=== PATIENT | female | born 1935 | race Caucasian/White ===

== ENCOUNTER 2016-04-15 12:54 | Emergency (ER) | payer BC ==
[~2016-04-15] VITALS: Ht 147.3 cm; Wt 66.0 kg
[~2016-04-15 12:54] MED LIST: ACET325T96 PO; ALPR-411 PO; CHOLCAP5 PO; ENAL10TA88 PO; EZET10TA63 PO; HYDR25TA4 PO; INSDGI SC; INSUINJ7 SC; ISOS60TA25 PO; ISR/5 SL; METO-551 PO; PLN5 PO
[2016-04-15 13:02] VITALS: TEMP 36.9; Ht 147.3 cm; Wt 66.0 kg
[2016-04-15] MEDS ORDERED: SODIUM CHLORIDE 0.9% 1000ML 250 ML IV STA (13:19)
[2016-04-15] MEDS ORDERED: SODIUM CHLORIDE 0.9% 1000ML 1,000 ML IV STA (13:19)
--- NOTE | 2016-04-15 13:22 | EMERGENCY ROOM VISIT NOTE ---
History Report prepared by Nayla: Tony Shipley Under the Supervision of: Dr. Damian Torres M.D. First contact with patient: 13:06 Chief Complaint: COUGH Stated Complaint: COUGH, ULCER ON LT FOOT, NOT EATING History of Present Illness The patient is an 81 year old female who presents to the Emergency Room with complaints of a persistent cough that started a few days ago. The patient had an ulcer taken off a toe on her left foot 4 days ago. She was put on Keflex, but the patient says that she has had trouble eating and the antibiotic is making her sick to her stomach. The patient's doctor that operated on her toe told the patient to come here to get her ulcer checked. The patient is concerned that her toe may be infected, causing her other symptoms, which include bad chills and achiness. She gets burning in her chest and throat when she coughs. The patient says her ulcer area is looking better but is still red. She denies any vomiting, diarrhea, fevers, chest pain, or urinary symptoms. The patient has been around a sick family member. Source of History: patient, family Onset: A few days ago Position: other (global - cough) Symptom Intensity: villalpando her chest and throat when she coughs Timing: other (persistent) Associated Symptoms: + chills, No chest pain, No diarrhea, No fevers, No urinary symptoms, No vomiting Note: Associated symptoms: Redness on left toe around area that was operated on. Achiness. Review of Systems See HPI for pertinent positives & negatives. A total of 10 systems reviewed and were otherwise negative. Past Medical & Surgical Medical Problems: (1) Benign hypertension (2) Coronary artery bypass grafting (3) Diabetes mellitus (4) Heart disease (5) Hyperlipidemia (6) Hysterectomy (7) Implantation of cardiac pacemaker (8) Toe surgery Old medical records were reviewed. Nurse's notes were reviewed and I agree with. Family History Family history omitted secondary to age. Social History Smoking Status: Never Smoker Alcohol Use: none Drug Use: none Marital Status: Housing Status: lives alone Occupation Status: retired Current/Historical Medications Scheduled Alprazolam (Xanax), 0.5 MG PO HS Aspirin (Aspirin Ec), 81 MG PO DAILY Cephalexin Monohydrate (Keflex), 500 MG PO BID Cholecalciferol (Vitamin D3), 5,000 UNITS PO DAILY Cyclosporine (Ophth) (Restasis), 1 DROP OPB BID Diclofenac Sodium (Topical) (Voltaren 1% Top Gel), 1 APPLN TOP BID Enalapril (Vasotec), 20 MG PO BID Ezetimibe (Zetia), 10 MG PO DAILY Felodipine (Felodipine ER), 5 MG PO DAILY Hydrochlorothiazide (Hctz), 25 MG PO DAILY Insulin Aspart (Novolog Flexpen), 65 UNITS SC UD Insulin Glargine (Toujeo Solostar), 60 UNITS SC DAILY Isosorbide Mononitrate Ext Rel (Imdur Ext Rel), 60 MG PO QAM Magnesium Oxide (Mag-Ox), 400 MG PO DAILY Metoprolol Tartrate (Lopressor) (Lopressor), 100 MG PO BID Ondasetron Odt (Zofran Odt), 4 MG SL Q6H Oseltamivir (Tamiflu), 75 MG PO BID Scheduled PRN Acetaminophen (Tylenol Extra Strength), 500-1,000 MG PO TID PRN for Pain Allergies Coded Allergies: Carbamazepine (Verified Allergy, Mild, 07/08/11) Macrolides (Verified Allergy, Mild, 07/08/11) Erythromycin (Verified Allergy, Unknown, ., 07/08/11) Physical Exam Vital Signs Date Time Temp Pulse Resp B/P Pulse Ox O2 Delivery O2 Flow Rate FiO2 04/15/16 15:55 64 16 154/60 95 04/15/16 14:48 61 14 167/80 04/15/16 13:43 Room Air 04/15/16 13:02 36.9 66 18 163/78 97 Room Air Physical Exam General: Well developed well nourished non ill appearing older female in no acute distress, breathing comfortably on room air. Normal speech HEENT: Normal cephalic atraumatic. Pupils are equal round and reactive to light. Sclera anicteric. Extraocular movements are intact. Oropharynx is pink with moist mucous membranes. No swelling of the mouth lips or tongue. Neck: Supple with a midline trachea. No meningeal signs or stiffness, no JVD or bruits. No Stridor. Chest: Clear to auscultation bilaterally. No wheezes or rhonchi. No increased work of breathing. Heart: regular rate and rhythm. Abdomen: Soft nontender, nondistended without rebound guarding or rigidity. Extremities: No cyanosis clubbing or edema. No calf tenderness or assymetry. Healing ulcer on tip of second toe, no drainage, minimal pink discoloration of toe only but not foot. Patient states looking much better than previous. Spine/Back. Non tender to palpation. No CVA tenderness Skin: Good turgor without rashes. Neurologic exam: Cranial nerves two through 12 are intact. Motor and sensation are intact and symmetrical throughout. Medical Decision & Procedures ER Provider Diagnostic Interpretation: X-ray results as stated below per interpretation by me and the radiologist: CHEST ONE VIEW PORTABLE CLINICAL HISTORY: Chest pain and. COMPARISON STUDY: Chest radiograph June 27, 2013. FINDINGS: A dual lead left pacemaker and median sternotomy wires are noted. Cardiomediastinal silhouette is stable. Lung volumes are diminished. No pneumothorax or pleural effusion is present. There is no evidence of pulmonary edema. Linear left lower lung opacity is suggestive of atelectasis. IMPRESSION: 1. No acute cardiopulmonary findings. 2. Linear left basilar opacity suggestive of atelectasis. 3. Diminished lung volumes. Electronically signed by: Chase Gage M.D. 04/15/2016 1:43 PM Dictated Date/Time: 04/15/2016 1:42 PM Laboratory Results 04/15/16 13:35 Red Blood Count 4.19, Mean Corpuscular Volume 88.1, Mean Corpuscular Hemoglobin 30.8, Mean Corpuscular Hemoglobin Concent 35.0, Mean Platelet Volume 9.2, Neutrophils (%) (Auto) 67.6, Lymphocytes (%) (Auto) 15.8, Monocytes (%) (Auto) 15.8, Eosinophils (%) (Auto) 0.3, Basophils (%) (Auto) 0.3, Neutrophils # (Auto ) 4.36, Lymphocytes # (Auto) 1.02, Monocytes # (Auto) 1.02, Eosinophils # (Auto ) 0.02, Basophils # (Auto) 0.02 04/15/16 13:35 Test 04/15/16 13:27 04/15/16 13:35 04/15/16 13:41 Influenza Type A Antigen POS for Influ A (NEG) Influenza Type B Antigen Neg for Influ B (NEG) White Blood Count 6.45 K/uL (4.8-10.8) Red Blood Count 4.19 M/uL (4.2-5.4) Hemoglobin 12.9 g/dL (12.0-16.0) Hematocrit 36.9 % (37-47) Mean Corpuscular Volume 88.1 fL (80-100) Mean Corpuscular Hemoglobin 30.8 pg (25-34) Mean Corpuscular Hemoglobin Concent 35.0 g/dl (32-36) Platelet Count 187 K/uL (130-400) Mean Platelet Volume 9.2 fL (7.4-10.4) Neutrophils (%) (Auto) 67.6 % Lymphocytes (%) (Auto) 15.8 % Monocytes (%) (Auto) 15.8 % Eosinophils (%) (Auto) 0.3 % Basophils (%) (Auto) 0.3 % Neutrophils # (Auto) 4.36 K/uL (1.4-6.5) Lymphocytes # (Auto) 1.02 K/uL (1.2-3.4) Monocytes # (Auto) 1.02 K/uL (0.11-0.59) Eosinophils # (Auto) 0.02 K/uL (0-0.5) Basophils # (Auto) 0.02 K/uL (0-0.2) RDW Standard Deviation 42.4 fL (36.4-46.3) RDW Coefficient of Variation 13.2 % (11.5-14.5) Immature Granulocyte % (Auto) 0.2 % Immature Granulocyte # (Auto) 0.01 K/uL (0.00-0.02) Red Blood Cell Morphology Unremarkable Anion Gap 11.0 mmol/L (3-11) Est Creatinine Clear Calc Drug Dose 18.4 ml/min Estimated GFR () 28.0 Estimated GFR (Non- 24.1 BUN/Creatinine Ratio 23.2 (10-20) Calcium Level 9.4 mg/dl (8.5-10.1) Total Bilirubin 0.4 mg/dl (0.2-1) Direct Bilirubin 0.1 mg/dl (0-0.2) Aspartate Amino Transf (AST/SGOT) 39 U/L (15-37) Alanine Aminotransferase (ALT/SGPT) 25 U/L (12-78) Alkaline Phosphatase 23 U/L (45-117) Total Protein 6.7 gm/dl (6.4-8.2) Albumin 3.4 gm/dl (3.4-5.0) Lipase 203 U/L (73-393) Bedside Troponin I 0.000 ng/ml (0-0.045) ZL-Jsp-R-Type Natriuretic Peptide 1703 pg/ml (0-1800) Laboratory studies as stated above per my review. Medications Administered Medications (Trade) Dose Ordered Sig/Haja Route Start Time Stop Time Status Last Admin Dose Admin Sodium Chloride 250 ml @ 999 mls/hr Q16M STAT IV 04/15/16 13:19 04/15/16 13:34 DC 04/15/16 13:42 999 MLS/HR Sodium Chloride (Nss 1000ml) 1,000 ml @ 100 mls/hr Q10H STAT IV 04/15/16 13:19 04/15/16 16:28 DC 04/15/16 13:54 100 MLS/HR Oseltamivir Phosphate (Tamiflu Cap) 75 mg NOW STAT PO 04/15/16 14:41 04/15/16 14:42 DC 04/15/16 14:48 75 MG ECG Indication: other (cough) Rate (beats per minute): 69 Rhythm: other (atrial paced ) Findings: no acute ischemic change, no ectopy, other (RBBB, lateral T-wave abnormality) Change: no significant change (compared to October 24 2013) ED Course 1309: Past medical records reviewed. The patient was evaluated in room C11B, and a complete history and physical examination were performed. 1319: Ordered NSS 1000 ml @ 100 mls/hr IV, NSS 250 ml @ 999 mls/hr IV. 1436: I reevaluated the patient and she is resting comfortably. 1441: Ordered Tamiflu 75 mg PO. 1452: I discussed the patient with Dr. Pate - Podiatry - he agrees with the plan. 1459: I reevaluated the patient and she is resting comfortably. The patient verbally expressed agreement and understanding of the treatment plan. The patient will be discharged. Medical Decision Differential diagnoses include: dehydration, infection, medication side effect, influenza, electrolyte or metabolic abnormality. This patient comes in as described above. She was placed in room C11. She is here after having cough, body aches, and nausea. She recently had surgery on her left toe ulcer. She's been on Keflex which she thinks is upsetting her stomach. On exam, the ulcer seems redone much better and there is no signs of cellulitis. She is resting comfortably. Chest x-ray was unremarkable and does not show any pneumonia or pneumothorax or CHF. Blood work was unremarkable. she's had no evidence of any diabetic emergency. She's had nothing to suggest sepsis. Her influenza did come back positive. I think that she does have flu on top of everything that has been going on lately. She may also have some stomach issues with antibiotics. She feels good and would like to go home. I did discuss this with Dr. Suarez, her phlebotomist medical lab assistant,and he agrees. She is going to see him on Sunday for recheck. I did start her on Tamiflu.first dose is given here as well as prescription. she's to rest and drink plenty fluids. I did give her some Zofran that she can use if needed for nausea to ensure that she is eating and keeping her medications down. She does feels strongly that she wants to go home. She should rest and drink plenty fluids return if :not tolerating fluids, worsening of symptoms, shortness of breath, any new problems concerns. The patient and her daughter happy with the plan and she was discharged home. Consults Time Called: [phone] Consulting Physician: Dr. Pate - Podiatrleah Returned Call: [phone] I discussed the patient with Dr. Herlinda Oh - he agrees with the plan. Impression Primary Impression: Influenza Additional Impression: Dehydration Scribe Attestation The scribe's documentation has been prepared under my direction and personally reviewed by me in its entirety. I confirm that the note above accurately reflects all work, treatment, procedures, and medical decision making performed by me. Departure Information Dispostion Home / Self-Care Prescriptions Oseltamivir (Tamiflu) 75 Mg Cap 75 MG PO BID, #10 CAP Prov: Damian Torres M.D. 04/15/16 Ondasetron Odt (ZOFRAN ODT) 4 Mg Tab 4 MG SL Q6H for Nausea, #15 TAB Prov: Damian Torres M.D. 04/15/16 Referrals RV. Noyola MD (PCP) Forms HOME CARE DOCUMENTATION FORM, IMPORTANT VISIT INFORMATION Patient Instructions A Signature Page, My [facility] Additional Instructions Rest. Drink plenty of fluids. Take food when you take your medications May use Zofran 4 mg under the tongue every 6 hours if needed for nausea or vomiting or upset stomach Use Tamiflu 75 mg twice a daymedication for the flu Continue use your Keflex. Return if: Worsening symptoms shortness of breath, not tolerating fluids, any problems with your surgical sites, any new problems or concerns. Follow-up with your doctor on Sunday for recheck, keep your appointment
[2016-04-15] MEDS ORDERED: ACET-1138 PO (13:41)
[2016-04-15] MEDS ORDERED: CYCL0.052 OPB (13:41)
[2016-04-15] MEDS ORDERED: ASPI81TA28 PO (13:41)
[2016-04-15] MEDS ORDERED: DICL1GEL12 TOP (13:41)
[2016-04-15] MEDS ORDERED: CEPH500C2 PO (13:41)
[2016-04-15] MEDS ORDERED: INSU1.2I SC (13:41)
[2016-04-15] MEDS ORDERED: MAGN400T5 PO (13:41)
[2016-04-15] MEDS ORDERED: METO100T14 PO (13:41)
[2016-04-15] MEDS ORDERED: NVLGI/PEN SC (13:41)
--- NOTE | 2016-04-15 13:45 | DIAGNOSTIC IMAGING REPORT ---
CHEST ONE VIEW PORTABLE CLINICAL HISTORY: Chest pain and. COMPARISON STUDY: Chest radiograph June 27, 2013. FINDINGS: A dual lead left pacemaker and median sternotomy wires are noted. Cardiomediastinal silhouette is stable. Lung volumes are diminished. No pneumothorax or pleural effusion is present. There is no evidence of pulmonary edema. Linear left lower lung opacity is suggestive of atelectasis. IMPRESSION: 1. No acute cardiopulmonary findings. 2. Linear left basilar opacity suggestive of atelectasis. 3. Diminished lung volumes. Electronically signed by: Chase Gage M.D. 04/15/2016 1:43 PM Dictated Date/Time: 04/15/2016 1:42 PM
[2016-04-15 13:50] LABS: HEMATOCRIT 36.9 % (37-47); MEAN CELL VOLUME 88.1 fL (80-100); MEAN CORPUSCULAR HEMOGLOBIN 30.8 pg (25-34); MEAN PLATELET VOLUME 9.2 fL (7.4-10.4); PLATELET COUNT 187 K/uL (130-400); RED BLOOD COUNT 4.19 M/uL (4.2-5.4); WHITE BLOOD COUNT 6.45 K/uL (4.8-10.8)
[2016-04-15 14:09] LABS: BASO % 0.3 %; BASO ABS # 0.02 K/uL (0-0.2); COMPLETE YES; EOS % 0.3 %; IG% 0.2 %; LYMPH % 15.8 %; LYMPH ABS # 1.02 K/uL (1.2-3.4); MONO % 15.8 %; NEUT % 67.6 %
[2016-04-15 14:10] LABS: BUN/CREATININE RATIO 23.2 (10-20); CALCIUM 9.4 mg/dl (8.5-10.1); CREATININE 1.9 mg/dl (0.60-1.20)
[2016-04-15] MEDS ORDERED: OSELTAMIVIR PHOSPHATE 75 MG CAP PO STA (14:41)
[2016-04-15] MEDS ORDERED: OSEL75CA12 PO (15:16)
[2016-04-15] MEDS ORDERED: ONDA4TAB10 SL (15:16)
[2016-04-15 15:55] VITALS: BP 154/60; PULSE 64; O2SAT 95
[2016-08-16] MEDS ORDERED: KFL500 PO (08:43)
[2016-08-16] MEDS ORDERED: INSU1.2I SC (08:43)
[2016-08-16] MEDS ORDERED: FELO5TAB PO (08:43)
[2016-08-16] MEDS ORDERED: ISOS60TA25 PO (08:43)
[2016-08-16] MEDS ORDERED: EZET10TA63 PO (08:43)
[2016-08-16] MEDS ORDERED: CYCL0.052 OP (08:43)
[2016-08-16] MEDS ORDERED: LPR100 PO (08:43)
[2016-08-16] MEDS ORDERED: ENAL1TAB31 PO (08:43)
[2016-08-16] MEDS ORDERED: CHOL500021 PO (08:43)
[2016-08-16] MEDS ORDERED: HYDR25TA4 PO (08:43)
[2016-08-16] MEDS ORDERED: FENO145T26 PO (08:43)
[2016-10-24] MEDS ORDERED: CPR/500 PO (13:52)
== END 2016-04-15 15:57 | disposition home or self-care (01) ==
LOC: C.EDB 12:56 → C.EDC 15:57
DX: J11.1 Influenza due to unidentified influenza virus with other respiratory manifestations (principal); E86.0 Dehydration; R05 Cough; R07.9 Chest pain, unspecified; I10 Essential (primary) hypertension; E11.621 Type 2 diabetes mellitus with foot ulcer; Z95.0 Presence of cardiac pacemaker; Z79.4 Long term (current) use of insulin; Z95.1 Presence of aortocoronary bypass graft

== ENCOUNTER → 2016-07-07 | Outpatient (CLI) | payer BC ==
[~2016-07-07] MED LIST changes: +ACET-1138 PO; -ACET325T96 PO; +ASPI81TA28 PO; +CEPH500C2 PO; +CHOL500021 PO; +CPR/500 PO; +CYCL0.052 OP; +CYCL0.052 OPB; +DICL1GEL12 TOP; +ENAL1TAB31 PO; +FELO5TAB PO; +FENO145T26 PO; -INSDGI SC; +INSU1.2I SC; -INSUINJ7 SC; -ISR/5 SL; +KFL500 PO; +LPR100 PO; +MAGN400T5 PO; -METO-551 PO; +METO100T14 PO; +NVLGI/PEN SC; +ONDA4TAB10 SL; +OSEL75CA12 PO
[2016-07-07 10:04] LABS: ESTIMATED AVERAGE GLUCOSE 183 mg/dl; HA1C FLAG Normal (Normal)
[2016-07-07 10:06] LABS: ALT/SGPT 21 U/L (12-78); AST/SGOT 18 U/L (15-37); BLOOD UREA NITROGEN 37 mg/dl (7-18); CALCIUM 9.3 mg/dl (8.5-10.1); CARBON DIOXIDE 27 mmol/L (21-32); CHLORIDE 107 mmol/L (98-107); GLUCOSE 107 mg/dl (70-99); POTASSIUM 3.9 mmol/L (3.5-5.1); SODIUM 140 mmol/L (136-145)
[2016-07-07 10:17] LABS: ALB/GLOB RATIO 1.1 (0.9-2); ALKALINE PHOSPHATASE 26 U/L (45-117)
[2016-07-07 10:46] LABS: RATIO 2866.7 mcg/mg (0-30.0)
== END | disposition home or self-care (01) ==
LOC: C.LAB1850 08:26
PROVIDERS: ATTEND Internal Medicine
DX: E55.9 Vitamin D deficiency, unspecified (principal); E11.40 Type 2 diabetes mellitus with diabetic neuropathy, unspecified; E83.42 Hypomagnesemia; E11.29 Type 2 diabetes mellitus with other diabetic kidney complication; F41.9 Anxiety disorder, unspecified; R80.9 Proteinuria, unspecified

== ENCOUNTER → 2016-07-17 | Outpatient (CLI) | payer BC ==
--- NOTE | 2016-07-17 16:24 | MAMMOGRAPHY REPORT ---
BILATERAL DIGITAL SCREENING MAMMOGRAM WITH CAD: 07/17/2016 CLINICAL HISTORY: Routine screening. Patient has no complaints. TECHNIQUE: Bilateral CC and MLO views were obtained. Current study was also evaluated with a Comput er Aided Detection (CAD) system. COMPARISON: Comparison is made to exams dated: 07/14/2015 mammogram, 07/07/2013 mammogram, 07/09/2014 ma mmogram, 07/04/2012 mammogram, 07/04/2011 mammogram, and 07/01/2010 mammogram - [facility] enter. BREAST COMPOSITION: The tissue of both breasts is extremely dense, which lowers the sensitivity of mammography. FINDINGS: There are numerous benign rim calcifications bilaterally and stable coarse heterogeneous m icrocalcifications in the right lower inner quadrant, that have been stable dating back to 2007. 2 stable metallic biopsy markers are also identified in the right lower inner middle one third of the breast. No new suspicious mass, architectural distortion or cluster of microcalcifications is seen. IMPRESSION: ACR BI-RADS CATEGORY 1: NEGATIVE There is no mammographic evidence of malignancy. A 1 year screening mammogram is recommended. The p atient will receive written notification of the results. Approximately 10% of breast cancers are not detected with mammography. A negative mammographic repor t should not delay biopsy if a clinically suggestive mass is present. Marli Garcia M.D. ay/:07/17/2016 13:28:55 Content Specialist: Senia LOVE)([place]), [facility] letter sent: Normal 1/2 BI-RADS Code: ACR BI-RADS Category 1: Negative
== END | disposition home or self-care (01) ==
LOC: C.MAMM 10:47
PROVIDERS: ATTEND Internal Medicine
DX: Z12.31 Encounter for screening mammogram for malignant neoplasm of breast (principal)

== ENCOUNTER → 2016-08-22 | Day surgery (SDC) | payer BC ==
[2016-08-16 08:30] VITALS: Ht 147.3 cm; Wt 66.8 kg
[2016-08-19 10:12] LABS: BASO % 1.2 %; BASO ABS # 0.09 K/uL (0-0.2); COMPLETE YES; EOS % 4.1 %; HEMATOCRIT 38.4 % (37-47); IG% 0.3 %; LYMPH % 24.5 %; LYMPH ABS # 1.91 K/uL (1.2-3.4); MEAN CELL VOLUME 87.9 fL (80-100); MEAN CORPUSCULAR HEMOGLOBIN 30.4 pg (25-34); MEAN CORPUSCULAR HGB CONC 34.6 g/dl (32-36); MEAN PLATELET VOLUME 9.1 fL (7.4-10.4); MONO % 7.1 %; NEUT % 62.8 %; PLATELET COUNT 238 K/uL (130-400); RED BLOOD COUNT 4.37 M/uL (4.2-5.4)
[~2016-08-22] VITALS: Ht 147.3 cm; Wt 66.8 kg
[~2016-08-22] MED LIST changes: +ATROPINE SULFATE 0.1 MG/ML 5ML SYR IV PRN; +BACITRACIN 50000 UNIT VIAL ONE; +BUPIVACAINE/EPINEPHRINE 0.5% MPF 1:200,000 30 ML VIAL ONE; +CEFAZOLIN SOD 1000MG/55 ML D5W IV ONE; -CEPH500C2 PO; -CHOLCAP5 PO; -CYCL0.052 OPB; -ENAL10TA88 PO; +EpHEDrine SULFATE INJ 50 MG/ML AMP IV PRN; +FENTANYL CITRATE INJ 50 MCG/1 ML 2 ML VIAL IV PRN; +FENTANYL CITRATE INJ 50 MCG/1 ML 2 ML VIAL ONE; +LACTATED RINGER'S 1000ML 1,000 ML IV SCH; +LIDOCAINE HCL 2% 2 ML VIAL (20MG/ML) ONE; +LIDOCAINE HCL 2% LOCAL 20 ML VIAL ONE; -MAGN400T5 PO; -METO100T14 PO; +MIDAZOLAM HCL 1 MG/ML 2ML VIAL ONE; -ONDA4TAB10 SL; +ONDANSETRON INJ 2 MG/ML 2 ML VIAL IV PRN; -OSEL75CA12 PO; +OXYCODONE/ACETAMINOPHEN 5-325 TAB PO PRN; -PLN5 PO; +PROMETHAZINE HCL INJ 6.25 MG in SODIUM CHLORIDE 0.9% 50ML 50 ML IV PRN; +PROPOFOL IV EMULSION 10 MG/ML 20 ML VIAL IV ONE; +SODIUM CHLORIDE 0.9% 1000ML 1,000 ML IV SCH; +SODIUM CHLORIDE 0.9% INJ 10 ML VIAL ONE
--- NOTE | 2016-08-22 06:48 | History & Physical Bridge - SC ---
H&P Re-Evaluation Bridge Note: I have examined the patient, reviewed the History & Physical and in the interval since the performance of the History & Physical I have NOT noted any changes of clinical significance. Discussed with patient and her daughter any questions concerns. She has not taken her oral antibiotic this AM, and I have ordered Ancef IV. She is a little nervous but otherwise OK.
--- NOTE | 2016-08-22 06:54 | Discharge Instructions-SurgCtr ---
Discharge Instructions Date of Service August 22, 2016. 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 Post Anesthesia Instructions: If you have had General Anesthesia or IV Sedation: * Do not drive today. * Resume driving when surgeon permits. * Do not make important decisions or sign legal documents today. * Call surgeon for: 1. Temperature elevations greater than 101 degrees F. 2. Uncontrollable pain. 3. Excessive bleeding. 4. Persistent nausea and vomiting. 5. Medication intolerance (nausea, vomiting or rash). * For nausea and vomiting use only clear liquids such as: tea, soda, bouillon until nausea subsides, then gradually increase diet as tolerated. * If you have any concerns or questions, call your surgeon's office. If physician is unavailable and it is an emergency, call 911 or go to the nearest emergency room. . Instructions / Follow-Up Instructions / Follow-Up Follow up with Dr Pate next week. See Dr Pate prior instructions provided in the office Diet Recommendations Home Diet: no limitations Fluid Restriction: None Procedures Procedures Performed: Amputation left second digit at the level of the first knuckle ( proximal interphalangeal joint ) Pending Studies Studies pending at discharge: no Medical Emergencies . Who to Call and When: Medical Emergencies: If at any time you feel your situation is an emergency, please call 911 immediately. . Non-Emergent Contact Non-Emergency issues call your: Surgeon Contact Number: [phone] Call Non-Emergent contact if: your pain is not controlled, your pain is unusual for you, you have any medication questions . . "Provider Documentation" section prepared by Xiang Pate. . [place] Drug Monitoring Program Search Results: patient reviewed within database (Rx Percocet provided in office last week and patient status checked at that time), no issues identified (completed in office last week when Rx provided)
--- NOTE | 2016-08-22 06:56 | [facility] Post Operative Brief Note ---
Immediate Operative Summary Operative Date August 22, 2016. Pre-Operative Diagnosis Chronic Diabetic Ulceration and pain, left second toe Post-Operative Diagnosis Same Procedure(s) Performed Amputation left second digit Surgeon Herlinda Stone Breaker Surgeon(s) None Estimated Blood Loss negligible Specimens left second toe at PIPJ disarticulation site Drains none Anesthesia Local block with IV sedatoin Complication(s) None Disposition
[2016-08-22 08:14] VITALS: TEMP 36.3
--- NOTE | 2016-08-22 08:50 | Anesthesia Progress Nt - [facility] ---
Anesthesia Post Op Note Date & Time August 22, 2016 at 08:50 Vital Signs Pain Intensity: 0 Vital Signs Past 12 Hours Date Time Temp Pulse Resp B/P Pulse Ox O2 Delivery O2 Flow Rate FiO2 08/22/16 08:14 36.3 60 16 150/73 99 Room Air 08/22/16 06:53 36.5 64 20 183/75 98 Room Air Notes Mental Status: alert / awake / arousable, participated in evaluation Pt Amnestic to Procedure: Yes Nausea / Vomiting: adequately controlled Pain: adequately controlled Airway Patency, RR, SpO2: stable & adequate BP & HR: stable & adequate Hydration State: stable & adequate Anesthetic Complications: no major complications apparent
[2016-08-22 09:10] VITALS: BP 164/74; PULSE 60; O2SAT 97
--- NOTE | 2016-08-22 09:44 | OPERATIVE REPORT ---
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 POSTOPERATIVE DIAGNOSIS: Same. PROCEDURE: Partial amputation, left second digit through proximal interphalangeal joint (disarticulation amputation). DESCRIPTION OF PROCEDURE: The patient was seen preoperatively with her daughter with no medical changes. She is nervous, but otherwise doing well and has all appropriate clearance. She did not take (correctly) her oral antibiotic this morning and therefore she is given 1 gram Ancef preoperatively and will resume oral antibiotics continuously postoperatively. The patient was taken to the operating room and no ankle tourniquet was used; the foot was identified, marked; prepped after I provided 8 mL of the 50:50 mixture of 0.5% Marcaine with epinephrine and 2% Xylocaine plain, which was infiltrated on a wide local anesthetic proximal block at the forefoot including the intermetatarsal spaces and the base of the second digit (anesthesia was IV sedation). Attention was directed towards the second digit and there are concerns with stress on closure to contracted vessels when a chronic and rigid nature of the distal interphalangeal joint contracture is alos present . The toe was marked with planning to try to have as much proximal healthy soft tissue material for closure as possible based on amputation level. Using a 10 blade, incisions were made plantarly, medially, laterally and dorsally to disarticulate the digit at the proximal interphalangeal joint level, with garth made at the middle phalanx level, and preservation of the long flexor and long extensor tendons. With amputation completed, the head of the proximal phalanx looked clean as did the base of the middle phalanx. The area was copiously irrigated with bacitracin and saline lavage. With inspection, the long plantar and long dorsal tendons were sutured together to cover over the head of the proximal phalanx and create a capsular closure with remaining joint soft tissue . Subcutaneous tissue was then closed also with 3-0 Vicryl and finally skin with 4-0 Ethilon all as interrupted suture stitches Estimated blood loss was negligible, but during intraoperative x-rays (showing clean removal), there was some slight bleeding ooze. This is anticipated in part due to her underlying vascular status and the use of the epinephrine. Dressings included Adaptic, 4 x 4 gauze, Nickie, Kerlix and an Biju bandage and patient is given a surgical shoe. While normally, the patient should not be bearing weight post op due to her advanced age.... Heel pressure will be allowed with her new surgical shoe The patient appeared to tolerate both the anesthesia and the procedure well and will be phoned contacted via the office later today and throughout the weekend and will be scheduled for approximately 1 week checkup. I attest to the content of the Intraoperative Record and any orders documented therein. Any exceptions are noted below. ROSALINDAD
--- NOTE | 2016-08-23 08:48 | DIAGNOSTIC IMAGING REPORT ---
LEFT SECOND TOE 2 VIEWS CLINICAL HISTORY: LEFT SECOND TOE(PROXIMAL INTER PHALANGEAL JOINT/AMPUTATION COMPARISON STUDY: None. FLUOROSCOPY TIME: 5 seconds. FINDINGS: 2 fluoroscopic spot images. There is a amputation at the PIP joint of the second toe. IMPRESSION: Fluoroscopy provided for amputation at the PIP joint of the left second toe. Electronically signed by: Ted Zelaya M.D. 08/23/2016 8:46 AM Dictated Date/Time: 08/23/2016 8:46 AM
== END | disposition home or self-care (01) ==
LOC: X.SURG 06:10
PROVIDERS: ATTEND Podiatrist Primary Podiatric Medicine
DX: L97.529 Non-pressure chronic ulcer of other part of left foot with unspecified severity (principal); M20.42 Other hammer toe(s) (acquired), left foot; E11.621 Type 2 diabetes mellitus with foot ulcer; I10 Essential (primary) hypertension; I25.10 Atherosclerotic heart disease of native coronary artery without angina pectoris; Z95.0 Presence of cardiac pacemaker; Z68.30 Body mass index [BMI] 30.0-30.9, adult; Z79.4 Long term (current) use of insulin; Z89.421 Acquired absence of other right toe(s); Z98.890 Other specified postprocedural states

== ENCOUNTER → 2016-10-02 | Outpatient (CLI) | payer BC ==
[~2016-10-02] MED LIST changes: -ATROPINE SULFATE 0.1 MG/ML 5ML SYR IV PRN; -BACITRACIN 50000 UNIT VIAL ONE; -BUPIVACAINE/EPINEPHRINE 0.5% MPF 1:200,000 30 ML VIAL ONE; -CEFAZOLIN SOD 1000MG/55 ML D5W IV ONE; -EpHEDrine SULFATE INJ 50 MG/ML AMP IV PRN; -FENTANYL CITRATE INJ 50 MCG/1 ML 2 ML VIAL IV PRN; -FENTANYL CITRATE INJ 50 MCG/1 ML 2 ML VIAL ONE; -LACTATED RINGER'S 1000ML 1,000 ML IV SCH; -LIDOCAINE HCL 2% 2 ML VIAL (20MG/ML) ONE; -LIDOCAINE HCL 2% LOCAL 20 ML VIAL ONE; -MIDAZOLAM HCL 1 MG/ML 2ML VIAL ONE; -ONDANSETRON INJ 2 MG/ML 2 ML VIAL IV PRN; -OXYCODONE/ACETAMINOPHEN 5-325 TAB PO PRN; -PROMETHAZINE HCL INJ 6.25 MG in SODIUM CHLORIDE 0.9% 50ML 50 ML IV PRN; -PROPOFOL IV EMULSION 10 MG/ML 20 ML VIAL IV ONE; -SODIUM CHLORIDE 0.9% 1000ML 1,000 ML IV SCH; -SODIUM CHLORIDE 0.9% INJ 10 ML VIAL ONE
== END | disposition home or self-care (01) ==
LOC: C.LABSPEC 17:15
PROVIDERS: ATTEND Podiatrist Primary Podiatric Medicine
DX: L08.9 Local infection of the skin and subcutaneous tissue, unspecified (principal); E11.622 Type 2 diabetes mellitus with other skin ulcer; L97.529 Non-pressure chronic ulcer of other part of left foot with unspecified severity

== ENCOUNTER → 2016-10-06 | Outpatient (CLI) | payer BC ==
--- NOTE | 2016-10-06 13:36 | DIAGNOSTIC IMAGING REPORT ---
LEFT TOE(S) MIN 2 VIEWS CLINICAL HISTORY: L08.9 Toe [id number] COMPARISON: None. DISCUSSION: Evidence for resection of the middle and distal phalanges of the second toe. Soft tissue edema about the distal phalanges of the third toe. No acute bony antibody. Cortical margins appear to be intact. IMPRESSION: Soft tissue edema overlying the left third toe. No evidence for osteomyelitis at the current time. Electronically signed by: Juan C Ruiz M.D. 10/06/2016 1:35 PM Dictated Date/Time: 10/06/2016 1:34 PM
[2016-10-06 14:45] LABS: BASO % 0.5 %; BASO ABS # 0.05 K/uL (0-0.2); COMPLETE YES; EOS % 1.8 %; HEMATOCRIT 33.6 % (37-47); IG% 0.4 %; LYMPH % 13.4 %; LYMPH ABS # 1.42 K/uL (1.2-3.4); MEAN CELL VOLUME 88.2 fL (80-100); MEAN CORPUSCULAR HEMOGLOBIN 30.7 pg (25-34); MEAN CORPUSCULAR HGB CONC 34.8 g/dl (32-36); MEAN PLATELET VOLUME 9.4 fL (7.4-10.4); MONO % 5.6 %; NEUT % 78.3 %; PLATELET COUNT 268 K/uL (130-400); RED BLOOD COUNT 3.81 M/uL (4.2-5.4); WHITE BLOOD COUNT 10.57 K/uL (4.8-10.8)
[2016-10-06 15:14] LABS: ALT/SGPT 21 U/L (12-78); AST/SGOT 19 U/L (15-37); BLOOD UREA NITROGEN 50 mg/dl (7-18); BUN/CREATININE RATIO 26.4 (10-20); CALCIUM 9.3 mg/dl (8.5-10.1); CARBON DIOXIDE 23 mmol/L (21-32); CHLORIDE 107 mmol/L (98-107); GLUCOSE 193 mg/dl (70-99); POTASSIUM 4.3 mmol/L (3.5-5.1); SODIUM 139 mmol/L (136-145)
[2016-10-06 15:15] LABS: ALB/GLOB RATIO 0.9 (0.9-2); ALKALINE PHOSPHATASE 28 U/L (45-117)
[2016-10-07 05:56] LABS: ESTIMATED AVERAGE GLUCOSE 183 mg/dl; HA1C FLAG Normal (Normal)
--- NOTE | 2016-10-11 13:27 | CODING QUERY MEDICAL NECESSITY ---
CQSUPPORTING DIAGNOSIS NEEDED A supporting diagnosis is required for the test/procedure performed on this patient in order for us to be reimbursed by the patient's insurance. Please provide a supporting diagnosis for the following test/procedure listed below next to the test name along with your signature. *If there is no additional diagnosis for this patient that would support the following test/procedure please document that below next to the test/procedure. Test(s)/Procedure(s) that require a supporting diagnosis: DOS 10/06/16 GLYCATED HEMOGLOBIN TEST Provider Signature: Date: Thank you Crissy Kothari Health Information Management Once completed, please kindly fax back to [phone] For questions please call [phone]
== END | disposition home or self-care (01) ==
LOC: C.RAD1850 12:37
PROVIDERS: ATTEND Internal Medicine
DX: L08.9 Local infection of the skin and subcutaneous tissue, unspecified (principal); R20.1 Hypoesthesia of skin; E11.40 Type 2 diabetes mellitus with diabetic neuropathy, unspecified

== ENCOUNTER → 2016-10-26 | Outpatient (CLI) | payer BC ==
[~2016-10-26] MED LIST changes: -KFL500 PO
== END | disposition home or self-care (01) ==
LOC: C.LABSPEC 14:27
PROVIDERS: ATTEND Internal Medicine Infectious Disease
DX: L08.9 Local infection of the skin and subcutaneous tissue, unspecified (principal)

== ENCOUNTER → 2016-11-03 | Outpatient (CLI) | payer BC ==
[2016-11-03 12:23] LABS: BASO % 1.3 %; BASO ABS # 0.11 K/uL (0-0.2); COMPLETE YES; EOS % 9.8 %; HEMATOCRIT 34.3 % (37-47); IG% 0.4 %; LYMPH % 17.3 %; LYMPH ABS # 1.42 K/uL (1.2-3.4); MEAN CELL VOLUME 88.4 fL (80-100); MEAN CORPUSCULAR HEMOGLOBIN 30.2 pg (25-34); MEAN CORPUSCULAR HGB CONC 34.1 g/dl (32-36); MEAN PLATELET VOLUME 9.1 fL (7.4-10.4); MONO % 10.5 %; NEUT % 60.7 %; PLATELET COUNT 290 K/uL (130-400); RED BLOOD COUNT 3.88 M/uL (4.2-5.4)
[2016-11-03 12:53] LABS: ALT/SGPT 19 U/L (12-78); AST/SGOT 17 U/L (15-37); BLOOD UREA NITROGEN 44 mg/dl (7-18); BUN/CREATININE RATIO 22.2 (10-20); CALCIUM 9.5 mg/dl (8.5-10.1); CARBON DIOXIDE 25 mmol/L (21-32); CHLORIDE 110 mmol/L (98-107); GLUCOSE 169 mg/dl (70-99); POTASSIUM 4.7 mmol/L (3.5-5.1); SODIUM 141 mmol/L (136-145)
[2016-11-03 12:56] LABS: ALB/GLOB RATIO 1.1 (0.9-2); ALKALINE PHOSPHATASE 25 U/L (45-117)
== END | disposition home or self-care (01) ==
LOC: C.LAB1850 10:30
PROVIDERS: ATTEND Podiatrist Primary Podiatric Medicine
DX: Z01.812 Encounter for preprocedural laboratory examination (principal)

== ENCOUNTER → 2016-11-08 | Day surgery (SDC) | payer BC ==
[2016-10-24 13:54] VITALS: Ht 147.3 cm; Wt 66.4 kg
[~2016-11-08] VITALS: Ht 147.3 cm; Wt 66.4 kg
[~2016-11-08] MED LIST changes: +ATROPINE SULFATE 0.1 MG/ML 5ML SYR IV PRN; +BACITRACIN 50000 UNIT VIAL ONE; +BUPIVACAINE 0.5 % 5 MG/1 ML PF 10ML VIAL ONE; +BUPIVACAINE/EPINEPHRINE 0.5% MPF 1:200,000 10 ML VIAL ONE; +EpHEDrine SULFATE INJ 50 MG/ML AMP IV PRN; +EpHEDrine SULFATE INJ 50 MG/ML AMP ONE; +FENTANYL CITRATE INJ 50 MCG/1 ML 2 ML VIAL IV PRN; +FENTANYL CITRATE INJ 50 MCG/1 ML 2 ML VIAL ONE; +LACTATED RINGER'S 1000ML 1,000 ML IV SCH; +LIDOCAINE HCL 2% 2 ML VIAL (20MG/ML) ONE; +LIDOCAINE HCL 2% LOCAL 20 ML VIAL ONE; +MIDAZOLAM HCL 1 MG/ML 2ML VIAL ONE; +ONDANSETRON INJ 2 MG/ML 2 ML VIAL IV PRN; +PROPOFOL IV EMULSION 10 MG/ML 20 ML VIAL IV ONE; +SODIUM CHLORIDE 0.9% 1000ML 1,000 ML IV SCH; +SODIUM CHLORIDE 0.9% INJ 10 ML VIAL ONE
--- NOTE | 2016-11-08 07:03 | History & Physical Bridge - SC ---
H&P Re-Evaluation Bridge Note: I have examined the patient, reviewed the History & Physical and in the interval since the performance of the History & Physical . Patient is feeling well, took her two AM meds without water , feeling fine and slept well and BS 81 this AM here. Daughter in room and will orange picker machine operator Cipro refill on the way home. No questions and will procedure with planned procedures No changes noted
--- NOTE | 2016-11-08 08:54 | [facility] Post Operative Brief Note ---
Immediate Operative Summary Operative Date Nov 08, 2016. Pre-Operative Diagnosis Diabetic Foot Ulcer Left 3rd Toe, Hammertoe Left 4th Toe, varus left fifth toe Post-Operative Diagnosis Same Procedure(s) Performed Left Third Toe Amputation at PIPJ, Left Fourth Toe Hammertoe Repair, Left Fifth Toe Arthroplasty Surgeon Dr. Pate Binder Sorter Surgeon(s) None Estimated Blood Loss 3 mL Findings infection appears lisited to distal left 3rd toe, distal to level of the DIPJ without ankle tournequet, limited bleeding Fluids (cc crystalloids) N/A Specimens A. Distal Amputation DIPJ Left 3rd Toe -- evaluate for osteomyelitis B. Middle Phalanx Left 3rd Toe C. Left 4th and 5th Head of Proximal Phalanges Drains none Anesthesia IV sedation with podiatric foot block Complication(s) None Disposition Recovery Room / PACU when stable patient to be discharged to home
[2016-11-08 08:57] VITALS: TEMP 36.2
--- NOTE | 2016-11-08 09:04 | Discharge Instructions-SurgCtr ---
Discharge Instructions Date of Service Nov 08, 2016. Visit Reason for Visit: Left Foot T2 Diabetic Ulcer Discharge Discharge Diagnosis / Problem: Diabetic ulceration left third distal toe , with digital deformities toes Discharge Goals Goal(s): Decrease discomfort, Improve function, Improve disease control, Prevent Disease Progression Medications Stopped Medications Name(s): none Restart Stopped Medication(s): restart all previous medications including Cipro Activity Recommendations Activity Limitations: per Instructions/Follow-up section Lifting Limitations: no more than 5 pounds Exercise/Sports Limitations: rest today, until after follow-up appointment Shower/Bathe: keep incision dry Driving or Machine Use: Weightbearing Status: Left partial, Left non-weightbearing Anesthesia . Post Anesthesia Instructions: If you have had General Anesthesia or IV Sedation: * Do not drive today. * Resume driving when surgeon permits. * Do not make important decisions or sign legal documents today. * Call surgeon for: 1. Temperature elevations greater than 101 degrees F. 2. Uncontrollable pain. 3. Excessive bleeding. 4. Persistent nausea and vomiting. 5. Medication intolerance (nausea, vomiting or rash). * For nausea and vomiting use only clear liquids such as: tea, soda, bouillon until nausea subsides, then gradually increase diet as tolerated. * If you have any concerns or questions, call your surgeon's office. If physician is unavailable and it is an emergency, call 911 or go to the nearest emergency room. . Instructions / Follow-Up Instructions / Follow-Up review post op instructions provided from office, and which surgical center may also provide first post op visit November 15 PAIN AND MEDICATIONS: * Following any surgery, it is common to expect varying degrees of pain. The amount of pain depends on the type of surgery and an individual person's pain tolerance. * Today, your surgery was performed with the ability for you to return home the same day. This means that the amount and type of pain you will experience can be managed by appropriate oral medications and post- operative care. * Typically, you will be given a narcotic (such as Percocet or Tylenol No. 3 Codeine) to take as needed every four to six hours for moderate to severe pain. You often will be given an anti-inflammatory medicine (like Motrin/Ibuprofen/ Naprosyn) which you take whether or not you think you need it. Each may have side effects, so please discuss these with us or your pharmacist if you have any questions. * Do not be afraid to take any pain pills as they are prescribed to you. * You will not become "addicted" to them during the initial post-operative days. In fact, the first evening and the next day (after surgery), it is better to take pain pills as prescribed when you first begin to notice initial discomfort, rather than waiting until the pain is severe. DIET: * As with most medications, it is better not to take pain medications "on an empty stomach". Also, the first day, it is better to eat smaller portions more often than huge meals (even if you feel starved since not eating since the previous night). * Drink plenty of fluids * NO ALCOHOL * It is best to avoid caffeine (in coffee and many sodas). * NO SMOKING. SPECIAL CARE INSTRUCTIONS: BANDAGE CARE: * Your bandages must be kept dry. During the first day(s), it is better not to attempt to bathe or shower since the bandage could accidentally become wet and that may lead to an infection. * Even after your first post-operative visit to the office (generally within a few days), you will still need to be careful to protect the bandages, especially if you are unsteady on the foot or if you are still not allowed to put full weight on the foot. * As a reminder, when using an ice pack, be certain it is in a leak-proof bag or a light paper towel covering. BLEEDING: * Bleeding through the bandages can be frightening, however, it is not uncommon. In fact, sometimes what appears to be blood is actually some of the medications, such as Betadine, that the gauze bandages were soaked in before they were placed on your foot. Even if there is truly bleeding, the gauze tends to absorb the blood and makes it appear to spread out and look worse than it actually is. * Nonetheless, report any bleeding to Dr. Pate's office when we call you the night of surgery and the following day. You can also karthikeyan the boundary with a pen to be able to report its progression. Do not remove your bandages on your own. SWELLING: * Swelling (edema) can tighten a bandage excessively. NEVER remove or cut at the dressing unless instructed to do so. Elevate the foot and knee and apply ice as directed (do not let leg hang down when seated). If you are in a car, it is helpful to be in the back seat with a seat belt on and the leg up on the seat. You should not be driving! MISCELLANEOUS INSTRUCTIONS: Always remember, if you have any questions, DO NOT HESITATE TO ASK staff where your surgery was performed or call my office . In order for us to evaluate your condition better, we ask that you please keep track of the following: * Please keep a list of your oral temperature and times that it was taken. Oral temperature can fluctuate a lot after surgery. We want to know whenever it is above 100.5 degrees F, but even then, there may not be a reason to worry, depending on the circumstances. Do not take your temperature after drinking hot or cold liquids. * Keep a list of the time and amount of medicines you took and any unusual symptoms. * Let us know if you have any problems with urinary output or constipation. * Write down when you think the "numbing medicine" wore off. * If you have any mishaps, write down the circumstances and if there is a change in the amount of pain you have experienced. FOLLOW UP VISIT: If not already scheduled, please call the office at to schedule a follow-up appointment. Diet Recommendations Home Diet: resume previous diet Fluid Restriction: None Procedures Procedures Performed: Left Third Toe Amputation at PIPJ, Left Fourth Toe Hammertoe Repair, Left Fifth Toe Arthroplasty Pending Studies Studies pending at discharge: no Work Instructions Return To Work: after follow-up Additional Instructions: not applicable School Instructions Additional Instructions: Not applicable Medical Emergencies . Who to Call and When: Medical Emergencies: If at any time you feel your situation is an emergency, please call 911 immediately. . Non-Emergent Contact Non-Emergency issues call your: Surgeon Contact Number: [phone] . . "Provider Documentation" section prepared by Xiang Pate. . [place] Drug Monitoring Program Search Results: see additional documentation (no new narcotic Rx provided at this time)
--- NOTE | 2016-11-08 09:29 | DIAGNOSTIC IMAGING REPORT ---
LEFT FOOT 2 VIEWS CLINICAL HISTORY: LEFT FIFTH TOE HAMMERTOE REPAIR, LEFT 5TH POSSIBLE ARTHROPLASTY COMPARISON STUDY: Left third toe 10/06/2016. FINDINGS: There is mild diffuse soft tissue swelling. No acute fractures identified. Cervical within the medial ankle. Degenerative/neuropathic changes are seen within the midfoot. Amputation at the PIP joints of the second and third toes. Deformity of the PIP joint of the fifth toe may be due to postoperative change. Of note, the fourth and fifth toes are suboptimally evaluated due to patient positioning. IMPRESSION: Interval partial amputation of the left third toe. Deformity at the PIP joint of the left fifth toe may be due to postoperative change. Electronically signed by: Ted Zelaya M.D. 11/08/2016 9:28 AM Dictated Date/Time: 11/08/2016 9:20 AM
--- NOTE | 2016-11-08 09:32 | Anesthesiology Progress Note ---
Anesthesia Post Op Note Date & Time Nov 08, 2016 at 09:31 Vital Signs Pain Intensity: 0 Vital Signs Past 12 Hours Date Time Temp Pulse Resp B/P (MAP) Pulse Ox O2 Delivery O2 Flow Rate FiO2 11/08/16 08:57 36.2 60 20 142/74 (96) 97 Room Air 11/08/16 06:29 36.6 61 16 189/78 (115) 99 Room Air Notes Mental Status: alert / awake / arousable, participated in evaluation Pt Amnestic to Procedure: Yes Nausea / Vomiting: adequately controlled Pain: adequately controlled Airway Patency, RR, SpO2: stable & adequate BP & HR: stable & adequate Hydration State: stable & adequate Anesthetic Complications: no major complications apparent
--- NOTE | 2016-11-08 09:44 | OPERATIVE REPORT ---
DATE OF OPERATION: 11/08/2016 PREOPERATIVE DIAGNOSES: 1. Nonhealing diabetic ulcer on the tip of the left third rigid hammertoe deformity. 2. Hammertoe, left fourth digit. 3. Adductovarus deformity left fifth toe. POSTOPERATIVE DIAGNOSIS: Same. PROCEDURES: 1. Amputation of the left third digit at the level of the distal interphalangeal joint. 2. Hammertoe repair, left fourth toe. 3. Arthroplasty, left fifth digit. SURGEON: Dr. Pate. OPERATION AND FINDINGS: DESCRIPTION OF PROCEDURE: The patient was seen preoperatively with her daughter and a bridge note confirms her stable presentation for today's procedure. She was brought into the operating room and placed supine on the operative table. Local anesthetic block of 12 mL 50:50 mixture of 0.5% Marcaine with epinephrine and 2% Xylocaine plain was used to affect anesthesia to the left forefoot . No tourniquet was used. After appropriate prep and drape, attention was directed to the third digit where first the toe was disarticulated at the level of the DIPJ and that specimen sent for pathology evaluation. Inspecting the digital length pattern it was determined best to also remove this digit at the PIPJ level so the middle phalanx was also removed. After copious irrigation with bacitracin and saline the digit was sutured with 3-0 Vicryl and 4-0 Ethilon. NOTE: After the third toe procedure the entire field was removed of instrumentations, redraped and reprepped so that when the procedure was done on the 4th and 5th digits this was starting a new without any chance of infection carry over on instruments or the field itself. HAMMERTOE REPAIR LEFT FOURTH DIGIT AND ARTHROPLASTY LEFT FIFTH DIGIT The incisions were first made over the fourth and fifth digits with the fifth digit being in an oblique fashion so that when the skin was closed the digit would be pulled more so out of varus. Deepening with a 15 blade joint capsule at the level of the pipj was identified. Collateral ligaments were incised and the head of the proximal phalanges of each delivered into the operating field. Using a small power saw, the heads of these two proximal phalanges were removed , and a rongeur was used to smooth the edges and again copiously irrigated with bacitracin in saline. Tendons were reapproximated with 3-0 Vicryl as well as capsular and subcutaneous tissue and skin was closed with 4-0 Ethilon. Bleeding was minimal, about 1 mL to each toe. Toe color remained good after suturing. Dressings included Adaptic, Kerlix and Nickie, Biju bandage and a new open toed surgical shoe. X-rays were taken post-procedure in recovery room to document the procedure and she appeared to tolerate the anesthesia and procedure well. I attest to the content of the Intraoperative Record and any orders documented therein. Any exceptions are noted below. ROSALINDAD
[2016-11-08 10:00] VITALS: BP 183/73; PULSE 60; O2SAT 95
== END | disposition home or self-care (01) ==
LOC: X.SURG 06:07
PROVIDERS: ATTEND Podiatrist Primary Podiatric Medicine
DX: E11.621 Type 2 diabetes mellitus with foot ulcer (principal); L97.529 Non-pressure chronic ulcer of other part of left foot with unspecified severity; L08.9 Local infection of the skin and subcutaneous tissue, unspecified; M20.42 Other hammer toe(s) (acquired), left foot

== ENCOUNTER → 2017-02-05 | Outpatient (CLI) | payer BC ==
[~2017-02-05] MED LIST changes: -ATROPINE SULFATE 0.1 MG/ML 5ML SYR IV PRN; -BACITRACIN 50000 UNIT VIAL ONE; -BUPIVACAINE 0.5 % 5 MG/1 ML PF 10ML VIAL ONE; -BUPIVACAINE/EPINEPHRINE 0.5% MPF 1:200,000 10 ML VIAL ONE; -EpHEDrine SULFATE INJ 50 MG/ML AMP IV PRN; -EpHEDrine SULFATE INJ 50 MG/ML AMP ONE; -FENTANYL CITRATE INJ 50 MCG/1 ML 2 ML VIAL IV PRN; -FENTANYL CITRATE INJ 50 MCG/1 ML 2 ML VIAL ONE; -LACTATED RINGER'S 1000ML 1,000 ML IV SCH; -LIDOCAINE HCL 2% 2 ML VIAL (20MG/ML) ONE; -LIDOCAINE HCL 2% LOCAL 20 ML VIAL ONE; -MIDAZOLAM HCL 1 MG/ML 2ML VIAL ONE; -ONDANSETRON INJ 2 MG/ML 2 ML VIAL IV PRN; -PROPOFOL IV EMULSION 10 MG/ML 20 ML VIAL IV ONE; -SODIUM CHLORIDE 0.9% 1000ML 1,000 ML IV SCH; -SODIUM CHLORIDE 0.9% INJ 10 ML VIAL ONE
[2017-02-05 14:01] LABS: BLOOD UREA NITROGEN 37 mg/dl (7-18); BUN/CREATININE RATIO 20.7 (10-20); CALCIUM 9.4 mg/dl (8.5-10.1); CARBON DIOXIDE 23 mmol/L (21-32); CHLORIDE 108 mmol/L (98-107); CREATININE 1.76 mg/dl (0.60-1.20); GLUCOSE 86 mg/dl (70-99); POTASSIUM 4.2 mmol/L (3.5-5.1); SODIUM 140 mmol/L (136-145)
== END | disposition home or self-care (01) ==
LOC: C.LAB1850 11:35
PROVIDERS: ATTEND Internal Medicine
DX: I25.10 Atherosclerotic heart disease of native coronary artery without angina pectoris (principal)

== ENCOUNTER 2017-04-04 19:27 | Inpatient (IN) | payer BC, OTHER ==
[~2017-04-04] VITALS: Ht 147.3 cm; Wt 72.6 kg
[~2017-04-04 19:27] MED LIST changes: -AMOX875T PO; -APR50 PO; -CEFD1CAP14 PO; -CEFU250T15 PO; -DOXY-300 PO; -FAMO1TAB47 PO; -FAMO20TA11 PO; -FELO10TA2 PO; -FLUO5CRE TOP; -FURO-85 PO; -HYDR-4717 PO; -INSDGIPEN SC; -INSU1.2I SQ; -IPRA-64 INH; -LABE200T5 PO; -LBT200 PO; -MELA1TAB5 PO; -NOVOLOG SQ; -NUTR-7 PO; -NVLGIPEN SC; -OMEG10002 PO; -OXYC-57 PO; -PLN5 PO; -SENNTAB23 PO; -SPIR25TA6 PO; -SRQ25 PO; -VANC1SUS PO; -VANC5CAP PO
[2017-04-04 20:30] LABS: BASO % 1.2 %; BASO ABS # 0.11 K/uL (0-0.2); EOS % 4.5 %; EOS ABS # 0.41 K/uL (0-0.5); HEMATOCRIT 31.9 % (37-47); HEMOGLOBIN 11.8 g/dL (12.0-16.0); IG# 0.02 K/uL (0.00-0.02); LYMPH % 22.3 %; LYMPH ABS # 2.05 K/uL (1.2-3.4); MEAN CELL VOLUME 85.5 fL (80-100); MEAN CORPUSCULAR HEMOGLOBIN 31.6 pg (25-34); MEAN PLATELET VOLUME 9.1 fL (7.4-10.4); MONO % 7.8 %; MONO ABS # 0.72 K/uL (0.11-0.59); NEUT ABS # 5.88 K/uL (1.4-6.5); PLATELET COUNT 227 K/uL (130-400); RED CELL DISTRIBUTION WIDTH CV 13.4 % (11.5-14.5); RED CELL DISTRIBUTION WIDTH SD 41.3 fL (36.4-46.3); WHITE BLOOD COUNT 9.19 K/uL (4.8-10.8)
[2017-04-04] MEDS ORDERED: FLUO5CRE TOP (20:32)
[2017-04-04] MEDS ORDERED: OMEG10002 PO (20:32)
[2017-04-04] MEDS ORDERED: FURO-85 PO (20:36)
[2017-04-04 20:50] LABS: ALBUMIN 3.1 gm/dl (3.4-5.0); ALT/SGPT 20 U/L (12-78); BLOOD UREA NITROGEN 61 mg/dl (7-18); CALCIUM 8.8 mg/dl (8.5-10.1); CARBON DIOXIDE 24 mmol/L (21-32); CREATININE 2.65 mg/dl (0.60-1.20); GLUCOSE 196 mg/dl (70-99); LIPASE 315 U/L (73-393); POTASSIUM 3.7 mmol/L (3.5-5.1); SODIUM 138 mmol/L (136-145)
[2017-04-04 20:53] LABS: ALKALINE PHOSPHATASE 48 U/L (45-117); AST/SGOT 20 U/L (15-37); TOTAL PROTEIN 6.9 gm/dl (6.4-8.2)
--- NOTE | 2017-04-04 21:10 | DIAGNOSTIC IMAGING REPORT ---
CT SCAN OF THE ABDOMEN AND PELVIS WITHOUT IV CONTRAST CLINICAL HISTORY: Left-sided abdominal pain. COMPARISON STUDY: Abdominal CT dated 10/23/2013. TECHNIQUE: CT scan of the abdomen and pelvis is performed from the lung bases to the proximal femora. Images are reviewed in the axial, sagittal, and coronal planes. IV contrast was not administered for this examination as per the referring clinician. Note that the examination was performed in suboptimal fashion without oral and IV contrast. A dose lowering technique was utilized adhering to the principles of ALARA. CT DOSE: 1102.03 mGy.cm FINDINGS: Lung bases: The heart is enlarged and without pericardial effusion. Pacemaker leads are noted. The patient is status post midline sternotomy. The coronary arteries are densely calcified. There is bibasilar scarring versus atelectasis. No airspace consolidation or pleural effusion is seen. Liver: The unenhanced liver is normal in size, contour, and attenuation. There is no intrahepatic biliary ductal dilatation. Gallbladder: There are numerous calcified gallstones. There is no CT evidence of acute cholecystitis. Spleen: Normal in size and attenuation. Pancreas: The unenhanced pancreas is moderately atrophic and grossly unremarkable. Adrenal glands: Unremarkable. Kidneys: The unenhanced kidneys demonstrate cortical atrophy and are without hydronephrosis. There are no renal calculi identified. A 1.9 cm cyst arises from the right kidney. Abdominal vasculature: The abdominal aorta is normal in course and caliber noting moderate to advanced atherosclerotic calcification. Bowel: There is moderate diverticulosis of the right colon without CT evidence of acute diverticulitis. No bowel obstruction is seen. The appendix is well-visualized and normal. Peritoneum: There is no intraperitoneal free air or abdominal ascites. There is a small fat-containing umbilical hernia. Foci of induration throughout the ventral abdominal fat are likely related to septation is injections. Lymphadenopathy: None. Pelvic viscera: The bladder is decompressed and a Dangelo catheter. Foci of intraluminal gas are likely related to instrumentation. Bladder wall thickening is questioned. The uterus is surgically absent. No adnexal lesion is seen. There is a small fat-containing right inguinal hernia. Findings suggest pelvic floor prolapse. Skeletal structures: The skeletal structures are osteopenic. There is moderate to advanced lumbar sacral spondylosis and scoliosis. A disc herniation is seen at L4-L5. No lytic or blastic lesions are seen. IMPRESSION: 1. Suboptimal examination without oral and IV contrast. 2. The bladder is decompressed around a Dangelo catheter. Foci of intraluminal gas are likely related to instrumentation. Mild bladder wall thickening is questioned. Correlation with urinalysis will be required. 3. Cholelithiasis without CT evidence of acute cholecystitis. 4. Cardiomegaly. 5. There is diverticulosis of the right colon without CT evidence of acute diverticulitis. 6. Additional findings as above. Electronically signed by: William Villanueva M.D. 04/04/2017 9:09 PM Dictated Date/Time: 04/04/2017 8:58 PM
--- NOTE | 2017-04-04 23:02 | History and Physical ---
History & Physical Date & Time of Service: Apr 04, 2017 at 23:02 Chief Complaint: Doc Reffered In For Abnormal Blood Work Primary Care Physician: RV. Noyola MD History of Present Illness Source: patient, family, hospital records The patient is an 82-year-old female who presents to the emergency department after being referred by her outpatient physician due to worsening laboratories associated with increasing diuretic use for lower extremity edema. She's had left back pain, chills, intermittent headaches, dyspnea on exertion and persistent swelling of her legs. She does note that her leg swelling has decreased since her last increase in diuretic. She reports difficulty urinating but does not have burning, frequency or blood in urine. Past Medical/Surgical History Medical Problems: (1) Benign hypertension Status: Chronic (2) Coronary artery bypass grafting Status: Resolved (3) Diabetes mellitus Status: Chronic (4) Heart disease Status: Chronic (5) Hyperlipidemia Status: Chronic (6) Hysterectomy Status: Resolved (7) Implantation of cardiac pacemaker Status: Resolved (8) Toe surgery Status: Resolved Family History Patient reports no known family medical history. Social History Smoking Status: Never Smoker Smokeless Tobacco Use: No Alcohol Use: none Drug Use: none Marital Status: Housing status: lives with family Occupational Status: retired Immunizations History of Influenza Vaccine: N/A History of Tetanus Vaccine?: Yes History of Pneumococcal: Yes History of Hepatitis B Vaccine: No Multi-Drug Resistant Organisms History of MDRO: No Allergies Coded Allergies: Carbamazepine (Verified Allergy, Intermediate, RASH, 04/04/17) Carvedilol (Verified Allergy, Intermediate, DIZZINESS, VISUAL DISTURBANCES , 04/04/17) Erythromycin (Verified Allergy, Intermediate, RASH, 04/04/17) Macrolides (Verified Allergy, Intermediate, RASH, 04/04/17) Statins (Verified Adverse Reaction, Intermediate, MUSCLE ACHES, 04/04/17) Home Medications Scheduled Alprazolam (Xanax), 0.5 MG PO HS Aspirin (Aspirin Ec), 81 MG PO QAM Cholecalciferol (Vitamin D3), 1 TAB PO QDL Cyclosporine (Ophth) (Restasis), 1 DROP OP BID Diclofenac Sodium (Topical) (Voltaren 1% Top Gel), 1 APPLN TOP BID Enalapril Maleate (Vasotec), 1 TAB PO BID Ezetimibe (Zetia), 10 MG PO QAM Felodipine (Plendil), 7.5 MG PO QAM Fluorouracil (Topical) (Efudex), 1 APPLN TOP BID Furosemide (Lasix), 20 MG PO DAILY Insulin Aspart (Novolog Flexpen), 1 DOSE SC UD Insulin Glargine (Toujeo Solostar), 62 UNITS SC QPM @ 2100 Isosorbide Mononitrate Ext Rel (Imdur Ext Rel), 60 MG PO QAM Metoprolol Tartrate (Metoprolol Tartrate), 1 TAB PO BID [place]-3 Fatty Acids (Fish Oil), 1,000 MG PO DAILY Scheduled PRN Acetaminophen (Tylenol Extra Strength), 500-1,000 MG PO TID PRN for Pain Review of Systems The patient denies chest pain, palpitations, cough, vision change, hearing change, sore throat, fevers, chills, sweats, weight change, fatigue, nausea, vomiting, diarrhea or constipation, blood in stool, lightheadedness, dizziness, loss of consciousness, rash, abnormal bruising or bleeding, imbalance, focal weakness, numbness or tingling in arms or legs, generalized arthralgias or myalgias, neck pain, or night sweats. The review of systems is otherwise negative other than for that already noted above, and at least 10 systems have been reviewed. Physical Exam Vital Signs Date Time Temp Pulse Resp B/P (MAP) Pulse Ox O2 Delivery O2 Flow Rate FiO2 04/04/17 21:45 60 184/79 97 Room Air 04/04/17 19:33 36.6 65 18 212/75 97 The patient is awake, well-developed and adequately nourished, alert and oriented 3, normocephalic and atraumatic, lying in bed and in no acute distress. HEENT--PERRL, EOMI, mucous membranes and oropharynx dry. Neck--supple, no JVD or bruits, thyroid normal, trachea midline, no adenopathy. Heart--normal S1 and S2, no extra beats, no murmurs, rubs or gallops. Lungs--few crackles at the bases bilaterally. No respiratory distress, no accessory muscle use. Abdomen--normal bowel sounds and soft, nontender and nondistended, no hernias or masses, no organomegaly. Extremities--no cyanosis, clubbing. There is bilateral pretibial and pedal 1+ pitting edema. There are good distal pulses b/l. Dermatologic--normal skin turgor, normal color, warm and dry, no abnormal lymph nodes, no rash. Neurologic--cranial nerves II through XII grossly intact. Rheumatologic--normal range of motion. Psychiatric--normal affect. Diagnostics Laboratory Results Results Past 24 Hours Test 04/04/17 20:04 04/04/17 20:15 Range/Units White Blood Count 9.19 4.8-10.8 K/uL Red Blood Count 3.73 4.2-5.4 M/uL Hemoglobin 11.8 12.0-16.0 g/dL Hematocrit 31.9 37-47 % Mean Corpuscular Volume 85.5 80-100 fL Mean Corpuscular Hemoglobin 31.6 25-34 pg Mean Corpuscular Hemoglobin Concent 37.0 32-36 g/dl Platelet Count 227 130-400 K/uL Mean Platelet Volume 9.1 7.4-10.4 fL Neutrophils (%) (Auto) 64.0 % Lymphocytes (%) (Auto) 22.3 % Monocytes (%) (Auto) 7.8 % Eosinophils (%) (Auto) 4.5 % Basophils (%) (Auto) 1.2 % Neutrophils # (Auto) 5.88 1.4-6.5 K/uL Lymphocytes # (Auto) 2.05 1.2-3.4 K/uL Monocytes # (Auto) 0.72 0.11-0.59 K/uL Eosinophils # (Auto) 0.41 0-0.5 K/uL Basophils # (Auto) 0.11 0-0.2 K/uL RDW Standard Deviation 41.3 36.4-46.3 fL RDW Coefficient of Variation 13.4 11.5-14.5 % Immature Granulocyte % (Auto) 0.2 % Immature Granulocyte # (Auto) 0.02 0.00-0.02 K/uL Sodium Level 138 136-145 mmol/L Potassium Level 3.7 3.5-5.1 mmol/L Chloride Level 105 98-107 mmol/L Carbon Dioxide Level 24 21-32 mmol/L Anion Gap 8.0 3-11 mmol/L Blood Urea Nitrogen 61 7-18 mg/dl Creatinine 2.65 0.60-1.20 mg/dl Est Creatinine Clear Calc Drug Dose 13.5 ml/min Estimated GFR () 18.6 Estimated GFR (Non- 16.0 BUN/Creatinine Ratio 23.0 10-20 Random Glucose 196 70-99 mg/dl Calcium Level 8.8 8.5-10.1 mg/dl Total Bilirubin 0.3 0.2-1 mg/dl Direct Bilirubin < 0.1 0-0.2 mg/dl Aspartate Amino Transf (AST/SGOT) 20 15-37 U/L Alanine Aminotransferase (ALT/SGPT) 20 12-78 U/L Alkaline Phosphatase 48 45-117 U/L Total Protein 6.9 6.4-8.2 gm/dl Albumin 3.1 3.4-5.0 gm/dl Lipase 315 73-393 U/L Urine Color YELLOW Urine Appearance CLEAR CLEAR Urine pH 6.0 4.5-7.5 Urine Specific [place] 1.015 1.000-1.030 Urine Protein 4+ NEG Urine Glucose (UA) 1+ NEG Urine Ketones NEG NEG Urine Occult Blood TRACE NEG Urine Nitrite NEG NEG Urine Bilirubin NEG NEG Urine Urobilinogen NEG NEG Urine Leukocyte Esterase NEG NEG Urine WBC (Auto) 1-5 0-5 /hpf Urine RBC (Auto) 0-4 0-4 /hpf Urine Hyaline Casts (Auto) 1-5 0-5 /lpf Urine Epithelial Cells (Auto) >30 0-5 /lpf Urine Bacteria (Auto) NEG NEG Urine Renal Epithelial Cells 0-5 /lpf Microbiology Results 04/04/17 Blood Culture, Received Pending 04/04/17 Blood Culture, Received Pending 04/04/17 Urine Culture, Received Pending Diagnostic Radiology Patient Name: DIEGO LUGO Unit Number: [id number] Dictated: 04/04/172057 Transcribed: 04/04/172057 EV Printed Date/Time: [~ rep prt dt]/[~ rep prt tm] [~ rep ct labl] - [~ rep ct ivnm] [facility] [place] [address] Dictated: 04/04/172057 Transcribed: 04/04/172057 EV Printed Date/Time: [~ rep prt dt]/[~ rep prt tm] [~ rep ct labl] - [~ rep ct ivnm] [~ rep ct add3]] CT SCAN OF THE ABDOMEN AND PELVIS WITHOUT IV CONTRAST CLINICAL HISTORY: Left-sided abdominal pain. COMPARISON STUDY: Abdominal CT dated 10/23/2013. TECHNIQUE: CT scan of the abdomen and pelvis is performed from the lung bases to the proximal femora. Images are reviewed in the axial, sagittal, and coronal planes. IV contrast was not administered for this examination as per the referring clinician. Note that the examination was performed in suboptimal fashion without oral and IV contrast. A dose lowering technique was utilized adhering to the principles of ALARA. CT DOSE: 1102.03 mGy.cm FINDINGS: Lung bases: The heart is enlarged and without pericardial effusion. Pacemaker leads are noted. The patient is status post midline sternotomy. The coronary arteries are densely calcified. There is bibasilar scarring versus atelectasis. No airspace consolidation or pleural effusion is seen. Liver: The unenhanced liver is normal in size, contour, and attenuation. There is no intrahepatic biliary ductal dilatation. Gallbladder: There are numerous calcified gallstones. There is no CT evidence of acute cholecystitis. Spleen: Normal in size and attenuation. Pancreas: The unenhanced pancreas is moderately atrophic and grossly unremarkable. Adrenal glands: Unremarkable. Kidneys: The unenhanced kidneys demonstrate cortical atrophy and are without hydronephrosis. There are no renal calculi identified. A 1.9 cm cyst arises from the right kidney. Abdominal vasculature: The abdominal aorta is normal in course and caliber noting moderate to advanced atherosclerotic calcification. Bowel: There is moderate diverticulosis of the right colon without CT evidence of acute diverticulitis. No bowel obstruction is seen. The appendix is well-visualized and normal. Peritoneum: There is no intraperitoneal free air or abdominal ascites. There is a small fat-containing umbilical hernia. Foci of induration throughout the ventral abdominal fat are likely related to septation is injections. Lymphadenopathy: None. Pelvic viscera: The bladder is decompressed and a Dangelo catheter. Foci of intraluminal gas are likely related to instrumentation. Bladder wall thickening is questioned. The uterus is surgically absent. No adnexal lesion is seen. There is a small fat-containing right inguinal hernia. Findings suggest pelvic floor prolapse. Skeletal structures: The skeletal structures are osteopenic. There is moderate to advanced lumbar sacral spondylosis and scoliosis. A disc herniation is seen at L4-L5. No lytic or blastic lesions are seen. IMPRESSION: 1. Suboptimal examination without oral and IV contrast. 2. The bladder is decompressed around a Dangelo catheter. Foci of intraluminal gas are likely related to instrumentation. Mild bladder wall thickening is questioned. Correlation with urinalysis will be required. 3. Cholelithiasis without CT evidence of acute cholecystitis. 4. Cardiomegaly. 5. There is diverticulosis of the right colon without CT evidence of acute diverticulitis. 6. Additional findings as above. Electronically signed by: William Villanueva M.D. 04/04/2017 9:09 PM Dictated Date/Time: 04/04/2017 8:58 PM The status of this report is Signed. Draft = Not yet reviewed or approved by Radiologist. Signed = Reviewed and approved by Radiologist. <AttendingPhy></AttendingPhy> <FamilyPhy>RV. Noyola MD</ FamilyPhy> <PrimaryPhy>RV. Noyola MD</PrimaryPhy> <UnitNumber> [id number]</UnitNumber> <VisitNumber>[id number]</VisitNumber> <PatientName> DIEGO LUGO</PatientName> <DateOfBirth>1935</DateOfBirth> <Location>[facility] </Location> <ServiceDate>04/04/17</ServiceDate> <MNE>ESINDI</MNE> <OrderingPhy> Ned Paiz MD</OrderingPhy> <OrderingPhyMNE>f rep ord dr berger</ OrderingPhyMNE> <DictatingPhyMNE>f rep dict dr berger</DictatingPhyMNE> <CCListMNE> f rep ct marcuse</CCListMNE> <AdmittingPhyMNE>f pt admit dr berger</AdmittingPhyMNE> < AttendingPhyMNE>f pt attend dr berger</AttendingPhyMNE> <ConsultingPhyMNE>f pt consult dr berger</ConsultingPhyMNE> <FamilyPhyMNE>f pt fam dr berger</FamilyPhyMNE> <OtherPhyMNE>f pt other dr berger</OtherPhyMNE> < PrimaryPhyMNE>f pt prim care dr berger</PrimaryPhyMNE> <ReferringPhyMNE>f pt referring dr berger</ReferringPhyMNE> Impression Assessment and Plan Worsening lower extremity edema/acute on chronic kidney disease stage III-- Differential includes systolic heart dysfunction, hypoalbuminemia, excess salt intake, worsening CVI. 4+ protein in urine, we'll therefore 24-hour urine for protein to assess for possible nephrotic syndrome No significant abnormality noted on CT CAD/hypertension/CABG/pacer implantation-- The patient will be admitted to telemetry for serial cardiac enzymes, cardiac rhythm monitoring and a 2-D echocardiogram with Dopplers. Continue aspirin 81 mg every morning and metoprolol tartrate 100 mg by mouth twice a day Hold enalapril 20 mg by mouth twice a day Increase felodipine 7.5-10 mg every morning Increase isosorbide mononitrate extended release 60 mg every morning to 60 mg twice a day Temporarily hold furosemide 20 mg by mouth daily and keep legs elevated. Follow serial CBC with differential, BMP and magnesium levels Diabetes mellitus-- Convert Toujeo to Lantus insulin same dose of 62 units subcutaneous at [address] Accu-Cheks before meals and at bedtime with NovoLog coverage per scale is Hyperlipidemia-- Continue Zetia 10 mg by mouth every morning Insomnia-- Continue alprazolam 0.5 mg by mouth at bedtime Level of Care Telemetry Advanced Directives Existing Advance Directive: No Existing Living Will: No Existing Power of Senior Program Analyst: No Resuscitation Status FULL RESUSCITATION VTE Prophylaxis VTE Risk Assessment Done? Y/N: Yes Given or contraindicated: Enoxaparin (Lovenox)SQ
[2017-04-05] VITALS (10 sets, daily range): BP systolic 144–235; BP diastolic 48–85; PULSE 60–68; TEMP 36.4–37.1; O2SAT 94–96; Ht 147.3 cm; Wt 72.6 kg
[2017-04-05] MEDS ORDERED: ISOSORBIDE MONONITRATE 30 MG TABCR PO ONE (00:22)
[2017-04-05] MEDS ORDERED: ONDANSETRON 8MG OD TAB PO PRN (00:30)
[2017-04-05] MEDS ORDERED: GLUCOSE 10 TABS/TUBE PO PRN (00:30)
[2017-04-05] MEDS ORDERED: DEXTROSE 50% 50 ML SYR IV PRN (00:30)
[2017-04-05] MEDS ORDERED: ACETAMINOPHEN 325 MG TAB PO PRN (00:30)
[2017-04-05] MEDS ORDERED: GLUCAGON FOR INJ 1 MG VIAL SQ PRN (00:30)
[2017-04-05] MEDS ORDERED: GLUCOSE 40% GEL 15 GM TUBE PO PRN (00:30)
--- NOTE | 2017-04-05 00:30 | EMERGENCY ROOM VISIT NOTE ---
History Report prepared by Nayla: Rodolfo Pham Under the Supervision of: Dr. Ned Paiz M.D. First contact with patient: 19:40 Chief Complaint: ABNORMAL LABS Stated Complaint: DOC REFFERED IN FOR ABNORMAL BLOOD WORK History of Present Illness The patient is a 82 year old female who presents to the Emergency Room with complaints of constant abnormal labs that started prior to arrival. The patient states that she was taking water pills, but her doctor noticed that her kidney function was off. She states that her water pill was changed because of the kidney effects. The patient states that since she started to take her water pills, she has been experiencing left back pain. She states that she has been experiencing chills and an intermittent headache. She reports that she has also been experiencing shortness of breath upon exertion and intermittently after waking up in the morning. The patient reports that she noticed her legs and have been more swollen, but reports that the swelling has mildly decreased after increasing her dose. She states that she noticed she has been off balance lately and has been experiencing a headache. The patient states that she has been having trouble urinating but denies a burning sensation. She states that she went to her doctor today who did blood work. The patient states that her kidney function level was 2.43 today, but she usually has a 1.6-1.9 normal level. She denies any fevers, chest pain, change in appetite, trouble with lying flat, syncope symptoms. The patient reports a history of a pacemaker and bypass that occurred in 1992. Source of History: patient Onset: prior to arrival Position: other (global) Quality: other (2.43 kidney function) Timing: constant Associated Symptoms: + chills, + headache, + SOB, + back pain, + urinary symptoms, No LOC, No fevers, No chest pain Review of Systems See HPI for pertinent positives and negatives. A total of ten systems were reviewed and were otherwise negative. Past Medical & Surgical Medical Problems: (1) Benign hypertension (2) Coronary artery bypass grafting (3) Diabetes mellitus (4) Heart disease (5) Hyperlipidemia (6) Hysterectomy (7) Implantation of cardiac pacemaker (8) Toe surgery Family History Patient reports no known family medical history. Social History Smoking Status: Never Smoker Alcohol Use: none Drug Use: none Marital Status: Housing Status: lives alone Occupation Status: retired Current/Historical Medications Scheduled Alprazolam (Xanax), 0.5 MG PO HS Aspirin (Aspirin Ec), 81 MG PO QAM Cholecalciferol (Vitamin D3), 1 TAB PO QDL Cyclosporine (Ophth) (Restasis), 1 DROP OP BID Diclofenac Sodium (Topical) (Voltaren 1% Top Gel), 1 APPLN TOP BID Enalapril Maleate (Vasotec), 1 TAB PO BID Ezetimibe (Zetia), 10 MG PO QAM Felodipine (Plendil), 7.5 MG PO QAM Fluorouracil (Topical) (Efudex), 1 APPLN TOP BID Furosemide (Lasix), 20 MG PO DAILY Insulin Aspart (Novolog Flexpen), 1 DOSE SC UD Insulin Glargine (Toujeo Solostar), 62 UNITS SC QPM @ 2100 Isosorbide Mononitrate Ext Rel (Imdur Ext Rel), 60 MG PO QAM Metoprolol Tartrate (Metoprolol Tartrate), 1 TAB PO BID [place]-3 Fatty Acids (Fish Oil), 1,000 MG PO DAILY Scheduled PRN Acetaminophen (Tylenol Extra Strength), 500-1,000 MG PO TID PRN for Pain Allergies Coded Allergies: Carbamazepine (Verified Allergy, Intermediate, RASH, 04/04/17) Carvedilol (Verified Allergy, Intermediate, DIZZINESS, VISUAL DISTURBANCES , 04/04/17) Erythromycin (Verified Allergy, Intermediate, RASH, 04/04/17) Macrolides (Verified Allergy, Intermediate, RASH, 04/04/17) Statins (Verified Adverse Reaction, Intermediate, MUSCLE ACHES, 04/04/17) Physical Exam Vital Signs Date Time Temp Pulse Resp B/P (MAP) Pulse Ox O2 Delivery O2 Flow Rate FiO2 04/04/17 23:47 59 194/119 97 Room Air 210/105 215/78 04/04/17 21:45 60 184/79 97 Room Air 04/04/17 19:33 36.6 65 18 212/75 97 Physical Exam GENERAL: Awake, alert, well-appearing, in no distress HENT: Normocephalic, atraumatic. Oropharynx unremarkable. EYES: Normal conjunctiva. Sclera non-icteric. NECK: Supple. No nuchal rigidity. FROM. No JVD. RESPIRATORY: Clear to auscultation. CARDIAC: Regular rate, normal rhythm. Extremities warm and well perfused. Pulses equal. ABDOMEN: Soft, non-distended. No tenderness to palpation. No rebound or guarding. No masses. RECTAL: Deferred. MUSCULOSKELETAL: Chest examination reveals no tenderness. No joint edema. LOWER EXTREMITIES: Calves are equal size bilaterally and non-tender. 1+ edema. No discoloration. NEURO: Normal sensorium. No sensory or motor deficits noted. SKIN: No rash or jaundice noted. Medical Decision & Procedures ER Provider Diagnostic Interpretation: Radiology results as stated below per my review and radiologist interpretation CT SCAN OF THE ABDOMEN AND PELVIS WITHOUT IV CONTRAST CLINICAL HISTORY: Left-sided abdominal pain. COMPARISON STUDY: Abdominal CT dated 10/23/2013. TECHNIQUE: CT scan of the abdomen and pelvis is performed from the lung bases to the proximal femora. Images are reviewed in the axial, sagittal, and coronal planes. IV contrast was not administered for this examination as per the referring clinician. Note that the examination was performed in suboptimal fashion without oral and IV contrast. A dose lowering technique was utilized adhering to the principles of ALARA. CT DOSE: 1102.03 mGy.cm FINDINGS: Lung bases: The heart is enlarged and without pericardial effusion. Pacemaker leads are noted. The patient is status post midline sternotomy. The coronary arteries are densely calcified. There is bibasilar scarring versus atelectasis. No airspace consolidation or pleural effusion is seen. Liver: The unenhanced liver is normal in size, contour, and attenuation. There is no intrahepatic biliary ductal dilatation. Gallbladder: There are numerous calcified gallstones. There is no CT evidence of acute cholecystitis. Spleen: Normal in size and attenuation. Pancreas: The unenhanced pancreas is moderately atrophic and grossly unremarkable. Adrenal glands: Unremarkable. Kidneys: The unenhanced kidneys demonstrate cortical atrophy and are without hydronephrosis. There are no renal calculi identified. A 1.9 cm cyst arises from the right kidney. Abdominal vasculature: The abdominal aorta is normal in course and caliber noting moderate to advanced atherosclerotic calcification. Bowel: There is moderate diverticulosis of the right colon without CT evidence of acute diverticulitis. No bowel obstruction is seen. The appendix is well-visualized and normal. Peritoneum: There is no intraperitoneal free air or abdominal ascites. There is a small fat-containing umbilical hernia. Foci of induration throughout the ventral abdominal fat are likely related to septation is injections. Lymphadenopathy: None. Pelvic viscera: The bladder is decompressed and a Dangelo catheter. Foci of intraluminal gas are likely related to instrumentation. Bladder wall thickening is questioned. The uterus is surgically absent. No adnexal lesion is seen. There is a small fat-containing right inguinal hernia. Findings suggest pelvic floor prolapse. Skeletal structures: The skeletal structures are osteopenic. There is moderate to advanced lumbar sacral spondylosis and scoliosis. A disc herniation is seen at L4-L5. No lytic or blastic lesions are seen. IMPRESSION: 1. Suboptimal examination without oral and IV contrast. 2. The bladder is decompressed around a Dangelo catheter. Foci of intraluminal gas are likely related to instrumentation. Mild bladder wall thickening is questioned. Correlation with urinalysis will be required. 3. Cholelithiasis without CT evidence of acute cholecystitis. 4. Cardiomegaly. 5. There is diverticulosis of the right colon without CT evidence of acute diverticulitis. 6. Additional findings as above. Electronically signed by: William Villanueva M.D. 04/04/2017 9:09 PM Dictated Date/Time: 04/04/2017 8:58 PM Laboratory Results 04/04/17 20:04 Red Blood Count 3.73, Mean Corpuscular Volume 85.5, Mean Corpuscular Hemoglobin 31.6, Mean Corpuscular Hemoglobin Concent 37.0, Mean Platelet Volume 9.1, Neutrophils (%) (Auto) 64.0, Lymphocytes (%) (Auto) 22.3, Monocytes (%) (Auto) 7.8, Eosinophils (%) (Auto) 4.5, Basophils (%) (Auto) 1.2, Neutrophils # (Auto) 5.88, Lymphocytes # (Auto) 2.05, Monocytes # (Auto) 0.72, Eosinophils # (Auto) 0.41, Basophils # (Auto) 0.11 04/04/17 20:04 Test 04/04/17 20:04 04/04/17 20:15 White Blood Count 9.19 K/uL (4.8-10.8) Red Blood Count 3.73 M/uL (4.2-5.4) Hemoglobin 11.8 g/dL (12.0-16.0) Hematocrit 31.9 % (37-47) Mean Corpuscular Volume 85.5 fL (80-100) Mean Corpuscular Hemoglobin 31.6 pg (25-34) Mean Corpuscular Hemoglobin Concent 37.0 g/dl (32-36) Platelet Count 227 K/uL (130-400) Mean Platelet Volume 9.1 fL (7.4-10.4) Neutrophils (%) (Auto) 64.0 % Lymphocytes (%) (Auto) 22.3 % Monocytes (%) (Auto) 7.8 % Eosinophils (%) (Auto) 4.5 % Basophils (%) (Auto) 1.2 % Neutrophils # (Auto) 5.88 K/uL (1.4-6.5) Lymphocytes # (Auto) 2.05 K/uL (1.2-3.4) Monocytes # (Auto) 0.72 K/uL (0.11-0.59) Eosinophils # (Auto) 0.41 K/uL (0-0.5) Basophils # (Auto) 0.11 K/uL (0-0.2) RDW Standard Deviation 41.3 fL (36.4-46.3) RDW Coefficient of Variation 13.4 % (11.5-14.5) Immature Granulocyte % (Auto) 0.2 % Immature Granulocyte # (Auto) 0.02 K/uL (0.00-0.02) Anion Gap 8.0 mmol/L (3-11) Est Creatinine Clear Calc Drug Dose 13.5 ml/min Estimated GFR () 18.6 Estimated GFR (Non- 16.0 BUN/Creatinine Ratio 23.0 (10-20) Calcium Level 8.8 mg/dl (8.5-10.1) Total Bilirubin 0.3 mg/dl (0.2-1) Direct Bilirubin < 0.1 mg/dl (0-0.2) Aspartate Amino Transf (AST/SGOT) 20 U/L (15-37) Alanine Aminotransferase (ALT/SGPT) 20 U/L (12-78) Alkaline Phosphatase 48 U/L (45-117) Total Protein 6.9 gm/dl (6.4-8.2) Albumin 3.1 gm/dl (3.4-5.0) Lipase 315 U/L (73-393) Urine Color YELLOW Urine Appearance CLEAR (CLEAR) Urine pH 6.0 (4.5-7.5) Urine Specific [place] 1.015 (1.000-1.030) Urine Protein 4+ (NEG) Urine Glucose (UA) 1+ (NEG) Urine Ketones NEG (NEG) Urine Occult Blood TRACE (NEG) Urine Nitrite NEG (NEG) Urine Bilirubin NEG (NEG) Urine Urobilinogen NEG (NEG) Urine Leukocyte Esterase NEG (NEG) Urine WBC (Auto) 1-5 /hpf (0-5) Urine RBC (Auto) 0-4 /hpf (0-4) Urine Hyaline Casts (Auto) 1-5 /lpf (0-5) Urine Epithelial Cells (Auto) >30 /lpf (0-5) Urine Bacteria (Auto) NEG (NEG) Urine Renal Epithelial Cells /lpf (0-5) Laboratory results reviewed by pa ED Course 1953: The patient was evaluated in room A11B. A complete history and physical exam was performed. 2220: I reevaluated the patient and updated her on her results. I discussed her treatment plan and she agrees to the plan. The patient will be further evaluated. 2227: I discussed the case with Dr. Luan [facility] Hospitalist. He understands the patient's condition and agrees to accept patient. The patient will be further evaluated. Medical Decision Triage Nursing notes reviewed. The patient's presentation and history were concerning for abnormal labs. Etiologies such as metabolic, infection, hypo/hyperglycemia, electrolyte abnormalities, cardiac sources, intracerebral event, toxicologic, neurologic, as well as others were entertained. The patient was evaluated. Blood work was obtained. A Dangelo catheter was placed and urinalysis sent. The patient had no signs of infection. She did have proteinuria. The patient was moderately hypertensive. CT imaging did not reveal any acute pathology. The patient was found to have acute kidney injury. I discussed case with Dr. Jesus Manuel Luna . Admission was felt to be appropriate for further monitoring, medication management and testing. The patient was evaluated in the Emergency Room for further management. Medication Reconcilliation Current Medication List: was personally reviewed by pa Blood Pressure Screening Patient's blood pressure: Elevated blood pressure Referred to Hospitalist. Consults Time Called: 2227 Consulting Physician: Dr. Luna [facility] Hospitalist Returned Call: 2227 I discussed the case with Dr. Luna [facility] Hospitalist. He understands the patient's condition and agrees to accept patient. The patient will be further evaluated. Impression Primary Impression: Acute kidney failure Additional Impressions: HTN (hypertension) Proteinuria Scribe Attestation The scribe's documentation has been prepared under my direction and personally reviewed by me in its entirety. I confirm that the note above accurately reflects all work, treatment, procedures, and medical decision making performed by me. Departure Information Dispostion Being Evaluated By Hospitalist Referrals RV. Noyola MD (PCP) Patient Instructions [facility] Problem Qualifiers
[2017-04-05] MEDS ORDERED: INSULIN ASPART 100 UNITS/ML 3 ML PEN SC SCH (02:30)
[2017-04-05] MEDS ORDERED: HydrALAZINE HCL 20 MG/ML VIAL ONE ×2 (02:47→06:19)
[2017-04-05] MEDS ORDERED: ALPRAZOLAM 0.25 MG TAB ONE (02:48)
[2017-04-05] MEDS: INSULIN ASPART 100 UNITS/ML 3 ML PEN SC SCH ×5 (03:10→20:41)
[2017-04-05] MEDS: RESTASIS~ORDER AWAITING ACTION SCH ×3 (07:21→23:33)
[2017-04-05] MEDS: [UNRECOGNIZED DRUG - OTHER] SCH ×3 (07:22→23:33)
[2017-04-05] MEDS: ASPIRIN 81 MG ECTAB PO SCH (08:23)
[2017-04-05] MEDS: DICLOFENAC SOD 1% GEL 100 GM TUBE EXT SCH ×2 (08:23→20:34)
[2017-04-05] MEDS: METOPROLOL TARTRATE 100 MG TAB PO SCH ×2 (08:23→20:35)
[2017-04-05] MEDS: EZETIMIBE 10MG TAB PO SCH (08:24)
[2017-04-05] MEDS ORDERED: FELODIPINE 5 MG TABCR PO SCH (09:00)
[2017-04-05] MEDS ORDERED: ISOSORBIDE MONONITRATE 60 MG TABCR PO SCH (09:00)
[2017-04-05 10:58] LABS: BASO % 0.7 %; BASO ABS # 0.07 K/uL (0-0.2); EOS % 1.6 %; EOS ABS # 0.15 K/uL (0-0.5); HEMATOCRIT 33.2 % (37-47); HEMOGLOBIN 11.8 g/dL (12.0-16.0); IG# 0.03 K/uL (0.00-0.02); LYMPH % 14.2 %; LYMPH ABS # 1.34 K/uL (1.2-3.4); MEAN CELL VOLUME 85.3 fL (80-100); MEAN CORPUSCULAR HEMOGLOBIN 30.3 pg (25-34); MEAN CORPUSCULAR HGB CONC 35.5 g/dl (32-36); MEAN PLATELET VOLUME 9.2 fL (7.4-10.4); MONO % 6.5 %; MONO ABS # 0.61 K/uL (0.11-0.59); NEUT % 76.7 %; NEUT ABS # 7.23 K/uL (1.4-6.5); PLATELET COUNT 203 K/uL (130-400); RED CELL DISTRIBUTION WIDTH CV 13.5 % (11.5-14.5); RED CELL DISTRIBUTION WIDTH SD 41.5 fL (36.4-46.3); WHITE BLOOD COUNT 9.43 K/uL (4.8-10.8)
[2017-04-05 11:24] LABS: BLOOD UREA NITROGEN 50 mg/dl (7-18); CALCIUM 8.7 mg/dl (8.5-10.1); CARBON DIOXIDE 24 mmol/L (21-32); CREATININE 2.37 mg/dl (0.60-1.20); GLUCOSE 250 mg/dl (70-99); POTASSIUM 3.7 mmol/L (3.5-5.1); SODIUM 137 mmol/L (136-145)
--- NOTE | 2017-04-05 12:15 | ECHOCARDIOGRAM REPORT ---
*NOTICE TO RECEIVING LIBERTARIAN AGENCY This information is strictly Confidential and protected under [place] law. [place] law prohibits you from making any further disclosure of this information unless further disclosure is expressly permitted by the written consent of the person to whom it pertains or is authorized by law. A general authorization for the release of medical or other information is not sufficient for this purpose. Hospital accepts no responsibility if the information is made available to any other person, INCLUDING THE PATIENT. Interpretation Summary * Name: DIEGO LUGO Study Date: 04/05/2017 09:12 AM BP: 161/61 mmHg * Patient Location: [facility]\S\N288\S\1 HR: 61 * : 1935 (M/d/yyyy) Gender: Female Height: 58 in * Age: 82 yrs Ethnicity: [place] Weight: 158 lb * Ordering Physician: Jesus Manuel Luna * Referring Physician: CHIDI Noyola. * Performed By: Jasmin Veliz [facility] * * Reason For Study: EDEMA * BSA: 1.6 m2 * -- Conclusions -- * 1. Normal LV size. Moderate concentric LVH. * 2. Normal LV function. LVEF 65-70%. No regional wall motion abnormalities. * 3. Normal RV size and function. * 4. Mild mitral regurgitation. * 5. Mild TR. Borderline pulmonary hypertension. Est PASP 35-40mmHg. Dilated IVC - Est RA 15 mmHg. * 6. Grade I diastolic dysfunction. * 7. Calcified circular structure again noted along the left atrial side of the interatrial septum, unchanged from prior study on 11/21/2012. Procedure Details * A complete two-dimensional transthoracic echocardiogram was performed (2D, M-mode, Doppler and color flow Doppler). Left Ventricle * The left ventricle is grossly normal size. * There is moderate concentric left ventricular hypertrophy. * Ejection Fraction = 65-70%. * No regional wall motion abnormalities noted. Right Ventricle * The right ventricle is grossly normal size. * There is a pacemaker lead in the right ventricle. * The right ventricular systolic function is qualitatively normal. Atria * The left atrium is moderately dilated. * Right atrium not well visualized. * There is no evidence of atrial septal defect, but resolution does not allow assessment for a patent foramen ovale. * Calcified circular structure again noted along the left atrial side of the interatrial septum, measuring 1.5 x 1.6 cm. It is not mobile and does not appear to obstruct flow. Mitral Valve * The mitral valve is grossly normal. * There is no mitral valve stenosis. * There is mild mitral regurgitation. Tricuspid Valve * The tricuspid valve is not well visualized. * There is mild tricuspid regurgitation. Aortic Valve * The aortic valve opens well. * The aortic valve is trileaflet. * No hemodynamically significant valvular aortic stenosis. * There is no significant aortic regurgitation. Pulmonic Valve * The pulmonary valve is inadequately visualized, but the Doppler data is adequate for interpretation. * Pulmonic stenosis is absent. * There is no significant pulmonary regurgitation. Great Vessels * The aortic root and proximal ascending aorta are normal sized. Pericardium/Pleural * There is no pericardial effusion. Great Vessels * Dilated inferior vena cava with reduced collapsability with sniff indicates an elevated right atrial pressure of 15 mmHg Left Ventricular Diastolic Function * Grade I diastolic dysfunction, (abnormal relaxation pattern). MMode 2D Measurements and Calculations IVSd 1.7 cm IVSs 2.0 cm LVIDd 4.4 cm LVIDs 3.3 cm LVPWd 1.5 cm LVPWs 1.8 cm IVS/LVPW 1.1 FS 24.6 % EDV(Teich) 86.8 ml ESV(Teich) 44.3 ml EF(Teich) 49.0 % EDV(cubed) 84.1 ml ESV(cubed) 36.1 ml EF(cubed) 57.1 % % IVS thick 22.3 % % LVPW thick 18.9 % LV mass(C)d 292.2 grams LV mass(C)dI 177.4 grams/m\S\2 LV mass(C)s 275.8 grams LV mass(C)sI 167.4 grams/m\S\2 SV(Teich) 42.5 ml SI(Teich) 25.8 ml/m\S\2 SV(cubed) 48.0 ml SI(cubed) 29.1 ml/m\S\2 Ao root diam 2.9 cm Ao root area 6.6 cm\S\2 ACS 1.9 cm LVOT diam 2.0 cm LVOT area 3.2 cm\S\2 LVAd ap4 33.8 cm\S\2 LVLd ap4 8.1 cm EDV(MOD-sp4) 121.9 ml EDV(sp4-el) 120.4 ml LVAs ap4 23.3 cm\S\2 LVLs ap4 7.6 cm ESV(MOD-sp4) 60.2 ml ESV(sp4-el) 60.7 ml EF(MOD-sp4) 50.6 % EF(sp4-el) 49.6 % LVAd ap2 25.4 cm\S\2 LVLd ap2 7.0 cm EDV(MOD-sp2) 76.3 ml EDV(sp2-el) 78.3 ml LVAs ap2 16.6 cm\S\2 LVLs ap2 6.5 cm ESV(MOD-sp2) 35.5 ml ESV(sp2-el) 35.9 ml EF(MOD-sp2) 53.4 % EF(sp2-el) 54.1 % LVLd %diff -15.56 % EDV(MOD-bp) 102.1 ml LVLs %diff -16.91 % ESV(MOD-bp) 50.2 ml EF(MOD-bp) 50.8 % SV(MOD-sp4) 61.7 ml SI(MOD-sp4) 37.5 ml/m\S\2 SV(MOD-sp2) 40.7 ml SI(MOD-sp2) 24.7 ml/m\S\2 SV(MOD-bp) 51.9 ml SI(MOD-bp) 31.5 ml/m\S\2 SV(sp4-el) 59.7 ml SI(sp4-el) 36.2 ml/m\S\2 SV(sp2-el) 42.3 ml SI(sp2-el) 25.7 ml/m\S\2 Doppler Measurements and Calculations MV E max claritza 106.8 cm/sec MV A max claritza 133.7 cm/sec MV E/A 0.80 MV P1/2t max claritza 118.9 cm/sec MV P1/2t 87.7 msec MVA(P1/2t) 2.5 cm\S\2 MV dec slope 397.3 cm/sec\S\2 MV dec time 0.34 sec Ao V2 max 147.1 cm/sec Ao max PG 8.7 mmHg Ao max PG (full) 4.0 mmHg SHANNAN(V,A) 2.3 cm\S\2 SHANNAN(V,D) 2.3 cm\S\2 LV V1 max PG 4.7 mmHg LV V1 max 108.4 cm/sec PA V2 max 103.8 cm/sec PA max PG 4.3 mmHg TR max claritza 256.9 cm/sec
--- NOTE | 2017-04-05 12:44 | Nephrology Consultation ---
Nephrology Consultation Date & Providers Date of Consultation: Apr 05, 2017. Primary Care Provider: RV. Noyola MD Referring Provider: Reason for Consultation Acute on chronic kidney injury History of Present Illness Ms. Dominguez is an 82 year old white female who is seen at the request of Dr. To for evaluation of acute on chronic kidney injury. Medical records in the hospital EMR were reviewed today and are summarized as follows: Ms. Dominguez has longstanding AODM (insulin requiring, no retinopathy), hyperlipidemia, HTN and ASCVD s/p CABG and pacemaker placement. She has stage 3 CKD w/ baseline creatinine 1.7 - 2.0. Ms. Dominguez has not previously been under the care of a [facility]. She reports that her blood pressure has been labile. Most recently she has been managed with Metoprolol and Felodipine therapy. She developed progressive LE swelling and low dose Furosemide was added to her regimen. Ms. Dominguez was seen by her PCP yesterday. Creatinine was found to be increased to 2.4. Admission was advised for evaluation of GUSTAVO, hypertension management and correction of LE edema. Past Medical/Surgical History Medical: # CKD w/ baseline creatinine 1.7 - 2.0 # Microalbuminuria # AODM - insulin requiring, no retinopathy # HTN # Hyperlipidemia - transitioned from fibrate to fish oil therapy due to CKD. 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 Farrell Surgical: # CABG # Pacemaker Allergies Coded Allergies: Carbamazepine (Verified Allergy, Intermediate, RASH, 04/04/17) Carvedilol (Verified Allergy, Intermediate, DIZZINESS, VISUAL DISTURBANCES , 04/04/17) Erythromycin (Verified Allergy, Intermediate, RASH, 04/04/17) Macrolides (Verified Allergy, Intermediate, RASH, 04/04/17) Statins (Verified Adverse Reaction, Intermediate, MUSCLE ACHES, 04/04/17) Inpatient Medications Current Inpatient Medications Medications (Trade) Dose Ordered Sig/Haja Route Start Time Stop Time Status Last Admin Dose Admin Acetaminophen (Tylenol Tab) 650 mg Q4H PRN PO 04/05/17 00:30 05/05/17 00:29 Alprazolam (Xanax Tab) 0.5 mg HS PO 04/05/17 21:00 05/05/17 20:59 Aspirin (Ecotrin Tab) 81 mg QAM PO 04/05/17 09:00 05/05/17 08:59 04/05/17 08:23 81 MG Diclofenac Sodium (Voltaren 1% Top Gel) 1 appln BID EXT 04/05/17 09:00 05/05/17 08:59 04/05/17 08:23 1 APPLN EZETIMIBE (Zetia Tab) 10 mg QAM PO 04/05/17 09:00 05/05/17 08:59 04/05/17 08:24 10 MG Metoprolol Tartrate (Lopressor Tab) 100 mg BID PO 04/05/17 09:00 05/05/17 08:59 04/05/17 08:23 100 MG Miscellaneous Information (Order Awaiting Action) 1 ea QS N/A 04/05/17 08:00 05/05/17 07:59 Miscellaneous Information (Order Awaiting Action) 1 ea QS N/A 04/05/17 08:00 05/05/17 07:59 Insulin Glargine (Lantus Solostar Pen) 62 units DAILY@2100 SC 04/06/17 21:00 05/06/17 20:59 Ondansetron HCl (Zofran Odt) 8 mg Q6H PRN PO 04/05/17 00:30 05/05/17 00:29 Insulin Aspart (novoLOG ASPART) SLIDING SCALE If C... ACHS SC 04/05/17 06:30 05/05/17 06:59 04/05/17 08:40 5 UNITS Glucose (Glucose 40% Gel) UD PRN PO 04/05/17 00:30 05/05/17 00:29 Glucose (Glucose Chew Tab) 1 tabs UD PRN PO 04/05/17 00:30 05/05/17 00:29 Dextrose (Dextrose 50% 50ML Syringe) 50 ml UD PRN IV 04/05/17 00:30 05/05/17 00:29 Glucagon (Glucagon Inj) 1 mg UD PRN SQ 04/05/17 00:30 05/05/17 00:29 Isosorbide Mononitrate (Imdur Ext Rel Tab) 60 mg BID PO 04/05/17 21:00 05/05/17 20:59 Hydralazine HCl (HydrALAZINE INJ) 10 mg Q4H PRN IV. 04/05/17 06:30 05/05/17 06:29 Insulin Glargine (Lantus Solostar Pen) 49 units TODAY@2100 SC 04/05/17 21:00 04/05/17 21:01 Hydralazine HCl (Apresoline Tab) 50 mg Q8 PO 04/05/17 14:00 05/05/17 13:59 UNV Family History Patient reports no known family medical history. Negative for CKD/ESRD Social History Smoking Status: Never Smoker Smokeless Tobacco Use: No Alcohol Use: none Drug Use: none Marital Status: Housing Status: lives with family Occupation: retired . 2 sons, 1 daughter in good health. Retired from [employer]. Denies tobacco or alcohol use Review of Systems Constitutional: No fever Respiratory: No cough, No shortness of breath Cardiovascular: No chest pain Abdomen: No nausea, No vomiting Integumentary: No rash A complete review of systems was performed. Pertinent positives are noted above. All other systems are negative. Physical Exam Date Time Temp Pulse Resp B/P (MAP) Pulse Ox O2 Delivery O2 Flow Rate FiO2 04/05/17 11:15 36.5 60 18 144/48 (80) 94 04/05/17 08:04 36.9 60 16 161/61 (94) 95 Room Air 04/05/17 08:00 Room Air 04/05/17 06:17 217/82 (127) 04/05/17 04:00 Room Air 04/05/17 04:00 37.1 61 16 197/72 (113) 96 Room Air 04/05/17 02:20 36.4 66 16 231/81 (131) 96 Room Air 235/85 (135) 04/05/17 02:15 37.1 66 16 231/81 96 Room Air 04/05/17 01:42 36.6 59 18 215/78 97 04/04/17 23:47 59 194/119 97 Room Air 210/105 215/78 04/04/17 21:45 60 184/79 97 Room Air 04/04/17 19:33 36.6 65 18 212/75 97 General Appearance: no apparent distress Head: normocephalic, atraumatic Eyes: PERRL, EOMI Neck: no adenopathy, no JVD Respiratory/Chest: lungs clear, no respiratory distress Cardiovascular: regular rate, rhythm, no murmur Abdomen/GI: normal bowel sounds, non tender, soft Genitourinary - Female: + pertinent finding (medina catheter in place draining clear yellow urine) Extremities/Musculoskelatal: no pedal edema, + pertinent finding (poor skin turgor) Neurologic/Psych: alert, oriented x 3 Laboratory Results 01/23 ECHOCARDIOGRAM: LVEF 65 - 70%, no RWMA, moderate to severe concentric LVH , type 1 diastolic dysfunction, 1.7 x 1.7 left atrial myxoma, no significant valvular abnormalities, RVSP 26 mm HG. No change compared to 01/21 study. Last 24 Hours Test 04/04/17 20:04 04/04/17 20:15 04/05/17 02:21 04/05/17 07:54 White Blood Count 9.19 K/uL Red Blood Count 3.73 M/uL Hemoglobin 11.8 g/dL Hematocrit 31.9 % Mean Corpuscular Volume 85.5 fL Mean Corpuscular Hemoglobin 31.6 pg Mean Corpuscular Hemoglobin Concent 37.0 g/dl Platelet Count 227 K/uL Mean Platelet Volume 9.1 fL Neutrophils (%) (Auto) 64.0 % Lymphocytes (%) (Auto) 22.3 % Monocytes (%) (Auto) 7.8 % Eosinophils (%) (Auto) 4.5 % Basophils (%) (Auto) 1.2 % Neutrophils # (Auto) 5.88 K/uL Lymphocytes # (Auto) 2.05 K/uL Monocytes # (Auto) 0.72 K/uL Eosinophils # (Auto) 0.41 K/uL Basophils # (Auto) 0.11 K/uL RDW Standard Deviation 41.3 fL RDW Coefficient of Variation 13.4 % Immature Granulocyte % (Auto) 0.2 % Immature Granulocyte # (Auto) 0.02 K/uL Sodium Level 138 mmol/L Potassium Level 3.7 mmol/L Chloride Level 105 mmol/L Carbon Dioxide Level 24 mmol/L Anion Gap 8.0 mmol/L Blood Urea Nitrogen 61 mg/dl Creatinine 2.65 mg/dl Est Creatinine Clear Calc Drug Dose 13.5 ml/min Estimated GFR () 18.6 Estimated GFR (Non- 16.0 BUN/Creatinine Ratio 23.0 Random Glucose 196 mg/dl Calcium Level 8.8 mg/dl Total Bilirubin 0.3 mg/dl Direct Bilirubin < 0.1 mg/dl Aspartate Amino Transf (AST/SGOT) 20 U/L Alanine Aminotransferase (ALT/SGPT) 20 U/L Alkaline Phosphatase 48 U/L Total Protein 6.9 gm/dl Albumin 3.1 gm/dl Lipase 315 U/L Urine Color YELLOW Urine Appearance CLEAR Urine pH 6.0 Urine Specific [place] 1.015 Urine Protein 4+ Urine Glucose (UA) 1+ Urine Ketones NEG Urine Occult Blood TRACE Urine Nitrite NEG Urine Bilirubin NEG Urine Urobilinogen NEG Urine Leukocyte Esterase NEG Urine WBC (Auto) 1-5 /hpf Urine RBC (Auto) 0-4 /hpf Urine Hyaline Casts (Auto) 1-5 /lpf Urine Epithelial Cells (Auto) >30 /lpf Urine Bacteria (Auto) NEG Urine Renal Epithelial Cells /lpf Bedside Glucose 288 mg/dl 268 mg/dl Test 04/05/17 10:36 04/05/17 11:47 04/05/17 12:05 White Blood Count 9.43 K/uL Red Blood Count 3.89 M/uL Hemoglobin 11.8 g/dL Hematocrit 33.2 % Mean Corpuscular Volume 85.3 fL Mean Corpuscular Hemoglobin 30.3 pg Mean Corpuscular Hemoglobin Concent 35.5 g/dl Platelet Count 203 K/uL Mean Platelet Volume 9.2 fL Neutrophils (%) (Auto) 76.7 % Lymphocytes (%) (Auto) 14.2 % Monocytes (%) (Auto) 6.5 % Eosinophils (%) (Auto) 1.6 % Basophils (%) (Auto) 0.7 % Neutrophils # (Auto) 7.23 K/uL Lymphocytes # (Auto) 1.34 K/uL Monocytes # (Auto) 0.61 K/uL Eosinophils # (Auto) 0.15 K/uL Basophils # (Auto) 0.07 K/uL RDW Standard Deviation 41.5 fL RDW Coefficient of Variation 13.5 % Immature Granulocyte % (Auto) 0.3 % Immature Granulocyte # (Auto) 0.03 K/uL Sodium Level 137 mmol/L Potassium Level 3.7 mmol/L Chloride Level 106 mmol/L Carbon Dioxide Level 24 mmol/L Anion Gap 7.0 mmol/L Blood Urea Nitrogen 50 mg/dl Creatinine 2.37 mg/dl Est Creatinine Clear Calc Drug Dose 15.2 ml/min Estimated GFR () 21.3 Estimated GFR (Non- 18.3 BUN/Creatinine Ratio 21.0 Random Glucose 250 mg/dl Calcium Level 8.7 mg/dl Troponin I < 0.015 ng/ml Bedside Glucose 247 mg/dl Impression (1) Acute kidney failure (2) Chronic kidney disease (3) Proteinuria (4) HTN (hypertension) (5) Diabetes mellitus (6) Coronary artery disease (7) Atrial myxoma (8) Hyperlipidemia Recommendations ACUTE KIDNEY INJURY: -- Hold diuretic. Patient is clinically volume contracted. Suspect that LE edema may be related to CCB therapy or lymphedema -- Monitor serial PRP CHRONIC KIDNEY DISEASE: -- Baseline creatinine has been 1.7 - 2.0. Abdominal CT films reviewed. Patient has mild renal cortical atrophy. Urine microscopy revealed a bland sediment -- Will obtain renal US to assess kidney size -- Will order renal artery doppler due to worsening kidney function in the setting of LISSETH inhibitor therapy -- Will order 24 hour urine to quantitate urinary protein -- Will check serum free light chains HYPERTENSION: -- 01/23 Echocardiogram shows moderate to severe LVH c/w longstanding arterial HTN. LVEF was preserved. RVSP was wnl. -- Stop Felodipine as this may contribute to LE edema -- Continue Metoprolol -- Start Hydralazine 50 mg po TID -- Low sodium diet. Will ask dietitian to provide education EDEMA: -- Will order knee high medium strength compression stockings for use during the day
--- NOTE | 2017-04-05 14:00 | DIAGNOSTIC IMAGING REPORT ---
CHEST ONE VIEW PORTABLE CLINICAL HISTORY: Shortness of breath. History of congestive heart failure. COMPARISON STUDY: Chest radiograph April 15, 2016. FINDINGS: There are median sternotomy wires and a dual lead left subclavian pacemaker. Cardiomegaly is unchanged. No pneumothorax or pleural effusion is identified. There is no evidence of pulmonary edema. No consolidation is identified. Mild left basilar opacity favors atelectasis. IMPRESSION: 1. Stable cardiomegaly without evidence of pulmonary edema. 2. Mild left basilar opacity suggestive of atelectasis. Electronically signed by: Chase Gage M.D. 04/05/2017 1:59 PM Dictated Date/Time: 04/05/2017 1:58 PM
--- NOTE | 2017-04-05 15:42 | CARDIOLOGY CONSULTATION ---
DATE OF CONSULTATION: 04/05/2017 TIME: 14:44 p.m. CONSULTING PHYSICIAN: Dr. To. REASON FOR CONSULTATION: Hypertensive urgency and concern for CHF. HISTORY OF PRESENT ILLNESS: Mrs. Dominguez is a pleasant 82-year-old female with a history significant for CAD status post CABG, hypertriglyceridemia, hypertension, left atrial mass, possibly myxoma, and sick sinus syndrome, status post pacemaker. She also has chronic kidney disease. She has been having issues with hypertension and lower extremity edema. Felodipine was increased to 7.5 mg in January 2017. Apparently, her lower extremity swelling has been worsening recently as has her dyspnea with exertion. She had been on HCTZ in the past and this was discontinued and she was eventually started on Lasix 20 mg every other day in January of 2017. When her lower extremity swelling and dyspnea with exertion continued to worsen, she was instructed by her PCP on 03/30/2017 to increase Lasix to 20 mg every day for 5-7 days and then back down to every other day. She had repeat lab work done, which demonstrated worsening renal function when her creatinine, which has been running mostly 1.6-2, increased to 2.43 with a BUN of 52 and she was instructed to come to the hospital for further evaluation. She denies orthopnea, chest pain, syncope, near syncope, or palpitations. She admits that her edema improved with increased diuretic therapy, but her shortness of breath did not demonstrate any improvement whatsoever. She denies fevers, but has had shaking chills. She denies foods high in sodium content. She denies diarrhea, melena, hematochezia, hematuria, or other bleeding. She denies nausea or vomiting. Upon presentation to the hospital, she was found to have severe hypertension with blood pressures as high as 235/85 mmHg. Nephrology consultation has been done. REVIEW OF SYSTEMS: As above and review of systems otherwise negative/unremarkable. PAST MEDICAL HISTORY: 1. CAD, status post CABG in 1992, but no details available. 2. Sick sinus syndrome, status post dual-chamber pacemaker implantation on 10/29/2008 followed by EP. 3. Left atrial mass, which has been evaluated by transesophageal echo, but she has declined further evaluation or treatment. 4. Hypertension. 5. Chronic kidney disease. 6. Hypertriglyceridemia. 7. Hypomagnesemia. 8. Anemia. 9. Diverticulosis. 10. Type 2 diabetes. 11. Diabetic retinopathy. 12. Depression. 13. Toe amputation. 14. Osteopenia. 15. Cholelithiasis. 16. Diabetic neuropathy. HOME MEDICATIONS: Include, 1. Felodipine 7.5 mg daily. 2. Enalapril 20 mg p.o. b.i.d. 3. Zetia 10 mg daily. 4. Aspirin 81 mg daily. 5. Alprazolam. 6. Lasix 20 mg every other day. 7. HCTZ 25 mg daily. 8. Isosorbide mononitrate 60 mg daily. 9. Metoprolol 100 mg p.o. b.i.d. CURRENT INPATIENT MEDICATIONS: Include aspirin 81 mg daily, hydralazine 50 mg p.o. q. 8 hours, Lantus, isosorbide mononitrate 60 mg p.o. b.i.d., and metoprolol 100 mg p.o. b.i.d. ALLERGIES: LISTED CARBAMAZEPINE, ERYTHROMYCIN/MACROLIDE, STATIN, CARVEDILOL (CARVEDILOL WAS AN INTOLERANT). SOCIAL HISTORY: Denies tobacco, alcohol or drug abuse. She lives alone. She is a . She has children and her daughter lives a few miles away. She is currently alone in her hospital room. FAMILY HISTORY: She is not aware of her family history as her parents while she was a young child and she became a foster child. PHYSICAL EXAMINATION: VITAL SIGNS: Temperature 36.5 degrees, heart rate 60 beats per minute, respiratory rate 18, and blood pressure 144/48 mmHg, but otherwise severely elevated as noted above. Oxygen saturation 94% on room air. Weight 72.9 kg. GENERAL: No acute distress. She is alert and oriented. HEENT: Anicteric sclerae. NECK: No appreciable JVD. No bruits. Normal carotid upstrokes bilaterally. CARDIAC EXAMINATION: PMI was nonpalpable. There was no ventricular heave. Regular, normal S1 and S2. No audible murmurs, rubs, or gallops were auscultated. LUNGS: There were fine crackles at the left base, but otherwise clear. ABDOMEN: Soft, nontender, and nondistended. Normoactive bowel sounds. No bruits noted. EXTREMITIES: Trace bilateral lower extremity edema. No cyanosis. 2+ radial pulses bilaterally. 2+ dorsalis pedis pulses bilaterally. No palpable cords. PSYCHIATRIC: Affect appears appropriate. ECG on 04/05/2017 at 09:52 a.m., personally reviewed. Atrial paced at 63 beats per minute. Right bundle branch block. Inferior infarct. Chest x-ray report per radiology. No pulmonary edema. Mild left basilar opacity suggestive of atelectasis. LABORATORY DATA: Sodium 137, potassium 3.7, BUN 50, creatinine 2.37 down from 2.65, and glucose 247. ProBNP 5042. Albumin 3.1. White blood cell count is 9.43, hemoglobin 11.8, and platelets 203. Echocardiogram images personally reviewed. Echocardiogram performed on 04/05/2017 reported as normal LV systolic function with an EF of 65%-70%. Normal wall motion. Moderate LVH. Mild MR. No significant pulmonary hypertension. Left atrial mass, which has been a stable finding. ASSESSMENT AND PLAN: 1. Hypertension: We will defer to nephrology. This was discussed with Dr. Noyola, who has addressed the hypertension in his consultation performed earlier today. 2. Dyspnea with exertion: Etiology uncertain. She does not appear to be hypervolemic intravascularly based on exam findings and also due to the fact that when her Lasix was recently increased to 20 mg daily, her BUN and creatinine became more elevated quite quickly. Nephrology has discontinued diuretics. Hopefully, renal function improves with the holding of diuretics. Continue to reassess symptoms. Hopefully, with control of her blood pressure, her dyspnea with exertion also improves. Cannot rule out ischemic heart disease as the cause given her history, but she prefers nonaggressive evaluation and treatment if possible. Would not perform any ischemic evaluation with blood pressures severely elevated as they currently are. Hopefully, symptoms improved with control of blood pressure. 3. Edema: She does have some edema, which could be secondary to calcium channel jose. She does not appear to be significantly intravascularly hypervolemic. Nephrology is concern for volume contraction and therefore, diuretics have been held. It does appear that she may have become hypovolemic as her BUN and creatinine increased coincide with the increase of her diuretics and despite increasing her diuretics, her dyspnea with exertion did not improve whatsoever. Consider support stockings. 4. Coronary artery disease status post coronary artery bypass graft: No angina. She does not know the details of her bypass. Would recommend continuation of aspirin 81 mg daily. Continue beta jose. SHE IS INTOLERANT TO STATIN THERAPY. 5. Left atrial mass, possible myxoma: She has undergone transesophageal echo in the past. She has declined any form of surgical intervention and prefers a conservative approach. 6. Sick sinus syndrome, status post pacemaker: Follows with EP. 7. Disposition: Cardiology will continue to follow tomorrow. Please call with any other questions or concerns. Thank for allowing me to participate in care of Ms. Dominguez. Sincerely,
--- NOTE | 2017-04-05 16:25 | DIAGNOSTIC IMAGING REPORT ---
DOPPLER ULTRASOUND OF THE RENAL ARTERIES CLINICAL HISTORY: Acute renal insufficiency. COMPARISON STUDY: Abdominal CT dated 04/04/2017. TECHNIQUE: Doppler sonography of the renal arteries was performed to assess renal artery stenosis. Images are reviewed in the transverse and longitudinal planes. FINDINGS: The kidneys demonstrate mild cortical atrophy and are without hydronephrosis. The right kidney measures 10.7 cm in length and the left kidney measures 10.2 cm in length. On the right, intrarenal arterial resistive indices range from 0.71 to 0.84. Intrarenal arterial waveforms are normal with brisk upstrokes. The right renal arterial waveform is normal, and velocities within the visualized portions of the right renal artery measure up to 67 cm/sec. The proximal renal artery was not well seen. The right renal vein is patent. On the left, intrarenal arterial resistive indices range from 0.74 to 1.0. Intrarenal arterial waveforms are normal with brisk upstrokes. The left renal arterial waveform is normal, and velocities within the left renal artery measure up to 130 cm/sec. The distal left renal artery was not well visualized. The left renal vein is patent. The abdominal aorta is patent. Velocities within the abdominal aorta measure up to 184 cm/s. IMPRESSION: 1. There is no convincing sonographic evidence of renal artery stenosis. 2. Elevated intrarenal resistive indices are nonspecific and suggests medical renal disease. Electronically signed by: William Villanueva M.D. 04/05/2017 4:24 PM Dictated Date/Time: 04/05/2017 4:21 PM
--- NOTE | 2017-04-05 16:25 | DIAGNOSTIC IMAGING REPORT ---
(RENAL)RETROPERITON COMP CLINICAL HISTORY: 82 years-old Female presenting with GUSTAVO - evaluate size, symmetry. TECHNIQUE: Real-time grayscale and limited color Doppler ultrasound imaging of the kidneys and bladder was performed. COMPARISON: None. FINDINGS: Right kidney: Normal echogenicity. Right kidney measures 11.1 cm. No hydronephrosis. Anechoic well-defined avascular lesion consistent with simple cysts noted at the interpolar region measuring 1.7 cm. Trace perinephric free fluid may be present at the lower pole. Normal perfusion. Left kidney: Normal echogenicity. Left kidney measures 10.2 cm. No hydronephrosis. No convincing evidence of calculus or mass. Normal perfusion. Bladder: Decompressed with a Dangelo catheter. Other: None. IMPRESSION: 1. Essentially normal renal ultrasound. No obstruction. Electronically signed by: Abram Cifuentes M.D. 04/05/2017 4:24 PM Dictated Date/Time: 04/05/2017 4:23 PM
--- NOTE | 2017-04-05 18:07 | Hospitalist Progress Note ---
Hospitalist Progress Note Date of Service Apr 05, 2017. Subjective Pt evaluation today including: conversation w/ patient, conversation w/ family , conversation w/ marine consultant (Cardiology, Nephrology) Voiding: medina catheter in place Pt reports feeling ok today. She was admitted for worsening leg swelling and abnormal merchandising representative on outpatient lab studies. She and daughter report she has been falling, last fall 3 weeks ago, no injuries. Reports left lower back pain radiating down left buttocks and causing cramps in left thigh for a few months. All Other Systems: Reviewed and Negative Objective Vital Signs Date Time Temp Pulse Resp B/P (MAP) Pulse Ox O2 Delivery O2 Flow Rate FiO2 04/05/17 15:04 37.0 62 16 182/74 (110) 95 Room Air 04/05/17 12:00 Room Air 04/05/17 11:15 36.5 60 18 144/48 (80) 94 04/05/17 08:04 36.9 60 16 161/61 (94) 95 Room Air 04/05/17 08:00 Room Air 04/05/17 06:17 217/82 (127) 04/05/17 04:00 Room Air 04/05/17 04:00 37.1 61 16 197/72 (113) 96 Room Air 04/05/17 02:20 36.4 66 16 231/81 (131) 96 Room Air 235/85 (135) 04/05/17 02:15 37.1 66 16 231/81 96 Room Air 04/05/17 01:42 36.6 59 18 215/78 97 04/04/17 23:47 59 194/119 97 Room Air 210/105 215/78 04/04/17 21:45 60 184/79 97 Room Air 04/04/17 19:33 36.6 65 18 212/75 97 Physical Exam General Appearance: WD/WN, + mild distress Eyes: normal inspection, sclerae normal ENT: hearing grossly normal Neck: trachea midline Respiratory/Chest: no respiratory distress, no accessory muscle use, + crackles (at bases bilat, otherwise clear) Cardiovascular: regular rate, rhythm, no murmur, + pertinent finding (2+ pitting edema of legs to knees bilat) Abdomen: normal bowel sounds, non tender, soft Extremities: no calf tenderness Neurologic/Psychiatric: alert, normal mood/affect, oriented x 3 Skin: normal color, warm/dry, no rash Laboratory Results Last 24 Hours Test 04/04/17 20:04 04/04/17 20:15 04/05/17 02:21 04/05/17 07:54 White Blood Count 9.19 K/uL Red Blood Count 3.73 M/uL Hemoglobin 11.8 g/dL Hematocrit 31.9 % Mean Corpuscular Volume 85.5 fL Mean Corpuscular Hemoglobin 31.6 pg Mean Corpuscular Hemoglobin Concent 37.0 g/dl Platelet Count 227 K/uL Mean Platelet Volume 9.1 fL Neutrophils (%) (Auto) 64.0 % Lymphocytes (%) (Auto) 22.3 % Monocytes (%) (Auto) 7.8 % Eosinophils (%) (Auto) 4.5 % Basophils (%) (Auto) 1.2 % Neutrophils # (Auto) 5.88 K/uL Lymphocytes # (Auto) 2.05 K/uL Monocytes # (Auto) 0.72 K/uL Eosinophils # (Auto) 0.41 K/uL Basophils # (Auto) 0.11 K/uL RDW Standard Deviation 41.3 fL RDW Coefficient of Variation 13.4 % Immature Granulocyte % (Auto) 0.2 % Immature Granulocyte # (Auto) 0.02 K/uL Sodium Level 138 mmol/L Potassium Level 3.7 mmol/L Chloride Level 105 mmol/L Carbon Dioxide Level 24 mmol/L Anion Gap 8.0 mmol/L Blood Urea Nitrogen 61 mg/dl Creatinine 2.65 mg/dl Est Creatinine Clear Calc Drug Dose 13.5 ml/min Estimated GFR () 18.6 Estimated GFR (Non- 16.0 BUN/Creatinine Ratio 23.0 Random Glucose 196 mg/dl Calcium Level 8.8 mg/dl Total Bilirubin 0.3 mg/dl Direct Bilirubin < 0.1 mg/dl Aspartate Amino Transf (AST/SGOT) 20 U/L Alanine Aminotransferase (ALT/SGPT) 20 U/L Alkaline Phosphatase 48 U/L Total Protein 6.9 gm/dl Albumin 3.1 gm/dl Lipase 315 U/L Urine Color YELLOW Urine Appearance CLEAR Urine pH 6.0 Urine Specific Hooks 1.015 Urine Protein 4+ Urine Glucose (UA) 1+ Urine Ketones NEG Urine Occult Blood TRACE Urine Nitrite NEG Urine Bilirubin NEG Urine Urobilinogen NEG Urine Leukocyte Esterase NEG Urine WBC (Auto) 1-5 /hpf Urine RBC (Auto) 0-4 /hpf Urine Hyaline Casts (Auto) 1-5 /lpf Urine Epithelial Cells (Auto) >30 /lpf Urine Bacteria (Auto) NEG Urine Renal Epithelial Cells /lpf Bedside Glucose 288 mg/dl 268 mg/dl Test 04/05/17 10:36 04/05/17 11:47 04/05/17 12:38 04/05/17 16:47 White Blood Count 9.43 K/uL Red Blood Count 3.89 M/uL Hemoglobin 11.8 g/dL Hematocrit 33.2 % Mean Corpuscular Volume 85.3 fL Mean Corpuscular Hemoglobin 30.3 pg Mean Corpuscular Hemoglobin Concent 35.5 g/dl Platelet Count 203 K/uL Mean Platelet Volume 9.2 fL Neutrophils (%) (Auto) 76.7 % Lymphocytes (%) (Auto) 14.2 % Monocytes (%) (Auto) 6.5 % Eosinophils (%) (Auto) 1.6 % Basophils (%) (Auto) 0.7 % Neutrophils # (Auto) 7.23 K/uL Lymphocytes # (Auto) 1.34 K/uL Monocytes # (Auto) 0.61 K/uL Eosinophils # (Auto) 0.15 K/uL Basophils # (Auto) 0.07 K/uL RDW Standard Deviation 41.5 fL RDW Coefficient of Variation 13.5 % Immature Granulocyte % (Auto) 0.3 % Immature Granulocyte # (Auto) 0.03 K/uL Sodium Level 137 mmol/L Potassium Level 3.7 mmol/L Chloride Level 106 mmol/L Carbon Dioxide Level 24 mmol/L Anion Gap 7.0 mmol/L Blood Urea Nitrogen 50 mg/dl Creatinine 2.37 mg/dl Est Creatinine Clear Calc Drug Dose 15.2 ml/min Estimated GFR () 21.3 Estimated GFR (Non- 18.3 BUN/Creatinine Ratio 21.0 Random Glucose 250 mg/dl Calcium Level 8.7 mg/dl Troponin I < 0.015 ng/ml Pro-B-Type Natriuretic Peptide 5042 pg/ml Bedside Glucose 247 mg/dl 194 mg/dl Diagnostic Results Reviewed Renal US and Renal; DOppler-MRD on Doppler, no stenosis, no hydro, no atrophy Assessment and Plan GUSTAVO on CKD stage III/Proteinuria-baseline merchandising representative 1.7-2.0, now 2.6 on admission, decreased to 2.35 today with holding diuretics. UA with 4+ protein, no blood -continue to hold all diuretics and ACEI -checking 24 hr urine protein -Appreciate Nephro consult -avoid nephrotoxins, will renally dose all meds -follow PRP Hypertensive urgency/HTN/ABnormal ECG- BP 235/85 at highest since admission, now improving. ECG with TWIs in lateral leads new from previous, RBBB. Troponin negative, no CP but had SOB on admission. 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 ECHO with normal EF, mild MR, borderline Pulm HTN, stable mass/?myxoma, and grade 1 diastolic dysfunction with mod LVH. -Appreciate Nephrology and Cardiology consults -dc felodipine in case of adverse side effect -avoid diuretics as she is intravascularly depleted and with GUSTAVO, elevated BUN -compression stockings ordered -low sodium diet, daily weights, dietary consult -no surgery opted in the past for myxoma CAD, status post CABG in 1992, but no details available/Sick sinus syndrome, status post dual-chamber pacemaker implantation on 10/29/2008 followed by EP. -stable -monitor on tele -continue Zetia, is intolerant to statins -continue ASA DMII-controlled, on fci insulin. HgbA1C here 7.1% -continue Lantus and SSI, accuchecks Hypertriglyceridemia-was > 1000 in the past. Recently switched from fenofibrate to fish oil due to renal failure -continue fish oil Left sided sciatica, lower back pain-ongoing for several months, with h/o falls -tylenol prn pain -PT/OT consults Proph-YASMANY mancia, add on heparin SQ Dispo-remain on telemetry, will need PT/OT consults due to recent falls, leg swelling and left sided sciatica, may need rehab/SNF DNR/DNI as discussed with pt with daughter who is HCPOA at the bedside. She has a living will that daughter has reviewed with her
[2017-04-05 19:22] LABS: PTT PATIENT 29.6 SECONDS (21.0-31.0)
[2017-04-05] MEDS: ISOSORBIDE MONONITRATE 60 MG TABCR PO SCH (20:35)
[2017-04-05] MEDS ORDERED: ALPRAZOLAM 0.25 MG TAB PO SCH (21:00)
[2017-04-05] MEDS ORDERED: INSULIN GLARGINE SOLOSTAR 100 UNITS/ML 3 ML PEN SC SCH (21:00)
[2017-04-05] MEDS: ALPRAZOLAM 0.5 MG TAB PO SCH (22:02)
[2017-04-05] MEDS: HEPARIN SOD 5000 UNIT/0.5 ML CARP SQ SCH (22:03)
[2017-04-05] MEDS: HydrALAZINE HCL 20 MG/ML VIAL IV. PRN (23:27)
[2017-04-06] VITALS (9 sets, daily range): BP systolic 156–216; BP diastolic 66–77; PULSE 59–67; TEMP 36.5–37.1; O2SAT 93–96
[2017-04-06] MEDS: HEPARIN SOD 5000 UNIT/0.5 ML CARP SQ SCH ×3 (05:48→21:27)
[2017-04-06 07:20] LABS: BASO % 1.2 %; EOS % 3.8 %; EOS ABS # 0.33 K/uL (0-0.5); HEMATOCRIT 29.3 % (37-47); HEMOGLOBIN 10.4 g/dL (12.0-16.0); IG# 0.03 K/uL (0.00-0.02); LYMPH % 19.2 %; LYMPH ABS # 1.67 K/uL (1.2-3.4); MEAN CELL VOLUME 86.2 fL (80-100); MEAN CORPUSCULAR HEMOGLOBIN 30.6 pg (25-34); MEAN CORPUSCULAR HGB CONC 35.5 g/dl (32-36); MEAN PLATELET VOLUME 8.9 fL (7.4-10.4); MONO % 8.2 %; MONO ABS # 0.71 K/uL (0.11-0.59); NEUT % 67.3 %; NEUT ABS # 5.84 K/uL (1.4-6.5); PLATELET COUNT 184 K/uL (130-400); RED CELL DISTRIBUTION WIDTH CV 13.7 % (11.5-14.5); RED CELL DISTRIBUTION WIDTH SD 42.8 fL (36.4-46.3); WHITE BLOOD COUNT 8.68 K/uL (4.8-10.8)
[2017-04-06 07:51] LABS: CALCIUM 8.6 mg/dl (8.5-10.1); CREATININE 2.28 mg/dl (0.60-1.20); POTASSIUM 3.4 mmol/L (3.5-5.1)
[2017-04-06] MEDS: [UNRECOGNIZED DRUG - OTHER] SCH ×3 (08:00→23:56)
[2017-04-06 08:07] LABS: HEMOGLOBIN A1C 7.1 % (4.5-5.6)
[2017-04-06] MEDS: EZETIMIBE 10MG TAB PO SCH (08:17)
[2017-04-06] MEDS: ISOSORBIDE MONONITRATE 60 MG TABCR PO SCH ×2 (08:17→19:43)
[2017-04-06] MEDS: ASPIRIN 81 MG ECTAB PO SCH (08:17)
[2017-04-06] MEDS: DICLOFENAC SOD 1% GEL 100 GM TUBE EXT SCH ×2 (08:17→21:28)
[2017-04-06] MEDS: METOPROLOL TARTRATE 100 MG TAB PO SCH ×2 (08:18→18:31)
[2017-04-06] MEDS: INSULIN ASPART 100 UNITS/ML 3 ML PEN SC SCH ×4 (08:21→21:25)
[2017-04-06] MEDS ORDERED: POTASSIUM CHLORIDE 10 MEQ TABCR PO STA (08:46)
--- NOTE | 2017-04-06 10:45 | Nephrology Progress Note ---
Nephrology Progress Note Date of Service Apr 06, 2017. Chief Complaint Acute on chronic kidney injury Subjective Ms. Dominguez was seen & examined in her hospital room this morning. She currently denies NI, visual change, angina or uremic symptoms. She reports that her leg edema is markedly improved and she is willing to wear compression stockings. Review of Systems Constitutional: No fever Cardiovascular: No chest pain Respiratory: No dyspnea at rest Abdomen: No pain, No nausea, No vomiting Extremities: + leg edema A complete review of systems was performed. Pertinent positives are noted above. All other systems are negative. Vital Signs Last 8 Hrs Date Time Temp Pulse Resp B/P (MAP) Pulse Ox O2 Delivery O2 Flow Rate FiO2 04/06/17 08:00 Room Air 04/06/17 07:35 36.6 60 16 189/73 (111) 95 Room Air 04/06/17 04:00 Room Air 04/06/17 04:00 36.6 61 18 163/66 (98) 93 Room Air Last Recorded Weight Weight (Kilograms): 72.300 Physical Exam General Appearance: no apparent distress Head: normocephalic, atraumatic Eyes: PERRL, EOMI Neck: no adenopathy, no JVD Respiratory/Chest: lungs clear, no respiratory distress Cardiovascular: regular rate, rhythm Abdomen/GI: normal bowel sounds, non tender, soft Genitourinary - Female: + pertinent finding (medina catheter in place draining clear yellow urine) Extremities/Musculoskelatal: no calf tenderness, no pedal edema Neurologic/Psych: alert, oriented x 3 Family History Patient reports no known family medical history. Negative for CKD/ESRD Social History Smoking Status: Never smoker Smokeless Tobacco Use: No Alcohol Use: none Drug Use: none Marital Status: Housing Status: lives with family Occupation: retired . 2 sons, 1 daughter in good health. Retired from [employer]. Denies tobacco or alcohol use Laboratory Results Past 24 Hours 04/06/17 06:53 Red Blood Count 3.40, Mean Corpuscular Volume 86.2, Mean Corpuscular Hemoglobin 30.6, Mean Corpuscular Hemoglobin Concent 35.5, Mean Platelet Volume 8.9, Neutrophils (%) (Auto) 67.3, Lymphocytes (%) (Auto) 19.2, Monocytes (%) (Auto) 8.2, Eosinophils (%) (Auto) 3.8, Basophils (%) (Auto) 1.2, Neutrophils # (Auto) 5.84, Lymphocytes # (Auto) 1.67, Monocytes # (Auto) 0.71, Eosinophils # (Auto) 0.33, Basophils # (Auto) 0.10 04/06/17 06:53 Test 04/05/17 11:47 04/05/17 12:38 04/05/17 16:47 04/05/17 18:53 Bedside Glucose 247 mg/dl (70-90) 194 mg/dl (70-90) Prothrombin Time 10.4 SECONDS (9.0-12.0) Prothromb Time International Ratio 1.0 (0.9-1.1) Activated Partial Thromboplast Time 29.6 SECONDS (21.0-31.0) Partial Thromboplastin Ratio 1.1 Test 04/05/17 20:30 04/06/17 02:45 04/06/17 06:53 04/06/17 07:21 Bedside Glucose 242 mg/dl (70-90) 102 mg/dl (70-90) Urine Collection Time 24 HOURS Urine Total Volume 1200 mL Urine Creatinine 75.1 mg/dl Urine Creatinine 24 Hour 0.9 gm/24 HR (0.6-2.5) Urine Creatinine Clearance 24 Hour 27.6 ml/min (88-128) Urine Total Protein 24 Hour 7597.2 mg/24 hr (0-149.1) Urine Total Protein 633.1 mg/dl (0-11.9) White Blood Count 8.68 K/uL (4.8-10.8) Red Blood Count 3.40 M/uL (4.2-5.4) Hemoglobin 10.4 g/dL (12.0-16.0) Hematocrit 29.3 % (37-47) Mean Corpuscular Volume 86.2 fL (80-100) Mean Corpuscular Hemoglobin 30.6 pg (25-34) Mean Corpuscular Hemoglobin Concent 35.5 g/dl (32-36) Platelet Count 184 K/uL (130-400) Mean Platelet Volume 8.9 fL (7.4-10.4) Neutrophils (%) (Auto) 67.3 % Lymphocytes (%) (Auto) 19.2 % Monocytes (%) (Auto) 8.2 % Eosinophils (%) (Auto) 3.8 % Basophils (%) (Auto) 1.2 % Neutrophils # (Auto) 5.84 K/uL (1.4-6.5) Lymphocytes # (Auto) 1.67 K/uL (1.2-3.4) Monocytes # (Auto) 0.71 K/uL (0.11-0.59) Eosinophils # (Auto) 0.33 K/uL (0-0.5) Basophils # (Auto) 0.10 K/uL (0-0.2) RDW Standard Deviation 42.8 fL (36.4-46.3) RDW Coefficient of Variation 13.7 % (11.5-14.5) Immature Granulocyte % (Auto) 0.3 % Immature Granulocyte # (Auto) 0.03 K/uL (0.00-0.02) Anion Gap 10.0 mmol/L (3-11) Est Creatinine Clear Calc Drug Dose 15.8 ml/min Estimated GFR () 22.3 Estimated GFR (Non- 19.2 BUN/Creatinine Ratio 23.7 (10-20) Estimated Average Glucose 157 mg/dl Hemoglobin A1c 7.1 % (4.5-5.6) Calcium Level 8.6 mg/dl (8.5-10.1) Magnesium Level 1.9 mg/dl (1.8-2.4) Allergies Coded Allergies: Carbamazepine (Verified Allergy, Intermediate, RASH, 04/04/17) Carvedilol (Verified Allergy, Intermediate, DIZZINESS, VISUAL DISTURBANCES , 04/04/17) Erythromycin (Verified Allergy, Intermediate, RASH, 04/04/17) Macrolides (Verified Allergy, Intermediate, RASH, 04/04/17) Statins (Verified Adverse Reaction, Intermediate, MUSCLE ACHES, 04/04/17) Medications Current Inpatient Medications Medications (Trade) Dose Ordered Sig/Haja Route Start Time Stop Time Status Last Admin Dose Admin Acetaminophen (Tylenol Tab) 650 mg Q4H PRN PO 04/05/17 00:30 05/05/17 00:29 Alprazolam (Xanax Tab) 0.5 mg HS PO 04/05/17 21:00 05/05/17 20:59 04/05/17 22:02 0.5 MG Aspirin (Ecotrin Tab) 81 mg QAM PO 04/05/17 09:00 05/05/17 08:59 04/06/17 08:17 81 MG Diclofenac Sodium (Voltaren 1% Top Gel) 1 appln BID EXT 04/05/17 09:00 05/05/17 08:59 04/06/17 08:17 1 APPLN EZETIMIBE (Zetia Tab) 10 mg QAM PO 04/05/17 09:00 05/05/17 08:59 04/06/17 08:17 10 MG Metoprolol Tartrate (Lopressor Tab) 100 mg BID PO 04/05/17 09:00 05/05/17 08:59 04/06/17 08:18 100 MG Miscellaneous Information (Order Awaiting Action) 1 ea QS N/A 04/05/17 08:00 05/05/17 07:59 Miscellaneous Information (Order Awaiting Action) 1 ea QS N/A 04/05/17 08:00 05/05/17 07:59 Insulin Glargine (Lantus Solostar Pen) 62 units DAILY@2100 GA 04/06/17 21:00 05/06/17 20:59 Ondansetron HCl (Zofran Odt) 8 mg Q6H PRN PO 04/05/17 00:30 05/05/17 00:29 Insulin Aspart (novoLOG ASPART) SLIDING SCALE If C... ACHS SC 04/05/17 06:30 05/05/17 06:59 04/06/17 08:21 4 UNITS Glucose (Glucose 40% Gel) UD PRN PO 04/05/17 00:30 05/05/17 00:29 Glucose (Glucose Chew Tab) 1 tabs UD PRN PO 04/05/17 00:30 05/05/17 00:29 Dextrose (Dextrose 50% 50ML Syringe) 50 ml UD PRN IV 04/05/17 00:30 05/05/17 00:29 Glucagon (Glucagon Inj) 1 mg UD PRN SQ 04/05/17 00:30 05/05/17 00:29 Isosorbide Mononitrate (Imdur Ext Rel Tab) 60 mg BID PO 04/05/17 21:00 05/05/17 20:59 04/06/17 08:17 60 MG Hydralazine HCl (HydrALAZINE INJ) 10 mg Q4H PRN IV. 04/05/17 06:30 05/05/17 06:29 04/05/17 23:27 10 MG Hydralazine HCl (Apresoline Tab) 50 mg Q8 PO 04/05/17 14:00 05/05/17 13:59 04/06/17 05:47 50 MG Heparin Sodium (Porcine) (Heparin Sq 5000 Unit/0.5ml) 5,000 unit Q8 SQ 04/05/17 22:00 05/05/17 21:59 04/06/17 05:48 5,000 UNIT Lisinopril (Zestril Tab) 10 mg QAM PO 04/07/17 09:00 05/07/17 08:59 UNV Lisinopril (Zestril Tab) 10 mg 1035 ONCE PO 04/06/17 10:35 04/06/17 10:36 UNV Impression (1) Acute kidney failure (2) Chronic kidney disease (3) Proteinuria (4) HTN (hypertension) (5) Diabetes mellitus (6) Coronary artery disease (7) Atrial myxoma (8) Hyperlipidemia Recommendations ACUTE KIDNEY INJURY: -- Hold diuretic. Patient is clinically volume contracted. Suspect that LE edema may be related to CCB therapy or lymphedema -- Kidney function is improving. Monitor serial PRP CHRONIC KIDNEY DISEASE: -- Baseline creatinine has been 1.7 - 2.0. Abdominal CT films reviewed. Patient has mild renal cortical atrophy. Urine microscopy revealed a bland sediment -- Renal US report 04/05: 10 cm kidneys w/ mild cortical atrophy -- Renal artery doppler was negative for large vessel JASMINE. High resistive indices suggest small vessel disease -- 24 hour urine protein 7.5g. Likely due to diabetic nephropathy and hypertension -- Awaiting serum free light chain assay and 24 hour urine immunoelectrophoresis results PROTEINURIA: -- Will start low dose LISSETH inhibitor to lower urinary protein excretion and monitor serum creatinine closely HYPERTENSION: -- 01/23 Echocardiogram shows moderate to severe LVH c/w longstanding arterial HTN. LVEF was preserved. RVSP was wnl. -- Stop Felodipine as this may contribute to LE edema -- Continue Metoprolol -- Continue Hydralazine 50 mg po TID -- Low sodium diet. Dietitian has provided education EDEMA: -- Knee high medium strength compression stockings for use during the day have been ordered
[2017-04-06] MEDS ORDERED: LISINOPRIL 10 MG TAB PO ONE (11:00)
--- NOTE | 2017-04-06 16:06 | CARDIOLOGY PROGRESS NOTE ---
DATE: 04/06/2017 TIME: 15:24 p.m. SUBJECTIVE: Mrs. Dominguez is accompanied today by her daughter and her son. She says she feels much better today. She notices that her edema has improved; however, she has mostly been in bed. She states that her shortness of breath has also improved. She denies chest pain, syncope, near syncope, or palpitations. OBJECTIVE: VITAL SIGNS: Temperature 36.9 degrees, heart rate 67 beats per minute, respiratory rate 16, and blood pressure 177/77 mmHg and overall her blood pressure remains elevated, but improved from presentation. Oxygen saturation is 96% on room air. I's and O's negative 1.6 liters yesterday. Weight is 72.3 kg. GENERAL: No acute distress. She is alert. NECK: No JVD. CARDIAC EXAM: No ventricular heave. Regular, normal S1 and S2. There were no audible murmurs, rubs or gallops. LUNGS: Fine crackles at the left base, which is chronic but otherwise clear. ABDOMEN: Soft, nontender, and nondistended. Normal active bowel sounds. EXTREMITIES: Trace bilateral lower extremity edema. No cyanosis. PSYCHIATRIC: Affect appears appropriate. MEDICATIONS: Include aspirin 81 mg daily, Zetia 10 mg daily, heparin 5,000 units subQ q. 8 hours, hydralazine 50 mg p.o. q. 8 hours, Lantus, isosorbide mononitrate 60 mg b.i.d., lisinopril 10 mg daily started today, and metoprolol tartrate 100 mg p.o. b.i.d. LABORATORY DATA: White blood cell count 8.68, hemoglobin 10.4, and platelets 184. Sodium 140, potassium 3.4, BUN 54, creatinine 2.28 down from 2.37, and magnesium 1.9. Telemetry personally reviewed. Atrial paced. ECG personally reviewed from 04/06/2017 at 07:29 a.m., atrial paced at 60 beats per minute. Right bundle branch block. Possible inferior infarct. ASSESSMENT AND PLAN: 1. Hypertension: Blood pressure has improved somewhat, but remains elevated. Adjustments had been made by Dr. Noyola of nephrology, who is treating her hypertension. 2. Dyspnea with exertion: Etiology uncertain, but her symptoms have improved; however, she has been more sedentary it appears. She has appeared hypovolemic. If her symptoms return, could consider ischemic evaluation at some point; however, she has preferred nonaggressive approach in the past. 3. Edema: Recommend support stockings, which are currently in place. Keep be elevated while sitting. It could have been secondary to calcium channel jose as an outpatient or perhaps venous insufficiency or lymphedema. She appears intravascularly hypovolemic and therefore not likely secondary to heart failure. Continue to hold diuretics. 4. Coronary artery disease, status post coronary artery bypass graft: No angina. Continue aspirin 81 mg daily as well as beta jose. She is intolerant to statin therapy. 5. 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 6. Sick sinus syndrome, status post pacemaker: She follows with EP as an outpatient. 7. Disposition: Cardiology will sign off at this time. Please call for any other questions or concerns. The patient's care has been discussed with Dr. To of the hospitalist service.
[2017-04-06] MEDS: HydrALAZINE HCL 20 MG/ML VIAL IV. PRN (16:09)
--- NOTE | 2017-04-06 19:19 | Hospitalist Progress Note ---
Hospitalist Progress Note Date of Service Apr 06, 2017. Subjective Pt evaluation today including: conversation w/ patient, conversation w/ product management consultant (Cardiology) Pt had an episode of significant nausea this evening shortly after receiving IV hydralazine for a very elevated BP. BP did not come down on recheck so I asked RN to give her evening metoprolol early. She reports feeling emotional today as it is the 3 year anniversary of her 's after being for 59 years. Nausea is now improved on its own and with eating some crackers. She denies CP/SOB/headache. She did not vomit. SHe is moving her bowels regularly, no diarrhea.No fevers All Other Systems: Reviewed and Negative Objective Vital Signs Date Time Temp Pulse Resp B/P (MAP) Pulse Ox O2 Delivery O2 Flow Rate FiO2 04/06/17 17:09 60 183/72 (109) 04/06/17 16:00 Room Air 04/06/17 15:41 37.1 59 16 198/75 (116) 94 Room Air 04/06/17 12:00 Room Air 04/06/17 11:30 36.9 67 16 177/77 (110) 96 Room Air 04/06/17 08:00 Room Air 04/06/17 07:35 36.6 60 16 189/73 (111) 95 Room Air 04/06/17 04:00 Room Air 04/06/17 04:00 36.6 61 18 163/66 (98) 93 Room Air 04/06/17 01:26 161/66 (97) 04/06/17 00:00 Room Air 04/05/17 22:57 37.1 68 18 190/75 (113) 95 Room Air 04/05/17 20:00 Room Air 04/05/17 19:40 36.7 61 20 179/70 (106) 94 Room Air Physical Exam General Appearance: WD/WN, no apparent distress Eyes: normal inspection, sclerae normal ENT: hearing grossly normal Neck: trachea midline Respiratory/Chest: no respiratory distress, no accessory muscle use, + crackles (at bases bilat, otherwise CTAB) Cardiovascular: regular rate, rhythm, no murmur, + pertinent finding (edema much improved, trace bilat in ankles and legs) Abdomen: normal bowel sounds, non tender, soft Extremities: no calf tenderness Neurologic/Psychiatric: alert, normal mood/affect, oriented x 3 Skin: normal color, warm/dry, no rash Laboratory Results Last 24 Hours Test 04/05/17 20:30 04/06/17 02:45 04/06/17 06:53 04/06/17 07:21 Bedside Glucose 242 mg/dl 102 mg/dl Urine Collection Time 24 HOURS Urine Total Volume 1200 mL Urine Creatinine 75.1 mg/dl Urine Creatinine 24 Hour 0.9 gm/24 HR Urine Creatinine Clearance 24 Hour 27.6 ml/min Urine Total Protein 24 Hour 7597.2 mg/24 hr Urine Total Protein 633.1 mg/dl White Blood Count 8.68 K/uL Red Blood Count 3.40 M/uL Hemoglobin 10.4 g/dL Hematocrit 29.3 % Mean Corpuscular Volume 86.2 fL Mean Corpuscular Hemoglobin 30.6 pg Mean Corpuscular Hemoglobin Concent 35.5 g/dl Platelet Count 184 K/uL Mean Platelet Volume 8.9 fL Neutrophils (%) (Auto) 67.3 % Lymphocytes (%) (Auto) 19.2 % Monocytes (%) (Auto) 8.2 % Eosinophils (%) (Auto) 3.8 % Basophils (%) (Auto) 1.2 % Neutrophils # (Auto) 5.84 K/uL Lymphocytes # (Auto) 1.67 K/uL Monocytes # (Auto) 0.71 K/uL Eosinophils # (Auto) 0.33 K/uL Basophils # (Auto) 0.10 K/uL RDW Standard Deviation 42.8 fL RDW Coefficient of Variation 13.7 % Immature Granulocyte % (Auto) 0.3 % Immature Granulocyte # (Auto) 0.03 K/uL Sodium Level 140 mmol/L Potassium Level 3.4 mmol/L Chloride Level 107 mmol/L Carbon Dioxide Level 23 mmol/L Anion Gap 10.0 mmol/L Blood Urea Nitrogen 54 mg/dl Creatinine 2.28 mg/dl Est Creatinine Clear Calc Drug Dose 15.8 ml/min Estimated GFR () 22.3 Estimated GFR (Non- 19.2 BUN/Creatinine Ratio 23.7 Random Glucose 104 mg/dl Estimated Average Glucose 157 mg/dl Hemoglobin A1c 7.1 % Calcium Level 8.6 mg/dl Magnesium Level 1.9 mg/dl Test 04/06/17 11:46 04/06/17 16:21 04/06/17 17:47 Bedside Glucose 134 mg/dl 119 mg/dl 129 mg/dl Assessment and Plan This pt is a marilee 82 yo female with a h/o HTN, CAD, SSS now s/p pacer, chronic diastolic CHF, mild MR, 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 GUSTAVO on CKD stage III/Proteinuria-baseline slope runner 1.7-2.0, now 2.6 on admission, decreased to 2.28 today with holding diuretics. UA with 4+ protein, no blood. 24 hour urine protein with 7.5 grams, Free kappa and lambda light chains pending -continue to hold all diuretics -Nephro started lisinopril 10mg daily today for proteinuria -Appreciate Nephro consult -avoid nephrotoxins, will renally dose all meds -follow PRP Accelerated HTN/HTN/Abnormal ECG- BP 235/85 at highest since admission, BP has improved somewhat since then but remains significantly elevated. ECG with TWIs in lateral leads new from previous, RBBB. Troponin negative, no CP but had SOB on admission. ECHO with normal EF, mild MR, borderline Pulm HTN, stable mass/?myxoma, and grade 1 diastolic dysfunction with mod LVH -Nephrology added hydralazine 50mg po tid -IV hydralazine prn -continue metoprolol 100mg po bid -increased isosorbide to 60mg po bid -dc felodipine as above for LE edema -added lisinopril 10mg daily today -avoiding diuretics -monitor on tele Peripheral edema/Chronic diastolic CHF/Mild MR/Suspect myxoma-could be secondary to nephrotic syndrome vs felodipine side effect, but not likely due to hypervolemia or acute on chronic diastolic CHF. Is intravascularly depleted ECHO with normal EF, mild MR, borderline Pulm HTN, stable mass/?myxoma, and grade 1 diastolic dysfunction with mod LVH. Edema improving -Appreciate Nephrology and Cardiology consults -dcd felodipine in case of adverse side effect -avoid diuretics as she is intravascularly depleted and with GUSTAVO, elevated BUN -compression stockings -low sodium diet, daily weights, dietary consult -no surgery opted in the past for myxoma Nausea-could be related to elevated BP, anxiety, or side effect of IV hydralazine -control BP ECG with lateral TWIs similar to previous -treat anxiety -antiemetics prn -gave po metoprolol early -if not improving, may need IV labetalol CAD, status post CABG in 1992, but no details available/Sick sinus syndrome, status post dual-chamber pacemaker implantation on 10/29/2008 followed by EP. -stable -monitor on tele -continue Zetia, is intolerant to statins -continue ASA DMII-controlled, on jail insulin. HgbA1C here 7.1% -continue Lantus and SSI, accuchecks Hypertriglyceridemia-was > 1000 in the past. Recently switched from fenofibrate to fish oil due to renal failure -continue fish oil Left sided sciatica, lower back pain-ongoing for several months, with h/o falls -tylenol prn pain -PT/OT consults Proph-YASMANY mancia, add on heparin SQ Dispo-remain on telemetry, will need PT/OT consults due to recent falls, leg swelling and left sided sciatica, may need rehab/SNF DNR/DNI as discussed with pt with daughter who is HCPOA at the bedside. She has a living will that daughter has reviewed with her
[2017-04-06] MEDS ORDERED: ALPRAZOLAM 0.5 MG TAB PO ONE (19:45)
[2017-04-06] MEDS: CycloSPORINE 0.05% 0.4 ML 30 UDV/BOX OP SCH (21:23)
[2017-04-06] MEDS: INSULIN GLARGINE SOLOSTAR 100 UNITS/ML 3 ML PEN SC SCH (21:26)
[2017-04-06] MEDS: ALPRAZOLAM 0.5 MG TAB PO SCH (23:01)
[2017-04-07] VITALS (16 sets, daily range): BP systolic 119–203; BP diastolic 62–80; PULSE 54–61; TEMP 36.3–36.8; O2SAT 94–97
[2017-04-07 06:06] LABS: BASO % 0.8 %; BASO ABS # 0.06 K/uL (0-0.2); EOS % 4.4 %; EOS ABS # 0.35 K/uL (0-0.5); HEMATOCRIT 28.6 % (37-47); IG# 0.03 K/uL (0.00-0.02); LYMPH % 23.5 %; LYMPH ABS # 1.86 K/uL (1.2-3.4); MEAN CELL VOLUME 88.3 fL (80-100); MEAN CORPUSCULAR HEMOGLOBIN 30.9 pg (25-34); MEAN PLATELET VOLUME 9.1 fL (7.4-10.4); MONO % 11.9 %; MONO ABS # 0.94 K/uL (0.11-0.59); NEUT ABS # 4.68 K/uL (1.4-6.5); PLATELET COUNT 178 K/uL (130-400); RED CELL DISTRIBUTION WIDTH CV 13.7 % (11.5-14.5); RED CELL DISTRIBUTION WIDTH SD 44.5 fL (36.4-46.3); WHITE BLOOD COUNT 7.92 K/uL (4.8-10.8)
[2017-04-07] MEDS: HEPARIN SOD 5000 UNIT/0.5 ML CARP SQ SCH ×3 (06:19→21:09)
[2017-04-07 06:41] LABS: CALCIUM 8.4 mg/dl (8.5-10.1); CREATININE 2.51 mg/dl (0.60-1.20)
[2017-04-07] MEDS: [UNRECOGNIZED DRUG - OTHER] SCH ×2 (07:31→14:29)
[2017-04-07] MEDS: EZETIMIBE 10MG TAB PO SCH (08:17)
[2017-04-07] MEDS: ASPIRIN 81 MG ECTAB PO SCH (08:17)
[2017-04-07] MEDS: METOPROLOL TARTRATE 100 MG TAB PO SCH ×2 (08:17→21:03)
[2017-04-07] MEDS: ISOSORBIDE MONONITRATE 60 MG TABCR PO SCH ×2 (08:17→21:03)
[2017-04-07] MEDS: CycloSPORINE 0.05% 0.4 ML 30 UDV/BOX OP SCH ×2 (08:18→21:01)
[2017-04-07] MEDS: DICLOFENAC SOD 1% GEL 100 GM TUBE EXT SCH ×2 (08:18→21:04)
[2017-04-07] MEDS: INSULIN ASPART 100 UNITS/ML 3 ML PEN SC SCH ×4 (08:22→21:07)
[2017-04-07] MEDS ORDERED: LISINOPRIL 10 MG TAB PO SCH (09:00)
[2017-04-07] MEDS ORDERED: POLYETHYLENE (MIRALAX) 17 GM PACK PO PRN (09:45)
[2017-04-07] MEDS ORDERED: DOCUSATE SODIUM/SENNA 50/8.6MG TAB PO ONE (09:45)
[2017-04-07] MEDS: LABETALOL HCL IV 5 MG/ML 20ML IV PRN ×2 (11:37→17:46)
[2017-04-07] MEDS ORDERED: NURSING VERBAL MED ORDER ONE (12:00)
--- NOTE | 2017-04-07 12:04 | Nephrology Progress Note ---
Nephrology Progress Note Date of Service Apr 07, 2017. Chief Complaint Acute on chronic kidney injury Subjective Ms. Dominguez was seen and examined in her hospital room this morning. Blood pressure was elevated overnight and treated w/ Labetalol therapy. She currently denies NI, CP, dyspnea or uremic symptoms. Ms. Dominguez reports that her leg edema is improved. She is now wearing compression stockings whenever out of bed. Review of Systems Constitutional: No fever Cardiovascular: No chest pain Respiratory: No dyspnea at rest Abdomen: No pain, No nausea, No vomiting Extremities: + leg edema A complete review of systems was performed. Pertinent positives are noted above. All other systems are negative. Vital Signs Last 8 Hrs Date Time Temp Pulse Resp B/P (MAP) Pulse Ox O2 Delivery O2 Flow Rate FiO2 04/07/17 11:55 60 130/68 (88) 04/07/17 11:46 60 119/66 (83) 04/07/17 11:41 60 131/65 (87) 04/07/17 11:39 60 131/71 (91) 04/07/17 11:33 36.6 61 18 184/76 (112) 97 04/07/17 08:30 Room Air 04/07/17 07:15 36.8 60 17 183/80 (114) 94 Room Air 04/07/17 04:01 Room Air 04/07/17 04:00 36.5 59 19 192/78 (116) 95 Last Recorded Weight Weight (Kilograms): 73.500 Physical Exam General Appearance: no apparent distress Head: normocephalic, atraumatic Eyes: PERRL, EOMI Neck: no adenopathy Respiratory/Chest: lungs clear, no respiratory distress Cardiovascular: regular rate, rhythm Abdomen/GI: normal bowel sounds, non tender, soft Extremities/Musculoskelatal: + swelling, + pertinent finding (compression stockings in place) Neurologic/Psych: alert, oriented x 3 Family History Patient reports no known family medical history. Negative for CKD/ESRD Social History Smoking Status: Never smoker Smokeless Tobacco Use: No Alcohol Use: none Drug Use: none Marital Status: Housing Status: lives with family Occupation: retired . 2 sons, 1 daughter in good health. Retired from [employer]. Denies tobacco or alcohol use Laboratory Results Past 24 Hours 04/07/17 05:44 Red Blood Count 3.24, Mean Corpuscular Volume 88.3, Mean Corpuscular Hemoglobin 30.9, Mean Corpuscular Hemoglobin Concent 35.0, Mean Platelet Volume 9.1, Neutrophils (%) (Auto) 59.0, Lymphocytes (%) (Auto) 23.5, Monocytes (%) (Auto) 11.9, Eosinophils (%) (Auto) 4.4, Basophils (%) (Auto) 0.8, Neutrophils # (Auto ) 4.68, Lymphocytes # (Auto) 1.86, Monocytes # (Auto) 0.94, Eosinophils # (Auto ) 0.35, Basophils # (Auto) 0.06 04/07/17 05:44 Test 04/06/17 16:21 04/06/17 17:47 04/06/17 19:59 04/07/17 05:44 Bedside Glucose 119 mg/dl (70-90) 129 mg/dl (70-90) 199 mg/dl (70-90) White Blood Count 7.92 K/uL (4.8-10.8) Red Blood Count 3.24 M/uL (4.2-5.4) Hemoglobin 10.0 g/dL (12.0-16.0) Hematocrit 28.6 % (37-47) Mean Corpuscular Volume 88.3 fL (80-100) Mean Corpuscular Hemoglobin 30.9 pg (25-34) Mean Corpuscular Hemoglobin Concent 35.0 g/dl (32-36) Platelet Count 178 K/uL (130-400) Mean Platelet Volume 9.1 fL (7.4-10.4) Neutrophils (%) (Auto) 59.0 % Lymphocytes (%) (Auto) 23.5 % Monocytes (%) (Auto) 11.9 % Eosinophils (%) (Auto) 4.4 % Basophils (%) (Auto) 0.8 % Neutrophils # (Auto) 4.68 K/uL (1.4-6.5) Lymphocytes # (Auto) 1.86 K/uL (1.2-3.4) Monocytes # (Auto) 0.94 K/uL (0.11-0.59) Eosinophils # (Auto) 0.35 K/uL (0-0.5) Basophils # (Auto) 0.06 K/uL (0-0.2) RDW Standard Deviation 44.5 fL (36.4-46.3) RDW Coefficient of Variation 13.7 % (11.5-14.5) Immature Granulocyte % (Auto) 0.4 % Immature Granulocyte # (Auto) 0.03 K/uL (0.00-0.02) Anion Gap 7.0 mmol/L (3-11) Est Creatinine Clear Calc Drug Dose 14.5 ml/min Estimated GFR () 19.8 Estimated GFR (Non- 17.1 BUN/Creatinine Ratio 22.6 (10-20) Calcium Level 8.4 mg/dl (8.5-10.1) Magnesium Level 2.0 mg/dl (1.8-2.4) Test 04/07/17 07:38 04/07/17 10:30 04/07/17 11:29 Bedside Glucose 96 mg/dl (70-90) 186 mg/dl (70-90) Allergies Coded Allergies: Carbamazepine (Verified Allergy, Intermediate, RASH, 04/04/17) Carvedilol (Verified Allergy, Intermediate, DIZZINESS, VISUAL DISTURBANCES , 04/04/17) Erythromycin (Verified Allergy, Intermediate, RASH, 04/04/17) Statins (Verified Adverse Reaction, Intermediate, MUSCLE ACHES, 04/04/17) Medications Current Inpatient Medications Medications (Trade) Dose Ordered Sig/Haja Route Start Time Stop Time Status Last Admin Dose Admin Acetaminophen (Tylenol Tab) 650 mg Q4H PRN PO 04/05/17 00:30 05/05/17 00:29 Alprazolam (Xanax Tab) 0.5 mg HS PO 04/05/17 21:00 05/05/17 20:59 04/06/17 23:01 0.5 MG Aspirin (Ecotrin Tab) 81 mg QAM PO 04/05/17 09:00 05/05/17 08:59 04/07/17 08:17 81 MG Diclofenac Sodium (Voltaren 1% Top Gel) 1 appln BID EXT 04/05/17 09:00 05/05/17 08:59 04/07/17 08:18 1 APPLN EZETIMIBE (Zetia Tab) 10 mg QAM PO 04/05/17 09:00 05/05/17 08:59 04/07/17 08:17 10 MG Metoprolol Tartrate (Lopressor Tab) 100 mg BID PO 04/05/17 09:00 05/05/17 08:59 04/07/17 08:17 100 MG Miscellaneous Information (Order Awaiting Action) 1 ea QS N/A 04/05/17 08:00 05/05/17 07:59 Insulin Glargine (Lantus Solostar Pen) 62 units DAILY@2100 SC 04/06/17 21:00 05/06/17 20:59 04/06/17 21:26 62 UNITS Ondansetron HCl (Zofran Odt) 8 mg Q6H PRN PO 04/05/17 00:30 05/05/17 00:29 Insulin Aspart (novoLOG ASPART) SLIDING SCALE If C... ACHS SC 04/05/17 06:30 05/05/17 06:59 04/07/17 08:22 4 UNITS Glucose (Glucose 40% Gel) UD PRN PO 04/05/17 00:30 05/05/17 00:29 Glucose (Glucose Chew Tab) 1 tabs UD PRN PO 04/05/17 00:30 05/05/17 00:29 Dextrose (Dextrose 50% 50ML Syringe) 50 ml UD PRN IV 04/05/17 00:30 05/05/17 00:29 Glucagon (Glucagon Inj) 1 mg UD PRN SQ 04/05/17 00:30 05/05/17 00:29 Isosorbide Mononitrate (Imdur Ext Rel Tab) 60 mg BID PO 04/05/17 21:00 05/05/17 20:59 04/07/17 08:17 60 MG Hydralazine HCl (HydrALAZINE INJ) 10 mg Q4H PRN IV. 04/05/17 06:30 05/05/17 06:29 04/06/17 16:09 10 MG Heparin Sodium (Porcine) (Heparin Sq 5000 Unit/0.5ml) 5,000 unit Q8 SQ 04/05/17 22:00 05/05/17 21:59 04/07/17 06:19 5,000 UNIT Cyclosporine (Restasis) 1 drops BID OP 04/06/17 21:00 05/06/17 20:59 04/07/17 08:18 1 DROPS Labetalol HCl (Normodyne IV) 20 mg Q6H PRN IV 04/06/17 19:30 05/06/17 19:29 04/07/17 11:37 20 MG Polyethylene (Miralax Powder Packet) 17 gm DAILY PRN PO 04/07/17 09:45 05/07/17 09:44 04/07/17 10:13 17 GM Senna/Docusate Sodium (Senokot S Tab) 1 tab QAM PO 04/08/17 09:00 05/08/17 08:59 Miscellaneous Information (Nursing Verbal Med Order) 1 ea ONE ONCE N/A 04/07/17 12:00 04/07/17 12:01 UNV Hydralazine HCl (Apresoline Tab) 75 mg Q8 PO 04/07/17 14:00 05/05/17 13:59 UNV Impression (1) Acute kidney failure (2) Chronic kidney disease (3) Proteinuria (4) HTN (hypertension) (5) Diabetes mellitus (6) Coronary artery disease (7) Atrial myxoma (8) Hyperlipidemia Recommendations ACUTE KIDNEY INJURY: -- Continue to hold diuretic. Patient is clinically volume contracted. Suspect that LE edema may be related to CCB therapy or lymphedema -- Kidney function is improving. Monitor serial PRP CHRONIC KIDNEY DISEASE: -- Baseline creatinine has been 1.7 - 2.0. Abdominal CT films reviewed. Patient has mild renal cortical atrophy. Urine microscopy revealed a bland sediment -- Renal US report 04/05: 10 cm kidneys w/ mild cortical atrophy -- Renal artery doppler was negative for large vessel JASMINE. High resistive indices suggest small vessel disease -- 24 hour urine protein 7.5g. Likely due to diabetic nephropathy and hypertension -- Awaiting serum free light chain assay and 24 hour urine immunoelectrophoresis results PROTEINURIA: -- Patient did not tolerate LISSETH inhibitor due to worsening kidney function. Will avoid LISSETH / ARB. HYPERTENSION: -- 01/23 Echocardiogram shows moderate to severe LVH c/w longstanding arterial HTN. LVEF was preserved. RVSP was wnl. -- Stop Felodipine as this may contribute to LE edema -- Continue Metoprolol -- Increase Hydralazine to 75 mg po TID -- Low sodium diet. Dietitian has provided education EDEMA: -- Knee high medium strength compression stockings for use during the day have been ordered
--- NOTE | 2017-04-07 18:01 | Hospitalist Progress Note ---
Hospitalist Progress Note Date of Service Apr 07, 2017. Subjective Pt evaluation today including: conversation w/ patient, conversation w/ home performance consultant (nephrology) Patient reports she is feeling much better today. No further nausea. No headache or chest pain. No shortness of breath. She moved her bowels a little bit but the stool was hard. Blood pressure remains high today and she had to receive IV labetalol. Nephrology increased her hydralazine to 75 mg 3 times a day. All Other Systems: Reviewed and Negative Objective Vital Signs Date Time Temp Pulse Resp B/P (MAP) Pulse Ox O2 Delivery O2 Flow Rate FiO2 04/07/17 16:28 Room Air 04/07/17 15:02 36.7 54 18 188/75 (112) 94 Room Air 04/07/17 13:26 60 166/71 (102) 04/07/17 12:02 Room Air 04/07/17 11:55 60 130/68 (88) 04/07/17 11:46 60 119/66 (83) 04/07/17 11:41 60 131/65 (87) 04/07/17 11:39 60 131/71 (91) 04/07/17 11:33 36.6 61 18 184/76 (112) 97 04/07/17 08:30 Room Air 04/07/17 07:15 36.8 60 17 183/80 (114) 94 Room Air 04/07/17 04:01 Room Air 04/07/17 04:00 36.5 59 19 192/78 (116) 95 04/07/17 00:39 60 158/62 (94) 04/07/17 00:05 Room Air 04/06/17 23:03 36.6 59 18 187/77 (113) 94 Room Air 04/06/17 20:52 60 156/66 (96) 04/06/17 20:05 Room Air 04/06/17 19:50 36.5 60 18 216/72 (120) 94 Room Air Physical Exam General Appearance: WD/WN, no apparent distress Eyes: normal inspection, sclerae normal ENT: hearing grossly normal Neck: trachea midline Respiratory/Chest: no respiratory distress, no accessory muscle use, + crackles (at the bases bilaterally) Cardiovascular: regular rate, rhythm, no murmur, + pertinent finding (trace pitting edema in the legs and ankles bilaterally improved from previous) Abdomen: normal bowel sounds, non tender, soft, no organomegaly Neurologic/Psychiatric: alert, normal mood/affect, oriented x 3 Skin: normal color, warm/dry, no rash Laboratory Results Last 24 Hours Test 04/06/17 19:59 04/07/17 05:44 04/07/17 07:38 04/07/17 10:30 Bedside Glucose 199 mg/dl 96 mg/dl White Blood Count 7.92 K/uL Red Blood Count 3.24 M/uL Hemoglobin 10.0 g/dL Hematocrit 28.6 % Mean Corpuscular Volume 88.3 fL Mean Corpuscular Hemoglobin 30.9 pg Mean Corpuscular Hemoglobin Concent 35.0 g/dl Platelet Count 178 K/uL Mean Platelet Volume 9.1 fL Neutrophils (%) (Auto) 59.0 % Lymphocytes (%) (Auto) 23.5 % Monocytes (%) (Auto) 11.9 % Eosinophils (%) (Auto) 4.4 % Basophils (%) (Auto) 0.8 % Neutrophils # (Auto) 4.68 K/uL Lymphocytes # (Auto) 1.86 K/uL Monocytes # (Auto) 0.94 K/uL Eosinophils # (Auto) 0.35 K/uL Basophils # (Auto) 0.06 K/uL RDW Standard Deviation 44.5 fL RDW Coefficient of Variation 13.7 % Immature Granulocyte % (Auto) 0.4 % Immature Granulocyte # (Auto) 0.03 K/uL Sodium Level 138 mmol/L Potassium Level 4.0 mmol/L Chloride Level 108 mmol/L Carbon Dioxide Level 23 mmol/L Anion Gap 7.0 mmol/L Blood Urea Nitrogen 57 mg/dl Creatinine 2.51 mg/dl Est Creatinine Clear Calc Drug Dose 14.5 ml/min Estimated GFR () 19.8 Estimated GFR (Non- 17.1 BUN/Creatinine Ratio 22.6 Random Glucose 107 mg/dl Calcium Level 8.4 mg/dl Magnesium Level 2.0 mg/dl Test 04/07/17 11:29 04/07/17 16:28 Bedside Glucose 186 mg/dl 179 mg/dl Assessment and Plan This pt is a marilee 82 yo female with a h/o HTN, CAD, SSS now s/p pacer, chronic diastolic CHF, mild MR, 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 Continuing to hold the diuretics. UA with 4+ protein, no blood. 24 hour urine protein with 7.5 grams, Free kappa and lambda light chains pending. -continue to hold all diuretics -Nephro decided to discontinue lisinopril due to increasing creatinine -Appreciate Nephro consult -avoid nephrotoxins, will renally dose all meds -follow PRP -Will follow-up urine free And lambda light chains as well as immunofixation study Accelerated HTN/HTN/Abnormal ECG- BP 235/85 at highest since admission, BP has improved somewhat since then but remains significantly elevated. It did respond nicely to a dose of IV labetalol earlier today. ECG with TWIs in lateral leads new from previous, RBBB. Troponin negative, no CP but had SOB on admission which has now resolved. ECHO with normal EF, mild MR, borderline Pulm HTN, stable mass/?myxoma, and grade 1 diastolic dysfunction with mod LVH -Increase hydralazine to 75mg po tid -IV hydralazine prn -IV labetalol 20 mg every 6 when necessary-consider switching by mouth metoprolol to by mouth labetalol as she seems to respond better to this-we will discuss with nephrology -continue metoprolol 100mg po bid -increased isosorbide to 60mg po bid -dc felodipine as above for LE edema -avoiding diuretics -monitor on tele-continues to be paced with no other events Peripheral edema/Chronic diastolic CHF/Mild MR/Suspect myxoma-could be secondary to nephrotic syndrome vs felodipine side effect, but not likely due to hypervolemia or acute on chronic diastolic CHF. Was intravascularly depleted upon admission. ECHO with normal EF, mild MR, borderline Pulm HTN, stable mass/?myxoma, and grade 1 diastolic dysfunction with mod LVH. Edema improving -Appreciate Nephrology and Cardiology consults -dcd felodipine in case of adverse side effect -avoid diuretics as she is intravascularly depleted and with GUSTAVO, elevated BUN -compression stockings -low sodium diet, daily weights, dietary consult -no surgery opted in the past for myxoma May have been related to elevated BP, anxiety, or side effect of IV hydralazine- is now completely resolved CAD, status post CABG in 1992, but no details available/Sick sinus syndrome, status post dual-chamber pacemaker implantation on 10/29/2008 followed by EP. -stable -monitor on tele -continue Zetia, is intolerant to statins -continue ASA DMII-controlled, on alf insulin. HgbA1C here 7.1% -continue Lantus and SSI, accuchecks Hypertriglyceridemia-was > 1000 in the past. Recently switched from fenofibrate to fish oil due to renal failure -continue fish oil, Zetia Left sided sciatica, lower back pain-ongoing for several months, with h/o falls -tylenol prn pain -PT/OT consults Proph-YASMANY ibrahime,heparin SQ Dispo-remain on telemetry, will need PT/OT consults due to recent falls, leg swelling and left sided sciatica, may need rehab/SNF DNR/DNI as discussed with pt with daughter who is HCPOA at the bedside. She has a living will that daughter has reviewed with her
[2017-04-07] MEDS: ALPRAZOLAM 0.5 MG TAB PO SCH (21:06)
[2017-04-07] MEDS: INSULIN GLARGINE SOLOSTAR 100 UNITS/ML 3 ML PEN SC SCH (21:08)
[2017-04-08] VITALS (12 sets, daily range): BP systolic 152–216; BP diastolic 55–97; PULSE 58–79; TEMP 36.5–37.1; O2SAT 90–97
[2017-04-08] MEDS: HEPARIN SOD 5000 UNIT/0.5 ML CARP SQ SCH ×3 (06:01→20:57)
[2017-04-08 07:35] LABS: HEMATOCRIT 30.3 % (37-47); HEMOGLOBIN 10.7 g/dL (12.0-16.0); MEAN CELL VOLUME 87.6 fL (80-100); MEAN CORPUSCULAR HEMOGLOBIN 30.9 pg (25-34); MEAN CORPUSCULAR HGB CONC 35.3 g/dl (32-36); MEAN PLATELET VOLUME 9.1 fL (7.4-10.4); PLATELET COUNT 193 K/uL (130-400); RED CELL DISTRIBUTION WIDTH CV 13.6 % (11.5-14.5); RED CELL DISTRIBUTION WIDTH SD 43.1 fL (36.4-46.3); WHITE BLOOD COUNT 7.86 K/uL (4.8-10.8)
[2017-04-08] MEDS: [UNRECOGNIZED DRUG - OTHER] SCH ×3 (08:00→15:32)
[2017-04-08 08:11] LABS: CALCIUM 8.7 mg/dl (8.5-10.1); CREATININE 2.47 mg/dl (0.60-1.20); POTASSIUM 4.2 mmol/L (3.5-5.1)
[2017-04-08] MEDS: METOPROLOL TARTRATE 100 MG TAB PO SCH ×2 (08:22→21:02)
[2017-04-08] MEDS: DOCUSATE SODIUM/SENNA 50/8.6MG TAB PO SCH (08:22)
[2017-04-08] MEDS: EZETIMIBE 10MG TAB PO SCH (08:23)
[2017-04-08] MEDS: ASPIRIN 81 MG ECTAB PO SCH (08:23)
[2017-04-08] MEDS: DICLOFENAC SOD 1% GEL 100 GM TUBE EXT SCH ×2 (08:23→20:59)
[2017-04-08] MEDS: ISOSORBIDE MONONITRATE 60 MG TABCR PO SCH ×2 (08:23→21:00)
[2017-04-08] MEDS: CycloSPORINE 0.05% 0.4 ML 30 UDV/BOX OP SCH ×2 (08:23→20:58)
[2017-04-08] MEDS: INSULIN ASPART 100 UNITS/ML 3 ML PEN SC SCH ×4 (08:36→20:59)
--- NOTE | 2017-04-08 11:37 | Nephrology Progress Note ---
Nephrology Progress Note Date of Service Apr 08, 2017. Chief Complaint Acute on chronic kidney injury Subjective Ms. Dominguez was seen & examined in her hospital room this morning. She was sitting up in a chair wearing her compression stockings. She has completed her 24 hour urine studies and the medina catheter has been removed. Ms. Dominguez reports that she is voiding without difficulty. She voices no new medical concerns. Review of Systems Constitutional: No fever Cardiovascular: No chest pain Respiratory: No dyspnea at rest Abdomen: No pain, No nausea, No vomiting Genitourinary - Female: No dysuria Extremities: + leg edema A complete review of systems was performed. Pertinent positives are noted above. All other systems are negative. Vital Signs Last 8 Hrs Date Time Temp Pulse Resp B/P (MAP) Pulse Ox O2 Delivery O2 Flow Rate FiO2 04/08/17 10:58 36.5 64 18 171/66 (101) 96 04/08/17 08:47 Room Air 04/08/17 07:48 36.7 58 17 194/74 (114) 95 04/08/17 05:21 36.5 60 18 186/63 (104) 96 Room Air 178/77 (110) 04/08/17 04:01 Room Air Last Recorded Weight Weight (Kilograms): 74.600 Physical Exam General Appearance: no apparent distress Head: normocephalic, atraumatic Eyes: PERRL, EOMI Neck: no adenopathy Respiratory/Chest: lungs clear Cardiovascular: regular rate, rhythm Abdomen/GI: normal bowel sounds, non tender, soft Extremities/Musculoskelatal: + pertinent finding (1+ pretibial edema. Compression stockings are in place) Neurologic/Psych: alert, oriented x 3 Family History Patient reports no known family medical history. Negative for CKD/ESRD Social History Smoking Status: Never smoker Smokeless Tobacco Use: No Alcohol Use: none Drug Use: none Marital Status: Housing Status: lives with family Occupation: retired . 2 sons, 1 daughter in good health. Retired from [employer]. Denies tobacco or alcohol use Laboratory Results Past 24 Hours 04/08/17 07:19 04/08/17 07:19 Test 04/07/17 16:28 04/07/17 20:38 04/08/17 07:19 04/08/17 07:36 Bedside Glucose 179 mg/dl (70-90) 238 mg/dl (70-90) 70 mg/dl (70-90) Red Blood Count 3.46 M/uL (4.2-5.4) Mean Corpuscular Volume 87.6 fL (80-100) Mean Corpuscular Hemoglobin 30.9 pg (25-34) Mean Corpuscular Hemoglobin Concent 35.3 g/dl (32-36) RDW Standard Deviation 43.1 fL (36.4-46.3) RDW Coefficient of Variation 13.6 % (11.5-14.5) Mean Platelet Volume 9.1 fL (7.4-10.4) Anion Gap 9.0 mmol/L (3-11) Est Creatinine Clear Calc Drug Dose 14.8 ml/min Estimated GFR () 20.2 Estimated GFR (Non- 17.4 BUN/Creatinine Ratio 23.7 (10-20) Calcium Level 8.7 mg/dl (8.5-10.1) Test 04/08/17 11:13 Bedside Glucose 140 mg/dl (70-90) Allergies Coded Allergies: Carbamazepine (Verified Allergy, Intermediate, RASH, 04/04/17) Carvedilol (Verified Allergy, Intermediate, DIZZINESS, VISUAL DISTURBANCES , 04/04/17) Erythromycin (Verified Allergy, Intermediate, RASH, 04/04/17) Statins (Verified Adverse Reaction, Intermediate, MUSCLE ACHES, 04/04/17) Medications Current Inpatient Medications Medications (Trade) Dose Ordered Sig/Haja Route Start Time Stop Time Status Last Admin Dose Admin Acetaminophen (Tylenol Tab) 650 mg Q4H PRN PO 04/05/17 00:30 05/05/17 00:29 Alprazolam (Xanax Tab) 0.5 mg HS PO 04/05/17 21:00 05/05/17 20:59 04/07/17 21:06 0.5 MG Aspirin (Ecotrin Tab) 81 mg QAM PO 04/05/17 09:00 05/05/17 08:59 04/08/17 08:23 81 MG Diclofenac Sodium (Voltaren 1% Top Gel) 1 appln BID EXT 04/05/17 09:00 05/05/17 08:59 04/08/17 08:23 1 APPLN EZETIMIBE (Zetia Tab) 10 mg QAM PO 04/05/17 09:00 05/05/17 08:59 04/08/17 08:23 10 MG Metoprolol Tartrate (Lopressor Tab) 100 mg BID PO 04/05/17 09:00 05/05/17 08:59 04/08/17 08:22 100 MG Miscellaneous Information (Order Awaiting Action) 1 ea QS N/A 04/05/17 08:00 05/05/17 07:59 Insulin Glargine (Lantus Solostar Pen) 62 units DAILY@2100 SC 04/06/17 21:00 05/06/17 20:59 04/07/17 21:08 62 UNITS Ondansetron HCl (Zofran Odt) 8 mg Q6H PRN PO 04/05/17 00:30 05/05/17 00:29 Insulin Aspart (novoLOG ASPART) SLIDING SCALE If C... ACHS SC 04/05/17 06:30 05/05/17 06:59 04/08/17 08:36 4 UNITS Glucose (Glucose 40% Gel) UD PRN PO 04/05/17 00:30 05/05/17 00:29 Glucose (Glucose Chew Tab) 1 tabs UD PRN PO 04/05/17 00:30 05/05/17 00:29 Dextrose (Dextrose 50% 50ML Syringe) 50 ml UD PRN IV 04/05/17 00:30 05/05/17 00:29 Glucagon (Glucagon Inj) 1 mg UD PRN SQ 04/05/17 00:30 05/05/17 00:29 Isosorbide Mononitrate (Imdur Ext Rel Tab) 60 mg BID PO 04/05/17 21:00 05/05/17 20:59 04/08/17 08:23 60 MG Hydralazine HCl (HydrALAZINE INJ) 10 mg Q4H PRN IV. 04/05/17 06:30 05/05/17 06:29 04/06/17 16:09 10 MG Heparin Sodium (Porcine) (Heparin Sq 5000 Unit/0.5ml) 5,000 unit Q8 SQ 04/05/17 22:00 05/05/17 21:59 04/08/17 06:01 5,000 UNIT Cyclosporine (Restasis) 1 drops BID OP 04/06/17 21:00 05/06/17 20:59 04/08/17 08:23 1 DROPS Labetalol HCl (Normodyne IV) 20 mg Q6H PRN IV 04/06/17 19:30 05/06/17 19:29 04/07/17 17:46 20 MG Polyethylene (Miralax Powder Packet) 17 gm DAILY PRN PO 04/07/17 09:45 05/07/17 09:44 04/07/17 10:13 17 GM Senna/Docusate Sodium (Senokot S Tab) 1 tab QAM PO 04/08/17 09:00 05/08/17 08:59 04/08/17 08:22 1 TAB Hydralazine HCl (Apresoline Tab) 100 mg Q8 PO 04/08/17 14:00 05/05/17 13:59 UNV Impression (1) Acute kidney failure (2) Chronic kidney disease (3) Proteinuria (4) HTN (hypertension) (5) Diabetes mellitus (6) Coronary artery disease (7) Atrial myxoma (8) Hyperlipidemia Recommendations ACUTE KIDNEY INJURY: -- Continue to hold diuretic. Patient is clinically volume contracted. Suspect that LE edema may be related to CCB therapy or lymphedema -- Kidney function is improving. Monitor serial PRP CHRONIC KIDNEY DISEASE: -- Baseline creatinine has been 1.7 - 2.0. Abdominal CT films reviewed. Patient has mild renal cortical atrophy. Urine microscopy revealed a bland sediment -- Renal US report 04/05: 10 cm kidneys w/ mild cortical atrophy -- Renal artery doppler was negative for large vessel JASMINE. High resistive indices suggest small vessel disease -- 24 hour urine protein 7.5g. Likely due to diabetic nephropathy and hypertension -- Awaiting serum free light chain assay and 24 hour urine immunoelectrophoresis results PROTEINURIA: -- Patient did not tolerate LISSETH inhibitor due to worsening kidney function. Will avoid LISSETH / ARB. HYPERTENSION: -- 01/23 Echocardiogram shows moderate to severe LVH c/w longstanding arterial HTN. LVEF was preserved. RVSP was wnl. -- Felodipine stopped as this may have contributed to LE edema -- Continue Metoprolol 100 mg po BID and Isosorbide 60 mg po BID -- Increase Hydralazine to 100 mg po TID -- Low sodium diet. Dietitian has provided education EDEMA: -- Knee high medium strength compression stockings for use during the day have been ordered
[2017-04-08] MEDS: LABETALOL HCL IV 5 MG/ML 20ML IV PRN (16:46)
--- NOTE | 2017-04-08 17:29 | Hospitalist Progress Note ---
Hospitalist Progress Note Date of Service Apr 08, 2017. Subjective Pt evaluation today including: conversation w/ patient Patient states she feels well today. She denies headache, no chest pain or shortness of breath, no further nausea, no abdominal pain. She was out of bed to chair most of the day and felt well with that. She ambulated around the hallways without any symptoms. Renal function slightly improved from yesterday. Blood pressures remain severely elevated Abdomen: + constipation (only able to get a few small pieces of stool out today) All Other Systems: Reviewed and Negative Objective Vital Signs Date Time Temp Pulse Resp B/P (MAP) Pulse Ox O2 Delivery O2 Flow Rate FiO2 04/08/17 16:58 62 194/73 (113) 04/08/17 16:52 59 180/67 (104) 04/08/17 16:50 209/70 (116) 04/08/17 16:40 216/78 (124) 04/08/17 16:33 Room Air 04/08/17 14:41 36.5 60 18 210/71 (117) 97 04/08/17 12:01 Room Air 04/08/17 10:58 36.5 64 18 171/66 (101) 96 04/08/17 08:47 Room Air 04/08/17 07:48 36.7 58 17 194/74 (114) 95 04/08/17 05:21 36.5 60 18 186/63 (104) 96 Room Air 178/77 (110) 04/08/17 04:01 Room Air 04/08/17 00:01 Room Air 04/07/17 22:59 36.3 58 18 179/68 (105) 95 Room Air 04/07/17 20:57 36.4 60 19 150/70 (96) 95 Room Air 04/07/17 20:05 Room Air 04/07/17 18:01 60 165/68 (100) 148/67 (94) 04/07/17 17:52 59 144/67 (92) 04/07/17 17:49 60 178/74 (108) 04/07/17 17:44 60 203/73 (116) Physical Exam General Appearance: WD/WN, no apparent distress Eyes: normal inspection, sclerae normal ENT: hearing grossly normal Neck: trachea midline Respiratory/Chest: no respiratory distress, no accessory muscle use, + crackles (at the bases bilaterally otherwise clear) Cardiovascular: regular rate, rhythm, no murmur, + pertinent finding (trace to 1+ pitting edema in the ankles and distal legs bilaterally) Abdomen: normal bowel sounds, non tender, soft, no organomegaly Extremities: no calf tenderness Neurologic/Psychiatric: alert, normal mood/affect Skin: normal color, warm/dry, no rash Laboratory Results Last 24 Hours Test 04/07/17 20:38 04/08/17 07:19 04/08/17 07:36 04/08/17 11:13 Bedside Glucose 238 mg/dl 70 mg/dl 140 mg/dl White Blood Count 7.86 K/uL Red Blood Count 3.46 M/uL Hemoglobin 10.7 g/dL Hematocrit 30.3 % Mean Corpuscular Volume 87.6 fL Mean Corpuscular Hemoglobin 30.9 pg Mean Corpuscular Hemoglobin Concent 35.3 g/dl RDW Standard Deviation 43.1 fL RDW Coefficient of Variation 13.6 % Platelet Count 193 K/uL Mean Platelet Volume 9.1 fL Sodium Level 138 mmol/L Potassium Level 4.2 mmol/L Chloride Level 107 mmol/L Carbon Dioxide Level 22 mmol/L Anion Gap 9.0 mmol/L Blood Urea Nitrogen 59 mg/dl Creatinine 2.47 mg/dl Est Creatinine Clear Calc Drug Dose 14.8 ml/min Estimated GFR () 20.2 Estimated GFR (Non- 17.4 BUN/Creatinine Ratio 23.7 Random Glucose 79 mg/dl Calcium Level 8.7 mg/dl Test 04/08/17 16:32 Bedside Glucose 119 mg/dl Assessment and Plan This pt is a marilee 82 yo female with a h/o HTN, CAD, SSS now s/p pacer, chronic diastolic CHF, mild MR, 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 GUSTAVO on CKD stage III/Proteinuria-baseline lehr cutter 1.7-2.0, now 2.6 on admission, decreased to 2.28 and then trended back upward after starting lisinopril for significant proteinuria. Creatinine decreased slightly today to 2.47. Continuing to hold the diuretics. UA with 4+ protein, no blood. 24 hour urine protein with 7.5 grams, urine Free kappa and lambda light chains pending. Serum EBER pending. -continue to hold all diuretics -Nephro decided to discontinue lisinopril due to increasing creatinine -Appreciate Nephro consult -avoid nephrotoxins, will renally dose all meds -follow PRP -Will follow-up urine free And lambda light chains as well as immunofixation study in urine and serum Accelerated HTN/HTN/Abnormal ECG- BP 235/85 at highest since admission, BP has improved somewhat since then but remains significantly elevated. It does respond nicely to a dose of IV labetalol. Blood pressures still remain quite elevated with systolics over 200 today-remains asymptomatic ECG with TWIs in lateral leads new from previous, RBBB. Troponin negative, no CP but had SOB on admission which has now resolved. ECHO with normal EF, mild MR, borderline Pulm HTN, stable mass/?myxoma, and grade 1 diastolic dysfunction with mod LVH -Increased hydralazine to 100mg po tid -IV hydralazine prn -Continue IV labetalol 20 mg every 6 when necessary-consider switching by mouth metoprolol to by mouth labetalol as she seems to respond better to this-we will discuss with nephrology -continue metoprolol 100mg po bid -increased isosorbide to 60mg po bid on admission, consider increasing again if blood pressure not coming down -dc felodipine as above for LE edema -avoiding diuretics -monitor on tele-continues to be paced with no other events Peripheral edema/Chronic diastolic CHF/Mild MR/Suspect myxoma-could be secondary to nephrotic syndrome vs felodipine side effect, but not likely due to hypervolemia or acute on chronic diastolic CHF. Was intravascularly depleted upon admission. ECHO with normal EF, mild MR, borderline Pulm HTN, stable mass/?myxoma, and grade 1 diastolic dysfunction with mod LVH. Edema improved -Appreciate Nephrology and Cardiology consults -dcd felodipine in case of adverse side effect -avoid diuretics as she is intravascularly depleted and with GUSTAVO, elevated BUN -Continue compression stockings -low sodium diet, daily weights, dietary consult -no surgery opted in the past for myxoma CAD, status post CABG in 1992, but no details available/Sick sinus syndrome, status post dual-chamber pacemaker implantation on 10/29/2008 followed by EP. -stable -monitor on tele -continue Zetia, is intolerant to statins -continue ASA DMII-controlled, on fci insulin. HgbA1C here 7.1% -continue Lantus and SSI, accuchecks Hypertriglyceridemia-was > 1000 in the past. Recently switched from fenofibrate to fish oil due to renal failure -continue fish oil, Zetia Left sided sciatica, lower back pain-ongoing for several months, with h/o falls -tylenol prn pain -PT/OT consults Proph-YASMANY mancia,heparin SQ Dispo-remain on telemetry, will need PT/OT consults due to recent falls, leg swelling and left sided sciatica, may need rehab/SNF DNR/DNI as discussed with pt with daughter who is HCPOA at the bedside. She has a living will that daughter has reviewed with her
[2017-04-08] MEDS ORDERED: BISACODYL 10 MG SUPP PR PRN (17:30)
[2017-04-08] MEDS: POLYETHYLENE (MIRALAX) 17 GM PACK PO SCH (18:17)
[2017-04-08] MEDS: INSULIN GLARGINE SOLOSTAR 100 UNITS/ML 3 ML PEN SC SCH (20:57)
[2017-04-08] MEDS: ALPRAZOLAM 0.5 MG TAB PO SCH (21:04)
[2017-04-09] VITALS (11 sets, daily range): BP systolic 149–203; BP diastolic 63–81; PULSE 59–75; TEMP 36.3–36.8; O2SAT 94–97
[2017-04-09 05:33] LABS: HEMATOCRIT 27.9 % (37-47); HEMOGLOBIN 9.8 g/dL (12.0-16.0); MEAN CELL VOLUME 88.6 fL (80-100); MEAN CORPUSCULAR HEMOGLOBIN 31.1 pg (25-34); MEAN CORPUSCULAR HGB CONC 35.1 g/dl (32-36); MEAN PLATELET VOLUME 9.3 fL (7.4-10.4); PLATELET COUNT 160 K/uL (130-400); RED CELL DISTRIBUTION WIDTH CV 13.9 % (11.5-14.5); WHITE BLOOD COUNT 9.16 K/uL (4.8-10.8)
[2017-04-09] MEDS: HEPARIN SOD 5000 UNIT/0.5 ML CARP SQ SCH ×3 (06:09→21:25)
[2017-04-09 06:12] LABS: CALCIUM 8.5 mg/dl (8.5-10.1); CREATININE 2.7 mg/dl (0.60-1.20); POTASSIUM 4.4 mmol/L (3.5-5.1)
[2017-04-09] MEDS: [UNRECOGNIZED DRUG - OTHER] SCH ×4 (07:51→23:48)
[2017-04-09] MEDS: CycloSPORINE 0.05% 0.4 ML 30 UDV/BOX OP SCH ×2 (07:52→21:10)
[2017-04-09] MEDS: DICLOFENAC SOD 1% GEL 100 GM TUBE EXT SCH ×2 (07:52→21:12)
[2017-04-09] MEDS: ASPIRIN 81 MG ECTAB PO SCH (07:54)
[2017-04-09] MEDS: ISOSORBIDE MONONITRATE 60 MG TABCR PO SCH ×2 (07:54→21:10)
[2017-04-09] MEDS: EZETIMIBE 10MG TAB PO SCH (07:54)
[2017-04-09] MEDS: METOPROLOL TARTRATE 100 MG TAB PO SCH (07:55)
[2017-04-09] MEDS: POLYETHYLENE (MIRALAX) 17 GM PACK PO SCH (07:55)
[2017-04-09] MEDS: INSULIN ASPART 100 UNITS/ML 3 ML PEN SC SCH ×4 (08:03→21:26)
[2017-04-09] MEDS: DOCUSATE SODIUM/SENNA 50/8.6MG TAB PO SCH (08:55)
--- NOTE | 2017-04-09 10:13 | Nephrology Progress Note ---
Nephrology Progress Note Date of Service Apr 09, 2017. Chief Complaint Acute on chronic kidney injury Subjective Ms. Dominguez was seen & examined in her hospital room this morning. She was sitting up in a chair wearing her compression stockings. Ms. Dominguez denies fever , flank pain or dyspnea. Her LE edema is subjectively improved. Her primary concern is weakness. She has not yet started physical therapy Review of Systems Constitutional: No fever Cardiovascular: No chest pain Respiratory: No dyspnea at rest Abdomen: No pain, No nausea, No vomiting Extremities: + leg edema A complete review of systems was performed. Pertinent positives are noted above. All other systems are negative. Vital Signs Last 8 Hrs Date Time Temp Pulse Resp B/P (MAP) Pulse Ox O2 Delivery O2 Flow Rate FiO2 04/09/17 07:40 36.7 60 18 164/81 (108) 95 Room Air 04/09/17 05:00 36.5 59 16 169/68 (101) 97 Room Air Last Recorded Weight Weight (Kilograms): 74.600 Physical Exam General Appearance: no apparent distress Head: normocephalic, atraumatic Eyes: PERRL, EOMI Neck: no adenopathy Respiratory/Chest: lungs clear, no respiratory distress Cardiovascular: regular rate, rhythm Abdomen/GI: normal bowel sounds, non tender, soft Extremities/Musculoskelatal: + pertinent finding (1+ pretibial pitting edema. Patient has compression stockings in place) Neurologic/Psych: alert, oriented x 3 Family History Patient reports no known family medical history. Negative for CKD/ESRD Social History Smoking Status: Never smoker Smokeless Tobacco Use: No Alcohol Use: none Drug Use: none Marital Status: Housing Status: lives with family Occupation: retired . 2 sons, 1 daughter in good health. Retired from [employer]. Denies tobacco or alcohol use Laboratory Results Past 24 Hours 04/09/17 05:22 04/09/17 05:22 Test 04/08/17 11:13 04/08/17 16:32 04/08/17 17:49 04/08/17 20:31 Bedside Glucose 140 mg/dl (70-90) 119 mg/dl (70-90) 139 mg/dl (70-90) 142 mg/dl (70-90) Test 04/09/17 05:22 04/09/17 07:43 Red Blood Count 3.15 M/uL (4.2-5.4) Mean Corpuscular Volume 88.6 fL (80-100) Mean Corpuscular Hemoglobin 31.1 pg (25-34) Mean Corpuscular Hemoglobin Concent 35.1 g/dl (32-36) RDW Standard Deviation 45.0 fL (36.4-46.3) RDW Coefficient of Variation 13.9 % (11.5-14.5) Mean Platelet Volume 9.3 fL (7.4-10.4) Anion Gap 6.0 mmol/L (3-11) Est Creatinine Clear Calc Drug Dose 13.5 ml/min Estimated GFR () 18.2 Estimated GFR (Non- 15.7 BUN/Creatinine Ratio 22.1 (10-20) Calcium Level 8.5 mg/dl (8.5-10.1) Magnesium Level 2.1 mg/dl (1.8-2.4) Bedside Glucose 156 mg/dl (70-90) Allergies Coded Allergies: Carbamazepine (Verified Allergy, Intermediate, RASH, 04/04/17) Carvedilol (Verified Allergy, Intermediate, DIZZINESS, VISUAL DISTURBANCES , 04/04/17) Erythromycin (Verified Allergy, Intermediate, RASH, 04/04/17) Statins (Verified Adverse Reaction, Intermediate, MUSCLE ACHES, 04/04/17) Medications Current Inpatient Medications Medications (Trade) Dose Ordered Sig/Haja Route Start Time Stop Time Status Last Admin Dose Admin Acetaminophen (Tylenol Tab) 650 mg Q4H PRN PO 04/05/17 00:30 05/05/17 00:29 Alprazolam (Xanax Tab) 0.5 mg HS PO 04/05/17 21:00 05/05/17 20:59 04/08/17 21:04 0.5 MG Aspirin (Ecotrin Tab) 81 mg QAM PO 04/05/17 09:00 05/05/17 08:59 04/09/17 07:54 81 MG Diclofenac Sodium (Voltaren 1% Top Gel) 1 appln BID EXT 04/05/17 09:00 05/05/17 08:59 04/09/17 07:52 1 APPLN EZETIMIBE (Zetia Tab) 10 mg QAM PO 04/05/17 09:00 05/05/17 08:59 04/09/17 07:54 10 MG Metoprolol Tartrate (Lopressor Tab) 100 mg BID PO 04/05/17 09:00 05/05/17 08:59 04/09/17 07:55 100 MG Miscellaneous Information (Order Awaiting Action) 1 ea QS N/A 04/05/17 08:00 05/05/17 07:59 Insulin Glargine (Lantus Solostar Pen) 62 units DAILY@2100 SC 04/06/17 21:00 05/06/17 20:59 04/08/17 20:57 62 UNITS Ondansetron HCl (Zofran Odt) 8 mg Q6H PRN PO 04/05/17 00:30 05/05/17 00:29 04/08/17 18:13 8 MG Insulin Aspart (novoLOG ASPART) SLIDING SCALE If C... ACHS SC 04/05/17 06:30 05/05/17 06:59 04/09/17 08:03 6 UNITS Glucose (Glucose 40% Gel) UD PRN PO 04/05/17 00:30 05/05/17 00:29 Glucose (Glucose Chew Tab) 1 tabs UD PRN PO 04/05/17 00:30 05/05/17 00:29 Dextrose (Dextrose 50% 50ML Syringe) 50 ml UD PRN IV 04/05/17 00:30 05/05/17 00:29 Glucagon (Glucagon Inj) 1 mg UD PRN SQ 04/05/17 00:30 05/05/17 00:29 Isosorbide Mononitrate (Imdur Ext Rel Tab) 60 mg BID PO 04/05/17 21:00 05/05/17 20:59 04/09/17 07:54 60 MG Hydralazine HCl (HydrALAZINE INJ) 10 mg Q4H PRN IV. 04/05/17 06:30 05/05/17 06:29 04/06/17 16:09 10 MG Heparin Sodium (Porcine) (Heparin Sq 5000 Unit/0.5ml) 5,000 unit Q8 SQ 04/05/17 22:00 05/05/17 21:59 04/09/17 06:09 5,000 UNIT Cyclosporine (Restasis) 1 drops BID OP 04/06/17 21:00 05/06/17 20:59 04/09/17 07:52 1 DROPS Labetalol HCl (Normodyne IV) 20 mg Q6H PRN IV 04/06/17 19:30 05/06/17 19:29 04/08/17 16:46 20 MG Senna/Docusate Sodium (Senokot S Tab) 1 tab QAM PO 04/08/17 09:00 05/08/17 08:59 04/09/17 08:55 1 TAB Hydralazine HCl (Apresoline Tab) 100 mg Q8 PO 04/08/17 14:00 05/05/17 13:59 04/09/17 06:10 100 MG Polyethylene (Miralax Powder Packet) 17 gm DAILY PO 04/08/17 17:30 05/07/17 09:44 04/09/17 07:55 17 GM Bisacodyl (Dulcolax Supp) 10 mg DAILY PRN [place] 04/08/17 17:30 05/08/17 17:29 Spironolactone (Aldactone Tab) 25 mg QAM PO 04/09/17 09:00 05/09/17 08:59 Impression (1) Acute kidney failure (2) Chronic kidney disease (3) Proteinuria (4) HTN (hypertension) (5) Diabetes mellitus (6) Coronary artery disease (7) Atrial myxoma (8) Hyperlipidemia Ms. Dominguez has CKD w/ baseline creatinine 1.7 - 2.0 on the basis of microvascular disease. She was admitted for evaluation of progressive LE edema and hypertensive urgency. Renal US revealed 10.5 cm kidneys w/ cortical atrophy. Urinalysis was benign. UPCR ~ 7g. SIEP/UIEP are pending. Kidney function has worsened in the setting of LISSETH inhibitor and loop diuretic therapy. Echocardiogram revealed LVEF 65 - 70% w/ mild MR, PASP 35 - 40 mm HG, RA 15 mm HG, dilated IVC and evidence of diastolic dysfunction. 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 Recommendations ACUTE KIDNEY INJURY: -- Kidney function is fluctuating. Electrolyte balance is acceptable. Continue to monitor serial PRP -- Discussed with patient today that renal impairment may be progressive. Briefly discussed vascular access creation and IHD. Will consider pursuing AVF creation if patient has a sustained rise in serum creatinine to 3.0 or greater CHRONIC KIDNEY DISEASE: -- Baseline creatinine has been 1.7 - 2.0. Abdominal CT films reviewed. Patient has mild renal cortical atrophy. Urine microscopy revealed a bland sediment -- Renal US report 04/05: 10.5 cm kidneys w/ mild cortical atrophy -- Renal artery doppler was negative for large vessel JASMINE. High resistive indices suggest small vessel disease -- 24 hour urine protein 7.5g. Likely due to diabetic nephropathy and hypertension -- Awaiting serum free light chain assay and 24 hour urine immunoelectrophoresis results (pending 04/09/17 am) PROTEINURIA: -- Patient did not tolerate LISSETH inhibitor due to worsening kidney function. Will avoid LISSETH / ARB. HYPERTENSION: -- 03/25 Echocardiogram shows moderate to severe LVH c/w longstanding arterial HTN. LVEF 65 - 70% w/ mild MR, pulmonary HTN and elevated right sided pressures -- Felodipine stopped as this may have contributed to LE edema -- Change Metoprolol to Labetalol 100 mg po BID -- Continue Isosorbide 60 mg po BID -- Continue Hydralazine 100 mg po TID -- Will add Spironolactone 50 mg po daily EDEMA: -- Low sodium diet. Dietitian has provided education -- Patient is wearing knee high compression stockings whenever OOB -- Edema is likely reflective of diastolic dysfunction and elevated right sided heart pressure as noted on 03/25 echocardiogram OTHER: -- Recommend physical therapy for strengthening exercises
[2017-04-09] MEDS: SPIRONOLACTONE 25 MG TAB PO SCH (10:16)
--- NOTE | 2017-04-09 10:32 | Hospitalist Progress Note ---
Hospitalist Progress Note Date of Service Apr 09, 2017. Subjective Pt evaluation today including: conversation w/ patient, conversation w/ water resource consultant (Nephrology) Voiding: no voiding problems Had an episode of N/V x 1 last evening after IV labetalol given. BPs somewhat improved today. Discussed case with Nephrology today who broached topic of dialysis in the future. No NI,CP,SOB. Is still not moving bowels well-just 2 small hard stools yesterday Constitutional: No fever Eyes: No problem reported Respiratory: No shortness of breath Cardiovascular: No chest pain All Other Systems: Reviewed and Negative Objective Vital Signs Date Time Temp Pulse Resp B/P (MAP) Pulse Ox O2 Delivery O2 Flow Rate FiO2 04/09/17 07:40 36.7 60 18 164/81 (108) 95 Room Air 04/09/17 05:00 36.5 59 16 169/68 (101) 97 Room Air 04/09/17 00:05 Room Air 04/08/17 23:40 36.7 79 20 152/63 (92) 90 Room Air 04/08/17 20:47 37.1 61 16 180/55 (96) 94 Room Air 04/08/17 20:05 Room Air 04/08/17 18:55 36.5 78 18 95 04/08/17 17:51 186/97 (126) 04/08/17 16:58 62 194/73 (113) 04/08/17 16:52 59 180/67 (104) 04/08/17 16:50 209/70 (116) 04/08/17 16:40 216/78 (124) 04/08/17 16:33 Room Air 04/08/17 14:41 36.5 60 18 210/71 (117) 97 04/08/17 12:01 Room Air 04/08/17 10:58 36.5 64 18 171/66 (101) 96 Physical Exam General Appearance: WD/WN, no apparent distress (sitting in chair at bedside, NAD) Eyes: normal inspection, sclerae normal ENT: hearing grossly normal Neck: trachea midline Respiratory/Chest: no respiratory distress, no accessory muscle use, + crackles (at bases bilat, otherwise clear) Cardiovascular: regular rate, rhythm, no murmur, + pertinent finding (1+ pitting edema legs to knees bilat) Abdomen: normal bowel sounds, non tender, soft Extremities: non-tender, no calf tenderness Neurologic/Psychiatric: alert, normal mood/affect, oriented x 3 Skin: normal color, warm/dry, no rash Laboratory Results Last 24 Hours Test 04/08/17 11:13 04/08/17 16:32 04/08/17 17:49 04/08/17 20:31 Bedside Glucose 140 mg/dl 119 mg/dl 139 mg/dl 142 mg/dl Test 04/09/17 05:22 04/09/17 07:43 White Blood Count 9.16 K/uL Red Blood Count 3.15 M/uL Hemoglobin 9.8 g/dL Hematocrit 27.9 % Mean Corpuscular Volume 88.6 fL Mean Corpuscular Hemoglobin 31.1 pg Mean Corpuscular Hemoglobin Concent 35.1 g/dl RDW Standard Deviation 45.0 fL RDW Coefficient of Variation 13.9 % Platelet Count 160 K/uL Mean Platelet Volume 9.3 fL Sodium Level 137 mmol/L Potassium Level 4.4 mmol/L Chloride Level 108 mmol/L Carbon Dioxide Level 23 mmol/L Anion Gap 6.0 mmol/L Blood Urea Nitrogen 60 mg/dl Creatinine 2.70 mg/dl Est Creatinine Clear Calc Drug Dose 13.5 ml/min Estimated GFR () 18.2 Estimated GFR (Non- 15.7 BUN/Creatinine Ratio 22.1 Random Glucose 136 mg/dl Calcium Level 8.5 mg/dl Magnesium Level 2.1 mg/dl Bedside Glucose 156 mg/dl Assessment and Plan This pt is a marilee 82 yo female with a h/o HTN, CAD, SSS now s/p pacer, chronic diastolic CHF, mild MR, 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 GUSTAVO on CKD stage III/Proteinuria-baseline manager rehab 1.7-2.0, now 2.6 on admission, decreased to 2.28 and then trended back upward after starting lisinopril for significant proteinuria. Creatinine back up today to 2.7. Continuing to hold her lasix and now permanently dcd ACEI. UA with 4+ protein, no blood. 24 hour urine protein with 7.5 grams, urine Free kappa and lambda light chains pending. Serum EBER pending. -continue to hold lasix, but Nephro starting aldactone today -Nephro decided to discontinue lisinopril due to increasing creatinine -Appreciate Nephro consult -avoid nephrotoxins, will renally dose all meds -follow PRP -Will follow-up urine free and lambda light chains as well as immunofixation study in urine and serum Accelerated HTN/HTN/Abnormal ECG- BP 235/85 at highest since admission, BP has improved somewhat since then but continues to remain significantly elevated. It does respond nicely to a dose of IV labetalol, but then had N/V after administration. Remains asymptomatic. Lasix discontinued for GUSTAVO on admission ECG with TWIs in lateral leads new from previous, RBBB. Troponin negative, no CP but had SOB on admission which has now resolved. ECHO with normal EF, mild MR, borderline Pulm HTN, stable mass/?myxoma, and grade 1 diastolic dysfunction with mod LVH -continue increased dose hydralazine to 100mg po tid -IV hydralazine prn, IV labetalol prn -switch metoprolol to Labetalol 200mg po bid today as she seems to respond better to this- discussed with nephrology -starting aldactone 25mg daily as above as per Nephro -no further ACEI/ARB should be given -increased isosorbide to 60mg po bid on admission, consider increasing again if blood pressure not coming down -dcd felodipine as above for LE edema Peripheral edema/Chronic diastolic CHF/Mild MR/Suspect myxoma-could be secondary to nephrotic syndrome vs felodipine side effect, but not likely due to hypervolemia or acute on chronic diastolic CHF. Was intravascularly depleted upon admission. ECHO with normal EF, mild MR, borderline Pulm HTN, stable mass/?myxoma, and grade 1 diastolic dysfunction with mod LVH. Edema improved -Appreciate Nephrology and Cardiology consults -dcd felodipine in case of adverse side effect -avoid diuretics as she is intravascularly depleted and with GUSTAVO, elevated BUN, but starting aldactone today as above -Continue compression stockings -low sodium diet, daily weights, dietary consult -no surgery opted in the past for myxoma CAD, status post CABG in 1992, but no details available/Sick sinus syndrome, status post dual-chamber pacemaker implantation on 10/29/2008 followed by EP. -remains always paced on tele, review of outpt records shows pacer functioning well and 100% atrial paced in 12/[address] Farrell--> ok to transfer to medical today -continue Zetia, is intolerant to statins -continue ASA -f/u Cardiology as outpt DMII-controlled, on roasterman insulin. HgbA1C here 7.1% -continue Lantus and SSI, accuchecks Hypertriglyceridemia-was > 1000 in the past. Recently switched from fenofibrate to fish oil due to renal failure -continue Zetia here -restart fish oil on discharge Left sided sciatica, lower back pain-ongoing for several months, with h/o falls -tylenol prn pain, voltaren gel ok as minimal systemic absorption -PT/OT consults Proph-YASMANY hose,heparin SQ Dispo-transfer to medical, will need PT/OT consults due to recent falls, leg swelling and left sided sciatica, may need rehab/SNF DNR/DNI as discussed with pt with daughter who is HCPOA at the bedside. She has a living will that daughter has reviewed with her
[2017-04-09] MEDS: HydrALAZINE HCL 20 MG/ML VIAL IV. PRN (12:27)
[2017-04-09] MEDS: LABETALOL HCL 200 MG TAB PO SCH (21:11)
[2017-04-09] MEDS: INSULIN GLARGINE SOLOSTAR 100 UNITS/ML 3 ML PEN SC SCH (21:25)
[2017-04-09] MEDS: ALPRAZOLAM 0.5 MG TAB PO SCH (22:18)
[2017-04-10] VITALS (7 sets, daily range): BP systolic 101–160; BP diastolic 53–67; PULSE 59–77; TEMP 36.4–36.7; O2SAT 94–96
[2017-04-10] MEDS: HEPARIN SOD 5000 UNIT/0.5 ML CARP SQ SCH ×3 (05:55→22:23)
[2017-04-10] MEDS: [UNRECOGNIZED DRUG - OTHER] SCH ×2 (08:00→16:56)
[2017-04-10 08:02] LABS: CALCIUM 8.6 mg/dl (8.5-10.1); CREATININE 2.97 mg/dl (0.60-1.20); POTASSIUM 4.3 mmol/L (3.5-5.1)
[2017-04-10] MEDS: POLYETHYLENE (MIRALAX) 17 GM PACK PO SCH (09:00)
[2017-04-10] MEDS: DOCUSATE SODIUM/SENNA 50/8.6MG TAB PO SCH (09:13)
[2017-04-10] MEDS: CycloSPORINE 0.05% 0.4 ML 30 UDV/BOX OP SCH ×2 (09:13→21:18)
[2017-04-10] MEDS: DICLOFENAC SOD 1% GEL 100 GM TUBE EXT SCH ×2 (09:13→21:19)
[2017-04-10] MEDS: EZETIMIBE 10MG TAB PO SCH (09:14)
[2017-04-10] MEDS: ISOSORBIDE MONONITRATE 60 MG TABCR PO SCH ×2 (09:14→21:18)
[2017-04-10] MEDS: SPIRONOLACTONE 25 MG TAB PO SCH (09:14)
[2017-04-10] MEDS: ASPIRIN 81 MG ECTAB PO SCH (09:14)
[2017-04-10] MEDS: INSULIN ASPART 100 UNITS/ML 3 ML PEN SC SCH ×4 (09:20→22:24)
--- NOTE | 2017-04-10 09:22 | Progress Note ---
Subjective Date of Service: Apr 10, 2017. Subjective Patient has no complaints at this time. However, she is getting nausea around dinner. Patient denies any chest pain, diaphoresis, sob. Problem List Medical Problems: (1) Acute kidney failure Status: Acute (2) Dehydration Status: Acute (3) HTN (hypertension) Status: Acute (4) Influenza Status: Acute (5) Proteinuria Status: Acute Objective Vital Signs Date Time Temp Pulse Resp B/P (MAP) Pulse Ox O2 Delivery O2 Flow Rate FiO2 04/10/17 05:57 36.6 66 20 158/61 (93) 96 Room Air 04/10/17 00:10 36.7 61 18 101/53 (69) 94 Room Air 04/10/17 00:00 Room Air 04/09/17 22:24 64 154/63 (93) 94 Room Air 04/09/17 21:08 65 193/78 (116) 04/09/17 16:00 94 Room Air 04/09/17 15:04 36.8 61 16 168/65 (99) 94 Room Air 04/09/17 14:15 149/64 (92) 04/09/17 12:26 36.3 75 18 203/72 (115) 97 Room Air 04/09/17 11:36 173/65 (101) 04/09/17 11:30 Room Air 04/09/17 11:05 173/65 (101) Physical Exam Comments: General Appearance: WD/WN, no apparent distress (sitting in chair at bedside, NAD) Eyes: normal inspection, sclerae normal ENT: hearing grossly normal Neck: trachea midline Respiratory/Chest: no respiratory distress, no accessory muscle use, + crackles (at bases bilat, otherwise clear) Cardiovascular: regular rate, rhythm, no murmur, + pertinent finding (1+ pitting edema legs to knees bilat) Abdomen: normal bowel sounds, non tender, soft Extremities: non-tender, no calf tenderness Neurologic/Psychiatric: alert, normal mood/affect, oriented x 3 Skin: normal color, warm/dry, no rash Laboratory Results Last 24 Hours Test 04/09/17 11:18 04/09/17 15:52 04/09/17 19:47 04/10/17 06:24 Bedside Glucose 237 mg/dl 179 mg/dl 240 mg/dl Sodium Level 134 mmol/L Potassium Level 4.3 mmol/L Chloride Level 105 mmol/L Carbon Dioxide Level 21 mmol/L Anion Gap 9.0 mmol/L Blood Urea Nitrogen 70 mg/dl Creatinine 2.97 mg/dl Est Creatinine Clear Calc Drug Dose 12.1 ml/min Estimated GFR () 16.2 Estimated GFR (Non- 14.0 BUN/Creatinine Ratio 23.6 Random Glucose 178 mg/dl Calcium Level 8.6 mg/dl Test 04/10/17 07:35 Bedside Glucose 179 mg/dl Assessment and Plan This pt is a marilee 82 yo female with a h/o HTN, CAD, SSS now s/p pacer, chronic diastolic CHF, mild MR, 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 GUSTAVO on CKD stage III/Proteinuria-baseline seo assistant 1.7-2.0, now 2.6 on admission, decreased to 2.28 and then trended back upward after starting lisinopril for significant proteinuria. Creatinine continues to trend up today to 2.9. Continuing to hold her lasix and now permanently dcd ACEI. UA with 4+ protein, no blood. 24 hour urine protein with 7.5 grams, urine Free kappa and lambda light chains pending. Serum EBER pending. -continue to hold lasix, but Nephro starting aldactone today -Nephro decided to discontinue lisinopril due to increasing creatinine -Appreciate Nephro consult -avoid nephrotoxins, will renally dose all meds -follow PRP -Nephrology did discuss about vascular access for possible IHD. -- Renal US report 04/05: 10.5 cm kidneys w/ mild cortical atrophy -- Renal artery doppler was negative for large vessel JASMINE. High resistive indices suggest small vessel disease -- 24 hour urine protein 7.5g. Likely due to diabetic nephropathy and hypertension -- Awaiting serum free light chain assay and 24 hour urine immunoelectrophoresis results (pending 04/09/18 am) -Will follow-up urine free and lambda light chains as well as immunofixation study in urine and serum Accelerated HTN/HTN/Abnormal ECG- BP 235/85 at highest since admission, BP has improved somewhat since then but continues to remain significantly elevated. It does respond nicely to a dose of IV labetalol, but then had N/V after administration. Remains asymptomatic. Lasix discontinued for GUSTAVO on admission ECG with TWIs in lateral leads new from previous, RBBB. Troponin negative, no CP but had SOB on admission which has now resolved. ECHO with normal EF, mild MR, borderline Pulm HTN, stable mass/?myxoma, and grade 1 diastolic dysfunction with mod LVH -continue increased dose hydralazine to 100mg po tid -IV hydralazine prn, IV labetalol prn -switch metoprolol to Labetalol 200mg po bid today as she seems to respond better to this- discussed with nephrology -starting aldactone 25mg daily as above as per Nephro -no further ACEI/ARB should be given -increased isosorbide to 60mg po bid on admission, consider increasing again if blood pressure not coming down -dcd felodipine by Dr. To as above for LE edema -May consider to restart lower dose tomorrow if BP remains elevated Peripheral edema/Chronic diastolic CHF/Mild MR/Suspect myxoma-could be secondary to nephrotic syndrome vs felodipine side effect, but not likely due to hypervolemia or acute on chronic diastolic CHF. Was intravascularly depleted upon admission. ECHO with normal EF, mild MR, borderline Pulm HTN, stable mass/?myxoma, and grade 1 diastolic dysfunction with mod LVH. Edema improved -Appreciate Nephrology and Cardiology consults -dcd felodipine in case of adverse side effect -avoid diuretics as she is intravascularly depleted and with GUSTAVO, elevated BUN, but starting aldactone today as above -Continue compression stockings -low sodium diet, daily weights, dietary consult -no surgery opted in the past for myxoma CAD, status post CABG in 1992, but no details available/Sick sinus syndrome, status post dual-chamber pacemaker implantation on 10/29/2008 followed by EP. -remains always paced on tele, review of outpt records shows pacer functioning well and 100% atrial paced in 12/[address] Farrell--> ok to transfer to medical today -continue Zetia, is intolerant to statins -continue ASA -f/u Cardiology as outpt DMII-controlled, on long term care administrator insulin. HgbA1C here 7.1% -continue Lantus and SSI, accuchecks Hypertriglyceridemia-was > 1000 in the past. Recently switched from fenofibrate to fish oil due to renal failure -continue Zetia here -restart fish oil on discharge Left sided sciatica, lower back pain-ongoing for several months, with h/o falls -tylenol prn pain, voltaren gel ok as minimal systemic absorption -PT/OT consults Proph-YASMANY hose,heparin SQ Dispo-transfer to medical, will need PT/OT consults due to recent falls, leg swelling and left sided sciatica, may need rehab/SNF DNR/DNI as discussed with pt with daughter who is HCPOA at the bedside. She has a living will that daughter has reviewed with her
--- NOTE | 2017-04-10 09:54 | Nephrology Progress Note ---
Nephrology Progress Note Date of Service Apr 10, 2017. Chief Complaint GUSTAVO, CKD, HTN Subjective No acute events overnight. Nava feels well this morning. She denies headache. She denies chest pain or palpitations. She has not experienced shortness of breath. No urinary complaints. Review of Systems A complete review of systems was performed. Pertinent positives are noted above. All other systems are negative. Vital Signs Last 8 Hrs Date Time Temp Pulse Resp B/P (MAP) Pulse Ox O2 Delivery O2 Flow Rate FiO2 04/10/17 09:16 60 146/65 (92) 04/10/17 05:57 36.6 66 20 158/61 (93) 96 Room Air Last Recorded Weight Weight (Kilograms): 72.300 Physical Exam General Appearance: WD/WN, no apparent distress Head: normocephalic, atraumatic Eyes: normal inspection, sclerae normal ENT: normal ENT inspection, pharynx normal Neck: supple, no JVD Respiratory/Chest: lungs clear, no respiratory distress, no accessory muscle use Cardiovascular: regular rate, rhythm, no gallop, no murmur Abdomen/GI: non tender, soft Extremities/Musculoskelatal: normal inspection, no pedal edema Neurologic/Psych: alert, oriented x 3 Family History Patient reports no known family medical history. Negative for CKD/ESRD Social History Smoking Status: Never smoker Smokeless Tobacco Use: No Alcohol Use: none Drug Use: none Marital Status: Housing Status: lives with family Occupation: retired . 2 sons, 1 daughter in good health. Retired from [employer]. Denies tobacco or alcohol use Laboratory Results Past 24 Hours 04/10/17 06:24 Test 04/09/17 11:18 04/09/17 15:52 04/09/17 19:47 04/10/17 06:24 Bedside Glucose 237 mg/dl (70-90) 179 mg/dl (70-90) 240 mg/dl (70-90) Anion Gap 9.0 mmol/L (3-11) Est Creatinine Clear Calc Drug Dose 12.1 ml/min Estimated GFR () 16.2 Estimated GFR (Non- 14.0 BUN/Creatinine Ratio 23.6 (10-20) Calcium Level 8.6 mg/dl (8.5-10.1) Test 04/10/17 07:35 Bedside Glucose 179 mg/dl (70-90) Allergies Coded Allergies: Carbamazepine (Verified Allergy, Intermediate, RASH, 04/04/17) Carvedilol (Verified Allergy, Intermediate, DIZZINESS, VISUAL DISTURBANCES , 04/04/17) Erythromycin (Verified Allergy, Intermediate, RASH, 04/04/17) Statins (Verified Adverse Reaction, Intermediate, MUSCLE ACHES, 04/04/17) Medications Current Inpatient Medications Medications (Trade) Dose Ordered Sig/Haja Route Start Time Stop Time Status Last Admin Dose Admin Acetaminophen (Tylenol Tab) 650 mg Q4H PRN PO 04/05/17 00:30 05/05/17 00:29 Alprazolam (Xanax Tab) 0.5 mg HS PO 04/05/17 21:00 05/05/17 20:59 04/09/17 22:18 0.5 MG Aspirin (Ecotrin Tab) 81 mg QAM PO 04/05/17 09:00 05/05/17 08:59 04/10/17 09:14 81 MG Diclofenac Sodium (Voltaren 1% Top Gel) 1 appln BID EXT 04/05/17 09:00 05/05/17 08:59 04/10/17 09:13 1 APPLN EZETIMIBE (Zetia Tab) 10 mg QAM PO 04/05/17 09:00 05/05/17 08:59 04/10/17 09:14 10 MG Miscellaneous Information (Order Awaiting Action) 1 ea QS N/A 04/05/17 08:00 05/05/17 07:59 Insulin Glargine (Lantus Solostar Pen) 62 units DAILY@2100 ID 04/06/17 21:00 05/06/17 20:59 04/09/17 21:25 62 UNITS Ondansetron HCl (Zofran Odt) 8 mg Q6H PRN PO 04/05/17 00:30 05/05/17 00:29 04/08/17 18:13 8 MG Insulin Aspart (novoLOG ASPART) SLIDING SCALE If C... ACHS SC 04/05/17 06:30 05/05/17 06:59 04/10/17 09:20 2 UNITS Glucose (Glucose 40% Gel) UD PRN PO 04/05/17 00:30 05/05/17 00:29 Glucose (Glucose Chew Tab) 1 tabs UD PRN PO 04/05/17 00:30 05/05/17 00:29 Dextrose (Dextrose 50% 50ML Syringe) 50 ml UD PRN IV 04/05/17 00:30 05/05/17 00:29 Glucagon (Glucagon Inj) 1 mg UD PRN SQ 04/05/17 00:30 05/05/17 00:29 Isosorbide Mononitrate (Imdur Ext Rel Tab) 60 mg BID PO 04/05/17 21:00 05/05/17 20:59 04/10/17 09:14 60 MG Hydralazine HCl (HydrALAZINE INJ) 10 mg Q4H PRN IV. 04/05/17 06:30 05/05/17 06:29 04/09/17 12:27 10 MG Heparin Sodium (Porcine) (Heparin Sq 5000 Unit/0.5ml) 5,000 unit Q8 SQ 04/05/17 22:00 05/05/17 21:59 04/10/17 05:55 5,000 UNIT Cyclosporine (Restasis) 1 drops BID OP 04/06/17 21:00 05/06/17 20:59 04/10/17 09:13 1 DROPS Labetalol HCl (Normodyne IV) 20 mg Q6H PRN IV 04/06/17 19:30 05/06/17 19:29 04/08/17 16:46 20 MG Senna/Docusate Sodium (Senokot S Tab) 1 tab QAM PO 04/08/17 09:00 05/08/17 08:59 04/10/17 09:13 1 TAB Hydralazine HCl (Apresoline Tab) 100 mg Q8 PO 04/08/17 14:00 05/05/17 13:59 04/10/17 05:59 100 MG Polyethylene (Miralax Powder Packet) 17 gm DAILY PO 04/08/17 17:30 05/07/17 09:44 04/09/17 07:55 17 GM Bisacodyl (Dulcolax Supp) 10 mg DAILY PRN DE 04/08/17 17:30 05/08/17 17:29 Spironolactone (Aldactone Tab) 25 mg QAM PO 04/09/17 09:00 05/09/17 08:59 04/10/17 09:14 25 MG Labetalol HCl (Normodyne Tab) 200 mg BID PO 04/09/17 21:00 05/09/17 20:59 04/09/17 21:11 200 MG Impression (1) Acute kidney failure (2) Chronic kidney disease (3) Proteinuria (4) HTN (hypertension) (5) Diabetes mellitus (6) Coronary artery disease (7) Atrial myxoma (8) Hyperlipidemia Ms. Dominguez has CKD w/ baseline creatinine 1.7 - 2.0 on the basis of microvascular disease. She was admitted for evaluation of progressive LE edema and hypertensive urgency. Renal US revealed 10.5 cm kidneys w/ cortical atrophy. Urinalysis was benign. Urine protein ~ 7g/d. SIEP/UIEP are pending. Kidney function has worsened in the setting of LISSETH inhibitor and loop diuretic therapy. Echocardiogram revealed LVEF 65 - 70% w/ mild MR, PASP 35 - 40 mm HG, RA 15 mm HG, dilated IVC and evidence of diastolic dysfunction. 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 Recommendations ACUTE KIDNEY INJURY: -- No signs of renal recovery, suggestive of ATN. Electrolyte balance is acceptable. Continue to monitor serial PRP -- Will consider pursuing AVF creation if patient has a sustained rise in serum creatinine to 3.0 or greater CHRONIC KIDNEY DISEASE: -- Baseline creatinine has been 1.7 - 2.0. Abdominal CT films reviewed. Patient has mild renal cortical atrophy. Urine microscopy revealed a bland sediment -- Renal US report 04/05: 10.5 cm kidneys w/ mild cortical atrophy -- Renal artery doppler was negative for large vessel JASMINE. High resistive indices suggest small vessel disease -- 24 hour urine protein 7.5g. Likely due to diabetic nephropathy and hypertension -- Awaiting serum free light chain assay and 24 hour urine immunoelectrophoresis results (pending 04/09/17 am) PROTEINURIA: -- Patient did not tolerate LISSETH inhibitor due to worsening kidney function. Will avoid LISSETH / ARB. HYPERTENSION: -- 03/25 Echocardiogram shows moderate to severe LVH c/w longstanding arterial HTN. LVEF 65 - 70% w/ mild MR, pulmonary HTN and elevated right sided pressures -- Felodipine stopped as this may have contributed to LE edema -- Metoprolol changed to Labetalol 200 mg po BID -- Continue Isosorbide 60 mg po BID -- Continue Hydralazine 100 mg po TID -- Started Spironolactone 50 mg po daily yesterday -- Will continue to monitor -- Allow some permissive hypertension during GUSTAVO EDEMA: -- Low sodium diet. Dietitian has provided education -- Patient is wearing knee high compression stockings whenever OOB -- Edema is likely reflective of diastolic dysfunction and elevated right sided heart pressure as noted on 03/25 echocardiogram OTHER: -- Recommend physical therapy for strengthening exercises
[2017-04-10] MEDS: LABETALOL HCL 200 MG TAB PO SCH ×2 (10:58→21:17)
[2017-04-10] MEDS: ALPRAZOLAM 0.5 MG TAB PO SCH (22:25)
[2017-04-10] MEDS: INSULIN GLARGINE SC SCH (22:28)
[2017-04-11] VITALS (7 sets, daily range): BP systolic 135–170; BP diastolic 54–64; PULSE 57–70; TEMP 36.5; O2SAT 94–96
[2017-04-11] MEDS: HEPARIN SOD 5000 UNIT/0.5 ML CARP SQ SCH ×3 (06:25→22:14)
[2017-04-11 06:53] LABS: CALCIUM 8.2 mg/dl (8.5-10.1); CREATININE 3.41 mg/dl (0.60-1.20); POTASSIUM 4.7 mmol/L (3.5-5.1)
[2017-04-11] MEDS: [UNRECOGNIZED DRUG - OTHER] SCH ×4 (08:00→23:58)
[2017-04-11] MEDS: DICLOFENAC SOD 1% GEL 100 GM TUBE EXT SCH ×2 (08:21→21:04)
[2017-04-11] MEDS: CycloSPORINE 0.05% 0.4 ML 30 UDV/BOX OP SCH ×2 (08:22→21:04)
[2017-04-11] MEDS: EZETIMIBE 10MG TAB PO SCH (08:29)
[2017-04-11] MEDS: DOCUSATE SODIUM/SENNA 50/8.6MG TAB PO SCH (08:29)
[2017-04-11] MEDS: POLYETHYLENE (MIRALAX) 17 GM PACK PO SCH (08:30)
[2017-04-11] MEDS: ISOSORBIDE MONONITRATE 60 MG TABCR PO SCH ×2 (08:31→21:05)
[2017-04-11] MEDS: LABETALOL HCL 200 MG TAB PO SCH ×2 (08:31→21:05)
[2017-04-11] MEDS: ASPIRIN 81 MG ECTAB PO SCH (08:31)
[2017-04-11] MEDS: SPIRONOLACTONE 25 MG TAB PO SCH (08:32)
[2017-04-11] MEDS: INSULIN ASPART 100 UNITS/ML 3 ML PEN SC SCH ×4 (08:38→20:56)
--- NOTE | 2017-04-11 10:50 | Progress Note ---
Subjective Date of Service: Apr 11, 2017. Subjective Pt evaluation today including: conversation w/ patient, physical exam Patient reports no complaints today. Patient feels fine today. Problem List Medical Problems: (1) Acute kidney failure Status: Acute (2) Dehydration Status: Acute (3) HTN (hypertension) Status: Acute (4) Influenza Status: Acute (5) Proteinuria Status: Acute Review of Systems Constitutional: + fever, No chills Respiratory: No sputum Cardiac: No chest pain, No orthopnea Neurologic: No memory loss, No paralysis Psychiatric: No depression symptoms, No anhedonism Heme: No abnormal bleeding/bruising Endo: No fatigue Skin: No rash, No itch All Other Systems: Reviewed and Negative Medications Current Inpatient Medications Medications (Trade) Dose Ordered Sig/Haja Route Start Time Stop Time Status Last Admin Dose Admin Acetaminophen (Tylenol Tab) 650 mg Q4H PRN PO 04/05/17 00:30 05/05/17 00:29 Alprazolam (Xanax Tab) 0.5 mg HS PO 04/05/17 21:00 05/05/17 20:59 04/10/17 22:25 0.5 MG Aspirin (Ecotrin Tab) 81 mg QAM PO 04/05/17 09:00 05/05/17 08:59 04/11/17 08:31 81 MG Diclofenac Sodium (Voltaren 1% Top Gel) 1 appln BID EXT 04/05/17 09:00 05/05/17 08:59 04/11/17 21:04 1 APPLN EZETIMIBE (Zetia Tab) 10 mg QAM PO 04/05/17 09:00 05/05/17 08:59 04/11/17 08:29 10 MG Miscellaneous Information (Order Awaiting Action) 1 ea QS N/A 04/05/17 08:00 05/05/17 07:59 Ondansetron HCl (Zofran Odt) 8 mg Q6H PRN PO 04/05/17 00:30 05/05/17 00:29 04/08/17 18:13 8 MG Insulin Aspart (novoLOG ASPART) SLIDING SCALE If C... ACHS SC 04/05/17 06:30 05/05/17 06:59 04/11/17 12:33 4 UNITS Glucose (Glucose 40% Gel) UD PRN PO 04/05/17 00:30 05/05/17 00:29 Glucose (Glucose Chew Tab) 1 tabs UD PRN PO 04/05/17 00:30 05/05/17 00:29 Dextrose (Dextrose 50% 50ML Syringe) 50 ml UD PRN IV 04/05/17 00:30 05/05/17 00:29 Glucagon (Glucagon Inj) 1 mg UD PRN SQ 04/05/17 00:30 05/05/17 00:29 Isosorbide Mononitrate (Imdur Ext Rel Tab) 60 mg BID PO 04/05/17 21:00 05/05/17 20:59 04/11/17 21:05 60 MG Hydralazine HCl (HydrALAZINE INJ) 10 mg Q4H PRN IV. 04/05/17 06:30 05/05/17 06:29 04/11/17 16:30 10 MG Heparin Sodium (Porcine) (Heparin Sq 5000 Unit/0.5ml) 5,000 unit Q8 SQ 04/05/17 22:00 05/05/17 21:59 04/11/17 14:14 5,000 UNIT Cyclosporine (Restasis) 1 drops BID OP 04/06/17 21:00 05/06/17 20:59 04/11/17 21:04 1 DROPS Labetalol HCl (Normodyne IV) 20 mg Q6H PRN IV 04/06/17 19:30 05/06/17 19:29 04/08/17 16:46 20 MG Senna/Docusate Sodium (Senokot S Tab) 1 tab QAM PO 04/08/17 09:00 05/08/17 08:59 04/11/17 08:29 1 TAB Hydralazine HCl (Apresoline Tab) 100 mg Q8 PO 04/08/17 14:00 05/05/17 13:59 04/11/17 14:11 100 MG Polyethylene (Miralax Powder Packet) 17 gm DAILY PO 04/08/17 17:30 05/07/17 09:44 04/09/17 07:55 17 GM Bisacodyl (Dulcolax Supp) 10 mg DAILY PRN [place] 04/08/17 17:30 05/08/17 17:29 Spironolactone (Aldactone Tab) 25 mg QAM PO 04/09/17 09:00 05/09/17 08:59 04/11/17 08:32 25 MG Labetalol HCl (Normodyne Tab) 200 mg BID PO 04/09/17 21:00 05/09/17 20:59 04/11/17 21:05 200 MG Insulin Glargine (Lantus Vial) 62 units DAILY@2100 SC 04/10/17 21:00 05/10/17 20:59 04/11/17 21:03 62 UNITS Objective Vital Signs Date Time Temp Pulse Resp B/P (MAP) Pulse Ox O2 Delivery O2 Flow Rate FiO2 04/11/17 08:21 36.5 57 16 135/54 (81) 94 Room Air 04/11/17 07:45 Room Air 04/11/17 06:26 60 138/60 (86) 04/11/17 00:00 96 Room Air 04/10/17 22:59 36.5 64 18 160/66 (97) 96 Room Air 04/10/17 16:30 Room Air 04/10/17 14:55 36.4 59 16 160/67 (98) 95 Room Air 04/10/17 12:07 63 96 Physical Exam Comments: General Appearance: WD/WN, no apparent distress (sitting in chair at bedside, NAD) Eyes: normal inspection, sclerae normal ENT: hearing grossly normal Neck: trachea midline Respiratory/Chest: no respiratory distress, no accessory muscle use, + crackles (at bases bilat, otherwise clear) Cardiovascular: regular rate, rhythm, no murmur, + pertinent finding (1+ pitting edema legs to knees bilat) Abdomen: normal bowel sounds, non tender, soft Extremities: non-tender, no calf tenderness Neurologic/Psychiatric: alert, normal mood/affect, oriented x 3 Skin: normal color, warm/dry, no rash Laboratory Results Last 24 Hours Test 04/10/17 11:13 04/10/17 16:11 04/10/17 20:07 04/11/17 05:51 Bedside Glucose 236 mg/dl 202 mg/dl 168 mg/dl Sodium Level 134 mmol/L Potassium Level 4.7 mmol/L Chloride Level 105 mmol/L Carbon Dioxide Level 21 mmol/L Anion Gap 8.0 mmol/L Blood Urea Nitrogen 69 mg/dl Creatinine 3.41 mg/dl Est Creatinine Clear Calc Drug Dose 10.6 ml/min Estimated GFR () 13.7 Estimated GFR (Non- 11.8 BUN/Creatinine Ratio 20.4 Random Glucose 125 mg/dl Calcium Level 8.2 mg/dl Test 04/11/17 07:18 Bedside Glucose 136 mg/dl Assessment and Plan This pt is a marilee 82 yo female with a h/o HTN, CAD, SSS now s/p pacer, chronic diastolic CHF, mild MR, 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 Creatinine continues to trend up today to above 3. Will continue to monitor patient. Will asses her urine tomorrow in AM Will check her urine sodium and ua to help assess if its pre renal or not. Continuing to hold her lasix and now permanently dcd ACEI. UA with 4+ protein, no blood. 24 hour urine protein with 7.5 grams, urine Free kappa and lambda light chains pending. Serum EBER pending. -continue to hold lasix, but Nephro starting aldactone today -Nephro decided to discontinue lisinopril due to increasing creatinine -Appreciate Nephro consult -avoid nephrotoxins, will renally dose all meds -follow PRP -Nephrology did discuss about vascular access for possible IHD. -- Renal US report 04/05: 10.5 cm kidneys w/ mild cortical atrophy -- Renal artery doppler was negative for large vessel JASMINE. High resistive indices suggest small vessel disease -- 24 hour urine protein 7.5g. Likely due to diabetic nephropathy and hypertension -- Awaiting serum free light chain assay and 24 hour urine immunoelectrophoresis results (pending 04/09/18 am) -Will follow-up urine free and lambda light chains as well as immunofixation study in urine and serum Accelerated HTN/HTN/Abnormal ECG- BP 235/85 at highest since admission, BP has improved somewhat since then but continues to remain significantly elevated. It does respond nicely to a dose of IV labetalol, but then had N/V after administration. Remains asymptomatic. Lasix discontinued for GUSTAVO on admission ECG with TWIs in lateral leads new from previous, RBBB. Troponin negative, no CP but had SOB on admission which has now resolved. ECHO with normal EF, mild MR, borderline Pulm HTN, stable mass/?myxoma, and grade 1 diastolic dysfunction with mod LVH -continue increased dose hydralazine to 100mg po tid -IV hydralazine prn, IV labetalol prn -switch metoprolol to Labetalol 200mg po bid today as she seems to respond better to this- discussed with nephrology -no further ACEI/ARB should be given -increased isosorbide to 60mg po bid on admission, consider increasing again if blood pressure not coming down -dcd felodipine by Dr. To as above for LE edema -May consider to restart lower dose tomorrow if BP remains elevated spironolactone added, now at 50mg. 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 Was intravascularly depleted upon admission. ECHO with normal EF, mild MR, borderline Pulm HTN, stable mass/?myxoma, and grade 1 diastolic dysfunction with mod LVH. Edema improved -Appreciate Nephrology and Cardiology consults -dcd felodipine in case of adverse side effect -avoid diuretics as she is intravascularly depleted and with GUSTAVO, elevated BUN, but starting aldactone today as above -Continue compression stockings -low sodium diet, daily weights, dietary consult -no surgery opted in the past for myxoma CAD, status post CABG in 1992, but no details available/Sick sinus syndrome, status post dual-chamber pacemaker implantation on 10/29/2008 followed by EP. -remains always paced on tele, review of outpt records shows pacer functioning well and 100% atrial paced in 12/[address] 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 HgbA1C here 7.1% -continue Lantus and SSI, accuchecks Hypertriglyceridemia-was > 1000 in the past. Recently switched from fenofibrate to fish oil due to renal failure -continue Zetia here -restart fish oil on discharge Left sided sciatica, lower back pain-ongoing for several months, with h/o falls -tylenol prn pain, voltaren gel ok as minimal systemic absorption -PT/OT consults Proph-YASMANY mancia,heparin SQ Dispo-transfer to medical, will need PT/OT consults due to recent falls, leg swelling and left sided sciatica, may need rehab/SNF DNR/DNI as discussed with pt with daughter who is HCPOA at the bedside. She has a living will that daughter has reviewed with her
--- NOTE | 2017-04-11 10:52 | Nephrology Progress Note ---
Nephrology Progress Note Date of Service Apr 11, 2017. Chief Complaint GUSTAVO, CKD, HTN Subjective No acute events overnight. No complaints this morning. Nava feels well. She denies shortness of breath. Edema is controlled. Appetite is fair. She has had some nausea in the evenings. She is voiding urine without difficulty. No fevers or chills. Review of Systems A complete review of systems was performed. Pertinent positives are noted above. All other systems are negative. Vital Signs Last 8 Hrs Date Time Temp Pulse Resp B/P (MAP) Pulse Ox O2 Delivery O2 Flow Rate FiO2 04/11/17 08:21 36.5 57 16 135/54 (81) 94 Room Air 04/11/17 07:45 Room Air 04/11/17 06:26 60 138/60 (86) Last Recorded Weight Weight (Kilograms): 73.000 Physical Exam General Appearance: WD/WN, no apparent distress Head: normocephalic, atraumatic Eyes: normal inspection, sclerae normal ENT: normal ENT inspection, pharynx normal Neck: supple, no JVD Respiratory/Chest: lungs clear, no respiratory distress, no accessory muscle use Cardiovascular: regular rate, rhythm, no gallop Abdomen/GI: non tender, soft Extremities/Musculoskelatal: normal inspection, + pedal edema, + pertinent finding (compression stockings) Neurologic/Psych: alert, normal mood/affect Family History Patient reports no known family medical history. Negative for CKD/ESRD Social History Smoking Status: Never smoker Smokeless Tobacco Use: No Alcohol Use: none Drug Use: none Marital Status: Housing Status: lives with family Occupation: retired . 2 sons, 1 daughter in good health. Retired from [employer]. Denies tobacco or alcohol use Laboratory Results Past 24 Hours 04/11/17 05:51 Test 04/10/17 11:13 04/10/17 16:11 04/10/17 20:07 04/11/17 05:51 Bedside Glucose 236 mg/dl (70-90) 202 mg/dl (70-90) 168 mg/dl (70-90) Anion Gap 8.0 mmol/L (3-11) Est Creatinine Clear Calc Drug Dose 10.6 ml/min Estimated GFR () 13.7 Estimated GFR (Non- 11.8 BUN/Creatinine Ratio 20.4 (10-20) Calcium Level 8.2 mg/dl (8.5-10.1) Test 04/11/17 07:18 Bedside Glucose 136 mg/dl (70-90) Allergies Coded Allergies: Carbamazepine (Verified Allergy, Intermediate, RASH, 04/04/17) Carvedilol (Verified Allergy, Intermediate, DIZZINESS, VISUAL DISTURBANCES , 04/04/17) Erythromycin (Verified Allergy, Intermediate, RASH, 04/04/17) Statins (Verified Adverse Reaction, Intermediate, MUSCLE ACHES, 04/04/17) Medications Current Inpatient Medications Medications (Trade) Dose Ordered Sig/Haja Route Start Time Stop Time Status Last Admin Dose Admin Acetaminophen (Tylenol Tab) 650 mg Q4H PRN PO 04/05/17 00:30 05/05/17 00:29 Alprazolam (Xanax Tab) 0.5 mg HS PO 04/05/17 21:00 05/05/17 20:59 04/10/17 22:25 0.5 MG Aspirin (Ecotrin Tab) 81 mg QAM PO 04/05/17 09:00 05/05/17 08:59 04/11/17 08:31 81 MG Diclofenac Sodium (Voltaren 1% Top Gel) 1 appln BID EXT 04/05/17 09:00 05/05/17 08:59 04/11/17 08:21 1 APPLN EZETIMIBE (Zetia Tab) 10 mg QAM PO 04/05/17 09:00 05/05/17 08:59 04/11/17 08:29 10 MG Miscellaneous Information (Order Awaiting Action) 1 ea QS N/A 04/05/17 08:00 05/05/17 07:59 Ondansetron HCl (Zofran Odt) 8 mg Q6H PRN PO 04/05/17 00:30 05/05/17 00:29 04/08/17 18:13 8 MG Insulin Aspart (novoLOG ASPART) SLIDING SCALE If C... ACHS SC 04/05/17 06:30 05/05/17 06:59 04/11/17 08:38 5 UNITS Glucose (Glucose 40% Gel) UD PRN PO 04/05/17 00:30 05/05/17 00:29 Glucose (Glucose Chew Tab) 1 tabs UD PRN PO 04/05/17 00:30 05/05/17 00:29 Dextrose (Dextrose 50% 50ML Syringe) 50 ml UD PRN IV 04/05/17 00:30 05/05/17 00:29 Glucagon (Glucagon Inj) 1 mg UD PRN SQ 04/05/17 00:30 05/05/17 00:29 Isosorbide Mononitrate (Imdur Ext Rel Tab) 60 mg BID PO 04/05/17 21:00 05/05/17 20:59 04/11/17 08:31 60 MG Hydralazine HCl (HydrALAZINE INJ) 10 mg Q4H PRN IV. 04/05/17 06:30 05/05/17 06:29 04/09/17 12:27 10 MG Heparin Sodium (Porcine) (Heparin Sq 5000 Unit/0.5ml) 5,000 unit Q8 SQ 04/05/17 22:00 05/05/17 21:59 04/11/17 06:25 5,000 UNIT Cyclosporine (Restasis) 1 drops BID OP 04/06/17 21:00 05/06/17 20:59 04/11/17 08:22 1 DROPS Labetalol HCl (Normodyne IV) 20 mg Q6H PRN IV 04/06/17 19:30 05/06/17 19:29 04/08/17 16:46 20 MG Senna/Docusate Sodium (Senokot S Tab) 1 tab QAM PO 04/08/17 09:00 05/08/17 08:59 04/11/17 08:29 1 TAB Hydralazine HCl (Apresoline Tab) 100 mg Q8 PO 04/08/17 14:00 05/05/17 13:59 04/11/17 06:25 100 MG Polyethylene (Miralax Powder Packet) 17 gm DAILY PO 04/08/17 17:30 05/07/17 09:44 04/09/17 07:55 17 GM Bisacodyl (Dulcolax Supp) 10 mg DAILY PRN [place] 04/08/17 17:30 05/08/17 17:29 Spironolactone (Aldactone Tab) 25 mg QAM PO 04/09/17 09:00 05/09/17 08:59 04/11/17 08:32 25 MG Labetalol HCl (Normodyne Tab) 200 mg BID PO 04/09/17 21:00 05/09/17 20:59 04/10/17 21:17 200 MG Insulin Glargine (Lantus Vial) 62 units DAILY@2100 SC 04/10/17 21:00 05/10/17 20:59 04/10/17 22:28 62 UNITS Impression (1) Acute kidney failure (2) Chronic kidney disease (3) Proteinuria (4) HTN (hypertension) (5) Diabetes mellitus (6) Coronary artery disease (7) Atrial myxoma (8) Hyperlipidemia Ms. Dominguez has CKD w/ baseline creatinine 1.7 - 2.0 on the basis of microvascular disease. She was admitted for evaluation of progressive LE edema and hypertensive urgency. Renal US revealed 10.5 cm kidneys w/ cortical atrophy. Urinalysis was benign. Urine protein ~ 7g/d. SIEP/UIEP are pending. Kidney function has worsened in the setting of LISSETH inhibitor and loop diuretic therapy. Echocardiogram revealed LVEF 65 - 70% w/ mild MR, PASP 35 - 40 mm HG, RA 15 mm HG, dilated IVC and evidence of diastolic dysfunction. 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 Recommendations ACUTE KIDNEY INJURY: -- No signs of renal recovery, suggestive of ATN. Electrolyte balance is acceptable. Continue to monitor serial PRP -- Repeat urine studies (random urine sodium and UA/micro tomorrow AM) -- Will consider pursuing AVF creation if patient has a sustained rise in serum creatinine -- Discussed indications for dialysis with patient this morning -- Plan of care was discussed with Dr. Woods CHRONIC KIDNEY DISEASE: -- Baseline creatinine has been 1.7 - 2.0. Abdominal CT films reviewed. Patient has mild renal cortical atrophy. Urine microscopy revealed a bland sediment -- Renal US report 04/05: 10.5 cm kidneys w/ mild cortical atrophy -- Renal artery doppler was negative for large vessel JASMINE. High resistive indices suggest small vessel disease -- 24 hour urine protein 7.5g. Likely due to diabetic nephropathy and hypertension -- Awaiting serum free light chain assay and 24 hour urine immunoelectrophoresis results (pending 04/09/17 am) PROTEINURIA: -- Patient did not tolerate LISSETH inhibitor due to worsening kidney function. Will avoid LISSETH / ARB. HYPERTENSION: -- 03/25 Echocardiogram shows moderate to severe LVH c/w longstanding arterial HTN. LVEF 65 - 70% w/ mild MR, pulmonary HTN and elevated right sided pressures -- Felodipine stopped as this may have contributed to LE edema -- Metoprolol changed to Labetalol 200 mg po BID -- Continue Isosorbide 60 mg po BID -- Continue Hydralazine 100 mg po TID -- Started Spironolactone 50 mg po daily yesterday -- Will continue to monitor -- Allow some permissive hypertension during GUSTAVO EDEMA: -- Low sodium diet. Dietitian has provided education -- Patient is wearing knee high compression stockings whenever OOB -- Edema is likely reflective of diastolic dysfunction and elevated right sided heart pressure as noted on 03/25 echocardiogram OTHER: -- Recommend physical therapy for strengthening exercises
[2017-04-11] MEDS: HydrALAZINE HCL 20 MG/ML VIAL IV. PRN (16:30)
[2017-04-11] MEDS: INSULIN GLARGINE SC SCH (21:03)
[2017-04-11] MEDS: ALPRAZOLAM 0.5 MG TAB PO SCH (22:15)
[2017-04-12] VITALS (9 sets, daily range): BP systolic 141–190; BP diastolic 53–73; PULSE 59–77; TEMP 36.5–36.9; O2SAT 94–97
[2017-04-12] MEDS: HEPARIN SOD 5000 UNIT/0.5 ML CARP SQ SCH ×3 (05:43→21:15)
[2017-04-12 06:53] LABS: HEMATOCRIT 25.4 % (37-47); HEMOGLOBIN 8.6 g/dL (12.0-16.0); MEAN CELL VOLUME 89.4 fL (80-100); MEAN CORPUSCULAR HEMOGLOBIN 30.3 pg (25-34); MEAN CORPUSCULAR HGB CONC 33.9 g/dl (32-36); MEAN PLATELET VOLUME 9.5 fL (7.4-10.4); PLATELET COUNT 201 K/uL (130-400); RED CELL DISTRIBUTION WIDTH CV 13.6 % (11.5-14.5); RED CELL DISTRIBUTION WIDTH SD 44.8 fL (36.4-46.3); WHITE BLOOD COUNT 7.14 K/uL (4.8-10.8)
[2017-04-12 07:25] LABS: CALCIUM 8.3 mg/dl (8.5-10.1); CREATININE 3.48 mg/dl (0.60-1.20); POTASSIUM 4.8 mmol/L (3.5-5.1)
[2017-04-12] MEDS: [UNRECOGNIZED DRUG - OTHER] SCH ×3 (08:00→22:56)
[2017-04-12] MEDS: DOCUSATE SODIUM/SENNA 50/8.6MG TAB PO SCH (08:32)
[2017-04-12] MEDS: LABETALOL HCL 200 MG TAB PO SCH ×2 (08:32→20:59)
[2017-04-12] MEDS: DICLOFENAC SOD 1% GEL 100 GM TUBE EXT SCH ×2 (08:32→20:58)
[2017-04-12] MEDS: SPIRONOLACTONE 25 MG TAB PO SCH (08:32)
[2017-04-12] MEDS: POLYETHYLENE (MIRALAX) 17 GM PACK PO SCH (08:32)
[2017-04-12] MEDS: ASPIRIN 81 MG ECTAB PO SCH (08:32)
[2017-04-12] MEDS: EZETIMIBE 10MG TAB PO SCH (08:32)
[2017-04-12] MEDS: ISOSORBIDE MONONITRATE 60 MG TABCR PO SCH ×2 (08:32→20:59)
[2017-04-12] MEDS: CycloSPORINE 0.05% 0.4 ML 30 UDV/BOX OP SCH ×2 (08:33→20:58)
[2017-04-12] MEDS: INSULIN ASPART 100 UNITS/ML 3 ML PEN SC SCH ×4 (08:35→21:14)
--- NOTE | 2017-04-12 10:59 | Nephrology Progress Note ---
Nephrology Progress Note Date of Service Apr 12, 2017. Chief Complaint GUSTAVO, CKD, HTN Subjective No acute events overnight. No complaints this morning. Nava feels well. Appetite appropriate. She denies shortness of breath. Edema is stable. She has no urinary complaints. She denies fevers or chills. Review of Systems A complete review of systems was performed. Pertinent positives are noted above. All other systems are negative. Vital Signs Last 8 Hrs Date Time Temp Pulse Resp B/P (MAP) Pulse Ox O2 Delivery O2 Flow Rate FiO2 04/12/17 07:46 36.7 62 16 148/56 (86) 95 Room Air 04/12/17 05:38 69 175/66 (102) Last Recorded Weight Weight (Kilograms): 72.400 Physical Exam General Appearance: WD/WN, no apparent distress Head: normocephalic, atraumatic Eyes: normal inspection, sclerae normal ENT: normal ENT inspection, pharynx normal Neck: supple, no JVD Respiratory/Chest: lungs clear, no respiratory distress, no accessory muscle use Cardiovascular: regular rate, rhythm, no gallop Abdomen/GI: non tender, soft Extremities/Musculoskelatal: normal inspection, + pedal edema Neurologic/Psych: alert, normal mood/affect Family History Patient reports no known family medical history. Negative for CKD/ESRD Social History Smoking Status: Never smoker Smokeless Tobacco Use: No Alcohol Use: none Drug Use: none Marital Status: Housing Status: lives with family Occupation: retired . 2 sons, 1 daughter in good health. Retired from [employer]. Denies tobacco or alcohol use Laboratory Results Past 24 Hours 04/12/17 06:16 04/12/17 06:16 Test 04/11/17 11:12 04/11/17 11:45 04/11/17 16:41 04/11/17 20:20 Bedside Glucose 196 mg/dl (70-90) 104 mg/dl (70-90) 146 mg/dl (70-90) Urine Color YELLOW Urine Appearance TURBID (CLEAR) Urine pH 5.0 (4.5-7.5) Urine Specific [place] 1.017 (1.000-1.030) Urine Protein 3+ (NEG) Urine Glucose (UA) NEG (NEG) Urine Ketones NEG (NEG) Urine Occult Blood TRACE (NEG) Urine Nitrite NEG (NEG) Urine Bilirubin NEG (NEG) Urine Urobilinogen NEG (NEG) Urine Leukocyte Esterase LARGE (NEG) Urine WBC (Auto) >30 /hpf (0-5) Urine RBC (Auto) 0-4 /hpf (0-4) Urine Hyaline Casts (Auto) 5-10 /lpf (0-5) Urine Epithelial Cells (Auto) >30 /lpf (0-5) Urine Bacteria (Auto) 4+ (NEG) Urine Pathogenic Casts 5-10 GRANULAR CASTS /lpf (0) Urine Random Sodium 37 mEq/L Test 04/12/17 06:16 04/12/17 07:38 Red Blood Count 2.84 M/uL (4.2-5.4) Mean Corpuscular Volume 89.4 fL (80-100) Mean Corpuscular Hemoglobin 30.3 pg (25-34) Mean Corpuscular Hemoglobin Concent 33.9 g/dl (32-36) RDW Standard Deviation 44.8 fL (36.4-46.3) RDW Coefficient of Variation 13.6 % (11.5-14.5) Mean Platelet Volume 9.5 fL (7.4-10.4) Anion Gap 7.0 mmol/L (3-11) Est Creatinine Clear Calc Drug Dose 10.3 ml/min Estimated GFR () 13.4 Estimated GFR (Non- 11.5 BUN/Creatinine Ratio 20.8 (10-20) Calcium Level 8.3 mg/dl (8.5-10.1) Bedside Glucose 73 mg/dl (70-90) Allergies Coded Allergies: Carbamazepine (Verified Allergy, Intermediate, RASH, 04/04/17) Carvedilol (Verified Allergy, Intermediate, DIZZINESS, VISUAL DISTURBANCES , 04/04/17) Erythromycin (Verified Allergy, Intermediate, RASH, 04/04/17) Statins (Verified Adverse Reaction, Intermediate, MUSCLE ACHES, 04/04/17) Medications Current Inpatient Medications Medications (Trade) Dose Ordered Sig/Haja Route Start Time Stop Time Status Last Admin Dose Admin Acetaminophen (Tylenol Tab) 650 mg Q4H PRN PO 04/05/17 00:30 05/05/17 00:29 Alprazolam (Xanax Tab) 0.5 mg HS PO 04/05/17 21:00 05/05/17 20:59 04/11/17 22:15 0.5 MG Aspirin (Ecotrin Tab) 81 mg QAM PO 04/05/17 09:00 05/05/17 08:59 04/12/17 08:32 81 MG Diclofenac Sodium (Voltaren 1% Top Gel) 1 appln BID EXT 04/05/17 09:00 05/05/17 08:59 04/12/17 08:32 1 APPLN EZETIMIBE (Zetia Tab) 10 mg QAM PO 04/05/17 09:00 05/05/17 08:59 04/12/17 08:32 10 MG Miscellaneous Information (Order Awaiting Action) 1 ea QS N/A 04/05/17 08:00 05/05/17 07:59 Ondansetron HCl (Zofran Odt) 8 mg Q6H PRN PO 04/05/17 00:30 05/05/17 00:29 04/08/17 18:13 8 MG Insulin Aspart (novoLOG ASPART) SLIDING SCALE If C... ACHS SC 04/05/17 06:30 05/05/17 06:59 04/12/17 08:35 3 UNITS Glucose (Glucose 40% Gel) UD PRN PO 04/05/17 00:30 05/05/17 00:29 Glucose (Glucose Chew Tab) 1 tabs UD PRN PO 04/05/17 00:30 05/05/17 00:29 Dextrose (Dextrose 50% 50ML Syringe) 50 ml UD PRN IV 04/05/17 00:30 05/05/17 00:29 Glucagon (Glucagon Inj) 1 mg UD PRN SQ 04/05/17 00:30 05/05/17 00:29 Isosorbide Mononitrate (Imdur Ext Rel Tab) 60 mg BID PO 04/05/17 21:00 05/05/17 20:59 04/12/17 08:32 60 MG Hydralazine HCl (HydrALAZINE INJ) 10 mg Q4H PRN IV. 04/05/17 06:30 05/05/17 06:29 04/11/17 16:30 10 MG Heparin Sodium (Porcine) (Heparin Sq 5000 Unit/0.5ml) 5,000 unit Q8 SQ 04/05/17 22:00 05/05/17 21:59 04/12/17 05:43 5,000 UNIT Cyclosporine (Restasis) 1 drops BID OP 04/06/17 21:00 05/06/17 20:59 04/12/17 08:33 1 DROPS Labetalol HCl (Normodyne IV) 20 mg Q6H PRN IV 04/06/17 19:30 05/06/17 19:29 04/08/17 16:46 20 MG Senna/Docusate Sodium (Senokot S Tab) 1 tab QAM PO 04/08/17 09:00 05/08/17 08:59 04/12/17 08:32 1 TAB Hydralazine HCl (Apresoline Tab) 100 mg Q8 PO 04/08/17 14:00 05/05/17 13:59 04/12/17 05:39 100 MG Polyethylene (Miralax Powder Packet) 17 gm DAILY PO 04/08/17 17:30 05/07/17 09:44 04/12/17 08:32 17 GM Bisacodyl (Dulcolax Supp) 10 mg DAILY PRN SD 04/08/17 17:30 05/08/17 17:29 Spironolactone (Aldactone Tab) 25 mg QAM PO 04/09/17 09:00 05/09/17 08:59 04/12/17 08:32 25 MG Labetalol HCl (Normodyne Tab) 200 mg BID PO 04/09/17 21:00 05/09/17 20:59 04/12/17 08:32 200 MG Insulin Glargine (Lantus Vial) 62 units DAILY@2100 SC 04/10/17 21:00 05/10/17 20:59 04/11/17 21:03 62 UNITS Impression (1) Acute kidney failure (2) Chronic kidney disease (3) Proteinuria (4) HTN (hypertension) (5) Diabetes mellitus (6) Coronary artery disease (7) Atrial myxoma (8) Hyperlipidemia Ms. Dominguez has CKD w/ baseline creatinine 1.7 - 2.0 on the basis of microvascular disease. She was admitted for evaluation of progressive LE edema and hypertensive urgency. Renal US revealed 10.5 cm kidneys w/ cortical atrophy. Urinalysis was benign. Urine protein ~ 7g/d. 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 UPEP pending. Kidney function has worsened in the setting of LISSETH inhibitor and loop diuretic therapy. Echocardiogram revealed LVEF 65 - 70% w/ mild MR, PASP 35 - 40 mm HG, RA 15 mm HG, dilated IVC and evidence of diastolic dysfunction. 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 Recommendations ACUTE KIDNEY INJURY: -- Creatinine plateaued suggestive of early signs of recovery -- Metabolic profile otherwise acceptable -- Continue to monitor metabolic profile daily -- Maintain even fluid balance -- Repeat urine studies consistent with ATN CHRONIC KIDNEY DISEASE: -- Baseline creatinine has been 1.7 - 2.0. Abdominal CT films reviewed. Patient has mild renal cortical atrophy. Urine microscopy revealed a bland sediment -- Renal US report 04/05: 10.5 cm kidneys w/ mild cortical atrophy -- Renal artery doppler was negative for large vessel JASMINE. High resistive indices suggest small vessel disease -- 24 hour urine protein 7.5g. Likely due to diabetic nephropathy and hypertension PROTEINURIA: -- Patient did not tolerate LISSETH inhibitor due to worsening kidney function. Will avoid LISSETH / ARB. HYPERTENSION: -- 03/25 Echocardiogram shows moderate to severe LVH c/w longstanding arterial HTN. LVEF 65 - 70% w/ mild MR, pulmonary HTN and elevated right sided pressures -- Felodipine stopped as this may have contributed to LE edema -- Metoprolol changed to Labetalol 200 mg po BID -- Continue Isosorbide 60 mg po BID -- Continue Hydralazine 100 mg po TID -- Started Spironolactone 50 mg po daily yesterday -- Will continue to monitor -- Allow some permissive hypertension during GUSTAVO EDEMA: -- Low sodium diet. Dietitian has provided education -- Patient is wearing knee high compression stockings whenever OOB -- Edema is likely reflective of diastolic dysfunction and elevated right sided heart pressure as noted on 03/25 echocardiogram OTHER: -- Recommend physical therapy for strengthening exercises
[2017-04-12] MEDS: INSULIN GLARGINE SC SCH (21:15)
[2017-04-12] MEDS ORDERED: FELODIPINE 5 MG TABCR PO ONE (22:18)
--- NOTE | 2017-04-12 22:21 | Progress Note ---
Subjective Date of Service: Apr 12, 2017. Subjective Pt evaluation today including: conversation w/ patient, conversation w/ family , physical exam 82 yo female denies any complaints today. Problem List Medical Problems: (1) Acute kidney failure Status: Acute (2) Dehydration Status: Acute (3) HTN (hypertension) Status: Acute (4) Influenza Status: Acute (5) Proteinuria Status: Acute Review of Systems All Other Systems: Reviewed and Negative Medications Current Inpatient Medications Medications (Trade) Dose Ordered Sig/Haja Route Start Time Stop Time Status Last Admin Dose Admin Acetaminophen (Tylenol Tab) 650 mg Q4H PRN PO 04/05/17 00:30 05/05/17 00:29 Alprazolam (Xanax Tab) 0.5 mg HS PO 04/05/17 21:00 05/05/17 20:59 04/11/17 22:15 0.5 MG Aspirin (Ecotrin Tab) 81 mg QAM PO 04/05/17 09:00 05/05/17 08:59 04/12/17 08:32 81 MG Diclofenac Sodium (Voltaren 1% Top Gel) 1 appln BID EXT 04/05/17 09:00 05/05/17 08:59 04/12/17 20:58 1 APPLN EZETIMIBE (Zetia Tab) 10 mg QAM PO 04/05/17 09:00 05/05/17 08:59 04/12/17 08:32 10 MG Miscellaneous Information (Order Awaiting Action) 1 ea QS N/A 04/05/17 08:00 05/05/17 07:59 Ondansetron HCl (Zofran Odt) 8 mg Q6H PRN PO 04/05/17 00:30 05/05/17 00:29 04/08/17 18:13 8 MG Insulin Aspart (novoLOG ASPART) SLIDING SCALE If C... ACHS SC 04/05/17 06:30 05/05/17 06:59 04/12/17 21:14 4 UNITS Glucose (Glucose 40% Gel) UD PRN PO 04/05/17 00:30 05/05/17 00:29 Glucose (Glucose Chew Tab) 1 tabs UD PRN PO 04/05/17 00:30 05/05/17 00:29 Dextrose (Dextrose 50% 50ML Syringe) 50 ml UD PRN IV 04/05/17 00:30 05/05/17 00:29 Glucagon (Glucagon Inj) 1 mg UD PRN SQ 04/05/17 00:30 05/05/17 00:29 Isosorbide Mononitrate (Imdur Ext Rel Tab) 60 mg BID PO 04/05/17 21:00 05/05/17 20:59 04/12/17 20:59 60 MG Hydralazine HCl (HydrALAZINE INJ) 10 mg Q4H PRN IV. 04/05/17 06:30 05/05/17 06:29 04/11/17 16:30 10 MG Heparin Sodium (Porcine) (Heparin Sq 5000 Unit/0.5ml) 5,000 unit Q8 SQ 04/05/17 22:00 05/05/17 21:59 04/12/17 21:15 5,000 UNIT Cyclosporine (Restasis) 1 drops BID OP 04/06/17 21:00 05/06/17 20:59 04/12/17 20:58 1 DROPS Labetalol HCl (Normodyne IV) 20 mg Q6H PRN IV 04/06/17 19:30 05/06/17 19:29 04/08/17 16:46 20 MG Senna/Docusate Sodium (Senokot S Tab) 1 tab QAM PO 04/08/17 09:00 05/08/17 08:59 04/12/17 08:32 1 TAB Hydralazine HCl (Apresoline Tab) 100 mg Q8 PO 04/08/17 14:00 05/05/17 13:59 04/12/17 21:17 100 MG Polyethylene (Miralax Powder Packet) 17 gm DAILY PO 04/08/17 17:30 05/07/17 09:44 04/12/17 08:32 17 GM Bisacodyl (Dulcolax Supp) 10 mg DAILY PRN CA 04/08/17 17:30 05/08/17 17:29 Spironolactone (Aldactone Tab) 25 mg QAM PO 04/09/17 09:00 05/09/17 08:59 04/12/17 08:32 25 MG Labetalol HCl (Normodyne Tab) 200 mg BID PO 04/09/17 21:00 05/09/17 20:59 04/12/17 20:59 200 MG Insulin Glargine (Lantus Vial) 62 units DAILY@2100 SC 04/10/17 21:00 05/10/17 20:59 04/12/17 21:15 62 UNITS Objective Vital Signs Date Time Temp Pulse Resp B/P (MAP) Pulse Ox O2 Delivery O2 Flow Rate FiO2 04/12/17 21:20 65 190/64 (106) 04/12/17 15:41 36.5 60 20 161/57 (91) 95 Room Air 04/12/17 15:39 36.9 77 18 150/73 (98) 97 Room Air 04/12/17 14:21 61 152/61 (91) 04/12/17 08:00 Room Air 04/12/17 07:46 36.7 62 16 148/56 (86) 95 Room Air 04/12/17 05:38 69 175/66 (102) 04/12/17 00:00 96 Room Air 04/11/17 22:39 36.5 70 18 163/64 (97) 95 Room Air Physical Exam Comments: General Appearance: WD/WN, no apparent distress (sitting in chair at bedside, NAD) Eyes: normal inspection, sclerae normal ENT: hearing grossly normal Neck: trachea midline Respiratory/Chest: no respiratory distress, no accessory muscle use, + crackles (at bases bilat, otherwise clear) Cardiovascular: regular rate, rhythm, no murmur, + pertinent finding (1+ pitting edema legs to knees bilat) Abdomen: normal bowel sounds, non tender, soft Extremities: non-tender, no calf tenderness Neurologic/Psychiatric: alert, normal mood/affect, oriented x 3 Skin: normal color, warm/dry, no rash Laboratory Results Last 24 Hours Test 04/12/17 06:16 04/12/17 07:38 04/12/17 11:07 04/12/17 16:27 White Blood Count 7.14 K/uL Red Blood Count 2.84 M/uL Hemoglobin 8.6 g/dL Hematocrit 25.4 % Mean Corpuscular Volume 89.4 fL Mean Corpuscular Hemoglobin 30.3 pg Mean Corpuscular Hemoglobin Concent 33.9 g/dl RDW Standard Deviation 44.8 fL RDW Coefficient of Variation 13.6 % Platelet Count 201 K/uL Mean Platelet Volume 9.5 fL Sodium Level 135 mmol/L Potassium Level 4.8 mmol/L Chloride Level 107 mmol/L Carbon Dioxide Level 21 mmol/L Anion Gap 7.0 mmol/L Blood Urea Nitrogen 73 mg/dl Creatinine 3.48 mg/dl Est Creatinine Clear Calc Drug Dose 10.3 ml/min Estimated GFR () 13.4 Estimated GFR (Non- 11.5 BUN/Creatinine Ratio 20.8 Random Glucose 71 mg/dl Calcium Level 8.3 mg/dl Bedside Glucose 73 mg/dl 107 mg/dl 105 mg/dl Test 04/12/17 20:28 Bedside Glucose 113 mg/dl Assessment and Plan This pt is a marilee 82 yo female with a h/o HTN, CAD, SSS now s/p pacer, chronic diastolic CHF, mild MR, 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 GUSTAVO on CKD stage III/Proteinuria-baseline inside polisher 1.7-2.0, now 2.6 on admission, decreased to 2.28 and then trended back upward after starting lisinopril for significant proteinuria. Creatinine appears to have peaked at 3. Will continue to monitor patient. Urine sodium points toward atn.. Continuing to hold her lasix and now permanently dcd ACEI. UA with 4+ protein, no blood. 24 hour urine protein with 7.5 grams, urine Free kappa and lambda light chains pending. Serum EBER pending. -Nephro decided to discontinue lisinopril due to increasing creatinine -Appreciate Nephro consult Mainttain even fluid balance -avoid nephrotoxins, will renally dose all meds -follow PRP -Nephrology did discuss about vascular access for possible IHD. -- Renal US report 04/05: 10.5 cm kidneys w/ mild cortical atrophy -- Renal artery doppler was negative for large vessel JASMINE. High resistive indices suggest small vessel disease -- 24 hour urine protein 7.5g. Likely due to diabetic nephropathy and hypertension -Will follow-up urine free and lambda light chains as well as immunofixation study in urine and serum Accelerated HTN/HTN/Abnormal ECG- BP 235/85 at highest since admission, BP has improved somewhat since then but continues to remain significantly elevated. It does respond nicely to a dose of IV labetalol, but then had N/V after administration. Remains asymptomatic. Added felodipine ECG with TWIs in lateral leads new from previous, RBBB. Troponin negative, no CP but had SOB on admission which has now resolved. ECHO with normal EF, mild MR, borderline Pulm HTN, stable mass/?myxoma, and grade 1 diastolic dysfunction with mod LVH -continue increased dose hydralazine to 100mg po tid -IV hydralazine prn, IV labetalol prn -switch metoprolol to Labetalol 200mg po bid today as she seems to respond better to this- discussed with nephrology -no further ACEI/ARB should be given -increased isosorbide to 60mg po bid on admission, consider increasing again if blood pressure not coming down spironolactone added, now at 50mg. 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 Was intravascularly depleted upon admission. ECHO with normal EF, mild MR, borderline Pulm HTN, stable mass/?myxoma, and grade 1 diastolic dysfunction with mod LVH. Edema improved -Appreciate Nephrology and Cardiology consults -dcd felodipine in case of adverse side effect -avoid diuretics as she is intravascularly depleted and with GUSTAVO, elevated BUN, but starting aldactone today as above -Continue compression stockings -low sodium diet, daily weights, dietary consult -no surgery opted in the past for myxoma CAD, status post CABG in 1992, but no details available/Sick sinus syndrome, status post dual-chamber pacemaker implantation on 10/29/2008 followed by EP. -remains always paced on tele, review of outpt records shows pacer functioning well and 100% atrial paced in 12/[address] Farrell--> ok to transfer to medical today -continue Zetia, is intolerant to statins -continue ASA -f/u Cardiology as outpt DMII-controlled, on salvage determiner insulin. HgbA1C here 7.1% -continue Lantus and SSI, accuchecks Hypertriglyceridemia-was > 1000 in the past. Recently switched from fenofibrate to fish oil due to renal failure -continue Zetia here -restart fish oil on discharge Left sided sciatica, lower back pain-ongoing for several months, with h/o falls -tylenol prn pain, voltaren gel ok as minimal systemic absorption -PT/OT consults Proph-YASMANY hose,heparin SQ Dispo-transfer to medical, will need PT/OT consults due to recent falls, leg swelling and left sided sciatica, may need rehab/SNF DNR/DNI as discussed with pt with daughter who is HCPOA at the bedside. She has a living will that daughter has reviewed with her
[2017-04-12] MEDS: ALPRAZOLAM 0.5 MG TAB PO SCH (22:34)
[2017-04-13 00:30] VITALS: O2SAT 95
[2017-04-13 05:47] VITALS: BP 135/58; PULSE 60; TEMP 36.9; O2SAT 94
[2017-04-13] MEDS: HEPARIN SOD 5000 UNIT/0.5 ML CARP SQ SCH ×2 (05:53→14:10)
[2017-04-13 06:10] LABS: HEMATOCRIT 23.8 % (37-47); HEMOGLOBIN 8.3 g/dL (12.0-16.0); MEAN CELL VOLUME 89.1 fL (80-100); MEAN CORPUSCULAR HEMOGLOBIN 31.1 pg (25-34); MEAN CORPUSCULAR HGB CONC 34.9 g/dl (32-36); MEAN PLATELET VOLUME 9.3 fL (7.4-10.4); PLATELET COUNT 202 K/uL (130-400); RED CELL DISTRIBUTION WIDTH CV 13.8 % (11.5-14.5); RED CELL DISTRIBUTION WIDTH SD 44.9 fL (36.4-46.3); WHITE BLOOD COUNT 7.79 K/uL (4.8-10.8)
[2017-04-13 06:49] LABS: CALCIUM 8.4 mg/dl (8.5-10.1); CREATININE 3.47 mg/dl (0.60-1.20); POTASSIUM 4.8 mmol/L (3.5-5.1)
--- NOTE | 2017-04-13 06:54 | DIAGNOSTIC IMAGING REPORT ---
VENOUS DOPPLER LWR EXT BILA CLINICAL HISTORY: 82 years-old Female presenting with pain. TECHNIQUE: Real-time grayscale and color and spectral Doppler ultrasound imaging of the veins of the bilateral lower extremities was performed. Compression and augmentation were also utilized. COMPARISON: None. FINDINGS: Right: Common femoral vein: Patent. Greater saphenous vein: Patent. Deep femoral vein: Patent. Femoral vein: Patent. Popliteal vein: Patent. Calf veins: Limited visualization secondary to subcutaneous edema. Left: Common femoral vein: Patent. Greater saphenous vein: Patent. Deep femoral vein: Patent. Femoral vein: Patent. Popliteal vein: Patent. Calf veins: Limited visualization secondary to subcutaneous edema. Other: Bilateral popliteal cysts noted. IMPRESSION: No evidence of deep venous thrombosis. Subcutaneous edema. Electronically signed by: Abram Cifuentes M.D. 04/13/2017 6:52 AM Dictated Date/Time: 04/13/2017 6:51 AM
[2017-04-13] MEDS: [UNRECOGNIZED DRUG - OTHER] SCH (07:35)
[2017-04-13] MEDS: EZETIMIBE 10MG TAB PO SCH (08:22)
[2017-04-13] MEDS: POLYETHYLENE (MIRALAX) 17 GM PACK PO SCH (08:22)
[2017-04-13] MEDS: DOCUSATE SODIUM/SENNA 50/8.6MG TAB PO SCH (08:22)
[2017-04-13] MEDS: LABETALOL HCL 200 MG TAB PO SCH (08:22)
[2017-04-13] MEDS: ISOSORBIDE MONONITRATE 60 MG TABCR PO SCH (08:22)
[2017-04-13] MEDS: ASPIRIN 81 MG ECTAB PO SCH (08:22)
[2017-04-13] MEDS: DICLOFENAC SOD 1% GEL 100 GM TUBE EXT SCH (08:23)
[2017-04-13] MEDS: SPIRONOLACTONE 25 MG TAB PO SCH (08:23)
[2017-04-13] MEDS: CycloSPORINE 0.05% 0.4 ML 30 UDV/BOX OP SCH (08:23)
[2017-04-13] MEDS: INSULIN ASPART 100 UNITS/ML 3 ML PEN SC SCH ×2 (08:35→12:14)
--- NOTE | 2017-04-13 10:38 | Nephrology Progress Note ---
Nephrology Progress Note Date of Service Apr 13, 2017. Chief Complaint GUSTAVO, CKD, HTN Subjective No acute events overnight. No complaints this morning. Nava feels well. She denies dyspnea. Appetite is good. She has no urinary complaints. No fevers or chills. No lightheadedness or dizziness. Review of Systems A complete review of systems was performed. Pertinent positives are noted above. All other systems are negative. Vital Signs Last 8 Hrs Date Time Temp Pulse Resp B/P (MAP) Pulse Ox O2 Delivery O2 Flow Rate FiO2 04/13/17 08:00 Room Air 04/13/17 05:47 36.9 60 20 135/58 (83) 94 Room Air Last Recorded Weight Weight (Kilograms): 72.600 Physical Exam General Appearance: WD/WN, no apparent distress Head: normocephalic, atraumatic Eyes: normal inspection, sclerae normal ENT: normal ENT inspection, pharynx normal Neck: supple, no JVD Respiratory/Chest: lungs clear, no respiratory distress, no accessory muscle use Cardiovascular: regular rate, rhythm, no gallop Back: no CVA tenderness Abdomen/GI: non tender, soft Extremities/Musculoskelatal: normal inspection, no pedal edema Neurologic/Psych: alert, normal mood/affect Family History Patient reports no known family medical history. Negative for CKD/ESRD Social History Smoking Status: Never smoker Smokeless Tobacco Use: No Alcohol Use: none Drug Use: none Marital Status: Housing Status: lives with family Occupation: retired . 2 sons, 1 daughter in good health. Retired from [employer]. Denies tobacco or alcohol use Laboratory Results Past 24 Hours 04/13/17 05:41 04/13/17 05:41 Test 04/12/17 11:07 04/12/17 16:27 04/12/17 20:28 04/13/17 05:41 Bedside Glucose 107 mg/dl (70-90) 105 mg/dl (70-90) 113 mg/dl (70-90) Red Blood Count 2.67 M/uL (4.2-5.4) Mean Corpuscular Volume 89.1 fL (80-100) Mean Corpuscular Hemoglobin 31.1 pg (25-34) Mean Corpuscular Hemoglobin Concent 34.9 g/dl (32-36) RDW Standard Deviation 44.9 fL (36.4-46.3) RDW Coefficient of Variation 13.8 % (11.5-14.5) Mean Platelet Volume 9.3 fL (7.4-10.4) Anion Gap 6.0 mmol/L (3-11) Est Creatinine Clear Calc Drug Dose 10.4 ml/min Estimated GFR () 13.4 Estimated GFR (Non- 11.6 BUN/Creatinine Ratio 22.1 (10-20) Calcium Level 8.4 mg/dl (8.5-10.1) Test 04/13/17 06:16 04/13/17 06:34 04/13/17 07:37 Bedside Glucose 58 mg/dl (70-90) 80 mg/dl (70-90) 76 mg/dl (70-90) Allergies Coded Allergies: Carbamazepine (Verified Allergy, Intermediate, RASH, 04/04/17) Carvedilol (Verified Allergy, Intermediate, DIZZINESS, VISUAL DISTURBANCES , 04/04/17) Erythromycin (Verified Allergy, Intermediate, RASH, 04/04/17) Statins (Verified Adverse Reaction, Intermediate, MUSCLE ACHES, 04/04/17) Medications Current Inpatient Medications Medications (Trade) Dose Ordered Sig/Haja Route Start Time Stop Time Status Last Admin Dose Admin Acetaminophen (Tylenol Tab) 650 mg Q4H PRN PO 04/05/17 00:30 05/05/17 00:29 04/13/17 03:01 650 MG Alprazolam (Xanax Tab) 0.5 mg HS PO 04/05/17 21:00 05/05/17 20:59 04/12/17 22:34 0.5 MG Aspirin (Ecotrin Tab) 81 mg QAM PO 04/05/17 09:00 05/05/17 08:59 04/13/17 08:22 81 MG Diclofenac Sodium (Voltaren 1% Top Gel) 1 appln BID EXT 04/05/17 09:00 05/05/17 08:59 04/13/17 08:23 1 APPLN EZETIMIBE (Zetia Tab) 10 mg QAM PO 04/05/17 09:00 05/05/17 08:59 04/13/17 08:22 10 MG Miscellaneous Information (Order Awaiting Action) 1 ea QS N/A 04/05/17 08:00 05/05/17 07:59 Ondansetron HCl (Zofran Odt) 8 mg Q6H PRN PO 04/05/17 00:30 05/05/17 00:29 04/08/17 18:13 8 MG Insulin Aspart (novoLOG ASPART) SLIDING SCALE If C... ACHS SC 04/05/17 06:30 05/05/17 06:59 04/13/17 08:35 2 UNITS Glucose (Glucose 40% Gel) UD PRN PO 04/05/17 00:30 05/05/17 00:29 Glucose (Glucose Chew Tab) 1 tabs UD PRN PO 04/05/17 00:30 05/05/17 00:29 Dextrose (Dextrose 50% 50ML Syringe) 50 ml UD PRN IV 04/05/17 00:30 05/05/17 00:29 Glucagon (Glucagon Inj) 1 mg UD PRN SQ 04/05/17 00:30 05/05/17 00:29 Isosorbide Mononitrate (Imdur Ext Rel Tab) 60 mg BID PO 04/05/17 21:00 05/05/17 20:59 04/13/17 08:22 60 MG Hydralazine HCl (HydrALAZINE INJ) 10 mg Q4H PRN IV. 04/05/17 06:30 05/05/17 06:29 04/11/17 16:30 10 MG Heparin Sodium (Porcine) (Heparin Sq 5000 Unit/0.5ml) 5,000 unit Q8 SQ 04/05/17 22:00 05/05/17 21:59 04/13/17 05:53 5,000 UNIT Cyclosporine (Restasis) 1 drops BID OP 04/06/17 21:00 05/06/17 20:59 04/13/17 08:23 1 DROPS Labetalol HCl (Normodyne IV) 20 mg Q6H PRN IV 04/06/17 19:30 05/06/17 19:29 04/08/17 16:46 20 MG Senna/Docusate Sodium (Senokot S Tab) 1 tab QAM PO 04/08/17 09:00 05/08/17 08:59 04/13/17 08:22 1 TAB Hydralazine HCl (Apresoline Tab) 100 mg Q8 PO 04/08/17 14:00 1/27/18 13:59 04/13/17 05:48 100 MG Polyethylene (Miralax Powder Packet) 17 gm DAILY PO 04/08/17 17:30 05/07/17 09:44 04/13/17 08:22 17 GM Bisacodyl (Dulcolax Supp) 10 mg DAILY PRN RI 04/08/17 17:30 05/08/17 17:29 Spironolactone (Aldactone Tab) 25 mg QAM PO 04/09/17 09:00 05/09/17 08:59 04/13/17 08:23 25 MG Labetalol HCl (Normodyne Tab) 200 mg BID PO 04/09/17 21:00 05/09/17 20:59 04/13/17 08:22 200 MG Insulin Glargine (Lantus Vial) 62 units DAILY@2100 SC 04/10/17 21:00 05/10/17 20:59 04/12/17 21:15 62 UNITS Felodipine (Plendil Tabcr) 5 mg HS PO 04/13/17 21:00 05/13/17 20:59 Impression (1) Acute kidney failure (2) Chronic kidney disease (3) Proteinuria (4) HTN (hypertension) (5) Diabetes mellitus (6) Coronary artery disease (7) Atrial myxoma (8) Hyperlipidemia Ms. Dominguez has CKD w/ baseline creatinine 1.7 - 2.0 on the basis of microvascular disease. She was admitted for evaluation of progressive LE edema and hypertensive urgency. Renal US revealed 10.5 cm kidneys w/ cortical atrophy. Urinalysis was benign. Urine protein ~ 7g/d. 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 UPEP pending. Kidney function has worsened in the setting of LISSETH inhibitor and loop diuretic therapy. Echocardiogram revealed LVEF 65 - 70% w/ mild MR, PASP 35 - 40 mm HG, RA 15 mm HG, dilated IVC and evidence of diastolic dysfunction. 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 Recommendations ACUTE KIDNEY INJURY CONSISTENT WITH ATN: -- Creatinine plateaued -- Metabolic profile otherwise acceptable -- Maintain even fluid balance -- Check metabolic profile within 1 week of discharge (fax to [phone]) -- Follow up with Dr. Noyola within 2 weeks of discharge (I will arrange) CHRONIC KIDNEY DISEASE: -- Baseline creatinine has been 1.7 - 2.0. Abdominal CT films reviewed. Patient has mild renal cortical atrophy. Urine microscopy revealed a bland sediment -- Renal US report 04/05: 10.5 cm kidneys w/ mild cortical atrophy -- Renal artery doppler was negative for large vessel JASMINE. High resistive indices suggest small vessel disease -- 24 hour urine protein 7.5g. Likely due to diabetic nephropathy and hypertension PROTEINURIA: -- Patient did not tolerate LISSETH inhibitor due to worsening kidney function. Will avoid LISSETH / ARB. -- Small monoclonal (lambda LC) spike on SPEP/UPEP: this will need to be monitored. Can repeat with outpatient follow up. HYPERTENSION: -- 03/25 Echocardiogram shows moderate to severe LVH c/w longstanding arterial HTN. LVEF 65 - 70% w/ mild MR, pulmonary HTN and elevated right sided pressures -- Felodipine stopped as this may have contributed to LE edema -- Metoprolol changed to Labetalol 200 mg po BID -- Continue Isosorbide 60 mg po BID -- Continue Hydralazine 100 mg po TID -- Started Spironolactone 50 mg po daily yesterday -- Allow some permissive hypertension during GUSTAVO EDEMA: -- Low sodium diet. Dietitian has provided education -- Patient is wearing knee high compression stockings whenever OOB -- Edema is likely reflective of diastolic dysfunction and elevated right sided heart pressure as noted on 03/25 echocardiogram
[2017-04-13 14:46] VITALS: BP 149/62; PULSE 62
[2017-04-13] MEDS ORDERED: APR50 PO (15:26)
[2017-04-13] MEDS ORDERED: SPR25 PO (15:26)
[2017-04-13] MEDS ORDERED: PLN5 PO (15:26)
[2017-04-13] MEDS ORDERED: LBT200 PO (15:26)
--- NOTE | 2017-04-13 15:32 | Discharge Instructions ---
Discharge Instructions Date of Service Apr 13, 2017. Admission Reason for Admission: Acute Kidney Failure, Htn Discharge Discharge Diagnosis / Problem: Acute Kidney Failure Discharge Goals Goal(s): Decrease discomfort, Improve function Activity Recommendations Activity Limitations: resume your previous activity . Instructions / Follow-Up Instructions / Follow-Up Recommendations F/U with PCP in 1-2 weeks check metabolic profile in 1 week (fax to [phone]) f/u with Dr. Noyola within 2 weeks of discharge ACUTE KIDNEY INJURY CONSISTENT WITH ATN: -- Creatinine plateaued -- Maintain even fluid balance -- Check metabolic profile within 1 week of discharge (fax to [phone]) -- Follow up with Dr. Noyola within 2 weeks of discharge (I will arrange) CHRONIC KIDNEY DISEASE: -- Baseline creatinine has been 1.7 - 2.0. Abdominal CT films reviewed. Patient has mild renal cortical atrophy. Urine microscopy revealed a bland sediment -- Renal US report 04/05: 10.5 cm kidneys w/ mild cortical atrophy -- Renal artery doppler was negative for large vessel JASMINE. High resistive indices suggest small vessel disease -- 24 hour urine protein 7.5g. Likely due to diabetic nephropathy and hypertension PROTEINURIA: -- Patient did not tolerate LISSETH inhibitor due to worsening kidney function. Will avoid LISSETH / ARB. -- Small monoclonal (lambda LC) spike on SPEP/UPEP: this will need to be monitored. Can repeat with outpatient follow up. HYPERTENSION: -- 03/25 Echocardiogram shows moderate to severe LVH c/w longstanding arterial HTN. LVEF 65 - 70% w/ mild MR, pulmonary HTN and elevated right sided pressures -- Metoprolol changed to Labetalol 200 mg po BID -- Continue Isosorbide 60 mg po BID -- Continue Hydralazine 100 mg po TID -- On spironolactone; may recommend upping dose at next appointment. Currently on 25 mg PO daily. -- Allow some permissive hypertension during GUSTAVO -Hospitalist added felodipine back as patient was very hypertensive. will monitor lower extremity swelling. Dose however is lower than prior dose. EDEMA: -- Low sodium diet. Dietitian has provided education -- Patient is wearing knee high compression stockings whenever OOB -- Edema is likely reflective of diastolic dysfunction and elevated right sided heart pressure as noted on 03/25 echocardiogram Current Hospital Diet Patient's current hospital diet: Renal Diet, Diabetes Type 2 Diet Discharge Diet Recommended Diet: Diabetes Type 2 Diet, Renal Diet Pending Studies Studies pending at discharge: no Laboratory Results Hemoglobin A1c Test 04/06/17 06:53 Range/Units Estimated Average Glucose 157 mg/dl Hemoglobin A1c 7.1 H 4.5-5.6 % Medical Emergencies . Who to Call and When: Medical Emergencies: If at any time you feel your situation is an emergency, please call 911 immediately. . Non-Emergent Contact Non-Emergency issues call your: Primary Care Provider Call Non-Emergent contact if: you have any medication questions . . "Provider Documentation" section prepared by Hao Woods. . VTE Core Measure Inpt VTE Proph given/why not?: Enoxaparin (Lovenox)SQ
[2017-04-13 15:39] VITALS: BP 146/60; PULSE 66; TEMP 36.7; O2SAT 95
[2017-04-13 15:57] VITALS: BP 146/60; PULSE 66; TEMP 36.7; O2SAT 95
[2017-04-13] MEDS ORDERED: LABETALOL HCL 200 MG TAB PO SCH (16:00)
[2017-04-13] MEDS ORDERED: ALPRAZOLAM 0.5 MG TAB PO SCH ×2 (16:15→21:00)
[2017-04-13] MEDS ORDERED: FELODIPINE 5 MG TABCR PO SCH ×2 (16:15→21:00)
[2017-04-14] MEDS ORDERED: FELO5TAB PO (13:16)
[2017-04-14] MEDS ORDERED: LABE200T24 PO (13:16)
[2017-04-14] MEDS ORDERED: HYDR-4717 PO (13:16)
[2017-04-14] MEDS ORDERED: SPR25 PO (13:16)
--- NOTE | 2017-04-15 07:47 | Discharge Summary ---
Discharge Summary Date of Service Apr 15, 2017. 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 Creatinine appears to have peaked at 3. Will continue to monitor patient. Urine sodium points toward atn.. Continuing to hold her lasix and now permanently dcd ACEI. UA with 4+ protein, no blood. 24 hour urine protein with 7.5 grams, urine Free kappa and lambda light chains pending. Serum EBER pending. -Nephro decided to discontinue lisinopril due to increasing creatinine -Appreciate Nephro consult Mainttain even fluid balance -avoid nephrotoxins, will renally dose all meds -follow PRP -Nephrology did discuss about vascular access for possible IHD. -- Renal US report 04/05: 10.5 cm kidneys w/ mild cortical atrophy -- Renal artery doppler was negative for large vessel JASMINE. High resistive indices suggest small vessel disease -- 24 hour urine protein 7.5g. Likely due to diabetic nephropathy and hypertension -Will follow-up urine free and lambda light chains as well as immunofixation study in urine and serum Accelerated HTN/HTN/Abnormal ECG- BP 235/85 at highest since admission, BP has improved somewhat since then but continues to remain significantly elevated. It does respond nicely to a dose of IV labetalol, but then had N/V after administration. Remains asymptomatic. Added felodipine ECG with TWIs in lateral leads new from previous, RBBB. Troponin negative, no CP but had SOB on admission which has now resolved. ECHO with normal EF, mild MR, borderline Pulm HTN, stable mass/?myxoma, and grade 1 diastolic dysfunction with mod LVH -continue increased dose hydralazine to 100mg po tid -IV hydralazine prn, IV labetalol prn -switch metoprolol to Labetalol 200mg po bid today as she seems to respond better to this- discussed with nephrology -no further ACEI/ARB should be given -increased isosorbide to 60mg po bid on admission, consider increasing again if blood pressure not coming down spironolactone added, now at 50mg. 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 Was intravascularly depleted upon admission. ECHO with normal EF, mild MR, borderline Pulm HTN, stable mass/?myxoma, and grade 1 diastolic dysfunction with mod LVH. Edema improved -Appreciate Nephrology and Cardiology consults -dcd felodipine in case of adverse side effect -avoid diuretics as she is intravascularly depleted and with GUSTAVO, elevated BUN, but starting aldactone today as above -Continue compression stockings -low sodium diet, daily weights, dietary consult -no surgery opted in the past for myxoma CAD, status post CABG in 1992, but no details available/Sick sinus syndrome, status post dual-chamber pacemaker implantation on 10/29/2008 followed by EP. -remains always paced on tele, review of outpt records shows pacer functioning well and 100% atrial paced in 12/[address] Farrell--> ok to transfer to [facility] today -continue Zetia, is intolerant to statins -continue ASA -f/u Cardiology as outpt DMII-controlled, on residential insulin. HgbA1C here 7.1% -continue Lantus and SSI, accuchecks Hypertriglyceridemia-was > 1000 in the past. Recently switched from fenofibrate to fish oil due to renal failure -continue Zetia here -restart fish oil on discharge Left sided sciatica, lower back pain-ongoing for several months, with h/o falls -tylenol prn pain, voltaren gel ok as minimal systemic absorption -PT/OT consults Proph-YASMANY hose,heparin SQ Dispo-transfer to [facility], will need PT/OT consults due to recent falls, leg swelling and left sided sciatica, may need rehab/SNF DNR/DNI as discussed with pt with daughter who is HCPOA at the bedside. She has a living will that daughter has reviewed with her This includes examination of the patient, discharge planning, medication reconciliation, and communication with other providers. Discharge Instructions Please refer to the electronic Patient Visit Report (Discharge Instructions) for additional information.
== END 2017-04-13 17:00 | disposition home or self-care (01) | DRG 291 ==
LOC: C.EDB 19:29 → C.MED 04-05 01:05 → ENRESERV 04-05 01:35 → C.MED 04-08 15:19 → ENRESERV 04-09 10:58 → C.MS2W 04-09 11:31
PROVIDERS: ADMIT Hospitalist; ATTEND Internal Medicine Sports Medicine
DX: I13.0 Hypertensive heart and chronic kidney disease with heart failure and stage 1 through stage 4 chronic kidney disease, or unspecified chronic kidney disease (principal); N17.0 Acute kidney failure with tubular necrosis; I50.32 Chronic diastolic (congestive) heart failure; R80.9 Proteinuria, unspecified; I16.0 Hypertensive urgency; D15.1 Benign neoplasm of heart; I34.0 Nonrheumatic mitral (valve) insufficiency; N18.3 Chronic kidney disease, stage 3 (moderate); I25.10 Atherosclerotic heart disease of native coronary artery without angina pectoris; E11.22 Type 2 diabetes mellitus with diabetic chronic kidney disease; E11.21 Type 2 diabetes mellitus with diabetic nephropathy; E78.5 Hyperlipidemia, unspecified; M54.42 Lumbago with sciatica, left side; G47.00 Insomnia, unspecified; Z51.81 Encounter for therapeutic drug level monitoring; Z79.899 Other long term (current) drug therapy; Z79.4 Long term (current) use of insulin; Z79.82 Long term (current) use of aspirin; Z66 Do not resuscitate; Z95.0 Presence of cardiac pacemaker; Z95.1 Presence of aortocoronary bypass graft; Z91.81 History of falling

== ENCOUNTER → 2017-04-04 | Outpatient (CLI) | payer BC ==
[~2017-04-04] MED LIST changes: +AMOX875T PO; +APR50 PO; +CEFD1CAP14 PO; +CEFU250T15 PO; +DOXY-300 PO; +FAMO1TAB47 PO; +FAMO20TA11 PO; +FELO10TA2 PO; +FLUO5CRE TOP; +FURO-85 PO; +HYDR-4717 PO; +INSDGIPEN SC; +INSU1.2I SQ; +IPRA-64 INH; +LABE200T5 PO; +LBT200 PO; +MELA1TAB5 PO; +NOVOLOG SQ; +NUTR-7 PO; +NVLGIPEN SC; +OMEG10002 PO; +OXYC-57 PO; +PLN5 PO; +SENNTAB23 PO; +SPIR25TA6 PO; +SRQ25 PO; +VANC1SUS PO; +VANC5CAP PO
[2017-04-04 12:10] LABS: HEMOGLOBIN A1C 7.1 % (4.5-5.6)
[2017-04-04 12:46] LABS: ALBUMIN 2.9 gm/dl (3.4-5.0); ALT/SGPT 15 U/L (12-78); AST/SGOT 16 U/L (15-37); BLOOD UREA NITROGEN 52 mg/dl (7-18); CARBON DIOXIDE 25 mmol/L (21-32); CREATININE 2.43 mg/dl (0.60-1.20); GLUCOSE 128 mg/dl (70-99); POTASSIUM 3.7 mmol/L (3.5-5.1); SODIUM 138 mmol/L (136-145)
[2017-04-04 12:49] LABS: ALKALINE PHOSPHATASE 41 U/L (45-117); TOTAL PROTEIN 6.6 gm/dl (6.4-8.2)
== END | disposition home or self-care (01) ==
LOC: C.LAB1850 10:44
PROVIDERS: ATTEND Internal Medicine
DX: N18.9 Chronic kidney disease, unspecified (principal); E11.40 Type 2 diabetes mellitus with diabetic neuropathy, unspecified

== ENCOUNTER 2017-04-14 12:09 | Inpatient (IN) | payer BC, OTHER ==
[~2017-04-14] VITALS: Ht 147.3 cm; Wt 70.9 kg
[~2017-04-14 12:09] MED LIST changes: +APR50 PO; -CPR/500 PO; -DICL1GEL12 TOP; -ENAL1TAB31 PO; -FELO5TAB PO; -FENO145T26 PO; +FLUO5CRE TOP; -HYDR25TA4 PO; +LBT200 PO; -LPR100 PO; +OMEG10002 PO; +PLN5 PO; +SPR25 PO
[2017-04-14 12:47] LABS: BASO % 0.5 %; BASO ABS # 0.05 K/uL (0-0.2); EOS % 1.5 %; EOS ABS # 0.15 K/uL (0-0.5); HEMATOCRIT 29.9 % (37-47); HEMOGLOBIN 10.4 g/dL (12.0-16.0); LYMPH % 4.1 %; LYMPH ABS # 0.42 K/uL (1.2-3.4); MEAN CELL VOLUME 89.5 fL (80-100); MEAN CORPUSCULAR HEMOGLOBIN 31.1 pg (25-34); MEAN CORPUSCULAR HGB CONC 34.8 g/dl (32-36); MEAN PLATELET VOLUME 9.3 fL (7.4-10.4); MONO ABS # 1.02 K/uL (0.11-0.59); NEUT % 82.9 %; NEUT ABS # 8.51 K/uL (1.4-6.5); PLATELET COUNT 225 K/uL (130-400); RED CELL DISTRIBUTION WIDTH CV 13.7 % (11.5-14.5); WHITE BLOOD COUNT 10.25 K/uL (4.8-10.8)
[2017-04-14] MEDS ORDERED: HydrALAZINE HCL 20 MG/ML VIAL IV. STA ×2 (12:53→14:25)
[2017-04-14] MEDS ORDERED: ONDANSETRON INJ 2 MG/ML 2 ML VIAL IV STA (12:53)
[2017-04-14 12:54] LABS: ALBUMIN 2.5 gm/dl (3.4-5.0); CALCIUM 8.8 mg/dl (8.5-10.1); CREATININE 3.25 mg/dl (0.60-1.20); POTASSIUM 4.8 mmol/L (3.5-5.1)
[2017-04-14 12:57] LABS: TOTAL PROTEIN 6.4 gm/dl (6.4-8.2)
[2017-04-14] MEDS ORDERED: HYDR-4717 PO (13:16)
[2017-04-14] MEDS ORDERED: FELO5TAB PO (13:16)
[2017-04-14] MEDS ORDERED: SPR25 PO (13:16)
[2017-04-14] MEDS ORDERED: LABE200T24 PO (13:16)
--- NOTE | 2017-04-14 14:25 | DIAGNOSTIC IMAGING REPORT ---
CT SCAN OF THE ABDOMEN AND PELVIS WITHOUT CONTRAST CLINICAL HISTORY: Right-sided abdominal pain COMPARISON STUDY: 04/04/2017 TECHNIQUE: CT scan of the abdomen and pelvis was performed from the lung bases to the proximal femurs. Images are reviewed in the axial, sagittal, and coronal planes. IV contrast was not administered for this examination. A dose lowering technique was utilized adhering to the principles of ALARA. CT DOSE: 1411.82 mGy.cm FINDINGS: Lower chest: Since the prior study, the patient has developed bilateral pleural effusions and bibasilar atelectasis. Liver: The unenhanced liver is normal in size, contour, and attenuation. There is no intrahepatic biliary ductal dilatation. Gallbladder: Cholelithiasis. Spleen: Normal in size and attenuation. Pancreas: Unremarkable. Adrenal glands: Unremarkable. Kidneys: There is a right renal calcification, likely vascular. There is mild right-sided perinephric stranding unchanged the prior study. There is an 18 mm right renal cyst. There is no hydronephrosis. No ureteral or bladder calculi are visualized. Bowel: There are no transition zones to indicate bowel obstruction. There is right colonic diverticulosis. No acute peridiverticular inflammatory changes are visualized. There is no evidence of acute appendicitis. Peritoneum: There is a small amount of free pelvic fluid. This was not present on the preceding study. This tiny fat-containing umbilical hernia. Vasculature: There is scattered atherosclerotic calcifications present. There is no evidence of abdominal aortic aneurysm. Adenopathy: None. Pelvic viscera: The uterus is surgically absent. There is mild bladder distention. There is air within the bladder, likely iatrogenic. Skeletal structures: No destructive osseous lesions are seen. IMPRESSION: 1. No renal, ureteral, or bladder calculi identified 2. Cholelithiasis 3. No evidence of bowel obstruction. No evidence of free air 4. Diverticulosis. No evidence of acute diverticulitis 5. Air within the bladder, possibly iatrogenic. Please correlate with any history of recent catheterization 6. No evidence of acute appendicitis 7. Interval development of small bilateral pleural effusions and bibasal atelectasis 8. Interval development of a small amount of free pelvic fluid Electronically signed by: Juan Santamaria M.D. 04/14/2017 2:23 PM Dictated Date/Time: 04/14/2017 2:16 PM
--- NOTE | 2017-04-14 16:08 | EMERGENCY ROOM VISIT NOTE ---
History Report prepared by Nayla: Dom Croft Under the Supervision of: Dr. Boom Martin M.D. First contact with patient: 12:40 Chief Complaint: ILLNESS Stated Complaint: ILLNESS History of Present Illness The patient is a 82 year old female who presents to the Emergency Room with complaints of nausea that began last night. She was recently treated as an inpatient in our ER for the past 7 days for hypertension. She was discharged yesterday with Labetalol. Since she started her new medication last night, she has become very nauseated. This morning, her nausea persisted and she began to dry heave and feel moderately weak. She denies any actual vomiting or fevers. She notes that her pressures are still elevated. She did not take any of her medications this morning secondary to her nausea. Her last bowel movement was this morning and was normal without any discolorations. She denies any chest pain or abdominal pain at rest. She did have some abdominal pain earlier in the right upper abdomen when she was vomiting. She has some shortness of breath with exertion that is chronic. Her son notes that she lives alone and he is worried that she is not able to take care of herself. Source of History: patient Onset: last night Symptom Intensity: moderate Quality: other (Nausea) Timing: constant Associated Symptoms: + weakness, No fevers, No chest pain, No SOB, No vomiting, No melena, No hematochezia, No diarrhea Review of Systems See HPI for pertinent positives & negatives. A total of 10 systems reviewed and were otherwise negative. Past Medical & Surgical Medical Problems: (1) Atrial myxoma (2) Benign hypertension (3) Chronic kidney disease (4) Coronary artery bypass grafting (5) Coronary artery disease (6) Diabetes mellitus (7) Heart disease (8) Hyperlipidemia (9) Hysterectomy (10) Implantation of cardiac pacemaker (11) Toe surgery Family History Patient reports no known family medical history. Social History Smoking Status: Never Smoker Alcohol Use: none Drug Use: none Marital Status: Housing Status: lives alone Occupation Status: retired Current/Historical Medications Scheduled Alprazolam (Xanax), 0.5 MG PO HS Aspirin (Aspirin Ec), 81 MG PO QAM Cholecalciferol (Vitamin D3), 1 TAB PO QDL Cyclosporine (Ophth) (Restasis), 1 DROP OP BID Ezetimibe (Zetia), 10 MG PO QAM Felodipine (Plendil), 5 MG PO HS Fluorouracil (Topical) (Efudex), 1 APPLN TOP BID Hydralazine Hcl (Apresoline), 2 TAB PO TID Insulin Aspart (Novolog Flexpen), 1 DOSE SC UD Insulin Glargine (Toujeo Solostar), 62 UNITS SC QPM @ 2100 Isosorbide Mononitrate Ext Rel (Imdur Ext Rel), 60 MG PO QAM Labetalol Hcl (Labetalol Hcl), 200 MG PO BID [place]-3 Fatty Acids (Fish Oil), 1,000 MG PO DAILY Spironolactone (Spironolactone), 1 TAB PO QAM Scheduled PRN Acetaminophen (Tylenol Extra Strength), 500-1,000 MG PO TID PRN for Pain Allergies Coded Allergies: Carbamazepine (Verified Allergy, Intermediate, RASH, 04/14/17) Carvedilol (Verified Allergy, Intermediate, DIZZINESS, VISUAL DISTURBANCES , 04/14/17) Erythromycin (Verified Allergy, Intermediate, RASH, 04/14/17) Statins (Verified Adverse Reaction, Intermediate, MUSCLE ACHES, 04/14/17) Physical Exam Vital Signs Date Time Temp Pulse Resp B/P (MAP) Pulse Ox O2 Delivery O2 Flow Rate FiO2 04/14/17 15:15 76 18 195/99 95 Room Air 04/14/17 14:15 76 20 208/68 92 Room Air 04/14/17 13:42 78 20 195/66 94 Room Air 04/14/17 13:31 90 04/14/17 13:24 80 24 193/68 92 Room Air 04/14/17 13:15 74 24 211/67 92 Room Air 04/14/17 13:03 72 20 211/104 92 Room Air 04/14/17 12:44 65 20 227/91 93 Room Air 04/14/17 12:17 36.8 70 22 231/69 95 Room Air Physical Exam Constitutional: Vital signs reviewed. Eyes: Pupils are equal round reactive to light. Conjunctiva are noninjected. ENT: Pharynx is clear without erythema or exudate. Mucous membranes are moist. Neck supple without meningeal signs. Respiratory: Clear to auscultation bilaterally. Breath sounds are equal bilaterally. Cardiovascular: Regular rate and rhythm. No rubs or gallops. GI: Soft, nondistended. There is epigastric and RUQ tenderness. No Voss's sign or guarding. Bowel sounds are present. Musculoskeletal: Bilateral lower extremity edema. No lower extremity tenderness. Integumentary: No cyanosis. Neurological: The patient is awake and alert. No focal deficits. Psychiatric: Normal affect. Medical Decision & Procedures ER Provider Diagnostic Interpretation: Radiology results as stated below per my review and the radiologist's interpretation: CT SCAN OF THE ABDOMEN AND PELVIS WITHOUT CONTRAST CLINICAL HISTORY: Right-sided abdominal pain COMPARISON STUDY: 04/04/2017 TECHNIQUE: CT scan of the abdomen and pelvis was performed from the lung bases to the proximal femurs. Images are reviewed in the axial, sagittal, and coronal planes. IV contrast was not administered for this examination. A dose lowering technique was utilized adhering to the principles of ALARA. CT DOSE: 1411.82 mGy.cm FINDINGS: Lower chest: Since the prior study, the patient has developed bilateral pleural effusions and bibasilar atelectasis. Liver: The unenhanced liver is normal in size, contour, and attenuation. There is no intrahepatic biliary ductal dilatation. Gallbladder: Cholelithiasis. Spleen: Normal in size and attenuation. Pancreas: Unremarkable. Adrenal glands: Unremarkable. Kidneys: There is a right renal calcification, likely vascular. There is mild right-sided perinephric stranding unchanged the prior study. There is an 18 mm right renal cyst. There is no hydronephrosis. No ureteral or bladder calculi are visualized. Bowel: There are no transition zones to indicate bowel obstruction. There is right colonic diverticulosis. No acute peridiverticular inflammatory changes are visualized. There is no evidence of acute appendicitis. Peritoneum: There is a small amount of free pelvic fluid. This was not present on the preceding study. This tiny fat-containing umbilical hernia. Vasculature: There is scattered atherosclerotic calcifications present. There is no evidence of abdominal aortic aneurysm. Adenopathy: None. Pelvic viscera: The uterus is surgically absent. There is mild bladder distention. There is air within the bladder, likely iatrogenic. Skeletal structures: No destructive osseous lesions are seen. IMPRESSION: 1. No renal, ureteral, or bladder calculi identified 2. Cholelithiasis 3. No evidence of bowel obstruction. No evidence of free air 4. Diverticulosis. No evidence of acute diverticulitis 5. Air within the bladder, possibly iatrogenic. Please correlate with any history of recent catheterization 6. No evidence of acute appendicitis 7. Interval development of small bilateral pleural effusions and bibasal atelectasis 8. Interval development of a small amount of free pelvic fluid Electronically signed by: Juan Santamaria M.D. 04/14/2017 2:23 PM Dictated Date/Time: 04/14/2017 2:16 PM Laboratory Results 04/14/17 12:25 Red Blood Count 3.34, Mean Corpuscular Volume 89.5, Mean Corpuscular Hemoglobin 31.1, Mean Corpuscular Hemoglobin Concent 34.8, Mean Platelet Volume 9.3, Neutrophils (%) (Auto) 82.9, Lymphocytes (%) (Auto) 4.1, Monocytes (%) (Auto) 10.0, Eosinophils (%) (Auto) 1.5, Basophils (%) (Auto) 0.5, Neutrophils # (Auto ) 8.51, Lymphocytes # (Auto) 0.42, Monocytes # (Auto) 1.02, Eosinophils # (Auto ) 0.15, Basophils # (Auto) 0.05 04/14/17 12:25 Test 04/14/17 12:25 White Blood Count 10.25 K/uL (4.8-10.8) Red Blood Count 3.34 M/uL (4.2-5.4) Hemoglobin 10.4 g/dL (12.0-16.0) Hematocrit 29.9 % (37-47) Mean Corpuscular Volume 89.5 fL (80-100) Mean Corpuscular Hemoglobin 31.1 pg (25-34) Mean Corpuscular Hemoglobin Concent 34.8 g/dl (32-36) Platelet Count 225 K/uL (130-400) Mean Platelet Volume 9.3 fL (7.4-10.4) Neutrophils (%) (Auto) 82.9 % Lymphocytes (%) (Auto) 4.1 % Monocytes (%) (Auto) 10.0 % Eosinophils (%) (Auto) 1.5 % Basophils (%) (Auto) 0.5 % Neutrophils # (Auto) 8.51 K/uL (1.4-6.5) Lymphocytes # (Auto) 0.42 K/uL (1.2-3.4) Monocytes # (Auto) 1.02 K/uL (0.11-0.59) Eosinophils # (Auto) 0.15 K/uL (0-0.5) Basophils # (Auto) 0.05 K/uL (0-0.2) RDW Standard Deviation 45.0 fL (36.4-46.3) RDW Coefficient of Variation 13.7 % (11.5-14.5) Immature Granulocyte % (Auto) 1.0 % Immature Granulocyte # (Auto) 0.10 K/uL (0.00-0.02) Anion Gap 8.0 mmol/L (3-11) Est Creatinine Clear Calc Drug Dose 11.3 ml/min Estimated GFR () 14.5 Estimated GFR (Non- 12.5 BUN/Creatinine Ratio 21.6 (10-20) Calcium Level 8.8 mg/dl (8.5-10.1) Total Bilirubin 0.4 mg/dl (0.2-1) Aspartate Amino Transf (AST/SGOT) 21 U/L (15-37) Alanine Aminotransferase (ALT/SGPT) 17 U/L (12-78) Alkaline Phosphatase 52 U/L (45-117) Troponin I 0.356 ng/ml (0-0.045) Total Protein 6.4 gm/dl (6.4-8.2) Albumin 2.5 gm/dl (3.4-5.0) Globulin 3.9 gm/dl (2.5-4.0) Albumin/Globulin Ratio 0.6 (0.9-2) Laboratory results as reviewed by me. Medications Administered Medications (Trade) Dose Ordered Sig/Haja Route Start Time Stop Time Status Last Admin Dose Admin Ondansetron HCl (Zofran Inj) 4 mg NOW STAT IV 04/14/17 12:53 04/14/17 12:54 DC 04/14/17 13:04 4 MG Hydralazine HCl (HydrALAZINE INJ) 10 mg NOW STAT IV. 04/14/17 12:53 04/14/17 12:54 DC 04/14/17 13:04 10 MG Hydralazine HCl (HydrALAZINE INJ) 5 mg NOW STAT IV. 04/14/17 14:25 04/14/17 14:26 DC 04/14/17 15:15 5 MG ECG Indication: nausea Rate (beats per minute): 72 Findings: PAC, Q waves (Inferior), RBBB, other (ST/T wave changes in the precordial leads) Comparison ECG Date: April 07, 2017 Change: no significant change Change: RBBB and ST/T wave changes are old Repeat ECG: Indication - Elevated Troponin Findings: Sinus rhythm at 66, PAC, RBBB, persistent ST/T wave changes. No change from previous ED Course 1240: The patient was evaluated in room B12. A complete history and physical exam was performed. 1253: Ordered Hydralazine HCl 10 mg IV, Zofran Inj 4 mg IV 1354: Her pressures are now 195/66. She is going to CT. 1400: [place]ure[place] [facility] [place] discussed the patient and her results. The patient will be further evaluated by him. 1425: Ordered Hydralazine HCl 5 mg IV 1436: I updated the patient on her test results and the plan for hospitalization. She denies any chest pain, shortness of breath, or abdominal pain at this time. Medical Decision This is an 82-year-old female presents with vomiting, upper abdominal pain and high blood pressure. Differential diagnosis includes medication side effect, gastritis, cholelithiasis, cholecystitis, pancreatitis, hypertensive emergency. I did perform a limited focused review of portions of the patient's old chart on the electronic medical record. The patient was recently treated as an inpatient in our hospital for hypertension. She was treated with IV Labetalol but noted to become nauseated with episodes of vomiting after administration of Labetalol. She was discharged with Labetalol instead of Metoprolol and placed on Isosorbide and Spirolactone as well. I did evaluate the patient as noted above. IV access was established. The patient was placed on a continuous air sampling and monitoring. Her pressure is severely elevated. I did treat her with IV hydralazine. She was also given Zofran IV. I did order and personally review the patient's 12-lead EKG as described above. She has a right bundle branch block and nonspecific ST-T wave changes which are not new. She denies having any chest pain or shortness of breath. I did order and review the patient's blood work as noted in the electronic medical record. Her creatinine is chronically elevated. Her troponin is also elevated. She again denies any chest pain or shortness breath. I did repeat another twelve-lead EKG which showed no significant changes. Her blood pressure did improve but then came back up. I did treat her with additional hydralazine IV. I did order a CT of the abdomen and pelvis. I did review the images myself as well as the radiology report as described above. She has cholelithiasis without evidence of cholecystitis. On reexamination patient has no tenderness or pain to the upper abdomen. I did discuss the test results with the patient. I did recommend hospitalization for further evaluation. I did discuss case with the hospitalist and telephonic case manager. Medication Reconcilliation Current Medication List: was personally reviewed by me Blood Pressure Screening Patient's blood pressure: Elevated blood pressure Blood pressure disposition: Referred to PCP Consults Time Called: 1355 Consulting Physician: Dr. Maureen [place] [facility] [place]ed Call: 1400 We discussed the patient and her results. The patient will be further evaluated by him. Impression Primary Impression: Hypertensive emergency Additional Impressions: Nausea and vomiting Cholelithiasis Scribe Attestation The scribe's documentation has been prepared under my direct and personally reviewed by me in its entirety. I confirm that the note above accurately reflects all work, treatment, procedures, and medical decision making performed by me. Departure Information Dispostion Being Evaluated By Hospitalist Referrals RV. Noyola MD (PCP) Patient Instructions [facility] Problem Qualifiers Additional Impressions: Nausea and vomiting Vomiting type: unspecified Vomiting Intractability: non-intractable Qualified Codes: R11.2 - Nausea with vomiting, unspecified Cholelithiasis Cholelithiasis location: gallbladder Cholecystitis presence: with cholecystitis Cholecystitis acuity: unspecified acuity Biliary obstruction: without biliary obstruction Qualified Codes: K80.00 - Calculus of gallbladder with acute cholecystitis without obstruction
[2017-04-14] MEDS ORDERED: POLYETHYLENE (MIRALAX) 17 GM PACK PO PRN (16:15)
[2017-04-14] MEDS ORDERED: DEXTROSE 50% 50 ML SYR IV PRN (16:15)
[2017-04-14] MEDS ORDERED: GLUCOSE 40% GEL 15 GM TUBE PO PRN (16:15)
[2017-04-14] MEDS ORDERED: GLUCAGON FOR INJ 1 MG VIAL SQ PRN (16:15)
[2017-04-14] MEDS ORDERED: ZOLPIDEM TARTRATE 5 MG TAB PO PRN ×2 (16:15)
[2017-04-14] MEDS ORDERED: GLUCOSE 10 TABS/TUBE PO PRN (16:15)
[2017-04-14] MEDS ORDERED: ALUMINUM/MAGNESIUM/SIMETH (MAALOX MAX) 30 ML UDC PO PRN ×2 (16:15→16:45)
[2017-04-14] MEDS ORDERED: MAGNESIUM HYDROXIDE SUSP 30 ML UDC PO PRN (16:15)
--- NOTE | 2017-04-14 16:40 | History and Physical ---
History & Physical Date & Time of Service: Apr 14, 2017 at 16:26 Chief Complaint: Illness Primary Care Physician: RV. Noyola MD History of Present Illness Source: patient, family Past Medical/Surgical History Medical Problems: (1) Benign hypertension Status: Chronic (2) Coronary artery bypass grafting Status: Resolved (3) Diabetes mellitus Status: Chronic (4) Heart disease Status: Chronic (5) Hyperlipidemia Status: Chronic (6) Hysterectomy Status: Resolved (7) Implantation of cardiac pacemaker Status: Resolved (8) Toe surgery Status: Resolved Family History Patient reports no known family medical history. Social History Smoking Status: Never Smoker Drug Use: none Marital Status: Housing status: lives with family Occupational Status: retired Immunizations History of Influenza Vaccine: N/A History of Tetanus Vaccine?: Yes History of Pneumococcal: Yes History of Hepatitis B Vaccine: No Multi-Drug Resistant Organisms History of MDRO: No Allergies Coded Allergies: Carbamazepine (Verified Allergy, Intermediate, RASH, 04/14/17) Carvedilol (Verified Allergy, Intermediate, DIZZINESS, VISUAL DISTURBANCES , 04/14/17) Erythromycin (Verified Allergy, Intermediate, RASH, 04/14/17) Statins (Verified Adverse Reaction, Intermediate, MUSCLE ACHES, 04/14/17) Home Medications Scheduled Alprazolam (Xanax), 0.5 MG PO HS Aspirin (Aspirin Ec), 81 MG PO QAM Cholecalciferol (Vitamin D3), 1 TAB PO QDL Cyclosporine (Ophth) (Restasis), 1 DROP OP BID Ezetimibe (Zetia), 10 MG PO QAM Felodipine (Plendil), 5 MG PO HS Fluorouracil (Topical) (Efudex), 1 APPLN TOP BID Hydralazine Hcl (Apresoline), 2 TAB PO TID Insulin Aspart (Novolog Flexpen), 1 DOSE SC UD Insulin Glargine (Toujeo Solostar), 62 UNITS SC QPM @ 2100 Isosorbide Mononitrate Ext Rel (Imdur Ext Rel), 60 MG PO QAM Labetalol Hcl (Labetalol Hcl), 200 MG PO BID [place]-3 Fatty Acids (Fish Oil), 1,000 MG PO DAILY Spironolactone (Spironolactone), 1 TAB PO QAM Scheduled PRN Acetaminophen (Tylenol Extra Strength), 500-1,000 MG PO TID PRN for Pain Review of Systems Constitutional: + weakness, + fatigue, No fever, No chills, No sweats, No weight loss, No problem reported Eyes: No worsening of vision, No eye pain, No redness, No discharge, No diplopia, No problem reported ENT: No hearing loss, No unusual epistaxis, No nasal symptoms, No sore throat, No tinnitus, No dental problems, No trouble swallowing, No problem reported Respiratory: No cough, No sputum, No wheezing, No shortness of breath, No dyspnea on exertion, No dyspnea at rest, No hemoptysis, No problem reported Cardiovascular: No chest pain, No orthopnea, No PND, No edema, No claudication , No palpitations, No problem reported Abdomen: + nausea, + vomiting, No pain, No diarrhea, No constipation, No GI bleeding, No problem reported Musculoskeletal: + joint pain, No muscle pain, No swelling, No calf pain, No problem reported Genitourinary - Female: No dysuria, No urinary frequency, No urinary urgency, No urinary incontinence, No urinary retention, No hematuria, No dysmenorrhea, No menorrhagia, No metrorrhagia, No rash, No vaginal bleeding, No vaginal discharge, No vaginal itching, No vulvodynia, No , No problem reported Neurologic: No memory loss, No paralysis, No weakness, No numbness/tingling, No vertigo, No balance problems, No problem reported Psychiatric: No depression symptoms, No anhedonism, No anxiety, No insomnia, No substance abuse, No problem reported Endocrine: + fatigue, No excessive thirst, No excessive urination, No problem reported Hematologic / Lymphatic: No abnormal bleeding/bruising, No clotting problems, No swollen lymph nodes, No night sweats, No problem reported Integumentary: No rash, No itch, No new/changing skin lesions, No color change , No bleeding, No problem reported Allergic / Immunologic: No environmental allergies, No seasonal allergies, No pet sensitivities, No food allergies, No hives, No frequent infections, No poor healing, No prolonged convalescence, No problem reported Physical Exam Vital Signs Date Time Temp Pulse Resp B/P (MAP) Pulse Ox O2 Delivery O2 Flow Rate FiO2 04/14/17 15:15 76 18 195/99 95 Room Air 04/14/17 14:15 76 20 208/68 92 Room Air 04/14/17 13:42 78 20 195/66 94 Room Air 04/14/17 13:31 90 04/14/17 13:24 80 24 193/68 92 Room Air 04/14/17 13:15 74 24 211/67 92 Room Air 04/14/17 13:03 72 20 211/104 92 Room Air 04/14/17 12:44 65 20 227/91 93 Room Air 04/14/17 12:17 36.8 70 22 231/69 95 Room Air General Appearance: + mild distress, + obese Head: normocephalic, atraumatic Eyes: normal inspection, EOMI ENT: normal ENT inspection, hearing grossly normal Neck: supple Respiratory/Chest: chest non-tender, lungs clear, normal breath sounds, no respiratory distress, no accessory muscle use Cardiovascular: regular rate, rhythm, no edema, no gallop, no JVD, no murmur, normal peripheral pulses Abdomen/GI: normal bowel sounds, non tender, soft, no organomegaly, no pulsatile mass Back: normal inspection Extremities/Musculoskelatal: normal inspection, no calf tenderness, normal capillary refill, no pedal edema Neurologic/Psych: 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 II-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 nml as tested, no motor/sensory deficits, alert, normal mood/affect, normal reflexes, oriented x 3 Skin: normal color, warm/dry, no rash Diagnostics Laboratory Results Results Past 24 Hours Test 04/14/17 12:25 Range/Units White Blood Count 10.25 4.8-10.8 K/uL Red Blood Count 3.34 4.2-5.4 M/uL Hemoglobin 10.4 12.0-16.0 g/dL Hematocrit 29.9 37-47 % Mean Corpuscular Volume 89.5 80-100 fL Mean Corpuscular Hemoglobin 31.1 25-34 pg Mean Corpuscular Hemoglobin Concent 34.8 32-36 g/dl Platelet Count 225 130-400 K/uL Mean Platelet Volume 9.3 7.4-10.4 fL Neutrophils (%) (Auto) 82.9 % Lymphocytes (%) (Auto) 4.1 % Monocytes (%) (Auto) 10.0 % Eosinophils (%) (Auto) 1.5 % Basophils (%) (Auto) 0.5 % Neutrophils # (Auto) 8.51 1.4-6.5 K/uL Lymphocytes # (Auto) 0.42 1.2-3.4 K/uL Monocytes # (Auto) 1.02 0.11-0.59 K/uL Eosinophils # (Auto) 0.15 0-0.5 K/uL Basophils # (Auto) 0.05 0-0.2 K/uL RDW Standard Deviation 45.0 36.4-46.3 fL RDW Coefficient of Variation 13.7 11.5-14.5 % Immature Granulocyte % (Auto) 1.0 % Immature Granulocyte # (Auto) 0.10 0.00-0.02 K/uL Sodium Level 137 136-145 mmol/L Potassium Level 4.8 3.5-5.1 mmol/L Chloride Level 107 98-107 mmol/L Carbon Dioxide Level 22 21-32 mmol/L Anion Gap 8.0 3-11 mmol/L Blood Urea Nitrogen 70 7-18 mg/dl Creatinine 3.25 0.60-1.20 mg/dl Est Creatinine Clear Calc Drug Dose 11.3 ml/min Estimated GFR () 14.5 Estimated GFR (Non- 12.5 BUN/Creatinine Ratio 21.6 10-20 Random Glucose 83 70-99 mg/dl Calcium Level 8.8 8.5-10.1 mg/dl Total Bilirubin 0.4 0.2-1 mg/dl Aspartate Amino Transf (AST/SGOT) 21 15-37 U/L Alanine Aminotransferase (ALT/SGPT) 17 12-78 U/L Alkaline Phosphatase 52 45-117 U/L Troponin I 0.356 0-0.045 ng/ml Total Protein 6.4 6.4-8.2 gm/dl Albumin 2.5 3.4-5.0 gm/dl Globulin 3.9 2.5-4.0 gm/dl Albumin/Globulin Ratio 0.6 0.9-2 Impression Assessment and Plan 82 year old female with past medical history of hypertension, CAD status post CABG 4, 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 Patient was discharged home and came back with severe nausea, dry heaves 24 hours, patient did not eat anything or drink anything for 24 hours since her discharge. 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 Bee last note we'll allow permissive hypertension while patient has acute kidney injury, will shoot for a systolic blood pressure range of 150/160 I believe Zofran/Pepcid/Protonix patient will be able to take her blood pressure medications orally if that then will switch him to IV Follow-up renal function CT abdomen and pelvis was done in ER and did not reveal any explanation for her vomiting, patient has cholelithiasis but no Voss sign or no radiologic stigmata of cholecystitis Patient continued to vomit, consider HIDA scan tomorrow Trend troponin Consult pensionholder information clerk due to EKG changes Continue Zetia and fish oil as she is intolerant to statins Decrease her Lantus to 20 units daily while she has very poor oral intake, and place her on sliding scale insulin, when her oral intake improves Lantus dose should be adjusted Heparin subcutaneous for DVT prophylaxis I discussed CODE STATUS with the patient and her daughter, patient wants to be full code but does not want to live on machines, patient and her daughter stated to make her CODE STATUS full code, if she will permanently live on a machine her daughter will withdrawal her care Resuscitation Status FULL RESUSCITATION VTE Prophylaxis VTE Risk Assessment Done? Y/N: Yes Risk Level: Moderate
[2017-04-14] MEDS ORDERED: LABETALOL HCL IV 5 MG/ML 20ML IV PRN (16:45)
[2017-04-14 17:00] VITALS: O2SAT 95; Ht 147.3 cm; Wt 70.9 kg
[2017-04-14] MEDS ORDERED: FAMOTIDINE 20MG/5ML IV PUSH IV ONE (17:03)
[2017-04-14] MEDS ORDERED: PANTOprazole SOD 40 MG TAB ONE (17:03)
[2017-04-14 17:17] LABS: RETIC COUNT % 2.9 % (0.5-2.0)
--- NOTE | 2017-04-14 17:25 | DIAGNOSTIC IMAGING REPORT ---
CT HEAD WITHOUT CONTRAST (CT) CLINICAL HISTORY: Nausea, vomiting, hypertensive crisis.. Possible stroke COMPARISON STUDY: No previous studies for comparison. TECHNIQUE: Axial CT of the brain is performed from the vertex to the skull base. IV contrast was not administered for this examination. A dose lowering technique was utilized adhering to the principles of ALARA. CT DOSE: 655.73 mGy.cm FINDINGS: No intra or extra-axial mass lesions are visualized. There is no CT evidence of acute cortical infarction. There is no evidence of midline shift. There is no acute hemorrhage. No calvarial fractures are visualized. There are minor white matter hypodensities likely on a small vessel basis. There is no evidence of pathologic ventricular dilatation. There is mild to moderate mucosal thickening within the right sphenoid sinus. IMPRESSION: No acute intracranial findings Electronically signed by: Juan Santamaria M.D. 04/14/2017 5:23 PM Dictated Date/Time: 04/14/2017 5:22 PM
[2017-04-14 17:27] VITALS: BP 194/72; PULSE 71; TEMP 37; O2SAT 95
[2017-04-14] MEDS ORDERED: FAMOTIDINE IV INJ 20 MG in DEXTROSE 5% 100ML 100 ML IV SCH (18:00)
[2017-04-14] MEDS: SODIUM CHLORIDE 0.9% 1000ML 1,000 ML IV SCH (18:15)
[2017-04-14] MEDS: FAMOTIDINE IV INJ 20 MG in SYRINGE 3 ML IV SCH (18:15)
[2017-04-14] MEDS: PANTOprazole SOD 40 MG TAB PO SCH (18:35)
[2017-04-14 19:01] VITALS: BP 171/69; PULSE 60; TEMP 36.7; O2SAT 93
[2017-04-14] MEDS: INSULIN ASPART 100 UNITS/ML 3 ML PEN SC SCH (20:50)
[2017-04-14] MEDS: LABETALOL HCL 200 MG TAB PO SCH (21:03)
[2017-04-14] MEDS: ALPRAZOLAM 0.5 MG TAB PO SCH (21:03)
[2017-04-14] MEDS: HEPARIN SOD 5000 UNIT/0.5 ML CARP SQ SCH (21:07)
[2017-04-14] MEDS: INSULIN GLARGINE SOLOSTAR 100 UNITS/ML 3 ML PEN SC SCH (21:08)
[2017-04-14] MEDS: ONDANSETRON INJ 2 MG/ML 2 ML VIAL IV PRN (21:18)
[2017-04-15] VITALS (10 sets, daily range): BP systolic 142–174; BP diastolic 55–67; PULSE 58–72; TEMP 36.7–38.6; O2SAT 62–96
[2017-04-15 04:32] LABS: BASO % 0.2 %; BASO ABS # 0.03 K/uL (0-0.2); EOS % 0.2 %; EOS ABS # 0.02 K/uL (0-0.5); HEMATOCRIT 25.6 % (37-47); HEMOGLOBIN 8.7 g/dL (12.0-16.0); IG# 0.07 K/uL (0.00-0.02); LYMPH % 7.7 %; LYMPH ABS # 0.98 K/uL (1.2-3.4); MEAN CELL VOLUME 91.4 fL (80-100); MEAN CORPUSCULAR HEMOGLOBIN 31.1 pg (25-34); MEAN PLATELET VOLUME 9.3 fL (7.4-10.4); MONO % 14.6 %; MONO ABS # 1.86 K/uL (0.11-0.59); NEUT % 76.8 %; NEUT ABS # 9.77 K/uL (1.4-6.5); PLATELET COUNT 179 K/uL (130-400); RED CELL DISTRIBUTION WIDTH SD 46.5 fL (36.4-46.3); WHITE BLOOD COUNT 12.73 K/uL (4.8-10.8)
[2017-04-15 04:50] LABS: ALBUMIN 2.1 gm/dl (3.4-5.0); CALCIUM 8.1 mg/dl (8.5-10.1); CREATININE 3.41 mg/dl (0.60-1.20)
[2017-04-15 04:54] LABS: PHOSPHORUS 4.5 mg/dl (2.5-4.9); TOTAL PROTEIN 5.5 gm/dl (6.4-8.2)
[2017-04-15] MEDS: ASPIRIN 81 MG ECTAB PO SCH (07:33)
[2017-04-15] MEDS: OMEGA-3 (PURIFIED FISH OIL) 1 GM CAP PO SCH (07:33)
[2017-04-15] MEDS: LABETALOL HCL 200 MG TAB PO SCH ×2 (07:33→19:59)
[2017-04-15] MEDS: ISOSORBIDE MONONITRATE 60 MG TABCR PO SCH (07:33)
[2017-04-15] MEDS: EZETIMIBE 10MG TAB PO SCH (07:34)
[2017-04-15] MEDS: PANTOprazole SOD 40 MG TAB PO SCH (07:34)
[2017-04-15] MEDS: INSULIN ASPART 100 UNITS/ML 3 ML PEN SC SCH ×4 (07:35→21:11)
[2017-04-15] MEDS: HEPARIN SOD 5000 UNIT/0.5 ML CARP SQ SCH ×2 (07:36→20:00)
[2017-04-15] MEDS ORDERED: SPIRONOLACTONE 25 MG TAB PO SCH (09:00)
--- NOTE | 2017-04-15 10:30 | Cardiology Consultation ---
Cardiology Consultation Date of Consultation: Apr 15, 2017. Requesting Physician: Dr. Whittington Reason for Consultation: Elevated troponin Pt evaluation today including: conversation w/ patient, physical exam, lab review, review of studies, review of inpatient medication list History of Present Illness This is a very pleasant 82-year-old woman with a history of coronary artery disease including bypass surgery in the past, hypertension, sick sinus syndrome with a pacemaker and a left atrial mass. She has chronic kidney disease as well as chronic diastolic congestive heart failure. She was hospitalized from 2016 through 04/13/2017. She was only home for a day before returning with nausea and dry heaves for that day. She was noted to have severe hypertension, her troponin was also elevated to 0.36. She was readmitted. At the time of my evaluation she is feeling better, less nausea. She is describing a "shaking" sensation, but is not cold. She is not having any chest discomfort and did not have it prior to admission. She has no palpitations. She tells me she has had some difficulty with leg swelling, but was only home for a day. Past Medical/Surgical History (1) Coronary artery bypass grafting (2) Hysterectomy (3) Implantation of cardiac pacemaker (4) Benign hypertension (5) Diabetes mellitus (6) Hyperlipidemia Family History Patient reports no known family medical history. Social History Smoking Status: Never Smoker History of Alcohol Use: No Review of Systems Constitutional: No fever, No weight loss, No weakness Respiratory: No cough, No wheezing, No shortness of breath, No dyspnea on exertion Cardiac: + edema, No chest pain, No orthopnea, No PND, No palpitations Abdomen: + nausea, + vomiting, No pain, No diarrhea, No GI bleeding Female : No problem reported Neurologic: No paralysis, No weakness, No numbness/tingling, No balance problems Heme: No abnormal bleeding/bruising, No clotting problems Endo: No fatigue Skin: No problem reported All Other Systems: Reviewed and Negative Allergies Coded Allergies: Carbamazepine (Verified Allergy, Intermediate, RASH, 04/14/17) Carvedilol (Verified Allergy, Intermediate, DIZZINESS, VISUAL DISTURBANCES , 04/14/17) Erythromycin (Verified Allergy, Intermediate, RASH, 04/14/17) Statins (Verified Adverse Reaction, Intermediate, MUSCLE ACHES, 04/14/17) Medications Current Inpatient Medications Medications (Trade) Dose Ordered Sig/Haja Route Start Time Stop Time Status Last Admin Dose Admin Alprazolam (Xanax Tab) 0.5 mg HS PO 04/14/17 21:00 05/14/17 20:59 04/14/17 21:03 0.5 MG Aspirin (Ecotrin Tab) 81 mg QAM PO 04/15/17 09:00 05/15/17 08:59 04/15/17 07:33 81 MG EZETIMIBE (Zetia Tab) 10 mg QAM PO 04/15/17 09:00 05/15/17 08:59 04/15/17 07:34 10 MG Hydralazine HCl (Apresoline Tab) 100 mg TID PO 04/14/17 21:00 05/14/17 20:59 04/15/17 07:33 100 MG Isosorbide Mononitrate (Imdur Ext Rel Tab) 60 mg QAM PO 04/15/17 09:00 05/15/17 08:59 04/15/17 07:33 60 MG Labetalol HCl (Normodyne Tab) 200 mg BID PO 04/14/17 21:00 05/14/17 20:59 04/15/17 07:33 200 MG Fish Oil ([place]-3 (Purified Fish Oil) Cap) 1 gm DAILY PO 04/15/17 09:00 05/15/17 08:59 04/15/17 07:33 1 GM Spironolactone (Aldactone Tab) 25 mg QAM PO 04/15/17 09:00 05/15/17 08:59 04/15/17 07:32 25 MG Insulin Glargine (Lantus Solostar Pen) 20 units DAILY@2100 SC 04/14/17 21:00 05/14/17 20:59 04/14/17 21:08 20 UNITS Heparin Sodium (Porcine) (Heparin Sq 5000 Unit/0.5ml) 5,000 unit Q12@0900,2100 SQ 04/14/17 21:00 05/14/17 20:59 04/15/17 07:36 5,000 UNIT Sodium Chloride 1,000 ml @ 50 mls/hr Q20H IV 04/14/17 18:00 05/14/17 17:59 04/14/17 18:15 50 MLS/HR Acetaminophen (Tylenol Tab) 650 mg Q4H PRN PO 04/14/17 16:15 05/14/17 16:14 Magnesium Hydroxide (Milk Of Magnesia Susp) 30 ml Q12H PRN PO 04/14/17 16:15 05/14/17 16:14 Zolpidem Tartrate (Ambien Tab) 5 mg HSZ PRN PO 04/14/17 16:15 05/14/17 16:14 Zolpidem Tartrate (Ambien Tab) 5 mg HSZ PRN PO 04/14/17 16:15 05/14/17 16:14 Ondansetron HCl (Zofran Inj) 4 mg Q6H PRN IV 04/14/17 16:15 05/14/17 16:14 04/14/17 21:18 4 MG Polyethylene (Miralax Powder Packet) 17 gm DAILY PRN PO 04/14/17 16:15 05/14/17 16:14 Insulin Aspart (novoLOG ASPART) SLIDING SCALE If C... ACHS SC 04/14/17 21:00 05/14/17 20:59 Glucose (Glucose 40% Gel) 15-30 GRAMS 15 GRAMS... UD PRN PO 04/14/17 16:15 05/14/17 16:14 Glucose (Glucose Chew Tab) 4-8 Tablets 4 Tabl... UD PRN PO 04/14/17 16:15 05/14/17 16:14 Dextrose (Dextrose 50% 50ML Syringe) 25-50ML OF 50% DW IV FOR... UD PRN IV 04/14/17 16:15 05/14/17 16:14 Glucagon (Glucagon Inj) 1 mg UD PRN SQ 04/14/17 16:15 05/14/17 16:14 Labetalol HCl (Normodyne IV) 20 mg Q6H PRN IV 04/14/17 16:45 05/14/17 16:44 04/14/17 18:13 20 MG Pantoprazole Sodium (Protonix Tab) 40 mg QAM PO 04/14/17 18:00 04/18/17 23:59 04/15/17 07:34 40 MG Al Hydrox/Mg Hydrox/Simethicone (Maalox Max Susp) 15 ml Q6H PRN PO 04/14/17 16:45 05/14/17 16:44 Famotidine 20 mg/ Syringe 5 ml @ 2.5 mls/min DAILY@1800 IV 04/14/17 18:00 05/14/17 17:59 04/14/17 18:15 2.5 MLS/MIN Physical Exam Vital Signs Past 12 Hours Date Time Temp Pulse Resp B/P (MAP) Pulse Ox O2 Delivery O2 Flow Rate FiO2 04/15/17 08:00 95 Room Air 04/15/17 07:34 36.9 62 20 171/66 (101) 62 Room Air 04/15/17 04:00 Room Air 04/15/17 03:45 36.9 60 18 142/65 (90) 96 Room Air 04/15/17 00:10 37.8 59 19 146/64 (91) 93 Room Air 04/15/17 00:00 Room Air Constitutional: Level of Distress: mild distress Psychiatric: Mental Status: active & alert Head: normocephalic Eyes: EOM: EOMI ENMT: normal ENT inspection, hearing grossly normal Neck: supple, no masses Lungs: Respiratory effort: no dyspnea, good air movement Auscultation: breath sounds normal, no wheezing Cardiovascular: Heart Auscultation: RRR, no murmurs, no rubs, no gallops Peripheral Pulses: Bruits: none appreciated Abdomen: Bowel Sounds: normal Inspection & Palpation: soft, no tenderness, guarding & rebound, no masses Musculoskeletal: normal strength (5/5 throughout) Extremities: no edema Neurologic: Cranial Nerves: grossly intact Sensation: grossly intact Data Laboratory Results: Last 24 Hours Test 04/14/17 12:25 04/14/17 17:00 04/14/17 17:26 04/14/17 20:41 White Blood Count 10.25 K/uL Red Blood Count 3.34 M/uL Hemoglobin 10.4 g/dL Hematocrit 29.9 % Mean Corpuscular Volume 89.5 fL Mean Corpuscular Hemoglobin 31.1 pg Mean Corpuscular Hemoglobin Concent 34.8 g/dl Platelet Count 225 K/uL Mean Platelet Volume 9.3 fL Neutrophils (%) (Auto) 82.9 % Lymphocytes (%) (Auto) 4.1 % Monocytes (%) (Auto) 10.0 % Eosinophils (%) (Auto) 1.5 % Basophils (%) (Auto) 0.5 % Neutrophils # (Auto) 8.51 K/uL Lymphocytes # (Auto) 0.42 K/uL Monocytes # (Auto) 1.02 K/uL Eosinophils # (Auto) 0.15 K/uL Basophils # (Auto) 0.05 K/uL RDW Standard Deviation 45.0 fL RDW Coefficient of Variation 13.7 % Immature Granulocyte % (Auto) 1.0 % Immature Granulocyte # (Auto) 0.10 K/uL Sodium Level 137 mmol/L Potassium Level 4.8 mmol/L Chloride Level 107 mmol/L Carbon Dioxide Level 22 mmol/L Anion Gap 8.0 mmol/L Blood Urea Nitrogen 70 mg/dl Creatinine 3.25 mg/dl Est Creatinine Clear Calc Drug Dose 11.3 ml/min Estimated GFR () 14.5 Estimated GFR (Non- 12.5 BUN/Creatinine Ratio 21.6 Random Glucose 83 mg/dl Calcium Level 8.8 mg/dl Total Bilirubin 0.4 mg/dl Aspartate Amino Transf (AST/SGOT) 21 U/L Alanine Aminotransferase (ALT/SGPT) 17 U/L Alkaline Phosphatase 52 U/L Troponin I 0.356 ng/ml Total Protein 6.4 gm/dl Albumin 2.5 gm/dl Globulin 3.9 gm/dl Albumin/Globulin Ratio 0.6 Absolute Reticulocyte Count 0.09 10^6/uL Percent Reticulocyte Count 2.9 % Iron Level 40 mcg/dl Total Iron Binding Capacity 241 mcg/dl Transferrin 188 mg/dl Transferrin % Saturation 15 % Ferritin 291.3 ng/ml Vitamin B12 Level 500 pg/mL Folate 14.91 ng/mL Bedside Glucose 100 mg/dl 150 mg/dl Test 04/14/17 22:29 04/15/17 04:14 04/15/17 06:37 04/15/17 10:08 Total Creatine Kinase 55 U/L 39 U/L Troponin I 0.262 ng/ml 0.252 ng/ml White Blood Count 12.73 K/uL Red Blood Count 2.80 M/uL Hemoglobin 8.7 g/dL Hematocrit 25.6 % Mean Corpuscular Volume 91.4 fL Mean Corpuscular Hemoglobin 31.1 pg Mean Corpuscular Hemoglobin Concent 34.0 g/dl Platelet Count 179 K/uL Mean Platelet Volume 9.3 fL Neutrophils (%) (Auto) 76.8 % Lymphocytes (%) (Auto) 7.7 % Monocytes (%) (Auto) 14.6 % Eosinophils (%) (Auto) 0.2 % Basophils (%) (Auto) 0.2 % Neutrophils # (Auto) 9.77 K/uL Lymphocytes # (Auto) 0.98 K/uL Monocytes # (Auto) 1.86 K/uL Eosinophils # (Auto) 0.02 K/uL Basophils # (Auto) 0.03 K/uL RDW Standard Deviation 46.5 fL RDW Coefficient of Variation 14.0 % Immature Granulocyte % (Auto) 0.5 % Immature Granulocyte # (Auto) 0.07 K/uL Red Blood Cell Morphology Unremarkable Sodium Level 135 mmol/L Potassium Level 5.0 mmol/L Chloride Level 108 mmol/L Carbon Dioxide Level 21 mmol/L Anion Gap 6.0 mmol/L Blood Urea Nitrogen 65 mg/dl Creatinine 3.41 mg/dl Est Creatinine Clear Calc Drug Dose 10.8 ml/min Estimated GFR () 13.7 Estimated GFR (Non- 11.8 BUN/Creatinine Ratio 19.2 Random Glucose 107 mg/dl Lactic Acid Level 0.6 mmol/L Calcium Level 8.1 mg/dl Phosphorus Level 4.5 mg/dl Magnesium Level 2.0 mg/dl Total Bilirubin 0.4 mg/dl Aspartate Amino Transf (AST/SGOT) 11 U/L Alanine Aminotransferase (ALT/SGPT) 14 U/L Alkaline Phosphatase 44 U/L Total Protein 5.5 gm/dl Albumin 2.1 gm/dl Globulin 3.4 gm/dl Albumin/Globulin Ratio 0.6 Triglycerides Level 145 mg/dl Cholesterol Level 156 mg/dl HDL Cholesterol 38 mg/dl LDL Cholesterol, Calculated 89 mg/dl VLDL Cholesterol, Calculated 29 mg/dl Cholesterol/HDL Ratio 4.1 Bedside Glucose 103 mg/dl Imaging: CT scan of her head showed no acute intracranial process. EKG: Her electrocardiogram on admission showed sinus rhythm with intrinsic conduction and a right bundle branch block pattern, one to 2 showed an inferior infarct pattern but this is been known before, the other didn't meet criteria but is not significantly different. Telemetry reviewed: Predominantly atrial pacing and an appropriate heart rate. Assessment & Plan #1. Elevated troponin: This is in a descending pattern, his minimally elevated and is consistent with her known ischemic heart disease, severe hypertension and renal insufficiency. She had no symptoms to suggest angina. I would not pursue this further. #2. Pacemaker: She has a pacemaker, this does occasionally atrially pacing appropriately and there is no indication there is a problem with the pacemaker. I would not evaluated currently. #3. Renal insufficiency: She had worsening of renal function last admission, this admission and is relatively stable compared to last. Presumably related to her hypertension. #4. Coronary disease: She has known coronary artery disease, I don't believe she has symptoms related to it currently and no evidence of acute infarction. Her admission findings are consistent with demand ischemia. Thank you for allowing me to participate in her care.
[2017-04-15] MEDS ORDERED: FUROSEMIDE 20 MG TAB PO ONE (11:14)
--- NOTE | 2017-04-15 12:52 | Nephrology Consultation ---
Nephrology Consultation Date & Providers Date of Consultation: Apr 15, 2017. Primary Care Provider: RV. Noyola MD Referring Provider: Reason for Consultation GUSTAVO, CKD, hypertension History of Present Illness Ms. Dominguez is an 82-year-old female with longstanding DM II, hyperlipidemia, HTN, ASCVD s/p CABG and pacemaker placement, as well as CKD. She has baseline stage 3 CKD with a creatinine of 1.7 - 2.0. 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 Ms. Dominguez was admitted to [facility] from April 05 - April 13. She was admitted for evaluation of acute renal insufficiency, as well as progressive LE edema and hypertensive urgency. Kidney function has worsened in the setting of LISSETH inhibitor and loop diuretic therapy. During her admission, blood pressure was controlled with hydralazine, labetalol and spironolactone. Lower extremity compression stockings were added to assist with lower extremity edema. Blood pressure was slightly increased on the day of discharge and felodipine was added at that time. She was discharged home but unfortunately returned to [facility] yesterday with sudden onset of significant nausea and mild abdominal discomfort. She notes that the symptoms started after she took her medications. She did not take labetalol or other medications with food. She was found to have accelerated hypertension at the time of discharge. Troponin was slightly elevated and cardiology consultation was obtained which was reviewed today. Creatinine has been stable at 3.4. Metabolic profile otherwise acceptable Renal US revealed 10.5 cm kidneys w/ cortical atrophy. Urinalysis was benign. Microscopy revealed granular cast consistent with ATN. Urine protein ~ 7g/d. SPEP/UPEP revealed a small restricted lambda light chain monoclonal spike. Echocardiogram revealed LVEF 65 - 70% w/ mild MR, PASP 35 - 40 mm HG, RA 15 mm HG, dilated IVC and evidence of diastolic dysfunction. 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 At the time of my evaluation this morning, Ms. Dominguez is in a paced rhythm at 60 bpm. She feels well. She denies chest pain. She denies dyspnea. Her son was at the bedside. Ms. Dominguez notes that she continues to have a shakiness in her hands and a resting tremor. This is new. Her son notes that she was very weak at home and he was concerned about her ability to walk and make independent transfers. Nausea and any abdominal or GI symptoms have resolved. Past Medical/Surgical History Medical: # CKD w/ baseline creatinine 1.7 - 2.0 # Microalbuminuria # AODM - insulin requiring, no retinopathy # HTN # Hyperlipidemia - transitioned from fibrate to fish oil therapy due to CKD. 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 Farrell Surgical: # CABG # Pacemaker Allergies Coded Allergies: Carbamazepine (Verified Allergy, Intermediate, RASH, 04/14/17) Carvedilol (Verified Allergy, Intermediate, DIZZINESS, VISUAL DISTURBANCES , 04/14/17) Erythromycin (Verified Allergy, Intermediate, RASH, 04/14/17) Statins (Verified Adverse Reaction, Intermediate, MUSCLE ACHES, 04/14/17) Inpatient Medications Current Inpatient Medications Medications (Trade) Dose Ordered Sig/Haja Route Start Time Stop Time Status Last Admin Dose Admin Alprazolam (Xanax Tab) 0.5 mg HS PO 04/14/17 21:00 05/14/17 20:59 04/14/17 21:03 0.5 MG Aspirin (Ecotrin Tab) 81 mg QAM PO 04/15/17 09:00 05/15/17 08:59 04/15/17 07:33 81 MG EZETIMIBE (Zetia Tab) 10 mg QAM PO 04/15/17 09:00 05/15/17 08:59 04/15/17 07:34 10 MG Hydralazine HCl (Apresoline Tab) 100 mg TID PO 04/14/17 21:00 05/14/17 20:59 04/15/17 07:33 100 MG Isosorbide Mononitrate (Imdur Ext Rel Tab) 60 mg QAM PO 04/15/17 09:00 05/15/17 08:59 04/15/17 07:33 60 MG Labetalol HCl (Normodyne Tab) 200 mg BID PO 04/14/17 21:00 05/14/17 20:59 04/15/17 07:33 200 MG Fish Oil ([place]-3 (Purified Fish Oil) Cap) 1 gm DAILY PO 04/15/17 09:00 05/15/17 08:59 04/15/17 07:33 1 GM Spironolactone (Aldactone Tab) 25 mg QAM PO 04/15/17 09:00 05/15/17 08:59 04/15/17 07:32 25 MG Insulin Glargine (Lantus Solostar Pen) 20 units DAILY@2100 SC 04/14/17 21:00 05/14/17 20:59 04/14/17 21:08 20 UNITS Heparin Sodium (Porcine) (Heparin Sq 5000 Unit/0.5ml) 5,000 unit Q12@0900,2100 SQ 04/14/17 21:00 05/14/17 20:59 04/15/17 07:36 5,000 UNIT Sodium Chloride 1,000 ml @ 50 mls/hr Q20H IV 04/14/17 18:00 05/14/17 17:59 04/14/17 18:15 50 MLS/HR Acetaminophen (Tylenol Tab) 650 mg Q4H PRN PO 04/14/17 16:15 05/14/17 16:14 Magnesium Hydroxide (Milk Of Magnesia Susp) 30 ml Q12H PRN PO 04/14/17 16:15 05/14/17 16:14 Zolpidem Tartrate (Ambien Tab) 5 mg HSZ PRN PO 04/14/17 16:15 05/14/17 16:14 Zolpidem Tartrate (Ambien Tab) 5 mg HSZ PRN PO 04/14/17 16:15 05/14/17 16:14 Ondansetron HCl (Zofran Inj) 4 mg Q6H PRN IV 04/14/17 16:15 05/14/17 16:14 04/14/17 21:18 4 MG Polyethylene (Miralax Powder Packet) 17 gm DAILY PRN PO 04/14/17 16:15 05/14/17 16:14 Insulin Aspart (novoLOG ASPART) SLIDING SCALE If C... ACHS SC 04/14/17 21:00 05/14/17 20:59 04/15/17 12:09 2 UNITS Glucose (Glucose 40% Gel) 15-30 GRAMS 15 GRAMS... UD PRN PO 04/14/17 16:15 05/14/17 16:14 Glucose (Glucose Chew Tab) 4-8 Tablets 4 Tabl... UD PRN PO 04/14/17 16:15 05/14/17 16:14 Dextrose (Dextrose 50% 50ML Syringe) 25-50ML OF 50% DW IV FOR... UD PRN IV 04/14/17 16:15 05/14/17 16:14 Glucagon (Glucagon Inj) 1 mg UD PRN SQ 04/14/17 16:15 05/14/17 16:14 Labetalol HCl (Normodyne IV) 20 mg Q6H PRN IV 04/14/17 16:45 05/14/17 16:44 04/14/17 18:13 20 MG Pantoprazole Sodium (Protonix Tab) 40 mg QAM PO 04/14/17 18:00 04/18/17 23:59 04/15/17 07:34 40 MG Al Hydrox/Mg Hydrox/Simethicone (Maalox Max Susp) 15 ml Q6H PRN PO 04/14/17 16:45 05/14/17 16:44 Famotidine 20 mg/ Syringe 5 ml @ 2.5 mls/min DAILY@1800 IV 04/14/17 18:00 05/14/17 17:59 04/14/17 18:15 2.5 MLS/MIN Furosemide (Lasix Tab) 20 mg QAM PO 04/16/17 09:00 05/16/17 08:59 Family History Patient reports no known family medical history. Social History Smoking Status: Never Smoker Drug Use: none Marital Status: Housing Status: lives with family Occupation: retired Review of Systems A complete review of systems was performed. Pertinent positives are noted above. All other systems are negative. Physical Exam Date Time Temp Pulse Resp B/P (MAP) Pulse Ox O2 Delivery O2 Flow Rate FiO2 04/15/17 11:49 36.7 72 20 174/55 (94) 94 Room Air 04/15/17 08:00 95 Room Air 04/15/17 07:34 36.9 62 20 171/66 (101) 62 Room Air 04/15/17 04:00 Room Air 04/15/17 03:45 36.9 60 18 142/65 (90) 96 Room Air 04/15/17 00:10 37.8 59 19 146/64 (91) 93 Room Air 04/15/17 00:00 Room Air 04/14/17 20:00 Room Air 04/14/17 19:01 36.7 60 18 171/69 (103) 93 Room Air 04/14/17 17:27 37.0 71 16 194/72 (112) 95 Room Air 04/14/17 17:13 36.8 63 18 195/99 95 04/14/17 17:00 95 Room Air 04/14/17 16:35 63 04/14/17 15:15 76 18 195/99 95 Room Air 04/14/17 14:15 76 20 208/68 92 Room Air 04/14/17 13:42 78 20 195/66 94 Room Air 04/14/17 13:31 90 04/14/17 13:24 80 24 193/68 92 Room Air 04/14/17 13:15 74 24 211/67 92 Room Air 04/14/17 13:03 72 20 211/104 92 Room Air 04/14/17 12:44 65 20 227/91 93 Room Air General Appearance: + pertinent finding (well developed, elderly female, no acute distress) Head: normocephalic, atraumatic Eyes: normal inspection, sclerae normal ENT: normal ENT inspection, pharynx normal Neck: supple, no JVD Respiratory/Chest: lungs clear, no respiratory distress, no accessory muscle use Cardiovascular: regular rate, rhythm, no gallop Abdomen/GI: non tender, soft Extremities/Musculoskelatal: normal inspection, + pedal edema (increasing with dependent edema noted in thighs) Neurologic/Psych: alert, normal mood/affect Laboratory Results Last 24 Hours Test 04/14/17 17:00 04/14/17 17:26 04/14/17 20:41 04/14/17 22:29 Absolute Reticulocyte Count 0.09 10^6/uL Percent Reticulocyte Count 2.9 % Iron Level 40 mcg/dl Total Iron Binding Capacity 241 mcg/dl Transferrin 188 mg/dl Transferrin % Saturation 15 % Ferritin 291.3 ng/ml Vitamin B12 Level 500 pg/mL Folate 14.91 ng/mL Bedside Glucose 100 mg/dl 150 mg/dl Total Creatine Kinase 55 U/L Troponin I 0.262 ng/ml Test 04/15/17 04:14 04/15/17 06:37 04/15/17 10:08 04/15/17 10:50 White Blood Count 12.73 K/uL Red Blood Count 2.80 M/uL Hemoglobin 8.7 g/dL Hematocrit 25.6 % Mean Corpuscular Volume 91.4 fL Mean Corpuscular Hemoglobin 31.1 pg Mean Corpuscular Hemoglobin Concent 34.0 g/dl Platelet Count 179 K/uL Mean Platelet Volume 9.3 fL Neutrophils (%) (Auto) 76.8 % Lymphocytes (%) (Auto) 7.7 % Monocytes (%) (Auto) 14.6 % Eosinophils (%) (Auto) 0.2 % Basophils (%) (Auto) 0.2 % Neutrophils # (Auto) 9.77 K/uL Lymphocytes # (Auto) 0.98 K/uL Monocytes # (Auto) 1.86 K/uL Eosinophils # (Auto) 0.02 K/uL Basophils # (Auto) 0.03 K/uL RDW Standard Deviation 46.5 fL RDW Coefficient of Variation 14.0 % Immature Granulocyte % (Auto) 0.5 % Immature Granulocyte # (Auto) 0.07 K/uL Red Blood Cell Morphology Unremarkable Sodium Level 135 mmol/L Potassium Level 5.0 mmol/L Chloride Level 108 mmol/L Carbon Dioxide Level 21 mmol/L Anion Gap 6.0 mmol/L Blood Urea Nitrogen 65 mg/dl Creatinine 3.41 mg/dl Est Creatinine Clear Calc Drug Dose 10.8 ml/min Estimated GFR () 13.7 Estimated GFR (Non- 11.8 BUN/Creatinine Ratio 19.2 Random Glucose 107 mg/dl Lactic Acid Level 0.6 mmol/L Calcium Level 8.1 mg/dl Phosphorus Level 4.5 mg/dl Magnesium Level 2.0 mg/dl Total Bilirubin 0.4 mg/dl Aspartate Amino Transf (AST/SGOT) 11 U/L Alanine Aminotransferase (ALT/SGPT) 14 U/L Alkaline Phosphatase 44 U/L Total Creatine Kinase 39 U/L 44 U/L Troponin I 0.252 ng/ml 0.245 ng/ml Total Protein 5.5 gm/dl Albumin 2.1 gm/dl Globulin 3.4 gm/dl Albumin/Globulin Ratio 0.6 Triglycerides Level 145 mg/dl Cholesterol Level 156 mg/dl HDL Cholesterol 38 mg/dl LDL Cholesterol, Calculated 89 mg/dl VLDL Cholesterol, Calculated 29 mg/dl Cholesterol/HDL Ratio 4.1 Bedside Glucose 103 mg/dl 174 mg/dl Impression (1) Accelerated hypertension (2) Acute renal insufficiency (3) Chronic kidney disease (4) Nausea and vomiting Ms. Dominguez is an 82-year-old female with longstanding DM II, hyperlipidemia, HTN, ASCVD s/p CABG and pacemaker placement, as well as CKD. She has baseline CKD III A3 with a creatinine of 1.7 - 2.0. 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 Urine protein excretion is in excess of 7 grams per day. Based on multiple discussions with Dr. Noyola and me, Nava has expressed that she would consider hemodialysis if indicated. She was admitted with persistent GUSTAVO as well as accelerated hypertension. Recommendations ACUTE KIDNEY INJURY CONSISTENT WITH ATN: -- Creatinine stable -- I reviewed the potential indications for dialysis with the patient and her son today -- Metabolic profile otherwise acceptable -- Renal diet with potassium and sodium restriction -- Monitor renal profile daily CHRONIC KIDNEY DISEASE: -- Baseline creatinine has been 1.7 - 2.0. -- Renal US report 04/05: 10.5 cm kidneys w/ mild cortical atrophy. -- Renal artery doppler was negative for large vessel JASMINE. High resistive indices likely related to small vessel disease and ATN. -- 24 hour urine protein 7.5g. Likely due to diabetic nephropathy and hypertension. PROTEINURIA: -- Patient did not tolerate LISSETH inhibitor due to worsening kidney function. Will avoid LISSETH / ARB. -- Small monoclonal (lambda LC) spike on SPEP/UPEP: this will need to be monitored. Can repeat with outpatient follow up. HYPERTENSION: -- 03/25 Echocardiogram shows moderate to severe LVH c/w longstanding arterial HTN. LVEF 65 - 70% w/ mild MR, pulmonary HTN and elevated right sided pressures. -- Felodipine may have contributed to LE edema. -- Metoprolol changed to Labetalol 200 mg po BID. I suspect labetalol may have contributed to nausea at home when taken without food. -- Continue Isosorbide 60 mg po BID. -- Continue Hydralazine 100 mg po TID. -- She did receive spironolactone 25 mg this morning which she had been discharged on. Renal dysfunction persists and potassium is reasonable. I would like to add or transition to a loop diuretic. She certainly has evidence of increasing TBW on exam. -- Given Furosemide 20 mg PO now. -- Stop NS infusion. EDEMA: -- Low sodium diet. -- Patient is wearing knee high compression stockings whenever OOB. -- Edema is likely reflective of diastolic dysfunction and elevated right sided heart pressure as noted on 03/25 echocardiogram. -- Will start a loop diuretic with goal of achieving a slightly negative fluid balance.
[2017-04-15] MEDS: SODIUM CHLORIDE 0.9% 1000ML 1,000 ML IV SCH (14:36)
[2017-04-15] MEDS ORDERED: NURSING VERBAL MED ORDER ONE (14:45)
[2017-04-15] MEDS: FAMOTIDINE IV INJ 20 MG in SYRINGE 3 ML IV SCH (17:06)
[2017-04-15] MEDS: ONDANSETRON INJ 2 MG/ML 2 ML VIAL IV PRN (19:55)
[2017-04-15] MEDS: ALPRAZOLAM 0.5 MG TAB PO SCH (21:09)
[2017-04-15] MEDS: INSULIN GLARGINE SOLOSTAR 100 UNITS/ML 3 ML PEN SC SCH (21:11)
[2017-04-15] MEDS ORDERED: METOCLOPRAMIDE HCL INJ 5 MG/ML 2 ML VIAL IV PRN (22:00)
--- NOTE | 2017-04-15 22:20 | Progress Note ---
Subjective Date of Service: Apr 15, 2017. Subjective Pt evaluation today including: conversation w/ patient, physical exam 82 yo female who was recently discharged with worsening creatinine and elevated BP. She had been in the hospital for a long period of time and had bP controlled. But when she returned home, developed nausea and dry heaves. She returned to the ER with elevated BP. Patient states that she understands that she may require dialysis as this was discussed in her last hospital stay. Problem List Medical Problems: (1) Acute kidney failure Status: Acute (2) Cholelithiasis Status: Acute (3) Dehydration Status: Acute (4) HTN (hypertension) Status: Acute (5) Hypertensive emergency Status: Acute (6) Influenza Status: Acute (7) Nausea and vomiting Status: Acute (8) Proteinuria Status: Acute Review of Systems Constitutional: No fever, No chills Respiratory: No cough, No sputum Cardiac: No chest pain Abdomen: No pain, No nausea Neurologic: No memory loss, No paralysis Heme: No abnormal bleeding/bruising Endo: No fatigue Skin: No rash, No itch All Other Systems: Reviewed and Negative Medications Current Inpatient Medications Medications (Trade) Dose Ordered Sig/Haja Route Start Time Stop Time Status Last Admin Dose Admin Alprazolam (Xanax Tab) 0.5 mg HS PO 04/14/17 21:00 05/14/17 20:59 04/15/17 21:09 0.5 MG Aspirin (Ecotrin Tab) 81 mg QAM PO 04/15/17 09:00 05/15/17 08:59 04/15/17 07:33 81 MG EZETIMIBE (Zetia Tab) 10 mg QAM PO 04/15/17 09:00 05/15/17 08:59 04/15/17 07:34 10 MG Hydralazine HCl (Apresoline Tab) 100 mg TID PO 04/14/17 21:00 05/14/17 20:59 04/15/17 19:59 100 MG Isosorbide Mononitrate (Imdur Ext Rel Tab) 60 mg QAM PO 04/15/17 09:00 05/15/17 08:59 04/15/17 07:33 60 MG Labetalol HCl (Normodyne Tab) 200 mg BID PO 04/14/17 21:00 05/14/17 20:59 04/15/17 19:59 200 MG Fish Oil ([place]-3 (Purified Fish Oil) Cap) 1 gm DAILY PO 04/15/17 09:00 05/15/17 08:59 04/15/17 07:33 1 GM Insulin Glargine (Lantus Solostar Pen) 20 units DAILY@2100 SC 04/14/17 21:00 05/14/17 20:59 04/15/17 21:11 20 UNITS Heparin Sodium (Porcine) (Heparin Sq 5000 Unit/0.5ml) 5,000 unit Q12@0900,2100 SQ 04/14/17 21:00 05/14/17 20:59 04/15/17 20:00 5,000 UNIT Acetaminophen (Tylenol Tab) 650 mg Q4H PRN PO 04/14/17 16:15 05/14/17 16:14 04/16/17 07:49 650 MG Magnesium Hydroxide (Milk Of Magnesia Susp) 30 ml Q12H PRN PO 04/14/17 16:15 05/14/17 16:14 Zolpidem Tartrate (Ambien Tab) 5 mg HSZ PRN PO 04/14/17 16:15 05/14/17 16:14 04/16/17 00:52 5 MG Zolpidem Tartrate (Ambien Tab) 5 mg HSZ PRN PO 04/14/17 16:15 05/14/17 16:14 Ondansetron HCl (Zofran Inj) 4 mg Q6H PRN IV 04/14/17 16:15 05/14/17 16:14 04/16/17 07:49 4 MG Polyethylene (Miralax Powder Packet) 17 gm DAILY PRN PO 04/14/17 16:15 05/14/17 16:14 Insulin Aspart (novoLOG ASPART) SLIDING SCALE If C... ACHS SC 04/14/17 21:00 05/14/17 20:59 04/15/17 21:11 2 UNITS Glucose (Glucose 40% Gel) 15-30 GRAMS 15 GRAMS... UD PRN PO 04/14/17 16:15 05/14/17 16:14 Glucose (Glucose Chew Tab) 4-8 Tablets 4 Tabl... UD PRN PO 04/14/17 16:15 05/14/17 16:14 Dextrose (Dextrose 50% 50ML Syringe) 25-50ML OF 50% DW IV FOR... UD PRN IV 04/14/17 16:15 05/14/17 16:14 Glucagon (Glucagon Inj) 1 mg UD PRN SQ 04/14/17 16:15 05/14/17 16:14 Labetalol HCl (Normodyne IV) 20 mg Q6H PRN IV 04/14/17 16:45 05/14/17 16:44 04/14/17 18:13 20 MG Pantoprazole Sodium (Protonix Tab) 40 mg QAM PO 04/14/17 18:00 04/18/17 23:59 04/15/17 07:34 40 MG Al Hydrox/Mg Hydrox/Simethicone (Maalox Max Susp) 15 ml Q6H PRN PO 04/14/17 16:45 05/14/17 16:44 04/15/17 21:20 15 ML Famotidine 20 mg/ Syringe 5 ml @ 2.5 mls/min DAILY@1800 IV 04/14/17 18:00 05/14/17 17:59 04/15/17 17:06 2.5 MLS/MIN Furosemide (Lasix Tab) 20 mg QAM PO 04/16/17 09:00 05/16/17 08:59 Metoclopramide HCl (Reglan Inj) 5 mg DAILY PRN IV 04/15/17 22:00 05/15/17 21:59 Ciprofloxacin/ Dextrose 400 mg/ Prmx 200 ml @ 100 mls/hr Q24H IV 04/16/17 02:00 04/21/17 01:59 04/16/17 02:02 100 MLS/HR Ceftriaxone Sodium 1000 mg/ Dextrose 60 ml @ 100 mls/hr DAILY IV 04/16/17 09:00 04/26/17 08:59 UNV Objective Vital Signs Date Time Temp Pulse Resp B/P (MAP) Pulse Ox O2 Delivery O2 Flow Rate FiO2 04/15/17 20:00 Room Air 04/15/17 18:50 37.6 62 20 157/67 (97) 92 Room Air 04/15/17 16:00 95 Room Air 04/15/17 15:27 37.4 58 18 154/62 (92) 92 Room Air 04/15/17 12:00 96 Room Air 04/15/17 11:49 36.7 72 20 174/55 (94) 94 Room Air 04/15/17 08:00 95 Room Air 04/15/17 07:34 36.9 62 20 171/66 (101) 62 Room Air 04/15/17 04:00 Room Air 04/15/17 03:45 36.9 60 18 142/65 (90) 96 Room Air 04/15/17 00:10 37.8 59 19 146/64 (91) 93 Room Air 04/15/17 00:00 Room Air Physical Exam General Appearance: WD/WN, no apparent distress Neck: supple, no adenopathy Respiratory/Chest: chest non-tender, lungs clear Cardiovascular: regular rate, rhythm, + pertinent finding (pedal edema +2) Abdomen: normal bowel sounds, non tender, soft Extremities: normal range of motion Skin: normal color Lymphatic: no adenopathy Laboratory Results Last 24 Hours Test 04/14/17 22:29 04/15/17 04:14 04/15/17 06:37 04/15/17 10:08 Total Creatine Kinase 55 U/L 39 U/L 44 U/L Troponin I 0.262 ng/ml 0.252 ng/ml 0.245 ng/ml White Blood Count 12.73 K/uL Red Blood Count 2.80 M/uL Hemoglobin 8.7 g/dL Hematocrit 25.6 % Mean Corpuscular Volume 91.4 fL Mean Corpuscular Hemoglobin 31.1 pg Mean Corpuscular Hemoglobin Concent 34.0 g/dl Platelet Count 179 K/uL Mean Platelet Volume 9.3 fL Neutrophils (%) (Auto) 76.8 % Lymphocytes (%) (Auto) 7.7 % Monocytes (%) (Auto) 14.6 % Eosinophils (%) (Auto) 0.2 % Basophils (%) (Auto) 0.2 % Neutrophils # (Auto) 9.77 K/uL Lymphocytes # (Auto) 0.98 K/uL Monocytes # (Auto) 1.86 K/uL Eosinophils # (Auto) 0.02 K/uL Basophils # (Auto) 0.03 K/uL RDW Standard Deviation 46.5 fL RDW Coefficient of Variation 14.0 % Immature Granulocyte % (Auto) 0.5 % Immature Granulocyte # (Auto) 0.07 K/uL Red Blood Cell Morphology Unremarkable Sodium Level 135 mmol/L Potassium Level 5.0 mmol/L Chloride Level 108 mmol/L Carbon Dioxide Level 21 mmol/L Anion Gap 6.0 mmol/L Blood Urea Nitrogen 65 mg/dl Creatinine 3.41 mg/dl Est Creatinine Clear Calc Drug Dose 10.8 ml/min Estimated GFR () 13.7 Estimated GFR (Non- 11.8 BUN/Creatinine Ratio 19.2 Random Glucose 107 mg/dl Lactic Acid Level 0.6 mmol/L Calcium Level 8.1 mg/dl Phosphorus Level 4.5 mg/dl Magnesium Level 2.0 mg/dl Total Bilirubin 0.4 mg/dl Aspartate Amino Transf (AST/SGOT) 11 U/L Alanine Aminotransferase (ALT/SGPT) 14 U/L Alkaline Phosphatase 44 U/L Total Protein 5.5 gm/dl Albumin 2.1 gm/dl Globulin 3.4 gm/dl Albumin/Globulin Ratio 0.6 Triglycerides Level 145 mg/dl Cholesterol Level 156 mg/dl HDL Cholesterol 38 mg/dl LDL Cholesterol, Calculated 89 mg/dl VLDL Cholesterol, Calculated 29 mg/dl Cholesterol/HDL Ratio 4.1 Bedside Glucose 103 mg/dl Test 04/15/17 10:50 04/15/17 16:15 04/15/17 16:49 04/15/17 19:48 Bedside Glucose 174 mg/dl 180 mg/dl 196 mg/dl Total Creatine Kinase 40 U/L Troponin I 0.171 ng/ml Assessment and Plan This pt is a marilee 82 yo female with a h/o HTN, CAD, SSS now s/p pacer, chronic diastolic CHF, mild MR, 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 Patient has elevated creatinine above 3 which is significant in a woman of her age and size. Given her symptoms, it is reasonable to consider dialysis. At this point will continue with her medicine and monitor her BP Give loop diuretic as per nephro. Will continue to monitor patient. Urine sodium points toward atn.. -Nephro decided to discontinue lisinopril due to increasing creatinine at last hospital stay -Appreciate Nephro consult Mainttain even fluid balance -avoid nephrotoxins, will renally dose all meds -follow PRP -Nephrology did discuss about vascular access for possible IHD. -- Renal US report 04/05: 10.5 cm kidneys w/ mild cortical atrophy -- Renal artery doppler was negative for large vessel JASMINE. High resistive indices suggest small vessel disease -Will follow-up urine free and lambda light chains as well as immunofixation study in urine and serum as outpatient. Accelerated HTN/HTN/Abnormal ECG- BP 235/85 at highest since admission, BP has improved somewhat since then but continues to remain significantly elevated. It does respond nicely to a dose of IV labetalol, but then had N/V after administration. Remains asymptomatic. ECG with TWIs in lateral leads new from previous, RBBB. Troponin negative, no CP but had SOB on admission which has now resolved. ECHO with normal EF, mild MR, borderline Pulm HTN, stable mass/?myxoma, and grade 1 diastolic dysfunction with mod LVH -continue increased dose hydralazine to 100mg po tid -IV hydralazine prn, IV labetalol prn -continue same bp but held felodipine today. -no further ACEI/ARB should be given -increased isosorbide to 60mg po bid on admission, consider increasing again if blood pressure not coming down spironolactone added, now at 50mg. added loop diuretic. 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 Was intravascularly depleted upon admission. ECHO with normal EF, mild MR, borderline Pulm HTN, stable mass/?myxoma, and grade 1 diastolic dysfunction with mod LVH. Edema improved -Appreciate Nephrology and Cardiology consults -dcd felodipine in case of adverse side effect -Continue compression stockings -low sodium diet, daily weights, dietary consult -no surgery opted in the past for myxoma CAD, status post CABG in 1992, but no details available/Sick sinus syndrome, status post dual-chamber pacemaker implantation on 10/29/2008 followed by EP. -remains always paced on tele, review of outpt records shows pacer functioning well and 100% atrial paced in 12/[address] Farrell -continue Zetia, is intolerant to statins -continue ASA DMII-controlled, on senior living insulin. HgbA1C here 7.1% -continue Lantus and SSI, accuchecks Hypertriglyceridemia-was > 1000 in the past. Recently switched from fenofibrate to fish oil due to renal failure -continue Zetia here -restart fish oil on discharge Left sided sciatica, lower back pain-ongoing for several months, with h/o falls -tylenol prn pain, voltaren gel ok as minimal systemic absorption -PT/OT consults Proph-YASMANY mancia,heparin SQ
[2017-04-16] VITALS (10 sets, daily range): BP systolic 100–135; BP diastolic 52–79; PULSE 59–64; TEMP 36.4–37.3; O2SAT 93–98
[2017-04-16] MEDS: ACETAMINOPHEN 325 MG TAB PO PRN ×2 (00:53→07:49)
[2017-04-16 01:21] LABS: INFLUENZA A PCR Neg for Influ A (NEG); INFLUENZA B PCR Neg for Influ B (NEG)
[2017-04-16] MEDS ORDERED: CIPROFLOXACIN / D5W 400 MG in PREMIXED IN D5W 200 ML IV SCH (02:00)
[2017-04-16] MEDS: INSULIN ASPART 100 UNITS/ML 3 ML PEN SC SCH ×4 (07:00→20:18)
[2017-04-16] MEDS: ONDANSETRON INJ 2 MG/ML 2 ML VIAL IV PRN (07:49)
[2017-04-16 08:29] LABS: BASO % 0.3 %; BASO ABS # 0.03 K/uL (0-0.2); EOS % 0.6 %; EOS ABS # 0.06 K/uL (0-0.5); HEMATOCRIT 24.9 % (37-47); HEMOGLOBIN 8.3 g/dL (12.0-16.0); IG# 0.08 K/uL (0.00-0.02); LYMPH % 5.5 %; LYMPH ABS # 0.59 K/uL (1.2-3.4); MEAN CELL VOLUME 91.5 fL (80-100); MEAN CORPUSCULAR HEMOGLOBIN 30.5 pg (25-34); MEAN PLATELET VOLUME 9.8 fL (7.4-10.4); MONO % 8.3 %; NEUT % 84.6 %; NEUT ABS # 9.16 K/uL (1.4-6.5); PLATELET COUNT 180 K/uL (130-400); RED CELL DISTRIBUTION WIDTH CV 13.9 % (11.5-14.5); RED CELL DISTRIBUTION WIDTH SD 46.3 fL (36.4-46.3); WHITE BLOOD COUNT 10.82 K/uL (4.8-10.8)
[2017-04-16 08:32] LABS: MEAN CORPUSCULAR HGB CONC 33.3 g/dl (32-36)
[2017-04-16 08:35] LABS: CREATININE 4.16 mg/dl (0.60-1.20)
[2017-04-16 08:36] LABS: CALCIUM 8.7 mg/dl (8.5-10.1); POTASSIUM 5.1 mmol/L (3.5-5.1)
[2017-04-16] MEDS: CEFTRIAXONE SOD INJ 1,000 MG in DEXTROSE 5% 50ML 50 ML IV SCH (08:44)
[2017-04-16] MEDS ORDERED: MEPERIDINE HCL 25 MG/ML CARP IV PRN (09:30)
[2017-04-16] MEDS: ASPIRIN 81 MG ECTAB PO SCH (11:01)
[2017-04-16] MEDS: FUROSEMIDE 20 MG TAB PO SCH (11:01)
[2017-04-16] MEDS: OMEGA-3 (PURIFIED FISH OIL) 1 GM CAP PO SCH (11:02)
[2017-04-16] MEDS: LABETALOL HCL 200 MG TAB PO SCH ×2 (11:02→20:15)
[2017-04-16] MEDS: ISOSORBIDE MONONITRATE 60 MG TABCR PO SCH (11:02)
[2017-04-16] MEDS: EZETIMIBE 10MG TAB PO SCH (11:02)
[2017-04-16] MEDS: PANTOprazole SOD 40 MG TAB PO SCH (11:04)
[2017-04-16] MEDS: HEPARIN SOD 5000 UNIT/0.5 ML CARP SQ SCH ×2 (11:05→20:17)
--- NOTE | 2017-04-16 12:05 | Nephrology Progress Note ---
Nephrology Progress Note Date of Service Apr 16, 2017. Chief Complaint F/U for GUSTAVO Subjective Nava was seen and examined in her room this am. Overall she feels poorly, has been having fever and SOB. Renal function worsened, Cr 4.2. BP relatively stable. UO unmeasured. Review of Systems A complete review of systems was performed. Pertinent positives are noted above. All other systems are negative. Vital Signs Last 8 Hrs Date Time Temp Pulse Resp B/P (MAP) Pulse Ox O2 Delivery O2 Flow Rate FiO2 04/16/17 07:55 36.8 61 18 106/79 (88) 93 Room Air 04/16/17 04:00 Room Air 04/16/17 03:29 36.9 60 16 135/52 (79) 94 Room Air Last Recorded Weight Weight (Kilograms): 72.400 Physical Exam GENERAL: elderly female, AAA x 3, ill-appearing, febrile, in mild to moderate distress. NECK: Supple, no JVD. RESPIRATORY: Normal breathing efforts, no accessory muscle use, clear to auscultation bilaterally, no wheezes or rales. CARDIOVASCULAR: S1, S2 normal, rate rhythm regular. EXTREMITY: No lower extremity edema NEURO: speech fluent. PSYCHIATRY: Normal mood and judgment Family History Patient reports no known family medical history. Social History Smoking Status: Never smoker Drug Use: none Marital Status: Housing Status: lives with family Occupation: retired Laboratory Results Past 24 Hours 04/16/17 05:19 Red Blood Count 2.72, Mean Corpuscular Volume 91.5, Mean Corpuscular Hemoglobin 30.5, Mean Corpuscular Hemoglobin Concent 33.3, Mean Platelet Volume 9.8, Neutrophils (%) (Auto) 84.6, Lymphocytes (%) (Auto) 5.5, Monocytes (%) (Auto) 8.3, Eosinophils (%) (Auto) 0.6, Basophils (%) (Auto) 0.3, Neutrophils # (Auto) 9.16, Lymphocytes # (Auto) 0.59, Monocytes # (Auto) 0.90, Eosinophils # (Auto) 0.06, Basophils # (Auto) 0.03 04/16/17 08:00 Test 04/15/17 16:15 04/15/17 16:49 04/15/17 19:48 04/15/17 23:27 Bedside Glucose 180 mg/dl (70-90) 196 mg/dl (70-90) 166 mg/dl (70-90) Total Creatine Kinase 40 U/L (26-192) Troponin I 0.171 ng/ml (0-0.045) Test 04/15/17 23:55 04/16/17 00:41 04/16/17 05:19 04/16/17 06:30 Influenza Type A (RT-PCR) Neg for Influ A (NEG) Influenza Type B (RT-PCR) Neg for Influ B (NEG) Urine Color YELLOW Urine Appearance TURBID (CLEAR) Urine pH 5.0 (4.5-7.5) Urine Specific [place] 1.019 (1.000-1.030) Urine Protein 3+ (NEG) Urine Glucose (UA) NEG (NEG) Urine Ketones NEG (NEG) Urine Occult Blood NEG (NEG) Urine Nitrite NEG (NEG) Urine Bilirubin NEG (NEG) Urine Urobilinogen NEG (NEG) Urine Leukocyte Esterase LARGE (NEG) Urine WBC (Auto) >30 /hpf (0-5) Urine RBC (Auto) 0-4 /hpf (0-4) Urine Hyaline Casts (Auto) 1-5 /lpf (0-5) Urine Epithelial Cells (Auto) >30 /lpf (0-5) Urine Bacteria (Auto) 4+ (NEG) White Blood Count 10.82 K/uL (4.8-10.8) Red Blood Count 2.72 M/uL (4.2-5.4) Hemoglobin 8.3 g/dL (12.0-16.0) Hematocrit 24.9 % (37-47) Mean Corpuscular Volume 91.5 fL (80-100) Mean Corpuscular Hemoglobin 30.5 pg (25-34) Mean Corpuscular Hemoglobin Concent 33.3 g/dl (32-36) Platelet Count 180 K/uL (130-400) Mean Platelet Volume 9.8 fL (7.4-10.4) Neutrophils (%) (Auto) 84.6 % Lymphocytes (%) (Auto) 5.5 % Monocytes (%) (Auto) 8.3 % Eosinophils (%) (Auto) 0.6 % Basophils (%) (Auto) 0.3 % Neutrophils # (Auto) 9.16 K/uL (1.4-6.5) Lymphocytes # (Auto) 0.59 K/uL (1.2-3.4) Monocytes # (Auto) 0.90 K/uL (0.11-0.59) Eosinophils # (Auto) 0.06 K/uL (0-0.5) Basophils # (Auto) 0.03 K/uL (0-0.2) RDW Standard Deviation 46.3 fL (36.4-46.3) RDW Coefficient of Variation 13.9 % (11.5-14.5) Immature Granulocyte % (Auto) 0.7 % Immature Granulocyte # (Auto) 0.08 K/uL (0.00-0.02) Red Blood Cell Morphology Unremarkable Bedside Glucose 125 mg/dl (70-90) Test 04/16/17 08:00 Anion Gap 10.0 mmol/L (3-11) Est Creatinine Clear Calc Drug Dose 8.7 ml/min Estimated GFR () 10.8 Estimated GFR (Non- 9.3 BUN/Creatinine Ratio 17.5 (10-20) Calcium Level 8.7 mg/dl (8.5-10.1) Allergies Coded Allergies: Carbamazepine (Verified Allergy, Intermediate, RASH, 04/14/17) Carvedilol (Verified Allergy, Intermediate, DIZZINESS, VISUAL DISTURBANCES , 04/14/17) Erythromycin (Verified Allergy, Intermediate, RASH, 04/14/17) Statins (Verified Adverse Reaction, Intermediate, MUSCLE ACHES, 04/14/17) Medications Current Inpatient Medications Medications (Trade) Dose Ordered Sig/Haja Route Start Time Stop Time Status Last Admin Dose Admin Alprazolam (Xanax Tab) 0.5 mg HS PO 04/14/17 21:00 05/14/17 20:59 04/15/17 21:09 0.5 MG Aspirin (Ecotrin Tab) 81 mg QAM PO 04/15/17 09:00 05/15/17 08:59 04/15/17 07:33 81 MG EZETIMIBE (Zetia Tab) 10 mg QAM PO 04/15/17 09:00 05/15/17 08:59 04/15/17 07:34 10 MG Hydralazine HCl (Apresoline Tab) 100 mg TID PO 04/14/17 21:00 05/14/17 20:59 04/15/17 19:59 100 MG Isosorbide Mononitrate (Imdur Ext Rel Tab) 60 mg QAM PO 04/15/17 09:00 05/15/17 08:59 04/15/17 07:33 60 MG Labetalol HCl (Normodyne Tab) 200 mg BID PO 04/14/17 21:00 05/14/17 20:59 04/15/17 19:59 200 MG Fish Oil ([place]-3 (Purified Fish Oil) Cap) 1 gm DAILY PO 04/15/17 09:00 05/15/17 08:59 04/15/17 07:33 1 GM Insulin Glargine (Lantus Solostar Pen) 20 units DAILY@2100 SC 04/14/17 21:00 05/14/17 20:59 04/15/17 21:11 20 UNITS Heparin Sodium (Porcine) (Heparin Sq 5000 Unit/0.5ml) 5,000 unit Q12@0900,2100 SQ 04/14/17 21:00 05/14/17 20:59 04/15/17 20:00 5,000 UNIT Acetaminophen (Tylenol Tab) 650 mg Q4H PRN PO 04/14/17 16:15 05/14/17 16:14 04/16/17 07:49 650 MG Magnesium Hydroxide (Milk Of Magnesia Susp) 30 ml Q12H PRN PO 04/14/17 16:15 05/14/17 16:14 Zolpidem Tartrate (Ambien Tab) 5 mg HSZ PRN PO 04/14/17 16:15 05/14/17 16:14 04/16/17 00:52 5 MG Zolpidem Tartrate (Ambien Tab) 5 mg HSZ PRN PO 04/14/17 16:15 05/14/17 16:14 Ondansetron HCl (Zofran Inj) 4 mg Q6H PRN IV 04/14/17 16:15 05/14/17 16:14 04/16/17 07:49 4 MG Polyethylene (Miralax Powder Packet) 17 gm DAILY PRN PO 04/14/17 16:15 05/14/17 16:14 Insulin Aspart (novoLOG ASPART) SLIDING SCALE If C... ACHS SC 04/14/17 21:00 05/14/17 20:59 04/15/17 21:11 2 UNITS Glucose (Glucose 40% Gel) 15-30 GRAMS 15 GRAMS... UD PRN PO 04/14/17 16:15 05/14/17 16:14 Glucose (Glucose Chew Tab) 4-8 Tablets 4 Tabl... UD PRN PO 04/14/17 16:15 05/14/17 16:14 Dextrose (Dextrose 50% 50ML Syringe) 25-50ML OF 50% DW IV FOR... UD PRN IV 04/14/17 16:15 05/14/17 16:14 Glucagon (Glucagon Inj) 1 mg UD PRN SQ 04/14/17 16:15 05/14/17 16:14 Labetalol HCl (Normodyne IV) 20 mg Q6H PRN IV 04/14/17 16:45 05/14/17 16:44 04/14/17 18:13 20 MG Pantoprazole Sodium (Protonix Tab) 40 mg QAM PO 04/14/17 18:00 04/18/17 23:59 04/15/17 07:34 40 MG Al Hydrox/Mg Hydrox/Simethicone (Maalox Max Susp) 15 ml Q6H PRN PO 04/14/17 16:45 05/14/17 16:44 04/15/17 21:20 15 ML Famotidine 20 mg/ Syringe 5 ml @ 2.5 mls/min DAILY@1800 IV 04/14/17 18:00 05/14/17 17:59 04/15/17 17:06 2.5 MLS/MIN Furosemide (Lasix Tab) 20 mg QAM PO 04/16/17 09:00 05/16/17 08:59 Metoclopramide HCl (Reglan Inj) 5 mg DAILY PRN IV 04/15/17 22:00 05/15/17 21:59 Ceftriaxone Sodium 1000 mg/ Dextrose 60 ml @ 100 mls/hr Q24H IV 04/16/17 08:00 04/26/17 07:59 04/16/17 08:44 100 MLS/HR Meperidine HCl (Demerol Inj) 25 mg Q8 PRN IV 04/16/17 09:30 04/30/17 09:29 Impression (1) Accelerated hypertension (2) Acute renal insufficiency (3) Chronic kidney disease (4) Nausea and vomiting Ms. Dominguez is an 82-year-old female with longstanding DM II, hyperlipidemia, HTN, ASCVD s/p CABG and pacemaker placement, as well as CKD. She has baseline CKD III A3 with a creatinine of 1.7 - 2.0. 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 Urine protein excretion is in excess of 7 grams per day. Based on multiple discussions with Dr. Noyola and me, Nava has expressed that she would consider hemodialysis if indicated. She was admitted with persistent GUSTAVO as well as accelerated hypertension. Renal US report 04/05: 10.5 cm kidneys w/ mild cortical atrophy, Renal artery doppler was negative for large vessel JASMINE. High resistive indices likely related to small vessel disease and ATN. 24 hour urine protein 7.5g. Likely due to diabetic nephropathy and hypertension, Patient did not tolerate LISSETH inhibitor due to worsening kidney function. Will avoid LISSETH / ARB. 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 Can repeat with outpatient follow up. Recommendations -- renal function worsening, Creatinine 4.2, unclear etiology, ? ATN ( baseline creatinine has been 1.7 - 2.0) -- medina catheter for accurate I's and O's -- okay to continue on Lasix 20 milligram IV for now, may need to increase dose if urine output low -- discussed briefly about dialysis with the patient and pt agreeable if needed -- Metabolic profile otherwise acceptable for now -- continue on Renal diet with potassium and sodium restriction -- Monitor renal profile daily
--- NOTE | 2017-04-16 12:36 | Progress Note ---
Subjective Date of Service: Apr 16, 2017. Subjective Pt evaluation today including: conversation w/ patient, physical exam, lab review, conversation w/ accounting policy consultant, review of inpatient medication list Pain: denies pain PO Intake: poor, nauseated Voiding: medina catheter in place patient with rigors this AM, febrile overnight, more nauseated felt short of breath, no hypoxia, oxygen placed by RN and she felt better reviewed labs, Cr up to 4.2, unclear etiology, K is rising at 5.1 but still in normal range urinalysis with >30 WBC Problem List Medical Problems: (1) Acute kidney failure Status: Acute (2) Cholelithiasis Status: Acute (3) Dehydration Status: Acute (4) HTN (hypertension) Status: Acute (5) Hypertensive emergency Status: Acute (6) Influenza Status: Acute (7) Nausea and vomiting Status: Acute (8) Proteinuria Status: Acute Review of Systems Constitutional: + weakness, + fatigue, + problem reported (rigors) Respiratory: + shortness of breath Abdomen: + nausea, + problem reported (poor appetite) Neurologic: + weakness All Other Systems: Reviewed and Negative Medications Current Inpatient Medications Medications (Trade) Dose Ordered Sig/Haja Route Start Time Stop Time Status Last Admin Dose Admin Alprazolam (Xanax Tab) 0.5 mg HS PO 04/14/17 21:00 05/14/17 20:59 04/15/17 21:09 0.5 MG Aspirin (Ecotrin Tab) 81 mg QAM PO 04/15/17 09:00 05/15/17 08:59 04/16/17 11:01 81 MG EZETIMIBE (Zetia Tab) 10 mg QAM PO 04/15/17 09:00 05/15/17 08:59 04/16/17 11:02 10 MG Hydralazine HCl (Apresoline Tab) 100 mg TID PO 04/14/17 21:00 05/14/17 20:59 04/16/17 11:03 100 MG Isosorbide Mononitrate (Imdur Ext Rel Tab) 60 mg QAM PO 04/15/17 09:00 05/15/17 08:59 04/16/17 11:02 60 MG Labetalol HCl (Normodyne Tab) 200 mg BID PO 04/14/17 21:00 05/14/17 20:59 04/16/17 11:02 200 MG Fish Oil ([place]-3 (Purified Fish Oil) Cap) 1 gm DAILY PO 04/15/17 09:00 05/15/17 08:59 04/16/17 11:02 1 GM Insulin Glargine (Lantus Solostar Pen) 20 units DAILY@2100 SC 04/14/17 21:00 05/14/17 20:59 04/15/17 21:11 20 UNITS Heparin Sodium (Porcine) (Heparin Sq 5000 Unit/0.5ml) 5,000 unit Q12@0900,2100 SQ 04/14/17 21:00 05/14/17 20:59 04/16/17 11:05 5,000 UNIT Acetaminophen (Tylenol Tab) 650 mg Q4H PRN PO 04/14/17 16:15 05/14/17 16:14 04/16/17 07:49 650 MG Magnesium Hydroxide (Milk Of Magnesia Susp) 30 ml Q12H PRN PO 04/14/17 16:15 05/14/17 16:14 Zolpidem Tartrate (Ambien Tab) 5 mg HSZ PRN PO 04/14/17 16:15 05/14/17 16:14 04/16/17 00:52 5 MG Zolpidem Tartrate (Ambien Tab) 5 mg HSZ PRN PO 04/14/17 16:15 05/14/17 16:14 Ondansetron HCl (Zofran Inj) 4 mg Q6H PRN IV 04/14/17 16:15 05/14/17 16:14 04/16/17 07:49 4 MG Polyethylene (Miralax Powder Packet) 17 gm DAILY PRN PO 04/14/17 16:15 05/14/17 16:14 Insulin Aspart (novoLOG ASPART) SLIDING SCALE If C... ACHS SC 04/14/17 21:00 05/14/17 20:59 04/15/17 21:11 2 UNITS Glucose (Glucose 40% Gel) 15-30 GRAMS 15 GRAMS... UD PRN PO 04/14/17 16:15 05/14/17 16:14 Glucose (Glucose Chew Tab) 4-8 Tablets 4 Tabl... UD PRN PO 04/14/17 16:15 05/14/17 16:14 Dextrose (Dextrose 50% 50ML Syringe) 25-50ML OF 50% DW IV FOR... UD PRN IV 04/14/17 16:15 05/14/17 16:14 Glucagon (Glucagon Inj) 1 mg UD PRN SQ 04/14/17 16:15 05/14/17 16:14 Labetalol HCl (Normodyne IV) 20 mg Q6H PRN IV 04/14/17 16:45 05/14/17 16:44 04/14/17 18:13 20 MG Pantoprazole Sodium (Protonix Tab) 40 mg QAM PO 04/14/17 18:00 04/18/17 23:59 04/16/17 11:04 40 MG Al Hydrox/Mg Hydrox/Simethicone (Maalox Max Susp) 15 ml Q6H PRN PO 04/14/17 16:45 05/14/17 16:44 04/15/17 21:20 15 ML Famotidine 20 mg/ Syringe 5 ml @ 2.5 mls/min DAILY@1800 IV 04/14/17 18:00 05/14/17 17:59 04/15/17 17:06 2.5 MLS/MIN Furosemide (Lasix Tab) 20 mg QAM PO 04/16/17 09:00 05/16/17 08:59 04/16/17 11:01 20 MG Metoclopramide HCl (Reglan Inj) 5 mg DAILY PRN IV 04/15/17 22:00 05/15/17 21:59 Ceftriaxone Sodium 1000 mg/ Dextrose 60 ml @ 100 mls/hr Q24H IV 04/16/17 08:00 04/26/17 07:59 04/16/17 08:44 100 MLS/HR Meperidine HCl (Demerol Inj) 25 mg Q8 PRN IV 04/16/17 09:30 04/30/17 09:29 Objective Vital Signs Date Time Temp Pulse Resp B/P (MAP) Pulse Ox O2 Delivery O2 Flow Rate FiO2 04/16/17 12:00 95 Nasal Cannula 2.0 04/16/17 11:07 37.0 64 17 131/63 (85) 96 Nasal Cannula 2.0 04/16/17 08:00 93 Room Air 04/16/17 07:55 36.8 61 18 106/79 (88) 93 Room Air 04/16/17 04:00 Room Air 04/16/17 03:29 36.9 60 16 135/52 (79) 94 Room Air 04/16/17 00:13 37.3 04/16/17 00:00 Room Air 04/15/17 23:18 38.6 63 20 151/61 (91) 92 Room Air 04/15/17 20:00 Room Air 04/15/17 18:50 37.6 62 20 157/67 (97) 92 Room Air 04/15/17 16:00 95 Room Air 04/15/17 15:27 37.4 58 18 154/62 (92) 92 Room Air Physical Exam General Appearance: WD/WN, no apparent distress Eyes: normal inspection, EOMI, sclerae normal ENT: normal ENT inspection, hearing grossly normal, pharynx normal Neck: supple, no adenopathy, no JVD, trachea midline Respiratory/Chest: chest non-tender, lungs clear, no respiratory distress, no accessory muscle use, + decreased breath sounds Cardiovascular: regular rate, rhythm, no edema, no gallop, no JVD, no murmur Abdomen: normal bowel sounds, non tender, soft, no organomegaly Extremities: normal range of motion, non-tender, normal inspection, no pedal edema, pelvis stable Neurologic/Psychiatric: material coordinator II-XII nml as tested, alert, normal mood/affect, oriented x 3, + motor weakness Skin: normal color, warm/dry, no rash Laboratory Results Last 24 Hours Test 04/15/17 16:15 04/15/17 16:49 04/15/17 19:48 04/15/17 23:27 Bedside Glucose 180 mg/dl 196 mg/dl 166 mg/dl Total Creatine Kinase 40 U/L Troponin I 0.171 ng/ml Test 04/15/17 23:55 04/16/17 00:41 04/16/17 05:19 04/16/17 06:30 Influenza Type A (RT-PCR) Neg for Influ A Influenza Type B (RT-PCR) Neg for Influ B Urine Color YELLOW Urine Appearance TURBID Urine pH 5.0 Urine Specific [place] 1.019 Urine Protein 3+ Urine Glucose (UA) NEG Urine Ketones NEG Urine Occult Blood NEG Urine Nitrite NEG Urine Bilirubin NEG Urine Urobilinogen NEG Urine Leukocyte Esterase LARGE Urine WBC (Auto) >30 /hpf Urine RBC (Auto) 0-4 /hpf Urine Hyaline Casts (Auto) 1-5 /lpf Urine Epithelial Cells (Auto) >30 /lpf Urine Bacteria (Auto) 4+ White Blood Count 10.82 K/uL Red Blood Count 2.72 M/uL Hemoglobin 8.3 g/dL Hematocrit 24.9 % Mean Corpuscular Volume 91.5 fL Mean Corpuscular Hemoglobin 30.5 pg Mean Corpuscular Hemoglobin Concent 33.3 g/dl Platelet Count 180 K/uL Mean Platelet Volume 9.8 fL Neutrophils (%) (Auto) 84.6 % Lymphocytes (%) (Auto) 5.5 % Monocytes (%) (Auto) 8.3 % Eosinophils (%) (Auto) 0.6 % Basophils (%) (Auto) 0.3 % Neutrophils # (Auto) 9.16 K/uL Lymphocytes # (Auto) 0.59 K/uL Monocytes # (Auto) 0.90 K/uL Eosinophils # (Auto) 0.06 K/uL Basophils # (Auto) 0.03 K/uL RDW Standard Deviation 46.3 fL RDW Coefficient of Variation 13.9 % Immature Granulocyte % (Auto) 0.7 % Immature Granulocyte # (Auto) 0.08 K/uL Red Blood Cell Morphology Unremarkable Bedside Glucose 125 mg/dl Test 04/16/17 08:00 04/16/17 11:33 Sodium Level 135 mmol/L Potassium Level 5.1 mmol/L Chloride Level 104 mmol/L Carbon Dioxide Level 21 mmol/L Anion Gap 10.0 mmol/L Blood Urea Nitrogen 73 mg/dl Creatinine 4.16 mg/dl Est Creatinine Clear Calc Drug Dose 8.7 ml/min Estimated GFR () 10.8 Estimated GFR (Non- 9.3 BUN/Creatinine Ratio 17.5 Random Glucose 91 mg/dl Calcium Level 8.7 mg/dl Bedside Glucose 91 mg/dl Assessment and Plan This pt is a marilee 82 yo female with a h/o HTN, CAD, SSS now s/p pacer, chronic diastolic CHF, mild MR, 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 Cr up to 4.2 today, BUN 70's, feeling some uremic symptoms with nausea open to HD if needed medina placed for accurate urine output (she is incontinent) K is 5.1 check BMP at 1400 today to make sure K not rising further give Lasix 20mg x 1 but likely will need higher dose for urine output discussed case with Dr. Mijares at the bedside - UTI with bacteremia, sepsis, POA febrile last night, gave dose of Cipro and UA sent, shows bacteria and >30 WBC start Rocephin preliminary blood culture report is both sets positive for gram negative bacilli WBC going down - HTN emergency: resolved, BP actually low normal now, holding anti- hypertensives Labetalol may have been contributing to nausea? or perhaps it was just uremia - ECG with TWIs in lateral leads new from previous, RBBB. Troponin minimally elevated (could be due to GUSTAVO), no chest pain ECHO with normal EF, mild MR, borderline Pulm HTN, stable mass/?myxoma, and grade 1 diastolic dysfunction with mod LV - Chronic diastolic HF: examines euvolemic currently CAD, status post CABG in 1992, but no details available/Sick sinus syndrome, status post dual-chamber pacemaker implantation on 10/29/2008 followed by EP. -remains always paced on tele, review of outpt records shows pacer functioning well and 100% atrial paced in 12/[address] Farrell -continue Zetia, is intolerant to statins -continue ASA DMII-controlled, on halfway insulin. HgbA1C here 7.1% -continue Lantus and SSI, accuchecks Hypertriglyceridemia-was > 1000 in the past. Recently switched from fenofibrate to fish oil due to renal failure -continue Zetia here -restart fish oil on discharge Left sided sciatica, lower back pain-ongoing for several months, with h/o falls -tylenol prn pain, voltaren gel ok as minimal systemic absorption -PT/OT consults Proph-YASMANY hose,heparin SQ Plan: keep on tele, close monitoring of vitals, repeat BMP at 1400 today
[2017-04-16 14:38] LABS: CREATININE 4.25 mg/dl (0.60-1.20); POTASSIUM 4.8 mmol/L (3.5-5.1)
[2017-04-16] MEDS: FAMOTIDINE IV INJ 20 MG in SYRINGE 3 ML IV SCH (18:41)
[2017-04-16] MEDS: ALPRAZOLAM 0.5 MG TAB PO SCH ×2 (20:15→21:23)
[2017-04-16] MEDS: INSULIN GLARGINE SOLOSTAR 100 UNITS/ML 3 ML PEN SC SCH (20:18)
[2017-04-17] VITALS (7 sets, daily range): BP systolic 135–157; BP diastolic 58–65; PULSE 60–91; TEMP 36.5–36.8; O2SAT 97–98
[2017-04-17 06:07] LABS: HEMATOCRIT 23.4 % (37-47); HEMOGLOBIN 7.9 g/dL (12.0-16.0); MEAN CELL VOLUME 90.7 fL (80-100); MEAN CORPUSCULAR HEMOGLOBIN 30.6 pg (25-34); MEAN CORPUSCULAR HGB CONC 33.8 g/dl (32-36); MEAN PLATELET VOLUME 9.2 fL (7.4-10.4); PLATELET COUNT 164 K/uL (130-400); RED CELL DISTRIBUTION WIDTH CV 13.8 % (11.5-14.5); RED CELL DISTRIBUTION WIDTH SD 46.3 fL (36.4-46.3); WHITE BLOOD COUNT 14.62 K/uL (4.8-10.8)
[2017-04-17 07:03] LABS: CREATININE 4.69 mg/dl (0.60-1.20)
[2017-04-17] MEDS: CEFTRIAXONE SOD INJ 1,000 MG in DEXTROSE 5% 50ML 50 ML IV SCH (08:54)
[2017-04-17] MEDS: ASPIRIN 81 MG ECTAB PO SCH (08:54)
[2017-04-17] MEDS: ISOSORBIDE MONONITRATE 60 MG TABCR PO SCH (08:55)
[2017-04-17] MEDS: FUROSEMIDE 20 MG TAB PO SCH (08:55)
[2017-04-17] MEDS: OMEGA-3 (PURIFIED FISH OIL) 1 GM CAP PO SCH (08:55)
[2017-04-17] MEDS: PANTOprazole SOD 40 MG TAB PO SCH (08:55)
[2017-04-17] MEDS: LABETALOL HCL 200 MG TAB PO SCH ×2 (08:55→20:53)
[2017-04-17] MEDS: EZETIMIBE 10MG TAB PO SCH (08:56)
[2017-04-17] MEDS: INSULIN ASPART 100 UNITS/ML 3 ML PEN SC SCH ×4 (08:57→21:02)
[2017-04-17] MEDS: HEPARIN SOD 5000 UNIT/0.5 ML CARP SQ SCH ×2 (08:58→21:03)
[2017-04-17] MEDS ORDERED: FUROSEMIDE 20 MG TAB PO ONE (10:30)
--- NOTE | 2017-04-17 11:48 | Nephrology Progress Note ---
Nephrology Progress Note Date of Service Apr 17, 2017. Chief Complaint F/U for GUSTAVO Subjective Nava Was seen and examined in her room this morning. Overall she is looking better and mentioned that she is feeling better than yesterday. Denies any shortness of breath or chest pain. Urine output slightly improved however renal function continues to worsen creatinine 4.7 and eGFR less than 10. Blood pressure has been stable and electrolyte acceptable. Review of Systems A complete review of systems was performed. Pertinent positives are noted above. All other systems are negative. Vital Signs Last 8 Hrs Date Time Temp Pulse Resp B/P (MAP) Pulse Ox O2 Delivery O2 Flow Rate FiO2 04/17/17 11:02 36.5 91 17 143/65 (91) 97 Nasal Cannula 2.0 04/17/17 07:22 36.8 60 16 138/64 (88) 98 Nasal Cannula 2.0 04/17/17 04:00 Nasal Cannula 2.0 04/17/17 03:27 36.6 62 20 135/60 (85) 97 Nasal Cannula 2.0 Last Recorded Weight Weight (Kilograms): 71.600 Physical Exam GENERAL: elderly female, AAA x 3, ill-appearing, febrile, in no distress. NECK: Supple, no JVD. RESPIRATORY: Normal breathing efforts, no accessory muscle use, rales bilaterally at bases CARDIOVASCULAR: S1, S2 normal, rate rhythm regular. EXTREMITY: No lower extremity edema NEURO: speech fluent. PSYCHIATRY: Normal mood and judgment Family History Patient reports no known family medical history. Social History Smoking Status: Never smoker Drug Use: none Marital Status: Housing Status: lives with family Occupation: retired Laboratory Results Past 24 Hours 04/17/17 05:32 04/16/17 13:58 04/17/17 05:32 Test 04/16/17 11:33 04/16/17 13:58 04/16/17 16:10 04/16/17 19:57 Bedside Glucose 91 mg/dl (70-90) 142 mg/dl (70-90) 174 mg/dl (70-90) Anion Gap 13.0 mmol/L (3-11) Est Creatinine Clear Calc Drug Dose 8.5 ml/min Estimated GFR () 10.5 Estimated GFR (Non- 9.1 BUN/Creatinine Ratio 17.4 (10-20) Calcium Level 8.0 mg/dl (8.5-10.1) Test 04/16/17 23:58 04/17/17 05:32 04/17/17 06:33 Bedside Glucose 126 mg/dl (70-90) 100 mg/dl (70-90) Red Blood Count 2.58 M/uL (4.2-5.4) Mean Corpuscular Volume 90.7 fL (80-100) Mean Corpuscular Hemoglobin 30.6 pg (25-34) Mean Corpuscular Hemoglobin Concent 33.8 g/dl (32-36) RDW Standard Deviation 46.3 fL (36.4-46.3) RDW Coefficient of Variation 13.8 % (11.5-14.5) Mean Platelet Volume 9.2 fL (7.4-10.4) Anion Gap 8.0 mmol/L (3-11) Est Creatinine Clear Calc Drug Dose 7.6 ml/min Estimated GFR () 9.3 Estimated GFR (Non- 8.0 BUN/Creatinine Ratio 16.8 (10-20) Calcium Level 8.0 mg/dl (8.5-10.1) Phosphorus Level 6.0 mg/dl (2.5-4.9) Magnesium Level 2.2 mg/dl (1.8-2.4) Allergies Coded Allergies: Carbamazepine (Verified Allergy, Intermediate, RASH, 04/14/17) Carvedilol (Verified Allergy, Intermediate, DIZZINESS, VISUAL DISTURBANCES , 04/14/17) Erythromycin (Verified Allergy, Intermediate, RASH, 04/14/17) Statins (Verified Adverse Reaction, Intermediate, MUSCLE ACHES, 04/14/17) Medications Current Inpatient Medications Medications (Trade) Dose Ordered Sig/Haja Route Start Time Stop Time Status Last Admin Dose Admin Alprazolam (Xanax Tab) 0.5 mg HS PO 04/14/17 21:00 05/14/17 20:59 04/16/17 21:23 0.5 MG Aspirin (Ecotrin Tab) 81 mg QAM PO 04/15/17 09:00 05/15/17 08:59 04/17/17 08:54 81 MG EZETIMIBE (Zetia Tab) 10 mg QAM PO 04/15/17 09:00 05/15/17 08:59 04/17/17 08:56 10 MG Hydralazine HCl (Apresoline Tab) 100 mg TID PO 04/14/17 21:00 05/14/17 20:59 04/17/17 08:54 100 MG Isosorbide Mononitrate (Imdur Ext Rel Tab) 60 mg QAM PO 04/15/17 09:00 05/15/17 08:59 04/17/17 08:55 60 MG Labetalol HCl (Normodyne Tab) 200 mg BID PO 04/14/17 21:00 05/14/17 20:59 04/17/17 08:55 200 MG Fish Oil ([place]-3 (Purified Fish Oil) Cap) 1 gm DAILY PO 04/15/17 09:00 05/15/17 08:59 04/17/17 08:55 1 GM Insulin Glargine (Lantus Solostar Pen) 20 units DAILY@2100 SC 04/14/17 21:00 05/14/17 20:59 04/16/17 20:18 20 UNITS Heparin Sodium (Porcine) (Heparin Sq 5000 Unit/0.5ml) 5,000 unit Q12@0900,2100 SQ 04/14/17 21:00 05/14/17 20:59 04/17/17 08:58 5,000 UNIT Acetaminophen (Tylenol Tab) 650 mg Q4H PRN PO 04/14/17 16:15 05/14/17 16:14 04/16/17 07:49 650 MG Magnesium Hydroxide (Milk Of Magnesia Susp) 30 ml Q12H PRN PO 04/14/17 16:15 05/14/17 16:14 Zolpidem Tartrate (Ambien Tab) 5 mg HSZ PRN PO 04/14/17 16:15 05/14/17 16:14 04/16/17 00:52 5 MG Zolpidem Tartrate (Ambien Tab) 5 mg HSZ PRN PO 04/14/17 16:15 05/14/17 16:14 Ondansetron HCl (Zofran Inj) 4 mg Q6H PRN IV 04/14/17 16:15 05/14/17 16:14 04/16/17 07:49 4 MG Polyethylene (Miralax Powder Packet) 17 gm DAILY PRN PO 04/14/17 16:15 05/14/17 16:14 Insulin Aspart (novoLOG ASPART) SLIDING SCALE If C... ACHS SC 04/14/17 21:00 05/14/17 20:59 04/17/17 08:57 1 UNITS Glucose (Glucose 40% Gel) 15-30 GRAMS 15 GRAMS... UD PRN PO 04/14/17 16:15 05/14/17 16:14 Glucose (Glucose Chew Tab) 4-8 Tablets 4 Tabl... UD PRN PO 04/14/17 16:15 05/14/17 16:14 Dextrose (Dextrose 50% 50ML Syringe) 25-50ML OF 50% DW IV FOR... UD PRN IV 04/14/17 16:15 05/14/17 16:14 Glucagon (Glucagon Inj) 1 mg UD PRN SQ 04/14/17 16:15 05/14/17 16:14 Labetalol HCl (Normodyne IV) 20 mg Q6H PRN IV 04/14/17 16:45 05/14/17 16:44 04/14/17 18:13 20 MG Pantoprazole Sodium (Protonix Tab) 40 mg QAM PO 04/14/17 18:00 04/18/17 23:59 04/17/17 08:55 40 MG Al Hydrox/Mg Hydrox/Simethicone (Maalox Max Susp) 15 ml Q6H PRN PO 04/14/17 16:45 05/14/17 16:44 04/15/17 21:20 15 ML Famotidine 20 mg/ Syringe 5 ml @ 2.5 mls/min DAILY@1800 IV 04/14/17 18:00 05/14/17 17:59 04/16/17 18:41 2.5 MLS/MIN Metoclopramide HCl (Reglan Inj) 5 mg DAILY PRN IV 04/15/17 22:00 05/15/17 21:59 Ceftriaxone Sodium 1000 mg/ Dextrose 60 ml @ 100 mls/hr Q24H IV 04/16/17 08:00 04/26/17 07:59 04/17/17 08:54 100 MLS/HR Meperidine HCl (Demerol Inj) 25 mg Q8 PRN IV 04/16/17 09:30 04/30/17 09:29 Furosemide (Lasix Tab) 40 mg QAM PO 04/18/17 09:00 05/16/17 08:59 Impression (1) Accelerated hypertension (2) Acute renal insufficiency (3) Chronic kidney disease (4) Nausea and vomiting Ms. Dominguez is an 82-year-old female with longstanding DM II, hyperlipidemia, HTN, ASCVD s/p CABG and pacemaker placement, as well as CKD. She has baseline CKD III A3 with a creatinine of 1.7 - 2.0. 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 Urine protein excretion is in excess of 7 grams per day. Based on multiple discussions with Dr. Noyola and me, Nava has expressed that she would consider hemodialysis if indicated. She was admitted with persistent GUSTAVO as well as accelerated hypertension. Renal US report 04/05: 10.5 cm kidneys w/ mild cortical atrophy, Renal artery doppler was negative for large vessel JASMINE. High resistive indices likely related to small vessel disease and ATN. 24 hour urine protein 7.5g. Likely due to diabetic nephropathy and hypertension, Patient did not tolerate LISSETH inhibitor due to worsening kidney function. Will avoid LISSETH / ARB. 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 Can repeat with outpatient follow up. Recommendations -- renal function worsening, Creatinine 4.7, unclear etiology, ? ATN ( baseline creatinine has been 1.7 - 2.0) -- change Lasix to 40 milligram p.o. daily and may need to increase dose further considering low GFR --check 24 h urine for Crcl and proteinuria -- medina catheter for accurate I's and O's -- discussed briefly about dialysis with the patient and pt agreeable if needed ( will also contact family: Daughter Maren [phone], Son Gabriela: [phone] ) -- Metabolic profile otherwise acceptable for now -- continue on Renal diet with potassium and sodium restriction -- Monitor renal profile daily
--- NOTE | 2017-04-17 12:18 | Medical Student: [facility] ---
Med Student Progress Note Date of Service Apr 17, 2017. Subjective Pt evaluation today including: conversation w/ patient, physical exam, chart review, lab review, review of studies Voiding: medina catheter in place 82 y/o F with nausea, dry heaving, hypertension SBP up to 230s in ED prior to admission Feeling better today with resolution of chills. Denies fever, CP, SOB, abdo pain , V/D Eating, drinking, ambulating down [place] Continues to have mild/mod nausea but improved overall Review of Systems Constitutional: No fever, No chills Respiratory: No cough, No shortness of breath Cardiac: No chest pain Abdomen: + nausea, No vomiting, No diarrhea Female : No dysuria Psychiatric: No depression symptoms Skin: No rash Objective Vital Signs Date Time Temp Pulse Resp B/P (MAP) Pulse Ox O2 Delivery O2 Flow Rate FiO2 04/17/17 11:02 36.5 91 17 143/65 (91) 97 Nasal Cannula 2.0 04/17/17 07:22 36.8 60 16 138/64 (88) 98 Nasal Cannula 2.0 04/17/17 04:00 Nasal Cannula 2.0 04/17/17 03:27 36.6 62 20 135/60 (85) 97 Nasal Cannula 2.0 04/17/17 00:00 Nasal Cannula 2.0 04/16/17 23:18 37.0 59 21 120/55 (76) 98 Nasal Cannula 2.0 04/16/17 20:00 Nasal Cannula 2.0 04/16/17 19:36 36.4 60 16 120/62 (81) 96 Nasal Cannula 2.0 04/16/17 16:00 97 Nasal Cannula 2.0 04/16/17 14:55 36.9 60 16 100/53 (69) 97 Nasal Cannula 2.0 04/16/17 12:00 95 Nasal Cannula 2.0 Physical Exam General Appearance: WD/WN, no apparent distress Eyes: bilateral eyes EOMI ENT: hearing grossly normal Neck: supple Respiratory/Chest: chest non-tender, lungs clear, normal breath sounds Cardiovascular: no JVD, + pertinent finding (pacemaker) Abdomen: normal bowel sounds, non tender, soft Neurologic/Psychiatric: alert, normal mood/affect, oriented x 3 Skin: warm/dry, no rash Laboratory Results Last 24 Hours Test 04/16/17 13:58 04/16/17 16:10 04/16/17 19:57 04/16/17 23:58 Sodium Level 134 mmol/L Potassium Level 4.8 mmol/L Chloride Level 104 mmol/L Carbon Dioxide Level 17 mmol/L Anion Gap 13.0 mmol/L Blood Urea Nitrogen 74 mg/dl Creatinine 4.25 mg/dl Est Creatinine Clear Calc Drug Dose 8.5 ml/min Estimated GFR () 10.5 Estimated GFR (Non- 9.1 BUN/Creatinine Ratio 17.4 Random Glucose 112 mg/dl Calcium Level 8.0 mg/dl Bedside Glucose 142 mg/dl 174 mg/dl 126 mg/dl Test 04/17/17 05:32 04/17/17 06:33 04/17/17 11:15 White Blood Count 14.62 K/uL Red Blood Count 2.58 M/uL Hemoglobin 7.9 g/dL Hematocrit 23.4 % Mean Corpuscular Volume 90.7 fL Mean Corpuscular Hemoglobin 30.6 pg Mean Corpuscular Hemoglobin Concent 33.8 g/dl RDW Standard Deviation 46.3 fL RDW Coefficient of Variation 13.8 % Platelet Count 164 K/uL Mean Platelet Volume 9.2 fL Sodium Level 133 mmol/L Potassium Level 5.0 mmol/L Chloride Level 105 mmol/L Carbon Dioxide Level 20 mmol/L Anion Gap 8.0 mmol/L Blood Urea Nitrogen 79 mg/dl Creatinine 4.69 mg/dl Est Creatinine Clear Calc Drug Dose 7.6 ml/min Estimated GFR () 9.3 Estimated GFR (Non- 8.0 BUN/Creatinine Ratio 16.8 Random Glucose 90 mg/dl Calcium Level 8.0 mg/dl Phosphorus Level 6.0 mg/dl Magnesium Level 2.2 mg/dl Bedside Glucose 100 mg/dl 123 mg/dl Medications Current Inpatient Medications Medications (Trade) Dose Ordered Sig/Haja Route Start Time Stop Time Status Last Admin Dose Admin Alprazolam (Xanax Tab) 0.5 mg HS PO 04/14/17 21:00 05/14/17 20:59 04/16/17 21:23 0.5 MG Aspirin (Ecotrin Tab) 81 mg QAM PO 04/15/17 09:00 05/15/17 08:59 04/17/17 08:54 81 MG EZETIMIBE (Zetia Tab) 10 mg QAM PO 04/15/17 09:00 05/15/17 08:59 04/17/17 08:56 10 MG Hydralazine HCl (Apresoline Tab) 100 mg TID PO 04/14/17 21:00 05/14/17 20:59 04/17/17 08:54 100 MG Isosorbide Mononitrate (Imdur Ext Rel Tab) 60 mg QAM PO 04/15/17 09:00 05/15/17 08:59 04/17/17 08:55 60 MG Labetalol HCl (Normodyne Tab) 200 mg BID PO 04/14/17 21:00 05/14/17 20:59 04/17/17 08:55 200 MG Fish Oil ([place]-3 (Purified Fish Oil) Cap) 1 gm DAILY PO 04/15/17 09:00 05/15/17 08:59 04/17/17 08:55 1 GM Insulin Glargine (Lantus Solostar Pen) 20 units DAILY@2100 SC 04/14/17 21:00 05/14/17 20:59 04/16/17 20:18 20 UNITS Heparin Sodium (Porcine) (Heparin Sq 5000 Unit/0.5ml) 5,000 unit Q12@0900,2100 SQ 04/14/17 21:00 05/14/17 20:59 04/17/17 08:58 5,000 UNIT Acetaminophen (Tylenol Tab) 650 mg Q4H PRN PO 04/14/17 16:15 05/14/17 16:14 04/16/17 07:49 650 MG Magnesium Hydroxide (Milk Of Magnesia Susp) 30 ml Q12H PRN PO 04/14/17 16:15 05/14/17 16:14 Zolpidem Tartrate (Ambien Tab) 5 mg HSZ PRN PO 04/14/17 16:15 05/14/17 16:14 04/16/17 00:52 5 MG Zolpidem Tartrate (Ambien Tab) 5 mg HSZ PRN PO 04/14/17 16:15 05/14/17 16:14 Ondansetron HCl (Zofran Inj) 4 mg Q6H PRN IV 04/14/17 16:15 05/14/17 16:14 04/16/17 07:49 4 MG Polyethylene (Miralax Powder Packet) 17 gm DAILY PRN PO 04/14/17 16:15 05/14/17 16:14 Insulin Aspart (novoLOG ASPART) SLIDING SCALE If C... ACHS SC 04/14/17 21:00 05/14/17 20:59 04/17/17 08:57 1 UNITS Glucose (Glucose 40% Gel) 15-30 GRAMS 15 GRAMS... UD PRN PO 04/14/17 16:15 05/14/17 16:14 Glucose (Glucose Chew Tab) 4-8 Tablets 4 Tabl... UD PRN PO 04/14/17 16:15 05/14/17 16:14 Dextrose (Dextrose 50% 50ML Syringe) 25-50ML OF 50% DW IV FOR... UD PRN IV 04/14/17 16:15 05/14/17 16:14 Glucagon (Glucagon Inj) 1 mg UD PRN SQ 04/14/17 16:15 05/14/17 16:14 Labetalol HCl (Normodyne IV) 20 mg Q6H PRN IV 04/14/17 16:45 05/14/17 16:44 04/14/17 18:13 20 MG Pantoprazole Sodium (Protonix Tab) 40 mg QAM PO 04/14/17 18:00 04/18/17 23:59 04/17/17 08:55 40 MG Al Hydrox/Mg Hydrox/Simethicone (Maalox Max Susp) 15 ml Q6H PRN PO 04/14/17 16:45 05/14/17 16:44 04/15/17 21:20 15 ML Famotidine 20 mg/ Syringe 5 ml @ 2.5 mls/min DAILY@1800 IV 04/14/17 18:00 05/14/17 17:59 04/16/17 18:41 2.5 MLS/MIN Metoclopramide HCl (Reglan Inj) 5 mg DAILY PRN IV 04/15/17 22:00 05/15/17 21:59 Ceftriaxone Sodium 1000 mg/ Dextrose 60 ml @ 100 mls/hr Q24H IV 04/16/17 08:00 04/26/17 07:59 04/17/17 08:54 100 MLS/HR Meperidine HCl (Demerol Inj) 25 mg Q8 PRN IV 04/16/17 09:30 1/22/18 09:29 Furosemide (Lasix Tab) 40 mg QAM PO 04/18/17 09:00 05/16/17 08:59 Assessment and Plan Assessment and Plan: 82 y/o F with nuasea and admitted for hypertension SBPs up to 230s in ED prior to admission treated for bacteremia and GUSTAVO on CKD 1. Bacteremia / stemming from UTI sepsis -Blood cx / sensitivities pending -Last febrile 2 days ago at 38.6, remains afebrile today at 36.6, assume good response to Abx -Continue Rocephin, pending blood cx 2. GUSTAVO on CKD stage 3 - ATN possibly from UTI/sepsis - creat up to 4.7 from 4.2 yesterday, bun up 79, potassium stable at 5 today - nausea slightly improved, possible symptomatic uremia - Pt is open to HD but AEIOU indications for emergent HD not present, Dr. Costa has counseled pt and does not want HD at this time - Dr. Costa gave 40mg lasix today, patient producing cloudy urine via medina cath 3. HTN - stable BPs - Holding IV labetalol - nausea probably not from labetalol as reported 4. Troponin elevation -trending down, no evidence of acute ischemia on EKG, possibly elevated due to demand ischemia/increased O2 need in setting of hypertensive episode -most recent trop 0.17, discontinue 5. CAD s/p CABG and pacemaker -continue Zetia, doesn't tolerate statins - continue ASA 6. DVT ppx: -Heparin 5k sq 7. Dispo: -Remain Tele 8. Full code
--- NOTE | 2017-04-17 13:34 | Progress Note ---
Subjective Date of Service: Apr 17, 2017. Subjective Pt evaluation today including: conversation w/ patient, conversation w/ family , physical exam, lab review, conversation w/ [facility] consultant, review of inpatient medication list Pain: no pain PO Intake: improving Voiding: medina catheter in place patient feels much better today, ambulating in the hallway, more energy, better appetite no fever, no rigors, breathing well reviewed labs, Cr up to 4.7, WBC up at 14k discussed with Dr. Mijares updated family at the bedside Problem List Medical Problems: (1) Acute kidney failure Status: Acute (2) Cholelithiasis Status: Acute (3) Dehydration Status: Acute (4) HTN (hypertension) Status: Acute (5) Hypertensive emergency Status: Acute (6) Influenza Status: Acute (7) Nausea and vomiting Status: Acute (8) Proteinuria Status: Acute Review of Systems Constitutional: + weakness All Other Systems: Reviewed and Negative Medications Current Inpatient Medications Medications (Trade) Dose Ordered Sig/Haja Route Start Time Stop Time Status Last Admin Dose Admin Alprazolam (Xanax Tab) 0.5 mg HS PO 04/14/17 21:00 05/14/17 20:59 04/16/17 21:23 0.5 MG Aspirin (Ecotrin Tab) 81 mg QAM PO 04/15/17 09:00 05/15/17 08:59 04/17/17 08:54 81 MG EZETIMIBE (Zetia Tab) 10 mg QAM PO 04/15/17 09:00 05/15/17 08:59 04/17/17 08:56 10 MG Hydralazine HCl (Apresoline Tab) 100 mg TID PO 04/14/17 21:00 05/14/17 20:59 04/17/17 08:54 100 MG Isosorbide Mononitrate (Imdur Ext Rel Tab) 60 mg QAM PO 04/15/17 09:00 05/15/17 08:59 04/17/17 08:55 60 MG Labetalol HCl (Normodyne Tab) 200 mg BID PO 04/14/17 21:00 05/14/17 20:59 04/17/17 08:55 200 MG Fish Oil ([place]-3 (Purified Fish Oil) Cap) 1 gm DAILY PO 04/15/17 09:00 05/15/17 08:59 04/17/17 08:55 1 GM Insulin Glargine (Lantus Solostar Pen) 20 units DAILY@2100 SC 04/14/17 21:00 05/14/17 20:59 04/16/17 20:18 20 UNITS Heparin Sodium (Porcine) (Heparin Sq 5000 Unit/0.5ml) 5,000 unit Q12@0900,2100 SQ 04/14/17 21:00 05/14/17 20:59 04/17/17 08:58 5,000 UNIT Acetaminophen (Tylenol Tab) 650 mg Q4H PRN PO 04/14/17 16:15 05/14/17 16:14 04/16/17 07:49 650 MG Magnesium Hydroxide (Milk Of Magnesia Susp) 30 ml Q12H PRN PO 04/14/17 16:15 05/14/17 16:14 Zolpidem Tartrate (Ambien Tab) 5 mg HSZ PRN PO 04/14/17 16:15 05/14/17 16:14 04/16/17 00:52 5 MG Zolpidem Tartrate (Ambien Tab) 5 mg HSZ PRN PO 04/14/17 16:15 05/14/17 16:14 Ondansetron HCl (Zofran Inj) 4 mg Q6H PRN IV 04/14/17 16:15 05/14/17 16:14 04/16/17 07:49 4 MG Polyethylene (Miralax Powder Packet) 17 gm DAILY PRN PO 04/14/17 16:15 05/14/17 16:14 Insulin Aspart (novoLOG ASPART) SLIDING SCALE If C... ACHS SC 04/14/17 21:00 05/14/17 20:59 04/17/17 12:18 3 UNITS Glucose (Glucose 40% Gel) 15-30 GRAMS 15 GRAMS... UD PRN PO 04/14/17 16:15 05/14/17 16:14 Glucose (Glucose Chew Tab) 4-8 Tablets 4 Tabl... UD PRN PO 04/14/17 16:15 05/14/17 16:14 Dextrose (Dextrose 50% 50ML Syringe) 25-50ML OF 50% DW IV FOR... UD PRN IV 04/14/17 16:15 05/14/17 16:14 Glucagon (Glucagon Inj) 1 mg UD PRN SQ 04/14/17 16:15 05/14/17 16:14 Labetalol HCl (Normodyne IV) 20 mg Q6H PRN IV 04/14/17 16:45 05/14/17 16:44 04/14/17 18:13 20 MG Pantoprazole Sodium (Protonix Tab) 40 mg QAM PO 04/14/17 18:00 04/18/17 23:59 04/17/17 08:55 40 MG Al Hydrox/Mg Hydrox/Simethicone (Maalox Max Susp) 15 ml Q6H PRN PO 04/14/17 16:45 05/14/17 16:44 04/15/17 21:20 15 ML Famotidine 20 mg/ Syringe 5 ml @ 2.5 mls/min DAILY@1800 IV 04/14/17 18:00 05/14/17 17:59 04/16/17 18:41 2.5 MLS/MIN Metoclopramide HCl (Reglan Inj) 5 mg DAILY PRN IV 04/15/17 22:00 05/15/17 21:59 Ceftriaxone Sodium 1000 mg/ Dextrose 60 ml @ 100 mls/hr Q24H IV 04/16/17 08:00 04/26/17 07:59 04/17/17 08:54 100 MLS/HR Meperidine HCl (Demerol Inj) 25 mg Q8 PRN IV 04/16/17 09:30 04/30/17 09:29 Furosemide (Lasix Tab) 40 mg QAM PO 04/18/17 09:00 05/16/17 08:59 Objective Vital Signs Date Time Temp Pulse Resp B/P (MAP) Pulse Ox O2 Delivery O2 Flow Rate FiO2 04/17/17 12:30 60 04/17/17 11:02 36.5 91 17 143/65 (91) 97 Nasal Cannula 2.0 04/17/17 08:00 Nasal Cannula 2.0 04/17/17 07:22 36.8 60 16 138/64 (88) 98 Nasal Cannula 2.0 04/17/17 04:00 Nasal Cannula 2.0 04/17/17 03:27 36.6 62 20 135/60 (85) 97 Nasal Cannula 2.0 04/17/17 00:00 Nasal Cannula 2.0 04/16/17 23:18 37.0 59 21 120/55 (76) 98 Nasal Cannula 2.0 04/16/17 20:00 Nasal Cannula 2.0 04/16/17 19:36 36.4 60 16 120/62 (81) 96 Nasal Cannula 2.0 04/16/17 16:00 97 Nasal Cannula 2.0 04/16/17 14:55 36.9 60 16 100/53 (69) 97 Nasal Cannula 2.0 Physical Exam General Appearance: WD/WN, no apparent distress Eyes: normal inspection, EOMI, sclerae normal ENT: normal ENT inspection, hearing grossly normal, pharynx normal Neck: supple, no adenopathy, no JVD, trachea midline Respiratory/Chest: chest non-tender, lungs clear, normal breath sounds, no respiratory distress, no accessory muscle use Cardiovascular: regular rate, rhythm, no edema, no gallop, no JVD, no murmur Abdomen: normal bowel sounds, non tender, soft, no organomegaly Extremities: normal range of motion, non-tender, normal inspection, no pedal edema, no calf tenderness, pelvis stable Neurologic/Psychiatric: management and budget analyst II-XII nml as tested, alert, normal mood/affect, oriented x 3, + motor weakness (generalized, but improving) Skin: normal color, warm/dry, no rash Laboratory Results Last 24 Hours Test 04/16/17 13:58 04/16/17 16:10 04/16/17 19:57 04/16/17 23:58 Sodium Level 134 mmol/L Potassium Level 4.8 mmol/L Chloride Level 104 mmol/L Carbon Dioxide Level 17 mmol/L Anion Gap 13.0 mmol/L Blood Urea Nitrogen 74 mg/dl Creatinine 4.25 mg/dl Est Creatinine Clear Calc Drug Dose 8.5 ml/min Estimated GFR () 10.5 Estimated GFR (Non- 9.1 BUN/Creatinine Ratio 17.4 Random Glucose 112 mg/dl Calcium Level 8.0 mg/dl Bedside Glucose 142 mg/dl 174 mg/dl 126 mg/dl Test 04/17/17 05:32 04/17/17 06:33 04/17/17 11:15 04/17/17 13:00 White Blood Count 14.62 K/uL Red Blood Count 2.58 M/uL Hemoglobin 7.9 g/dL Hematocrit 23.4 % Mean Corpuscular Volume 90.7 fL Mean Corpuscular Hemoglobin 30.6 pg Mean Corpuscular Hemoglobin Concent 33.8 g/dl RDW Standard Deviation 46.3 fL RDW Coefficient of Variation 13.8 % Platelet Count 164 K/uL Mean Platelet Volume 9.2 fL Sodium Level 133 mmol/L Potassium Level 5.0 mmol/L Chloride Level 105 mmol/L Carbon Dioxide Level 20 mmol/L Anion Gap 8.0 mmol/L Blood Urea Nitrogen 79 mg/dl Creatinine 4.69 mg/dl Est Creatinine Clear Calc Drug Dose 7.6 ml/min Estimated GFR () 9.3 Estimated GFR (Non- 8.0 BUN/Creatinine Ratio 16.8 Random Glucose 90 mg/dl Calcium Level 8.0 mg/dl Phosphorus Level 6.0 mg/dl Magnesium Level 2.2 mg/dl Bedside Glucose 100 mg/dl 123 mg/dl Assessment and Plan This pt is a marilee 82 yo female with a h/o HTN, CAD, SSS now s/p pacer, chronic diastolic CHF, mild MR, 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, hypertriglyceridemia, CKD stage III, proteinuria, DMII with nephropathy, here with nausea, dry heaving and hypertensive urgerncy - GUSTAVO on CKD stage III: possibly ATN, Cr up to 4.7 today, making urine nephrology giving Lasix 40mg PO daily, K is 5.1 open to HD if needed medina placed for accurate urine output (she is incontinent) repeat BMP today at 1300 and tomorrow - UTI with bacteremia, sepsis, POA afebrile for 48 hours, no rigors, more energy and better appetite today continue Rocephin, certainly responding clinically preliminary blood culture report is both sets positive for gram negative bacilli WBC still up slightly - HTN emergency: resolved, BP actually low normal now, holding anti- hypertensives Labetalol may have been contributing to nausea? or perhaps it was just uremia - ECG with TWIs in lateral leads new from previous, RBBB. Troponin minimally elevated (could be due to GUSTAVO), no chest pain ECHO with normal EF, mild MR, borderline Pulm HTN, stable mass/?myxoma, and grade 1 diastolic dysfunction with mod LV - Chronic diastolic HF: examines euvolemic currently, making adequate urine with Lasix CAD, status post CABG in 1992, but no details available/Sick sinus syndrome, status post dual-chamber pacemaker implantation on 10/29/2008 followed by EP. -remains always paced on tele, review of outpt records shows pacer functioning well and 100% atrial paced in 12/[address] Farrell -continue Zetia, is intolerant to statins -continue ASA DMII-controlled, on jail insulin. HgbA1C here 7.1% -continue Lantus and SSI, accuchecks Hypertriglyceridemia-was > 1000 in the past. Recently switched from fenofibrate to fish oil due to renal failure -continue Zetia here -restart fish oil on discharge Left sided sciatica, lower back pain-ongoing for several months, with h/o falls -tylenol prn pain, voltaren gel ok as minimal systemic absorption -PT/OT consults Proph-YASMANY ibrahime,heparin SQ Plan: keep on tele, follow up final blood culture results, check repeat blood cultures tomorrow PT/OT following may require rehab once medically stable
[2017-04-17 15:19] LABS: CALCIUM 8.1 mg/dl (8.5-10.1); CREATININE 4.83 mg/dl (0.60-1.20); POTASSIUM 4.9 mmol/L (3.5-5.1)
[2017-04-17] MEDS ORDERED: NURSING VERBAL MED ORDER ONE (17:15)
[2017-04-17] MEDS: FAMOTIDINE 20 MG TAB PO SCH (19:25)
[2017-04-17] MEDS: ALPRAZOLAM 0.5 MG TAB PO SCH (20:57)
[2017-04-17] MEDS: INSULIN GLARGINE SOLOSTAR 100 UNITS/ML 3 ML PEN SC SCH (21:03)
[2017-04-18] VITALS (7 sets, daily range): BP systolic 154–170; BP diastolic 56–102; PULSE 58–68; TEMP 36.4–37.2; O2SAT 94–98
[2017-04-18] MEDS: ACETAMINOPHEN 325 MG TAB PO PRN ×2 (01:38→15:20)
[2017-04-18 06:24] LABS: BASO % 0.4 %; BASO ABS # 0.04 K/uL (0-0.2); EOS % 6.3 %; EOS ABS # 0.61 K/uL (0-0.5); HEMATOCRIT 22.5 % (37-47); HEMOGLOBIN 7.7 g/dL (12.0-16.0); IG# 0.06 K/uL (0.00-0.02); LYMPH % 7.2 %; MEAN CELL VOLUME 90.4 fL (80-100); MEAN CORPUSCULAR HEMOGLOBIN 30.9 pg (25-34); MEAN CORPUSCULAR HGB CONC 34.2 g/dl (32-36); MEAN PLATELET VOLUME 8.9 fL (7.4-10.4); MONO % 11.1 %; MONO ABS # 1.07 K/uL (0.11-0.59); NEUT % 74.4 %; NEUT ABS # 7.18 K/uL (1.4-6.5); PLATELET COUNT 173 K/uL (130-400); RED CELL DISTRIBUTION WIDTH CV 13.5 % (11.5-14.5); WHITE BLOOD COUNT 9.66 K/uL (4.8-10.8)
[2017-04-18 07:00] LABS: CALCIUM 7.8 mg/dl (8.5-10.1); CREATININE 4.7 mg/dl (0.60-1.20); POTASSIUM 5.2 mmol/L (3.5-5.1)
[2017-04-18] MEDS: INSULIN ASPART 100 UNITS/ML 3 ML PEN SC SCH ×4 (07:56→21:00)
[2017-04-18] MEDS: EZETIMIBE 10MG TAB PO SCH (07:57)
[2017-04-18] MEDS: CEFTRIAXONE SOD INJ 1,000 MG in DEXTROSE 5% 50ML 50 ML IV SCH (07:57)
[2017-04-18] MEDS: ASPIRIN 81 MG ECTAB PO SCH (07:57)
[2017-04-18] MEDS: LABETALOL HCL 200 MG TAB PO SCH ×2 (07:58→20:59)
[2017-04-18] MEDS: OMEGA-3 (PURIFIED FISH OIL) 1 GM CAP PO SCH (07:58)
[2017-04-18] MEDS: ISOSORBIDE MONONITRATE 60 MG TABCR PO SCH (07:58)
[2017-04-18] MEDS: PANTOprazole SOD 40 MG TAB PO SCH (07:59)
[2017-04-18] MEDS: HEPARIN SOD 5000 UNIT/0.5 ML CARP SQ SCH ×2 (08:00→21:08)
[2017-04-18] MEDS ORDERED: EPOETIN ALFA 10,000 UNITS/ML VIAL SQ SCH (08:30)
[2017-04-18] MEDS ORDERED: FUROSEMIDE 40 MG TAB PO SCH (09:00)
--- NOTE | 2017-04-18 14:55 | Nephrology Progress Note ---
Nephrology Progress Note Date of Service Apr 18, 2017. Chief Complaint F/U for GUSTAVO Subjective Nava Was seen and examined in her room this morning. Overall she is looking better and mentioned that she is feeling better. Denies any shortness of breath or chest pain. Urine output improved,creatinine stable at 4.7 and eGFR less than 10. Blood pressure has been stable and electrolyte acceptable. Review of Systems A complete review of systems was performed. Pertinent positives are noted above. All other systems are negative. Vital Signs Last 8 Hrs Date Time Temp Pulse Resp B/P (MAP) Pulse Ox O2 Delivery O2 Flow Rate FiO2 04/18/17 07:36 36.7 58 22 169/64 (99) 95 Nasal Cannula 2.0 04/18/17 04:00 Nasal Cannula 2.0 04/18/17 03:59 36.6 60 20 156/62 (93) 98 Nasal Cannula 2.0 04/18/17 01:53 Nasal Cannula 2.0 Last Recorded Weight Weight (Kilograms): 71.100 Physical Exam GENERAL: elderly female, AAA x 3, ill-appearing, febrile, in no distress. NECK: Supple, no JVD. RESPIRATORY: Normal breathing efforts, no accessory muscle use, rales bilaterally at bases CARDIOVASCULAR: S1, S2 normal, rate rhythm regular. EXTREMITY: No lower extremity edema NEURO: speech fluent. PSYCHIATRY: Normal mood and judgment Family History Patient reports no known family medical history. Social History Smoking Status: Never smoker Drug Use: none Marital Status: Housing Status: lives with family Occupation: retired Laboratory Results Past 24 Hours 04/18/17 05:58 Red Blood Count 2.49, Mean Corpuscular Volume 90.4, Mean Corpuscular Hemoglobin 30.9, Mean Corpuscular Hemoglobin Concent 34.2, Mean Platelet Volume 8.9, Neutrophils (%) (Auto) 74.4, Lymphocytes (%) (Auto) 7.2, Monocytes (%) (Auto) 11.1, Eosinophils (%) (Auto) 6.3, Basophils (%) (Auto) 0.4, Neutrophils # (Auto ) 7.18, Lymphocytes # (Auto) 0.70, Monocytes # (Auto) 1.07, Eosinophils # (Auto ) 0.61, Basophils # (Auto) 0.04 04/17/17 14:21 04/18/17 05:58 Test 04/17/17 11:15 1/9/18 14:21 04/17/17 15:58 04/17/17 19:55 Bedside Glucose 123 mg/dl (70-90) 127 mg/dl (70-90) 175 mg/dl (70-90) Anion Gap 10.0 mmol/L (3-11) Est Creatinine Clear Calc Drug Dose 7.4 ml/min Estimated GFR () 9.0 Estimated GFR (Non- 7.8 BUN/Creatinine Ratio 17.5 (10-20) Calcium Level 8.1 mg/dl (8.5-10.1) Test 04/18/17 05:58 04/18/17 06:40 White Blood Count 9.66 K/uL (4.8-10.8) Red Blood Count 2.49 M/uL (4.2-5.4) Hemoglobin 7.7 g/dL (12.0-16.0) Hematocrit 22.5 % (37-47) Mean Corpuscular Volume 90.4 fL (80-100) Mean Corpuscular Hemoglobin 30.9 pg (25-34) Mean Corpuscular Hemoglobin Concent 34.2 g/dl (32-36) Platelet Count 173 K/uL (130-400) Mean Platelet Volume 8.9 fL (7.4-10.4) Neutrophils (%) (Auto) 74.4 % Lymphocytes (%) (Auto) 7.2 % Monocytes (%) (Auto) 11.1 % Eosinophils (%) (Auto) 6.3 % Basophils (%) (Auto) 0.4 % Neutrophils # (Auto) 7.18 K/uL (1.4-6.5) Lymphocytes # (Auto) 0.70 K/uL (1.2-3.4) Monocytes # (Auto) 1.07 K/uL (0.11-0.59) Eosinophils # (Auto) 0.61 K/uL (0-0.5) Basophils # (Auto) 0.04 K/uL (0-0.2) RDW Standard Deviation 45.0 fL (36.4-46.3) RDW Coefficient of Variation 13.5 % (11.5-14.5) Immature Granulocyte % (Auto) 0.6 % Immature Granulocyte # (Auto) 0.06 K/uL (0.00-0.02) Red Blood Cell Morphology Unremarkable Anion Gap 12.0 mmol/L (3-11) Est Creatinine Clear Calc Drug Dose 7.6 ml/min Estimated GFR () 9.3 Estimated GFR (Non- 8.0 BUN/Creatinine Ratio 18.5 (10-20) Calcium Level 7.8 mg/dl (8.5-10.1) Magnesium Level 2.3 mg/dl (1.8-2.4) Bedside Glucose 108 mg/dl (70-90) Allergies Coded Allergies: Carbamazepine (Verified Allergy, Intermediate, RASH, 04/14/17) Carvedilol (Verified Allergy, Intermediate, DIZZINESS, VISUAL DISTURBANCES , 04/14/17) Erythromycin (Verified Allergy, Intermediate, RASH, 04/14/17) Statins (Verified Adverse Reaction, Intermediate, MUSCLE ACHES, 04/14/17) Medications Current Inpatient Medications Medications (Trade) Dose Ordered Sig/Haja Route Start Time Stop Time Status Last Admin Dose Admin Alprazolam (Xanax Tab) 0.5 mg HS PO 04/14/17 21:00 05/14/17 20:59 04/17/17 20:57 0.5 MG Aspirin (Ecotrin Tab) 81 mg QAM PO 04/15/17 09:00 05/15/17 08:59 04/18/17 07:57 81 MG EZETIMIBE (Zetia Tab) 10 mg QAM PO 04/15/17 09:00 05/15/17 08:59 04/18/17 07:57 10 MG Hydralazine HCl (Apresoline Tab) 100 mg TID PO 04/14/17 21:00 05/14/17 20:59 04/18/17 07:57 100 MG Isosorbide Mononitrate (Imdur Ext Rel Tab) 60 mg QAM PO 04/15/17 09:00 05/15/17 08:59 04/18/17 07:58 60 MG Labetalol HCl (Normodyne Tab) 200 mg BID PO 04/14/17 21:00 05/14/17 20:59 04/18/17 07:58 200 MG Fish Oil ([place]-3 (Purified Fish Oil) Cap) 1 gm DAILY PO 04/15/17 09:00 05/15/17 08:59 04/18/17 07:58 1 GM Insulin Glargine (Lantus Solostar Pen) 20 units DAILY@2100 SC 04/14/17 21:00 05/14/17 20:59 04/17/17 21:03 20 UNITS Heparin Sodium (Porcine) (Heparin Sq 5000 Unit/0.5ml) 5,000 unit Q12@0900,2100 SQ 04/14/17 21:00 05/14/17 20:59 04/18/17 08:00 5,000 UNIT Acetaminophen (Tylenol Tab) 650 mg Q4H PRN PO 04/14/17 16:15 05/14/17 16:14 04/18/17 01:38 650 MG Magnesium Hydroxide (Milk Of Magnesia Susp) 30 ml Q12H PRN PO 04/14/17 16:15 05/14/17 16:14 Zolpidem Tartrate (Ambien Tab) 5 mg HSZ PRN PO 04/14/17 16:15 05/14/17 16:14 04/16/17 00:52 5 MG Zolpidem Tartrate (Ambien Tab) 5 mg HSZ PRN PO 04/14/17 16:15 05/14/17 16:14 Ondansetron HCl (Zofran Inj) 4 mg Q6H PRN IV 04/14/17 16:15 05/14/17 16:14 04/16/17 07:49 4 MG Polyethylene (Miralax Powder Packet) 17 gm DAILY PRN PO 04/14/17 16:15 05/14/17 16:14 Insulin Aspart (novoLOG ASPART) SLIDING SCALE If C... ACHS SC 04/14/17 21:00 05/14/17 20:59 04/18/17 07:56 1 UNITS Glucose (Glucose 40% Gel) 15-30 GRAMS 15 GRAMS... UD PRN PO 04/14/17 16:15 05/14/17 16:14 Glucose (Glucose Chew Tab) 4-8 Tablets 4 Tabl... UD PRN PO 04/14/17 16:15 05/14/17 16:14 Dextrose (Dextrose 50% 50ML Syringe) 25-50ML OF 50% DW IV FOR... UD PRN IV 04/14/17 16:15 05/14/17 16:14 Glucagon (Glucagon Inj) 1 mg UD PRN SQ 04/14/17 16:15 05/14/17 16:14 Labetalol HCl (Normodyne IV) 20 mg Q6H PRN IV 04/14/17 16:45 05/14/17 16:44 04/14/17 18:13 20 MG Pantoprazole Sodium (Protonix Tab) 40 mg QAM PO 04/14/17 18:00 04/18/17 23:59 04/18/17 07:59 40 MG Al Hydrox/Mg Hydrox/Simethicone (Maalox Max Susp) 15 ml Q6H PRN PO 04/14/17 16:45 05/14/17 16:44 04/15/17 21:20 15 ML Metoclopramide HCl (Reglan Inj) 5 mg DAILY PRN IV 04/15/17 22:00 05/15/17 21:59 Ceftriaxone Sodium 1000 mg/ Dextrose 60 ml @ 100 mls/hr Q24H IV 04/16/17 08:00 04/26/17 07:59 04/18/17 07:57 100 MLS/HR Meperidine HCl (Demerol Inj) 25 mg Q8 PRN IV 04/16/17 09:30 04/30/17 09:29 Furosemide (Lasix Tab) 40 mg QAM PO 04/18/17 09:00 05/16/17 08:59 04/18/17 07:59 40 MG Famotidine (Pepcid Tab) 20 mg DAILY@1800 PO 04/17/17 18:00 05/17/17 17:59 04/17/17 19:25 20 MG Epoetin Arik (Procrit Inj) 10,000 units TODAY@0830 SQ 04/18/17 08:30 04/18/17 18:00 Impression (1) Accelerated hypertension (2) Acute renal insufficiency (3) Chronic kidney disease (4) Nausea and vomiting Ms. Dominguez is an 82-year-old female with longstanding DM II, hyperlipidemia, HTN, ASCVD s/p CABG and pacemaker placement, as well as CKD. She has baseline CKD III A3 with a creatinine of 1.7 - 2.0. 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 Urine protein excretion is in excess of 7 grams per day. Based on multiple discussions with Dr. Noyola and me, Nava has expressed that she would consider hemodialysis if indicated. She was admitted with persistent GUSTAVO as well as accelerated hypertension. Renal US report 04/05: 10.5 cm kidneys w/ mild cortical atrophy, Renal artery doppler was negative for large vessel JASMINE. High resistive indices likely related to small vessel disease and ATN. 24 hour urine protein 7.5g. Likely due to diabetic nephropathy and hypertension, Patient did not tolerate LISSETH inhibitor due to worsening kidney function. Will avoid LISSETH / ARB. 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 Can repeat with outpatient follow up. Recommendations -- renal function stable, Creatinine 4.7 without any significant improvement however, electrolyte remain acceptable -- continue Lasix to 40 milligram p.o. daily -- pending 24 h urine for Crcl and proteinuria -- medina catheter for accurate I's and O's -- discussed about dialysis with the patient and her son Gabriela, there agreeable to do dialysis if necessary ( Daughter Quincy [phone], Son Gabriela: [phone] ) -- Metabolic profile otherwise acceptable for now -- continue on Renal diet with potassium and sodium restriction -- Monitor renal profile daily --no emergency need for dialysis at this point, assess patient daily, if renal function continue to worsen may need to start on dialysis in next 24-48 hours, hopefully will be able to make some decision soon.
--- NOTE | 2017-04-18 15:19 | DIAGNOSTIC IMAGING REPORT ---
GALLBLADDER-ABD LIMITED CLINICAL HISTORY: e. coli bacteremia; eval for cholecystitis COMPARISON STUDY: CT scan dated 04/14/2017 FINDINGS: No pancreatic masses are visualized. The pancreatic duct is at the upper limits of normal in diameter measuring 3 mm. The gallbladder contains several calculi. There is no gallbladder wall thickening. There is no pericholecystic fluid. There is no ductal dilatation. The common bile duct measures 5 mm. The liver is of slightly increased echogenicity and slightly heterogeneous. No focal masses are visualized.. There is a small right pleural effusion. There is no right-sided hydronephrosis. There is a 17 mm right renal cyst. IMPRESSION: 1. Cholelithiasis. No evidence of ductal dilatation 2. 17 mm right renal cyst 3. Right pleural effusion Electronically signed by: Juan Santamaria M.D. 04/18/2017 3:18 PM Dictated Date/Time: 04/18/2017 3:15 PM
[2017-04-18] MEDS: SENNA 8.6 MG TAB PO SCH (15:21)
[2017-04-18] MEDS: POLYETHYLENE (MIRALAX) 17 GM PACK PO SCH ×2 (15:22→20:59)
[2017-04-18] MEDS: FAMOTIDINE 20 MG TAB PO SCH (18:02)
--- NOTE | 2017-04-18 19:46 | Progress Note ---
Subjective Date of Service: Apr 18, 2017. Subjective Pt evaluation today including: conversation w/ patient, physical exam, chart review, lab review, review of studies (CT abd/pelvis, liver u/s ), review of inpatient medication list Pain: denies abd pain; nausea resolved PO Intake: improving Voiding: medina catheter in place c/o constipation overall "feeling better" today no dyspnea at rest but has CHAIDEZ tele stable overnight denies chronic abd pain after eating meals but does have occasional nausea Problem List Medical Problems: (1) Acute kidney failure Status: Acute (2) Cholelithiasis Status: Acute (3) Dehydration Status: Acute (4) HTN (hypertension) Status: Acute (5) Hypertensive emergency Status: Acute (6) Influenza Status: Acute (7) Nausea and vomiting Status: Acute (8) Proteinuria Status: Acute Review of Systems Constitutional: No fever, No chills Respiratory: + dyspnea on exertion, No dyspnea at rest Cardiac: + edema, No chest pain Abdomen: + constipation, No pain, No nausea, No vomiting, No diarrhea, No GI bleeding Objective Vital Signs Date Time Temp Pulse Resp B/P (MAP) Pulse Ox O2 Delivery O2 Flow Rate FiO2 04/18/17 17:00 154/68 (96) 04/18/17 16:00 Room Air 04/18/17 15:47 36.4 61 22 170/102 (124) 97 Room Air 04/18/17 12:00 Room Air 04/18/17 11:25 36.5 68 16 167/56 (93) 95 Room Air 04/18/17 08:00 Nasal Cannula 2.0 04/18/17 07:36 36.7 58 22 169/64 (99) 95 Nasal Cannula 2.0 04/18/17 04:00 Nasal Cannula 2.0 04/18/17 03:59 36.6 60 20 156/62 (93) 98 Nasal Cannula 2.0 04/18/17 01:53 Nasal Cannula 2.0 04/17/17 23:57 36.8 69 19 154/58 (90) 97 Nasal Cannula 2.0 04/17/17 20:00 Nasal Cannula 2.0 Physical Exam General Appearance: no apparent distress ENT: pharynx normal Neck: + JVD (mild) Respiratory/Chest: no respiratory distress, no accessory muscle use, + rales ( bases b/l) Cardiovascular: regular rate, rhythm, no gallop, no murmur Abdomen: normal bowel sounds, non tender, soft, no organomegaly Extremities: + pedal edema Neurologic/Psychiatric: alert, oriented x 3 Laboratory Results Last 24 Hours Test 04/17/17 19:55 04/18/17 05:58 04/18/17 06:40 04/18/17 11:10 Bedside Glucose 175 mg/dl 108 mg/dl 160 mg/dl White Blood Count 9.66 K/uL Red Blood Count 2.49 M/uL Hemoglobin 7.7 g/dL Hematocrit 22.5 % Mean Corpuscular Volume 90.4 fL Mean Corpuscular Hemoglobin 30.9 pg Mean Corpuscular Hemoglobin Concent 34.2 g/dl Platelet Count 173 K/uL Mean Platelet Volume 8.9 fL Neutrophils (%) (Auto) 74.4 % Lymphocytes (%) (Auto) 7.2 % Monocytes (%) (Auto) 11.1 % Eosinophils (%) (Auto) 6.3 % Basophils (%) (Auto) 0.4 % Neutrophils # (Auto) 7.18 K/uL Lymphocytes # (Auto) 0.70 K/uL Monocytes # (Auto) 1.07 K/uL Eosinophils # (Auto) 0.61 K/uL Basophils # (Auto) 0.04 K/uL RDW Standard Deviation 45.0 fL RDW Coefficient of Variation 13.5 % Immature Granulocyte % (Auto) 0.6 % Immature Granulocyte # (Auto) 0.06 K/uL Red Blood Cell Morphology Unremarkable Sodium Level 135 mmol/L Potassium Level 5.2 mmol/L Chloride Level 105 mmol/L Carbon Dioxide Level 19 mmol/L Anion Gap 12.0 mmol/L Blood Urea Nitrogen 87 mg/dl Creatinine 4.70 mg/dl Est Creatinine Clear Calc Drug Dose 7.6 ml/min Estimated GFR () 9.3 Estimated GFR (Non- 8.0 BUN/Creatinine Ratio 18.5 Random Glucose 98 mg/dl Calcium Level 7.8 mg/dl Magnesium Level 2.3 mg/dl Test 04/18/17 13:30 04/18/17 16:31 Urine Collection Time 24 HOURS Urine Total Volume 1600 mL Urine Creatinine 43.5 mg/dl Urine Creatinine 24 Hour 0.7 GM/24 HR Urine Creatinine Clearance 24 Hour 10.8 ml/min Urine Total Protein 24 Hour 1616 MG/24 HR Urine Total Protein 101.0 mg/dl Bedside Glucose 134 mg/dl Assessment and Plan 82yo female with: 1. e. coli septicemia - repeat blood cx's today to ensure sterility. Day #3 of antibiotics. Will need [address] abd/pelvis without nidus for infection (renal stone, etc). Urine is the presumed source for the bacteremia, but urine culture negative. Will check RUQ u/s to ensure the gall bladder was not the source. Leave on rocephin for now; if renal function improves then change to cipro renally dosed. 2. acute kidney injury in setting of CKD stage 5 - nephrology input appreciated. GUSTAVO due to ATN from #1? CKD stage 5 is due to diabetic nephropathy. BMP in am. [place]. Receiving gentle diuresis. 3. acute/chronic diastolic CHF - appears volume overloaded, likely due to #2. Lasix once daily but may need larger dose or BID dosing. 4. T2DM - controlled with basal/bolus regimen. 5. DVT proph - heparin BID. 6. CAD with prior CABG - noted; no evidence of ischemia/ACS at this time. 7. HTN - mildly uncontrolled; if still high in AM then adjust meds. 8. pacemaker status - noted. 9. positive troponin - myocardial demand ischemia in setting of #1. 10. anemia - 2nd to CKD - if H/H drop further then Tx PRBCs, especially if Hb approaches 7. s/p epo by nephrology. hemoccult stools. 11. constipation - add miralax. PT, OT working with patient; will need rehab Continued [facility] stay due to: voiding difficulties, ambulation difficulties, multiple IV medications needed Discharge planning: half-way facility (vs [facility])
[2017-04-18] MEDS: ALPRAZOLAM 0.5 MG TAB PO SCH (21:02)
[2017-04-18] MEDS: INSULIN GLARGINE SOLOSTAR 100 UNITS/ML 3 ML PEN SC SCH (21:07)
[2017-04-19] VITALS (7 sets, daily range): BP systolic 111–186; BP diastolic 46–64; PULSE 57–61; TEMP 36.6–37.2; O2SAT 93–96
[2017-04-19 06:50] LABS: CALCIUM 8.3 mg/dl (8.5-10.1); CREATININE 4.65 mg/dl (0.60-1.20); POTASSIUM 4.7 mmol/L (3.5-5.1)
[2017-04-19] MEDS: OMEGA-3 (PURIFIED FISH OIL) 1 GM CAP PO SCH (08:49)
[2017-04-19] MEDS: CEFTRIAXONE SOD INJ 1,000 MG in DEXTROSE 5% 50ML 50 ML IV SCH (08:49)
[2017-04-19] MEDS: EZETIMIBE 10MG TAB PO SCH (08:49)
[2017-04-19] MEDS: ISOSORBIDE MONONITRATE 60 MG TABCR PO SCH (08:49)
[2017-04-19] MEDS: LABETALOL HCL 200 MG TAB PO SCH ×2 (08:49→21:24)
[2017-04-19] MEDS: ASPIRIN 81 MG ECTAB PO SCH (08:49)
[2017-04-19] MEDS: POLYETHYLENE (MIRALAX) 17 GM PACK PO SCH ×2 (08:50→20:20)
[2017-04-19] MEDS: SENNA 8.6 MG TAB PO SCH (08:50)
[2017-04-19] MEDS: INSULIN ASPART 100 UNITS/ML 3 ML PEN SC SCH ×4 (08:53→20:19)
[2017-04-19] MEDS: HEPARIN SOD 5000 UNIT/0.5 ML CARP SQ SCH ×2 (08:54→20:19)
[2017-04-19] MEDS ORDERED: NIFEdipine 30 MG CR TAB PO SCH (09:00)
[2017-04-19] MEDS: AMLODIPINE BESYLATE 5 MG TAB PO SCH (11:00)
--- NOTE | 2017-04-19 11:40 | Nephrology Progress Note ---
Nephrology Progress Note Date of Service Apr 19, 2017. Chief Complaint F/U for GUSTAVO Subjective Nava Was seen and examined in her room this morning. Overall she is feeling better. Denies any shortness of breath or chest pain. Urine output improved, but no improvement in renal function, creatinine 4.7 and eGFR less than 10. Blood pressure has been stable and electrolyte acceptable. Review of Systems A complete review of systems was performed. Pertinent positives are noted above. All other systems are negative. Vital Signs Last 8 Hrs Date Time Temp Pulse Resp B/P (MAP) Pulse Ox O2 Delivery O2 Flow Rate FiO2 04/19/17 07:30 36.9 57 20 186/63 (104) 93 Room Air 04/19/17 04:15 Room Air 04/19/17 03:40 36.9 61 18 161/62 (95) 93 Room Air Last Recorded Weight Weight (Kilograms): 70.800 Physical Exam GENERAL: elderly female,, AAA x 3, pleasant, ill appearing, not in any distress. NECK: Supple, no JVD. RESPIRATORY: Normal breathing efforts, no accessory muscle use, bibasilar rales. CARDIOVASCULAR: S1, S2 normal, rate rhythm regular. EXTREMITY: No lower extremity edema NEURO: speech fluent. PSYCHIATRY: Normal mood and judgment Family History Patient reports no known family medical history. Social History Smoking Status: Never smoker Drug Use: none Marital Status: Housing Status: lives with family Occupation: retired Laboratory Results Past 24 Hours 04/19/17 05:35 Test 04/18/17 13:30 04/18/17 16:31 04/18/17 20:03 04/19/17 05:35 Urine Collection Time 24 HOURS Urine Total Volume 1600 mL Urine Creatinine 43.5 mg/dl Urine Creatinine 24 Hour 0.7 GM/24 HR (0.6-1.8) Urine Creatinine Clearance 24 Hour 10.8 ml/min (88-128) Urine Total Protein 24 Hour 1616 MG/24 HR (0-150) Urine Total Protein 101.0 mg/dl (0-11.9) Bedside Glucose 134 mg/dl (70-90) 155 mg/dl (70-90) Anion Gap 8.0 mmol/L (3-11) Est Creatinine Clear Calc Drug Dose 7.7 ml/min Estimated GFR () 9.4 Estimated GFR (Non- 8.1 BUN/Creatinine Ratio 19.9 (10-20) Calcium Level 8.3 mg/dl (8.5-10.1) Test 04/19/17 06:35 Bedside Glucose 136 mg/dl (70-90) Allergies Coded Allergies: Carbamazepine (Verified Allergy, Intermediate, RASH, 04/14/17) Carvedilol (Verified Allergy, Intermediate, DIZZINESS, VISUAL DISTURBANCES , 04/14/17) Erythromycin (Verified Allergy, Intermediate, RASH, 04/14/17) Statins (Verified Adverse Reaction, Intermediate, MUSCLE ACHES, 04/14/17) Medications Current Inpatient Medications Medications (Trade) Dose Ordered Sig/Haja Route Start Time Stop Time Status Last Admin Dose Admin Alprazolam (Xanax Tab) 0.5 mg HS PO 04/14/17 21:00 05/14/17 20:59 04/18/17 21:02 0.5 MG Aspirin (Ecotrin Tab) 81 mg QAM PO 04/15/17 09:00 05/15/17 08:59 04/19/17 08:49 81 MG EZETIMIBE (Zetia Tab) 10 mg QAM PO 04/15/17 09:00 05/15/17 08:59 04/19/17 08:49 10 MG Hydralazine HCl (Apresoline Tab) 100 mg TID PO 04/14/17 21:00 05/14/17 20:59 04/19/17 08:50 100 MG Isosorbide Mononitrate (Imdur Ext Rel Tab) 60 mg QAM PO 04/15/17 09:00 05/15/17 08:59 04/19/17 08:49 60 MG Labetalol HCl (Normodyne Tab) 200 mg BID PO 04/14/17 21:00 05/14/17 20:59 04/19/17 08:49 200 MG Fish Oil ([place]-3 (Purified Fish Oil) Cap) 1 gm DAILY PO 04/15/17 09:00 05/15/17 08:59 04/19/17 08:49 1 GM Insulin Glargine (Lantus Solostar Pen) 20 units DAILY@2100 SC 04/14/17 21:00 05/14/17 20:59 04/18/17 21:07 20 UNITS Heparin Sodium (Porcine) (Heparin Sq 5000 Unit/0.5ml) 5,000 unit Q12@0900,2100 SQ 04/14/17 21:00 05/14/17 20:59 04/19/17 08:54 5,000 UNIT Acetaminophen (Tylenol Tab) 650 mg Q4H PRN PO 04/14/17 16:15 05/14/17 16:14 04/18/17 15:20 650 MG Magnesium Hydroxide (Milk Of Magnesia Susp) 30 ml Q12H PRN PO 04/14/17 16:15 05/14/17 16:14 Ondansetron HCl (Zofran Inj) 4 mg Q6H PRN IV 04/14/17 16:15 05/14/17 16:14 04/16/17 07:49 4 MG Polyethylene (Miralax Powder Packet) 17 gm DAILY PRN PO 04/14/17 16:15 05/14/17 16:14 Insulin Aspart (novoLOG ASPART) SLIDING SCALE If C... ACHS SC 04/14/17 21:00 05/14/17 20:59 04/19/17 08:53 1 UNITS Glucose (Glucose 40% Gel) 15-30 GRAMS 15 GRAMS... UD PRN PO 04/14/17 16:15 05/14/17 16:14 Glucose (Glucose Chew Tab) 4-8 Tablets 4 Tabl... UD PRN PO 04/14/17 16:15 05/14/17 16:14 Dextrose (Dextrose 50% 50ML Syringe) 25-50ML OF 50% DW IV FOR... UD PRN IV 04/14/17 16:15 05/14/17 16:14 Glucagon (Glucagon Inj) 1 mg UD PRN SQ 04/14/17 16:15 05/14/17 16:14 Labetalol HCl (Normodyne IV) 20 mg Q6H PRN IV 04/14/17 16:45 05/14/17 16:44 04/14/17 18:13 20 MG Al Hydrox/Mg Hydrox/Simethicone (Maalox Max Susp) 15 ml Q6H PRN PO 04/14/17 16:45 05/14/17 16:44 04/15/17 21:20 15 ML Metoclopramide HCl (Reglan Inj) 5 mg DAILY PRN IV 04/15/17 22:00 05/15/17 21:59 Ceftriaxone Sodium 1000 mg/ Dextrose 60 ml @ 100 mls/hr Q24H IV 04/16/17 08:00 04/26/17 07:59 04/19/17 08:49 100 MLS/HR Famotidine (Pepcid Tab) 20 mg DAILY@1800 PO 04/17/17 18:00 05/17/17 17:59 04/18/17 18:02 20 MG Polyethylene (Miralax Powder Packet) 17 gm BID PO 04/18/17 11:15 05/18/17 11:14 04/18/17 15:22 17 GM Senna (Senokot Tab) 8.6 mg QAM PO 04/18/17 11:15 05/18/17 11:14 04/18/17 15:21 8.6 MG Nifedipine (Procardia Xl Tab) 30 mg QAM PO 04/19/17 09:00 05/19/17 08:59 04/19/17 11:01 30 MG Amlodipine Besylate (Norvasc Tab) 5 mg QAM PO 04/19/17 09:00 05/19/17 08:59 04/19/17 11:00 5 MG Impression (1) Accelerated hypertension (2) Acute renal insufficiency (3) Chronic kidney disease (4) Nausea and vomiting Ms. Dominguez is an 82-year-old female with longstanding DM II, hyperlipidemia, HTN, ASCVD s/p CABG and pacemaker placement, as well as CKD. She has baseline CKD III A3 with a creatinine of 1.7 - 2.0. 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 Urine protein excretion is in excess of 7 grams per day. Based on multiple discussions with Dr. Noyola and al, Nava has expressed that she would consider hemodialysis if indicated. She was admitted with persistent GUSTAVO as well as accelerated hypertension. Renal US report 04/05: 10.5 cm kidneys w/ mild cortical atrophy, Renal artery doppler was negative for large vessel JASMINE. High resistive indices likely related to small vessel disease and ATN. 24 hour urine protein 7.5g. Likely due to diabetic nephropathy and hypertension, Patient did not tolerate LISSETH inhibitor due to worsening kidney function. Will avoid LISSETH / ARB. 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 Can repeat with outpatient follow up. Recommendations --renal function stable, Creatinine 4.7 without any significant improvement however, electrolyte remain acceptable --UO decent , has been net negative > 1 L, will hold lasix for now and use as needed for decrease in UO or volume overload --medina catheter for accurate I's and O's --Metabolic profile otherwise acceptable for now --continue on Renal diet with potassium and sodium restriction --Monitor renal profile daily --no emergency need for dialysis at this point, assess patient daily, if renal function continue to worsen may need to start on dialysis in next 24-48 hours, if no improvement by tomorrow, will plan on starting on HD
[2017-04-19] MEDS: ACETAMINOPHEN 325 MG TAB PO PRN (14:22)
[2017-04-19] MEDS ORDERED: ANCEF PHARMACY CONSULT IN PROGRESS PRN (15:45)
[2017-04-19] MEDS: FAMOTIDINE 20 MG TAB PO SCH (17:09)
--- NOTE | 2017-04-19 19:19 | Progress Note ---
Subjective Date of Service: Apr 19, 2017. Subjective Pt evaluation today including: conversation w/ patient, conversation w/ family (daughter, by phone), physical exam, chart review, lab review, review of inpatient medication list Pain: denies PO Intake: fair Voiding: medina catheter in place tele stable overnight finally had a bowel movement denies fevers or chills overall feels "ok" - she is relieved that her 2nd set of blood cx's are negative Problem List Medical Problems: (1) Acute kidney failure Status: Acute (2) Cholelithiasis Status: Acute (3) Dehydration Status: Acute (4) HTN (hypertension) Status: Acute (5) Hypertensive emergency Status: Acute (6) Influenza Status: Acute (7) Nausea and vomiting Status: Acute (8) Proteinuria Status: Acute Review of Systems Constitutional: + fatigue, No fever, No chills Respiratory: + dyspnea on exertion (mild, but no worse than yesterday), No cough, No dyspnea at rest Cardiac: No chest pain Abdomen: No pain, No nausea, No vomiting, No constipation Objective Vital Signs Date Time Temp Pulse Resp B/P (MAP) Pulse Ox O2 Delivery O2 Flow Rate FiO2 04/19/17 16:00 Room Air 04/19/17 15:58 36.6 60 16 171/64 (99) 94 Room Air 04/19/17 14:18 60 170/62 (98) 95 Room Air 04/19/17 12:00 Room Air 04/19/17 10:39 36.7 60 171/55 (93) 96 Room Air 04/19/17 08:00 Room Air 04/19/17 07:30 36.9 57 20 186/63 (104) 93 Room Air 04/19/17 04:15 Room Air 04/19/17 03:40 36.9 61 18 161/62 (95) 93 Room Air 04/19/17 00:15 Room Air 04/18/17 23:18 37.2 60 17 165/61 (95) 94 Room Air 04/18/17 20:57 36.7 62 16 167/68 (101) 94 Room Air 04/18/17 20:00 Room Air Physical Exam General Appearance: no apparent distress ENT: pharynx normal Neck: + JVD (mild) Respiratory/Chest: no respiratory distress, no accessory muscle use, + rales ( bases) Cardiovascular: regular rate, rhythm, no gallop, + systolic murmur (2/6 RUSB and LLSB) Abdomen: normal bowel sounds, non tender, soft, no organomegaly Extremities: + pedal edema (trace ) Neurologic/Psychiatric: alert, oriented x 3 Laboratory Results Last 24 Hours Test 04/18/17 20:03 04/19/17 05:35 04/19/17 06:35 04/19/17 11:22 Bedside Glucose 155 mg/dl 136 mg/dl 190 mg/dl Sodium Level 134 mmol/L Potassium Level 4.7 mmol/L Chloride Level 105 mmol/L Carbon Dioxide Level 21 mmol/L Anion Gap 8.0 mmol/L Blood Urea Nitrogen 93 mg/dl Creatinine 4.65 mg/dl Est Creatinine Clear Calc Drug Dose 7.7 ml/min Estimated GFR () 9.4 Estimated GFR (Non- 8.1 BUN/Creatinine Ratio 19.9 Random Glucose 130 mg/dl Calcium Level 8.3 mg/dl Test 04/19/17 12:41 04/19/17 16:28 Stool Occult Blood NEGATIVE Bedside Glucose 211 mg/dl Assessment and Plan 82yo female with: 1. e. coli septicemia - repeat blood cx's thus far negative. Day #4 of antibiotics. Will need 14 days of Rx. Agree with pharmacy recommendation to de-escalate - I'm ok with IV ancef; d/c rocephin. CT abd/pelvis without nidus for infection (renal stone, etc). Urine is the presumed source for the bacteremia. Although urine culture was negative u/a was suspicious for UTI. RUQ u/s and CT abd with gallstones but no acute findings to suggest cholecystitis; thus, urine likely source. 2. acute kidney injury in setting of CKD stage 5 - nephrology input appreciated. GUSTAVO due to ATN from #1? CKD stage 5 is due to diabetic nephropathy. BMP without much change in creatinine today. Cont medina. Nephrology has d/c the lasix for now. 3. acute/chronic diastolic CHF - likely has mild volume overload still but O2 sats stable. Follow for now. 4. T2DM - controlled with basal/bolus regimen. Adjust as needed. 5. DVT proph - heparin BID. 6. CAD with prior CABG - noted; no evidence of ischemia/ACS at this time. 7. HTN - mildly uncontrolled; add calcium channel jose. 8. pacemaker status - noted. 9. positive troponin - myocardial demand ischemia in setting of #1. 10. anemia - 2nd to CKD - if H/H drop further then Tx PRBCs, especially if Hb approaches 7. s/p epo by nephrology. hemoccult was negative. CBC in am. 11. constipation - improved w/ miralax. PT, OT recommending rehab daughter updated by phone today if stable overnight on tele then med/surg tomorrow Continued [facility] stay due to: voiding difficulties, ambulation difficulties, multiple IV medications needed, other (acute kidney injury/ARF) Discharge planning: [facility]pc facility (vs [facility])
[2017-04-19] MEDS: INSULIN GLARGINE SOLOSTAR 100 UNITS/ML 3 ML PEN SC SCH (20:19)
[2017-04-19] MEDS: ALPRAZOLAM 0.5 MG TAB PO SCH (21:23)
[2017-04-20] VITALS (7 sets, daily range): BP systolic 132–191; BP diastolic 52–68; PULSE 59–76; TEMP 36.5–36.7; O2SAT 93–98
[2017-04-20] MEDS: ACETAMINOPHEN 325 MG TAB PO PRN (02:25)
[2017-04-20 06:09] LABS: HEMATOCRIT 24.2 % (37-47); HEMOGLOBIN 8.3 g/dL (12.0-16.0); MEAN CELL VOLUME 88.6 fL (80-100); MEAN CORPUSCULAR HEMOGLOBIN 30.4 pg (25-34); MEAN CORPUSCULAR HGB CONC 34.3 g/dl (32-36); MEAN PLATELET VOLUME 9.2 fL (7.4-10.4); PLATELET COUNT 180 K/uL (130-400); RED CELL DISTRIBUTION WIDTH CV 13.4 % (11.5-14.5); RED CELL DISTRIBUTION WIDTH SD 42.9 fL (36.4-46.3); WHITE BLOOD COUNT 9.16 K/uL (4.8-10.8)
[2017-04-20 06:38] LABS: CALCIUM 8.2 mg/dl (8.5-10.1); CREATININE 4.2 mg/dl (0.60-1.20); POTASSIUM 4.4 mmol/L (3.5-5.1)
[2017-04-20] MEDS ORDERED: CEFAZOLIN IV 2,000 MG in SYRINGE 0 ML IV SCH (07:00)
[2017-04-20] MEDS: INSULIN ASPART 100 UNITS/ML 3 ML PEN SC SCH ×4 (07:43→21:18)
[2017-04-20] MEDS: HEPARIN SOD 5000 UNIT/0.5 ML CARP SQ SCH ×2 (07:44→21:19)
[2017-04-20] MEDS: AMLODIPINE BESYLATE 5 MG TAB PO SCH (07:45)
[2017-04-20] MEDS: ISOSORBIDE MONONITRATE 60 MG TABCR PO SCH (07:46)
[2017-04-20] MEDS: SENNA 8.6 MG TAB PO SCH (07:46)
[2017-04-20] MEDS: LABETALOL HCL 200 MG TAB PO SCH ×2 (07:46→21:16)
[2017-04-20] MEDS: ASPIRIN 81 MG ECTAB PO SCH (07:46)
[2017-04-20] MEDS: EZETIMIBE 10MG TAB PO SCH (07:46)
[2017-04-20] MEDS: OMEGA-3 (PURIFIED FISH OIL) 1 GM CAP PO SCH (07:47)
[2017-04-20] MEDS: POLYETHYLENE (MIRALAX) 17 GM PACK PO SCH ×2 (07:47→21:00)
--- NOTE | 2017-04-20 08:13 | Nephrology Progress Note ---
Nephrology Progress Note Date of Service Apr 20, 2017. Chief Complaint F/U for GUSTAVO Subjective Nava was seen and examined in her room this morning. Overall she is feeling well. Creatinine has been stable over last few days now seems to be slowly improving, 4.2 this morning. Remain non-oliguric, has been net negative of diuretics. Blood pressure stable, other electrolyte electively acceptable. Review of Systems A complete review of systems was performed. Pertinent positives are noted above. All other systems are negative. Vital Signs Last 8 Hrs Date Time Temp Pulse Resp B/P (MAP) Pulse Ox O2 Delivery O2 Flow Rate FiO2 04/20/17 08:04 36.6 76 18 152/52 (85) 98 04/20/17 04:00 Room Air 04/20/17 03:53 36.6 60 18 132/58 (82) 94 Room Air Last Recorded Weight Weight (Kilograms): 70.900 Physical Exam GENERAL: elderly female,, AAA x 3, pleasant, ill appearing, not in any distress. NECK: Supple, no JVD. RESPIRATORY: Normal breathing efforts, no accessory muscle use, bibasilar rales. CARDIOVASCULAR: S1, S2 normal, rate rhythm regular. EXTREMITY: No lower extremity edema NEURO: speech fluent. PSYCHIATRY: Normal mood and judgment Family History Patient reports no known family medical history. Social History Smoking Status: Never smoker Drug Use: none Marital Status: Housing Status: lives with family Occupation: retired Laboratory Results Past 24 Hours 04/20/17 05:43 04/20/17 05:43 Test 04/19/17 11:22 04/19/17 12:41 04/19/17 16:28 04/19/17 20:14 Bedside Glucose 190 mg/dl (70-90) 211 mg/dl (70-90) 170 mg/dl (70-90) Stool Occult Blood NEGATIVE (NEGATIVE) Test 04/20/17 05:43 04/20/17 07:20 Red Blood Count 2.73 M/uL (4.2-5.4) Mean Corpuscular Volume 88.6 fL (80-100) Mean Corpuscular Hemoglobin 30.4 pg (25-34) Mean Corpuscular Hemoglobin Concent 34.3 g/dl (32-36) RDW Standard Deviation 42.9 fL (36.4-46.3) RDW Coefficient of Variation 13.4 % (11.5-14.5) Mean Platelet Volume 9.2 fL (7.4-10.4) Anion Gap 11.0 mmol/L (3-11) Est Creatinine Clear Calc Drug Dose 8.5 ml/min Estimated GFR () 10.6 Estimated GFR (Non- 9.2 BUN/Creatinine Ratio 21.5 (10-20) Calcium Level 8.2 mg/dl (8.5-10.1) Bedside Glucose 117 mg/dl (70-90) Allergies Coded Allergies: Carbamazepine (Verified Allergy, Intermediate, RASH, 04/14/17) Carvedilol (Verified Allergy, Intermediate, DIZZINESS, VISUAL DISTURBANCES , 04/14/17) Erythromycin (Verified Allergy, Intermediate, RASH, 04/14/17) Statins (Verified Adverse Reaction, Intermediate, MUSCLE ACHES, 04/14/17) Medications Current Inpatient Medications Medications (Trade) Dose Ordered Sig/Haja Route Start Time Stop Time Status Last Admin Dose Admin Alprazolam (Xanax Tab) 0.5 mg HS PO 04/14/17 21:00 05/14/17 20:59 04/19/17 21:23 0.5 MG Aspirin (Ecotrin Tab) 81 mg QAM PO 04/15/17 09:00 05/15/17 08:59 04/20/17 07:46 81 MG EZETIMIBE (Zetia Tab) 10 mg QAM PO 04/15/17 09:00 05/15/17 08:59 04/20/17 07:46 10 MG Hydralazine HCl (Apresoline Tab) 100 mg TID PO 04/14/17 21:00 05/14/17 20:59 04/20/17 07:47 100 MG Isosorbide Mononitrate (Imdur Ext Rel Tab) 60 mg QAM PO 04/15/17 09:00 05/15/17 08:59 04/20/17 07:46 60 MG Labetalol HCl (Normodyne Tab) 200 mg BID PO 04/14/17 21:00 05/14/17 20:59 04/20/17 07:46 200 MG Fish Oil ([place]-3 (Purified Fish Oil) Cap) 1 gm DAILY PO 04/15/17 09:00 05/15/17 08:59 04/20/17 07:47 1 GM Insulin Glargine (Lantus Solostar Pen) 20 units DAILY@2100 SC 04/14/17 21:00 05/14/17 20:59 04/19/17 20:19 20 UNITS Heparin Sodium (Porcine) (Heparin Sq 5000 Unit/0.5ml) 5,000 unit Q12@0900,2100 SQ 04/14/17 21:00 05/14/17 20:59 04/20/17 07:44 5,000 UNIT Acetaminophen (Tylenol Tab) 650 mg Q4H PRN PO 04/14/17 16:15 05/14/17 16:14 04/20/17 02:25 650 MG Magnesium Hydroxide (Milk Of Magnesia Susp) 30 ml Q12H PRN PO 04/14/17 16:15 05/14/17 16:14 Ondansetron HCl (Zofran Inj) 4 mg Q6H PRN IV 04/14/17 16:15 05/14/17 16:14 04/16/17 07:49 4 MG Polyethylene (Miralax Powder Packet) 17 gm DAILY PRN PO 04/14/17 16:15 05/14/17 16:14 Insulin Aspart (novoLOG ASPART) SLIDING SCALE If C... ACHS SC 04/14/17 21:00 05/14/17 20:59 04/20/17 07:43 1 UNITS Glucose (Glucose 40% Gel) 15-30 GRAMS 15 GRAMS... UD PRN PO 04/14/17 16:15 05/14/17 16:14 Glucose (Glucose Chew Tab) 4-8 Tablets 4 Tabl... UD PRN PO 04/14/17 16:15 05/14/17 16:14 Dextrose (Dextrose 50% 50ML Syringe) 25-50ML OF 50% DW IV FOR... UD PRN IV 04/14/17 16:15 05/14/17 16:14 Glucagon (Glucagon Inj) 1 mg UD PRN SQ 04/14/17 16:15 05/14/17 16:14 Labetalol HCl (Normodyne IV) 20 mg Q6H PRN IV 04/14/17 16:45 05/14/17 16:44 04/14/17 18:13 20 MG Al Hydrox/Mg Hydrox/Simethicone (Maalox Max Susp) 15 ml Q6H PRN PO 04/14/17 16:45 05/14/17 16:44 04/15/17 21:20 15 ML Metoclopramide HCl (Reglan Inj) 5 mg DAILY PRN IV 04/15/17 22:00 05/15/17 21:59 Famotidine (Pepcid Tab) 20 mg DAILY@1800 PO 04/17/17 18:00 05/17/17 17:59 04/19/17 17:09 20 MG Polyethylene (Miralax Powder Packet) 17 gm BID PO 04/18/17 11:15 05/18/17 11:14 04/18/17 15:22 17 GM Senna (Senokot Tab) 8.6 mg QAM PO 04/18/17 11:15 05/18/17 11:14 04/20/17 07:46 8.6 MG Amlodipine Besylate (Norvasc Tab) 5 mg QAM PO 04/19/17 09:00 05/19/17 08:59 04/20/17 07:45 5 MG Miscellaneous Information 1 ea UD PRN N/A 04/19/17 15:45 05/19/17 15:44 Cefazolin Sodium 1000 mg/Syringe 5 ml @ 1.667 mls/ min Q24H IV 04/21/17 07:00 04/29/17 23:59 Impression (1) Accelerated hypertension (2) Acute renal insufficiency (3) Chronic kidney disease (4) Nausea and vomiting Ms. Dominguez is an 82-year-old female with longstanding DM II, hyperlipidemia, HTN, ASCVD s/p CABG and pacemaker placement, as well as CKD. She has baseline CKD III A3 with a creatinine of 1.7 - 2.0. 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 Urine protein excretion is in excess of 7 grams per day. Based on multiple discussions with Dr. Noyola and me, Nava has expressed that she would consider hemodialysis if indicated. She was admitted with persistent GUSTAVO as well as accelerated hypertension. Renal US report 04/05: 10.5 cm kidneys w/ mild cortical atrophy, Renal artery doppler was negative for large vessel JASMINE. High resistive indices likely related to small vessel disease and ATN. 24 hour urine protein 7.5g. Likely due to diabetic nephropathy and hypertension, Patient did not tolerate LISSETH inhibitor due to worsening kidney function. Will avoid LISSETH / ARB. 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 Can repeat with outpatient follow up. Recommendations --slight improvement in renal function, continues to have decent urine output off of diuretics, net negative. --will monitor over the weekend and hopefully renal function will improve somewhat and not have to start on dialysis at least this admission. --medina catheter for accurate I's and O's --Metabolic profile otherwise acceptable for now --continue on Renal diet with potassium and sodium restriction --Monitor renal profile daily Will follow
[2017-04-20] MEDS: FAMOTIDINE 20 MG TAB PO SCH (17:40)
--- NOTE | 2017-04-20 19:19 | Progress Note ---
Subjective Date of Service: Apr 20, 2017. Subjective Pt evaluation today including: conversation w/ patient, conversation w/ family (son at bedside), physical exam, chart review, lab review Pain: denies PO Intake: fair at best Voiding: medina catheter in place tele - paced rhythm overnight denies any complaints very mild CHAIDEZ but this is chronic & at baseline Problem List Medical Problems: (1) Acute kidney failure Status: Acute (2) Cholelithiasis Status: Acute (3) Dehydration Status: Acute (4) HTN (hypertension) Status: Acute (5) Hypertensive emergency Status: Acute (6) Influenza Status: Acute (7) Nausea and vomiting Status: Acute (8) Proteinuria Status: Acute Review of Systems Respiratory: No cough, No dyspnea at rest Cardiac: No chest pain, No orthopnea Abdomen: No pain, No constipation Objective Vital Signs Date Time Temp Pulse Resp B/P (MAP) Pulse Ox O2 Delivery O2 Flow Rate FiO2 04/20/17 16:00 Room Air 04/20/17 13:36 36.5 59 17 156/68 (97) 95 Room Air 04/20/17 12:04 36.5 60 16 136/58 (84) 95 Room Air 04/20/17 12:00 Room Air 04/20/17 08:04 36.6 76 18 152/52 (85) 98 04/20/17 08:00 Room Air 04/20/17 04:00 Room Air 04/20/17 03:53 36.6 60 18 132/58 (82) 94 Room Air 04/20/17 00:00 95 Room Air 04/19/17 23:40 36.8 60 16 111/46 (67) 95 Room Air 04/19/17 20:00 Room Air 04/19/17 19:54 37.2 60 18 158/58 (91) 93 Room Air Physical Exam General Appearance: no apparent distress ENT: pharynx normal Neck: + JVD (subtle) Respiratory/Chest: no respiratory distress, no accessory muscle use, + rales ( bases - mild) Cardiovascular: regular rate, rhythm, no gallop, + systolic murmur (2/6 ) Abdomen: normal bowel sounds, non tender, soft, no organomegaly Extremities: + pedal edema (trace b/l ) Neurologic/Psychiatric: alert, normal mood/affect, oriented x 3 Laboratory Results Last 24 Hours Test 04/19/17 20:14 04/20/17 05:43 04/20/17 07:20 04/20/17 11:10 Bedside Glucose 170 mg/dl 117 mg/dl 207 mg/dl White Blood Count 9.16 K/uL Red Blood Count 2.73 M/uL Hemoglobin 8.3 g/dL Hematocrit 24.2 % Mean Corpuscular Volume 88.6 fL Mean Corpuscular Hemoglobin 30.4 pg Mean Corpuscular Hemoglobin Concent 34.3 g/dl RDW Standard Deviation 42.9 fL RDW Coefficient of Variation 13.4 % Platelet Count 180 K/uL Mean Platelet Volume 9.2 fL Sodium Level 137 mmol/L Potassium Level 4.4 mmol/L Chloride Level 107 mmol/L Carbon Dioxide Level 20 mmol/L Anion Gap 11.0 mmol/L Blood Urea Nitrogen 90 mg/dl Creatinine 4.20 mg/dl Est Creatinine Clear Calc Drug Dose 8.5 ml/min Estimated GFR () 10.6 Estimated GFR (Non- 9.2 BUN/Creatinine Ratio 21.5 Random Glucose 115 mg/dl Calcium Level 8.2 mg/dl Test 04/20/17 16:44 Bedside Glucose 143 mg/dl Assessment and Plan 82yo female with: 1. e. coli septicemia - repeat blood cx's thus far negative. Resolving nicely. Day #5 of antibiotics. Will need 14 days of Rx. Cont IV ancef for now. CT abd/pelvis without nidus for infection (renal stone, etc). Urine is the presumed source for the bacteremia. Although urine culture was negative u/a was suspicious for UTI. RUQ u/s and CT abd with gallstones but no acute findings to suggest cholecystitis; thus, urine likely source. 2. acute kidney injury in setting of CKD stage 5 - nephrology input appreciated. Suspect GUSTAVO was due to ATN from #1. CKD stage 5 is due to diabetic nephropathy. BMP today with modest improvement in creatinine. Cont medina. Nephrology has d/c the lasix for now. 3. acute/chronic diastolic CHF - likely has mild volume overload but O2 sats stable and minimal symptoms. Follow for now. 4. T2DM - controlled with basal/bolus regimen. 5. DVT proph - heparin BID. 6. CAD with prior CABG - noted; no evidence of ischemia/ACS at this time. 7. HTN - improved control w/ CCB. 8. pacemaker status - noted. 9. positive troponin - myocardial demand ischemia in setting of #1. 10. anemia - 2nd to CKD - H/H stable at this time. s/p epo by nephrology. hemoccult was negative. 11. constipation - improved w/ miralax. PT, OT recommending rehab daughter updated by phone 04/19/17 and son updated at bedside this evening d/c tele move to med/surg Continued [facility] stay due to: voiding difficulties, ambulation difficulties, multiple IV medications needed, other (acute kidney injury/ARF) Discharge planning: snf facility (vs [facility])
[2017-04-20] MEDS: ALPRAZOLAM 0.5 MG TAB PO SCH (21:16)
[2017-04-20] MEDS: INSULIN GLARGINE SOLOSTAR 100 UNITS/ML 3 ML PEN SC SCH (21:18)
[2017-04-21] MEDS: CEFAZOLIN IV 1,000 MG in SYRINGE 0 ML IV SCH (06:22)
[2017-04-21 07:54] VITALS: BP 176/64; PULSE 60; TEMP 36.8; O2SAT 94
[2017-04-21] MEDS: INSULIN ASPART 100 UNITS/ML 3 ML PEN SC SCH ×4 (08:19→21:43)
[2017-04-21] MEDS: EZETIMIBE 10MG TAB PO SCH (08:21)
[2017-04-21] MEDS: AMLODIPINE BESYLATE 5 MG TAB PO SCH (08:21)
[2017-04-21] MEDS: OMEGA-3 (PURIFIED FISH OIL) 1 GM CAP PO SCH (08:21)
[2017-04-21] MEDS: ISOSORBIDE MONONITRATE 60 MG TABCR PO SCH (08:21)
[2017-04-21] MEDS: LABETALOL HCL 200 MG TAB PO SCH ×2 (08:21→21:39)
[2017-04-21] MEDS: ASPIRIN 81 MG ECTAB PO SCH (08:21)
[2017-04-21] MEDS: SENNA 8.6 MG TAB PO SCH (08:22)
[2017-04-21] MEDS: POLYETHYLENE (MIRALAX) 17 GM PACK PO SCH ×2 (08:22→21:00)
[2017-04-21] MEDS: HEPARIN SOD 5000 UNIT/0.5 ML CARP SQ SCH ×2 (08:25→21:45)
[2017-04-21 08:27] LABS: CALCIUM 8.4 mg/dl (8.5-10.1); CREATININE 3.72 mg/dl (0.60-1.20); POTASSIUM 4.3 mmol/L (3.5-5.1)
[2017-04-21] MEDS ORDERED: AMLODIPINE BESYLATE 5 MG TAB PO ONE (09:00)
[2017-04-21] MEDS ORDERED: RANITIDINE HCL 150 MG TAB PO ONE (12:30)
--- NOTE | 2017-04-21 13:22 | Nephrology Progress Note ---
Nephrology Progress Note Date of Service Apr 21, 2017. Chief Complaint F/U for GUSTAVO Subjective Nava was seen examined in her room the room this morning. She is overall feeling them well, denies any shortness of breath, chest pain, no fever, chills , overnight events. Renal function seems to be improving, creatinine improved further to 3.7 this morning, electrolyte acceptable and urine output has been decent off of diuretics. Blood pressure running high. Review of Systems A complete review of systems was performed. Pertinent positives are noted above. All other systems are negative. Vital Signs Last 8 Hrs Date Time Temp Pulse Resp B/P (MAP) Pulse Ox O2 Delivery O2 Flow Rate FiO2 04/21/17 07:54 36.8 60 16 176/64 (101) 94 04/21/17 07:25 Room Air Last Recorded Weight Weight (Kilograms): 70.900 Physical Exam GENERAL: elderly female,, AAA x 3, pleasant, ill appearing, not in any distress. NECK: Supple, no JVD. RESPIRATORY: Normal breathing efforts, no accessory muscle use, bibasilar rales. CARDIOVASCULAR: S1, S2 normal, rate rhythm regular. EXTREMITY: No lower extremity edema NEURO: speech fluent. PSYCHIATRY: Normal mood and judgment Family History Patient reports no known family medical history. Social History Smoking Status: Never smoker Drug Use: none Marital Status: Housing Status: lives with family Occupation: retired Laboratory Results Past 24 Hours 04/21/17 07:33 Test 04/20/17 11:10 04/20/17 16:44 04/20/17 20:03 04/21/17 07:33 Bedside Glucose 207 mg/dl (70-90) 143 mg/dl (70-90) 285 mg/dl (70-90) Anion Gap 10.0 mmol/L (3-11) Est Creatinine Clear Calc Drug Dose 9.6 ml/min Estimated GFR () 12.3 Estimated GFR (Non- 10.6 BUN/Creatinine Ratio 20.4 (10-20) Calcium Level 8.4 mg/dl (8.5-10.1) Test 04/21/17 07:45 Bedside Glucose 126 mg/dl (70-90) Allergies Coded Allergies: Carbamazepine (Verified Allergy, Intermediate, RASH, 04/14/17) Carvedilol (Verified Allergy, Intermediate, DIZZINESS, VISUAL DISTURBANCES , 04/14/17) Erythromycin (Verified Allergy, Intermediate, RASH, 04/14/17) Statins (Verified Adverse Reaction, Intermediate, MUSCLE ACHES, 04/14/17) Medications Current Inpatient Medications Medications (Trade) Dose Ordered Sig/Haja Route Start Time Stop Time Status Last Admin Dose Admin Alprazolam (Xanax Tab) 0.5 mg HS PO 04/14/17 21:00 05/14/17 20:59 04/20/17 21:16 0.5 MG Aspirin (Ecotrin Tab) 81 mg QAM PO 04/15/17 09:00 05/15/17 08:59 04/21/17 08:21 81 MG EZETIMIBE (Zetia Tab) 10 mg QAM PO 04/15/17 09:00 05/15/17 08:59 04/21/17 08:21 10 MG Hydralazine HCl (Apresoline Tab) 100 mg TID PO 04/14/17 21:00 05/14/17 20:59 04/21/17 08:20 100 MG Isosorbide Mononitrate (Imdur Ext Rel Tab) 60 mg QAM PO 04/15/17 09:00 05/15/17 08:59 04/21/17 08:21 60 MG Labetalol HCl (Normodyne Tab) 200 mg BID PO 04/14/17 21:00 05/14/17 20:59 04/21/17 08:21 200 MG Fish Oil ([place]-3 (Purified Fish Oil) Cap) 1 gm DAILY PO 04/15/17 09:00 05/15/17 08:59 04/21/17 08:21 1 GM Insulin Glargine (Lantus Solostar Pen) 20 units DAILY@2100 SC 04/14/17 21:00 05/14/17 20:59 04/20/17 21:18 20 UNITS Heparin Sodium (Porcine) (Heparin Sq 5000 Unit/0.5ml) 5,000 unit Q12@0900,2100 SQ 04/14/17 21:00 05/14/17 20:59 04/21/17 08:25 5,000 UNIT Acetaminophen (Tylenol Tab) 650 mg Q4H PRN PO 04/14/17 16:15 05/14/17 16:14 04/20/17 02:25 650 MG Magnesium Hydroxide (Milk Of Magnesia Susp) 30 ml Q12H PRN PO 04/14/17 16:15 05/14/17 16:14 Ondansetron HCl (Zofran Inj) 4 mg Q6H PRN IV 04/14/17 16:15 05/14/17 16:14 04/16/17 07:49 4 MG Polyethylene (Miralax Powder Packet) 17 gm DAILY PRN PO 04/14/17 16:15 05/14/17 16:14 Insulin Aspart (novoLOG ASPART) SLIDING SCALE If C... ACHS SC 04/14/17 21:00 05/14/17 20:59 04/20/17 21:18 8 UNITS Glucose (Glucose 40% Gel) 15-30 GRAMS 15 GRAMS... UD PRN PO 04/14/17 16:15 05/14/17 16:14 Glucose (Glucose Chew Tab) 4-8 Tablets 4 Tabl... UD PRN PO 04/14/17 16:15 05/14/17 16:14 Dextrose (Dextrose 50% 50ML Syringe) 25-50ML OF 50% DW IV FOR... UD PRN IV 04/14/17 16:15 05/14/17 16:14 Glucagon (Glucagon Inj) 1 mg UD PRN SQ 04/14/17 16:15 05/14/17 16:14 Labetalol HCl (Normodyne IV) 20 mg Q6H PRN IV 04/14/17 16:45 05/14/17 16:44 04/14/17 18:13 20 MG Al Hydrox/Mg Hydrox/Simethicone (Maalox Max Susp) 15 ml Q6H PRN PO 04/14/17 16:45 05/14/17 16:44 04/15/17 21:20 15 ML Metoclopramide HCl (Reglan Inj) 5 mg DAILY PRN IV 04/15/17 22:00 05/15/17 21:59 Famotidine (Pepcid Tab) 20 mg DAILY@1800 PO 04/17/17 18:00 05/17/17 17:59 04/20/17 17:40 20 MG Polyethylene (Miralax Powder Packet) 17 gm BID PO 04/18/17 11:15 05/18/17 11:14 04/18/17 15:22 17 GM Senna (Senokot Tab) 8.6 mg QAM PO 04/18/17 11:15 05/18/17 11:14 04/20/17 07:46 8.6 MG Miscellaneous Information 1 ea UD PRN N/A 04/19/17 15:45 05/19/17 15:44 Cefazolin Sodium 1000 mg/Syringe 5 ml @ 1.667 mls/ min Q24H IV 04/21/17 07:00 04/29/17 23:59 04/21/17 06:22 1.667 MLS/MIN Amlodipine Besylate (Norvasc Tab) 10 mg QAM PO 04/22/17 09:00 05/22/17 08:59 Impression (1) Accelerated hypertension (2) Acute renal insufficiency (3) Chronic kidney disease (4) Nausea and vomiting Ms. Dominguez is an 82-year-old female with longstanding DM II, hyperlipidemia, HTN, ASCVD s/p CABG and pacemaker placement, as well as CKD. She has baseline CKD III A3 with a creatinine of 1.7 - 2.0. 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 Urine protein excretion is in excess of 7 grams per day. Based on multiple discussions with Dr. Noyola and me, Nava has expressed that she would consider hemodialysis if indicated. She was admitted with persistent GUSTAVO as well as accelerated hypertension. Renal US report 04/05: 10.5 cm kidneys w/ mild cortical atrophy, Renal artery doppler was negative for large vessel JASMINE. High resistive indices likely related to small vessel disease and ATN. 24 hour urine protein 7.5g. Likely due to diabetic nephropathy and hypertension, Patient did not tolerate LISSETH inhibitor due to worsening kidney function. Will avoid LISSETH / ARB. 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 Can repeat with outpatient follow up. Recommendations --further improvement in renal function, continues to have decent urine output off of diuretics, net negative. --continue to monitor for renal recovery as renal function continues to improve --medina catheter for accurate I's and O's --Metabolic profile otherwise acceptable for now --continue on Renal diet with potassium and sodium restriction --Monitor renal profile daily Will follow
[2017-04-21 14:15] VITALS: BP 166/57; PULSE 60
[2017-04-21] MEDS: PANTOprazole SOD 40 MG TAB PO SCH (14:48)
[2017-04-21 15:36] VITALS: BP 170/68; PULSE 61; TEMP 36.6; O2SAT 95
[2017-04-21 16:00] VITALS: O2SAT 95
[2017-04-21] MEDS ORDERED: RANITIDINE HCL 150 MG TAB PO SCH (21:00)
[2017-04-21] MEDS: ALPRAZOLAM 0.5 MG TAB PO SCH (21:38)
[2017-04-21] MEDS: INSULIN GLARGINE SOLOSTAR 100 UNITS/ML 3 ML PEN SC SCH (21:44)
--- NOTE | 2017-04-21 23:14 | Progress Note ---
Subjective Date of Service: Apr 21, 2017. Subjective Pt evaluation today including: conversation w/ patient, conversation w/ family (2 sons at bedside), physical exam, chart review, lab review, conversation w/ application consultant (nephrology) Pain: none PO Intake: poor; "no appetite" Voiding: medina catheter in place no events overnight reports ongoing anorexia some burping and some stomach upset but no pain and no nausea denies dyspnea at rest baseline CHAIDEZ is unchanged otherwise doing ok Problem List Medical Problems: (1) Acute kidney failure Status: Acute (2) Cholelithiasis Status: Acute (3) Dehydration Status: Acute (4) HTN (hypertension) Status: Acute (5) Hypertensive emergency Status: Acute (6) Influenza Status: Acute (7) Nausea and vomiting Status: Acute (8) Proteinuria Status: Acute Review of Systems Constitutional: No fever, No chills Respiratory: No cough, No sputum Cardiac: No chest pain Abdomen: + see HPI, No nausea, No vomiting, No constipation (had 2 bowel movements this am) Objective Vital Signs Date Time Temp Pulse Resp B/P (MAP) Pulse Ox O2 Delivery O2 Flow Rate FiO2 04/21/17 16:00 95 Room Air 04/21/17 15:36 36.6 61 20 170/68 (102) 95 Room Air 04/21/17 14:15 60 166/57 (93) 04/21/17 07:54 36.8 60 16 176/64 (101) 94 04/21/17 07:25 Room Air 04/21/17 00:01 Room Air Physical Exam General Appearance: no apparent distress ENT: pharynx normal Neck: no JVD Respiratory/Chest: no respiratory distress, no accessory muscle use, + crackles (mild, bases) Cardiovascular: regular rate, rhythm, no gallop Abdomen: normal bowel sounds, non tender, soft, no organomegaly Extremities: no pedal edema Neurologic/Psychiatric: alert, oriented x 3 Laboratory Results Last 24 Hours Test 04/21/17 07:33 04/21/17 07:45 04/21/17 11:34 04/21/17 16:26 Sodium Level 138 mmol/L Potassium Level 4.3 mmol/L Chloride Level 108 mmol/L Carbon Dioxide Level 20 mmol/L Anion Gap 10.0 mmol/L Blood Urea Nitrogen 76 mg/dl Creatinine 3.72 mg/dl Est Creatinine Clear Calc Drug Dose 9.6 ml/min Estimated GFR () 12.3 Estimated GFR (Non- 10.6 BUN/Creatinine Ratio 20.4 Random Glucose 119 mg/dl Calcium Level 8.4 mg/dl Bedside Glucose 126 mg/dl 189 mg/dl 144 mg/dl Test 04/21/17 20:01 Bedside Glucose 240 mg/dl Assessment and Plan 82yo female with: 1. e. coli septicemia - repeat blood cx's negative suggesting sterility. Day #6 of antibiotics. Will need 14 days of Rx. Cont IV ancef for now. Consider changing to PO cipro if renal function improves. CT abd/pelvis without nidus for infection (renal stone, etc). Urine is the presumed source for the bacteremia. Although urine culture was negative u/a was suspicious for UTI. RUQ u/s and CT abd with gallstones but no acute findings to suggest cholecystitis; thus, urine likely source. 2. acute kidney injury in setting of CKD stage 5 - nephrology input appreciated. Suspect GUSTAVO was due to ATN from #1. CKD stage 5 is due to diabetic nephropathy. BMP again with continued improvement in creatinine. Repeat BMP am. Consider d/c of [facility] tomorrow. 3. acute/chronic diastolic CHF - appears stable. Resume lasix when able. 4. T2DM - largely controlled with basal/bolus regimen. 5. DVT proph - heparin BID. 6. CAD with prior CABG - noted; no evidence of ischemia/ACS at this time. 7. HTN - uncontrolled; increase norvasc to 10mg daily. 8. pacemaker status - noted. 9. positive troponin - likely myocardial demand ischemia in setting of #1. 10. anemia - 2nd to CKD - H/H stable at this time. s/p epo by nephrology. hemoccult was negative. 11. constipation - improved w/ miralax. 12. anorexia - due to acute renal failure? septicemia? gastritis (had nausea with dry heaves multiple times on day of presentation)? combination? stop H2 jose change to PPI if she develops abd pain, especially in the RUQ, or other GI symptoms worsen then may need to look at gall bladder again otherwise continue supportive care PT, OT recommending rehab sons updated again today dispo - referrals to [facility] in process Continued [facility] stay due to: voiding difficulties, ambulation difficulties, multiple IV medications needed, other (acute kidney injury/ARF) Discharge planning: [facility] facility (vs [facility])
[2017-04-21 23:34] VITALS: BP 150/55; PULSE 60; TEMP 36.7; O2SAT 94
[2017-04-22] MEDS: CEFAZOLIN IV 1,000 MG in SYRINGE 0 ML IV SCH (06:04)
[2017-04-22 06:06] LABS: HEMATOCRIT 23.6 % (37-47); HEMOGLOBIN 8.1 g/dL (12.0-16.0); MEAN CELL VOLUME 89.7 fL (80-100); MEAN CORPUSCULAR HEMOGLOBIN 30.8 pg (25-34); MEAN CORPUSCULAR HGB CONC 34.3 g/dl (32-36); MEAN PLATELET VOLUME 8.9 fL (7.4-10.4); PLATELET COUNT 215 K/uL (130-400); RED CELL DISTRIBUTION WIDTH CV 13.4 % (11.5-14.5); RED CELL DISTRIBUTION WIDTH SD 43.5 fL (36.4-46.3); WHITE BLOOD COUNT 9.63 K/uL (4.8-10.8)
[2017-04-22 06:40] LABS: CALCIUM 8.4 mg/dl (8.5-10.1); CREATININE 3.37 mg/dl (0.60-1.20); POTASSIUM 4.4 mmol/L (3.5-5.1)
[2017-04-22 06:44] VITALS: BP 184/64; PULSE 59; TEMP 36.7; O2SAT 94
[2017-04-22] MEDS: LABETALOL HCL 200 MG TAB PO SCH ×2 (07:55→20:32)
[2017-04-22] MEDS: POLYETHYLENE (MIRALAX) 17 GM PACK PO SCH ×2 (07:55→20:34)
[2017-04-22] MEDS: EZETIMIBE 10MG TAB PO SCH (07:55)
[2017-04-22] MEDS: SENNA 8.6 MG TAB PO SCH (07:55)
[2017-04-22] MEDS: ISOSORBIDE MONONITRATE 60 MG TABCR PO SCH (07:55)
[2017-04-22] MEDS: OMEGA-3 (PURIFIED FISH OIL) 1 GM CAP PO SCH (07:56)
[2017-04-22] MEDS: PANTOprazole SOD 40 MG TAB PO SCH (07:56)
[2017-04-22] MEDS: ASPIRIN 81 MG ECTAB PO SCH (07:56)
[2017-04-22] MEDS: AMLODIPINE BESYLATE 5 MG TAB PO SCH (07:56)
[2017-04-22] MEDS: HEPARIN SOD 5000 UNIT/0.5 ML CARP SQ SCH ×2 (07:59→20:38)
[2017-04-22 08:00] VITALS: O2SAT 94
[2017-04-22] MEDS: INSULIN ASPART 100 UNITS/ML 3 ML PEN SC SCH ×4 (08:00→20:39)
--- NOTE | 2017-04-22 09:10 | Progress Note ---
Subjective Date of Service: Apr 22, 2017. Subjective pt has no problems and is recovering well with the exception of overall weakness Problem List Medical Problems: (1) Acute kidney failure Status: Acute (2) Cholelithiasis Status: Acute (3) Dehydration Status: Acute (4) HTN (hypertension) Status: Acute (5) Hypertensive emergency Status: Acute (6) Influenza Status: Acute (7) Nausea and vomiting Status: Acute (8) Proteinuria Status: Acute Review of Systems Constitutional: No fever, No chills, No weakness, No fatigue Respiratory: No cough, No shortness of breath Cardiac: No chest pain, No PND, No edema Abdomen: No pain, No nausea, No vomiting Musculoskeletal: No joint pain, No muscle pain Objective Vital Signs Date Time Temp Pulse Resp B/P (MAP) Pulse Ox O2 Delivery O2 Flow Rate FiO2 04/22/17 06:44 36.7 59 16 184/64 (104) 94 Room Air 04/21/17 23:50 Room Air 04/21/17 23:34 36.7 60 16 150/55 (86) 94 Room Air 04/21/17 16:00 95 Room Air 04/21/17 15:36 36.6 61 20 170/68 (102) 95 Room Air 04/21/17 14:15 60 166/57 (93) Physical Exam General Appearance: WD/WN, + mild distress Respiratory/Chest: chest non-tender, + respiratory distress Cardiovascular: regular rate, rhythm, no murmur Abdomen: normal bowel sounds, non tender, soft Extremities: no pedal edema, no calf tenderness Neurologic/Psychiatric: alert, oriented x 3 Laboratory Results Last 24 Hours Test 04/21/17 11:34 04/21/17 16:26 04/21/17 20:01 04/22/17 05:40 Bedside Glucose 189 mg/dl 144 mg/dl 240 mg/dl White Blood Count 9.63 K/uL Red Blood Count 2.63 M/uL Hemoglobin 8.1 g/dL Hematocrit 23.6 % Mean Corpuscular Volume 89.7 fL Mean Corpuscular Hemoglobin 30.8 pg Mean Corpuscular Hemoglobin Concent 34.3 g/dl RDW Standard Deviation 43.5 fL RDW Coefficient of Variation 13.4 % Platelet Count 215 K/uL Mean Platelet Volume 8.9 fL Sodium Level 137 mmol/L Potassium Level 4.4 mmol/L Chloride Level 109 mmol/L Carbon Dioxide Level 20 mmol/L Anion Gap 8.0 mmol/L Blood Urea Nitrogen 70 mg/dl Creatinine 3.37 mg/dl Est Creatinine Clear Calc Drug Dose 10.6 ml/min Estimated GFR () 13.9 Estimated GFR (Non- 12.0 BUN/Creatinine Ratio 20.7 Random Glucose 118 mg/dl Calcium Level 8.4 mg/dl Test 04/22/17 07:39 Bedside Glucose 124 mg/dl Assessment and Plan 82yo f with sepsis from E Coli suspect urinary source E. coli septicemia - look for 14 days treatment, shoot for 04/29 IV ancef consider changing to PO cipro CT abd/pelvis without nidus for infection (renal stone, etc). RUQ u/s and CT abd with gallstones but no acute findings to suggest cholecystitis; thus, urine likely source. Acute kidney injury in setting of CKD stage 5 - nephrology input appreciated. CKD stage 5 is due to diabetic nephropathy. Consider d/c of [facility] Acute/chronic diastolic CHF - Resume lasix when able. T2DM - largely controlled with basal/bolus regimen. DVT proph - heparin BID. HTN - uncontrolled; increased norvasc to 10mg daily. positive troponin - likely myocardial demand ischemia in setting of #1. anemia - 2nd to CKD -s/p epo by nephrology. hemoccult was negative. constipation - improved w/ miralax. PT, OT recommending rehab Continued [facility] stay due to: voiding difficulties, ambulation difficulties, multiple IV medications needed, other (acute kidney injury/ARF) Discharge planning: nursing home facility (vs [facility])
[2017-04-22 09:52] VITALS: BP 158/60; PULSE 60; TEMP 36.5; O2SAT 95
--- NOTE | 2017-04-22 11:34 | Nephrology Progress Note ---
Nephrology Progress Note Date of Service Apr 22, 2017. Chief Complaint F/U for GUSTAVO Subjective Nava was seen examined in her room the room this morning with family at bedside. She is overall feeling well, denies any shortness of breath, chest pain, no fever, chills, overnight events. Renal function seems to be improving , creatinine improved further to 3.4 this morning, electrolyte acceptable and urine output has been decent off of diuretics. Blood pressure improved.. Review of Systems A complete review of systems was performed. Pertinent positives are noted above. All other systems are negative. Vital Signs Last 8 Hrs Date Time Temp Pulse Resp B/P (MAP) Pulse Ox O2 Delivery O2 Flow Rate FiO2 04/22/17 09:52 36.5 60 18 158/60 (92) 95 Room Air 04/22/17 08:00 94 Room Air 04/22/17 06:44 36.7 59 16 184/64 (104) 94 Room Air Last Recorded Weight Weight (Kilograms): 70.900 Physical Exam GENERAL: Elderly female, AAA x 3, pleasant, healthy-appearing, not in any distress. NECK: Supple, no JVD. RESPIRATORY: Normal breathing efforts, no accessory muscle use, clear to auscultation bilaterally, no wheezes or rales. CARDIOVASCULAR: S1, S2 normal, rate rhythm regular. EXTREMITY: No lower extremity edema NEURO: speech fluent. PSYCHIATRY: Normal mood and judgment Family History Patient reports no known family medical history. Social History Smoking Status: Never smoker Drug Use: none Marital Status: Housing Status: lives with family Occupation: retired Laboratory Results Past 24 Hours 04/22/17 05:40 04/22/17 05:40 Test 04/21/17 11:34 04/21/17 16:26 04/21/17 20:01 04/22/17 05:40 Bedside Glucose 189 mg/dl (70-90) 144 mg/dl (70-90) 240 mg/dl (70-90) Red Blood Count 2.63 M/uL (4.2-5.4) Mean Corpuscular Volume 89.7 fL (80-100) Mean Corpuscular Hemoglobin 30.8 pg (25-34) Mean Corpuscular Hemoglobin Concent 34.3 g/dl (32-36) RDW Standard Deviation 43.5 fL (36.4-46.3) RDW Coefficient of Variation 13.4 % (11.5-14.5) Mean Platelet Volume 8.9 fL (7.4-10.4) Anion Gap 8.0 mmol/L (3-11) Est Creatinine Clear Calc Drug Dose 10.6 ml/min Estimated GFR () 13.9 Estimated GFR (Non- 12.0 BUN/Creatinine Ratio 20.7 (10-20) Calcium Level 8.4 mg/dl (8.5-10.1) Test 04/22/17 07:39 Bedside Glucose 124 mg/dl (70-90) Allergies Coded Allergies: Carbamazepine (Verified Allergy, Intermediate, RASH, 04/14/17) Carvedilol (Verified Allergy, Intermediate, DIZZINESS, VISUAL DISTURBANCES , 04/14/17) Erythromycin (Verified Allergy, Intermediate, RASH, 04/14/17) Statins (Verified Adverse Reaction, Intermediate, MUSCLE ACHES, 04/14/17) Medications Current Inpatient Medications Medications (Trade) Dose Ordered Sig/Haja Route Start Time Stop Time Status Last Admin Dose Admin Alprazolam (Xanax Tab) 0.5 mg HS PO 04/14/17 21:00 05/14/17 20:59 04/21/17 21:38 0.5 MG Aspirin (Ecotrin Tab) 81 mg QAM PO 04/15/17 09:00 05/15/17 08:59 04/22/17 07:56 81 MG EZETIMIBE (Zetia Tab) 10 mg QAM PO 04/15/17 09:00 05/15/17 08:59 04/22/17 07:55 10 MG Hydralazine HCl (Apresoline Tab) 100 mg TID PO 04/14/17 21:00 05/14/17 20:59 04/22/17 07:56 100 MG Isosorbide Mononitrate (Imdur Ext Rel Tab) 60 mg QAM PO 04/15/17 09:00 05/15/17 08:59 04/22/17 07:55 60 MG Labetalol HCl (Normodyne Tab) 200 mg BID PO 04/14/17 21:00 05/14/17 20:59 04/22/17 07:55 200 MG Fish Oil ([place]-3 (Purified Fish Oil) Cap) 1 gm DAILY PO 04/15/17 09:00 05/15/17 08:59 04/22/17 07:56 1 GM Insulin Glargine (Lantus Solostar Pen) 20 units DAILY@2100 SC 04/14/17 21:00 05/14/17 20:59 04/21/17 21:44 20 UNITS Heparin Sodium (Porcine) (Heparin Sq 5000 Unit/0.5ml) 5,000 unit Q12@0900,2100 SQ 04/14/17 21:00 05/14/17 20:59 04/22/17 07:59 5,000 UNIT Acetaminophen (Tylenol Tab) 650 mg Q4H PRN PO 04/14/17 16:15 05/14/17 16:14 04/20/17 02:25 650 MG Magnesium Hydroxide (Milk Of Magnesia Susp) 30 ml Q12H PRN PO 04/14/17 16:15 05/14/17 16:14 Ondansetron HCl (Zofran Inj) 4 mg Q6H PRN IV 04/14/17 16:15 05/14/17 16:14 04/16/17 07:49 4 MG Polyethylene (Miralax Powder Packet) 17 gm DAILY PRN PO 04/14/17 16:15 05/14/17 16:14 Insulin Aspart (novoLOG ASPART) SLIDING SCALE If C... ACHS SC 04/14/17 21:00 05/14/17 20:59 04/22/17 08:00 7 UNITS Glucose (Glucose 40% Gel) 15-30 GRAMS 15 GRAMS... UD PRN PO 04/14/17 16:15 05/14/17 16:14 Glucose (Glucose Chew Tab) 4-8 Tablets 4 Tabl... UD PRN PO 04/14/17 16:15 05/14/17 16:14 Dextrose (Dextrose 50% 50ML Syringe) 25-50ML OF 50% DW IV FOR... UD PRN IV 04/14/17 16:15 05/14/17 16:14 Glucagon (Glucagon Inj) 1 mg UD PRN SQ 04/14/17 16:15 05/14/17 16:14 Labetalol HCl (Normodyne IV) 20 mg Q6H PRN IV 04/14/17 16:45 05/14/17 16:44 04/14/17 18:13 20 MG Al Hydrox/Mg Hydrox/Simethicone (Maalox Max Susp) 15 ml Q6H PRN PO 04/14/17 16:45 05/14/17 16:44 04/15/17 21:20 15 ML Metoclopramide HCl (Reglan Inj) 5 mg DAILY PRN IV 04/15/17 22:00 05/15/17 21:59 Polyethylene (Miralax Powder Packet) 17 gm BID PO 04/18/17 11:15 05/18/17 11:14 04/18/17 15:22 17 GM Senna (Senokot Tab) 8.6 mg QAM PO 04/18/17 11:15 05/18/17 11:14 04/20/17 07:46 8.6 MG Miscellaneous Information 1 ea UD PRN N/A 04/19/17 15:45 05/19/17 15:44 Cefazolin Sodium 1000 mg/Syringe 5 ml @ 1.667 mls/ min Q24H IV 04/21/17 07:00 04/29/17 23:59 04/22/17 06:04 1.667 MLS/MIN Amlodipine Besylate (Norvasc Tab) 10 mg QAM PO 04/22/17 09:00 05/22/17 08:59 04/22/17 07:56 10 MG Pantoprazole Sodium (Protonix Tab) 40 mg QAM PO 04/21/17 13:30 05/21/17 13:29 04/22/17 07:56 40 MG Impression (1) Accelerated hypertension (2) Acute renal insufficiency (3) Chronic kidney disease (4) Nausea and vomiting Ms. Dominguez is an 82-year-old female with longstanding DM II, hyperlipidemia, HTN, ASCVD s/p CABG and pacemaker placement, as well as CKD. She has baseline CKD III A3 with a creatinine of 1.7 - 2.0. 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 Urine protein excretion is in excess of 7 grams per day. Based on multiple discussions, Nava has expressed that she would consider hemodialysis if indicated. She was admitted with persistent GUSTAVO as well as accelerated hypertension. Renal US report 04/05: 10.5 cm kidneys w/ mild cortical atrophy, Renal artery doppler was negative for large vessel JASMINE. High resistive indices likely related to small vessel disease and ATN. 24 hour urine protein 7.5g. Likely due to diabetic nephropathy and hypertension, Patient did not tolerate LISSETH inhibitor due to worsening kidney function. Will avoid LISSETH / ARB. 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 Can repeat with outpatient follow up. Blood culture came back positive for E coli currently completing course of Rocephin. Creatinine peaked to 4.8, BUN above 100 however over last 3 days renal function started to improve, creatinine came down to 3.4, other electrolyte acceptable blood pressure better controlled, urine output has been decent, overall volume status acceptable. She has been off of diuretics and has been net negative. Recommendations - continued improvement in renal function, continues to have decent urine output off of diuretics, net negative. --continue to monitor for renal recovery as renal function continues to improve --[facility]ina catheter for accurate I's and O's --Metabolic profile otherwise acceptable for now --suggest physical therapy for deconditioning Will follow
[2017-04-22 13:57] VITALS: BP 143/49; PULSE 60; TEMP 36.5; O2SAT 96
[2017-04-22 20:27] VITALS: BP 193/65; PULSE 62; O2SAT 96
[2017-04-22] MEDS: INSULIN GLARGINE SOLOSTAR 100 UNITS/ML 3 ML PEN SC SCH (20:39)
[2017-04-22] MEDS: ALPRAZOLAM 0.5 MG TAB PO SCH (20:44)
[2017-04-22 23:02] VITALS: BP 132/58; PULSE 60; TEMP 36.6; O2SAT 95
[2017-04-23] MEDS: CEFAZOLIN IV 1,000 MG in SYRINGE 0 ML IV SCH ×2 (06:29→19:43)
[2017-04-23 07:21] VITALS: BP 164/58; PULSE 64; TEMP 36.7; O2SAT 93
[2017-04-23 07:30] VITALS: O2SAT 93
[2017-04-23] MEDS: ASPIRIN 81 MG ECTAB PO SCH (07:47)
[2017-04-23] MEDS: EZETIMIBE 10MG TAB PO SCH (07:47)
[2017-04-23] MEDS: OMEGA-3 (PURIFIED FISH OIL) 1 GM CAP PO SCH (07:47)
[2017-04-23] MEDS: PANTOprazole SOD 40 MG TAB PO SCH (07:47)
[2017-04-23] MEDS: ISOSORBIDE MONONITRATE 60 MG TABCR PO SCH (07:49)
[2017-04-23] MEDS: AMLODIPINE BESYLATE 5 MG TAB PO SCH (07:49)
[2017-04-23] MEDS: LABETALOL HCL 200 MG TAB PO SCH ×2 (07:49→20:59)
[2017-04-23] MEDS: POLYETHYLENE (MIRALAX) 17 GM PACK PO SCH (07:49)
[2017-04-23] MEDS: SENNA 8.6 MG TAB PO SCH (07:49)
[2017-04-23] MEDS: INSULIN ASPART 100 UNITS/ML 3 ML PEN SC SCH ×4 (07:56→21:05)
[2017-04-23] MEDS: HEPARIN SOD 5000 UNIT/0.5 ML CARP SQ SCH ×2 (07:58→21:05)
[2017-04-23 08:23] LABS: HEMATOCRIT 27.3 % (37-47); HEMOGLOBIN 9.4 g/dL (12.0-16.0); MEAN CELL VOLUME 88.6 fL (80-100); MEAN CORPUSCULAR HEMOGLOBIN 30.5 pg (25-34); MEAN CORPUSCULAR HGB CONC 34.4 g/dl (32-36); MEAN PLATELET VOLUME 8.6 fL (7.4-10.4); PLATELET COUNT 222 K/uL (130-400); RED CELL DISTRIBUTION WIDTH CV 13.3 % (11.5-14.5); RED CELL DISTRIBUTION WIDTH SD 42.9 fL (36.4-46.3); WHITE BLOOD COUNT 8.85 K/uL (4.8-10.8)
--- NOTE | 2017-04-23 09:57 | Nephrology Progress Note ---
Nephrology Progress Note Date of Service Apr 23, 2017. Chief Complaint GUSTAVO on CKD, hypertensive urgency Subjective Ms. Dominguez was seen & examined in her hospital room this morning. She currently denies NI, angina or dyspnea. She reports that she is tolerating her current medical regimen without side effect. Ms. Dominguez complains of weakness. She hopes to participate in PT today. She has not yet had her laboratory studies drawn this morning. Review of Systems Constitutional: No fever Cardiovascular: No chest pain Respiratory: No dyspnea at rest Abdomen: No pain, No nausea, No vomiting Genitourinary - Female: No dysuria Extremities: No leg edema A complete review of systems was performed. Pertinent positives are noted above. All other systems are negative. Vital Signs Last 8 Hrs Date Time Temp Pulse Resp B/P (MAP) Pulse Ox O2 Delivery O2 Flow Rate FiO2 04/23/17 07:30 93 Room Air 04/23/17 07:21 36.7 64 18 164/58 (93) 93 Room Air Last Recorded Weight Weight (Kilograms): 70.900 Physical Exam General Appearance: no apparent distress Head: normocephalic, atraumatic Eyes: PERRL, EOMI Neck: no adenopathy Respiratory/Chest: lungs clear Cardiovascular: regular rate, rhythm Abdomen/GI: normal bowel sounds, non tender, soft Extremities/Musculoskelatal: no calf tenderness, no pedal edema Neurologic/Psych: alert, oriented x 3 Family History Patient reports no known family medical history. Social History Smoking Status: Never smoker Drug Use: none Marital Status: Housing Status: lives with family Occupation: retired Laboratory Results Past 24 Hours 04/23/17 08:06 Test 04/22/17 11:28 04/22/17 16:41 04/22/17 19:53 04/23/17 07:46 Bedside Glucose 181 mg/dl (70-90) 146 mg/dl (70-90) 190 mg/dl (70-90) 144 mg/dl (70-90) Test 04/23/17 08:06 Red Blood Count 3.08 M/uL (4.2-5.4) Mean Corpuscular Volume 88.6 fL (80-100) Mean Corpuscular Hemoglobin 30.5 pg (25-34) Mean Corpuscular Hemoglobin Concent 34.4 g/dl (32-36) RDW Standard Deviation 42.9 fL (36.4-46.3) RDW Coefficient of Variation 13.3 % (11.5-14.5) Mean Platelet Volume 8.6 fL (7.4-10.4) Allergies Coded Allergies: Carbamazepine (Verified Allergy, Intermediate, RASH, 04/14/17) Carvedilol (Verified Allergy, Intermediate, DIZZINESS, VISUAL DISTURBANCES , 04/14/17) Erythromycin (Verified Allergy, Intermediate, RASH, 04/14/17) Statins (Verified Adverse Reaction, Intermediate, MUSCLE ACHES, 04/14/17) Medications Current Inpatient Medications Medications (Trade) Dose Ordered Sig/Haja Route Start Time Stop Time Status Last Admin Dose Admin Alprazolam (Xanax Tab) 0.5 mg HS PO 04/14/17 21:00 05/14/17 20:59 04/22/17 20:44 0.5 MG Aspirin (Ecotrin Tab) 81 mg QAM PO 04/15/17 09:00 05/15/17 08:59 04/23/17 07:47 81 MG EZETIMIBE (Zetia Tab) 10 mg QAM PO 04/15/17 09:00 05/15/17 08:59 04/23/17 07:47 10 MG Hydralazine HCl (Apresoline Tab) 100 mg TID PO 04/14/17 21:00 05/14/17 20:59 04/23/17 07:50 100 MG Isosorbide Mononitrate (Imdur Ext Rel Tab) 60 mg QAM PO 04/15/17 09:00 05/15/17 08:59 04/23/17 07:49 60 MG Labetalol HCl (Normodyne Tab) 200 mg BID PO 04/14/17 21:00 05/14/17 20:59 04/23/17 07:49 200 MG Fish Oil ([place]-3 (Purified Fish Oil) Cap) 1 gm DAILY PO 04/15/17 09:00 05/15/17 08:59 04/23/17 07:47 1 GM Insulin Glargine (Lantus Solostar Pen) 20 units DAILY@2100 SC 04/14/17 21:00 05/14/17 20:59 04/22/17 20:39 20 UNITS Heparin Sodium (Porcine) (Heparin Sq 5000 Unit/0.5ml) 5,000 unit Q12@0900,2100 SQ 04/14/17 21:00 05/14/17 20:59 04/23/17 07:58 5,000 UNIT Acetaminophen (Tylenol Tab) 650 mg Q4H PRN PO 04/14/17 16:15 05/14/17 16:14 04/20/17 02:25 650 MG Magnesium Hydroxide (Milk Of Magnesia Susp) 30 ml Q12H PRN PO 04/14/17 16:15 05/14/17 16:14 Ondansetron HCl (Zofran Inj) 4 mg Q6H PRN IV 04/14/17 16:15 05/14/17 16:14 04/16/17 07:49 4 MG Polyethylene (Miralax Powder Packet) 17 gm DAILY PRN PO 04/14/17 16:15 05/14/17 16:14 Insulin Aspart (novoLOG ASPART) SLIDING SCALE If C... ACHS SC 04/14/17 21:00 05/14/17 20:59 04/23/17 07:56 2 UNITS Glucose (Glucose 40% Gel) 15-30 GRAMS 15 GRAMS... UD PRN PO 04/14/17 16:15 05/14/17 16:14 Glucose (Glucose Chew Tab) 4-8 Tablets 4 Tabl... UD PRN PO 04/14/17 16:15 05/14/17 16:14 Dextrose (Dextrose 50% 50ML Syringe) 25-50ML OF 50% DW IV FOR... UD PRN IV 04/14/17 16:15 05/14/17 16:14 Glucagon (Glucagon Inj) 1 mg UD PRN SQ 04/14/17 16:15 05/14/17 16:14 Labetalol HCl (Normodyne IV) 20 mg Q6H PRN IV 04/14/17 16:45 05/14/17 16:44 04/14/17 18:13 20 MG Al Hydrox/Mg Hydrox/Simethicone (Maalox Max Susp) 15 ml Q6H PRN PO 04/14/17 16:45 05/14/17 16:44 04/15/17 21:20 15 ML Metoclopramide HCl (Reglan Inj) 5 mg DAILY PRN IV 04/15/17 22:00 05/15/17 21:59 Polyethylene (Miralax Powder Packet) 17 gm BID PO 04/18/17 11:15 05/18/17 11:14 04/18/17 15:22 17 GM Senna (Senokot Tab) 8.6 mg QAM PO 04/18/17 11:15 05/18/17 11:14 04/20/17 07:46 8.6 MG Miscellaneous Information 1 ea UD PRN N/A 04/19/17 15:45 05/19/17 15:44 Cefazolin Sodium 1000 mg/Syringe 5 ml @ 1.667 mls/ min Q24H IV 04/21/17 07:00 04/29/17 23:59 04/23/17 06:29 1.667 MLS/MIN Amlodipine Besylate (Norvasc Tab) 10 mg QAM PO 04/22/17 09:00 05/22/17 08:59 04/23/17 07:49 10 MG Pantoprazole Sodium (Protonix Tab) 40 mg QAM PO 04/21/17 13:30 05/21/17 13:29 04/23/17 07:47 40 MG Impression (1) Accelerated hypertension (2) Acute renal insufficiency (3) Chronic kidney disease (4) Nausea and vomiting Ms. Dominguez's medical history is significant for HTN, AODM, hyperlipidemia, ASCVD s/p CABG and pacemaker placement and CKD III A3 with baseline creatinine 1.7 - 2.0. 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 Urine protein excretion is in excess of 7 grams per day. Ms. Dominguez was admitted with GUSTAVO, accelerated hypertension and UTI. Renal US report 04/05: 10.5 cm kidneys w/ mild cortical atrophy, Renal artery doppler was negative for large vessel JASMINE. High resistive indices likely related to small vessel disease and ATN. 24 hour urine protein 7.5g. Likely due to diabetic nephropathy and hypertension, Patient did not tolerate LISSETH inhibitor due to worsening kidney function. Will avoid LISSETH / ARB. Small monoclonal ( lambda LC) spike on SPEP/UPEP: this will need to be monitored. Can repeat with outpatient follow up. Blood culture returned positive for E coli currently completing course of Rocephin. Recommendations ACUTE KIDNEY INJURY: -- Creatinine peaked at 4.8. Laboratory studies are pending this am. Patient is clinically euvolemic. She remains nonoliguric -- Will order PRP this am CHRONIC KIDNEY DISEASE: -- Baseline creatinine has been 2.0 - 2.5 -- Renal US report 03/25: 10.5 cm kidneys w/ mild cortical atrophy PROTEINURIA: -- Patient has proteinuria (second collection revealed ~1g/day by 24 hour study ) likely related to DM. SIEP/UIEP last admission with low level of lambda light chain. Serum free light chain ratio however was normal -- Patient did not tolerate LISSETH inhibitor due to worsening kidney function. Will avoid LISSETH / ARB. HYPERTENSION: -- Average blood pressure is under reasonable control. Current regimen includes Labetalol, Hydralazine, Amlodipine and Imdur. Spironolactone and ACEi were stopped due to recent GUSTAVO. -- Renal artery doppler 03/25 was negative for large vessel JASMINE. High resistive indices suggest small vessel disease -- 03/25 Echocardiogram shows moderate to severe LVH c/w longstanding arterial HTN. LVEF 65 - 70% w/ mild MR, pulmonary HTN and elevated right sided pressures EDEMA: -- Improved -- Continue 1500 mg / day sodium resticted diet -- Recommend knee high compression stockings when OOB
[2017-04-23 10:03] VITALS: BP 158/60; PULSE 60; O2SAT 96
[2017-04-23 11:05] LABS: CALCIUM 8.9 mg/dl (8.5-10.1); CREATININE 3.08 mg/dl (0.60-1.20); POTASSIUM 4.4 mmol/L (3.5-5.1)
[2017-04-23 14:52] VITALS: BP 118/73; PULSE 60; TEMP 36.8; O2SAT 97
[2017-04-23 16:00] VITALS: O2SAT 97
--- NOTE | 2017-04-23 17:37 | Progress Note ---
Subjective Date of Service: Apr 23, 2017. Subjective pt states she just does not feel like herself, she is having diarrhea and did have her laxatives held for the last few days. She otherwise is not much improved over 04/22 Problem List Medical Problems: (1) Acute kidney failure Status: Acute (2) Cholelithiasis Status: Acute (3) Dehydration Status: Acute (4) HTN (hypertension) Status: Acute (5) Hypertensive emergency Status: Acute (6) Influenza Status: Acute (7) Nausea and vomiting Status: Acute (8) Proteinuria Status: Acute Review of Systems Constitutional: + weakness, + fatigue, No fever, No chills Respiratory: No cough, No shortness of breath, No dyspnea on exertion Cardiac: No chest pain Abdomen: + diarrhea, No pain, No nausea Musculoskeletal: No joint pain, No muscle pain, No swelling Neurologic: No memory loss, No paralysis, No weakness Psychiatric: No depression symptoms, No anhedonism Objective Vital Signs Date Time Temp Pulse Resp B/P (MAP) Pulse Ox O2 Delivery O2 Flow Rate FiO2 04/23/17 16:00 97 Room Air 04/23/17 14:52 36.8 60 20 118/73 (88) 97 Room Air 04/23/17 10:03 60 18 158/60 (92) 96 Room Air 04/23/17 07:30 93 Room Air 04/23/17 07:21 36.7 64 18 164/58 (93) 93 Room Air 04/23/17 00:00 Room Air 04/22/17 23:02 36.6 60 16 132/58 (82) 95 Room Air 04/22/17 20:27 62 16 193/65 (107) 96 Room Air Physical Exam General Appearance: WD/WN, + mild distress Eyes: normal inspection, sclerae normal Neck: supple, no JVD Respiratory/Chest: chest non-tender, lungs clear, normal breath sounds Cardiovascular: regular rate, rhythm, no murmur Abdomen: normal bowel sounds, non tender, soft Extremities: no pedal edema, no calf tenderness Neurologic/Psychiatric: alert, oriented x 3 Laboratory Results Last 24 Hours Test 04/22/17 19:53 04/23/17 07:46 04/23/17 08:06 04/23/17 08:10 Bedside Glucose 190 mg/dl 144 mg/dl White Blood Count 8.85 K/uL Red Blood Count 3.08 M/uL Hemoglobin 9.4 g/dL Hematocrit 27.3 % Mean Corpuscular Volume 88.6 fL Mean Corpuscular Hemoglobin 30.5 pg Mean Corpuscular Hemoglobin Concent 34.4 g/dl RDW Standard Deviation 42.9 fL RDW Coefficient of Variation 13.3 % Platelet Count 222 K/uL Mean Platelet Volume 8.6 fL Sodium Level 136 mmol/L Potassium Level 4.4 mmol/L Chloride Level 106 mmol/L Carbon Dioxide Level 18 mmol/L Anion Gap 12.0 mmol/L Blood Urea Nitrogen 62 mg/dl Creatinine 3.08 mg/dl Est Creatinine Clear Calc Drug Dose 11.6 ml/min Estimated GFR () 15.5 Estimated GFR (Non- 13.4 BUN/Creatinine Ratio 20.0 Random Glucose 143 mg/dl Calcium Level 8.9 mg/dl Test 04/23/17 11:00 04/23/17 16:30 Bedside Glucose 215 mg/dl 208 mg/dl Assessment and Plan 82yo f with sepsis from E Coli uti poa, lopez sensitive but now having diarrhea E. coli septicemia - look for 14 days treatment, last day is 04/29 sensitivities support PO cipro CT abd/pelvis without nidus for infection (renal stone, etc). RUQ u/s and CT abd with gallstones but no acute findings to suggest cholecystitis; thus,urine is source frequent bowel movements, did have laxatives last on 04/20, will check c diff, may just need probiotics and diarrhea from antibiotics Acute kidney injury in setting of CKD stage 5 - nephrology input appreciated. CKD stage 5 is due to diabetic nephropathy. stopped medina, renal dose medications and follow Acute/chronic diastolic CHF, pulmonary htn, will resume lasix when able and or if pt becomes symptomatic. T2DM - controlled with basal/bolus regimen. DVT proph - heparin BID. HTN -better control with increased norvasc to 10mg daily. positive troponin - likely myocardial demand ischemia in setting of #1. anemia - 2nd to CKD -s/p epo by nephrology. hemoccult was negative. PT, OT recommending rehab Continued [facility] stay due to: voiding difficulties, ambulation difficulties, multiple IV medications needed, other (acute kidney injury/ARF) Discharge planning: nursing home facility (vs [facility])
[2017-04-23] MEDS: ALPRAZOLAM 0.5 MG TAB PO SCH (20:58)
[2017-04-23] MEDS: INSULIN GLARGINE SOLOSTAR 100 UNITS/ML 3 ML PEN SC SCH (21:05)
--- NOTE | 2017-04-23 22:00 | Progress Note ---
Progress Note Date of Service Apr 23, 2017. Progress Note C diff positive; isolation cart and patient placed on PO Vanco 125 mg q8
[2017-04-23] MEDS: RASPBERRY SYRUP 5 ML UDP PO SCH (22:51)
[2017-04-23] MEDS: VANCOMYCIN HCL 125 MG/2.5ML SOLN PO SCH (22:51)
[2017-04-23 23:37] VITALS: BP 148/69; PULSE 58; TEMP 36.8; O2SAT 95
[2017-04-24] VITALS: O2SAT 97
[2017-04-24] MEDS: VANCOMYCIN HCL 125 MG/2.5ML SOLN PO SCH ×4 (05:49→23:39)
[2017-04-24] MEDS: RASPBERRY SYRUP 5 ML UDP PO SCH ×4 (05:49→23:40)
[2017-04-24 07:26] LABS: CALCIUM 8.8 mg/dl (8.5-10.1); CREATININE 3.07 mg/dl (0.60-1.20); POTASSIUM 4.5 mmol/L (3.5-5.1)
[2017-04-24 07:46] VITALS: BP 158/55; PULSE 60; TEMP 36.7; O2SAT 95
[2017-04-24 08:00] VITALS: O2SAT 100
[2017-04-24] MEDS: EZETIMIBE 10MG TAB PO SCH (08:11)
[2017-04-24] MEDS: ASPIRIN 81 MG ECTAB PO SCH (08:11)
[2017-04-24] MEDS: ISOSORBIDE MONONITRATE 60 MG TABCR PO SCH (08:11)
[2017-04-24] MEDS: PANTOprazole SOD 40 MG TAB PO SCH (08:11)
[2017-04-24] MEDS: CEFAZOLIN IV 1,000 MG in SYRINGE 0 ML IV SCH ×2 (08:12→18:18)
[2017-04-24] MEDS: LABETALOL HCL 200 MG TAB PO SCH ×2 (08:12→21:03)
[2017-04-24] MEDS: AMLODIPINE BESYLATE 5 MG TAB PO SCH (08:13)
[2017-04-24] MEDS: INSULIN ASPART 100 UNITS/ML 3 ML PEN SC SCH ×4 (08:17→21:13)
[2017-04-24] MEDS: HEPARIN SOD 5000 UNIT/0.5 ML CARP SQ SCH ×2 (08:21→21:14)
--- NOTE | 2017-04-24 09:42 | Nephrology Progress Note ---
Nephrology Progress Note Date of Service Apr 24, 2017. Chief Complaint GUSTAVO on CKD, hypertensive urgency Subjective Ms. Dominguez was seen & examined in her hospital room this morning. Her medina catheter has been removed. She is voiding without difficulty. Ms. Dominguez reports new onset diarrhea. Stool sample tested + for C. Difficile toxin. She is now on oral Vancomycin therapy. Review of Systems Constitutional: No fever Cardiovascular: No chest pain Abdomen: + diarrhea, No pain Extremities: No leg edema A complete review of systems was performed. Pertinent positives are noted above. All other systems are negative. Vital Signs Last 8 Hrs Date Time Temp Pulse Resp B/P (MAP) Pulse Ox O2 Delivery O2 Flow Rate FiO2 04/24/17 08:00 100 Room Air 04/24/17 07:46 36.7 60 16 158/55 (89) 95 Room Air Last Recorded Weight Weight (Kilograms): 70.900 Physical Exam General Appearance: no apparent distress Head: normocephalic, atraumatic Eyes: PERRL, EOMI Neck: no adenopathy Respiratory/Chest: lungs clear, no respiratory distress Cardiovascular: regular rate, rhythm, no murmur Abdomen/GI: normal bowel sounds, non tender, soft Extremities/Musculoskelatal: + pertinent finding (trace pretibial pitting edema. Lower extremity SCD's in place) Neurologic/Psych: alert, oriented x 3 Family History Patient reports no known family medical history. Social History Smoking Status: Never smoker Drug Use: none Marital Status: Housing Status: lives with family Occupation: retired Laboratory Results Past 24 Hours 04/24/17 06:25 Test 04/23/17 11:00 04/23/17 16:30 04/23/17 19:58 04/24/17 06:25 Bedside Glucose 215 mg/dl (70-90) 208 mg/dl (70-90) 188 mg/dl (70-90) Anion Gap 10.0 mmol/L (3-11) Est Creatinine Clear Calc Drug Dose 11.6 ml/min Estimated GFR () 15.5 Estimated GFR (Non- 13.4 BUN/Creatinine Ratio 19.4 (10-20) Calcium Level 8.8 mg/dl (8.5-10.1) Test 04/24/17 07:36 Bedside Glucose 154 mg/dl (70-90) Allergies Coded Allergies: Carbamazepine (Verified Allergy, Intermediate, RASH, 04/14/17) Carvedilol (Verified Allergy, Intermediate, DIZZINESS, VISUAL DISTURBANCES , 04/14/17) Erythromycin (Verified Allergy, Intermediate, RASH, 04/14/17) Statins (Verified Adverse Reaction, Intermediate, MUSCLE ACHES, 04/14/17) Medications Current Inpatient Medications Medications (Trade) Dose Ordered Sig/Haja Route Start Time Stop Time Status Last Admin Dose Admin Alprazolam (Xanax Tab) 0.5 mg HS PO 04/14/17 21:00 05/14/17 20:59 04/23/17 20:58 0.5 MG Aspirin (Ecotrin Tab) 81 mg QAM PO 04/15/17 09:00 05/15/17 08:59 04/24/17 08:11 81 MG EZETIMIBE (Zetia Tab) 10 mg QAM PO 04/15/17 09:00 05/15/17 08:59 04/24/17 08:11 10 MG Hydralazine HCl (Apresoline Tab) 100 mg TID PO 04/14/17 21:00 05/14/17 20:59 04/24/17 08:12 100 MG Isosorbide Mononitrate (Imdur Ext Rel Tab) 60 mg QAM PO 04/15/17 09:00 05/15/17 08:59 04/24/17 08:11 60 MG Labetalol HCl (Normodyne Tab) 200 mg BID PO 04/14/17 21:00 05/14/17 20:59 04/24/17 08:12 200 MG Insulin Glargine (Lantus Solostar Pen) 20 units DAILY@2100 SC 04/14/17 21:00 05/14/17 20:59 04/23/17 21:05 20 UNITS Heparin Sodium (Porcine) (Heparin Sq 5000 Unit/0.5ml) 5,000 unit Q12@0900,2100 SQ 04/14/17 21:00 05/14/17 20:59 04/24/17 08:21 5,000 UNIT Acetaminophen (Tylenol Tab) 650 mg Q4H PRN PO 04/14/17 16:15 05/14/17 16:14 04/20/17 02:25 650 MG Magnesium Hydroxide (Milk Of Magnesia Susp) 30 ml Q12H PRN PO 04/14/17 16:15 05/14/17 16:14 Ondansetron HCl (Zofran Inj) 4 mg Q6H PRN IV 04/14/17 16:15 05/14/17 16:14 04/16/17 07:49 4 MG Insulin Aspart (novoLOG ASPART) SLIDING SCALE If C... ACHS SC 04/14/17 21:00 05/14/17 20:59 04/24/17 08:17 3 UNITS Glucose (Glucose 40% Gel) 15-30 GRAMS 15 GRAMS... UD PRN PO 04/14/17 16:15 05/14/17 16:14 Glucose (Glucose Chew Tab) 4-8 Tablets 4 Tabl... UD PRN PO 04/14/17 16:15 05/14/17 16:14 Dextrose (Dextrose 50% 50ML Syringe) 25-50ML OF 50% DW IV FOR... UD PRN IV 04/14/17 16:15 05/14/17 16:14 Glucagon (Glucagon Inj) 1 mg UD PRN SQ 04/14/17 16:15 05/14/17 16:14 Al Hydrox/Mg Hydrox/Simethicone (Maalox Max Susp) 15 ml Q6H PRN PO 04/14/17 16:45 05/14/17 16:44 04/15/17 21:20 15 ML Miscellaneous Information 1 ea UD PRN N/A 04/19/17 15:45 05/19/17 15:44 Amlodipine Besylate (Norvasc Tab) 10 mg QAM PO 04/22/17 09:00 05/22/17 08:59 04/24/17 08:13 10 MG Pantoprazole Sodium (Protonix Tab) 40 mg QAM PO 04/21/17 13:30 05/21/17 13:29 04/24/17 08:11 40 MG Cefazolin Sodium 1000 mg/Syringe 5 ml @ 1.667 mls/ min Q12H IV 04/23/17 19:00 04/29/17 06:59 04/24/17 08:12 1.667 MLS/MIN Vancomycin HCl (Vancomycin Oral Soln) 125 mg Q6 PO 04/23/17 22:00 05/07/17 21:59 04/24/17 05:49 125 MG Raspberry (Raspberry Syrup 5ml Cup) 5 ml Q6 PO 04/23/17 22:00 05/07/17 21:59 04/24/17 05:49 5 ML Impression (1) Accelerated hypertension (2) Acute renal insufficiency (3) Chronic kidney disease (4) Nausea and vomiting Ms. Dominguez's medical history is significant for HTN, AODM, hyperlipidemia, ASCVD s/p CABG and pacemaker placement and CKD III A3 with baseline creatinine 1.7 - 2.0. 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 Patient has proteinuria Ms. Dominguez was admitted with GUSTAVO, accelerated hypertension and UTI. Renal US report 04/05: 10.5 cm kidneys w/ mild cortical atrophy, Renal artery doppler was negative for large vessel JASMINE. High resistive indices likely related to small vessel disease and ATN. 24 hour urine protein 7.5g. Repeat testing revealed only ~ 1 g / day. Likely due to diabetic nephropathy and hypertension , Patient did not tolerate LISSETH inhibitor due to worsening kidney function. Will avoid LISSETH / ARB. 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 Can repeat with outpatient follow up. Patient admitted w/ E. Coli UTI. She has completed Rocephin therapy. Ms. Dominguez is currently being treated for C. Difficile colitis Recommendations ACUTE KIDNEY INJURY: -- Creatinine peaked at 4.8. Creatinine has improved to 3.0 today. Patient is nonoliguric and electrolyte balance is acceptable. -- Will order repeat PRP in am CHRONIC KIDNEY DISEASE: -- Baseline creatinine has been 2.0 - 2.5 -- Renal US report 03/25: 10.5 cm kidneys w/ mild cortical atrophy -- Patient will benefit from AVF creation. Discussed at length today. Will pursue once stable as outpatient ANEMIA: -- Patient received Epogen 10,000 units SQ 04/18. Hgb continues to trend upward and kidney function is improving. Will monitor. No acute indication for redosing PONCE at this time. PROTEINURIA: -- Patient has proteinuria (second collection revealed ~1g/day by 24 hour study ) likely related to DM. SIEP/UIEP last admission with low level of lambda light chain. Serum free light chain ratio however was normal -- Patient did not tolerate LISSETH inhibitor due to worsening kidney function. Will avoid LISSETH / ARB. HYPERTENSION: -- Average blood pressure is under reasonable control. Current regimen includes Labetalol, Hydralazine, Amlodipine and Imdur. Spironolactone and ACEi were stopped due to recent GUSTAVO. -- Renal artery doppler 03/25 was negative for large vessel JASMINE. High resistive indices suggest small vessel disease -- 03/25 Echocardiogram shows moderate to severe LVH c/w longstanding arterial HTN. LVEF 65 - 70% w/ mild MR, pulmonary HTN and elevated right sided pressures EDEMA: -- Improved -- Continue 1500 mg / day sodium resticted diet -- Recommend knee high compression stockings when OOB ID: -- Newly diagnosed C. Difficile colitis. On oral vancomycin therapy
[2017-04-24] MEDS: ONDANSETRON INJ 2 MG/ML 2 ML VIAL IV PRN (11:20)
[2017-04-24 13:20] VITALS: BP 134/53; PULSE 59; TEMP 36.5; O2SAT 95
[2017-04-24 16:00] VITALS: O2SAT 95
--- NOTE | 2017-04-24 18:21 | Progress Note ---
Subjective Date of Service: Apr 24, 2017. Subjective pt states she does not feel much better was found to have c diff colitis confirmed with diarrhea complaint, she is weak and tired she has expressed concerns about being home alone for her safety and the fact that she does not have local family support. Problem List Medical Problems: (1) Acute kidney failure Status: Acute (2) Cholelithiasis Status: Acute (3) Dehydration Status: Acute (4) HTN (hypertension) Status: Acute (5) Hypertensive emergency Status: Acute (6) Influenza Status: Acute (7) Nausea and vomiting Status: Acute (8) Proteinuria Status: Acute Review of Systems Constitutional: No fever, No chills, No weakness, No fatigue Respiratory: No cough, No shortness of breath Cardiac: No chest pain, No PND, No edema Abdomen: + nausea, + diarrhea, No pain Musculoskeletal: No joint pain, No muscle pain, No swelling Neurologic: + weakness, No memory loss, No paralysis Objective Vital Signs Date Time Temp Pulse Resp B/P (MAP) Pulse Ox O2 Delivery O2 Flow Rate FiO2 04/24/17 16:00 95 Room Air 04/24/17 13:20 36.5 59 16 134/53 (80) 95 Room Air 04/24/17 08:00 100 Room Air 04/24/17 07:46 36.7 60 16 158/55 (89) 95 Room Air 04/24/17 00:00 97 Room Air 04/23/17 23:37 36.8 58 16 148/69 (95) 95 Room Air Physical Exam General Appearance: WD/WN, + mild distress, + obese Eyes: normal inspection, sclerae normal Respiratory/Chest: chest non-tender, lungs clear, normal breath sounds Cardiovascular: regular rate, rhythm, no murmur Abdomen: normal bowel sounds, non tender, soft Neurologic/Psychiatric: alert, oriented x 3 Laboratory Results Last 24 Hours Test 04/23/17 19:58 04/24/17 06:25 04/24/17 07:36 04/24/17 11:25 Bedside Glucose 188 mg/dl 154 mg/dl 163 mg/dl Sodium Level 137 mmol/L Potassium Level 4.5 mmol/L Chloride Level 108 mmol/L Carbon Dioxide Level 19 mmol/L Anion Gap 10.0 mmol/L Blood Urea Nitrogen 60 mg/dl Creatinine 3.07 mg/dl Est Creatinine Clear Calc Drug Dose 11.6 ml/min Estimated GFR () 15.5 Estimated GFR (Non- 13.4 BUN/Creatinine Ratio 19.4 Random Glucose 143 mg/dl Calcium Level 8.8 mg/dl Test 04/24/17 16:19 Bedside Glucose 144 mg/dl Assessment and Plan 82yo f with sepsis from E Coli uti poa, lopez sensitive but now is confirmed to have C Diff E. coli septicemia -plan on 14 days treatment, last day is 04/29 sensitivities support PO cipro CT abd/pelvis without nidus for infection (renal stone, etc). 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 stopped medina, renal dose medications and follow, not liking renal diet will change to more palatable diet Acute/chronic diastolic CHF, pulmonary htn, seem clinically stable T2DM - continues to be controlled with basal/bolus regimen. DVT proph - heparin BID. HTN increased norvasc to 10mg daily. positive troponin - likely myocardial demand ischemia in setting of #1. anemia - 2nd to CKD -s/p epo by nephrology. Hemoccult was negative. awaiting peer to peer evaluation Continued [facility] stay due to: voiding difficulties, ambulation difficulties, multiple IV medications needed, other (acute kidney injury/ARF) Discharge planning: half-way facility (vs [facility])
[2017-04-24] MEDS: ALPRAZOLAM 0.5 MG TAB PO SCH (21:03)
[2017-04-24] MEDS: INSULIN GLARGINE SOLOSTAR 100 UNITS/ML 3 ML PEN SC SCH (21:13)
[2017-04-24 23:38] VITALS: BP 137/65; PULSE 60; TEMP 36.5; O2SAT 96
[2017-04-25] MEDS: VANCOMYCIN HCL 125 MG/2.5ML SOLN PO SCH ×2 (06:20→13:10)
[2017-04-25] MEDS: RASPBERRY SYRUP 5 ML UDP PO SCH ×2 (06:20→13:10)
[2017-04-25] MEDS: CEFAZOLIN IV 1,000 MG in SYRINGE 0 ML IV SCH (06:21)
[2017-04-25 07:17] LABS: CALCIUM 8.5 mg/dl (8.5-10.1); CREATININE 3.02 mg/dl (0.60-1.20); POTASSIUM 4.5 mmol/L (3.5-5.1)
[2017-04-25 07:30] VITALS: O2SAT 95
[2017-04-25 07:35] VITALS: BP 166/63; PULSE 62; TEMP 37.1; O2SAT 95
[2017-04-25] MEDS: LABETALOL HCL 200 MG TAB PO SCH (08:40)
[2017-04-25] MEDS: ASPIRIN 81 MG ECTAB PO SCH (08:40)
[2017-04-25] MEDS: HEPARIN SOD 5000 UNIT/0.5 ML CARP SQ SCH (08:40)
[2017-04-25] MEDS: INSULIN ASPART 100 UNITS/ML 3 ML PEN SC SCH ×2 (08:40→13:10)
[2017-04-25] MEDS: ISOSORBIDE MONONITRATE 60 MG TABCR PO SCH (08:40)
[2017-04-25] MEDS: EZETIMIBE 10MG TAB PO SCH (08:40)
[2017-04-25] MEDS: AMLODIPINE BESYLATE 5 MG TAB PO SCH (08:40)
[2017-04-25] MEDS: PANTOprazole SOD 40 MG TAB PO SCH (08:40)
--- NOTE | 2017-04-25 09:43 | Nephrology Progress Note ---
Nephrology Progress Note Date of Service Apr 25, 2017. Chief Complaint GUSTAVO on CKD, hypertensive urgency Subjective Ms. Dominguez was seen & examined in her hospital room this morning. She is still having loose bowel movements. She is tolerating oral Vancomycin without side effect. Ms. Dominguez voices no new medical concerns at this time. Review of Systems Constitutional: No fever Cardiovascular: No chest pain Respiratory: No dyspnea at rest Abdomen: + diarrhea, No pain, No vomiting Genitourinary - Female: No dysuria Extremities: + leg edema A complete review of systems was performed. Pertinent positives are noted above. All other systems are negative. Vital Signs Last 8 Hrs Date Time Temp Pulse Resp B/P (MAP) Pulse Ox O2 Delivery O2 Flow Rate FiO2 04/25/17 07:35 37.1 62 16 166/63 (97) 95 Room Air 04/25/17 07:30 95 Room Air Last Recorded Weight Weight (Kilograms): 70.900 Physical Exam General Appearance: no apparent distress Head: normocephalic, atraumatic Eyes: PERRL, EOMI Neck: no adenopathy, no JVD Respiratory/Chest: lungs clear, no respiratory distress Cardiovascular: regular rate, rhythm, no murmur Abdomen/GI: normal bowel sounds, non tender, soft Extremities/Musculoskelatal: + pertinent finding (1+ pretibial pitting edema) Neurologic/Psych: alert, oriented x 3 Family History Patient reports no known family medical history. Social History Smoking Status: Never smoker Drug Use: none Marital Status: Housing Status: lives with family Occupation: retired Laboratory Results Past 24 Hours 04/25/17 06:12 Test 04/24/17 11:25 04/24/17 16:19 04/24/17 20:25 04/25/17 06:12 Bedside Glucose 163 mg/dl (70-90) 144 mg/dl (70-90) 210 mg/dl (70-90) Anion Gap 9.0 mmol/L (3-11) Est Creatinine Clear Calc Drug Dose 11.8 ml/min Estimated GFR () 15.9 Estimated GFR (Non- 13.7 BUN/Creatinine Ratio 18.8 (10-20) Calcium Level 8.5 mg/dl (8.5-10.1) Test 04/25/17 07:29 Bedside Glucose 135 mg/dl (70-90) Allergies Coded Allergies: Carbamazepine (Verified Allergy, Intermediate, RASH, 04/14/17) Carvedilol (Verified Allergy, Intermediate, DIZZINESS, VISUAL DISTURBANCES , 04/14/17) Erythromycin (Verified Allergy, Intermediate, RASH, 04/14/17) Statins (Verified Adverse Reaction, Intermediate, MUSCLE ACHES, 04/14/17) Medications Current Inpatient Medications Medications (Trade) Dose Ordered Sig/Haja Route Start Time Stop Time Status Last Admin Dose Admin Alprazolam (Xanax Tab) 0.5 mg HS PO 04/14/17 21:00 05/14/17 20:59 04/24/17 21:03 0.5 MG Aspirin (Ecotrin Tab) 81 mg QAM PO 04/15/17 09:00 05/15/17 08:59 04/24/17 08:11 81 MG EZETIMIBE (Zetia Tab) 10 mg QAM PO 04/15/17 09:00 05/15/17 08:59 04/24/17 08:11 10 MG Hydralazine HCl (Apresoline Tab) 100 mg TID PO 04/14/17 21:00 05/14/17 20:59 04/24/17 21:04 100 MG Isosorbide Mononitrate (Imdur Ext Rel Tab) 60 mg QAM PO 04/15/17 09:00 05/15/17 08:59 04/24/17 08:11 60 MG Labetalol HCl (Normodyne Tab) 200 mg BID PO 04/14/17 21:00 05/14/17 20:59 04/24/17 21:03 200 MG Insulin Glargine (Lantus Solostar Pen) 20 units DAILY@2100 SC 04/14/17 21:00 05/14/17 20:59 04/24/17 21:13 20 UNITS Heparin Sodium (Porcine) (Heparin Sq 5000 Unit/0.5ml) 5,000 unit Q12@0900,2100 SQ 04/14/17 21:00 05/14/17 20:59 04/24/17 21:14 5,000 UNIT Acetaminophen (Tylenol Tab) 650 mg Q4H PRN PO 04/14/17 16:15 05/14/17 16:14 04/20/17 02:25 650 MG Magnesium Hydroxide (Milk Of Magnesia Susp) 30 ml Q12H PRN PO 04/14/17 16:15 05/14/17 16:14 Ondansetron HCl (Zofran Inj) 4 mg Q6H PRN IV 04/14/17 16:15 05/14/17 16:14 04/24/17 11:20 4 MG Insulin Aspart (novoLOG ASPART) SLIDING SCALE If C... ACHS SC 04/14/17 21:00 05/14/17 20:59 04/24/17 21:13 2 UNITS Glucose (Glucose 40% Gel) 15-30 GRAMS 15 GRAMS... UD PRN PO 04/14/17 16:15 05/14/17 16:14 Glucose (Glucose Chew Tab) 4-8 Tablets 4 Tabl... UD PRN PO 04/14/17 16:15 05/14/17 16:14 Dextrose (Dextrose 50% 50ML Syringe) 25-50ML OF 50% DW IV FOR... UD PRN IV 04/14/17 16:15 05/14/17 16:14 Glucagon (Glucagon Inj) 1 mg UD PRN SQ 04/14/17 16:15 05/14/17 16:14 Al Hydrox/Mg Hydrox/Simethicone (Maalox Max Susp) 15 ml Q6H PRN PO 04/14/17 16:45 05/14/17 16:44 04/15/17 21:20 15 ML Miscellaneous Information 1 ea UD PRN N/A 04/19/17 15:45 05/19/17 15:44 Amlodipine Besylate (Norvasc Tab) 10 mg QAM PO 04/22/17 09:00 05/22/17 08:59 04/24/17 08:13 10 MG Pantoprazole Sodium (Protonix Tab) 40 mg QAM PO 04/21/17 13:30 05/21/17 13:29 04/24/17 08:11 40 MG Cefazolin Sodium 1000 mg/Syringe 5 ml @ 1.667 mls/ min Q12H IV 04/23/17 19:00 04/29/17 06:59 04/25/17 06:21 1.667 MLS/MIN Vancomycin HCl (Vancomycin Oral Soln) 125 mg Q6 PO 04/23/17 22:00 05/07/17 21:59 04/25/17 06:20 125 MG Raspberry (Raspberry Syrup 5ml Cup) 5 ml Q6 PO 04/23/17 22:00 05/07/17 21:59 04/25/17 06:20 5 ML Impression (1) Accelerated hypertension (2) Acute renal insufficiency (3) Chronic kidney disease (4) Nausea and vomiting Ms. Dominguez's medical history is significant for HTN, AODM, hyperlipidemia, ASCVD s/p CABG and pacemaker placement and CKD III A3 with baseline creatinine 1.7 - 2.0. 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 Patient has proteinuria Ms. Dominguez was admitted with GUSTAVO, accelerated hypertension and UTI. Renal US report 04/05: 10.5 cm kidneys w/ mild cortical atrophy, Renal artery doppler was negative for large vessel JASMINE. High resistive indices likely related to small vessel disease and ATN. 24 hour urine protein 7.5g. Repeat testing revealed only ~ 1 g / day. Likely due to diabetic nephropathy and hypertension , Patient did not tolerate LISSETH inhibitor due to worsening kidney function. Will avoid LISSETH / ARB. 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 Can repeat with outpatient follow up. Patient admitted w/ E. Coli UTI. She has completed Rocephin therapy. Ms. Dominguez is currently being treated for C. Difficile colitis Recommendations ACUTE KIDNEY INJURY: -- Creatinine peaked at 4.8. Creatinine has improved to 3.0 today. Patient is nonoliguric and electrolyte balance is acceptable. -- Will order repeat PRP in am CHRONIC KIDNEY DISEASE: -- Baseline creatinine has been 2.0 - 2.5 -- Renal US report 03/25: 10.5 cm kidneys w/ mild cortical atrophy -- Patient will benefit from AVF creation. Discussed at length today. Will pursue once stable as outpatient ANEMIA: -- Patient received Epogen 10,000 units SQ 04/18. Hgb continues to trend upward and kidney function is improving. Will monitor. No acute indication for redosing PONCE at this time. PROTEINURIA: -- Patient has proteinuria (second collection revealed ~1g/day by 24 hour study ) likely related to DM. SIEP/UIEP last admission with low level of lambda light chain. Serum free light chain ratio however was normal -- Patient did not tolerate LISSETH inhibitor due to worsening kidney function. Will avoid LISSETH / ARB. HYPERTENSION: -- Average blood pressure is under reasonable control. Current regimen includes Labetalol, Hydralazine, Amlodipine and Imdur. Spironolactone and ACEi were stopped due to recent GUSTAVO. -- Renal artery doppler 03/25 was negative for large vessel JASMINE. High resistive indices suggest small vessel disease -- 03/25 Echocardiogram shows moderate to severe LVH c/w longstanding arterial HTN. LVEF 65 - 70% w/ mild MR, pulmonary HTN and elevated right sided pressures EDEMA: -- Improved -- Continue 1500 mg / day sodium resticted diet -- Recommend knee high compression stockings when OOB ID: -- C. Difficile colitis. Oral vancomycin therapy started 04/23/17 -- Consider d/c Cefazolin
[2017-04-25] MEDS ORDERED: CEFU250T15 PO (11:04)
[2017-04-25] MEDS ORDERED: VANC1SUS PO (11:04)
--- NOTE | 2017-04-25 11:06 | Discharge Instructions ---
Discharge Instructions Date of Service Apr 25, 2017. Admission Reason for Admission: Hypertensive Crisis Discharge Discharge Diagnosis / Problem: ecoli sepsis and Discharge Goals Goal(s): Diagnostic testing, Therapeutic intervention Activity Recommendations Activity Limitations: as noted below Lifting Limitations: gradually increase as tolerated your blood pressure medications were only changed due to the hospital supply of medicines the only change at time of discharge is to not take water pill . Current Hospital Diet Patient's current hospital diet: Diabetes Type 2 Diet Discharge Diet Recommended Diet: Regular Diet Pending Studies Studies pending at discharge: no Laboratory Results Hemoglobin A1c Test 04/06/17 06:53 Range/Units Estimated Average Glucose 157 mg/dl Hemoglobin A1c 7.1 H 4.5-5.6 % Lipid Panel Test 04/15/17 04:14 Range/Units Triglycerides Level 145 0-150 mg/dl Cholesterol Level 156 0-200 mg/dl HDL Cholesterol 38 mg/dl Cholesterol/HDL Ratio 4.1 LDL Cholesterol, Calculated 89 mg/dl Medical Emergencies . Who to Call and When: Medical Emergencies: If at any time you feel your situation is an emergency, please call 911 immediately. . Non-Emergent Contact Non-Emergency issues call your: Primary Care Provider Call Non-Emergent contact if: temperature is above 101, your pain is unusual for you . . "Provider Documentation" section prepared by Boom Hanley. . VTE Core Measure Inpt VTE Proph given/why not?: Unfractionated heparin SQ
[2017-04-25 11:39] VITALS: BP 122/64; PULSE 60; TEMP 36.6; O2SAT 96
--- NOTE | 2017-04-25 19:23 | Discharge Summary ---
Discharge Summary Date of Service Apr 25, 2017. Discharge Summary Admission Date: Apr 14, 2017 at 16:25 Discharge Date: Apr 25, 2017 Discharge Disposition: Home with services Principal Diagnosis: sepsis from urinary source, C Diff colitis Immunizations: Have You Had Influenza Vaccine: N/A History of Tetanus Vaccine?: Yes History of Pneumococcal: Yes History of Hepatitis B Vaccine: No Medication Reconciliation New Medications: Cefuroxime Axetil (Ceftin) 250 Mg Tab 250 MG PO BID, #8 TAB Vancomycin HCl (Vancomycin HCl + Syrspend) 50 Mg/Ml Cassidy 125 MG PO Q6, #44 DOSE may substitute pills if you have them instead Continued Medications: Acetaminophen (Tylenol Extra Strength) 500 Mg Tab 500-1000 MG PO TID PRN for Pain Alprazolam (Xanax) 0.5 Mg Tab 0.5 MG PO HS Aspirin (Aspirin Ec) 81 Mg Tab 81 MG PO QAM Cholecalciferol (Vitamin D3) 5,000 Unit Chw 1 TAB PO QDL Cyclosporine (Ophth) (Restasis) 0.05 % Emu 1 DROP OP BID, BTL Ezetimibe (Zetia) 10 Mg Tab 10 MG PO QAM, TAB Felodipine (Plendil) 5 Mg Tabcr 5 MG PO HS, TAB Fluorouracil (Topical) (Efudex) 5 % Cre 1 APPLN TOP BID for 14 Days, #40 GM APPLY THIN LAYER TO AFFECTED AREA. Hydralazine Hcl (Apresoline) 50 Mg Tab 2 TAB PO TID, TAB Insulin Aspart (Novolog Flexpen) 100 Units/Ml Inj 1 DOSE SC UD PER SLIDING SCALE, UP TO 90 UNITS/DAY. Insulin Glargine (Toujeo Solostar) 300 Unit/Ml Inj 62 UNITS SC QPM @ 2100 Isosorbide Mononitrate Ext Rel (Imdur Ext Rel) 60 Mg Ertab 60 MG PO QAM, TAB Labetalol Hcl (Labetalol Hcl) 200 Mg Tab 200 MG PO BID, TAB [place]-3 Fatty Acids (Fish Oil) 1,000 Mg Cap 1000 MG PO DAILY Discontinued Medications: Spironolactone (Spironolactone) 25 Mg Tab 1 TAB PO QAM Hospital Course 82yo f with sepsis from E Coli uti poa, lopez sensitive but now is confirmed to have C Diff E. coli septicemia -plan on 14 days treatment, last day is 04/29 sensitivities support PO cipro CT abd/pelvis without nidus for infection (renal stone, etc). 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 stopped medina, renal dose medications and follow, follows with outpt nephrology Acute/chronic diastolic CHF, pulmonary htn, clinically stable T2DM - continues to be controlled with basal/bolus regimem resume home dosing HTN i norvasc . positive troponin - likely myocardial demand ischemia in setting of #1. anemia - 2nd to CKD -s/p epo by nephrology. Hemoccult was negative. I did speak to a physician at her insurance company for a peer to peer. I informed her that the pt feels unsafe to go home, Dr Crissy Luu stated that is unfortunate but she does not qualify for subacute rehab at nursing facility and that home safety is our responsibility not a reason to go to snf. Total Time Spent: Greater than 30 minutes This includes examination of the patient, discharge planning, medication reconciliation, and communication with other providers. Discharge Instructions Please refer to the electronic Patient Visit Report (Discharge Instructions) for additional information.
== END 2017-04-25 16:45 | disposition home health service (06) | DRG 871 ==
LOC: EDBD 12:09 → C.EDB 12:11 → C.2T 16:25 → ENRESERV 16:47 → C.MS2W 04-20 13:36
PROVIDERS: ADMIT Internal Medicine; ATTEND Internal Medicine
DX: A41.51 Sepsis due to Escherichia coli [E. coli] (principal); N17.0 Acute kidney failure with tubular necrosis; I50.33 Acute on chronic diastolic (congestive) heart failure; N39.0 Urinary tract infection, site not specified; I16.9 Hypertensive crisis, unspecified; I13.2 Hypertensive heart and chronic kidney disease with heart failure and with stage 5 chronic kidney disease, or end stage renal disease; N18.5 Chronic kidney disease, stage 5; I24.8 Other forms of acute ischemic heart disease; A04.72 Enterocolitis due to Clostridium difficile, not specified as recurrent; R11.2 Nausea with vomiting, unspecified; K29.70 Gastritis, unspecified, without bleeding; E11.22 Type 2 diabetes mellitus with diabetic chronic kidney disease; E11.42 Type 2 diabetes mellitus with diabetic polyneuropathy; I25.10 Atherosclerotic heart disease of native coronary artery without angina pectoris; D63.1 Anemia in chronic kidney disease; E78.1 Pure hyperglyceridemia; D15.1 Benign neoplasm of heart; M54.42 Lumbago with sciatica, left side; K59.00 Constipation, unspecified; R63.0 Anorexia; E66.3 Overweight; Z68.34 Body mass index [BMI] 34.0-34.9, adult; Z95.1 Presence of aortocoronary bypass graft; Z95.0 Presence of cardiac pacemaker; Z86.79 Personal history of other diseases of the circulatory system; Z91.81 History of falling; Z79.4 Long term (current) use of insulin; Z79.82 Long term (current) use of aspirin; Z79.899 Other long term (current) drug therapy; Z88.1 Allergy status to other antibiotic agents

== ENCOUNTER → 2017-05-03 | Outpatient (CLI) | payer BC ==
[~2017-05-03] MED LIST changes: -APR50 PO; +CEFU250T15 PO; +FELO5TAB PO; +HYDR-4717 PO; +LABE200T24 PO; -LBT200 PO; -PLN5 PO; -SPR25 PO; +VANC1SUS PO
[2017-05-03 16:36] LABS: BASO % 0.1 %; BASO ABS # 0.01 K/uL (0-0.2); EOS % 1.1 %; HEMATOCRIT 26.8 % (37-47); HEMOGLOBIN 8.8 g/dL (12.0-16.0); IG# 0.04 K/uL (0.00-0.02); LYMPH % 7.9 %; LYMPH ABS # 0.72 K/uL (1.2-3.4); MEAN CELL VOLUME 91.5 fL (80-100); MEAN CORPUSCULAR HGB CONC 32.8 g/dl (32-36); MEAN PLATELET VOLUME 8.8 fL (7.4-10.4); MONO % 8.8 %; NEUT % 81.7 %; NEUT ABS # 7.45 K/uL (1.4-6.5); PLATELET COUNT 267 K/uL (130-400); RED CELL DISTRIBUTION WIDTH CV 14.7 % (11.5-14.5); RED CELL DISTRIBUTION WIDTH SD 48.7 fL (36.4-46.3); WHITE BLOOD COUNT 9.12 K/uL (4.8-10.8)
[2017-05-03 17:07] LABS: ALBUMIN 3.1 gm/dl (3.4-5.0); ALT/SGPT 23 U/L (12-78); AST/SGOT 15 U/L (15-37); BLOOD UREA NITROGEN 60 mg/dl (7-18); CARBON DIOXIDE 19 mmol/L (21-32); CREATININE 2.43 mg/dl (0.60-1.20); GLUCOSE 251 mg/dl (70-99); POTASSIUM 5.9 mmol/L (3.5-5.1); SODIUM 135 mmol/L (136-145)
[2017-05-03 17:10] LABS: ALKALINE PHOSPHATASE 58 U/L (45-117); TOTAL PROTEIN 6.8 gm/dl (6.4-8.2); TRANSFERRIN 216 mg/dl (200-360)
== END | disposition home or self-care (01) ==
LOC: C.LAB1850 15:37
PROVIDERS: ATTEND Internal Medicine
DX: I12.9 Hypertensive chronic kidney disease with stage 1 through stage 4 chronic kidney disease, or unspecified chronic kidney disease (principal); N18.9 Chronic kidney disease, unspecified; E55.9 Vitamin D deficiency, unspecified; N25.81 Secondary hyperparathyroidism of renal origin

== ENCOUNTER 2017-06-10 20:38 | Inpatient (IN) | payer BC, OTHER ==
[~2017-06-10] VITALS: Ht 147.3 cm; Wt 64.6 kg
[~2017-06-10 20:38] MED LIST changes: +CEFD1CAP14 PO; -CEFU250T15 PO; +DOXY-300 PO; +INSDGIPEN SC; -INSU1.2I SC; +IPRASOL4 INH; -NVLGI/PEN SC; +NVLGIPEN SC; +SRQ25 PO; -VANC1SUS PO; +VANC5CAP PO
[2017-06-10] MEDS ORDERED: ONDANSETRON INJ 2 MG/ML 2 ML VIAL IV STA (21:03)
--- NOTE | 2017-06-10 21:05 | EMERGENCY ROOM VISIT NOTE ---
History Report prepared by Nayla: Mallory Miller Under the Supervision of: Dr. Chris Gambao M.D. First contact with patient: 20:40 Chief Complaint: HYPERTENSION Stated Complaint: NAUSEA History of Present Illness The patient is an 82 year old white female with a past medical history of pacemaker, CKD, CAD, DM, HLD, HTN, and PNA who presents to the ED with complaints of persistent cough two days ago. Positive for cough, nausea, dry heaving, abdominal pain, runny bowel movements, SOB, and loss of appetite. Negative for urinary symptoms. She states that she was placed on a different blood pressure medication and has since not been able to eat well. She has taken cough medicine, though it provided mild relief. She was recently discharged May 26, 2017 and diagnosed with PNA. She is currently taking antibiotics. She reports swelling to her legs and arms. She denies any history of blood clots. Per daughter, the patient has chronic edema. Per daughter, the redness in the patient's legs is new. She denies any use of at home oxygen. Source of History: patient, family Onset: two days Position: other (global) Quality: other (cough) Timing: other (persistent) Modifying Factors (Relieving): other (cough medicine) Associated Symptoms: + SOB, + nausea, + abdominal pain, No urinary symptoms Note: Notes loss of appetite, runny bowel movements, and dry heaving. Notes swelling and redness to legs. Review of Systems See HPI for pertinent positives and negatives. A total of ten systems were reviewed and were otherwise negative. Past Medical & Surgical Medical Problems: (1) Abdominal pain (2) Accelerated hypertension (3) Acute renal insufficiency (4) Atrial myxoma (5) Benign hypertension (6) C. 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 (11) Coronary artery disease (12) Diabetes mellitus (13) Heart disease (14) Hematochezia (15) Hyperlipidemia (16) Hypertensive crisis (17) Hysterectomy (18) Implantation of cardiac pacemaker (19) Neutropenia (20) Pancytopenia (21) Pneumonia (22) Toe surgery Family History No pertinent family history Social History Smoking Status: Never Smoker Alcohol Use: none Drug Use: none Marital Status: Housing Status: lives alone Occupation Status: retired Current/Historical Medications Scheduled Alprazolam (Xanax), 0.5 MG PO HS Amoxicillin & Pot Clavulanate (Augmentin 875-125 mg), 1 TAB PO BID Aspirin (Aspirin Ec), 81 MG PO QAM Cholecalciferol (Vitamin D3), 1 TAB PO QDL Cyclosporine (Ophth) (Restasis), 1 DROP OP BID Ezetimibe (Zetia), 10 MG PO QAM Felodipine (Plendil), 5 MG PO HS Fluorouracil (Topical) (Efudex), 1 APPLN TOP BID Furosemide (Lasix), 20 MG PO DAILY Hydralazine Hcl (Apresoline), 2 TAB PO TID Insulin Aspart (Novolog Flexpen), 0 UNITS SC AC Insulin Glargine (Lantus Solostar), 16 UNITS SC QPM Isosorbide Mononitrate Ext Rel (Imdur Ext Rel), 60 MG PO BID Labetalol Hcl (Labetalol Hcl), 200 MG PO BID [place]-3 Fatty Acids (Fish Oil), 1,000 MG PO DAILY Quetiapine Fumarate (Quetiapine Fumarate), 25 MG PO HS Scheduled PRN Acetaminophen (Tylenol Extra Strength), 500-1,000 MG PO TID PRN for Pain Ipratropium-Albuterol (Duoneb), 3 ML INH Q6R PRN for Shortness of Breath Melatonin (Kp Melatonin), 3 MG PO HS PRN for Sleep Allergies Coded Allergies: Carbamazepine (Verified Allergy, Intermediate, RASH, 06/10/17) Erythromycin (Verified Allergy, Intermediate, RASH, 06/10/17) Carvedilol (Verified Adverse Reaction, Intermediate, DIZZINESS, VISUAL DISTURBANCES, 06/10/17) Statins (Verified Adverse Reaction, Intermediate, MUSCLE ACHES, 06/10/17) Physical Exam Vital Signs Date Time Temp Pulse Resp B/P (MAP) Pulse Ox O2 Delivery O2 Flow Rate FiO2 06/11/17 00:04 66 20 178/78 98 Room Air 06/10/17 23:28 67 20 201/68 97 Nasal Cannula 2.5 06/10/17 22:34 96 26 212/98 86 Room Air 06/10/17 20:59 76 06/10/17 20:45 96 Nasal Cannula 2.0 06/10/17 20:40 36.8 63 22 204/75 89 Room Air 06/10/17 20:40 89 Room Air Physical Exam GENERAL: Awake, alert, ill-appearing, NAD. Obese. NC in place. HENT: Normocephalic, atraumatic. EYES: Normal conjunctiva. Sclera non-icteric. NECK: Supple. No nuchal rigidity. FROM. CHEST: Device in left chest, midline sternotomy scar. RESPIRATORY: Diffuse rhonchi throughout, bibasilar crackles noted. CARDIAC: RRR, no MRG ABDOMEN: Soft, NTND, BS+ MSK: No chest wall TTP, 3-4+ pitting edema b/l LEs and 2+ pitting edema of LUE NEURO: GCS 15, CN 2-12 intact, moves all 4s on command SKIN: No rash or jaundice noted. Noted blanching erythema to b/l LEs approximately 8cm x 4 cm, no induration Medical Decision & Procedures ER Provider Diagnostic Interpretation: Radiology results as stated below per my review and radiologist interpretation: AP CHEST WITH ABDOMINAL SERIES CLINICAL HISTORY: Generalized abdominal pain. FINDINGS: An AP chest radiograph is compared to study dated 05/19/2017. The examination is degraded by apical lordotic positioning. A 2-lead cardiac pacemaker is unchanged in position and partially obscures the left upper chest. The patient is status post midline sternotomy. The heart is enlarged and there is atherosclerotic calcification of the thoracic aorta. There is pulmonary vascular congestion. Small pleural effusions are identified. Bibasilar airspace opacities are observed. No pneumothorax is seen. The skeletal structures are osteopenic. The bony thorax is grossly intact. Supine and decubitus abdominal radiographs are correlated with abdominal CT dated 04/14/2017. There is a nonobstructed abdominal bowel gas pattern. No evidence of intraperitoneal free air is seen. Calcified gallstones are identified in the right upper quadrant. Phleboliths are observed in the pelvis. There is moderate lumbosacral spondylosis and scoliosis. The bony pelvis appear intact. IMPRESSION: 1. Cardiomegaly and cardiac pacemaker. There is pulmonary vascular congestion. 2. Small pleural effusions are identified. Bibasilar airspace opacities likely represent atelectasis. Correlate clinically for evidence of superimposed pneumonia/aspiration pneumonitis. 3. Nonobstructed abdominal bowel gas pattern. 4. Cholelithiasis. Electronically signed by: William Villanueva M.D. 06/10/2017 10:08 PM Dictated Date/Time: 06/10/2017 10:05 PM Laboratory Results 06/10/17 21:30 Red Blood Count 3.00, Mean Corpuscular Volume 87.3, Mean Corpuscular Hemoglobin 29.0, Mean Corpuscular Hemoglobin Concent 33.2, Mean Platelet Volume 8.8, Neutrophils (%) (Auto) 84.8, Lymphocytes (%) (Auto) 7.8, Monocytes (%) (Auto) 5.2, Eosinophils (%) (Auto) 1.0, Basophils (%) (Auto) 0.5, Neutrophils # (Auto) 8.50, Lymphocytes # (Auto) 0.78, Monocytes # (Auto) 0.52, Eosinophils # (Auto) 0.10, Basophils # (Auto) 0.05 06/10/17 21:30 Test 06/10/17 21:30 06/10/17 21:39 White Blood Count 10.02 K/uL (4.8-10.8) Red Blood Count 3.00 M/uL (4.2-5.4) Hemoglobin 8.7 g/dL (12.0-16.0) Hematocrit 26.2 % (37-47) Mean Corpuscular Volume 87.3 fL (80-100) Mean Corpuscular Hemoglobin 29.0 pg (25-34) Mean Corpuscular Hemoglobin Concent 33.2 g/dl (32-36) Platelet Count 155 K/uL (130-400) Mean Platelet Volume 8.8 fL (7.4-10.4) Neutrophils (%) (Auto) 84.8 % Lymphocytes (%) (Auto) 7.8 % Monocytes (%) (Auto) 5.2 % Eosinophils (%) (Auto) 1.0 % Basophils (%) (Auto) 0.5 % Neutrophils # (Auto) 8.50 K/uL (1.4-6.5) Lymphocytes # (Auto) 0.78 K/uL (1.2-3.4) Monocytes # (Auto) 0.52 K/uL (0.11-0.59) Eosinophils # (Auto) 0.10 K/uL (0-0.5) Basophils # (Auto) 0.05 K/uL (0-0.2) RDW Standard Deviation 48.1 fL (36.4-46.3) RDW Coefficient of Variation 15.0 % (11.5-14.5) Immature Granulocyte % (Auto) 0.7 % Immature Granulocyte # (Auto) 0.07 K/uL (0.00-0.02) Red Blood Cell Morphology Unremarkable Anion Gap 9.0 mmol/L (3-11) Est Creatinine Clear Calc Drug Dose 13.4 ml/min Estimated GFR () 17.5 Estimated GFR (Non- 15.1 BUN/Creatinine Ratio 18.4 (10-20) Calcium Level 7.9 mg/dl (8.5-10.1) Total Bilirubin 0.3 mg/dl (0.2-1) Direct Bilirubin < 0.1 mg/dl (0-0.2) Aspartate Amino Transf (AST/SGOT) 8 U/L (15-37) Alanine Aminotransferase (ALT/SGPT) 10 U/L (12-78) Alkaline Phosphatase 52 U/L (45-117) Pro-B-Type Natriuretic Peptide 6496 pg/ml (0-1800) Total Protein 5.4 gm/dl (6.4-8.2) Albumin 2.0 gm/dl (3.4-5.0) Lipase 174 U/L (73-393) Bedside Troponin I < 0.030 ng/ml (0-0.045) Laboratory results reviewed by me Medications Administered Medications (Trade) Dose Ordered Sig/Haja Route Start Time Stop Time Status Last Admin Dose Admin Ondansetron HCl (Zofran Inj) 4 mg NOW STAT IV 06/10/17 21:03 06/10/17 21:05 DC 06/10/17 21:39 4 MG Nitroglycerin (Nitrostat Tab) 0.4 mg NOW STAT SL 06/10/17 22:51 06/10/17 22:54 DC 06/10/17 23:24 0.4 MG Hydralazine HCl (Apresoline Tab) 100 mg NOW STAT PO 06/10/17 22:51 06/10/17 22:54 DC 06/10/17 23:24 50 MG Furosemide (Lasix Inj) 40 mg STK-MED ONCE .ROUTE 06/10/17 23:06 06/10/17 23:07 DC 06/10/17 23:24 40 MG Ondansetron HCl (Zofran Inj) 4 mg STK-MED ONCE .ROUTE 06/10/17 23:19 06/10/17 23:20 DC 06/10/17 23:23 4 MG ECG Per My Interpretation Indication: SOB/dyspnea Rate (beats per minute): 69 Rhythm: normal sinus Findings: RBBB, T-wave inversion (Anterior and L3), other (Wide QRS and Normal axis.) Change: no significant change (when compared to 05/19/2017) ED Course 2049: The patient was evaluated in room C12B. A complete history and physical exam was performed. 2249: The patient failed an ambulatory trial. 2306: I reassessed the patient at this time. She is feeling better and resting comfortably. I discussed the results and treatment plan with the patient. I answered all pertaining questions that she had. She expressed understanding and verbalized agreement. The patient will be discharged home. 2309: I spoke [place]. Velazco, [facility] We discussed the patient's case. The patient will be evaluated by the [facility] for further management. Medical Decision The patient is an 82 year old white female with a past medical history of pacemaker, CKD, CAD, DM, HLD, HTN, and PNA who presents to the ED with complaints of persistent cough two days ago. Prior records/ancillary studies reviewed. Triage Nursing notes reviewed. Additional history obtained from the family. The patient's history was concerning for respiratory difficulties. Differential diagnosis: Etiologies such as infections, reactive airway disease, pneumonia, pneumothorax , COPD, CHF, cardiac ischemia, pulmonary embolism, musculoskeletal, gastrointestinal, as well as others were entertained. Patient was seen and evaluated at the bedside. Patient does have a fairly complicated past medical history and was recently admitted and discharged status post pneumonia last month. Patient has complained of persistent cough with some associated bilateral lower extremity swelling. Patient does have some mild shortness of breath as well. The patient does have coarse breath sounds throughout. The patient has completed her antibiotics although she is continued monotherapy for some cellulitis that was recently noted on her bilateral lower extremities. Per the daughter who is at bedside this cellulitic change has improved since being started on her antibiotic therapy. Patient did have blood work completed, chest x-ray, EKG. Patient's EKG fairly unchanged. Patient's chest x-ray does show some pulmonary vascular congestion. Cannot rule out pneumonia. Patient did have an ambulatory trial where she did become tachypneic with a respiratory rate of 29 and O2 sat of 86% on room air. The patient does not use supplemental oxygen at home or at rehab. Patient does have an elevated BNP of the this is somewhat chronic. Patient's troponin is negative. Patient does not have an elevated white blood cell count. Given this I believe that she may be more likely a CHF exacerbation. The patient was given 20 of Lasix IV. Patient also does have an elevated blood pressure. She was given nitroglycerin as well as her home dose of hydralazine. Patient does have some CKD however it appears fairly unchanged from prior. Patient does have some mild hyperglycemia with a blood sugar of 190. Patient does have mild hypocalcemia. I did discuss the patient with the hospitalist and given the patient's age, comorbidities, shortness of breath, and new oxygen requirement I believe she would benefit from further evaluation and treatment. Antibiotics if needed were deferred to the inpatient team for possible concomitant pneumonia. For the time being she was treated as a CHF exacerbation. Patient was admitted to the medicine service. Medication Reconcilliation Current Medication List: was personally reviewed by me Blood Pressure Screening Patient's blood pressure: Elevated blood pressure Blood pressure disposition: Referred to PCP Consults Time Called: 2309 Consulting Physician: Dr. Velazco [facility] [place] I spoke with Dr. Velazco [facility] [place]. We discussed the patient's case. The patient will be evaluated by the [facility] for further management. Impression Primary Impression: SOB (shortness of breath) Additional Impressions: CHF exacerbation Anemia Hypocalcemia Hyperglycemia Scribe Attestation The scribe's documentation has been prepared under my direction and personally reviewed by me in its entirety. I confirm that the note above accurately reflects all work, treatment, procedures, and medical decision making performed by me. Departure Information Dispostion Being Evaluated By Hospitalist Referrals RV. Noyola MD (PCP) Patient Instructions My [facility] Problem Qualifiers Additional Impressions: CHF exacerbation Heart failure type: unspecified Qualified Codes: I50.9 - Heart failure, unspecified Anemia Anemia type: unspecified type Qualified Codes: D64.9 - Anemia, unspecified
[2017-06-10] MEDS ORDERED: FURO-85 PO (21:41)
[2017-06-10] MEDS ORDERED: AMOX875T PO (21:41)
[2017-06-10] MEDS ORDERED: MELA1TAB5 PO (21:41)
[2017-06-10 22:02] LABS: ALT/SGPT 10 U/L (12-78); BLOOD UREA NITROGEN 51 mg/dl (7-18); CALCIUM 7.9 mg/dl (8.5-10.1); CARBON DIOXIDE 23 mmol/L (21-32); CREATININE 2.78 mg/dl (0.60-1.20); GLUCOSE 191 mg/dl (70-99); LIPASE 174 U/L (73-393); POTASSIUM 4.6 mmol/L (3.5-5.1); SODIUM 139 mmol/L (136-145)
[2017-06-10 22:07] LABS: ALKALINE PHOSPHATASE 52 U/L (45-117); AST/SGOT 8 U/L (15-37); TOTAL PROTEIN 5.4 gm/dl (6.4-8.2)
--- NOTE | 2017-06-10 22:09 | DIAGNOSTIC IMAGING REPORT ---
AP CHEST WITH ABDOMINAL SERIES CLINICAL HISTORY: Generalized abdominal pain. FINDINGS: An AP chest radiograph is compared to study dated 05/19/2017. The examination is degraded by apical lordotic positioning. A 2-lead cardiac pacemaker is unchanged in position and partially obscures the left upper chest. The patient is status post midline sternotomy. The heart is enlarged and there is atherosclerotic calcification of the thoracic aorta. There is pulmonary vascular congestion. Small pleural effusions are identified. Bibasilar airspace opacities are observed. No pneumothorax is seen. The skeletal structures are osteopenic. The bony thorax is grossly intact. Supine and decubitus abdominal radiographs are correlated with abdominal CT dated 04/14/2017. There is a nonobstructed abdominal bowel gas pattern. No evidence of intraperitoneal free air is seen. Calcified gallstones are identified in the right upper quadrant. Phleboliths are observed in the pelvis. There is moderate lumbosacral spondylosis and scoliosis. The bony pelvis appear intact. IMPRESSION: 1. Cardiomegaly and cardiac pacemaker. There is pulmonary vascular congestion. 2. Small pleural effusions are identified. Bibasilar airspace opacities likely represent atelectasis. Correlate clinically for evidence of superimposed pneumonia/aspiration pneumonitis. 3. Nonobstructed abdominal bowel gas pattern. 4. Cholelithiasis. Electronically signed by: William Villanueva M.D. 06/10/2017 10:08 PM Dictated Date/Time: 06/10/2017 10:05 PM
[2017-06-10 22:10] LABS: HEMATOCRIT 26.2 % (37-47); HEMOGLOBIN 8.7 g/dL (12.0-16.0); MEAN CELL VOLUME 87.3 fL (80-100); MEAN CORPUSCULAR HGB CONC 33.2 g/dl (32-36); MEAN PLATELET VOLUME 8.8 fL (7.4-10.4); PLATELET COUNT 155 K/uL (130-400); RED CELL DISTRIBUTION WIDTH SD 48.1 fL (36.4-46.3); WHITE BLOOD COUNT 10.02 K/uL (4.8-10.8)
[2017-06-10] MEDS ORDERED: FUROSEMIDE INJ 20 MG in SYRINGE 0 ML IV ONE (22:30)
[2017-06-10] MEDS ORDERED: NITROGLYCERIN 0.4 MG SL PER TAB CHARGE SL STA (22:51)
[2017-06-10 22:59] LABS: BASO % 0.5 %; BASO ABS # 0.05 K/uL (0-0.2); IG# 0.07 K/uL (0.00-0.02); LYMPH % 7.8 %; LYMPH ABS # 0.78 K/uL (1.2-3.4); MONO % 5.2 %; MONO ABS # 0.52 K/uL (0.11-0.59); NEUT % 84.8 %
[2017-06-10] MEDS ORDERED: FUROSEMIDE 40 MG/4 ML VIAL ONE (23:06)
[2017-06-10] MEDS ORDERED: ONDANSETRON INJ 2 MG/ML 2 ML VIAL ONE (23:19)
[2017-06-11] VITALS (16 sets, daily range): BP systolic 141–214; BP diastolic 54–75; PULSE 59–77; TEMP 36.4–36.9; O2SAT 97–98; BMI 33.6
[2017-06-11] MEDS ORDERED: POLYETHYLENE (MIRALAX) 17 GM PACK PO PRN (01:00)
[2017-06-11] MEDS ORDERED: ACETAMINOPHEN 325 MG TAB PO PRN (01:00)
[2017-06-11] MEDS ORDERED: ALUMINUM/MAGNESIUM/SIMETH (MAALOX MAX) 30 ML UDC PO PRN (01:00)
[2017-06-11] MEDS ORDERED: NITROGLYCERIN 0.4 MG SL PER TAB CHARGE SL PRN (01:00)
[2017-06-11] MEDS ORDERED: MoRPHine SULFATE 2 MG/ML CARP IV PRN (01:00)
--- NOTE | 2017-06-11 01:06 | History and Physical ---
History & Physical Date & Time of Service: Jun 11, 2017 at 00:12 Chief Complaint: Nausea Primary Care Physician: RV. 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 Recent admissions for UTI, ARF, Cdiff. Admitted 05/19 with PNM and medication-induced agranulocytosis/neutropenia 05/19, DCd 05/26 to a rehab facility. She presents from the rehab facility with a persistent productive cough, SOB, nausea, weakness and a poor appetite. She denies CP, vomiting or dysuria. She is afebrile on arrival. Her initial SBP was over 200. She is mildly hypoxic. A CXR is consistent with vascular congestion but could not r/o superimposed PNM. 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 Family History No pertinent family history Social History Smoking Status: Never Smoker Drug Use: none Marital Status: Housing status: lives with family Occupational Status: retired Immunizations History of Influenza Vaccine: N/A History of Tetanus Vaccine?: Yes History of Pneumococcal: Yes History of Hepatitis B Vaccine: No Allergies Coded Allergies: Carbamazepine (Verified Allergy, Intermediate, RASH, 06/10/17) Erythromycin (Verified Allergy, Intermediate, RASH, 06/10/17) Carvedilol (Verified Adverse Reaction, Intermediate, DIZZINESS, VISUAL DISTURBANCES, 06/10/17) Statins (Verified Adverse Reaction, Intermediate, MUSCLE ACHES, 06/10/17) Home Medications Scheduled Alprazolam (Xanax), 0.5 MG PO HS Amoxicillin & Pot Clavulanate (Augmentin 875-125 mg), 1 TAB PO BID Aspirin (Aspirin Ec), 81 MG PO QAM Cholecalciferol (Vitamin D3), 1 TAB PO QDL Cyclosporine (Ophth) (Restasis), 1 DROP OP BID Ezetimibe (Zetia), 10 MG PO QAM Felodipine (Plendil), 5 MG PO HS Fluorouracil (Topical) (Efudex), 1 APPLN TOP BID Furosemide (Lasix), 20 MG PO DAILY Hydralazine Hcl (Apresoline), 2 TAB PO TID Insulin Aspart (Novolog Flexpen), 0 UNITS SC AC Insulin Glargine (Lantus Solostar), 16 UNITS SC QPM Isosorbide Mononitrate Ext Rel (Imdur Ext Rel), 60 MG PO BID Labetalol Hcl (Labetalol Hcl), 200 MG PO BID Sullivan-3 Fatty Acids (Fish Oil), 1,000 MG PO DAILY Quetiapine Fumarate (Quetiapine Fumarate), 25 MG PO HS Scheduled PRN Acetaminophen (Tylenol Extra Strength), 500-1,000 MG PO TID PRN for Pain Ipratropium-Albuterol (Duoneb), 3 ML INH Q6R PRN for Shortness of Breath Melatonin (Kp Melatonin), 3 MG PO HS PRN for Sleep Review of Systems Constitutional: + weakness, + fatigue, No fever, No chills, No sweats Eyes: No worsening of vision ENT: No hearing loss, No nasal symptoms Respiratory: + cough, + sputum, + shortness of breath, + dyspnea on exertion, + dyspnea at rest Cardiovascular: + orthopnea, No chest pain, No PND Abdomen: + nausea, + problem reported (poor appetitie), No pain Musculoskeletal: No joint pain Genitourinary - Female: No dysuria, No urinary frequency, No urinary urgency Neurologic: + weakness, No memory loss Psychiatric: + depression symptoms Endocrine: + fatigue Hematologic / Lymphatic: No abnormal bleeding/bruising Integumentary: + rash (Several erythematous patches over extremities) Allergic / Immunologic: No environmental allergies Physical Exam Vital Signs Date Time Temp Pulse Resp B/P (MAP) Pulse Ox O2 Delivery O2 Flow Rate FiO2 06/10/17 23:28 67 20 201/68 97 Nasal Cannula 2.5 06/10/17 22:34 96 26 212/98 86 Room Air 06/10/17 20:59 76 06/10/17 20:45 96 Nasal Cannula 2.0 06/10/17 20:40 36.8 63 22 204/75 89 Room Air 06/10/17 20:40 89 Room Air General Appearance: WD/WN, no apparent distress Head: normocephalic, + pertinent finding (alopecia noted) Eyes: normal inspection ENT: normal ENT inspection, pharynx normal Neck: supple, + pertinent finding (JVD is difficult to evaluate due to habitus) Respiratory/Chest: chest non-tender, + pertinent finding (BL crackles at bases - poor air entry) Cardiovascular: regular rate, rhythm, no gallop, + systolic murmur Abdomen/GI: normal bowel sounds, non tender, soft Back: normal inspection, no CVA tenderness Extremities/Musculoskelatal: no calf tenderness, + pedal edema, + pertinent finding (Erythematous patches on distal upper and lower extremities) Neurologic/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 as tested, no motor/sensory deficits, alert, oriented x 3 Skin: + pertinent finding (Patches of dry erythematous skin - no clear evidence of cullulitis - found on diatl extremities) Diagnostics Laboratory Results Results Past 24 Hours Test 06/10/17 21:30 06/10/17 21:39 Range/Units White Blood Count 10.02 4.8-10.8 K/uL Red Blood Count 3.00 4.2-5.4 M/uL Hemoglobin 8.7 12.0-16.0 g/dL Hematocrit 26.2 37-47 % Mean Corpuscular Volume 87.3 80-100 fL Mean Corpuscular Hemoglobin 29.0 25-34 pg Mean Corpuscular Hemoglobin Concent 33.2 32-36 g/dl Platelet Count 155 130-400 K/uL Mean Platelet Volume 8.8 7.4-10.4 fL Neutrophils (%) (Auto) 84.8 % Lymphocytes (%) (Auto) 7.8 % Monocytes (%) (Auto) 5.2 % Eosinophils (%) (Auto) 1.0 % Basophils (%) (Auto) 0.5 % Neutrophils # (Auto) 8.50 1.4-6.5 K/uL Lymphocytes # (Auto) 0.78 1.2-3.4 K/uL Monocytes # (Auto) 0.52 0.11-0.59 K/uL Eosinophils # (Auto) 0.10 0-0.5 K/uL Basophils # (Auto) 0.05 0-0.2 K/uL RDW Standard Deviation 48.1 36.4-46.3 fL RDW Coefficient of Variation 15.0 11.5-14.5 % Immature Granulocyte % (Auto) 0.7 % Immature Granulocyte # (Auto) 0.07 0.00-0.02 K/uL Red Blood Cell Morphology Unremarkable Sodium Level 139 136-145 mmol/L Potassium Level 4.6 3.5-5.1 mmol/L Chloride Level 107 98-107 mmol/L Carbon Dioxide Level 23 21-32 mmol/L Anion Gap 9.0 3-11 mmol/L Blood Urea Nitrogen 51 7-18 mg/dl Creatinine 2.78 0.60-1.20 mg/dl Est Creatinine Clear Calc Drug Dose 13.4 ml/min Estimated GFR () 17.5 Estimated GFR (Non- 15.1 BUN/Creatinine Ratio 18.4 10-20 Random Glucose 191 70-99 mg/dl Calcium Level 7.9 8.5-10.1 mg/dl Total Bilirubin 0.3 0.2-1 mg/dl Direct Bilirubin < 0.1 0-0.2 mg/dl Aspartate Amino Transf (AST/SGOT) 8 15-37 U/L Alanine Aminotransferase (ALT/SGPT) 10 12-78 U/L Alkaline Phosphatase 52 45-117 U/L Pro-B-Type Natriuretic Peptide 6496 0-1800 pg/ml Total Protein 5.4 6.4-8.2 gm/dl Albumin 2.0 3.4-5.0 gm/dl Lipase 174 73-393 U/L Bedside Troponin I < 0.030 0-0.045 ng/ml Diagnostic Radiology CXR: 1. Cardiomegaly and cardiac pacemaker. There is pulmonary vascular congestion. 2. Small pleural effusions are identified. Bibasilar airspace opacities likely represent atelectasis. Correlate clinically for evidence of superimposed pneumonia/aspiration pneumonitis. 3. Nonobstructed abdominal bowel gas pattern. 4. Cholelithiasis. 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 Recent admissions for UTI, ARF, Cdiff. Admitted 05/19 with PNM and medication-induced agranulocytosis/neutropenia 05/19, DCd 05/26 to a rehab facility. She presents from the rehab facility with a persistent productive cough, SOB, nausea, weakness and a poor appetite. She denies CP, vomiting or dysuria. She is afebrile on arrival. Her initial SBP was over 200. She is mildly hypoxic. A CXR is consistent with vascular congestion but could not r/o superimposed PNM. 1) SOB - likely related to CHF exacerbation. She received additional Lasix in the ER. I/O and daily weights requested. Her volume status is difficult to assess clinically due to her habitus and anasarca which may be a result of protein malnutrition. Cont Labetalol. Lasix dose increased to 20mg BID IV - will need to use with caution as her renal function worsened previously with increased dose. As there is the possibility of superimposed HCAP and possibly aspiration, we will send her for a CT chest. A swallow eval has been ordered for AM. Antibiotics will be provided if merited based on CT results. She does not exhibit a fever or leukocytosis presently. She was DCd with a combination of Doxy and Cefdinir on 05/26 and appears to have been switched to Augmentin at the rehab facility. These are held pending further evaluation as it is not clear she has an acute infection and she recently had C diff. 2) Weakness and poor appetite - she describes persistent nausea. Her labs indicate severe protein malnutrition. Protein supplementation will be added to her diet. She does not currently have abdominal pain or tenderness and believes that her chronic nausea is due to medications. Her list is extensive so that this would be difficult to assess. It should be looked into however if her acute issues are resolved and her nausea does not improve. PT/OT consulted. 3) CKD IV - renal function has improved from recent admission - monitor during diuresis 4) Anemia - she is likely transfusion-dependent - will monitor her Hb and consider transfusion for a value < 8 as she has a history of CAD. 5) CAD - no evidence of ACS - cont ASA, B jose - she is statin-intolerant 8) HTN - poorly controlled on admission - received IV Hydralazine in ER - will apply NTG - cont Hydralazine, Imdur, Labetalol 9) DM - placed on SS + Lantus 10) Erythematous skin patches - cause is not clear - should be referred to derm as these have been present for a while per pt. She was told that they are due to her edema. Full code - Heparin prophylaxis Total time for this admit including review of labs, meds, imaging, records - discussion with pt and ER attending - 50 min Resuscitation Status VTE Prophylaxis Will order VTE Prophylaxis: Yes
[2017-06-11] MEDS ORDERED: NON-FORMULARY MEDICATION (Melatonin (Kp Melatonin) 3 MG) PO PRN (01:15)
[2017-06-11] MEDS ORDERED: ALBUT/IPRATROP 3MG/0.5MG NEB 3 ML VIAL INH PRN (01:15)
[2017-06-11] MEDS ORDERED: NURSING VERBAL MED ORDER ONE ×2 (03:00→09:45)
[2017-06-11] MEDS ORDERED: ALPRAZOLAM 0.5 MG TAB PO ONE (03:45)
[2017-06-11] MEDS ORDERED: GLUCOSE 10 TABS/TUBE PO PRN (03:45)
[2017-06-11] MEDS ORDERED: GLUCOSE 40% GEL 15 GM TUBE PO PRN (03:45)
[2017-06-11] MEDS ORDERED: DEXTROSE 50% 50 ML SYR IV PRN (03:45)
[2017-06-11] MEDS ORDERED: GLUCAGON FOR INJ 1 MG VIAL SQ PRN (03:45)
[2017-06-11] MEDS: NITROGLYCERIN 2% OINTMENT 30GM TUBE EXT SCH ×4 (04:06→21:46)
[2017-06-11] MEDS: HEPARIN SOD 5000 UNIT/0.5 ML CARP SQ SCH ×3 (05:53→21:46)
[2017-06-11] MEDS: INSULIN ASPART 100 UNITS/ML 3 ML PEN SC SCH ×4 (06:30→20:47)
--- NOTE | 2017-06-11 07:11 | DIAGNOSTIC IMAGING REPORT ---
(CHEST) THORAX WITHOUT CLINICAL HISTORY: 82 years-old Female presenting with occult pnm. TECHNIQUE: Multidetector CT imaging of the chest was performed without the use of intravenous contrast. IV contrast: None. A dose lowering technique was used consistent with the principles of ALARA (as low as reasonably achievable). COMPARISON: Chest x-ray from 06/10/2017. CT DOSE (mGy.cm): The estimated cumulative dose is 283.15 mGy.cm. FINDINGS: Wound Care Technician topogram: Left subclavian pacer with leads to the right atrium and right ventricular apex. Median sternotomy wires. Bypass graft rings. Cardiomegaly. Scoliosis. On soft tissue windows, normal thyroid and thoracic inlet. No axillary, supraclavicular, hilar, or mediastinal lymphadenopathy. Atherosclerosis of the aorta. Multichamber enlargement of the heart. Coronary artery calcification. Moderate right and [id number] left pleural effusions. No pericardial effusion. Cholelithiasis. On lung windows, extensive dependent bilateral consolidation with volume loss of the lower lobes. Central airways patent. On bone windows, degenerative changes of the spine. Well-healed sternotomy. IMPRESSION: 1. Moderate right and [id number] left pleural effusions with extensive passive atelectasis. No convincing evidence of pneumonia. 2. Postsurgical changes of coronary artery bypass. Electronically signed by: Abram Cifuentes M.D. 06/11/2017 7:09 AM Dictated Date/Time: 06/11/2017 6:51 AM
[2017-06-11] MEDS: ASPIRIN 81 MG ECTAB PO SCH (08:00)
[2017-06-11] MEDS: ISOSORBIDE MONONITRATE 60 MG TABCR PO SCH ×2 (08:01→21:41)
[2017-06-11] MEDS: LABETALOL HCL 200 MG TAB PO SCH ×2 (08:01→21:41)
[2017-06-11] MEDS: EZETIMIBE 10MG TAB PO SCH (08:01)
[2017-06-11] MEDS: BOOST GLUCOSE CONTROL PO SCH ×2 (08:10→13:59)
[2017-06-11] MEDS ORDERED: FUROSEMIDE INJ 20 MG in SYRINGE 0 ML IV SCH (09:00)
--- NOTE | 2017-06-11 09:05 | Hospitalist Progress Note ---
Hospitalist Progress Note Date of Service Jun 11, 2017. (Fatoumata Varela PA-C) Subjective Pt evaluation today including: conversation w/ patient, physical exam, chart review, lab review, review of studies Pain: None PO Intake: Fair Voiding: no voiding problems The patient was seen and examined this morning. Pt reports feeling ok today, she is recieving a dose of IV lebatalol for BP >200/60. Upon recheck after administration at bedside it is 188/64. This was approximately 2 hours after getting her normally scheduled morning medications. She denies any chest pain/ pressure, palpitations, lightheadedness or dizziness. Her breathing is about the same. She is requiring 2 L O2. At home she normally does not wear this. She is coughing white mucous occasionally. Pts main complaint this morning is how swollen her legs, arms and hands are. She is requesting to see Dr. Noyola during her admission as this is who she follows as an outpatient. We discussed her cr. and BUN and how it is running around her baseline. All her questions and concerns were addressed. Constitutional: No fever, No chills, No sweats, No fatigue Eyes: No redness, No diplopia ENT: No nasal symptoms, No sore throat, No trouble swallowing Respiratory: + cough, + sputum, No dyspnea at rest Cardiovascular: No chest pain, No palpitations Abdomen: + nausea, + diarrhea (twice today), No pain, No vomiting, No constipation, No GI bleeding Musculoskeletal: + swelling Female : No dysuria Skin: + rash (Fatoumata Varela PA-C) Objective Vital Signs Date Time Temp Pulse Resp B/P (MAP) Pulse Ox O2 Delivery O2 Flow Rate FiO2 06/11/17 07:56 67 206/64 (111) 06/11/17 07:29 36.4 60 18 197/75 (115) 98 2.0 06/11/17 06:05 195/67 (109) 06/11/17 04:00 Nasal Cannula 3.0 06/11/17 02:58 36.4 69 22 206/69 Nasal Cannula 3.0 06/11/17 01:37 65 20 163/60 98 Nasal Cannula 3.0 06/11/17 01:01 64 19 176/80 98 Nasal Cannula 2.0 06/11/17 00:53 70 184/79 98 Nasal Cannula 2.0 06/11/17 00:41 60 06/11/17 00:32 67 27 217/78 98 Nasal Cannula 2.0 06/11/17 00:04 66 20 178/78 98 Room Air 06/10/17 23:28 67 20 201/68 97 Nasal Cannula 2.5 06/10/17 22:34 96 26 212/98 86 Room Air 06/10/17 20:59 76 06/10/17 20:45 96 Nasal Cannula 2.0 06/10/17 20:40 36.8 63 22 204/75 89 Room Air 06/10/17 20:40 89 Room Air (Fatoumata Varela PA-C) Physical Exam General Appearance: WD/WN, no apparent distress, + obese Eyes: PERRL, EOMI ENT: hearing grossly normal, pharynx normal, + pertinent finding (MMM) Neck: supple, + pertinent finding (JVD difficult to assess due to body habitus) Respiratory/Chest: no respiratory distress, no accessory muscle use, + pertinent finding (on 2 L, + coase breath sounds throughout with inspiratory and expiratory wheezing, no crackles or rales. ) Cardiovascular: regular rate, rhythm, no murmur Abdomen: normal bowel sounds, non tender, soft Extremities: non-tender, + pedal edema (2+ pitting up to knees bilaterally. + Edema of the hands and arms bilaterally) Neurologic/Psychiatric: alert, normal mood/affect, oriented x 3 Skin: warm/dry, + rash (patchy blanchable erythematous region over the left forearm, left ant tib region. ) (Fatoumata Varela PA-C) Laboratory Results Last 24 Hours Test 06/10/17 21:30 06/10/17 21:39 06/11/17 06:33 06/11/17 07:35 White Blood Count 10.02 K/uL Red Blood Count 3.00 M/uL Hemoglobin 8.7 g/dL Hematocrit 26.2 % Mean Corpuscular Volume 87.3 fL Mean Corpuscular Hemoglobin 29.0 pg Mean Corpuscular Hemoglobin Concent 33.2 g/dl Platelet Count 155 K/uL Mean Platelet Volume 8.8 fL Neutrophils (%) (Auto) 84.8 % Lymphocytes (%) (Auto) 7.8 % Monocytes (%) (Auto) 5.2 % Eosinophils (%) (Auto) 1.0 % Basophils (%) (Auto) 0.5 % Neutrophils # (Auto) 8.50 K/uL Lymphocytes # (Auto) 0.78 K/uL Monocytes # (Auto) 0.52 K/uL Eosinophils # (Auto) 0.10 K/uL Basophils # (Auto) 0.05 K/uL RDW Standard Deviation 48.1 fL RDW Coefficient of Variation 15.0 % Immature Granulocyte % (Auto) 0.7 % Immature Granulocyte # (Auto) 0.07 K/uL Red Blood Cell Morphology Unremarkable Sodium Level 139 mmol/L Potassium Level 4.6 mmol/L Chloride Level 107 mmol/L Carbon Dioxide Level 23 mmol/L Anion Gap 9.0 mmol/L Blood Urea Nitrogen 51 mg/dl Creatinine 2.78 mg/dl Est Creatinine Clear Calc Drug Dose 13.4 ml/min Estimated GFR () 17.5 Estimated GFR (Non- 15.1 BUN/Creatinine Ratio 18.4 Random Glucose 191 mg/dl Calcium Level 7.9 mg/dl Total Bilirubin 0.3 mg/dl Direct Bilirubin < 0.1 mg/dl Aspartate Amino Transf (AST/SGOT) 8 U/L Alanine Aminotransferase (ALT/SGPT) 10 U/L Alkaline Phosphatase 52 U/L Pro-B-Type Natriuretic Peptide 6496 pg/ml Total Protein 5.4 gm/dl Albumin 2.0 gm/dl Lipase 174 U/L Bedside Troponin I < 0.030 ng/ml Urine Color YELLOW Urine Appearance TURBID Urine pH 5.0 Urine Specific [place] 1.013 Urine Protein 3+ Urine Glucose (UA) NEG Urine Ketones NEG Urine Occult Blood NEG Urine Nitrite NEG Urine Bilirubin NEG Urine Urobilinogen NEG Urine Leukocyte Esterase MODERATE Urine WBC (Auto) >30 /hpf Urine RBC (Auto) 0-4 /hpf Urine Hyaline Casts (Auto) 5-10 /lpf Urine Epithelial Cells (Auto) >30 /lpf Urine Bacteria (Auto) NEG Urine Yeast (Auto) BUD W/ HYPHAE Bedside Glucose 130 mg/dl (Fatoumata Varela PA-C) Assessment and Plan 82 y/o F Hx CKD IV, CAD, HTN, HPL, anemia, DM II, chronic diastolic CHF, 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 Recent admissions for UTI, ARF, Cdiff. Admitted 05/19 with PNM and medication-induced agranulocytosis/neutropenia 05/19, DCd 05/26 to a rehab facility. [facility] with a persistent productive cough, SOB, nausea, weakness and a poor appetite. She denies CP, vomiting or dysuria. She is afebrile on arrival. Her initial SBP was over 200. She is mildly hypoxic. A CXR is consistent with vascular congestion but could not r/o superimposed PNM. SOB - likely related to CHF exacerbation. - Lasix given for diuresis in the ER. Lasix dose increased to 20mg BID IV - will need to use with caution as her renal function worsened previously with increased dose. Will consult nephrology per pt request - Strict I/Os, daily weights - volume status is difficult to assess clinically due to her habitus and anasarca which may be a result of protein malnutrition. - Cont Labetalol - 5 mg IV administered for BP > 200/60. Will monitor. Possible superimposed HCAP and possibly aspiration ? Bronchitis? - CT chest negative for evidence of pneumonia. Moderate right and small-to- moderate left pleural effusions with extensive passive atelectasis. - Swallow study today - No abx, no leukocytosis and afebrile. She was DCd with a combination of Doxy and Cefdinir on 05/26 and appears to have been switched to Augmentin at the rehab facility - pt reports this was for the rash on her arms/legs. These are held pending further evaluation as it is not clear she has an acute infection and she recently had C diff. Weakness and poor appetite Severe protein malnutrition - Protein supplementation with boost - She does not currently have abdominal pain or tenderness and believes that her chronic nausea is due to medications. Her list is extensive so that this would be difficult to assess. Pt notes nausea and poor appetite have worsened since her last hospital stay and changes with antihypertensive medications. She specifically reports nausea after lunch when she takes antihypertensives and it lasts throughout the day. - PT/OT consulted. CKD IV - renal function has improved from recent admission - monitor during diuresis - Consult nephrology, Dr. Noyola, per pt request and for increased diuresis. Anemia - she is likely transfusion-dependent - will monitor her Hb and consider transfusion for a value < 8 as she has a history of CAD. CAD - no evidence of ACS - cont ASA, B jose - she is statin-intolerant, felodipine 5 mg PO HS HTN - poorly controlled on admission - received IV Hydralazine in ER - will apply NTG - cont Hydralazine 100 mg TID, Imdur 60 mg BID, Labetalol 200 mg BID - IV lopressor administered as above today DM - placed on SS + Lantus Erythematous skin patches - cause is not clear - pt follows with dermatology as an outpatient already. Rash has occurred since her last admission and has never been present before for a facilities planner to asses. She was told that they are due to her edema at [place]. Insomnia - Continue xanax 0.5 mg HS and seroquel 25 mg HS. DVT ppx: heparin ppx CODE status: Full code Disposition: From [place], to assist with dc planning. (Fatoumata Varela, PA-C) Reviewed: Pt Seen/Exam by Me (Meryl Tiwari, ) History Feels her SOB is improving. Still with nausea which she relates to medications that were changed on last admission. Has had some PO but overall decreased. BP improved to 170s systolic s/p metoprolol x1 Agree with HPI/ROS as per PA (Meryl Tiwari, DO) General Appearance: WD/WN, no apparent distress Eye Exam: bilateral eye normal inspection, bilateral eye other (nml sclera) Respiratory: no respiratory distress, wheezing Cardiovascular: normal peripheral pulses, regular rate, rhythm Gastrointestinal: non tender, soft Extremities: non-tender, no pedal edema Neurologic/Psychiatric: alert, normal mood/affect Skin Characteristics: normal color, warm/dry (Meryl Tiwari, ) Assessment/Plan Agree with plan as outlined above CHF vs PNA, likely CHF Elevated BP, to examine changes in meds on d/c and discuss Nausea, possibly medication related as well (Meryl Tiwari, DO)
[2017-06-11] MEDS ORDERED: METOPROLOL TARTRATE 1 MG/ML VIAL IV ONE (10:00)
[2017-06-11] MEDS ORDERED: FUROSEMIDE INJ 80 MG in SYRINGE 0 ML IV ONE (12:30)
--- NOTE | 2017-06-11 14:16 | Nephrology Consultation ---
Nephrology Consultation Date & Providers Date of Consultation: Jun 11, 2017. Primary Care Provider: RV. Noyola MD Referring Provider: Reason for Consultation Evaluation and management for hypertensive urgency and chronic kidney disease. History of Present Illness Nava Dominguez is a 82-year-old female with past medical history significant for hypertension, diabetes, stage 4 chronic kidney disease and prior history of coronary artery disease and CHF admitted to the hospital with shortness of breath secondary to volume overload, Pl effusion and hypertensive urgency. Nephrologic consult was requested for further evaluation and management. Electronic medical records including labs and imaging are reviewed in detail during patient's visit. Nava presented to the hospital yesterday with several days history of cough, shortness of breath, weakness and poor p.o. intake. On admission she was found to be volume overloaded the, pulmonary congestion with bilateral plural effusion and hypertensive urgency. She was started on IV lasix 20 mg BID ( home dose lasix 20/d) . Lab showed creatinine 2.8 which is close to her baseline. She has history of recurrent hospital admission over last few months with multiple issues including CHF exacerbation, urinary tract infection and pancytopenia. 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 Currently she follows with Hematology. She was discharged from hospital on 05/26/2017 to a rehab facility in [place]. She was seen by Dr. Noyola for follow-up on 06/01/2017 when she was found to be otherwise at baseline. However, she mentioned since her discharged she has been having cough which improved for few days but again worsened over last few days. Has been having poor appetite, nausea and dry heave. Nava has history of stage 4 chronic kidney disease baseline creatinine lately has been around 3, eGFR 15-20. Chronic kidney disease most likely secondary to hypertensive and diabetic nephropathy. Has almost 1 grams of proteinuria. Prior renal ultrasound was unremarkable with bilateral kidney around 10 cm. She has been following with Dr. Noyola for chronic kidney disease. Recently she was referred to vascular surgery for AV fistula placement for possible dialysis in near future however she could not make it to the appointment due to repeated hospital admission. Currently her shortness of breath seems to have improved somewhat with NC O2 but overall continues to feel poorly. Denies any chest pain. No fever or chills. Allergies Coded Allergies: Carbamazepine (Verified Allergy, Intermediate, RASH, 06/10/17) Erythromycin (Verified Allergy, Intermediate, RASH, 06/10/17) Carvedilol (Verified Adverse Reaction, Intermediate, DIZZINESS, VISUAL DISTURBANCES, 06/10/17) Statins (Verified Adverse Reaction, Intermediate, MUSCLE ACHES, 06/10/17) Inpatient Medications Current Inpatient Medications Medications (Trade) Dose Ordered Sig/Haja Route Start Time Stop Time Status Last Admin Dose Admin Heparin Sodium (Porcine) (Heparin Sq 5000 Unit/0.5ml) 5,000 unit Q8H SQ 06/11/17 06:00 07/11/17 05:59 06/11/17 05:53 5,000 UNIT Acetaminophen (Tylenol Tab) 650 mg Q4H PRN PO 06/11/17 01:00 07/11/17 00:59 Al Hydrox/Mg Hydrox/Simethicone (Maalox Max Susp) 15 ml Q4H PRN PO 06/11/17 01:00 07/11/17 00:59 Magnesium Hydroxide (Milk Of Magnesia Susp) 30 ml Q12H PRN PO 06/11/17 01:00 07/11/17 00:59 Ondansetron HCl (Zofran Inj) 4 mg Q6H PRN IV 06/11/17 01:00 07/11/17 00:59 Nitroglycerin (Nitrostat Tab) 0.4 mg UD PRN SL 06/11/17 01:00 07/11/17 00:59 Nitroglycerin (Nitroglycerin 2% Oint) 1 inch Q6H EXT 06/11/17 03:30 07/11/17 03:29 06/11/17 08:51 1 INCH Morphine Sulfate (MoRPHine SULFATE INJ) 2 mg Q30M PRN IV 06/11/17 01:00 06/25/17 00:59 Polyethylene (Miralax Powder Packet) 17 gm DAILY PRN PO 06/11/17 01:00 07/11/17 00:59 Alprazolam (Xanax Tab) 0.5 mg HS PO 06/11/17 21:00 07/11/17 20:59 Aspirin (Ecotrin Tab) 81 mg QAM PO 06/11/17 09:00 07/11/17 08:59 06/11/17 08:00 81 MG EZETIMIBE (Zetia Tab) 10 mg QAM PO 06/11/17 09:00 07/11/17 08:59 06/11/17 08:01 10 MG Felodipine (Plendil Tabcr) 5 mg HS PO 06/11/17 21:00 07/11/17 20:59 Hydralazine HCl (Apresoline Tab) 100 mg TID PO 06/11/17 09:00 07/11/17 08:59 06/11/17 06:31 100 MG Insulin Glargine (Lantus Solostar Pen) 16 units QPM SC 06/11/17 21:00 07/11/17 20:59 Albuterol/ Ipratropium (Duoneb) 3 ml Q6R PRN INH 06/11/17 01:15 07/11/17 01:14 Isosorbide Mononitrate (Imdur Ext Rel Tab) 60 mg BID PO 06/11/17 09:00 07/11/17 08:59 06/11/17 08:01 60 MG Labetalol HCl (Normodyne Tab) 200 mg BID PO 06/11/17 09:00 07/11/17 08:59 06/11/17 08:01 200 MG Quetiapine Fumarate (seroQUEL TAB) 25 mg HS PO 06/11/17 21:00 07/11/17 20:59 Miscellaneous Information (Order Awaiting Action) 1 ea QS N/A 06/11/17 08:00 07/11/17 07:59 Miscellaneous Information (Order Awaiting Action) 1 ea QS N/A 06/11/17 08:00 07/11/17 07:59 Enteral Nutritional Formula (Boost Glucose Control) 1 can TID PO 06/11/17 09:00 07/11/17 08:59 06/11/17 08:10 1 CAN Insulin Aspart (novoLOG ASPART) SLIDING SCALE G... ACHS SC 06/11/17 06:30 07/11/17 06:59 Furosemide 20 mg/ Syringe 2 ml @ 4 mls/min BID IV 06/11/17 09:00 07/11/17 08:59 06/11/17 08:00 4 MLS/MIN Glucose (Glucose 40% Gel) 15-30 GRAMS 15 GRAMS... UD PRN PO 06/11/17 03:45 07/11/17 03:44 Glucose (Glucose Chew Tab) 4-8 Tablets 4 Tabl... UD PRN PO 06/11/17 03:45 07/11/17 03:44 Dextrose (Dextrose 50% 50ML Syringe) 25-50ML OF 50% DW IV FOR... UD PRN IV 06/11/17 03:45 07/11/17 03:44 Glucagon (Glucagon Inj) 1 mg UD PRN SQ 06/11/17 03:45 07/11/17 03:44 Family History No pertinent family history Social History Smoking Status: Never Smoker Drug Use: none Marital Status: Housing Status: lives with family Occupation: retired Review of Systems A complete review of systems was performed. Pertinent positives are noted above. All other systems are negative. Physical Exam Date Time Temp Pulse Resp B/P (MAP) Pulse Ox O2 Delivery O2 Flow Rate FiO2 06/11/17 10:51 60 163/62 (95) 06/11/17 09:59 68 188/68 06/11/17 09:56 77 188/68 (108) 06/11/17 09:38 202/68 (112) 06/11/17 09:32 67 214/64 (114) 06/11/17 08:00 Nasal Cannula 2.0 06/11/17 07:56 67 206/64 (111) 06/11/17 07:29 36.4 60 18 197/75 (115) 98 2.0 06/11/17 06:05 195/67 (109) 06/11/17 04:00 Nasal Cannula 3.0 06/11/17 02:58 36.4 69 22 206/69 Nasal Cannula 3.0 06/11/17 01:37 65 20 163/60 98 Nasal Cannula 3.0 06/11/17 01:01 64 19 176/80 98 Nasal Cannula 2.0 06/11/17 00:53 70 184/79 98 Nasal Cannula 2.0 06/11/17 00:41 60 06/11/17 00:32 67 27 217/78 98 Nasal Cannula 2.0 06/11/17 00:04 66 20 178/78 98 Room Air 06/10/17 23:28 67 20 201/68 97 Nasal Cannula 2.5 06/10/17 22:34 96 26 212/98 86 Room Air 06/10/17 20:59 76 06/10/17 20:45 96 Nasal Cannula 2.0 06/10/17 20:40 36.8 63 22 204/75 89 Room Air 06/10/17 20:40 89 Room Air GENERAL: Elderly female, AAA x 3, pleasant,ill-appearing, in mild to moderate resp distress. HEENT: Atraumatic, normocephalic. NECK: Supple, no JVD, no carotid bruit appreciated. ENT: No sinus tenderness MOUTH and THROAT: Moist oral mucosa, no oral ulcer or pharyngeal erythema RESPIRATORY: crackles bilaterally with occasional wheezes CARDIOVASCULAR: S1, S2 normal, rate rhythm regular. ABDOMEN: Soft, nontender, positive bowel sound. MUSCULOSKELETAL: No CVA tenderness. No joint swelling, erythema or tenderness. Normal range of motion. SKIN: No skin rash EXTREMITY: 2 + B/L upper and lower extremity edema NEURO: No gross focal neurological deficit, speech fluent. PSYCHIATRY: Normal mood and judgment Laboratory Results Last 24 Hours Test 06/10/17 21:30 06/10/17 21:39 06/11/17 06:33 06/11/17 07:35 White Blood Count 10.02 K/uL Red Blood Count 3.00 M/uL Hemoglobin 8.7 g/dL Hematocrit 26.2 % Mean Corpuscular Volume 87.3 fL Mean Corpuscular Hemoglobin 29.0 pg Mean Corpuscular Hemoglobin Concent 33.2 g/dl Platelet Count 155 K/uL Mean Platelet Volume 8.8 fL Neutrophils (%) (Auto) 84.8 % Lymphocytes (%) (Auto) 7.8 % Monocytes (%) (Auto) 5.2 % Eosinophils (%) (Auto) 1.0 % Basophils (%) (Auto) 0.5 % Neutrophils # (Auto) 8.50 K/uL Lymphocytes # (Auto) 0.78 K/uL Monocytes # (Auto) 0.52 K/uL Eosinophils # (Auto) 0.10 K/uL Basophils # (Auto) 0.05 K/uL RDW Standard Deviation 48.1 fL RDW Coefficient of Variation 15.0 % Immature Granulocyte % (Auto) 0.7 % Immature Granulocyte # (Auto) 0.07 K/uL Red Blood Cell Morphology Unremarkable Sodium Level 139 mmol/L Potassium Level 4.6 mmol/L Chloride Level 107 mmol/L Carbon Dioxide Level 23 mmol/L Anion Gap 9.0 mmol/L Blood Urea Nitrogen 51 mg/dl Creatinine 2.78 mg/dl Est Creatinine Clear Calc Drug Dose 13.4 ml/min Estimated GFR () 17.5 Estimated GFR (Non- 15.1 BUN/Creatinine Ratio 18.4 Random Glucose 191 mg/dl Calcium Level 7.9 mg/dl Total Bilirubin 0.3 mg/dl Direct Bilirubin < 0.1 mg/dl Aspartate Amino Transf (AST/SGOT) 8 U/L Alanine Aminotransferase (ALT/SGPT) 10 U/L Alkaline Phosphatase 52 U/L Pro-B-Type Natriuretic Peptide 6496 pg/ml Total Protein 5.4 gm/dl Albumin 2.0 gm/dl Lipase 174 U/L Bedside Troponin I < 0.030 ng/ml Urine Color YELLOW Urine Appearance TURBID Urine pH 5.0 Urine Specific [place] 1.013 Urine Protein 3+ Urine Glucose (UA) NEG Urine Ketones NEG Urine Occult Blood NEG Urine Nitrite NEG Urine Bilirubin NEG Urine Urobilinogen NEG Urine Leukocyte Esterase MODERATE Urine WBC (Auto) >30 /hpf Urine RBC (Auto) 0-4 /hpf Urine Hyaline Casts (Auto) 5-10 /lpf Urine Epithelial Cells (Auto) >30 /lpf Urine Bacteria (Auto) NEG Urine Yeast (Auto) BUD W/ HYPHAE Bedside Glucose 130 mg/dl Test 06/11/17 11:13 Bedside Glucose 197 mg/dl Tonny Vick is a 82-year-old female with stage 4 chronic kidney disease, hypertension , diabetes, CHF and prior history of coronary artery disease status post CABG admitted to the hospital with CHF exacerbation, pleural effusion and hypertensive urgency. Her renal function seems to be at baseline, creatinine on admission was 2.8 and her baseline creatinine lately has been running around 3. Has stage 4 chronic kidney disease secondary to hypertensive and diabetic nephropathy, creatinine staying around 3.0 in GFR around 15-20 percent. Has 1 grams of proteinuria. Prior renal ultrasound was unremarkable. She was recently referred to vascular surgery however could not make the appointment due to recurrent hospital admission. Currently her renal function seems to be at baseline, electrolyte acceptable. She seems volume overloaded. Blood pressure systolic still staying around 170s to 180s. Recommendations --continue on diuretics to achieve euvolemia however renal function might worsen with baseline significantly low eGFR. Explained to pt that we will need to accept azotemia to improve volume status. --need to monitor renal function and electrolytes closely however she may be getting close to needing dialysis in near future --increase lasix to 40 mg BID, will give 1 dose of lasix 80 mg IV now --check iron study, PTH, phos --consult vascular surgery for evaluation for AVF placement for need for HD in near future Thank you for allowing me to participate in your patient's care. It was a pleasure to see Nava
[2017-06-11] MEDS ORDERED: FELODIPINE 5 MG TABCR PO SCH (21:00)
[2017-06-11] MEDS: FUROSEMIDE INJ 40 MG in SYRINGE 0 ML IV SCH (21:40)
[2017-06-11] MEDS: ALPRAZOLAM 0.5 MG TAB PO SCH (21:41)
[2017-06-11] MEDS: QUETIAPINE FUMARATE 25 MG TAB PO SCH (21:41)
[2017-06-11] MEDS: INSULIN GLARGINE SOLOSTAR 100 UNITS/ML 3 ML PEN SC SCH (21:45)
[2017-06-11] MEDS: FELODIPINE 5 MG TABCR PO SCH (23:36)
[2017-06-12] VITALS (10 sets, daily range): BP systolic 149–184; BP diastolic 56–69; PULSE 59–64; TEMP 36.3–36.8; O2SAT 95–98
[2017-06-12] MEDS: NITROGLYCERIN 2% OINTMENT 30GM TUBE EXT SCH ×4 (03:37→21:17)
[2017-06-12] MEDS: HEPARIN SOD 5000 UNIT/0.5 ML CARP SQ SCH ×3 (06:01→21:05)
[2017-06-12] MEDS: INSULIN ASPART 100 UNITS/ML 3 ML PEN SC SCH ×4 (06:30→21:02)
[2017-06-12 06:32] LABS: CREATININE 3.04 mg/dl (0.60-1.20); POTASSIUM 4.1 mmol/L (3.5-5.1)
[2017-06-12 06:37] LABS: PHOSPHORUS 4.4 mg/dl (2.5-4.9)
--- NOTE | 2017-06-12 08:53 | Clinical Documentation Query ---
CLINICAL DOCUMENTATION QUERY 82 yo female admitted with CHF exacerbation. An echo done 04/05/17 showed moderate concentric LVH, grade I diastolic dysfunction and EF = 65-70%. She has a history of chronic diastolic CHF. In your clinical opinion is this patient being managed for: ( x) Acute on chronic diastolic (congestive) heart failure ( ) Not Agree ( ) Other explanation of clinical findings (Please Explain) ( ) Unable to determine (Please Define) ( ) Need to Discuss The medical record reflects the following clinical findings, treatment, and risk factors. Clinical Indicators: As above, 2+ pitting edema bilaterally, wheezing breath sounds Treatment: O2, Lasix IV, I&O Risk Factors: Age, chronic diastolic CHF, HTN, CKD Please clarify and document your clinical opinion in the progress notes and discharge summary. Terms such as "probable", "suspected", "likely", "questionable", "possible", or "still to be ruled out" are acceptable. IF IN AGREEMENT, YOU MUST DOCUMENT ABOVE DIAGNOSTIC STATEMENT IN DAILY PROGRESS NOTES AND DISCHARGE SUMMARY. This document is not part of the patient's record. Thank You, Melisa Guaman RN [phone]
[2017-06-12] MEDS: BOOST GLUCOSE CONTROL PO SCH ×2 (09:03→17:13)
[2017-06-12] MEDS: MAGNESIUM SULFATE 1GM / D5W 1 GM in PREMIXED IN D5W 100 ML IV SCH ×2 (09:14→10:57)
[2017-06-12] MEDS: ASPIRIN 81 MG ECTAB PO SCH (09:14)
[2017-06-12] MEDS: ISOSORBIDE MONONITRATE 60 MG TABCR PO SCH ×2 (09:14→21:00)
[2017-06-12] MEDS: LABETALOL HCL 200 MG TAB PO SCH ×2 (09:14→21:00)
[2017-06-12] MEDS ORDERED: EPOETIN ALFA 20,000 UNITS/ML VIAL SQ ONE (09:15)
[2017-06-12] MEDS: EZETIMIBE 10MG TAB PO SCH (09:15)
[2017-06-12] MEDS: FUROSEMIDE INJ 40 MG in SYRINGE 0 ML IV SCH ×2 (09:16→20:55)
--- NOTE | 2017-06-12 09:24 | Surgery Consultation ---
Consultation Date of Service Jun 12, 2017. Chief Complaint ESRD, need AVF for HD in future History of Present Illness The patient is a 82 year old female with multiple medical problems, including HTN, CAD s/p CABG and pacemaker, DMII on insulin, CKD III, admitted d/t generalized weakness/illness and cough/SOB, seen in consultation today for AVF creation for future HD. Pt not yet started on HD. Pt admits edema of all 4 extremities chronically, CHAIDEZ, nausea and decreased appetite. States overall she is feeling improved since admission, but not back to baseline. Denies IN, fever, chills, chest pain, abd pain, rest pain, claudication, other complaints. Ambulates with walker, but only short distances. Vitals Vital Signs Past 12 Hours Date Time Temp Pulse Resp B/P (MAP) Pulse Ox O2 Delivery O2 Flow Rate FiO2 06/12/17 09:13 62 177/61 (99) 06/12/17 07:39 36.8 60 16 166/69 (101) 95 Nasal Cannula 2.0 06/12/17 04:00 96 Nasal Cannula 2.0 06/12/17 03:41 36.7 60 22 149/56 (87) 96 Nasal Cannula 2.0 06/12/17 00:00 96 Nasal Cannula 2.0 06/11/17 23:59 36.5 59 20 141/54 (83) 98 Nasal Cannula 2.0 Allergies Coded Allergies: Carbamazepine (Verified Allergy, Intermediate, RASH, 06/10/17) Erythromycin (Verified Allergy, Intermediate, RASH, 06/10/17) Carvedilol (Verified Adverse Reaction, Intermediate, DIZZINESS, VISUAL DISTURBANCES, 06/10/17) Statins (Verified Adverse Reaction, Intermediate, MUSCLE ACHES, 06/10/17) Home Medications Scheduled Alprazolam (Xanax), 0.5 MG PO HS Amoxicillin & Pot Clavulanate (Augmentin 875-125 mg), 1 TAB PO BID Aspirin (Aspirin Ec), 81 MG PO QAM Cholecalciferol (Vitamin D3), 1 TAB PO QDL Cyclosporine (Ophth) (Restasis), 1 DROP OP BID Ezetimibe (Zetia), 10 MG PO QAM Felodipine (Plendil), 5 MG PO HS Fluorouracil (Topical) (Efudex), 1 APPLN TOP BID Furosemide (Lasix), 20 MG PO DAILY Hydralazine Hcl (Apresoline), 2 TAB PO TID Insulin Aspart (Novolog Flexpen), 0 UNITS SC AC Insulin Glargine (Lantus Solostar), 16 UNITS SC QPM Isosorbide Mononitrate Ext Rel (Imdur Ext Rel), 60 MG PO BID Labetalol Hcl (Labetalol Hcl), 200 MG PO BID [place]-3 Fatty Acids (Fish Oil), 1,000 MG PO DAILY Quetiapine Fumarate (Quetiapine Fumarate), 25 MG PO HS Scheduled PRN Acetaminophen (Tylenol Extra Strength), 500-1,000 MG PO TID PRN for Pain Ipratropium-Albuterol (Duoneb), 3 ML INH Q6R PRN for Shortness of Breath Melatonin (Kp Melatonin), 3 MG PO HS PRN for Sleep Problem List Medical Problems: (1) Abdominal pain (2) Accelerated hypertension (3) Acute renal insufficiency (4) Atrial myxoma (5) Benign hypertension (6) C. difficile colitis (7) CHF exacerbation (8) Cholecystitis (9) Cholecystitis (10) Chronic kidney disease (11) Coronary artery bypass grafting (12) Coronary artery disease (13) Diabetes mellitus (14) Heart disease (15) Hematochezia (16) Hyperlipidemia (17) Hypertensive crisis (18) Hysterectomy (19) Implantation of cardiac pacemaker (20) Neutropenia (21) Pancytopenia (22) Pneumonia (23) Toe surgery (24) Weakness Surgical / Medical History Hx Cardiac Surgery: Yes (CABG) Hx Abdominal Surgery: No Hx Cancer Surgery: Yes (skin excision on forehead) Hx Thoracic Surgery: No Hx Orthopedic: Yes (R foot third toe amputation/ L foot third toe amputation) Hx Urinary Tract Surgery: No HX Other Surgery: Yes (cataract bilateral) Family History No pertinent family history + HTN, CAD Social History Smoking Status: Never Smoker Hx Tobacco Use In Past Year?: No Hx Alcohol Use - Type & Amnt: No Hx Substance Use -Type & Amnt: No Review of Systems Constitutional: + malaise, No chills, No fever Skin: No change in color Eyes: No visual changes ENMT: No sore throat Respiratory: + cough, + CHAIDEZ, + short of breath, No hemoptysis Cardiovascular: + edema, No chest pain, No palpitations, No syncope, No intermittent claudication Gastrointestinal: + nausea, + vomiting, + anorexia, No abdominal pain Genitourinary - Female: No dysuria, No hematuria Neurologic: + weakness, No dizziness, No headache Physical Exam Constitutional: General Apperance: well-nourished, well-developed, obese Level of Distress: NAD, acutely ill, chronically ill Psychiatric: Mental Status: active & alert, normal mood, normal affect Orientation: oriented except where noted, to time, to place, to person Memory: recent memory abnormal (vague), remote memory abnormal (vague) Head: normocephalic, atraumatic Eyes: EOM: EOMI ENMT: normal ENT inspection, hearing grossly normal Neck: supple, trachea midline Lungs: Respiratory effort: no dyspnea Auscultation: no rhonchi, decreased breath sounds, wet rales/crackles Cardiovascular: Apical Impulse: not displaced Heart Auscultation: RRR, no murmurs, no rubs, no gallops Peripheral Pulses: Pulses: full and equal, in all extremities except if noted Bruits: none appreciated Carotid Pulse: normal on the left, normal on the right Brachial Pulses: normal on the left, normal on the right Radial Pulse: normal on the left, normal on the right Posterior Tibialis Pulse: decreased on the left, decreased on the right Dorsalis Pedis Pulse: decreased on the left, decreased on the right Abdomen: Bowel Sounds: normal Inspection & Palpation: soft, no tenderness, guarding & rebound, distended ( mildly) Extremities: Upper Right: no cyanosis, edema Upper Left: no cyanosis, no varicosities, no palpable cord, edema Lower Right: no cyanosis, no varicosities, no palpable cord, edema Lower Left: no cyanosis, no varicosities, edema Neurologic: Cranial Nerves: grossly intact Sensation: grossly intact Assessment and Plan ASSESSMENT and PLAN: ESRD not yet on HD Pt also seen by Dr Montemayor today. Will order vein mapping US and consider for AVF creation in near future.
--- NOTE | 2017-06-12 11:38 | Nephrology Progress Note ---
Nephrology Progress Note Date of Service Jun 12, 2017. Chief Complaint F/U for hypertensive urgency and chronic kidney disease. Tashi Vick was seen and examined in her room this morning. She feels slightly better today, breathing seems to be easier and overall edema slightly better but complaining of some dry cough. Blood pressure stable. Renal function stable creatinine 3.0, electrolyte acceptable. Urine output improved but not to as expected from high dose of Lasix. Review of Systems A complete review of systems was performed. Pertinent positives are noted above. All other systems are negative. Vital Signs Last 8 Hrs Date Time Temp Pulse Resp B/P (MAP) Pulse Ox O2 Delivery O2 Flow Rate FiO2 06/12/17 07:39 36.8 60 16 166/69 (101) 95 Nasal Cannula 2.0 06/12/17 04:00 96 Nasal Cannula 2.0 06/12/17 03:41 36.7 60 22 149/56 (87) 96 Nasal Cannula 2.0 Last Recorded Weight Weight (Kilograms): 72.900 Physical Exam GENERAL: Elderly female , AAA x 3, pleasant,ill-appearing, not in any distress. NECK: Supple, no JVD. RESPIRATORY: Normal breathing efforts, no accessory muscle use, bibasilar rales. CARDIOVASCULAR: S1, S2 normal, rate rhythm regular. EXTREMITY: 1 to 2+ bilateral upper and lower extremity edema NEURO: speech fluent. PSYCHIATRY: Normal mood and judgment Family History No pertinent family history Social History Smoking Status: Never smoker Drug Use: none Marital Status: Housing Status: lives with family Occupation: retired Laboratory Results Past 24 Hours 06/12/17 05:33 Test 06/11/17 11:13 06/11/17 16:27 06/11/17 20:28 06/12/17 05:33 Bedside Glucose 197 mg/dl (70-90) 181 mg/dl (70-90) 141 mg/dl (70-90) Anion Gap 7.0 mmol/L (3-11) Est Creatinine Clear Calc Drug Dose 11.9 ml/min Estimated GFR () 15.7 Estimated GFR (Non- 13.6 BUN/Creatinine Ratio 18.4 (10-20) Calcium Level 8.0 mg/dl (8.5-10.1) Phosphorus Level 4.4 mg/dl (2.5-4.9) Magnesium Level 1.4 mg/dl (1.8-2.4) Iron Level 27 mcg/dl (35-150) Total Iron Binding Capacity 135 mcg/dl (250-450) Transferrin 114 mg/dl (200-360) Transferrin % Saturation 17 % (15-50) Ferritin 342.6 ng/ml (8.0-388.0) Test 06/12/17 07:29 Bedside Glucose 81 mg/dl (70-90) Allergies Coded Allergies: Carbamazepine (Verified Allergy, Intermediate, RASH, 06/10/17) Erythromycin (Verified Allergy, Intermediate, RASH, 06/10/17) Carvedilol (Verified Adverse Reaction, Intermediate, DIZZINESS, VISUAL DISTURBANCES, 06/10/17) Statins (Verified Adverse Reaction, Intermediate, MUSCLE ACHES, 06/10/17) Medications Current Inpatient Medications Medications (Trade) Dose Ordered Sig/Haja Route Start Time Stop Time Status Last Admin Dose Admin Heparin Sodium (Porcine) (Heparin Sq 5000 Unit/0.5ml) 5,000 unit Q8H SQ 06/11/17 06:00 07/11/17 05:59 06/12/17 06:01 5,000 UNIT Acetaminophen (Tylenol Tab) 650 mg Q4H PRN PO 06/11/17 01:00 07/11/17 00:59 Al Hydrox/Mg Hydrox/Simethicone (Maalox Max Susp) 15 ml Q4H PRN PO 06/11/17 01:00 07/11/17 00:59 Magnesium Hydroxide (Milk Of Magnesia Susp) 30 ml Q12H PRN PO 06/11/17 01:00 07/11/17 00:59 Ondansetron HCl (Zofran Inj) 4 mg Q6H PRN IV 06/11/17 01:00 07/11/17 00:59 Nitroglycerin (Nitrostat Tab) 0.4 mg UD PRN SL 06/11/17 01:00 07/11/17 00:59 Nitroglycerin (Nitroglycerin 2% Oint) 1 inch Q6H EXT 06/11/17 03:30 07/11/17 03:29 06/12/17 03:37 1 INCH Morphine Sulfate (MoRPHine SULFATE INJ) 2 mg Q30M PRN IV 06/11/17 01:00 06/25/17 00:59 Polyethylene (Miralax Powder Packet) 17 gm DAILY PRN PO 06/11/17 01:00 07/11/17 00:59 Alprazolam (Xanax Tab) 0.5 mg HS PO 06/11/17 21:00 07/11/17 20:59 06/11/17 21:41 0.5 MG Aspirin (Ecotrin Tab) 81 mg QAM PO 06/11/17 09:00 07/11/17 08:59 06/11/17 08:00 81 MG EZETIMIBE (Zetia Tab) 10 mg QAM PO 06/11/17 09:00 07/11/17 08:59 06/11/17 08:01 10 MG Hydralazine HCl (Apresoline Tab) 100 mg TID PO 06/11/17 09:00 07/11/17 08:59 06/11/17 21:41 100 MG Insulin Glargine (Lantus Solostar Pen) 16 units QPM SC 06/11/17 21:00 07/11/17 20:59 06/11/17 21:45 16 UNITS Albuterol/ Ipratropium (Duoneb) 3 ml Q6R PRN INH 06/11/17 01:15 07/11/17 01:14 Isosorbide Mononitrate (Imdur Ext Rel Tab) 60 mg BID PO 06/11/17 09:00 07/11/17 08:59 06/11/17 21:41 60 MG Labetalol HCl (Normodyne Tab) 200 mg BID PO 06/11/17 09:00 07/11/17 08:59 06/11/17 21:41 200 MG Quetiapine Fumarate (seroQUEL TAB) 25 mg HS PO 06/11/17 21:00 07/11/17 20:59 06/11/17 21:41 25 MG Miscellaneous Information (Order Awaiting Action) 1 ea QS N/A 06/11/17 08:00 07/11/17 07:59 Miscellaneous Information (Order Awaiting Action) 1 ea QS N/A 06/11/17 08:00 07/11/17 07:59 Insulin Aspart (novoLOG ASPART) SLIDING SCALE G... ACHS SC 06/11/17 06:30 07/11/17 06:59 06/11/17 18:07 1 UNITS Glucose (Glucose 40% Gel) 15-30 GRAMS 15 GRAMS... UD PRN PO 06/11/17 03:45 07/11/17 03:44 Glucose (Glucose Chew Tab) 4-8 Tablets 4 Tabl... UD PRN PO 06/11/17 03:45 07/11/17 03:44 Dextrose (Dextrose 50% 50ML Syringe) 25-50ML OF 50% DW IV FOR... UD PRN IV 06/11/17 03:45 07/11/17 03:44 Glucagon (Glucagon Inj) 1 mg UD PRN SQ 06/11/17 03:45 07/11/17 03:44 Furosemide 40 mg/ Syringe 4 ml @ 4 mls/min BID IV 06/11/17 21:00 07/11/17 08:59 06/11/17 21:40 4 MLS/MIN Felodipine (Plendil Tabcr) 10 mg HS PO 06/11/17 21:00 07/11/17 20:59 06/11/17 23:36 10 MG Enteral Nutritional Formula (Boost Glucose Control) 1 can BIDM PO 06/12/17 08:00 07/12/17 07:59 Magnesium Sulfate 1 gm/Prmx 100 ml @ 100 mls/hr Q1H IV 06/12/17 08:30 06/12/17 10:29 Impression Nava is a 82-year-old female with stage 4 chronic kidney disease, hypertension , diabetes, CHF and prior history of coronary artery disease status post CABG admitted to the hospital with CHF exacerbation, pleural effusion and hypertensive urgency. Her renal function seems to be at baseline, creatinine on admission was 2.8 and her baseline creatinine lately has been running around 3. Has stage 4 chronic kidney disease secondary to hypertensive and diabetic nephropathy, creatinine staying around 3.0 in GFR around 15-20 percent. Has 1 grams of proteinuria. Prior renal ultrasound was unremarkable. She was recently referred to vascular surgery however could not make the appointment due to recurrent hospital admission. Currently her renal function seems to be at baseline, electrolyte acceptable. She seems volume overloaded. Blood pressure systolic still staying around 170s to 180s. Recommendations --continue lasix to 40 mg BID --start on Venofer, 1 dose of Epogen 79873 units --no acute indication for dialysis but needs to monitor renal function electrolytes closely while continue on high dose of diuretics --appreciate vascular surgery evaluation for AV fistula placement Will follow
[2017-06-12] MEDS: IRON SUCROSE INJ 200 MG in SODIUM CHLORIDE 0.9% 100ML 100 ML IV SCH (12:04)
[2017-06-12] MEDS: GUAIFENESIN/DEXTROM SYRUP 100MG/10MG 5ML UDC PO PRN ×2 (14:44→21:20)
--- NOTE | 2017-06-12 14:46 | Hospitalist Progress Note ---
Hospitalist Progress Note Date of Service Jun 12, 2017. (Fatoumata Varela PA-C) Subjective Pt evaluation today including: conversation w/ patient, physical exam, chart review, lab review, review of studies Pain: None PO Intake: Good Voiding: no voiding problems The patient was seen and examined this morning. Patient reports feeling about the same as yesterday. She reports her breathing is unchanged, and that she becomes short of breath with long sentences still. She has been ambulating about the room with assistance and still feels short of breath with minimal exertion. Patient feels her swelling in her arms and her legs has gone down some. She has a dry cough, no sputum which has been ongoing. She remains on supplemental O2. Pt is concerned about recent discharge from the hospital along with nausea and vomiting. She reports being on antibiotics in the past- but cannot name any. During her last hospital stay she was discharged on Ceftinir and doxycycline for 10 day course. She notes that her increased nausea and vomiting started abruptly after this discharge. She was then transitioned to Keflex for the rash noted on her arms and legs at [place] and remained nauseous. Specifically she notes n/v occurs after taking multiple medications together around lunch time. Another medication which was started at that time was Seroquel, for insomnia. She reports that she slept better and did not not feel groggy in the morning after, nor did she attributed her nausea or vomiting to this medication. Additional Comments: Constitutional: No fever, sweats or chills Eyes: No diplopia, no worsening or blurred vision ENT: normal hearing, no trouble swallowing Respiratory: See HPI Cardiovascular: No chest pain, tightness or palpitations Abdomen: No pain, nausea, vomiting, diarrhea or constipation Musculoskeletal: No joint pain, calf pain, swelling Neurologic: + weakness, no numbness/tingling, or balance problems Skin: + rash over left forearm, bilateral lower extremities seems less erythematous. No itch. (Fatoumata Varela PA-C) Objective Vital Signs Date Time Temp Pulse Resp B/P (MAP) Pulse Ox O2 Delivery O2 Flow Rate FiO2 06/12/17 12:05 36.3 60 16 161/63 (95) 98 Room Air 06/12/17 12:00 Nasal Cannula 2.0 06/12/17 09:13 62 177/61 (99) 06/12/17 08:00 Nasal Cannula 2.0 06/12/17 07:39 36.8 60 16 166/69 (101) 95 Nasal Cannula 2.0 06/12/17 04:00 96 Nasal Cannula 2.0 06/12/17 03:41 36.7 60 22 149/56 (87) 96 Nasal Cannula 2.0 06/12/17 00:00 96 Nasal Cannula 2.0 06/11/17 23:59 36.5 59 20 141/54 (83) 98 Nasal Cannula 2.0 06/11/17 20:24 98 Nasal Cannula 2.0 06/11/17 19:49 36.9 60 20 194/69 (110) 97 Nasal Cannula 2.0 186/65 (105) 06/11/17 16:01 98 Nasal Cannula 2.0 06/11/17 15:37 36.7 69 18 176/64 (101) 98 Nasal Cannula 2.0 (Fatoumata Varela PA-C) Physical Exam Notes: General Appearance: WD/WN, no apparent distress, + obese Eyes: PERRL, EOMI ENT: hearing grossly normal, pharynx normal, + pertinent finding (MMM) Neck: supple, + pertinent finding (JVD difficult to assess due to body habitus) Respiratory/Chest: no respiratory distress, no accessory muscle use, + pertinent finding (on 2 L, + coarse breath sounds throughout with inspiratory and expiratory wheezing, + diminished breath sounds bibasilarly, no crackles, no rales. ) Cardiovascular: regular rate, rhythm, no murmur Abdomen: normal bowel sounds, non tender, soft Extremities: non-tender, + pedal edema (2+ pitting up to knees bilaterally. + Edema of the hands and arms bilaterally seems improved today) Neurologic/Psychiatric: alert, normal mood/affect, oriented x 3 Skin: warm/dry, + rash (patchy blanchable erythematous region over the left forearm, left and right ant tib region) (Fatoumata Varela, INDU-C) Laboratory Results Last 24 Hours Test 06/11/17 16:27 06/11/17 20:28 06/12/17 05:33 06/12/17 07:29 Bedside Glucose 181 mg/dl 141 mg/dl 81 mg/dl Sodium Level 141 mmol/L Potassium Level 4.1 mmol/L Chloride Level 109 mmol/L Carbon Dioxide Level 25 mmol/L Anion Gap 7.0 mmol/L Blood Urea Nitrogen 56 mg/dl Creatinine 3.04 mg/dl Est Creatinine Clear Calc Drug Dose 11.9 ml/min Estimated GFR () 15.7 Estimated GFR (Non- 13.6 BUN/Creatinine Ratio 18.4 Random Glucose 78 mg/dl Calcium Level 8.0 mg/dl Phosphorus Level 4.4 mg/dl Magnesium Level 1.4 mg/dl Iron Level 27 mcg/dl Total Iron Binding Capacity 135 mcg/dl Transferrin 114 mg/dl Transferrin % Saturation 17 % Ferritin 342.6 ng/ml Parathyroid Hormone (Intact) 126.7 pg/mL Test 06/12/17 11:36 Bedside Glucose 179 mg/dl (Fatoumata Varela, CHRISTINE) Assessment and Plan 82 y/o F Hx CKD IV, CAD, HTN, HPL, anemia, DM II, chronic diastolic CHF, 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 Recent admissions for UTI, ARF, Cdiff. Admitted 05/19 with PNM and medication-induced agranulocytosis/neutropenia 05/19, DCd 05/26 to a rehab facility. [facility] with a persistent productive cough, SOB, nausea, weakness and a poor appetite. She denies CP, vomiting or dysuria. She is afebrile on arrival. Her initial SBP was over 200. She is mildly hypoxic. A CXR is consistent with vascular congestion but could not r/o superimposed PNM. SOB - likely related to CHF exacerbation. - Lasix given for diuresis in the ER. Lasix dose increased to 40mg BID IV per nephrology-appreciate recommendations. - Strict I/Os, daily weights - volume status is difficult to assess clinically due to her habitus and anasarca which may be a result of protein malnutrition. - Cont Labetalol - 5 mg IV administered for BP > 200/60 which has improved to the 160s/170s systolically and diastolically in the 60s.. Possible superimposed HCAP and possibly aspiration ? Bronchitis? - CT chest negative for evidence of pneumonia. Moderate right and small-to- moderate left pleural effusions with extensive passive atelectasis. - Swallow study today - No abx, no leukocytosis and afebrile. She was DCd with a combination of Doxy and Cefdinir on 05/26 and appears to have been switched to Augmentin at the rehab facility - pt reports this was for the rash on her arms/legs. These are held pending further evaluation as it is not clear she has an acute infection and she recently had C diff. Weakness and poor appetite Severe protein malnutrition - Protein supplementation with boost - She does not currently have abdominal pain or tenderness and believes that her chronic nausea is due to medications. Her list is extensive so that this would be difficult to assess. - Pt notes nausea and poor appetite have worsened since her last hospital stay and changes with antihypertensive medications. Upon further review of her discharge summary it appears that her antihypertensive medications were not altered. She was placed on Cefdinir and doxycycline upon discharge, she specifically reports nausea after lunch when she takes multiple medications and nausea/vomiting lasts throughout the day. Antibiotics are the most likely cause of the patient's nausea and vomiting complaints since her last admission. Since stopping antibiotics during this admission stay her nausea/vomiting has resolved. See HPI regarding Seroquel, although at this time I do not feel that medication is the cause of her adverse reaction. - PT/OT consulted. CKD IV - renal function has improved from recent admission - monitor during diuresis - Consult nephrology, Dr. 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 -Iron panel completed, start IV Venofer today CAD - no evidence of ACS - cont ASA, B jose - she is statin-intolerant, felodipine 5 mg PO HS HTN - poorly controlled on admission - received IV Hydralazine in ER - will apply NTG - cont Hydralazine 100 mg TID, Imdur 60 mg BID, Labetalol 200 mg BID - IV lopressor administered on 06/11 - improvement in BP DM - placed on SS + Lantus Erythematous skin patches - cause is not clear - pt follows with dermatology as an outpatient already. 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 She was told that they are due to her edema at [place]. - - Seems to be slightly improving at this time. Insomnia - Continue xanax 0.5 mg HS and seroquel 25 mg HS. DVT ppx: heparin ppx CODE status: Full code Disposition: From [facility] to assist with dc planning. (Fatoumata Varela PA-C) Reviewed: Pt Seen/Exam by Me (Meryl Tiwari, ) History Pt's nausea has resolved and she states she ate more today than the last 4-5 days combined. Still SOB, but better. Feels the seroquel helps with her sleep. Agree with HPI/ROS as noted by PA (Meryl Tiwari, DO) General Appearance: WD/WN, no apparent distress Eye Exam: bilateral eye normal inspection, bilateral eye other (nml sclera) Respiratory: no respiratory distress, crackles Cardiovascular: normal peripheral pulses, regular rate, rhythm Gastrointestinal: non tender, soft Extremities: non-tender, pedal edema (1+ pitting, UE edema is improving and almost resolved) Neurologic/Psychiatric: alert, oriented x 3 Skin Characteristics: normal color, warm/dry (Meryl Tiwari, ) Assessment/Plan Agree with plan as outlined above CHF vs PNA, likely CHF Elevated BP, to examine changes in meds on d/c and discuss Nausea that has now resolved, possibly related to abx use Add probiotic given long standing abx use since February (Meryl Tiwari, )
--- NOTE | 2017-06-12 14:51 | DIAGNOSTIC IMAGING REPORT ---
VENOUS UPR EXT MAPPING BILAT HISTORY: Preoperative evaluation ESRD; for AVF creation COMPARISON STUDY: None. FINDINGS: The internal jugular veins are patent. There is normal flow within the subclavian veins. There is normal flow and compressibility within the bilateral axillary, basilic, brachial, radial, ulnar, and visualized cephalic veins. Complete venous mapping of the upper extremities is performed bilaterally. Diameter and depth of the cephalic and basilic veins was performed and is noted on the worksheet. Note is made of superficial thrombophlebitis within the right cephalic vein within the proximal forearm IMPRESSION: No DVT within the upper extremitys. Venous mapping bilaterally including cephalic and basilic veins as noted on the worksheet.. Focal superficial thrombophlebitis right cephalic vein The above report was generated using voice recognition software. It may contain grammatical, syntax or spelling errors. Electronically signed by: Juan C Ruiz M.D. 06/12/2017 2:50 PM Dictated Date/Time: 06/12/2017 2:48 PM
[2017-06-12] MEDS: FLUCONAZOLE 100 MG TAB PO SCH (16:05)
[2017-06-12] MEDS: INSULIN GLARGINE SOLOSTAR 100 UNITS/ML 3 ML PEN SC SCH (21:01)
[2017-06-12] MEDS: QUETIAPINE FUMARATE 25 MG TAB PO SCH (21:03)
[2017-06-12] MEDS: FELODIPINE 5 MG TABCR PO SCH (21:03)
[2017-06-12] MEDS: ALPRAZOLAM 0.5 MG TAB PO SCH (21:17)
[2017-06-13] VITALS (14 sets, daily range): BP systolic 118–183; BP diastolic 51–66; PULSE 57–67; TEMP 36.4–37.1; O2SAT 96–97
[2017-06-13] MEDS: NITROGLYCERIN 2% OINTMENT 30GM TUBE EXT SCH ×4 (03:26→20:52)
[2017-06-13] MEDS: HEPARIN SOD 5000 UNIT/0.5 ML CARP SQ SCH ×3 (05:58→20:44)
[2017-06-13 06:54] LABS: CALCIUM 8.4 mg/dl (8.5-10.1); CREATININE 3.12 mg/dl (0.60-1.20); POTASSIUM 4.1 mmol/L (3.5-5.1)
[2017-06-13] MEDS: INSULIN ASPART 100 UNITS/ML 3 ML PEN SC SCH ×4 (07:59→20:43)
[2017-06-13] MEDS: BOOST GLUCOSE CONTROL PO SCH ×2 (08:00→17:00)
--- NOTE | 2017-06-13 08:25 | Hospitalist Progress Note ---
Hospitalist Progress Note Date of Service Jun 13, 2017. (Fatoumata Varela PA-C) Subjective Pt evaluation today including: conversation w/ patient, physical exam, chart review, lab review, review of studies Pain: None PO Intake: Good Voiding: no voiding problems The patient was seen and examined this morning. Pt reports doing ok today. She thinks her breathing is similar to yesterday. She denies any chest pain or shortness of breath at rest. She still notes dyspnea with ambulation to bathroom and back. She is coughing but has minimal production. Denies any fever , chills or sweats. Nephrology ordered extra Lasix 40 mg IV at 1000 this morning. Additional Comments: Constitutional: No fever, sweats or chills Eyes: No diplopia, no worsening or blurred vision ENT: normal hearing, no trouble swallowing Respiratory: See HPI Cardiovascular: No chest pain, tightness or palpitations Abdomen: No pain, nausea, vomiting, diarrhea or constipation Musculoskeletal: No joint pain, calf pain, swelling Neurologic: + weakness, no numbness/tingling, or balance problems Skin: + rash over left forearm same, bilateral lower extremities seems less erythematous. No itch. (Fatoumata Varela PA-C) Objective Vital Signs Date Time Temp Pulse Resp B/P (MAP) Pulse Ox O2 Delivery O2 Flow Rate FiO2 06/13/17 08:12 37.1 60 20 150/61 (90) 96 Nasal Cannula 2.0 06/13/17 04:00 96 Nasal Cannula 2.0 06/13/17 03:32 36.8 60 18 118/56 (76) 97 Nasal Cannula 2.0 06/13/17 00:00 96 Nasal Cannula 2.0 06/12/17 23:41 36.5 59 19 149/64 (92) 97 Nasal Cannula 3.0 06/12/17 20:00 96 Nasal Cannula 2.0 06/12/17 19:45 36.5 60 18 182/63 (102) 96 Nasal Cannula 2.0 06/12/17 16:00 Nasal Cannula 2.0 06/12/17 14:45 36.3 64 18 184/69 (107) 96 Room Air 06/12/17 12:05 36.3 60 16 161/63 (95) 98 Room Air 06/12/17 12:00 Nasal Cannula 2.0 06/12/17 09:13 62 177/61 (99) (Fatoumata Varela PA-C) Physical Exam Notes: General Appearance: WD/WN, no apparent distress, + obese Eyes: PERRL, EOMI ENT: hearing grossly normal, pharynx normal, + pertinent finding (MMM) Neck: supple, + pertinent finding (JVD difficult to assess due to body habitus) Respiratory/Chest: no respiratory distress, no accessory muscle use, + pertinent finding (on 2 L, + coarse breath sounds throughout with inspiratory and expiratory wheezing, + diminished breath sounds bibasilarly, + faint crackles in mid lobes, no rales. ) Cardiovascular: regular rate, rhythm, no murmur Abdomen: normal bowel sounds, non tender, soft Extremities: non-tender, + pedal edema (1+ pitting up to knees bilaterally. + Edema of the hands and arms bilaterally seems improved today) Neurologic/Psychiatric: alert, normal mood/affect, oriented x 3 Skin: warm/dry, + rash (patchy blanchable erythematous region over the left forearm, left and right ant tib region) (Fatoumata Varela PA-C) Laboratory Results Last 24 Hours Test 06/12/17 11:36 06/12/17 16:28 06/12/17 20:36 06/13/17 05:27 Bedside Glucose 179 mg/dl 224 mg/dl 253 mg/dl Sodium Level 138 mmol/L Potassium Level 4.1 mmol/L Chloride Level 107 mmol/L Carbon Dioxide Level 21 mmol/L Anion Gap 10.0 mmol/L Blood Urea Nitrogen 59 mg/dl Creatinine 3.12 mg/dl Est Creatinine Clear Calc Drug Dose 11.7 ml/min Estimated GFR () 15.2 Estimated GFR (Non- 13.2 BUN/Creatinine Ratio 18.8 Random Glucose 149 mg/dl Calcium Level 8.4 mg/dl Chemistry Specimen Hemolysis Test 06/13/17 07:34 Bedside Glucose 133 mg/dl (Fatoumata Varela PA-C) Assessment and Plan 82 y/o F Hx CKD IV, CAD, HTN, HPL, anemia, DM II, chronic diastolic CHF, 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 Recent admissions for UTI, ARF, Cdiff. Admitted 05/19 with PNM and medication-induced agranulocytosis/neutropenia 05/19, DCd 05/26 to a rehab facility. She presents from [facility] facility with a persistent productive cough, SOB, nausea, weakness and a poor appetite. She denies CP, vomiting or dysuria. She is afebrile on arrival. Her initial SBP was over 200. She is mildly hypoxic. A CXR is consistent with vascular congestion but could not r/o superimposed PNM. SOB secondary to acute on chronic diastolic CHF exacerbation. - Lasix given for diuresis in the ER. Lasix dose increased to 40mg BID IV per nephrology-appreciate recommendations. - got an extra dose of lasix late morning today. - Strict I/Os, daily weights - volume status is difficult to assess clinically due to her habitus and anasarca which may be a result of protein malnutrition. - Cont Labetalol - 5 mg IV prn, has not required since 06/11 for hypertension - resolved. Bronchitis - Does not appear this is pneumonia or aspiration with speech eval - Swallow study completed and does not appear to be at risk for aspiration. - No abx, no leukocytosis and afebrile. - She was DCd with a combination of Doxy and Cefdinir on 05/26 and appears to have been switched to Augmentin at the rehab facility - pt reports this was for the rash on her arms/legs. These are held pending further evaluation as it is not clear she has an acute infection and she recently had C diff. Weakness and poor appetite Severe protein malnutrition - Protein supplementation with boost - She does not currently have abdominal pain or tenderness and believes that her chronic nausea is due to medications. -- Antibiotics are the most likely cause of the patient's nausea and vomiting complaints since her last admission. Since stopping antibiotics during this admission stay her nausea/vomiting has resolved. - Probiotic added CKD IV - renal function has improved from recent admission - monitor during diuresis - Consult nephrology, Dr. Noyola follows as an outpatient -appreciate recommendations - Cr. 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 -Iron panel completed, start IV Venofer on 06/12 CAD - no evidence of ACS - cont ASA, B jose - she is statin-intolerant, felodipine 5 mg PO HS HTN - poorly controlled on admission - received IV Hydralazine in ER - will apply NTG - cont Hydralazine 100 mg TID, Imdur 60 mg BID, Labetalol 200 mg BID - IV lopressor administered on 06/11 - improvement in BP DM - placed on SS + Lantus Erythematous skin patches - cause is not clear - pt follows with dermatology as an outpatient already. 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 She was told that they are due to her edema at [place]. - - Seems to be slightly improving at this time. Insomnia - Continue xanax 0.5 mg HS and seroquel 25 mg HS. DVT ppx: heparin ppx CODE status: Full code Disposition: [facility], to assist with dc planning. PT/OT on board (Fatoumata Varela, CHRISTINE) Reviewed: Pt Seen/Exam by Me (Meryl Tiwari DO) History Ongoing SOB that is slowly improving. No further nausea. Tolerating PO without issue. Denies chest pain. Agree with HPI/ROS as noted by PA. (Meryl Tiwari DO) Comments General Appearance: WD/WN, no apparent distress Eye Exam: bilateral eye normal inspection, bilateral eye other (nml sclera) Respiratory: no respiratory distress, crackles Cardiovascular: normal peripheral pulses, regular rate, rhythm Gastrointestinal: non tender, soft Extremities: non-tender, pedal edema (1+ pitting, UE edema is improving and almost resolved) Neurologic/Psychiatric: alert, oriented x 3 Skin Characteristics: normal color, warm/dry (Meryl Tiwari DO) Assessment/Plan Agree with plan as outlined above CHF vs PNA, likely CHF Elevated BP, to examine changes in meds on d/c and discuss Nausea that has now resolved, possibly related to abx use Add probiotic given long standing abx use since February Speech c/s recs for AHA with thin liquids (Meryl Tiwari DO)
[2017-06-13] MEDS: EZETIMIBE 10MG TAB PO SCH (08:28)
[2017-06-13] MEDS: ASPIRIN 81 MG ECTAB PO SCH (08:28)
[2017-06-13] MEDS: ISOSORBIDE MONONITRATE 60 MG TABCR PO SCH ×2 (08:29→20:40)
[2017-06-13] MEDS: FUROSEMIDE INJ 40 MG in SYRINGE 0 ML IV SCH (08:30)
[2017-06-13] MEDS: LABETALOL HCL 200 MG TAB PO SCH ×2 (08:30→20:38)
[2017-06-13] MEDS: LACTOBACILLUS ACIDOPHILUS (FLORANEX) TAB PO SCH ×3 (08:30→16:31)
[2017-06-13] MEDS: FLUCONAZOLE 100 MG TAB PO SCH (08:31)
[2017-06-13] MEDS ORDERED: FUROSEMIDE INJ 40 MG in SYRINGE 0 ML IV ONE (10:00)
--- NOTE | 2017-06-13 10:42 | Nephrology Progress Note ---
Nephrology Progress Note Date of Service Jun 13, 2017. Chief Complaint F/U for hypertensive urgency and chronic kidney disease. Tashi Vick was seen and examined this morning. She continues to seem significantly volume overloaded, response to diuretics is not as expected although she remained slightly negative less than 500. Blood pressure better controlled. Creatinine slowly worsening to 3.1 this morning, electrolyte acceptable. Complaining of overall feeling poorly, cough and shortness of breath. Review of Systems A complete review of systems was performed. Pertinent positives are noted above. All other systems are negative. Vital Signs Last 8 Hrs Date Time Temp Pulse Resp B/P (MAP) Pulse Ox O2 Delivery O2 Flow Rate FiO2 06/13/17 08:12 37.1 60 20 150/61 (90) 96 Nasal Cannula 2.0 06/13/17 04:00 96 Nasal Cannula 2.0 06/13/17 03:32 36.8 60 18 118/56 (76) 97 Nasal Cannula 2.0 Last Recorded Weight Weight (Kilograms): 74.500 Physical Exam GENERAL: Elderly female , AAA x 3, pleasant,ill-appearing, in mild distress. NECK: Supple, no JVD. RESPIRATORY: Normal breathing efforts, no accessory muscle use, bibasilar rales. CARDIOVASCULAR: S1, S2 normal, rate rhythm regular. EXTREMITY: 1 to 2+ bilateral upper and lower extremity edema NEURO: speech fluent. PSYCHIATRY: Normal mood and judgment Family History No pertinent family history Social History Smoking Status: Never smoker Drug Use: none Marital Status: Housing Status: lives with family Occupation: retired Laboratory Results Past 24 Hours 06/13/17 05:27 Test 06/12/17 11:36 06/12/17 16:28 06/12/17 20:36 06/13/17 05:27 Bedside Glucose 179 mg/dl (70-90) 224 mg/dl (70-90) 253 mg/dl (70-90) Anion Gap 10.0 mmol/L (3-11) Est Creatinine Clear Calc Drug Dose 11.7 ml/min Estimated GFR () 15.2 Estimated GFR (Non- 13.2 BUN/Creatinine Ratio 18.8 (10-20) Calcium Level 8.4 mg/dl (8.5-10.1) Chemistry Specimen Hemolysis Test 06/13/17 07:34 Bedside Glucose 133 mg/dl (70-90) Allergies Coded Allergies: Carbamazepine (Verified Allergy, Intermediate, RASH, 06/10/17) Erythromycin (Verified Allergy, Intermediate, RASH, 06/10/17) Carvedilol (Verified Adverse Reaction, Intermediate, DIZZINESS, VISUAL DISTURBANCES, 06/10/17) Statins (Verified Adverse Reaction, Intermediate, MUSCLE ACHES, 06/10/17) Medications Current Inpatient Medications Medications (Trade) Dose Ordered Sig/Haja Route Start Time Stop Time Status Last Admin Dose Admin Heparin Sodium (Porcine) (Heparin Sq 5000 Unit/0.5ml) 5,000 unit Q8H SQ 06/11/17 06:00 07/11/17 05:59 06/13/17 05:58 5,000 UNIT Acetaminophen (Tylenol Tab) 650 mg Q4H PRN PO 06/11/17 01:00 07/11/17 00:59 Al Hydrox/Mg Hydrox/Simethicone (Maalox Max Susp) 15 ml Q4H PRN PO 06/11/17 01:00 07/11/17 00:59 Magnesium Hydroxide (Milk Of Magnesia Susp) 30 ml Q12H PRN PO 06/11/17 01:00 07/11/17 00:59 Ondansetron HCl (Zofran Inj) 4 mg Q6H PRN IV 06/11/17 01:00 07/11/17 00:59 Nitroglycerin (Nitrostat Tab) 0.4 mg UD PRN SL 06/11/17 01:00 07/11/17 00:59 Nitroglycerin (Nitroglycerin 2% Oint) 1 inch Q6H EXT 06/11/17 03:30 07/11/17 03:29 06/13/17 03:26 1 INCH Morphine Sulfate (MoRPHine SULFATE INJ) 2 mg Q30M PRN IV 06/11/17 01:00 06/25/17 00:59 Polyethylene (Miralax Powder Packet) 17 gm DAILY PRN PO 06/11/17 01:00 07/11/17 00:59 Alprazolam (Xanax Tab) 0.5 mg HS PO 06/11/17 21:00 07/11/17 20:59 06/12/17 21:17 0.5 MG Aspirin (Ecotrin Tab) 81 mg QAM PO 06/11/17 09:00 07/11/17 08:59 06/12/17 09:14 81 MG EZETIMIBE (Zetia Tab) 10 mg QAM PO 06/11/17 09:00 07/11/17 08:59 06/12/17 09:15 10 MG Hydralazine HCl (Apresoline Tab) 100 mg TID PO 06/11/17 09:00 07/11/17 08:59 06/12/17 20:59 100 MG Insulin Glargine (Lantus Solostar Pen) 16 units QPM SC 06/11/17 21:00 07/11/17 20:59 06/12/17 21:01 16 UNITS Albuterol/ Ipratropium (Duoneb) 3 ml Q6R PRN INH 06/11/17 01:15 07/11/17 01:14 Isosorbide Mononitrate (Imdur Ext Rel Tab) 60 mg BID PO 06/11/17 09:00 07/11/17 08:59 06/12/17 21:00 60 MG Labetalol HCl (Normodyne Tab) 200 mg BID PO 06/11/17 09:00 07/11/17 08:59 06/12/17 21:00 200 MG Quetiapine Fumarate (seroQUEL TAB) 25 mg HS PO 06/11/17 21:00 07/11/17 20:59 06/12/17 21:03 25 MG Miscellaneous Information (Order Awaiting Action) 1 ea QS N/A 06/11/17 08:00 07/11/17 07:59 Miscellaneous Information (Order Awaiting Action) 1 ea QS N/A 06/11/17 08:00 07/11/17 07:59 Insulin Aspart (novoLOG ASPART) SLIDING SCALE G... ACHS SC 06/11/17 06:30 07/11/17 06:59 06/12/17 21:02 3 UNITS Glucose (Glucose 40% Gel) 15-30 GRAMS 15 GRAMS... UD PRN PO 06/11/17 03:45 07/11/17 03:44 Glucose (Glucose Chew Tab) 4-8 Tablets 4 Tabl... UD PRN PO 06/11/17 03:45 07/11/17 03:44 Dextrose (Dextrose 50% 50ML Syringe) 25-50ML OF 50% DW IV FOR... UD PRN IV 06/11/17 03:45 07/11/17 03:44 Glucagon (Glucagon Inj) 1 mg UD PRN SQ 06/11/17 03:45 07/11/17 03:44 Furosemide 40 mg/ Syringe 4 ml @ 4 mls/min BID IV 06/11/17 21:00 07/11/17 08:59 06/12/17 20:55 4 MLS/MIN Felodipine (Plendil Tabcr) 10 mg HS PO 06/11/17 21:00 07/11/17 20:59 06/12/17 21:03 10 MG Enteral Nutritional Formula (Boost Glucose Control) 1 can BIDM PO 06/12/17 08:00 07/12/17 07:59 06/12/17 17:13 1 CAN Iron Sucrose 200 mg/Sodium Chloride 110 ml @ 420 mls/hr Q2D@0900 IV 06/12/17 09:00 06/20/17 09:16 06/12/17 12:04 420 MLS/HR Guaifenesin/ Dextromethorphan (Robitussin-Dm Syrup) 5 ml Q6H PRN PO 06/12/17 10:45 07/12/17 10:44 06/12/17 21:20 5 ML Fluconazole (Diflucan Tab) 100 mg QAM PO 06/12/17 16:00 07/12/17 15:59 06/12/17 16:05 100 MG Lactobacillus Acidophilus (Floranex Tab) 4 tab TIDM PO 06/13/17 08:00 07/13/17 07:59 Impression Nava is a 82-year-old female with stage 4 chronic kidney disease, hypertension , diabetes, CHF and prior history of coronary artery disease status post CABG admitted to the hospital with CHF exacerbation, pleural effusion and hypertensive urgency. Her renal function seems to be at baseline, creatinine on admission was 2.8 and her baseline creatinine lately has been running around 3. Has stage 4 chronic kidney disease secondary to hypertensive and diabetic nephropathy, creatinine staying around 3.0 in GFR around 15-20 percent. Has 1 grams of proteinuria. Prior renal ultrasound was unremarkable. She was recently referred to vascular surgery however could not make the appointment due to recurrent hospital admission. Currently her renal function seems to be at baseline, electrolyte acceptable. She seems volume overloaded. Blood pressure systolic still staying around 170s to 180s. Recommendations --increase Lasix to 80 mg BID, as she is significantly volume overloaded with suboptimal response to diuretic ex current dose the --as creatinine slightly worsening, there is high risk for further worsening of renal function with high dose of diuretics however this is her 4th admission over last for few months for volume overload. Is possible she is getting diuretic resistant and reaching end-stage. Would continue on diuretics and if renal function worsen or electrolyte became significantly abnormal, we may need to start her on dialysis soon. Explained to the patient and she verbalized understanding --continue on Venofer, 1 dose of Epogen 62862 units given on 06/12/2017 --no acute indication for dialysis but needs to monitor renal function electrolytes closely while continue on high dose of diuretics --vein mapping was done for future AV fistula placement Will follow
[2017-06-13] MEDS: ALPRAZOLAM 0.5 MG TAB PO SCH (20:36)
[2017-06-13] MEDS: FUROSEMIDE INJ 80 MG in SYRINGE 0 ML IV SCH (20:37)
[2017-06-13] MEDS: FELODIPINE 5 MG TABCR PO SCH (20:39)
[2017-06-13] MEDS: QUETIAPINE FUMARATE 25 MG TAB PO SCH (20:40)
[2017-06-13] MEDS: INSULIN GLARGINE SOLOSTAR 100 UNITS/ML 3 ML PEN SC SCH (20:44)
[2017-06-13] MEDS: GUAIFENESIN/DEXTROM SYRUP 100MG/10MG 5ML UDC PO PRN (22:15)
[2017-06-14] VITALS (15 sets, daily range): BP systolic 133–186; BP diastolic 57–80; PULSE 59–61; TEMP 36.3–36.9; O2SAT 97–99
[2017-06-14] MEDS: NITROGLYCERIN 2% OINTMENT 30GM TUBE EXT SCH ×4 (05:14→20:55)
[2017-06-14] MEDS: HEPARIN SOD 5000 UNIT/0.5 ML CARP SQ SCH ×3 (05:17→20:44)
[2017-06-14 07:20] LABS: HEMOGLOBIN 7.7 g/dL (12.0-16.0); MEAN CELL VOLUME 86.6 fL (80-100); MEAN CORPUSCULAR HEMOGLOBIN 27.8 pg (25-34); MEAN CORPUSCULAR HGB CONC 32.1 g/dl (32-36); PLATELET COUNT 174 K/uL (130-400); RED CELL DISTRIBUTION WIDTH CV 14.9 % (11.5-14.5); RED CELL DISTRIBUTION WIDTH SD 47.6 fL (36.4-46.3); WHITE BLOOD COUNT 6.73 K/uL (4.8-10.8)
[2017-06-14 07:50] LABS: CALCIUM 8.1 mg/dl (8.5-10.1); CREATININE 3.65 mg/dl (0.60-1.20)
[2017-06-14] MEDS: BOOST GLUCOSE CONTROL PO SCH ×2 (08:00→17:00)
[2017-06-14] MEDS: LACTOBACILLUS ACIDOPHILUS (FLORANEX) TAB PO SCH ×3 (08:00→17:40)
[2017-06-14] MEDS: INSULIN ASPART 100 UNITS/ML 3 ML PEN SC SCH ×4 (08:15→20:43)
--- NOTE | 2017-06-14 08:39 | Hospitalist Progress Note ---
Hospitalist Progress Note Date of Service Jun 14, 2017. Subjective Pt evaluation today including: conversation w/ patient, physical exam, chart review, lab review, review of studies Pain: None PO Intake: Fair Voiding: no voiding problems The patient was seen and examined this morning. Pt reports her breathing is similar to yesterday again. She remains sob with exertion to bathroom. Pt feels slightly fatigued. She does note an improvement in the redness on her left upper arm and overlying her shins. Her swelling is a little better today. Additional Comments: Constitutional: No fever, sweats or chills Eyes: No diplopia, no worsening or blurred vision ENT: normal hearing, no trouble swallowing Respiratory: See HPI Cardiovascular: No chest pain, tightness or palpitations Abdomen: No pain, nausea, vomiting, diarrhea or constipation Musculoskeletal: No joint pain, calf pain, swelling Neurologic: + weakness, no numbness/tingling, or balance problems Skin: + rash over left forearm less erythematous, bilateral lower extremities less erythematous. No itch. Objective Vital Signs Date Time Temp Pulse Resp B/P (MAP) Pulse Ox O2 Delivery O2 Flow Rate FiO2 06/14/17 07:30 36.6 60 18 151/64 (93) 98 Nasal Cannula 2.0 06/14/17 04:40 36.5 60 18 133/57 (82) 97 2.0 06/14/17 04:00 Nasal Cannula 2.0 06/14/17 00:00 Nasal Cannula 2.0 06/13/17 23:00 36.5 60 19 162/59 (93) 96 Room Air 06/13/17 22:31 62 160/63 (95) 06/13/17 20:00 96 Nasal Cannula 2.0 06/13/17 19:26 36.7 60 18 183/51 (95) 96 Nasal Cannula 2.0 06/13/17 16:00 96 Nasal Cannula 2.0 06/13/17 15:31 36.4 57 18 164/61 (95) 97 Room Air 06/13/17 12:00 96 Nasal Cannula 2.0 06/13/17 11:11 36.5 58 20 152/66 (94) 97 06/13/17 10:47 67 96 Physical Exam Notes: General Appearance: WD/WN, no apparent distress, + obese Eyes: PERRL, EOMI ENT: hearing grossly normal, pharynx normal, + pertinent finding (MMM) Neck: supple, + pertinent finding (JVD difficult to assess due to body habitus) Respiratory/Chest: no respiratory distress, no accessory muscle use, + pertinent finding (on 2 L, no wheezing, + diminished breath sounds bibasilarly, + faint crackles RML, no rales. ) Cardiovascular: regular rate, rhythm, no murmur Abdomen: normal bowel sounds, non tender, soft Extremities: non-tender, + pedal edema (1+ pitting up to knees bilaterally. + Edema of the hands and arms bilaterally seems improved today) Neurologic/Psychiatric: alert, normal mood/affect, oriented x 3 Skin: warm/dry, + rash (patchy blanchable erythematous region over the left forearm, left and right ant tib region improving) Laboratory Results Last 24 Hours Test 06/13/17 12:47 06/13/17 16:35 06/13/17 20:08 06/14/17 07:06 Bedside Glucose 212 mg/dl 134 mg/dl 222 mg/dl White Blood Count 6.73 K/uL Red Blood Count 2.77 M/uL Hemoglobin 7.7 g/dL Hematocrit 24.0 % Mean Corpuscular Volume 86.6 fL Mean Corpuscular Hemoglobin 27.8 pg Mean Corpuscular Hemoglobin Concent 32.1 g/dl RDW Standard Deviation 47.6 fL RDW Coefficient of Variation 14.9 % Platelet Count 174 K/uL Mean Platelet Volume 9.0 fL Sodium Level 137 mmol/L Potassium Level 4.0 mmol/L Chloride Level 106 mmol/L Carbon Dioxide Level 25 mmol/L Anion Gap 5.0 mmol/L Blood Urea Nitrogen 62 mg/dl Creatinine 3.65 mg/dl Est Creatinine Clear Calc Drug Dose 10.0 ml/min Estimated GFR () 12.6 Estimated GFR (Non- 10.9 BUN/Creatinine Ratio 17.1 Random Glucose 109 mg/dl Calcium Level 8.1 mg/dl Assessment and Plan 82 y/o F Hx CKD IV, CAD, HTN, HPL, anemia, DM II, chronic diastolic CHF, 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 Recent admissions for UTI, ARF, Cdiff. Admitted 05/19 with PNM and medication-induced agranulocytosis/neutropenia 05/19, DCd 05/26 to a rehab facility. She presents from [facility] re[facility] facility with a persistent productive cough, SOB, nausea, weakness and a poor appetite. She denies CP, vomiting or dysuria. She is afebrile on arrival. Her initial SBP was over 200. She is mildly hypoxic. A CXR is consistent with vascular congestion but could not r/o superimposed PNM. SOB secondary to acute on chronic diastolic CHF exacerbation. - Lasix increased to 80mg BID IV per nephrology-appreciate recs - Strict I/Os, daily weights - pt remains edematous in arms and legs- volume status is difficult to assess clinically due to her habitus and anasarca which may be a result of protein malnutrition. - Cont Labetalol - 5 mg IV prn, has not required since 06/11 for hypertension - resolved. Bronchitis - Does not appear this is pneumonia or aspiration with speech eval - Swallow study completed and does not appear to be at risk for aspiration. - No abx, no leukocytosis and afebrile. - She was DCd with a combination of Doxy and Cefdinir on 05/26 and appears to have been switched to Augmentin at the rehab facility - pt reports this was for the rash on her arms/legs. Holding abx as no clear infectious source and she recently had C diff. - Supportive care with O2, 2L at baseline, incentive spirometry, no steroids at this time as cough improving Weakness and poor appetite Severe protein malnutrition - Protein supplementation with boost - She does not currently have abdominal pain or tenderness and believes that her chronic nausea is due to medications. -- Antibiotics are the most likely cause of the patient's nausea and vomiting complaints since her last admission. Since stopping antibiotics during this admission stay her nausea/vomiting has resolved. - Probiotic added GUSTAVO on CKD IV - Consult nephrology, Dr. Noyola follows as an outpatient -appreciate recs - Cr. bumped to 3.65 with diuresis, continue with extensive edema for now. Nephro states pt may be nearing end stage CKD, therefore we have venous mapping completed for possible near future needs for HD. 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 CAD - no evidence of ACS - cont ASA, B jose - she is statin-intolerant, felodipine 5 mg PO HS HTN - poorly controlled on admission - received IV Hydralazine in ER - will apply NTG - cont Hydralazine 100 mg TID, Imdur 60 mg BID, Labetalol 200 mg BID - IV lopressor administered on 06/11 - improvement in BP DM - placed on SS + Lantus Erythematous skin patches - cause is not clear - pt follows with dermatology as an outpatient already. 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 She was told that they are due to her edema at [place]. - - Seems to be improving at this time. Insomnia - Continue xanax 0.5 mg HS and seroquel 25 mg HS. DVT ppx: heparin ppx CODE status: Full code Disposition: From [facility], bed on hold. CM to assist with dc planning. PT/OT on board - possible dc in 2 days.
[2017-06-14] MEDS: FLUCONAZOLE 100 MG TAB PO SCH (09:00)
[2017-06-14] MEDS: FUROSEMIDE INJ 80 MG in SYRINGE 0 ML IV SCH ×2 (09:00→17:27)
[2017-06-14] MEDS: EZETIMIBE 10MG TAB PO SCH (09:00)
[2017-06-14] MEDS: ASPIRIN 81 MG ECTAB PO SCH (09:00)
[2017-06-14] MEDS: ISOSORBIDE MONONITRATE 60 MG TABCR PO SCH ×2 (09:00→20:30)
[2017-06-14] MEDS: IRON SUCROSE INJ 200 MG in SODIUM CHLORIDE 0.9% 100ML 100 ML IV SCH (09:00)
[2017-06-14] MEDS: LABETALOL HCL 200 MG TAB PO SCH ×2 (09:00→20:31)
--- NOTE | 2017-06-14 09:57 | Nephrology Progress Note ---
Nephrology Progress Note Date of Service Jun 14, 2017. Chief Complaint F/U for hypertensive urgency and chronic kidney disease. Tashi Vick was seen and examined this morning. She continues to be volume overloaded , suboptimal response to diuretics however, renal function continues to worsen. Blood pressure better controlled. Creatinine 3.7 this morning, electrolyte acceptable. Continues to have cough and shortness of breath, no fever, chills. Review of Systems A complete review of systems was performed. Pertinent positives are noted above. All other systems are negative. Vital Signs Last 8 Hrs Date Time Temp Pulse Resp B/P (MAP) Pulse Ox O2 Delivery O2 Flow Rate FiO2 06/14/17 07:30 36.6 60 18 151/64 (93) 98 Nasal Cannula 2.0 06/14/17 04:40 36.5 60 18 133/57 (82) 97 2.0 06/14/17 04:00 Nasal Cannula 2.0 Last Recorded Weight Weight (Kilograms): 74.200 Physical Exam GENERAL: Elderly female , AAA x 3, pleasant,ill-appearing, in mild distress. NECK: Supple, no JVD. RESPIRATORY: Normal breathing efforts, no accessory muscle use, bibasilar rales. CARDIOVASCULAR: S1, S2 normal, rate rhythm regular. EXTREMITY: 1 to 2+ bilateral upper and lower extremity edema NEURO: speech fluent. PSYCHIATRY: Normal mood and judgment Family History No pertinent family history Social History Smoking Status: Never smoker Drug Use: none Marital Status: Housing Status: lives with family Occupation: retired Laboratory Results Past 24 Hours 06/14/17 07:06 06/14/17 07:06 Test 06/13/17 12:47 06/13/17 16:35 06/13/17 20:08 06/14/17 07:06 Bedside Glucose 212 mg/dl (70-90) 134 mg/dl (70-90) 222 mg/dl (70-90) Red Blood Count 2.77 M/uL (4.2-5.4) Mean Corpuscular Volume 86.6 fL (80-100) Mean Corpuscular Hemoglobin 27.8 pg (25-34) Mean Corpuscular Hemoglobin Concent 32.1 g/dl (32-36) RDW Standard Deviation 47.6 fL (36.4-46.3) RDW Coefficient of Variation 14.9 % (11.5-14.5) Mean Platelet Volume 9.0 fL (7.4-10.4) Anion Gap 5.0 mmol/L (3-11) Est Creatinine Clear Calc Drug Dose 10.0 ml/min Estimated GFR () 12.6 Estimated GFR (Non- 10.9 BUN/Creatinine Ratio 17.1 (10-20) Calcium Level 8.1 mg/dl (8.5-10.1) Allergies Coded Allergies: Carbamazepine (Verified Allergy, Intermediate, RASH, 06/10/17) Erythromycin (Verified Allergy, Intermediate, RASH, 06/10/17) Carvedilol (Verified Adverse Reaction, Intermediate, DIZZINESS, VISUAL DISTURBANCES, 06/10/17) Statins (Verified Adverse Reaction, Intermediate, MUSCLE ACHES, 06/10/17) Medications Current Inpatient Medications Medications (Trade) Dose Ordered Sig/Haja Route Start Time Stop Time Status Last Admin Dose Admin Heparin Sodium (Porcine) (Heparin Sq 5000 Unit/0.5ml) 5,000 unit Q8H SQ 06/11/17 06:00 07/11/17 05:59 06/14/17 05:17 5,000 UNIT Acetaminophen (Tylenol Tab) 650 mg Q4H PRN PO 06/11/17 01:00 07/11/17 00:59 Al Hydrox/Mg Hydrox/Simethicone (Maalox Max Susp) 15 ml Q4H PRN PO 06/11/17 01:00 07/11/17 00:59 Magnesium Hydroxide (Milk Of Magnesia Susp) 30 ml Q12H PRN PO 06/11/17 01:00 07/11/17 00:59 Ondansetron HCl (Zofran Inj) 4 mg Q6H PRN IV 06/11/17 01:00 07/11/17 00:59 Nitroglycerin (Nitrostat Tab) 0.4 mg UD PRN SL 06/11/17 01:00 07/11/17 00:59 Nitroglycerin (Nitroglycerin 2% Oint) 1 inch Q6H EXT 06/11/17 03:30 07/11/17 03:29 06/14/17 05:14 1 INCH Morphine Sulfate (MoRPHine SULFATE INJ) 2 mg Q30M PRN IV 06/11/17 01:00 06/25/17 00:59 Polyethylene (Miralax Powder Packet) 17 gm DAILY PRN PO 06/11/17 01:00 07/11/17 00:59 Alprazolam (Xanax Tab) 0.5 mg HS PO 06/11/17 21:00 07/11/17 20:59 06/13/17 20:36 0.5 MG Aspirin (Ecotrin Tab) 81 mg QAM PO 06/11/17 09:00 07/11/17 08:59 06/13/17 08:28 81 MG EZETIMIBE (Zetia Tab) 10 mg QAM PO 06/11/17 09:00 07/11/17 08:59 06/13/17 08:28 10 MG Hydralazine HCl (Apresoline Tab) 100 mg TID PO 06/11/17 09:00 07/11/17 08:59 06/13/17 20:39 100 MG Insulin Glargine (Lantus Solostar Pen) 16 units QPM SC 06/11/17 21:00 07/11/17 20:59 06/13/17 20:44 16 UNITS Albuterol/ Ipratropium (Duoneb) 3 ml Q6R PRN INH 06/11/17 01:15 07/11/17 01:14 Isosorbide Mononitrate (Imdur Ext Rel Tab) 60 mg BID PO 06/11/17 09:00 07/11/17 08:59 06/13/17 20:40 60 MG Labetalol HCl (Normodyne Tab) 200 mg BID PO 06/11/17 09:00 07/11/17 08:59 06/13/17 20:38 200 MG Quetiapine Fumarate (seroQUEL TAB) 25 mg HS PO 06/11/17 21:00 07/11/17 20:59 06/13/17 20:40 25 MG Miscellaneous Information (Order Awaiting Action) 1 ea QS N/A 06/11/17 08:00 07/11/17 07:59 Miscellaneous Information (Order Awaiting Action) 1 ea QS N/A 06/11/17 08:00 07/11/17 07:59 Insulin Aspart (novoLOG ASPART) SLIDING SCALE G... ACHS SC 06/11/17 06:30 07/11/17 06:59 06/13/17 20:43 2 UNITS Glucose (Glucose 40% Gel) 15-30 GRAMS 15 GRAMS... UD PRN PO 06/11/17 03:45 07/11/17 03:44 Glucose (Glucose Chew Tab) 4-8 Tablets 4 Tabl... UD PRN PO 06/11/17 03:45 07/11/17 03:44 Dextrose (Dextrose 50% 50ML Syringe) 25-50ML OF 50% DW IV FOR... UD PRN IV 06/11/17 03:45 07/11/17 03:44 Glucagon (Glucagon Inj) 1 mg UD PRN SQ 06/11/17 03:45 07/11/17 03:44 Felodipine (Plendil Tabcr) 10 mg HS PO 06/11/17 21:00 07/11/17 20:59 06/13/17 20:39 10 MG Enteral Nutritional Formula (Boost Glucose Control) 1 can BIDM PO 06/12/17 08:00 07/12/17 07:59 06/13/17 17:00 1 CAN Iron Sucrose 200 mg/Sodium Chloride 110 ml @ 420 mls/hr Q2D@0900 IV 06/12/17 09:00 06/20/17 09:16 06/12/17 12:04 420 MLS/HR Guaifenesin/ Dextromethorphan (Robitussin-Dm Syrup) 5 ml Q6H PRN PO 06/12/17 10:45 07/12/17 10:44 06/13/17 22:15 5 ML Fluconazole (Diflucan Tab) 100 mg QAM PO 06/12/17 16:00 07/12/17 15:59 06/13/17 08:31 100 MG Lactobacillus Acidophilus (Floranex Tab) 4 tab TIDM PO 06/13/17 08:00 07/13/17 07:59 06/13/17 16:31 4 TAB Furosemide 80 mg/ Syringe 8 ml @ 4 mls/min BID17 IV 06/13/17 21:00 07/13/17 20:59 06/13/17 20:37 4 MLS/MIN Tonny Vick is a 82-year-old female with stage 4 chronic kidney disease, hypertension , diabetes, CHF and prior history of coronary artery disease status post CABG admitted to the hospital with CHF exacerbation, pleural effusion and hypertensive urgency. Her renal function seems to be at baseline, creatinine on admission was 2.8 and her baseline creatinine lately has been running around 3. Has stage 4 chronic kidney disease secondary to hypertensive and diabetic nephropathy, creatinine staying around 3.0 in GFR around 15-20 percent. Has 1 grams of proteinuria. Prior renal ultrasound was unremarkable. She was recently referred to vascular surgery however could not make the appointment due to recurrent hospital admission. Currently her renal function seems to be at baseline, electrolyte acceptable. She seems volume overloaded. Blood pressure systolic still staying around 170s to 180s. Recommendations - continue on Lasix to 80 mg BID, however, UO remain low, volume overloaded and renal function continues to worsen --will get CXR, bladder scan -- it Is possible she is getting diuretic resistant and reaching end-stage. if there is any further worsening and remain oliguric, may need to start on dialysis via [facility] in next 1/2 days. Explained to the patient and she verbalized understanding --continue on Venofer, 1 dose of Epogen [id number] units given on 06/12/2017 --vein mapping was done for future AV fistula placement Will follow
--- NOTE | 2017-06-14 10:40 | DIAGNOSTIC IMAGING REPORT ---
CHEST ONE VIEW PORTABLE CLINICAL HISTORY: SOB, pulmonary congestion, B/L pleural effusion COMPARISON STUDY: 06/10/2017 FINDINGS: The heart remains enlarged. There are postsurgical changes of a midline sternotomy. There is a left subclavian dual-chamber central venous pacemaker present. There are persistent bilateral pleural effusions with bibasal airspace opacities likely atelectatic. There is mild central pulmonary vascular congestion.[ IMPRESSION: 1. Persistent bilateral pleural effusions with bibasal airspace opacities likely atelectatic Electronically signed by: Juan Santamaria M.D. 06/14/2017 10:38 AM Dictated Date/Time: 06/14/2017 10:37 AM
[2017-06-14] MEDS: FELODIPINE 5 MG TABCR PO SCH (20:29)
[2017-06-14] MEDS: ALPRAZOLAM 0.5 MG TAB PO SCH (20:30)
[2017-06-14] MEDS: GUAIFENESIN/DEXTROM SYRUP 100MG/10MG 5ML UDC PO PRN (20:30)
[2017-06-14] MEDS: QUETIAPINE FUMARATE 25 MG TAB PO SCH (20:33)
[2017-06-14] MEDS: INSULIN GLARGINE SOLOSTAR 100 UNITS/ML 3 ML PEN SC SCH (20:44)
[2017-06-15] VITALS (8 sets, daily range): BP systolic 138–179; BP diastolic 55–67; PULSE 59–66; TEMP 36.4–37.2; O2SAT 96–98
[2017-06-15] MEDS: NITROGLYCERIN 2% OINTMENT 30GM TUBE EXT SCH ×4 (03:15→21:07)
[2017-06-15] MEDS: HEPARIN SOD 5000 UNIT/0.5 ML CARP SQ SCH ×3 (05:58→21:10)
[2017-06-15 06:11] LABS: BASO % 0.8 %; BASO ABS # 0.07 K/uL (0-0.2); EOS % 15.4 %; EOS ABS # 1.37 K/uL (0-0.5); HEMATOCRIT 27.9 % (37-47); HEMOGLOBIN 9.5 g/dL (12.0-16.0); IG# 0.08 K/uL (0.00-0.02); LYMPH % 12.4 %; MEAN CELL VOLUME 86.4 fL (80-100); MEAN CORPUSCULAR HEMOGLOBIN 29.4 pg (25-34); MEAN CORPUSCULAR HGB CONC 34.1 g/dl (32-36); MEAN PLATELET VOLUME 8.6 fL (7.4-10.4); MONO % 9.2 %; MONO ABS # 0.82 K/uL (0.11-0.59); NEUT % 61.3 %; NEUT ABS # 5.44 K/uL (1.4-6.5); PLATELET COUNT 184 K/uL (130-400); RED CELL DISTRIBUTION WIDTH CV 14.9 % (11.5-14.5); RED CELL DISTRIBUTION WIDTH SD 46.6 fL (36.4-46.3); WHITE BLOOD COUNT 8.88 K/uL (4.8-10.8)
[2017-06-15] MEDS: INSULIN ASPART 100 UNITS/ML 3 ML PEN SC SCH ×4 (06:30→20:39)
[2017-06-15 06:39] LABS: CALCIUM 8.2 mg/dl (8.5-10.1); CREATININE 3.69 mg/dl (0.60-1.20); PHOSPHORUS 4.4 mg/dl (2.5-4.9); POTASSIUM 4.4 mmol/L (3.5-5.1)
[2017-06-15] MEDS: FUROSEMIDE INJ 80 MG in SYRINGE 0 ML IV SCH ×2 (07:52→17:30)
[2017-06-15] MEDS: BOOST GLUCOSE CONTROL PO SCH ×2 (07:52→17:29)
[2017-06-15] MEDS: ASPIRIN 81 MG ECTAB PO SCH (07:54)
[2017-06-15] MEDS: ISOSORBIDE MONONITRATE 60 MG TABCR PO SCH ×2 (07:54→20:59)
[2017-06-15] MEDS: LABETALOL HCL 200 MG TAB PO SCH ×2 (07:54→20:59)
[2017-06-15] MEDS: EZETIMIBE 10MG TAB PO SCH (07:54)
[2017-06-15] MEDS: LACTOBACILLUS ACIDOPHILUS (FLORANEX) TAB PO SCH ×3 (07:54→17:30)
[2017-06-15] MEDS: FLUCONAZOLE 100 MG TAB PO SCH (07:55)
--- NOTE | 2017-06-15 08:20 | Hospitalist Progress Note ---
Hospitalist Progress Note Date of Service Jun 15, 2017. Subjective Pt evaluation today including: conversation w/ patient, physical exam, chart review, lab review, review of studies, conversation w/ service delivery management consultant Pain: None PO Intake: Poor Voiding: no voiding problems (voiding minimally per chart) The patient was seen and examined this morning. Pt reports feeling poorly this morning. She feels very tired and continues to be short of breath with minimal exertion. The patient feels extremely nauseous and is requesting something to help relieve this this morning. Discussion was held with the patient alongside of Dr. Jin (nephrology) this morning regarding trial of metalazone for further diuresis vs initiating dialysis with a temporary line or tunneled catheter this morning. The patient feels nervous about the line, and would like to give the medication a try today. Risks and benefits of initiating dialysis today were explained to the patient by Dr. Lang. The patient will eventually need dialysis in the future however nephrology does not see any need for emergent dialysis at this time. Additional Comments: Constitutional: No fever, sweats or chills Eyes: No diplopia, no worsening or blurred vision ENT: normal hearing, no trouble swallowing Respiratory: See HPI Cardiovascular: No chest pain, tightness or palpitations Abdomen: No pain, nausea, vomiting, diarrhea or constipation Musculoskeletal: No joint pain, calf pain, swelling Neurologic: + weakness, no numbness/tingling, or balance problems Skin: + rash over left forearm minimally erythematous, bilateral lower extremities minimally erythematous. No itch. Objective Vital Signs Date Time Temp Pulse Resp B/P (MAP) Pulse Ox O2 Delivery O2 Flow Rate FiO2 06/15/17 07:09 36.4 60 18 138/64 (88) 98 2.0 06/15/17 04:17 37.2 59 18 144/55 (84) 97 Nasal Cannula 2.0 06/15/17 04:00 Nasal Cannula 2.0 06/15/17 00:00 Nasal Cannula 2.0 06/14/17 23:13 36.7 59 16 146/64 (91) 97 Nasal Cannula 2.0 06/14/17 20:00 98 Nasal Cannula 2.0 06/14/17 20:00 36.4 60 18 179/68 97 06/14/17 19:02 36.6 60 18 186/72 99 2.0 06/14/17 19:00 36.6 60 18 186/72 99 06/14/17 18:30 36.4 60 18 173/80 98 06/14/17 18:03 36.9 60 18 186/69 97 06/14/17 17:49 36.4 60 16 180/69 98 06/14/17 17:29 36.4 60 18 175/69 97 06/14/17 16:00 98 Nasal Cannula 2.0 06/14/17 14:44 36.3 61 18 150/65 (93) 97 Nasal Cannula 2.0 06/14/17 12:00 97 Nasal Cannula 2.0 06/14/17 11:25 36.3 60 16 162/58 (92) 97 Nasal Cannula 2.0 Physical Exam Notes: General Appearance: WD/WN, no apparent distress, + obese Eyes: PERRL, EOMI ENT: hearing grossly normal, pharynx normal, + pertinent finding (MMM) Neck: supple, + pertinent finding (JVD difficult to assess due to body habitus) Respiratory/Chest: no respiratory distress, no accessory muscle use, + pertinent finding (on 2 L, no wheezing, + diminished breath sounds bibasilarly, + crackles RML, no rales. ) Cardiovascular: regular rate, rhythm, no murmur Abdomen: normal bowel sounds, non tender, soft Extremities: non-tender, + pedal edema (generalized edema with 1+ pitting up to knees bilaterally. + Edema of the hands and arms bilaterally remains stable) Neurologic/Psychiatric: alert, normal mood/affect, oriented x 3 Skin: warm/dry, + rash (patchy blanchable erythematous region over the left forearm, left and right ant tib region improving) Laboratory Results Last 24 Hours Test 06/14/17 11:31 06/14/17 16:32 06/14/17 20:40 06/15/17 05:44 Bedside Glucose 194 mg/dl 170 mg/dl 176 mg/dl White Blood Count 8.88 K/uL Red Blood Count 3.23 M/uL Hemoglobin 9.5 g/dL Hematocrit 27.9 % Mean Corpuscular Volume 86.4 fL Mean Corpuscular Hemoglobin 29.4 pg Mean Corpuscular Hemoglobin Concent 34.1 g/dl Platelet Count 184 K/uL Mean Platelet Volume 8.6 fL Neutrophils (%) (Auto) 61.3 % Lymphocytes (%) (Auto) 12.4 % Monocytes (%) (Auto) 9.2 % Eosinophils (%) (Auto) 15.4 % Basophils (%) (Auto) 0.8 % Neutrophils # (Auto) 5.44 K/uL Lymphocytes # (Auto) 1.10 K/uL Monocytes # (Auto) 0.82 K/uL Eosinophils # (Auto) 1.37 K/uL Basophils # (Auto) 0.07 K/uL RDW Standard Deviation 46.6 fL RDW Coefficient of Variation 14.9 % Immature Granulocyte % (Auto) 0.9 % Immature Granulocyte # (Auto) 0.08 K/uL Sodium Level 134 mmol/L Potassium Level 4.4 mmol/L Chloride Level 104 mmol/L Carbon Dioxide Level 23 mmol/L Anion Gap 7.0 mmol/L Blood Urea Nitrogen 66 mg/dl Creatinine 3.69 mg/dl Est Creatinine Clear Calc Drug Dose 9.9 ml/min Estimated GFR () 12.4 Estimated GFR (Non- 10.7 BUN/Creatinine Ratio 18.0 Random Glucose 114 mg/dl Calcium Level 8.2 mg/dl Phosphorus Level 4.4 mg/dl Magnesium Level 2.0 mg/dl Test 06/15/17 07:32 Bedside Glucose 118 mg/dl Assessment and Plan 82 y/o F Hx CKD IV, CAD, HTN, HPL, anemia, DM II, chronic diastolic CHF, 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 Recent admissions for UTI, ARF, Cdiff. Admitted 05/19 with PNM and medication-induced agranulocytosis/neutropenia 05/19, DCd 05/26 to a rehab facility. She presents from [facility] facility with a persistent productive cough, SOB, nausea, weakness and a poor appetite. She denies CP, vomiting or dysuria. She is afebrile on arrival. Her initial SBP was over 200. She is mildly hypoxic. A CXR is consistent with vascular congestion but could not r/o superimposed PNM. SOB secondary to acute on chronic diastolic CHF exacerbation. - Lasix increased to 80mg BID IV 2 days, will add metolazone 5 mg daily starting today. Appreciate nephrology recs - Strict I/Os-patient has minimal urine output despite aggressive diuresis - daily weights - pt remains edematous in arms and legs- anasarca may be a result of protein malnutrition. - Cont Labetalol - 5 mg IV prn, has not required since 06/11 for hypertension - resolved. - CXR on 06/14: Persistent bilateral pleural effusions with bibasal airspace opacities likely atelectatic - encourage incentive spirometry Bronchitis - Does not appear this is pneumonia or aspiration with speech eval - Swallow study completed and does not appear to be at risk for aspiration. - No abx, no leukocytosis and afebrile. - She was DCd with a combination of Doxy and Cefdinir on 05/26 and appears to have been switched to Augmentin at the rehab facility - pt reports this was for the rash on her arms/legs. Holding abx as no clear infectious source and she recently had C diff. - Supportive care with O2, 2L at baseline, incentive spirometry, no steroids at this time as cough improving Weakness and poor appetite - improving Severe protein malnutrition - Protein supplementation with boost - She does not currently have abdominal pain or tenderness and believes that her chronic nausea is due to medications. -- Antibiotics are the most likely cause of the patient's nausea and vomiting complaints since her last admission. Since stopping antibiotics during this admission stay her nausea/vomiting has resolved. - Probiotic added GUSTAVO on CKD IV - Consult nephrology, Dr. Noyola follows as an outpatient -appreciate recs - Cr. bumped to 3.69 with diuresis, added metalazone today. -Continue with extensive edema for now. Nephro states pt may be nearing end stage CKD, therefore we have venous mapping completed for possible near future needs for HD. Temporary dialysis may be required during this admission. Risk and benefits were discussed with the patient at bedside along with nephrology. At this time we will continue conservative management with Lasix and metolazone. At this time no emergent need is seen for acute dialysis. If the patient does require this over the weekend we will need host/hostess to place a line and acute hemodialysis can be performed. 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 transfusion for a value < 8 as she has a history of CAD. CAD - no evidence of ACS - cont ASA, B jose - she is statin-intolerant, felodipine 5 mg PO HS HTN - poorly controlled on admission - received IV Hydralazine in ER - will apply NTG - cont Hydralazine 100 mg TID, Imdur 60 mg BID, Labetalol 200 mg BID - IV lopressor administered on 06/11 - improvement in BP DM - placed on SS + Lantus Erythematous skin patches - cause is not clear - pt follows with dermatology as an outpatient already. Rash has occurred since her last admission and has never been present before for a signal maintenance technician to asses. She was told that they are due to her edema at [facility]. - - Seems to be improving at this time. Insomnia - Continue xanax 0.5 mg HS and seroquel 25 mg HS. DVT ppx: heparin ppx CODE status: Full code Disposition: From [place], bed on hold. CM to assist with dc planning. PT/OT on board -likely to remain here over the weekend. [facility] to med surg
[2017-06-15] MEDS: ONDANSETRON INJ 2 MG/ML 2 ML VIAL IV PRN (09:30)
[2017-06-15] MEDS: METOLAZONE 5 MG TAB PO SCH (10:05)
--- NOTE | 2017-06-15 10:52 | Nephrology Progress Note ---
Nephrology Progress Note Date of Service Jun 15, 2017. Chief Complaint F/U for GUSTAVO, volume overload , hypertensive urgency and chronic kidney disease. Tashi Vick was seen and examined this morning. She continues to be volume overloaded , suboptimal response to diuretics, overall feeling poorly, ahs been having some nausea but renal function relatively stable. Blood pressure better controlled. Creatinine 3.7 this morning, electrolyte remain acceptable. Continues to have occasional cough but denies significant SOB. Review of Systems A complete review of systems was performed. Pertinent positives are noted above. All other systems are negative. Vital Signs Last 8 Hrs Date Time Temp Pulse Resp B/P (MAP) Pulse Ox O2 Delivery O2 Flow Rate FiO2 06/15/17 08:00 Nasal Cannula 2.0 06/15/17 07:09 36.4 60 18 138/64 (88) 98 2.0 06/15/17 04:17 37.2 59 18 144/55 (84) 97 Nasal Cannula 2.0 06/15/17 04:00 Nasal Cannula 2.0 Last Recorded Weight Weight (Kilograms): 76.200 Physical Exam GENERAL: Elderly female , AAA x 3, pleasant,ill-appearing, in mild distress. NECK: Supple, no JVD. RESPIRATORY: Normal breathing efforts, no accessory muscle use, decreased BS at bases CARDIOVASCULAR: S1, S2 normal, rate rhythm regular. EXTREMITY: 1 + bilateral upper and lower extremity edema NEURO: speech fluent. PSYCHIATRY: Normal mood and judgment Family History No pertinent family history Social History Smoking Status: Never smoker Drug Use: none Marital Status: Housing Status: lives with family Occupation: retired Laboratory Results Past 24 Hours 06/15/17 05:44 Red Blood Count 3.23, Mean Corpuscular Volume 86.4, Mean Corpuscular Hemoglobin 29.4, Mean Corpuscular Hemoglobin Concent 34.1, Mean Platelet Volume 8.6, Neutrophils (%) (Auto) 61.3, Lymphocytes (%) (Auto) 12.4, Monocytes (%) (Auto) 9.2, Eosinophils (%) (Auto) 15.4, Basophils (%) (Auto) 0.8, Neutrophils # (Auto ) 5.44, Lymphocytes # (Auto) 1.10, Monocytes # (Auto) 0.82, Eosinophils # (Auto ) 1.37, Basophils # (Auto) 0.07 3/9/18 05:44 Test 06/14/17 11:31 06/14/17 16:32 06/14/17 20:40 06/15/17 05:44 Bedside Glucose 194 mg/dl (70-90) 170 mg/dl (70-90) 176 mg/dl (70-90) White Blood Count 8.88 K/uL (4.8-10.8) Red Blood Count 3.23 M/uL (4.2-5.4) Hemoglobin 9.5 g/dL (12.0-16.0) Hematocrit 27.9 % (37-47) Mean Corpuscular Volume 86.4 fL (80-100) Mean Corpuscular Hemoglobin 29.4 pg (25-34) Mean Corpuscular Hemoglobin Concent 34.1 g/dl (32-36) Platelet Count 184 K/uL (130-400) Mean Platelet Volume 8.6 fL (7.4-10.4) Neutrophils (%) (Auto) 61.3 % Lymphocytes (%) (Auto) 12.4 % Monocytes (%) (Auto) 9.2 % Eosinophils (%) (Auto) 15.4 % Basophils (%) (Auto) 0.8 % Neutrophils # (Auto) 5.44 K/uL (1.4-6.5) Lymphocytes # (Auto) 1.10 K/uL (1.2-3.4) Monocytes # (Auto) 0.82 K/uL (0.11-0.59) Eosinophils # (Auto) 1.37 K/uL (0-0.5) Basophils # (Auto) 0.07 K/uL (0-0.2) RDW Standard Deviation 46.6 fL (36.4-46.3) RDW Coefficient of Variation 14.9 % (11.5-14.5) Immature Granulocyte % (Auto) 0.9 % Immature Granulocyte # (Auto) 0.08 K/uL (0.00-0.02) Anion Gap 7.0 mmol/L (3-11) Est Creatinine Clear Calc Drug Dose 9.9 ml/min Estimated GFR () 12.4 Estimated GFR (Non- 10.7 BUN/Creatinine Ratio 18.0 (10-20) Calcium Level 8.2 mg/dl (8.5-10.1) Phosphorus Level 4.4 mg/dl (2.5-4.9) Magnesium Level 2.0 mg/dl (1.8-2.4) Test 06/15/17 07:32 Bedside Glucose 118 mg/dl (70-90) Allergies Coded Allergies: Carbamazepine (Verified Allergy, Intermediate, RASH, 06/10/17) Erythromycin (Verified Allergy, Intermediate, RASH, 06/10/17) Carvedilol (Verified Adverse Reaction, Intermediate, DIZZINESS, VISUAL DISTURBANCES, 06/10/17) Statins (Verified Adverse Reaction, Intermediate, MUSCLE ACHES, 06/10/17) Medications Current Inpatient Medications Medications (Trade) Dose Ordered Sig/Haja Route Start Time Stop Time Status Last Admin Dose Admin Heparin Sodium (Porcine) (Heparin Sq 5000 Unit/0.5ml) 5,000 unit Q8H SQ 06/11/17 06:00 07/11/17 05:59 06/15/17 05:58 5,000 UNIT Acetaminophen (Tylenol Tab) 650 mg Q4H PRN PO 06/11/17 01:00 07/11/17 00:59 Al Hydrox/Mg Hydrox/Simethicone (Maalox Max Susp) 15 ml Q4H PRN PO 06/11/17 01:00 07/11/17 00:59 Magnesium Hydroxide (Milk Of Magnesia Susp) 30 ml Q12H PRN PO 06/11/17 01:00 07/11/17 00:59 Ondansetron HCl (Zofran Inj) 4 mg Q6H PRN IV 06/11/17 01:00 07/11/17 00:59 Nitroglycerin (Nitrostat Tab) 0.4 mg UD PRN SL 06/11/17 01:00 07/11/17 00:59 Nitroglycerin (Nitroglycerin 2% Oint) 1 inch Q6H EXT 06/11/17 03:30 07/11/17 03:29 06/15/17 03:15 1 INCH Morphine Sulfate (MoRPHine SULFATE INJ) 2 mg Q30M PRN IV 06/11/17 01:00 06/25/17 00:59 Polyethylene (Miralax Powder Packet) 17 gm DAILY PRN PO 06/11/17 01:00 07/11/17 00:59 Alprazolam (Xanax Tab) 0.5 mg HS PO 06/11/17 21:00 07/11/17 20:59 06/14/17 20:30 0.5 MG Aspirin (Ecotrin Tab) 81 mg QAM PO 06/11/17 09:00 07/11/17 08:59 06/15/17 07:54 81 MG EZETIMIBE (Zetia Tab) 10 mg QAM PO 06/11/17 09:00 07/11/17 08:59 06/15/17 07:54 10 MG Hydralazine HCl (Apresoline Tab) 100 mg TID PO 06/11/17 09:00 07/11/17 08:59 06/15/17 07:55 100 MG Insulin Glargine (Lantus Solostar Pen) 16 units QPM SC 06/11/17 21:00 07/11/17 20:59 06/14/17 20:44 16 UNITS Albuterol/ Ipratropium (Duoneb) 3 ml Q6R PRN INH 06/11/17 01:15 07/11/17 01:14 Isosorbide Mononitrate (Imdur Ext Rel Tab) 60 mg BID PO 06/11/17 09:00 07/11/17 08:59 06/15/17 07:54 60 MG Labetalol HCl (Normodyne Tab) 200 mg BID PO 06/11/17 09:00 07/11/17 08:59 06/15/17 07:54 200 MG Quetiapine Fumarate (seroQUEL TAB) 25 mg HS PO 06/11/17 21:00 07/11/17 20:59 06/14/17 20:33 25 MG Miscellaneous Information (Order Awaiting Action) 1 ea QS N/A 06/11/17 08:00 07/11/17 07:59 Miscellaneous Information (Order Awaiting Action) 1 ea QS N/A 06/11/17 08:00 07/11/17 07:59 Insulin Aspart (novoLOG ASPART) SLIDING SCALE G... ACHS SC 06/11/17 06:30 07/11/17 06:59 06/14/17 20:43 1 UNITS Glucose (Glucose 40% Gel) 15-30 GRAMS 15 GRAMS... UD PRN PO 06/11/17 03:45 07/11/17 03:44 Glucose (Glucose Chew Tab) 4-8 Tablets 4 Tabl... UD PRN PO 06/11/17 03:45 07/11/17 03:44 Dextrose (Dextrose 50% 50ML Syringe) 25-50ML OF 50% DW IV FOR... UD PRN IV 06/11/17 03:45 07/11/17 03:44 Glucagon (Glucagon Inj) 1 mg UD PRN SQ 06/11/17 03:45 07/11/17 03:44 Felodipine (Plendil Tabcr) 10 mg HS PO 06/11/17 21:00 07/11/17 20:59 06/14/17 20:29 10 MG Enteral Nutritional Formula (Boost Glucose Control) 1 can BIDM PO 06/12/17 08:00 07/12/17 07:59 06/15/17 07:52 1 CAN Iron Sucrose 200 mg/Sodium Chloride 110 ml @ 420 mls/hr Q2D@0900 IV 06/12/17 09:00 06/20/17 09:16 06/14/17 09:00 420 MLS/HR Guaifenesin/ Dextromethorphan (Robitussin-Dm Syrup) 5 ml Q6H PRN PO 06/12/17 10:45 07/12/17 10:44 06/14/17 20:30 5 ML Fluconazole (Diflucan Tab) 100 mg QAM PO 06/12/17 16:00 07/12/17 15:59 06/15/17 07:55 100 MG Lactobacillus Acidophilus (Floranex Tab) 4 tab TIDM PO 06/13/17 08:00 07/13/17 07:59 06/15/17 07:54 4 TAB Furosemide 80 mg/ Syringe 8 ml @ 4 mls/min BID17 IV 06/13/17 21:00 07/13/17 20:59 06/15/17 07:52 4 MLS/MIN Metolazone (Zaroxolyn Tab) 5 mg DAILY ONCE PO 06/15/17 09:00 06/15/17 09:01 PASHA Lancaster Nava is a 82-year-old female with stage 4 chronic kidney disease, hypertension , diabetes, CHF and prior history of coronary artery disease status post CABG admitted to the hospital with CHF exacerbation, pleural effusion and hypertensive urgency. Her renal function seems to be at baseline, creatinine on admission was 2.8 and her baseline creatinine lately has been running around 3. Has stage 4 chronic kidney disease secondary to hypertensive and diabetic nephropathy, creatinine staying around 3.0 in GFR around 15-20 percent. Has 1 grams of proteinuria. Prior renal ultrasound was unremarkable. She was recently referred to vascular surgery however could not make the appointment due to recurrent hospital admission. Currently her renal function seems to be at baseline, electrolyte acceptable. She seems volume overloaded. Blood pressure systolic still staying around 170s to 180s. Recommendations - discussed options including starting on HD now via TDC vs monitoring with higher dose of diuretics as electrolytes, BP and O2 sat normal. Pt would like to wait and try higher dose of diuretics. --will start metolazone 5 mg daily and continue on Lasix to 80 mg BID as response to diuretics remained suboptimal. -- may need to start on dialysis via TDC in next 2/3 days if renal function continues to worsen or developed significant electrolyte abnormality. Currently there si no emergency need for dialysis. Hopefully there will be no emergencies over the weekend. If no clinical improvement, will keep NPO and plan for TDC on Sunday. Will discuss with Crystal to see whether AVF can be placed while pt inpatient. --continue on Venofer, 1 dose of Epogen 58806 units given on 06/12/2017 --vein mapping was done for future AV fistula placement Will follow
--- NOTE | 2017-06-15 12:07 | Progress Note ---
Progress Note Date of Service Jun 15, 2017. Progress Note Will try to schedule fistula creation for Sunday.
[2017-06-15] MEDS: ALBUT/IPRATROP 3MG/0.5MG NEB 3 ML VIAL INH SCH ×3 (12:32→19:07)
[2017-06-15] MEDS: FELODIPINE 5 MG TABCR PO SCH (21:00)
[2017-06-15] MEDS: QUETIAPINE FUMARATE 25 MG TAB PO SCH (21:00)
[2017-06-15] MEDS: ALPRAZOLAM 0.5 MG TAB PO SCH (21:07)
[2017-06-15] MEDS: INSULIN GLARGINE SOLOSTAR 100 UNITS/ML 3 ML PEN SC SCH (21:10)
[2017-06-16] VITALS (8 sets, daily range): BP systolic 136–175; BP diastolic 57–69; PULSE 59–66; TEMP 36.2–36.6; O2SAT 97–98
[2017-06-16] MEDS: NITROGLYCERIN 2% OINTMENT 30GM TUBE EXT SCH ×4 (04:02→20:53)
[2017-06-16] MEDS: HEPARIN SOD 5000 UNIT/0.5 ML CARP SQ SCH ×3 (06:29→21:05)
[2017-06-16] MEDS: ALBUT/IPRATROP 3MG/0.5MG NEB 3 ML VIAL INH SCH ×4 (07:31→19:41)
[2017-06-16 08:02] LABS: CALCIUM 8.3 mg/dl (8.5-10.1); CREATININE 4.07 mg/dl (0.60-1.20); PHOSPHORUS 4.6 mg/dl (2.5-4.9); POTASSIUM 4.5 mmol/L (3.5-5.1)
[2017-06-16] MEDS: INSULIN ASPART 100 UNITS/ML 3 ML PEN SC SCH ×4 (08:12→21:05)
[2017-06-16] MEDS: LACTOBACILLUS ACIDOPHILUS (FLORANEX) TAB PO SCH ×3 (08:13→16:24)
[2017-06-16] MEDS: ASPIRIN 81 MG ECTAB PO SCH (08:13)
[2017-06-16] MEDS: ISOSORBIDE MONONITRATE 60 MG TABCR PO SCH ×2 (08:13→19:45)
[2017-06-16] MEDS: FLUCONAZOLE 100 MG TAB PO SCH (08:13)
[2017-06-16] MEDS: GUAIFENESIN/DEXTROM SYRUP 100MG/10MG 5ML UDC PO PRN ×2 (08:14→21:02)
[2017-06-16] MEDS: METOLAZONE 5 MG TAB PO SCH (08:14)
[2017-06-16] MEDS: LABETALOL HCL 200 MG TAB PO SCH ×2 (08:14→19:45)
[2017-06-16] MEDS: BOOST GLUCOSE CONTROL PO SCH ×2 (08:15→17:00)
[2017-06-16] MEDS: EZETIMIBE 10MG TAB PO SCH (08:15)
[2017-06-16] MEDS: IRON SUCROSE INJ 200 MG in SODIUM CHLORIDE 0.9% 100ML 100 ML IV SCH (08:51)
[2017-06-16] MEDS: FUROSEMIDE INJ 80 MG in SYRINGE 0 ML IV SCH ×2 (08:51→16:23)
--- NOTE | 2017-06-16 11:45 | Progress Note ---
Subjective Date of Service: Jun 16, 2017. Subjective Pt evaluation today including: conversation w/ patient Pt states she feels much improved over earlier in the week. States she was "a little bit SOB" with ambulation earlier, but nothing like prior. Her UE swelling is mostly resolved, still with LE swelling that is better. No further n/v. She has been eating most of her tray. Problem List Medical Problems: (1) Acute kidney failure Status: Acute (2) Cholelithiasis Status: Acute (3) Dehydration Status: Acute (4) HTN (hypertension) Status: Acute (5) Hypertensive emergency Status: Acute (6) Influenza Status: Acute (7) Nausea and vomiting Status: Acute (8) Proteinuria Status: Acute Review of Systems All Other Systems: Reviewed and Negative Objective Vital Signs Date Time Temp Pulse Resp B/P (MAP) Pulse Ox O2 Delivery O2 Flow Rate FiO2 06/16/17 11:18 64 16 98 Nasal Cannula 2.0 06/16/17 08:45 Nasal Cannula 2.0 06/16/17 07:36 36.6 61 16 148/62 (90) 97 Nasal Cannula 2.0 06/16/17 07:31 65 16 97 Nasal Cannula 2.0 06/16/17 00:40 Nasal Cannula 2.0 06/15/17 21:22 36.5 60 16 171/65 (100) 97 Nasal Cannula 2.0 06/15/17 20:10 Nasal Cannula 2.0 06/15/17 19:08 61 16 96 Nasal Cannula 2.0 06/15/17 16:00 Nasal Cannula 06/15/17 14:42 61 18 97 Nasal Cannula 2.0 06/15/17 13:50 36.9 61 20 179/62 (101) 96 Nasal Cannula 2.0 06/15/17 12:32 66 18 97 Nasal Cannula 2.0 06/15/17 12:00 Nasal Cannula 2.0 Physical Exam General Appearance: WD/WN, no apparent distress Eyes: normal inspection, sclerae normal Respiratory/Chest: normal breath sounds, no respiratory distress Cardiovascular: regular rate, rhythm, + normal peripheral pulses Abdomen: non tender, soft Extremities: non-tender, + pedal edema (1+) Neurologic/Psychiatric: alert, normal mood/affect, oriented x 3 Skin: normal color, warm/dry Laboratory Results Last 24 Hours Test 06/15/17 16:32 06/15/17 20:27 06/16/17 06:31 06/16/17 08:11 Bedside Glucose 125 mg/dl 147 mg/dl 121 mg/dl Sodium Level 135 mmol/L Potassium Level 4.5 mmol/L Chloride Level 104 mmol/L Carbon Dioxide Level 24 mmol/L Anion Gap 8.0 mmol/L Blood Urea Nitrogen 75 mg/dl Creatinine 4.07 mg/dl Est Creatinine Clear Calc Drug Dose 9.1 ml/min Estimated GFR () 11.1 Estimated GFR (Non- 9.5 BUN/Creatinine Ratio 18.3 Random Glucose 111 mg/dl Calcium Level 8.3 mg/dl Phosphorus Level 4.6 mg/dl Magnesium Level 2.1 mg/dl Assessment and Plan 82 y/o F Hx CKD IV, CAD, HTN, HPL, anemia, DM II, chronic diastolic CHF, 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 Recent admissions for UTI, ARF, Cdiff. Admitted 05/19 with PNM and medication-induced agranulocytosis/neutropenia 05/19, DCd 05/26 to a rehab facility. [facility] with a persistent productive cough, SOB, nausea, weakness and a poor appetite. She denies CP, vomiting or dysuria. She is afebrile on arrival. Her initial SBP was over 200. She is mildly hypoxic. A CXR is consistent with vascular congestion but could not r/o superimposed PNM. SOB secondary to acute on chronic diastolic CHF exacerbation. - diuresis as per nephrology recs - Cont Labetalol - 5 mg IV prn, has not required since 06/11 for hypertension - resolved. - CXR on 06/14: Persistent bilateral pleural effusions with bibasal airspace opacities likely atelectatic - encourage incentive spirometry Bronchitis - Does not appear this is pneumonia or aspiration with speech eval - Swallow study completed and does not appear to be at risk for aspiration. - No abx, no leukocytosis and afebrile. - She was DCd with a combination of Doxy and Cefdinir on 05/26 and appears to have been switched to Augmentin at the rehab facility - pt reports this was for the rash on her arms/legs. Holding abx as no clear infectious source and she recently had C diff. - Supportive care with O2, 2L at baseline, incentive spirometry, no steroids at this time as cough improving Weakness and poor appetite - improving Severe protein malnutrition - Protein supplementation with boost - She does not currently have abdominal pain or tenderness and believes that her chronic nausea is due to medications. -- Antibiotics are the most likely cause of the patient's nausea and vomiting complaints since her last admission. Since stopping antibiotics during this admission stay her nausea/vomiting has resolved. - Probiotic added GUSTAVO on CKD IV - Consult nephrology, Dr. Noyola follows as an outpatient -appreciate recs - Pt would like to avoid starting HD if possible and renal feels she can be monitored without for now Planning for fistula placement on 06/[address] Montemayor At this time no emergent need is seen for acute dialysis. If the patient does require this over the weekend we will need urologist to place a line and acute hemodialysis can be performed. 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 transfusion for a value < 8 as she has a history of CAD. CAD - no evidence of ACS - cont ASA, B jose - she is statin-intolerant, felodipine 5 mg PO HS HTN - poorly controlled on admission - received IV Hydralazine in ER - will apply NTG - cont Hydralazine 100 mg TID, Imdur 60 mg BID, Labetalol 200 mg BID - IV lopressor administered on 06/11 - improvement in BP DM - placed on SS + Lantus Erythematous skin patches - cause is not clear - pt follows with dermatology as an outpatient already. 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 She was told that they are due to her edema at [place]. - - Seems to be improving at this time. Insomnia - Continue xanax 0.5 mg HS and seroquel 25 mg HS. DVT ppx: heparin ppx CODE status: Full code Disposition: From [place], bed on hold. CM to assist with dc planning. PT/OT on board -likely to remain here over the weekend
--- NOTE | 2017-06-16 11:53 | Nephrology Progress Note ---
Nephrology Progress Note Date of Service Jun 16, 2017. Chief Complaint CKD Subjective No acute events overnight. Nava is resting comfortably in her bedside chair this morning. She reports some fatigue. Appetite is fair. She denies any nausea. Overall, she feels like symptoms are improving. She remains dyspneic with activity but activity tolerance seems to be improving. She continues to have a cough. She was not adverse to the idea of starting hemodialysis next week. Review of Systems A complete review of systems was performed. Pertinent positives are noted above. All other systems are negative. Vital Signs Last 8 Hrs Date Time Temp Pulse Resp B/P (MAP) Pulse Ox O2 Delivery O2 Flow Rate FiO2 06/16/17 11:18 64 16 98 Nasal Cannula 2.0 06/16/17 08:45 Nasal Cannula 2.0 06/16/17 07:36 36.6 61 16 148/62 (90) 97 Nasal Cannula 2.0 06/16/17 07:31 65 16 97 Nasal Cannula 2.0 Last Recorded Weight Weight (Kilograms): 76.400 Physical Exam General Appearance: no apparent distress Head: normocephalic, atraumatic Eyes: normal inspection, sclerae normal ENT: normal ENT inspection, pharynx normal Neck: supple, no JVD Respiratory/Chest: lungs clear, no respiratory distress, no accessory muscle use Cardiovascular: regular rate, rhythm, no gallop, no murmur Abdomen/GI: non tender, soft Extremities/Musculoskelatal: normal inspection, no pedal edema Neurologic/Psych: alert, normal mood/affect Family History No pertinent family history Social History Smoking Status: Never smoker Drug Use: none Marital Status: Housing Status: lives with family Occupation: retired Laboratory Results Past 24 Hours 06/16/17 06:31 Test 06/15/17 16:32 06/15/17 20:27 06/16/17 06:31 06/16/17 08:11 Bedside Glucose 125 mg/dl (70-90) 147 mg/dl (70-90) 121 mg/dl (70-90) Anion Gap 8.0 mmol/L (3-11) Est Creatinine Clear Calc Drug Dose 9.1 ml/min Estimated GFR () 11.1 Estimated GFR (Non- 9.5 BUN/Creatinine Ratio 18.3 (10-20) Calcium Level 8.3 mg/dl (8.5-10.1) Phosphorus Level 4.6 mg/dl (2.5-4.9) Magnesium Level 2.1 mg/dl (1.8-2.4) Allergies Coded Allergies: Carbamazepine (Verified Allergy, Intermediate, RASH, 06/10/17) Erythromycin (Verified Allergy, Intermediate, RASH, 06/10/17) Carvedilol (Verified Adverse Reaction, Intermediate, DIZZINESS, VISUAL DISTURBANCES, 06/10/17) Statins (Verified Adverse Reaction, Intermediate, MUSCLE ACHES, 06/10/17) Medications Current Inpatient Medications Medications (Trade) Dose Ordered Sig/Haja Route Start Time Stop Time Status Last Admin Dose Admin Heparin Sodium (Porcine) (Heparin Sq 5000 Unit/0.5ml) 5,000 unit Q8H SQ 06/11/17 06:00 07/11/17 05:59 06/16/17 06:29 5,000 UNIT Acetaminophen (Tylenol Tab) 650 mg Q4H PRN PO 06/11/17 01:00 07/11/17 00:59 Al Hydrox/Mg Hydrox/Simethicone (Maalox Max Susp) 15 ml Q4H PRN PO 06/11/17 01:00 07/11/17 00:59 Magnesium Hydroxide (Milk Of Magnesia Susp) 30 ml Q12H PRN PO 06/11/17 01:00 07/11/17 00:59 Ondansetron HCl (Zofran Inj) 4 mg Q6H PRN IV 06/11/17 01:00 07/11/17 00:59 06/15/17 09:30 4 MG Nitroglycerin (Nitrostat Tab) 0.4 mg UD PRN SL 06/11/17 01:00 07/11/17 00:59 Nitroglycerin (Nitroglycerin 2% Oint) 1 inch Q6H EXT 06/11/17 03:30 07/11/17 03:29 06/16/17 08:54 1 INCH Morphine Sulfate (MoRPHine SULFATE INJ) 2 mg Q30M PRN IV 06/11/17 01:00 06/25/17 00:59 Polyethylene (Miralax Powder Packet) 17 gm DAILY PRN PO 06/11/17 01:00 07/11/17 00:59 Alprazolam (Xanax Tab) 0.5 mg HS PO 06/11/17 21:00 07/11/17 20:59 06/15/17 21:07 0.5 MG Aspirin (Ecotrin Tab) 81 mg QAM PO 06/11/17 09:00 07/11/17 08:59 06/16/17 08:13 81 MG EZETIMIBE (Zetia Tab) 10 mg QAM PO 06/11/17 09:00 07/11/17 08:59 06/16/17 08:15 10 MG Hydralazine HCl (Apresoline Tab) 100 mg TID PO 06/11/17 09:00 07/11/17 08:59 06/16/17 08:14 100 MG Insulin Glargine (Lantus Solostar Pen) 16 units QPM SC 06/11/17 21:00 07/11/17 20:59 06/15/17 21:10 16 UNITS Isosorbide Mononitrate (Imdur Ext Rel Tab) 60 mg BID PO 06/11/17 09:00 07/11/17 08:59 06/16/17 08:13 60 MG Labetalol HCl (Normodyne Tab) 200 mg BID PO 06/11/17 09:00 07/11/17 08:59 06/16/17 08:14 200 MG Quetiapine Fumarate (seroQUEL TAB) 25 mg HS PO 06/11/17 21:00 07/11/17 20:59 06/15/17 21:00 25 MG Miscellaneous Information (Order Awaiting Action) 1 ea QS N/A 06/11/17 08:00 07/11/17 07:59 Miscellaneous Information (Order Awaiting Action) 1 ea QS N/A 06/11/17 08:00 07/11/17 07:59 Insulin Aspart (novoLOG ASPART) SLIDING SCALE G... ACHS SC 06/11/17 06:30 07/11/17 06:59 06/15/17 12:09 1 UNITS Glucose (Glucose 40% Gel) 15-30 GRAMS 15 GRAMS... UD PRN PO 06/11/17 03:45 07/11/17 03:44 Glucose (Glucose Chew Tab) 4-8 Tablets 4 Tabl... UD PRN PO 06/11/17 03:45 07/11/17 03:44 Dextrose (Dextrose 50% 50ML Syringe) 25-50ML OF 50% DW IV FOR... UD PRN IV 06/11/17 03:45 07/11/17 03:44 Glucagon (Glucagon Inj) 1 mg UD PRN SQ 06/11/17 03:45 07/11/17 03:44 Felodipine (Plendil Tabcr) 10 mg HS PO 06/11/17 21:00 07/11/17 20:59 06/15/17 21:00 10 MG Enteral Nutritional Formula (Boost Glucose Control) 1 can BIDM PO 06/12/17 08:00 07/12/17 07:59 06/16/17 08:15 1 CAN Iron Sucrose 200 mg/Sodium Chloride 110 ml @ 420 mls/hr Q2D@0900 IV 06/12/17 09:00 06/20/17 09:16 06/16/17 08:51 420 MLS/HR Guaifenesin/ Dextromethorphan (Robitussin-Dm Syrup) 5 ml Q6H PRN PO 06/12/17 10:45 07/12/17 10:44 06/16/17 08:14 5 ML Fluconazole (Diflucan Tab) 100 mg QAM PO 06/12/17 16:00 07/12/17 15:59 06/16/17 08:13 100 MG Lactobacillus Acidophilus (Floranex Tab) 4 tab TIDM PO 06/13/17 08:00 07/13/17 07:59 06/16/17 08:13 4 TAB Furosemide 80 mg/ Syringe 8 ml @ 4 mls/min BID17 IV 06/13/17 21:00 07/13/17 20:59 06/16/17 08:51 4 MLS/MIN Metolazone (Zaroxolyn Tab) 5 mg DAILY@0830 PO 06/15/17 16:30 07/15/17 16:29 06/16/17 08:14 5 MG Albuterol/ Ipratropium (Duoneb) 3 ml QIDR INH 06/15/17 12:00 07/15/17 11:59 06/16/17 11:16 3 ML Impression (1) Acute renal insufficiency (2) Chronic kidney disease (3) CHF exacerbation (4) Weakness Nava is a 82-year-old female with advanced CKD, hypertension, diabetes, CHF and a history of coronary artery disease status post CABG. She was admitted to the hospital with CHF exacerbation, pleural effusion and hypertensive urgency. CKD has been attributed to hypertensive and diabetic nephropathy, creatinine staying around 3.0 in GFR around 15-20 percent with A3 proteinuria. Volume status is improving but unfortunately, kidney function continues to decline. Nava and I had a long conversation about dialysis this morning. I also spoke to Dr. Montemayor and care coordination. AT this time, I would like to start the intake process for outpatient dialysis with [facility]. The patient will need to start dialysis at [facility] in the near future. She is scheduled for AVF placement on Sunday. 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 I will update vascular surgery regarding any potential change in plan of care tomorrow. Recommendations Anemia -- Epogen 18780 units given on 06/12/2017 -- Patient is receiving venofer CKD: -- Approaching ESRD -- No urgent indication for dialysis -- Vein mapping was done for future AV fistula placement, tentatively scheduled for Sunday06/18/16 -- Care coordination consult for intake with [facility] dialysis Hypertension: -- BP improving with diuresis -- Overall acceptable CHF: -- Continue diuretics including metolazone as Rx.
[2017-06-16] MEDS: ALPRAZOLAM 0.5 MG TAB PO SCH (20:50)
[2017-06-16] MEDS: QUETIAPINE FUMARATE 25 MG TAB PO SCH (20:51)
[2017-06-16] MEDS: FELODIPINE 5 MG TABCR PO SCH (20:52)
[2017-06-16] MEDS: INSULIN GLARGINE SOLOSTAR 100 UNITS/ML 3 ML PEN SC SCH (21:05)
[2017-06-17] VITALS (8 sets, daily range): BP systolic 138–151; BP diastolic 58–71; PULSE 59–68; TEMP 36.5–36.6; O2SAT 92–100
[2017-06-17] MEDS: NITROGLYCERIN 2% OINTMENT 30GM TUBE EXT SCH ×4 (03:12→21:33)
[2017-06-17] MEDS: HEPARIN SOD 5000 UNIT/0.5 ML CARP SQ SCH ×3 (05:44→20:58)
[2017-06-17 06:40] LABS: HEMATOCRIT 26.7 % (37-47); MEAN CELL VOLUME 87.3 fL (80-100); MEAN CORPUSCULAR HEMOGLOBIN 29.4 pg (25-34); MEAN CORPUSCULAR HGB CONC 33.7 g/dl (32-36); MEAN PLATELET VOLUME 8.6 fL (7.4-10.4); PLATELET COUNT 220 K/uL (130-400); RED CELL DISTRIBUTION WIDTH CV 15.3 % (11.5-14.5); RED CELL DISTRIBUTION WIDTH SD 47.7 fL (36.4-46.3); WHITE BLOOD COUNT 9.71 K/uL (4.8-10.8)
[2017-06-17] MEDS: ALBUT/IPRATROP 3MG/0.5MG NEB 3 ML VIAL INH SCH ×4 (07:22→20:00)
[2017-06-17] MEDS: GUAIFENESIN/DEXTROM SYRUP 100MG/10MG 5ML UDC PO PRN (08:36)
[2017-06-17] MEDS: LACTOBACILLUS ACIDOPHILUS (FLORANEX) TAB PO SCH ×3 (08:36→17:59)
[2017-06-17] MEDS: ASPIRIN 81 MG ECTAB PO SCH (08:36)
[2017-06-17] MEDS: FUROSEMIDE INJ 80 MG in SYRINGE 0 ML IV SCH ×2 (08:36→16:25)
[2017-06-17] MEDS: FLUCONAZOLE 100 MG TAB PO SCH (08:36)
[2017-06-17] MEDS: METOLAZONE 5 MG TAB PO SCH (08:36)
[2017-06-17] MEDS: EZETIMIBE 10MG TAB PO SCH (08:36)
[2017-06-17] MEDS: BOOST GLUCOSE CONTROL PO SCH ×2 (08:37→17:00)
[2017-06-17] MEDS: ISOSORBIDE MONONITRATE 60 MG TABCR PO SCH ×2 (08:37→20:40)
[2017-06-17] MEDS: LABETALOL HCL 200 MG TAB PO SCH ×2 (08:37→20:39)
[2017-06-17] MEDS: INSULIN ASPART 100 UNITS/ML 3 ML PEN SC SCH ×4 (08:38→20:58)
--- NOTE | 2017-06-17 09:17 | Progress Note ---
Progress Note Date of Service Jun 17, 2017. Progress Note Patient for fistula creation in left arm and permcath insertion. I have discussed the risks options and benefits of the procedure with the patient. The patient understands the risks options and benefits and agrees to the procedure.
[2017-06-17 10:12] LABS: ALBUMIN 2.1 gm/dl (3.4-5.0); CREATININE 4.22 mg/dl (0.60-1.20); POTASSIUM 4.8 mmol/L (3.5-5.1)
--- NOTE | 2017-06-17 11:45 | Nephrology Progress Note ---
Nephrology Progress Note Date of Service Jun 17, 2017. Chief Complaint CKD Subjective No acute events overnight. Nava is resting comfortably in bed this morning. Edema is improving. She continues to have activity limiting dyspnea and remains weak. Dyspnea does seem to be improving. She denies significant orthopnea. Appetite is fair. No nausea. No fevers or chills. We reviewed goals of care again today. We discussed dialysis in detail. Nava would like to plan for TDC and AVF placement. Review of Systems A complete review of systems was performed. Pertinent positives are noted above. All other systems are negative. Vital Signs Last 8 Hrs Date Time Temp Pulse Resp B/P (MAP) Pulse Ox O2 Delivery O2 Flow Rate FiO2 06/17/17 11:17 65 16 98 Nasal Cannula 2.0 06/17/17 09:00 Nasal Cannula 2.0 06/17/17 08:30 65 06/17/17 08:23 36.5 59 18 138/63 (88) 100 06/17/17 07:23 60 16 97 Nasal Cannula 2.0 Last Recorded Weight Weight (Kilograms): 77.000 Physical Exam General Appearance: WD/WN, no apparent distress, + pertinent finding (frail) Head: normocephalic, atraumatic Eyes: normal inspection, sclerae normal ENT: normal ENT inspection, pharynx normal Neck: supple, no JVD Respiratory/Chest: lungs clear, no respiratory distress, no accessory muscle use Cardiovascular: regular rate, rhythm, no gallop Abdomen/GI: non tender, soft Extremities/Musculoskelatal: normal inspection, no pedal edema, + pedal edema, + pertinent finding (UE edema L>R) Neurologic/Psych: alert, normal mood/affect Family History No pertinent family history Social History Smoking Status: Never smoker Drug Use: none Marital Status: Housing Status: lives with family Occupation: retired Laboratory Results Past 24 Hours 06/17/17 06:10 06/17/17 09:33 Test 06/16/17 12:17 06/16/17 16:43 06/16/17 20:14 06/17/17 06:10 Bedside Glucose 200 mg/dl (70-90) 194 mg/dl (70-90) 177 mg/dl (70-90) Red Blood Count 3.06 M/uL (4.2-5.4) Mean Corpuscular Volume 87.3 fL (80-100) Mean Corpuscular Hemoglobin 29.4 pg (25-34) Mean Corpuscular Hemoglobin Concent 33.7 g/dl (32-36) RDW Standard Deviation 47.7 fL (36.4-46.3) RDW Coefficient of Variation 15.3 % (11.5-14.5) Mean Platelet Volume 8.6 fL (7.4-10.4) Test 06/17/17 07:56 06/17/17 09:33 Bedside Glucose 108 mg/dl (70-90) Anion Gap 8.0 mmol/L (3-11) Est Creatinine Clear Calc Drug Dose 8.8 ml/min Estimated GFR () 10.6 Estimated GFR (Non- 9.1 BUN/Creatinine Ratio 17.5 (10-20) Calcium Level 8.0 mg/dl (8.5-10.1) Phosphorus Level 5.0 mg/dl (2.5-4.9) Albumin 2.1 gm/dl (3.4-5.0) Allergies Coded Allergies: Carbamazepine (Verified Allergy, Intermediate, RASH, 06/10/17) Erythromycin (Verified Allergy, Intermediate, RASH, 06/10/17) Carvedilol (Verified Adverse Reaction, Intermediate, DIZZINESS, VISUAL DISTURBANCES, 06/10/17) Statins (Verified Adverse Reaction, Intermediate, MUSCLE ACHES, 06/10/17) Medications Current Inpatient Medications Medications (Trade) Dose Ordered Sig/Haja Route Start Time Stop Time Status Last Admin Dose Admin Heparin Sodium (Porcine) (Heparin Sq 5000 Unit/0.5ml) 5,000 unit Q8H SQ 06/11/17 06:00 07/11/17 05:59 06/17/17 05:44 5,000 UNIT Acetaminophen (Tylenol Tab) 650 mg Q4H PRN PO 06/11/17 01:00 07/11/17 00:59 Al Hydrox/Mg Hydrox/Simethicone (Maalox Max Susp) 15 ml Q4H PRN PO 06/11/17 01:00 07/11/17 00:59 Magnesium Hydroxide (Milk Of Magnesia Susp) 30 ml Q12H PRN PO 06/11/17 01:00 07/11/17 00:59 Ondansetron HCl (Zofran Inj) 4 mg Q6H PRN IV 06/11/17 01:00 07/11/17 00:59 06/15/17 09:30 4 MG Nitroglycerin (Nitrostat Tab) 0.4 mg UD PRN SL 06/11/17 01:00 07/11/17 00:59 Nitroglycerin (Nitroglycerin 2% Oint) 1 inch Q6H EXT 06/11/17 03:30 07/11/17 03:29 06/17/17 08:43 1 INCH Morphine Sulfate (MoRPHine SULFATE INJ) 2 mg Q30M PRN IV 06/11/17 01:00 06/25/17 00:59 Polyethylene (Miralax Powder Packet) 17 gm DAILY PRN PO 06/11/17 01:00 07/11/17 00:59 Alprazolam (Xanax Tab) 0.5 mg HS PO 06/11/17 21:00 07/11/17 20:59 06/16/17 20:50 0.5 MG Aspirin (Ecotrin Tab) 81 mg QAM PO 06/11/17 09:00 07/11/17 08:59 06/17/17 08:36 81 MG EZETIMIBE (Zetia Tab) 10 mg QAM PO 06/11/17 09:00 07/11/17 08:59 06/17/17 08:36 10 MG Hydralazine HCl (Apresoline Tab) 100 mg TID PO 06/11/17 09:00 07/11/17 08:59 06/17/17 08:37 100 MG Insulin Glargine (Lantus Solostar Pen) 16 units QPM SC 06/11/17 21:00 07/11/17 20:59 06/16/17 21:05 16 UNITS Isosorbide Mononitrate (Imdur Ext Rel Tab) 60 mg BID PO 06/11/17 09:00 07/11/17 08:59 06/17/17 08:37 60 MG Labetalol HCl (Normodyne Tab) 200 mg BID PO 06/11/17 09:00 07/11/17 08:59 06/17/17 08:37 200 MG Quetiapine Fumarate (seroQUEL TAB) 25 mg HS PO 06/11/17 21:00 07/11/17 20:59 06/16/17 20:51 25 MG Miscellaneous Information (Order Awaiting Action) 1 ea QS N/A 06/11/17 08:00 07/11/17 07:59 Miscellaneous Information (Order Awaiting Action) 1 ea QS N/A 06/11/17 08:00 07/11/17 07:59 Insulin Aspart (novoLOG ASPART) SLIDING SCALE G... ACHS SC 06/11/17 06:30 07/11/17 06:59 06/16/17 21:05 1 UNITS Glucose (Glucose 40% Gel) 15-30 GRAMS 15 GRAMS... UD PRN PO 06/11/17 03:45 07/11/17 03:44 Glucose (Glucose Chew Tab) 4-8 Tablets 4 Tabl... UD PRN PO 06/11/17 03:45 07/11/17 03:44 Dextrose (Dextrose 50% 50ML Syringe) 25-50ML OF 50% DW IV FOR... UD PRN IV 06/11/17 03:45 07/11/17 03:44 Glucagon (Glucagon Inj) 1 mg UD PRN SQ 06/11/17 03:45 07/11/17 03:44 Felodipine (Plendil Tabcr) 10 mg HS PO 06/11/17 21:00 07/11/17 20:59 06/16/17 20:52 10 MG Enteral Nutritional Formula (Boost Glucose Control) 1 can BIDM PO 06/12/17 08:00 07/12/17 07:59 06/17/17 08:37 1 CAN Iron Sucrose 200 mg/Sodium Chloride 110 ml @ 420 mls/hr Q2D@0900 IV 06/12/17 09:00 06/20/17 09:16 06/16/17 08:51 420 MLS/HR Guaifenesin/ Dextromethorphan (Robitussin-Dm Syrup) 5 ml Q6H PRN PO 06/12/17 10:45 07/12/17 10:44 06/17/17 08:36 5 ML Fluconazole (Diflucan Tab) 100 mg QAM PO 06/12/17 16:00 07/12/17 15:59 06/17/17 08:36 100 MG Lactobacillus Acidophilus (Floranex Tab) 4 tab TIDM PO 06/13/17 08:00 4/6/18 07:59 06/17/17 08:36 4 TAB Furosemide 80 mg/ Syringe 8 ml @ 4 mls/min BID17 IV 06/13/17 21:00 07/13/17 20:59 06/17/17 08:36 4 MLS/MIN Metolazone (Zaroxolyn Tab) 5 mg DAILY@0830 PO 06/15/17 16:30 07/15/17 16:29 06/17/17 08:36 5 MG Albuterol/ Ipratropium (Duoneb) 3 ml QIDR INH 06/15/17 12:00 07/15/17 11:59 06/17/17 11:16 3 ML Cefazolin Sodium 7.5 ml @ 1.667 mls/ min PREOP IV 06/18/17 06:00 06/18/17 18:00 Impression (1) Acute renal insufficiency (2) Chronic kidney disease (3) CHF exacerbation (4) Weakness Nava is a 82-year-old female with advanced CKD, hypertension, diabetes, CHF and a history of coronary artery disease status post CABG. She was admitted to the hospital with CHF exacerbation, pleural effusion and hypertensive urgency. 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 We have discussed the advanced nature of her renal dysfunction in detail. Volume status is improving but unfortunately, kidney function continues to decline. Nava and I had another long conversation about dialysis this morning. Plan of care was updated with Dr. Montemayor. I have requested TDC placement for tomorrow. AVF to be placed as well if able. We will plan to start dialysis once catheter is placed. Case management has initiated intake [facility] with plans for dialysis three days weekly at the [place] unit under the care of Dr. Noyola at discharge. Recommendations Anemia -- Epogen 81602 units given on 06/12/2017 -- JUAN PABLO being treated with venofer CKD/ESRD: -- Plan permcath placement tomorrow -- AVF to be placed in the OR tomorrow if possible -- Once dialysis catheter is in place, will plan for first treatment likely Sunday -- Case management has started intake process for outpatient dialysis Hypertension: -- BP improving with diuresis -- Overall acceptable CHF: -- Continue diuretics including metolazone as Rx.
[2017-06-17] MEDS: ONDANSETRON INJ 2 MG/ML 2 ML VIAL IV PRN (16:24)
--- NOTE | 2017-06-17 17:33 | Progress Note ---
Subjective Date of Service: Jun 17, 2017. Subjective Pt evaluation today including: conversation w/ patient Pt off of O2 today and doing better. A bit short at times, but not like prior. Tolerating PO. Pt denies fever, chest pain, abd pain, n/v/c/d, LE pain. LE swelling is improving. UE swelling is improving. She is requesting to go for a walk in the halls today. Problem List Medical Problems: (1) Acute kidney failure Status: Acute (2) Cholelithiasis Status: Acute (3) Dehydration Status: Acute (4) HTN (hypertension) Status: Acute (5) Hypertensive emergency Status: Acute (6) Influenza Status: Acute (7) Nausea and vomiting Status: Acute (8) Proteinuria Status: Acute Review of Systems All Other Systems: Reviewed and Negative Objective Vital Signs Date Time Temp Pulse Resp B/P (MAP) Pulse Ox O2 Delivery O2 Flow Rate FiO2 06/17/17 16:15 Nasal Cannula 2.0 06/17/17 15:30 60 16 94 Room Air 06/17/17 14:23 36.6 60 18 151/66 (94) 92 06/17/17 13:15 68 138/71 (93) 06/17/17 11:17 65 16 98 Nasal Cannula 2.0 06/17/17 09:00 Nasal Cannula 2.0 06/17/17 08:30 65 06/17/17 08:23 36.5 59 18 138/63 (88) 100 06/17/17 07:23 60 16 97 Nasal Cannula 2.0 06/17/17 00:00 Nasal Cannula 2.0 06/16/17 23:41 36.3 60 16 136/69 (91) 98 Nasal Cannula 2.0 06/16/17 19:41 61 16 97 Nasal Cannula 2.0 06/16/17 19:00 Nasal Cannula 2.0 Physical Exam Comments: General Appearance: WD/WN, no apparent distress Eyes: normal inspection, sclerae normal Respiratory/Chest: normal breath sounds, no respiratory distress Cardiovascular: regular rate, rhythm, + normal peripheral pulses Abdomen: non tender, soft Extremities: non-tender, + pedal edema (1+) Neurologic/Psychiatric: alert, normal mood/affect, oriented x 3 Skin: normal color, warm/dry Laboratory Results Last 24 Hours Test 06/16/17 20:14 06/17/17 06:10 06/17/17 07:56 06/17/17 09:33 Bedside Glucose 177 mg/dl 108 mg/dl White Blood Count 9.71 K/uL Red Blood Count 3.06 M/uL Hemoglobin 9.0 g/dL Hematocrit 26.7 % Mean Corpuscular Volume 87.3 fL Mean Corpuscular Hemoglobin 29.4 pg Mean Corpuscular Hemoglobin Concent 33.7 g/dl RDW Standard Deviation 47.7 fL RDW Coefficient of Variation 15.3 % Platelet Count 220 K/uL Mean Platelet Volume 8.6 fL Sodium Level 132 mmol/L Potassium Level 4.8 mmol/L Chloride Level 101 mmol/L Carbon Dioxide Level 23 mmol/L Anion Gap 8.0 mmol/L Blood Urea Nitrogen 74 mg/dl Creatinine 4.22 mg/dl Est Creatinine Clear Calc Drug Dose 8.8 ml/min Estimated GFR () 10.6 Estimated GFR (Non- 9.1 BUN/Creatinine Ratio 17.5 Random Glucose 166 mg/dl Calcium Level 8.0 mg/dl Phosphorus Level 5.0 mg/dl Albumin 2.1 gm/dl Test 06/17/17 11:44 06/17/17 17:02 Bedside Glucose 171 mg/dl 141 mg/dl Assessment and Plan 82 y/o F Hx CKD IV, CAD, HTN, HPL, anemia, DM II, chronic diastolic CHF, 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 Recent admissions for UTI, ARF, Cdiff. Admitted 05/19 with PNM and medication-induced agranulocytosis/neutropenia 05/19, DCd 05/26 to a rehab facility. She presents from [place] rehab facility with a persistent productive cough, SOB, nausea, weakness and a poor appetite. She denies CP, vomiting or dysuria. She is afebrile on arrival. Her initial SBP was over 200. She is mildly hypoxic. A CXR is consistent with vascular congestion but could not r/o superimposed PNM. SOB secondary to acute on chronic diastolic CHF exacerbation. - diuresis as per nephrology recs - Cont Labetalol - 5 mg IV prn, has not required since 06/11 for hypertension - resolved. - CXR on 06/14: Persistent bilateral pleural effusions with bibasal airspace opacities likely atelectatic - encourage incentive spirometry Bronchitis - Does not appear this is pneumonia or aspiration with speech eval - Swallow study completed and does not appear to be at risk for aspiration. - No abx, no leukocytosis and afebrile. - She was DCd with a combination of Doxy and Cefdinir on 05/26 and appears to have been switched to Augmentin at the rehab facility - pt reports this was for the rash on her arms/legs. Holding abx as no clear infectious source and she recently had C diff. - Supportive care with O2, 2L at baseline, incentive spirometry, no steroids at this time as cough improving Weakness and poor appetite - improving Severe protein malnutrition - Protein supplementation with boost - She does not currently have abdominal pain or tenderness and believes that her chronic nausea is due to medications. -- Antibiotics are the most likely cause of the patient's nausea and vomiting complaints since her last admission. Since stopping antibiotics during this admission stay her nausea/vomiting has resolved. - Probiotic added GUSTAVO on CKD IV - Consult nephrology, Dr. Noyola follows as an outpatient -appreciate recs - Pt would like to avoid starting HD if possible and renal feels she can be monitored without for now Planning for fistula placement on 06/[address] Montemayor with TDC placed at the same time At this time no emergent need is seen for acute dialysis. If the patient does require this over the weekend we will need mine boss to place a line and acute hemodialysis can be performed. Anemia - she is likely transfusion-dependent - Iron panel completed, start IV Venofer on 06/12 - s/p 1 U PRBCs on 06/14 - improved to 9.5, however is trending down again today-- stool hemoccult pending transfusion for a value < 8 as she has a history of CAD. CAD - no evidence of ACS - cont ASA, B jose - she is statin-intolerant, felodipine 5 mg PO HS HTN - poorly controlled on admission - received IV Hydralazine in ER - will apply NTG - cont Hydralazine 100 mg TID, Imdur 60 mg BID, Labetalol 200 mg BID - IV lopressor administered on 06/11 - improvement in BP DM - placed on SS + Lantus Erythematous skin patches - cause is not clear - pt follows with dermatology as an outpatient already. 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 She was told that they are due to her edema at [facility]. - - Seems to be improving at this time. Insomnia - Continue xanax 0.5 mg HS and seroquel 25 mg HS. DVT ppx: heparin ppx CODE status: Full code Disposition: From [place], bed on hold. CM to assist with dc planning. PT/OT on board -likely to remain here over the weekend
[2017-06-17] MEDS ORDERED: NURSING VERBAL MED ORDER ONE ×2 (18:45)
[2017-06-17] MEDS ORDERED: ONDANSETRON INJ 2 MG/ML 2 ML VIAL IV STA (18:53)
[2017-06-17] MEDS: ALPRAZOLAM 0.5 MG TAB PO SCH (20:38)
[2017-06-17] MEDS: FELODIPINE 5 MG TABCR PO SCH (20:41)
[2017-06-17] MEDS: QUETIAPINE FUMARATE 25 MG TAB PO SCH (20:49)
[2017-06-17] MEDS: INSULIN GLARGINE SOLOSTAR 100 UNITS/ML 3 ML PEN SC SCH (20:58)
[2017-06-18] VITALS (17 sets, daily range): BP systolic 133–158; BP diastolic 54–72; PULSE 59–63; TEMP 34.8–36.6; O2SAT 93–97
[2017-06-18] MEDS: NITROGLYCERIN 2% OINTMENT 30GM TUBE EXT SCH ×4 (02:52→21:49)
[2017-06-18] MEDS: HEPARIN SOD 5000 UNIT/0.5 ML CARP SQ SCH ×3 (05:49→21:10)
[2017-06-18] MEDS ORDERED: CEFAZOLIN 1000MG IV PUSH 7.5 ML IV SCH (06:00)
[2017-06-18] MEDS ORDERED: CEFAZOLIN IV 1,000 MG in DEXTROSE 5% 50ML 50 ML IV SCH (06:00)
[2017-06-18 06:44] LABS: ALBUMIN 2.1 gm/dl (3.4-5.0); CALCIUM 8.4 mg/dl (8.5-10.1); CREATININE 4.31 mg/dl (0.60-1.20); POTASSIUM 4.5 mmol/L (3.5-5.1)
[2017-06-18 06:45] LABS: PHOSPHORUS 4.9 mg/dl (2.5-4.9)
[2017-06-18] MEDS: ALBUT/IPRATROP 3MG/0.5MG NEB 3 ML VIAL INH SCH ×4 (07:17→19:50)
[2017-06-18] MEDS ORDERED: NURSING VERBAL MED ORDER ONE ×2 (07:45→17:45)
[2017-06-18] MEDS: BOOST GLUCOSE CONTROL PO SCH ×2 (07:52→17:00)
[2017-06-18] MEDS: LACTOBACILLUS ACIDOPHILUS (FLORANEX) TAB PO SCH ×3 (07:53→18:08)
[2017-06-18] MEDS: ASPIRIN 81 MG ECTAB PO SCH (07:54)
[2017-06-18] MEDS: ISOSORBIDE MONONITRATE 60 MG TABCR PO SCH ×2 (07:54→20:04)
[2017-06-18] MEDS: FLUCONAZOLE 100 MG TAB PO SCH (07:55)
[2017-06-18] MEDS: LABETALOL HCL 200 MG TAB PO SCH ×2 (07:56→20:04)
[2017-06-18] MEDS: EZETIMIBE 10MG TAB PO SCH (07:56)
[2017-06-18] MEDS: METOLAZONE 5 MG TAB PO SCH (07:57)
--- NOTE | 2017-06-18 08:48 | Progress Note ---
Progress Note Date of Service Jun 18, 2017. Progress Note Patient for a right antecubital basilic vein fistula creation and insertion of permcath today. I have discussed the risks options and benefits of the procedure with the patient. The patient understands the risks options and benefits and agrees to the procedure. I have examined the patient, reviewed the History & Physical and in the interval since the performance of the History & Physical I have noted the following changes of clinical significance: No changes noted
[2017-06-18] MEDS: FUROSEMIDE INJ 80 MG in SYRINGE 0 ML IV SCH ×2 (09:00→18:08)
[2017-06-18] MEDS ORDERED: PROPOFOL IV EMULSION 10 MG/ML 20 ML VIAL IV ONE (09:52)
[2017-06-18] MEDS ORDERED: LIDOCAINE HCL 2% 2 ML VIAL (20MG/ML) ONE (09:52)
[2017-06-18] MEDS ORDERED: MIDAZOLAM HCL 1 MG/ML 2ML VIAL ONE (09:52)
[2017-06-18] MEDS ORDERED: FENTANYL CITRATE INJ 50 MCG/1 ML 2 ML VIAL ONE (09:53)
[2017-06-18] MEDS ORDERED: GELATIN SPONGE 12-7MM ONE (09:56)
[2017-06-18] MEDS ORDERED: THROMBIN FOR SOLN 20000 UNIT KIT ONE (09:56)
[2017-06-18] MEDS ORDERED: BUPIVACAINE/EPINEPHRINE 0.5% MPF 1:200,000 30 ML VIAL ONE (09:57)
[2017-06-18] MEDS ORDERED: HEPARIN SOD (PORCINE) 1000 UNIT/ML 10 ML VIAL ONE (09:57)
[2017-06-18] MEDS ORDERED: LIDOCAINE HCL 1% 20 ML VIAL ONE (09:57)
[2017-06-18] MEDS ORDERED: HEPARIN SOD (PORCINE) 5000 UNIT/ML 1 ML VIAL ONE (10:13)
--- NOTE | 2017-06-18 10:40 | Nephrology Progress Note ---
Nephrology Progress Note Date of Service Jun 18, 2017. Chief Complaint CKD Subjective No acute events overnight. Nava was seen and evaluated this morning prior to transfer to the OR. She had no acute complaints. Weakness and mild dyspnea persist. UE edema was improving. I discussed the plan of care with vascular surgery again this morning. Review of Systems A complete review of systems was performed. Pertinent positives are noted above. All other systems are negative. Vital Signs Last 8 Hrs Date Time Temp Pulse Resp B/P (MAP) Pulse Ox O2 Delivery O2 Flow Rate FiO2 06/18/17 08:00 Room Air 06/18/17 07:55 36.5 60 20 138/72 (94) 93 Nasal Cannula 2.0 Last Recorded Weight Weight (Kilograms): 76.900 Physical Exam General Appearance: WD/WN, no apparent distress Head: normocephalic, atraumatic Eyes: normal inspection, sclerae normal ENT: normal ENT inspection, pharynx normal Neck: supple, no JVD Respiratory/Chest: lungs clear, no respiratory distress, no accessory muscle use Cardiovascular: regular rate, rhythm, no gallop Back: no CVA tenderness Abdomen/GI: non tender, soft Extremities/Musculoskelatal: normal inspection, no pedal edema, + pedal edema Neurologic/Psych: alert, normal mood/affect Family History No pertinent family history Social History Smoking Status: Never smoker Drug Use: none Marital Status: Housing Status: lives with family Occupation: retired Laboratory Results Past 24 Hours 06/18/17 05:52 Test 06/17/17 11:44 06/17/17 17:02 06/17/17 20:20 06/18/17 05:52 Bedside Glucose 171 mg/dl (70-90) 141 mg/dl (70-90) 168 mg/dl (70-90) Anion Gap 7.0 mmol/L (3-11) Est Creatinine Clear Calc Drug Dose 8.6 ml/min Estimated GFR () 10.3 Estimated GFR (Non- 8.9 BUN/Creatinine Ratio 18.3 (10-20) Calcium Level 8.4 mg/dl (8.5-10.1) Phosphorus Level 4.9 mg/dl (2.5-4.9) Albumin 2.1 gm/dl (3.4-5.0) Test 06/18/17 07:40 Bedside Glucose 93 mg/dl (70-90) Allergies Coded Allergies: Carbamazepine (Verified Allergy, Intermediate, RASH, 06/10/17) Erythromycin (Verified Allergy, Intermediate, RASH, 06/10/17) Carvedilol (Verified Adverse Reaction, Intermediate, DIZZINESS, VISUAL DISTURBANCES, 06/10/17) Statins (Verified Adverse Reaction, Intermediate, MUSCLE ACHES, 06/10/17) Medications Current Inpatient Medications Medications (Trade) Dose Ordered Sig/Haja Route Start Time Stop Time Status Last Admin Dose Admin Heparin Sodium (Porcine) (Heparin Sq 5000 Unit/0.5ml) 5,000 unit Q8H SQ 06/11/17 06:00 07/11/17 05:59 06/18/17 05:49 5,000 UNIT Acetaminophen (Tylenol Tab) 650 mg Q4H PRN PO 06/11/17 01:00 07/11/17 00:59 Al Hydrox/Mg Hydrox/Simethicone (Maalox Max Susp) 15 ml Q4H PRN PO 06/11/17 01:00 07/11/17 00:59 Magnesium Hydroxide (Milk Of Magnesia Susp) 30 ml Q12H PRN PO 06/11/17 01:00 07/11/17 00:59 Ondansetron HCl (Zofran Inj) 4 mg Q6H PRN IV 06/11/17 01:00 07/11/17 00:59 06/17/17 16:24 4 MG Nitroglycerin (Nitrostat Tab) 0.4 mg UD PRN SL 06/11/17 01:00 07/11/17 00:59 Nitroglycerin (Nitroglycerin 2% Oint) 1 inch Q6H EXT 06/11/17 03:30 07/11/17 03:29 06/18/17 02:52 1 INCH Morphine Sulfate (MoRPHine SULFATE INJ) 2 mg Q30M PRN IV 06/11/17 01:00 06/25/17 00:59 Polyethylene (Miralax Powder Packet) 17 gm DAILY PRN PO 06/11/17 01:00 07/11/17 00:59 Alprazolam (Xanax Tab) 0.5 mg HS PO 06/11/17 21:00 07/11/17 20:59 06/17/17 20:38 0.5 MG Aspirin (Ecotrin Tab) 81 mg QAM PO 06/11/17 09:00 07/11/17 08:59 06/18/17 07:54 81 MG EZETIMIBE (Zetia Tab) 10 mg QAM PO 06/11/17 09:00 07/11/17 08:59 06/18/17 07:56 10 MG Hydralazine HCl (Apresoline Tab) 100 mg TID PO 06/11/17 09:00 07/11/17 08:59 06/18/17 07:55 100 MG Insulin Glargine (Lantus Solostar Pen) 16 units QPM SC 06/11/17 21:00 07/11/17 20:59 06/17/17 20:58 16 UNITS Isosorbide Mononitrate (Imdur Ext Rel Tab) 60 mg BID PO 06/11/17 09:00 07/11/17 08:59 06/18/17 07:54 60 MG Labetalol HCl (Normodyne Tab) 200 mg BID PO 06/11/17 09:00 07/11/17 08:59 06/18/17 07:56 200 MG Quetiapine Fumarate (seroQUEL TAB) 25 mg HS PO 06/11/17 21:00 07/11/17 20:59 06/17/17 20:49 25 MG Miscellaneous Information (Order Awaiting Action) 1 ea QS N/A 06/11/17 08:00 07/11/17 07:59 Miscellaneous Information (Order Awaiting Action) 1 ea QS N/A 06/11/17 08:00 07/11/17 07:59 Glucose (Glucose 40% Gel) 15-30 GRAMS 15 GRAMS... UD PRN PO 06/11/17 03:45 07/11/17 03:44 Glucose (Glucose Chew Tab) 4-8 Tablets 4 Tabl... UD PRN PO 06/11/17 03:45 07/11/17 03:44 Dextrose (Dextrose 50% 50ML Syringe) 25-50ML OF 50% DW IV FOR... UD PRN IV 06/11/17 03:45 07/11/17 03:44 Glucagon (Glucagon Inj) 1 mg UD PRN SQ 06/11/17 03:45 07/11/17 03:44 Felodipine (Plendil Tabcr) 10 mg HS PO 06/11/17 21:00 07/11/17 20:59 06/17/17 20:41 10 MG Enteral Nutritional Formula (Boost Glucose Control) 1 can BIDM PO 06/12/17 08:00 07/12/17 07:59 06/17/17 08:37 1 CAN Iron Sucrose 200 mg/Sodium Chloride 110 ml @ 420 mls/hr Q2D@0900 IV 06/12/17 09:00 06/20/17 09:16 06/16/17 08:51 420 MLS/HR Guaifenesin/ Dextromethorphan (Robitussin-Dm Syrup) 5 ml Q6H PRN PO 06/12/17 10:45 07/12/17 10:44 06/17/17 08:36 5 ML Fluconazole (Diflucan Tab) 100 mg QAM PO 06/12/17 16:00 07/12/17 15:59 06/18/17 07:55 100 MG Lactobacillus Acidophilus (Floranex Tab) 4 tab TIDM PO 06/13/17 08:00 07/13/17 07:59 06/17/17 13:07 4 TAB Furosemide 80 mg/ Syringe 8 ml @ 4 mls/min BID17 IV 06/13/17 21:00 07/13/17 20:59 06/17/17 16:25 4 MLS/MIN Metolazone (Zaroxolyn Tab) 5 mg DAILY@0830 PO 06/15/17 16:30 07/15/17 16:29 06/18/17 07:57 5 MG Albuterol/ Ipratropium (Duoneb) 3 ml QIDR INH 06/15/17 12:00 07/15/17 11:59 06/17/17 15:28 3 ML Cefazolin Sodium 7.5 ml @ 1.667 mls/ min PREOP IV 06/18/17 06:00 06/18/17 18:00 Insulin Aspart (novoLOG ASPART) SLIDING SCALE G... Q6 SC 06/18/17 12:00 07/18/17 11:59 Impression (1) Acute renal insufficiency (2) Chronic kidney disease (3) CHF exacerbation (4) Weakness Nava is a 82-year-old female with advanced CKD, hypertension, diabetes, CHF and a history of coronary artery disease status post CABG. She was admitted to the hospital with CHF exacerbation, pleural effusion and hypertensive urgency. 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 We have discussed the advanced nature of her renal dysfunction in detail. Volume status is improving but unfortunately, kidney function continues to decline. Nava is scheduled for TDC and permcath placement today. We will plan to start dialysis once catheter is placed. Case management has initiated intake for [facility] with plans for dialysis three days weekly at the [place] unit under the care of Dr. Noyola at discharge. Recommendations Anemia -- Epogen 30937 units given on 06/12/2017 -- JUAN PABLO being treated with venofer CKD/ESRD: -- Plan permcath placement today (with AVF if possible) -- Once dialysis catheter is in place, will plan for first treatment -- Case management has started intake process for outpatient dialysis Hypertension: -- BP improving with diuresis -- Overall acceptable CHF: -- Continue diuretics including metolazone as Rx.
[2017-06-18] MEDS ORDERED: ATROPINE SULFATE 0.1 MG/ML 5ML SYR IV PRN (11:15)
[2017-06-18] MEDS ORDERED: ONDANSETRON INJ 2 MG/ML 2 ML VIAL IV PRN (11:15)
[2017-06-18] MEDS ORDERED: FENTANYL CITRATE INJ 50 MCG/1 ML 2 ML VIAL IV PRN (11:15)
[2017-06-18] MEDS ORDERED: EpHEDrine SULFATE INJ 50 MG/ML AMP IV PRN (11:15)
[2017-06-18] MEDS ORDERED: LIDOCAINE HCL 1% MPF 5 ML VIAL INJ ONE (11:47)
--- NOTE | 2017-06-18 11:48 | [facility] Post Operative Brief Note ---
Immediate Operative Summary Operative Date Jun 18, 2017. Pre-Operative Diagnosis End-Stage Renal Disease, Need for Hemodialysis Post-Operative Diagnosis End-Stage Renal Disease, Need for Hemodialysis Procedure(s) Performed Right Antecubital-Basilic Vein Arterio-Venous Fistula Creation; Insertion of Perm Catheter, Right Internal Jugular Approach, Ultrasound Localization of Right Internal Jugular Vein, Floroscopy for Positioning Surgeon Dr. Montemayor Hothouse Worker Surgeon(s) INDU Angulo Estimated Blood Loss 5 ml, 5 ml Findings Consistent with Post-Op Diagnosis Specimens none per surgeon Drains None Anesthesia Type MAC Complication(s) none Disposition Accompanied Pt To Recover: no Disposition: Recovery Room / PACU
--- NOTE | 2017-06-18 11:58 | [facility] Operative Report ---
Operative Report Operative Date Jun 18, 2017. Pre-Operative Diagnosis End-Stage Renal Disease, Need for Hemodialysis Post-Operative Diagnosis End-Stage Renal Disease, Need for Hemodialysis Procedure(s) Performed Right Antecubital-Basilic Vein Arterio-Venous Fistula Creation; Insertion of Perm Catheter, Right Internal Jugular Approach, Ultrasound Localization of Right Internal Jugular Vein, Floroscopy for Positioning Surgeon Dr. Montemayor Cashier And Waiter/Waitress Surgeon(s) INDU Angulo Estimated Blood Loss 5 ml, 5 ml Findings There is a good thrill in the fistula. Radial pulses palpable. Tip of the PermCath is in the superior vena cava distally. Specimens none per surgeon Drains None Anesthesia Type MAC Complication(s) none Disposition no Recovery Room / PACU Indications Patient is a 82-year-old female with end-stage renal disease in need of a permanent access as well as an acute access for dialysis. PermCath was recommended. We also recommended a right antecubital basilic vein fistula creation. I have discussed the risks options and benefits of the procedure with the patient. The patient understands the risks options and benefits and agrees to the procedure. Description of Procedure Patient was taken to the angio suite and placed in the supine position. The right arm was then prepped and draped in a sterile manner. Transverse incision was made just above the antecubital fossa. Dissection was carried down and the brachial artery was identified. It was of good caliber approximate 4-1/2 mm in size. Dissection was then accomplished medially which exposed the basilic vein. It was approximately 3 mm in size. The basilic vein was then transected distally. The brachial artery was then clamped proximally and distally. A longitudinal arteriotomy was performed. The basilic vein was then beveled and an end to side anastomosis was accomplished using a 6-0 Prolene suture. Prior to completing the closure backbleeding and fore bleeding bleeding was allowed to occur. Final few sutures were then placed and securely tied. Clamps were then removed. Excellent thrill was felt in the fistula. A large side branch was then identified and ligated. Adequate hemostasis was then noted. The wound was then closed in usual fashion using a running 3-0 Vicryl suture for the subcutaneous layer and a running 4-0 subcuticular Vicryl suture for the skin edges. Dermabond was used for dressing. The drapes were then removed. The right side of the neck and chest wall were prepped and draped in a sterile manner. Local anesthesia was then administered to the appropriate areas of the neck and chest wall. Ultrasound was then used to locate the right internal jugular vein. The vein compressed easily, had no filing defects, and was patent. The vein was then punctured under direct ultrasound imaging. A guidewire was then passed centrally under fluoroscopic imaging. A stab wound was then made in the anterior chest wall and a 19 cm permcath was passed from the stab wound on the chest wall to the puncture site on the neck. The puncture site was then dilated till the 14Fr peel away sheath was inserted. The permcath was then inserted through the sheath to a central position in the distal superior vena cava. The peel away sheath was then removed. The catheter was then sutured in place using nylon sutures. The puncture was then closed using a 4-0 Vicryl subcuticular suture. Dermabond was used for a dressing on the puncture site. Both ports aspirated and flushed easily and were then packed with heparin. A sterile dressing was applied to the catheter. The patient left the angio suite in good condition and tolerated the procedure well. Lisa Monterroso Pac assisted due to lack of resident availability and was necessary for prepping, draping, retraction, wound closure deep layers, subcutaneous tissue, and skin closure and was necessary for assisting with the case. I attest to the content of the Intraoperative Record and any orders documented therein. Any exceptions are noted below.
[2017-06-18] MEDS ORDERED: INSULIN ASPART 100 UNITS/ML 3 ML PEN SC SCH (12:00)
--- NOTE | 2017-06-18 13:11 | Anesthesiology Progress Note ---
Anesthesia Post Op Note Date & Time Jun 18, 2017 at 13:11 Vital Signs Pain Intensity: 0 Vital Signs Past 12 Hours Date Time Temp Pulse Resp B/P (MAP) Pulse Ox O2 Delivery O2 Flow Rate FiO2 06/18/17 12:40 60 20 06/18/17 12:40 60 20 96 06/18/17 12:36 129/55 06/18/17 12:35 60 11 06/18/17 12:35 60 11 96 06/18/17 12:32 132/56 06/18/17 12:30 60 13 06/18/17 12:30 60 13 96 06/18/17 12:27 36.3 60 16 132/56 (67) 96 Nasal Cannula 2 06/18/17 12:26 145/56 06/18/17 12:25 60 15 06/18/17 12:25 60 15 96 06/18/17 12:24 60 13 96 06/18/17 12:24 60 13 06/18/17 12:21 113/60 06/18/17 12:19 60 16 96 06/18/17 12:19 60 16 06/18/17 12:18 60 16 97 06/18/17 12:18 60 16 06/18/17 12:17 138/55 06/18/17 12:13 60 9 126/56 100 06/18/17 12:13 60 9 06/18/17 12:08 60 19 06/18/17 12:08 60 19 97 06/18/17 12:06 126/59 06/18/17 12:03 60 12 06/18/17 12:03 60 12 99 06/18/17 12:01 124/49 06/18/17 11:59 123/54 06/18/17 11:58 35.8 60 12 123/54 (69) 99 Oxymask 10 06/18/17 11:58 61 52 06/18/17 11:58 61 52 99 06/18/17 08:00 Room Air 06/18/17 07:55 36.5 60 20 138/72 (94) 93 Nasal Cannula 2.0 Notes Mental Status: alert / awake / arousable, participated in evaluation Pt Amnestic to Procedure: Yes Nausea / Vomiting: adequately controlled Pain: adequately controlled Airway Patency, RR, SpO2: stable & adequate BP & HR: stable & adequate Hydration State: stable & adequate Anesthetic Complications: no major complications apparent
[2017-06-18] MEDS: IRON SUCROSE INJ 200 MG in SODIUM CHLORIDE 0.9% 100ML 100 ML IV SCH (14:14)
--- NOTE | 2017-06-18 14:33 | Hospitalist Progress Note ---
Hospitalist Progress Note Date of Service Jun 18, 2017. Subjective Pt evaluation today including: conversation w/ patient, conversation w/ family , physical exam, lab review, review of studies, review of inpatient medication list Patient resting in bed. Just returned from OR. Alert/oriented x3. Drowsy postop. Denies any complaints. Daughter at bedside- states she is doing well postop. Daughter is agreeable for patient going to rehab but does NOT want her returning to [place]. Patient denies any fever, chills, sweats, lightheadedness, dizziness, vision changes, CP, palpitations, edema, SOB, wheezing, cough, abdominal pain, nausea, vomiting, diarrhea, urinary symptoms, melena, numbness/tingling, weakness, muscle/joint pain, anxiety/depression, active bleeding, or new skin discoloration/changes. Medications Current Inpatient Medications Medications (Trade) Dose Ordered Sig/Haja Route Start Time Stop Time Status Last Admin Dose Admin Heparin Sodium (Porcine) (Heparin Sq 5000 Unit/0.5ml) 5,000 unit Q8H SQ 06/11/17 06:00 07/11/17 05:59 06/18/17 05:49 5,000 UNIT Acetaminophen (Tylenol Tab) 650 mg Q4H PRN PO 06/11/17 01:00 07/11/17 00:59 Al Hydrox/Mg Hydrox/Simethicone (Maalox Max Susp) 15 ml Q4H PRN PO 06/11/17 01:00 07/11/17 00:59 Magnesium Hydroxide (Milk Of Magnesia Susp) 30 ml Q12H PRN PO 06/11/17 01:00 07/11/17 00:59 Ondansetron HCl (Zofran Inj) 4 mg Q6H PRN IV 06/11/17 01:00 07/11/17 00:59 06/17/17 16:24 4 MG Nitroglycerin (Nitrostat Tab) 0.4 mg UD PRN SL 06/11/17 01:00 07/11/17 00:59 Nitroglycerin (Nitroglycerin 2% Oint) 1 inch Q6H EXT 06/11/17 03:30 07/11/17 03:29 06/18/17 02:52 1 INCH Morphine Sulfate (MoRPHine SULFATE INJ) 2 mg Q30M PRN IV 06/11/17 01:00 06/25/17 00:59 Polyethylene (Miralax Powder Packet) 17 gm DAILY PRN PO 06/11/17 01:00 07/11/17 00:59 Alprazolam (Xanax Tab) 0.5 mg HS PO 06/11/17 21:00 07/11/17 20:59 06/17/17 20:38 0.5 MG Aspirin (Ecotrin Tab) 81 mg QAM PO 06/11/17 09:00 07/11/17 08:59 06/18/17 07:54 81 MG EZETIMIBE (Zetia Tab) 10 mg QAM PO 06/11/17 09:00 07/11/17 08:59 06/18/17 07:56 10 MG Hydralazine HCl (Apresoline Tab) 100 mg TID PO 06/11/17 09:00 07/11/17 08:59 06/18/17 07:55 100 MG Insulin Glargine (Lantus Solostar Pen) 16 units QPM SC 06/11/17 21:00 07/11/17 20:59 06/17/17 20:58 16 UNITS Isosorbide Mononitrate (Imdur Ext Rel Tab) 60 mg BID PO 06/11/17 09:00 07/11/17 08:59 06/18/17 07:54 60 MG Labetalol HCl (Normodyne Tab) 200 mg BID PO 06/11/17 09:00 07/11/17 08:59 06/18/17 07:56 200 MG Quetiapine Fumarate (seroQUEL TAB) 25 mg HS PO 06/11/17 21:00 07/11/17 20:59 06/17/17 20:49 25 MG Miscellaneous Information (Order Awaiting Action) 1 ea QS N/A 06/11/17 08:00 07/11/17 07:59 Miscellaneous Information (Order Awaiting Action) 1 ea QS N/A 06/11/17 08:00 07/11/17 07:59 Glucose (Glucose 40% Gel) 15-30 GRAMS 15 GRAMS... UD PRN PO 06/11/17 03:45 07/11/17 03:44 Glucose (Glucose Chew Tab) 4-8 Tablets 4 Tabl... UD PRN PO 06/11/17 03:45 07/11/17 03:44 Dextrose (Dextrose 50% 50ML Syringe) 25-50ML OF 50% DW IV FOR... UD PRN IV 06/11/17 03:45 07/11/17 03:44 Glucagon (Glucagon Inj) 1 mg UD PRN SQ 06/11/17 03:45 07/11/17 03:44 Felodipine (Plendil Tabcr) 10 mg HS PO 06/11/17 21:00 07/11/17 20:59 06/17/17 20:41 10 MG Enteral Nutritional Formula (Boost Glucose Control) 1 can BIDM PO 06/12/17 08:00 07/12/17 07:59 06/17/17 08:37 1 CAN Iron Sucrose 200 mg/Sodium Chloride 110 ml @ 420 mls/hr Q2D@0900 IV 06/12/17 09:00 06/20/17 09:16 06/16/17 08:51 420 MLS/HR Guaifenesin/ Dextromethorphan (Robitussin-Dm Syrup) 5 ml Q6H PRN PO 06/12/17 10:45 07/12/17 10:44 06/17/17 08:36 5 ML Fluconazole (Diflucan Tab) 100 mg QAM PO 06/12/17 16:00 07/12/17 15:59 06/18/17 07:55 100 MG Lactobacillus Acidophilus (Floranex Tab) 4 tab TIDM PO 06/13/17 08:00 07/13/17 07:59 06/17/17 13:07 4 TAB Furosemide 80 mg/ Syringe 8 ml @ 4 mls/min BID17 IV 06/13/17 21:00 07/13/17 20:59 06/17/17 16:25 4 MLS/MIN Metolazone (Zaroxolyn Tab) 5 mg DAILY@0830 PO 06/15/17 16:30 07/15/17 16:29 06/18/17 07:57 5 MG Albuterol/ Ipratropium (Duoneb) 3 ml QIDR INH 06/15/17 12:00 07/15/17 11:59 06/17/17 15:28 3 ML Cefazolin Sodium 7.5 ml @ 1.667 mls/ min PREOP IV 06/18/17 06:00 06/18/17 18:00 06/18/17 10:19 1.667 MLS/MIN Insulin Aspart (novoLOG ASPART) SLIDING SCALE G... Q6 SC 06/18/17 12:00 07/18/17 11:59 Fentanyl Citrate (Fentanyl Inj) 25 mcg Q5M PRN IV 06/18/17 11:15 06/18/17 16:00 Ondansetron HCl (Zofran Inj) 4 mg ONE PRN IV 06/18/17 11:15 06/18/17 16:00 Ephedrine Sulfate (EpHEDrine SULFATE INJ) 5 mg Q5M PRN IV 06/18/17 11:15 06/18/17 16:00 Atropine Sulfate (Atropine Sulfate 0.1mg/ml Inj) 0.5 mg Q1M PRN IV 06/18/17 11:15 06/18/17 16:00 Oxycodone/ Acetaminophen (Percocet 5-325mg Tab) 1 tab Q4H PRN PO 06/18/17 12:00 07/02/17 11:59 Objective Vital Signs Date Time Temp Pulse Resp B/P (MAP) Pulse Ox O2 Delivery O2 Flow Rate FiO2 06/18/17 12:40 60 20 06/18/17 12:40 60 20 96 06/18/17 12:36 129/55 06/18/17 12:35 60 11 06/18/17 12:35 60 11 96 06/18/17 12:32 132/56 06/18/17 12:30 60 13 06/18/17 12:30 60 13 96 06/18/17 12:27 36.3 60 16 132/56 (67) 96 Nasal Cannula 2 06/18/17 12:26 145/56 06/18/17 12:25 60 15 06/18/17 12:25 60 15 96 06/18/17 12:24 60 13 96 06/18/17 12:24 60 13 06/18/17 12:21 113/60 06/18/17 12:19 60 16 96 06/18/17 12:19 60 16 06/18/17 12:18 60 16 97 06/18/17 12:18 60 16 06/18/17 12:17 138/55 06/18/17 12:13 60 9 126/56 100 06/18/17 12:13 60 9 06/18/17 12:08 60 19 06/18/17 12:08 60 19 97 06/18/17 12:06 126/59 06/18/17 12:03 60 12 06/18/17 12:03 60 12 99 06/18/17 12:01 124/49 06/18/17 11:59 123/54 06/18/17 11:58 35.8 60 12 123/54 (69) 99 Oxymask 10 06/18/17 11:58 61 52 06/18/17 11:58 61 52 99 06/18/17 08:00 Room Air 06/18/17 07:55 36.5 60 20 138/72 (94) 93 Nasal Cannula 2.0 06/18/17 00:00 Nasal Cannula 2.0 06/17/17 23:32 36.6 61 16 140/58 (85) 92 Nasal Cannula 2.0 06/17/17 19:00 Nasal Cannula 2.0 06/17/17 16:15 Nasal Cannula 2.0 06/17/17 15:30 60 16 94 Room Air 06/17/17 14:23 36.6 60 18 151/66 (94) 92 Physical Exam General Appearance: no apparent distress, + obese, + pertinent finding (O2 NC ) Eyes: normal inspection, PERRL ENT: hearing grossly normal Neck: supple Respiratory/Chest: lungs clear, no respiratory distress, no accessory muscle use Cardiovascular: regular rate, rhythm Abdomen: normal bowel sounds, non tender, soft Extremities: no calf tenderness, + swelling (+1 pitting edema to bilateral lower extremities ) Neurologic/Psychiatric: alert, oriented x 3, + pertinent finding (drowsy ) Skin: normal color, warm/dry, no rash Laboratory Results Last 24 Hours Test 06/17/17 17:02 06/17/17 20:20 06/18/17 05:52 06/18/17 07:40 Bedside Glucose 141 mg/dl 168 mg/dl 93 mg/dl Sodium Level 132 mmol/L Potassium Level 4.5 mmol/L Chloride Level 101 mmol/L Carbon Dioxide Level 24 mmol/L Anion Gap 7.0 mmol/L Blood Urea Nitrogen 79 mg/dl Creatinine 4.31 mg/dl Est Creatinine Clear Calc Drug Dose 8.6 ml/min Estimated GFR () 10.3 Estimated GFR (Non- 8.9 BUN/Creatinine Ratio 18.3 Random Glucose 90 mg/dl Calcium Level 8.4 mg/dl Phosphorus Level 4.9 mg/dl Albumin 2.1 gm/dl Test 06/18/17 12:22 06/18/17 13:08 Bedside Glucose 103 mg/dl 102 mg/dl Assessment and Plan 82 y/o F Hx CKD IV, CAD, HTN, HPL, anemia, DM II, chronic diastolic CHF, 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 Recent admissions for UTI, ARF, Cdiff. Admitted 05/19 with PNM and medication-induced agranulocytosis/neutropenia 05/19, DCd 05/26 to a rehab facility. [facility] with a persistent productive cough, SOB, nausea, weakness and a poor appetite. She denies CP, vomiting or dysuria. She is afebrile on arrival. Her initial SBP was over 200. She is mildly hypoxic. A CXR is consistent with vascular congestion but could not r/o superimposed PNM. SOB secondary to acute on chronic diastolic CHF exacerbation: - IV Lasix 80 mg BID and Metolazone 5 mg BID - Monitor I&Os and daily- negative 830 mL - ECHO 04/05/17 reviewed - CXR on 06/14: Persistent bilateral pleural effusions with bibasilar airspace opacities likely atelectatic- encourage incentive spirometry Bronchitis: - O2 protocol - DuoNeb QID and PRN for SOB/wheezing - Speech therapy consulted- no evidence of aspiration - No abx, no leukocytosis, and afebrile Abnormal UA: UCx w/ yeast- Diflucan 100 mg daily x7 days- last day of treatment 06/19 Weakness and poor appetite, severe protein malnutrition - Boost BID - Probiotic added GUSTAVO on CKD IV: - Consult nephrology, appreciate recommendations- planning for inpatient dialysis prior to discharge - Vascular surgery consulted- s/p AVF creation and PermCath insertion on 06/[address] Montemayor - OBINNA to setup outpatient dialysis Anemia: - s/p 1 U PRBCs on 06/14 - Epogen 73129 units given on 06/12/2017 and JUAN PABLO being treated with Venofer as per Nephrology - Follow H&H- transfuse PRN for hgb <7.0-8.0 CAD, HLD- STABLE: - Cont ASA 81 mg daily, Labetalol 200 mg BID, Imdur 60 mg BID, Felodipine 5 mg PO HS - STATIN INTOLERANT- continue Zetia HTN- STABLE: - Hydralazine 100 mg TID, Imdur 60 mg BID, Labetalol 200 mg BID - IV diuretics as above T2DM- CONTROLLED: Lantus 16 u HS, BSG ACHS and ISS Insomnia: Continue Xanax 0.5 mg HS and Seroquel 25 mg HS DVT prophylaxis: Heparin SQ TID Code status: LEVEL I, FULL Dispo: From [place], will need rehab at discharge- per daughter, does not want to return there- PT/OT and CM following
[2017-06-18] MEDS: FELODIPINE 5 MG TABCR PO SCH (20:04)
[2017-06-18] MEDS: INSULIN ASPART 100 UNITS/ML 3 ML PEN SC SCH (20:13)
[2017-06-18] MEDS: QUETIAPINE FUMARATE 25 MG TAB PO SCH (21:09)
[2017-06-18] MEDS: ALPRAZOLAM 0.5 MG TAB PO SCH (21:09)
[2017-06-18] MEDS: INSULIN GLARGINE SOLOSTAR 100 UNITS/ML 3 ML PEN SC SCH (21:10)
[2017-06-18] MEDS: GUAIFENESIN/DEXTROM SYRUP 100MG/10MG 5ML UDC PO PRN (21:55)
[2017-06-19] VITALS (20 sets, daily range): BP systolic 128–163; BP diastolic 49–66; PULSE 59–63; TEMP 36.3–36.6; O2SAT 96–98; Ht 147.3 cm; Wt 64.6 kg
[2017-06-19] MEDS: NITROGLYCERIN 2% OINTMENT 30GM TUBE EXT SCH (03:08)
[2017-06-19] MEDS: HEPARIN SOD 5000 UNIT/0.5 ML CARP SQ SCH ×3 (05:41→21:02)
[2017-06-19 06:40] LABS: CREATININE 4.5 mg/dl (0.60-1.20)
[2017-06-19 06:41] LABS: ALBUMIN 2.1 gm/dl (3.4-5.0); CALCIUM 8.1 mg/dl (8.5-10.1); PHOSPHORUS 5.9 mg/dl (2.5-4.9); POTASSIUM 4.7 mmol/L (3.5-5.1)
[2017-06-19] MEDS: ALBUT/IPRATROP 3MG/0.5MG NEB 3 ML VIAL INH SCH ×2 (07:20→11:15)
[2017-06-19] MEDS: FLUCONAZOLE 100 MG TAB PO SCH (07:55)
[2017-06-19] MEDS: ASPIRIN 81 MG ECTAB PO SCH (07:55)
[2017-06-19] MEDS: METOLAZONE 5 MG TAB PO SCH (07:56)
[2017-06-19] MEDS: OXYCODONE/ACETAMINOPHEN 5-325 TAB PO PRN (07:56)
[2017-06-19] MEDS: GUAIFENESIN/DEXTROM SYRUP 100MG/10MG 5ML UDC PO PRN (07:56)
[2017-06-19] MEDS: LACTOBACILLUS ACIDOPHILUS (FLORANEX) TAB PO SCH ×3 (07:57→17:30)
[2017-06-19] MEDS: EZETIMIBE 10MG TAB PO SCH (07:57)
[2017-06-19] MEDS: INSULIN ASPART 100 UNITS/ML 3 ML PEN SC SCH ×4 (07:57→21:03)
--- NOTE | 2017-06-19 08:09 | Anesthesiology Progress Note ---
Anesthesia Post Op Note Date & Time Jun 19, 2017 at 08:08 Vital Signs Pain Intensity: 5 Vital Signs Past 12 Hours Date Time Temp Pulse Resp B/P (MAP) Pulse Ox O2 Delivery O2 Flow Rate FiO2 06/19/17 07:20 63 16 96 Nasal Cannula 2.0 06/19/17 02:00 36.3 06/19/17 00:00 36.5 06/19/17 00:00 96 Nasal Cannula 2.0 06/18/17 23:05 36.4 60 20 133/64 (87) 96 Nasal Cannula 2.0 Notes Mental Status: alert / awake / arousable Pt Amnestic to Procedure: Yes Nausea / Vomiting: adequately controlled Pain: see Notes Airway Patency, RR, SpO2: stable & adequate BP & HR: stable & adequate Hydration State: stable & adequate pt complaining of pain in neck. pt has some swelling around surgical site and up the right side of her neck. She denies any difficulty breathing. There is no redness with swelling. it is not warm to touch.
[2017-06-19] MEDS: BOOST GLUCOSE CONTROL PO SCH ×2 (08:59→17:29)
[2017-06-19] MEDS: FUROSEMIDE INJ 80 MG in SYRINGE 0 ML IV SCH ×2 (08:59→17:48)
--- NOTE | 2017-06-19 10:15 | Nephrology Progress Note ---
Nephrology Progress Note Date of Service Jun 19, 2017. Chief Complaint CKD Subjective No acute events overnight. Nava was seen and evaluated during hemodialysis this morning. She is tolerating the treatment well. Adequate Qb via TDC. BP acceptable. Nava tolerated catheter and AVF placement well yesterday. She reports some mild fatigue but overall feels well. Review of Systems A complete review of systems was performed. Pertinent positives are noted above. All other systems are negative. Vital Signs Last 8 Hrs Date Time Temp Pulse Resp B/P (MAP) Pulse Ox O2 Delivery O2 Flow Rate FiO2 06/19/17 09:16 36.5 62 17 128/61 (83) 96 Nasal Cannula 2.0 06/19/17 07:20 63 16 96 Nasal Cannula 2.0 Last Recorded Weight Weight (Kilograms): 77.000 Physical Exam General Appearance: WD/WN, no apparent distress, + pertinent finding (elderly frail) Head: normocephalic, atraumatic Eyes: normal inspection, sclerae normal ENT: normal ENT inspection, pharynx normal Neck: supple, no JVD Respiratory/Chest: lungs clear, no respiratory distress, no accessory muscle use Cardiovascular: regular rate, rhythm, no murmur Abdomen/GI: non tender, soft Extremities/Musculoskelatal: normal inspection, no pedal edema Neurologic/Psych: alert, normal mood/affect Family History No pertinent family history Social History Smoking Status: Never smoker Drug Use: none Marital Status: Housing Status: lives with family Occupation: retired Laboratory Results Past 24 Hours 06/19/17 05:13 Test 06/18/17 12:22 06/18/17 13:08 06/18/17 16:47 06/18/17 16:57 Bedside Glucose 103 mg/dl (70-90) 102 mg/dl (70-90) 114 mg/dl (70-90) Test 06/18/17 20:10 06/19/17 05:13 06/19/17 07:49 06/19/17 08:25 Bedside Glucose 141 mg/dl (70-90) 60 mg/dl (70-90) 118 mg/dl (70-90) Anion Gap 9.0 mmol/L (3-11) Est Creatinine Clear Calc Drug Dose 8.3 ml/min Estimated GFR () 9.8 Estimated GFR (Non- 8.4 BUN/Creatinine Ratio 18.7 (10-20) Calcium Level 8.1 mg/dl (8.5-10.1) Phosphorus Level 5.9 mg/dl (2.5-4.9) Albumin 2.1 gm/dl (3.4-5.0) Allergies Coded Allergies: Carbamazepine (Verified Allergy, Intermediate, RASH, 06/10/17) Erythromycin (Verified Allergy, Intermediate, RASH, 06/10/17) Carvedilol (Verified Adverse Reaction, Intermediate, DIZZINESS, VISUAL DISTURBANCES, 06/10/17) Statins (Verified Adverse Reaction, Intermediate, MUSCLE ACHES, 06/10/17) Medications Current Inpatient Medications Medications (Trade) Dose Ordered Sig/Haja Route Start Time Stop Time Status Last Admin Dose Admin Heparin Sodium (Porcine) (Heparin Sq 5000 Unit/0.5ml) 5,000 unit Q8H SQ 06/11/17 06:00 07/11/17 05:59 06/19/17 05:41 5,000 UNIT Acetaminophen (Tylenol Tab) 650 mg Q4H PRN PO 06/11/17 01:00 07/11/17 00:59 Al Hydrox/Mg Hydrox/Simethicone (Maalox Max Susp) 15 ml Q4H PRN PO 06/11/17 01:00 07/11/17 00:59 Magnesium Hydroxide (Milk Of Magnesia Susp) 30 ml Q12H PRN PO 06/11/17 01:00 07/11/17 00:59 Ondansetron HCl (Zofran Inj) 4 mg Q6H PRN IV 06/11/17 01:00 07/11/17 00:59 06/17/17 16:24 4 MG Nitroglycerin (Nitrostat Tab) 0.4 mg UD PRN SL 06/11/17 01:00 07/11/17 00:59 Nitroglycerin (Nitroglycerin 2% Oint) 1 inch Q6H EXT 06/11/17 03:30 07/11/17 03:29 06/19/17 03:08 1 INCH Morphine Sulfate (MoRPHine SULFATE INJ) 2 mg Q30M PRN IV 06/11/17 01:00 06/25/17 00:59 Polyethylene (Miralax Powder Packet) 17 gm DAILY PRN PO 06/11/17 01:00 07/11/17 00:59 Alprazolam (Xanax Tab) 0.5 mg HS PO 06/11/17 21:00 07/11/17 20:59 06/18/17 21:09 0.5 MG Aspirin (Ecotrin Tab) 81 mg QAM PO 06/11/17 09:00 07/11/17 08:59 06/19/17 07:55 81 MG EZETIMIBE (Zetia Tab) 10 mg QAM PO 06/11/17 09:00 07/11/17 08:59 06/19/17 07:57 10 MG Hydralazine HCl (Apresoline Tab) 100 mg TID PO 06/11/17 09:00 07/11/17 08:59 06/18/17 20:05 100 MG Insulin Glargine (Lantus Solostar Pen) 16 units QPM SC 06/11/17 21:00 07/11/17 20:59 06/18/17 21:10 16 UNITS Isosorbide Mononitrate (Imdur Ext Rel Tab) 60 mg BID PO 06/11/17 09:00 07/11/17 08:59 06/18/17 20:04 60 MG Labetalol HCl (Normodyne Tab) 200 mg BID PO 06/11/17 09:00 07/11/17 08:59 06/18/17 20:04 200 MG Quetiapine Fumarate (seroQUEL TAB) 25 mg HS PO 06/11/17 21:00 07/11/17 20:59 06/18/17 21:09 25 MG Miscellaneous Information (Order Awaiting Action) 1 ea QS N/A 06/11/17 08:00 07/11/17 07:59 Miscellaneous Information (Order Awaiting Action) 1 ea QS N/A 06/11/17 08:00 07/11/17 07:59 Glucose (Glucose 40% Gel) 15-30 GRAMS 15 GRAMS... UD PRN PO 06/11/17 03:45 07/11/17 03:44 Glucose (Glucose Chew Tab) 4-8 Tablets 4 Tabl... UD PRN PO 06/11/17 03:45 07/11/17 03:44 Dextrose (Dextrose 50% 50ML Syringe) 25-50ML OF 50% DW IV FOR... UD PRN IV 06/11/17 03:45 07/11/17 03:44 Glucagon (Glucagon Inj) 1 mg UD PRN SQ 06/11/17 03:45 07/11/17 03:44 Felodipine (Plendil Tabcr) 10 mg HS PO 06/11/17 21:00 07/11/17 20:59 06/18/17 20:04 10 MG Enteral Nutritional Formula (Boost Glucose Control) 1 can BIDM PO 06/12/17 08:00 07/12/17 07:59 06/19/17 08:59 1 CAN Iron Sucrose 200 mg/Sodium Chloride 110 ml @ 420 mls/hr Q2D@0900 IV 06/12/17 09:00 06/20/17 09:16 06/18/17 14:14 420 MLS/HR Guaifenesin/ Dextromethorphan (Robitussin-Dm Syrup) 5 ml Q6H PRN PO 06/12/17 10:45 07/12/17 10:44 06/19/17 07:56 5 ML Fluconazole (Diflucan Tab) 100 mg QAM PO 06/12/17 16:00 07/12/17 15:59 06/19/17 07:55 100 MG Lactobacillus Acidophilus (Floranex Tab) 4 tab TIDM PO 06/13/17 08:00 07/13/17 07:59 06/19/17 07:57 4 TAB Furosemide 80 mg/ Syringe 8 ml @ 4 mls/min BID17 IV 06/13/17 21:00 07/13/17 20:59 06/19/17 08:59 4 MLS/MIN Metolazone (Zaroxolyn Tab) 5 mg DAILY@0830 PO 06/15/17 16:30 07/15/17 16:29 06/19/17 07:56 5 MG Albuterol/ Ipratropium (Duoneb) 3 ml QIDR INH 06/15/17 12:00 07/15/17 11:59 06/19/17 07:20 3 ML Oxycodone/ Acetaminophen (Percocet 5-325mg Tab) 1 tab Q4H PRN PO 06/18/17 12:00 07/02/17 11:59 06/19/17 07:56 1 TAB Insulin Aspart (novoLOG ASPART) SLIDING SCALE G... ACHS SC 06/18/17 21:00 4/11/18 20:59 Impression (1) Acute renal insufficiency (2) Chronic kidney disease (3) CHF exacerbation (4) Weakness Nava is a 82-year-old female with advanced CKD, hypertension, diabetes, CHF and a history of coronary artery disease status post CABG. She was admitted to the hospital with CHF exacerbation, pleural effusion and hypertensive urgency. 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 We have discussed the advanced nature of her renal dysfunction in detail. R AC brachiocephalic AVF placed by Dr. Montemayor 06/19/17. TDC placed . The patient is receiving her first dialysis treatment today. Case management has initiated intake for [facility] with plans for dialysis three days weekly at the [facility] unit under the care of Dr. Noyola at discharge. Recommendations Anemia -- Epogen 38722 units given on 06/12/2017 -- JUAN PABLO being treated with venofer CKD/ESRD: -- BC aVF placed 06/18/[address] Montemayor -- TDC placed 06/18/17 -- First HD treatment today -- Case management has started intake process for outpatient dialysis, noted that hepatitis B was sent this AM Hypertension: -- Acceptable control CHF: -- DC metolazone
[2017-06-19] MEDS ORDERED: ALBUT/IPRATROP 3MG/0.5MG NEB 3 ML VIAL INH PRN (12:30)
[2017-06-19] MEDS: LABETALOL HCL 200 MG TAB PO SCH ×2 (13:12→20:10)
[2017-06-19] MEDS: ISOSORBIDE MONONITRATE 60 MG TABCR PO SCH ×2 (13:12→20:10)
--- NOTE | 2017-06-19 13:29 | Hospitalist Progress Note ---
Hospitalist Progress Note Date of Service Jun 19, 2017. Subjective Pt evaluation today including: conversation w/ patient, physical exam, lab review, review of inpatient medication list Voiding: no voiding problems Saw patient during dialysis. Feeling well. Eating and drinking OK. Tolerating dialysis well. Patient denies any fever, chills, sweats, lightheadedness, dizziness, vision changes, CP, palpitations, edema, SOB, wheezing, cough, abdominal pain, nausea, vomiting, diarrhea, urinary symptoms, melena, numbness/tingling, weakness, muscle/joint pain, anxiety/depression, active bleeding, or new skin discoloration/changes. Medications Current Inpatient Medications Medications (Trade) Dose Ordered Sig/Haja Route Start Time Stop Time Status Last Admin Dose Admin Heparin Sodium (Porcine) (Heparin Sq 5000 Unit/0.5ml) 5,000 unit Q8H SQ 06/11/17 06:00 07/11/17 05:59 06/19/17 13:12 5,000 UNIT Acetaminophen (Tylenol Tab) 650 mg Q4H PRN PO 06/11/17 01:00 07/11/17 00:59 Al Hydrox/Mg Hydrox/Simethicone (Maalox Max Susp) 15 ml Q4H PRN PO 06/11/17 01:00 07/11/17 00:59 Magnesium Hydroxide (Milk Of Magnesia Susp) 30 ml Q12H PRN PO 06/11/17 01:00 07/11/17 00:59 Ondansetron HCl (Zofran Inj) 4 mg Q6H PRN IV 06/11/17 01:00 07/11/17 00:59 06/17/17 16:24 4 MG Nitroglycerin (Nitrostat Tab) 0.4 mg UD PRN SL 06/11/17 01:00 07/11/17 00:59 Morphine Sulfate (MoRPHine SULFATE INJ) 2 mg Q30M PRN IV 06/11/17 01:00 06/25/17 00:59 Polyethylene (Miralax Powder Packet) 17 gm DAILY PRN PO 06/11/17 01:00 07/11/17 00:59 Alprazolam (Xanax Tab) 0.5 mg HS PO 06/11/17 21:00 07/11/17 20:59 06/18/17 21:09 0.5 MG Aspirin (Ecotrin Tab) 81 mg QAM PO 06/11/17 09:00 07/11/17 08:59 06/19/17 07:55 81 MG EZETIMIBE (Zetia Tab) 10 mg QAM PO 06/11/17 09:00 07/11/17 08:59 06/19/17 07:57 10 MG Hydralazine HCl (Apresoline Tab) 100 mg TID PO 06/11/17 09:00 07/11/17 08:59 06/19/17 13:13 100 MG Isosorbide Mononitrate (Imdur Ext Rel Tab) 60 mg BID PO 06/11/17 09:00 07/11/17 08:59 06/19/17 13:12 60 MG Labetalol HCl (Normodyne Tab) 200 mg BID PO 06/11/17 09:00 07/11/17 08:59 06/19/17 13:12 200 MG Quetiapine Fumarate (seroQUEL TAB) 25 mg HS PO 06/11/17 21:00 07/11/17 20:59 06/18/17 21:09 25 MG Miscellaneous Information (Order Awaiting Action) 1 ea QS N/A 06/11/17 08:00 07/11/17 07:59 Miscellaneous Information (Order Awaiting Action) 1 ea QS N/A 06/11/17 08:00 07/11/17 07:59 Glucose (Glucose 40% Gel) 15-30 GRAMS 15 GRAMS... UD PRN PO 06/11/17 03:45 07/11/17 03:44 Glucose (Glucose Chew Tab) 4-8 Tablets 4 Tabl... UD PRN PO 06/11/17 03:45 07/11/17 03:44 Dextrose (Dextrose 50% 50ML Syringe) 25-50ML OF 50% DW IV FOR... UD PRN IV 06/11/17 03:45 07/11/17 03:44 Glucagon (Glucagon Inj) 1 mg UD PRN SQ 06/11/17 03:45 07/11/17 03:44 Felodipine (Plendil Tabcr) 10 mg HS PO 06/11/17 21:00 07/11/17 20:59 06/18/17 20:04 10 MG Enteral Nutritional Formula (Boost Glucose Control) 1 can BIDM PO 06/12/17 08:00 07/12/17 07:59 06/19/17 08:59 1 CAN Iron Sucrose 200 mg/Sodium Chloride 110 ml @ 420 mls/hr Q2D@0900 IV 06/12/17 09:00 06/20/17 09:16 06/18/17 14:14 420 MLS/HR Guaifenesin/ Dextromethorphan (Robitussin-Dm Syrup) 5 ml Q6H PRN PO 06/12/17 10:45 07/12/17 10:44 06/19/17 07:56 5 ML Lactobacillus Acidophilus (Floranex Tab) 4 tab TIDM PO 06/13/17 08:00 07/13/17 07:59 06/19/17 13:13 4 TAB Furosemide 80 mg/ Syringe 8 ml @ 4 mls/min BID17 IV 06/13/17 21:00 07/13/17 20:59 06/19/17 08:59 4 MLS/MIN Albuterol/ Ipratropium (Duoneb) 3 ml QIDR INH 06/15/17 12:00 07/15/17 11:59 06/19/17 07:20 3 ML Oxycodone/ Acetaminophen (Percocet 5-325mg Tab) 1 tab Q4H PRN PO 06/18/17 12:00 07/02/17 11:59 06/19/17 07:56 1 TAB Insulin Aspart (novoLOG ASPART) SLIDING SCALE G... ACHS SC 06/18/17 21:00 06/19/17 23:59 Insulin Glargine (Lantus Solostar Pen) 8 units QPM SC 06/19/17 21:00 07/19/17 20:59 Insulin Aspart (novoLOG ASPART) SLIDING SCALE G... ACHS SC 06/20/17 06:30 07/20/17 06:29 Albuterol/ Ipratropium (Duoneb) 3 ml Q4 PRN INH 06/19/17 12:30 07/19/17 12:29 UNV Objective Vital Signs Date Time Temp Pulse Resp B/P (MAP) Pulse Ox O2 Delivery O2 Flow Rate FiO2 06/19/17 13:04 Nasal Cannula 2.0 06/19/17 12:21 36.4 60 163/66 (98) 06/19/17 12:06 60 163/66 06/19/17 12:00 60 148/52 06/19/17 11:45 59 149/52 06/19/17 11:30 60 147/54 06/19/17 11:15 60 150/50 06/19/17 11:00 60 151/58 06/19/17 10:45 60 154/59 06/19/17 10:30 60 149/49 06/19/17 10:15 60 161/60 06/19/17 10:07 60 162/60 06/19/17 10:00 36.5 60 151/57 (88) 06/19/17 09:16 36.5 62 17 128/61 (83) 96 Nasal Cannula 2.0 06/19/17 07:20 63 16 96 Nasal Cannula 2.0 06/19/17 02:00 36.3 06/19/17 00:00 36.5 06/19/17 00:00 96 Nasal Cannula 2.0 06/18/17 23:05 36.4 60 20 133/64 (87) 96 Nasal Cannula 2.0 06/18/17 19:57 36.6 60 158/55 (89) 97 Nasal Cannula 2.0 06/18/17 19:50 63 16 96 Nasal Cannula 2.0 06/18/17 19:12 36.6 06/18/17 18:00 36.6 06/18/17 17:30 36.6 06/18/17 17:00 36.6 06/18/17 16:30 36.6 06/18/17 16:00 36.4 06/18/17 16:00 96 Nasal Cannula 2.0 06/18/17 15:30 36.2 60 20 149/54 (85) 97 Nasal Cannula 2.0 06/18/17 15:16 59 16 97 Nasal Cannula 2.0 06/18/17 15:00 36.2 06/18/17 14:30 36.4 06/18/17 14:00 36.2 60 22 146/69 (94) 96 Nasal Cannula 2.0 06/18/17 13:30 34.8 62 143/69 (93) 96 Nasal Cannula 2.0 Physical Exam General Appearance: no apparent distress, + obese, + pertinent finding (O2 NC ) Eyes: normal inspection, PERRL ENT: hearing grossly normal Neck: supple Respiratory/Chest: lungs clear, no respiratory distress, no accessory muscle use Cardiovascular: regular rate, rhythm Abdomen: normal bowel sounds, non tender, soft Extremities: no calf tenderness, + swelling (+1-2 pitting edema of bilateral lower extremities ) Neurologic/Psychiatric: alert, normal mood/affect, oriented x 3 Skin: normal color, warm/dry, no rash Laboratory Results Last 24 Hours Test 06/18/17 16:47 06/18/17 16:57 06/18/17 20:10 06/19/17 05:13 Bedside Glucose 114 mg/dl 141 mg/dl Sodium Level 132 mmol/L Potassium Level 4.7 mmol/L Chloride Level 101 mmol/L Carbon Dioxide Level 22 mmol/L Anion Gap 9.0 mmol/L Blood Urea Nitrogen 84 mg/dl Creatinine 4.50 mg/dl Est Creatinine Clear Calc Drug Dose 8.3 ml/min Estimated GFR () 9.8 Estimated GFR (Non- 8.4 BUN/Creatinine Ratio 18.7 Random Glucose 66 mg/dl Calcium Level 8.1 mg/dl Phosphorus Level 5.9 mg/dl Albumin 2.1 gm/dl Test 06/19/17 07:49 06/19/17 08:25 06/19/17 12:32 Bedside Glucose 60 mg/dl 118 mg/dl 127 mg/dl Assessment and Plan 82 y/o F Hx CKD IV, CAD, HTN, HPL, anemia, DM II, chronic diastolic CHF, 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 Recent admissions for UTI, ARF, Cdiff. Admitted 05/19 with PNM and medication-induced agranulocytosis/neutropenia 05/19, DCd 05/26 to a rehab facility[facility], SOB, nausea, weakness and a poor appetite. She denies CP, vomiting or dysuria. She is afebrile on arrival. Her initial SBP was over 200. She is mildly hypoxic. A CXR is consistent with vascular congestion but could not r/o superimposed PNM. SOB secondary to acute on chronic diastolic CHF exacerbation: - IV Lasix 80 mg BID and Metolazone 5 mg BID- Metolazone discontinued per nephrology - Monitor I&Os and daily- negative 3.3L - ECHO 12/28/17 reviewed - CXR on 06/14: Persistent bilateral pleural effusions with bibasilar airspace opacities likely atelectatic- encourage incentive spirometry Bronchitis- STABLE: - O2 protocol - DuoNeb PRN for SOB/wheezing - Speech therapy consulted- no evidence of aspiration - No abx, no leukocytosis, and afebrile Abnormal UA: UCx w/ yeast- Diflucan 100 mg daily x7 days- last day of treatment 06/19 Weakness and poor appetite, severe protein malnutrition: - Boost BID - Probiotic added 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 Montemayor - to setup outpatient dialysis - Hepatitis panel pending Anemia: - s/p 1 U PRBCs on 06/14 - Epogen [id number] units given on 06/12/2017 and JUAN PABLO being treated with Venofer as per Nephrology - Follow H&H- transfuse PRN for hgb <7.0-8.0 CAD, HLD- STABLE: - Cont ASA 81 mg daily, Labetalol 200 mg BID, Imdur 60 mg BID, Felodipine 5 mg PO HS - STATIN INTOLERANT- continue Zetia HTN- STABLE: - Hydralazine 100 mg TID, Imdur 60 mg BID, Labetalol 200 mg BID - IV diuretics as above T2DM- CONTROLLED: Lantus 8 u HS, BSG ACHS and ISS Insomnia: Continue Xanax 0.5 mg HS and Seroquel 25 mg HS DVT prophylaxis: Heparin SQ TID Code status: LEVEL I, FULL Dispo: From [facility], will need rehab at discharge- per daughter, does not want to return there- PT/OT and CM following
[2017-06-19] MEDS: ONDANSETRON INJ 2 MG/ML 2 ML VIAL IV PRN (19:16)
[2017-06-19] MEDS: FELODIPINE 5 MG TABCR PO SCH (20:10)
[2017-06-19] MEDS: QUETIAPINE FUMARATE 25 MG TAB PO SCH (20:50)
[2017-06-19] MEDS: ALPRAZOLAM 0.5 MG TAB PO SCH (20:50)
[2017-06-19] MEDS: INSULIN GLARGINE SOLOSTAR 100 UNITS/ML 3 ML PEN SC SCH (21:04)
[2017-06-20] VITALS (21 sets, daily range): BP systolic 142–187; BP diastolic 53–63; PULSE 58–61; TEMP 36.3–36.7; O2SAT 96–100
[2017-06-20] MEDS ORDERED: NURSING VERBAL MED ORDER ONE ×3 (00:15→17:00)
[2017-06-20 05:50] LABS: HEMATOCRIT 25.5 % (37-47); HEMOGLOBIN 8.3 g/dL (12.0-16.0); MEAN CELL VOLUME 90.1 fL (80-100); MEAN CORPUSCULAR HEMOGLOBIN 29.3 pg (25-34); MEAN CORPUSCULAR HGB CONC 32.5 g/dl (32-36); MEAN PLATELET VOLUME 8.6 fL (7.4-10.4); PLATELET COUNT 191 K/uL (130-400); RED CELL DISTRIBUTION WIDTH CV 16.4 % (11.5-14.5); RED CELL DISTRIBUTION WIDTH SD 50.5 fL (36.4-46.3); WHITE BLOOD COUNT 7.56 K/uL (4.8-10.8)
[2017-06-20 06:28] LABS: ALBUMIN 2.2 gm/dl (3.4-5.0); CREATININE 3.76 mg/dl (0.60-1.20); PHOSPHORUS 5.5 mg/dl (2.5-4.9); POTASSIUM 4.4 mmol/L (3.5-5.1)
[2017-06-20] MEDS: LACTOBACILLUS ACIDOPHILUS (FLORANEX) TAB PO SCH ×3 (07:56→17:00)
[2017-06-20] MEDS: GUAIFENESIN/DEXTROM SYRUP 100MG/10MG 5ML UDC PO PRN (07:57)
[2017-06-20] MEDS: EZETIMIBE 10MG TAB PO SCH (07:57)
[2017-06-20] MEDS: FUROSEMIDE INJ 80 MG in SYRINGE 0 ML IV SCH ×2 (07:58→17:26)
[2017-06-20] MEDS: BOOST GLUCOSE CONTROL PO SCH ×2 (07:58→17:00)
[2017-06-20] MEDS ORDERED: MICONAZOLE NITRATE POWDER 43 GM ONE (08:09)
[2017-06-20] MEDS: IRON SUCROSE INJ 200 MG in SODIUM CHLORIDE 0.9% 100ML 100 ML IV SCH (09:30)
[2017-06-20] MEDS: INSULIN ASPART 100 UNITS/ML 3 ML PEN SC SCH ×4 (13:55→20:26)
[2017-06-20] MEDS: LABETALOL HCL 200 MG TAB PO SCH ×2 (14:14→20:22)
[2017-06-20] MEDS: ISOSORBIDE MONONITRATE 60 MG TABCR PO SCH ×2 (14:14→20:23)
--- NOTE | 2017-06-20 14:48 | Hospitalist Progress Note ---
Hospitalist Progress Note Date of Service Jun 20, 2017. Subjective Pt evaluation today including: conversation w/ patient, physical exam, lab review, review of inpatient medication list Voiding: no voiding problems Saw patient during dialysis. Feeling well. Tolerating dialysis without issues. States her appetite has decreased since admission- discussed acute issues likely causing decreased appetite, encouraged adequate intake as tolerated. Zofran PRN available. Patient denies any fever, chills, sweats, lightheadedness, dizziness, vision changes, CP, palpitations, edema, SOB, wheezing, cough, abdominal pain, nausea, vomiting, diarrhea, urinary symptoms, melena, numbness/tingling, weakness, muscle/joint pain, anxiety/depression, active bleeding, or new skin discoloration/changes. Medications Current Inpatient Medications Medications (Trade) Dose Ordered Sig/Haja Route Start Time Stop Time Status Last Admin Dose Admin Heparin Sodium (Porcine) (Heparin Sq 5000 Unit/0.5ml) 5,000 unit Q8H SQ 06/11/17 06:00 07/11/17 05:59 Future Hold 06/19/17 21:02 5,000 UNIT Acetaminophen (Tylenol Tab) 650 mg Q4H PRN PO 06/11/17 01:00 07/11/17 00:59 Al Hydrox/Mg Hydrox/Simethicone (Maalox Max Susp) 15 ml Q4H PRN PO 06/11/17 01:00 07/11/17 00:59 Magnesium Hydroxide (Milk Of Magnesia Susp) 30 ml Q12H PRN PO 06/11/17 01:00 07/11/17 00:59 Ondansetron HCl (Zofran Inj) 4 mg Q6H PRN IV 06/11/17 01:00 07/11/17 00:59 06/19/17 19:16 4 MG Nitroglycerin (Nitrostat Tab) 0.4 mg UD PRN SL 06/11/17 01:00 07/11/17 00:59 Morphine Sulfate (MoRPHine SULFATE INJ) 2 mg Q30M PRN IV 06/11/17 01:00 06/25/17 00:59 Polyethylene (Miralax Powder Packet) 17 gm DAILY PRN PO 06/11/17 01:00 07/11/17 00:59 Alprazolam (Xanax Tab) 0.5 mg HS PO 06/11/17 21:00 07/11/17 20:59 06/19/17 20:50 0.5 MG Aspirin (Ecotrin Tab) 81 mg QAM PO 06/11/17 09:00 07/11/17 08:59 Future Hold 06/19/17 07:55 81 MG EZETIMIBE (Zetia Tab) 10 mg QAM PO 06/11/17 09:00 07/11/17 08:59 06/20/17 07:57 10 MG Hydralazine HCl (Apresoline Tab) 100 mg TID PO 06/11/17 09:00 07/11/17 08:59 06/20/17 14:14 100 MG Isosorbide Mononitrate (Imdur Ext Rel Tab) 60 mg BID PO 06/11/17 09:00 07/11/17 08:59 06/20/17 14:14 60 MG Labetalol HCl (Normodyne Tab) 200 mg BID PO 06/11/17 09:00 07/11/17 08:59 06/20/17 14:14 200 MG Quetiapine Fumarate (seroQUEL TAB) 25 mg HS PO 06/11/17 21:00 07/11/17 20:59 06/19/17 20:50 25 MG Miscellaneous Information (Order Awaiting Action) 1 ea QS N/A 06/11/17 08:00 07/11/17 07:59 Miscellaneous Information (Order Awaiting Action) 1 ea QS N/A 06/11/17 08:00 07/11/17 07:59 Glucose (Glucose 40% Gel) 15-30 GRAMS 15 GRAMS... UD PRN PO 06/11/17 03:45 07/11/17 03:44 Glucose (Glucose Chew Tab) 4-8 Tablets 4 Tabl... UD PRN PO 06/11/17 03:45 07/11/17 03:44 Dextrose (Dextrose 50% 50ML Syringe) 25-50ML OF 50% DW IV FOR... UD PRN IV 06/11/17 03:45 07/11/17 03:44 Glucagon (Glucagon Inj) 1 mg UD PRN SQ 06/11/17 03:45 07/11/17 03:44 Felodipine (Plendil Tabcr) 10 mg HS PO 06/11/17 21:00 07/11/17 20:59 06/19/17 20:10 10 MG Enteral Nutritional Formula (Boost Glucose Control) 1 can BIDM PO 06/12/17 08:00 07/12/17 07:59 06/20/17 07:58 1 CAN Guaifenesin/ Dextromethorphan (Robitussin-Dm Syrup) 5 ml Q6H PRN PO 06/12/17 10:45 07/12/17 10:44 06/20/17 07:57 5 ML Lactobacillus Acidophilus (Floranex Tab) 4 tab TIDM PO 06/13/17 08:00 07/13/17 07:59 06/20/17 14:14 4 TAB Furosemide 80 mg/ Syringe 8 ml @ 4 mls/min BID17 IV 06/13/17 21:00 07/13/17 20:59 06/20/17 07:58 4 MLS/MIN Oxycodone/ Acetaminophen (Percocet 5-325mg Tab) 1 tab Q4H PRN PO 06/18/17 12:00 07/02/17 11:59 06/19/17 07:56 1 TAB Insulin Glargine (Lantus Solostar Pen) 8 units QPM SC 06/19/17 21:00 07/19/17 20:59 06/19/17 21:04 8 UNITS Insulin Aspart (novoLOG ASPART) SLIDING SCALE G... ACHS SC 06/20/17 06:30 07/20/17 06:29 Albuterol/ Ipratropium (Duoneb) 3 ml Q4 PRN INH 06/19/17 12:30 07/19/17 12:29 Objective Vital Signs Date Time Temp Pulse Resp B/P (MAP) Pulse Ox O2 Delivery O2 Flow Rate FiO2 06/20/17 13:52 97 06/20/17 12:53 36.7 60 177/63 (101) 06/20/17 12:15 59 177/63 06/20/17 12:02 59 169/60 06/20/17 11:45 59 163/57 06/20/17 11:30 59 167/56 06/20/17 11:15 59 162/57 06/20/17 11:00 59 160/55 06/20/17 10:45 60 159/54 06/20/17 10:30 60 155/57 06/20/17 10:15 59 147/53 06/20/17 10:00 60 147/58 06/20/17 09:45 59 151/54 06/20/17 09:30 60 147/54 06/20/17 09:15 59 144/55 06/20/17 09:11 36.3 60 143/58 (86) 06/20/17 08:56 Nasal Cannula 2.0 06/20/17 07:21 36.6 58 16 155/53 (87) 100 Nasal Cannula 2.0 06/20/17 00:00 96 Nasal Cannula 2.0 06/19/17 23:19 36.6 60 18 148/54 (85) 98 Nasal Cannula 2.0 06/19/17 20:11 60 156/53 (87) 06/19/17 17:48 60 145/52 (83) 06/19/17 16:00 96 Nasal Cannula 2.0 Physical Exam General Appearance: no apparent distress, + obese, + pertinent finding (O2 NC ) Eyes: normal inspection, PERRL ENT: hearing grossly normal Neck: supple Respiratory/Chest: lungs clear, no respiratory distress, no accessory muscle use Cardiovascular: regular rate, rhythm Abdomen: normal bowel sounds, non tender, soft Extremities: no calf tenderness, + swelling (+1-2 pitting edema of bilateral lower extremities ) Neurologic/Psychiatric: alert, normal mood/affect, oriented x 3 Skin: normal color, warm/dry, no rash Laboratory Results Last 24 Hours Test 06/19/17 16:27 06/19/17 16:34 06/19/17 20:16 06/20/17 05:14 Prealbumin 18.7 mg/dl Bedside Glucose 123 mg/dl 232 mg/dl White Blood Count 7.56 K/uL Red Blood Count 2.83 M/uL Hemoglobin 8.3 g/dL Hematocrit 25.5 % Mean Corpuscular Volume 90.1 fL Mean Corpuscular Hemoglobin 29.3 pg Mean Corpuscular Hemoglobin Concent 32.5 g/dl RDW Standard Deviation 50.5 fL RDW Coefficient of Variation 16.4 % Platelet Count 191 K/uL Mean Platelet Volume 8.6 fL Sodium Level 133 mmol/L Potassium Level 4.4 mmol/L Chloride Level 100 mmol/L Carbon Dioxide Level 23 mmol/L Anion Gap 10.0 mmol/L Blood Urea Nitrogen 63 mg/dl Creatinine 3.76 mg/dl Est Creatinine Clear Calc Drug Dose 10.1 ml/min Estimated GFR () 12.2 Estimated GFR (Non- 10.5 BUN/Creatinine Ratio 16.7 Random Glucose 100 mg/dl Calcium Level 8.0 mg/dl Phosphorus Level 5.5 mg/dl Magnesium Level 2.2 mg/dl Albumin 2.2 gm/dl Test 06/20/17 07:30 06/20/17 12:46 Bedside Glucose 103 mg/dl 144 mg/dl Assessment and Plan 82 y/o F Hx CKD IV, CAD, HTN, HPL, anemia, DM II, chronic diastolic CHF, 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 Recent admissions for UTI, ARF, Cdiff. Admitted 05/19 with PNM and medication-induced agranulocytosis/neutropenia 05/19, DCd 05/26 to a rehab facility[facility] productive cough, SOB, nausea, weakness and a poor appetite. She denies CP, vomiting or dysuria. She is afebrile on arrival. Her initial SBP was over 200. She is mildly hypoxic. A CXR is consistent with vascular congestion but could not r/o superimposed PNM. SOB secondary to acute on chronic diastolic CHF exacerbation- STABLE: - IV Lasix 80 mg BID and Metolazone 5 mg BID- Metolazone discontinued per nephrology - Monitor I&Os and daily- negative 4.9L - ECHO 04/05/17 reviewed - CXR on 06/14: Persistent bilateral pleural effusions with bibasilar airspace opacities likely atelectatic- encourage incentive spirometry Bronchitis- STABLE: - O2 protocol - DuoNeb PRN for SOB/wheezing - Speech therapy consulted- no evidence of aspiration - No abx, no leukocytosis, and afebrile Abnormal UA: UCx w/ yeast- Diflucan 100 mg daily x7 days- completed Weakness and poor appetite, severe protein malnutrition: - Hospital Cleaning Specialist consulted- boost BID - Probiotic added 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 Montemayor - CM to setup outpatient dialysis on MWF - Hepatitis panel pending Anemia: - Hgb 8.3 today- recheck H&H at 1500 today due drop in H&H - s/p 1 U PRBCs on 06/14 - Epogen [id number] units given on 06/12/2017 and JUAN PABLO being treated with Venofer as per Nephrology - Follow H&H- transfuse PRN for hgb <7.0-8.0 CAD, HLD- STABLE: - Cont ASA 81 mg daily, Labetalol 200 mg BID, Imdur 60 mg BID, Felodipine 5 mg PO HS - STATIN INTOLERANT- continue Zetia HTN- STABLE: - Hydralazine 100 mg TID, Imdur 60 mg BID, Labetalol 200 mg BID - IV diuretics as above T2DM- CONTROLLED: Lantus 8 u HS, BSG ACHS and ISS Insomnia: Continue Xanax 0.5 mg HS and Seroquel 25 mg HS DVT prophylaxis: Heparin SQ TID Code status: LEVEL I, FULL Dispo: Hoping for [facility] at discharge- PT/OT and CM following
[2017-06-20] MEDS: ONDANSETRON INJ 2 MG/ML 2 ML VIAL IV PRN ×2 (15:14→21:13)
[2017-06-20 15:33] LABS: HEMATOCRIT 25.5 % (37-47); HEMOGLOBIN 8.4 g/dL (12.0-16.0)
--- NOTE | 2017-06-20 16:35 | Nephrology Progress Note ---
Nephrology Progress Note Date of Service Jun 20, 2017. Chief Complaint CKD Subjective Nava was seen and evaluated during hemodialysis this morning. No acute events overnight. She tolerated hemodialysis well yesterday. She is breathing comfortably. Some bleeding noted from catheter site which has improved. Nava denies significant pain. She is waiting to hear back from [facility]. Review of Systems A complete review of systems was performed. Pertinent positives are noted above. All other systems are negative. Vital Signs Last 8 Hrs Date Time Temp Pulse Resp B/P (MAP) Pulse Ox O2 Delivery O2 Flow Rate FiO2 06/20/17 15:29 36.6 60 18 148/63 (91) 98 Nasal Cannula 2.0 06/20/17 13:52 97 06/20/17 12:53 36.7 60 177/63 (101) 06/20/17 12:15 59 177/63 06/20/17 12:02 59 169/60 06/20/17 11:45 59 163/57 06/20/17 11:30 59 167/56 06/20/17 11:15 59 162/57 06/20/17 11:00 59 160/55 06/20/17 10:45 60 159/54 06/20/17 10:30 60 155/57 06/20/17 10:15 59 147/53 06/20/17 10:00 60 147/58 06/20/17 09:45 59 151/54 06/20/17 09:30 60 147/54 06/20/17 09:15 59 144/55 06/20/17 09:11 36.3 60 143/58 (86) 06/20/17 08:56 Nasal Cannula 2.0 I & O 24-Hour Column 06/21/17 08:00 Intake Total 120 ml Output Total 1350 ml Balance -1230 ml Last Recorded Weight Weight (Kilograms): 76.500 Physical Exam General Appearance: no apparent distress, + obese Head: normocephalic, atraumatic Eyes: normal inspection, sclerae normal ENT: normal ENT inspection, pharynx normal Neck: supple, no JVD, + pertinent finding ([facility] TDC) Respiratory/Chest: lungs clear, no respiratory distress, no accessory muscle use Cardiovascular: regular rate, rhythm, no gallop Abdomen/GI: non tender, soft Extremities/Musculoskelatal: normal inspection, no pedal edema, + pertinent finding (AVF with dressing CDI) Neurologic/Psych: alert, normal mood/affect Family History No pertinent family history Social History Smoking Status: Never smoker Drug Use: none Marital Status: Housing Status: lives with family Occupation: retired Laboratory Results Past 24 Hours 06/20/17 05:14 06/20/17 15:17 06/20/17 05:14 Test 06/19/17 16:34 06/19/17 20:16 06/20/17 05:14 06/20/17 07:30 Bedside Glucose 123 mg/dl (70-90) 232 mg/dl (70-90) 103 mg/dl (70-90) Red Blood Count 2.83 M/uL (4.2-5.4) Mean Corpuscular Volume 90.1 fL (80-100) Mean Corpuscular Hemoglobin 29.3 pg (25-34) Mean Corpuscular Hemoglobin Concent 32.5 g/dl (32-36) RDW Standard Deviation 50.5 fL (36.4-46.3) RDW Coefficient of Variation 16.4 % (11.5-14.5) Mean Platelet Volume 8.6 fL (7.4-10.4) Anion Gap 10.0 mmol/L (3-11) Est Creatinine Clear Calc Drug Dose 10.1 ml/min Estimated GFR () 12.2 Estimated GFR (Non- 10.5 BUN/Creatinine Ratio 16.7 (10-20) Calcium Level 8.0 mg/dl (8.5-10.1) Phosphorus Level 5.5 mg/dl (2.5-4.9) Magnesium Level 2.2 mg/dl (1.8-2.4) Albumin 2.2 gm/dl (3.4-5.0) Test 06/20/17 12:46 Bedside Glucose 144 mg/dl (70-90) Allergies Coded Allergies: Carbamazepine (Verified Allergy, Intermediate, RASH, 06/10/17) Erythromycin (Verified Allergy, Intermediate, RASH, 06/10/17) Carvedilol (Verified Adverse Reaction, Intermediate, DIZZINESS, VISUAL DISTURBANCES, 06/10/17) Statins (Verified Adverse Reaction, Intermediate, MUSCLE ACHES, 06/10/17) Medications Current Inpatient Medications Medications (Trade) Dose Ordered Sig/Haja Route Start Time Stop Time Status Last Admin Dose Admin Heparin Sodium (Porcine) (Heparin Sq 5000 Unit/0.5ml) 5,000 unit Q8H SQ 06/11/17 06:00 07/11/17 05:59 Future Hold 06/19/17 21:02 5,000 UNIT Acetaminophen (Tylenol Tab) 650 mg Q4H PRN PO 06/11/17 01:00 07/11/17 00:59 Al Hydrox/Mg Hydrox/Simethicone (Maalox Max Susp) 15 ml Q4H PRN PO 06/11/17 01:00 07/11/17 00:59 Magnesium Hydroxide (Milk Of Magnesia Susp) 30 ml Q12H PRN PO 06/11/17 01:00 07/11/17 00:59 Ondansetron HCl (Zofran Inj) 4 mg Q6H PRN IV 06/11/17 01:00 07/11/17 00:59 06/20/17 15:14 4 MG Nitroglycerin (Nitrostat Tab) 0.4 mg UD PRN SL 06/11/17 01:00 07/11/17 00:59 Morphine Sulfate (MoRPHine SULFATE INJ) 2 mg Q30M PRN IV 06/11/17 01:00 06/25/17 00:59 Polyethylene (Miralax Powder Packet) 17 gm DAILY PRN PO 06/11/17 01:00 07/11/17 00:59 Alprazolam (Xanax Tab) 0.5 mg HS PO 06/11/17 21:00 07/11/17 20:59 06/19/17 20:50 0.5 MG Aspirin (Ecotrin Tab) 81 mg QAM PO 06/11/17 09:00 07/11/17 08:59 Future Hold 06/19/17 07:55 81 MG EZETIMIBE (Zetia Tab) 10 mg QAM PO 06/11/17 09:00 07/11/17 08:59 06/20/17 07:57 10 MG Hydralazine HCl (Apresoline Tab) 100 mg TID PO 06/11/17 09:00 07/11/17 08:59 06/20/17 14:14 100 MG Isosorbide Mononitrate (Imdur Ext Rel Tab) 60 mg BID PO 06/11/17 09:00 4/4/18 08:59 06/20/17 14:14 60 MG Labetalol HCl (Normodyne Tab) 200 mg BID PO 06/11/17 09:00 07/11/17 08:59 06/20/17 14:14 200 MG Quetiapine Fumarate (seroQUEL TAB) 25 mg HS PO 06/11/17 21:00 07/11/17 20:59 06/19/17 20:50 25 MG Miscellaneous Information (Order Awaiting Action) 1 ea QS N/A 06/11/17 08:00 07/11/17 07:59 Miscellaneous Information (Order Awaiting Action) 1 ea QS N/A 06/11/17 08:00 07/11/17 07:59 Glucose (Glucose 40% Gel) 15-30 GRAMS 15 GRAMS... UD PRN PO 06/11/17 03:45 07/11/17 03:44 Glucose (Glucose Chew Tab) 4-8 Tablets 4 Tabl... UD PRN PO 06/11/17 03:45 07/11/17 03:44 Dextrose (Dextrose 50% 50ML Syringe) 25-50ML OF 50% DW IV FOR... UD PRN IV 06/11/17 03:45 07/11/17 03:44 Glucagon (Glucagon Inj) 1 mg UD PRN SQ 06/11/17 03:45 07/11/17 03:44 Felodipine (Plendil Tabcr) 10 mg HS PO 06/11/17 21:00 07/11/17 20:59 06/19/17 20:10 10 MG Enteral Nutritional Formula (Boost Glucose Control) 1 can BIDM PO 06/12/17 08:00 07/12/17 07:59 06/20/17 07:58 1 CAN Guaifenesin/ Dextromethorphan (Robitussin-Dm Syrup) 5 ml Q6H PRN PO 06/12/17 10:45 07/12/17 10:44 06/20/17 07:57 5 ML Lactobacillus Acidophilus (Floranex Tab) 4 tab TIDM PO 06/13/17 08:00 07/13/17 07:59 06/20/17 14:14 4 TAB Furosemide 80 mg/ Syringe 8 ml @ 4 mls/min BID17 IV 06/13/17 21:00 07/13/17 20:59 06/20/17 07:58 4 MLS/MIN Oxycodone/ Acetaminophen (Percocet 5-325mg Tab) 1 tab Q4H PRN PO 06/18/17 12:00 07/02/17 11:59 06/19/17 07:56 1 TAB Insulin Glargine (Lantus Solostar Pen) 8 units QPM SC 06/19/17 21:00 07/19/17 20:59 06/19/17 21:04 8 UNITS Insulin Aspart (novoLOG ASPART) SLIDING SCALE G... ACHS SC 06/20/17 06:30 07/20/17 06:29 Albuterol/ Ipratropium (Duoneb) 3 ml Q4 PRN INH 06/19/17 12:30 07/19/17 12:29 Impression (1) Acute renal insufficiency (2) Chronic kidney disease (3) CHF exacerbation (4) Weakness Nava is a 82-year-old female with advanced CKD, hypertension, diabetes, CHF and a history of coronary artery disease status post CABG. She was admitted to the hospital with CHF exacerbation, pleural effusion and hypertensive urgency. 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 We have discussed the advanced nature of her renal dysfunction in detail. R AC brachiocephalic AVF placed by Dr. Montemayor 06/19/17. TDC placed . The patient is receiving her second dialysis treatment today. Arrangements in place to continue HD at [facility] under the care of Dr. Noyola at discharge. Recommendations Anemia -- Epogen 91559 units given on 06/12/2017 -- Epogen 34307 MWF with HD -- JUAN PABLO being treated with venofer CKD/ESRD: -- Second HD treatment today -- Plan next HD tomorrow versus Sunday, will evaluated tomorrow AM -- Maintain sodium restriction but avoid additional dietary restrictions at this time Hypertension: -- Acceptable control CHF: -- Improving with UF
[2017-06-20] MEDS ORDERED: PROMETHAZINE HCL INJ 25 MG in SODIUM CHLORIDE 0.9% 50ML 50 ML IV SCH (17:00)
[2017-06-20] MEDS: ALPRAZOLAM 0.5 MG TAB PO SCH (20:20)
[2017-06-20] MEDS: FELODIPINE 5 MG TABCR PO SCH (20:22)
[2017-06-20] MEDS: QUETIAPINE FUMARATE 25 MG TAB PO SCH (20:23)
[2017-06-20] MEDS: INSULIN GLARGINE SOLOSTAR 100 UNITS/ML 3 ML PEN SC SCH (20:26)
[2017-06-21] VITALS (7 sets, daily range): BP systolic 149–163; BP diastolic 57–66; PULSE 60–62; TEMP 36.5–36.7; O2SAT 90–98
[2017-06-21 07:25] LABS: ALBUMIN 2.2 gm/dl (3.4-5.0); CALCIUM 7.8 mg/dl (8.5-10.1); CREATININE 2.75 mg/dl (0.60-1.20); PHOSPHORUS 3.9 mg/dl (2.5-4.9); POTASSIUM 4.1 mmol/L (3.5-5.1)
[2017-06-21] MEDS: BOOST GLUCOSE CONTROL PO SCH ×2 (08:00→17:22)
[2017-06-21] MEDS: ONDANSETRON INJ 2 MG/ML 2 ML VIAL IV PRN (08:21)
[2017-06-21] MEDS: EZETIMIBE 10MG TAB PO SCH (08:21)
[2017-06-21] MEDS: LACTOBACILLUS ACIDOPHILUS (FLORANEX) TAB PO SCH ×3 (08:21→17:22)
[2017-06-21] MEDS: MAGNESIUM HYDROXIDE SUSP 30 ML UDC PO PRN (08:21)
[2017-06-21] MEDS: INSULIN ASPART 100 UNITS/ML 3 ML PEN SC SCH ×4 (08:23→21:00)
[2017-06-21] MEDS ORDERED: NURSING VERBAL MED ORDER ONE ×2 (09:45→18:00)
[2017-06-21] MEDS: FUROSEMIDE INJ 80 MG in SYRINGE 0 ML IV SCH ×2 (10:12→17:21)
[2017-06-21] MEDS: ISOSORBIDE MONONITRATE 60 MG TABCR PO SCH ×2 (10:12→19:32)
[2017-06-21] MEDS ORDERED: PROMETHAZINE HCL INJ 12.5 MG in SODIUM CHLORIDE 0.9% 50ML 50 ML IV ONE (10:15)
--- NOTE | 2017-06-21 11:42 | Nephrology Progress Note ---
Nephrology Progress Note Date of Service Jun 21, 2017. Chief Complaint CKD Subjective No acute events overnight. No complaints this morning. Nava feels relatively well this morning. She has some nausea. This has been ongoing for several days. Appetite is poor. She expressed some anorexia. She denies abdominal pain. No bowel movement in several days. She tolerated hemodialysis well yesterday. Nava denies shortness of breath. Review of Systems A complete review of systems was performed. Pertinent positives are noted above. All other systems are negative. Vital Signs Last 8 Hrs Date Time Temp Pulse Resp B/P (MAP) Pulse Ox O2 Delivery O2 Flow Rate FiO2 06/21/17 08:32 36.5 61 16 150/65 (93) 98 Nasal Cannula 2.0 06/21/17 08:20 Nasal Cannula 2.0 I & O 24-Hour Column 06/22/17 07:59 Output Total 200 ml Balance -200 ml Last Recorded Weight Weight (Kilograms): 75.500 Physical Exam General Appearance: WD/WN, no apparent distress Head: normocephalic, atraumatic Eyes: normal inspection, sclerae normal ENT: normal ENT inspection, pharynx normal Neck: supple, no JVD, + pertinent finding ([facility] TDC with pressure dressing) Respiratory/Chest: lungs clear, normal breath sounds Cardiovascular: regular rate, rhythm Abdomen/GI: non tender, soft Extremities/Musculoskelatal: normal inspection, no pedal edema Neurologic/Psych: alert, normal mood/affect Family History No pertinent family history Social History Smoking Status: Never smoker Drug Use: none Marital Status: Housing Status: lives with family Occupation: retired Laboratory Results Past 24 Hours 06/20/17 15:17 06/21/17 06:06 Test 06/20/17 12:46 06/20/17 16:42 06/20/17 20:23 06/21/17 06:06 Bedside Glucose 144 mg/dl (70-90) 146 mg/dl (70-90) 126 mg/dl (70-90) Anion Gap 6.0 mmol/L (3-11) Est Creatinine Clear Calc Drug Dose 13.4 ml/min Estimated GFR () 17.8 Estimated GFR (Non- 15.3 BUN/Creatinine Ratio 12.5 (10-20) Calcium Level 7.8 mg/dl (8.5-10.1) Phosphorus Level 3.9 mg/dl (2.5-4.9) Albumin 2.2 gm/dl (3.4-5.0) Test 06/21/17 07:45 Bedside Glucose 81 mg/dl (70-90) Allergies Coded Allergies: Carbamazepine (Verified Allergy, Intermediate, RASH, 06/10/17) Erythromycin (Verified Allergy, Intermediate, RASH, 06/10/17) Carvedilol (Verified Adverse Reaction, Intermediate, DIZZINESS, VISUAL DISTURBANCES, 06/10/17) Statins (Verified Adverse Reaction, Intermediate, MUSCLE ACHES, 06/10/17) Medications Current Inpatient Medications Medications (Trade) Dose Ordered Sig/Haja Route Start Time Stop Time Status Last Admin Dose Admin Heparin Sodium (Porcine) (Heparin Sq 5000 Unit/0.5ml) 5,000 unit Q8H SQ 06/11/17 06:00 07/11/17 05:59 Future Hold 06/19/17 21:02 5,000 UNIT Acetaminophen (Tylenol Tab) 650 mg Q4H PRN PO 06/11/17 01:00 07/11/17 00:59 Al Hydrox/Mg Hydrox/Simethicone (Maalox Max Susp) 15 ml Q4H PRN PO 06/11/17 01:00 07/11/17 00:59 Magnesium Hydroxide (Milk Of Magnesia Susp) 30 ml Q12H PRN PO 06/11/17 01:00 07/11/17 00:59 06/21/17 08:21 30 ML Ondansetron HCl (Zofran Inj) 4 mg Q6H PRN IV 06/11/17 01:00 07/11/17 00:59 06/21/17 08:21 4 MG Nitroglycerin (Nitrostat Tab) 0.4 mg UD PRN SL 06/11/17 01:00 07/11/17 00:59 Morphine Sulfate (MoRPHine SULFATE INJ) 2 mg Q30M PRN IV 06/11/17 01:00 06/25/17 00:59 Polyethylene (Miralax Powder Packet) 17 gm DAILY PRN PO 06/11/17 01:00 07/11/17 00:59 Alprazolam (Xanax Tab) 0.5 mg HS PO 06/11/17 21:00 07/11/17 20:59 06/20/17 20:20 0.5 MG Aspirin (Ecotrin Tab) 81 mg QAM PO 06/11/17 09:00 07/11/17 08:59 Future Hold 06/19/17 07:55 81 MG EZETIMIBE (Zetia Tab) 10 mg QAM PO 06/11/17 09:00 07/11/17 08:59 06/21/17 08:21 10 MG Hydralazine HCl (Apresoline Tab) 100 mg TID PO 06/11/17 09:00 07/11/17 08:59 06/21/17 10:11 100 MG Isosorbide Mononitrate (Imdur Ext Rel Tab) 60 mg BID PO 06/11/17 09:00 07/11/17 08:59 06/21/17 10:12 60 MG Labetalol HCl (Normodyne Tab) 200 mg BID PO 06/11/17 09:00 07/11/17 08:59 06/20/17 20:22 200 MG Quetiapine Fumarate (seroQUEL TAB) 25 mg HS PO 06/11/17 21:00 07/11/17 20:59 06/20/17 20:23 25 MG Miscellaneous Information (Order Awaiting Action) 1 ea QS N/A 06/11/17 08:00 07/11/17 07:59 Miscellaneous Information (Order Awaiting Action) 1 ea QS N/A 06/11/17 08:00 07/11/17 07:59 Glucose (Glucose 40% Gel) 15-30 GRAMS 15 GRAMS... UD PRN PO 06/11/17 03:45 07/11/17 03:44 Glucose (Glucose Chew Tab) 4-8 Tablets 4 Tabl... UD PRN PO 06/11/17 03:45 07/11/17 03:44 Dextrose (Dextrose 50% 50ML Syringe) 25-50ML OF 50% DW IV FOR... UD PRN IV 06/11/17 03:45 07/11/17 03:44 Glucagon (Glucagon Inj) 1 mg UD PRN SQ 06/11/17 03:45 07/11/17 03:44 Felodipine (Plendil Tabcr) 10 mg HS PO 06/11/17 21:00 07/11/17 20:59 06/20/17 20:22 10 MG Enteral Nutritional Formula (Boost Glucose Control) 1 can BIDM PO 06/12/17 08:00 07/12/17 07:59 06/20/17 07:58 1 CAN Guaifenesin/ Dextromethorphan (Robitussin-Dm Syrup) 5 ml Q6H PRN PO 06/12/17 10:45 07/12/17 10:44 06/20/17 07:57 5 ML Lactobacillus Acidophilus (Floranex Tab) 4 tab TIDM PO 06/13/17 08:00 07/13/17 07:59 06/21/17 08:21 4 TAB Furosemide 80 mg/ Syringe 8 ml @ 4 mls/min BID17 IV 06/13/17 21:00 07/13/17 20:59 06/21/17 10:12 4 MLS/MIN Oxycodone/ Acetaminophen (Percocet 5-325mg Tab) 1 tab Q4H PRN PO 06/18/17 12:00 07/02/17 11:59 06/19/17 07:56 1 TAB Insulin Glargine (Lantus Solostar Pen) 8 units QPM SC 06/19/17 21:00 07/19/17 20:59 06/20/17 20:26 8 UNITS Insulin Aspart (novoLOG ASPART) SLIDING SCALE G... ACHS SC 06/20/17 06:30 07/20/17 06:29 Albuterol/ Ipratropium (Duoneb) 3 ml Q4 PRN INH 06/19/17 12:30 07/19/17 12:29 Ondansetron HCl (Zofran Inj) 4 mg TODAY@1700 IV 06/21/17 17:00 06/21/17 19:00 Impression (1) Acute renal insufficiency (2) Chronic kidney disease (3) CHF exacerbation (4) Weakness Nava is a 82-year-old female with advanced CKD, hypertension, diabetes, CHF and a history of coronary artery disease status post CABG. She was admitted to the hospital with CHF exacerbation, pleural effusion and hypertensive urgency. 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 We have discussed the advanced nature of her renal dysfunction in detail. R AC brachiocephalic AVF placed by Dr. Montemayor 06/19/17. TDC placed 3/13/ 18. The patient completed her second dialysis treatment yesterday. Arrangements in place to continue HD at [facility] under the care of Dr. Noyola at discharge. Recommendations Anemia -- Epogen 56415 units given on 06/12/2017 -- Epogen 66103 MWF with HD -- JUAN PABLO being treated with Venofer CKD/ESRD: -- HD tomorrow and continue MWF schedule as inpatient -- Maintain sodium restriction but avoid additional dietary restrictions at this time -- If discharge to [facility] is arranged, please let me know so dialysis can be coordinated Hypertension: -- Acceptable control CHF: -- Improved
[2017-06-21] MEDS ORDERED: FAMOTIDINE 20 MG TAB PO ONE (12:00)
[2017-06-21] MEDS: LABETALOL HCL 200 MG TAB PO SCH ×2 (12:15→19:32)
--- NOTE | 2017-06-21 13:08 | Hospitalist Progress Note ---
Hospitalist Progress Note Date of Service Jun 21, 2017. Subjective Pt evaluation today including: conversation w/ patient, physical exam, lab review, review of inpatient medication list Voiding: no voiding problems Patient resting in bed. Feeling well. Decreased appetite. +Nausea-. improves with Zofran. Feels her breathing has improved. Tolerated dialysis well yesterday. Awaiting placement- hoping for [facility]. Patient denies any fever, chills, sweats, lightheadedness, dizziness, vision changes, CP, palpitations, edema, SOB, wheezing, cough, abdominal pain, vomiting , diarrhea, urinary symptoms, melena, numbness/tingling, weakness, muscle/joint pain, anxiety/depression, active bleeding, or new skin discoloration/changes. Medications Current Inpatient Medications Medications (Trade) Dose Ordered Sig/Haja Route Start Time Stop Time Status Last Admin Dose Admin Heparin Sodium (Porcine) (Heparin Sq 5000 Unit/0.5ml) 5,000 unit Q8H SQ 06/11/17 06:00 07/11/17 05:59 Future Hold 06/19/17 21:02 5,000 UNIT Acetaminophen (Tylenol Tab) 650 mg Q4H PRN PO 06/11/17 01:00 07/11/17 00:59 Al Hydrox/Mg Hydrox/Simethicone (Maalox Max Susp) 15 ml Q4H PRN PO 06/11/17 01:00 07/11/17 00:59 Magnesium Hydroxide (Milk Of Magnesia Susp) 30 ml Q12H PRN PO 06/11/17 01:00 07/11/17 00:59 06/21/17 08:21 30 ML Ondansetron HCl (Zofran Inj) 4 mg Q6H PRN IV 06/11/17 01:00 07/11/17 00:59 06/21/17 08:21 4 MG Nitroglycerin (Nitrostat Tab) 0.4 mg UD PRN SL 06/11/17 01:00 07/11/17 00:59 Morphine Sulfate (MoRPHine SULFATE INJ) 2 mg Q30M PRN IV 06/11/17 01:00 06/25/17 00:59 Polyethylene (Miralax Powder Packet) 17 gm DAILY PRN PO 06/11/17 01:00 07/11/17 00:59 Alprazolam (Xanax Tab) 0.5 mg HS PO 06/11/17 21:00 07/11/17 20:59 06/20/17 20:20 0.5 MG Aspirin (Ecotrin Tab) 81 mg QAM PO 06/11/17 09:00 07/11/17 08:59 Future Hold 06/19/17 07:55 81 MG EZETIMIBE (Zetia Tab) 10 mg QAM PO 06/11/17 09:00 07/11/17 08:59 06/21/17 08:21 10 MG Hydralazine HCl (Apresoline Tab) 100 mg TID PO 06/11/17 09:00 07/11/17 08:59 06/21/17 10:11 100 MG Isosorbide Mononitrate (Imdur Ext Rel Tab) 60 mg BID PO 06/11/17 09:00 07/11/17 08:59 06/21/17 10:12 60 MG Labetalol HCl (Normodyne Tab) 200 mg BID PO 06/11/17 09:00 07/11/17 08:59 06/21/17 12:15 200 MG Quetiapine Fumarate (seroQUEL TAB) 25 mg HS PO 06/11/17 21:00 07/11/17 20:59 06/20/17 20:23 25 MG Miscellaneous Information (Order Awaiting Action) 1 ea QS N/A 06/11/17 08:00 07/11/17 07:59 Miscellaneous Information (Order Awaiting Action) 1 ea QS N/A 06/11/17 08:00 07/11/17 07:59 Glucose (Glucose 40% Gel) 15-30 GRAMS 15 GRAMS... UD PRN PO 06/11/17 03:45 07/11/17 03:44 Glucose (Glucose Chew Tab) 4-8 Tablets 4 Tabl... UD PRN PO 06/11/17 03:45 07/11/17 03:44 Dextrose (Dextrose 50% 50ML Syringe) 25-50ML OF 50% DW IV FOR... UD PRN IV 06/11/17 03:45 07/11/17 03:44 Glucagon (Glucagon Inj) 1 mg UD PRN SQ 06/11/17 03:45 07/11/17 03:44 Felodipine (Plendil Tabcr) 10 mg HS PO 06/11/17 21:00 07/11/17 20:59 06/20/17 20:22 10 MG Enteral Nutritional Formula (Boost Glucose Control) 1 can BIDM PO 06/12/17 08:00 07/12/17 07:59 06/20/17 07:58 1 CAN Guaifenesin/ Dextromethorphan (Robitussin-Dm Syrup) 5 ml Q6H PRN PO 06/12/17 10:45 07/12/17 10:44 06/20/17 07:57 5 ML Lactobacillus Acidophilus (Floranex Tab) 4 tab TIDM PO 06/13/17 08:00 07/13/17 07:59 06/21/17 11:49 4 TAB Furosemide 80 mg/ Syringe 8 ml @ 4 mls/min BID17 IV 06/13/17 21:00 07/13/17 20:59 06/21/17 10:12 4 MLS/MIN Oxycodone/ Acetaminophen (Percocet 5-325mg Tab) 1 tab Q4H PRN PO 06/18/17 12:00 07/02/17 11:59 06/19/17 07:56 1 TAB Insulin Glargine (Lantus Solostar Pen) 8 units QPM SC 06/19/17 21:00 07/19/17 20:59 06/20/17 20:26 8 UNITS Insulin Aspart (novoLOG ASPART) SLIDING SCALE G... ACHS SC 06/20/17 06:30 07/20/17 06:29 Albuterol/ Ipratropium (Duoneb) 3 ml Q4 PRN INH 06/19/17 12:30 07/19/17 12:29 Ondansetron HCl (Zofran Inj) 4 mg TODAY@1700 IV 06/21/17 17:00 06/21/17 19:00 Famotidine (Pepcid Tab) 20 mg DAILY PO 06/21/17 20:00 07/21/17 19:59 Promethazine HCl (Phenergan Tab) 12.5 mg Q6H PRN PO 06/21/17 12:00 07/21/17 11:59 Objective Vital Signs Date Time Temp Pulse Resp B/P (MAP) Pulse Ox O2 Delivery O2 Flow Rate FiO2 3/15/18 12:16 60 154/61 (92) 06/21/17 08:32 36.5 61 16 150/65 (93) 98 Nasal Cannula 2.0 06/21/17 08:20 Nasal Cannula 2.0 06/21/17 00:00 96 Nasal Cannula 2.0 06/20/17 23:54 36.3 61 16 142/58 (86) 96 Nasal Cannula 2.0 06/20/17 20:19 187/53 (97) 06/20/17 16:00 Nasal Cannula 2.0 06/20/17 15:29 36.6 60 18 148/63 (91) 98 Nasal Cannula 2.0 06/20/17 13:52 97 Physical Exam General Appearance: no apparent distress, + obese, + pertinent finding (O2 NC ) Eyes: normal inspection, PERRL ENT: hearing grossly normal Neck: supple Respiratory/Chest: lungs clear, no respiratory distress, no accessory muscle use Cardiovascular: regular rate, rhythm Abdomen: normal bowel sounds, non tender, soft Extremities: no calf tenderness, + swelling (+1 pitting edema of bilateral lower extremities ) Neurologic/Psychiatric: alert, normal mood/affect, oriented x 3 Skin: warm/dry, no rash, + pallor Laboratory Results Last 24 Hours Test 06/20/17 15:17 06/20/17 16:42 06/20/17 20:23 06/21/17 06:06 Hemoglobin 8.4 g/dL Hematocrit 25.5 % Bedside Glucose 146 mg/dl 126 mg/dl Sodium Level 134 mmol/L Potassium Level 4.1 mmol/L Chloride Level 101 mmol/L Carbon Dioxide Level 27 mmol/L Anion Gap 6.0 mmol/L Blood Urea Nitrogen 34 mg/dl Creatinine 2.75 mg/dl Est Creatinine Clear Calc Drug Dose 13.4 ml/min Estimated GFR () 17.8 Estimated GFR (Non- 15.3 BUN/Creatinine Ratio 12.5 Random Glucose 81 mg/dl Calcium Level 7.8 mg/dl Phosphorus Level 3.9 mg/dl Albumin 2.2 gm/dl Test 06/21/17 07:45 06/21/17 11:46 Bedside Glucose 81 mg/dl 107 mg/dl Assessment and Plan 82 y/o F Hx CKD IV, CAD, HTN, HPL, anemia, DM II, chronic diastolic CHF, 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 Recent admissions for UTI, ARF, Cdiff. Admitted 05/19 with PNM and medication-induced agranulocytosis/neutropenia 05/19, DCd 05/26 to a rehab facility. [facility] productive cough, SOB, nausea, weakness and a poor appetite. She denies CP, vomiting or dysuria. She is afebrile on arrival. Her initial SBP was over 200. She is mildly hypoxic. A CXR is consistent with vascular congestion but could not r/o superimposed PNM. Nausea: Phenergan PRN, Zofran PRN, Pepcid daily SOB secondary to acute on chronic diastolic CHF exacerbation- STABLE: - IV Lasix 80 mg BID and Metolazone 5 mg BID- Metolazone discontinued per nephrology - Monitor I&Os and daily- negative 5.4L - ECHO 04/05/17 reviewed - CXR on 06/14: Persistent bilateral pleural effusions with bibasilar airspace opacities likely atelectatic- encourage incentive spirometry Bronchitis- STABLE: - O2 protocol, wean as tolerated - DuoNeb PRN for SOB/wheezing - Speech therapy consulted- no evidence of aspiration - No abx, no leukocytosis, and afebrile Abnormal UA: UCx w/ yeast- Diflucan 100 mg daily x7 days- completed Weakness and poor appetite, severe protein malnutrition: - [employer] consulted- boost BID - Probiotic added GUSTAVO on CKD IV- temperature regulator 2.75 today: - Consult nephrology, appreciate recommendations- dialysis again today - Vascular surgery consulted- s/p AVF creation and PermCath insertion on 06/[address] Montemayor - to setup outpatient dialysis on [facility] - Hepatitis panel pending Anemia: - Hgb 8.4 yesterday- recheck H&H at 1500 today due drop in H&H - s/p 1 U PRBCs on 06/14 - Epogen 93075 units given on 06/12/2017 and JUAN PABLO being treated with Venofer as per Nephrology - Follow H&H- transfuse PRN for hgb <7.0-8.0 CAD, HLD- STABLE: - Cont ASA 81 mg daily, Labetalol 200 mg BID, Imdur 60 mg BID, Felodipine 5 mg PO HS - STATIN INTOLERANT- continue Zetia HTN- STABLE: - Hydralazine 100 mg TID, Imdur 60 mg BID, Labetalol 200 mg BID - IV diuretics as above T2DM- CONTROLLED: Lantus 8 u HS, BSG ACHS and ISS Insomnia: Continue Xanax 0.5 mg HS and Seroquel 25 mg HS GI prophylaxis: Pepcid daily DVT prophylaxis: Heparin SQ TID Code status: LEVEL I, FULL Dispo: Hoping for [facility] at discharge- PT/OT and CM following
[2017-06-21] MEDS ORDERED: ONDANSETRON INJ 2 MG/ML 2 ML VIAL IV SCH (17:00)
[2017-06-21] MEDS ORDERED: BISACODYL 10 MG SUPP PR ONE (18:30)
[2017-06-21] MEDS ORDERED: SOD PHOSPHATE/SOD BIPHOSPHATE ENEMA 132 ML BTL PR PRN (18:30)
[2017-06-21] MEDS: FAMOTIDINE 20 MG TAB PO SCH (19:32)
[2017-06-21] MEDS: QUETIAPINE FUMARATE 25 MG TAB PO SCH (21:09)
[2017-06-21] MEDS: ALPRAZOLAM 0.5 MG TAB PO SCH (21:09)
[2017-06-21] MEDS: FELODIPINE 5 MG TABCR PO SCH (21:09)
[2017-06-21] MEDS: INSULIN GLARGINE SOLOSTAR 100 UNITS/ML 3 ML PEN SC SCH (21:10)
[2017-06-22] VITALS (21 sets, daily range): BP systolic 135–191; BP diastolic 50–70; PULSE 59–66; TEMP 36.3–37.2; O2SAT 91–92
[2017-06-22 03:46] LABS: HEPATITIS BE ANTIBODY TC 556 Nonreactive; HEPATITIS BE ANTIGEN TC 555 Nonreactive
[2017-06-22] MEDS ORDERED: EPOETIN ALFA 10,000 UNITS/ML VIAL IV SCH (06:00)
[2017-06-22] MEDS ORDERED: IRON SUCROSE INJ 200 MG in SYRINGE 0 ML IV SCH (07:00)
[2017-06-22] MEDS: PROMETHAZINE HCL 25 MG TAB PO PRN ×3 (08:12→22:12)
[2017-06-22] MEDS: EZETIMIBE 10MG TAB PO SCH (08:14)
[2017-06-22] MEDS: LACTOBACILLUS ACIDOPHILUS (FLORANEX) TAB PO SCH ×3 (08:14→17:22)
[2017-06-22] MEDS: FAMOTIDINE 20 MG TAB PO SCH (08:14)
[2017-06-22] MEDS: BOOST GLUCOSE CONTROL PO SCH ×2 (08:18→17:17)
[2017-06-22] MEDS: INSULIN ASPART 100 UNITS/ML 3 ML PEN SC SCH ×4 (08:27→20:51)
[2017-06-22 09:07] LABS: HEMATOCRIT 26.3 % (37-47); HEMOGLOBIN 8.9 g/dL (12.0-16.0); MEAN CELL VOLUME 90.1 fL (80-100); MEAN CORPUSCULAR HEMOGLOBIN 30.5 pg (25-34); MEAN CORPUSCULAR HGB CONC 33.8 g/dl (32-36); MEAN PLATELET VOLUME 8.8 fL (7.4-10.4); PLATELET COUNT 146 K/uL (130-400); RED CELL DISTRIBUTION WIDTH CV 17.3 % (11.5-14.5); WHITE BLOOD COUNT 8.52 K/uL (4.8-10.8)
[2017-06-22 09:34] LABS: ALBUMIN 2.3 gm/dl (3.4-5.0); CALCIUM 8.3 mg/dl (8.5-10.1); CREATININE 3.18 mg/dl (0.60-1.20); POTASSIUM 4.1 mmol/L (3.5-5.1)
[2017-06-22 09:35] LABS: PHOSPHORUS 3.7 mg/dl (2.5-4.9)
[2017-06-22] MEDS: EPOETIN ALFA 10,000 UNITS/ML VIAL IV SCH (12:27)
--- NOTE | 2017-06-22 12:37 | Nephrology Progress Note ---
Nephrology Progress Note Date of Service Jun 22, 2017. Chief Complaint CKD Subjective No acute events overnight. Nava was seen and evaluated during hemodialysis this morning. She is tolerating treatment well. Nausea has improved but remains a concern. She is breathing comfortably. Edema persists but is improving. Review of Systems A complete review of systems was performed. Pertinent positives are noted above. All other systems are negative. Vital Signs Last 8 Hrs Date Time Temp Pulse Resp B/P (MAP) Pulse Ox O2 Delivery O2 Flow Rate FiO2 06/22/17 12:15 60 178/63 06/22/17 12:00 60 180/60 06/22/17 11:45 59 182/58 06/22/17 11:30 59 173/58 06/22/17 11:15 60 174/55 06/22/17 11:00 60 157/52 06/22/17 10:45 60 157/53 06/22/17 10:30 60 157/56 06/22/17 10:15 60 149/52 06/22/17 10:00 60 144/50 06/22/17 09:45 60 145/51 06/22/17 09:30 60 148/59 06/22/17 09:21 61 152/52 06/22/17 08:10 Room Air 06/22/17 07:13 36.8 61 18 135/57 (83) 92 Room Air Last Recorded Weight Weight (Kilograms): 74.900 Physical Exam General Appearance: WD/WN, no apparent distress Head: normocephalic, atraumatic Eyes: normal inspection, sclerae normal ENT: normal ENT inspection, pharynx normal Neck: supple, no JVD, + pertinent finding (RIJ TDC) Respiratory/Chest: lungs clear, no respiratory distress, no accessory muscle use Cardiovascular: regular rate, rhythm, no gallop Abdomen/GI: non tender, soft Extremities/Musculoskelatal: normal inspection, + pertinent finding (RUE BC AVF with thrill and bruit) Family History No pertinent family history Social History Smoking Status: Never smoker Drug Use: none Marital Status: Housing Status: lives with family Occupation: retired Laboratory Results Past 24 Hours 06/22/17 08:43 06/22/17 08:43 Test 06/21/17 16:52 06/21/17 20:11 06/22/17 07:38 06/22/17 08:43 Bedside Glucose 133 mg/dl (70-90) 146 mg/dl (70-90) 88 mg/dl (70-90) Red Blood Count 2.92 M/uL (4.2-5.4) Mean Corpuscular Volume 90.1 fL (80-100) Mean Corpuscular Hemoglobin 30.5 pg (25-34) Mean Corpuscular Hemoglobin Concent 33.8 g/dl (32-36) RDW Standard Deviation 54.0 fL (36.4-46.3) RDW Coefficient of Variation 17.3 % (11.5-14.5) Mean Platelet Volume 8.8 fL (7.4-10.4) Anion Gap 7.0 mmol/L (3-11) Est Creatinine Clear Calc Drug Dose 11.5 ml/min Estimated GFR () 14.9 Estimated GFR (Non- 12.9 BUN/Creatinine Ratio 12.0 (10-20) Calcium Level 8.3 mg/dl (8.5-10.1) Phosphorus Level 3.7 mg/dl (2.5-4.9) Albumin 2.3 gm/dl (3.4-5.0) Allergies Coded Allergies: Carbamazepine (Verified Allergy, Intermediate, RASH, 06/10/17) Erythromycin (Verified Allergy, Intermediate, RASH, 06/10/17) Carvedilol (Verified Adverse Reaction, Intermediate, DIZZINESS, VISUAL DISTURBANCES, 06/10/17) Statins (Verified Adverse Reaction, Intermediate, MUSCLE ACHES, 06/10/17) Medications Current Inpatient Medications Medications (Trade) Dose Ordered Sig/Haja Route Start Time Stop Time Status Last Admin Dose Admin Heparin Sodium (Porcine) (Heparin Sq 5000 Unit/0.5ml) 5,000 unit Q8H SQ 06/11/17 06:00 07/11/17 05:59 Future Hold 06/19/17 21:02 5,000 UNIT Acetaminophen (Tylenol Tab) 650 mg Q4H PRN PO 06/11/17 01:00 07/11/17 00:59 Al Hydrox/Mg Hydrox/Simethicone (Maalox Max Susp) 15 ml Q4H PRN PO 06/11/17 01:00 07/11/17 00:59 Magnesium Hydroxide (Milk Of Magnesia Susp) 30 ml Q12H PRN PO 06/11/17 01:00 4/4/18 00:59 06/21/17 08:21 30 ML Ondansetron HCl (Zofran Inj) 4 mg Q6H PRN IV 06/11/17 01:00 07/11/17 00:59 06/21/17 08:21 4 MG Nitroglycerin (Nitrostat Tab) 0.4 mg UD PRN SL 06/11/17 01:00 07/11/17 00:59 Morphine Sulfate (MoRPHine SULFATE INJ) 2 mg Q30M PRN IV 06/11/17 01:00 06/25/17 00:59 Polyethylene (Miralax Powder Packet) 17 gm DAILY PRN PO 06/11/17 01:00 07/11/17 00:59 Alprazolam (Xanax Tab) 0.5 mg HS PO 06/11/17 21:00 07/11/17 20:59 06/21/17 21:09 0.5 MG Aspirin (Ecotrin Tab) 81 mg QAM PO 06/11/17 09:00 07/11/17 08:59 Future Hold 06/19/17 07:55 81 MG EZETIMIBE (Zetia Tab) 10 mg QAM PO 06/11/17 09:00 07/11/17 08:59 06/22/17 08:14 10 MG Hydralazine HCl (Apresoline Tab) 100 mg TID PO 06/11/17 09:00 07/11/17 08:59 06/21/17 19:32 100 MG Isosorbide Mononitrate (Imdur Ext Rel Tab) 60 mg BID PO 06/11/17 09:00 07/11/17 08:59 06/21/17 19:32 60 MG Labetalol HCl (Normodyne Tab) 200 mg BID PO 06/11/17 09:00 07/11/17 08:59 06/21/17 19:32 200 MG Quetiapine Fumarate (seroQUEL TAB) 25 mg HS PO 06/11/17 21:00 07/11/17 20:59 06/21/17 21:09 25 MG Miscellaneous Information (Order Awaiting Action) 1 ea QS N/A 06/11/17 08:00 07/11/17 07:59 Miscellaneous Information (Order Awaiting Action) 1 ea QS N/A 06/11/17 08:00 07/11/17 07:59 Glucose (Glucose 40% Gel) 15-30 GRAMS 15 GRAMS... UD PRN PO 06/11/17 03:45 07/11/17 03:44 Glucose (Glucose Chew Tab) 4-8 Tablets 4 Tabl... UD PRN PO 06/11/17 03:45 07/11/17 03:44 Dextrose (Dextrose 50% 50ML Syringe) 25-50ML OF 50% DW IV FOR... UD PRN IV 06/11/17 03:45 07/11/17 03:44 Glucagon (Glucagon Inj) 1 mg UD PRN SQ 06/11/17 03:45 07/11/17 03:44 Felodipine (Plendil Tabcr) 10 mg HS PO 06/11/17 21:00 07/11/17 20:59 06/21/17 21:09 10 MG Enteral Nutritional Formula (Boost Glucose Control) 1 can BIDM PO 06/12/17 08:00 07/12/17 07:59 06/22/17 08:18 1 CAN Guaifenesin/ Dextromethorphan (Robitussin-Dm Syrup) 5 ml Q6H PRN PO 06/12/17 10:45 07/12/17 10:44 06/20/17 07:57 5 ML Lactobacillus Acidophilus (Floranex Tab) 4 tab TIDM PO 06/13/17 08:00 07/13/17 07:59 06/22/17 08:14 4 TAB Furosemide 80 mg/ Syringe 8 ml @ 4 mls/min BID17 IV 06/13/17 21:00 07/13/17 20:59 06/21/17 17:21 4 MLS/MIN Oxycodone/ Acetaminophen (Percocet 5-325mg Tab) 1 tab Q4H PRN PO 06/18/17 12:00 07/02/17 11:59 06/19/17 07:56 1 TAB Insulin Glargine (Lantus Solostar Pen) 8 units QPM SC 06/19/17 21:00 07/19/17 20:59 06/21/17 21:10 8 UNITS Insulin Aspart (novoLOG ASPART) SLIDING SCALE G... ACHS SC 06/20/17 06:30 07/20/17 06:29 Albuterol/ Ipratropium (Duoneb) 3 ml Q4 PRN INH 06/19/17 12:30 07/19/17 12:29 Famotidine (Pepcid Tab) 20 mg DAILY PO 06/21/17 20:00 07/21/17 19:59 06/22/17 08:14 20 MG Promethazine HCl (Phenergan Tab) 12.5 mg Q6H PRN PO 06/21/17 12:00 07/21/17 11:59 06/22/17 08:12 12.5 MG Iron Sucrose 200 mg/Syringe 10 ml @ 10 mls/min TODAY@0700 IV 06/22/17 07:00 06/22/17 23:59 06/22/17 11:49 10 MLS/MIN Epoetin Arik (Procrit Inj) 10,000 units MoWeFr@0600 IV 06/22/17 06:00 07/22/17 05:59 06/22/17 12:27 10,000 UNITS Impression (1) Acute renal insufficiency (2) Chronic kidney disease (3) CHF exacerbation (4) Weakness Nava is a 82-year-old female with advanced CKD, hypertension, diabetes, CHF and a history of coronary artery disease status post CABG. She was admitted to the hospital with CHF exacerbation, pleural effusion and hypertensive urgency. 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 R AC brachiocephalic AVF placed by Dr. Montemayor 06/19/17. TDC placed . Nava is tolerating her third hemodialysis treatment today. There have been no complications with therapy. Volume status is slowly improving. Edema persists. UF increased as tolerated. Arrangements in place to continue HD at [facility] under the care of Dr. Noyola at discharge. Recommendations CKD VD -- HD today and plan to continue MWF schedule -- Maintain sodium restriction but avoid additional dietary restrictions at this time -- If discharge to [facility] is arranged, please let me know so dialysis can be coordinated Anemia -- Epogen 87783 units given on 06/12/2017 -- Epogen [id number] MWF with HD -- JUAN PABLO being treated with Venofer Hypertension: -- Acceptable control CHF: -- Improved -- Will continue UF as tolerated for edema
[2017-06-22] MEDS: LABETALOL HCL 200 MG TAB PO SCH ×2 (13:48→20:04)
[2017-06-22] MEDS: ISOSORBIDE MONONITRATE 60 MG TABCR PO SCH ×2 (13:49→20:03)
[2017-06-22] MEDS: FUROSEMIDE INJ 80 MG in SYRINGE 0 ML IV SCH ×2 (13:50→17:17)
--- NOTE | 2017-06-22 14:01 | DIAGNOSTIC IMAGING REPORT ---
ABDOMINAL ULTRASOUND, RIGHT UPPER QUADRANT HISTORY: Right upper quadrant abdominal pain. COMPARISON: CT of the abdomen and pelvis September 12, 2017 and right upper quadrant ultrasound April 18, 2017 FINDINGS: Hepatic echotexture is coarsened. No hepatic lesions are identified by sonography and there is no biliary ductal dilatation. There are multiple gallstones within the gallbladder. The gallbladder is mildly distended. A small amount of pericholecystic fluid is noted. There is no significant gallbladder wall thickening. A right pleural effusion is incidentally noted. There is no right hydronephrosis. A right renal cyst is noted. There is trace right perinephric fluid. IMPRESSION: 1. Cholelithiasis, gallbladder distention and pericholecystic fluid. The findings favor acute cholecystitis. A hepatobiliary scan could be obtained as indicated. 2. No biliary ductal dilatation. 3. Apparent coarsening of hepatic echotexture which raises the possibility of cirrhosis. 4. Right pleural effusion. Electronically signed by: Chase Gage M.D. 06/22/2017 1:59 PM Dictated Date/Time: 06/22/2017 1:55 PM
[2017-06-22] MEDS ORDERED: CIPROFLOXACIN 400MG / 200ML D5W IV STA (15:00)
[2017-06-22] MEDS ORDERED: METRONIDAZOLE 500MG / 100ML NSS IV STA (15:00)
[2017-06-22] MEDS ORDERED: CIPROFLOXACIN 400MG / D5W IV SCH (15:15)
[2017-06-22] MEDS: METRONIDAZOLE / NSS 500 MG in PREMIXED NSS 100 ML IV SCH ×2 (15:57→23:14)
--- NOTE | 2017-06-22 16:07 | Progress Note ---
Subjective Date of Service: Jun 22, 2017. Subjective Pt evaluation today including: conversation w/ patient, physical exam, chart review, lab review, review of studies, review of inpatient medication list have right upper quadrant pain since yesterday, associated with nausea , deny fevers Problem List Medical Problems: (1) Acute kidney failure Status: Acute (2) Cholelithiasis Status: Acute (3) Dehydration Status: Acute (4) HTN (hypertension) Status: Acute (5) Hypertensive emergency Status: Acute (6) Influenza Status: Acute (7) Nausea and vomiting Status: Acute (8) Proteinuria Status: Acute Review of Systems Constitutional: + weakness, + fatigue, No fever, No chills, No sweats, No weight loss, No problem reported Eyes: No worsening of vision, No eye pain, No redness, No discharge, No diplopia ENT: No hearing loss, No unusual epistaxis, No nasal symptoms, No sore throat, No tinnitus, No dental problems, No trouble swallowing Respiratory: No cough, No sputum, No wheezing, No shortness of breath, No dyspnea on exertion, No dyspnea at rest, No hemoptysis Cardiac: No chest pain, No orthopnea, No PND, No edema, No claudication, No palpitations Abdomen: + pain, + nausea, + vomiting, No diarrhea, No constipation Musculoskeletal: No joint pain, No muscle pain, No swelling, No calf pain Female : No dysuria, No urinary frequency, No hematuria, No incontinence, No abnormal vaginal bleeding, No vaginal discharge Neurologic: No memory loss, No paralysis, No weakness, No numbness/tingling, No vertigo, No balance problems Psychiatric: No depression symptoms, No anhedonism, No anxiety, No insomnia, No substance abuse Heme: No abnormal bleeding/bruising, No clotting problems, No swollen lymph nodes, No night sweats Endo: + fatigue, No excessive thirst, No excessive urination Skin: No rash, No itch, No new/changing skin lesions, No color change, No bleeding Objective Vital Signs Date Time Temp Pulse Resp B/P (MAP) Pulse Ox O2 Delivery O2 Flow Rate FiO2 06/22/17 13:47 66 190/63 (105) 06/22/17 12:30 59 182/59 06/22/17 12:15 60 178/63 06/22/17 12:00 60 180/60 06/22/17 11:45 59 182/58 06/22/17 11:30 59 173/58 06/22/17 11:15 60 174/55 06/22/17 11:00 60 157/52 06/22/17 10:45 60 157/53 06/22/17 10:30 60 157/56 06/22/17 10:15 60 149/52 06/22/17 10:00 60 144/50 06/22/17 09:45 60 145/51 06/22/17 09:30 60 148/59 06/22/17 09:21 61 152/52 06/22/17 08:10 Room Air 06/22/17 07:13 36.8 61 18 135/57 (83) 92 Room Air 06/22/17 00:02 36.3 60 16 137/57 (83) 91 Room Air 06/21/17 23:45 Room Air 06/21/17 19:30 62 163/57 (92) 92 Room Air 06/21/17 16:00 95 Room Air Physical Exam General Appearance: WD/WN, no apparent distress, + obese, + pertinent finding ( Pale and chronically ill looking,) Eyes: normal inspection, PERRL, EOMI, sclerae normal ENT: normal ENT inspection, hearing grossly normal, pharynx normal Neck: supple, no adenopathy, thyroid normal, no JVD, no carotid bruits, trachea midline Respiratory/Chest: chest non-tender, normal breath sounds, no respiratory distress, no accessory muscle use, + decreased breath sounds, + pertinent finding (Right front chest , has a tunnel catheter in place,) Cardiovascular: regular rate, rhythm, no gallop, no JVD, no murmur, + pertinent finding (2+) Abdomen: normal bowel sounds, soft, no pulsatile mass, + tenderness (Right upper quadrant) Extremities: normal range of motion, non-tender, normal inspection, no pedal edema, no calf tenderness, normal capillary refill, pelvis stable, + swelling ( Bilateral hands and lower extremities has 2+ edema) 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, no motor/sensory deficits, alert, normal mood/affect, oriented x 3 Skin: normal color, warm/dry, no rash Lymphatic: no adenopathy Laboratory Results Last 24 Hours Test 06/21/17 16:52 06/21/17 20:11 06/22/17 07:38 06/22/17 08:43 Bedside Glucose 133 mg/dl 146 mg/dl 88 mg/dl White Blood Count 8.52 K/uL Red Blood Count 2.92 M/uL Hemoglobin 8.9 g/dL Hematocrit 26.3 % Mean Corpuscular Volume 90.1 fL Mean Corpuscular Hemoglobin 30.5 pg Mean Corpuscular Hemoglobin Concent 33.8 g/dl RDW Standard Deviation 54.0 fL RDW Coefficient of Variation 17.3 % Platelet Count 146 K/uL Mean Platelet Volume 8.8 fL Sodium Level 133 mmol/L Potassium Level 4.1 mmol/L Chloride Level 100 mmol/L Carbon Dioxide Level 25 mmol/L Anion Gap 7.0 mmol/L Blood Urea Nitrogen 38 mg/dl Creatinine 3.18 mg/dl Est Creatinine Clear Calc Drug Dose 11.5 ml/min Estimated GFR () 14.9 Estimated GFR (Non- 12.9 BUN/Creatinine Ratio 12.0 Random Glucose 98 mg/dl Calcium Level 8.3 mg/dl Phosphorus Level 3.7 mg/dl Albumin 2.3 gm/dl Test 06/22/17 13:51 Bedside Glucose 91 mg/dl Assessment and Plan 82 y/o F readmitted June 11, 2017 with UTI, ARF, In previous admission on 05/19 with PNM and medication-induced agranulocytosis/ neutropenia 05/19, DCd 05/26 to a rehab facility. In this admission , acute on chronic kidney failure now is possible end-stage which now is on dialysis, nephrology arranged Sunday dialysis, has been stable for 2-3 days SOB secondary to acute on chronic diastolic CHF exacerbation: Has carried out fluid overload from dialysis Bronchitis: Stable and better Acute cholecystitis with right upper quadrant pain and nausea patient, ultrasound report support has acute cholecystitis, n.p.o., IV antibiotics, IV fluid, surgical consult Abnormal UA: UCx w/ yeast- Diflucan 100 mg daily x7 days- last day of treatment 06/19 , Weakness and poor appetite, severe protein malnutrition, his consult dietitian Anemia: Stable, s/p 1 U PRBCs on 06/14, Epogen 09357 units given on 06/12/2017 and JUAN PABLO being treated with Venofer as per Nephrology, Hold discharge to [facility], follow-up surgery improved, Code status: LEVEL I, FULL , planning to go to rehab Continued [facility] stay due to: multiple IV medications needed Discharge planning: rehab hospital
--- NOTE | 2017-06-22 17:04 | Surgery Consultation ---
Consultation Date of Consultation: Jun 22, 2017. Attending Physician: Dave Negrete MD, PhD History of Present Illness pt with multiple medical comorbidities and presented this admission with SOB. Has end stage renal failure and recently started dialysis. c/o constant nausea. denies abdominal pain. poor appetite. lives alone. US shows stones and questionable fluid/wall thickening of the gallbladder. Past Medical/Surgical History Medical Problems: (1) Acute kidney failure Status: Acute (2) Cholelithiasis Status: Acute (3) Dehydration Status: Acute (4) HTN (hypertension) Status: Acute (5) Hypertensive emergency Status: Acute (6) Influenza Status: Acute (7) Nausea and vomiting Status: Acute (8) Proteinuria Status: Acute Family History No pertinent family history Social History Smoking Status: Never Smoker Drug Use: none Marital Status: Housing Status: lives alone Occupation Status: retired Allergies Coded Allergies: Carbamazepine (Verified Allergy, Intermediate, RASH, 06/10/17) Erythromycin (Verified Allergy, Intermediate, RASH, 06/10/17) Carvedilol (Verified Adverse Reaction, Intermediate, DIZZINESS, VISUAL DISTURBANCES, 06/10/17) Statins (Verified Adverse Reaction, Intermediate, MUSCLE ACHES, 06/10/17) Home Medications Scheduled Alprazolam (Xanax), 0.5 MG PO HS Amoxicillin & Pot Clavulanate (Augmentin 875-125 mg), 1 TAB PO BID Aspirin (Aspirin Ec), 81 MG PO QAM Cholecalciferol (Vitamin D3), 1 TAB PO QDL Cyclosporine (Ophth) (Restasis), 1 DROP OP BID Ezetimibe (Zetia), 10 MG PO QAM Felodipine (Plendil), 5 MG PO HS Fluorouracil (Topical) (Efudex), 1 APPLN TOP BID Furosemide (Lasix), 20 MG PO DAILY Hydralazine Hcl (Apresoline), 2 TAB PO TID Insulin Aspart (Novolog Flexpen), 0 UNITS SC AC Insulin Glargine (Lantus Solostar), 16 UNITS SC QPM Isosorbide Mononitrate Ext Rel (Imdur Ext Rel), 60 MG PO BID Labetalol Hcl (Labetalol Hcl), 200 MG PO BID [place]-3 Fatty Acids (Fish Oil), 1,000 MG PO DAILY Quetiapine Fumarate (Quetiapine Fumarate), 25 MG PO HS Scheduled PRN Acetaminophen (Tylenol Extra Strength), 500-1,000 MG PO TID PRN for Pain Ipratropium-Albuterol (Duoneb), 3 ML INH Q6R PRN for Shortness of Breath Melatonin (Kp Melatonin), 3 MG PO HS PRN for Sleep Current Inpatient Medications Current Inpatient Medications Medications (Trade) Dose Ordered Sig/Haja Route Start Time Stop Time Status Last Admin Dose Admin Heparin Sodium (Porcine) (Heparin Sq 5000 Unit/0.5ml) 5,000 unit Q8H SQ 06/11/17 06:00 07/11/17 05:59 Future Hold 06/19/17 21:02 5,000 UNIT Acetaminophen (Tylenol Tab) 650 mg Q4H PRN PO 06/11/17 01:00 07/11/17 00:59 Al Hydrox/Mg Hydrox/Simethicone (Maalox Max Susp) 15 ml Q4H PRN PO 06/11/17 01:00 07/11/17 00:59 Magnesium Hydroxide (Milk Of Magnesia Susp) 30 ml Q12H PRN PO 06/11/17 01:00 07/11/17 00:59 06/21/17 08:21 30 ML Ondansetron HCl (Zofran Inj) 4 mg Q6H PRN IV 06/11/17 01:00 07/11/17 00:59 06/21/17 08:21 4 MG Nitroglycerin (Nitrostat Tab) 0.4 mg UD PRN SL 06/11/17 01:00 07/11/17 00:59 Morphine Sulfate (MoRPHine SULFATE INJ) 2 mg Q30M PRN IV 06/11/17 01:00 06/25/17 00:59 Polyethylene (Miralax Powder Packet) 17 gm DAILY PRN PO 06/11/17 01:00 07/11/17 00:59 Alprazolam (Xanax Tab) 0.5 mg HS PO 06/11/17 21:00 07/11/17 20:59 06/21/17 21:09 0.5 MG Aspirin (Ecotrin Tab) 81 mg QAM PO 06/11/17 09:00 07/11/17 08:59 Future Hold 06/19/17 07:55 81 MG EZETIMIBE (Zetia Tab) 10 mg QAM PO 06/11/17 09:00 07/11/17 08:59 06/22/17 08:14 10 MG Hydralazine HCl (Apresoline Tab) 100 mg TID PO 06/11/17 09:00 07/11/17 08:59 06/22/17 13:49 100 MG Isosorbide Mononitrate (Imdur Ext Rel Tab) 60 mg BID PO 06/11/17 09:00 07/11/17 08:59 06/22/17 13:49 60 MG Labetalol HCl (Normodyne Tab) 200 mg BID PO 06/11/17 09:00 07/11/17 08:59 06/22/17 13:48 200 MG Quetiapine Fumarate (seroQUEL TAB) 25 mg HS PO 06/11/17 21:00 07/11/17 20:59 06/21/17 21:09 25 MG Miscellaneous Information (Order Awaiting Action) 1 ea QS N/A 06/11/17 08:00 07/11/17 07:59 Miscellaneous Information (Order Awaiting Action) 1 ea QS N/A 06/11/17 08:00 07/11/17 07:59 Glucose (Glucose 40% Gel) 15-30 GRAMS 15 GRAMS... UD PRN PO 06/11/17 03:45 07/11/17 03:44 Glucose (Glucose Chew Tab) 4-8 Tablets 4 Tabl... UD PRN PO 06/11/17 03:45 07/11/17 03:44 Dextrose (Dextrose 50% 50ML Syringe) 25-50ML OF 50% DW IV FOR... UD PRN IV 06/11/17 03:45 07/11/17 03:44 Glucagon (Glucagon Inj) 1 mg UD PRN SQ 06/11/17 03:45 07/11/17 03:44 Felodipine (Plendil Tabcr) 10 mg HS PO 06/11/17 21:00 07/11/17 20:59 06/21/17 21:09 10 MG Enteral Nutritional Formula (Boost Glucose Control) 1 can BIDM PO 06/12/17 08:00 07/12/17 07:59 06/22/17 08:18 1 CAN Guaifenesin/ Dextromethorphan (Robitussin-Dm Syrup) 5 ml Q6H PRN PO 06/12/17 10:45 07/12/17 10:44 06/20/17 07:57 5 ML Lactobacillus Acidophilus (Floranex Tab) 4 tab TIDM PO 06/13/17 08:00 07/13/17 07:59 06/22/17 13:49 4 TAB Furosemide 80 mg/ Syringe 8 ml @ 4 mls/min BID17 IV 06/13/17 21:00 07/13/17 20:59 06/22/17 13:50 4 MLS/MIN Oxycodone/ Acetaminophen (Percocet 5-325mg Tab) 1 tab Q4H PRN PO 06/18/17 12:00 07/02/17 11:59 06/19/17 07:56 1 TAB Insulin Glargine (Lantus Solostar Pen) 8 units QPM SC 06/19/17 21:00 07/19/17 20:59 06/21/17 21:10 8 UNITS Insulin Aspart (novoLOG ASPART) SLIDING SCALE G... ACHS SC 06/20/17 06:30 07/20/17 06:29 Albuterol/ Ipratropium (Duoneb) 3 ml Q4 PRN INH 06/19/17 12:30 07/19/17 12:29 Famotidine (Pepcid Tab) 20 mg DAILY PO 06/21/17 20:00 07/21/17 19:59 06/22/17 08:14 20 MG Promethazine HCl (Phenergan Tab) 12.5 mg Q6H PRN PO 06/21/17 12:00 07/21/17 11:59 06/22/17 13:48 12.5 MG Iron Sucrose 200 mg/Syringe 10 ml @ 10 mls/min TODAY@0700 IV 06/22/17 07:00 06/22/17 23:59 06/22/17 11:49 10 MLS/MIN Epoetin Arik (Procrit Inj) 10,000 units MoWeFr@0600 IV 06/22/17 06:00 07/22/17 05:59 06/22/17 12:27 10,000 UNITS Metronidazole 500 mg/Prmx 100 ml @ 100 mls/hr Q8H IV 06/22/17 15:00 07/02/17 14:59 06/22/17 15:57 100 MLS/HR Ciprofloxacin/ Dextrose 200 mg/ Prmx 100 ml @ 100 mls/hr Q12H IV 06/23/17 04:00 07/03/17 03:59 Ciprofloxacin/ Dextrose 400 mg/ Prmx 200 ml @ 100 mls/hr TODAY@1515 IV 06/22/17 15:15 06/22/17 17:14 06/22/17 15:57 100 MLS/HR Review of Systems Constitutional: + fatigue Respiratory: + shortness of breath Cardiovascular: + edema Abdomen: + nausea Physical Exam Date Time Temp Pulse Resp B/P (MAP) Pulse Ox O2 Delivery O2 Flow Rate FiO2 06/22/17 16:29 37.2 60 20 137/62 (87) 92 Room Air 06/22/17 16:20 Room Air 06/22/17 13:47 66 190/63 (105) 06/22/17 13:03 37.0 60 191/63 (105) 06/22/17 12:45 62 183/70 06/22/17 12:30 59 182/59 06/22/17 12:15 60 178/63 06/22/17 12:00 60 180/60 06/22/17 11:45 59 182/58 06/22/17 11:30 59 173/58 06/22/17 11:15 60 174/55 06/22/17 11:00 60 157/52 06/22/17 10:45 60 157/53 06/22/17 10:30 60 157/56 06/22/17 10:15 60 149/52 06/22/17 10:00 60 144/50 06/22/17 09:45 60 145/51 06/22/17 09:30 60 148/59 06/22/17 09:21 61 152/52 06/22/17 09:15 37.0 63 159/52 (87) 06/22/17 08:10 Room Air 06/22/17 07:13 36.8 61 18 135/57 (83) 92 Room Air 06/22/17 00:02 36.3 60 16 137/57 (83) 91 Room Air 06/21/17 23:45 Room Air 06/21/17 19:30 62 163/57 (92) 92 Room Air General Appearance: no apparent distress Head: atraumatic Eyes: EOMI, sclerae normal ENT: hearing grossly normal Neck: supple, trachea midline Abdomen/GI: non tender, soft Neurologic/Psych: alert, oriented x 3 Skin: warm/dry Laboratory Results Last 24 Hours Test 06/21/17 20:11 06/22/17 07:38 06/22/17 08:43 06/22/17 13:51 Bedside Glucose 146 mg/dl 88 mg/dl 91 mg/dl White Blood Count 8.52 K/uL Red Blood Count 2.92 M/uL Hemoglobin 8.9 g/dL Hematocrit 26.3 % Mean Corpuscular Volume 90.1 fL Mean Corpuscular Hemoglobin 30.5 pg Mean Corpuscular Hemoglobin Concent 33.8 g/dl RDW Standard Deviation 54.0 fL RDW Coefficient of Variation 17.3 % Platelet Count 146 K/uL Mean Platelet Volume 8.8 fL Sodium Level 133 mmol/L Potassium Level 4.1 mmol/L Chloride Level 100 mmol/L Carbon Dioxide Level 25 mmol/L Anion Gap 7.0 mmol/L Blood Urea Nitrogen 38 mg/dl Creatinine 3.18 mg/dl Est Creatinine Clear Calc Drug Dose 11.5 ml/min Estimated GFR () 14.9 Estimated GFR (Non- 12.9 BUN/Creatinine Ratio 12.0 Random Glucose 98 mg/dl Calcium Level 8.3 mg/dl Phosphorus Level 3.7 mg/dl Albumin 2.3 gm/dl Assessment & Plan 1. Nausea pt's complaint is primarily nausea. Denies abdominal pain. no leukocytosis. not septic. I doubt acute cholecystitis. Pt clearly is not a surgical candidate and risk of surgery would far outweigh low chance of any benefit. suspect nausea may be related to renal failure/uremia. pt is also high risk for esophageal/gastric yeast infections and/or peptic ulcer. could consider EGD if felt medically stable to undergo it. Could consider HIDA scan however again, pt clinically not septic and not a surgical candidate...if she clinically gets worse/becomes septic the option would be to have a cholecystotomy tube placed. Will d/w primary team.
[2017-06-22] MEDS: ONDANSETRON INJ 2 MG/ML 2 ML VIAL IV PRN (17:21)
[2017-06-22] MEDS: FELODIPINE 5 MG TABCR PO SCH (20:04)
[2017-06-22] MEDS: QUETIAPINE FUMARATE 25 MG TAB PO SCH (20:06)
[2017-06-22] MEDS: ALPRAZOLAM 0.5 MG TAB PO SCH (20:51)
[2017-06-22] MEDS: INSULIN GLARGINE SOLOSTAR 100 UNITS/ML 3 ML PEN SC SCH (20:55)
[2017-06-23] VITALS: BP 159/59; PULSE 60; TEMP 36.6; O2SAT 91
[2017-06-23] MEDS: CIPROFLOXACIN / D5W 200 MG in PREMIXED IN D5W 100 ML IV SCH ×2 (04:25→17:25)
[2017-06-23 06:53] LABS: HEMATOCRIT 27.3 % (37-47); HEMOGLOBIN 8.7 g/dL (12.0-16.0); MEAN CORPUSCULAR HGB CONC 31.9 g/dl (32-36); MEAN PLATELET VOLUME 8.4 fL (7.4-10.4); PLATELET COUNT 148 K/uL (130-400); RED CELL DISTRIBUTION WIDTH CV 17.7 % (11.5-14.5); RED CELL DISTRIBUTION WIDTH SD 58.2 fL (36.4-46.3); WHITE BLOOD COUNT 8.13 K/uL (4.8-10.8)
[2017-06-23 07:27] LABS: CALCIUM 7.6 mg/dl (8.5-10.1); CREATININE 2.24 mg/dl (0.60-1.20); PHOSPHORUS 2.3 mg/dl (2.5-4.9); POTASSIUM 3.4 mmol/L (3.5-5.1)
[2017-06-23 07:28] VITALS: BP 174/57; PULSE 62; TEMP 36.5; O2SAT 93
[2017-06-23] MEDS: LACTOBACILLUS ACIDOPHILUS (FLORANEX) TAB PO SCH ×3 (07:50→17:25)
[2017-06-23] MEDS: BOOST GLUCOSE CONTROL PO SCH ×2 (07:50→17:24)
[2017-06-23] MEDS: METRONIDAZOLE / NSS 500 MG in PREMIXED NSS 100 ML IV SCH ×3 (07:52→21:37)
[2017-06-23] MEDS: FUROSEMIDE INJ 80 MG in SYRINGE 0 ML IV SCH ×2 (07:53→17:25)
[2017-06-23] MEDS: INSULIN ASPART 100 UNITS/ML 3 ML PEN SC SCH ×4 (08:00→21:46)
[2017-06-23] MEDS ORDERED: POTASSIUM CHLORIDE 10 MEQ TABCR PO STA (08:21)
[2017-06-23 08:38] LABS: ALKALINE PHOSPHATASE 45 U/L (45-117); ALT/SGPT 10 U/L (12-78); AST/SGOT 9 U/L (15-37); TOTAL PROTEIN 5.1 gm/dl (6.4-8.2)
[2017-06-23] MEDS: ONDANSETRON INJ 2 MG/ML 2 ML VIAL IV PRN ×2 (10:44→17:21)
--- NOTE | 2017-06-23 11:45 | GASTROINTESTINAL CONSULTATION ---
DATE OF CONSULTATION: 06/23/2017 REQUESTING PROVIDER: Dr. Dave Negrete. CHIEF COMPLAINT: Nausea. HISTORY OF PRESENT ILLNESS: The patient is an 82-year-old female previously evaluated by Dr. Ferris several years ago, presented to the hospital on June 11 for evaluation of shortness of breath, cough and worsening appetite. The patient has been in the hospital and undergone several procedures due to her worsening renal failure. The patient notes that she has had nausea, which has been ongoing for several months. She describes having nausea, which is worsened with all meals and having right-sided abdominal discomfort that lasts for 1-2 hours after eating. There have been no fevers, chills, or sweats. The patient was previously seen a few years ago by Dr. Ferris for a similar abdominal discomfort during which time they had suggested a colonoscopy. Based on review of the patient's chart and discussion, she did not present for her followup evaluation as recommended. The patient also denies having a prior upper endoscopy. There is no family history of colon cancer, stomach cancer or esophageal cancer. She denies having difficulty swallowing, pain with swallowing, fevers, chills, or sweats today. PAST MEDICAL HISTORY: 1. Atherosclerotic coronary artery disease. 2. Renal failure. 3. Hypertension. 4. Hypercholesterolemia. 5. Diabetes. 6. Atrial pacemaker. 7. Diastolic dysfunction. MEDICATIONS: 1. Pepcid 20 mg daily. 2. Ciprofloxacin. 3. Metronidazole. 4. Epogen. 5. Reglan 12.5 mg q. 6 p.r.n. 6. Insulin sliding scale, insulin Glargine 8 units q.p.m. 7. Oxycodone p.r.n. 8. Lasix 80 mg twice daily. 9. Alprazolam 0.5 mg daily. 10. Seroquel 25 mg at bedtime. 11. Plendil 10 mg at bedtime. 12. Aspirin 81 mg daily. 13. Zetia 10 mg daily. 14. Hydralazine 100 mg t.i.d. 15. Labetalol 200 mg twice daily. 16. Maalox p.r.n. 17. Zofran 4 mg p.r.n. 18. MiraLax 17 grams daily p.r.n. PAST SURGICAL HISTORY: 1. CABG. 2. Pacemaker. No history of GI procedures. ALLERGIES: 1. CARBAMAZEPINE. 2. ERYTHROMYCIN. 3. CARVEDILOL. 4. STATINS. FAMILY HISTORY: No history of gastrointestinal cancers. SOCIAL HISTORY: The patient is a nonsmoker. Denies drug use. REVIEW OF SYSTEMS: GENERAL: The patient with weakness and fatigue. EYES: No worsening vision. ENT: No hearing loss. RESPIRATORY: The patient with a history of cough and shortness of breath. CARDIOVASCULAR: The patient with no chest pain today. GASTROINTESTINAL: Please see history of present illness. MUSCULOSKELETAL: No new joint pains. The patient does walk with a walker. GENITOURINARY: No dysuria. NEUROLOGIC: The patient with no memory changes. PSYCHIATRIC: No depression today. ENDOCRINE: No polyuria, no polydipsia. HEMATOLOGIC: No bruising or bleeding noted by patient. DERMATOLOGY: No rashes noted by patient today. PHYSICAL EXAMINATION: VITAL SIGNS: Temperature is 36.5, pulse is 62, respiratory rate is 18, blood pressure is 174/57, pulse ox 93% on room air. HEENT: No scleral icterus noted. No JVD noted. LUNGS: Poor respiratory sounds throughout. CARDIAC: Systolic murmur heard. ABDOMEN: Soft, obese, mild right-sided tenderness noted. No rebound or peritoneal signs noted. EXTREMITIES: Edema noted, bilateral lower extremities. NEUROLOGIC: Cranial nerves grossly intact. Motor grossly intact. No asterixis noted. LABORATORIES: White blood cell count 8.13, hemoglobin is 8.7, hematocrit is 27.3, platelet count is 148. Chemistry -- sodium 136, potassium 3.4, chloride is 101, BUN 18, creatinine is 2.24, phosphorus is 2.3, calcium 7.6, AST 9, ALT 10, alkaline phosphatase 45, albumin 2.0. IMAGING RESULTS: Right upper quadrant ultrasound dated 06/22/2017, notable for cholelithiasis, gallbladder distention and pericholecystic fluid. IMPRESSION AND PLAN: An 82-year-old female with persistent nausea and postprandial discomfort. General surgery, who had seen the patient, is not certain if the patient has acute cholecystitis. Gastroenterology evaluation has been requested to determine if upper endoscopy should be offered. Given the constellation of symptoms, we certainly could evaluate for evidence of peptic ulcer disease. Another possibility would be medication-induced symptoms given that the patient is on multiple medications, which could cause nausea. At this point, I would recommend diet as tolerated and we will plan for an upper endoscopy early next week with Dr. Ferris upon his return. If these results are negative, perhaps a HIDA scan as suggested by Dr. Pedro would be beneficial for this patient. Please call with any questions or concerns over the weekend, coverage to resume on Sunday.
[2017-06-23] MEDS: EZETIMIBE 10MG TAB PO SCH (12:27)
[2017-06-23] MEDS: LABETALOL HCL 200 MG TAB PO SCH ×2 (12:27→21:39)
[2017-06-23] MEDS: ISOSORBIDE MONONITRATE 60 MG TABCR PO SCH ×2 (12:27→21:40)
[2017-06-23] MEDS: FAMOTIDINE 20 MG TAB PO SCH (12:27)
--- NOTE | 2017-06-23 14:43 | Progress Note ---
Subjective Date of Service: Jun 23, 2017. Subjective Pt evaluation today including: conversation w/ patient, physical exam, chart review, lab review, review of studies, review of inpatient medication list Doing fair, no abdominal pain because of not eating, report was have more abdominal pain after eating, report still is nauseated, bilateral hands less swelling, but bilateral lower extremities still swelling Problem List Medical Problems: (1) Acute kidney failure Status: Acute (2) Cholelithiasis Status: Acute (3) Dehydration Status: Acute (4) HTN (hypertension) Status: Acute (5) Hypertensive emergency Status: Acute (6) Influenza Status: Acute (7) Nausea and vomiting Status: Acute (8) Proteinuria Status: Acute Review of Systems Constitutional: + weakness, + fatigue, No fever, No chills, No sweats, No weight loss, No problem reported Eyes: No worsening of vision, No eye pain, No redness, No discharge, No diplopia ENT: No hearing loss, No unusual epistaxis, No nasal symptoms, No sore throat, No tinnitus, No dental problems, No trouble swallowing Respiratory: No cough, No sputum, No wheezing, No shortness of breath, No dyspnea on exertion, No dyspnea at rest, No hemoptysis Cardiac: + edema, No chest pain, No orthopnea, No PND, No claudication, No palpitations Abdomen: + nausea, No pain, No vomiting, No diarrhea, No constipation Musculoskeletal: No joint pain, No muscle pain, No swelling, No calf pain Female : No dysuria, No urinary frequency, No hematuria, No incontinence, No abnormal vaginal bleeding, No vaginal discharge Neurologic: No memory loss, No paralysis, No weakness, No numbness/tingling, No vertigo, No balance problems Psychiatric: No depression symptoms, No anhedonism, No anxiety, No insomnia, No substance abuse Heme: No abnormal bleeding/bruising, No clotting problems, No swollen lymph nodes, No night sweats Endo: No fatigue, No excessive thirst, No excessive urination Skin: No rash, No itch, No new/changing skin lesions, No color change, No bleeding Objective Vital Signs Date Time Temp Pulse Resp B/P (MAP) Pulse Ox O2 Delivery O2 Flow Rate FiO2 06/23/17 10:51 Room Air 06/23/17 07:28 36.5 62 18 174/57 (96) 93 Room Air 06/23/17 00:30 Room Air 06/23/17 00:00 36.6 60 20 159/59 (92) 91 Room Air 06/22/17 16:29 37.2 60 20 137/62 (87) 92 Room Air 06/22/17 16:20 Room Air Physical Exam General Appearance: WD/WN, no apparent distress, + obese, + pertinent finding ( Mild pale, generally looks better) Eyes: normal inspection, PERRL, EOMI, sclerae normal ENT: normal ENT inspection, hearing grossly normal, pharynx normal Neck: supple, no adenopathy, thyroid normal, no JVD, no carotid bruits, trachea midline Respiratory/Chest: chest non-tender, normal breath sounds, no respiratory distress, no accessory muscle use, + decreased breath sounds Cardiovascular: regular rate, rhythm, no edema, no gallop, no JVD, no murmur Abdomen: normal bowel sounds, soft, no organomegaly, no pulsatile mass Extremities: normal range of motion, non-tender, normal inspection, no pedal edema, no calf tenderness, normal capillary refill, pelvis stable, + swelling (2 +) Neurologic/Psychiatric: certified 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 II-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 nml as tested, no motor/sensory deficits, alert, normal mood/affect, oriented x 3 Skin: normal color, warm/dry, no rash Lymphatic: no adenopathy Laboratory Results Last 24 Hours Test 06/22/17 17:03 06/22/17 18:28 06/22/17 20:35 06/23/17 06:09 Bedside Glucose 187 mg/dl 144 mg/dl 102 mg/dl White Blood Count 8.13 K/uL Red Blood Count 3.00 M/uL Hemoglobin 8.7 g/dL Hematocrit 27.3 % Mean Corpuscular Volume 91.0 fL Mean Corpuscular Hemoglobin 29.0 pg Mean Corpuscular Hemoglobin Concent 31.9 g/dl RDW Standard Deviation 58.2 fL RDW Coefficient of Variation 17.7 % Platelet Count 148 K/uL Mean Platelet Volume 8.4 fL Sodium Level 136 mmol/L Potassium Level 3.4 mmol/L Chloride Level 101 mmol/L Carbon Dioxide Level 28 mmol/L Anion Gap 6.0 mmol/L Blood Urea Nitrogen 18 mg/dl Creatinine 2.24 mg/dl Est Creatinine Clear Calc Drug Dose 16.2 ml/min Estimated GFR () 22.8 Estimated GFR (Non- 19.6 BUN/Creatinine Ratio 8.0 Random Glucose 84 mg/dl Calcium Level 7.6 mg/dl Phosphorus Level 2.3 mg/dl Magnesium Level 2.0 mg/dl Total Bilirubin 0.4 mg/dl Direct Bilirubin < 0.1 mg/dl Aspartate Amino Transf (AST/SGOT) 9 U/L Alanine Aminotransferase (ALT/SGPT) 10 U/L Alkaline Phosphatase 45 U/L Total Protein 5.1 gm/dl Albumin 2.0 gm/dl Test 06/23/17 07:53 06/23/17 11:24 Bedside Glucose 88 mg/dl 93 mg/dl Assessment and Plan 82 y/o F readmitted June 11, 2017 with UTI, ARF, now is on dialysis, and possible abscess acute cholecystitis Acute on chronic kidney failure, is possible end-stage which now is on dialysis , nephrology arranged Sunday dialysis, has been stable for 2-3 days SOB secondary to acute on chronic diastolic CHF exacerbation: fluid overload has been improving from dialysis Bronchitis: Stable and better Acute cholecystitis with right upper quadrant pain and nausea ultrasound report support has acute cholecystitis, other differential diagnosis for nausea include uremia, new on dialysis, cholecystitis, gastritis or gastric ulceration disease Surgeon feel patient may not have acute cholecystitis, recommended GI consult looking for other source caused of nausea and right upper quadrant pain GI see the patient, agreed to have Dr. Ferris to arrange EGD next week, I have ordered a HIDA scan as well I agree with surgeonthat patient currently is not a good candidate for a surgical procedure Abnormal UA: UCx w/ yeast- Diflucan 100 mg daily x7 days- last day of treatment 06/19 , Weakness and poor appetite, severe protein malnutrition, his consult dietitian Anemia: Stable, s/p 1 U PRBCs on 06/14, Epogen 87894 units given on 06/12/2017 and JUAN PABLO being treated with Venofer as per Nephrology, His bed available in [facility], however hold discharge to [facility], follow-up surgery and GI input In previous admission on 05/19 with PNM and medication-induced agranulocytosis/ neutropenia 05/19, DCd 05/26 to a rehab facility. Clear liquid diet advance as tolerated Code status: LEVEL I, FULL , planning to go to rehab Continued [facility] stay due to: multiple IV medications needed Discharge planning: rehab hospital
--- NOTE | 2017-06-23 16:02 | Nephrology Progress Note ---
Nephrology Progress Note Date of Service Jun 23, 2017. Chief Complaint ESRD Subjective Ms. Dominguez was seen & examined in her hospital room this afternoon. She reports RUQ abdominal discomfort and nausea. She indicates that she will have an EGD and HIDA scan on Sunday. Review of Systems Constitutional: No fever Cardiovascular: No chest pain Respiratory: No dyspnea at rest Abdomen: + pain, + nausea Extremities: No leg edema A complete review of systems was performed. Pertinent positives are noted above. All other systems are negative. Vital Signs Last 8 Hrs Date Time Temp Pulse Resp B/P (MAP) Pulse Ox O2 Delivery O2 Flow Rate FiO2 06/23/17 10:51 Room Air I & O 24-Hour Column 06/24/17 08:00 Intake Total 350 ml Output Total 600 ml Balance -250 ml Last Recorded Weight Weight (Kilograms): 73.200 Physical Exam General Appearance: no apparent distress Head: normocephalic, atraumatic Eyes: PERRL, EOMI Neck: no adenopathy Respiratory/Chest: lungs clear Cardiovascular: regular rate, rhythm Abdomen/GI: + tenderness (RUQ. No guarding. Diminished bowel sounds) Extremities/Musculoskelatal: no pedal edema Family History No pertinent family history Social History Smoking Status: Never smoker Drug Use: none Marital Status: Housing Status: lives with family Occupation: retired Laboratory Results Past 24 Hours 06/23/17 06:09 06/23/17 06:09 Test 06/22/17 17:03 06/22/17 18:28 06/22/17 20:35 06/23/17 06:09 Bedside Glucose 187 mg/dl (70-90) 144 mg/dl (70-90) 102 mg/dl (70-90) Red Blood Count 3.00 M/uL (4.2-5.4) Mean Corpuscular Volume 91.0 fL (80-100) Mean Corpuscular Hemoglobin 29.0 pg (25-34) Mean Corpuscular Hemoglobin Concent 31.9 g/dl (32-36) RDW Standard Deviation 58.2 fL (36.4-46.3) RDW Coefficient of Variation 17.7 % (11.5-14.5) Mean Platelet Volume 8.4 fL (7.4-10.4) Anion Gap 6.0 mmol/L (3-11) Est Creatinine Clear Calc Drug Dose 16.2 ml/min Estimated GFR () 22.8 Estimated GFR (Non- 19.6 BUN/Creatinine Ratio 8.0 (10-20) Calcium Level 7.6 mg/dl (8.5-10.1) Phosphorus Level 2.3 mg/dl (2.5-4.9) Magnesium Level 2.0 mg/dl (1.8-2.4) Total Bilirubin 0.4 mg/dl (0.2-1) Direct Bilirubin < 0.1 mg/dl (0-0.2) Aspartate Amino Transf (AST/SGOT) 9 U/L (15-37) Alanine Aminotransferase (ALT/SGPT) 10 U/L (12-78) Alkaline Phosphatase 45 U/L (45-117) Total Protein 5.1 gm/dl (6.4-8.2) Albumin 2.0 gm/dl (3.4-5.0) Test 06/23/17 07:53 06/23/17 11:24 Bedside Glucose 88 mg/dl (70-90) 93 mg/dl (70-90) Allergies Coded Allergies: Carbamazepine (Verified Allergy, Intermediate, RASH, 06/10/17) Erythromycin (Verified Allergy, Intermediate, RASH, 06/10/17) Carvedilol (Verified Adverse Reaction, Intermediate, DIZZINESS, VISUAL DISTURBANCES, 06/10/17) Statins (Verified Adverse Reaction, Intermediate, MUSCLE ACHES, 06/10/17) Medications Current Inpatient Medications Medications (Trade) Dose Ordered Sig/Haja Route Start Time Stop Time Status Last Admin Dose Admin Heparin Sodium (Porcine) (Heparin Sq 5000 Unit/0.5ml) 5,000 unit Q8H SQ 06/11/17 06:00 07/11/17 05:59 Future Hold 06/19/17 21:02 5,000 UNIT Acetaminophen (Tylenol Tab) 650 mg Q4H PRN PO 06/11/17 01:00 07/11/17 00:59 Al Hydrox/Mg Hydrox/Simethicone (Maalox Max Susp) 15 ml Q4H PRN PO 06/11/17 01:00 07/11/17 00:59 Magnesium Hydroxide (Milk Of Magnesia Susp) 30 ml Q12H PRN PO 06/11/17 01:00 07/11/17 00:59 06/21/17 08:21 30 ML Ondansetron HCl (Zofran Inj) 4 mg Q6H PRN IV 06/11/17 01:00 07/11/17 00:59 06/23/17 10:44 4 MG Nitroglycerin (Nitrostat Tab) 0.4 mg UD PRN SL 06/11/17 01:00 07/11/17 00:59 Morphine Sulfate (MoRPHine SULFATE INJ) 2 mg Q30M PRN IV 06/11/17 01:00 06/25/17 00:59 Polyethylene (Miralax Powder Packet) 17 gm DAILY PRN PO 06/11/17 01:00 07/11/17 00:59 Alprazolam (Xanax Tab) 0.5 mg HS PO 06/11/17 21:00 07/11/17 20:59 06/22/17 20:51 0.5 MG Aspirin (Ecotrin Tab) 81 mg QAM PO 06/11/17 09:00 07/11/17 08:59 Future Hold 06/19/17 07:55 81 MG EZETIMIBE (Zetia Tab) 10 mg QAM PO 06/11/17 09:00 07/11/17 08:59 06/23/17 12:27 10 MG Hydralazine HCl (Apresoline Tab) 100 mg TID PO 06/11/17 09:00 07/11/17 08:59 06/23/17 12:28 100 MG Isosorbide Mononitrate (Imdur Ext Rel Tab) 60 mg BID PO 06/11/17 09:00 07/11/17 08:59 06/23/17 12:27 60 MG Labetalol HCl (Normodyne Tab) 200 mg BID PO 06/11/17 09:00 07/11/17 08:59 06/23/17 12:27 200 MG Quetiapine Fumarate (seroQUEL TAB) 25 mg HS PO 06/11/17 21:00 07/11/17 20:59 06/22/17 20:06 25 MG Miscellaneous Information (Order Awaiting Action) 1 ea QS N/A 06/11/17 08:00 07/11/17 07:59 Miscellaneous Information (Order Awaiting Action) 1 ea QS N/A 06/11/17 08:00 07/11/17 07:59 Glucose (Glucose 40% Gel) 15-30 GRAMS 15 GRAMS... UD PRN PO 06/11/17 03:45 07/11/17 03:44 Glucose (Glucose Chew Tab) 4-8 Tablets 4 Tabl... UD PRN PO 06/11/17 03:45 07/11/17 03:44 Dextrose (Dextrose 50% 50ML Syringe) 25-50ML OF 50% DW IV FOR... UD PRN IV 06/11/17 03:45 07/11/17 03:44 Glucagon (Glucagon Inj) 1 mg UD PRN SQ 06/11/17 03:45 07/11/17 03:44 Felodipine (Plendil Tabcr) 10 mg HS PO 06/11/17 21:00 07/11/17 20:59 06/22/17 20:04 10 MG Enteral Nutritional Formula (Boost Glucose Control) 1 can BIDM PO 06/12/17 08:00 07/12/17 07:59 06/22/17 17:17 1 CAN Guaifenesin/ Dextromethorphan (Robitussin-Dm Syrup) 5 ml Q6H PRN PO 06/12/17 10:45 07/12/17 10:44 06/20/17 07:57 5 ML Lactobacillus Acidophilus (Floranex Tab) 4 tab TIDM PO 06/13/17 08:00 07/13/17 07:59 06/23/17 12:28 4 TAB Furosemide 80 mg/ Syringe 8 ml @ 4 mls/min BID17 IV 06/13/17 21:00 07/13/17 20:59 06/23/17 07:53 4 MLS/MIN Oxycodone/ Acetaminophen (Percocet 5-325mg Tab) 1 tab Q4H PRN PO 06/18/17 12:00 07/02/17 11:59 06/19/17 07:56 1 TAB Insulin Glargine (Lantus Solostar Pen) 8 units QPM SC 06/19/17 21:00 07/19/17 20:59 06/22/17 20:55 8 UNITS Insulin Aspart (novoLOG ASPART) SLIDING SCALE G... ACHS SC 06/20/17 06:30 07/20/17 06:29 06/23/17 12:31 2 UNITS Albuterol/ Ipratropium (Duoneb) 3 ml Q4 PRN INH 06/19/17 12:30 07/19/17 12:29 Promethazine HCl (Phenergan Tab) 12.5 mg Q6H PRN PO 06/21/17 12:00 07/21/17 11:59 06/22/17 22:12 12.5 MG Epoetin Arik (Procrit Inj) 10,000 units MoWeFr@0600 IV 06/22/17 06:00 07/22/17 05:59 06/22/17 12:27 10,000 UNITS Metronidazole 500 mg/Prmx 100 ml @ 100 mls/hr Q8H IV 06/22/17 15:00 07/02/17 14:59 06/23/17 14:08 100 MLS/HR Ciprofloxacin/ Dextrose 200 mg/ Prmx 100 ml @ 100 mls/hr Q12H IV 06/23/17 04:00 07/03/17 03:59 06/23/17 04:25 100 MLS/HR Famotidine (Pepcid Tab) 20 mg DAILY PO 06/23/17 08:00 07/23/17 07:59 06/23/17 12:27 20 MG Impression (1) Acute renal insufficiency (2) Chronic kidney disease (3) CHF exacerbation (4) Weakness Nava is a 82-year-old female with ESRD, HTN, AODM, CHF and ASCVD s/p CABG. She was admitted to the hospital with CHF exacerbation, pleural effusion and hypertensive urgency. 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 R brachiocephalic AVF placed by Dr. Montemayor . TDC placed 06/19/17. Nava had her 1st HD treatment 06/19/17 Possible acute cholecystitis Recommendations ESRD: -- Volume status and electrolyte balance are acceptable. No acute indication for HD today -- Maintain sodium restriction but avoid additional dietary restrictions at this time -- If discharge to [facility] is arranged, please let me know so dialysis can be coordinated ANEMIA: -- Epogen 03924 units given on 06/12/2017 -- Epogen 24992 MWF with HD HTN: -- Acceptable control GI: -- Possible cholecystitis. Await further surgical and GI input
[2017-06-23 16:03] VITALS: O2SAT 93
[2017-06-23 16:17] VITALS: BP 183/51; PULSE 65; TEMP 36.6; O2SAT 94
[2017-06-23 18:04] VITALS: BP 170/56
[2017-06-23] MEDS ORDERED: HydrALAZINE HCL 20 MG/ML VIAL IV. PRN (19:15)
[2017-06-23] MEDS: PROMETHAZINE HCL 25 MG TAB PO PRN (21:37)
[2017-06-23] MEDS: QUETIAPINE FUMARATE 25 MG TAB PO SCH (21:39)
[2017-06-23] MEDS: FELODIPINE 5 MG TABCR PO SCH (21:39)
[2017-06-23] MEDS: INSULIN GLARGINE SOLOSTAR 100 UNITS/ML 3 ML PEN SC SCH (21:47)
[2017-06-23] MEDS: ALPRAZOLAM 0.5 MG TAB PO SCH (21:47)
[2017-06-24] VITALS (7 sets, daily range): BP systolic 122–185; BP diastolic 55–82; PULSE 60–88; TEMP 36.4–36.7; O2SAT 93–95
[2017-06-24] MEDS: CIPROFLOXACIN / D5W 200 MG in PREMIXED IN D5W 100 ML IV SCH ×2 (04:34→16:52)
[2017-06-24 06:18] LABS: BASO % 1.4 %; BASO ABS # 0.12 K/uL (0-0.2); EOS % 9.6 %; EOS ABS # 0.83 K/uL (0-0.5); HEMATOCRIT 26.7 % (37-47); HEMOGLOBIN 8.6 g/dL (12.0-16.0); IG# 0.04 K/uL (0.00-0.02); LYMPH % 11.7 %; LYMPH ABS # 1.02 K/uL (1.2-3.4); MEAN CELL VOLUME 91.4 fL (80-100); MEAN CORPUSCULAR HEMOGLOBIN 29.5 pg (25-34); MEAN CORPUSCULAR HGB CONC 32.2 g/dl (32-36); MEAN PLATELET VOLUME 8.6 fL (7.4-10.4); MONO ABS # 1.13 K/uL (0.11-0.59); NEUT % 63.8 %; NEUT ABS # 5.55 K/uL (1.4-6.5); PLATELET COUNT 151 K/uL (130-400); RED CELL DISTRIBUTION WIDTH CV 18.1 % (11.5-14.5); RED CELL DISTRIBUTION WIDTH SD 60.7 fL (36.4-46.3); WHITE BLOOD COUNT 8.69 K/uL (4.8-10.8)
[2017-06-24 06:38] LABS: CALCIUM 7.8 mg/dl (8.5-10.1); CREATININE 2.59 mg/dl (0.60-1.20); POTASSIUM 3.2 mmol/L (3.5-5.1)
[2017-06-24] MEDS: METRONIDAZOLE / NSS 500 MG in PREMIXED NSS 100 ML IV SCH ×3 (06:54→21:18)
[2017-06-24] MEDS: ONDANSETRON INJ 2 MG/ML 2 ML VIAL IV PRN ×2 (07:34→16:51)
[2017-06-24] MEDS ORDERED: POTASSIUM CHLORIDE 10 MEQ TABCR PO STA (08:06)
[2017-06-24] MEDS: FAMOTIDINE 20 MG TAB PO SCH (08:48)
[2017-06-24] MEDS: ISOSORBIDE MONONITRATE 60 MG TABCR PO SCH ×2 (08:48→21:19)
[2017-06-24] MEDS: LACTOBACILLUS ACIDOPHILUS (FLORANEX) TAB PO SCH ×3 (08:48→16:55)
[2017-06-24] MEDS: LABETALOL HCL 200 MG TAB PO SCH ×2 (08:48→21:19)
[2017-06-24] MEDS: BOOST GLUCOSE CONTROL PO SCH ×2 (08:48→16:54)
[2017-06-24] MEDS: EZETIMIBE 10MG TAB PO SCH (08:49)
[2017-06-24] MEDS: FUROSEMIDE INJ 80 MG in SYRINGE 0 ML IV SCH ×2 (08:49→16:55)
[2017-06-24] MEDS: INSULIN ASPART 100 UNITS/ML 3 ML PEN SC SCH ×4 (08:54→21:00)
--- NOTE | 2017-06-24 09:09 | Progress Note ---
Progress Note Date of Service Jun 24, 2017. Progress Note Upper endoscopy to be performed by Dr. Ferris on Sunday. Please call with any additional questions or concerns over the weekend. These ensure that the patient is n.p.o. at midnight.
--- NOTE | 2017-06-24 11:00 | Nephrology Progress Note ---
Nephrology Progress Note Date of Service Jun 24, 2017. Chief Complaint ESRD Subjective Ms. Dominguez was seen & examined in her hospital room this morning. She had just taken an antiemetic. She reports continued RUQ discomfort. Review of Systems Constitutional: No fever Cardiovascular: No chest pain Respiratory: No dyspnea at rest Abdomen: No pain, No nausea, No vomiting Extremities: No leg edema A complete review of systems was performed. Pertinent positives are noted above. All other systems are negative. Vital Signs Last 8 Hrs Date Time Temp Pulse Resp B/P (MAP) Pulse Ox O2 Delivery O2 Flow Rate FiO2 06/24/17 10:37 Room Air 06/24/17 07:27 36.5 61 20 163/55 (91) 94 Room Air Last Recorded Weight Weight (Kilograms): 72.500 Physical Exam General Appearance: no apparent distress Head: normocephalic, atraumatic Eyes: PERRL, EOMI Neck: no adenopathy Respiratory/Chest: lungs clear Cardiovascular: regular rate, rhythm Abdomen/GI: + pertinent finding (RUQ tenderness) Extremities/Musculoskelatal: no calf tenderness, + swelling (1+ pretibial pitting edema) Neurologic/Psych: alert, oriented x 3 Family History No pertinent family history Social History Smoking Status: Never smoker Drug Use: none Marital Status: Housing Status: lives with family Occupation: retired Laboratory Results Past 24 Hours 06/24/17 05:40 Red Blood Count 2.92, Mean Corpuscular Volume 91.4, Mean Corpuscular Hemoglobin 29.5, Mean Corpuscular Hemoglobin Concent 32.2, Mean Platelet Volume 8.6, Neutrophils (%) (Auto) 63.8, Lymphocytes (%) (Auto) 11.7, Monocytes (%) (Auto) 13.0, Eosinophils (%) (Auto) 9.6, Basophils (%) (Auto) 1.4, Neutrophils # (Auto ) 5.55, Lymphocytes # (Auto) 1.02, Monocytes # (Auto) 1.13, Eosinophils # (Auto ) 0.83, Basophils # (Auto) 0.12 06/24/17 05:40 Test 06/23/17 11:24 06/23/17 17:10 06/23/17 20:32 06/24/17 05:40 Bedside Glucose 93 mg/dl (70-90) 101 mg/dl (70-90) 205 mg/dl (70-90) White Blood Count 8.69 K/uL (4.8-10.8) Red Blood Count 2.92 M/uL (4.2-5.4) Hemoglobin 8.6 g/dL (12.0-16.0) Hematocrit 26.7 % (37-47) Mean Corpuscular Volume 91.4 fL (80-100) Mean Corpuscular Hemoglobin 29.5 pg (25-34) Mean Corpuscular Hemoglobin Concent 32.2 g/dl (32-36) Platelet Count 151 K/uL (130-400) Mean Platelet Volume 8.6 fL (7.4-10.4) Neutrophils (%) (Auto) 63.8 % Lymphocytes (%) (Auto) 11.7 % Monocytes (%) (Auto) 13.0 % Eosinophils (%) (Auto) 9.6 % Basophils (%) (Auto) 1.4 % Neutrophils # (Auto) 5.55 K/uL (1.4-6.5) Lymphocytes # (Auto) 1.02 K/uL (1.2-3.4) Monocytes # (Auto) 1.13 K/uL (0.11-0.59) Eosinophils # (Auto) 0.83 K/uL (0-0.5) Basophils # (Auto) 0.12 K/uL (0-0.2) RDW Standard Deviation 60.7 fL (36.4-46.3) RDW Coefficient of Variation 18.1 % (11.5-14.5) Immature Granulocyte % (Auto) 0.5 % Immature Granulocyte # (Auto) 0.04 K/uL (0.00-0.02) Red Blood Cell Morphology Unremarkable Anion Gap 7.0 mmol/L (3-11) Est Creatinine Clear Calc Drug Dose 14.0 ml/min Estimated GFR () 19.1 Estimated GFR (Non- 16.5 BUN/Creatinine Ratio 8.0 (10-20) Calcium Level 7.8 mg/dl (8.5-10.1) Total Bilirubin 0.4 mg/dl (0.2-1) Aspartate Amino Transf (AST/SGOT) 9 U/L (15-37) Alanine Aminotransferase (ALT/SGPT) 7 U/L (12-78) Alkaline Phosphatase 42 U/L (45-117) Total Protein 5.0 gm/dl (6.4-8.2) Albumin 2.0 gm/dl (3.4-5.0) Globulin 3.0 gm/dl (2.5-4.0) Albumin/Globulin Ratio 0.7 (0.9-2) Test 06/24/17 07:36 Bedside Glucose 119 mg/dl (70-90) Allergies Coded Allergies: Carbamazepine (Verified Allergy, Intermediate, RASH, 06/10/17) Erythromycin (Verified Allergy, Intermediate, RASH, 06/10/17) Carvedilol (Verified Adverse Reaction, Intermediate, DIZZINESS, VISUAL DISTURBANCES, 06/10/17) Statins (Verified Adverse Reaction, Intermediate, MUSCLE ACHES, 06/10/17) Medications Current Inpatient Medications Medications (Trade) Dose Ordered Sig/Haja Route Start Time Stop Time Status Last Admin Dose Admin Heparin Sodium (Porcine) (Heparin Sq 5000 Unit/0.5ml) 5,000 unit Q8H SQ 06/11/17 06:00 07/11/17 05:59 Future Hold 06/19/17 21:02 5,000 UNIT Acetaminophen (Tylenol Tab) 650 mg Q4H PRN PO 06/11/17 01:00 07/11/17 00:59 Al Hydrox/Mg Hydrox/Simethicone (Maalox Max Susp) 15 ml Q4H PRN PO 06/11/17 01:00 07/11/17 00:59 Magnesium Hydroxide (Milk Of Magnesia Susp) 30 ml Q12H PRN PO 06/11/17 01:00 07/11/17 00:59 06/21/17 08:21 30 ML Ondansetron HCl (Zofran Inj) 4 mg Q6H PRN IV 06/11/17 01:00 07/11/17 00:59 06/24/17 07:34 4 MG Nitroglycerin (Nitrostat Tab) 0.4 mg UD PRN SL 06/11/17 01:00 07/11/17 00:59 Morphine Sulfate (MoRPHine SULFATE INJ) 2 mg Q30M PRN IV 06/11/17 01:00 06/25/17 00:59 Polyethylene (Miralax Powder Packet) 17 gm DAILY PRN PO 06/11/17 01:00 07/11/17 00:59 Alprazolam (Xanax Tab) 0.5 mg HS PO 06/11/17 21:00 07/11/17 20:59 06/23/17 21:47 0.5 MG Aspirin (Ecotrin Tab) 81 mg QAM PO 06/11/17 09:00 07/11/17 08:59 Future Hold 06/19/17 07:55 81 MG EZETIMIBE (Zetia Tab) 10 mg QAM PO 06/11/17 09:00 07/11/17 08:59 06/24/17 08:49 10 MG Hydralazine HCl (Apresoline Tab) 100 mg TID PO 06/11/17 09:00 07/11/17 08:59 06/24/17 08:48 100 MG Isosorbide Mononitrate (Imdur Ext Rel Tab) 60 mg BID PO 06/11/17 09:00 07/11/17 08:59 06/24/17 08:48 60 MG Labetalol HCl (Normodyne Tab) 200 mg BID PO 06/11/17 09:00 07/11/17 08:59 06/24/17 08:48 200 MG Quetiapine Fumarate (seroQUEL TAB) 25 mg HS PO 06/11/17 21:00 07/11/17 20:59 06/23/17 21:39 25 MG Miscellaneous Information (Order Awaiting Action) 1 ea QS N/A 06/11/17 08:00 07/11/17 07:59 Miscellaneous Information (Order Awaiting Action) 1 ea QS N/A 06/11/17 08:00 07/11/17 07:59 Glucose (Glucose 40% Gel) 15-30 GRAMS 15 GRAMS... UD PRN PO 06/11/17 03:45 07/11/17 03:44 Glucose (Glucose Chew Tab) 4-8 Tablets 4 Tabl... UD PRN PO 06/11/17 03:45 07/11/17 03:44 Dextrose (Dextrose 50% 50ML Syringe) 25-50ML OF 50% DW IV FOR... UD PRN IV 06/11/17 03:45 07/11/17 03:44 Glucagon (Glucagon Inj) 1 mg UD PRN SQ 06/11/17 03:45 07/11/17 03:44 Felodipine (Plendil Tabcr) 10 mg HS PO 06/11/17 21:00 07/11/17 20:59 06/23/17 21:39 10 MG Enteral Nutritional Formula (Boost Glucose Control) 1 can BIDM PO 06/12/17 08:00 07/12/17 07:59 06/24/17 08:48 1 CAN Guaifenesin/ Dextromethorphan (Robitussin-Dm Syrup) 5 ml Q6H PRN PO 06/12/17 10:45 07/12/17 10:44 06/20/17 07:57 5 ML Lactobacillus Acidophilus (Floranex Tab) 4 tab TIDM PO 06/13/17 08:00 07/13/17 07:59 06/24/17 08:48 4 TAB Furosemide 80 mg/ Syringe 8 ml @ 4 mls/min BID17 IV 06/13/17 21:00 07/13/17 20:59 06/24/17 08:49 4 MLS/MIN Oxycodone/ Acetaminophen (Percocet 5-325mg Tab) 1 tab Q4H PRN PO 06/18/17 12:00 07/02/17 11:59 06/19/17 07:56 1 TAB Insulin Glargine (Lantus Solostar Pen) 8 units QPM SC 06/19/17 21:00 07/19/17 20:59 06/23/17 21:47 8 UNITS Insulin Aspart (novoLOG ASPART) SLIDING SCALE G... ACHS SC 06/20/17 06:30 07/20/17 06:29 06/24/17 08:54 1 UNITS Albuterol/ Ipratropium (Duoneb) 3 ml Q4 PRN INH 06/19/17 12:30 07/19/17 12:29 Promethazine HCl (Phenergan Tab) 12.5 mg Q6H PRN PO 06/21/17 12:00 07/21/17 11:59 06/23/17 21:37 12.5 MG Epoetin Arik (Procrit Inj) 10,000 units MoWeFr@0600 IV 06/22/17 06:00 07/22/17 05:59 Future hold 06/22/17 12:27 10,000 UNITS Metronidazole 500 mg/Prmx 100 ml @ 100 mls/hr Q8H IV 06/22/17 15:00 07/02/17 14:59 06/24/17 06:54 100 MLS/HR Ciprofloxacin/ Dextrose 200 mg/ Prmx 100 ml @ 100 mls/hr Q12H IV 06/23/17 04:00 07/03/17 03:59 06/24/17 04:34 100 MLS/HR Famotidine (Pepcid Tab) 20 mg DAILY PO 06/23/17 08:00 07/23/17 07:59 06/24/17 08:48 20 MG Hydralazine HCl (HydrALAZINE INJ) 20 mg Q6 PRN IV. 06/23/17 19:15 07/23/17 19:14 Heparin Sodium (Porcine) (No Heparin In Dialysis) 1 ea TODAY@0600 N/A 06/25/17 06:00 06/25/17 18:00 Epoetin Arik 8000 units/Syringe 0.4 ml @ 1 mls/min TODAY@0600 IV. 06/25/17 06:00 06/25/17 18:00 Impression (1) Acute renal insufficiency (2) Chronic kidney disease (3) CHF exacerbation (4) Weakness Nava is a 82-year-old female with ESRD, HTN, AODM, CHF and ASCVD s/p CABG. She was admitted to the hospital with CHF exacerbation, pleural effusion and hypertensive urgency. 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 R brachiocephalic AVF placed by Dr. Montemayor . TDC placed 06/19/17. Nava had her 1st HD treatment 06/19/17 Possible acute cholecystitis Recommendations ESRD: -- Volume status and electrolyte balance are acceptable. No acute indication for HD today -- Will schedule next HD for 06/25. I have spoken to HD staffing operations manager. They will coordinate dialysis w/ endoscopy. HD orders entered into EMR -- Maintain sodium restriction but avoid additional dietary restrictions at this time ANEMIA: -- Will provide PONCE w/ HD HTN: -- Acceptable control GI: -- Possible cholecystitis. Await further surgical and GI input
[2017-06-24] MEDS: PROMETHAZINE HCL 25 MG TAB PO PRN ×2 (12:13→21:17)
[2017-06-24] MEDS ORDERED: PROMETHAZINE HCL 25 MG TAB PO PRN (12:15)
--- NOTE | 2017-06-24 16:14 | Progress Note ---
Subjective Date of Service: Jun 24, 2017. Subjective Pt evaluation today including: conversation w/ patient, physical exam, chart review, lab review, review of studies, review of inpatient medication list Sitting in chair, still have some dry heaves and nausea, no vomiting was able to eat 50% of meal, was feeling nausea after eating, generally feeling okay Problem List Medical Problems: (1) Acute kidney failure Status: Acute (2) Cholelithiasis Status: Acute (3) Dehydration Status: Acute (4) HTN (hypertension) Status: Acute (5) Hypertensive emergency Status: Acute (6) Influenza Status: Acute (7) Nausea and vomiting Status: Acute (8) Proteinuria Status: Acute Review of Systems Constitutional: + weakness, + fatigue, No fever, No chills, No sweats, No weight loss, No problem reported Eyes: No worsening of vision, No eye pain, No redness, No discharge, No diplopia ENT: No hearing loss, No unusual epistaxis, No nasal symptoms, No sore throat, No tinnitus, No dental problems, No trouble swallowing Respiratory: No cough, No sputum, No wheezing, No shortness of breath, No dyspnea on exertion, No dyspnea at rest, No hemoptysis Cardiac: No chest pain, No orthopnea, No PND, No edema, No claudication, No palpitations Abdomen: + nausea, No pain, No vomiting, No diarrhea, No constipation Musculoskeletal: No joint pain, No muscle pain, No swelling, No calf pain Female : No dysuria, No urinary frequency, No hematuria, No incontinence, No abnormal vaginal bleeding, No vaginal discharge Neurologic: No memory loss, No paralysis, No weakness, No numbness/tingling, No vertigo, No balance problems Psychiatric: No depression symptoms, No anhedonism, No anxiety, No insomnia, No substance abuse Heme: No abnormal bleeding/bruising, No clotting problems, No swollen lymph nodes, No night sweats Endo: No fatigue, No excessive thirst, No excessive urination Skin: No rash, No itch, No new/changing skin lesions, No color change, No bleeding Objective Vital Signs Date Time Temp Pulse Resp B/P (MAP) Pulse Ox O2 Delivery O2 Flow Rate FiO2 06/24/17 15:26 36.4 60 18 175/61 (99) 95 Room Air 06/24/17 13:32 60 185/64 (104) 06/24/17 10:37 Room Air 06/24/17 07:27 36.5 61 20 163/55 (91) 94 Room Air 06/24/17 00:40 Room Air 06/24/17 00:00 36.4 88 20 145/82 (103) 95 Room Air 06/23/17 18:04 170/56 (94) 06/23/17 16:17 36.6 65 20 183/51 (95) 94 Room Air Physical Exam General Appearance: WD/WN, no apparent distress, + obese, + pertinent finding ( Pale, chronically ill looking,) Eyes: normal inspection, PERRL, EOMI, sclerae normal ENT: normal ENT inspection, hearing grossly normal, pharynx normal Neck: supple, no adenopathy, thyroid normal, no JVD, no carotid bruits, trachea midline Respiratory/Chest: chest non-tender, normal breath sounds, no respiratory distress, no accessory muscle use, + decreased breath sounds, + crackles (left lover lung ), + pertinent finding (Right chest wall PermCath in place local has no erythema no tenderness) Cardiovascular: regular rate, rhythm, no gallop, no JVD, no murmur Abdomen: normal bowel sounds, non tender, soft, no organomegaly, no pulsatile mass Extremities: normal range of motion, non-tender, normal inspection, no pedal edema, no calf tenderness, normal capillary refill, pelvis stable, + swelling ( Bilateral lower extremity 1-2+ edema, hands less swollen) 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, no motor/sensory deficits, alert, normal mood/affect, oriented x 3 Skin: normal color, warm/dry, no rash Lymphatic: no adenopathy Laboratory Results Last 24 Hours Test 06/23/17 17:10 06/23/17 20:32 06/24/17 05:40 06/24/17 07:36 Bedside Glucose 101 mg/dl 205 mg/dl 119 mg/dl White Blood Count 8.69 K/uL Red Blood Count 2.92 M/uL Hemoglobin 8.6 g/dL Hematocrit 26.7 % Mean Corpuscular Volume 91.4 fL Mean Corpuscular Hemoglobin 29.5 pg Mean Corpuscular Hemoglobin Concent 32.2 g/dl Platelet Count 151 K/uL Mean Platelet Volume 8.6 fL Neutrophils (%) (Auto) 63.8 % Lymphocytes (%) (Auto) 11.7 % Monocytes (%) (Auto) 13.0 % Eosinophils (%) (Auto) 9.6 % Basophils (%) (Auto) 1.4 % Neutrophils # (Auto) 5.55 K/uL Lymphocytes # (Auto) 1.02 K/uL Monocytes # (Auto) 1.13 K/uL Eosinophils # (Auto) 0.83 K/uL Basophils # (Auto) 0.12 K/uL RDW Standard Deviation 60.7 fL RDW Coefficient of Variation 18.1 % Immature Granulocyte % (Auto) 0.5 % Immature Granulocyte # (Auto) 0.04 K/uL Red Blood Cell Morphology Unremarkable Sodium Level 136 mmol/L Potassium Level 3.2 mmol/L Chloride Level 101 mmol/L Carbon Dioxide Level 28 mmol/L Anion Gap 7.0 mmol/L Blood Urea Nitrogen 21 mg/dl Creatinine 2.59 mg/dl Est Creatinine Clear Calc Drug Dose 14.0 ml/min Estimated GFR () 19.1 Estimated GFR (Non- 16.5 BUN/Creatinine Ratio 8.0 Random Glucose 120 mg/dl Calcium Level 7.8 mg/dl Total Bilirubin 0.4 mg/dl Aspartate Amino Transf (AST/SGOT) 9 U/L Alanine Aminotransferase (ALT/SGPT) 7 U/L Alkaline Phosphatase 42 U/L Total Protein 5.0 gm/dl Albumin 2.0 gm/dl Globulin 3.0 gm/dl Albumin/Globulin Ratio 0.7 Test 06/24/17 11:51 Bedside Glucose 164 mg/dl Assessment and Plan 82 y/o F readmitted June 11, 2017 with UTI, ARF, now is on dialysis, and possible abscess acute cholecystitis Acute on chronic kidney failure, is possible end-stage now is on dialysis, nephrology arranged Sunday dialysis, has been stable for 2-3 days SOB secondary to acute on chronic diastolic CHF exacerbation: fluid overload has been improving from dialysis Bronchitis: Stable and better Acute cholecystitis with right upper quadrant pain and nausea, related to stable ultrasound report support has acute cholecystitis, other differential diagnosis for nausea include uremia, new on dialysis, cholecystitis, gastritis or gastric ulceration disease Surgeon feel patient may not have acute cholecystitis, recommended GI consult looking for other source caused of nausea and right upper quadrant pain GI see the patient, agreed to have Dr. Ferris to arrange EGD next week, I have ordered a HIDA scan as well which can be done on Sunday I agree with surgeon that patient currently is not a good candidate for a surgical procedure Abnormal UA: UCx w/ yeast- Diflucan 100 mg daily x7 days- last day of treatment 06/19 , Weakness and poor appetite, severe protein malnutrition, his consult dietitian Anemia: Stable, s/p 1 U PRBCs on 06/14, Epogen 00907 units given on 06/12/2017 and JUAN PABLO being treated with Venofer as per Nephrology, Has bed available in [facility], however hold discharge to [facility], follow-up surgery and GI input In previous admission on 05/19 with PNM and medication-induced agranulocytosis/ neutropenia 05/19, DCd 05/26 to a rehab facility. Clear liquid diet advance as tolerated Code status: LEVEL I, FULL , planning to go to rehab after evaluation of nausea patient by EGD and HIDA scanning, I called patient's daughter left message for her to call me back Continued [facility] stay due to: multiple IV medications needed Discharge planning: rehab hospital
[2017-06-24] MEDS: ALPRAZOLAM 0.5 MG TAB PO SCH (21:17)
[2017-06-24] MEDS: FELODIPINE 5 MG TABCR PO SCH (21:19)
[2017-06-24] MEDS: QUETIAPINE FUMARATE 25 MG TAB PO SCH (21:20)
[2017-06-24] MEDS: INSULIN GLARGINE SOLOSTAR 100 UNITS/ML 3 ML PEN SC SCH (21:21)
[2017-06-25] VITALS (18 sets, daily range): BP systolic 144–219; BP diastolic 53–76; PULSE 60–77; TEMP 36.5–37.2; O2SAT 93–94
[2017-06-25] MEDS: CIPROFLOXACIN / D5W 200 MG in PREMIXED IN D5W 100 ML IV SCH ×2 (04:14→16:30)
[2017-06-25] MEDS ORDERED: EPOETIN ALFA 10,000 UNITS/ML VIAL IV. ONE (06:00)
[2017-06-25] MEDS ORDERED: EPOETIN ALFA INJ 8,000 UNITS in SYRINGE 0 ML IV. SCH (06:00)
[2017-06-25] MEDS: METRONIDAZOLE / NSS 500 MG in PREMIXED NSS 100 ML IV SCH ×3 (06:11→21:54)
[2017-06-25] MEDS: ONDANSETRON INJ 2 MG/ML 2 ML VIAL IV PRN (07:45)
[2017-06-25] MEDS: FUROSEMIDE INJ 80 MG in SYRINGE 0 ML IV SCH ×2 (07:46→16:30)
[2017-06-25] MEDS: INSULIN ASPART 100 UNITS/ML 3 ML PEN SC SCH ×4 (07:53→21:00)
[2017-06-25] MEDS: BOOST GLUCOSE CONTROL PO SCH ×2 (07:54→17:00)
[2017-06-25] MEDS: LACTOBACILLUS ACIDOPHILUS (FLORANEX) TAB PO SCH ×3 (07:55→16:30)
--- NOTE | 2017-06-25 08:41 | Progress Note ---
Progress Note Date of Service Jun 25, 2017. Progress Note RUE basilic v AVF with excellent thrill/bruit. Mild local edema and old resolving ecchymosis noted. + distal pulse and brisk cap refill. Discussed planning second stage basilic v transposition in future. Will see in office in 2-3 weeks with an US to eval whether AVF is matured for BVT. ALso discussed wtih pts' daughter, Maren, at pt's request.
--- NOTE | 2017-06-25 10:57 | Hospitalist Progress Note ---
Hospitalist Progress Note Date of Service Jun 25, 2017. Subjective Pt evaluation today including: conversation w/ patient, physical exam, lab review, review of studies, review of inpatient medication list Voiding: no voiding problems Patient receiving dialysis, tolerating well. Has poor PO intake due to nausea. +abdominal pain mid/RUQ. +diarrhea. Does have a h/o c.diff. Per RN, concerning for c.diff. Planning for EGD today after dialysis. HIDA scan is scheduled for tomorrow. Planning for [facility] at discharge. Patient denies any fever, chills, sweats, lightheadedness, dizziness, vision changes, CP, palpitations, edema, SOB, wheezing, cough, vomiting, urinary symptoms, melena, numbness/tingling, weakness, muscle/joint pain, anxiety/ depression, active bleeding, or new skin discoloration/changes. Medications Current Inpatient Medications Medications (Trade) Dose Ordered Sig/Haja Route Start Time Stop Time Status Last Admin Dose Admin Heparin Sodium (Porcine) (Heparin Sq 5000 Unit/0.5ml) 5,000 unit Q8H SQ 06/11/17 06:00 07/11/17 05:59 Future Hold 06/19/17 21:02 5,000 UNIT Acetaminophen (Tylenol Tab) 650 mg Q4H PRN PO 06/11/17 01:00 07/11/17 00:59 Al Hydrox/Mg Hydrox/Simethicone (Maalox Max Susp) 15 ml Q4H PRN PO 06/11/17 01:00 07/11/17 00:59 Magnesium Hydroxide (Milk Of Magnesia Susp) 30 ml Q12H PRN PO 06/11/17 01:00 07/11/17 00:59 06/21/17 08:21 30 ML Ondansetron HCl (Zofran Inj) 4 mg Q6H PRN IV 06/11/17 01:00 07/11/17 00:59 06/25/17 07:45 4 MG Nitroglycerin (Nitrostat Tab) 0.4 mg UD PRN SL 06/11/17 01:00 07/11/17 00:59 Polyethylene (Miralax Powder Packet) 17 gm DAILY PRN PO 06/11/17 01:00 07/11/17 00:59 Alprazolam (Xanax Tab) 0.5 mg HS PO 06/11/17 21:00 07/11/17 20:59 06/24/17 21:17 0.5 MG Aspirin (Ecotrin Tab) 81 mg QAM PO 06/11/17 09:00 07/11/17 08:59 Future Hold 06/19/17 07:55 81 MG EZETIMIBE (Zetia Tab) 10 mg QAM PO 06/11/17 09:00 07/11/17 08:59 06/24/17 08:49 10 MG Hydralazine HCl (Apresoline Tab) 100 mg TID PO 06/11/17 09:00 07/11/17 08:59 06/24/17 21:20 100 MG Isosorbide Mononitrate (Imdur Ext Rel Tab) 60 mg BID PO 06/11/17 09:00 07/11/17 08:59 06/24/17 21:19 60 MG Labetalol HCl (Normodyne Tab) 200 mg BID PO 06/11/17 09:00 07/11/17 08:59 06/24/17 21:19 200 MG Quetiapine Fumarate (seroQUEL TAB) 25 mg HS PO 06/11/17 21:00 07/11/17 20:59 06/24/17 21:20 25 MG Miscellaneous Information (Order Awaiting Action) 1 ea QS N/A 06/11/17 08:00 07/11/17 07:59 Miscellaneous Information (Order Awaiting Action) 1 ea QS N/A 06/11/17 08:00 07/11/17 07:59 Glucose (Glucose 40% Gel) 15-30 GRAMS 15 GRAMS... UD PRN PO 06/11/17 03:45 07/11/17 03:44 Glucose (Glucose Chew Tab) 4-8 Tablets 4 Tabl... UD PRN PO 06/11/17 03:45 07/11/17 03:44 Dextrose (Dextrose 50% 50ML Syringe) 25-50ML OF 50% DW IV FOR... UD PRN IV 06/11/17 03:45 07/11/17 03:44 Glucagon (Glucagon Inj) 1 mg UD PRN SQ 06/11/17 03:45 07/11/17 03:44 Felodipine (Plendil Tabcr) 10 mg HS PO 06/11/17 21:00 07/11/17 20:59 06/24/17 21:19 10 MG Enteral Nutritional Formula (Boost Glucose Control) 1 can BIDM PO 06/12/17 08:00 07/12/17 07:59 06/24/17 16:54 1 CAN Guaifenesin/ Dextromethorphan (Robitussin-Dm Syrup) 5 ml Q6H PRN PO 06/12/17 10:45 07/12/17 10:44 06/20/17 07:57 5 ML Lactobacillus Acidophilus (Floranex Tab) 4 tab TIDM PO 06/13/17 08:00 07/13/17 07:59 06/24/17 16:55 4 TAB Furosemide 80 mg/ Syringe 8 ml @ 4 mls/min BID17 IV 06/13/17 21:00 07/13/17 20:59 06/25/17 07:46 4 MLS/MIN Oxycodone/ Acetaminophen (Percocet 5-325mg Tab) 1 tab Q4H PRN PO 06/18/17 12:00 07/02/17 11:59 06/19/17 07:56 1 TAB Insulin Glargine (Lantus Solostar Pen) 8 units QPM SC 06/19/17 21:00 07/19/17 20:59 06/24/17 21:21 8 UNITS Insulin Aspart (novoLOG ASPART) SLIDING SCALE G... ACHS SC 06/20/17 06:30 07/20/17 06:29 06/24/17 13:28 2 UNITS Albuterol/ Ipratropium (Duoneb) 3 ml Q4 PRN INH 06/19/17 12:30 07/19/17 12:29 Epoetin Arik (Procrit Inj) 10,000 units MoWeFr@0600 IV 06/22/17 06:00 07/22/17 05:59 Future hold 06/22/17 12:27 10,000 UNITS Metronidazole 500 mg/Prmx 100 ml @ 100 mls/hr Q8H IV 06/22/17 15:00 07/02/17 14:59 06/25/17 06:11 100 MLS/HR Ciprofloxacin/ Dextrose 200 mg/ Prmx 100 ml @ 100 mls/hr Q12H IV 3/17/18 04:00 07/03/17 03:59 06/25/17 04:14 100 MLS/HR Famotidine (Pepcid Tab) 20 mg DAILY PO 06/23/17 08:00 07/23/17 07:59 06/24/17 08:48 20 MG Hydralazine HCl (HydrALAZINE INJ) 20 mg Q6 PRN IV. 06/23/17 19:15 07/23/17 19:14 Heparin Sodium (Porcine) (No Heparin In Dialysis) 1 ea TODAY@0600 N/A 06/25/17 06:00 06/25/17 18:00 Epoetin Arik 8000 units/Syringe 0.4 ml @ 1 mls/min TODAY@0600 IV. 06/25/17 06:00 06/25/17 18:00 Promethazine HCl (Phenergan Tab) 12.5 mg Q6H PRN PO 06/24/17 12:15 07/24/17 12:14 06/24/17 21:17 12.5 MG Objective Vital Signs Date Time Temp Pulse Resp B/P (MAP) Pulse Ox O2 Delivery O2 Flow Rate FiO2 06/25/17 10:00 61 151/57 06/25/17 09:45 62 158/63 06/25/17 09:30 62 163/59 06/25/17 09:15 60 162/62 06/25/17 09:00 61 159/60 06/25/17 08:49 Room Air 06/25/17 08:46 65 163/67 06/25/17 08:39 37.1 65 164/62 (96) 06/25/17 07:19 36.5 62 16 161/55 (90) 93 06/25/17 00:55 Room Air 06/24/17 23:06 36.7 60 18 122/55 (77) 93 Room Air 06/24/17 21:20 164/58 (93) 06/24/17 16:03 93 Room Air 06/24/17 15:26 36.4 60 18 175/61 (99) 95 Room Air 06/24/17 13:32 60 185/64 (104) 06/24/17 10:37 Room Air Physical Exam General Appearance: no apparent distress, + obese, + pertinent finding (O2 NC ) Eyes: normal inspection, PERRL ENT: hearing grossly normal Neck: supple Respiratory/Chest: lungs clear, no respiratory distress, no accessory muscle use, + pertinent finding (R TDC- bruising noted around site) Cardiovascular: regular rate, rhythm Abdomen: normal bowel sounds, soft, + tenderness (RUQ ttp) Extremities: no calf tenderness, + swelling (+1 pitting edema of bilateral lower extremities ) Neurologic/Psychiatric: alert, normal mood/affect, oriented x 3 Skin: warm/dry, no rash, + pallor Laboratory Results Last 24 Hours Test 06/24/17 11:51 06/24/17 16:47 06/24/17 20:09 06/25/17 07:29 Bedside Glucose 164 mg/dl 129 mg/dl 175 mg/dl 127 mg/dl Assessment and Plan 82 y/o F Hx CKD IV, CAD, HTN, HPL, anemia, DM II, chronic diastolic CHF, 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 Recent admissions for UTI, ARF, Cdiff. Admitted 05/19 with PNM and medication-induced agranulocytosis/neutropenia 05/19, DCd 05/26 to a rehab facility. [facility] with a persistent productive cough, SOB, nausea, weakness and a poor appetite. She denies CP, vomiting or dysuria. She is afebrile on arrival. Her initial SBP was over 200. She is mildly hypoxic. A CXR is consistent with vascular congestion but could not r/o superimposed PNM. Nausea, ?acute cholecystitis vs gastritis vs ulcer vs other cause: - Phenergan PRN, Zofran PRN, Pepcid daily - Abdominal US 06/22- reports cholelithiasis/acute cholecystitis- IV Cipro + Flagyl - Planning for EGD today after dialysis - HIDA scan scheduled for tomorrow- will make NPO after midnight - General surgery and GI consulted, appreciate recommendations Diarrhea, h/o c.diff: - Will check c.diff for completeness; however, on IV Flagyl TID x4 days now - Continue Probiotics - If no c.diff, will add anti-diarrheal agent SOB secondary to acute on chronic diastolic CHF exacerbation- RESOLVED: - IV Lasix 80 mg BID and Metolazone 5 mg BID- Metolazone discontinued per nephrology - Monitor I&Os and daily- negative 7.6L - ECHO 04/05/17 reviewed - CXR on 06/14: Persistent bilateral pleural effusions with bibasilar airspace opacities likely atelectatic- encourage incentive spirometry Bronchitis- STABLE: - O2 protocol, wean as tolerated - DuoNeb PRN for SOB/wheezing - Speech therapy consulted- no evidence of aspiration - No abx, no leukocytosis, and afebrile Abnormal UA: UCx w/ yeast- Diflucan 100 mg daily x7 days- completed Weakness and poor appetite, severe protein malnutrition: - 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 Montemayor- f/u outpatient in 2-3 weeks - CM to setup outpatient dialysis on MWF - Hepatitis panel- negative Anemia: - Hgb 8.6 yesterday - s/p 1 U PRBCs on 06/14 - Epogen and JUAN PABLO being treated with Venofer as per Nephrology - Follow H&H- transfuse PRN for hgb <7.0-8.0 CAD, HLD- STABLE: - Cont ASA 81 mg daily, Labetalol 200 mg BID, Imdur 60 mg BID, Felodipine 5 mg PO HS - STATIN INTOLERANT- continue Zetia HTN- STABLE: - Hydralazine 100 mg TID, Imdur 60 mg BID, Labetalol 200 mg BID - IV Hydralazine PRN - IV diuretics as above T2DM- CONTROLLED: Lantus 8 u HS, BSG ACHS and ISS Insomnia: Continue Xanax 0.5 mg HS and Seroquel 25 mg HS GI prophylaxis: Pepcid daily DVT prophylaxis: Heparin SQ TID held due to upcoming interventions Code status: LEVEL I, FULL Dispo: Hoping for [facility] at discharge- PT/OT and CM following
[2017-06-25] MEDS: LABETALOL HCL 200 MG TAB PO SCH ×3 (12:18→21:49)
[2017-06-25] MEDS: ISOSORBIDE MONONITRATE 60 MG TABCR PO SCH ×2 (12:18→21:49)
--- NOTE | 2017-06-25 13:31 | Gastroenterology Progress Note ---
Progress Note Date of Service: Jun 25, 2017 Subjective Pt evaluation today including: conversation w/ patient, physical exam, chart review, lab review Nava continues to have intermittent nausea and abdominal pain. Medications Current Inpatient Medications Medications (Trade) Dose Ordered Sig/Haja Route Start Time Stop Time Status Last Admin Dose Admin Heparin Sodium (Porcine) (Heparin Sq 5000 Unit/0.5ml) 5,000 unit Q8H SQ 06/11/17 06:00 07/11/17 05:59 Future Hold 06/19/17 21:02 5,000 UNIT Acetaminophen (Tylenol Tab) 650 mg Q4H PRN PO 06/11/17 01:00 07/11/17 00:59 Al Hydrox/Mg Hydrox/Simethicone (Maalox Max Susp) 15 ml Q4H PRN PO 06/11/17 01:00 07/11/17 00:59 Magnesium Hydroxide (Milk Of Magnesia Susp) 30 ml Q12H PRN PO 06/11/17 01:00 07/11/17 00:59 06/21/17 08:21 30 ML Ondansetron HCl (Zofran Inj) 4 mg Q6H PRN IV 06/11/17 01:00 07/11/17 00:59 06/25/17 07:45 4 MG Nitroglycerin (Nitrostat Tab) 0.4 mg UD PRN SL 06/11/17 01:00 07/11/17 00:59 Polyethylene (Miralax Powder Packet) 17 gm DAILY PRN PO 06/11/17 01:00 07/11/17 00:59 Alprazolam (Xanax Tab) 0.5 mg HS PO 06/11/17 21:00 07/11/17 20:59 06/24/17 21:17 0.5 MG Aspirin (Ecotrin Tab) 81 mg QAM PO 06/11/17 09:00 07/11/17 08:59 Future Hold 06/19/17 07:55 81 MG EZETIMIBE (Zetia Tab) 10 mg QAM PO 06/11/17 09:00 07/11/17 08:59 06/24/17 08:49 10 MG Hydralazine HCl (Apresoline Tab) 100 mg TID PO 06/11/17 09:00 07/11/17 08:59 06/24/17 21:20 100 MG Isosorbide Mononitrate (Imdur Ext Rel Tab) 60 mg BID PO 06/11/17 09:00 07/11/17 08:59 06/24/17 21:19 60 MG Labetalol HCl (Normodyne Tab) 200 mg BID PO 06/11/17 09:00 07/11/17 08:59 06/24/17 21:19 200 MG Quetiapine Fumarate (seroQUEL TAB) 25 mg HS PO 06/11/17 21:00 07/11/17 20:59 06/24/17 21:20 25 MG Miscellaneous Information (Order Awaiting Action) 1 ea QS N/A 06/11/17 08:00 07/11/17 07:59 Miscellaneous Information (Order Awaiting Action) 1 ea QS N/A 06/11/17 08:00 07/11/17 07:59 Glucose (Glucose 40% Gel) 15-30 GRAMS 15 GRAMS... UD PRN PO 06/11/17 03:45 07/11/17 03:44 Glucose (Glucose Chew Tab) 4-8 Tablets 4 Tabl... UD PRN PO 06/11/17 03:45 07/11/17 03:44 Dextrose (Dextrose 50% 50ML Syringe) 25-50ML OF 50% DW IV FOR... UD PRN IV 06/11/17 03:45 07/11/17 03:44 Glucagon (Glucagon Inj) 1 mg UD PRN SQ 06/11/17 03:45 07/11/17 03:44 Felodipine (Plendil Tabcr) 10 mg HS PO 06/11/17 21:00 07/11/17 20:59 06/24/17 21:19 10 MG Enteral Nutritional Formula (Boost Glucose Control) 1 can BIDM PO 06/12/17 08:00 07/12/17 07:59 06/24/17 16:54 1 CAN Guaifenesin/ Dextromethorphan (Robitussin-Dm Syrup) 5 ml Q6H PRN PO 06/12/17 10:45 07/12/17 10:44 06/20/17 07:57 5 ML Lactobacillus Acidophilus (Floranex Tab) 4 tab TIDM PO 06/13/17 08:00 07/13/17 07:59 06/24/17 16:55 4 TAB Furosemide 80 mg/ Syringe 8 ml @ 4 mls/min BID17 IV 06/13/17 21:00 07/13/17 20:59 06/25/17 07:46 4 MLS/MIN Oxycodone/ Acetaminophen (Percocet 5-325mg Tab) 1 tab Q4H PRN PO 06/18/17 12:00 07/02/17 11:59 06/19/17 07:56 1 TAB Insulin Glargine (Lantus Solostar Pen) 8 units QPM SC 06/19/17 21:00 07/19/17 20:59 06/24/17 21:21 8 UNITS Insulin Aspart (novoLOG ASPART) SLIDING SCALE G... ACHS SC 06/20/17 06:30 07/20/17 06:29 06/24/17 13:28 2 UNITS Albuterol/ Ipratropium (Duoneb) 3 ml Q4 PRN INH 06/19/17 12:30 07/19/17 12:29 Epoetin Arik (Procrit Inj) 10,000 units MoWeFr@0600 IV 06/22/17 06:00 07/22/17 05:59 Future hold 06/22/17 12:27 10,000 UNITS Metronidazole 500 mg/Prmx 100 ml @ 100 mls/hr Q8H IV 06/22/17 15:00 07/02/17 14:59 06/25/17 06:11 100 MLS/HR Ciprofloxacin/ Dextrose 200 mg/ Prmx 100 ml @ 100 mls/hr Q12H IV 06/23/17 04:00 07/03/17 03:59 06/25/17 04:14 100 MLS/HR Famotidine (Pepcid Tab) 20 mg DAILY PO 06/23/17 08:00 07/23/17 07:59 06/24/17 08:48 20 MG Hydralazine HCl (HydrALAZINE INJ) 20 mg Q6 PRN IV. 06/23/17 19:15 07/23/17 19:14 Heparin Sodium (Porcine) (No Heparin In Dialysis) 1 ea TODAY@0600 N/A 06/25/17 06:00 06/25/17 18:00 Epoetin Arik 8000 units/Syringe 0.4 ml @ 1 mls/min TODAY@0600 IV. 06/25/17 06:00 06/25/17 18:00 06/25/17 10:37 1 MLS/MIN Promethazine HCl (Phenergan Tab) 12.5 mg Q6H PRN PO 06/24/17 12:15 07/24/17 12:14 06/24/17 21:17 12.5 MG Objective Vital Signs Date Time Temp Pulse Resp B/P (MAP) Pulse Ox O2 Delivery O2 Flow Rate FiO2 06/25/17 13:07 37.2 20 166/83 (110) 95 Room Air 06/25/17 12:22 37.2 71 163/63 (96) 06/25/17 11:30 64 144/56 06/25/17 11:15 61 153/53 06/25/17 11:00 69 162/56 06/25/17 10:45 72 167/65 06/25/17 10:30 61 149/54 06/25/17 10:15 60 148/57 06/25/17 10:00 61 151/57 06/25/17 09:45 62 158/63 06/25/17 09:30 62 163/59 06/25/17 09:15 60 162/62 06/25/17 09:00 61 159/60 06/25/17 08:49 Room Air 06/25/17 08:46 65 163/67 06/25/17 08:39 37.1 65 164/62 (96) 06/25/17 07:19 36.5 62 16 161/55 (90) 93 06/25/17 00:55 Room Air 06/24/17 23:06 36.7 60 18 122/55 (77) 93 Room Air 06/24/17 21:20 164/58 (93) 06/24/17 16:03 93 Room Air 06/24/17 15:26 36.4 60 18 175/61 (99) 95 Room Air 06/24/17 13:32 60 185/64 (104) Physical Exam General Appearance: + pertinent finding (Chronic ill-appearing) Respiratory/Chest: normal breath sounds Cardiovascular: regular rate, rhythm Abdomen: non tender, soft Laboratory Results Last 24 Hours Test 06/24/17 16:47 06/24/17 20:09 06/25/17 07:29 06/25/17 11:42 Bedside Glucose 129 mg/dl 175 mg/dl 127 mg/dl 98 mg/dl Assessment and Plan Assessment: 82 yo CF with continued nausea and intermittent abdominal pain. Plan: Proceed with EGD.
[2017-06-25] MEDS ORDERED: PROPOFOL IV EMULSION 10 MG/ML 20 ML VIAL IV ONE (13:55)
[2017-06-25] MEDS ORDERED: LIDOCAINE HCL 2% 2 ML VIAL (20MG/ML) ONE (13:55)
--- NOTE | 2017-06-25 13:56 | GI REPORT ---
Procedure Date: 06/25/2017 1:20 PM Procedure: Upper GI endoscopy Indications: Epigastric abdominal pain, Nausea Medicines: Monitored Anesthesia Care Complications: No immediate complications. Estimated Blood Loss: Estimated blood loss: none. Procedure: Pre-Anesthesia Assessment: - Prior to the procedure, a History and Physical was performed, and patient medications and allergies were reviewed. The patient's tolerance of previous anesthesia was also reviewed. The risks and benefits of the procedure and the sedation options and risks were discussed with the patient. All questions were answered, and informed consent was obtained. Prior Anticoagulants: The patient has taken aspirin, last dose was 5 days prior to procedure. ASA Grade Assessment: IV - A patient with severe systemic disease that is a constant threat to life. After reviewing the risks and benefits, the patient was deemed in satisfactory condition to undergo the procedure. After obtaining informed consent, the endoscope was passed under direct vision. Throughout the procedure, the patient's blood pressure, pulse, and oxygen saturations were monitored continuously. The Scope was introduced through the mouth, and advanced to the second part of duodenum. The upper GI endoscopy was accomplished without difficulty. The patient tolerated the procedure well. Findings: The esophagus was normal. The entire examined stomach was normal. Biopsies were taken with a cold forceps for histology. The examined duodenum was normal. Impression: - Normal esophagus. - Normal stomach. Biopsied. - Normal examined duodenum. Recommendation: - Resume previous diet. - Continue present medications. - Await pathology results. - Return to primary care physician as previously scheduled. Anival Ferris, DO 06/25/2017 1:55:40 PM This report has been signed electronically. Note Initiated On: 06/25/2017 1:20 PM I attest to the content of the Intraoperative Record and orders documented therein, exceptions below
[2017-06-25] MEDS: FAMOTIDINE 20 MG TAB PO SCH (15:03)
[2017-06-25] MEDS: EZETIMIBE 10MG TAB PO SCH (15:03)
--- NOTE | 2017-06-25 15:05 | Anesthesiology Progress Note ---
Anesthesia Post Op Note Date & Time Jun 25, 2017 at 15:05 Vital Signs Pain Intensity: 0.0 Vital Signs Past 12 Hours Date Time Temp Pulse Resp B/P (MAP) Pulse Ox O2 Delivery O2 Flow Rate FiO2 06/25/17 14:29 73 20 204/73 (116) 96 Room Air 06/25/17 14:14 73 20 220/66 (117) 98 Room Air 06/25/17 13:59 73 16 189/61 (103) 98 Room Air 06/25/17 13:07 37.2 20 166/83 (110) 95 Room Air 06/25/17 12:22 37.2 71 163/63 (96) 06/25/17 11:30 64 144/56 06/25/17 11:15 61 153/53 06/25/17 11:00 69 162/56 06/25/17 10:45 72 167/65 06/25/17 10:30 61 149/54 06/25/17 10:15 60 148/57 06/25/17 10:00 61 151/57 06/25/17 09:45 62 158/63 06/25/17 09:30 62 163/59 06/25/17 09:15 60 162/62 06/25/17 09:00 61 159/60 06/25/17 08:49 Room Air 06/25/17 08:46 65 163/67 06/25/17 08:39 37.1 65 164/62 (96) 06/25/17 07:19 36.5 62 16 161/55 (90) 93 Notes Mental Status: alert / awake / arousable, participated in evaluation Pt Amnestic to Procedure: Yes Nausea / Vomiting: adequately controlled Pain: adequately controlled Airway Patency, RR, SpO2: stable & adequate BP & HR: stable & adequate Hydration State: stable & adequate Anesthetic Complications: no major complications apparent
--- NOTE | 2017-06-25 15:32 | Nephrology Progress Note ---
Nephrology Progress Note Date of Service Jun 25, 2017. Chief Complaint ESRD Subjective Ms. Dominguez was seen & examined while on HD this morning. Her IJ THC was running A -->A. She has continued RUQ abdominal discomfort. She was awaiting EGD this afternoon. Review of Systems Constitutional: No fever Cardiovascular: No chest pain Respiratory: No dyspnea at rest Abdomen: + pain, + nausea Extremities: + leg edema A complete review of systems was performed. Pertinent positives are noted above. All other systems are negative. Vital Signs Last 8 Hrs Date Time Temp Pulse Resp B/P (MAP) Pulse Ox O2 Delivery O2 Flow Rate FiO2 06/25/17 14:29 73 20 204/73 (116) 96 Room Air 06/25/17 14:14 73 20 220/66 (117) 98 Room Air 06/25/17 13:59 73 16 189/61 (103) 98 Room Air 06/25/17 13:07 37.2 20 166/83 (110) 95 Room Air 06/25/17 12:22 37.2 71 163/63 (96) 06/25/17 11:30 64 144/56 06/25/17 11:15 61 153/53 06/25/17 11:00 69 162/56 06/25/17 10:45 72 167/65 06/25/17 10:30 61 149/54 06/25/17 10:15 60 148/57 06/25/17 10:00 61 151/57 06/25/17 09:45 62 158/63 06/25/17 09:30 62 163/59 06/25/17 09:15 60 162/62 06/25/17 09:00 61 159/60 06/25/17 08:49 Room Air 06/25/17 08:46 65 163/67 06/25/17 08:39 37.1 65 164/62 (96) I & O 24-Hour Column 06/26/17 08:00 Intake Total 100 ml Output Total 3000 ml Balance -2900 ml Last Recorded Weight Weight (Kilograms): 71.700 Physical Exam General Appearance: + mild distress Head: normocephalic, atraumatic Eyes: PERRL Neck: no adenopathy Respiratory/Chest: lungs clear, no respiratory distress Cardiovascular: regular rate, rhythm Abdomen/GI: + pertinent finding (hypoactive BS. Mildly tender RUQ) Extremities/Musculoskelatal: + swelling (1+ pretibial pitting edema) Neurologic/Psych: alert, oriented x 3 Family History No pertinent family history Social History Smoking Status: Never smoker Drug Use: none Marital Status: Housing Status: lives with family Occupation: retired Laboratory Results Past 24 Hours Test 06/24/17 16:47 06/24/17 20:09 06/25/17 07:29 06/25/17 11:42 Bedside Glucose 129 mg/dl (70-90) 175 mg/dl (70-90) 127 mg/dl (70-90) 98 mg/dl (70-90) Allergies Coded Allergies: Carbamazepine (Verified Allergy, Intermediate, RASH, 06/10/17) Erythromycin (Verified Allergy, Intermediate, RASH, 06/10/17) Carvedilol (Verified Adverse Reaction, Intermediate, DIZZINESS, VISUAL DISTURBANCES, 06/10/17) Statins (Verified Adverse Reaction, Intermediate, MUSCLE ACHES, 06/10/17) Medications Current Inpatient Medications Medications (Trade) Dose Ordered Sig/Haja Route Start Time Stop Time Status Last Admin Dose Admin Heparin Sodium (Porcine) (Heparin Sq 5000 Unit/0.5ml) 5,000 unit Q8H SQ 06/11/17 06:00 07/11/17 05:59 Future Hold 06/19/17 21:02 5,000 UNIT Acetaminophen (Tylenol Tab) 650 mg Q4H PRN PO 06/11/17 01:00 07/11/17 00:59 Al Hydrox/Mg Hydrox/Simethicone (Maalox Max Susp) 15 ml Q4H PRN PO 06/11/17 01:00 07/11/17 00:59 Magnesium Hydroxide (Milk Of Magnesia Susp) 30 ml Q12H PRN PO 06/11/17 01:00 07/11/17 00:59 06/21/17 08:21 30 ML Ondansetron HCl (Zofran Inj) 4 mg Q6H PRN IV 06/11/17 01:00 07/11/17 00:59 06/25/17 07:45 4 MG Nitroglycerin (Nitrostat Tab) 0.4 mg UD PRN SL 06/11/17 01:00 07/11/17 00:59 Polyethylene (Miralax Powder Packet) 17 gm DAILY PRN PO 06/11/17 01:00 07/11/17 00:59 Alprazolam (Xanax Tab) 0.5 mg HS PO 06/11/17 21:00 07/11/17 20:59 06/24/17 21:17 0.5 MG Aspirin (Ecotrin Tab) 81 mg QAM PO 06/11/17 09:00 07/11/17 08:59 Future Hold 06/19/17 07:55 81 MG EZETIMIBE (Zetia Tab) 10 mg QAM PO 06/11/17 09:00 07/11/17 08:59 06/25/17 15:03 10 MG Hydralazine HCl (Apresoline Tab) 100 mg TID PO 06/11/17 09:00 07/11/17 08:59 06/25/17 15:04 100 MG Isosorbide Mononitrate (Imdur Ext Rel Tab) 60 mg BID PO 06/11/17 09:00 07/11/17 08:59 06/24/17 21:19 60 MG Labetalol HCl (Normodyne Tab) 200 mg BID PO 06/11/17 09:00 07/11/17 08:59 06/24/17 21:19 200 MG Quetiapine Fumarate (seroQUEL TAB) 25 mg HS PO 06/11/17 21:00 07/11/17 20:59 06/24/17 21:20 25 MG Miscellaneous Information (Order Awaiting Action) 1 ea QS N/A 06/11/17 08:00 07/11/17 07:59 Miscellaneous Information (Order Awaiting Action) 1 ea QS N/A 06/11/17 08:00 07/11/17 07:59 Glucose (Glucose 40% Gel) 15-30 GRAMS 15 GRAMS... UD PRN PO 06/11/17 03:45 07/11/17 03:44 Glucose (Glucose Chew Tab) 4-8 Tablets 4 Tabl... UD PRN PO 06/11/17 03:45 07/11/17 03:44 Dextrose (Dextrose 50% 50ML Syringe) 25-50ML OF 50% DW IV FOR... UD PRN IV 06/11/17 03:45 07/11/17 03:44 Glucagon (Glucagon Inj) 1 mg UD PRN SQ 06/11/17 03:45 07/11/17 03:44 Felodipine (Plendil Tabcr) 10 mg HS PO 06/11/17 21:00 07/11/17 20:59 06/24/17 21:19 10 MG Enteral Nutritional Formula (Boost Glucose Control) 1 can BIDM PO 06/12/17 08:00 07/12/17 07:59 06/24/17 16:54 1 CAN Guaifenesin/ Dextromethorphan (Robitussin-Dm Syrup) 5 ml Q6H PRN PO 06/12/17 10:45 07/12/17 10:44 06/20/17 07:57 5 ML Lactobacillus Acidophilus (Floranex Tab) 4 tab TIDM PO 06/13/17 08:00 07/13/17 07:59 06/24/17 16:55 4 TAB Furosemide 80 mg/ Syringe 8 ml @ 4 mls/min BID17 IV 06/13/17 21:00 07/13/17 20:59 06/25/17 07:46 4 MLS/MIN Oxycodone/ Acetaminophen (Percocet 5-325mg Tab) 1 tab Q4H PRN PO 06/18/17 12:00 07/02/17 11:59 06/19/17 07:56 1 TAB Insulin Glargine (Lantus Solostar Pen) 8 units QPM SC 06/19/17 21:00 07/19/17 20:59 06/24/17 21:21 8 UNITS Insulin Aspart (novoLOG ASPART) SLIDING SCALE G... ACHS SC 06/20/17 06:30 07/20/17 06:29 06/24/17 13:28 2 UNITS Albuterol/ Ipratropium (Duoneb) 3 ml Q4 PRN INH 06/19/17 12:30 07/19/17 12:29 Epoetin Arik (Procrit Inj) 10,000 units MoWeFr@0600 IV 06/22/17 06:00 07/22/17 05:59 Future hold 06/22/17 12:27 10,000 UNITS Metronidazole 500 mg/Prmx 100 ml @ 100 mls/hr Q8H IV 06/22/17 15:00 07/02/17 14:59 06/25/17 15:04 100 MLS/HR Ciprofloxacin/ Dextrose 200 mg/ Prmx 100 ml @ 100 mls/hr Q12H IV 06/23/17 04:00 07/03/17 03:59 06/25/17 04:14 100 MLS/HR Famotidine (Pepcid Tab) 20 mg DAILY PO 06/23/17 08:00 07/23/17 07:59 06/25/17 15:03 20 MG Hydralazine HCl (HydrALAZINE INJ) 20 mg Q6 PRN IV. 06/23/17 19:15 07/23/17 19:14 Heparin Sodium (Porcine) (No Heparin In Dialysis) 1 ea TODAY@0600 N/A 06/25/17 06:00 06/25/17 18:00 Epoetin Arik 8000 units/Syringe 0.4 ml @ 1 mls/min TODAY@0600 IV. 06/25/17 06:00 06/25/17 18:00 06/25/17 10:37 1 MLS/MIN Promethazine HCl (Phenergan Tab) 12.5 mg Q6H PRN PO 06/24/17 12:15 07/24/17 12:14 06/24/17 21:17 12.5 MG Impression (1) Acute renal insufficiency (2) Chronic kidney disease (3) CHF exacerbation (4) Weakness Nava is a 82-year-old female with ESRD, HTN, AODM, CHF and ASCVD s/p CABG. She was admitted to the hospital with CHF exacerbation, pleural effusion and hypertensive urgency. 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 R brachiocephalic AVF placed by Dr. Montemayor . TDC placed 06/19/17. Nava had her 1st HD treatment 06/19/17 Possible acute cholecystitis Recommendations ESRD: -- Medically stable on HD this am. No change to current HD prescription -- Maintain sodium restriction but avoid additional dietary restrictions at this time ANEMIA: -- Will provide PONCE w/ HD HTN: -- Acceptable control GI: -- Possible cholecystitis. Await further surgical and GI input
[2017-06-25] MEDS: QUETIAPINE FUMARATE 25 MG TAB PO SCH (21:49)
[2017-06-25] MEDS: FELODIPINE 5 MG TABCR PO SCH (21:49)
[2017-06-25] MEDS: ALPRAZOLAM 0.5 MG TAB PO SCH (21:49)
[2017-06-25] MEDS: INSULIN GLARGINE SOLOSTAR 100 UNITS/ML 3 ML PEN SC SCH (21:50)
[2017-06-25] MEDS: PROMETHAZINE HCL 25 MG TAB PO PRN (21:53)
[2017-06-26] MEDS: CIPROFLOXACIN / D5W 200 MG in PREMIXED IN D5W 100 ML IV SCH ×2 (04:16→16:47)
[2017-06-26 06:14] LABS: HEMATOCRIT 29.8 % (37-47); HEMOGLOBIN 9.6 g/dL (12.0-16.0); MEAN CELL VOLUME 92.8 fL (80-100); MEAN CORPUSCULAR HEMOGLOBIN 29.9 pg (25-34); MEAN CORPUSCULAR HGB CONC 32.2 g/dl (32-36); MEAN PLATELET VOLUME 8.9 fL (7.4-10.4); PLATELET COUNT 104 K/uL (130-400); RED CELL DISTRIBUTION WIDTH CV 18.9 % (11.5-14.5); RED CELL DISTRIBUTION WIDTH SD 61.3 fL (36.4-46.3); WHITE BLOOD COUNT 7.19 K/uL (4.8-10.8)
[2017-06-26] MEDS: INSULIN ASPART 100 UNITS/ML 3 ML PEN SC SCH ×4 (06:30→20:30)
[2017-06-26] MEDS: METRONIDAZOLE / NSS 500 MG in PREMIXED NSS 100 ML IV SCH ×3 (06:37→23:30)
[2017-06-26 06:43] LABS: CALCIUM 7.7 mg/dl (8.5-10.1); CREATININE 2.16 mg/dl (0.60-1.20); PHOSPHORUS 1.8 mg/dl (2.5-4.9); POTASSIUM 3.3 mmol/L (3.5-5.1)
[2017-06-26 07:20] VITALS: BP 174/56; PULSE 60; TEMP 36.5; O2SAT 95
--- NOTE | 2017-06-26 09:06 | Hospitalist Progress Note ---
Hospitalist Progress Note Date of Service Jun 26, 2017. Subjective Pt evaluation today including: conversation w/ patient, physical exam, chart review, lab review, review of studies Pain: None PO Intake: Fair Voiding: no voiding problems The patient was seen and examined this morning. Pt reports doing fairly well. She recently returned from [facility] and understands she has a poorly functioning gallbladder. She also states "I know I'm not a good case for surgery". She feels her nausea has been relatively well controlled, and seems that a bland diet also helps with this. Breathing is much improved compared to last week when I had initially seen her Dialysis has been going well, no complaints. Additional Comments: Constitutional: No fever, sweats or chills Eyes: No diplopia, no worsening or blurred vision ENT: normal hearing, no trouble swallowing Respiratory: No cough, sputum, dyspnea at rest or on exertion, on room air. Cardiovascular: No chest pain, tightness or palpitations Abdomen: See HPI. Musculoskeletal: No joint pain, calf pain, + improved swelling Neurologic: No weakness, numbness/tingling, or balance problems Psychiatric: No anxiety or depression Skin: No rash or itch Objective Vital Signs Date Time Temp Pulse Resp B/P (MAP) Pulse Ox O2 Delivery O2 Flow Rate FiO2 06/26/17 07:20 36.5 60 16 174/56 (95) 95 Room Air 06/26/17 00:00 Room Air 06/25/17 23:30 36.6 60 18 149/54 (85) 94 Room Air 06/25/17 21:13 77 215/76 (122) 06/25/17 15:51 36.7 76 18 219/60 (112) 94 Room Air 06/25/17 15:20 Room Air 06/25/17 14:29 73 20 204/73 (116) 96 Room Air 06/25/17 14:14 73 20 220/66 (117) 98 Room Air 06/25/17 13:59 73 16 189/61 (103) 98 Room Air 06/25/17 13:07 37.2 20 166/83 (110) 95 Room Air 06/25/17 12:22 37.2 71 163/63 (96) 06/25/17 11:30 64 144/56 06/25/17 11:15 61 153/53 06/25/17 11:00 69 162/56 06/25/17 10:45 72 167/65 06/25/17 10:30 61 149/54 06/25/17 10:15 60 148/57 06/25/17 10:00 61 151/57 06/25/17 09:45 62 158/63 06/25/17 09:30 62 163/59 06/25/17 09:15 60 162/62 Physical Exam Notes: General: awake, alert, no apparent distress, obese Head: Normocephalic, atraumatic ENT: PERRL, EOMI, no pharyngeal exudate, mucous membranes moist Chest: + Right chest wall permacath in place, no signs of surrounding erythema, + ecchymosis surrounding site , + faint crackles bibasilarly, diminished breath sounds in the right base compared to the left, on room air Cardiac: Regular rate and rhythm, + soft systolic murmur, no JVD, normal peripheral pulses, good capillary refill Abdominal: NABS x 4 quadrants, soft, nontender to palpation, no rebound, guarding or tenderness Extremities: Normal inspection, 2+ BLE pitting edema, no erythema, calfs nontender to palpation Psych: Normal mood and affect Neuro: AAO x 3, speech is clear, no peripheral sensory deficits Laboratory Results Last 24 Hours Test 06/25/17 11:42 06/25/17 16:35 06/25/17 20:14 06/26/17 05:19 Bedside Glucose 98 mg/dl 99 mg/dl 134 mg/dl White Blood Count 7.19 K/uL Red Blood Count 3.21 M/uL Hemoglobin 9.6 g/dL Hematocrit 29.8 % Mean Corpuscular Volume 92.8 fL Mean Corpuscular Hemoglobin 29.9 pg Mean Corpuscular Hemoglobin Concent 32.2 g/dl RDW Standard Deviation 61.3 fL RDW Coefficient of Variation 18.9 % Platelet Count 104 K/uL Mean Platelet Volume 8.9 fL Sodium Level 136 mmol/L Potassium Level 3.3 mmol/L Chloride Level 102 mmol/L Carbon Dioxide Level 28 mmol/L Anion Gap 6.0 mmol/L Blood Urea Nitrogen 15 mg/dl Creatinine 2.16 mg/dl Est Creatinine Clear Calc Drug Dose 16.6 ml/min Estimated GFR () 23.8 Estimated GFR (Non- 20.5 BUN/Creatinine Ratio 6.8 Random Glucose 98 mg/dl Calcium Level 7.7 mg/dl Phosphorus Level 1.8 mg/dl Magnesium Level 1.8 mg/dl Test 06/26/17 07:27 Bedside Glucose 92 mg/dl Assessment and Plan 82 y/o F Hx CKD IV, CAD, HTN, HPL, anemia, DM II, chronic diastolic CHF, 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 Recent admissions for UTI, ARF, Cdiff. Admitted 05/19 with PNM and medication-induced agranulocytosis/neutropenia 05/19, DCd 05/26 to a rehab facility. [facility] productive cough, SOB, nausea, weakness and a poor appetite. She denies CP, vomiting or dysuria. She is afebrile on arrival. Her initial SBP was over 200. She is mildly hypoxic. A CXR is consistent with vascular congestion but could not r/o superimposed PNM. Nausea, Poorly functioning Gallbladder - HIDA with EF of 6%. - s/p HIDA scan on 06/26 - possibly will need this removed however the pt is a poor surgical candidate given her hx of CAD, Chronic CHF, volume status and CKD. Pt report nausea is relatively well controlled. Will need GI and gen surg to formally determine if she would be able to undergo surgery. - Phenergan PRN, Zofran PRN, Pepcid daily - Abdominal US 06/22- reports cholelithiasis/acute cholecystitis- IV Cipro + Flagyl - EGD completed on 06/25 and was normal, biopsies obtained. - General surgery and GI consulted, appreciate recs Diarrhea, h/o c.diff: - cont IV Flagyl TID - stools are more formed now, only 1 BM today. - Consider immodium vs questran if needed. - Continue Probiotics SOB secondary to acute on chronic diastolic CHF exacerbation- RESOLVED: - IV Lasix 80 mg BID and Metolazone 5 mg BID- Metolazone discontinued per nephrology - Monitor I&Os /daily weights, today -10.7 L - ECHO 04/05/17 reviewed - CXR on 06/14: Persistent bilateral pleural effusions with bibasilar airspace opacities likely atelectatic- encourage incentive spirometry - likely improving with breath sounds present in the LLL, still diminished in the RLL. 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 Montemayor- f/u outpatient in 2-3 weeks - CM to setup outpatient dialysis on MWF - planned for dc to [facility] when stable - Hepatitis panel- negative Anemia: - Hgb 9.6 today, improving - s/p 1 U PRBCs on 06/14 - Epogen and JUAN PABLO being treated with Venofer as per Nephrology - Follow H&H- transfuse PRN for hgb <7.0-8.0 CAD, HLD- STABLE: - Cont ASA 81 mg daily, Labetalol 200 mg BID, Imdur 60 mg BID, Felodipine 5 mg PO HS - statin intolerant- continue Zetia HTN- STABLE: - Hydralazine 100 mg TID, Imdur 60 mg BID, Labetalol 200 mg BID - IV Hydralazine PRN - IV diuretics as above T2DM- CONTROLLED: Lantus 8 u HS, BSG ACHS and ISS Insomnia: Continue Xanax 0.5 mg HS and Seroquel 25 mg HS GI prophylaxis: Pepcid daily DVT prophylaxis: Heparin SQ TID held due to upcoming interventions Code status: LEVEL I, FULL Dispo: Plan for [facility] at discharge, insurance auth will need updated- PT/OT and CM following
[2017-06-26] MEDS ORDERED: SINCALIDE INJ 1.4 MCG in SODIUM CHLORIDE 0.9% 100ML 100 ML IV SCH (09:15)
--- NOTE | 2017-06-26 10:21 | DIAGNOSTIC IMAGING REPORT ---
HEPATOBILIARY EF IMAGING HISTORY: Pain. Nausea. acute cholecystitis? COMPARISON: None. TECHNIQUE: Immediately following the intravenous administration of 5.5 mCi Tc-99m Choletec, dynamic anterior abdominal imaging pre/post 1.4 mcg of Kinevac was performed. FINDINGS: Uniform hepatic tracer accumulation is shown. Prompt intrahepatic biliary excretion is seen. The gallbladder, common bile duct, and small bowel are all visualized by 20 minutes. This appearance represents the normal sequence of biliary excretion. The gallbladder ejection fraction following administration of Kinevac was 6 % (normal >35%). IMPRESSION: 1. No evidence for cystic duct obstruction. 2. Gallbladder ejection fraction calculated to be 6 %. This is considered abnormally low. The above report was generated using voice recognition software. It may contain grammatical, syntax or spelling errors. Electronically signed by: Juan C Ruiz M.D. 06/26/2017 10:20 AM Dictated Date/Time: 06/26/2017 10:18 AM
[2017-06-26] MEDS: LABETALOL HCL 200 MG TAB PO SCH ×2 (10:23→20:24)
[2017-06-26] MEDS: FUROSEMIDE INJ 80 MG in SYRINGE 0 ML IV SCH ×2 (10:23→16:48)
[2017-06-26] MEDS: LACTOBACILLUS ACIDOPHILUS (FLORANEX) TAB PO SCH ×3 (10:23→16:48)
[2017-06-26] MEDS: FAMOTIDINE 20 MG TAB PO SCH (10:24)
[2017-06-26] MEDS: EZETIMIBE 10MG TAB PO SCH (11:02)
[2017-06-26] MEDS: ISOSORBIDE MONONITRATE 60 MG TABCR PO SCH ×2 (11:02→20:24)
[2017-06-26] MEDS: BOOST GLUCOSE CONTROL PO SCH ×2 (11:03→17:00)
--- NOTE | 2017-06-26 11:36 | Nephrology Progress Note ---
Nephrology Progress Note Date of Service Jun 26, 2017. Chief Complaint ESRD Subjective Ms. Dominguez was seen & examined in her hospital room this morning. She has just returned from HIDA scan. She complains of persistent RUQ discomfort. Review of Systems Constitutional: No fever Cardiovascular: No chest pain Abdomen: + pain Extremities: No leg edema A complete review of systems was performed. Pertinent positives are noted above. All other systems are negative. Vital Signs Last 8 Hrs Date Time Temp Pulse Resp B/P (MAP) Pulse Ox O2 Delivery O2 Flow Rate FiO2 06/26/17 08:00 Room Air 06/26/17 07:20 36.5 60 16 174/56 (95) 95 Room Air Last Recorded Weight Weight (Kilograms): 71.700 Physical Exam General Appearance: no apparent distress Head: normocephalic, atraumatic Eyes: PERRL, EOMI Neck: no adenopathy Respiratory/Chest: lungs clear, no respiratory distress Cardiovascular: regular rate, rhythm Abdomen/GI: soft, + pertinent finding (RUQ tender. No guarding. hypoactive bowel sounds) Extremities/Musculoskelatal: + swelling (2+ pretibial pitting edema) Neurologic/Psych: alert, oriented x 3 Family History No pertinent family history Social History Smoking Status: Never smoker Drug Use: none Marital Status: Housing Status: lives with family Occupation: retired Laboratory Results Past 24 Hours 06/26/17 05:19 06/26/17 05:19 Test 06/25/17 11:42 06/25/17 16:35 06/25/17 20:14 06/26/17 05:19 Bedside Glucose 98 mg/dl (70-90) 99 mg/dl (70-90) 134 mg/dl (70-90) Red Blood Count 3.21 M/uL (4.2-5.4) Mean Corpuscular Volume 92.8 fL (80-100) Mean Corpuscular Hemoglobin 29.9 pg (25-34) Mean Corpuscular Hemoglobin Concent 32.2 g/dl (32-36) RDW Standard Deviation 61.3 fL (36.4-46.3) RDW Coefficient of Variation 18.9 % (11.5-14.5) Mean Platelet Volume 8.9 fL (7.4-10.4) Anion Gap 6.0 mmol/L (3-11) Est Creatinine Clear Calc Drug Dose 16.6 ml/min Estimated GFR () 23.8 Estimated GFR (Non- 20.5 BUN/Creatinine Ratio 6.8 (10-20) Calcium Level 7.7 mg/dl (8.5-10.1) Phosphorus Level 1.8 mg/dl (2.5-4.9) Magnesium Level 1.8 mg/dl (1.8-2.4) Test 06/26/17 07:27 Bedside Glucose 92 mg/dl (70-90) Allergies Coded Allergies: Carbamazepine (Verified Allergy, Intermediate, RASH, 06/10/17) Erythromycin (Verified Allergy, Intermediate, RASH, 06/10/17) Carvedilol (Verified Adverse Reaction, Intermediate, DIZZINESS, VISUAL DISTURBANCES, 06/10/17) Statins (Verified Adverse Reaction, Intermediate, MUSCLE ACHES, 06/10/17) Medications Current Inpatient Medications Medications (Trade) Dose Ordered Sig/Haja Route Start Time Stop Time Status Last Admin Dose Admin Heparin Sodium (Porcine) (Heparin Sq 5000 Unit/0.5ml) 5,000 unit Q8H SQ 06/11/17 06:00 07/11/17 05:59 Future Hold 06/19/17 21:02 5,000 UNIT Acetaminophen (Tylenol Tab) 650 mg Q4H PRN PO 06/11/17 01:00 07/11/17 00:59 Al Hydrox/Mg Hydrox/Simethicone (Maalox Max Susp) 15 ml Q4H PRN PO 06/11/17 01:00 07/11/17 00:59 Magnesium Hydroxide (Milk Of Magnesia Susp) 30 ml Q12H PRN PO 06/11/17 01:00 07/11/17 00:59 06/21/17 08:21 30 ML Ondansetron HCl (Zofran Inj) 4 mg Q6H PRN IV 06/11/17 01:00 07/11/17 00:59 06/25/17 07:45 4 MG Nitroglycerin (Nitrostat Tab) 0.4 mg UD PRN SL 06/11/17 01:00 07/11/17 00:59 Polyethylene (Miralax Powder Packet) 17 gm DAILY PRN PO 06/11/17 01:00 07/11/17 00:59 Alprazolam (Xanax Tab) 0.5 mg HS PO 06/11/17 21:00 07/11/17 20:59 06/25/17 21:49 0.5 MG Aspirin (Ecotrin Tab) 81 mg QAM PO 06/11/17 09:00 07/11/17 08:59 Future Hold 06/19/17 07:55 81 MG EZETIMIBE (Zetia Tab) 10 mg QAM PO 06/11/17 09:00 07/11/17 08:59 06/26/17 11:02 10 MG Hydralazine HCl (Apresoline Tab) 100 mg TID PO 06/11/17 09:00 07/11/17 08:59 06/26/17 10:24 100 MG Isosorbide Mononitrate (Imdur Ext Rel Tab) 60 mg BID PO 06/11/17 09:00 07/11/17 08:59 06/26/17 11:02 60 MG Labetalol HCl (Normodyne Tab) 200 mg BID PO 06/11/17 09:00 07/11/17 08:59 06/26/17 10:23 200 MG Quetiapine Fumarate (seroQUEL TAB) 25 mg HS PO 06/11/17 21:00 07/11/17 20:59 06/25/17 21:49 25 MG Miscellaneous Information (Order Awaiting Action) 1 ea QS N/A 06/11/17 08:00 07/11/17 07:59 Miscellaneous Information (Order Awaiting Action) 1 ea QS N/A 06/11/17 08:00 07/11/17 07:59 Glucose (Glucose 40% Gel) 15-30 GRAMS 15 GRAMS... UD PRN PO 06/11/17 03:45 07/11/17 03:44 Glucose (Glucose Chew Tab) 4-8 Tablets 4 Tabl... UD PRN PO 06/11/17 03:45 07/11/17 03:44 Dextrose (Dextrose 50% 50ML Syringe) 25-50ML OF 50% DW IV FOR... UD PRN IV 06/11/17 03:45 07/11/17 03:44 Glucagon (Glucagon Inj) 1 mg UD PRN SQ 06/11/17 03:45 07/11/17 03:44 Felodipine (Plendil Tabcr) 10 mg HS PO 06/11/17 21:00 07/11/17 20:59 06/25/17 21:49 10 MG Enteral Nutritional Formula (Boost Glucose Control) 1 can BIDM PO 06/12/17 08:00 07/12/17 07:59 06/25/17 17:00 1 CAN Guaifenesin/ Dextromethorphan (Robitussin-Dm Syrup) 5 ml Q6H PRN PO 06/12/17 10:45 07/12/17 10:44 06/20/17 07:57 5 ML Lactobacillus Acidophilus (Floranex Tab) 4 tab TIDM PO 06/13/17 08:00 07/13/17 07:59 06/26/17 10:23 4 TAB Furosemide 80 mg/ Syringe 8 ml @ 4 mls/min BID17 IV 06/13/17 21:00 07/13/17 20:59 06/26/17 10:23 4 MLS/MIN Oxycodone/ Acetaminophen (Percocet 5-325mg Tab) 1 tab Q4H PRN PO 06/18/17 12:00 07/02/17 11:59 06/19/17 07:56 1 TAB Insulin Glargine (Lantus Solostar Pen) 8 units QPM SC 06/19/17 21:00 07/19/17 20:59 06/25/17 21:50 8 UNITS Insulin Aspart (novoLOG ASPART) SLIDING SCALE G... ACHS SC 06/20/17 06:30 07/20/17 06:29 06/25/17 18:00 3 UNITS Albuterol/ Ipratropium (Duoneb) 3 ml Q4 PRN INH 06/19/17 12:30 07/19/17 12:29 Epoetin Arik (Procrit Inj) 10,000 units MoWeFr@0600 IV 06/22/17 06:00 07/22/17 05:59 Future hold 06/22/17 12:27 10,000 UNITS Metronidazole 500 mg/Prmx 100 ml @ 100 mls/hr Q8H IV 06/22/17 15:00 07/02/17 14:59 06/26/17 06:37 100 MLS/HR Ciprofloxacin/ Dextrose 200 mg/ Prmx 100 ml @ 100 mls/hr Q12H IV 06/23/17 04:00 07/03/17 03:59 06/26/17 04:16 100 MLS/HR Famotidine (Pepcid Tab) 20 mg DAILY PO 06/23/17 08:00 07/23/17 07:59 06/26/17 10:24 20 MG Hydralazine HCl (HydrALAZINE INJ) 20 mg Q6 PRN IV. 06/23/17 19:15 07/23/17 19:14 Promethazine HCl (Phenergan Tab) 12.5 mg Q6H PRN PO 06/24/17 12:15 07/24/17 12:14 06/25/17 21:53 12.5 MG Impression (1) Acute renal insufficiency (2) Chronic kidney disease (3) CHF exacerbation (4) Weakness Nava is a 82-year-old female with ESRD, HTN, AODM, CHF and ASCVD s/p CABG. She was admitted to the hospital with CHF exacerbation, pleural effusion and hypertensive urgency. 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 R brachiocephalic AVF placed by Dr. Montemayor . TDC placed 06/19/17. Nava had her 1st HD treatment 06/19/17 Possible acute cholecystitis Recommendations ESRD: -- Volume status & electrolyte balance are acceptable at this time. Will schedule HD for am -- Maintain sodium restriction but avoid additional dietary restrictions at this time ANEMIA: -- Will provide PONCE w/ HD HTN: -- Acceptable control GI: -- HIDA scan report reviewed: low EF of 6 %. Possible cholecystitis. Await further surgical and GI input
[2017-06-26 14:29] VITALS: BP 182/55
[2017-06-26 15:44] VITALS: BP 174/68; PULSE 60; TEMP 36.7; O2SAT 95
[2017-06-26 20:20] VITALS: BP 213/71; PULSE 82; TEMP 36.6; O2SAT 96
[2017-06-26] MEDS: FELODIPINE 5 MG TABCR PO SCH (20:24)
[2017-06-26] MEDS: QUETIAPINE FUMARATE 25 MG TAB PO SCH (20:24)
[2017-06-26] MEDS: PROMETHAZINE HCL 25 MG TAB PO PRN (20:26)
[2017-06-26] MEDS: ALPRAZOLAM 0.5 MG TAB PO SCH (20:26)
[2017-06-26] MEDS: INSULIN GLARGINE SOLOSTAR 100 UNITS/ML 3 ML PEN SC SCH (20:29)
[2017-06-27] VITALS (22 sets, daily range): BP systolic 145–175; BP diastolic 51–83; PULSE 60–80; TEMP 36.7–37; O2SAT 93–94
[2017-06-27] MEDS: CIPROFLOXACIN / D5W 200 MG in PREMIXED IN D5W 100 ML IV SCH (04:03)
[2017-06-27] MEDS ORDERED: HEPARIN SOD (PORCINE) 1000 UNIT/ML 10 ML VIAL IV SCH (06:00)
[2017-06-27] MEDS: EPOETIN ALFA 10,000 UNITS/ML VIAL IV SCH (06:00)
[2017-06-27 06:04] LABS: HEMOGLOBIN 9.3 g/dL (12.0-16.0); MEAN CELL VOLUME 92.9 fL (80-100); MEAN CORPUSCULAR HEMOGLOBIN 29.8 pg (25-34); MEAN CORPUSCULAR HGB CONC 32.1 g/dl (32-36); MEAN PLATELET VOLUME 8.4 fL (7.4-10.4); PLATELET COUNT 150 K/uL (130-400); RED CELL DISTRIBUTION WIDTH CV 18.8 % (11.5-14.5); RED CELL DISTRIBUTION WIDTH SD 62.8 fL (36.4-46.3); WHITE BLOOD COUNT 8.05 K/uL (4.8-10.8)
[2017-06-27 06:35] LABS: CALCIUM 7.8 mg/dl (8.5-10.1); CREATININE 2.44 mg/dl (0.60-1.20); POTASSIUM 3.1 mmol/L (3.5-5.1)
[2017-06-27] MEDS: METRONIDAZOLE / NSS 500 MG in PREMIXED NSS 100 ML IV SCH (06:40)
[2017-06-27] MEDS ORDERED: POTASSIUM CHLORIDE 20 MEQ TABCR PO ONE (08:30)
[2017-06-27] MEDS: INSULIN ASPART 100 UNITS/ML 3 ML PEN SC SCH ×4 (08:42→21:00)
--- NOTE | 2017-06-27 11:33 | Dialysis Progress Note ---
Hemodialysis Note Date of Service Jun 27, 2017. Chief Complaint ESRD Subjective Ms. Dominguez was seen & examined while on HD this am. Her IJ THC is running A --> A at Qb 300 cc/min. She complains of persistent RUQ abdominal discomfort. Ms. Dominguez informs me that she is scheduled for surgery tomorrow. Review of Systems Constitutional: No fever Cardiovascular: No chest pain Respiratory: No dyspnea at rest Abdomen: + pain, + nausea Extremities: No leg edema A complete review of systems was performed. Pertinent positives are noted above. All other systems are negative. Vital Signs Last 8 Hrs Date Time Temp Pulse Resp B/P (MAP) Pulse Ox O2 Delivery O2 Flow Rate FiO2 06/27/17 11:15 72 157/68 06/27/17 11:00 75 159/67 06/27/17 10:45 75 158/69 06/27/17 10:30 76 163/73 06/27/17 10:15 75 161/70 06/27/17 10:00 74 163/70 06/27/17 09:45 76 165/68 06/27/17 09:30 74 155/62 06/27/17 09:16 78 167/77 06/27/17 08:20 94 Room Air 06/27/17 08:00 Room Air 06/27/17 07:46 36.7 68 18 168/64 (98) 94 Room Air Last Recorded Weight Weight (Kilograms): 71.000 Physical Exam General Appearance: no apparent distress Head: normocephalic, atraumatic Eyes: PERRL, EOMI Neck: no adenopathy Respiratory/Chest: lungs clear, no respiratory distress Cardiovascular: regular rate, rhythm Abdomen/GI: + pertinent finding (RUQ tender to palpation. No guarding. Hypoactive bowel sounds.) Extremities/Musculoskelatal: + pertinent finding (1+ pretibial pitting edema) Neurologic/Psych: alert, oriented x 3 Social History Smoking Status: Never smoker Drug Use: none Marital Status: Housing Status: lives with family Occupation: retired Laboratory Results Past 24 Hours 06/27/17 05:32 06/27/17 05:32 Test 06/26/17 11:32 06/26/17 16:31 06/26/17 19:47 06/27/17 05:32 Bedside Glucose 146 mg/dl (70-90) 116 mg/dl (70-90) 208 mg/dl (70-90) Red Blood Count 3.12 M/uL (4.2-5.4) Mean Corpuscular Volume 92.9 fL (80-100) Mean Corpuscular Hemoglobin 29.8 pg (25-34) Mean Corpuscular Hemoglobin Concent 32.1 g/dl (32-36) RDW Standard Deviation 62.8 fL (36.4-46.3) RDW Coefficient of Variation 18.8 % (11.5-14.5) Mean Platelet Volume 8.4 fL (7.4-10.4) Anion Gap 7.0 mmol/L (3-11) Est Creatinine Clear Calc Drug Dose 14.7 ml/min Estimated GFR () 20.5 Estimated GFR (Non- 17.7 BUN/Creatinine Ratio 6.8 (10-20) Calcium Level 7.8 mg/dl (8.5-10.1) Test 06/27/17 07:38 Bedside Glucose 122 mg/dl (70-90) Allergies Coded Allergies: Carbamazepine (Verified Allergy, Intermediate, RASH, 06/10/17) Erythromycin (Verified Allergy, Intermediate, RASH, 06/10/17) Carvedilol (Verified Adverse Reaction, Intermediate, DIZZINESS, VISUAL DISTURBANCES, 06/10/17) Statins (Verified Adverse Reaction, Intermediate, MUSCLE ACHES, 06/10/17) Medications Current Inpatient Medications Medications (Trade) Dose Ordered Sig/Haja Route Start Time Stop Time Status Last Admin Dose Admin Heparin Sodium (Porcine) (Heparin Sq 5000 Unit/0.5ml) 5,000 unit Q8H SQ 06/11/17 06:00 07/11/17 05:59 Future Hold 06/19/17 21:02 5,000 UNIT Acetaminophen (Tylenol Tab) 650 mg Q4H PRN PO 06/11/17 01:00 07/11/17 00:59 Al Hydrox/Mg Hydrox/Simethicone (Maalox Max Susp) 15 ml Q4H PRN PO 06/11/17 01:00 07/11/17 00:59 Magnesium Hydroxide (Milk Of Magnesia Susp) 30 ml Q12H PRN PO 06/11/17 01:00 07/11/17 00:59 06/21/17 08:21 30 ML Ondansetron HCl (Zofran Inj) 4 mg Q6H PRN IV 06/11/17 01:00 07/11/17 00:59 06/25/17 07:45 4 MG Nitroglycerin (Nitrostat Tab) 0.4 mg UD PRN SL 06/11/17 01:00 07/11/17 00:59 Polyethylene (Miralax Powder Packet) 17 gm DAILY PRN PO 06/11/17 01:00 07/11/17 00:59 Alprazolam (Xanax Tab) 0.5 mg HS PO 06/11/17 21:00 07/11/17 20:59 06/26/17 20:26 0.5 MG Aspirin (Ecotrin Tab) 81 mg QAM PO 06/11/17 09:00 07/11/17 08:59 Future Hold 06/19/17 07:55 81 MG EZETIMIBE (Zetia Tab) 10 mg QAM PO 06/11/17 09:00 07/11/17 08:59 06/26/17 11:02 10 MG Hydralazine HCl (Apresoline Tab) 100 mg TID PO 06/11/17 09:00 07/11/17 08:59 06/26/17 20:23 100 MG Isosorbide Mononitrate (Imdur Ext Rel Tab) 60 mg BID PO 06/11/17 09:00 07/11/17 08:59 06/26/17 20:24 60 MG Labetalol HCl (Normodyne Tab) 200 mg BID PO 06/11/17 09:00 07/11/17 08:59 06/26/17 20:24 200 MG Quetiapine Fumarate (seroQUEL TAB) 25 mg HS PO 06/11/17 21:00 07/11/17 20:59 06/26/17 20:24 25 MG Miscellaneous Information (Order Awaiting Action) 1 ea QS N/A 06/11/17 08:00 07/11/17 07:59 Miscellaneous Information (Order Awaiting Action) 1 ea QS N/A 06/11/17 08:00 07/11/17 07:59 Glucose (Glucose 40% Gel) 15-30 GRAMS 15 GRAMS... UD PRN PO 06/11/17 03:45 07/11/17 03:44 Glucose (Glucose Chew Tab) 4-8 Tablets 4 Tabl... UD PRN PO 06/11/17 03:45 07/11/17 03:44 Dextrose (Dextrose 50% 50ML Syringe) 25-50ML OF 50% DW IV FOR... UD PRN IV 06/11/17 03:45 07/11/17 03:44 Glucagon (Glucagon Inj) 1 mg UD PRN SQ 06/11/17 03:45 07/11/17 03:44 Felodipine (Plendil Tabcr) 10 mg HS PO 06/11/17 21:00 07/11/17 20:59 06/26/17 20:24 10 MG Enteral Nutritional Formula (Boost Glucose Control) 1 can BIDM PO 06/12/17 08:00 07/12/17 07:59 06/26/17 17:00 1 CAN Guaifenesin/ Dextromethorphan (Robitussin-Dm Syrup) 5 ml Q6H PRN PO 06/12/17 10:45 07/12/17 10:44 06/20/17 07:57 5 ML Lactobacillus Acidophilus (Floranex Tab) 4 tab TIDM PO 06/13/17 08:00 07/13/17 07:59 06/26/17 16:48 4 TAB Furosemide 80 mg/ Syringe 8 ml @ 4 mls/min BID17 IV 06/13/17 21:00 07/13/17 20:59 06/26/17 16:48 4 MLS/MIN Oxycodone/ Acetaminophen (Percocet 5-325mg Tab) 1 tab Q4H PRN PO 06/18/17 12:00 07/02/17 11:59 06/19/17 07:56 1 TAB Insulin Glargine (Lantus Solostar Pen) 8 units QPM SC 06/19/17 21:00 07/19/17 20:59 06/26/17 20:29 8 UNITS Insulin Aspart (novoLOG ASPART) SLIDING SCALE G... ACHS SC 06/20/17 06:30 07/20/17 06:29 06/26/17 20:30 2 UNITS Albuterol/ Ipratropium (Duoneb) 3 ml Q4 PRN INH 06/19/17 12:30 07/19/17 12:29 Epoetin Arik (Procrit Inj) 10,000 units MoWeFr@0600 IV 06/22/17 06:00 07/22/17 05:59 Future hold 06/22/17 12:27 10,000 UNITS Metronidazole 500 mg/Prmx 100 ml @ 100 mls/hr Q8H IV 06/22/17 15:00 07/02/17 14:59 06/27/17 06:40 100 MLS/HR Ciprofloxacin/ Dextrose 200 mg/ Prmx 100 ml @ 100 mls/hr Q12H IV 06/23/17 04:00 07/03/17 03:59 06/27/17 04:03 100 MLS/HR Famotidine (Pepcid Tab) 20 mg DAILY PO 06/23/17 08:00 07/23/17 07:59 06/26/17 10:24 20 MG Hydralazine HCl (HydrALAZINE INJ) 20 mg Q6 PRN IV. 06/23/17 19:15 07/23/17 19:14 Promethazine HCl (Phenergan Tab) 12.5 mg Q6H PRN PO 06/24/17 12:15 07/24/17 12:14 06/26/17 20:26 12.5 MG Heparin Sodium (Porcine) (Heparin Iv Bolus) 2,000 unit 0600 IV 06/27/17 06:00 06/27/17 18:00 Impression (1) Acute renal insufficiency (2) Chronic kidney disease (3) CHF exacerbation (4) Weakness Nava is a 82-year-old female with ESRD, HTN, AODM, CHF and ASCVD s/p CABG. She was admitted to the hospital with CHF exacerbation, pleural effusion and hypertensive urgency. 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 R brachiocephalic AVF placed by Dr. Montemayor . TDC placed 06/19/17. Nava had her 1st HD treatment 06/19/17 Possible acute cholecystitis Recommendations ESRD: -- Ms. Dominguez is medically stable on HD this morning. No change to current dialysis prescription. IJ THC is functioning A --> A at Qb 300 cc/min. -- Maintain sodium restriction but avoid additional dietary restrictions at this time ANEMIA: -- Will provide PONCE w/ HD HTN: -- Acceptable control GI: -- HIDA scan report reviewed: low EF of 6 %. Possible cholecystitis. Await further surgical and GI input
--- NOTE | 2017-06-27 11:35 | Surgery Progress Note ---
Surgery Progress Note Date of Service Jun 27, 2017. Subjective pt seen. w/u for etiology of her persistent nausea has been negative except for a markedly abnormal HIDA scan. pt is quite frustrated with the nausea. has it almost everytime she eats. Objective Vital Signs: Date Time Temp Pulse Resp B/P (MAP) Pulse Ox O2 Delivery O2 Flow Rate FiO2 06/27/17 11:15 72 157/68 06/27/17 11:00 75 159/67 06/27/17 10:45 75 158/69 06/27/17 10:30 76 163/73 06/27/17 10:15 75 161/70 06/27/17 10:00 74 163/70 06/27/17 09:45 76 165/68 06/27/17 09:30 74 155/62 06/27/17 09:16 78 167/77 06/27/17 08:20 94 Room Air 06/27/17 08:00 Room Air 06/27/17 07:46 36.7 68 18 168/64 (98) 94 Room Air 06/27/17 00:30 36.8 60 20 145/51 (82) 93 Room Air 06/27/17 00:05 Room Air 06/26/17 20:20 36.6 82 22 213/71 (118) 96 Room Air 06/26/17 15:44 36.7 60 16 174/68 (103) 95 06/26/17 15:20 Room Air 06/26/17 14:29 182/55 (97) General Appearance: no apparent distress Head: atraumatic Respiratory/Chest: no respiratory distress, no accessory muscle use Abdomen: non tender, non distended, soft Extremities: non-tender Laboratory Results: Results Past 24 Hours Test 06/26/17 11:32 06/26/17 16:31 06/26/17 19:47 06/27/17 05:32 Range/Units Bedside Glucose 146 116 208 70-90 mg/dl White Blood Count 8.05 4.8-10.8 K/uL Red Blood Count 3.12 4.2-5.4 M/uL Hemoglobin 9.3 12.0-16.0 g/dL Hematocrit 29.0 37-47 % Mean Corpuscular Volume 92.9 80-100 fL Mean Corpuscular Hemoglobin 29.8 25-34 pg Mean Corpuscular Hemoglobin Concent 32.1 32-36 g/dl RDW Standard Deviation 62.8 36.4-46.3 fL RDW Coefficient of Variation 18.8 11.5-14.5 % Platelet Count 150 130-400 K/uL Mean Platelet Volume 8.4 7.4-10.4 fL Sodium Level 137 136-145 mmol/L Potassium Level 3.1 3.5-5.1 mmol/L Chloride Level 102 98-107 mmol/L Carbon Dioxide Level 28 21-32 mmol/L Anion Gap 7.0 3-11 mmol/L Blood Urea Nitrogen 17 7-18 mg/dl Creatinine 2.44 0.60-1.20 mg/dl Est Creatinine Clear Calc Drug Dose 14.7 ml/min Estimated GFR () 20.5 Estimated GFR (Non- 17.7 BUN/Creatinine Ratio 6.8 10-20 Random Glucose 113 70-99 mg/dl Calcium Level 7.8 8.5-10.1 mg/dl Test 06/27/17 07:38 Range/Units Bedside Glucose 122 70-90 mg/dl Assessment & Plan discussed with Dr. Parminder Nur. noway to know etiology of the nausea though workup negative so far and uremia has been treated with dialysis. I had a long discussion with the pt regarding her high risk surgical status and that there is no guarantee that removing her gallbladder with definitely fix her nausea. we discussed bleeding/infection/dvt/pe/mi/injury to other organs, bile leaks etc... I answered all of her questions. she wants to proceed with lap carlos despite the risks b/c she states "I can't live everyday with this nausea". I will add her to the schedule tomorrow. she will discuss with her family today and our team will check with her later today to ensure she still wants to proceed with lap carlos tomorrow.
[2017-06-27] MEDS: BOOST GLUCOSE CONTROL PO SCH ×2 (12:00→17:27)
[2017-06-27] MEDS: FUROSEMIDE INJ 80 MG in SYRINGE 0 ML IV SCH ×2 (12:01→17:24)
[2017-06-27] MEDS: LACTOBACILLUS ACIDOPHILUS (FLORANEX) TAB PO SCH ×3 (12:01→17:24)
--- NOTE | 2017-06-27 13:46 | Hospitalist Progress Note ---
Hospitalist Progress Note Date of Service Jun 27, 2017. Subjective Pt evaluation today including: conversation w/ patient, conversation w/ family (daughter on phone ), physical exam, lab review, review of studies, review of inpatient medication list Voiding: no voiding problems Patient seen during dialysis. Feeling well. Tolerating dialysis well. Still w/ little UOP. +nausea w/ little to no improvement. +RUQ abdominal pain. Discussed lap carlos- patient wishes to proceed. Discussed w/ daughter over the phone- agree w/ proceeding w/ surgery per mother's wishes. Patient denies any fever, chills, sweats, lightheadedness, dizziness, vision changes, CP, palpitations, edema, SOB, wheezing, cough, vomiting, diarrhea, urinary symptoms, melena, numbness/tingling, weakness, muscle/joint pain, anxiety/depression, active bleeding, or new skin discoloration/changes. Medications Current Inpatient Medications Medications (Trade) Dose Ordered Sig/Haja Route Start Time Stop Time Status Last Admin Dose Admin Heparin Sodium (Porcine) (Heparin Sq 5000 Unit/0.5ml) 5,000 unit Q8H SQ 06/11/17 06:00 07/11/17 05:59 Future Hold 06/19/17 21:02 5,000 UNIT Acetaminophen (Tylenol Tab) 650 mg Q4H PRN PO 06/11/17 01:00 07/11/17 00:59 Al Hydrox/Mg Hydrox/Simethicone (Maalox Max Susp) 15 ml Q4H PRN PO 06/11/17 01:00 07/11/17 00:59 Magnesium Hydroxide (Milk Of Magnesia Susp) 30 ml Q12H PRN PO 06/11/17 01:00 07/11/17 00:59 06/21/17 08:21 30 ML Ondansetron HCl (Zofran Inj) 4 mg Q6H PRN IV 06/11/17 01:00 07/11/17 00:59 06/25/17 07:45 4 MG Nitroglycerin (Nitrostat Tab) 0.4 mg UD PRN SL 06/11/17 01:00 07/11/17 00:59 Polyethylene (Miralax Powder Packet) 17 gm DAILY PRN PO 06/11/17 01:00 07/11/17 00:59 Alprazolam (Xanax Tab) 0.5 mg HS PO 06/11/17 21:00 07/11/17 20:59 06/26/17 20:26 0.5 MG Aspirin (Ecotrin Tab) 81 mg QAM PO 06/11/17 09:00 07/11/17 08:59 Future Hold 06/19/17 07:55 81 MG EZETIMIBE (Zetia Tab) 10 mg QAM PO 06/11/17 09:00 07/11/17 08:59 06/26/17 11:02 10 MG Hydralazine HCl (Apresoline Tab) 100 mg TID PO 06/11/17 09:00 07/11/17 08:59 06/26/17 20:23 100 MG Isosorbide Mononitrate (Imdur Ext Rel Tab) 60 mg BID PO 06/11/17 09:00 07/11/17 08:59 06/26/17 20:24 60 MG Labetalol HCl (Normodyne Tab) 200 mg BID PO 06/11/17 09:00 07/11/17 08:59 06/26/17 20:24 200 MG Quetiapine Fumarate (seroQUEL TAB) 25 mg HS PO 06/11/17 21:00 07/11/17 20:59 06/26/17 20:24 25 MG Miscellaneous Information (Order Awaiting Action) 1 ea QS N/A 06/11/17 08:00 07/11/17 07:59 Miscellaneous Information (Order Awaiting Action) 1 ea QS N/A 06/11/17 08:00 07/11/17 07:59 Glucose (Glucose 40% Gel) 15-30 GRAMS 15 GRAMS... UD PRN PO 06/11/17 03:45 07/11/17 03:44 Glucose (Glucose Chew Tab) 4-8 Tablets 4 Tabl... UD PRN PO 06/11/17 03:45 07/11/17 03:44 Dextrose (Dextrose 50% 50ML Syringe) 25-50ML OF 50% DW IV FOR... UD PRN IV 06/11/17 03:45 07/11/17 03:44 Glucagon (Glucagon Inj) 1 mg UD PRN SQ 06/11/17 03:45 07/11/17 03:44 Felodipine (Plendil Tabcr) 10 mg HS PO 06/11/17 21:00 07/11/17 20:59 06/26/17 20:24 10 MG Enteral Nutritional Formula (Boost Glucose Control) 1 can BIDM PO 06/12/17 08:00 07/12/17 07:59 06/26/17 17:00 1 CAN Guaifenesin/ Dextromethorphan (Robitussin-Dm Syrup) 5 ml Q6H PRN PO 06/12/17 10:45 07/12/17 10:44 06/20/17 07:57 5 ML Lactobacillus Acidophilus (Floranex Tab) 4 tab TIDM PO 06/13/17 08:00 07/13/17 07:59 06/26/17 16:48 4 TAB Furosemide 80 mg/ Syringe 8 ml @ 4 mls/min BID17 IV 06/13/17 21:00 07/13/17 20:59 06/26/17 16:48 4 MLS/MIN Oxycodone/ Acetaminophen (Percocet 5-325mg Tab) 1 tab Q4H PRN PO 06/18/17 12:00 07/02/17 11:59 06/19/17 07:56 1 TAB Insulin Glargine (Lantus Solostar Pen) 8 units QPM SC 06/19/17 21:00 07/19/17 20:59 06/26/17 20:29 8 UNITS Insulin Aspart (novoLOG ASPART) SLIDING SCALE G... ACHS SC 06/20/17 06:30 07/20/17 06:29 06/26/17 20:30 2 UNITS Albuterol/ Ipratropium (Duoneb) 3 ml Q4 PRN INH 06/19/17 12:30 07/19/17 12:29 Epoetin Arik (Procrit Inj) 10,000 units MoWeFr@0600 IV 06/22/17 06:00 07/22/17 05:59 Future hold 06/22/17 12:27 10,000 UNITS Metronidazole 500 mg/Prmx 100 ml @ 100 mls/hr Q8H IV 06/22/17 15:00 07/02/17 14:59 06/27/17 06:40 100 MLS/HR Ciprofloxacin/ Dextrose 200 mg/ Prmx 100 ml @ 100 mls/hr Q12H IV 06/23/17 04:00 07/03/17 03:59 06/27/17 04:03 100 MLS/HR Famotidine (Pepcid Tab) 20 mg DAILY PO 06/23/17 08:00 07/23/17 07:59 06/26/17 10:24 20 MG Hydralazine HCl (HydrALAZINE INJ) 20 mg Q6 PRN IV. 06/23/17 19:15 07/23/17 19:14 Promethazine HCl (Phenergan Tab) 12.5 mg Q6H PRN PO 06/24/17 12:15 07/24/17 12:14 06/26/17 20:26 12.5 MG Heparin Sodium (Porcine) (Heparin Iv Bolus) 2,000 unit 0600 IV 06/27/17 06:00 06/27/17 18:00 Objective Vital Signs Date Time Temp Pulse Resp B/P (MAP) Pulse Ox O2 Delivery O2 Flow Rate FiO2 06/27/17 13:00 80 150/70 06/27/17 12:45 79 160/69 06/27/17 12:30 79 162/71 06/27/17 12:15 78 164/71 06/27/17 12:00 78 161/77 06/27/17 11:45 77 166/78 06/27/17 11:30 76 147/72 06/27/17 11:15 72 157/68 06/27/17 11:00 75 159/67 06/27/17 10:45 75 158/69 06/27/17 10:30 76 163/73 06/27/17 10:15 75 161/70 06/27/17 10:00 74 163/70 06/27/17 09:45 76 165/68 06/27/17 09:30 74 155/62 06/27/17 09:16 78 167/77 06/27/17 08:20 94 Room Air 06/27/17 08:00 Room Air 06/27/17 07:46 36.7 68 18 168/64 (98) 94 Room Air 06/27/17 00:30 36.8 60 20 145/51 (82) 93 Room Air 06/27/17 00:05 Room Air 06/26/17 20:20 36.6 82 22 213/71 (118) 96 Room Air 06/26/17 15:44 36.7 60 16 174/68 (103) 95 06/26/17 15:20 Room Air 06/26/17 14:29 182/55 (97) Physical Exam General Appearance: no apparent distress, + obese Eyes: normal inspection, PERRL ENT: hearing grossly normal Neck: supple Respiratory/Chest: lungs clear, no respiratory distress, no accessory muscle use, + pertinent finding (R-sided permcath- mild bruising around site but improving, no bleeding noted ) Cardiovascular: regular rate, rhythm Abdomen: normal bowel sounds, soft, + tenderness (ttp of RUQ ) Extremities: no calf tenderness, + swelling (+2 pitting edema of bilateral lower extremities ) Neurologic/Psychiatric: alert, normal mood/affect, oriented x 3 Skin: normal color, warm/dry, no rash Laboratory Results Last 24 Hours Test 06/26/17 16:31 06/26/17 19:47 06/27/17 05:32 06/27/17 07:38 Bedside Glucose 116 mg/dl 208 mg/dl 122 mg/dl White Blood Count 8.05 K/uL Red Blood Count 3.12 M/uL Hemoglobin 9.3 g/dL Hematocrit 29.0 % Mean Corpuscular Volume 92.9 fL Mean Corpuscular Hemoglobin 29.8 pg Mean Corpuscular Hemoglobin Concent 32.1 g/dl RDW Standard Deviation 62.8 fL RDW Coefficient of Variation 18.8 % Platelet Count 150 K/uL Mean Platelet Volume 8.4 fL Sodium Level 137 mmol/L Potassium Level 3.1 mmol/L Chloride Level 102 mmol/L Carbon Dioxide Level 28 mmol/L Anion Gap 7.0 mmol/L Blood Urea Nitrogen 17 mg/dl Creatinine 2.44 mg/dl Est Creatinine Clear Calc Drug Dose 14.7 ml/min Estimated GFR () 20.5 Estimated GFR (Non- 17.7 BUN/Creatinine Ratio 6.8 Random Glucose 113 mg/dl Calcium Level 7.8 mg/dl Assessment and Plan 82 y/o F Hx CKD IV, CAD, HTN, HPL, anemia, DM II, chronic diastolic CHF, 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 Recent admissions for UTI, ARF, Cdiff. Admitted 05/19 with PNM and medication-induced agranulocytosis/neutropenia 05/19, DCd 05/26 to a rehab facility. She presents from [facility] re[facility] facility with a persistent productive cough, SOB, nausea, weakness and a poor appetite. She denies CP, vomiting or dysuria. She is afebrile on arrival. Her initial SBP was over 200. She is mildly hypoxic. A CXR is consistent with vascular congestion but could not r/o superimposed PNM. Nausea, possible secondary to dyskinesia of gallbladder w/ EF of 6%: - Phenergan PRN, Zofran PRN, Pepcid daily - Abdominal US 06/22- reports cholelithiasis/acute cholecystitis- IV Cipro + Flagyl- no cholecystis on HIDA, will discontinue - HIDA w/ EF of 6% - General surgery consulted, appreciate recommendations- planning for lap carlos on 06/[address] Pedro - GI consulted- s/p EGD on 06/[address] Ferris, unremarkable Hypokalemia: Replace w/ KCL supplement- follow PRP and replace PRN Diarrhea, h/o c.diff- RESOLVED SOB secondary to acute on chronic diastolic CHF exacerbation- RESOLVED: - IV Lasix 80 mg BID and Metolazone 5 mg BID- Metolazone discontinued per nephrology - Monitor I&Os and daily- negative 7.6L - ECHO 04/05/17 reviewed - CXR on 06/14: Persistent bilateral pleural effusions with bibasilar airspace opacities likely atelectatic- encourage incentive spirometry Bronchitis- RESOLVED: - O2 protocol, wean as tolerated- no on RA - DuoNeb PRN for SOB/wheezing - Speech therapy consulted- no evidence of aspiration - No abx, no leukocytosis, and afebrile Abnormal UA: UCx w/ yeast- Diflucan 100 mg daily x7 days- completed Weakness and poor appetite, severe protein malnutrition: - [employer] consulted- boost BID - Probiotic added ESRD on dialysis MWF- [facility] [employer] 2.44 today: - Consult nephrology, appreciate recommendations - Vascular surgery consulted- s/p AVF creation and PermCath insertion on 06/[address] Montemayor- f/u outpatient in 2-3 weeks - CM to setup outpatient dialysis on MWF - Hepatitis panel- negative Anemia: - Hgb 9.3 today - s/p 1 U PRBCs on 06/14 - Epogen and JUAN PABLO being treated with Venofer as per Nephrology - Follow H&H- transfuse PRN for hgb < 7.0-8.0 CAD, HLD- STABLE: - Cont ASA 81 mg daily, Labetalol 200 mg BID, Imdur 60 mg BID, Felodipine 5 mg PO HS - STATIN INTOLERANT- continue Zetia HTN- STABLE: - Hydralazine 100 mg TID, Imdur 60 mg BID, Labetalol 200 mg BID - IV Hydralazine PRN - IV diuretics as above T2DM- CONTROLLED: Lantus 8 u HS, BSG ACHS and ISS Insomnia: Continue Xanax 0.5 mg HS and Seroquel 25 mg HS GI prophylaxis: Pepcid daily DVT prophylaxis: Heparin SQ TID- hold for lap carlos tomorrow Code status: LEVEL V, DNR Dispo: Hoping for [facility] at discharge- PT/OT and CM following
[2017-06-27] MEDS: ONDANSETRON INJ 2 MG/ML 2 ML VIAL IV PRN (14:06)
[2017-06-27] MEDS: LABETALOL HCL 200 MG TAB PO SCH ×2 (14:11→21:00)
[2017-06-27] MEDS: EZETIMIBE 10MG TAB PO SCH (14:11)
[2017-06-27] MEDS: ISOSORBIDE MONONITRATE 60 MG TABCR PO SCH ×2 (14:12→21:00)
[2017-06-27] MEDS: FAMOTIDINE 20 MG TAB PO SCH (14:13)
--- NOTE | 2017-06-27 16:28 | Anesthesiology Progress Note ---
Pre-OP Anesthesia Assessment Date of Note Jun 27, 2017. Review patient information reviewed, chart reviewed, labs reviewed, acceptable for surgery Notes Elderly female scheduled for laparoscopic cholecystectomy. PMH includes HTN, DM , CAD/CABG/pacemaker, PVD, CKD, hemodialysis M/W/F. It is also noted that pt has been hypokalemic. Pt is at increased risk for anesthesia due to chronic underlying illness. She expressed understanding this risk and wishes to proceed. Informed consent obtained. Pt should be NPO after midnight except for meds. Hypokalemia should be corrected preoperatively. This was discussed with RN who stated that pt received a dose of po potassium earlier and another dose is anticipated. Will recheck potassium in am.
[2017-06-27] MEDS: PROMETHAZINE HCL 25 MG TAB PO PRN ×2 (17:26→21:01)
[2017-06-27] MEDS: QUETIAPINE FUMARATE 25 MG TAB PO SCH (21:00)
[2017-06-27] MEDS: FELODIPINE 5 MG TABCR PO SCH (21:01)
[2017-06-27] MEDS: ALPRAZOLAM 0.5 MG TAB PO SCH (21:01)
[2017-06-27] MEDS: INSULIN GLARGINE SOLOSTAR 100 UNITS/ML 3 ML PEN SC SCH (21:05)
[2017-06-28] VITALS (8 sets, daily range): BP systolic 154–204; BP diastolic 57–71; PULSE 59–65; TEMP 36–36.6; O2SAT 94–100
[2017-06-28 06:15] LABS: HEMATOCRIT 29.4 % (37-47); HEMOGLOBIN 9.6 g/dL (12.0-16.0); MEAN CELL VOLUME 92.5 fL (80-100); MEAN CORPUSCULAR HEMOGLOBIN 30.2 pg (25-34); MEAN CORPUSCULAR HGB CONC 32.7 g/dl (32-36); MEAN PLATELET VOLUME 8.4 fL (7.4-10.4); PLATELET COUNT 124 K/uL (130-400); RED CELL DISTRIBUTION WIDTH CV 19.3 % (11.5-14.5); RED CELL DISTRIBUTION WIDTH SD 64.5 fL (36.4-46.3)
[2017-06-28 06:35] LABS: INR 1.1 (0.9-1.1)
[2017-06-28 07:05] LABS: CALCIUM 7.9 mg/dl (8.5-10.1); CREATININE 1.91 mg/dl (0.60-1.20); POTASSIUM 3.9 mmol/L (3.5-5.1)
[2017-06-28] MEDS: INSULIN ASPART 100 UNITS/ML 3 ML PEN SC SCH ×4 (07:59→20:37)
[2017-06-28] MEDS: BOOST GLUCOSE CONTROL PO SCH ×2 (07:59→17:00)
[2017-06-28] MEDS: LABETALOL HCL 200 MG TAB PO SCH ×2 (08:00→21:07)
[2017-06-28] MEDS: ISOSORBIDE MONONITRATE 60 MG TABCR PO SCH ×2 (08:00→21:06)
[2017-06-28] MEDS: LACTOBACILLUS ACIDOPHILUS (FLORANEX) TAB PO SCH ×3 (08:00→17:00)
[2017-06-28] MEDS: FAMOTIDINE 20 MG TAB PO SCH (08:01)
[2017-06-28] MEDS: EZETIMIBE 10MG TAB PO SCH (08:01)
[2017-06-28] MEDS: FUROSEMIDE INJ 80 MG in SYRINGE 0 ML IV SCH ×3 (08:14→17:36)
--- NOTE | 2017-06-28 11:24 | Nephrology Progress Note ---
Nephrology Progress Note Date of Service Jun 28, 2017. Chief Complaint ESRD Subjective Ms. Dominguez c/o RUQ abdominal pain and nausea. She reports that she is scheduled for cholecystectomy this afternoon. Review of Systems Constitutional: No fever Cardiovascular: No chest pain Respiratory: No dyspnea at rest Abdomen: + pain, + nausea, No vomiting Extremities: No leg edema A complete review of systems was performed. Pertinent positives are noted above. All other systems are negative. Vital Signs Last 8 Hrs Date Time Temp Pulse Resp B/P (MAP) Pulse Ox O2 Delivery O2 Flow Rate FiO2 06/28/17 08:00 Room Air 06/28/17 07:43 36.4 61 18 166/70 (102) 96 Room Air Last Recorded Weight Weight (Kilograms): 66.400 Physical Exam General Appearance: no apparent distress Head: normocephalic, atraumatic Eyes: PERRL, EOMI Neck: no adenopathy Respiratory/Chest: lungs clear, no respiratory distress Cardiovascular: regular rate, rhythm Abdomen/GI: soft (RUQ tender. No guarding. No bowel sounds) Extremities/Musculoskelatal: no calf tenderness, no pedal edema Neurologic/Psych: alert, oriented x 3 Family History No pertinent family history Social History Smoking Status: Never smoker Drug Use: none Marital Status: Housing Status: lives with family Occupation: retired Laboratory Results Past 24 Hours 06/28/17 05:34 06/28/17 05:34 Test 06/27/17 13:58 06/27/17 16:43 06/27/17 20:25 06/28/17 00:17 Bedside Glucose 100 mg/dl (70-90) 148 mg/dl (70-90) 118 mg/dl (70-90) 140 mg/dl (70-90) Test 06/28/17 05:34 06/28/17 07:45 Red Blood Count 3.18 M/uL (4.2-5.4) Mean Corpuscular Volume 92.5 fL (80-100) Mean Corpuscular Hemoglobin 30.2 pg (25-34) Mean Corpuscular Hemoglobin Concent 32.7 g/dl (32-36) RDW Standard Deviation 64.5 fL (36.4-46.3) RDW Coefficient of Variation 19.3 % (11.5-14.5) Mean Platelet Volume 8.4 fL (7.4-10.4) Prothrombin Time 11.7 SECONDS (9.0-12.0) Prothromb Time International Ratio 1.1 (0.9-1.1) Anion Gap 6.0 mmol/L (3-11) Est Creatinine Clear Calc Drug Dose 18.0 ml/min Estimated GFR () 27.6 Estimated GFR (Non- 23.8 BUN/Creatinine Ratio 4.5 (10-20) Calcium Level 7.9 mg/dl (8.5-10.1) Bedside Glucose 101 mg/dl (70-90) Allergies Coded Allergies: Carbamazepine (Verified Allergy, Intermediate, RASH, 06/10/17) Erythromycin (Verified Allergy, Intermediate, RASH, 06/10/17) Carvedilol (Verified Adverse Reaction, Intermediate, DIZZINESS, VISUAL DISTURBANCES, 06/10/17) Statins (Verified Adverse Reaction, Intermediate, MUSCLE ACHES, 06/10/17) Medications Current Inpatient Medications Medications (Trade) Dose Ordered Sig/Haja Route Start Time Stop Time Status Last Admin Dose Admin Heparin Sodium (Porcine) (Heparin Sq 5000 Unit/0.5ml) 5,000 unit Q8H SQ 06/11/17 06:00 07/11/17 05:59 Future Hold 06/19/17 21:02 5,000 UNIT Acetaminophen (Tylenol Tab) 650 mg Q4H PRN PO 06/11/17 01:00 07/11/17 00:59 Al Hydrox/Mg Hydrox/Simethicone (Maalox Max Susp) 15 ml Q4H PRN PO 06/11/17 01:00 07/11/17 00:59 Magnesium Hydroxide (Milk Of Magnesia Susp) 30 ml Q12H PRN PO 06/11/17 01:00 07/11/17 00:59 06/21/17 08:21 30 ML Ondansetron HCl (Zofran Inj) 4 mg Q6H PRN IV 06/11/17 01:00 07/11/17 00:59 06/27/17 14:06 4 MG Nitroglycerin (Nitrostat Tab) 0.4 mg UD PRN SL 06/11/17 01:00 07/11/17 00:59 Polyethylene (Miralax Powder Packet) 17 gm DAILY PRN PO 06/11/17 01:00 07/11/17 00:59 Alprazolam (Xanax Tab) 0.5 mg HS PO 06/11/17 21:00 07/11/17 20:59 06/27/17 21:01 0.5 MG Aspirin (Ecotrin Tab) 81 mg QAM PO 06/11/17 09:00 07/11/17 08:59 Future Hold 06/19/17 07:55 81 MG EZETIMIBE (Zetia Tab) 10 mg QAM PO 06/11/17 09:00 07/11/17 08:59 06/28/17 08:01 10 MG Hydralazine HCl (Apresoline Tab) 100 mg TID PO 06/11/17 09:00 07/11/17 08:59 06/28/17 08:01 100 MG Isosorbide Mononitrate (Imdur Ext Rel Tab) 60 mg BID PO 06/11/17 09:00 07/11/17 08:59 06/28/17 08:00 60 MG Labetalol HCl (Normodyne Tab) 200 mg BID PO 06/11/17 09:00 07/11/17 08:59 06/28/17 08:00 200 MG Quetiapine Fumarate (seroQUEL TAB) 25 mg HS PO 06/11/17 21:00 07/11/17 20:59 06/27/17 21:00 25 MG Miscellaneous Information (Order Awaiting Action) 1 ea QS N/A 06/11/17 08:00 07/11/17 07:59 Miscellaneous Information (Order Awaiting Action) 1 ea QS N/A 06/11/17 08:00 07/11/17 07:59 Glucose (Glucose 40% Gel) 15-30 GRAMS 15 GRAMS... UD PRN PO 06/11/17 03:45 07/11/17 03:44 Glucose (Glucose Chew Tab) 4-8 Tablets 4 Tabl... UD PRN PO 06/11/17 03:45 07/11/17 03:44 Dextrose (Dextrose 50% 50ML Syringe) 25-50ML OF 50% DW IV FOR... UD PRN IV 06/11/17 03:45 07/11/17 03:44 Glucagon (Glucagon Inj) 1 mg UD PRN SQ 06/11/17 03:45 07/11/17 03:44 Felodipine (Plendil Tabcr) 10 mg HS PO 06/11/17 21:00 07/11/17 20:59 06/27/17 21:01 10 MG Enteral Nutritional Formula (Boost Glucose Control) 1 can BIDM PO 06/12/17 08:00 07/12/17 07:59 06/27/17 17:27 1 CAN Guaifenesin/ Dextromethorphan (Robitussin-Dm Syrup) 5 ml Q6H PRN PO 06/12/17 10:45 07/12/17 10:44 06/20/17 07:57 5 ML Lactobacillus Acidophilus (Floranex Tab) 4 tab TIDM PO 06/13/17 08:00 07/13/17 07:59 06/27/17 17:24 4 TAB Furosemide 80 mg/ Syringe 8 ml @ 4 mls/min BID17 IV 06/13/17 21:00 07/13/17 20:59 06/28/17 08:14 4 MLS/MIN Oxycodone/ Acetaminophen (Percocet 5-325mg Tab) 1 tab Q4H PRN PO 06/18/17 12:00 07/02/17 11:59 06/19/17 07:56 1 TAB Insulin Glargine (Lantus Solostar Pen) 8 units QPM SC 06/19/17 21:00 07/19/17 20:59 06/27/17 21:05 8 UNITS Insulin Aspart (novoLOG ASPART) SLIDING SCALE G... ACHS SC 06/20/17 06:30 07/20/17 06:29 06/26/17 20:30 2 UNITS Albuterol/ Ipratropium (Duoneb) 3 ml Q4 PRN INH 06/19/17 12:30 07/19/17 12:29 Epoetin Arik (Procrit Inj) 10,000 units MoWeFr@0600 IV 06/22/17 06:00 07/22/17 05:59 Future hold 06/22/17 12:27 10,000 UNITS Famotidine (Pepcid Tab) 20 mg DAILY PO 06/23/17 08:00 07/23/17 07:59 06/28/17 08:01 20 MG Hydralazine HCl (HydrALAZINE INJ) 20 mg Q6 PRN IV. 06/23/17 19:15 07/23/17 19:14 Promethazine HCl (Phenergan Tab) 12.5 mg Q6H PRN PO 06/24/17 12:15 07/24/17 12:14 06/27/17 21:01 12.5 MG Impression (1) Acute renal insufficiency (2) Chronic kidney disease (3) CHF exacerbation (4) Weakness Nava is a 82-year-old female with ESRD, HTN, AODM, CHF and ASCVD s/p CABG. She was admitted to the hospital with CHF exacerbation, pleural effusion and hypertensive urgency. 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 R brachiocephalic AVF placed by Dr. Montemayor . TDC placed 06/19/17. Nava had her 1st HD treatment 06/19/17 Possible acute cholecystitis Recommendations ESRD: -- Volume status and electrolyte balance are acceptable. No acute indication for HD at this time. Will schedule next HD for am. -- Maintain sodium restriction but avoid additional dietary restrictions at this time ANEMIA: -- Will provide PONCE w/ HD HTN: -- Acceptable control GI: -- HIDA scan report reviewed: low EF of 6 %. Possible cholecystitis. Patient is scheduled for cholecystectomy at 2 pm today
--- NOTE | 2017-06-28 11:57 | Hospitalist Progress Note ---
Hospitalist Progress Note Date of Service Jun 28, 2017. Subjective Pt evaluation today including: conversation w/ patient, physical exam, lab review, review of inpatient medication list Voiding: no voiding problems Patient resting in bed. Feeling well this AM. NPO except meds for lap carlos this afternoon. +nausea continues- little relief w/ PRN medications. +RUQ pain. Again discussed risk of procedure and possibility surgery may not help with nausea- patient in understanding and still wants to proceed. Patient denies any fever, chills, sweats, lightheadedness, dizziness, vision changes, CP, palpitations, edema, SOB, wheezing, cough, vomiting, diarrhea, urinary symptoms, melena, numbness/tingling, weakness, muscle/joint pain, anxiety/depression, active bleeding, or new skin discoloration/changes. Medications Current Inpatient Medications Medications (Trade) Dose Ordered Sig/Haja Route Start Time Stop Time Status Last Admin Dose Admin Heparin Sodium (Porcine) (Heparin Sq 5000 Unit/0.5ml) 5,000 unit Q8H SQ 06/11/17 06:00 07/11/17 05:59 Future Hold 06/19/17 21:02 5,000 UNIT Acetaminophen (Tylenol Tab) 650 mg Q4H PRN PO 06/11/17 01:00 07/11/17 00:59 Al Hydrox/Mg Hydrox/Simethicone (Maalox Max Susp) 15 ml Q4H PRN PO 06/11/17 01:00 07/11/17 00:59 Magnesium Hydroxide (Milk Of Magnesia Susp) 30 ml Q12H PRN PO 06/11/17 01:00 07/11/17 00:59 06/21/17 08:21 30 ML Ondansetron HCl (Zofran Inj) 4 mg Q6H PRN IV 06/11/17 01:00 07/11/17 00:59 06/27/17 14:06 4 MG Nitroglycerin (Nitrostat Tab) 0.4 mg UD PRN SL 06/11/17 01:00 07/11/17 00:59 Polyethylene (Miralax Powder Packet) 17 gm DAILY PRN PO 06/11/17 01:00 07/11/17 00:59 Alprazolam (Xanax Tab) 0.5 mg HS PO 06/11/17 21:00 07/11/17 20:59 06/27/17 21:01 0.5 MG Aspirin (Ecotrin Tab) 81 mg QAM PO 06/11/17 09:00 07/11/17 08:59 Future Hold 06/19/17 07:55 81 MG EZETIMIBE (Zetia Tab) 10 mg QAM PO 06/11/17 09:00 07/11/17 08:59 06/28/17 08:01 10 MG Hydralazine HCl (Apresoline Tab) 100 mg TID PO 06/11/17 09:00 07/11/17 08:59 06/28/17 08:01 100 MG Isosorbide Mononitrate (Imdur Ext Rel Tab) 60 mg BID PO 06/11/17 09:00 07/11/17 08:59 06/28/17 08:00 60 MG Labetalol HCl (Normodyne Tab) 200 mg BID PO 06/11/17 09:00 07/11/17 08:59 06/28/17 08:00 200 MG Quetiapine Fumarate (seroQUEL TAB) 25 mg HS PO 06/11/17 21:00 07/11/17 20:59 06/27/17 21:00 25 MG Miscellaneous Information (Order Awaiting Action) 1 ea QS N/A 06/11/17 08:00 07/11/17 07:59 Miscellaneous Information (Order Awaiting Action) 1 ea QS N/A 06/11/17 08:00 07/11/17 07:59 Glucose (Glucose 40% Gel) 15-30 GRAMS 15 GRAMS... UD PRN PO 06/11/17 03:45 07/11/17 03:44 Glucose (Glucose Chew Tab) 4-8 Tablets 4 Tabl... UD PRN PO 06/11/17 03:45 07/11/17 03:44 Dextrose (Dextrose 50% 50ML Syringe) 25-50ML OF 50% DW IV FOR... UD PRN IV 06/11/17 03:45 07/11/17 03:44 Glucagon (Glucagon Inj) 1 mg UD PRN SQ 06/11/17 03:45 07/11/17 03:44 Felodipine (Plendil Tabcr) 10 mg HS PO 06/11/17 21:00 07/11/17 20:59 06/27/17 21:01 10 MG Enteral Nutritional Formula (Boost Glucose Control) 1 can BIDM PO 06/12/17 08:00 07/12/17 07:59 06/27/17 17:27 1 CAN Guaifenesin/ Dextromethorphan (Robitussin-Dm Syrup) 5 ml Q6H PRN PO 06/12/17 10:45 07/12/17 10:44 06/20/17 07:57 5 ML Lactobacillus Acidophilus (Floranex Tab) 4 tab TIDM PO 06/13/17 08:00 07/13/17 07:59 06/27/17 17:24 4 TAB Furosemide 80 mg/ Syringe 8 ml @ 4 mls/min BID17 IV 06/13/17 21:00 07/13/17 20:59 06/28/17 08:14 4 MLS/MIN Oxycodone/ Acetaminophen (Percocet 5-325mg Tab) 1 tab Q4H PRN PO 06/18/17 12:00 07/02/17 11:59 06/19/17 07:56 1 TAB Insulin Glargine (Lantus Solostar Pen) 8 units QPM SC 06/19/17 21:00 07/19/17 20:59 06/27/17 21:05 8 UNITS Insulin Aspart (novoLOG ASPART) SLIDING SCALE G... ACHS SC 06/20/17 06:30 07/20/17 06:29 06/26/17 20:30 2 UNITS Albuterol/ Ipratropium (Duoneb) 3 ml Q4 PRN INH 06/19/17 12:30 07/19/17 12:29 Epoetin Arik (Procrit Inj) 10,000 units MoWeFr@0600 IV 06/22/17 06:00 07/22/17 05:59 Future hold 06/22/17 12:27 10,000 UNITS Famotidine (Pepcid Tab) 20 mg DAILY PO 06/23/17 08:00 07/23/17 07:59 06/28/17 08:01 20 MG Hydralazine HCl (HydrALAZINE INJ) 20 mg Q6 PRN IV. 06/23/17 19:15 07/23/17 19:14 Promethazine HCl (Phenergan Tab) 12.5 mg Q6H PRN PO 06/24/17 12:15 07/24/17 12:14 06/27/17 21:01 12.5 MG Objective Vital Signs Date Time Temp Pulse Resp B/P (MAP) Pulse Ox O2 Delivery O2 Flow Rate FiO2 06/28/17 08:00 Room Air 06/28/17 07:43 36.4 61 18 166/70 (102) 96 Room Air 06/28/17 00:22 36.6 59 20 157/66 (96) 94 Room Air 06/28/17 00:00 Room Air 06/27/17 15:40 Room Air 06/27/17 14:00 175/83 (113) 06/27/17 13:45 37.0 78 175/68 (103) 06/27/17 13:15 80 150/70 06/27/17 13:00 80 150/70 06/27/17 12:45 79 160/69 06/27/17 12:30 79 162/71 06/27/17 12:15 78 164/71 06/27/17 12:00 78 161/77 06/27/17 11:45 77 166/78 06/27/17 11:30 76 147/72 06/27/17 11:15 72 157/68 06/27/17 11:00 75 159/67 06/27/17 10:45 75 158/69 06/27/17 10:30 76 163/73 06/27/17 10:15 75 161/70 06/27/17 10:00 74 163/70 06/27/17 09:45 76 165/68 Physical Exam General Appearance: no apparent distress, + obese Eyes: normal inspection, PERRL ENT: hearing grossly normal Neck: supple Respiratory/Chest: lungs clear, no respiratory distress, no accessory muscle use, + pertinent finding (R [facility] site C/D/I) Cardiovascular: regular rate, rhythm Abdomen: normal bowel sounds, soft, + tenderness (ttp of RUQ) Extremities: no calf tenderness, + swelling (+1 pitting edema of bilateral lower extremities ) Neurologic/Psychiatric: alert, normal mood/affect, oriented x 3 Skin: normal color, warm/dry, no rash Laboratory Results Last 24 Hours Test 06/27/17 13:58 06/27/17 16:43 3/21/18 20:25 06/28/17 00:17 Bedside Glucose 100 mg/dl 148 mg/dl 118 mg/dl 140 mg/dl Test 06/28/17 05:34 06/28/17 07:45 White Blood Count 8.40 K/uL Red Blood Count 3.18 M/uL Hemoglobin 9.6 g/dL Hematocrit 29.4 % Mean Corpuscular Volume 92.5 fL Mean Corpuscular Hemoglobin 30.2 pg Mean Corpuscular Hemoglobin Concent 32.7 g/dl RDW Standard Deviation 64.5 fL RDW Coefficient of Variation 19.3 % Platelet Count 124 K/uL Mean Platelet Volume 8.4 fL Prothrombin Time 11.7 SECONDS Prothromb Time International Ratio 1.1 Sodium Level 135 mmol/L Potassium Level 3.9 mmol/L Chloride Level 102 mmol/L Carbon Dioxide Level 26 mmol/L Anion Gap 6.0 mmol/L Blood Urea Nitrogen 9 mg/dl Creatinine 1.91 mg/dl Est Creatinine Clear Calc Drug Dose 18.0 ml/min Estimated GFR () 27.6 Estimated GFR (Non- 23.8 BUN/Creatinine Ratio 4.5 Random Glucose 108 mg/dl Calcium Level 7.9 mg/dl Bedside Glucose 101 mg/dl Assessment and Plan 82 y/o F Hx CKD IV, CAD, HTN, HPL, anemia, DM II, chronic diastolic CHF, 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 Recent admissions for UTI, ARF, Cdiff. Admitted 05/19 with PNM and medication-induced agranulocytosis/neutropenia 05/19, DCd 05/26 to a rehab facility. She presents from [place] rehab facility with a persistent productive cough, SOB, nausea, weakness and a poor appetite. She denies CP, vomiting or dysuria. She is afebrile on arrival. Her initial SBP was over 200. She is mildly hypoxic. A CXR is consistent with vascular congestion but could not r/o superimposed PNM. Nausea, possible secondary to dyskinesia of gallbladder w/ EF of 6%: - Phenergan PRN, Zofran PRN, Pepcid daily - Abdominal US 06/22- reports cholelithiasis/acute cholecystitis- IV Cipro + Flagyl- no cholecystis on HIDA, will discontinue - HIDA w/ EF of 6% - General surgery consulted, appreciate recommendations- planning for lap carlos today (06/28) by Dr. Pedro - GI consulted- s/p EGD on 06/[address] Ferris, unremarkable Hypokalemia- RESOLVED: Replace w/ KCL supplement- follow PRP and replace PRN Diarrhea, h/o c.diff- RESOLVED SOB secondary to acute on chronic diastolic CHF exacerbation- RESOLVED: - IV Lasix 80 mg BID and Metolazone 5 mg BID- Metolazone discontinued per nephrology - Monitor I&Os and daily- negative 14.7L - ECHO 04/05/17 reviewed - CXR on 06/14- persistent bilateral pleural effusions with bibasilar airspace opacities likely atelectatic- encourage incentive spirometry Bronchitis- RESOLVED: - O2 protocol, wean as tolerated- now on RA - DuoNeb PRN for SOB/wheezing - Speech therapy consulted- no evidence of aspiration - No abx, no leukocytosis, and afebrile Abnormal UA: UCx w/ yeast- Diflucan 100 mg daily x7 days- completed Weakness and poor appetite, severe protein malnutrition: - [employer] consulted- boost BID - Probiotic added ESRD on dialysis MWF- tile burner 1.91 today: - Consult nephrology, appreciate recommendations - Vascular surgery consulted- s/p AVF creation and PermCath insertion on 06/[address] Montemayor- f/u outpatient in 2-3 weeks - CM to setup outpatient dialysis on MWF - Hepatitis panel- negative Anemia: - Hgb 9.6 today - s/p 1 U PRBCs on 06/14 - Epogen and JUAN PABLO being treated with Venofer as per Nephrology - Follow H&H- transfuse PRN for hgb < 7.0-8.0 CAD, HLD- STABLE: - Cont ASA 81 mg daily, Labetalol 200 mg BID, Imdur 60 mg BID, Felodipine 5 mg PO HS - STATIN INTOLERANT- continue Zetia HTN- STABLE: - Hydralazine 100 mg TID, Imdur 60 mg BID, Labetalol 200 mg BID - IV Hydralazine PRN - IV diuretics as above T2DM- CONTROLLED: Lantus 8 u HS, BSG ACHS and ISS Insomnia: Continue Xanax 0.5 mg HS and Seroquel 25 mg HS GI prophylaxis: Pepcid daily DVT prophylaxis: Heparin SQ TID- held for lap carlos today, resume once OK by general surgery Code status: LEVEL V, DNR Dispo: Hoping for [facility] at discharge- PT/OT and CM following
[2017-06-28] MEDS ORDERED: ONDANSETRON INJ 2 MG/ML 2 ML VIAL ONE (12:48)
[2017-06-28] MEDS ORDERED: FENTANYL CITRATE INJ 50 MCG/1 ML 2 ML VIAL ONE ×2 (12:48→14:54)
[2017-06-28] MEDS ORDERED: LIDOCAINE HCL 2% 2 ML VIAL (20MG/ML) ONE (12:48)
[2017-06-28] MEDS ORDERED: GLYCOPYRROLATE INJ 0.2 MG/ML VIAL ONE ×2 (12:48→15:20)
[2017-06-28] MEDS ORDERED: PROPOFOL IV EMULSION 10 MG/ML 20 ML VIAL IV ONE (12:48)
[2017-06-28] MEDS ORDERED: DEXAMETHASONE SOD INJ 4 MG/ML VIAL ONE (12:48)
[2017-06-28] MEDS ORDERED: NEOSTIGMINE METHYLSULFATE 5 MG/5 ML SYR ONE (12:48)
--- NOTE | 2017-06-28 13:51 | History & Physical Bridge Note ---
H&P Re-Evaluation Bridge Note: I have examined the patient, reviewed the History & Physical and in the interval since the performance of the History & Physical I have noted the following changes of clinical significance: No changes noted
[2017-06-28] MEDS ORDERED: CEFAZOLIN SOD 2000MG/15 ML IV PUSH IV ONE (13:55)
[2017-06-28] MEDS ORDERED: NURSING VERBAL MED ORDER ONE (14:00)
[2017-06-28] MEDS ORDERED: BUPIVACAINE/EPINEPHRINE 0.5% MPF 1:200,000 30 ML VIAL ONE (14:07)
[2017-06-28] MEDS ORDERED: HYDROmorphone INJ 1 MG/ML SYR IV PRN (14:45)
[2017-06-28] MEDS ORDERED: ONDANSETRON INJ 2 MG/ML 2 ML VIAL IV PRN (14:45)
[2017-06-28] MEDS ORDERED: ATROPINE SULFATE 0.1 MG/ML 5ML SYR IV PRN (14:45)
[2017-06-28] MEDS ORDERED: FENTANYL CITRATE INJ 50 MCG/1 ML 2 ML VIAL IV PRN (14:45)
[2017-06-28] MEDS ORDERED: EpHEDrine SULFATE INJ 50 MG/ML AMP IV PRN (14:45)
[2017-06-28] MEDS ORDERED: LABETALOL HCL IV 5 MG/ML 20ML IV PRN (14:45)
[2017-06-28] MEDS ORDERED: PHENYLEPHRINE 100MCG/ML 5ML SYR IV PRN (14:45)
--- NOTE | 2017-06-28 15:24 | [facility] Post Operative Brief Note ---
Immediate Operative Summary Operative Date Jun 28, 2017. Pre-Operative Diagnosis Chronic cholecystitis. Post-Operative Diagnosis Chronic cholecystitis. diaphragmatic nodule Procedure(s) Performed Laparoscopic cholecystectomy, biopsy of diaphragmatic nodule with primary repair of the diaphragm. Surgeon Dr. Pedro Superintendent Cemetery Surgeon(s) INDU Tabor Estimated Blood Loss 20 ml Findings See Below (diaphragmatic nodule) same as post op plus unexpected nodule on right side of diaphragm Specimens A: Gallbladder B: diaphragm nodule biopsy Drains None Anesthesia Type General
--- NOTE | 2017-06-28 15:41 | [facility] Operative Report ---
Operative Report Operative Date Jun 28, 2017. Pre-Operative Diagnosis Chronic cholecystitis. Post-Operative Diagnosis Chronic cholecystitis. diaphragmatic nodule Procedure(s) Performed Laparoscopic cholecystectomy, biopsy of diaphragmatic nodule with primary repair of the diaphragm. Surgeon Dr. Pedro Tractor Trailer Mechanic Surgeon(s) INDU Tabor Estimated Blood Loss 20 ml Findings same as post op plus unexpected nodule on right side of diaphragm Specimens A: Gallbladder B: diaphragm nodule biopsy Drains None Anesthesia Type General Complication(s) none Disposition no Recovery Room / PACU Description of Procedure After informed consent was obtained the patient was taken to the operating room and placed in the supine position. After successful intubation the abdomen was sterilely prepped and draped in usual fashion. A periumbilical incision was made with an 11 blade scalpel and carried down through the soft tissue using electrocautery. The anterior rectus fascia was opened using electrocautery and 2 #0 Vicryl stay sutures were placed. The peritoneum was elevated with hemostats and incised under direct vision using Metzenbaum scissors. A finger sweep was performed and a 12 mm Plascencia trocar was placed. The abdomen was insufflated to 15 mmHg. The laparoscope was inserted and the abdomen was examined in 360. No gross abnormalities were identified. A subxiphoid 5 mm port and 2 right upper quadrant 5 mm ports were placed under direct vision. The patient was placed in a reverse Trendelenburg position and slightly air- planed to the left. The gallbladder was grasped and elevated superiorly and laterally. A [place] dissector was used to take down adhesions around the neck of the gallbladder. The cystic duct was identified and skeletonized. It was clipped twice proximally and once distally and transected using a laparoscopic scissor. In similar fashion the cystic artery was identified and skeletonized clipped and divided. The gallbladder was removed from the gallbladder fossa with electrocautery. It was placed into an Endo Catch bag. Thorough irrigation was performed. At the end of the procedure there was adequate hemostasis and no evidence of any bile leaks. However while irrigating fluid out of the right upper quadrant I noted an abnormal nodule on the undersurface of the chest wall/diaphragm. It did have an appearance somewhat consistent with a melanoma. Because of her symptoms I opted to perform an excisional biopsy of it. We were able to grasp it and using electrocautery came around it. However in so doing we took full-thickness biopsy and made a small hole in the lateral side of diaphragm itself. A small amount of pleural fluid was evacuated and suctioned out. I then primarily closed the defect using 0 Tycron in simple interrupted fashion. When I was done there was no additional leakage and the repair felt solid. A final look around the abdomen showed no other abnormalities. The gallbladder and trochars were all removed and the abdomen was desufflated. The fascia of the camera port was closed using 0 Vicryl in a [id number] fashion. All the wounds were irrigated and closed using 4-0 Monocryl. Marcaine was injected around them for postoperative analgesia and skin glue used as a dressing. The patient was awaken extubated and transferred to recovery in stable condition. My physician's assistant mechanic was present through the entire case. He assisted with exposure for trocar placement. He also helped with exposure and traction on the gallbladder itself throughout the case. He helped with wound closure and dressing placement. I attest to the content of the Intraoperative Record and any orders documented therein. Any exceptions are noted below.
--- NOTE | 2017-06-28 16:38 | Anesthesiology Progress Note ---
Anesthesia Post Op Note Date & Time Jun 28, 2017 at 16:38 Vital Signs Pain Intensity: 5 Vital Signs Past 12 Hours Date Time Temp Pulse Resp B/P (MAP) Pulse Ox O2 Delivery O2 Flow Rate FiO2 06/28/17 16:30 36.3 60 18 169/59 100 Nasal Cannula 2 06/28/17 16:20 60 16 173/58 100 Oxymask 8 06/28/17 16:10 61 18 166/57 100 Oxymask 8 06/28/17 16:02 36 61 16 168/62 100 Oxymask 8 06/28/17 08:00 Room Air 06/28/17 07:43 36.4 61 18 166/70 (102) 96 Room Air Notes Mental Status: alert / awake / arousable, participated in evaluation Pt Amnestic to Procedure: Yes Nausea / Vomiting: adequately controlled Pain: adequately controlled Airway Patency, RR, SpO2: stable & adequate BP & HR: stable & adequate Hydration State: stable & adequate Anesthetic Complications: no major complications apparent
[2017-06-28] MEDS: MoRPHine SULFATE 2 MG/ML CARP IV PRN ×3 (17:25→19:49)
[2017-06-28] MEDS: ONDANSETRON INJ 2 MG/ML 2 ML VIAL IV PRN (19:50)
[2017-06-28] MEDS: ALPRAZOLAM 0.5 MG TAB PO SCH (21:08)
[2017-06-28] MEDS: FELODIPINE 5 MG TABCR PO SCH (21:08)
[2017-06-28] MEDS: QUETIAPINE FUMARATE 25 MG TAB PO SCH (21:08)
[2017-06-28] MEDS: INSULIN GLARGINE SOLOSTAR 100 UNITS/ML 3 ML PEN SC SCH (21:16)
[2017-06-29] VITALS (24 sets, daily range): BP systolic 108–198; BP diastolic 51–100; PULSE 58–76; TEMP 36.4–36.8; O2SAT 95–99
[2017-06-29] MEDS ORDERED: EPOETIN ALFA 10,000 UNITS/ML VIAL IV. ONE (06:00)
[2017-06-29] MEDS: EPOETIN ALFA 10,000 UNITS/ML VIAL IV SCH (06:00)
[2017-06-29] MEDS ORDERED: EPOETIN ALFA INJ 8,000 UNITS in SYRINGE 0 ML IV. SCH (06:00)
[2017-06-29] MEDS ORDERED: PARICALCITOL 5 MCG/ML VIAL (ZEMPLAR) IV. SCH (06:00)
[2017-06-29] MEDS: INSULIN ASPART 100 UNITS/ML 3 ML PEN SC SCH ×4 (06:30→21:43)
[2017-06-29 07:04] LABS: HEMOGLOBIN 10.5 g/dL (12.0-16.0); MEAN CELL VOLUME 92.2 fL (80-100); MEAN CORPUSCULAR HEMOGLOBIN 30.3 pg (25-34); MEAN CORPUSCULAR HGB CONC 32.8 g/dl (32-36); MEAN PLATELET VOLUME 8.4 fL (7.4-10.4); PLATELET COUNT 133 K/uL (130-400); RED CELL DISTRIBUTION WIDTH CV 19.4 % (11.5-14.5); RED CELL DISTRIBUTION WIDTH SD 64.5 fL (36.4-46.3); WHITE BLOOD COUNT 9.28 K/uL (4.8-10.8)
[2017-06-29 07:39] LABS: CALCIUM 8.2 mg/dl (8.5-10.1); CREATININE 2.67 mg/dl (0.60-1.20); POTASSIUM 4.4 mmol/L (3.5-5.1)
--- NOTE | 2017-06-29 07:41 | Surgery Progress Note ---
Surgery Progress Note Date of Service Jun 29, 2017. Subjective Post OP Day: 1 + feeling well ("little sore"), + diet (had american ice), No nausea Objective Vital Signs: Date Time Temp Pulse Resp B/P (MAP) Pulse Ox O2 Delivery O2 Flow Rate FiO2 06/29/17 07:05 36.6 68 16 154/51 (85) 99 06/29/17 00:15 36.5 60 18 168/52 (90) 95 Room Air 06/29/17 00:00 Room Air 06/28/17 20:49 63 154/64 (94) 99 Room Air 06/28/17 19:45 36.0 60 16 204/71 (115) 97 Nasal Cannula 2.0 06/28/17 18:30 36.3 60 16 164/57 (92) 97 Nasal Cannula 2.0 06/28/17 17:30 36.4 64 16 187/63 (104) 98 Nasal Cannula 2.0 06/28/17 17:27 36.3 65 16 180/65 (103) 99 Nasal Cannula 2.0 06/28/17 17:00 Nasal Cannula 2.0 06/28/17 17:00 100 Nasal Cannula 2.0 06/28/17 16:45 60 17 172/58 98 Nasal Cannula 2 06/28/17 16:30 36.3 60 18 169/59 100 Nasal Cannula 2 06/28/17 16:20 60 16 173/58 100 Oxymask 8 06/28/17 16:10 61 18 166/57 100 Oxymask 8 06/28/17 16:02 36 61 16 168/62 100 Oxymask 8 06/28/17 08:00 Room Air 06/28/17 07:43 36.4 61 18 166/70 (102) 96 Room Air Abdomen: non distended, soft Laboratory Results: Results Past 24 Hours Test 06/28/17 07:45 06/28/17 11:35 06/28/17 16:09 06/28/17 17:09 Range/Units Bedside Glucose 101 103 154 141 70-90 mg/dl Test 06/28/17 20:14 06/29/17 06:22 Range/Units Bedside Glucose 161 70-90 mg/dl White Blood Count 9.28 4.8-10.8 K/uL Red Blood Count 3.47 4.2-5.4 M/uL Hemoglobin 10.5 12.0-16.0 g/dL Hematocrit 32.0 37-47 % Mean Corpuscular Volume 92.2 80-100 fL Mean Corpuscular Hemoglobin 30.3 25-34 pg Mean Corpuscular Hemoglobin Concent 32.8 32-36 g/dl RDW Standard Deviation 64.5 36.4-46.3 fL RDW Coefficient of Variation 19.4 11.5-14.5 % Platelet Count 133 130-400 K/uL Mean Platelet Volume 8.4 7.4-10.4 fL Assessment & Plan s/p lap carlos, biopsy diaphragm nodule advance diet as elizabeth, she plans to go slow ok for rehab/SNF from surgical standpoint f/u Dr. Pedro in 2 weeks
[2017-06-29] MEDS: BOOST GLUCOSE CONTROL PO SCH ×2 (08:00→17:00)
[2017-06-29] MEDS: OXYCODONE/ACETAMINOPHEN 5-325 TAB PO PRN ×3 (08:26→21:41)
--- NOTE | 2017-06-29 10:58 | Hospitalist Progress Note ---
Hospitalist Progress Note Date of Service Jun 29, 2017. Subjective Pt evaluation today including: conversation w/ patient, physical exam, lab review, review of inpatient medication list Voiding: no voiding problems Patient seen during dialysis today. Feel very well. No nausea. Had liquids for breakfast and tolerated well. Would like to take it very slowly. She ordered broth for lunch. Will advance as tolerated. Denies any pain. Patient denies any fever, chills, sweats, lightheadedness, dizziness, vision changes, CP, palpitations, edema, SOB, wheezing, cough, abdominal pain, nausea, vomiting, diarrhea, urinary symptoms, melena, numbness/tingling, weakness, muscle/joint pain, anxiety/depression, active bleeding, or new skin discoloration/changes. Medications Current Inpatient Medications Medications (Trade) Dose Ordered Sig/Haja Route Start Time Stop Time Status Last Admin Dose Admin Heparin Sodium (Porcine) (Heparin Sq 5000 Unit/0.5ml) 5,000 unit Q8H SQ 06/11/17 06:00 07/11/17 05:59 Future Hold 06/19/17 21:02 5,000 UNIT Acetaminophen (Tylenol Tab) 650 mg Q4H PRN PO 06/11/17 01:00 07/11/17 00:59 Al Hydrox/Mg Hydrox/Simethicone (Maalox Max Susp) 15 ml Q4H PRN PO 06/11/17 01:00 07/11/17 00:59 Magnesium Hydroxide (Milk Of Magnesia Susp) 30 ml Q12H PRN PO 06/11/17 01:00 07/11/17 00:59 06/21/17 08:21 30 ML Ondansetron HCl (Zofran Inj) 4 mg Q6H PRN IV 06/11/17 01:00 07/11/17 00:59 06/28/17 19:50 4 MG Nitroglycerin (Nitrostat Tab) 0.4 mg UD PRN SL 06/11/17 01:00 07/11/17 00:59 Polyethylene (Miralax Powder Packet) 17 gm DAILY PRN PO 06/11/17 01:00 07/11/17 00:59 Alprazolam (Xanax Tab) 0.5 mg HS PO 06/11/17 21:00 07/11/17 20:59 3/22/18 21:08 0.5 MG Aspirin (Ecotrin Tab) 81 mg QAM PO 06/11/17 09:00 07/11/17 08:59 Future Hold 06/19/17 07:55 81 MG EZETIMIBE (Zetia Tab) 10 mg QAM PO 06/11/17 09:00 07/11/17 08:59 06/28/17 08:01 10 MG Hydralazine HCl (Apresoline Tab) 100 mg TID PO 06/11/17 09:00 07/11/17 08:59 06/28/17 21:06 100 MG Isosorbide Mononitrate (Imdur Ext Rel Tab) 60 mg BID PO 06/11/17 09:00 07/11/17 08:59 06/28/17 21:06 60 MG Labetalol HCl (Normodyne Tab) 200 mg BID PO 06/11/17 09:00 07/11/17 08:59 06/28/17 21:07 200 MG Quetiapine Fumarate (seroQUEL TAB) 25 mg HS PO 06/11/17 21:00 07/11/17 20:59 06/28/17 21:08 25 MG Miscellaneous Information (Order Awaiting Action) 1 ea QS N/A 06/11/17 08:00 07/11/17 07:59 Miscellaneous Information (Order Awaiting Action) 1 ea QS N/A 06/11/17 08:00 07/11/17 07:59 Glucose (Glucose 40% Gel) 15-30 GRAMS 15 GRAMS... UD PRN PO 06/11/17 03:45 07/11/17 03:44 Glucose (Glucose Chew Tab) 4-8 Tablets 4 Tabl... UD PRN PO 06/11/17 03:45 07/11/17 03:44 Dextrose (Dextrose 50% 50ML Syringe) 25-50ML OF 50% DW IV FOR... UD PRN IV 06/11/17 03:45 07/11/17 03:44 Glucagon (Glucagon Inj) 1 mg UD PRN SQ 06/11/17 03:45 07/11/17 03:44 Felodipine (Plendil Tabcr) 10 mg HS PO 06/11/17 21:00 07/11/17 20:59 06/28/17 21:08 10 MG Enteral Nutritional Formula (Boost Glucose Control) 1 can BIDM PO 06/12/17 08:00 07/12/17 07:59 06/27/17 17:27 1 CAN Guaifenesin/ Dextromethorphan (Robitussin-Dm Syrup) 5 ml Q6H PRN PO 06/12/17 10:45 07/12/17 10:44 06/20/17 07:57 5 ML Lactobacillus Acidophilus (Floranex Tab) 4 tab TIDM PO 06/13/17 08:00 07/13/17 07:59 06/27/17 17:24 4 TAB Furosemide 80 mg/ Syringe 8 ml @ 4 mls/min BID17 IV 06/13/17 21:00 07/13/17 20:59 06/28/17 17:36 4 MLS/MIN Oxycodone/ Acetaminophen (Percocet 5-325mg Tab) 1 tab Q4H PRN PO 06/18/17 12:00 07/02/17 11:59 06/29/17 08:26 1 TAB Insulin Glargine (Lantus Solostar Pen) 8 units QPM SC 06/19/17 21:00 07/19/17 20:59 06/28/17 21:16 8 UNITS Insulin Aspart (novoLOG ASPART) SLIDING SCALE G... ACHS SC 06/20/17 06:30 07/20/17 06:29 06/26/17 20:30 2 UNITS Albuterol/ Ipratropium (Duoneb) 3 ml Q4 PRN INH 06/19/17 12:30 07/19/17 12:29 Epoetin Arik (Procrit Inj) 10,000 units MoWeFr@0600 IV 06/22/17 06:00 07/22/17 05:59 Future hold 06/22/17 12:27 10,000 UNITS Famotidine (Pepcid Tab) 20 mg DAILY PO 06/23/17 08:00 07/23/17 07:59 06/28/17 08:01 20 MG Hydralazine HCl (HydrALAZINE INJ) 20 mg Q6 PRN IV. 06/23/17 19:15 07/23/17 19:14 Promethazine HCl (Phenergan Tab) 12.5 mg Q6H PRN PO 06/24/17 12:15 07/24/17 12:14 06/27/17 21:01 12.5 MG Paricalcitol (Zemplar Inj) 3 mcg 0600 IV. 06/29/17 06:00 06/29/17 18:00 Heparin Sodium (Porcine) (No Heparin In Dialysis) 1 ea 0600 N/A 06/29/17 06:00 06/29/17 18:00 Epoetin Arik 8000 units/Syringe 0.4 ml @ 1 mls/min TODAY@0600 IV. 06/29/17 06:00 06/29/17 18:00 Morphine Sulfate (MoRPHine SULFATE INJ) 2 mg Q1H PRN IV 06/28/17 15:30 07/12/17 15:29 06/28/17 19:49 2 MG Objective Vital Signs Date Time Temp Pulse Resp B/P (MAP) Pulse Ox O2 Delivery O2 Flow Rate FiO2 06/29/17 07:05 36.6 68 16 154/51 (85) 99 06/29/17 00:15 36.5 60 18 168/52 (90) 95 Room Air 06/29/17 00:00 Room Air 06/28/17 20:49 63 154/64 (94) 99 Room Air 06/28/17 19:45 36.0 60 16 204/71 (115) 97 Nasal Cannula 2.0 06/28/17 18:30 36.3 60 16 164/57 (92) 97 Nasal Cannula 2.0 06/28/17 17:30 36.4 64 16 187/63 (104) 98 Nasal Cannula 2.0 06/28/17 17:27 36.3 65 16 180/65 (103) 99 Nasal Cannula 2.0 06/28/17 17:00 Nasal Cannula 2.0 06/28/17 17:00 100 Nasal Cannula 2.0 06/28/17 16:45 60 17 172/58 98 Nasal Cannula 2 06/28/17 16:30 36.3 60 18 169/59 100 Nasal Cannula 2 06/28/17 16:20 60 16 173/58 100 Oxymask 8 06/28/17 16:10 61 18 166/57 100 Oxymask 8 06/28/17 16:02 36 61 16 168/62 100 Oxymask 8 Physical Exam General Appearance: no apparent distress, + obese Eyes: normal inspection, PERRL ENT: hearing grossly normal Neck: supple Respiratory/Chest: lungs clear, no respiratory distress, no accessory muscle use, + pertinent finding (Permcath R-side C/D/I) Cardiovascular: regular rate, rhythm Abdomen: normal bowel sounds, soft, + tenderness (appropriately tender around incision sites ), + pertinent finding (incision sites C/D/I) Extremities: no calf tenderness, + swelling (+1 pitting edema of bilateral lower extremities ) Neurologic/Psychiatric: alert, normal mood/affect, oriented x 3 Skin: warm/dry, no rash, + pallor Laboratory Results Last 24 Hours Test 06/28/17 11:35 06/28/17 16:09 06/28/17 17:09 06/28/17 20:14 Bedside Glucose 103 mg/dl 154 mg/dl 141 mg/dl 161 mg/dl Test 06/29/17 06:22 06/29/17 07:32 White Blood Count 9.28 K/uL Red Blood Count 3.47 M/uL Hemoglobin 10.5 g/dL Hematocrit 32.0 % Mean Corpuscular Volume 92.2 fL Mean Corpuscular Hemoglobin 30.3 pg Mean Corpuscular Hemoglobin Concent 32.8 g/dl RDW Standard Deviation 64.5 fL RDW Coefficient of Variation 19.4 % Platelet Count 133 K/uL Mean Platelet Volume 8.4 fL Sodium Level 134 mmol/L Potassium Level 4.4 mmol/L Chloride Level 102 mmol/L Carbon Dioxide Level 22 mmol/L Anion Gap 10.0 mmol/L Blood Urea Nitrogen 19 mg/dl Creatinine 2.67 mg/dl Est Creatinine Clear Calc Drug Dose 13.1 ml/min Estimated GFR () 18.4 Estimated GFR (Non- 15.9 BUN/Creatinine Ratio 7.0 Random Glucose 164 mg/dl Calcium Level 8.2 mg/dl Bedside Glucose 147 mg/dl Assessment and Plan 82 y/o F Hx CKD IV, CAD, HTN, HPL, anemia, DM II, chronic diastolic CHF, 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 Recent admissions for UTI, ARF, Cdiff. Admitted 05/19 with PNM and medication-induced agranulocytosis/neutropenia 05/19, DCd 05/26 to a rehab facility. She presents from [place] rehab facility with a persistent productive cough, SOB, nausea, weakness and a poor appetite. She denies CP, vomiting or dysuria. She is afebrile on arrival. Her initial SBP was over 200. She is mildly hypoxic. A CXR is consistent with vascular congestion but could not r/o superimposed PNM. Nausea, secondary to dyskinesia of gallbladder w/ EF of 6%- RESOLVED: - Phenergan PRN, Zofran PRN, Pepcid daily - Abdominal US 06/22- reports cholelithiasis/acute cholecystitis- IV Cipro + Flagyl- no cholecystis on HIDA, will discontinue - HIDA w/ EF of 6% - General surgery consulted, appreciate recommendations- s/p lap carlos on 06/[address] Pedro- f/u outpatient in 2 weeks - GI consulted- s/p EGD on 06/[address] Ferris, unremarkable Incidental diaphragmatic nodule found during lap carlos procedure: Biopsy taken- f/u pathology results Hypokalemia- RESOLVED: Replace w/ KCL supplement- follow PRP and replace PRN Diarrhea, h/o c.diff- RESOLVED SOB secondary to acute on chronic diastolic CHF exacerbation- RESOLVED: - IV Lasix 80 mg BID and Metolazone 5 mg BID- Metolazone discontinued per nephrology - Monitor I&Os and daily- negative 14.6L - ECHO 04/05/17 reviewed - CXR on 06/14- persistent bilateral pleural effusions with bibasilar airspace opacities likely atelectatic- encourage incentive spirometry Bronchitis- RESOLVED: - O2 protocol, wean as tolerated- now on RA w/ appropriate O2 sats - DuoNeb PRN for SOB/wheezing - Speech therapy consulted- no evidence of aspiration - No abx, no leukocytosis, and afebrile Abnormal UA: UCx w/ yeast- Diflucan 100 mg daily x7 days- completed Weakness and poor appetite, severe protein malnutrition: - Skull Splitter consulted- boost BID - Probiotic added ESRD on dialysis MWF- last sorter 2.67 today: - Consulted nephrology, appreciate recommendations - Vascular surgery consulted- s/p AVF creation and PermCath insertion on 06/[address] Montemayor- f/u outpatient in 2-3 weeks - CM to setup outpatient dialysis on MWF - Hepatitis panel- negative Anemia: - Hgb 10.5 today - s/p 1 U PRBCs on 06/14 - Epogen and JUAN PABLO being treated with Venofer as per Nephrology - Follow H&H- transfuse PRN for hgb < 7.0-8.0 CAD, HLD- STABLE: - Cont ASA 81 mg daily, Labetalol 200 mg BID, Imdur 60 mg BID, Felodipine 5 mg PO HS - STATIN INTOLERANT- continue Zetia HTN- STABLE: - Hydralazine 100 mg TID, Imdur 60 mg BID, Labetalol 200 mg BID - IV Hydralazine PRN - IV diuretics as above T2DM- CONTROLLED: Lantus 8 u HS, BSG ACHS and ISS Insomnia: Continue Xanax 0.5 mg HS and Seroquel 25 mg HS GI prophylaxis: Pepcid daily DVT prophylaxis: Heparin BID Code status: LEVEL V, DNR Dispo: Hoping for [facility] at discharge- PT/OT and CM following- hopeful discharge in the next 1-2 days
[2017-06-29] MEDS: LACTOBACILLUS ACIDOPHILUS (FLORANEX) TAB PO SCH ×3 (12:00→17:32)
[2017-06-29] MEDS: LABETALOL HCL 200 MG TAB PO SCH ×2 (14:39→21:40)
[2017-06-29] MEDS: ISOSORBIDE MONONITRATE 60 MG TABCR PO SCH ×2 (14:39→21:40)
[2017-06-29] MEDS: FAMOTIDINE 20 MG TAB PO SCH (14:39)
[2017-06-29] MEDS: FUROSEMIDE INJ 80 MG in SYRINGE 0 ML IV SCH ×2 (14:40→17:31)
[2017-06-29] MEDS: EZETIMIBE 10MG TAB PO SCH (14:40)
--- NOTE | 2017-06-29 17:56 | Nephrology Progress Note ---
Nephrology Progress Note Date of Service Jun 29, 2017. Chief Complaint ESRD Subjective Ms. Dominguez was seen & examined in her room this morning. She reports mild incisional discomfort but is overall subjectively improved. She denies fever or nausea Review of Systems Constitutional: No fever Cardiovascular: No chest pain Respiratory: No dyspnea at rest Abdomen: + pain, No nausea A complete review of systems was performed. Pertinent positives are noted above. All other systems are negative. Vital Signs Last 8 Hrs Date Time Temp Pulse Resp B/P (MAP) Pulse Ox O2 Delivery O2 Flow Rate FiO2 06/29/17 15:22 36.7 75 18 108/75 (86) 98 Room Air 06/29/17 14:23 76 141/71 (94) 06/29/17 13:45 59 183/64 06/29/17 13:30 59 189/61 06/29/17 13:15 59 176/65 06/29/17 13:00 60 176/63 06/29/17 12:45 60 179/64 06/29/17 12:30 60 169/58 06/29/17 12:15 60 171/58 06/29/17 12:00 60 171/63 06/29/17 11:45 60 157/61 06/29/17 11:30 62 161/60 06/29/17 11:15 70 173/65 06/29/17 11:00 60 155/60 06/29/17 10:45 60 143/61 06/29/17 10:30 60 162/60 06/29/17 10:15 58 150/62 06/29/17 10:00 61 198/100 06/29/17 09:54 36.8 60 142/66 (91) I & O 24-Hour Column 06/30/17 08:00 Intake Total 380 ml Output Total 350 ml Balance 30 ml Last Recorded Weight Weight (Kilograms): 70.300 Physical Exam General Appearance: no apparent distress Head: normocephalic, atraumatic Eyes: PERRL, EOMI Neck: no adenopathy Respiratory/Chest: chest non-tender, no respiratory distress Cardiovascular: regular rate, rhythm Abdomen/GI: soft (hypoactive bowel sounds. Laproscopic incisions are well healed) Extremities/Musculoskelatal: + pertinent finding (trace pretibial edema) Neurologic/Psych: alert, oriented x 3 Family History No pertinent family history Social History Smoking Status: Never smoker Drug Use: none Marital Status: Housing Status: lives with family Occupation: retired Laboratory Results Past 24 Hours 06/29/17 06:22 06/29/17 06:22 Test 06/28/17 20:14 06/29/17 06:22 06/29/17 07:32 06/29/17 14:14 Bedside Glucose 161 mg/dl (70-90) 147 mg/dl (70-90) 98 mg/dl (70-90) Red Blood Count 3.47 M/uL (4.2-5.4) Mean Corpuscular Volume 92.2 fL (80-100) Mean Corpuscular Hemoglobin 30.3 pg (25-34) Mean Corpuscular Hemoglobin Concent 32.8 g/dl (32-36) RDW Standard Deviation 64.5 fL (36.4-46.3) RDW Coefficient of Variation 19.4 % (11.5-14.5) Mean Platelet Volume 8.4 fL (7.4-10.4) Anion Gap 10.0 mmol/L (3-11) Est Creatinine Clear Calc Drug Dose 13.1 ml/min Estimated GFR () 18.4 Estimated GFR (Non- 15.9 BUN/Creatinine Ratio 7.0 (10-20) Calcium Level 8.2 mg/dl (8.5-10.1) Test 06/29/17 16:53 Bedside Glucose 151 mg/dl (70-90) Allergies Coded Allergies: Carbamazepine (Verified Allergy, Intermediate, RASH, 06/10/17) Erythromycin (Verified Allergy, Intermediate, RASH, 06/10/17) Carvedilol (Verified Adverse Reaction, Intermediate, DIZZINESS, VISUAL DISTURBANCES, 06/10/17) Statins (Verified Adverse Reaction, Intermediate, MUSCLE ACHES, 06/10/17) Medications Current Inpatient Medications Medications (Trade) Dose Ordered Sig/Haja Route Start Time Stop Time Status Last Admin Dose Admin Acetaminophen (Tylenol Tab) 650 mg Q4H PRN PO 06/11/17 01:00 07/11/17 00:59 Al Hydrox/Mg Hydrox/Simethicone (Maalox Max Susp) 15 ml Q4H PRN PO 06/11/17 01:00 07/11/17 00:59 Magnesium Hydroxide (Milk Of Magnesia Susp) 30 ml Q12H PRN PO 06/11/17 01:00 07/11/17 00:59 06/21/17 08:21 30 ML Ondansetron HCl (Zofran Inj) 4 mg Q6H PRN IV 06/11/17 01:00 07/11/17 00:59 06/28/17 19:50 4 MG Nitroglycerin (Nitrostat Tab) 0.4 mg UD PRN SL 06/11/17 01:00 07/11/17 00:59 Polyethylene (Miralax Powder Packet) 17 gm DAILY PRN PO 06/11/17 01:00 07/11/17 00:59 Alprazolam (Xanax Tab) 0.5 mg HS PO 06/11/17 21:00 07/11/17 20:59 06/28/17 21:08 0.5 MG Aspirin (Ecotrin Tab) 81 mg QAM PO 06/11/17 09:00 07/11/17 08:59 Future Hold 06/19/17 07:55 81 MG EZETIMIBE (Zetia Tab) 10 mg QAM PO 06/11/17 09:00 07/11/17 08:59 06/29/17 14:40 10 MG Hydralazine HCl (Apresoline Tab) 100 mg TID PO 06/11/17 09:00 07/11/17 08:59 06/29/17 14:37 100 MG Isosorbide Mononitrate (Imdur Ext Rel Tab) 60 mg BID PO 06/11/17 09:00 07/11/17 08:59 06/29/17 14:39 60 MG Labetalol HCl (Normodyne Tab) 200 mg BID PO 06/11/17 09:00 07/11/17 08:59 06/29/17 14:39 200 MG Quetiapine Fumarate (seroQUEL TAB) 25 mg HS PO 06/11/17 21:00 07/11/17 20:59 06/28/17 21:08 25 MG Miscellaneous Information (Order Awaiting Action) 1 ea QS N/A 06/11/17 08:00 07/11/17 07:59 Miscellaneous Information (Order Awaiting Action) 1 ea QS N/A 06/11/17 08:00 07/11/17 07:59 Glucose (Glucose 40% Gel) 15-30 GRAMS 15 GRAMS... UD PRN PO 06/11/17 03:45 07/11/17 03:44 Glucose (Glucose Chew Tab) 4-8 Tablets 4 Tabl... UD PRN PO 06/11/17 03:45 07/11/17 03:44 Dextrose (Dextrose 50% 50ML Syringe) 25-50ML OF 50% DW IV FOR... UD PRN IV 06/11/17 03:45 07/11/17 03:44 Glucagon (Glucagon Inj) 1 mg UD PRN SQ 06/11/17 03:45 07/11/17 03:44 Felodipine (Plendil Tabcr) 10 mg HS PO 06/11/17 21:00 07/11/17 20:59 06/28/17 21:08 10 MG Enteral Nutritional Formula (Boost Glucose Control) 1 can BIDM PO 06/12/17 08:00 07/12/17 07:59 06/27/17 17:27 1 CAN Guaifenesin/ Dextromethorphan (Robitussin-Dm Syrup) 5 ml Q6H PRN PO 06/12/17 10:45 07/12/17 10:44 06/20/17 07:57 5 ML Lactobacillus Acidophilus (Floranex Tab) 4 tab TIDM PO 06/13/17 08:00 07/13/17 07:59 06/29/17 17:32 4 TAB Furosemide 80 mg/ Syringe 8 ml @ 4 mls/min BID17 IV 06/13/17 21:00 07/13/17 20:59 06/29/17 17:31 4 MLS/MIN Oxycodone/ Acetaminophen (Percocet 5-325mg Tab) 1 tab Q4H PRN PO 06/18/17 12:00 07/02/17 11:59 06/29/17 14:48 1 TAB Insulin Glargine (Lantus Solostar Pen) 8 units QPM SC 06/19/17 21:00 07/19/17 20:59 06/28/17 21:16 8 UNITS Insulin Aspart (novoLOG ASPART) SLIDING SCALE G... ACHS SC 06/20/17 06:30 07/20/17 06:29 06/26/17 20:30 2 UNITS Albuterol/ Ipratropium (Duoneb) 3 ml Q4 PRN INH 06/19/17 12:30 07/19/17 12:29 Epoetin Arik (Procrit Inj) 10,000 units MoWeFr@0600 IV 06/22/17 06:00 07/22/17 05:59 Future hold 06/22/17 12:27 10,000 UNITS Famotidine (Pepcid Tab) 20 mg DAILY PO 06/23/17 08:00 07/23/17 07:59 06/29/17 14:39 20 MG Hydralazine HCl (HydrALAZINE INJ) 20 mg Q6 PRN IV. 06/23/17 19:15 07/23/17 19:14 Promethazine HCl (Phenergan Tab) 12.5 mg Q6H PRN PO 06/24/17 12:15 07/24/17 12:14 06/27/17 21:01 12.5 MG Paricalcitol (Zemplar Inj) 3 mcg 0600 IV. 06/29/17 06:00 06/29/17 18:00 06/29/17 12:58 3 MCG Heparin Sodium (Porcine) (No Heparin In Dialysis) 1 ea 0600 N/A 06/29/17 06:00 06/29/17 18:00 Epoetin Arik 8000 units/Syringe 0.4 ml @ 1 mls/min TODAY@0600 IV. 06/29/17 06:00 06/29/17 18:00 06/29/17 12:55 1 MLS/MIN Morphine Sulfate (MoRPHine SULFATE INJ) 2 mg Q1H PRN IV 06/28/17 15:30 07/12/17 15:29 06/28/17 19:49 2 MG Heparin Sodium (Porcine) (Heparin Sq 5000 Unit/0.5ml) 5,000 unit Q12 SQ 06/29/17 21:00 07/29/17 20:59 Impression (1) Acute renal insufficiency (2) Chronic kidney disease (3) CHF exacerbation (4) Weakness Nava is a 82-year-old female with ESRD, HTN, AODM, CHF and ASCVD s/p CABG. She was admitted to the hospital with CHF exacerbation, pleural effusion and hypertensive urgency. 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 R brachiocephalic AVF placed by Dr. Montemayor . TDC placed 06/19/17. Nava had her 1st HD treatment 06/19/17 Possible acute cholecystitis Recommendations ESRD: -- HD today. Orders entered into EMR and HD RN notified. -- human services care specialist have set up outpatient HD at [facility] ANEMIA: -- Will provide PONCE w/ HD HTN: -- Acceptable control GI: -- Improving s/p cholecystectomy
[2017-06-29] MEDS: FELODIPINE 5 MG TABCR PO SCH (21:41)
[2017-06-29] MEDS: ALPRAZOLAM 0.5 MG TAB PO SCH (21:41)
[2017-06-29] MEDS: QUETIAPINE FUMARATE 25 MG TAB PO SCH (21:41)
[2017-06-29] MEDS: INSULIN GLARGINE SOLOSTAR 100 UNITS/ML 3 ML PEN SC SCH (21:43)
[2017-06-29] MEDS: HEPARIN SOD 5000 UNIT/0.5 ML CARP SQ SCH (21:44)
[2017-06-30] VITALS: O2SAT 98
[2017-06-30] MEDS: INSULIN ASPART 100 UNITS/ML 3 ML PEN SC SCH ×4 (06:30→20:01)
[2017-06-30 06:49] LABS: HEMATOCRIT 28.9 % (37-47); HEMOGLOBIN 9.4 g/dL (12.0-16.0); MEAN CELL VOLUME 93.2 fL (80-100); MEAN CORPUSCULAR HEMOGLOBIN 30.3 pg (25-34); MEAN CORPUSCULAR HGB CONC 32.5 g/dl (32-36); MEAN PLATELET VOLUME 8.1 fL (7.4-10.4); PLATELET COUNT 122 K/uL (130-400); RED CELL DISTRIBUTION WIDTH CV 19.6 % (11.5-14.5); RED CELL DISTRIBUTION WIDTH SD 66.9 fL (36.4-46.3); WHITE BLOOD COUNT 8.89 K/uL (4.8-10.8)
[2017-06-30 07:31] LABS: CALCIUM 7.9 mg/dl (8.5-10.1); CREATININE 2.12 mg/dl (0.60-1.20); POTASSIUM 3.9 mmol/L (3.5-5.1)
[2017-06-30 07:47] VITALS: BP 155/62; PULSE 65; TEMP 36.9; O2SAT 95
[2017-06-30] MEDS: BOOST GLUCOSE CONTROL PO SCH ×2 (08:00→17:25)
[2017-06-30] MEDS: ISOSORBIDE MONONITRATE 60 MG TABCR PO SCH ×2 (08:41→19:59)
[2017-06-30] MEDS: FAMOTIDINE 20 MG TAB PO SCH (08:41)
[2017-06-30] MEDS: EZETIMIBE 10MG TAB PO SCH (08:41)
[2017-06-30] MEDS: LACTOBACILLUS ACIDOPHILUS (FLORANEX) TAB PO SCH ×3 (08:41→17:26)
[2017-06-30] MEDS: FUROSEMIDE INJ 80 MG in SYRINGE 0 ML IV SCH ×2 (08:43→17:25)
[2017-06-30] MEDS: HEPARIN SOD 5000 UNIT/0.5 ML CARP SQ SCH ×2 (08:46→20:05)
[2017-06-30] MEDS: OXYCODONE/ACETAMINOPHEN 5-325 TAB PO PRN ×2 (09:19→17:28)
--- NOTE | 2017-06-30 09:55 | Surgery Progress Note ---
Surgery Progress Note Date of Service Jun 30, 2017. Subjective Post OP Day: 2 + feeling well, + complaints (sore but better), + flatus, + diet (clears), No nausea, No vomiting Objective Vital Signs: Date Time Temp Pulse Resp B/P (MAP) Pulse Ox O2 Delivery O2 Flow Rate FiO2 06/30/17 07:47 36.9 65 18 155/62 (93) 95 06/30/17 00:00 98 Room Air 06/29/17 23:19 36.4 60 16 114/54 (74) 96 Room Air 06/29/17 20:00 98 Room Air 06/29/17 15:22 36.7 75 18 108/75 (86) 98 Room Air 06/29/17 14:23 76 141/71 (94) 06/29/17 14:00 36.7 64 194/69 (110) 06/29/17 13:45 59 183/64 06/29/17 13:30 59 189/61 06/29/17 13:15 59 176/65 06/29/17 13:00 60 176/63 06/29/17 12:45 60 179/64 06/29/17 12:30 60 169/58 06/29/17 12:15 60 171/58 06/29/17 12:00 60 171/63 06/29/17 11:45 60 157/61 06/29/17 11:30 62 161/60 06/29/17 11:15 70 173/65 06/29/17 11:00 60 155/60 06/29/17 10:45 60 143/61 06/29/17 10:30 60 162/60 06/29/17 10:15 58 150/62 06/29/17 10:00 61 198/100 06/29/17 09:54 36.8 60 142/66 (91) General Appearance: WD/WN, no apparent distress Head: normocephalic, atraumatic Neck: supple, trachea midline Respiratory/Chest: lungs clear Cardiovascular: regular rate, rhythm Abdomen: normal bowel sounds, soft, + distended, + tenderness (mild) Incision(s): clean, dry, intact Extremities: non-tender, no pedal edema Laboratory Results: Results Past 24 Hours Test 06/29/17 14:14 06/29/17 16:53 06/29/17 20:37 06/30/17 06:35 Range/Units Bedside Glucose 98 151 173 70-90 mg/dl White Blood Count 8.89 4.8-10.8 K/uL Red Blood Count 3.10 4.2-5.4 M/uL Hemoglobin 9.4 12.0-16.0 g/dL Hematocrit 28.9 37-47 % Mean Corpuscular Volume 93.2 80-100 fL Mean Corpuscular Hemoglobin 30.3 25-34 pg Mean Corpuscular Hemoglobin Concent 32.5 32-36 g/dl RDW Standard Deviation 66.9 36.4-46.3 fL RDW Coefficient of Variation 19.6 11.5-14.5 % Platelet Count 122 130-400 K/uL Mean Platelet Volume 8.1 7.4-10.4 fL Sodium Level 133 136-145 mmol/L Potassium Level 3.9 3.5-5.1 mmol/L Chloride Level 104 98-107 mmol/L Carbon Dioxide Level 20 21-32 mmol/L Anion Gap 9.0 3-11 mmol/L Blood Urea Nitrogen 12 7-18 mg/dl Creatinine 2.12 0.60-1.20 mg/dl Est Creatinine Clear Calc Drug Dose 16.0 ml/min Estimated GFR () 24.3 Estimated GFR (Non- 21.0 BUN/Creatinine Ratio 5.8 10-20 Random Glucose 99 70-99 mg/dl Calcium Level 7.9 8.5-10.1 mg/dl Test 06/30/17 07:55 Range/Units Bedside Glucose 98 70-90 mg/dl Assessment & Plan s/p lap carlos/biopsy diaphragm -doing well -advance diet and activity -await biopsy -primary team will see Sunday
[2017-06-30] MEDS: LABETALOL HCL 200 MG TAB PO SCH ×2 (10:02→20:00)
--- NOTE | 2017-06-30 13:01 | Nephrology Progress Note ---
Nephrology Progress Note Date of Service Jun 30, 2017. Chief Complaint F/U for end-stage renal disease on hemodialysis. Tashi Vick was seen and examined in her room this morning. Overall she is feeling much better, her appetite improving, denies any shortness of breath or chest pain. Lower extremity edema improve significantly. Blood pressure stable. Had dialysis yesterday, currently electrolyte acceptable. Review of Systems A complete review of systems was performed. Pertinent positives are noted above. All other systems are negative. Vital Signs Last 8 Hrs Date Time Temp Pulse Resp B/P (MAP) Pulse Ox O2 Delivery O2 Flow Rate FiO2 06/30/17 08:00 Room Air 06/30/17 07:47 36.9 65 18 155/62 (93) 95 Last Recorded Weight Weight (Kilograms): 64.500 Physical Exam GENERAL: Elderly female , AAA x 3, pleasant, healthy-appearing, not in any distress. NECK: Supple, no JVD. Right IJ tunnel dialysis catheter area with no tenderness or discharge. RESPIRATORY: Normal breathing efforts, no accessory muscle use, clear to auscultation bilaterally, no wheezes or rales. CARDIOVASCULAR: S1, S2 normal, rate rhythm regular. EXTREMITY: No lower extremity edema, left brachiocephalic AV fistula with thrill and bruit. NEURO: speech fluent. PSYCHIATRY: Normal mood and judgment Family History No pertinent family history Social History Smoking Status: Never smoker Drug Use: none Marital Status: Housing Status: lives with family Occupation: retired Laboratory Results Past 24 Hours 06/30/17 06:35 06/30/17 06:35 Test 06/29/17 14:14 06/29/17 16:53 06/29/17 20:37 06/30/17 06:35 Bedside Glucose 98 mg/dl (70-90) 151 mg/dl (70-90) 173 mg/dl (70-90) Red Blood Count 3.10 M/uL (4.2-5.4) Mean Corpuscular Volume 93.2 fL (80-100) Mean Corpuscular Hemoglobin 30.3 pg (25-34) Mean Corpuscular Hemoglobin Concent 32.5 g/dl (32-36) RDW Standard Deviation 66.9 fL (36.4-46.3) RDW Coefficient of Variation 19.6 % (11.5-14.5) Mean Platelet Volume 8.1 fL (7.4-10.4) Anion Gap 9.0 mmol/L (3-11) Est Creatinine Clear Calc Drug Dose 16.0 ml/min Estimated GFR () 24.3 Estimated GFR (Non- 21.0 BUN/Creatinine Ratio 5.8 (10-20) Calcium Level 7.9 mg/dl (8.5-10.1) Test 06/30/17 07:55 06/30/17 11:34 Bedside Glucose 98 mg/dl (70-90) 145 mg/dl (70-90) Allergies Coded Allergies: Carbamazepine (Verified Allergy, Intermediate, RASH, 06/10/17) Erythromycin (Verified Allergy, Intermediate, RASH, 06/10/17) Carvedilol (Verified Adverse Reaction, Intermediate, DIZZINESS, VISUAL DISTURBANCES, 06/10/17) Statins (Verified Adverse Reaction, Intermediate, MUSCLE ACHES, 06/10/17) Medications Current Inpatient Medications Medications (Trade) Dose Ordered Sig/Haja Route Start Time Stop Time Status Last Admin Dose Admin Acetaminophen (Tylenol Tab) 650 mg Q4H PRN PO 06/11/17 01:00 07/11/17 00:59 Al Hydrox/Mg Hydrox/Simethicone (Maalox Max Susp) 15 ml Q4H PRN PO 06/11/17 01:00 07/11/17 00:59 Magnesium Hydroxide (Milk Of Magnesia Susp) 30 ml Q12H PRN PO 06/11/17 01:00 07/11/17 00:59 06/21/17 08:21 30 ML Ondansetron HCl (Zofran Inj) 4 mg Q6H PRN IV 06/11/17 01:00 07/11/17 00:59 06/28/17 19:50 4 MG Nitroglycerin (Nitrostat Tab) 0.4 mg UD PRN SL 06/11/17 01:00 07/11/17 00:59 Polyethylene (Miralax Powder Packet) 17 gm DAILY PRN PO 06/11/17 01:00 07/11/17 00:59 Alprazolam (Xanax Tab) 0.5 mg HS PO 06/11/17 21:00 07/11/17 20:59 06/29/17 21:41 0.5 MG Aspirin (Ecotrin Tab) 81 mg QAM PO 06/11/17 09:00 07/11/17 08:59 Future Hold 06/19/17 07:55 81 MG EZETIMIBE (Zetia Tab) 10 mg QAM PO 06/11/17 09:00 07/11/17 08:59 06/30/17 08:41 10 MG Hydralazine HCl (Apresoline Tab) 100 mg TID PO 06/11/17 09:00 07/11/17 08:59 06/30/17 08:42 100 MG Isosorbide Mononitrate (Imdur Ext Rel Tab) 60 mg BID PO 06/11/17 09:00 07/11/17 08:59 06/30/17 08:41 60 MG Labetalol HCl (Normodyne Tab) 200 mg BID PO 06/11/17 09:00 07/11/17 08:59 06/30/17 10:02 200 MG Quetiapine Fumarate (seroQUEL TAB) 25 mg HS PO 06/11/17 21:00 07/11/17 20:59 06/29/17 21:41 25 MG Miscellaneous Information (Order Awaiting Action) 1 ea QS N/A 06/11/17 08:00 07/11/17 07:59 Miscellaneous Information (Order Awaiting Action) 1 ea QS N/A 06/11/17 08:00 07/11/17 07:59 Glucose (Glucose 40% Gel) 15-30 GRAMS 15 GRAMS... UD PRN PO 06/11/17 03:45 07/11/17 03:44 Glucose (Glucose Chew Tab) 4-8 Tablets 4 Tabl... UD PRN PO 06/11/17 03:45 07/11/17 03:44 Dextrose (Dextrose 50% 50ML Syringe) 25-50ML OF 50% DW IV FOR... UD PRN IV 06/11/17 03:45 07/11/17 03:44 Glucagon (Glucagon Inj) 1 mg UD PRN SQ 06/11/17 03:45 07/11/17 03:44 Felodipine (Plendil Tabcr) 10 mg HS PO 06/11/17 21:00 07/11/17 20:59 06/29/17 21:41 10 MG Enteral Nutritional Formula (Boost Glucose Control) 1 can BIDM PO 06/12/17 08:00 07/12/17 07:59 06/27/17 17:27 1 CAN Guaifenesin/ Dextromethorphan (Robitussin-Dm Syrup) 5 ml Q6H PRN PO 06/12/17 10:45 07/12/17 10:44 06/20/17 07:57 5 ML Lactobacillus Acidophilus (Floranex Tab) 4 tab TIDM PO 06/13/17 08:00 07/13/17 07:59 06/30/17 12:28 4 TAB Furosemide 80 mg/ Syringe 8 ml @ 4 mls/min BID17 IV 06/13/17 21:00 07/13/17 20:59 06/30/17 08:43 4 MLS/MIN Oxycodone/ Acetaminophen (Percocet 5-325mg Tab) 1 tab Q4H PRN PO 06/18/17 12:00 07/02/17 11:59 06/30/17 09:19 1 TAB Insulin Glargine (Lantus Solostar Pen) 8 units QPM SC 06/19/17 21:00 07/19/17 20:59 06/29/17 21:43 8 UNITS Insulin Aspart (novoLOG ASPART) SLIDING SCALE G... ACHS SC 06/20/17 06:30 07/20/17 06:29 06/29/17 21:43 1 UNITS Albuterol/ Ipratropium (Duoneb) 3 ml Q4 PRN INH 06/19/17 12:30 07/19/17 12:29 Epoetin Arik (Procrit Inj) 10,000 units MoWeFr@0600 IV 06/22/17 06:00 07/22/17 05:59 Future hold 06/22/17 12:27 10,000 UNITS Famotidine (Pepcid Tab) 20 mg DAILY PO 06/23/17 08:00 07/23/17 07:59 06/30/17 08:41 20 MG Hydralazine HCl (HydrALAZINE INJ) 20 mg Q6 PRN IV. 06/23/17 19:15 07/23/17 19:14 Promethazine HCl (Phenergan Tab) 12.5 mg Q6H PRN PO 06/24/17 12:15 07/24/17 12:14 3/21/18 21:01 12.5 MG Morphine Sulfate (MoRPHine SULFATE INJ) 2 mg Q1H PRN IV 06/28/17 15:30 07/12/17 15:29 06/28/17 19:49 2 MG Heparin Sodium (Porcine) (Heparin Sq 5000 Unit/0.5ml) 5,000 unit Q12 SQ 06/29/17 21:00 07/29/17 20:59 06/30/17 08:46 5,000 UNIT Impression (1) Acute renal insufficiency (2) Chronic kidney disease (3) CHF exacerbation (4) Weakness Nava is a 82-year-old female with ESRD, HTN, AODM, CHF and ASCVD s/p CABG. She was admitted to the hospital with CHF exacerbation, pleural effusion and hypertensive urgency. 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 R brachiocephalic AVF placed by Dr. Montemayor . TDC placed 06/19/17. Nava had her 1st HD treatment 06/19/17 Possible acute cholecystitis Recommendations -- had hemodialysis yesterday, currently blood pressure, volume status and electrolyte acceptable. Waiting on discharge to rehab -- creative services director have set up outpatient HD at [facility] -- Will provide PONCE w/ HD -- avoid IV fluid, dose medications for GFR less than 10. --next dialysis Sunday via tunnel dialysis catheter while AV fistula is maturing Will follow
--- NOTE | 2017-06-30 14:29 | Progress Note ---
Subjective Date of Service: Jun 30, 2017. Subjective Pt evaluation today including: conversation w/ patient, physical exam, lab review, conversation w/ outplacement consultant, review of inpatient medication list Pain: no pain PO Intake: improving Voiding: no voiding problems patient doing really well, no nausea, no vomiting advancing diet, eating more solid food today [facility] reviewed reviewed labs Problem List Medical Problems: (1) Acute kidney failure Status: Acute (2) Cholelithiasis Status: Acute (3) Dehydration Status: Acute (4) HTN (hypertension) Status: Acute (5) Hypertensive emergency Status: Acute (6) Influenza Status: Acute (7) Nausea and vomiting Status: Acute (8) Proteinuria Status: Acute Review of Systems Constitutional: + weakness, + fatigue All Other Systems: Reviewed and Negative Medications Current Inpatient Medications Medications (Trade) Dose Ordered Sig/Haja Route Start Time Stop Time Status Last Admin Dose Admin Acetaminophen (Tylenol Tab) 650 mg Q4H PRN PO 06/11/17 01:00 07/11/17 00:59 Al Hydrox/Mg Hydrox/Simethicone (Maalox Max Susp) 15 ml Q4H PRN PO 06/11/17 01:00 07/11/17 00:59 Magnesium Hydroxide (Milk Of Magnesia Susp) 30 ml Q12H PRN PO 06/11/17 01:00 07/11/17 00:59 06/21/17 08:21 30 ML Ondansetron HCl (Zofran Inj) 4 mg Q6H PRN IV 06/11/17 01:00 07/11/17 00:59 06/28/17 19:50 4 MG Nitroglycerin (Nitrostat Tab) 0.4 mg UD PRN SL 06/11/17 01:00 07/11/17 00:59 Polyethylene (Miralax Powder Packet) 17 gm DAILY PRN PO 06/11/17 01:00 07/11/17 00:59 Alprazolam (Xanax Tab) 0.5 mg HS PO 06/11/17 21:00 07/11/17 20:59 06/29/17 21:41 0.5 MG Aspirin (Ecotrin Tab) 81 mg QAM PO 06/11/17 09:00 07/11/17 08:59 Future Hold 06/19/17 07:55 81 MG EZETIMIBE (Zetia Tab) 10 mg QAM PO 06/11/17 09:00 07/11/17 08:59 06/30/17 08:41 10 MG Hydralazine HCl (Apresoline Tab) 100 mg TID PO 06/11/17 09:00 07/11/17 08:59 06/30/17 14:12 100 MG Isosorbide Mononitrate (Imdur Ext Rel Tab) 60 mg BID PO 06/11/17 09:00 07/11/17 08:59 06/30/17 08:41 60 MG Labetalol HCl (Normodyne Tab) 200 mg BID PO 06/11/17 09:00 07/11/17 08:59 06/30/17 10:02 200 MG Quetiapine Fumarate (seroQUEL TAB) 25 mg HS PO 06/11/17 21:00 07/11/17 20:59 06/29/17 21:41 25 MG Miscellaneous Information (Order Awaiting Action) 1 ea QS N/A 06/11/17 08:00 07/11/17 07:59 Miscellaneous Information (Order Awaiting Action) 1 ea QS N/A 06/11/17 08:00 07/11/17 07:59 Glucose (Glucose 40% Gel) 15-30 GRAMS 15 GRAMS... UD PRN PO 06/11/17 03:45 07/11/17 03:44 Glucose (Glucose Chew Tab) 4-8 Tablets 4 Tabl... UD PRN PO 06/11/17 03:45 07/11/17 03:44 Dextrose (Dextrose 50% 50ML Syringe) 25-50ML OF 50% DW IV FOR... UD PRN IV 06/11/17 03:45 07/11/17 03:44 Glucagon (Glucagon Inj) 1 mg UD PRN SQ 06/11/17 03:45 07/11/17 03:44 Felodipine (Plendil Tabcr) 10 mg HS PO 06/11/17 21:00 07/11/17 20:59 06/29/17 21:41 10 MG Enteral Nutritional Formula (Boost Glucose Control) 1 can BIDM PO 06/12/17 08:00 07/12/17 07:59 06/27/17 17:27 1 CAN Guaifenesin/ Dextromethorphan (Robitussin-Dm Syrup) 5 ml Q6H PRN PO 06/12/17 10:45 07/12/17 10:44 06/20/17 07:57 5 ML Lactobacillus Acidophilus (Floranex Tab) 4 tab TIDM PO 06/13/17 08:00 07/13/17 07:59 06/30/17 12:28 4 TAB Furosemide 80 mg/ Syringe 8 ml @ 4 mls/min BID17 IV 06/13/17 21:00 07/13/17 20:59 06/30/17 08:43 4 MLS/MIN Oxycodone/ Acetaminophen (Percocet 5-325mg Tab) 1 tab Q4H PRN PO 06/18/17 12:00 07/02/17 11:59 06/30/17 09:19 1 TAB Insulin Glargine (Lantus Solostar Pen) 8 units QPM SC 06/19/17 21:00 07/19/17 20:59 06/29/17 21:43 8 UNITS Insulin Aspart (novoLOG ASPART) SLIDING SCALE G... ACHS SC 06/20/17 06:30 07/20/17 06:29 06/29/17 21:43 1 UNITS Albuterol/ Ipratropium (Duoneb) 3 ml Q4 PRN INH 06/19/17 12:30 07/19/17 12:29 Epoetin Arik (Procrit Inj) 10,000 units MoWeFr@0600 IV 06/22/17 06:00 07/22/17 05:59 Future hold 06/22/17 12:27 10,000 UNITS Famotidine (Pepcid Tab) 20 mg DAILY PO 06/23/17 08:00 07/23/17 07:59 06/30/17 08:41 20 MG Hydralazine HCl (HydrALAZINE INJ) 20 mg Q6 PRN IV. 06/23/17 19:15 07/23/17 19:14 Promethazine HCl (Phenergan Tab) 12.5 mg Q6H PRN PO 06/24/17 12:15 07/24/17 12:14 06/27/17 21:01 12.5 MG Morphine Sulfate (MoRPHine SULFATE INJ) 2 mg Q1H PRN IV 06/28/17 15:30 4/5/18 15:29 06/28/17 19:49 2 MG Heparin Sodium (Porcine) (Heparin Sq 5000 Unit/0.5ml) 5,000 unit Q12 SQ 06/29/17 21:00 07/29/17 20:59 06/30/17 08:46 5,000 UNIT Objective Vital Signs Date Time Temp Pulse Resp B/P (MAP) Pulse Ox O2 Delivery O2 Flow Rate FiO2 06/30/17 08:00 Room Air 06/30/17 07:47 36.9 65 18 155/62 (93) 95 06/30/17 00:00 98 Room Air 06/29/17 23:19 36.4 60 16 114/54 (74) 96 Room Air 06/29/17 20:00 98 Room Air 06/29/17 15:22 36.7 75 18 108/75 (86) 98 Room Air Physical Exam General Appearance: WD/WN, no apparent distress Eyes: normal inspection, EOMI, sclerae normal ENT: normal ENT inspection, hearing grossly normal, pharynx normal Neck: supple, no adenopathy, no JVD, trachea midline Respiratory/Chest: chest non-tender, lungs clear, normal breath sounds, no respiratory distress, no accessory muscle use Cardiovascular: regular rate, rhythm, no edema, no gallop, no JVD, no murmur Abdomen: normal bowel sounds, non tender, soft, no organomegaly Extremities: normal range of motion, non-tender, normal inspection, no pedal edema, no calf tenderness, pelvis stable Neurologic/Psychiatric: poiser II-XII nml as tested, no motor/sensory deficits, alert, normal mood/affect, oriented x 3 Skin: normal color, warm/dry, no rash Laboratory Results Last 24 Hours Test 06/29/17 16:53 06/29/17 20:37 06/30/17 06:35 06/30/17 07:55 Bedside Glucose 151 mg/dl 173 mg/dl 98 mg/dl White Blood Count 8.89 K/uL Red Blood Count 3.10 M/uL Hemoglobin 9.4 g/dL Hematocrit 28.9 % Mean Corpuscular Volume 93.2 fL Mean Corpuscular Hemoglobin 30.3 pg Mean Corpuscular Hemoglobin Concent 32.5 g/dl RDW Standard Deviation 66.9 fL RDW Coefficient of Variation 19.6 % Platelet Count 122 K/uL Mean Platelet Volume 8.1 fL Sodium Level 133 mmol/L Potassium Level 3.9 mmol/L Chloride Level 104 mmol/L Carbon Dioxide Level 20 mmol/L Anion Gap 9.0 mmol/L Blood Urea Nitrogen 12 mg/dl Creatinine 2.12 mg/dl Est Creatinine Clear Calc Drug Dose 16.0 ml/min Estimated GFR () 24.3 Estimated GFR (Non- 21.0 BUN/Creatinine Ratio 5.8 Random Glucose 99 mg/dl Calcium Level 7.9 mg/dl Test 06/30/17 11:34 Bedside Glucose 145 mg/dl Assessment and Plan 82 y/o F Hx CKD IV, CAD, HTN, HPL, anemia, DM II, chronic diastolic CHF, 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 Recent admissions for UTI, ARF, Cdiff. Admitted 05/19 with PNM and medication-induced agranulocytosis/neutropenia 05/19, DCd 05/26 to a rehab facility. [facility] a [facility] productive cough, SOB, nausea, weakness and a poor appetite. She denies CP, vomiting or dysuria. She is afebrile on arrival. Her initial SBP was over 200. She is mildly hypoxic. A CXR is consistent with vascular congestion but could not r/o superimposed PNM. Nausea, secondary to dyskinesia of gallbladder w/ EF of 6% - symptoms resolved completely two days post op, eating well, no nausea or vomiting - flatus but no BM yet - regular diet consistency - Phenergan PRN, Zofran PRN, Pepcid daily - Abdominal US 06/22- reports cholelithiasis/acute cholecystitis- IV Cipro + Flagyl- no cholecystis on HIDA, will discontinue - HIDA w/ EF of 6% - General surgery consulted, appreciate recommendations- s/p lap carlos on 06/[address] Pedro- f/u outpatient in 2 weeks - GI consulted- s/p EGD on 06/[address] Ferris, unremarkable Incidental diaphragmatic nodule found during lap carlos procedure: Biopsy taken- f/u pathology results, still not back today Hypokalemia- RESOLVED: Replace w/ KCL supplement- follow PRP and replace PRN Diarrhea, h/o c.diff- RESOLVED SOB secondary to acute on chronic diastolic CHF exacerbation- RESOLVED: - IV Lasix 80 mg BID and Metolazone 5 mg BID- Metolazone discontinued per nephrology - Monitor I&Os and daily- negative 14.6L - ECHO 04/05/17 reviewed - CXR on 06/14- persistent bilateral pleural effusions with bibasilar airspace opacities likely atelectatic- encourage incentive spirometry Bronchitis- RESOLVED: - O2 protocol, wean as tolerated- now on RA w/ appropriate O2 sats - DuoNeb PRN for SOB/wheezing - Speech therapy consulted- no evidence of aspiration - No abx, no leukocytosis, and afebrile Abnormal UA: UCx w/ yeast- Diflucan 100 mg daily x7 days- completed Weakness and poor appetite, severe protein malnutrition: - Debeader consulted- boost BID - Probiotic added ESRD on dialysis MWF- bobcat driver/labor 2.12 today after HD yesterday - Consulted nephrology, appreciate recommendations - Vascular surgery consulted- s/p AVF creation and PermCath insertion on 06/[address] Montemayor- f/u outpatient in 2-3 weeks - CM to setup outpatient dialysis on MWF - Hepatitis panel- negative Anemia: - Hgb 19.4 today - s/p 1 U PRBCs on 06/14 - Epogen and JUAN PABLO being treated with Venofer as per Nephrology - Follow H&H- transfuse PRN for hgb < 7.0-8.0 CAD, HLD- STABLE: - Cont ASA 81 mg daily, Labetalol 200 mg BID, Imdur 60 mg BID, Felodipine 5 mg PO HS - STATIN INTOLERANT- continue Zetia HTN- STABLE: - Hydralazine 100 mg TID, Imdur 60 mg BID, Labetalol 200 mg BID - IV Hydralazine PRN - IV diuretics as above T2DM- CONTROLLED: Lantus 8 u HS, BSG ACHS and ISS Insomnia: Continue Xanax 0.5 mg HS and Seroquel 25 mg HS GI prophylaxis: Pepcid daily DVT prophylaxis: Heparin BID Code status: LEVEL V, DNR Dispo: Hoping for [facility] at discharge- could be ready tomorrow if she continues to tolerate diet Continued [facility] stay due to: multiple IV medications needed Discharge planning: rehab hospital
[2017-06-30 15:41] VITALS: BP 124/66; PULSE 96; TEMP 36.4; O2SAT 96
[2017-06-30 16:00] VITALS: O2SAT 96
[2017-06-30] MEDS: MAGNESIUM HYDROXIDE SUSP 30 ML UDC PO PRN (17:26)
[2017-06-30] MEDS: FELODIPINE 5 MG TABCR PO SCH (20:00)
[2017-06-30] MEDS: INSULIN GLARGINE SOLOSTAR 100 UNITS/ML 3 ML PEN SC SCH (20:01)
[2017-06-30 20:07] VITALS: BP 174/56; PULSE 71
[2017-06-30] MEDS: ALPRAZOLAM 0.5 MG TAB PO SCH (21:30)
[2017-06-30] MEDS: QUETIAPINE FUMARATE 25 MG TAB PO SCH (21:30)
[2017-06-30 22:48] VITALS: BP 164/70; PULSE 68; TEMP 36.7; O2SAT 94
[2017-07-01] VITALS: O2SAT 98
[2017-07-01 07:07] VITALS: BP 162/58; PULSE 64; TEMP 36.8; O2SAT 96
[2017-07-01 07:55] LABS: HEMATOCRIT 31.5 % (37-47); HEMOGLOBIN 10.4 g/dL (12.0-16.0); MEAN CELL VOLUME 91.8 fL (80-100); MEAN CORPUSCULAR HEMOGLOBIN 30.3 pg (25-34); MEAN PLATELET VOLUME 8.5 fL (7.4-10.4); PLATELET COUNT 128 K/uL (130-400); RED CELL DISTRIBUTION WIDTH CV 18.9 % (11.5-14.5); RED CELL DISTRIBUTION WIDTH SD 63.8 fL (36.4-46.3); WHITE BLOOD COUNT 8.85 K/uL (4.8-10.8)
[2017-07-01 08:00] VITALS: O2SAT 98
[2017-07-01 08:21] LABS: CALCIUM 7.9 mg/dl (8.5-10.1); CREATININE 3.13 mg/dl (0.60-1.20); POTASSIUM 4.1 mmol/L (3.5-5.1)
[2017-07-01] MEDS: LACTOBACILLUS ACIDOPHILUS (FLORANEX) TAB PO SCH ×3 (08:50→16:26)
[2017-07-01] MEDS: EZETIMIBE 10MG TAB PO SCH (08:51)
[2017-07-01] MEDS: ISOSORBIDE MONONITRATE 60 MG TABCR PO SCH ×2 (08:52→20:41)
[2017-07-01] MEDS: LABETALOL HCL 200 MG TAB PO SCH ×2 (08:52→20:42)
[2017-07-01] MEDS: FUROSEMIDE INJ 80 MG in SYRINGE 0 ML IV SCH ×2 (08:53→16:26)
[2017-07-01] MEDS: FAMOTIDINE 20 MG TAB PO SCH (08:53)
[2017-07-01] MEDS: BOOST GLUCOSE CONTROL PO SCH ×2 (08:54→17:29)
[2017-07-01] MEDS: OXYCODONE/ACETAMINOPHEN 5-325 TAB PO PRN ×3 (09:10→20:54)
[2017-07-01] MEDS: INSULIN ASPART 100 UNITS/ML 3 ML PEN SC SCH ×4 (09:14→20:48)
[2017-07-01] MEDS: HEPARIN SOD 5000 UNIT/0.5 ML CARP SQ SCH ×2 (09:15→20:48)
--- NOTE | 2017-07-01 10:38 | Progress Note ---
Subjective Date of Service: Jul 01, 2017. Subjective Pt evaluation today including: conversation w/ patient, physical exam, lab review, review of inpatient medication list Pain: minimal pain in abdomina, post surgical PO Intake: adequate, much improved since surgery Voiding: no voiding problems patient had a slow fall today in the bathroom with aide at her side was lowered to the floor when strength in legs gave out patient denies any pain or injuries from the fall she ate nearly 100% of her breakfast, no nausea at all, says that her symptoms are resolved since cholecystectomy, very pleased reviewed labs, Hb is 10, Cr is 3.1 discussed with CM, needs updated PT/OT notes and insurance authorization prior to going to rehab, won't happen today Problem List Medical Problems: (1) Acute kidney failure Status: Acute (2) Cholelithiasis Status: Acute (3) Dehydration Status: Acute (4) HTN (hypertension) Status: Acute (5) Hypertensive emergency Status: Acute (6) Influenza Status: Acute (7) Nausea and vomiting Status: Acute (8) Proteinuria Status: Acute Review of Systems Constitutional: + weakness, + fatigue Abdomen: + pain (minimal post op pain, not severe) Neurologic: + weakness, + balance problems All Other Systems: Reviewed and Negative Medications Current Inpatient Medications Medications (Trade) Dose Ordered Sig/Haja Route Start Time Stop Time Status Last Admin Dose Admin Acetaminophen (Tylenol Tab) 650 mg Q4H PRN PO 06/11/17 01:00 07/11/17 00:59 Al Hydrox/Mg Hydrox/Simethicone (Maalox Max Susp) 15 ml Q4H PRN PO 06/11/17 01:00 07/11/17 00:59 Magnesium Hydroxide (Milk Of Magnesia Susp) 30 ml Q12H PRN PO 06/11/17 01:00 07/11/17 00:59 06/30/17 17:26 30 ML Ondansetron HCl (Zofran Inj) 4 mg Q6H PRN IV 06/11/17 01:00 07/11/17 00:59 06/28/17 19:50 4 MG Nitroglycerin (Nitrostat Tab) 0.4 mg UD PRN SL 06/11/17 01:00 07/11/17 00:59 Polyethylene (Miralax Powder Packet) 17 gm DAILY PRN PO 06/11/17 01:00 07/11/17 00:59 Alprazolam (Xanax Tab) 0.5 mg HS PO 06/11/17 21:00 07/11/17 20:59 06/30/17 21:30 0.5 MG Aspirin (Ecotrin Tab) 81 mg QAM PO 06/11/17 09:00 07/11/17 08:59 Future Hold 06/19/17 07:55 81 MG EZETIMIBE (Zetia Tab) 10 mg QAM PO 06/11/17 09:00 07/11/17 08:59 07/01/17 08:51 10 MG Hydralazine HCl (Apresoline Tab) 100 mg TID PO 06/11/17 09:00 07/11/17 08:59 07/01/17 08:51 100 MG Isosorbide Mononitrate (Imdur Ext Rel Tab) 60 mg BID PO 06/11/17 09:00 07/11/17 08:59 07/01/17 08:52 60 MG Labetalol HCl (Normodyne Tab) 200 mg BID PO 06/11/17 09:00 07/11/17 08:59 07/01/17 08:52 200 MG Quetiapine Fumarate (seroQUEL TAB) 25 mg HS PO 06/11/17 21:00 07/11/17 20:59 06/30/17 21:30 25 MG Miscellaneous Information (Order Awaiting Action) 1 ea QS N/A 06/11/17 08:00 07/11/17 07:59 Miscellaneous Information (Order Awaiting Action) 1 ea QS N/A 06/11/17 08:00 07/11/17 07:59 Glucose (Glucose 40% Gel) 15-30 GRAMS 15 GRAMS... UD PRN PO 06/11/17 03:45 07/11/17 03:44 Glucose (Glucose Chew Tab) 4-8 Tablets 4 Tabl... UD PRN PO 06/11/17 03:45 07/11/17 03:44 Dextrose (Dextrose 50% 50ML Syringe) 25-50ML OF 50% DW IV FOR... UD PRN IV 06/11/17 03:45 07/11/17 03:44 Glucagon (Glucagon Inj) 1 mg UD PRN SQ 06/11/17 03:45 07/11/17 03:44 Felodipine (Plendil Tabcr) 10 mg HS PO 06/11/17 21:00 07/11/17 20:59 06/30/17 20:00 10 MG Enteral Nutritional Formula (Boost Glucose Control) 1 can BIDM PO 06/12/17 08:00 07/12/17 07:59 07/01/17 08:54 1 CAN Guaifenesin/ Dextromethorphan (Robitussin-Dm Syrup) 5 ml Q6H PRN PO 06/12/17 10:45 07/12/17 10:44 06/20/17 07:57 5 ML Lactobacillus Acidophilus (Floranex Tab) 4 tab TIDM PO 06/13/17 08:00 07/13/17 07:59 07/01/17 08:50 4 TAB Furosemide 80 mg/ Syringe 8 ml @ 4 mls/min BID17 IV 06/13/17 21:00 07/13/17 20:59 07/01/17 08:53 4 MLS/MIN Oxycodone/ Acetaminophen (Percocet 5-325mg Tab) 1 tab Q4H PRN PO 06/18/17 12:00 07/02/17 11:59 07/01/17 09:10 1 TAB Insulin Glargine (Lantus Solostar Pen) 8 units QPM SC 06/19/17 21:00 07/19/17 20:59 06/30/17 20:01 8 UNITS Insulin Aspart (novoLOG ASPART) SLIDING SCALE G... ACHS SC 06/20/17 06:30 07/20/17 06:29 07/01/17 09:14 1 UNITS Albuterol/ Ipratropium (Duoneb) 3 ml Q4 PRN INH 06/19/17 12:30 07/19/17 12:29 Epoetin Arik (Procrit Inj) 10,000 units MoWeFr@0600 IV 06/22/17 06:00 07/22/17 05:59 Future hold 06/22/17 12:27 10,000 UNITS Famotidine (Pepcid Tab) 20 mg DAILY PO 06/23/17 08:00 07/23/17 07:59 07/01/17 08:53 20 MG Hydralazine HCl (HydrALAZINE INJ) 20 mg Q6 PRN IV. 06/23/17 19:15 07/23/17 19:14 Promethazine HCl (Phenergan Tab) 12.5 mg Q6H PRN PO 06/24/17 12:15 07/24/17 12:14 06/27/17 21:01 12.5 MG Morphine Sulfate (MoRPHine SULFATE INJ) 2 mg Q1H PRN IV 06/28/17 15:30 07/12/17 15:29 06/28/17 19:49 2 MG Heparin Sodium (Porcine) (Heparin Sq 5000 Unit/0.5ml) 5,000 unit Q12 SQ 06/29/17 21:00 07/29/17 20:59 07/01/17 09:15 5,000 UNIT Objective Vital Signs Date Time Temp Pulse Resp B/P (MAP) Pulse Ox O2 Delivery O2 Flow Rate FiO2 07/01/17 07:07 36.8 64 19 162/58 (92) 96 Room Air 07/01/17 00:00 98 Room Air 06/30/17 22:48 36.7 68 16 164/70 (101) 94 Room Air 06/30/17 20:07 71 174/56 (95) 06/30/17 16:00 96 Room Air 06/30/17 15:41 36.4 96 22 124/66 (85) 96 Room Air Physical Exam General Appearance: WD/WN, no apparent distress Eyes: normal inspection, EOMI, sclerae normal Neck: supple, no adenopathy, no JVD, trachea midline Respiratory/Chest: chest non-tender, lungs clear, normal breath sounds, no respiratory distress, no accessory muscle use Cardiovascular: regular rate, rhythm, no edema, no gallop, no JVD, no murmur Abdomen: normal bowel sounds, non tender, soft, no organomegaly Extremities: normal range of motion, non-tender, normal inspection, no pedal edema, no calf tenderness, normal capillary refill, pelvis stable Neurologic/Psychiatric: 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 as tested, alert, normal mood/affect, oriented x 3, + abnormal gait, + motor weakness (generalized, 1 assist for transfers) Skin: normal color, warm/dry, no rash Laboratory Results Last 24 Hours Test 06/30/17 11:34 06/30/17 16:31 06/30/17 19:38 07/01/17 07:41 Bedside Glucose 145 mg/dl 112 mg/dl 139 mg/dl 111 mg/dl Test 07/01/17 07:46 White Blood Count 8.85 K/uL Red Blood Count 3.43 M/uL Hemoglobin 10.4 g/dL Hematocrit 31.5 % Mean Corpuscular Volume 91.8 fL Mean Corpuscular Hemoglobin 30.3 pg Mean Corpuscular Hemoglobin Concent 33.0 g/dl RDW Standard Deviation 63.8 fL RDW Coefficient of Variation 18.9 % Platelet Count 128 K/uL Mean Platelet Volume 8.5 fL Sodium Level 130 mmol/L Potassium Level 4.1 mmol/L Chloride Level 102 mmol/L Carbon Dioxide Level 22 mmol/L Anion Gap 7.0 mmol/L Blood Urea Nitrogen 24 mg/dl Creatinine 3.13 mg/dl Est Creatinine Clear Calc Drug Dose 10.9 ml/min Estimated GFR () 15.2 Estimated GFR (Non- 13.1 BUN/Creatinine Ratio 7.6 Random Glucose 118 mg/dl Calcium Level 7.9 mg/dl Assessment and Plan 82 y/o F Hx CKD IV, CAD, HTN, HPL, anemia, DM II, chronic diastolic CHF, 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 Recent admissions for UTI, ARF, Cdiff. Admitted 05/19 with PNM and medication-induced agranulocytosis/neutropenia 05/19, DCd 05/26 to a rehab facility. [facility] a [facility] productive cough, SOB, nausea, weakness and a poor appetite. She denies CP, vomiting or dysuria. She is afebrile on arrival. Her initial SBP was over 200. She is mildly hypoxic. A CXR is consistent with vascular congestion but could not r/o superimposed PNM. Nausea, secondary to dyskinesia of gallbladder w/ EF of 6%, found on HIDA scan - symptoms resolved completely three days post op, eating well, no nausea or vomiting - per patient, this is first time since February that she is eating well - flatus and had 2 BM this morning - regular diet consistency - Phenergan PRN, Zofran PRN, Pepcid daily - Abdominal US 06/22- reports cholelithiasis/acute cholecystitis- IV Cipro + Flagyl- no cholecystis on HIDA, will discontinue - HIDA w/ EF of 6% - General surgery consulted, appreciate recommendations- s/p lap carlos on 06/[address] Pedro- f/u outpatient in 2 weeks - GI consulted- s/p EGD on 06/[address] Ferris, unremarkable Incidental diaphragmatic nodule found during lap carlos procedure: Biopsy taken- f/u pathology results, reviewed today, still no results Hypokalemia- RESOLVED: Replace w/ KCL supplement- follow PRP and replace PRN K is 4.1 today Diarrhea, h/o c.diff- RESOLVED SOB secondary to acute on chronic diastolic CHF exacerbation- RESOLVED: - IV Lasix 80 mg BID and Metolazone 5 mg BID- Metolazone discontinued per nephrology - Monitor I&Os and daily- negative 17.7L - ECHO 04/05/17 reviewed, EF 65%, grade I diastolic dysfunction, elevated pulmonary pressures Bronchitis- RESOLVED: - O2 protocol, wean as tolerated- now on RA w/ appropriate O2 sats - DuoNeb PRN for SOB/wheezing - Speech therapy consulted- no evidence of aspiration - No abx, no leukocytosis, and afebrile Abnormal UA: UCx w/ yeast- Diflucan 100 mg daily x7 days- completed Weakness and poor appetite, severe protein malnutrition: - Brand Strategist consulted- boost BID - Probiotic added ESRD on dialysis MWF- electronic health records specialist 3.1 today after HD on 06/29 - Consulted nephrology, appreciate recommendations - Vascular surgery consulted- s/p AVF creation and PermCath insertion on 06/[address] Montemayor- f/u outpatient in 2-3 weeks - CM to setup outpatient dialysis on MWF - Hepatitis panel- negative Anemia: - Hgb 10.4 today - s/p 1 U PRBCs on 06/14 - Epogen and JUAN PABLO being treated with Venofer as per Nephrology - Follow H&H- transfuse PRN for hgb < 7.0-8.0 CAD, HLD- STABLE: - Cont ASA 81 mg daily, Labetalol 200 mg BID, Imdur 60 mg BID, Felodipine 5 mg PO HS - STATIN INTOLERANT- continue Zetia HTN- STABLE: - Hydralazine 100 mg TID, Imdur 60 mg BID, Labetalol 200 mg BID - IV Hydralazine PRN - IV diuretics as above T2DM- CONTROLLED: Lantus 8 u HS, BSG ACHS and ISS monitor for hypoglycemia Insomnia: Continue Xanax 0.5 mg HS and Seroquel 25 mg HS GI prophylaxis: Pepcid daily DVT prophylaxis: Heparin BID Code status: LEVEL V, DNR Dispo: Hoping for [facility] at discharge- needs repeat PT/OT evaluations and re- apply for insurance authorization Continued [facility] stay due to: multiple IV medications needed Discharge planning: rehab hospital
--- NOTE | 2017-07-01 12:47 | Nephrology Progress Note ---
Nephrology Progress Note Date of Service Jul 01, 2017. Chief Complaint F/U for end-stage renal disease on hemodialysis. Tashi Vick was seen and examined in his room this morning. She had a fall this morning while she was in bathroom did not have any significant injury. Continues to have some pain at surgical site. Her appetite improved and has been eating well. Blood pressure stable. Volume status acceptable. Electrolyte acceptable. Had dialysis Sunday. Review of Systems A complete review of systems was performed. Pertinent positives are noted above. All other systems are negative. Vital Signs Last 8 Hrs Date Time Temp Pulse Resp B/P (MAP) Pulse Ox O2 Delivery O2 Flow Rate FiO2 07/01/17 07:07 36.8 64 19 162/58 (92) 96 Room Air Last Recorded Weight Weight (Kilograms): 65.400 Physical Exam GENERAL: Elderly female , AAA x 3, pleasant, healthy-appearing, not in any distress. NECK: Supple, no JVD. Right IJ tunnel dialysis catheter area with no tenderness or discharge. RESPIRATORY: Normal breathing efforts, no accessory muscle use, clear to auscultation bilaterally, no wheezes or rales. CARDIOVASCULAR: S1, S2 normal, rate rhythm regular. EXTREMITY: No lower extremity edema, left brachiocephalic AV fistula with thrill and bruit. NEURO: speech fluent. PSYCHIATRY: Normal mood and judgment Family History No pertinent family history Social History Smoking Status: Never smoker Drug Use: none Marital Status: Housing Status: lives with family Occupation: retired Laboratory Results Past 24 Hours 07/01/17 07:46 07/01/17 07:46 Test 06/30/17 11:34 06/30/17 16:31 06/30/17 19:38 07/01/17 07:41 Bedside Glucose 145 mg/dl (70-90) 112 mg/dl (70-90) 139 mg/dl (70-90) 111 mg/dl (70-90) Test 07/01/17 07:46 Red Blood Count 3.43 M/uL (4.2-5.4) Mean Corpuscular Volume 91.8 fL (80-100) Mean Corpuscular Hemoglobin 30.3 pg (25-34) Mean Corpuscular Hemoglobin Concent 33.0 g/dl (32-36) RDW Standard Deviation 63.8 fL (36.4-46.3) RDW Coefficient of Variation 18.9 % (11.5-14.5) Mean Platelet Volume 8.5 fL (7.4-10.4) Anion Gap 7.0 mmol/L (3-11) Est Creatinine Clear Calc Drug Dose 10.9 ml/min Estimated GFR () 15.2 Estimated GFR (Non- 13.1 BUN/Creatinine Ratio 7.6 (10-20) Calcium Level 7.9 mg/dl (8.5-10.1) Allergies Coded Allergies: Carbamazepine (Verified Allergy, Intermediate, RASH, 06/10/17) Erythromycin (Verified Allergy, Intermediate, RASH, 06/10/17) Carvedilol (Verified Adverse Reaction, Intermediate, DIZZINESS, VISUAL DISTURBANCES, 06/10/17) Statins (Verified Adverse Reaction, Intermediate, MUSCLE ACHES, 06/10/17) Medications Current Inpatient Medications Medications (Trade) Dose Ordered Sig/Haja Route Start Time Stop Time Status Last Admin Dose Admin Acetaminophen (Tylenol Tab) 650 mg Q4H PRN PO 06/11/17 01:00 07/11/17 00:59 Al Hydrox/Mg Hydrox/Simethicone (Maalox Max Susp) 15 ml Q4H PRN PO 06/11/17 01:00 07/11/17 00:59 Magnesium Hydroxide (Milk Of Magnesia Susp) 30 ml Q12H PRN PO 06/11/17 01:00 07/11/17 00:59 06/30/17 17:26 30 ML Ondansetron HCl (Zofran Inj) 4 mg Q6H PRN IV 06/11/17 01:00 07/11/17 00:59 06/28/17 19:50 4 MG Nitroglycerin (Nitrostat Tab) 0.4 mg UD PRN SL 06/11/17 01:00 07/11/17 00:59 Polyethylene (Miralax Powder Packet) 17 gm DAILY PRN PO 06/11/17 01:00 07/11/17 00:59 Alprazolam (Xanax Tab) 0.5 mg HS PO 06/11/17 21:00 07/11/17 20:59 06/30/17 21:30 0.5 MG Aspirin (Ecotrin Tab) 81 mg QAM PO 06/11/17 09:00 07/11/17 08:59 Future Hold 06/19/17 07:55 81 MG EZETIMIBE (Zetia Tab) 10 mg QAM PO 06/11/17 09:00 07/11/17 08:59 07/01/17 08:51 10 MG Hydralazine HCl (Apresoline Tab) 100 mg TID PO 06/11/17 09:00 07/11/17 08:59 07/01/17 08:51 100 MG Isosorbide Mononitrate (Imdur Ext Rel Tab) 60 mg BID PO 06/11/17 09:00 07/11/17 08:59 07/01/17 08:52 60 MG Labetalol HCl (Normodyne Tab) 200 mg BID PO 06/11/17 09:00 07/11/17 08:59 07/01/17 08:52 200 MG Quetiapine Fumarate (seroQUEL TAB) 25 mg HS PO 06/11/17 21:00 07/11/17 20:59 06/30/17 21:30 25 MG Miscellaneous Information (Order Awaiting Action) 1 ea QS N/A 06/11/17 08:00 07/11/17 07:59 Miscellaneous Information (Order Awaiting Action) 1 ea QS N/A 06/11/17 08:00 07/11/17 07:59 Glucose (Glucose 40% Gel) 15-30 GRAMS 15 GRAMS... UD PRN PO 06/11/17 03:45 07/11/17 03:44 Glucose (Glucose Chew Tab) 4-8 Tablets 4 Tabl... UD PRN PO 06/11/17 03:45 07/11/17 03:44 Dextrose (Dextrose 50% 50ML Syringe) 25-50ML OF 50% DW IV FOR... UD PRN IV 06/11/17 03:45 07/11/17 03:44 Glucagon (Glucagon Inj) 1 mg UD PRN SQ 06/11/17 03:45 07/11/17 03:44 Felodipine (Plendil Tabcr) 10 mg HS PO 06/11/17 21:00 07/11/17 20:59 06/30/17 20:00 10 MG Enteral Nutritional Formula (Boost Glucose Control) 1 can BIDM PO 06/12/17 08:00 07/12/17 07:59 07/01/17 08:54 1 CAN Guaifenesin/ Dextromethorphan (Robitussin-Dm Syrup) 5 ml Q6H PRN PO 06/12/17 10:45 07/12/17 10:44 06/20/17 07:57 5 ML Lactobacillus Acidophilus (Floranex Tab) 4 tab TIDM PO 06/13/17 08:00 07/13/17 07:59 07/01/17 08:50 4 TAB Furosemide 80 mg/ Syringe 8 ml @ 4 mls/min BID17 IV 06/13/17 21:00 07/13/17 20:59 07/01/17 08:53 4 MLS/MIN Oxycodone/ Acetaminophen (Percocet 5-325mg Tab) 1 tab Q4H PRN PO 06/18/17 12:00 07/02/17 11:59 07/01/17 09:10 1 TAB Insulin Glargine (Lantus Solostar Pen) 8 units QPM SC 06/19/17 21:00 07/19/17 20:59 06/30/17 20:01 8 UNITS Insulin Aspart (novoLOG ASPART) SLIDING SCALE G... ACHS SC 06/20/17 06:30 07/20/17 06:29 07/01/17 09:14 1 UNITS Albuterol/ Ipratropium (Duoneb) 3 ml Q4 PRN INH 06/19/17 12:30 07/19/17 12:29 Epoetin Arik (Procrit Inj) 10,000 units MoWeFr@0600 IV 06/22/17 06:00 07/22/17 05:59 Future hold 06/22/17 12:27 10,000 UNITS Famotidine (Pepcid Tab) 20 mg DAILY PO 06/23/17 08:00 07/23/17 07:59 07/01/17 08:53 20 MG Hydralazine HCl (HydrALAZINE INJ) 20 mg Q6 PRN IV. 06/23/17 19:15 07/23/17 19:14 Promethazine HCl (Phenergan Tab) 12.5 mg Q6H PRN PO 06/24/17 12:15 07/24/17 12:14 06/27/17 21:01 12.5 MG Morphine Sulfate (MoRPHine SULFATE INJ) 2 mg Q1H PRN IV 06/28/17 15:30 07/12/17 15:29 06/28/17 19:49 2 MG Heparin Sodium (Porcine) (Heparin Sq 5000 Unit/0.5ml) 5,000 unit Q12 SQ 06/29/17 21:00 07/29/17 20:59 07/01/17 09:15 5,000 UNIT Impression (1) Acute renal insufficiency (2) Chronic kidney disease (3) CHF exacerbation (4) Weakness Nava is a 82-year-old female with ESRD, HTN, AODM, CHF and ASCVD s/p CABG. She was admitted to the hospital with CHF exacerbation, pleural effusion and hypertensive urgency. 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 R brachiocephalic AVF placed by Dr. Motnemayor . TDC placed 06/19/17. Nava had her 1st HD treatment 06/19/17 Possible acute cholecystitis Recommendations -- currently blood pressure, volume status and electrolyte acceptable. Waiting on discharge to rehab -- Needs physical therapy for strengthening -- director of special services have set up outpatient HD at [facility] -- Will provide PONCE w/ HD -- avoid IV fluid, dose medications for GFR less than 10. --next dialysis Sunday via tunnel dialysis catheter while AV fistula is maturing Will follow
[2017-07-01 17:09] VITALS: BP 145/52; PULSE 60; TEMP 36.7; O2SAT 96
[2017-07-01] MEDS: FELODIPINE 5 MG TABCR PO SCH (20:41)
[2017-07-01] MEDS: ALPRAZOLAM 0.5 MG TAB PO SCH (20:41)
[2017-07-01] MEDS: QUETIAPINE FUMARATE 25 MG TAB PO SCH (20:41)
[2017-07-01] MEDS: INSULIN GLARGINE SOLOSTAR 100 UNITS/ML 3 ML PEN SC SCH (20:47)
[2017-07-01 21:43] VITALS: BP 142/50; PULSE 59; TEMP 36.6; O2SAT 94
[2017-07-02] VITALS (26 sets, daily range): BP systolic 111–168; BP diastolic 44–65; PULSE 60–78; TEMP 36.5–37.4; O2SAT 93–95
[2017-07-02] MEDS: EPOETIN ALFA 10,000 UNITS/ML VIAL IV SCH (06:00)
[2017-07-02] MEDS: OXYCODONE/ACETAMINOPHEN 5-325 TAB PO PRN (07:25)
[2017-07-02] MEDS: FAMOTIDINE 20 MG TAB PO SCH (07:26)
[2017-07-02] MEDS: LACTOBACILLUS ACIDOPHILUS (FLORANEX) TAB PO SCH ×3 (07:26→17:28)
[2017-07-02] MEDS: EZETIMIBE 10MG TAB PO SCH (07:26)
[2017-07-02] MEDS: INSULIN ASPART 100 UNITS/ML 3 ML PEN SC SCH ×4 (07:34→21:40)
[2017-07-02] MEDS: BOOST GLUCOSE CONTROL PO SCH ×2 (07:40→17:26)
[2017-07-02] MEDS: HEPARIN SOD 5000 UNIT/0.5 ML CARP SQ SCH ×2 (09:00→21:38)
[2017-07-02] MEDS: FUROSEMIDE INJ 80 MG in SYRINGE 0 ML IV SCH ×3 (09:00→17:26)
--- NOTE | 2017-07-02 09:24 | Surgery Progress Note ---
Surgery Progress Note Date of Service Jul 02, 2017. Subjective Post OP Day: 4 still some soreness, had nausea from smell of roast beef and not able to eat meats but eating other foods and tolerating boost Objective Vital Signs: Date Time Temp Pulse Resp B/P (MAP) Pulse Ox O2 Delivery O2 Flow Rate FiO2 07/02/17 07:12 36.5 60 20 127/61 (83) 95 07/02/17 01:01 Room Air 07/01/17 21:43 36.6 59 18 142/50 (80) 94 Room Air 07/01/17 17:09 36.7 60 18 145/52 (83) 96 07/01/17 16:00 Room Air Abdomen: non distended, soft Laboratory Results: Results Past 24 Hours Test 07/01/17 11:46 07/01/17 16:30 07/01/17 20:39 07/02/17 07:18 Range/Units Bedside Glucose 160 163 175 134 70-90 mg/dl Assessment & Plan s/p lap carlos, biopsy diaphragm nodule diet as tolerated planning for [facility] soon f/u Dr. Pedro in 2 weeks pathology pending
--- NOTE | 2017-07-02 12:25 | Nephrology Progress Note ---
Nephrology Progress Note Date of Service Jul 02, 2017. Chief Complaint F/U for end-stage renal disease on hemodialysis. Tashi Vick was seen and examined during HD this morning. Overall she is feeling much better, her appetite improving, denies any shortness of breath or chest pain. Lower extremity edema improved significantly. Blood pressure stable. Review of Systems A complete review of systems was performed. Pertinent positives are noted above. All other systems are negative. Vital Signs Last 8 Hrs Date Time Temp Pulse Resp B/P (MAP) Pulse Ox O2 Delivery O2 Flow Rate FiO2 07/02/17 07:12 36.5 60 20 127/61 (83) 95 07/02/17 01:01 Room Air Last Recorded Weight Weight (Kilograms): 65.700 Physical Exam GENERAL: Elderly female, AAA x 3, pleasant, healthy-appearing, not in any distress. NECK: Supple, no JVD. RESPIRATORY: Normal breathing efforts, no accessory muscle use, clear to auscultation bilaterally, no wheezes or rales. CARDIOVASCULAR: S1, S2 normal, rate rhythm regular. EXTREMITY: No lower extremity edema NEURO: speech fluent. PSYCHIATRY: Normal mood and judgment Family History No pertinent family history Social History Smoking Status: Never smoker Drug Use: none Marital Status: Housing Status: lives with family Occupation: retired Laboratory Results Past 24 Hours Test 07/01/17 11:46 07/01/17 16:30 07/01/17 20:39 07/02/17 07:18 Bedside Glucose 160 mg/dl (70-90) 163 mg/dl (70-90) 175 mg/dl (70-90) 134 mg/dl (70-90) Allergies Coded Allergies: Carbamazepine (Verified Allergy, Intermediate, RASH, 06/10/17) Erythromycin (Verified Allergy, Intermediate, RASH, 06/10/17) Carvedilol (Verified Adverse Reaction, Intermediate, DIZZINESS, VISUAL DISTURBANCES, 06/10/17) Statins (Verified Adverse Reaction, Intermediate, MUSCLE ACHES, 06/10/17) Medications Current Inpatient Medications Medications (Trade) Dose Ordered Sig/Haja Route Start Time Stop Time Status Last Admin Dose Admin Acetaminophen (Tylenol Tab) 650 mg Q4H PRN PO 06/11/17 01:00 07/11/17 00:59 Al Hydrox/Mg Hydrox/Simethicone (Maalox Max Susp) 15 ml Q4H PRN PO 06/11/17 01:00 07/11/17 00:59 Magnesium Hydroxide (Milk Of Magnesia Susp) 30 ml Q12H PRN PO 06/11/17 01:00 07/11/17 00:59 06/30/17 17:26 30 ML Ondansetron HCl (Zofran Inj) 4 mg Q6H PRN IV 06/11/17 01:00 07/11/17 00:59 06/28/17 19:50 4 MG Nitroglycerin (Nitrostat Tab) 0.4 mg UD PRN SL 06/11/17 01:00 07/11/17 00:59 Polyethylene (Miralax Powder Packet) 17 gm DAILY PRN PO 06/11/17 01:00 07/11/17 00:59 Alprazolam (Xanax Tab) 0.5 mg HS PO 06/11/17 21:00 07/11/17 20:59 07/01/17 20:41 0.5 MG Aspirin (Ecotrin Tab) 81 mg QAM PO 06/11/17 09:00 07/11/17 08:59 Future Hold 06/19/17 07:55 81 MG EZETIMIBE (Zetia Tab) 10 mg QAM PO 06/11/17 09:00 07/11/17 08:59 07/02/17 07:26 10 MG Hydralazine HCl (Apresoline Tab) 100 mg TID PO 06/11/17 09:00 07/11/17 08:59 07/01/17 20:41 100 MG Isosorbide Mononitrate (Imdur Ext Rel Tab) 60 mg BID PO 06/11/17 09:00 07/11/17 08:59 07/01/17 20:41 60 MG Labetalol HCl (Normodyne Tab) 200 mg BID PO 06/11/17 09:00 07/11/17 08:59 07/01/17 20:42 200 MG Quetiapine Fumarate (seroQUEL TAB) 25 mg HS PO 06/11/17 21:00 07/11/17 20:59 07/01/17 20:41 25 MG Miscellaneous Information (Order Awaiting Action) 1 ea QS N/A 06/11/17 08:00 07/11/17 07:59 Miscellaneous Information (Order Awaiting Action) 1 ea QS N/A 06/11/17 08:00 07/11/17 07:59 Glucose (Glucose 40% Gel) 15-30 GRAMS 15 GRAMS... UD PRN PO 06/11/17 03:45 07/11/17 03:44 Glucose (Glucose Chew Tab) 4-8 Tablets 4 Tabl... UD PRN PO 06/11/17 03:45 07/11/17 03:44 Dextrose (Dextrose 50% 50ML Syringe) 25-50ML OF 50% DW IV FOR... UD PRN IV 06/11/17 03:45 07/11/17 03:44 Glucagon (Glucagon Inj) 1 mg UD PRN SQ 06/11/17 03:45 07/11/17 03:44 Felodipine (Plendil Tabcr) 10 mg HS PO 06/11/17 21:00 07/11/17 20:59 07/01/17 20:41 10 MG Enteral Nutritional Formula (Boost Glucose Control) 1 can BIDM PO 06/12/17 08:00 07/12/17 07:59 07/02/17 07:40 1 CAN Guaifenesin/ Dextromethorphan (Robitussin-Dm Syrup) 5 ml Q6H PRN PO 06/12/17 10:45 07/12/17 10:44 06/20/17 07:57 5 ML Lactobacillus Acidophilus (Floranex Tab) 4 tab TIDM PO 06/13/17 08:00 07/13/17 07:59 07/02/17 07:26 4 TAB Furosemide 80 mg/ Syringe 8 ml @ 4 mls/min BID17 IV 06/13/17 21:00 07/13/17 20:59 07/01/17 16:26 4 MLS/MIN Oxycodone/ Acetaminophen (Percocet 5-325mg Tab) 1 tab Q4H PRN PO 06/18/17 12:00 07/02/17 11:59 07/02/17 07:25 1 TAB Insulin Glargine (Lantus Solostar Pen) 8 units QPM SC 06/19/17 21:00 07/19/17 20:59 07/01/17 20:47 8 UNITS Insulin Aspart (novoLOG ASPART) SLIDING SCALE G... ACHS SC 06/20/17 06:30 07/20/17 06:29 07/02/17 07:34 3 UNITS Albuterol/ Ipratropium (Duoneb) 3 ml Q4 PRN INH 06/19/17 12:30 07/19/17 12:29 Epoetin Arik (Procrit Inj) 10,000 units MoWeFr@0600 IV 06/22/17 06:00 07/22/17 05:59 Future hold 06/22/17 12:27 10,000 UNITS Famotidine (Pepcid Tab) 20 mg DAILY PO 06/23/17 08:00 07/23/17 07:59 07/02/17 07:26 20 MG Hydralazine HCl (HydrALAZINE INJ) 20 mg Q6 PRN IV. 06/23/17 19:15 07/23/17 19:14 Promethazine HCl (Phenergan Tab) 12.5 mg Q6H PRN PO 06/24/17 12:15 07/24/17 12:14 06/27/17 21:01 12.5 MG Morphine Sulfate (MoRPHine SULFATE INJ) 2 mg Q1H PRN IV 06/28/17 15:30 07/12/17 15:29 06/28/17 19:49 2 MG Heparin Sodium (Porcine) (Heparin Sq 5000 Unit/0.5ml) 5,000 unit Q12 SQ 06/29/17 21:00 07/29/17 20:59 07/01/17 20:48 5,000 UNIT Impression (1) Acute renal insufficiency (2) Chronic kidney disease (3) CHF exacerbation (4) Weakness Nava is a 82-year-old female with ESRD, HTN, AODM, CHF and ASCVD s/p CABG. She was admitted to the hospital with CHF exacerbation, pleural effusion and hypertensive urgency. 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 R brachiocephalic AVF placed by Dr. Montemayor . TDC placed 06/19/17. Nava had her 1st HD treatment 06/19/17 Possible acute cholecystitis Recommendations -- tolerating HD well, currently blood pressure, volume status and electrolyte acceptable. Waiting on discharge to rehab -- continue physical therapy for strengthening -- business services sales representative have set up outpatient HD at [facility] -- Will provide PONCE w/ HD -- avoid IV fluid, dose medications for GFR less than 10. Will follow
[2017-07-02] MEDS: ISOSORBIDE MONONITRATE 60 MG TABCR PO SCH ×2 (13:35→19:52)
[2017-07-02] MEDS: LABETALOL HCL 200 MG TAB PO SCH ×2 (13:35→19:53)
--- NOTE | 2017-07-02 15:05 | Progress Note ---
Subjective Date of Service: Jul 02, 2017. Subjective Pt evaluation today including: conversation w/ patient, conversation w/ family , physical exam, chart review, lab review, review of studies, review of inpatient medication list See patient in dialysis, looks much better, conversational, eating well, denies nausea, patient denies abdominal pain, she reports she does not like "meat", otherwise eating okay Problem List Medical Problems: (1) Acute kidney failure Status: Acute (2) Cholelithiasis Status: Acute (3) Dehydration Status: Acute (4) HTN (hypertension) Status: Acute (5) Hypertensive emergency Status: Acute (6) Influenza Status: Acute (7) Nausea and vomiting Status: Acute (8) Proteinuria Status: Acute Review of Systems Constitutional: + problem reported (Generalized weakness,), No fever, No chills , No sweats, No weight loss, No weakness, No fatigue Eyes: No worsening of vision, No eye pain, No redness, No discharge, No diplopia ENT: No hearing loss, No unusual epistaxis, No nasal symptoms, No sore throat, No tinnitus, No dental problems, No trouble swallowing Respiratory: No cough, No sputum, No wheezing, No shortness of breath, No dyspnea on exertion, No dyspnea at rest, No hemoptysis Cardiac: No chest pain, No orthopnea, No PND, No edema, No claudication, No palpitations Abdomen: No pain, No nausea, No vomiting, No diarrhea, No constipation Musculoskeletal: No joint pain, No muscle pain, No swelling, No calf pain Female : No dysuria, No urinary frequency, No hematuria, No incontinence, No abnormal vaginal bleeding, No vaginal discharge Neurologic: No memory loss, No paralysis, No weakness, No numbness/tingling, No vertigo, No balance problems Psychiatric: No depression symptoms, No anhedonism, No anxiety, No insomnia, No substance abuse Heme: No abnormal bleeding/bruising, No clotting problems, No swollen lymph nodes, No night sweats Endo: No fatigue, No excessive thirst, No excessive urination Skin: No rash, No itch, No new/changing skin lesions, No color change, No bleeding Objective Vital Signs Date Time Temp Pulse Resp B/P (MAP) Pulse Ox O2 Delivery O2 Flow Rate FiO2 07/02/17 14:31 36.6 72 20 137/55 (82) 94 07/02/17 13:33 78 166/64 (98) 07/02/17 13:15 37.0 74 168/58 (94) 07/02/17 12:45 72 135/54 07/02/17 12:30 60 134/52 07/02/17 12:15 60 132/52 07/02/17 12:00 60 121/44 07/02/17 11:45 60 126/46 07/02/17 11:30 60 122/49 07/02/17 11:15 60 133/52 07/02/17 11:00 60 111/44 07/02/17 10:45 60 122/48 07/02/17 10:30 60 129/49 07/02/17 10:15 60 121/50 07/02/17 10:00 60 131/50 07/02/17 09:45 60 119/48 07/02/17 09:30 60 116/47 07/02/17 09:15 60 121/47 07/02/17 09:00 60 134/48 07/02/17 08:53 60 143/52 07/02/17 08:44 37.1 62 129/48 (75) 07/02/17 08:00 95 Room Air 07/02/17 07:12 36.5 60 20 127/61 (83) 95 07/02/17 01:01 Room Air 07/01/17 21:43 36.6 59 18 142/50 (80) 94 Room Air 07/01/17 17:09 36.7 60 18 145/52 (83) 96 07/01/17 16:00 Room Air Physical Exam General Appearance: WD/WN, no apparent distress, + pertinent finding Eyes: normal inspection, PERRL, EOMI, sclerae normal ENT: normal ENT inspection, hearing grossly normal, pharynx normal Neck: supple, no adenopathy, thyroid normal, no JVD, no carotid bruits, trachea midline Respiratory/Chest: chest non-tender, lungs clear, normal breath sounds, no respiratory distress, no accessory muscle use Cardiovascular: regular rate, rhythm, no edema, no gallop, no JVD, no murmur Abdomen: normal bowel sounds, non tender, soft, no organomegaly, no pulsatile mass Extremities: normal range of motion, non-tender, normal inspection, no pedal edema, no calf tenderness, normal capillary refill, pelvis stable Neurologic/Psychiatric: vice president process II-XII nml as tested, no motor/sensory deficits, alert, normal mood/affect, oriented x 3, + pertinent finding (Possible balance problem) Skin: normal color, warm/dry, no rash Lymphatic: no adenopathy Laboratory Results Last 24 Hours Test 07/01/17 16:30 07/01/17 20:39 07/02/17 07:18 07/02/17 11:28 Bedside Glucose 163 mg/dl 175 mg/dl 134 mg/dl 135 mg/dl Assessment and Plan 82 y/o F readmitted June 11, 2017 with UTI, ARF, now is on dialysis, and possible acute cholecystitis has had cholecystectomy on June 28, 2017 Acute cholecystitis associated with nausea, secondary to dyskinesia of gallbladder w/ EF of 6%, found on HIDA scan, had a laparoscopic cholecystectomy, Continue stable and improving, - Abdominal US 06/22- reports cholelithiasis/acute cholecystitis- IV Cipro + Flagyl- no cholecystis on HIDA, will discontinue - HIDA w/ EF of 6% - General surgery consulted, appreciate recommendations- s/p lap carlos on 06/[address] Pedro- f/u outpatient in 2 weeks - GI consulted- s/p EGD on 06/[address] Ferris, unremarkable -Patient eating fairly tolerated diet Incidental diaphragmatic nodule found during lap carlos procedure: Biopsy taken- f/u pathology results, reviewed today, still no results Hypokalemia- RESOLVED: Replace w/ KCL supplement- follow PRP and replace PRN Diarrhea, h/o c.diff- RESOLVED SOB secondary to acute on chronic diastolic CHF exacerbation- RESOLVED on dialysis Bronchitis- RESOLVED: Abnormal UA: UCx w/ yeast- Diflucan 100 mg daily x7 days- completed Weakness and poor appetite, severe protein malnutrition:, Continue probiotics ESRD on dialysis MWF- photoengraving retoucher 3.1 today after HD on 06/29, continue dialysis as scheduled and arranged by nephrology Anemia: s/p 1 U PRBCs on 06/14, H&H is stable, is also getting Epogen and JUAN PABLO being treated with Venofer as per Nephrology CAD, HLD- STABLE: Cont ASA 81 mg daily, Labetalol 200 mg BID, Imdur 60 mg BID, Felodipine 5 mg PO HS, STATIN INTOLERANT- continue Zetia HTN- STABLE: T2DM- CONTROLLED: Lantus 8 u HS, BSG ACHS and ISS Insomnia: The above conditions stable continue current medication which include continue Xanax 0.5 mg HS and Seroquel 25 mg HS GI prophylaxis: Pepcid daily DVT prophylaxis: Heparin BID Code status: LEVEL V, DNR Dispo: Hoping for [facility] at discharge, pending for authorization Continued [facility] stay due to: multiple IV medications needed Discharge planning: rehab hospital
[2017-07-02] MEDS: ONDANSETRON INJ 2 MG/ML 2 ML VIAL IV PRN (17:45)
[2017-07-02] MEDS: FELODIPINE 5 MG TABCR PO SCH (21:13)
[2017-07-02] MEDS: ALPRAZOLAM 0.5 MG TAB PO SCH (21:13)
[2017-07-02] MEDS: QUETIAPINE FUMARATE 25 MG TAB PO SCH (21:13)
[2017-07-02] MEDS: INSULIN GLARGINE SOLOSTAR 100 UNITS/ML 3 ML PEN SC SCH (21:39)
[2017-07-03 00:15] VITALS: BP 116/56; PULSE 66; TEMP 36.6; O2SAT 94
[2017-07-03 06:53] LABS: CALCIUM 7.4 mg/dl (8.5-10.1); CREATININE 2.47 mg/dl (0.60-1.20); POTASSIUM 3.5 mmol/L (3.5-5.1)
[2017-07-03 07:43] VITALS: BP 130/45; PULSE 72; TEMP 36.6; O2SAT 93
[2017-07-03] MEDS: LACTOBACILLUS ACIDOPHILUS (FLORANEX) TAB PO SCH ×3 (08:19→17:53)
[2017-07-03] MEDS: FUROSEMIDE INJ 80 MG in SYRINGE 0 ML IV SCH ×2 (08:20→17:53)
[2017-07-03] MEDS: EZETIMIBE 10MG TAB PO SCH (08:20)
[2017-07-03] MEDS: LABETALOL HCL 200 MG TAB PO SCH ×2 (08:20→21:33)
[2017-07-03] MEDS: FAMOTIDINE 20 MG TAB PO SCH (08:20)
[2017-07-03] MEDS: ISOSORBIDE MONONITRATE 60 MG TABCR PO SCH ×2 (08:21→21:32)
[2017-07-03] MEDS: BOOST GLUCOSE CONTROL PO SCH ×2 (08:21→17:53)
[2017-07-03] MEDS: INSULIN ASPART 100 UNITS/ML 3 ML PEN SC SCH ×4 (08:24→21:41)
[2017-07-03] MEDS: HEPARIN SOD 5000 UNIT/0.5 ML CARP SQ SCH ×2 (08:24→21:40)
--- NOTE | 2017-07-03 10:17 | Nephrology Progress Note ---
Nephrology Progress Note Date of Service Jul 03, 2017. Chief Complaint F/U for end-stage renal disease on hemodialysis. Tashi Vick was seen and examined in his room this morning. She has been overall feeling well. Denies any specific symptoms. She is waiting for rehab discharge. She had dialysis yesterday, uneventful. Potassium slightly elevated this morning at 5.2. Review of Systems A complete review of systems was performed. Pertinent positives are noted above. All other systems are negative. Vital Signs Last 8 Hrs Date Time Temp Pulse Resp B/P (MAP) Pulse Ox O2 Delivery O2 Flow Rate FiO2 07/03/17 07:43 36.6 72 22 130/45 (73) 93 Room Air Last Recorded Weight Weight (Kilograms): 65.000 Physical Exam GENERAL: Elderly female, AAA x 3, pleasant, healthy-appearing, not in any distress. NECK: Supple, no JVD. RESPIRATORY: Normal breathing efforts, no accessory muscle use, clear to auscultation bilaterally, no wheezes or rales. CARDIOVASCULAR: S1, S2 normal, rate rhythm regular. EXTREMITY: No lower extremity edema NEURO: speech fluent. PSYCHIATRY: Normal mood and judgment Family History No pertinent family history Social History Smoking Status: Never smoker Drug Use: none Marital Status: Housing Status: lives with family Occupation: retired Laboratory Results Past 24 Hours 07/03/17 05:32 Test 07/02/17 11:28 07/02/17 16:21 07/02/17 20:08 07/03/17 05:32 Bedside Glucose 135 mg/dl (70-90) 149 mg/dl (70-90) 235 mg/dl (70-90) Anion Gap 9.0 mmol/L (3-11) Est Creatinine Clear Calc Drug Dose 13.8 ml/min Estimated GFR () 20.2 Estimated GFR (Non- 17.4 BUN/Creatinine Ratio 6.6 (10-20) Calcium Level 7.4 mg/dl (8.5-10.1) Magnesium Level 1.9 mg/dl (1.8-2.4) Test 07/03/17 07:49 Bedside Glucose 124 mg/dl (70-90) Allergies Coded Allergies: Carbamazepine (Verified Allergy, Intermediate, RASH, 06/10/17) Erythromycin (Verified Allergy, Intermediate, RASH, 06/10/17) Carvedilol (Verified Adverse Reaction, Intermediate, DIZZINESS, VISUAL DISTURBANCES, 06/10/17) Statins (Verified Adverse Reaction, Intermediate, MUSCLE ACHES, 06/10/17) Medications Current Inpatient Medications Medications (Trade) Dose Ordered Sig/Haja Route Start Time Stop Time Status Last Admin Dose Admin Acetaminophen (Tylenol Tab) 650 mg Q4H PRN PO 06/11/17 01:00 07/11/17 00:59 Al Hydrox/Mg Hydrox/Simethicone (Maalox Max Susp) 15 ml Q4H PRN PO 06/11/17 01:00 07/11/17 00:59 Magnesium Hydroxide (Milk Of Magnesia Susp) 30 ml Q12H PRN PO 06/11/17 01:00 07/11/17 00:59 06/30/17 17:26 30 ML Ondansetron HCl (Zofran Inj) 4 mg Q6H PRN IV 06/11/17 01:00 07/11/17 00:59 07/02/17 17:45 4 MG Nitroglycerin (Nitrostat Tab) 0.4 mg UD PRN SL 06/11/17 01:00 07/11/17 00:59 Polyethylene (Miralax Powder Packet) 17 gm DAILY PRN PO 06/11/17 01:00 07/11/17 00:59 Alprazolam (Xanax Tab) 0.5 mg HS PO 06/11/17 21:00 07/11/17 20:59 07/02/17 21:13 0.5 MG Aspirin (Ecotrin Tab) 81 mg QAM PO 06/11/17 09:00 07/11/17 08:59 Future Hold 06/19/17 07:55 81 MG EZETIMIBE (Zetia Tab) 10 mg QAM PO 06/11/17 09:00 07/11/17 08:59 07/03/17 08:20 10 MG Hydralazine HCl (Apresoline Tab) 100 mg TID PO 06/11/17 09:00 07/11/17 08:59 07/03/17 08:20 100 MG Isosorbide Mononitrate (Imdur Ext Rel Tab) 60 mg BID PO 06/11/17 09:00 07/11/17 08:59 07/03/17 08:21 60 MG Labetalol HCl (Normodyne Tab) 200 mg BID PO 06/11/17 09:00 07/11/17 08:59 07/03/17 08:20 200 MG Quetiapine Fumarate (seroQUEL TAB) 25 mg HS PO 06/11/17 21:00 07/11/17 20:59 07/02/17 21:13 25 MG Miscellaneous Information (Order Awaiting Action) 1 ea QS N/A 06/11/17 08:00 07/11/17 07:59 Miscellaneous Information (Order Awaiting Action) 1 ea QS N/A 06/11/17 08:00 07/11/17 07:59 Glucose (Glucose 40% Gel) 15-30 GRAMS 15 GRAMS... UD PRN PO 06/11/17 03:45 07/11/17 03:44 Glucose (Glucose Chew Tab) 4-8 Tablets 4 Tabl... UD PRN PO 06/11/17 03:45 07/11/17 03:44 Dextrose (Dextrose 50% 50ML Syringe) 25-50ML OF 50% DW IV FOR... UD PRN IV 06/11/17 03:45 07/11/17 03:44 Glucagon (Glucagon Inj) 1 mg UD PRN SQ 06/11/17 03:45 07/11/17 03:44 Felodipine (Plendil Tabcr) 10 mg HS PO 06/11/17 21:00 07/11/17 20:59 07/02/17 21:13 10 MG Enteral Nutritional Formula (Boost Glucose Control) 1 can BIDM PO 06/12/17 08:00 07/12/17 07:59 07/03/17 08:21 1 CAN Guaifenesin/ Dextromethorphan (Robitussin-Dm Syrup) 5 ml Q6H PRN PO 06/12/17 10:45 07/12/17 10:44 06/20/17 07:57 5 ML Lactobacillus Acidophilus (Floranex Tab) 4 tab TIDM PO 06/13/17 08:00 07/13/17 07:59 07/03/17 08:19 4 TAB Furosemide 80 mg/ Syringe 8 ml @ 4 mls/min BID17 IV 06/13/17 21:00 07/13/17 20:59 07/03/17 08:20 4 MLS/MIN Insulin Glargine (Lantus Solostar Pen) 8 units QPM SC 06/19/17 21:00 07/19/17 20:59 07/02/17 21:39 8 UNITS Insulin Aspart (novoLOG ASPART) SLIDING SCALE G... ACHS SC 06/20/17 06:30 07/20/17 06:29 07/03/17 08:24 2 UNITS Albuterol/ Ipratropium (Duoneb) 3 ml Q4 PRN INH 06/19/17 12:30 07/19/17 12:29 Epoetin Arik (Procrit Inj) 10,000 units MoWeFr@0600 IV 06/22/17 06:00 07/22/17 05:59 Future hold 06/22/17 12:27 10,000 UNITS Famotidine (Pepcid Tab) 20 mg DAILY PO 06/23/17 08:00 07/23/17 07:59 07/03/17 08:20 20 MG Hydralazine HCl (HydrALAZINE INJ) 20 mg Q6 PRN IV. 06/23/17 19:15 07/23/17 19:14 Promethazine HCl (Phenergan Tab) 12.5 mg Q6H PRN PO 06/24/17 12:15 07/24/17 12:14 06/27/17 21:01 12.5 MG Morphine Sulfate (MoRPHine SULFATE INJ) 2 mg Q1H PRN IV 06/28/17 15:30 07/12/17 15:29 06/28/17 19:49 2 MG Heparin Sodium (Porcine) (Heparin Sq 5000 Unit/0.5ml) 5,000 unit Q12 SQ 06/29/17 21:00 07/29/17 20:59 07/03/17 08:24 5,000 UNIT Impression (1) Acute renal insufficiency (2) Chronic kidney disease (3) CHF exacerbation (4) Weakness Nava is a 82-year-old female with ESRD, HTN, AODM, CHF and ASCVD s/p CABG. She was admitted to the hospital with CHF exacerbation, pleural effusion and hypertensive urgency. 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 R brachiocephalic AVF placed by Dr. Montemayor . TDC placed 06/19/17. Nava had her 1st HD treatment 06/19/17 Possible acute cholecystitis Recommendations -- had dialysis yesterday, this morning potassium was slightly elevated and she was given Kayexalate 15 g p.o. x1 dose, currently blood pressure, volume status and electrolyte acceptable. Waiting on discharge to rehab -- continue physical therapy for strengthening -- director of ancillary services have set up outpatient HD at [facility] -- Will provide PONCE w/ HD -- avoid IV fluid, dose medications for GFR less than 10. Will follow
--- NOTE | 2017-07-03 13:56 | Progress Note ---
Subjective Date of Service: Jul 03, 2017. Subjective Pt evaluation today including: conversation w/ patient, physical exam, chart review, lab review, review of studies, conversation w/ senior clinical consultant, review of inpatient medication list Voiding: no voiding problems Was having nausea yesterday afternoon after dialysis, totally resolved, eating fair, has been up and walk with therapist in the hallway, generally feeling better Problem List Medical Problems: (1) Acute kidney failure Status: Acute (2) Cholelithiasis Status: Acute (3) Dehydration Status: Acute (4) HTN (hypertension) Status: Acute (5) Hypertensive emergency Status: Acute (6) Influenza Status: Acute (7) Nausea and vomiting Status: Acute (8) Proteinuria Status: Acute Review of Systems Constitutional: + weakness, + fatigue, No fever, No chills, No sweats, No weight loss, No problem reported Eyes: No worsening of vision, No eye pain, No redness, No discharge, No diplopia ENT: No hearing loss, No unusual epistaxis, No nasal symptoms, No sore throat, No tinnitus, No dental problems, No trouble swallowing Respiratory: No cough, No sputum, No wheezing, No shortness of breath, No dyspnea on exertion, No dyspnea at rest, No hemoptysis Cardiac: No chest pain, No orthopnea, No PND, No edema, No claudication, No palpitations Abdomen: No pain, No nausea, No vomiting, No diarrhea, No constipation Musculoskeletal: No joint pain, No muscle pain, No swelling, No calf pain Female : No dysuria, No urinary frequency, No hematuria, No incontinence, No abnormal vaginal bleeding, No vaginal discharge Neurologic: No memory loss, No paralysis, No weakness, No numbness/tingling, No vertigo, No balance problems Psychiatric: No depression symptoms, No anhedonism, No anxiety, No insomnia, No substance abuse Heme: No abnormal bleeding/bruising, No clotting problems, No swollen lymph nodes, No night sweats Endo: No fatigue, No excessive thirst, No excessive urination Skin: No rash, No itch, No new/changing skin lesions, No color change, No bleeding Objective Vital Signs Date Time Temp Pulse Resp B/P (MAP) Pulse Ox O2 Delivery O2 Flow Rate FiO2 07/03/17 08:30 Room Air 07/03/17 07:43 36.6 72 22 130/45 (73) 93 Room Air 07/03/17 00:15 Room Air 07/03/17 00:15 36.6 66 18 116/56 (76) 94 Room Air 07/02/17 19:48 37.4 77 20 150/57 (88) 93 Room Air 07/02/17 17:40 75 158/65 (96) 07/02/17 16:00 95 Room Air 07/02/17 14:31 36.6 72 20 137/55 (82) 94 Physical Exam General Appearance: WD/WN, no apparent distress, + pertinent finding (Pleasant conversational, looks better) Eyes: normal inspection, PERRL, EOMI, sclerae normal ENT: normal ENT inspection, hearing grossly normal, pharynx normal Neck: supple, no adenopathy, thyroid normal, no JVD, no carotid bruits, trachea midline Respiratory/Chest: chest non-tender, normal breath sounds, no respiratory distress, no accessory muscle use, + decreased breath sounds Cardiovascular: regular rate, rhythm, no edema, no gallop, no JVD, no murmur Abdomen: normal bowel sounds, non tender, soft, no organomegaly, no pulsatile mass Extremities: normal range of motion, non-tender, normal inspection, no pedal edema, no calf tenderness, normal capillary refill, pelvis stable, + pertinent finding (Bilateral hands no more swelling, bilateral lower extremities trace edema or 1+ edema which is significant better) Neurologic/Psychiatric: binding folder machine II-XII nml as tested, no motor/sensory deficits, alert, normal mood/affect, oriented x 3 Skin: normal color, warm/dry, no rash Lymphatic: no adenopathy Laboratory Results Last 24 Hours Test 07/02/17 16:21 07/02/17 20:08 07/03/17 05:32 07/03/17 07:49 Bedside Glucose 149 mg/dl 235 mg/dl 124 mg/dl Sodium Level 133 mmol/L Potassium Level 3.5 mmol/L Chloride Level 99 mmol/L Carbon Dioxide Level 25 mmol/L Anion Gap 9.0 mmol/L Blood Urea Nitrogen 16 mg/dl Creatinine 2.47 mg/dl Est Creatinine Clear Calc Drug Dose 13.8 ml/min Estimated GFR () 20.2 Estimated GFR (Non- 17.4 BUN/Creatinine Ratio 6.6 Random Glucose 126 mg/dl Calcium Level 7.4 mg/dl Magnesium Level 1.9 mg/dl Test 07/03/17 11:40 Bedside Glucose 188 mg/dl Assessment and Plan 82 y/o F readmitted June 11, 2017 with UTI, ARF, now is on dialysis, and possible acute cholecystitis has had cholecystectomy on June 28, 2017 Acute cholecystitis associated with nausea, secondary to dyskinesia of gallbladder w/ EF of 6%, found on HIDA scan, had a laparoscopic cholecystectomy, Continue stable and improving, - Abdominal US 06/22- reports cholelithiasis/acute cholecystitis- IV Cipro + Flagyl- no cholecystis on HIDA, will discontinue - HIDA w/ EF of 6% - General surgery consulted, appreciate recommendations- s/p lap carlos on 06/[address] Pedro- f/u outpatient in 2 weeks - GI consulted- s/p EGD on 06/[address] Ferris, unremarkable - eating fairly, tolerated diet Incidental diaphragmatic nodule found during lap carlos procedure: Biopsy taken- f/u pathology results, reviewed today, still no results Pathology report: PERITONEUM, NODULE, BIOPSY: MESOTHELIAL CYST. Hypokalemia- RESOLVED: Replace w/ KCL supplement- follow PRP and replace PRN Diarrhea, h/o c.diff- RESOLVED SOB secondary to acute on chronic diastolic CHF exacerbation- RESOLVED on dialysis Bronchitis- RESOLVED: Abnormal UA: UCx w/ yeast- Diflucan 100 mg daily x7 days- completed Weakness and poor appetite, severe protein malnutrition code continue current care, continue probiotics ESRD on dialysis MWF- donations attendant 3.1 today after HD on 06/29, continue dialysis as scheduled and arranged by nephrology Anemia: s/p 1 U PRBCs on 06/14, H&H is stable, is also getting Epogen and JUAN PABLO being treated with Venofer as per Nephrology CAD, HLD- STABLE: Cont ASA 81 mg daily, Labetalol 200 mg BID, Imdur 60 mg BID, Felodipine 5 mg PO HS, STATIN INTOLERANT- continue Zetia HTN- STABLE: T2DM- CONTROLLED: Lantus 8 u HS, BSG ACHS and ISS Insomnia: The above conditions stable continue current medication GI prophylaxis: Pepcid daily DVT prophylaxis: Heparin BID Code status: LEVEL V, DNR Dispo: Hoping for [facility] at discharge, pending for authorization Continued [facility] stay due to: multiple IV medications needed Discharge planning: rehab hospital
[2017-07-03 15:00] VITALS: BP 151/62; PULSE 67; TEMP 36.7; O2SAT 95
[2017-07-03 21:31] VITALS: BP 175/56; PULSE 78
[2017-07-03] MEDS: FELODIPINE 5 MG TABCR PO SCH (21:32)
[2017-07-03] MEDS: QUETIAPINE FUMARATE 25 MG TAB PO SCH (21:32)
[2017-07-03] MEDS: ALPRAZOLAM 0.5 MG TAB PO SCH (21:35)
[2017-07-03] MEDS: INSULIN GLARGINE SOLOSTAR 100 UNITS/ML 3 ML PEN SC SCH (21:41)
[2017-07-03 23:29] VITALS: BP 138/58; PULSE 66; TEMP 36.6; O2SAT 95
[2017-07-04] VITALS (19 sets, daily range): BP systolic 120–164; BP diastolic 47–64; PULSE 68–84; TEMP 36.7–37.3; O2SAT 93–94
[2017-07-04] MEDS: ASPIRIN 81 MG ECTAB PO SCH (07:55)
[2017-07-04] MEDS: EZETIMIBE 10MG TAB PO SCH (07:55)
[2017-07-04] MEDS: LACTOBACILLUS ACIDOPHILUS (FLORANEX) TAB PO SCH ×2 (07:55→13:06)
[2017-07-04] MEDS: FAMOTIDINE 20 MG TAB PO SCH (07:55)
[2017-07-04] MEDS: BOOST GLUCOSE CONTROL PO SCH (07:57)
[2017-07-04] MEDS: FUROSEMIDE INJ 80 MG in SYRINGE 0 ML IV SCH (07:58)
[2017-07-04] MEDS: HEPARIN SOD 5000 UNIT/0.5 ML CARP SQ SCH (08:06)
[2017-07-04] MEDS: INSULIN ASPART 100 UNITS/ML 3 ML PEN SC SCH ×2 (09:00→13:23)
--- NOTE | 2017-07-04 10:37 | Nephrology Progress Note ---
Nephrology Progress Note Date of Service Jul 04, 2017. Chief Complaint F/U for end-stage renal disease on hemodialysis. Subjective Nava was seen and examined during HD. Tolerating well, BP, stable. Review of Systems A complete review of systems was performed. Pertinent positives are noted above. All other systems are negative. Vital Signs Last 8 Hrs Date Time Temp Pulse Resp B/P (MAP) Pulse Ox O2 Delivery O2 Flow Rate FiO2 07/04/17 07:33 36.7 68 18 144/59 (87) 94 Room Air 07/04/17 00:00 Room Air Last Recorded Weight Weight (Kilograms): 63.800 Physical Exam GENERAL: Elderly female, AAA x 3, pleasant, healthy-appearing, not in any distress. NECK: Supple, no JVD. RESPIRATORY: Normal breathing efforts, no accessory muscle use, clear to auscultation bilaterally, no wheezes or rales. CARDIOVASCULAR: S1, S2 normal, rate rhythm regular. EXTREMITY: No lower extremity edema NEURO: speech fluent. PSYCHIATRY: Normal mood and judgment Family History No pertinent family history Social History Smoking Status: Never smoker Drug Use: none Marital Status: Housing Status: lives with family Occupation: retired Laboratory Results Past 24 Hours Test 07/03/17 07:49 07/03/17 11:40 07/03/17 16:54 07/03/17 20:12 Bedside Glucose 124 mg/dl (70-90) 188 mg/dl (70-90) 142 mg/dl (70-90) 253 mg/dl (70-90) Allergies Coded Allergies: Carbamazepine (Verified Allergy, Intermediate, RASH, 06/10/17) Erythromycin (Verified Allergy, Intermediate, RASH, 06/10/17) Carvedilol (Verified Adverse Reaction, Intermediate, DIZZINESS, VISUAL DISTURBANCES, 06/10/17) Statins (Verified Adverse Reaction, Intermediate, MUSCLE ACHES, 06/10/17) Medications Current Inpatient Medications Medications (Trade) Dose Ordered Sig/Haja Route Start Time Stop Time Status Last Admin Dose Admin Acetaminophen (Tylenol Tab) 650 mg Q4H PRN PO 06/11/17 01:00 07/11/17 00:59 Al Hydrox/Mg Hydrox/Simethicone (Maalox Max Susp) 15 ml Q4H PRN PO 06/11/17 01:00 07/11/17 00:59 Magnesium Hydroxide (Milk Of Magnesia Susp) 30 ml Q12H PRN PO 06/11/17 01:00 07/11/17 00:59 06/30/17 17:26 30 ML Ondansetron HCl (Zofran Inj) 4 mg Q6H PRN IV 06/11/17 01:00 07/11/17 00:59 07/02/17 17:45 4 MG Nitroglycerin (Nitrostat Tab) 0.4 mg UD PRN SL 06/11/17 01:00 07/11/17 00:59 Polyethylene (Miralax Powder Packet) 17 gm DAILY PRN PO 06/11/17 01:00 07/11/17 00:59 Alprazolam (Xanax Tab) 0.5 mg HS PO 06/11/17 21:00 07/11/17 20:59 07/03/17 21:35 0.5 MG Aspirin (Ecotrin Tab) 81 mg QAM PO 06/11/17 09:00 07/11/17 08:59 Future hold 06/19/17 07:55 81 MG EZETIMIBE (Zetia Tab) 10 mg QAM PO 06/11/17 09:00 07/11/17 08:59 07/03/17 08:20 10 MG Hydralazine HCl (Apresoline Tab) 100 mg TID PO 06/11/17 09:00 07/11/17 08:59 07/03/17 21:33 100 MG Isosorbide Mononitrate (Imdur Ext Rel Tab) 60 mg BID PO 06/11/17 09:00 07/11/17 08:59 07/03/17 21:32 60 MG Labetalol HCl (Normodyne Tab) 200 mg BID PO 06/11/17 09:00 07/11/17 08:59 07/03/17 21:33 200 MG Quetiapine Fumarate (seroQUEL TAB) 25 mg HS PO 06/11/17 21:00 07/11/17 20:59 07/03/17 21:32 25 MG Miscellaneous Information (Order Awaiting Action) 1 ea QS N/A 06/11/17 08:00 07/11/17 07:59 Miscellaneous Information (Order Awaiting Action) 1 ea QS N/A 06/11/17 08:00 07/11/17 07:59 Glucose (Glucose 40% Gel) 15-30 GRAMS 15 GRAMS... UD PRN PO 06/11/17 03:45 07/11/17 03:44 Glucose (Glucose Chew Tab) 4-8 Tablets 4 Tabl... UD PRN PO 06/11/17 03:45 07/11/17 03:44 Dextrose (Dextrose 50% 50ML Syringe) 25-50ML OF 50% DW IV FOR... UD PRN IV 06/11/17 03:45 07/11/17 03:44 Glucagon (Glucagon Inj) 1 mg UD PRN SQ 06/11/17 03:45 07/11/17 03:44 Felodipine (Plendil Tabcr) 10 mg HS PO 06/11/17 21:00 07/11/17 20:59 07/03/17 21:32 10 MG Enteral Nutritional Formula (Boost Glucose Control) 1 can BIDM PO 06/12/17 08:00 07/12/17 07:59 07/03/17 17:53 1 CAN Guaifenesin/ Dextromethorphan (Robitussin-Dm Syrup) 5 ml Q6H PRN PO 06/12/17 10:45 07/12/17 10:44 06/20/17 07:57 5 ML Lactobacillus Acidophilus (Floranex Tab) 4 tab TIDM PO 06/13/17 08:00 07/13/17 07:59 07/03/17 17:53 4 TAB Furosemide 80 mg/ Syringe 8 ml @ 4 mls/min BID17 IV 06/13/17 21:00 07/13/17 20:59 07/03/17 17:53 4 MLS/MIN Insulin Glargine (Lantus Solostar Pen) 8 units QPM SC 06/19/17 21:00 07/19/17 20:59 07/03/17 21:41 8 UNITS Insulin Aspart (novoLOG ASPART) SLIDING SCALE G... ACHS SC 06/20/17 06:30 07/20/17 06:29 07/03/17 21:41 3 UNITS Albuterol/ Ipratropium (Duoneb) 3 ml Q4 PRN INH 06/19/17 12:30 07/19/17 12:29 Epoetin Arik (Procrit Inj) 10,000 units MoWeFr@0600 IV 06/22/17 06:00 07/22/17 05:59 Future hold 06/22/17 12:27 10,000 UNITS Famotidine (Pepcid Tab) 20 mg DAILY PO 06/23/17 08:00 07/23/17 07:59 07/03/17 08:20 20 MG Hydralazine HCl (HydrALAZINE INJ) 20 mg Q6 PRN IV. 06/23/17 19:15 07/23/17 19:14 Promethazine HCl (Phenergan Tab) 12.5 mg Q6H PRN PO 06/24/17 12:15 07/24/17 12:14 06/27/17 21:01 12.5 MG Morphine Sulfate (MoRPHine SULFATE INJ) 2 mg Q1H PRN IV 06/28/17 15:30 07/12/17 15:29 06/28/17 19:49 2 MG Heparin Sodium (Porcine) (Heparin Sq 5000 Unit/0.5ml) 5,000 unit Q12 SQ 06/29/17 21:00 07/29/17 20:59 07/03/17 21:40 5,000 UNIT Impression (1) Acute renal insufficiency (2) Chronic kidney disease (3) CHF exacerbation (4) Weakness Nava is a 82-year-old female with ESRD, HTN, AODM, CHF and ASCVD s/p CABG. She was admitted to the hospital with CHF exacerbation, pleural effusion and hypertensive urgency. 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 R brachiocephalic AVF placed by Dr. Montemayor . TDC placed 06/19/17. Nava had her 1st HD treatment 06/19/17 Possible acute cholecystitis Recommendations -- change time to 3:30 min per pt request, should be fine as she still has some residual renal function. currently blood pressure, volume status and electrolyte acceptable. Waiting on discharge to rehab -- continue physical therapy for strengthening -- building services coordinator have set up outpatient HD at [facility] -- Will provide PONCE w/ HD -- avoid IV fluid, dose medications for GFR less than 10. Will follow
[2017-07-04] MEDS: EPOETIN ALFA 10,000 UNITS/ML VIAL IV SCH (11:04)
[2017-07-04] MEDS ORDERED: NUTR-7 PO (12:37)
[2017-07-04] MEDS ORDERED: ALPR-411 PO (12:37)
[2017-07-04] MEDS ORDERED: INSDGIPEN SC (12:37)
[2017-07-04] MEDS ORDERED: FAMO1TAB47 PO (12:37)
[2017-07-04] MEDS ORDERED: PLN5 PO (12:37)
--- NOTE | 2017-07-04 12:38 | Discharge Instructions ---
Discharge Instructions Date of Service Jul 04, 2017. Admission Reason for Admission: Chf Exacerbation, Weakness Discharge Discharge Diagnosis / Problem: CHF exacerbation and fluid overload Discharge Goals Goal(s): Decrease discomfort, Improve function, Increase independence, Improve disease control, Improve nutritional status, Learn about illness, Diagnostic testing, Therapeutic intervention, Prevent Disease Progression Activity Recommendations Activity Level: Up Ad Kylah Therapies: Physical Therapy, Occupational Therapy . Additional Information Patient informed of condition: Yes Advance Directives: Yes DNR: Yes Level of Care: Acute Rehab Communicable Disease: No Prognosis: Other (Guarded) Oxygen at (LPM): no Dangelo Catheter: No Instructions / Follow-Up Instructions / Follow-Up You have acute renal failure, with end-stage renal disease, now is on dialysis , continue dialysis as instructed per nephrology You have acute cholecystitis has had cholecystectomy on June 28, 2017 You have severe protein malnutrition , continue current diet - you need to follow up with your primary care physician in 1 week, - take medication as instructed, never overdose or any misuse, or take with alcohol, because misuse of medicine may cause organ damage or , call your primary care physician if have questions of medicaitons. - call your primary care physician OR go to local emergency room if has any fever/chill, chest pain, shortness of breathing, nausea/vomiting/abdominal pain , facial droop/slurry speech/local weakness, or if has any questions. - fall precaution - diet as instructed - you need to follow up with your subspecialists Current Hospital Diet Patient's current hospital diet: Diabetes Type 2 Diet, Low Sodium Diet (2gm Na) , Regular Diet Discharge Diet Recommended Diet: Diabetes Type 2 Diet Procedures Procedures Performed: Laparoscopic cholecystectomy, biopsy of diaphragmatic nodule with primary repair of the diaphragm. Pending Studies Studies pending at discharge: no Physician Orders On Transfer POLST Discussion: without POLST completion Laboratory Results Hemoglobin A1c Test 04/06/17 06:53 Range/Units Estimated Average Glucose 157 mg/dl Hemoglobin A1c 7.1 H 4.5-5.6 % Lipid Panel Test 04/15/17 04:14 Range/Units Triglycerides Level 145 0-150 mg/dl Cholesterol Level 156 0-200 mg/dl HDL Cholesterol 38 mg/dl Cholesterol/HDL Ratio 4.1 LDL Cholesterol, Calculated 89 mg/dl Medical Emergencies . Who to Call and When: Medical Emergencies: If at any time you feel your situation is an emergency, please call 911 immediately. . Non-Emergent Contact Non-Emergency issues call your: Primary Care Provider, Conveyancer . . "Provider Documentation" section prepared by Dave Negrete. . Core Measure Problem Core Measures: None
--- NOTE | 2017-07-04 12:56 | Discharge Summary ---
Discharge Summary Date of Service Jul 04, 2017. Discharge Summary Admission Date: Jun 11, 2017 at 01:08 Discharge Date: Jul 04, 2017 Discharge Disposition: Rehab Principal Diagnosis: Acute on chronic CHF exacerbation Problems/Secondary Diagnoses: acute renal failure, with end-stage renal disease, now is on dialysis, acute cholecystitis has had cholecystectomy on June 28, 2017 severe protein malnutrition Immunizations: Have You Had Influenza Vaccine: N/A History of Tetanus Vaccine?: Yes History of Pneumococcal: Yes History of Hepatitis B Vaccine: No Procedures: PermCath, laparoscopic cholecystectomy Consultations: GI, surgeon, gas generator operator, movement education specialist, Medication Reconciliation New Medications: Famotidine (Famotidine) 20 Mg Tab 20 MG PO DAILY for 7 Days, TAB Felodipine (Felodipine ER) 5 Mg Tabcr 10 MG PO HS for 30 Days Nutritional Supplements (Boost) 1 Liq Liq 1 CAN PO BIDM for 30 Days Changed Medications: Insulin Glargine (Lantus Solostar) 100 Unit/Ml Inj 8 UNITS SC QPM, #1 PEN (Changed from: 16 UNITS) Continued Medications: Acetaminophen (Tylenol Extra Strength) 500 Mg Tab 500-1000 MG PO TID PRN for Pain Alprazolam (Xanax) 0.5 Mg Tab 0.5 MG PO HS for 3 Days, #3 (This prescription has been renewed) Aspirin (Aspirin Ec) 81 Mg Tab 81 MG PO QAM Cholecalciferol (Vitamin D3) 5,000 Unit Chw 1 TAB PO QDL Cyclosporine (Ophth) (Restasis) 0.05 % Emu 1 DROP OP BID, BTL Ezetimibe (Zetia) 10 Mg Tab 10 MG PO QAM, TAB Fluorouracil (Topical) (Efudex) 5 % Cre 1 APPLN TOP BID for 14 Days, #40 GM APPLY THIN LAYER TO AFFECTED AREA. Hydralazine Hcl (Apresoline) 50 Mg Tab 2 TAB PO TID, TAB Insulin Aspart (Novolog Flexpen) 100 Units/Ml Inj 0 UNITS SC AC, #1 PEN use sliding scale/low dose carb coverage per institutional protocol Ipratropium-Albuterol (Duoneb) 3 Ml Nebu 3 ML INH Q6R PRN for Shortness of Breath, #30 Isosorbide Mononitrate Ext Rel (Imdur Ext Rel) 60 Mg Ertab 60 MG PO BID, TAB TAKE ONE TAB IN THE MORNING AND ONE TAB AT NOON Labetalol Hcl (Labetalol Hcl) 200 Mg Tab 200 MG PO BID, TAB Melatonin (Kp Melatonin) 3 Mg Tab 3 MG PO HS PRN for Sleep, TAB Saxton-3 Fatty Acids (Fish Oil) 1,000 Mg Cap 1000 MG PO DAILY Quetiapine Fumarate (Quetiapine Fumarate) 25 Mg Tab 25 MG PO HS, #30 TAB Discontinued Medications: Amoxicillin & Pot Clavulanate (Augmentin 875-125 mg) 1 Tab Tab 1 TAB PO BID, #14 TAB Felodipine (Plendil) 5 Mg Tabcr 5 MG PO HS, TAB Furosemide (Lasix) 20 Mg Tab 20 MG PO DAILY, TAB Discharge Exam See patient in the dialysis, feeling tired, however conversational following commands, smiling, was feeling dizziness when up walk with therapy yesterday, no disease is currently when lying flat Mild nausea yesterday, otherwise has been eating fair, Review of Systems: Constitutional: + weakness, + fatigue, No fever, No chills, No sweats, No weight loss, No problem reported Eyes: No worsening of vision, No eye pain, No redness, No discharge, No diplopia, No problem reported ENT: No hearing loss, No unusual epistaxis, No nasal symptoms, No sore throat, No tinnitus, No dental problems, No trouble swallowing, No problem reported Respiratory: No cough, No sputum, No wheezing, No dyspnea on exertion, No dyspnea at rest, No hemoptysis, No problem reported Cardiovascular: No chest pain, No orthopnea, No PND, No edema, No claudication, No palpitations, No problem reported Abdomen: No pain, No nausea, No vomiting, No diarrhea, No constipation, No GI bleeding, No problem reported Musculoskeletal: No joint pain, No muscle pain, No swelling, No calf pain, No problem reported Genitourinary - Female: No dysuria, No urinary frequency, No urinary urgency , No urinary incontinence, No urinary retention, No hematuria, No dysmenorrhea, No menorrhagia, No metrorrhagia, No rash, No vaginal bleeding, No vaginal discharge, No vaginal itching, No vulvodynia, No , No problem reported Neurologic: No memory loss, No paralysis, No weakness, No numbness/tingling , No vertigo, No balance problems, No problem reported Psychiatric: No depression symptoms, No anhedonism, No anxiety, No insomnia , No substance abuse, No problem reported Integumentary: No rash, No itch, No new/changing skin lesions, No color change, No bleeding, No problem reported Physical Exam: General Appearance: WD/WN, no apparent distress, + pertinent finding (Mild pale) Eyes: normal inspection, PERRL, EOMI ENT: normal ENT inspection, TMs normal Neck: supple, no adenopathy Respiratory/Chest: chest non-tender, + decreased breath sounds Cardiovascular: regular rate, rhythm, no edema, no gallop, no JVD Abdomen / GI: normal bowel sounds, non tender, soft Extremities: normal inspection, no calf tenderness, normal capillary refill Neurologic/Psychiatric: quartz mounter II-XII nml as tested, no motor/sensory deficits , alert, normal mood/affect Skin: normal color Hospital Course 82 y/o F readmitted June 11, 2017 with UTI, ARF, now is on dialysis, and possible acute cholecystitis has had cholecystectomy on June 28, 2017 Acute on chronic diastolic CHF exacerbation with fluid overload, stable and improved after starting dialysis Acute cholecystitis associated with nausea, secondary to dyskinesia of gallbladder w/ EF of 6%, found on HIDA scan, had a laparoscopic cholecystectomy, Continue stable and improving, - Abdominal US 06/22- reports cholelithiasis/acute cholecystitis- IV Cipro + Flagyl- no cholecystis on HIDA, will discontinue - HIDA w/ EF of 6% - General surgery consulted, appreciate recommendations- s/p lap carlos on 06/[address] Pedro- f/u outpatient in 2 weeks - GI consulted- s/p EGD on 06/[address] Ferris, unremarkable - eating fairly, tolerated diet Incidental diaphragmatic nodule found during lap carlos procedure: Biopsy taken- f/u pathology results, reviewed today, Pathology report: PERITONEUM, NODULE, BIOPSY: MESOTHELIAL CYST. Hypokalemia- RESOLVED: Replace w/ KCL supplement- follow PRP and replace PRN Diarrhea, h/o c.diff- RESOLVED SOB secondary to acute on chronic diastolic CHF exacerbation- RESOLVED on dialysis Bronchitis- RESOLVED: Abnormal UA: UCx w/ yeast- Diflucan 100 mg daily x7 days- completed Weakness and poor appetite, severe protein malnutrition code continue current care, continue probiotics ESRD on dialysis MWF- cio 3.1 today after HD on 06/29, continue dialysis as scheduled and arranged by nephrology Anemia: s/p 1 U PRBCs on 06/14, H&H is stable, is also getting Epogen and JUAN PABLO being treated with Venofer as per Nephrology CAD, HLD- STABLE: Cont ASA 81 mg daily, Labetalol 200 mg BID, Imdur 60 mg BID, Felodipine 5 mg PO HS, STATIN INTOLERANT- continue Zetia Acute on chronic CHF exacerbation which is improved, bilateral lower extremity and bilateral hands is no more swelling with dialysis HTN- STABLE: T2DM- CONTROLLED: Lantus 8 u HS, BSG ACHS and ISS Insomnia: The above conditions stable continue current medication Patient is motivated to go to the rehab, and her medical complexities she required rehab, discussed with insurance company , he approved, GI prophylaxis: Pepcid daily DVT prophylaxis: Heparin BID Code status: LEVEL V, DNR Dispo: Hoping for [facility] at discharge, Discharge instructions You have acute renal failure, with end-stage renal disease, now is on dialysis , continue dialysis as instructed per nephrology You have acute cholecystitis has had cholecystectomy on June 28, 2017 You have severe protein malnutrition , continue current diet - you need to follow up with your primary care physician in 1 week, - take medication as instructed, never overdose or any misuse, or take with alcohol, because misuse of medicine may cause organ damage or , call your primary care physician if have questions of medicaitons. - call your primary care physician OR go to local emergency room if has any fever/chill, chest pain, shortness of breathing, nausea/vomiting/abdominal pain , facial droop/slurry speech/local weakness, or if has any questions. - fall precaution - diet as instructed - you need to follow up with your subspecialists Total Time Spent: Greater than 30 minutes This includes examination of the patient, discharge planning, medication reconciliation, and communication with other providers. Discharge Instructions Please refer to the electronic Patient Visit Report (Discharge Instructions) for additional information. Additional Copies To RV. Noyola MD; Ramon Noyola M.D.
[2017-07-04] MEDS: ISOSORBIDE MONONITRATE 60 MG TABCR PO SCH (13:05)
[2017-07-04] MEDS: LABETALOL HCL 200 MG TAB PO SCH (13:06)
--- NOTE | 2017-07-09 06:45 | EDITING REQUIRED CODING QUERY ---
CODING QUERY To promote full compliance with coding requirements relating to patient care, provider participation is requested in all cases of tank hoop bender uncertainty. Please assist us with the question(s) below: Coding Question(s): Patient underwent a lap cholecystectomy. . Intraoperatively was found to have a diaphragm nodule. An excisional full-thickness biopsy was done-and a small defect in the diaphragm was repaired. Please check below the phrase that describes the diaphragm defect. Thanks for your help! ESMER Dinh [facility] Physician's Response(s): ____X____ The diaphragm defect was created in order to biopsy the diaphragm nodule The diaphragm defect was a complication of the biopsy diaphragm procedure Cannot clinically correlate Other: Please document; Principal Diagnosis: "_that condition established after study, to be chiefly responsible for occasioning the admission of the patient to the hospital for care." Co-Existing Principal Diagnosis: "_when two or more diagnoses equally meet the criteria for principal diagnosis as determined by the circumstances of admission, diagnostic work up, and/or therapy provided, and the Alphabetic Index, Tabular List, or another coding guideline does not provide sequencing direction, any one of the diagnoses may be sequenced first." "When the physician has documented what appears to be a current diagnosis in the body of the record, but has not included the diagnosis in the final diagnostic statement, the physician should be asked whether the diagnosis should be added." ([facility] 2 QTR90. p3-4)
== END 2017-07-04 17:15 | DRG 673 ==
LOC: EDBD 20:38 → C.EDC 20:39 → C.MED 06-11 01:08 → ENRESERV 06-11 01:43 → C.MS2W 06-15 13:45 → C.4E 06-15 19:52
PROVIDERS: ADMIT Internal Medicine; ATTEND Hospitalist
PROC: 02HV33Z Insertion of Infusion Device into Superior Vena Cava, Percutaneous Approach (ICD-10-PCS; 2017-06-18 10:00)
PROC: 031809F Bypass Left Brachial Artery to Lower Arm Vein with Autologous Venous Tissue, Open Approach (ICD-10-PCS; 2017-06-18 10:00)
PROC: B518ZZA Fluoroscopy of Superior Vena Cava, Guidance (ICD-10-PCS; 2017-06-18 10:00)
PROC: 0DB68ZX Excision of Stomach, Via Natural or Artificial Opening Endoscopic, Diagnostic (ICD-10-PCS; 2017-06-25)
PROC: 5A1D70Z Performance of Urinary Filtration, Intermittent, Less than 6 Hours Per Day (ICD-10-PCS; 2017-06-27)
PROC: 0BQT4ZZ Repair Diaphragm, Percutaneous Endoscopic Approach (ICD-10-PCS; principal; 2017-06-28 08:30)
PROC: 0BBT4ZX Excision of Diaphragm, Percutaneous Endoscopic Approach, Diagnostic (ICD-10-PCS; principal; 2017-06-28 08:30)
PROC: 0FT44ZZ Resection of Gallbladder, Percutaneous Endoscopic Approach (ICD-10-PCS; principal; 2017-06-28 08:30)
DX: N17.9 Acute kidney failure, unspecified (principal); I50.33 Acute on chronic diastolic (congestive) heart failure; K81.0 Acute cholecystitis; I13.2 Hypertensive heart and chronic kidney disease with heart failure and with stage 5 chronic kidney disease, or end stage renal disease; N39.0 Urinary tract infection, site not specified; E43 Unspecified severe protein-calorie malnutrition; N18.6 End stage renal disease; I25.10 Atherosclerotic heart disease of native coronary artery without angina pectoris; E11.21 Type 2 diabetes mellitus with diabetic nephropathy; D21.3 Benign neoplasm of connective and other soft tissue of thorax; Z95.1 Presence of aortocoronary bypass graft; E83.51 Hypocalcemia; E11.65 Type 2 diabetes mellitus with hyperglycemia; K66.8 Other specified disorders of peritoneum; E78.5 Hyperlipidemia, unspecified; Z95.0 Presence of cardiac pacemaker; Z88.8 Allergy status to other drugs, medicaments and biological substances; Z88.1 Allergy status to other antibiotic agents; R19.7 Diarrhea, unspecified; J40 Bronchitis, not specified as acute or chronic; D64.9 Anemia, unspecified; E86.0 Dehydration; G47.00 Insomnia, unspecified; Z79.82 Long term (current) use of aspirin; R21 Rash and other nonspecific skin eruption

== ENCOUNTER 2017-08-03 07:05 | Observation (INO) | payer BC, OTHER ==
[2017-07-31 16:08] VITALS: BMI 29.0
[2017-08-03] VITALS (9 sets, daily range): BP systolic 130–169; BP diastolic 56–73; PULSE 59–64; TEMP 36.4–36.9; O2SAT 94–100; Ht 147.3 cm; Wt 60.4 kg
[~2017-08-03] VITALS: Ht 147.3 cm; Wt 60.4 kg
--- NOTE | 2017-08-03 05:55 | History and Physical ---
History & Physical Date of Service Aug 03, 2017. History & Physical Chief Complaint ESRD, functioning basilic vein fistula History of Present Illness The patient is a 82 year old female with multiple medical problems, including HTN, CAD s/p CABG and pacemaker, DMII on insulin, CKD III, who had a right basilic vein fistula performed in july. It is functioning well. She is now admitted for transposition of her fistula. Denies NI, fever, chills, chest pain , abd pain, rest pain, claudication, other complaints. Ambulates with walker, but only short distances. Allergies Coded Allergies: Carbamazepine (Verified Allergy, Intermediate, RASH, 06/10/17) Erythromycin (Verified Allergy, Intermediate, RASH, 06/10/17) Carvedilol (Verified Adverse Reaction, Intermediate, DIZZINESS, VISUAL DISTURBANCES, 06/10/17) Statins (Verified Adverse Reaction, Intermediate, MUSCLE ACHES, 06/10/17) Home Medications Scheduled Alprazolam (Xanax), 0.5 MG PO HS Amoxicillin & Pot Clavulanate (Augmentin 875-125 mg), 1 TAB PO BID Aspirin (Aspirin Ec), 81 MG PO QAM Cholecalciferol (Vitamin D3), 1 TAB PO QDL Cyclosporine (Ophth) (Restasis), 1 DROP OP BID Ezetimibe (Zetia), 10 MG PO QAM Felodipine (Plendil), 5 MG PO HS Fluorouracil (Topical) (Efudex), 1 APPLN TOP BID Furosemide (Lasix), 20 MG PO DAILY Hydralazine Hcl (Apresoline), 2 TAB PO TID Insulin Aspart (Novolog Flexpen), 0 UNITS SC AC Insulin Glargine (Lantus Solostar), 16 UNITS SC QPM Isosorbide Mononitrate Ext Rel (Imdur Ext Rel), 60 MG PO BID Labetalol Hcl (Labetalol Hcl), 200 MG PO BID [place]-3 Fatty Acids (Fish Oil), 1,000 MG PO DAILY Quetiapine Fumarate (Quetiapine Fumarate), 25 MG PO HS Scheduled PRN Acetaminophen (Tylenol Extra Strength), 500-1,000 MG PO TID PRN for Pain Ipratropium-Albuterol (Duoneb), 3 ML INH Q6R PRN for Shortness of Breath Melatonin (Kp Melatonin), 3 MG PO HS PRN for Sleep Problem List Medical Problems: (1) Abdominal pain (2) Accelerated hypertension (3) Acute renal insufficiency (4) Atrial myxoma (5) Benign hypertension (6) C. difficile colitis (7) CHF exacerbation (8) Cholecystitis (9) Cholecystitis (10) Chronic kidney disease (11) Coronary artery bypass grafting (12) Coronary artery disease (13) Diabetes mellitus (14) Heart disease (15) Hematochezia (16) Hyperlipidemia (17) Hypertensive crisis (18) Hysterectomy (19) Implantation of cardiac pacemaker (20) Neutropenia (21) Pancytopenia (22) Pneumonia (23) Toe surgery (24) Weakness Surgical / Medical History Hx Cardiac Surgery: Yes (CABG) Hx Abdominal Surgery: No Hx Cancer Surgery: Yes (skin excision on forehead) Hx Thoracic Surgery: No Hx Orthopedic: Yes (R foot third toe amputation/ L foot third toe amputation) Hx Urinary Tract Surgery: No HX Other Surgery: Yes (cataract bilateral) Family History No pertinent family history + HTN, CAD Social History Smoking Status: Never Smoker Hx Tobacco Use In Past Year?: No Hx Alcohol Use - Type & Amnt: No Hx Substance Use -Type & Amnt: No Review of Systems Constitutional: + malaise, No chills, No fever Skin: No change in color Eyes: No visual changes ENMT: No sore throat Respiratory: + cough, + CHAIDEZ, + short of breath, No hemoptysis Cardiovascular: + edema, No chest pain, No palpitations, No syncope, No intermittent claudication Gastrointestinal: + nausea, + vomiting, + anorexia, No abdominal pain Genitourinary - Female: No dysuria, No hematuria Neurologic: + weakness, No dizziness, No headache Physical Exam Constitutional: General Apperance: well-nourished, well-developed, obese Level of Distress: NAD, acutely ill, chronically ill Psychiatric: Mental Status: active & alert, normal mood, normal affect Orientation: oriented except where noted, to time, to place, to person Memory: recent memory abnormal (vague), remote memory abnormal (vague) Head: normocephalic, atraumatic Eyes: EOM: EOMI ENMT: normal ENT inspection, hearing grossly normal Neck: supple, trachea midline Lungs: Respiratory effort: no dyspnea Auscultation: no rhonchi, decreased breath sounds, wet rales/crackles Cardiovascular: Apical Impulse: not displaced Heart Auscultation: RRR, no murmurs, no rubs, no gallops Peripheral Pulses: Pulses: full and equal, in all extremities except if noted Bruits: none appreciated Carotid Pulse: normal on the left, normal on the right Brachial Pulses: normal on the left, normal on the right Radial Pulse: normal on the left, normal on the right Posterior Tibialis Pulse: decreased on the left, decreased on the right Dorsalis Pedis Pulse: decreased on the left, decreased on the right Abdomen: Bowel Sounds: normal Inspection & Palpation: soft, no tenderness, guarding & rebound, distended ( mildly) Extremities: Upper Right: no cyanosis, no edema, good thrill in the fistula Upper Left: no cyanosis, no varicosities, no palpable cord, edema Lower Right: no cyanosis, no varicosities, no palpable cord, edema Lower Left: no cyanosis, no varicosities, edema Neurologic: Cranial Nerves: grossly intact Sensation: grossly intact Assessment and Plan Imp: ESRD Functioning right arm fistula Plan: Patient is admitted for transposition of her right arm basilic vein fistula. I have discussed the risks options and benefits of the procedure with the patient. The patient understands the risks options and benefits and agrees to the procedure.
[~2017-08-03 07:05] MED LIST changes: +CEFAZOLIN 1000MG IV PUSH 7.5 ML IV SCH; -CEFD1CAP14 PO; -DOXY-300 PO; +FAMO20TA11 PO; +FELO10TA2 PO; -FELO5TAB PO; -FLUO5CRE TOP; -IPRASOL4 INH; +NOVOLOG SQ; +NUTR-7 PO; -NVLGIPEN SC; -OMEG10002 PO; +SENNTAB23 PO; +SODIUM CHLORIDE 0.9% 1000ML 1,000 ML IV SCH; -SRQ25 PO; -VANC5CAP PO
[2017-08-03 08:14] LABS: CALCIUM 8.9 mg/dl (8.5-10.1); CREATININE 2.96 mg/dl (0.60-1.20); POTASSIUM 3.2 mmol/L (3.5-5.1)
[2017-08-03] MEDS ORDERED: FENTANYL CITRATE INJ 50 MCG/1 ML 2 ML VIAL ONE (09:08)
[2017-08-03] MEDS ORDERED: PROPOFOL IV EMULSION 10 MG/ML 20 ML VIAL IV ONE ×2 (09:14→10:11)
[2017-08-03] MEDS ORDERED: HEPARIN SOD (PORCINE) 5000 UNIT/ML 1 ML VIAL ONE (09:15)
[2017-08-03] MEDS ORDERED: BUPIVACAINE/EPINEPHRINE 0.5% MPF 1:200,000 30 ML VIAL ONE ×2 (09:16→10:00)
[2017-08-03] MEDS ORDERED: LIDOCAINE HCL 1% 20 ML VIAL ONE ×2 (09:16→10:01)
[2017-08-03] MEDS ORDERED: ATROPINE SULFATE 0.1 MG/ML 5ML SYR IV PRN (09:30)
[2017-08-03] MEDS ORDERED: FENTANYL CITRATE INJ 50 MCG/1 ML 2 ML VIAL IV PRN (09:30)
[2017-08-03] MEDS ORDERED: EpHEDrine SULFATE INJ 50 MG/ML AMP IV PRN (09:30)
[2017-08-03] MEDS ORDERED: ONDANSETRON INJ 2 MG/ML 2 ML VIAL ONE (10:11)
--- NOTE | 2017-08-03 10:48 | [facility] Post Operative Brief Note ---
Immediate Operative Summary Operative Date Aug 03, 2017. Pre-Operative Diagnosis End stage renal disease. Post-Operative Diagnosis End stage renal disease. Procedure(s) Performed Right Basilic Vein Transposition Surgeon Dr. Montemayor Braille Transcriber Surgeon(s) INDU Marie Estimated Blood Loss 150 ml Findings Consistent with Post-Op Diagnosis Specimens None. Drains None Anesthesia Type MAC Complication(s) none Disposition Accompanied Pt To Recover: no Disposition: Recovery Room / PACU
--- NOTE | 2017-08-03 11:10 | [facility] Operative Report ---
Operative Report Operative Date Aug 03, 2017. Pre-Operative Diagnosis End stage renal disease. Post-Operative Diagnosis End stage renal disease. Procedure(s) Performed Right Basilic Vein Transposition Surgeon Dr. Montemayor Commercial Management Accountant Surgeon(s) INDU Marie Estimated Blood Loss 150 ml Findings Nicely distended vein with a good thrill at the end of the procedure. Specimens None. Drains None Anesthesia Type MAC Complication(s) none Disposition no Recovery Room / PACU Indications This patient's an 82-year-old female who had a basilic vein fistula made in the right arm. She is now admitted for transposition of the basilic vein as a second stage procedure.I have discussed the risks options and benefits of the procedure with the patient. The patient understands the risks options and benefits and agrees to the procedure. Description of Procedure The patient was taken to the operating room and placed in the supine position. The right arm was prepped and draped in a sterile manner and then local anesthetic was administered. An incision was made over the basilic vein from the anastomosis up to the anterior axillary line. The vein was exposed in its entirety. Side branches were ligated with silk sutures. Once the vein was entirely freed up, the proximal vein at the anastomosis just beyond the anastomotic site was ligated. The vein was then divided. It was irrigated and flushed. Local anesthetic was then administered. A counterincision was made over the anterior portion of the upper arm. A subcutaneous tunnel was then made and the vein was passed through the tunnel using the counterincision. The vein was then again flushed. No kinking was seen and good dilatation was noted. The brachial artery was then identified in the lower arm. This was isolated just above the antecubital fossa. It was then clamped proximally and distally. A longitudinal arteriotomy was then made. The vein was then trimmed and an end-to-side anastomosis was accomplished using a running 6-0 Prolene suture in the usual vascular fashion. Prior to completing the anastomosis backbleeding and fore bleeding was allowed to occur. The final few sutures were then placed and securely tied. Clamps were removed and excellent flow was seen through the fistula. The fistula had a good thrill. At this point the proximal portion of the fistula had somewhat of a curve to it. We then made a counter incision over the anterior arm in the lower portion. The vein was identified. A new tunnel was then made by undermining the skin and moving the vein up laterally on the arm. 3-0 Vicryl sutures were then used to close the old tunnel. The vein had a nice straight appearance at this point with no curves seen. Adequate hemostasis was then noted of the wounds. The wounds were then closed in the usual fashion with a running 3-0 Vicryl suture for the subcutaneous layer and zain for the long medial incision and 4-0 subcuticular Vicryl sutures for the 2 counterincisions. Sterile dressings were applied to the wound.The patient left the operation room in satisfactory condition and tolerated the procedure well. All needle and sponge counts were correct at the end of the procedure. I attest to the content of the Intraoperative Record and any orders documented therein. Any exceptions are noted below.
--- NOTE | 2017-08-03 11:55 | Anesthesiology Progress Note ---
Anesthesia Post Op Note Date & Time Aug 03, 2017 at 11:55 Vital Signs Pain Intensity: 0 Vital Signs Past 12 Hours Date Time Temp Pulse Resp B/P (MAP) Pulse Ox O2 Delivery O2 Flow Rate FiO2 08/03/17 11:48 60 13 100 08/03/17 11:48 60 13 08/03/17 11:46 137/70 08/03/17 11:43 60 9 08/03/17 11:43 60 9 100 08/03/17 11:41 135/52 08/03/17 11:38 60 17 100 08/03/17 11:38 60 17 08/03/17 11:36 141/60 08/03/17 11:33 60 13 100 08/03/17 11:33 60 13 08/03/17 11:31 138/50 08/03/17 11:29 148/61 08/03/17 11:28 61 20 08/03/17 11:28 61 20 100 08/03/17 11:28 36.6 61 16 148/61 (91) 100 Oxymask 10 08/03/17 08:04 36.6 64 18 144/64 (90) 98 Room Air Notes Mental Status: alert / awake / arousable, participated in evaluation Pt Amnestic to Procedure: Yes Nausea / Vomiting: adequately controlled Pain: adequately controlled Airway Patency, RR, SpO2: stable & adequate BP & HR: stable & adequate Hydration State: stable & adequate Anesthetic Complications: no major complications apparent
[2017-08-03] MEDS ORDERED: IV FLUIDS COMPLETED PRN (12:45)
--- NOTE | 2017-08-03 13:48 | Progress Note ---
Progress Note Date of Service Aug 03, 2017. Progress Note I assisted Dr Montemayor with Nava Dominguez's Right Basilic Vein Transposition on , due to lack of resident availability.
[2017-08-03] MEDS ORDERED: GLUCOSE 40% GEL 15 GM TUBE PO PRN (14:15)
[2017-08-03] MEDS ORDERED: ALPRAZOLAM 0.5 MG TAB PO PRN (14:15)
[2017-08-03] MEDS ORDERED: DEXTROSE 50% 50 ML SYR IV PRN (14:15)
[2017-08-03] MEDS ORDERED: GLUCOSE 10 TABS/TUBE PO PRN (14:15)
[2017-08-03] MEDS ORDERED: GLUCAGON FOR INJ 1 MG VIAL SQ PRN (14:15)
[2017-08-03] MEDS: BOOST GLUCOSE CONTROL PO SCH (18:32)
[2017-08-03] MEDS: INSULIN HUMAN REGULAR SC SCH ×2 (18:38→21:14)
[2017-08-03] MEDS ORDERED: FELODIPINE 5 MG TABCR PO SCH (21:00)
[2017-08-03] MEDS: BOOST VANILLA PO SCH (21:11)
[2017-08-03] MEDS: ACETAMINOPHEN 500 MG TAB PO PRN (21:18)
[2017-08-03] MEDS: ISOSORBIDE MONONITRATE 60 MG TABCR PO SCH (21:19)
[2017-08-03] MEDS: LABETALOL HCL 200 MG TAB PO SCH (21:19)
[2017-08-04] VITALS (17 sets, daily range): BP systolic 120–147; BP diastolic 49–67; PULSE 60–66; TEMP 36.6–36.8; O2SAT 95
[2017-08-04 07:36] LABS: BASO % 1.1 %; BASO ABS # 0.08 K/uL (0-0.2); EOS ABS # 0.35 K/uL (0-0.5); HEMOGLOBIN 10.2 g/dL (12.0-16.0); IG# 0.01 K/uL (0.00-0.02); LYMPH % 21.6 %; LYMPH ABS # 1.51 K/uL (1.2-3.4); MEAN CELL VOLUME 94.5 fL (80-100); MEAN CORPUSCULAR HEMOGLOBIN 31.1 pg (25-34); MEAN CORPUSCULAR HGB CONC 32.9 g/dl (32-36); MEAN PLATELET VOLUME 8.7 fL (7.4-10.4); MONO % 12.1 %; MONO ABS # 0.85 K/uL (0.11-0.59); NEUT % 60.1 %; PLATELET COUNT 154 K/uL (130-400); RED CELL DISTRIBUTION WIDTH CV 15.7 % (11.5-14.5); RED CELL DISTRIBUTION WIDTH SD 54.3 fL (36.4-46.3)
[2017-08-04 08:10] LABS: CALCIUM 8.5 mg/dl (8.5-10.1); CREATININE 3.46 mg/dl (0.60-1.20); POTASSIUM 3.6 mmol/L (3.5-5.1)
[2017-08-04] MEDS: BOOST GLUCOSE CONTROL PO SCH (08:46)
[2017-08-04] MEDS: BOOST VANILLA PO SCH ×2 (08:46→14:00)
[2017-08-04] MEDS: ACETAMINOPHEN 500 MG TAB PO PRN (08:56)
[2017-08-04] MEDS: INSULIN HUMAN REGULAR SC SCH ×2 (08:59→15:15)
[2017-08-04] MEDS ORDERED: DOCUSATE SODIUM/SENNA 50/8.6MG TAB PO SCH (09:00)
[2017-08-04] MEDS ORDERED: ASPIRIN 81 MG ECTAB PO SCH (09:00)
[2017-08-04] MEDS ORDERED: FAMOTIDINE 20 MG TAB PO SCH (09:00)
[2017-08-04] MEDS ORDERED: HEPARIN SOD 5000 UNIT/0.5 ML CARP SQ SCH (09:00)
--- NOTE | 2017-08-04 09:22 | Progress Note ---
Progress Note Date of Service: Aug 04, 2017. Subjective Mild pain in the right arm incision. No hand pain or numbness Problem List Medical Problems: (1) Acute kidney failure Status: Acute (2) Cholelithiasis Status: Acute (3) Dehydration Status: Acute (4) HTN (hypertension) Status: Acute (5) Hypertensive emergency Status: Acute (6) Influenza Status: Acute (7) Nausea and vomiting Status: Acute (8) Proteinuria Status: Acute Objective Vital Signs Vital Signs Past 12 Hours Date Time Temp Pulse Resp B/P (MAP) Pulse Ox O2 Delivery O2 Flow Rate FiO2 08/04/17 07:10 36.6 66 16 139/67 (91) 95 Room Air 08/03/17 23:35 Room Air 08/03/17 23:05 36.8 64 16 144/73 (96) 97 Room Air 08/03/17 21:21 61 169/59 (95) Exam Awake and alert VSS Afebrile Incision dry and clean Good thrill in fistula Laboratory and Microbiology Results Past 24 Hours Test 08/03/17 11:34 08/03/17 17:01 08/03/17 20:39 08/04/17 07:13 Range/Units Bedside Glucose 179 229 192 70-90 mg/dl White Blood Count 7.00 4.8-10.8 K/uL Red Blood Count 3.28 4.2-5.4 M/uL Hemoglobin 10.2 12.0-16.0 g/dL Hematocrit 31.0 37-47 % Mean Corpuscular Volume 94.5 80-100 fL Mean Corpuscular Hemoglobin 31.1 25-34 pg Mean Corpuscular Hemoglobin Concent 32.9 32-36 g/dl Platelet Count 154 130-400 K/uL Mean Platelet Volume 8.7 7.4-10.4 fL Neutrophils (%) (Auto) 60.1 % Lymphocytes (%) (Auto) 21.6 % Monocytes (%) (Auto) 12.1 % Eosinophils (%) (Auto) 5.0 % Basophils (%) (Auto) 1.1 % Neutrophils # (Auto) 4.20 1.4-6.5 K/uL Lymphocytes # (Auto) 1.51 1.2-3.4 K/uL Monocytes # (Auto) 0.85 0.11-0.59 K/uL Eosinophils # (Auto) 0.35 0-0.5 K/uL Basophils # (Auto) 0.08 0-0.2 K/uL RDW Standard Deviation 54.3 36.4-46.3 fL RDW Coefficient of Variation 15.7 11.5-14.5 % Immature Granulocyte % (Auto) 0.1 % Immature Granulocyte # (Auto) 0.01 0.00-0.02 K/uL Sodium Level 137 136-145 mmol/L Potassium Level 3.6 3.5-5.1 mmol/L Chloride Level 100 98-107 mmol/L Carbon Dioxide Level 30 21-32 mmol/L Anion Gap 7.0 3-11 mmol/L Blood Urea Nitrogen 32 7-18 mg/dl Creatinine 3.46 0.60-1.20 mg/dl Est Creatinine Clear Calc Drug Dose 9.7 ml/min Estimated GFR () 13.5 Estimated GFR (Non- 11.6 BUN/Creatinine Ratio 9.2 10-20 Random Glucose 169 70-99 mg/dl Calcium Level 8.5 8.5-10.1 mg/dl Test 08/04/17 07:59 Range/Units Bedside Glucose 172 70-90 mg/dl Microbiology Results 08/03/17 MRSA DNA Surveillance Screen - Final, Complete Specimen Negative for MRSA by DNA Probe Imp: End stage renal disease Post basilic vein transposition, second stage Plan: D/C today after nephrology decides on dialysis or not.
[2017-08-04] MEDS ORDERED: OXYC-57 PO (09:24)
--- NOTE | 2017-08-04 09:27 | Discharge Instructions ---
Discharge Instructions Date of Service Aug 04, 2017. Admission Reason for Admission: End Stage Renal Disease Discharge Discharge Diagnosis / Problem: End stage renal disease, basilic vein transposition second stage Discharge Goals Goal(s): Therapeutic intervention Activity Recommendations Activity Limitations: per Instructions/Follow-up section . Instructions / Follow-Up Instructions / Follow-Up Call [phone] to schedule a follow up appointment if one not already scheduled. Change dressing daily. If no drainage may discontinue dressing. ACTIVITY RECOMMENDATIONS: See Above SPECIAL CARE INSTRUCTIONS: Call your doctor if: * Temperature above 101 degrees * Pain not relieved by pain medicine ordered * There is increased drainage or redness from any incision * You have any unanswered questions or concerns. Current Hospital Diet Patient's current hospital diet: Renal Diet, Diabetes Type 2 Diet, Low Sodium Diet (2gm Na) Discharge Diet Recommended Diet: Low Sodium Diet (2gm Na), Diabetes Type 2 Diet, Renal Diet Procedures Procedures Performed: Right Basilic Vein Transposition Pending Studies Studies pending at discharge: no Medical Emergencies . Who to Call and When: Medical Emergencies: If at any time you feel your situation is an emergency, please call 911 immediately. . Non-Emergent Contact Non-Emergency issues call your: Surgeon . "Provider Documentation" section prepared by Abner Montemayor. . [place] Drug Monitoring Program Search Results: no issues identified
--- NOTE | 2017-08-04 10:11 | Nephrology Consultation ---
Nephrology Consultation Date & Providers Date of Consultation: Aug 04, 2017. Primary Care Provider: RV. Noyola MD Referring Provider: Reason for Consultation ESRD History of Present Illness Mrs. Dominguez is an 82 year old white female who is seen at the request of Dr. Montemayor to provide inpatient HD. Medical records in the hospital EMR were reviewed today and are summarized as follows: Ms. Dominguez has longstanding AODM ( insulin requiring, no retinopathy), hyperlipidemia, HTN and ASCVD s/p CABG and pacemaker placement. She developed cardiorenal syndrome and progressed to ESRD. Her first HD was 06/09/17. She had a R brachiocephalic AVF created by Dr. Montemayor 06/19/17. While the fistula has matured, the venous limb has been deep and not accessible for HD. Patient underwent elective transposition of the venous limb of her AVF yesterday. Nephrology consultation has been requested to provide HD today. Past Medical/Surgical History Medical: # ESRD (HD F [facility] [place] - 3 hr 3K 2.5Ca F-160 NR Qb 300 EDW 59) # Microalbuminuria # AODM - insulin requiring, no retinopathy # HTN # Hyperlipidemia - transitioned from fibrate to fish oil therapy due to CKD. 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 Farrell Surgical: # CABG # Pacemaker # R BC AVF 06/[address] Montemayor # Transposition venous limb AVF 08/[address] Montemayor Allergies Coded Allergies: Carbamazepine (Verified Allergy, Intermediate, RASH, 08/03/17) Erythromycin (Verified Allergy, Intermediate, RASH, 08/03/17) Carvedilol (Verified Adverse Reaction, Intermediate, DIZZINESS, VISUAL DISTURBANCES, 08/03/17) Statins (Verified Adverse Reaction, Intermediate, MUSCLE ACHES, 08/03/17) Inpatient Medications Current Inpatient Medications Medications (Trade) Dose Ordered Sig/Haja Route Start Time Stop Time Status Last Admin Dose Admin Heparin Sodium (Porcine) (Heparin Sq 5000 Unit/0.5ml) 5,000 unit Q12H SQ 08/04/17 09:00 09/03/17 08:59 08/04/17 08:59 5,000 UNIT Miscellaneous (Iv Fluids Completed) 1 ea PRN PRN N/A 08/03/17 12:45 08/03/18 12:44 Acetaminophen (Tylenol Tab) 500 mg TID PRN PO 08/03/17 14:15 09/02/17 14:14 08/04/17 08:56 500 MG Alprazolam (Xanax Tab) 0.5 mg HS PRN PO 08/03/17 14:15 09/02/17 14:14 08/03/17 21:28 0.5 MG Aspirin (Ecotrin Tab) 81 mg QAM PO 08/04/17 09:00 09/03/17 08:59 08/04/17 08:48 81 MG Famotidine (Pepcid Tab) 20 mg QAM PO 08/04/17 09:00 09/03/17 08:59 08/04/17 09:06 20 MG Felodipine (Plendil Tabcr) 10 mg HS PO 08/03/17 21:00 09/02/17 20:59 08/03/17 21:20 10 MG Hydralazine HCl (Apresoline Tab) 100 mg TID PO 08/03/17 21:00 09/02/17 20:59 08/03/17 21:19 100 MG Isosorbide Mononitrate (Imdur Ext Rel Tab) 60 mg BID PO 08/03/17 21:00 09/02/17 20:59 08/03/17 21:19 60 MG Labetalol HCl (Normodyne Tab) 200 mg BID PO 08/03/17 21:00 09/02/17 20:59 08/03/17 21:19 200 MG Enteral Nutritional Formula (Boost) 1 can TID PO 08/03/17 21:00 09/02/17 20:59 08/03/17 21:11 1 CAN Senna/Docusate Sodium (Senokot S Tab) 1 tab QAM PO 08/04/17 09:00 09/03/17 08:59 08/04/17 08:49 1 TAB Cholecalciferol (Vitamin D Tab) 5,000 inter.unit QDL PO 08/04/17 12:30 09/03/17 12:29 Miscellaneous Information (Order Awaiting Action) 1 ea QS N/A 08/03/17 16:00 09/02/17 15:59 Insulin Human Regular (novoLIN-R) SLIDING SCALE IF C... ACHS SC 08/03/17 17:15 09/02/17 17:14 08/04/17 08:59 2 UNITS Glucose (Glucose 40% Gel) 15-30 GRAMS 15 GRAMS... UD PRN PO 08/03/17 14:15 09/02/17 14:14 Glucose (Glucose Chew Tab) 4-8 Tablets 4 Tabl... UD PRN PO 08/03/17 14:15 09/02/17 14:14 Dextrose (Dextrose 50% 50ML Syringe) 25-50ML OF 50% DW IV FOR... UD PRN IV 08/03/17 14:15 09/02/17 14:14 Glucagon (Glucagon Inj) 1 mg UD PRN SQ 08/03/17 14:15 09/02/17 14:14 Enteral Nutritional Formula (Boost Glucose Control) 0.5 can TIDM PO 08/03/17 17:45 09/02/17 17:44 08/04/17 08:46 0.5 CAN Family History No pertinent family history Negative for CKD / ESRD Social History Smoking Status: Never Smoker Drug Use: none Marital Status: Housing Status: lives with family Occupation: retired . Retired. Never a smoker Review of Systems Constitutional: No fever Respiratory: No cough Cardiovascular: No chest pain Abdomen: No pain, No nausea, No vomiting A complete review of systems was performed. Pertinent positives are noted above. All other systems are negative. Physical Exam Date Time Temp Pulse Resp B/P (MAP) Pulse Ox O2 Delivery O2 Flow Rate FiO2 08/04/17 07:10 36.6 66 16 139/67 (91) 95 Room Air 08/03/17 23:35 Room Air 08/03/17 23:05 36.8 64 16 144/73 (96) 97 Room Air 08/03/17 21:21 61 169/59 (95) 08/03/17 20:05 36.9 61 16 133/57 (82) 94 Room Air 08/03/17 16:21 36.9 59 16 130/69 (89) 100 Nasal Cannula 2.0 08/03/17 15:52 Nasal Cannula 2.0 08/03/17 15:19 36.6 60 16 144/56 (85) 100 Nasal Cannula 2.0 08/03/17 14:15 36.4 61 16 139/69 (92) 100 2.0 08/03/17 13:30 60 16 138/58 (84) 99 2.0 08/03/17 13:00 64 16 141/73 (95) 100 2.0 08/03/17 13:00 36.8 62 16 147/68 (94) 98 Nasal Cannula 2.0 08/03/17 13:00 98 Nasal Cannula 2.0 08/03/17 13:00 98 Nasal Cannula 2.0 08/03/17 12:34 65 8 100 08/03/17 12:34 69 8 08/03/17 12:31 150/53 08/03/17 12:29 65 13 08/03/17 12:29 64 13 100 08/03/17 12:26 140/59 08/03/17 12:24 61 7 08/03/17 12:24 62 7 100 08/03/17 12:21 154/51 08/03/17 12:19 64 10 100 08/03/17 12:19 63 10 08/03/17 12:16 143/49 08/03/17 12:14 62 5 100 08/03/17 12:14 62 5 08/03/17 12:11 148/63 08/03/17 12:09 65 2 08/03/17 12:09 66 2 100 08/03/17 12:06 149/52 08/03/17 12:04 65 8 08/03/17 12:04 64 8 100 08/03/17 12:01 150/56 08/03/17 11:59 60 9 08/03/17 11:59 60 9 100 08/03/17 11:56 152/48 08/03/17 11:55 36.8 60 16 152/48 (76) 100 Nasal Cannula 2 08/03/17 11:54 60 16 100 08/03/17 11:54 60 16 08/03/17 11:51 141/48 08/03/17 11:49 60 16 100 08/03/17 11:49 60 16 08/03/17 11:48 60 13 100 08/03/17 11:48 60 13 08/03/17 11:46 137/70 08/03/17 11:43 60 9 08/03/17 11:43 60 9 100 08/03/17 11:41 135/52 08/03/17 11:38 60 17 100 08/03/17 11:38 60 17 08/03/17 11:36 141/60 08/03/17 11:33 60 13 100 08/03/17 11:33 60 13 08/03/17 11:31 138/50 08/03/17 11:29 148/61 08/03/17 11:28 61 20 08/03/17 11:28 61 20 100 08/03/17 11:28 36.6 61 16 148/61 (91) 100 Oxymask 10 General Appearance: no apparent distress Head: normocephalic, atraumatic Eyes: PERRL, EOMI Neck: no adenopathy Respiratory/Chest: lungs clear, no accessory muscle use Cardiovascular: regular rate, rhythm Abdomen/GI: normal bowel sounds, non tender, soft Extremities/Musculoskelatal: no pedal edema, + pertinent finding (R arm AVF w/ clean dry dressing in place. AVF + bruit) Neurologic/Psych: alert, oriented x 3 Laboratory Results Last 24 Hours Test 08/03/17 11:34 08/03/17 17:01 08/03/17 20:39 08/04/17 07:13 Bedside Glucose 179 mg/dl 229 mg/dl 192 mg/dl White Blood Count 7.00 K/uL Red Blood Count 3.28 M/uL Hemoglobin 10.2 g/dL Hematocrit 31.0 % Mean Corpuscular Volume 94.5 fL Mean Corpuscular Hemoglobin 31.1 pg Mean Corpuscular Hemoglobin Concent 32.9 g/dl Platelet Count 154 K/uL Mean Platelet Volume 8.7 fL Neutrophils (%) (Auto) 60.1 % Lymphocytes (%) (Auto) 21.6 % Monocytes (%) (Auto) 12.1 % Eosinophils (%) (Auto) 5.0 % Basophils (%) (Auto) 1.1 % Neutrophils # (Auto) 4.20 K/uL Lymphocytes # (Auto) 1.51 K/uL Monocytes # (Auto) 0.85 K/uL Eosinophils # (Auto) 0.35 K/uL Basophils # (Auto) 0.08 K/uL RDW Standard Deviation 54.3 fL RDW Coefficient of Variation 15.7 % Immature Granulocyte % (Auto) 0.1 % Immature Granulocyte # (Auto) 0.01 K/uL Sodium Level 137 mmol/L Potassium Level 3.6 mmol/L Chloride Level 100 mmol/L Carbon Dioxide Level 30 mmol/L Anion Gap 7.0 mmol/L Blood Urea Nitrogen 32 mg/dl Creatinine 3.46 mg/dl Est Creatinine Clear Calc Drug Dose 9.7 ml/min Estimated GFR () 13.5 Estimated GFR (Non- 11.6 BUN/Creatinine Ratio 9.2 Random Glucose 169 mg/dl Calcium Level 8.5 mg/dl Test 08/04/17 07:59 Bedside Glucose 172 mg/dl Impression (1) End-stage renal disease on hemodialysis (2) Problem with dialysis access (3) Anemia (4) Diabetes mellitus Recommendations END STAGE RENAL DISEASE: -- HD today. Orders entered into EMR and HD RN notified -- Hold heparin on HD today due to recent AVF surgery HYPERTENSION: -- Blood pressure is well controlled. No change to current blood pressure regimen ANEMIA: -- Will provide PONCE w/ HD today OTHER: -- Outpatient HD unit notified of patient's admission. They will plan to resume outpatient therapy on Sunday.
[2017-08-04] MEDS ORDERED: EPOETIN ALFA 10,000 UNITS/ML VIAL IV. ONE (10:15)
[2017-08-04] MEDS ORDERED: EPOETIN ALFA INJ 6,000 UNITS in SYRINGE 0 ML IV. SCH (11:00)
[2017-08-04] MEDS ORDERED: CHOLECALCIFEROL 1000 INTER.UNIT TAB PO SCH (12:30)
--- NOTE | 2017-08-04 13:33 | Dialysis Progress Note ---
Hemodialysis Note Date of Service Aug 04, 2017. Chief Complaint ESRD Vital Signs Last 8 Hrs Date Time Temp Pulse Resp B/P (MAP) Pulse Ox O2 Delivery O2 Flow Rate FiO2 08/04/17 13:15 60 138/58 08/04/17 13:00 60 130/52 08/04/17 12:50 36.8 60 16 95 Room Air 08/04/17 12:45 60 141/54 08/04/17 12:30 60 135/56 08/04/17 12:15 60 133/54 08/04/17 12:00 60 130/51 08/04/17 11:45 60 122/51 08/04/17 11:30 60 127/51 08/04/17 11:15 60 120/49 08/04/17 11:00 60 147/59 08/04/17 10:50 63 146/62 08/04/17 10:43 36.8 63 145/60 (88) 08/04/17 07:30 Room Air 08/04/17 07:10 36.6 66 16 139/67 (91) 95 Room Air Last Recorded Weight Weight (Kilograms): 60.400 Family History Negative for CKD / ESRD Social History Smoking Status: Never smoker Drug Use: none Marital Status: Housing Status: lives with family Occupation: retired . Retired. Never a smoker Laboratory Results Past 24 Hours 08/04/17 07:13 Red Blood Count 3.28, Mean Corpuscular Volume 94.5, Mean Corpuscular Hemoglobin 31.1, Mean Corpuscular Hemoglobin Concent 32.9, Mean Platelet Volume 8.7, Neutrophils (%) (Auto) 60.1, Lymphocytes (%) (Auto) 21.6, Monocytes (%) (Auto) 12.1, Eosinophils (%) (Auto) 5.0, Basophils (%) (Auto) 1.1, Neutrophils # (Auto ) 4.20, Lymphocytes # (Auto) 1.51, Monocytes # (Auto) 0.85, Eosinophils # (Auto ) 0.35, Basophils # (Auto) 0.08 08/04/17 07:13 Test 08/03/17 17:01 08/03/17 20:39 08/04/17 07:13 08/04/17 07:59 Bedside Glucose 229 mg/dl (70-90) 192 mg/dl (70-90) 172 mg/dl (70-90) White Blood Count 7.00 K/uL (4.8-10.8) Red Blood Count 3.28 M/uL (4.2-5.4) Hemoglobin 10.2 g/dL (12.0-16.0) Hematocrit 31.0 % (37-47) Mean Corpuscular Volume 94.5 fL (80-100) Mean Corpuscular Hemoglobin 31.1 pg (25-34) Mean Corpuscular Hemoglobin Concent 32.9 g/dl (32-36) Platelet Count 154 K/uL (130-400) Mean Platelet Volume 8.7 fL (7.4-10.4) Neutrophils (%) (Auto) 60.1 % Lymphocytes (%) (Auto) 21.6 % Monocytes (%) (Auto) 12.1 % Eosinophils (%) (Auto) 5.0 % Basophils (%) (Auto) 1.1 % Neutrophils # (Auto) 4.20 K/uL (1.4-6.5) Lymphocytes # (Auto) 1.51 K/uL (1.2-3.4) Monocytes # (Auto) 0.85 K/uL (0.11-0.59) Eosinophils # (Auto) 0.35 K/uL (0-0.5) Basophils # (Auto) 0.08 K/uL (0-0.2) RDW Standard Deviation 54.3 fL (36.4-46.3) RDW Coefficient of Variation 15.7 % (11.5-14.5) Immature Granulocyte % (Auto) 0.1 % Immature Granulocyte # (Auto) 0.01 K/uL (0.00-0.02) Anion Gap 7.0 mmol/L (3-11) Est Creatinine Clear Calc Drug Dose 9.7 ml/min Estimated GFR () 13.5 Estimated GFR (Non- 11.6 BUN/Creatinine Ratio 9.2 (10-20) Calcium Level 8.5 mg/dl (8.5-10.1) Date/Time Source Procedure Growth Status 08/03/17 13:50 Nasal MRSA DNA Surveillance Screen - Final Specimen Negative for MRSA by DNA Probe Complete Allergies Coded Allergies: Carbamazepine (Verified Allergy, Intermediate, RASH, 08/03/17) Erythromycin (Verified Allergy, Intermediate, RASH, 08/03/17) Carvedilol (Verified Adverse Reaction, Intermediate, DIZZINESS, VISUAL DISTURBANCES, 08/03/17) Statins (Verified Adverse Reaction, Intermediate, MUSCLE ACHES, 08/03/17) Medications Current Inpatient Medications Medications (Trade) Dose Ordered Sig/Haja Route Start Time Stop Time Status Last Admin Dose Admin Heparin Sodium (Porcine) (Heparin Sq 5000 Unit/0.5ml) 5,000 unit Q12H SQ 08/04/17 09:00 09/03/17 08:59 08/04/17 08:59 5,000 UNIT Miscellaneous (Iv Fluids Completed) 1 ea PRN PRN N/A 08/03/17 12:45 08/03/18 12:44 Acetaminophen (Tylenol Tab) 500 mg TID PRN PO 08/03/17 14:15 09/02/17 14:14 08/04/17 08:56 500 MG Alprazolam (Xanax Tab) 0.5 mg HS PRN PO 08/03/17 14:15 09/02/17 14:14 08/03/17 21:28 0.5 MG Aspirin (Ecotrin Tab) 81 mg QAM PO 08/04/17 09:00 09/03/17 08:59 08/04/17 08:48 81 MG Famotidine (Pepcid Tab) 20 mg QAM PO 08/04/17 09:00 09/03/17 08:59 08/04/17 09:06 20 MG Felodipine (Plendil Tabcr) 10 mg HS PO 08/03/17 21:00 09/02/17 20:59 08/03/17 21:20 10 MG Hydralazine HCl (Apresoline Tab) 100 mg TID PO 08/03/17 21:00 09/02/17 20:59 08/03/17 21:19 100 MG Isosorbide Mononitrate (Imdur Ext Rel Tab) 60 mg BID PO 08/03/17 21:00 09/02/17 20:59 08/03/17 21:19 60 MG Labetalol HCl (Normodyne Tab) 200 mg BID PO 08/03/17 21:00 09/02/17 20:59 08/03/17 21:19 200 MG Enteral Nutritional Formula (Boost) 1 can TID PO 08/03/17 21:00 09/02/17 20:59 08/03/17 21:11 1 CAN Senna/Docusate Sodium (Senokot S Tab) 1 tab QAM PO 08/04/17 09:00 09/03/17 08:59 08/04/17 08:49 1 TAB Cholecalciferol (Vitamin D Tab) 5,000 inter.unit QDL PO 08/04/17 12:30 09/03/17 12:29 Miscellaneous Information (Order Awaiting Action) 1 ea QS N/A 08/03/17 16:00 09/02/17 15:59 Insulin Human Regular (novoLIN-R) SLIDING SCALE IF C... ACHS SC 08/03/17 17:15 09/02/17 17:14 08/04/17 08:59 2 UNITS Glucose (Glucose 40% Gel) 15-30 GRAMS 15 GRAMS... UD PRN PO 08/03/17 14:15 09/02/17 14:14 Glucose (Glucose Chew Tab) 4-8 Tablets 4 Tabl... UD PRN PO 08/03/17 14:15 09/02/17 14:14 Dextrose (Dextrose 50% 50ML Syringe) 25-50ML OF 50% DW IV FOR... UD PRN IV 08/03/17 14:15 09/02/17 14:14 Glucagon (Glucagon Inj) 1 mg UD PRN SQ 08/03/17 14:15 09/02/17 14:14 Enteral Nutritional Formula (Boost Glucose Control) 0.5 can TIDM PO 08/03/17 17:45 09/02/17 17:44 08/04/17 08:46 0.5 CAN Heparin Sodium (Porcine) (No Heparin In Dialysis) 1 ea TODAY@1100 N/A 08/04/17 11:00 08/04/17 18:00 Epoetin Arik 6000 units/Syringe 0.3 ml @ 1 mls/min TODAY@1100 IV. 08/04/17 11:00 08/04/17 18:00 08/04/17 12:34 1 MLS/MIN Impression (1) End-stage renal disease on hemodialysis (2) Problem with dialysis access (3) Anemia (4) Diabetes mellitus Recommendations Patient was seen & examined during HD today. IJ THC is functioning A --> A at Qb 300 cc/min. CV -RRR Lungs - CTA. Patient is without complaint and appears medically stable at this time.
[2017-08-04] MEDS: ISOSORBIDE MONONITRATE 60 MG TABCR PO SCH (14:27)
[2017-08-04] MEDS: LABETALOL HCL 200 MG TAB PO SCH (14:28)
--- NOTE | 2017-08-10 16:51 | DISCHARGE SUMMARY ---
ADMISSION DIAGNOSES: End-stage renal disease and functioning right arm arteriovenous fistula. DISCHARGE DIAGNOSES: 1. Status post basilic vein transposition. 2. Endstage renal disease with functioning right arm fistula. DISCHARGE CONDITION: Stable. CONSULTATIONS IN THE HOSPITAL: Included [facility] nephrology. PROCEDURES IN THE HOSPITAL: Included her right arm basilic vein transposition procedure which was performed on 08/03/2017 with an EBL of 150 mL and no significant complications. HISTORY OF PRESENT ILLNESS: Mrs. Dominguez is an 82-year-old female who was initially consulted to Dr. Montemayor for creation of arteriovenous fistula for hemodialysis. During a hospital stay approximately 2 months prior to this, the patient had been started on hemodialysis through a PermCath due to acute on chronic renal failure and during that admission, her right arm basilic vein AV fistula was created. A period of time was allowed for maturation and upon being seen in the office determined that her fistula had matured to the point that it would be usable for hemodialysis and a basilic vein transposition was recommended. The procedure, risks, benefits, alternatives were discussed with the patient by Dr. Montemayor and she expressed understanding and agreement to proceed. HOSPITAL COURSE: The patient was admitted on 08/03/2017 after undergoing her right arm basilic vein transposition procedure. Postoperatively, she did essentially well. She had some pain which was under control with some medications. Vital signs remained stable. Labs remained stable. She was felt to be stable enough for discharge on postop day 1. PHYSICAL EXAMINATION: VITAL SIGNS: On day of discharge, her vital signs were as follows: Temperature of 36.7, pulse of 63, respiratory rate of 16 and oxygenation 95% on room air, blood pressure 130/52. CONSTITUTIONAL: The patient is a mildly chronically ill appearing female, in no acute distress. She is ambulatory with a walker. HEAD: Normocephalic and atraumatic. EYES: EOMI. ENMT: Demonstrates no hearing loss, rhinorrhea or pharyngeal erythema. NECK: Supple, nontender with a midline trachea without mass or crepitus. LUNGS: Demonstrated no dyspnea; they were decreased throughout but clear bilaterally. CARDIOVASCULAR: Demonstrates nondisplaced apical impulse with a regular rate and rhythm. Her peripheral pulses are full and equal in all extremities unless otherwise noted; specifically they were normal in her carotid, brachial, radial, and femoral pulses. Lower extremity distal pulses are +1. She has brisk capillary refill and no sign of distal ischemia. ABDOMEN: Soft, nontender with normoactive bowel sounds in all 4 quadrants. No guarding or rebound. There was no flank or CVA tenderness. MUSCULOSKELETAL: Demonstrates normal tone and strength for age. Right upper extremity surgical incision is well approximated with zain and healing appropriately. There is edema and tenderness but no significant erythema and minimal bloody drainage on the dressing. NEUROLOGIC: The patient has grossly intact cranial nerves and grossly intact sensation. DIET UPON DISCHARGE: Should be a low-cholesterol AHA diet. MEDICATIONS: Reconciled in the chart and are as per the discharge instructions. FOLLOWUP: Followup should be with Dr. Montemayor or his PA Lisa Monterroso within 2 weeks for evaluation. She is advised to call the office with any other questions or concerns.
== END 2017-08-04 16:15 | disposition home or self-care (01) ==
LOC: C.ACU 07:05 → C.MSN 10:59 → ENRESERV 12:39
PROVIDERS: ADMIT Surgery Vascular Surgery; ATTEND Surgery Vascular Surgery
DX: I12.0 Hypertensive chronic kidney disease with stage 5 chronic kidney disease or end stage renal disease (principal); E11.22 Type 2 diabetes mellitus with diabetic chronic kidney disease; N18.6 End stage renal disease; D63.1 Anemia in chronic kidney disease; Z99.2 Dependence on renal dialysis; K21.9 Gastro-esophageal reflux disease without esophagitis; I25.10 Atherosclerotic heart disease of native coronary artery without angina pectoris; E78.5 Hyperlipidemia, unspecified; Z95.0 Presence of cardiac pacemaker; Z95.1 Presence of aortocoronary bypass graft; Z88.1 Allergy status to other antibiotic agents; Z79.4 Long term (current) use of insulin; Z79.82 Long term (current) use of aspirin; Z89.421 Acquired absence of other right toe(s); Z89.422 Acquired absence of other left toe(s); Z85.828 Personal history of other malignant neoplasm of skin

== ENCOUNTER → 2017-08-28 | Outpatient (CLI) | payer BC ==
[~2017-08-28] MED LIST changes: -CEFAZOLIN 1000MG IV PUSH 7.5 ML IV SCH; +OXYC-57 PO; -SODIUM CHLORIDE 0.9% 1000ML 1,000 ML IV SCH
--- NOTE | 2017-08-28 12:39 | DIAGNOSTIC IMAGING REPORT ---
LUMBAR SPINE 5 VIEWS HISTORY: Low back pain. COMPARISON: Lumbar spine 07/08/2011. FINDINGS: There is no fracture. No subluxation. Moderate dextroscoliosis of the lumbar spine is again noted. There is moderate to severe degenerative disc disease throughout the lumbar spine with associated endplate osteophytes. This is also not significantly changed. Prior cholecystectomy. The sacrum appears intact. Moderate right facet osteoarthritis within the lower lumbar spine. IMPRESSION: 1. No significant change compared to the prior study. 2. Moderate dextroscoliosis with moderate to severe degenerative disc disease throughout the lumbar spine. 3. No fractures within the lumbar spine. Electronically signed by: Ted Zelaya M.D. 08/28/2017 12:38 PM Dictated Date/Time: 08/28/2017 12:36 PM
== END | disposition home or self-care (01) ==
LOC: C.RAD1850 12:17
PROVIDERS: ATTEND Internal Medicine
DX: M54.5 Low back pain (principal); M41.86 Other forms of scoliosis, lumbar region; M51.36 Other intervertebral disc degeneration, lumbar region

== ENCOUNTER 2018-04-18 17:29 | Observation (INO) ==
[2018-04-18] MEDS ORDERED: ONDANSETRON INJ 2 MG/ML 2 ML VIAL IV STA (17:42)
[2018-04-18] MEDS ORDERED: LORazepam 0.5 MG/1 ML VIAL IV STA (17:42)
--- NOTE | 2018-04-18 17:47 | Emergency Department Note ---
Entered by Amanda Howard acting as a scribe for History of Present Illness General Chief complaint: Nausea Time Seen by Provider: 04/18/18 17:33 Source: patient Mode of arrival: EMS Limitations: no limitations History of Present Illness Provider complaint: dizzy Onset (ago): hour(s) (last night) Location: head Pain Consistency: + other (persistent) Quality: + other (drunk-like) Exacerbated By: + movement (walking) Associated symptoms: + cough, + shortness of breath and + other (shaky); no fever/chills and no headaches The patient is a 83 year old female who presents to the Emergency Room with complaints of persistent dizziness that began last night. The patient describes her symptoms as drunk-like and notes that it is worse when walking. She states that she does ambulate with her walker but has been getting short of breath. The patient reports that she has also been nauseous, coughing, and shaky. The patient denies any headaches or fevers. She also denies a history of a stroke or currently taking any blood thinners but notes she does have a history of kidney disease and received a full round of dialysis yesterday. The patient also states that she was unable to schedule an appointment with her PCP. She denies any leg swelling or ear pain. She also denies any tobacco use. Home Medications Home Medications Medication Instructions Recorded Confirmed Type alprazolam 1 mg PO HS PRN 04/18/18 04/18/18 History aspirin [Aspir-81] 81 mg PO QAM 04/18/18 04/18/18 History calcium acetate 667 mg PO QDD 04/18/18 04/18/18 History cholecalciferol (vitamin D3) 5,000 unit PO DAILY 04/18/18 04/18/18 History [Vitamin D3] ezetimibe [Zetia] 10 mg PO QAM 04/18/18 04/18/18 History hydralazine 50 mg PO AMPM 04/18/18 04/18/18 History insulin aspart U-100 [Novolog 10 unit SUBCUT DIRECTED 04/18/18 04/18/18 History U-100 Insulin aspart] insulin glargine U-300 conc 28 unit SUBCUT HS 04/18/18 04/18/18 History [Toujeo SoloStar U-300 Insulin] isosorbide mononitrate 60 mg PO BID PRN 04/18/18 04/18/18 History isosorbide mononitrate 60 mg PO QAM 04/18/18 04/18/18 History meloxicam [Mobic] 15 mg PO QDD 04/18/18 04/18/18 History metoprolol succinate 50 mg PO QDD 04/18/18 04/18/18 History Allergies Allergy/AdvReac Type Severity Reaction Status Date / Time carbamazepine Allergy Intermediate RASH Verified 04/18/18 18:33 erythromycin base Allergy Intermediate RASH Verified 04/18/18 18:33 carvedilol AdvReac Intermediate DIZZINESS, Verified 04/18/18 18:33 VISUAL DISTURBANCES Yrjcrii-Ehl-Beh Reductase AdvReac Intermediate MUSCLE Verified 04/18/18 18:33 Inhibitor ACHES Past Med/Surg History Medical History Coronary artery disease Accelerated hypertension (Chronic) Acute renal insufficiency (Chronic) C. difficile colitis (Resolved) Cholecystitis (Resolved) Chronic kidney disease (Chronic) End stage renal disease End-stage renal disease on hemodialysis Neutropenia (Resolved) Pancytopenia (Resolved) Surgical History S/P cholecystectomy Social History Feels Safe at Home: Yes Smoking Status: Never smoker Review of Systems See HPI for pertinent positives & negatives. and A total of 10 systems reviewed and were otherwise negative Physical Exam Vital Signs Vital Signs - 24 hr 04/18/18 17:36 04/18/18 18:14 04/18/18 18:39 Temperature 36.5 C Temperature Source Oral Sepsis Recent Fever Within 48 Hours No Sepsis New/Unexplained Change in Mental Status No Sepsis Action Taken by Nursing No Action Required Pulse Rate 63 Pulse Rate [Left Apical] 64 64 Pulse Rhythm Regular Pulse Strength Normal Respiratory Rate 18 19 18 Respiratory Effort / Characteristics Respiratory Depth Respiratory Pattern Regular Blood Pressure 230/124 H Blood Pressure [Left Arm] 185/69 H 164/79 H Blood Pressure Mean 159 Blood Pressure Mean [Left Arm] 107 107 Blood Pressure Position Lying Pulse Oximetry 98 96 98 Oxygen Delivery Method Room Air Room Air 04/18/18 19:01 04/18/18 19:50 04/18/18 20:20 Temperature Temperature Source Sepsis Recent Fever Within 48 Hours Sepsis New/Unexplained Change in Mental Status Sepsis Action Taken by Nursing Pulse Rate 60 60 60 Pulse Rate [Left Apical] Pulse Rhythm Pulse Strength Respiratory Rate 23 24 28 H Respiratory Effort / Characteristics Respiratory Depth Respiratory Pattern Blood Pressure 152/42 H 149/51 H Blood Pressure [Left Arm] Blood Pressure Mean 78 83 Blood Pressure Mean [Left Arm] Blood Pressure Position Pulse Oximetry 94 93 Oxygen Delivery Method 04/18/18 20:21 04/18/18 20:31 04/18/18 21:00 Temperature Temperature Source Sepsis Recent Fever Within 48 Hours Sepsis New/Unexplained Change in Mental Status Sepsis Action Taken by Nursing Pulse Rate 60 60 Pulse Rate [Left Apical] 60 Pulse Rhythm Pulse Strength Respiratory Rate 20 24 21 Respiratory Effort / Characteristics Respiratory Depth Respiratory Pattern Blood Pressure 140/53 L 136/49 L Blood Pressure [Left Arm] 149/51 H Blood Pressure Mean 82 78 Blood Pressure Mean [Left Arm] 83 Blood Pressure Position Pulse Oximetry 93 93 93 Oxygen Delivery Method Room Air 04/18/18 21:30 04/18/18 22:15 04/18/18 22:31 Temperature Temperature Source Sepsis Recent Fever Within 48 Hours Sepsis New/Unexplained Change in Mental Status Sepsis Action Taken by Nursing Pulse Rate 60 60 60 Pulse Rate [Left Apical] Pulse Rhythm Pulse Strength Respiratory Rate 23 26 H 16 Respiratory Effort / Characteristics Respiratory Depth Respiratory Pattern Blood Pressure 154/52 H 144/67 H 158/52 H Blood Pressure [Left Arm] Blood Pressure Mean 86 92 87 Blood Pressure Mean [Left Arm] Blood Pressure Position Pulse Oximetry 92 95 95 Oxygen Delivery Method 04/18/18 23:01 04/18/18 23:31 04/18/18 23:38 Temperature Temperature Source Sepsis Recent Fever Within 48 Hours Sepsis New/Unexplained Change in Mental Status Sepsis Action Taken by Nursing Pulse Rate 60 60 Pulse Rate [Left Apical] Pulse Rhythm Pulse Strength Respiratory Rate 21 16 18 Respiratory Effort / Characteristics Non-Labored Spontaneous Respiratory Depth Normal Respiratory Pattern Blood Pressure 124/48 L 170/64 H Blood Pressure [Left Arm] 164/56 H Blood Pressure Mean 73 99 Blood Pressure Mean [Left Arm] 92 Blood Pressure Position Pulse Oximetry 92 96 95 Oxygen Delivery Method Room Air GENERAL: The patient is awake and alert. She appears somewhat anxious and uncomfortable. EYES: The conjunctivae are clear. The pupils are round and reactive. No nystagmus was elicited. EARS, NOSE, MOUTH AND THROAT: The nose is without any evidence of any deformity. Mucous membranes are moist tongue is midline NECK: The neck is nontender and supple. RESPIRATORY: Normal respiratory effort is noted there is no evidence of wheezing rhonchi or rales CARDIOVASCULAR: Regular rate and rhythm was noted to auscultation. There was a systolic murmur suggested. GASTROINTESTINAL: The abdomen is soft. Bowel sounds are present in all quadrants. Abdomen is nontender MUSCULOSKELETAL/EXTREMITIES: There is no evidence of gross deformity full range of motion is noted in the hips and shoulders SKIN: There is no obvious evidence of any rash. Trace pedal edema was noted bilaterally. There was a dialysis fistula noted in the right arm. There was a palpable thrill with a bruit noted to auscultation. NEUROLOGIC: Patient is awake alert and oriented x3. Strength was symmetric. There was a tremor noted in both upper extremities but no drift was appreciated. Course 173: Past medical records reviewed. The patient was evaluated in room B10, and a complete history and physical examination were performed. 1954: I reviewed the patient's case with Dr. Luna - [facility] Hospitalist. He will evaluate the patient for further management. Administered Medications Discontinued Medications Lorazepam (Ativan) 0.5 mg in 1 mls @ 1 mls/min IV NOW STA Stop: 04/18/18 17:43 Last Admin: 04/18/18 18:10 Dose: 1 mls/min Ondansetron HCl (Zofran) 4 mg IV NOW STA Stop: 04/18/18 17:43 Last Admin: 04/18/18 18:10 Dose: 4 mg Medical Decision Making Differential Diagnosis Differential diagnosis includes etiologies such as benign positional vertigo, dehydration, hypovolemia, anemia, tumor, infection, hypoglycemia, electrolyte abnormalities, cardiac sources, intracerebral event, toxicologic, neurologic, as well as others were entertained. Medical Records Attestation: I reviewed the patient's medical records. Home Medications Current Medication List: was personally reviewed by me Laboratory Data Attestation: I reviewed the patient's lab results. Result diagrams: 04/18/18 18:08 04/18/18 18:08 Lab Results 04/18/18 04/18/18 04/18/18 Range/Units 18:08 18:08 18:08 WBC 5.58 (4.8-10.8) K/uL RBC 3.24 L (4.2-5.4) M/uL Hgb 10.2 L (12.0-16.0) g/dL Hct 29.9 L (37-47) % MCV 92.3 (80-100) fL MCH 31.5 (25-34) pg MCHC 34.1 (32-36) g/dL RDW Std Deviation 47.3 H (36.4-46.3) fL RDW Coeff of Bjorn 14.0 (11.5-14.5) % Plt Count 147 (130-400) K/uL MPV 8.8 (7.4-10.4) fL Immature Gran % (Auto) 0.2 % Neut % (Auto) 51.3 % Lymph % (Auto) 31.0 % [place] % (Auto) 13.8 % Eos % (Auto) 3.2 % Baso % (Auto) 0.5 % Immature Gran # (Auto) 0.01 (0.00-0.02) K/uL Neut # (Auto) 2.86 (1.4-6.5) K/uL Lymph # (Auto) 1.73 (1.2-3.4) K/uL [place] # (Auto) 0.77 H (0.11-0.59) K/uL Eos # (Auto) 0.18 (0-0.5) K/uL Baso # (Auto) 0.03 (0-0.2) K/uL PT 10.7 (9.0-12.0) Seconds INR 1.1 (0.9-1.1) APTT 31.1 H (21.0-31.0) Seconds PTT Ratio 1.2 Sodium 134 L (136-145) mmol/L Potassium 3.8 (3.5-5.1) mmol/L Chloride 98 (98-107) mmol/L Carbon Dioxide 29 (21-32) mmol/L Anion Gap 7.0 (3-11) BUN 30 H (7-18) mg/dl Creatinine 3.10 H (0.6-1.2) mg/dl Est Cr Clr Drug Dosing 10.6 ml/min Est GFR ( Amer) 15.3 Est GFR (Non-Af Amer) 13.2 BUN/Creatinine Ratio 9.8 L (10-20) Glucose 167 H (70-99) mg/dl POC Glucose (70-99) Calcium 8.2 L (8.5-10.1) mg/dl Magnesium 2.0 (1.8-2.4) mg/dl Total Bilirubin 0.3 (0.2-1) mg/dl AST 20 (15-37) U/L ALT 20 (12-78) U/L Alkaline Phosphatase 52 (45-117) U/L Troponin I 0.019 (0-0.045) ng/ml Total Protein 6.1 L (6.4-8.2) gm/dl Albumin 2.9 L (3.4-5.0) gm/dl Globulin 3.2 (2.5-4.0) gm/dl Albumin/Globulin Ratio 0.9 (0.9-2) TSH 1.560 (0.300-4.500) uIu/ml 04/18/18 Range/Units 23:37 WBC (4.8-10.8) K/uL RBC (4.2-5.4) M/uL Hgb (12.0-16.0) g/dL Hct (37-47) % MCV (80-100) fL MCH (25-34) pg MCHC (32-36) g/dL RDW Std Deviation (36.4-46.3) fL RDW Coeff of Bjorn (11.5-14.5) % Plt Count (130-400) K/uL MPV (7.4-10.4) fL Immature Gran % (Auto) % Neut % (Auto) % Lymph % (Auto) % [place] % (Auto) % Eos % (Auto) % Baso % (Auto) % Immature Gran # (Auto) (0.00-0.02) K/uL Neut # (Auto) (1.4-6.5) K/uL Lymph # (Auto) (1.2-3.4) K/uL [place] # (Auto) (0.11-0.59) K/uL Eos # (Auto) (0-0.5) K/uL Baso # (Auto) (0-0.2) K/uL PT (9.0-12.0) Seconds INR (0.9-1.1) APTT (21.0-31.0) Seconds PTT Ratio Sodium (136-145) mmol/L Potassium (3.5-5.1) mmol/L Chloride (98-107) mmol/L Carbon Dioxide (21-32) mmol/L Anion Gap (3-11) BUN (7-18) mg/dl Creatinine (0.6-1.2) mg/dl Est Cr Clr Drug Dosing ml/min Est GFR ( Amer) Est GFR (Non-Af Amer) BUN/Creatinine Ratio (10-20) Glucose (70-99) mg/dl POC Glucose 116 H (70-99) Calcium (8.5-10.1) mg/dl Magnesium (1.8-2.4) mg/dl Total Bilirubin (0.2-1) mg/dl AST (15-37) U/L ALT (12-78) U/L Alkaline Phosphatase (45-117) U/L Troponin I (0-0.045) ng/ml Total Protein (6.4-8.2) gm/dl Albumin (3.4-5.0) gm/dl Globulin (2.5-4.0) gm/dl Albumin/Globulin Ratio (0.9-2) TSH (0.300-4.500) uIu/ml Imaging Data Radiologist's Impression: Radiology results as stated below per my review and the radiologist's interpretation: CT head/brain wo con CLINICAL HISTORY: Vertigo COMPARISON STUDY: 04/14/2017 TECHNIQUE: Axial CT of the brain is performed from the vertex to the skull base. IV contrast was not administered for this examination. A dose lowering technique was utilized adhering to the principles of ALARA. CT DOSE: 537.48 mGy.cm FINDINGS: No intra or extra-axial mass lesions are visualized. There is no CT evidence of acute cortical infarction. There is no evidence of midline shift. There is no acute hemorrhage. No calvarial fractures are visualized. There are patchy white matter hypodensities likely on a small vessel basis. There is no evidence of pathologic ventricular dilatation. There is left maxillary sinus mucosal thickening. IMPRESSION: No acute intracranial findings Electronically signed by: Juan Santamaria M.D. 04/18/2018 6:40 PM XR chest 1V portable CLINICAL HISTORY: weakness COMPARISON STUDY: 06/14/2017 FINDINGS: There are postsurgical changes of a midline sternotomy. The heart is the upper limits of normal in size. There is a left subclavian dual-chamber central venous pacemaker present. There is mild central vascular prominence. An element of mild pulmonary vascular congestion cannot be excluded. There is no lobar consolidation. There is mild lower lobe peribronchial thickening.[ IMPRESSION: 1. Suspected mild lower lobe peribronchial thickening 2. No evidence of lobar consolidation 3. Mild vascular prominence Electronically signed by: Juan Santamaria M.D. 04/18/2018 6:08 PM ECG Data Attestation: I personally reviewed and interpreted this ECG as follows: Indication: other (dizzy) Rate (beats per minute): 60 Rhythm: other (atrial paced rhythm ) Findings: + RBBB and + ectopy (LVH) Comparison ECG Date: from (10-JUN-17) Change: no significant change Blood Pressure Blood Pressure Findings: Elevated blood pressure Blood Pressure Disposition: further management by hospitalist MDM Narrative The patient is an 83-year-old female who presented to the emergency department for an evaluation of dizziness and vertigo. The patient started having vertigo symptoms yesterday. The symptoms became much worse throughout the day. She has difficulty ambulating and feels as though she is falling to the side. The patient also has tremors of both upper extremities. She did not have nystagmus. The patient was treated with Ativan and Zofran in the emergency department. On subsequent reevaluation she was feeling much better but still had significant difficulty ambulating. I discussed the patient's laboratory and radiographic studies with her. I also discussed some of the possible causes for vertigo. Because of the difficulty ambulating I did discuss this case with the on-call [facility] hospitalist. They have agreed to evaluate the patient in the emergency department for further management and disposition. Impression & Plan Ataxia, Vertigo, Nausea & vomiting Discharge Plan Visit Data Chief Complaint: Nausea ED Provider: Richardson Joseph Discharge Problem: Ataxia, Vertigo, Nausea & vomiting Patient Disposition: Being Evaluated by Hospitalist Discharge Instructions Interventions: ED Discharge Assessment Last Done: 04/18/18 23:50 The scribe's documentation has been prepared under my direction and personally reviewed by me in its entirety. I confirm that the note above accurately reflects all work, treatment, procedures, and medical decision making performed by me.
--- NOTE | 2018-04-18 18:09 | XRay Report ---
XR chest 1V portable CLINICAL HISTORY: weakness COMPARISON STUDY: 06/14/2017 FINDINGS: There are postsurgical changes of a midline sternotomy. The heart is the upper limits of no rmal in size. There is a left subclavian dual-chamber central venous pacemaker present. There is mild central vascular prominence. An element of mild pulmonary vascular congestion cannot be excluded. Th ere is no lobar consolidation. There is mild lower lobe peribronchial thickening.[ IMPRESSION: 1. Suspected mild lower lobe peribronchial thickening 2. No evidence of lobar consolidation 3. Mild vascular prominence Electronically signed by: Juan Santamaria M.D. 04/18/2018 6:08 PM
[2018-04-18 18:26] LABS: Basophils # (auto) 0.03 K/uL (0-0.2); Basophils % (auto) 0.5 %; Eosinophils # (auto) 0.18 K/uL (0-0.5); Eosinophils % (auto) 3.2 %; Hematocrit (blood only) 29.9 % (37-47); Hemoglobin 10.2 g/dL (12.0-16.0); Immature Granulocytes # (auto) 0.01 K/uL (0.00-0.02); Immature Granulocytes % (auto) 0.2 %; Lymphocytes # (auto) 1.73 K/uL (1.2-3.4); Mean Corpuscular Hgb Conc 34.1 g/dL (32-36); Mean Corpuscular Volume 92.3 fL (80-100); Mean Platelet Volume 8.8 fL (7.4-10.4); Monocytes # (auto) 0.77 K/uL (0.11-0.59); Monocytes % (auto) 13.8 %; Neutrophils # (auto) 2.86 K/uL (1.4-6.5); Neutrophils % (auto) 51.3 %; Platelet Count 147 K/uL (130-400); RDW Standard Deviation 47.3 fL (36.4-46.3); Red Blood Count 3.24 M/uL (4.2-5.4); White Blood Count 5.58 K/uL (4.8-10.8)
[2018-04-18 18:32] LABS: INR 1.1 (0.9-1.1); Partial Thromboplastin Ratio 1.2; Partial Thromboplastin Time 31.1 Seconds (21.0-31.0); Prothrombin Time 10.7 Seconds (9.0-12.0)
[2018-04-18 18:34] LABS: Albumin Level 2.9 gm/dl (3.4-5.0); BUN Creatinine Ratio 9.8 (10-20); Calcium 8.2 mg/dl (8.5-10.1); Creatinine Clr Calc Pharmacy 10.6 ml/min; Est GFR (African American) 15.3; Est GFR (Non-African American) 13.2; Potassium 3.8 mmol/L (3.5-5.1)
--- NOTE | 2018-04-18 18:41 | CT Scan Report ---
CT head/brain wo con CLINICAL HISTORY: Vertigo COMPARISON STUDY: 04/14/2017 TECHNIQUE: Axial CT of the brain is performed from the vertex to the skull base. IV contrast was not administered for this examination. A dose lowering technique was utilized adhering to the principles of ALARA. CT DOSE: 537.48 mGy.cm FINDINGS: No intra or extra-axial mass lesions are visualized. There is no CT evidence of acute cortical infarc tion. There is no evidence of midline shift. There is no acute hemorrhage. No calvarial fractures ar e visualized. There are patchy white matter hypodensities likely on a small vessel basis. There is no evidence of pathologic ventricular dilatation. There is left maxillary sinus mucosal thickening. IMPRESSION: No acute intracranial findings Electronically signed by: Juan Santamaria M.D. 04/18/2018 6:40 PM
[2018-04-18 18:46] LABS: Albumin Globulin Ratio 0.9 (0.9-2); Bilirubin,Total 0.3 mg/dl (0.2-1); Globulin 3.2 gm/dl (2.5-4.0); Total Protein 6.1 gm/dl (6.4-8.2); Troponin I 0.019 ng/ml (0-0.045)
--- NOTE | 2018-04-18 23:16 | History & Physical Report ---
Date of Service April 18, 2018 Assessment & Plan (1) Dizziness: 83-year-old female was admitted on 18 April 2018 for dizziness, weakness , shortness of breath. Dizziness: Patient notes some vertiginous symptoms with movement only. Started at the same time as her single dose of Levaquin yesterday. May be coincidental. She had undergone dialysis earlier in the morning and is unsure if excess fluid was removed. Here has no gross focal neuro deficits. CT head non-contrast showed no acute findings. Ears look good, no overt tinnitus, no hearing loss. Dizziness is most likely is either dialysis related or along the lines of BPPV. - In ED, treated with Zofran and Ativan. -We will not order any further acute imaging. She will undergo dialysis tomorrow. Recommend reassess throughout tomorrow. PT / OT ordered as well. Weakness: Patient says that she had some increased bilateral leg weakness yesterday () as well. She has had this before after dialysis. Here there is no overt weakness, she can stand under her own power, however not for long. See dizziness evaluation above. She does have a bilateral upper extremity resting tremor which she says is chronic. - Ordered PT / OT evaluations. Shortness of breath: Reportedly with some exertion, not at rest, over the past week. Concurrent self-described cold symptoms. At present, no shortness of breath or chest symptoms. In ED, afebrile, generally not tachypneic, with SpO2 in 90s on room air. EKG is in atrial paced rhythm, 60, with RBBB. TnI 0.019. TSH normal. Chest x-ray does not appear like an acute infectious issue. - Monitor SOB for now. Will trend TnI as a precaution. - Will not continue previously started (on ) Levaquin for now. ESRD on hemodialysis: MWF, last dialysis on . Admit Cr 3.1. - Consulted nephrology for hemodialysis tomorrow. Ongoing medical issues: - Hypertension: Says is on metoprolol on non-dialysis days. Is on hydralazine and Imdur daily. Also on aspirin. Continue the same here. - Hyperlipidemia: At home is on Zetia. Continue here. - CAD, prior CABG, ? history of CHF: See HTN meds above. - DM2: At home is on insulin. Will place glycemic consult. - Anemia: PMH same. Admit Hb 10.2, a little higher than recent baseline. - Neutropenia and pancytopenia: About a year ago. Patient and daughter unclear on details. - C. difficile colitis: About a year ago. - Anxiety and neuropathic pain: At home is on alprazolam in PM. Continue here. Code status: Full code Diet: Heart healthy, DM2. DVT prophy: SCDs and heparin. PT/OT: Ordered Disbo: Admit to [facility] (2) Weakness: (3) Shortness of breath: (4) End-stage renal disease on hemodialysis: (5) Hypertension: (6) Hyperlipidemia: (7) Coronary artery disease: (8) Diabetes mellitus: (9) Anemia: (10) Neutropenia: (11) Pancytopenia: (12) C. difficile colitis: (13) Anxiety: (14) Peripheral neuropathy: History of Present Illness Primary Care Provider: Sahra Noyola MD 83-year-old female presents with her mother with concerns for dizziness, weakness, and shortness of breath. - Patient says that beginning yesterday () she started feeling dizzy upon standing. She says it felt like the room was spinning. This seemed to improve with time, however her legs would feel very weak and she would almost fall over. She says right now she is not dizzy lying still in the bed, but will become dizzy if she sits up too quickly. She denies any previous history of the same. She denies any overt hearing loss, overt tinnitus, head or ear trauma , known fevers, or ear drainage. - Patient also says that beginning around Sunday () she has noticed some increased shortness of breath with walking upstairs. The following day she says she developed a "cold" consisting of a slightly productive cough. She denies any associated chest pain. At present, she says she does not feel short of breath or any chest discomfort at rest. She denies any known history of lung disease. - Patient and her daughter were also concerned about some tremor. They say that both of her hands have been shaking for at least one year now but more recently it seems like her legs are shaking as well. She normally walks with a walker. -Lastly, she wants her hospital team know that she is due for a pacemaker battery change in the near future. She follows with the [facility] cardiology service. Past medical history includes hypertension, CAD, ESRD on hemodialysis, neutropenia, pancytopenia, C. difficile colitis. Past surgical history includes cholecystectomy, four-vessel CABG around 1992, hysterectomy, skin cancer surgery on forehead, and bilateral toe amputations. Social history includes no prior tobacco use, does not drink alcohol, and lives at home by herself without regular ADL help. Daughter lives relatively nearby. Allergies Allergy/AdvReac Type Severity Reaction Status Date / Time carbamazepine Allergy Intermediate RASH Verified 04/18/18 18:33 erythromycin base Allergy Intermediate RASH Verified 04/18/18 18:33 carvedilol AdvReac Intermediate DIZZINESS, Verified 04/18/18 18:33 VISUAL DISTURBANCES [id number] Reductase AdvReac Intermediate MUSCLE Verified 04/18/18 18:33 Inhibitor ACHES Home Medications Home Medications Medication Instructions Recorded Confirmed Type alprazolam 1 mg PO HS PRN 04/18/18 04/18/18 History aspirin [Aspir-81] 81 mg PO QAM 04/18/18 04/18/18 History calcium acetate 667 mg PO QDD 04/18/18 04/18/18 History cholecalciferol (vitamin D3) 5,000 unit PO DAILY 04/18/18 04/18/18 History [Vitamin D3] ezetimibe [Zetia] 10 mg PO QAM 04/18/18 04/18/18 History hydralazine 50 mg PO AMPM 04/18/18 04/18/18 History insulin aspart U-100 [Novolog 10 unit SUBCUT DIRECTED 04/18/18 04/18/18 History U-100 Insulin aspart] insulin glargine U-300 conc 28 unit SUBCUT HS 04/18/18 04/18/18 History [Toujeo SoloStar U-300 Insulin] isosorbide mononitrate 60 mg PO BID PRN 04/18/18 04/18/18 History isosorbide mononitrate 60 mg PO QAM 04/18/18 04/18/18 History meloxicam [Mobic] 15 mg PO QDD 04/18/18 04/18/18 History metoprolol succinate 50 mg PO QDD 04/18/18 04/18/18 History Past Med/Surg History Medical History Coronary artery disease Accelerated hypertension (Chronic) Acute renal insufficiency (Chronic) C. difficile colitis (Resolved) Cholecystitis (Resolved) Chronic kidney disease (Chronic) End stage renal disease End-stage renal disease on hemodialysis Neutropenia (Resolved) Pancytopenia (Resolved) Surgical History S/P cholecystectomy Social History Current Living Situation: Alone Current Living Situation Comment: in 2 story [address]ésar, 12 steps, lives on main floor Other Information That Helps Us Care for You: No Feels Safe at Home: Yes Safety Concerns: Feels Safe At This Time Smoking Status: Never smoker Hx Alcohol Use: No Hx Substance Use: No Beliefs That Will Affect Care: Restorationist Restorationist Beliefs: practicing [facility] judaism and Spiritual Preferred Language: Indonesian Communication Ability: Effective Backpackers Manager Required: No Review of Systems Constitutional: Denies fevers, chills, focal weakness Eyes: Denies any visual loss or diplopia ENT: Denies any ear/nose/throat pain or difficulty speaking or swallowing Respiratory: Denies any hemoptysis Cardiovascular: Denies any chest pain or feeling of edema Gastrointestinal: Denies any abdominal pain, vomiting/diarrhea Musculoskeletal: Denies any acute extremity pains, myalgias, Skin: Denies any known acute rashes or lesions Neuro: Denies any headache or difficulties with speech or swallow. Psych: Denies any recent depression or anxiety Physical Exam 2 Vital Signs (Past 24 Hours): Last Vital Signs Temp 36.5 C 04/18/18 17:36 Pulse 60 04/18/18 22:31 Resp 16 04/18/18 22:31 BP 158/52 H 04/18/18 22:31 Pulse Ox 95 04/18/18 22:31 Physical Exam: GENERAL: Awake, alert, well-appearing, in no acute distress HENT: Normocephalic, atraumatic. Oropharynx unremarkable. EYES: Normal conjunctiva. Sclera non-icteric. NECK: Inspection normal. Non-tender. Supple and full ROM. No nuchal rigidity. CARDIAC: +S1S2 RRR, 2/6 systolic murmur. Pacemaker in chest. RESPIRATORY: Clear to auscultation. No wheezes or rales. Normal respiratory effort. GI: +BS, soft, non-distended. No tenderness to palpation. No rebound or guarding. EXTREMITIES: No pedal edema or calf tenderness. - Patient has good bilateral log loader helper strength, can lift legs off bed without difficulty, and can swing over to the side of the bed with minimal assistance. She can stand for only a few seconds until she says she feels too dizzy and her legs feel too weak. - Dialysis fistula in the right arm. NEURO: Very mild resting tremor in bilateral hands. Lines: PIV Results & Data Laboratory Results 04/18/18 04/18/18 04/18/18 Range/Units 18:08 18:08 18:08 WBC 5.58 (4.8-10.8) K/uL RBC 3.24 L (4.2-5.4) M/uL Hgb 10.2 L (12.0-16.0) g/dL Hct 29.9 L (37-47) % MCV 92.3 (80-100) fL MCH 31.5 (25-34) pg MCHC 34.1 (32-36) g/dL RDW Std Deviation 47.3 H (36.4-46.3) fL RDW Coeff of Bjorn 14.0 (11.5-14.5) % Plt Count 147 (130-400) K/uL MPV 8.8 (7.4-10.4) fL Immature Gran % (Auto) 0.2 % Neut % (Auto) 51.3 % Lymph % (Auto) 31.0 % [place] % (Auto) 13.8 % Eos % (Auto) 3.2 % Baso % (Auto) 0.5 % Immature Gran # (Auto) 0.01 (0.00-0.02) K/uL Neut # (Auto) 2.86 (1.4-6.5) K/uL Lymph # (Auto) 1.73 (1.2-3.4) K/uL [place] # (Auto) 0.77 H (0.11-0.59) K/uL Eos # (Auto) 0.18 (0-0.5) K/uL Baso # (Auto) 0.03 (0-0.2) K/uL PT 10.7 (9.0-12.0) Seconds INR 1.1 (0.9-1.1) APTT 31.1 H (21.0-31.0) Seconds PTT Ratio 1.2 Sodium 134 L (136-145) mmol/L Potassium 3.8 (3.5-5.1) mmol/L Chloride 98 (98-107) mmol/L Carbon Dioxide 29 (21-32) mmol/L Anion Gap 7.0 (3-11) BUN 30 H (7-18) mg/dl Creatinine 3.10 H (0.6-1.2) mg/dl Est Cr Clr Drug Dosing 10.6 ml/min Est GFR ( Amer) 15.3 Est GFR (Non-Af Amer) 13.2 BUN/Creatinine Ratio 9.8 L (10-20) Glucose 167 H (70-99) mg/dl Calcium 8.2 L (8.5-10.1) mg/dl Magnesium 2.0 (1.8-2.4) mg/dl Total Bilirubin 0.3 (0.2-1) mg/dl AST 20 (15-37) U/L ALT 20 (12-78) U/L Alkaline Phosphatase 52 (45-117) U/L Troponin I 0.019 (0-0.045) ng/ml Total Protein 6.1 L (6.4-8.2) gm/dl Albumin 2.9 L (3.4-5.0) gm/dl Globulin 3.2 (2.5-4.0) gm/dl Albumin/Globulin Ratio 0.9 (0.9-2) TSH 1.560 (0.300-4.500) uIu/ml Diagnostic Findings CT head/brain wo con IMPRESSION: No acute intracranial findings XR chest 1V portable IMPRESSION: 1. Suspected mild lower lobe peribronchial thickening 2. No evidence of lobar consolidation 3. Mild vascular prominence Code Status & VTE Plan Code Status Full code VTE Prophylaxis Plan VTE Prophylaxis will be ordered: Yes Supervising Physician Co-Signing Physician Notes Attending addendum: I have physically seen this patient, have supervised the medical residents activities, and agree with the H&P unless as otherwise noted. Assessment and Plan: Ataxia/vertigo and shortness of breath at rest with dyspnea on exertion-- Likely multifactorial: Including need for dialysis associated, BPPV, anemia and generalized deconditioning. CAD/hypertension/history of CABG/history of CHF-- Continue home medications. The patient will be admitted to telemetry for serial cardiac enzymes, serial EKG's, cardiac rhythm monitoring and a 2-D echocardiogram with Dopplers. ESRD on HD-- Sunday, Sunday and Sunday. Consult her wax pattern assembler Dr. Noyola. Remaining orders and notations as noted. Resident Activity Tracking Resident Involvement: Resident Care Provided Care Provided: [facility]
[2018-04-19] MEDS ORDERED: ACETAMINOPHEN 325 MG TAB PO PRN (00:05)
[2018-04-19] MEDS ORDERED: ONDANSETRON INJ 2 MG/ML 2 ML VIAL IV PRN (00:05)
[2018-04-19] MEDS ORDERED: HydrALAZINE TAB 50 MG TAB PO SCH (00:05)
[2018-04-19] MEDS ORDERED: PHARMACY GLYCEMIC MGMT CONSULT PRN (00:51)
[2018-04-19] MEDS ORDERED: GLUCOSE 10 TABS/TUBE PO PRN (01:04)
[2018-04-19] MEDS ORDERED: GLUCAGON FOR INJ 1 MG VIAL SQ PRN (01:04)
[2018-04-19] MEDS ORDERED: DEXTROSE 50% 50 ML SYRINGE IV PRN (01:04)
[2018-04-19] MEDS ORDERED: GLUCOSE 40% GEL 15 GM TUBE PO PRN (01:04)
[2018-04-19] MEDS ORDERED: CARBOHYDRATES FOR HYPOGLYCEMIA PO PRN (01:04)
[2018-04-19] MEDS: ALPRAZolam 0.5 MG TABLET PO PRN ×2 (01:17→20:36)
[2018-04-19] MEDS ORDERED: INSULIN GLARGINE SOLOSTAR 100 UNITS/ML 3 ML PEN SC SCH (01:30)
[2018-04-19 02:14] LABS: Appearance Urine Cloudy (Clear); Bacteria Urine Automated Negative (Negative); Bilirubin Urine Negative (Negative); Cast Urine Automated 0 /lpf (0-5); Color Urine Yellow; Epithelial Cell Urine Auto >30 /lpf (0-5); Glucose Urine UA 1+ (Negative); Ketones Urine Negative (Negative); Leukocyte Esterase Urine 3+ (Negative); Nitrite Urine Negative (Negative); Specific Gravity Urine 1.016 (1.000-1.030); Urobilinogen Urine Negative (Negative); WBC Urine Automated >30 /hpf (0-5); pH Urine 8.5 (4.5-7.5)
[2018-04-19 02:22] LABS: Protein Urine 1+ (Negative)
[2018-04-19] MEDS ORDERED: INSULIN ASPART 100 UNITS/ML 3 ML PEN SC SCH (04:00)
[2018-04-19 07:07] LABS: Basophils # (auto) 0.02 K/uL (0-0.2); Basophils % (auto) 0.4 %; Eosinophils # (auto) 0.17 K/uL (0-0.5); Eosinophils % (auto) 3.6 %; Hematocrit (blood only) 30.3 % (37-47); Hemoglobin 10.3 g/dL (12.0-16.0); Immature Granulocytes # (auto) 0.01 K/uL (0.00-0.02); Immature Granulocytes % (auto) 0.2 %; Lymphocytes # (auto) 1.77 K/uL (1.2-3.4); Lymphocytes % (auto) 37.7 %; Mean Corpuscular Volume 91.8 fL (80-100); Monocytes # (auto) 0.58 K/uL (0.11-0.59); Monocytes % (auto) 12.4 %; Neutrophils # (auto) 2.14 K/uL (1.4-6.5); Neutrophils % (auto) 45.7 %; Platelet Count 122 K/uL (130-400); RDW Coefficient of Variation 13.9 % (11.5-14.5); White Blood Count 4.69 K/uL (4.8-10.8)
[2018-04-19 07:45] LABS: BUN Creatinine Ratio 10.3 (10-20); Calcium 8.1 mg/dl (8.5-10.1); Creatinine Clr Calc Pharmacy 9.2 ml/min; Est GFR (African American) 13.5; Est GFR (Non-African American) 11.7
[2018-04-19 07:50] LABS: Troponin I 0.016 ng/ml (0-0.045)
[2018-04-19 07:59] LABS: Estimated Average Glucose 169 mg/dl
[2018-04-19] MEDS: CHOLECALCIFEROL 1,000 UNITS TAB PO SCH (08:08)
[2018-04-19] MEDS: ASPIRIN 81 MG ECTAB PO SCH (08:09)
[2018-04-19] MEDS: EZETIMIBE 10 MG TABLET PO SCH (08:09)
[2018-04-19] MEDS: HEPARIN SOD 5,000 UNIT/0.5 ML VIAL SQ SCH ×2 (08:09→20:30)
[2018-04-19] MEDS: INSULIN ASPART 100 UNITS/ML 3 ML PEN SC SCH ×4 (08:16→20:28)
--- NOTE | 2018-04-19 08:59 | Pharmacy Report ---
Glycemic Control Consultation - Date of Service April 19, 2018 - Scope Scope: Glycemic Pharmacist consulted by Dr Garcia on 04-19 for glycemic control and to write orders per [facility] inpatient glycemic control protocol - Objective Weight: 57.2 kg Accuchecks BSG (last 24hrs): 04/18/18 04/18/18 04/19/18 18:08 23:37 04:07 Glucose 167 H POC Glucose 116 H 116 H 04/19/18 04/19/18 06:38 07:39 Glucose 103 H POC Glucose 108 H Laboratory Data (last 24hrs): 04/18/18 04/19/18 18:08 06:38 Potassium 3.8 4.0 Carbon Dioxide 29 30 Anion Gap 7.0 5.0 Creatinine 3.10 H 3.42 H D Est Cr Clr Drug Dosing 10.6 9.2 HbA1c: Hemoglobin A1c 7.5 % (4.5-5.6) H 04/19/18 06:38 - Recent Pertinent Medications Outpatient Anti-diabetic Regimen: * Toujeo 28 units HS, Novolog 10 units SQ UD * A1c = 7.5% 04-19-18 Risk Factors for Insulin Resistance: * Diet: t2DM - Assessment & Plan Assessment & Plan: ASSESSMENT: * 83 year old female, T2DM admitted with dizziness, weakness and shortness of breath. PMH significant for ESRD (HD), hld, htn, anemia * Managed at home on Toujeo and Novolog - A1C on admission 7.5% * Received 10 units of Lantus this am around 1 am - plan is for possible dialysis today (MWF schedule typically) * Fasting BSG this am within range at 108 mg/dL - will utilize stress of 2 dosing for Novolog * Will trend BSGs throughout day - may need reduced Lantus dose for this evening / possibly add scale for this evening PLAN FOR INPATIENT GLYCEMIC CONTROL: * Holding outpatient oral diabetes medications * Basal insulin - will transition to Lantus inpatient (typically first dose Lantus 80% of Toujeo dose) * Lantus scale with parameters for this evening -BSG less than 140 mg/dL - Lantus 10 units -BSG 140-180 mg/dL - Lantus 15 units -BSG greater than 180 mg/dL - Lantus 20 units * Bolus insulin * NovoLog per scale ACHS or Q6hrs while NPO * Goal Range: Low 120 mg/dL - High 160 mg/dL * Correction Factor: 40 mg/dL/unit * Nutritional / Prandial insulin per carb ratio of 1 unit per 13 grams CHO consumed * Please note that the plan above was derived based on current level of insulin resistance and hospital stress. These recommendations are appropriate for inpatient admission only. Plan of care upon discharge will need to be reassessed to avoid potential outpatient hypo/hyperglycemia. Thank you.
[2018-04-19] MEDS ORDERED: SODIUM CHLORIDE 0.9% 1000ML 1,000 ML IV PRN (10:40)
[2018-04-19] MEDS ORDERED: EPOETIN ALFA 4,000 UNIT/ML VIAL IV ONE (10:47)
[2018-04-19] MEDS ORDERED: LIDOCAINE/PRILOCAINE 2.5% EA CRM EXT STA (11:00)
[2018-04-19] MEDS ORDERED: EPOETIN ALFA 5,000 UNITS in SYRINGE 0 ML IV SCH (11:15)
[2018-04-19] MEDS ORDERED: HEPARIN SOD (PORCINE) 1000 UNIT/ML 10 ML VIAL IV SCH (11:15)
--- NOTE | 2018-04-19 13:13 | Hospitalist Progress Note ---
Date of Service April 19, 2018 Assessment & Plan (1) Dizziness: CT head was negative for acute process Dizziness seems more like paroxysmal vertigo than something central Improved today. DVT prophy: SCDs and heparin. PT/OT: Ordered Disbo: Admit to [facility] (2) Weakness: process lead intact, no focal changes on exam UC pending CXR without acute process PT/OT (3) Shortness of breath: with upper respiratory symptoms, minimal cough. Sats maintained on RA. Trops neg x 3. EKG with paced rhythm 60 - continue levaquin (4) End-stage renal disease on hemodialysis: ESRD on hemodialysis: MWF, last dialysis on . - creat at baseline - Consulted nephrology for hemodialysis today (5) Hypertension: metoprolol on non-dialysis days. Continue hydralazine, Imdur, ASA (6) Hyperlipidemia: Continue Zetia (7) Coronary artery disease: as above with htn (8) Diabetes mellitus: ss, bsgs ac & hs, glycemic consult (9) Anemia: (10) Neutropenia: (11) Pancytopenia: (12) C. difficile colitis: hx of one year ago (13) Anxiety: continue home alprazolam (14) Peripheral neuropathy: (15) DVT prophylaxis: heparin, scds Subjective Ms. Dominguez feels better than when she came in. Her dizziness has improved. She only feels dizzy when standing up, no difficulty with laying down. She continues to feel week. Review of Systems All systems reviewed & are unremarkable except as noted in HPI & below Physical Exam 2 Vital Signs (Past 24 Hours): Last Vital Signs Temp 36.7 C 04/19/18 11:24 Pulse 60 04/19/18 12:45 Resp 18 04/19/18 08:15 BP 172/64 H 04/19/18 12:45 Pulse Ox 96 04/19/18 08:15 Physical Exam: General: no distress Eyes: normal inspection, PERLL Respiratory: chest non tender, clear to auscultation, normal breath sounds, no respiratory distress, no accessory muscle use Cardiac: regular rate and rhythm, no rub or gallop, no murmur, no edema, no jvd GI/: active bowel sounds, no abd pain or tenderness, soft, non distended Extremities: normal range of motion, generalized weakness, non tender Neuro/Psych: alert and oriented x 3, normal mood and affect, CN II-XII intact Skin: normal color, dry Results & Data Laboratory Results Abnormal lab results 04/18/18 04/18/18 04/18/18 Range/Units 18:08 18:08 18:08 WBC (4.8-10.8) K/uL RBC 3.24 L (4.2-5.4) M/uL Hgb 10.2 L (12.0-16.0) g/dL Hct 29.9 L (37-47) % RDW Std Deviation 47.3 H (36.4-46.3) fL Plt Count (130-400) K/uL Mclean # (Auto) 0.77 H (0.11-0.59) K/uL APTT 31.1 H (21.0-31.0) Seconds Sodium 134 L (136-145) mmol/L BUN 30 H (7-18) mg/dl Creatinine 3.10 H (0.6-1.2) mg/dl BUN/Creatinine Ratio 9.8 L (10-20) Glucose 167 H (70-99) mg/dl POC Glucose (70-99) Hemoglobin A1c (4.5-5.6) % Calcium 8.2 L (8.5-10.1) mg/dl Total Protein 6.1 L (6.4-8.2) gm/dl Albumin 2.9 L (3.4-5.0) gm/dl Urine Appearance (Clear) Urine pH (4.5-7.5) Urine Protein (Negative) Urine Glucose (UA) (Negative) Urine Blood (Negative) Ur Leukocyte Esterase (Negative) Urine WBC (Auto) (0-5) /hpf U Epithel Cells (Auto) (0-5) /lpf 04/18/18 04/19/18 04/19/18 Range/Units 23:37 00:30 04:07 WBC (4.8-10.8) K/uL RBC (4.2-5.4) M/uL Hgb (12.0-16.0) g/dL Hct (37-47) % RDW Std Deviation (36.4-46.3) fL Plt Count (130-400) K/uL Mclean # (Auto) (0.11-0.59) K/uL APTT (21.0-31.0) Seconds Sodium (136-145) mmol/L BUN (7-18) mg/dl Creatinine (0.6-1.2) mg/dl BUN/Creatinine Ratio (10-20) Glucose (70-99) mg/dl POC Glucose 116 H 116 H (70-99) Hemoglobin A1c (4.5-5.6) % Calcium (8.5-10.1) mg/dl Total Protein (6.4-8.2) gm/dl Albumin (3.4-5.0) gm/dl Urine Appearance Cloudy H (Clear) Urine pH 8.5 H (4.5-7.5) Urine Protein 1+ H (Negative) Urine Glucose (UA) 1+ H (Negative) Urine Blood Trace H (Negative) Ur Leukocyte Esterase 3+ H (Negative) Urine WBC (Auto) >30 H (0-5) /hpf U Epithel Cells (Auto) >30 H (0-5) /lpf 04/19/18 04/19/18 04/19/18 Range/Units 06:38 06:38 06:38 WBC 4.69 L (4.8-10.8) K/uL RBC 3.30 L (4.2-5.4) M/uL Hgb 10.3 L (12.0-16.0) g/dL Hct 30.3 L (37-47) % RDW Std Deviation 47.0 H (36.4-46.3) fL Plt Count 122 L (130-400) K/uL Mclean # (Auto) (0.11-0.59) K/uL APTT (21.0-31.0) Seconds Sodium (136-145) mmol/L BUN 35 H (7-18) mg/dl Creatinine 3.42 H D (0.6-1.2) mg/dl BUN/Creatinine Ratio (10-20) Glucose 103 H (70-99) mg/dl POC Glucose (70-99) Hemoglobin A1c 7.5 H (4.5-5.6) % Calcium 8.1 L (8.5-10.1) mg/dl Total Protein (6.4-8.2) gm/dl Albumin (3.4-5.0) gm/dl Urine Appearance (Clear) Urine pH (4.5-7.5) Urine Protein (Negative) Urine Glucose (UA) (Negative) Urine Blood (Negative) Ur Leukocyte Esterase (Negative) Urine WBC (Auto) (0-5) /hpf U Epithel Cells (Auto) (0-5) /lpf 04/19/18 Range/Units 07:39 WBC (4.8-10.8) K/uL RBC (4.2-5.4) M/uL Hgb (12.0-16.0) g/dL Hct (37-47) % RDW Std Deviation (36.4-46.3) fL Plt Count (130-400) K/uL Mclean # (Auto) (0.11-0.59) K/uL APTT (21.0-31.0) Seconds Sodium (136-145) mmol/L BUN (7-18) mg/dl Creatinine (0.6-1.2) mg/dl BUN/Creatinine Ratio (10-20) Glucose (70-99) mg/dl POC Glucose 108 H (70-99) Hemoglobin A1c (4.5-5.6) % Calcium (8.5-10.1) mg/dl Total Protein (6.4-8.2) gm/dl Albumin (3.4-5.0) gm/dl Urine Appearance (Clear) Urine pH (4.5-7.5) Urine Protein (Negative) Urine Glucose (UA) (Negative) Urine Blood (Negative) Ur Leukocyte Esterase (Negative) Urine WBC (Auto) (0-5) /hpf U Epithel Cells (Auto) (0-5) /lpf
[2018-04-19] MEDS ORDERED: LEVOFLOXACIN CONSULT ACTIVE PRN (13:39)
--- NOTE | 2018-04-19 15:03 | Nephrology Consultation ---
Date of Consultation April 19, 2018 Assessment & Plan (1) ESRD (end stage renal disease) on dialysis: Ms. Dominguez is a frail elderly white female w/ ESRD due to cardiorenal syndrome. She has been admitted to the hospital for evaluation of dizziness and weakness. Patient is currently afebrile without leukocytosis. CXR is negative for pulmonary infiltrate. She has only a cough productive of scant clear sputum. Dizziness & weakness may represent a viral infection or possibly progression of her ICM. -- HD today. Will limit UF to 1L as patient is at her EDW (2) Dizziness: -- No carotid bruit to my exam today -- Head CT negative for acute change -- Recommend trial of Meclizine -- Will check orthostatic vital signs (3) Weakness: -- Consult PT/OT for strengthening (4) Coronary artery disease: -- Recommend echocardiogram to reassess RV and LV function History of Present Illness Reason for Consultation: ESRD requiring HD Attending Physician: Boom Hanley MD History of Present Illness Ms. Dominguez is an 83 year old white female who is seen at the request of the [facility] Hospitalist Service to provide HD. Medical records in the EMR were reviewed today and are summarized as follows: Ms. 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 She has been on IHD since 06/24. Her medical history is significant for AODM, HTN, ASCVD s/p CABG and recurrent CHF. Ms. Dominguez reports that last week she developed a cough productive of white sputum. She was seen at dialysis and prescribe Levaquin. She has taken only one dose but now complains of progressive weakness and dizziness. She has difficulty ambulating even short distances despite the use of a walker. Ms. Dominguez denies any recent ill contacts. She denies fever, dyspnea, angina or uremic symptoms. She reports no complications with her outpatient dialysis treatments. Allergies Allergy/AdvReac Type Severity Reaction Status Date / Time carbamazepine Allergy Intermediate RASH Verified 04/18/18 18:33 erythromycin base Allergy Intermediate RASH Verified 04/18/18 18:33 carvedilol AdvReac Intermediate DIZZINESS, Verified 04/18/18 18:33 VISUAL DISTURBANCES Palwfyo-Ecc-Hgk Reductase AdvReac Intermediate MUSCLE Verified 04/18/18 18:33 Inhibitor ACHES Home Medications Home Medications Medication Instructions Recorded Confirmed Type alprazolam 1 mg PO HS PRN 04/18/18 04/18/18 History aspirin [Aspir-81] 81 mg PO QAM 04/18/18 04/18/18 History calcium acetate 667 mg PO QDD 04/18/18 04/18/18 History cholecalciferol (vitamin D3) 5,000 unit PO DAILY 04/18/18 04/18/18 History [Vitamin D3] ezetimibe [Zetia] 10 mg PO QAM 04/18/18 04/18/18 History hydralazine 50 mg PO AMPM 04/18/18 04/18/18 History insulin aspart U-100 [Novolog 10 unit SUBCUT DIRECTED 04/18/18 04/18/18 History U-100 Insulin aspart] insulin glargine U-300 conc 28 unit SUBCUT HS 04/18/18 04/18/18 History [Toujeo SoloStar U-300 Insulin] isosorbide mononitrate 60 mg PO BID PRN 04/18/18 04/18/18 History isosorbide mononitrate 60 mg PO QAM 04/18/18 04/18/18 History meloxicam [Mobic] 15 mg PO QDD 04/18/18 04/18/18 History metoprolol succinate 50 mg PO QDD 04/18/18 04/18/18 History Patient History Medical History Coronary artery disease Accelerated hypertension (Chronic) Acute renal insufficiency (Chronic) C. difficile colitis (Resolved) Cholecystitis (Resolved) Chronic kidney disease (Chronic) End stage renal disease End-stage renal disease on hemodialysis Neutropenia (Resolved) Pancytopenia (Resolved) Surgical History S/P cholecystectomy Social History Current Living Situation: Alone Current Living Situation Comment: in 2 story [address], 12 steps, lives on main floor Other Information That Helps Us Care for You: No Feels Safe at Home: Yes Safety Concerns: Feels Safe At This Time Smoking Status: Never smoker Hx Alcohol Use: No Hx Substance Use: No Beliefs That Will Affect Care: Religion Religion Beliefs: practicing babtist - [place] Islam yarsanism and Spiritual Preferred Language: Urdu Communication Ability: Effective 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 Required: No Review of Systems Constitutional: no fever Respiratory: + cough; no dyspnea Cardiovascular: no chest pain and no edema Gastrointestinal: no vomiting and no diarrhea/loose stools Physical Exam 2 Vital Signs (Past 24 Hours): Last Vital Signs Temp 36.7 C 04/19/18 11:24 Pulse 60 04/19/18 14:00 Resp 18 04/19/18 08:15 BP 172/69 H 04/19/18 14:00 Pulse Ox 96 04/19/18 08:15 Constitutional: frail appearing Eyes: PERRL, conjunctivae normal, anicteric sclerae Neck: trachea midline, no thyromegaly no carotid bruit Respiratory: normal respiratory effort, lungs clear to auscultation no respiratory distress Cardiovascular: Rate/Rhythm: regular rate and regular rhythm Vessels: + JVD Extremities: + AV fistula; no edema + bruit Gastrointestinal (Abdomen): normal bowel sounds, soft, nontender, no hepatosplenomegaly Results & Data Laboratory Results Laboratory Tests 04/19/18 04/19/18 06:38 06:38 WBC 4.69 L Hgb 10.3 L Hct 30.3 L Plt Count 122 L Sodium 136 Potassium 4.0 Chloride 101 Carbon Dioxide 30 BUN 35 H Creatinine 3.42 H D Glucose 103 H
[2018-04-19] MEDS: levoFLOXacin 500 MG TAB PO SCH (15:47)
[2018-04-19] MEDS: MELOXICAM 7.5 MG TAB PO SCH (15:48)
[2018-04-19] MEDS: CALCIUM ACETATE 667 MG CAP PO SCH (15:48)
[2018-04-19] MEDS: METOPROLOL SUCC 50MG EXT REL TAB PO SCH (15:52)
[2018-04-19] MEDS ORDERED: MECLIZINE HCL 25 MG TAB PO PRN (16:11)
[2018-04-19] MEDS: INSULIN GLARGINE SOLOSTAR 100 UNITS/ML 3 ML PEN SC SCH (20:29)
[2018-04-20 06:16] LABS: Hematocrit (blood only) 31.1 % (37-47); Hemoglobin 10.7 g/dL (12.0-16.0); Mean Corpuscular Hgb Conc 34.4 g/dL (32-36); Mean Corpuscular Volume 91.7 fL (80-100); Platelet Count 114 K/uL (130-400); RDW Coefficient of Variation 14.1 % (11.5-14.5); RDW Standard Deviation 47.2 fL (36.4-46.3); Red Blood Count 3.39 M/uL (4.2-5.4)
[2018-04-20 06:57] LABS: BUN Creatinine Ratio 8.3 (10-20); Calcium 8.2 mg/dl (8.5-10.1); Creatinine Clr Calc Pharmacy 12.3 ml/min; Est GFR (African American) 18.7; Est GFR (Non-African American) 16.1; Potassium 4.3 mmol/L (3.5-5.1)
[2018-04-20] MEDS: EZETIMIBE 10 MG TABLET PO SCH (08:47)
[2018-04-20] MEDS: CHOLECALCIFEROL 1,000 UNITS TAB PO SCH (08:47)
[2018-04-20] MEDS: ISOSORBIDE MONO EXTENDED REL 60 MG TABCR PO SCH (08:48)
[2018-04-20] MEDS: HydrALAZINE TAB 50 MG TAB PO SCH ×2 (08:48→20:52)
[2018-04-20] MEDS: ASPIRIN 81 MG ECTAB PO SCH (08:49)
[2018-04-20] MEDS: HEPARIN SOD 5,000 UNIT/0.5 ML VIAL SQ SCH ×2 (08:49→20:52)
[2018-04-20] MEDS: INSULIN ASPART 100 UNITS/ML 3 ML PEN SC SCH ×4 (08:52→20:54)
--- NOTE | 2018-04-20 09:02 | Hospitalist Progress Note ---
Date of Service April 20, 2018 Assessment & Plan (1) Dizziness: CT head was negative for acute process Dizziness seems more like paroxysmal vertigo than something central - no further dizziness since yesterday (2) Weakness: UC pending CXR without acute process PT/OT (3) Shortness of breath: with upper respiratory symptoms, minimal cough. Sats maintained on RA. Trops neg x 3. EKG with paced rhythm 60 - continue levaquin (4) End-stage renal disease on hemodialysis: ESRD on hemodialysis: MWF, last dialysis on 04/19 with 1L removed and tolerated well - creat at baseline - Consulted nephrology for hemodialysis management (5) Hypertension: metoprolol on non-dialysis days. Continue hydralazine, Imdur, ASA Blood pressures running a bit high this morning but no blood pressure meds yesterday due to dialysis. Will monitor after administration of home antihypertensives this morning (6) Hyperlipidemia: Continue Zetia (7) Coronary artery disease: as above with htn (8) Diabetes mellitus: ss, bsgs ac & hs, glycemic consult, bsgs stable (9) Anemia: (10) Neutropenia: (11) Pancytopenia: (12) C. difficile colitis: hx of one year ago (13) Anxiety: continue home alprazolam (14) Peripheral neuropathy: (15) DVT prophylaxis: heparin, scds Dispo: awaiting PT/OT evals and will likely require placement Subjective Ms. Dominguez feels much better today. She says she did not cough all last night. She is no longer experiencing any dizziness. She continues to be somewhat weak. Review of Systems All systems reviewed & are unremarkable except as noted in HPI & below Physical Exam 2 Vital Signs (Past 24 Hours): Last Vital Signs Temp 36.9 C 04/20/18 07:32 Pulse 60 04/20/18 07:32 Resp 20 04/20/18 07:32 BP 180/66 H 04/20/18 07:32 Pulse Ox 97 04/20/18 07:32 Physical Exam: General: no distress Eyes: normal inspection, PERLL Respiratory: chest non tender, clear to auscultation, normal breath sounds, no respiratory distress, no accessory muscle use Cardiac: regular rate and rhythm, no rub or gallop, systolic murmur, no edema, no jvd GI/: active bowel sounds, no abd pain or tenderness, soft, non distended Extremities: normal range of motion, normal strength, non tender Neuro/Psych: alert and oriented x 3, normal mood and affect Skin: normal color, dry Results & Data Laboratory Results Abnormal lab results 04/19/18 04/19/18 04/19/18 Range/Units 15:36 17:45 20:27 WBC (4.8-10.8) K/uL RBC (4.2-5.4) M/uL Hgb (12.0-16.0) g/dL Hct (37-47) % RDW Std Deviation (36.4-46.3) fL Plt Count (130-400) K/uL BUN (7-18) mg/dl Creatinine (0.6-1.2) mg/dl BUN/Creatinine Ratio (10-20) Glucose (70-99) mg/dl POC Glucose 100 H 145 H 129 H (70-99) Calcium (8.5-10.1) mg/dl 04/20/18 04/20/18 04/20/18 Range/Units 05:53 05:54 07:47 WBC 4.70 L (4.8-10.8) K/uL RBC 3.39 L (4.2-5.4) M/uL Hgb 10.7 L (12.0-16.0) g/dL Hct 31.1 L (37-47) % RDW Std Deviation 47.2 H (36.4-46.3) fL Plt Count 114 L (130-400) K/uL BUN 22 H (7-18) mg/dl Creatinine 2.62 H D (0.6-1.2) mg/dl BUN/Creatinine Ratio 8.3 L (10-20) Glucose 100 H (70-99) mg/dl POC Glucose 109 H (70-99) Calcium 8.2 L (8.5-10.1) mg/dl
--- NOTE | 2018-04-20 12:05 | Nephrology Progress Note ---
Date of Service April 20, 2018 Assessment & Plan (1) ESRD (end stage renal disease) on dialysis: Ms. Dominguez is a frail elderly white female w/ ESRD due to cardiorenal syndrome. She has been admitted to the hospital for evaluation of dizziness and weakness. Patient is currently afebrile without leukocytosis. CXR is negative for pulmonary infiltrate. She has only a cough productive of scant clear sputum. Dizziness & weakness may represent a viral infection or possibly progression of her ICM. -- had hemodialysis yesterday, currently electrolyte blood pressure and volume status acceptable. Overall clinically she is improving however still feels weak and does not feel like she can take care of herself at home yet as she lives alone --recommend holding discharge until clinically she feels better and feels like she can't stay at home alone by herself (2) Dizziness: -- No carotid bruit to my exam today -- Head CT negative for acute change -- Recommend trial of Meclizine -- Will check orthostatic vital signs (3) Weakness: -- Consult PT/OT for strengthening (4) Coronary artery disease: -- Recommend echocardiogram to reassess RV and LV function Tashi Vick Was seen and examined in her room this morning. Overall she is feeling much better. Denies any shortness of breath or chest pain. She still feels little a imbalance while walking by herself but was able to go to the bathroom this morning with using walker. Denies any further episode of chills or fever. Had dialysis yesterday uneventful. Blood pressure electrolyte acceptable today Review of Systems Detail ROS was unremarkable Respiratory: + cough; no dyspnea Physical Exam 2 Vital Signs (Past 24 Hours): Last Vital Signs Temp 36.9 C 04/20/18 07:32 Pulse 60 04/20/18 07:32 Resp 20 04/20/18 07:32 BP 137/62 04/20/18 10:33 Pulse Ox 97 04/20/18 07:32 Physical Exam: GENERAL: elderly female, AAA x 3, pleasant, healthy-appearing , not in any distress. NECK: Supple, no JVD. RESPIRATORY: Normal breathing efforts, no accessory muscle use, clear to auscultation bilaterally, no wheezes or rales. CARDIOVASCULAR: S1, S2 normal, rate rhythm regular. EXTREMITY: No lower extremity edema NEURO: speech fluent. PSYCHIATRY: Normal mood and judgment
[2018-04-20] MEDS: MELOXICAM 7.5 MG TAB PO SCH (17:36)
[2018-04-20] MEDS: CALCIUM ACETATE 667 MG CAP PO SCH (17:36)
[2018-04-20] MEDS: METOPROLOL SUCC 50MG EXT REL TAB PO SCH (17:36)
[2018-04-20] MEDS: INSULIN GLARGINE SOLOSTAR 100 UNITS/ML 3 ML PEN SC SCH (20:53)
[2018-04-20] MEDS: ALPRAZolam 0.5 MG TABLET PO PRN (20:57)
[2018-04-21] MEDS: ISOSORBIDE MONO EXTENDED REL 60 MG TABCR PO SCH (08:31)
[2018-04-21] MEDS: ASPIRIN 81 MG ECTAB PO SCH (08:32)
[2018-04-21] MEDS: HydrALAZINE TAB 50 MG TAB PO SCH ×2 (08:32→20:40)
[2018-04-21] MEDS: EZETIMIBE 10 MG TABLET PO SCH (08:32)
[2018-04-21] MEDS: levoFLOXacin 500 MG TAB PO SCH (08:32)
[2018-04-21] MEDS: CHOLECALCIFEROL 1,000 UNITS TAB PO SCH (08:32)
[2018-04-21] MEDS: HEPARIN SOD 5,000 UNIT/0.5 ML VIAL SQ SCH ×2 (08:32→20:36)
[2018-04-21] MEDS: INSULIN ASPART 100 UNITS/ML 3 ML PEN SC SCH ×4 (08:37→20:36)
--- NOTE | 2018-04-21 12:00 | Hospitalist Progress Note ---
Date of Service April 21, 2018 Assessment & Plan (1) Dizziness: CT head was negative for acute process Dizziness seems more like paroxysmal vertigo than something central - no further dizziness since admission (2) Weakness: UC negative CXR without acute process PT/OT (3) Shortness of breath: with upper respiratory symptoms, minimal cough. Sats maintained on RA. Trops neg x 3. EKG with paced rhythm 60 - continue levaquin started outpatient (4) End-stage renal disease on hemodialysis: ESRD on hemodialysis: MWF, last dialysis on 04/19 with 1L removed and tolerated well - creat at baseline - Consulted nephrology for hemodialysis management (5) Hypertension: metoprolol on non-dialysis days. Continue hydralazine, Imdur, ASA Blood pressures running intermittently elevated, asymptomatic (6) Hyperlipidemia: Continue Zetia (7) Coronary artery disease: as above with htn (8) Diabetes mellitus: ss, bsgs ac & hs, glycemic consult, bsgs stable (9) Anemia: (10) Neutropenia: (11) Pancytopenia: (12) C. difficile colitis: hx of one year ago (13) Anxiety: continue home alprazolam (14) Peripheral neuropathy: (15) DVT prophylaxis: heparin, scds Dispo: PT/OT evals recommend rehab Subjective Ms. Dominguez is feeling better today. Her cough has improved. She worked with therapy this morning Review of Systems All systems reviewed & are unremarkable except as noted in HPI & below Physical Exam 2 Vital Signs (Past 24 Hours): Last Vital Signs Temp 37.3 C 04/21/18 07:30 Pulse 59 L 04/21/18 07:30 Resp 18 04/21/18 07:30 BP 164/70 H 04/21/18 07:30 Pulse Ox 97 04/21/18 07:30 Physical Exam: General: no distress Eyes: normal inspection, PERLL Respiratory: chest non tender, clear to auscultation, normal breath sounds, no respiratory distress, no accessory muscle use Cardiac: regular rate and rhythm, no rub or gallop, systolic murmur, no edema, no jvd GI/: active bowel sounds, no abd pain or tenderness, soft, non distended Extremities: normal range of motion, normal strength, non tender Neuro/Psych: alert and oriented x 3, normal mood and affect Skin: normal color, dry Results & Data Laboratory Results Abnormal lab results 04/20/18 04/20/18 04/21/18 Range/Units 17:07 20:22 07:48 POC Glucose 100 H 111 H 137 H (70-99) 04/21/18 Range/Units 11:49 POC Glucose 132 H (70-99)
--- NOTE | 2018-04-21 12:02 | Nephrology Progress Note ---
Date of Service April 21, 2018 Assessment & Plan (1) ESRD (end stage renal disease) on dialysis: Ms. Dominguez is a frail elderly white female w/ ESRD due to cardiorenal syndrome. She has been admitted to the hospital for evaluation of dizziness and weakness. Patient is currently afebrile without leukocytosis. CXR is negative for pulmonary infiltrate. She has only a cough productive of scant clear sputum. Dizziness & weakness may represent a viral infection or possibly progression of her ICM. -- currently electrolyte blood pressure and volume status acceptable. Overall clinically she is improving however still feels weak and does not feel like she can take care of herself at home yet as she lives alone -- Agree with physical therapy and rehab placement for few days as eventually patient wants to go back home and does not want to consider [facility] placement -- dialysis tomorrow will follow (2) Dizziness: -- No carotid bruit to my exam today -- Head CT negative for acute change -- Recommend trial of Meclizine -- Will check orthostatic vital signs (3) Weakness: -- Consult PT/OT for strengthening (4) Coronary artery disease: -- Recommend echocardiogram to reassess RV and LV function Tashi Vick Was seen and examined in her room this morning. Overall she is feeling much better. Denies any shortness of breath or chest pain. She still feels weak. had physical therapy this morning and recommended to have rehab placement. Blood pressure electrolyte acceptable today Respiratory: + cough; no dyspnea Physical Exam 2 Vital Signs (Past 24 Hours): Last Vital Signs Temp 37.3 C 04/21/18 07:30 Pulse 59 L 04/21/18 07:30 Resp 18 04/21/18 07:30 BP 164/70 H 04/21/18 07:30 Pulse Ox 97 04/21/18 07:30 Constitutional: WD/WN, vitals as above + ill appearing Respiratory: normal respiratory effort, lungs clear to auscultation Cardiovascular: RRR, no murmur, no edema Neurologic: moves all extremities and awake Psychiatric: A+Ox3, euthymic affect Orientation: oriented x 3
--- NOTE | 2018-04-21 14:20 | Pharmacy Report ---
Pharmacy Glycemic Short Note 2 - Date of Service April 21, 2018 - Glycemic Short BSG Results (Last 24 hours): 04/20/18 04/20/18 04/21/18 17:07 20:22 07:48 POC Glucose 100 H 111 H 137 H 04/21/18 11:49 POC Glucose 132 H OUTPATIENT ANTIDIABETIC REGIMEN: * Toujeo 28 units HS, Novolog 10 units SQ UD * A1c = 7.5% 04-19-18 ASSESSMENT: * Excellent glycemic control over the past 24 hours. Nava was administered 13 units of insulin. * No change in risk factors for insulin resistance. * Fasting and post prandial BSGs are at goal, therefore no change in insulin regimen today. PLAN FOR INPATIENT GLYCEMIC CONTROL: * Basal insulin * Lantus scale qHS: -BSG less than 140 mg/dL - Lantus 10 units -BSG 140 mg/dL or more- Lantus 15 units * Bolus insulin * NovoLog per scale ACHS or Q6hrs while NPO * Goal Range: Low 120 mg/dL - High 160 mg/dL * Correction Factor: 40 mg/dL/unit * Nutritional / Prandial insulin per carb ratio of 1 unit per 13 grams CHO consumed PLAN FOR DISCHARGE: * A1c unreliable due to h/o of ESRD on HD * Recommend continuation of home regimen as long as patient does not report frequent hypoglycemia at home * Doses can be titrated as needed by outpatient provider
[2018-04-21] MEDS: METOPROLOL SUCC 50MG EXT REL TAB PO SCH (17:44)
[2018-04-21] MEDS: CALCIUM ACETATE 667 MG CAP PO SCH (17:44)
[2018-04-21] MEDS: MELOXICAM 7.5 MG TAB PO SCH (17:45)
[2018-04-21] MEDS: INSULIN GLARGINE SOLOSTAR 100 UNITS/ML 3 ML PEN SC SCH (20:35)
[2018-04-21] MEDS: ALPRAZolam 0.5 MG TABLET PO PRN (20:40)
[2018-04-22] MEDS: CHOLECALCIFEROL 1,000 UNITS TAB PO SCH (08:22)
[2018-04-22] MEDS: ASPIRIN 81 MG ECTAB PO SCH (08:23)
[2018-04-22] MEDS: EZETIMIBE 10 MG TABLET PO SCH (08:23)
[2018-04-22] MEDS: HEPARIN SOD 5,000 UNIT/0.5 ML VIAL SQ SCH ×2 (08:24→21:24)
[2018-04-22] MEDS: INSULIN ASPART 100 UNITS/ML 3 ML PEN SC SCH ×4 (08:27→21:22)
[2018-04-22] MEDS ORDERED: SODIUM CHLORIDE 0.9% 1000ML 1,000 ML IV PRN (08:30)
[2018-04-22 09:09] LABS: Hematocrit (blood only) 29.6 % (37-47); Hemoglobin 10.2 g/dL (12.0-16.0); Mean Corpuscular Hgb Conc 34.5 g/dL (32-36); Mean Corpuscular Volume 90.8 fL (80-100); Mean Platelet Volume 9.1 fL (7.4-10.4); Platelet Count 152 K/uL (130-400); RDW Standard Deviation 46.6 fL (36.4-46.3); Red Blood Count 3.26 M/uL (4.2-5.4)
[2018-04-22 09:46] LABS: BUN Creatinine Ratio 11.3 (10-20); Calcium 8.2 mg/dl (8.5-10.1); Creatinine Clr Calc Pharmacy 7.6 ml/min; Est GFR (African American) 10.5; Est GFR (Non-African American) 9.1; Potassium 4.2 mmol/L (3.5-5.1)
--- NOTE | 2018-04-22 10:10 | Nephrology Progress Note ---
Date of Service April 22, 2018 Assessment & Plan (1) ESRD (end stage renal disease) on dialysis: Ms. Dominguez is a frail elderly white female w/ ESRD due to cardiorenal syndrome. She has been admitted to the hospital for evaluation of dizziness and weakness. Patient is currently afebrile without leukocytosis. CXR is negative for pulmonary infiltrate. She has only a cough productive of scant clear sputum. Dizziness & weakness may represent a viral infection or possibly progression of her ICM. -- HD today as her regular schedule -- Agree with physical therapy and rehab placement for few days as eventually patient wants to go back home and does not want to consider jail placement will follow (2) Dizziness: -- No carotid bruit to my exam today -- Head CT negative for acute change -- Recommend trial of Meclizine -- Will check orthostatic vital signs (3) Weakness: -- Consult PT/OT for strengthening (4) Coronary artery disease: -- Recommend echocardiogram to reassess RV and LV function Subjective Nava Was seen and examined in her room this morning. Denies any shortness of breath or chest pain. She still feels slightly weak but overall feeling a lot better. Blood pressure electrolyte acceptable today Respiratory: + cough; no dyspnea Physical Exam 2 Vital Signs (Past 24 Hours): Last Vital Signs Temp 37 C 04/22/18 07:18 Pulse 60 04/22/18 07:18 Resp 18 04/22/18 07:18 BP 183/62 H 04/22/18 07:18 Pulse Ox 98 04/22/18 07:18 Constitutional: WD/WN, vitals as above Respiratory: normal respiratory effort, lungs clear to auscultation Cardiovascular: RRR, no murmur, no edema Neurologic: moves all extremities and awake Psychiatric: A+Ox3, euthymic affect Orientation: oriented x 3
[2018-04-22] MEDS: MELOXICAM 7.5 MG TAB PO SCH (17:26)
[2018-04-22] MEDS: CALCIUM ACETATE 667 MG CAP PO SCH (17:26)
[2018-04-22] MEDS: METOPROLOL SUCC 50MG EXT REL TAB PO SCH (17:26)
--- NOTE | 2018-04-22 18:11 | Hospitalist Progress Note ---
Date of Service April 22, 2018 Assessment & Plan (1) Dizziness: - Presented with dizziness, unclear etiology; likely related to paroxysmal vertigo. Symptoms now resolved. - CT head negative; low threshold to complete MRI, no evidence of CVA. - Echo showed EF 65-70%, grade I diastolic dysfunction. - Orthostatic vital signs negative. - Pt. is due for pacemaker exchange within near future; will need close follow up with cardiology. (2) Weakness: - Infectious work up was negative. - PT/OT recommending inpatient rehab -- [facility]. (3) Shortness of breath: - CXR showed mild lower lobe peribronchial thickening. - Was started on Levaquin q48hr as an outpatient; will continue as inpatient. - Stable on room air. (4) End-stage renal disease on hemodialysis: - Consulted nephrology, appreciate input. - Receives HD qMWF -- continue as inpatient. - Renally dose all medications. - Continue PhosLo. (5) Hypertension: - Has been hypertensive during this admission. - Continue Metoprolol 50 mg daily on non dialysis days. - Continue Hydralazine 50 mg and Imdur on non dialysis days. (6) Hyperlipidemia: - Continue Zetia as prescribed. (7) Coronary artery disease: - Continue Aspirin, Metoprolol, Zetia as prescribed. (8) Diabetes mellitus: - Pharmacy consulted for glycemic management. - Hemoglobin A1C was 7.5 on 04/19/18. (9) Chronic diastolic heart failure: - TTE showed EF 65-70%, grade I diastolic dysfunction. - Continue BB as prescribed. - Monitor for fluid overload-is on hemodialysis. (10) Anemia: - Likely anemia of chronic disease in setting of ESRD. - Hemoglobin ~10; monitor intermittently. (11) C. difficile colitis: - Diagnosed ~1 year ago. - No evidence of recurrence. (12) Anxiety: - Continue home alprazolam as prescribed. (13) Peripheral neuropathy: - Not currently on treatment. (14) DVT prophylaxis: - Heparin 5,000 units in setting of ESRD. Dispo: Discharge pending placement at acute rehab. Supervising Physician Co-Signing Physician Notes PA Supervision Note: I did not personally see or examine the patient today, but I verified all [place] points of INDU Michaels's assessment and plan with the following exceptions/ additions: None Subjective Pt. is doing well overall today. Dizziness is now resolved, has been ambulating without any new issues. She denies SOB, cough, LE edema. PT/OT recommending rehab -- discharge pending placement. Pt. has requested an acute rehab. Review of Systems All systems reviewed & are unremarkable except as noted in HPI & below Constitutional: + weakness; no fever and no chills Respiratory: no cough and no dyspnea Cardiovascular: no chest pain, no palpitations and no edema Gastrointestinal: no abdominal pain, no nausea, no constipation and no diarrhea/ loose stools Genitourinary (Female): no difficulty urinating Musculoskeletal: no joint pain Neurologic: no dizziness Allergy / Immunological: no rash Physical Exam 2 Vital Signs (Past 24 Hours): Last Vital Signs Temp 37.1 C 04/22/18 17:53 Pulse 62 04/22/18 17:53 Resp 16 04/22/18 17:53 BP 158/67 H 04/22/18 17:53 Pulse Ox 95 04/22/18 17:53 Physical Exam: General: Resting comfortably in no apparent distress HEENT: NC/AT; PERRLA with EOMI; Regal conjunctiva, MMM. Neck: Supple and nontender Cardiac: RRR w/o murmurs, gallops or rubs Lungs: CTA bilaterally; No rhonchi, wheezing, or rales Abdomen: Bowel normoactive X 4; Nontender to palpation Extremities: Warm. No edema present Neuro: No focal weakness Skin: No rash Results & Data Laboratory Results 04/22/18 04/22/18 04/22/18 Range/Units 16:38 08:54 08:54 WBC 7.20 (4.8-10.8) K/uL RBC 3.26 L (4.2-5.4) M/uL Hgb 10.2 L (12.0-16.0) g/dL Hct 29.6 L (37-47) % MCV 90.8 (80-100) fL MCH 31.3 (25-34) pg MCHC 34.5 (32-36) g/dL RDW Std Deviation 46.6 H (36.4-46.3) fL RDW Coeff of Bjorn 14.0 (11.5-14.5) % Plt Count 152 (130-400) K/uL MPV 9.1 (7.4-10.4) fL Sodium 135 L (136-145) mmol/L Potassium 4.2 (3.5-5.1) mmol/L Chloride 104 (98-107) mmol/L Carbon Dioxide 27 (21-32) mmol/L Anion Gap 4.0 (3-11) BUN 48 H (7-18) mg/dl Creatinine 4.21 H (0.6-1.2) mg/dl Est Cr Clr Drug Dosing 7.6 ml/min Est GFR ( Amer) 10.5 Est GFR (Non-Af Amer) 9.1 BUN/Creatinine Ratio 11.3 (10-20) Glucose 163 H (70-99) mg/dl POC Glucose 178 H (70-99) Calcium 8.2 L (8.5-10.1) mg/dl 04/22/18 04/21/18 Range/Units 07:45 20:24 WBC (4.8-10.8) K/uL RBC (4.2-5.4) M/uL Hgb (12.0-16.0) g/dL Hct (37-47) % MCV (80-100) fL MCH (25-34) pg MCHC (32-36) g/dL RDW Std Deviation (36.4-46.3) fL RDW Coeff of Bjorn (11.5-14.5) % Plt Count (130-400) K/uL MPV (7.4-10.4) fL Sodium (136-145) mmol/L Potassium (3.5-5.1) mmol/L Chloride (98-107) mmol/L Carbon Dioxide (21-32) mmol/L Anion Gap (3-11) BUN (7-18) mg/dl Creatinine (0.6-1.2) mg/dl Est Cr Clr Drug Dosing ml/min Est GFR ( Amer) Est GFR (Non-Af Amer) BUN/Creatinine Ratio (10-20) Glucose (70-99) mg/dl POC Glucose 136 H 132 H (70-99) Calcium (8.5-10.1) mg/dl
[2018-04-22] MEDS: ALPRAZolam 0.5 MG TABLET PO PRN (21:19)
[2018-04-22] MEDS: INSULIN GLARGINE SOLOSTAR 100 UNITS/ML 3 ML PEN SC SCH (21:23)
[2018-04-23] MEDS: DOCUSATE SODIUM 100 MG CAP PO SCH ×2 (01:14→08:10)
[2018-04-23 06:24] LABS: Hematocrit (blood only) 30.7 % (37-47); Hemoglobin 10.6 g/dL (12.0-16.0); Mean Corpuscular Hgb Conc 34.5 g/dL (32-36); Mean Corpuscular Volume 90.8 fL (80-100); Mean Platelet Volume 8.6 fL (7.4-10.4); Platelet Count 163 K/uL (130-400); RDW Coefficient of Variation 14.1 % (11.5-14.5); RDW Standard Deviation 46.9 fL (36.4-46.3); Red Blood Count 3.38 M/uL (4.2-5.4); White Blood Count 6.49 K/uL (4.8-10.8)
[2018-04-23 07:01] LABS: BUN Creatinine Ratio 7.1 (10-20); Creatinine Clr Calc Pharmacy 9.5 ml/min; Est GFR (African American) 14.5; Est GFR (Non-African American) 12.5; Magnesium 2.2 mg/dl (1.8-2.4); Potassium 4.1 mmol/L (3.5-5.1)
[2018-04-23] MEDS: HydrALAZINE TAB 50 MG TAB PO SCH (08:10)
[2018-04-23] MEDS: ASPIRIN 81 MG ECTAB PO SCH (08:11)
[2018-04-23] MEDS: EZETIMIBE 10 MG TABLET PO SCH (08:12)
[2018-04-23] MEDS: ISOSORBIDE MONO EXTENDED REL 60 MG TABCR PO SCH (08:12)
[2018-04-23] MEDS: CHOLECALCIFEROL 1,000 UNITS TAB PO SCH (08:12)
[2018-04-23] MEDS: HEPARIN SOD 5,000 UNIT/0.5 ML VIAL SQ SCH (08:12)
[2018-04-23] MEDS: INSULIN ASPART 100 UNITS/ML 3 ML PEN SC SCH ×2 (08:32→12:23)
[2018-04-23] MEDS ORDERED: SODIUM CHLORIDE 0.9% 1000ML 1,000 ML IV PRN (11:53)
--- NOTE | 2018-04-23 11:53 | Nephrology Progress Note ---
Date of Service April 23, 2018 Assessment & Plan (1) ESRD (end stage renal disease) on dialysis: Ms. Domignuez is a frail elderly white female w/ ESRD due to cardiorenal syndrome. She has been admitted to the hospital for evaluation of dizziness and weakness. Patient is currently afebrile without leukocytosis. CXR is negative for pulmonary infiltrate. She has only a cough productive of scant clear sputum. Dizziness & weakness may represent a viral infection or possibly progression of her ICM. Currently overall doing well, electrolyte, blood pressure volume status acceptable. --plan for dialysis tomorrow either inpatient or at [facility] if she gets discharged this afternoon will follow (2) Dizziness: (3) Weakness: -- Consult PT/OT for strengthening (4) Coronary artery disease: -- Recommend echocardiogram to reassess RV and LV function Subjective Nava Was seen and examined in her room this morning. Denies any shortness of breath or chest pain. Overall she is feeling better and at her baseline. Had dialysis yesterday, uneventful. Blood pressure electrolyte acceptable today. Waiting for rehab placement. Respiratory: + cough; no dyspnea Physical Exam 2 Vital Signs (Past 24 Hours): Last Vital Signs Temp 36.9 C 04/23/18 07:33 Pulse 60 04/23/18 07:33 Resp 18 04/23/18 07:33 BP 138/71 04/23/18 07:33 Pulse Ox 97 04/23/18 07:33 Constitutional: WD/WN, vitals as above + ill appearing Respiratory: normal respiratory effort, lungs clear to auscultation Cardiovascular: RRR, no murmur, no edema Neurologic: moves all extremities and awake Psychiatric: A+Ox3, euthymic affect Orientation: oriented x 3
[2018-04-23] MEDS: levoFLOXacin 500 MG TAB PO SCH (12:22)
--- NOTE | 2018-04-23 13:01 | Pharmacy Report ---
Pharmacy Glycemic Short Note 2 - Date of Service April 23, 2018 - Glycemic Short BSG Results (Last 24 hours): 04/22/18 04/22/18 04/23/18 16:38 20:46 05:46 Glucose 100 H POC Glucose 178 H 192 H 04/23/18 04/23/18 07:34 11:34 Glucose POC Glucose 119 H 184 H OUTPATIENT ANTIDIABETIC REGIMEN: * Toujeo 28 units HS, Novolog 10 units SQ UD * A1c = 7.5% 04-19-18 ASSESSMENT: 04/23/18 * Nava received a total of 21 units of insulin on 04/22/18 and 15 units on . * Post prandial blood sugars are elevated above goal range while fasting BSG's are at goal. * Will tighten carb coverage ratio to prevent post prandial hyperglycemia. * Nava received HD yesterday and so missed her lunchtime BSG check and insulin dose. This is most likely the cause of her high BSG at bedtime on 04/22. * Basal insulin will remain a sliding scale, however will decrease the dose given if HS bsg greater than 140 in an effort to prevent hypoglycemia with FBS level. I would suspect that hypoglycemia would occur over time if she received consecutive 15 unit basal insulin doses. 04/21/18 * Excellent glycemic control over the past 24 hours. Nava was administered 13 units of insulin. * No change in risk factors for insulin resistance. * Fasting and post prandial BSGs are at goal, therefore no change in insulin regimen today. PLAN FOR INPATIENT GLYCEMIC CONTROL: * Basal insulin * Lantus scale qHS: -BSG less than 140 mg/dL - Lantus 10 units -BSG 140 mg/dL or more- Lantus 12 units * Bolus insulin -tightened carb ratio * NovoLog per scale ACHS or Q6hrs while NPO * Goal Range: Low 120 mg/dL - High 160 mg/dL * Correction Factor: 40 mg/dL/unit * Nutritional / Prandial insulin per carb ratio of 1 unit per 10 grams CHO consumed PLAN FOR DISCHARGE: * A1c unreliable due to h/o of ESRD on HD * Recommend continuation of home regimen as long as patient does not report frequent hypoglycemia at home * Doses can be titrated as needed by outpatient provider
--- NOTE | 2018-04-23 16:11 | Discharge Summary ---
Date of Service April 23, 2018 Admission HPI Per Admitting Provider 83-year-old female presents with her mother with concerns for dizziness, weakness, and shortness of breath. - Patient says that beginning yesterday () she started feeling dizzy upon standing. She says it felt like the room was spinning. This seemed to improve with time, however her legs would feel very weak and she would almost fall over. She says right now she is not dizzy lying still in the bed, but will become dizzy if she sits up too quickly. She denies any previous history of the same. She denies any overt hearing loss, overt tinnitus, head or ear trauma , known fevers, or ear drainage. - Patient also says that beginning around Sunday () she has noticed some increased shortness of breath with walking upstairs. The following day she says she developed a "cold" consisting of a slightly productive cough. She denies any associated chest pain. At present, she says she does not feel short of breath or any chest discomfort at rest. She denies any known history of lung disease. - Patient and her daughter were also concerned about some tremor. They say that both of her hands have been shaking for at least one year now but more recently it seems like her legs are shaking as well. She normally walks with a walker. -Lastly, she wants her hospital team know that she is due for a pacemaker battery change in the near future. She follows with the [facility] cardiology service. Past medical history includes hypertension, CAD, ESRD on hemodialysis, neutropenia, pancytopenia, C. difficile colitis. Past surgical history includes cholecystectomy, four-vessel CABG around 1992, hysterectomy, skin cancer surgery on forehead, and bilateral toe amputations. Social history includes no prior tobacco use, does not drink alcohol, and lives at home by herself without regular ADL help. Daughter lives relatively nearby. Admission Exam Per Admitting Provider GENERAL: Awake, alert, well-appearing, in no acute distress HENT: Normocephalic, atraumatic. Oropharynx unremarkable. EYES: Normal conjunctiva. Sclera non-icteric. NECK: Inspection normal. Non-tender. Supple and full ROM. No nuchal rigidity. CARDIAC: +S1S2 RRR, 2/6 systolic murmur. Pacemaker in chest. RESPIRATORY: Clear to auscultation. No wheezes or rales. Normal respiratory effort. GI: +BS, soft, non-distended. No tenderness to palpation. No rebound or guarding. EXTREMITIES: No pedal edema or calf tenderness. 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 She can stand for only a few seconds until she says she feels too dizzy and her legs feel too weak. - Dialysis fistula in the right arm. NEURO: Very mild resting tremor in bilateral hands. Lines: PIV Principal Diagnosis Dizziness Discharge Exam General: Resting comfortably in no apparent distress HEENT: NC/AT; PERRLA with EOMI; [place] conjunctiva, MMM. Neck: Supple and nontender Cardiac: RRR w/o murmurs, gallops or rubs Lungs: CTA bilaterally; No rhonchi, wheezing, or rales Abdomen: Bowel normoactive X 4; Nontender to palpation Extremities: Warm. No edema present Neuro: No focal weakness Skin: No rash Discharge Data Allergies Allergy/AdvReac Type Severity Reaction Status Date / Time carbamazepine Allergy Intermediate RASH Verified 04/18/18 18:33 erythromycin base Allergy Intermediate RASH Verified 04/18/18 18:33 carvedilol AdvReac Intermediate DIZZINESS, Verified 04/18/18 18:33 VISUAL DISTURBANCES Uvoxxxi-Lzq-Fjd Reductase AdvReac Intermediate MUSCLE Verified 04/18/18 18:33 Inhibitor ACHES Consultations 04/18/18 19:59 ED Decision to Admit Stat 04/19/18 00:05 Consult Nephrology Stat Ordered Studies 04/18/18 17:42 CT head/brain wo con Stat Hospital Course (1) Dizziness: She presented with dizziness, unclear etiology; likely related to paroxysmal vertigo versus side effect from Levaquin? CT head was negative. Echo showed EF 65-70%, grade I diastolic dysfunction. Orthostatic vital signs were negative. Pt. is due for pacemaker exchange in near future; she has adequate pacing with cardiac evaluation. Dizziness resolved. Meclizine was ordered 25 mg TID; script was provided at discharge. (2) Weakness: Infectious work up was negative. PT/OT recommended inpt rehab vs. home. She was ambulating well on day of discharge; she will return to home. (3) Shortness of breath: CXR showed mild lower lobe peribronchial thickening. Levaquin was started as an outpatient on 1/9/19. She will complete an 8 day course. (4) End-stage renal disease on hemodialysis: Consulted nephrology, appreciate input. Receives HD qMWF -- continued as inpatient. (5) Hypertension: She was hypertensive during this admission. Beta jose, hydralazine and Imdur were continued as prescribed. (6) Hyperlipidemia: Continued Zetia as prescribed. (7) Coronary artery disease: Continued Aspirin, Metoprolol, Zetia as prescribed. (8) Diabetes mellitus: Pharmacy consulted for glycemic management. Hemoglobin A1C was 7.5 on 04/19. She will resume home insulin regimen at discharge. Pt. has follow up with promotions specialist scheduled in the next 7 days. (9) Chronic diastolic heart failure: TTE showed EF 65-70%, grade I diastolic dysfunction. Continue blood pressure control (10) Anemia: Likely anemia of chronic disease in setting of ESRD. Hemoglobin remained stable ~10. (11) C. difficile colitis: Diagnosed ~1 year ago. No evidence of recurrence. (12) Anxiety: Continued home alprazolam as prescribed. (13) Peripheral neuropathy: Not currently on treatment. (14) DVT prophylaxis: Heparin was ordered. Pt. was stable for discharge on 04/23/2018. Total Time Total Time Spent Total Time Spent (In Minutes): >30 minutes Total Time Includes: Examination of the Patient, Discharge Planning, Medication Reconciliation, Communication With Other Providers and Other Discharge Plan Discharge Items Patient Disposition: Home - Home Health Services Reason For Visit: DIZZY,WEAK,SOB Discharge Diagnosis: Dizziness, Generalized Weakness Condition: Good Discharge Goals: Improve disease control, Improve function, Increase independence and Prevent disease Activity: As commented below Lifting: Gradually increase as tolerated Bathing: No limitations Exercise/Sports: Gradually increase as tolerated Non-emergency contact: Primary Care Provider Call non-emergency contact if: you have any medication questions, your symptoms worsen and you have a fever Follow-up/Referrals: Sahra Davis MD [Primary Care Provider] - 05/02/18 11:40 am (Please, follow up with Dr. Noyola on May 02 at 11 :40 am. *If you need to change this appointment, call the office at [phone].) Diet: Carb Consistent or DM2 and Heart Healthy Add Provider Instructions: 1. Dizziness * Cardiac work up during this admission was negative. * Please follow up with cardiology in the near future to discuss pacemaker exchange. * A prescription for Meclizine 25 mg was sent to [facility]. You can take this medication up to three times daily for dizziness/vertigo. 2. Pneumonia * Please continue Levaquin 500 mg to complete a full course of antibiotics. * You will need to take a dose of Levaquin on 04/25/2018. * Prescription for Levaquin was sent to [facility]. 3. End Stage Renal Disease * Please resume dialysis as scheduled on Sunday, Sunday and Sunday. 4. Diabetes Mellitus * Please continue insulin as prescribed. * Monitor blood glucose with meals and at bedtime. Record all blood glucose readings. * Please follow up with your promotions specialist or family doctor to discuss insulin management. 5. Please schedule an appointment with your family doctor in 1-2 weeks to discuss this hospital admission. 6. Please call your family doctor or go to the ER if you develop the following: * Chest pain or shortness of breath. * Watery diarrhea in the setting of recent antibiotics. Prescriptions: New meclizine 25 mg Tablet 25 mg PO TID PRN (Reason: dizziness or vertigo) 10 Days Qty: 10 RF: 0 Continue alprazolam 1 mg Tablet 1 mg PO HS PRN (Reason: Anxiety) RF: 0 metoprolol succinate 50 mg Tablet Extended Release 24 Hr 50 mg PO QDD RF: 0 meloxicam [Mobic] 15 mg Tablet 15 mg PO QDD RF: 0 calcium acetate 667 mg Tablet 667 mg PO QDD RF: 0 aspirin [Aspir-81] 81 mg Tablet,Delayed Release (Dr/Ec) 81 mg PO QAM RF: 0 isosorbide mononitrate 60 mg Tablet Extended Release 24 Hr 60 mg PO QAM RF: 0 isosorbide mononitrate 60 mg Tablet Extended Release 24 Hr 60 mg PO BID PRN (Reason: HEART/CHEST PAIN) RF: 0 insulin aspart U-100 [Novolog U-100 Insulin aspart] 100 unit/mL Solution 10 unit SUBCUT DIRECTED RF: 0 hydralazine 50 mg Tablet 50 mg PO AMPM RF: 0 ezetimibe [Zetia] 10 mg Tablet 10 mg PO QAM RF: 0 cholecalciferol (vitamin D3) [Vitamin D3] 5,000 unit Tablet 5,000 unit PO DAILY RF: 0 insulin glargine U-300 conc [Toujeo SoloStar U-300 Insulin] 300 unit/mL (1.5 mL) Insulin Pen 28 unit SUBCUT HS RF: 0 Stand-Alone Forms: My [facility] Discharge Orders: Discharge Order (Routine); Ordered 04/23/18 Ordered By: Mitra Michaels Admission Data Admit Date/Time: 04/18/18 23:27 Attending Provider: Lilliana To Admit Provider: Dameon Garcia Primary Care Provider: Sahra Davis V. Other Providers: Jesus Manuel Luna ; Buddy Bee ; Iwona Hendricks Service: Medical Other Interventions: Discharge Summary Assessment (RN) Last Done: 04/23/18 12:46 Pending Studies at Discharge: No DC Date/Time DO NOT enter until pt leaves facility: 04/23/18 16:10 Supervising Physician Co-Signing Physician Notes PA Supervision Note: I personally saw and examined the patient. I verified all [place] points and agree with INDU Michaels with the following exceptions and/or additions: Patient doing very well, has not had any dizziness in many days and is ambulating independently. Denies lightheadedness, chest pain, shortness of breath. I discussed the case with nephrology. She is stable from their standpoint for discharge as well Vitals reviewed Gen: AAOx3, NAD HEENT: Anicteric sclerae, EOMI CV: RRR no mgr nl S1S2 Pulm: CTAB no wcr Abd: +BS soft NT ND no masses or hernias Ext: No edema, 2+ DP pulses Skin: No rashes, warm/dry Neuro: Full strength throughout 83-year-old female with the above history, here with likely benign positional paroxysmal vertigo, now resolved, continue meclizine -Plan otherwise as above Stable for discharge to home with home health
== END 2018-04-23 16:10 | disposition home health service (06) ==
LOC: 4E 17:29 → ED 17:29 → SUATTDRO 23:27 → 4E 23:50

== ENCOUNTER 2021-02-13 16:31 | Inpatient (IN) ==
[2021-02-13] MEDS ORDERED: SODIUM CHLORIDE 0.9% 1000ML 500 ML IV ONE (17:09)
--- NOTE | 2021-02-13 17:10 | Emergency Department Note ---
Impression & Plan Hypoxia ADMIT ED Provider Note HPI: The patient is an 86-year-old female with history of end-stage renal disease on dialysis Sunday, diabetes, hypertension, hyperlipidemia, sick sinus syndrome status post pacemaker, presents the emergency department with chief complaint of generalized weakness for the past 24 to 36 hours. Patient denies any recent falls. Patient states that she has had some shortness of breath, denies any chest pain. She states she has had a slight cough. She states that she generally just feels "weak". Denies any recent fevers. On arrival here to the ED the patient is noted to be hypertensive but otherwise is saturating well on room air, she is not tachycardic, she is otherwise in no acute distress on my initial evaluation. ROS: -Pulmonary: Shortness of breath -General: Generalized weakness *10 point review systems was conducted and is otherwise negative unless stated above *Outpatient medications and allergy history reviewed PE: General: Alert HEENT: Normocephalic, atraumatic, trachea midline Eyes: Extraocular eye movement is intact, no scleral erythema Pulmonary: Diminished bilateral breath sounds, slightly coarse bilaterally Cardio: Regular rate and rhythm GI: Abdomen is soft, nontender : No suprapubic tenderness MSK: No evidence of trauma or malformation of the extremities, no edema, there is an AV fistula in the right upper extremity with palpable thrill Skin: No evidence of rash Neuro: Alert, no focal deficits Psychiatric: Cooperative monitoring and evaluation advisor: - An order was placed for continuous cardiac monitoring - Patient was noted to be in a paced rhythm with rate of 60 EKG: Rate: 72 Rhythm: Paced Intervals: ND interval 252 ms, otherwise within normal limits ST changes: ST depressions in the lateral leads with apparent ST elevation in the inferior leads and lead aVR, rhythm is paced, similar morphology noted on EKG from 2019 Time: 0 Medical Decision Making: Patient presented to the emergency department with generalized weakness and shortness of breath, chest x-ray suggestive of pulmonary edema, patient was given labetalol and sublingual nitroglycerin here in the ED and her blood pressure did improve as did her work of breathing. She had desaturation to 89% was placed on nasal cannula oxygen with good improvement, I suspect that her symptoms are secondary to some mild fluid overload. She is due for dialysis tomorrow, she tells me she did receive a full session on Sunday. Patient's lab work is largely baseline with her history of CKD, potassium is 5.5, EKG is paced, patient does have some concerning changes in the lateral leads with ST depressions, inferior leads show some mild ST elevation, this does appear similar morphology to previous EKG from 2019, patient does not have any chest pain, her troponin is 0.6 which is the same as her previous troponin in the system from 2019, patient was given aspirin in the ED, I did discuss these more pronounced findings on the EKG today with on-call interventional cardiology, Dr. Jang, recommends initiating heparin drip and at this time will admit the patient to the hospitalist service and trend troponins before any potential intervention. At this is reasonable given that the patient does not currently have any chest pain and her troponin is consistent with her previous levels. Case was discussed with the on-call hospitalist, Dr. Sarmiento, the patient was accepted to a telemetry bed and will be initiated on a heparin drip by the hospitalist service. Prescreening COVID-19 test was obtained and is positive for COVID-19. Patient is symptomatically improved following antihypertensive medications and she was admitted in stable condition for further management. * Diagnosis: Pulmonary edema, hypoxia, elevated troponin * Disposition: Admission * CRITICAL CARE TIME: 46 min -Management of hypoxia with oxygen saturations less than 90% on room air requiring supplemental oxygen for stabilization, time spent at the bedside, discussion with subspecialty services regarding EKG changes, discussion with other physicians, and arrangement of admission Juan C Potts DO Emergency Medicine Past Med/Surg History Medical History Anxiety C. difficile colitis Coronary artery disease Diabetes mellitus (11/04/12) Dysphagia ESRD (end stage renal disease) on dialysis Essential tremor Hyperlipidemia (11/04/12) Hypertension Myxoma of heart Presence of cardiac pacemaker Sick sinus syndrome Skin cancer Surgical History AVF (arteriovenous fistula) S/P CABG (coronary artery bypass graft) S/P cardiac pacemaker procedure S/P cataract surgery S/P colonoscopy S/P hemorrhoidectomy S/P hysterectomy S/P laparoscopic cholecystectomy Family History Other No pertinent family history Denies family history of Ovarian cancer Prostate cancer No family history of adverse response to anesthesia Myocardial infarction Breast cancer Colorectal cancer Stroke Social History Smoking Status: Never smoker Second Hand Exposure: No; Hx Alcohol Use: No Hx Substance Use: No Preferred Language: Indonesian Communication Ability: Effective Visual Impairment: No Limitations Hearing Ability: Normal Hand Paster Required: No Beliefs That Will Affect Care: Mormonism Mormonism Beliefs: practicing [facility] and Spiritual marital status: / Current Living Situation: Alone Current Living Situation Comment: in 2 story farmhouse, 12 steps, lives on main floor current occupational status: retired Feels Safe at Home: Yes Childhood Exposure to Second-Hand Smoke: No Seatbelt Use: always Assistive Devices: Denture - Upper, Glasses and Walker Allergies Allergies Allergy/AdvReac Type Severity Reaction Status Date / Time carbamazepine Allergy Intermediate RASH Verified 02/13/21 17:45 erythromycin base Allergy Intermediate RASH Verified 02/13/21 17:45 carvedilol AdvReac Intermediate DIZZINESS, Verified 02/13/21 17:45 VISUAL DISTURBANCES [id number]-GFR-LnJ Reductase AdvReac Intermediate MUSCLE Verified 02/13/21 17:45 Inhibitor ACHES [Xmlouwj-Iue-Vcu Reductase Inhibitor] Home Meds Home Medications Medication Instructions Recorded Confirmed clobetasol 0.05 % topical ointment 1 applic TOPICAL BID PRN 01/13/19 02/13/21 cholecalciferol (vitamin D3) 25 1,000 unit PO QAM 06/08/19 02/13/21 mcg (1,000 unit) tablet (Vitamin D3) calcium acetate(phosphat bind) 667 mg PO TIDM 08/19/20 02/13/21 (Phoslyra) insulin glargine U-300 conc 300 35 unit SUBCUT DAILY ml 01/11/21 02/13/21 unit/mL (1.5 mL) subcutaneous pen ([place] SoloStar U-300 Insulin) aspirin 81 mg tablet,delayed 81 mg PO DAILY 02/13/21 02/13/21 release isosorbide mononitrate 60 mg 60 mg PO 4XWK 02/13/21 02/13/21 tablet,extended release 24 hr vit B,C-folic ac 800 mcg-zinc 12.5 1 tab PO DAILY 02/13/21 02/13/21 mg-selen-D3 2,000 unit-vit E tablet (RenaPlex-D) Previous Rx's Medication Instructions Recorded BD Ultra-Fine Micro Pen Needle 32 #400 ea NS 05/21/19 gauge x 1/4" (pen needle, diabetic) blood sugar diagnostic (OneTouch #400 ea 02/25/20 Verio test strips) digoxin 125 mcg (0.125 mg) tablet 125 mcg PO 3XWK #39 tab 06/28/20 (Digox) isosorbide mononitrate 30 mg 30 mg PO 3XWK #39 tab 06/28/20 tablet,extended release 24 hr mupirocin 2 % topical ointment 1 applic TOPICAL BID #15 g 07/09/20 lisinopril 5 mg tablet 5 mg PO DAILY #30 tab 08/13/20 propranolol 120 mg capsule,24 120 mg PO QAM #90 cap 08/19/20 hr,extended release ezetimibe 10 mg tablet (Zetia) 10 mg PO DAILY #90 tab 09/08/20 Novolog Flexpen U-100 Insulin 100 See Rx Instructions SQ .COMPLEX 10/07/20 unit/mL (3 mL) subcutaneous #45 ml NS (insulin aspart U-100) alprazolam 1 mg tablet 1 mg PO HS PRN #30 tab 12/09/20 nitroglycerin 0.4 mg sublingual 0.4 mg SUBLINGUAL Q5M PRN #25 tab 02/07/21 tablet Results & Data (ED) Vital Signs Vital Signs - 24 hr 02/13/21 16:34 02/13/21 16:36 02/13/21 16:55 Temperature 37.5 C Temperature Source Oral Pulse Rate 73 Pulse Rate from SpO2 Sensor 73 Respiratory Rate 14 22 Respiratory Effort / Characteristics Non-Labored Spontaneous Respiratory Depth Normal Respiratory Pattern Regular Blood Pressure 225/81 H Blood Pressure [Left Arm] 220/76 H Blood Pressure Mean 129 Blood Pressure Mean [Left Arm] 124 Blood Pressure Position Standing Pulse Oximetry 95 95 Oxygen Delivery Method Room Air Oxygen Flow Rate Sepsis Recent Fever Within 48 Hours No Sepsis New/Unexplained Change in Mental Status N/A Sepsis Action Taken by Nursing No Action Required 02/13/21 17:00 02/13/21 17:30 02/13/21 18:00 Temperature Temperature Source Pulse Rate 60 60 61 Pulse Rate from SpO2 Sensor 60 61 61 Respiratory Rate 20 20 22 Respiratory Effort / Characteristics Respiratory Depth Respiratory Pattern Blood Pressure 197/64 H Blood Pressure [Left Arm] Blood Pressure Mean 108 Blood Pressure Mean [Left Arm] Blood Pressure Position Pulse Oximetry 93 96 94 Oxygen Delivery Method Oxygen Flow Rate Sepsis Recent Fever Within 48 Hours Sepsis New/Unexplained Change in Mental Status Sepsis Action Taken by Nursing 02/13/21 18:08 02/13/21 18:30 02/13/21 19:00 Temperature Temperature Source Pulse Rate 60 60 Pulse Rate from SpO2 Sensor 60 Respiratory Rate 33 H 23 Respiratory Effort / Characteristics Non-Labored Respiratory Depth Respiratory Pattern Blood Pressure 190/63 H Blood Pressure [Left Arm] Blood Pressure Mean 105 Blood Pressure Mean [Left Arm] Blood Pressure Position Pulse Oximetry 95 96 89 L Oxygen Delivery Method Room Air Room Air Oxygen Flow Rate Sepsis Recent Fever Within 48 Hours Sepsis New/Unexplained Change in Mental Status Sepsis Action Taken by Nursing 02/13/21 19:27 02/13/21 19:30 02/13/21 20:00 Temperature Temperature Source Pulse Rate 60 60 Pulse Rate from SpO2 Sensor 60 Respiratory Rate 25 H 19 20 Respiratory Effort / Characteristics Respiratory Depth Respiratory Pattern Blood Pressure 188/62 H 195/59 H Blood Pressure [Left Arm] Blood Pressure Mean 104 104 Blood Pressure Mean [Left Arm] Blood Pressure Position Pulse Oximetry 89 L 98 98 Oxygen Delivery Method Room Air Nasal Cannula Nasal Cannula Oxygen Flow Rate 3 3 3 Sepsis Recent Fever Within 48 Hours Sepsis New/Unexplained Change in Mental Status Sepsis Action Taken by Nursing 02/13/21 20:30 02/13/21 21:00 02/13/21 21:15 Temperature Temperature Source Pulse Rate 60 60 Pulse Rate from SpO2 Sensor 60 56 L Respiratory Rate 30 H 20 Respiratory Effort / Characteristics Respiratory Depth Respiratory Pattern Blood Pressure 181/53 H 119/57 L Blood Pressure [Left Arm] 181/75 H Blood Pressure Mean 95 77 Blood Pressure Mean [Left Arm] 110 Blood Pressure Position Pulse Oximetry 100 100 Oxygen Delivery Method Oxygen Flow Rate Sepsis Recent Fever Within 48 Hours Sepsis New/Unexplained Change in Mental Status Sepsis Action Taken by Nursing 02/13/21 21:30 02/13/21 21:54 Temperature Temperature Source Pulse Rate 59 L 60 Pulse Rate from SpO2 Sensor 62 Respiratory Rate 26 H 25 H Respiratory Effort / Characteristics Respiratory Depth Respiratory Pattern Blood Pressure 184/53 H 170/75 H Blood Pressure [Left Arm] Blood Pressure Mean 96 Blood Pressure Mean [Left Arm] Blood Pressure Position Pulse Oximetry 100 100 Oxygen Delivery Method Nasal Cannula Oxygen Flow Rate 3 Sepsis Recent Fever Within 48 Hours Sepsis New/Unexplained Change in Mental Status Sepsis Action Taken by Nursing Laboratory Data Result diagrams: 02/13/21 16:44 02/13/21 16:44 Lab Results 02/13/21 02/13/21 02/13/21 Range/Units 16:44 16:44 16:44 WBC 9.91 (4.8-10.8) K/uL RBC 3.60 L (4.2-5.4) M/uL Hgb 11.9 L (12.0-16.0) g/dL Hct 35.1 L (37-47) % MCV 97.5 (80-100) fL MCH 33.1 (25-34) pg MCHC 33.9 (32-36) g/dL RDW Std Deviation 54.7 H (36.4-46.3) fL RDW Coeff of Bjorn 15.6 H (11.5-14.5) % Plt Count 139 (130-400) K/uL MPV 9.5 (7.4-10.4) fL Immature Gran % (Auto) 0.1 % Neut % (Auto) 66.4 % Lymph % (Auto) 20.0 % [place] % (Auto) 12.3 % Eos % (Auto) 0.7 % Baso % (Auto) 0.5 % Neut # (Auto) 6.58 H (1.4-6.5) K/uL Lymph # (Auto) 1.98 (1.2-3.4) K/uL [place] # (Auto) 1.22 H (0.11-0.59) K/uL Eos # (Auto) 0.07 (0-0.5) K/uL Baso # (Auto) 0.05 (0-0.2) K/uL Immature Gran # (Auto) 0.01 (0.00-0.02) K/uL PT 10.8 (9.0-12.0) Seconds INR 1.1 (0.9-1.1) APTT 27.8 (21.0-31.0) Seconds PTT Ratio 1.1 Sodium 133 L (136-145) mmol/L Potassium 5.5 H (3.5-5.1) mmol/L Chloride 96 L (98-107) mmol/L Carbon Dioxide 25 (21-32) mmol/L Anion Gap 12.0 H (3-11) BUN 55 H (7-18) mg/dl Creatinine 5.67 H* (0.6-1.2) mg/dl Est Cr Clr Drug Dosing 5.1 ml/min Est GFR ( Amer) 7.2 ml/min Est GFR (Non-Af Amer) 6.2 ml/min BUN/Creatinine Ratio 9.8 L (10-20) Glucose 212 H (70-99) mg/dl Lactate (0.4-2.0) mmol/L Calcium 9.6 (8.5-10.1) mg/dl Magnesium 2.7 H (1.8-2.4) mg/dl Total Bilirubin 0.9 (0.2-1) mg/dl AST 29 (15-37) U/L ALT 27 (12-78) U/L Alkaline Phosphatase 47 (45-117) U/L Troponin I (0-0.045) ng/ml NT-Pro-B Natriuret Pep (0-1800) pg/ml Total Protein 7.4 (6.4-8.2) gm/dl Albumin 3.6 (3.4-5.0) gm/dl Globulin 3.8 (2.5-4.0) gm/dl Albumin/Globulin Ratio 1.0 (0.9-2) Procalcitonin (0-0.5) ng/ml Urine Color Urine Appearance (Clear) Urine pH (4.5-7.5) Ur Specific [place] (1.000-1.030) Urine Protein (Negative) Urine Glucose (UA) (Negative) Urine Ketones (Negative) Urine Blood (Negative) Urine Nitrite (Negative) Urine Bilirubin (Negative) Urine Urobilinogen (Negative) Ur Leukocyte Esterase (Negative) Urine WBC (Auto) (0-5) /hpf Urine RBC (Auto) (0-4) /hpf U Hyaline Cast (Auto) (0-5) /lpf U Epithel Cells (Auto) (0-5) /lpf Urine Bacteria (Auto) (Negative) Digoxin (0.8-2.0) ng/ml COVID-19 Eval Order SARS-CoV-2 (PCR) (Negative) 1102/13/21 02/13/21 Range/Units 16:44 16:44 16:44 WBC (4.8-10.8) K/uL RBC (4.2-5.4) M/uL Hgb (12.0-16.0) g/dL Hct (37-47) % MCV (80-100) fL MCH (25-34) pg MCHC (32-36) g/dL RDW Std Deviation (36.4-46.3) fL RDW Coeff of Bjorn (11.5-14.5) % Plt Count (130-400) K/uL MPV (7.4-10.4) fL Immature Gran % (Auto) % Neut % (Auto) % Lymph % (Auto) % [place] % (Auto) % Eos % (Auto) % Baso % (Auto) % Neut # (Auto) (1.4-6.5) K/uL Lymph # (Auto) (1.2-3.4) K/uL [place] # (Auto) (0.11-0.59) K/uL Eos # (Auto) (0-0.5) K/uL Baso # (Auto) (0-0.2) K/uL Immature Gran # (Auto) (0.00-0.02) K/uL PT (9.0-12.0) Seconds INR (0.9-1.1) APTT (21.0-31.0) Seconds PTT Ratio Sodium (136-145) mmol/L Potassium (3.5-5.1) mmol/L Chloride (98-107) mmol/L Carbon Dioxide (21-32) mmol/L Anion Gap (3-11) BUN (7-18) mg/dl Creatinine (0.6-1.2) mg/dl Est Cr Clr Drug Dosing ml/min Est GFR ( Amer) ml/min Est GFR (Non-Af Amer) ml/min BUN/Creatinine Ratio (10-20) Glucose (70-99) mg/dl Lactate (0.4-2.0) mmol/L Calcium (8.5-10.1) mg/dl Magnesium (1.8-2.4) mg/dl Total Bilirubin (0.2-1) mg/dl AST (15-37) U/L ALT (12-78) U/L Alkaline Phosphatase (45-117) U/L Troponin I (0-0.045) ng/ml NT-Pro-B Natriuret Pep (0-1800) pg/ml Total Protein (6.4-8.2) gm/dl Albumin (3.4-5.0) gm/dl Globulin (2.5-4.0) gm/dl Albumin/Globulin Ratio (0.9-2) Procalcitonin 0.11 (0-0.5) ng/ml Urine Color Dark Yellow Urine Appearance Clear (Clear) Urine pH 8.0 H (4.5-7.5) Ur Specific [place] 1.017 (1.000-1.030) Urine Protein 3+ H (Negative) Urine Glucose (UA) 2+ H (Negative) Urine Ketones Negative (Negative) Urine Blood Negative (Negative) Urine Nitrite Negative (Negative) Urine Bilirubin Negative (Negative) Urine Urobilinogen Negative (Negative) Ur Leukocyte Esterase Negative (Negative) Urine WBC (Auto) 0 (0-5) /hpf Urine RBC (Auto) 0-4 (0-4) /hpf U Hyaline Cast (Auto) 0 (0-5) /lpf U Epithel Cells (Auto) 0-5 (0-5) /lpf Urine Bacteria (Auto) Negative (Negative) Digoxin (0.8-2.0) ng/ml COVID-19 Eval Order Covid19 at [facility] SARS-CoV-2 (PCR) (Negative) 02/13/21 02/13/21 02/13/21 Range/Units 16:44 16:44 17:26 WBC (4.8-10.8) K/uL RBC (4.2-5.4) M/uL Hgb (12.0-16.0) g/dL Hct (37-47) % MCV (80-100) fL MCH (25-34) pg MCHC (32-36) g/dL RDW Std Deviation (36.4-46.3) fL RDW Coeff of Bjorn (11.5-14.5) % Plt Count (130-400) K/uL MPV (7.4-10.4) fL Immature Gran % (Auto) % Neut % (Auto) % Lymph % (Auto) % [place] % (Auto) % Eos % (Auto) % Baso % (Auto) % Neut # (Auto) (1.4-6.5) K/uL Lymph # (Auto) (1.2-3.4) K/uL [place] # (Auto) (0.11-0.59) K/uL Eos # (Auto) (0-0.5) K/uL Baso # (Auto) (0-0.2) K/uL Immature Gran # (Auto) (0.00-0.02) K/uL PT (9.0-12.0) Seconds INR (0.9-1.1) APTT (21.0-31.0) Seconds PTT Ratio Sodium (136-145) mmol/L Potassium (3.5-5.1) mmol/L Chloride (98-107) mmol/L Carbon Dioxide (21-32) mmol/L Anion Gap (3-11) BUN (7-18) mg/dl Creatinine (0.6-1.2) mg/dl Est Cr Clr Drug Dosing ml/min Est GFR ( Amer) ml/min Est GFR (Non-Af Amer) ml/min BUN/Creatinine Ratio (10-20) Glucose (70-99) mg/dl Lactate 1.4 (0.4-2.0) mmol/L Calcium (8.5-10.1) mg/dl Magnesium (1.8-2.4) mg/dl Total Bilirubin (0.2-1) mg/dl AST (15-37) U/L ALT (12-78) U/L Alkaline Phosphatase (45-117) U/L Troponin I 0.644 H* (0-0.045) ng/ml NT-Pro-B Natriuret Pep > 89176 H (0-1800) pg/ml Total Protein (6.4-8.2) gm/dl Albumin (3.4-5.0) gm/dl Globulin (2.5-4.0) gm/dl Albumin/Globulin Ratio (0.9-2) Procalcitonin (0-0.5) ng/ml Urine Color Urine Appearance (Clear) Urine pH (4.5-7.5) Ur Specific [place] (1.000-1.030) Urine Protein (Negative) Urine Glucose (UA) (Negative) Urine Ketones (Negative) Urine Blood (Negative) Urine Nitrite (Negative) Urine Bilirubin (Negative) Urine Urobilinogen (Negative) Ur Leukocyte Esterase (Negative) Urine WBC (Auto) (0-5) /hpf Urine RBC (Auto) (0-4) /hpf U Hyaline Cast (Auto) (0-5) /lpf U Epithel Cells (Auto) (0-5) /lpf Urine Bacteria (Auto) (Negative) Digoxin (0.8-2.0) ng/ml COVID-19 Eval Order SARS-CoV-2 (PCR) POSITIVE A* (Negative) 02/13/21 Range/Units 21:17 WBC (4.8-10.8) K/uL RBC (4.2-5.4) M/uL Hgb (12.0-16.0) g/dL Hct (37-47) % MCV (80-100) fL MCH (25-34) pg MCHC (32-36) g/dL RDW Std Deviation (36.4-46.3) fL RDW Coeff of Bjorn (11.5-14.5) % Plt Count (130-400) K/uL MPV (7.4-10.4) fL Immature Gran % (Auto) % Neut % (Auto) % Lymph % (Auto) % [place] % (Auto) % Eos % (Auto) % Baso % (Auto) % Neut # (Auto) (1.4-6.5) K/uL Lymph # (Auto) (1.2-3.4) K/uL [place] # (Auto) (0.11-0.59) K/uL Eos # (Auto) (0-0.5) K/uL Baso # (Auto) (0-0.2) K/uL Immature Gran # (Auto) (0.00-0.02) K/uL PT (9.0-12.0) Seconds INR (0.9-1.1) APTT (21.0-31.0) Seconds PTT Ratio Sodium (136-145) mmol/L Potassium (3.5-5.1) mmol/L Chloride (98-107) mmol/L Carbon Dioxide (21-32) mmol/L Anion Gap (3-11) BUN (7-18) mg/dl Creatinine (0.6-1.2) mg/dl Est Cr Clr Drug Dosing ml/min Est GFR ( Amer) ml/min Est GFR (Non-Af Amer) ml/min BUN/Creatinine Ratio (10-20) Glucose (70-99) mg/dl Lactate (0.4-2.0) mmol/L Calcium (8.5-10.1) mg/dl Magnesium (1.8-2.4) mg/dl Total Bilirubin (0.2-1) mg/dl AST (15-37) U/L ALT (12-78) U/L Alkaline Phosphatase (45-117) U/L Troponin I (0-0.045) ng/ml NT-Pro-B Natriuret Pep (0-1800) pg/ml Total Protein (6.4-8.2) gm/dl Albumin (3.4-5.0) gm/dl Globulin (2.5-4.0) gm/dl Albumin/Globulin Ratio (0.9-2) Procalcitonin (0-0.5) ng/ml Urine Color Urine Appearance (Clear) Urine pH (4.5-7.5) Ur Specific [place] (1.000-1.030) Urine Protein (Negative) Urine Glucose (UA) (Negative) Urine Ketones (Negative) Urine Blood (Negative) Urine Nitrite (Negative) Urine Bilirubin (Negative) Urine Urobilinogen (Negative) Ur Leukocyte Esterase (Negative) Urine WBC (Auto) (0-5) /hpf Urine RBC (Auto) (0-4) /hpf U Hyaline Cast (Auto) (0-5) /lpf U Epithel Cells (Auto) (0-5) /lpf Urine Bacteria (Auto) (Negative) Digoxin 1.8 (0.8-2.0) ng/ml COVID-19 Eval Order SARS-CoV-2 (PCR) (Negative) Administered Medications Heparin Sodium/Dextrose (Heparin Sodium/Dextrose) 25,000 units in 500 mls @ 18 mls/hr IV .Q24H [facility]; Protocol Stop: 03/15/21 20:44 Last Admin: 02/13/21 21:13 Dose: 900 units/hr, 18 mls/hr Documented by: [id number] Cosigned by: [id number] Discontinued Medications Aspirin (Aspirin Chew 324 Mg) 324 mg PO NOW STA Stop: 02/13/21 19:52 Last Admin: 02/13/21 20:04 Dose: 324 mg Documented by: [id number] Furosemide (Furosemide 40 Mg/4 Ml Vial) 40 mg IV ONE ONE Stop: 02/13/21 21:31 Last Admin: 02/13/21 21:32 Dose: Not Given Documented by: [id number] Furosemide (Furosemide 40 Mg/4 Ml Vial) Confirm Administered Dose 40 mg IV .STK- MED ONE Stop: 02/13/21 21:03 Last Admin: 02/13/21 21:11 Dose: 40 mg Documented by: [id number] Heparin Sodium (Porcine) (Heparin Sod (Porcine) 1000 Unit/Ml) 4,000 units IV NOW ONE Stop: 02/13/21 20:41 Last Admin: 02/13/21 21:13 Dose: 4,000 units Documented by: [id number] Cosigned by: [id number] Sodium Chloride (Nss 1000ml) 500 mls @ 999 mls/hr IV .Q31M ONE Stop: 02/13/21 17:39 Last Infusion: 02/13/21 18:39 Dose: 0 mls/hr Documented by: [id number] Admin: 02/13/21 18:02 Dose: 999 mls/hr Documented by: [id number] Isosorbide Mononitrate (Isosorbide [place] Extended Rel 30 Mg Tabcr) 30 mg PO NOW ONE Stop: 02/13/21 20:44 Last Admin: 02/13/21 21:11 Dose: 30 mg Documented by: [id number] Labetalol HCl (Labetalol Hcl Iv 5 Mg/Ml 20ml) 10 mg IV NOW STA Stop: 02/13/21 17:25 Last Admin: 02/13/21 18:02 Dose: 10 mg Documented by: [id number] Cosigned by: [id number] Labetalol HCl (Labetalol Hcl Iv 5 Mg/Ml 20ml) Confirm Administered Dose 5 mg IV .STK-MED ONE Stop: 02/13/21 20:20 Last Admin: 02/13/21 20:24 Dose: 5 mg Documented by: [id number] Cosigned by: [id number] Labetalol HCl (Labetalol Hcl Iv 5 Mg/Ml 20ml) Confirm Administered Dose 5 mg IV .STK-MED ONE Stop: 02/13/21 20:23 Last Admin: 02/13/21 20:26 Dose: Not Given Documented by: [id number] Lisinopril (Lisinopril 5 Mg Tab) 5 mg PO NOW ONE Stop: 02/13/21 20:39 Last Admin: 02/13/21 21:11 Dose: 5 mg Documented by: [id number] Nitroglycerin (Nitroglycerin Sl 0.4 Mg/Tab Tab) 0.4 mg SL NOW STA Stop: 02/13/21 19:32 Last Admin: 02/13/21 19:38 Dose: 0.4 mg Documented by: [id number] Ondansetron HCl (Ondansetron Inj 2 Mg/Ml 2 Ml Vial) 4 mg IV NOW STA Stop: 02/13/21 18:38 Last Admin: 02/13/21 18:39 Dose: 4 mg Documented by: [id number] Ondansetron HCl (Ondansetron Inj 2 Mg/Ml 2 Ml Vial) Confirm Administered Dose 4 mg .ROUTE .STK-MED ONE Stop: 02/13/21 18:38 Last Admin: 02/13/21 19:39 Dose: Not Given Documented by: [id number] Propranolol HCl (Propranolol Hcl 60 Mg [place]) 120 mg PO NOW STA Stop: 02/13/21 20:39 Last Admin: 02/13/21 21:11 Dose: 120 mg Documented by: [id number] Imaging Data Radiologist's Impression: Chest X-Ray 02/13/21 17:08 XR chest 1V portable CLINICAL HISTORY: SEPSIS COMPARISON STUDY: Chest radiograph October 01, 2019. FINDINGS: There are median sternotomy wires and a dual lead left subclavian pacemaker. There is no pneumothorax. There may be small bilateral pleural effusions. Cardiomegaly is unchanged. Interstitial thickening is noted. There are bilateral lower lung opacities. Patient is mildly rotated. IMPRESSION: 1. Interstitial thickening and bilateral opacities. The findings favor pulmonary edema however an infectious process could appear similar. Radiographic follow-up to ensure resolution is recommended. 2. Suspected small bilateral pleural effusions. ACT 112: Negative or not required by law. Electronically signed by: Chase Gage M.D. 02/13/2021 5:[address] 02/13/21 17:25 CT OF THE HEAD WITHOUT CONTRAST CLINICAL HISTORY: HTN, weak, r/o bleed COMPARISON STUDY: Head CT April 18, 2018. CT DOSE: 1067.06 mGycm TECHNIQUE: Helical axial images of the head were obtained without IV contrast. Automated exposure control was utilized for the study. A dose lowering technique was utilized adhering to the principles of ALARA. FINDINGS: No acute intracranial hemorrhage, midline shift or mass effect is present. Ventricular system is unremarkable. Basal cisterns are patent. There are no extra-axial collections. White matter hypodensity suggests small vessel disease. There are no findings to suggest acute dural sinus thrombosis or acute territorial infarct. Left maxillary sinus is partially opacified. This contains mixed attenuation contents. IMPRESSION: No acute intracranial findings. ACT 112: Negative or not required by law. Electronically signed by: Chase Gage M.D. 02/13/2021 6:05 PM Discharge Plan Visit Data Chief Complaint: Illness ED Provider: Juan C Potts Discharge Problem: Hypoxia Patient Disposition: Admitted As Inpatient Discharge Instructions Interventions: ED Discharge Assessment Last Done: 02/13/21 21:54 Forms Stand Alone Forms: [facility] [employer] Prescriptions Prescriptions: No Action digoxin [Digox] 125 mcg (0.125 mg) tablet 125 mcg PO 3XWK Qty: 39 RF: 3 isosorbide mononitrate 30 mg tablet extended release 24 hr 30 mg PO 3XWK Qty: 39 RF: 3 lisinopril 5 mg tablet 5 mg PO DAILY Qty: 30 RF: 5 ezetimibe [Zetia] 10 mg tablet 10 mg PO DAILY Qty: 90 RF: 1 insulin aspart U-100 [Novolog Flexpen U-100 Insulin] 100 unit/mL (3 mL) insulin pen See Rx Instructions SQ .COMPLEX Qty: 45 RF: 1 alprazolam 1 mg tablet 1 mg PO HS PRN (Reason: Anxiety) Qty: 30 RF: 5 nitroglycerin 0.4 mg tablet, sublingual 0.4 mg sublingual Q5M PRN (Reason: chest pain) Qty: 25 RF: 5 (DME) pen needle, diabetic [BD Ultra-Fine Micro Pen Needle] 32 gauge x 1/4" needle See Rx Instructions .ROUTE .MEDSUPPLY Qty: 400 RF: 3 mupirocin 2 % ointment 1 applic topical BID Qty: 15 RF: 2 Toujeo SoloStar U-300 Insulin 300 unit/mL (1.5 mL) insulin pen 35 unit subcut DAILY RF: 0 (DME) OneTouch Verio test strips Strip See Rx Instructions .ROUTE .MEDSUPPLY Qty: 400 RF: 3 Phoslyra 667 mg (169 mg calcium)/5 mL solution 667 mg PO TIDM RF: 0 propranolol 120 mg capsule,extended release 24 hr 120 mg PO QAM Qty: 90 RF: 3 clobetasol 0.05 % Ointment 1 applic TOPICAL BID PRN (Reason: Skin Irritation) RF: 0 cholecalciferol (vitamin D3) [Vitamin D3] 25 mcg (1,000 unit) tablet 1,000 unit PO QAM RF: 0 aspirin 81 mg Tablet,Delayed Release (Dr/Ec) 81 mg PO DAILY RF: 0 RenaPlex-D 800 mcg-12.5 mg -2,000 unit tablet 1 tab PO DAILY RF: 0 isosorbide mononitrate 60 mg tablet extended release 24 hr 60 mg PO 4XWK RF: 0 Referrals Referrals: Sahra Davis MD [Primary Care Provider] -
[2021-02-13 17:17] LABS: Basophils # (auto) 0.05 K/uL (0-0.2); Basophils % (auto) 0.5 %; Eosinophils # (auto) 0.07 K/uL (0-0.5); Eosinophils % (auto) 0.7 %; Hematocrit (blood only) 35.1 % (37-47); Hemoglobin 11.9 g/dL (12.0-16.0); Immature Granulocytes # (auto) 0.01 K/uL (0.00-0.02); Immature Granulocytes % (auto) 0.1 %; Lymphocytes # (auto) 1.98 K/uL (1.2-3.4); Mean Corpuscular Hemoglobin 33.1 pg (25-34); Mean Corpuscular Hgb Conc 33.9 g/dL (32-36); Mean Corpuscular Volume 97.5 fL (80-100); Mean Platelet Volume 9.5 fL (7.4-10.4); Monocytes # (auto) 1.22 K/uL (0.11-0.59); Monocytes % (auto) 12.3 %; Neutrophils # (auto) 6.58 K/uL (1.4-6.5); Neutrophils % (auto) 66.4 %; Platelet Count 139 K/uL (130-400); RDW Coefficient of Variation 15.6 % (11.5-14.5); RDW Standard Deviation 54.7 fL (36.4-46.3); White Blood Count 9.91 K/uL (4.8-10.8)
[2021-02-13] MEDS ORDERED: LABETALOL HCL IV 5 MG/ML 20ML IV STA (17:24)
[2021-02-13 17:30] LABS: INR 1.1 (0.9-1.1); Partial Thromboplastin Ratio 1.1; Partial Thromboplastin Time 27.8 Seconds (21.0-31.0); Prothrombin Time 10.8 Seconds (9.0-12.0)
[2021-02-13 17:35] LABS: Appearance Urine Clear (Clear); Bacteria Urine Automated Negative (Negative); Bilirubin Urine Negative (Negative); Blood Urine Negative (Negative); Cast Urine Automated 0 /lpf (0-5); Color Urine Dark Yellow; Epithelial Cell Urine Auto 0-5 /lpf (0-5); Glucose Urine UA 2+ (Negative); Ketones Urine Negative (Negative); Leukocyte Esterase Urine Negative (Negative); Nitrite Urine Negative (Negative); RBC Urine Automated 0-4 /hpf (0-4); Specific Gravity Urine 1.017 (1.000-1.030); Urobilinogen Urine Negative (Negative); WBC Urine Automated 0 /hpf (0-5)
[2021-02-13 17:36] LABS: Albumin Level 3.6 gm/dl (3.4-5.0); BUN Creatinine Ratio 9.8 (10-20); Bilirubin,Total 0.9 mg/dl (0.2-1); Calcium 9.6 mg/dl (8.5-10.1); Creatinine Clr Calc Pharmacy 5.1 ml/min; Est GFR (African American) 7.2 ml/min; Est GFR (Non-African American) 6.2 ml/min; Globulin 3.8 gm/dl (2.5-4.0); Magnesium 2.7 mg/dl (1.8-2.4); Potassium 5.5 mmol/L (3.5-5.1); Total Protein 7.4 gm/dl (6.4-8.2)
[2021-02-13 17:46] LABS: Protein Urine 3+ (Negative)
--- NOTE | 2021-02-13 17:47 | XRay Report ---
XR chest 1V portable CLINICAL HISTORY: SEPSIS COMPARISON STUDY: Chest radiograph October 01, 2019. FINDINGS: There are median sternotomy wires and a dual lead left subclavian pacemaker. There is no pn eumothorax. There may be small bilateral pleural effusions. Cardiomegaly is unchanged. Interstitial t hickening is noted. There are bilateral lower lung opacities. Patient is mildly rotated. IMPRESSION: 1. Interstitial thickening and bilateral opacities. The findings favor pulmonary edema however an inf ectious process could appear similar. Radiographic follow-up to ensure resolution is recommended. 2. Suspected small bilateral pleural effusions. ACT 112: Negative or not required by law. Electronically signed by: Chase Gage M.D. 02/13/2021 5:46 PM
--- NOTE | 2021-02-13 18:07 | CT Scan Report ---
CT OF THE HEAD WITHOUT CONTRAST CLINICAL HISTORY: HTN, weak, r/o bleed COMPARISON STUDY: Head CT April 18, 2018. CT DOSE: 1067.06 mGycm TECHNIQUE: Helical axial images of the head were obtained without IV contrast. Automated exposure con trol was utilized for the study. A dose lowering technique was utilized adhering to the principles o f ALARA. FINDINGS: No acute intracranial hemorrhage, midline shift or mass effect is present. Ventricular syst em is unremarkable. Basal cisterns are patent. There are no extra-axial collections. White matter hyp odensity suggests small vessel disease. There are no findings to suggest acute dural sinus thrombosis or acute territorial infarct. Left maxillary sinus is partially opacified. This contains mixed atten uation contents. IMPRESSION: No acute intracranial findings. ACT 112: Negative or not required by law. Electronically signed by: Chase Gage M.D. 02/13/2021 6:05 PM
[2021-02-13] MEDS ORDERED: ONDANSETRON INJ 2 MG/ML 2 ML VIAL ONE (18:37)
[2021-02-13] MEDS ORDERED: ONDANSETRON INJ 2 MG/ML 2 ML VIAL IV STA (18:37)
[2021-02-13] MEDS ORDERED: NITROGLYCERIN SL 0.4 MG/TAB TAB SL STA (19:31)
[2021-02-13] MEDS ORDERED: ASPIRIN CHEW 324 MG PO STA (19:51)
[2021-02-13 20:08] LABS: Troponin I 0.644 ng/ml (0-0.045)
[2021-02-13] MEDS ORDERED: LABETALOL HCL IV 5 MG/ML 20ML IV ONE ×2 (20:19→20:22)
--- NOTE | 2021-02-13 20:31 | History & Physical Report ---
Date of Service February 13, 2021 Assessment & Plan (1) Controlled diabetes mellitus with neurologic complication, with long-term current use of insulin: Plan: 86-year-old female with a medical history pertinent for coronary artery disease status post CABG, IDDM, cardiac myxoma, paroxysmal A. fib and sick sinus syndrome status post pacemaker installation presented to the emergency department for complaints of generalized fatigue and shortness of breath. 1. Hypoxia due to likely new congestive heart failure New oxygen requirement of 3 L of nasal cannula, most likely secondary to pulmonary edema and bilateral pleural effusions visualized on chest x-ray No history of heart failure however echo in 2019 showed mild mitral regurgitation With systolic murmur heard throughout precordium most likely worsened regurg or recent progression to heart failure proBNP pending, 40 mg IV Lasix x1 in ER Had not received daily medications today, propranolol/lisinopril/isosorbide mononitrate given in ER TTE ordered Daily weight/monitor I's and O's 2. Elevated troponin Troponin of 0.644 in ER with abnormal EKG In discussion with Dr. Jang, patient started on heparin drip with bolus, trending troponins Sublingual nitro as needed for chest pain Daily EKG Cardiology consult 3. COVID-19 Positive PCR on 02/13 Patient has been vaccinated x2 We will defer steroid treatment at this time given that hypoxia is likely secondary to pulmonary edema rather than COVID-19 Goal negative fluid balance, can consider initiation of steroids if respiratory status does not improve after diuresis Coronary artery disease status post CABG High risk for DC in setting of history and IDDM Continue daily aspirin, sublingual nitro for chest pain Continue ezetimibe daily Hypertension Continue parenteral 120 mg ER every morning, lisinopril 5 mg daily, Takes isosorbide mononitrate alternating 60 and 30 mg every other day. Insulin-dependent diabetes mellitus Patient takes 35 units of Toujeo U3 100 insulin daily as well as sliding scale insulin aspart with meals (15, 18, 25 with each meal respectively limit 60 units/day) Pharmacy glycemic consult placed Last A1c 01/26/2021 5.7 ESRD Continue dialysis Sunday Nephrology consult Anxiety Continue home alprazolam 1 mg p.o. at bedtime as needed DVT ppx: heparin drip FEN/GI: heart healthy, low salt, DM2 diet Bowel regimen: miralax PRN Code Status: Full Code Dispo: PCU (2) S/P CABG (coronary artery bypass graft): (3) Paroxysmal atrial fibrillation: (4) Presence of cardiac pacemaker: (5) ESRD (end stage renal disease) on dialysis: (6) Hyperlipidemia: (7) Fatigue: (8) Shortness of breath: (9) Hypertension: (10) Hypoxia: (11) Elevated troponin: History of Present Illness Primary Care Provider: Sahra Davis MD 86-year-old female with a past medical history of CAD s/p CABG, IDDM, ESRD, paroxysmal A. fib status post pacemaker placement, who presents to emergency department for global weakness and fatigue. She states that this been going on for about a day. She denies any recent falls or memorable events to it caused her fatigue. She does note that 6 days ago when she was at dialysis she had a "angina attack" that she was given a sublingual nitro for that treated the episode. She stated that the pain only lasted for a few minutes. She did not go to the hospital or get any follow-up cardiac care after that event.She currently denies any chest pressure or chest pain or trouble breathing. She does attest to chills but denies any recent fevers. She has no myalgias or joint pain. She notes that she does have swelling in her legs that is normal she has not noticed it getting any worse. She denies any abdominal pain, pain with taking a deep breath. She is coughing. She has not been able to take her medications today and attends dialysis on Sunday. Allergies Allergy/AdvReac Type Severity Reaction Status Date / Time carbamazepine Allergy Intermediate RASH Verified 02/13/21 17:45 erythromycin base Allergy Intermediate RASH Verified 02/13/21 17:45 carvedilol AdvReac Intermediate DIZZINESS, Verified 02/13/21 17:45 VISUAL DISTURBANCES Fivbbml-SYK-ZuN Reductase AdvReac Intermediate MUSCLE Verified 02/13/21 17:45 Inhibitor ACHES [Icmjdfh-Xje-Lzh Reductase Inhibitor] Home Medications Medication Instructions Recorded Confirmed Type clobetasol 0.05 % topical ointment 1 applic TOPICAL BID PRN 01/13/19 02/13/21 History BD Ultra-Fine Micro Pen Needle 32 #400 ea NS 05/21/19 10/12/20 Rx gauge x 1/4" (pen needle, diabetic) cholecalciferol (vitamin D3) 25 1,000 unit PO QAM 06/08/19 02/13/21 History mcg (1,000 unit) tablet (Vitamin D3) blood sugar diagnostic (OneTouch #400 ea 02/25/20 10/12/20 Rx Verio test strips) digoxin 125 mcg (0.125 mg) tablet 125 mcg PO 3XWK #39 tab 06/28/20 02/13/21 Rx (Digox) isosorbide mononitrate 30 mg 30 mg PO 3XWK #39 tab 06/28/20 02/13/21 Rx tablet,extended release 24 hr mupirocin 2 % topical ointment 1 applic TOPICAL BID #15 g 07/09/20 02/13/21 Rx lisinopril 5 mg tablet 5 mg PO DAILY #30 tab 08/13/20 02/13/21 Rx calcium acetate(phosphat bind) 667 mg PO TIDM 08/19/20 02/13/21 History (Phoslyra) propranolol 120 mg capsule,24 120 mg PO QAM #90 cap 08/19/20 02/13/21 Rx hr,extended release ezetimibe 10 mg tablet (Zetia) 10 mg PO DAILY #90 tab 09/08/20 02/13/21 Rx Novolog Flexpen U-100 Insulin 100 See Rx Instructions SQ .COMPLEX 10/07/20 02/13/21 Rx unit/mL (3 mL) subcutaneous #45 ml NS (insulin aspart U-100) alprazolam 1 mg tablet 1 mg PO HS PRN #30 tab 12/09/20 02/13/21 Rx insulin glargine U-300 conc 300 35 unit SUBCUT DAILY ml 01/11/21 02/13/21 History unit/mL (1.5 mL) subcutaneous pen (Toujeo SoloStar U-300 Insulin) nitroglycerin 0.4 mg sublingual 0.4 mg SUBLINGUAL Q5M PRN #25 tab 02/07/21 02/13/21 Rx tablet aspirin 81 mg tablet,delayed 81 mg PO DAILY 02/13/21 02/13/21 History release isosorbide mononitrate 60 mg 60 mg PO 4XWK 02/13/21 02/13/21 History tablet,extended release 24 hr vit B,C-folic ac 800 mcg-zinc 12.5 1 tab PO DAILY 02/13/21 02/13/21 History mg-selen-D3 2,000 unit-vit E tablet (RenaPlex-D) Past Med/Surg History Medical History Anxiety C. difficile colitis Coronary artery disease Diabetes mellitus (11/04/12) Dysphagia ESRD (end stage renal disease) on dialysis Essential tremor Hyperlipidemia (11/04/12) Hypertension Myxoma of heart Presence of cardiac pacemaker Sick sinus syndrome Skin cancer Surgical History AVF (arteriovenous fistula) S/P CABG (coronary artery bypass graft) S/P cardiac pacemaker procedure S/P cataract surgery S/P colonoscopy S/P hemorrhoidectomy S/P hysterectomy S/P laparoscopic cholecystectomy Family History Other No pertinent family history Denies family history of Ovarian cancer Prostate cancer No family history of adverse response to anesthesia Myocardial infarction Breast cancer Colorectal cancer Stroke Social History Smoking Status: Never smoker Second Hand Exposure: No; Hx Alcohol Use: No Hx Substance Use: No Preferred Language: Albanian Communication Ability: Effective Visual Impairment: No Limitations 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 Ability: Normal 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 Beliefs That Will Affect Care: None marital status: / Current Living Situation: Alone Current Living Situation Comment: in 2 story farmhouse, 12 steps, lives on main floor current occupational status: retired Feels Safe at Home: Yes Childhood Exposure to Second-Hand Smoke: No Seatbelt Use: always Assistive Devices: Denture - Upper, Denture - Lower and Glasses Review of Systems Constitutional: + chills; no fever, no sweats and no fatigue Eyes: no blind spots and no discharge Ear, Nose, Mouth, Throat: no hearing loss and no nasal congestion Respiratory: + cough; no dyspnea Cardiovascular: no chest pain, no dyspnea on exertion and no edema Gastrointestinal: no abdominal pain, no nausea, no vomiting, no constipation, no diarrhea/loose stools and no blood in stools Genitourinary: no dysuria Musculoskeletal: no joint pain and no myalgia Neurologic: no tingling, no numbness and no headache(s) Endocrine: no fatigue Physical Exam Constitutional: + ill appearing, + frail appearing and + lethargic; no acute distress Respiratory: + cough; + not able to speak in complete sentence audible upper airway breath sounds, bilateral coarse breath sounds, reduced breath sounds at bases bilaterally Cardiovascular: regular rate and rhythm. 3/6 systolic ejection murmur heard throughout the precordium, radiating to axilla and carotids 2+ PT pulses Gastrointestinal (Abdomen): Inspection/Auscultation: abdomen normal to inspection; abdomen not distended Percussion/Palpation: + abdomen tender and abdomen soft; no guarding and abdomen not rigid Results & Data Results & Data ([facility]) Vital Signs (Past 12 Hours) Vital Signs Temp Pulse Resp BP BP Pulse Ox 02/13/21 20:00 60 20 195/59 H 98 02/13/21 19:30 60 19 188/62 H 98 02/13/21 19:27 25 H 89 L 02/13/21 19:00 60 23 89 L 02/13/21 18:30 60 33 H 190/63 H 96 02/13/21 18:08 95 02/13/21 18:00 61 22 197/64 H 94 02/13/21 17:30 60 20 96 02/13/21 17:00 60 20 93 02/13/21 16:55 220/76 H 02/13/21 16:36 73 22 95 02/13/21 16:34 37.5 C 14 225/81 H 95 Laboratory Results Laboratory Results WBC 9.91 K/uL (4.8-10.8) 02/13/21 16:44 RBC 3.60 M/uL (4.2-5.4) L 02/13/21 16:44 Hgb 11.9 g/dL (12.0-16.0) L 02/13/21 16:44 Hct 35.1 % (37-47) L 02/13/21 16:44 MCV 97.5 fL (80-100) 02/13/21 16:44 MCH 33.1 pg (25-34) 02/13/21 16:44 MCHC 33.9 g/dL (32-36) 02/13/21 16:44 RDW Std Deviation 54.7 fL (36.4-46.3) H 02/13/21 16:44 RDW Coeff of Bjorn 15.6 % (11.5-14.5) H 02/13/21 16:44 Plt Count 139 K/uL (130-400) 02/13/21 16:44 MPV 9.5 fL (7.4-10.4) 02/13/21 16:44 Immature Gran % (Auto) 0.1 % 02/13/21 16:44 Neut % (Auto) 66.4 % 02/13/21 16:44 Lymph % (Auto) 20.0 % 02/13/21 16:44 [place] % (Auto) 12.3 % 02/13/21 16:44 Eos % (Auto) 0.7 % 02/13/21 16:44 Baso % (Auto) 0.5 % 02/13/21 16:44 Neut # (Auto) 6.58 K/uL (1.4-6.5) H 02/13/21 16:44 Lymph # (Auto) 1.98 K/uL (1.2-3.4) 02/13/21 16:44 [place] # (Auto) 1.22 K/uL (0.11-0.59) H 02/13/21 16:44 Eos # (Auto) 0.07 K/uL (0-0.5) 02/13/21 16:44 Baso # (Auto) 0.05 K/uL (0-0.2) 02/13/21 16:44 Immature Gran # (Auto) 0.01 K/uL (0.00-0.02) 02/13/21 16:44 PT 10.8 Seconds (9.0-12.0) 02/13/21 16:44 INR 1.1 (0.9-1.1) 02/13/21 16:44 APTT 27.8 Seconds (21.0-31.0) 02/13/21 16:44 PTT Ratio 1.1 02/13/21 16:44 Sodium 133 mmol/L (136-145) L 02/13/21 16:44 Potassium 5.5 mmol/L (3.5-5.1) H 02/13/21 16:44 Chloride 96 mmol/L (98-107) L 02/13/21 16:44 Carbon Dioxide 25 mmol/L (21-32) 02/13/21 16:44 Anion Gap 12.0 (3-11) H 02/13/21 16:44 BUN 55 mg/dl (7-18) H 02/13/21 16:44 Creatinine 5.67 mg/dl (0.6-1.2) H* 02/13/21 16:44 Est Cr Clr Drug Dosing 5.1 ml/min 02/13/21 16:44 Est GFR ( Amer) 7.2 ml/min 02/13/21 16:44 Est GFR (Non-Af Amer) 6.2 ml/min 02/13/21 16:44 BUN/Creatinine Ratio 9.8 (10-20) L 02/13/21 16:44 Glucose 212 mg/dl (70-99) H 02/13/21 16:44 Lactate 1.4 mmol/L (0.4-2.0) 02/13/21 17:26 Calcium 9.6 mg/dl (8.5-10.1) 02/13/21 16:44 Magnesium 2.7 mg/dl (1.8-2.4) H 02/13/21 16:44 Total Bilirubin 0.9 mg/dl (0.2-1) 02/13/21 16:44 AST 29 U/L (15-37) 02/13/21 16:44 ALT 27 U/L (12-78) 02/13/21 16:44 Alkaline Phosphatase 47 U/L (45-117) 02/13/21 16:44 Troponin I 0.644 ng/ml (0-0.045) H* 02/13/21 16:44 Total Protein 7.4 gm/dl (6.4-8.2) 02/13/21 16:44 Albumin 3.6 gm/dl (3.4-5.0) 02/13/21 16:44 Globulin 3.8 gm/dl (2.5-4.0) 02/13/21 16:44 Albumin/Globulin Ratio 1.0 (0.9-2) 02/13/21 16:44 Procalcitonin 0.11 ng/ml (0-0.5) 02/13/21 16:44 Urine Color Dark Yellow 02/13/21 16:44 Urine Appearance Clear (Clear) 02/13/21 16:44 Urine pH 8.0 (4.5-7.5) H 02/13/21 16:44 Ur Specific [place] 1.017 (1.000-1.030) 02/13/21 16:44 Urine Protein 3+ (Negative) H 02/13/21 16:44 Urine Glucose (UA) 2+ (Negative) H 02/13/21 16:44 Urine Ketones Negative (Negative) 02/13/21 16:44 Urine Blood Negative (Negative) 02/13/21 16:44 Urine Nitrite Negative (Negative) 02/13/21 16:44 Urine Bilirubin Negative (Negative) 02/13/21 16:44 Urine Urobilinogen Negative (Negative) 02/13/21 16:44 Ur Leukocyte Esterase Negative (Negative) 02/13/21 16:44 Urine WBC (Auto) 0 /hpf (0-5) 02/13/21 16:44 Urine RBC (Auto) 0-4 /hpf (0-4) 02/13/21 16:44 U Hyaline Cast (Auto) 0 /lpf (0-5) 02/13/21 16:44 U Epithel Cells (Auto) 0-5 /lpf (0-5) 02/13/21 16:44 Urine Bacteria (Auto) Negative (Negative) 02/13/21 16:44 COVID-19 Eval Order Covid19 at [facility] 02/13/21 16:44 SARS-CoV-2 (PCR) POSITIVE (Negative) A* 02/13/21 16:44 Impressions Chest X-Ray 02/13/21 17:08 XR chest 1V portable CLINICAL HISTORY: SEPSIS COMPARISON STUDY: Chest radiograph October 01, 2019. FINDINGS: There are median sternotomy wires and a dual lead left subclavian pacemaker. There is no pneumothorax. There may be small bilateral pleural effusions. Cardiomegaly is unchanged. Interstitial thickening is noted. There are bilateral lower lung opacities. Patient is mildly rotated. IMPRESSION: 1. Interstitial thickening and bilateral opacities. The findings favor pulmonary edema however an infectious process could appear similar. Radiographic follow-up to ensure resolution is recommended. 2. Suspected small bilateral pleural effusions. ACT 112: Negative or not required by law. Electronically signed by: Chase Gage M.D. 02/13/2021 5:[address] 02/13/21 17:25 CT OF THE HEAD WITHOUT CONTRAST CLINICAL HISTORY: HTN, weak, r/o bleed COMPARISON STUDY: Head CT April 18, 2018. CT DOSE: 1067.06 mGycm TECHNIQUE: Helical axial images of the head were obtained without IV contrast. Automated exposure control was utilized for the study. A dose lowering technique was utilized adhering to the principles of ALARA. FINDINGS: No acute intracranial hemorrhage, midline shift or mass effect is present. Ventricular system is unremarkable. Basal cisterns are patent. There are no extra-axial collections. White matter hypodensity suggests small vessel disease. There are no findings to suggest acute dural sinus thrombosis or acute territorial infarct. Left maxillary sinus is partially opacified. This contains mixed attenuation contents. IMPRESSION: No acute intracranial findings. ACT 112: Negative or not required by law. Electronically signed by: Chase Gage M.D. 02/13/2021 6:05 PM ECG Additional Comments: Regular rate, atrially paced at [address] segment depressions in lead 1, avL, V6 with ST segment elevations in III, AvR. QRS widening duration 164ms Supervising Physician Co-Signing Physician Notes Patient seen and examined, chart reviewed, case discussed with Dr. Grace and I agree with her assessment and plan as documented above. In brief, patient is an 86yo female with history of CAD s/p CABG in 1992, ESRD on HD q M/W/, DM, HTN, HLP, sick sinus syndrome s/p dual chamber pacer presenting with 2 days of generalized weakness and fatigue as well as cough productive for white phlegm. Patient denies fever, chills, CP, palpitations, abdominal pain, nausea, vomiting, diarrhea or constipation. She did have a brief episode of chest pain last week which resolved with Nitro. On exam she is ill in appearance, weak Skin - intact, no rash/lesions HEENT - NC/AT, PERRL, MMM, neck supple Heart - +S1/S2, regular, blowing holosystolic murmur across precordium to axilla and carotids Lungs - +cough, coarse breath sounds bilaterally with diminished breath sounds in bases, upper airway congestion Abd - +BS, soft, NT/ND Ext - warm, palpable pulses Labs and images reviewed - Troponin = 0.64 EKG with significant changes when compared to prior - . Study shows atrial paced rhythm with prolonged AV conduction. WP=377, YCK=918, ZMh=753. Deepened ST depressions in lateral I and avL as well as elevations in III, V1 and aVR Assessment/Plan -EKG changes, elevated troponin. Patient does endorse a brief episode of chest pain last week. Presently no chest pain. Troponin elevated in setting of ESRD. Case discussed between ER attending and Cardiology - will initiate treatment with heparin for possible NSTEMI, trend troponin. Repeat echo in AM and daily EKG -SOB - markedly elevated BNP - Lasix 40mg IV given. Monitor UOP, electroltyes. Repeat lasix dosing as needed -Covid-19 - patient is fully vaccinated against Covid-19. Hypoxic on arrival possibly secondary to CHF more so than Covid. Will diurese and reassess pulmonary status. Maintain isolation precautions -CAD - Continue ASA, Lisinopril, Propranolol, Zetia -ESRD - for HD M/W/F - Nephrology consultation appreciated. Continue PhosLo -DM - glycemic management consultation Remainder of plan as described above Resident Activity Tracking Resident Involvement: Resident Care Provided Care Provided: Adult Hospital Medicine (1) Hypertension Hypertension type: renovascular hypertension Qualified Code(s): I15.0 - R enovascular hypertension
[2021-02-13] MEDS ORDERED: PROPRANOLOL HCL 60 MG LA CAP PO STA (20:38)
[2021-02-13] MEDS ORDERED: lisinopril 5 MG TAB PO ONE (20:38)
[2021-02-13] MEDS ORDERED: HEPARIN SOD (PORCINE) 1000 UNIT/ML IV ONE (20:40)
[2021-02-13] MEDS ORDERED: ISOSORBIDE MONO EXTENDED REL 30 MG TABCR PO ONE (20:43)
[2021-02-13] MEDS ORDERED: Heparin IV Adult Wt-Based Standard WITH Bolus Protocol IV SCH (20:49)
[2021-02-13] MEDS ORDERED: FUROSEMIDE 40 MG/4 ML VIAL IV ONE ×2 (21:02→21:30)
[2021-02-13 21:05] LABS: NT Pro B Type Natriuretic Pept > 35000 pg/ml (0-1800)
[2021-02-13] MEDS: HEPARIN SODIUM/DEXTROSE 25,000 UNITS/500 ML BAG IV SCH (21:13)
--- NOTE | 2021-02-13 22:00 | Billing Data ---
Date of Service February 13, 2021 Coding Level of Care Code 63809 Initial Inpt Care Lvl 3
[2021-02-13] MEDS ORDERED: ALPRAZolam 0.5 MG TABLET PO PRN (22:44)
[2021-02-13] MEDS ORDERED: ONDANSETRON INJ 2 MG/ML 2 ML VIAL IV PRN (22:44)
[2021-02-13] MEDS ORDERED: NITROGLYCERIN SL 0.4 MG/TAB TAB SL PRN (22:44)
[2021-02-13] MEDS ORDERED: PHARMACY GLYCEMIC MGMT CONSULT PRN (22:44)
[2021-02-13] MEDS ORDERED: CLOBETASOL PROPIONATE 0.05% OINT 15 GM TUBE EXT PRN (23:03)
[2021-02-13] MEDS ORDERED: GLUCOSE 10 TABS/TUBE PO PRN (23:30)
[2021-02-13] MEDS ORDERED: DEXTROSE 50% 50 ML SYRINGE IV PRN (23:30)
[2021-02-13] MEDS ORDERED: INSULIN GLARGINE SOLOSTAR 100 UNITS/ML 3 ML PEN SC SCH (23:30)
[2021-02-13] MEDS ORDERED: GLUCAGON FOR INJ 1 MG VIAL IM PRN (23:30)
[2021-02-13] MEDS ORDERED: CARBOHYDRATES FOR HYPOGLYCEMIA PO PRN (23:30)
[2021-02-13] MEDS ORDERED: GLUCOSE 40% GEL 15 GM TUBE PO PRN (23:30)
[2021-02-14] MEDS: INSULIN ASPART 100 UNITS/ML 3 ML PEN SC SCH ×5 (00:09→21:15)
[2021-02-14] MEDS ORDERED: bisacodyL 10 MG SUPP PR PRN (02:51)
[2021-02-14 03:52] LABS: Basophils # (auto) 0.04 K/uL (0-0.2); Basophils % (auto) 0.5 %; Eosinophils # (auto) 0.06 K/uL (0-0.5); Eosinophils % (auto) 0.7 %; Hematocrit (blood only) 32.6 % (37-47); Hemoglobin 10.5 g/dL (12.0-16.0); Immature Granulocytes # (auto) 0.03 K/uL (0.00-0.02); Immature Granulocytes % (auto) 0.4 %; Lymphocytes # (auto) 2.44 K/uL (1.2-3.4); Lymphocytes % (auto) 29.7 %; Mean Corpuscular Hemoglobin 32.4 pg (25-34); Mean Corpuscular Hgb Conc 32.2 g/dL (32-36); Mean Corpuscular Volume 100.6 fL (80-100); Mean Platelet Volume 9.4 fL (7.4-10.4); Monocytes # (auto) 1.03 K/uL (0.11-0.59); Monocytes % (auto) 12.5 %; Neutrophils # (auto) 4.62 K/uL (1.4-6.5); Neutrophils % (auto) 56.2 %; Platelet Count 125 K/uL (130-400); RDW Coefficient of Variation 15.7 % (11.5-14.5); RDW Standard Deviation 57.3 fL (36.4-46.3); Red Blood Count 3.24 M/uL (4.2-5.4); White Blood Count 8.22 K/uL (4.8-10.8)
[2021-02-14 04:17] LABS: Partial Thromboplastin Ratio > 5.3
[2021-02-14 04:25] LABS: Albumin Globulin Ratio 0.9 (0.9-2); Albumin Level 3.2 gm/dl (3.4-5.0); Bilirubin,Total 0.8 mg/dl (0.2-1); Calcium 8.8 mg/dl (8.5-10.1); Creatinine Clr Calc Pharmacy 5.1 ml/min; Est GFR (African American) 6.9 ml/min; Globulin 3.6 gm/dl (2.5-4.0); Total Protein 6.8 gm/dl (6.4-8.2); Troponin I 1.22 ng/ml (0-0.045)
[2021-02-14 04:33] LABS: Partial Thromboplastin Time > 139.0 Seconds (21.0-31.0)
[2021-02-14 05:57] LABS: Partial Thromboplastin Ratio > 5.3
[2021-02-14 05:59] LABS: Partial Thromboplastin Time > 139.0 Seconds (21.0-31.0)
[2021-02-14] MEDS ORDERED: hydrALAZINE HCL 20 MG/ML VIAL IV ONE (06:00)
[2021-02-14] MEDS ORDERED: FUROSEMIDE 40 MG/4 ML VIAL IV ONE (06:17)
--- NOTE | 2021-02-14 08:38 | Cardiology Consultation ---
Date of Consultation February 14, 2021 Assessment & Plan (1) Elevated troponin: (2) Hypoxia: (3) Presence of cardiac pacemaker: (4) Paroxysmal atrial fibrillation: 1. Elevated troponin: Her troponin is slightly elevated and was climbing after admission, part of this is probably her end-stage renal disease but it is more elevated than in the recent past. She does have known coronary artery disease, she did come in with hypoxia and she is not having chest discomfort. It may well be that she has had progression of disease however there is little evidence that she is having an acute ischemic event. Her left ventricular function is preserved although possibly slightly reduced in a global manner compared to prior echocardiograms. I discussed the case with Dr. Jang and we feel it is better to wait, it is not likely that we would find something which would be easily treated with intervention and there is minimal indication to proceed. If things change we can always take her to the [facility]. 2. Hypoxia: It seems likely that her hypoxia is due to the COVID-19, there does not seem to be any evidence for congestive heart failure in her left ventricular function has not declined the point where that is likely to be a cause. 3. Pacemaker: I did not evaluate her pacemaker but on telemetry it appears to be working well and she was recently evaluated in the office. 4. Paroxysmal atrial fibrillation: She has had atrial fibrillation in the past but it has been sometime and there is no evidence of recurrence at this time. I would continue to hold anticoagulation. 5. Hypertension: Her blood pressure has been quite elevated this admission. History of Present Illness Reason for Consultation: SOB, chest pain Attending Physician: Parminder Nur, History of Present Illness This is an 86-year-old woman who has a history of coronary artery disease which includes coronary bypass surgery in 1992 as well as an anginal equivalent which is dyspnea on exertion. She has hypercholesterolemia but has been intolerant to statins so has been maintained on Zetia. She also has a history of sinus node dysfunction and had a dual-chamber pacemaker implanted on 10/29/2008. She also has a history of diabetes, chronic renal insufficiency (on hemodialysis Sunday and Sunday) and hypertension. 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 It was calcified, suggesting it was old, but it was unusual. Transesophageal echocardiography did not yield any additional clues. We therefore elected to watch it as it was unlikely to be recent and would require open heart surgery for removal of which she was not terribly interested in. This has not changed since first identified in 2012. Her pacemaker reached replacement time due to battery depletion and was replaced on February 11, 2019. Up to that point atrial fibrillation or flutter had not been identified. She presented to the emergency room on October 01, 2019 with palpitations while on dialysis and her heart rate was noted to be in excess of 120 bpm. Device interrogation showed that she had paroxysmal atrial flutter or fibrillation with rapid heart rate. She was started on Eliquis 2.5 mg twice a day on October 16, 2019, for heart rate control diltiazem CD 120 mg daily was added. We also discontinued her isosorbide mononitrate at that time. She noticed significant leg swelling after starting diltiazem therefore I discontinued that and added digoxin to her regimen on October 30, 2019. Interestingly her atrial fibrillation has been confined to a 1-1/2-month period starting mid September 2019 and ending around the end of October 2019. She had none before and has had none since. She had episodes as long as 8 hours in duration during that time. She had been having difficulty with nosebleeds. She did go to the emergency room for it on 2 occasions, July 06, 2020 and July 13, 2020. She has subsequently had cauterization by ENT. Her anticoagulation has been on hold and we are watching her atrial fibrillation burden using the pacemaker diagnostics. She has not had any nosebleeds since but is concerned about it. She presented to the hospital with fatigue and dyspnea, was found to be hypoxic and to be positive for COVID-19. She has not been having difficulty with chest discomfort however was noted to have an elevated troponin however the level was only 0.644 on presentation and had been 0.652 in September 2019 although essentially undetectable prior to that. During her stay however the level has risen, 5 hours after her initial measurement her troponin was 0.859 and about 8 hours after that it was 1.22. Additionally her electrocardiogram shows quite marked lateral T wave abnormalities with ST depression. These are more pronounced than what was observed in the past. Allergies Allergy/AdvReac Type Severity Reaction Status Date / Time carbamazepine Allergy Intermediate RASH Verified 02/13/21 17:45 erythromycin base Allergy Intermediate RASH Verified 02/13/21 17:45 carvedilol AdvReac Intermediate DIZZINESS, Verified 02/13/21 17:45 VISUAL DISTURBANCES Ikrqmfp-QPL-DtX Reductase AdvReac Intermediate MUSCLE Verified 02/13/21 17:45 Inhibitor ACHES [Tbljzek-Ssq-Hmt Reductase Inhibitor] Home Medications Medication Instructions Recorded Confirmed Type clobetasol 0.05 % topical ointment 1 applic TOPICAL BID PRN 01/13/19 02/13/21 History BD Ultra-Fine Micro Pen Needle 32 #400 ea NS 05/21/19 10/12/20 Rx gauge x 1/4" (pen needle, diabetic) cholecalciferol (vitamin D3) 25 1,000 unit PO QAM 06/08/19 02/13/21 History mcg (1,000 unit) tablet (Vitamin D3) blood sugar diagnostic (OneTouch #400 ea 02/25/20 10/12/20 Rx Verio test strips) digoxin 125 mcg (0.125 mg) tablet 125 mcg PO 3XWK #39 tab 06/28/20 02/13/21 Rx (Digox) isosorbide mononitrate 30 mg 30 mg PO 3XWK #39 tab 06/28/20 02/13/21 Rx tablet,extended release 24 hr mupirocin 2 % topical ointment 1 applic TOPICAL BID #15 g 07/09/20 02/13/21 Rx lisinopril 5 mg tablet 5 mg PO DAILY #30 tab 08/13/20 02/13/21 Rx calcium acetate(phosphat bind) 667 mg PO TIDM 08/19/20 02/13/21 History (Phoslyra) propranolol 120 mg capsule,24 120 mg PO QAM #90 cap 08/19/20 02/13/21 Rx hr,extended release ezetimibe 10 mg tablet (Zetia) 10 mg PO DAILY #90 tab 09/08/20 02/13/21 Rx Novolog Flexpen U-100 Insulin 100 See Rx Instructions SQ .COMPLEX 10/07/20 02/13/21 Rx unit/mL (3 mL) subcutaneous #45 ml NS (insulin aspart U-100) alprazolam 1 mg tablet 1 mg PO HS PRN #30 tab 12/09/20 02/13/21 Rx insulin glargine U-300 conc 300 35 unit SUBCUT DAILY ml 01/11/21 02/13/21 History unit/mL (1.5 mL) subcutaneous pen (Toujeo SoloStar U-300 Insulin) nitroglycerin 0.4 mg sublingual 0.4 mg SUBLINGUAL Q5M PRN #25 tab 02/07/21 02/13/21 Rx tablet aspirin 81 mg tablet,delayed 81 mg PO DAILY 02/13/21 02/13/21 History release isosorbide mononitrate 60 mg 60 mg PO 4XWK 02/13/21 02/13/21 History tablet,extended release 24 hr vit B,C-folic ac 800 mcg-zinc 12.5 1 tab PO DAILY 02/13/21 02/13/21 History mg-selen-D3 2,000 unit-vit E tablet (RenaPlex-D) Patient History Medical History Anxiety C. difficile colitis PAST HISTORY Coronary artery disease Diabetes mellitus (11/04/12) IDDM Dysphagia REASON FOR 08/14/2019 EGD ESRD (end stage renal disease) on dialysis MWF FOR DIALYSIS. RIGHT AVF. STARTED DIALYSIS JUNE OF 2017. Essential tremor Hyperlipidemia (11/04/12) Hypertension Myxoma of heart Presence of cardiac pacemaker Dual-chamber Sick sinus syndrome Skin cancer Surgical History AVF (arteriovenous fistula) RIGHT S/P CABG (coronary artery bypass graft) S/P cardiac pacemaker procedure PLACED IN 2008. PACEMAKER BATTERY REPLACED WITHIN THE LAST YEAR. LAST PACER CHECK WITHIN THE LAST [address] BEATTY. NO RECENT CP OR SOB. S/P cataract surgery S/P colonoscopy S/P hemorrhoidectomy S/P hysterectomy S/P laparoscopic cholecystectomy Family History Other No pertinent family history Denies family history of Ovarian cancer Prostate cancer No family history of adverse response to anesthesia Myocardial infarction Breast cancer Colorectal cancer Stroke Social History Smoking Status: Never smoker Second Hand Exposure: No; Hx Alcohol Use: No Hx Substance Use: No Preferred Language: Uzbek Communication Ability: Effective Visual Impairment: No Limitations Hearing Ability: Normal Puppet Master Required: No Beliefs That Will Affect Care: None marital status: / Current Living Situation: Alone Current Living Situation Comment: in 2 story césar, 12 steps, lives on main floor current occupational status: retired Feels Safe at Home: Yes Childhood Exposure to Second-Hand Smoke: No Seatbelt Use: always Assistive Devices: Walker Physical Exam Physical Exam: Physical exam as per the primary service, I did not examine the patient as she is in the Covid unit. Results & Data ([facility]) Vital Signs (Past 12 Hours) Vital Signs Temp Pulse Pulse Resp BP BP Pulse Ox 02/14/21 07:25 37.3 C 60 153/64 H 100 02/14/21 05:49 174/61 H 02/14/21 03:14 36.6 C 60 24 173/63 H 100 02/13/21 23:59 60 02/13/21 23:05 36.7 C 60 20 177/61 H 100 02/13/21 22:44 02/13/21 21:54 60 25 H 170/75 H 100 02/13/21 21:30 59 L 26 H 184/53 H 100 02/13/21 21:15 181/75 H 02/13/21 21:00 60 20 119/57 L 100 Pulse Ox 02/14/21 07:25 02/14/21 05:49 02/14/21 03:14 02/13/21 23:59 02/13/21 23:05 02/13/21 22:44 100 02/13/21 21:54 02/13/21 21:30 02/13/21 21:15 02/13/21 21:00 Laboratory Results Coagulation 02/14/21 02/14/21 02/14/21 Range/Units 08:30 19:03 21:19 APTT 57.5 H* > 139.0 H* 112.0 H* (21.0-31.0) Seconds 02/14/21 02/15/21 Range/Units 23:33 06:36 APTT 70.9 H* 51.7 H* (21.0-31.0) Seconds Intake and Output 02/14/21 02/15/21 02/15/21 22:59 06:59 14:59 Intake Total 128.483 / 228.483 100 / 228.483 55.2 / 55.2 Output Total 1 / 158 151 / 158 Balance 127.483 / 70.483 -51 / 70.483 55.2 / 55.2 Intake: IV 128.483 / 128.483 0 / 128.483 55.2 / 55.2 Heparin Sodium/Dextrose 25,000 128.483 / 128.483 0 / 128.483 55.2 / 55.2 units In 500 ml @ 400 UNITS/HR 8 mls/hr IV .Q24H [facility] Rx#: [id number] Oral 100 / 100 Output: Urine 150 / 150 # Bowel Movements Other: Hemodialysis Ultrafiltration 1,845 Amount Other Intake Source Sips Weight 57 kg 55.1 kg Weight Measurement Method Built in [facility] Diagnostic Findings Telemetry: Predominantly pacing throughout, rare intrinsic conduction PG Care Time/CCT Total # of Minutes Spent Total Time Spent with Patient: Total time spent is greater than 50% in coordination of care (as documented) at patient's floor/unit and/or counseling patient: Coding Level of Care Code 62890 Initial Inpt Care Lvl 3 Diagnoses Elevated troponin R77.8 Hypoxia R09.02 Presence of cardiac pacemaker Z95.0 Paroxysmal atrial fibrillation I48.0
[2021-02-14] MEDS: PROPRANOLOL HCL 60 MG LA CAP PO SCH (08:46)
[2021-02-14] MEDS: lisinopril 5 MG TAB PO SCH (08:46)
[2021-02-14] MEDS: CALCIUM ACETATE 667 MG CAP/TAB PO SCH ×3 (08:47→21:15)
[2021-02-14] MEDS: ISOSORBIDE MONO EXTENDED REL 30 MG TABCR PO SCH (08:47)
[2021-02-14] MEDS: EZETIMIBE 10 MG TABLET PO SCH (08:47)
[2021-02-14] MEDS: ASPIRIN 81 MG ECTAB PO SCH (08:47)
[2021-02-14] MEDS: POLYETHYLENE (MIRALAX) 17 GM PACK PO SCH (08:51)
[2021-02-14 09:13] LABS: Partial Thromboplastin Ratio 2.2
[2021-02-14 09:25] LABS: Partial Thromboplastin Time 57.5 Seconds (21.0-31.0)
--- NOTE | 2021-02-14 10:32 | Nephrology Consultation ---
Date of Consultation February 14, 2021 Assessment & Plan (1) ESRD (end stage renal disease) on dialysis: (2) Hypertension: (3) Diabetes mellitus: (4) Hyperlipidemia: (5) Hypoxia: (6) Elevated troponin: End-stage renal disease, on hemodialysis, admitted with COVID pneumonia. She was also noted to have mildly elevated troponin although no chest pain or shortness of breath. She was vaccinated for COVID before. Has been having regular dialysis, last dialysis was Sunday. Currently volume status, electrolyte acceptable. --Dialysis today as her regular schedule, will try to do 2 L UF, although she is close to her dry weight however she may have lost some weight over the weekend with poor p.o. intake. -- Dose medications for GFR less than 10 -- continue on phosphate binder and renal vitamin -- start on boost nutritional supplement 1 can 3 times a day will follow Thank you for allowing me to participate in your patient's care. It was a pleasure to see Nava. History of Present Illness Reason for Consultation: End-stage renal disease, on hemodialysis, admitted with COVID pneumonia. Attending Physician: Parminder Nur DO History of Present Illness Nava Dominguze is a 86-year-old female with past medical history significant for end-stage renal disease on hemodialysis, hypertension, coronary artery disease status post CABG admitted to the hospital with COVID pneumonia. Nephrology consult requested for management of hemodialysis while inpatient. EMR records were reviewed in detail during visit. Nava started having cough and generalized fatigue and weakness starting Sunday evening. Over the weekend she continued to decline and became extremely weak and came to the ER for further evaluation. She was found to be hypoxic on room air with oxygen saturation 89%. She tested positive for COVID pneumonia. EKG with no acute changes, chest x-ray showed possible pulmonary congestion versus infiltrate and mild pleural effusion. Troponin was mildly elevated which should continue to increase last troponin was 1.2. She denied any significant shortness of breath or chest pain. She has been on 2 L nasal cannula oxygen. She was vaccinated for COVID. Her daughter and granddaughter visited her last Sunday who also tested positive for COVID and it seems like daily got the infection from there grand kids. End-stage renal disease secondary to cardiorenal syndrome, on hemodialysis Sunday, Sunday, Sunday, her EDW 58. kg. had dialysis last Ruf[place], uneventful. Her blood pressure generally high initially which improves with UF. has coronary artery disease status post CABG. Currently is she continues to feel extremely fatigued, denies any chest pain or shortness of breath. Appetite has been poor but she can smell and taste food. Allergies Allergy/AdvReac Type Severity Reaction Status Date / Time carbamazepine Allergy Intermediate RASH Verified 02/13/21 17:45 erythromycin base Allergy Intermediate RASH Verified 02/13/21 17:45 carvedilol AdvReac Intermediate DIZZINESS, Verified 02/13/21 17:45 VISUAL DISTURBANCES Jiatvqc-FRS-HjV Reductase AdvReac Intermediate MUSCLE Verified 02/13/21 17:45 Inhibitor ACHES [Iepyfqs-Wng-Pwb Reductase Inhibitor] Home Medications Medication Instructions Recorded Confirmed Type clobetasol 0.05 % topical ointment 1 applic TOPICAL BID PRN 01/13/19 02/13/21 History BD Ultra-Fine Micro Pen Needle 32 #400 ea NS 05/21/19 10/12/20 Rx gauge x 1/4" (pen needle, diabetic) cholecalciferol (vitamin D3) 25 1,000 unit PO QAM 06/08/19 02/13/21 History mcg (1,000 unit) tablet (Vitamin D3) blood sugar diagnostic (OneTouch #400 ea 02/25/20 10/12/20 Rx Verio test strips) digoxin 125 mcg (0.125 mg) tablet 125 mcg PO 3XWK #39 tab 06/28/20 02/13/21 Rx (Digox) isosorbide mononitrate 30 mg 30 mg PO 3XWK #39 tab 06/28/20 02/13/21 Rx tablet,extended release 24 hr mupirocin 2 % topical ointment 1 applic TOPICAL BID #15 g 07/09/20 02/13/21 Rx lisinopril 5 mg tablet 5 mg PO DAILY #30 tab 08/13/20 02/13/21 Rx calcium acetate(phosphat bind) 667 mg PO TIDM 08/19/20 02/13/21 History (Phoslyra) propranolol 120 mg capsule,24 120 mg PO QAM #90 cap 08/19/20 02/13/21 Rx hr,extended release ezetimibe 10 mg tablet (Zetia) 10 mg PO DAILY #90 tab 09/08/20 02/13/21 Rx Novolog Flexpen U-100 Insulin 100 See Rx Instructions SQ .COMPLEX 10/07/20 02/13/21 Rx unit/mL (3 mL) subcutaneous #45 ml NS (insulin aspart U-100) alprazolam 1 mg tablet 1 mg PO HS PRN #30 tab 12/09/20 02/13/21 Rx insulin glargine U-300 conc 300 35 unit SUBCUT DAILY ml 01/11/21 02/13/21 History unit/mL (1.5 mL) subcutaneous pen (Toujeo SoloStar U-300 Insulin) nitroglycerin 0.4 mg sublingual 0.4 mg SUBLINGUAL Q5M PRN #25 tab 02/07/21 02/13/21 Rx tablet aspirin 81 mg tablet,delayed 81 mg PO DAILY 02/13/21 02/13/21 History release isosorbide mononitrate 60 mg 60 mg PO 4XWK 02/13/21 02/13/21 History tablet,extended release 24 hr vit B,C-folic ac 800 mcg-zinc 12.5 1 tab PO DAILY 02/13/21 02/13/21 History mg-selen-D3 2,000 unit-vit E tablet (RenaPlex-D) Patient History Medical History Anxiety C. difficile colitis Coronary artery disease Diabetes mellitus (11/04/12) Dysphagia ESRD (end stage renal disease) on dialysis Essential tremor Hyperlipidemia (11/04/12) Hypertension Myxoma of heart Presence of cardiac pacemaker Sick sinus syndrome Skin cancer Surgical History AVF (arteriovenous fistula) S/P CABG (coronary artery bypass graft) S/P cardiac pacemaker procedure S/P cataract surgery S/P colonoscopy S/P hemorrhoidectomy S/P hysterectomy S/P laparoscopic cholecystectomy Family History Other No pertinent family history Denies family history of Ovarian cancer Prostate cancer No family history of adverse response to anesthesia Myocardial infarction Breast cancer Colorectal cancer Stroke Social History Smoking Status: Never smoker Second Hand Exposure: No; Hx Alcohol Use: No Hx Substance Use: No Preferred Language: Portuguese Communication Ability: Effective Visual Impairment: No Limitations Hearing Ability: Normal Heel Builder Machine Required: No Beliefs That Will Affect Care: None marital status: / Current Living Situation: Alone Current Living Situation Comment: in 2 story césar, 12 steps, lives on main floor current occupational status: retired Feels Safe at Home: Yes Childhood Exposure to Second-Hand Smoke: No Seatbelt Use: always Assistive Devices: Denture - Upper, Denture - Lower, Glasses and Oxygen - Continuous Review of Systems Review of Systems: Detailed review of system was negative except mentioned above in HPI. Physical Exam Constitutional: WD/WN, vitals as above + ill appearing; no acute distress Eyes: + anicteric sclerae ENMT: Ears: no hearing impairment and no external ear abnormality Nose: nasal mucous membranes not dry Neck: normal visual inspection Thyroid: no thyromegaly Respiratory: normal respiratory effort; no respiratory distress and no cough Auscultation: + diminished lung sounds Cardiovascular: Rate/Rhythm: regular rate and regular rhythm Heart Sounds: normal S1 and normal S2 Extremities: no edema Gastrointestinal (Abdomen): Inspection/Auscultation: abdomen normal to inspection and normal bowel sounds Percussion/Palpation: abdomen soft; abdomen nontender Musculoskeletal: Extremities: extremities normal to inspection Skin: normal turgor; no rashes Neurologic: no focal motor deficits and not confused Psychiatric: Orientation: alert and oriented x 3 Affect: euthymic affect Results & Data ([facility]) Vital Signs (Past 12 Hours) Vital Signs Temp Pulse Pulse Resp BP Pulse Ox Pulse Ox 02/14/21 07:25 37.3 C 60 153/64 H 100 02/14/21 05:49 174/61 H 02/14/21 03:14 36.6 C 60 24 173/63 H 100 02/13/21 23:59 60 02/13/21 23:05 36.7 C 60 20 177/61 H 100 02/13/21 22:44 100 PG Care Time/CCT Total # of Minutes Spent Total Time Spent with Patient: Total time spent is greater than 50% in coordination of care (as documented) at patient's floor/unit and/or counseling patient: Coding Level of Care Code 12364 Initial Inpt Care Lvl 3 Diagnoses ESRD (end stage renal disease) on dialysis N18.6; Z99.2 Hypertension I15.0 Hypertension type: renovascular hypertension Diabetes mellitus E11.9 Hyperlipidemia E78.5 Hypoxia R09.02 Elevated troponin R77.8 (1) Hypertension Hypertension type: renovascular hypertension Qualified Code(s): I15.0 - Renovascular hypertension
--- NOTE | 2021-02-14 12:06 | Electrocardiogram Report ---
Test Reason : Blood Pressure : / mmHG Vent. Rate : 072 BPM Atrial Rate : 072 BPM P-R Int : 252 ms QRS Dur : 164 ms QT Int : 440 ms P-R-T Axes : -02 267 119 degrees QTc Int : 481 ms Atrial-paced rhythm with prolonged AV conduction Right bundle branch block Abnormal ECG When compared with ECG of 01-OCT-2019 14:54, T wave inversion no longer evident in Lateral leads Confirmed by Richardson Milligan ([id number]) on 02/14/2021 12:05:53 PM Referred By: REFERRED SELF Confirmed By:Richardson Milligan
--- NOTE | 2021-02-14 12:19 | Electrocardiogram Report ---
Test Reason : Blood Pressure : / mmHG Vent. Rate : 060 BPM Atrial Rate : 060 BPM P-R Int : 260 ms QRS Dur : 158 ms QT Int : 466 ms P-R-T Axes : 000 -46 157 degrees QTc Int : 466 ms Atrial-paced rhythm with prolonged AV conduction Left axis deviation Right bundle branch block T wave abnormality, consider lateral ischemia Abnormal ECG When compared with ECG of 13-FEB-2021 17:40, (unconfirmed) T wave inversion now evident in Lateral leads Confirmed by Richardson Milligan ([id number]) on 02/14/2021 12:19:08 PM Referred By: REFERRED SELF Confirmed By:Richardson Milligan
[2021-02-14] MEDS ORDERED: LOPERAMIDE HCL 2 MG CAP PO PRN (12:25)
--- NOTE | 2021-02-14 12:28 | Hospitalist Progress Note ---
Date of Service February 14, 2021 Assessment & Plan (1) Controlled diabetes mellitus with neurologic complication, with long-term current use of insulin: Plan: 86-year-old female with a medical history pertinent for coronary artery disease status post CABG, IDDM, cardiac myxoma, paroxysmal A. fib and sick sinus syndrome status post pacemaker installation presented to the emergency department for complaints of generalized fatigue and shortness of breath. 1. Hypoxia due to likely new congestive heart failure New oxygen requirement of 3 L of nasal cannula, most likely secondary to pulmonary edema and bilateral pleural effusions visualized on chest x-ray HD today, down to 2L NC, 100% saturations check echo With systolic murmur heard throughout precordium most likely worsened regurg or recent progression to heart failure continue propranolol/lisinopril/isosorbide mononitrate given in ER Daily weight/monitor I's and O's 2. Elevated troponin Troponin of 0.644 in ER with abnormal EKG, up to 1.2 today, no chest pain continue on heparin drip Sublingual nitro as needed for chest pain, no chest pain Daily EKG Cardiology consult, no plans for cath 3. COVID-19 Positive PCR on 02/13 Patient has been vaccinated x2 We will defer steroid treatment at this time given that hypoxia is likely secondary to pulmonary edema rather than COVID-19 Goal negative fluid balance, can consider initiation of steroids if respiratory status does not improve after diuresis Coronary artery disease status post CABG High risk for OK in setting of history and IDDM Continue daily aspirin, sublingual nitro for chest pain Continue ezetimibe daily Hypertension Continue parenteral 120 mg ER every morning, lisinopril 5 mg daily, Takes isosorbide mononitrate alternating 60 and 30 mg every other day. Insulin-dependent diabetes mellitus Patient takes 35 units of Toujeo U3 100 insulin daily as well as sliding scale insulin aspart with meals (15, 18, 25 with each meal respectively limit 60 units/day) Pharmacy glycemic consult placed Last A1c 01/26/2021 5.7 ESRD Continue dialysis Sunday Nephrology consult Anxiety Continue home alprazolam 1 mg p.o. at bedtime as needed DVT ppx: heparin drip FEN/GI: heart healthy, low salt, DM2 diet Bowel regimen: miralax PRN Code Status: Full Code Dispo: PCU (2) S/P CABG (coronary artery bypass graft): (3) Paroxysmal atrial fibrillation: (4) Presence of cardiac pacemaker: (5) ESRD (end stage renal disease) on dialysis: (6) Hyperlipidemia: (7) Fatigue: (8) Shortness of breath: (9) Hypertension: (10) Hypoxia: (11) Elevated troponin: Admission and Anticipated Discharge Date Admission Date: February 13, 2021 Subjective patient doing well, only complaint is some nausea, no chest pain or pressure, no dyspnea, no cough, no fever appetite is diminished due to the nausea plans for HD today still on heparin drip, no plans for heart cath troponin going up slightly, now it is > 1 vitals stable Review of Systems Review of Systems: All systems reviewed & are unremarkable except as noted in Subjective Physical Exam Physical Exam: General: well developed, well nourished, elderly frail female, no acute distress, comfortable Neck: supple, trachea midline, normal thyroid Lungs: clear to auscultation bilaterally, normal respiratory effort, no acc essory muscle use, no distress Heart: regular S1 and S2, no murmur, peripheral pulses normal, capillary refill normal, no edema Abdomen: soft, NT, ND, + BS, no hepatomegaly, normal to percussion Extremities: normal in appearance, no cyanosis, no petechiae, strength is 5/5 bilaterally Neuro: awake, cooperative, moves all extremities, no focal motor deficits, CN II-XII intact, sensation in extremities intact, normal speech Skin: warm, dry, no rash, normal turgor Psych: Awake, alert oriented x 3, euthymic affect Results & Data Results & Data ([facility]) Vital Signs (Past 12 Hours) Vital Signs Temp Pulse Pulse Resp BP Pulse Ox 02/14/21 11:24 37.3 C 60 16 156/58 H 99 02/14/21 08:00 60 02/14/21 07:25 37.3 C 60 153/64 H 100 02/14/21 05:49 174/61 H 02/14/21 03:14 36.6 C 60 24 173/63 H 100 Laboratory Results Laboratory Results - last 24 hr 02/13/21 02/13/21 02/13/21 16:44 16:44 16:44 WBC 9.91 RBC 3.60 L Hgb 11.9 L Hct 35.1 L MCV 97.5 MCH 33.1 MCHC 33.9 RDW Std Deviation 54.7 H RDW Coeff of Bjorn 15.6 H Plt Count 139 MPV 9.5 Immature Gran % (Auto) 0.1 Neut % (Auto) 66.4 Lymph % (Auto) 20.0 [place] % (Auto) 12.3 Eos % (Auto) 0.7 Baso % (Auto) 0.5 Neut # (Auto) 6.58 H Lymph # (Auto) 1.98 [place] # (Auto) 1.22 H Eos # (Auto) 0.07 Baso # (Auto) 0.05 Immature Gran # (Auto) 0.01 PT 10.8 INR 1.1 APTT 27.8 PTT Ratio 1.1 Sodium 133 L Potassium 5.5 H Chloride 96 L Carbon Dioxide 25 Anion Gap 12.0 H BUN 55 H Creatinine 5.67 H* Est Cr Clr Drug Dosing 5.1 Est GFR ( Amer) 7.2 Est GFR (Non-Af Amer) 6.2 BUN/Creatinine Ratio 9.8 L Glucose 212 H POC Glucose Lactate Calcium 9.6 Magnesium 2.7 H Total Bilirubin 0.9 AST 29 ALT 27 Alkaline Phosphatase 47 Troponin I NT-Pro-B Natriuret Pep Total Protein 7.4 Albumin 3.6 Globulin 3.8 Albumin/Globulin Ratio 1.0 Procalcitonin Urine Color Urine Appearance Urine pH Ur Specific [place] Urine Protein Urine Glucose (UA) Urine Ketones Urine Blood Urine Nitrite Urine Bilirubin Urine Urobilinogen Ur Leukocyte Esterase Urine WBC (Auto) Urine RBC (Auto) U Hyaline Cast (Auto) U Epithel Cells (Auto) Urine Bacteria (Auto) Nasal Screen MRSA (PCR) Digoxin COVID-19 Eval Order SARS-CoV-2 (PCR) 02/13/21 02/13/21 02/13/21 16:44 16:44 16:44 WBC RBC Hgb Hct MCV MCH MCHC RDW Std Deviation RDW Coeff of Bjorn Plt Count MPV Immature Gran % (Auto) Neut % (Auto) Lymph % (Auto) [place] % (Auto) Eos % (Auto) Baso % (Auto) Neut # (Auto) Lymph # (Auto) [place] # (Auto) Eos # (Auto) Baso # (Auto) Immature Gran # (Auto) PT INR APTT PTT Ratio Sodium Potassium Chloride Carbon Dioxide Anion Gap BUN Creatinine Est Cr Clr Drug Dosing Est GFR ( Amer) Est GFR (Non-Af Amer) BUN/Creatinine Ratio Glucose POC Glucose Lactate Calcium Magnesium Total Bilirubin AST ALT Alkaline Phosphatase Troponin I NT-Pro-B Natriuret Pep Total Protein Albumin Globulin Albumin/Globulin Ratio Procalcitonin 0.11 Urine Color Dark Yellow Urine Appearance Clear Urine pH 8.0 H Ur Specific [place] 1.017 Urine Protein 3+ H Urine Glucose (UA) 2+ H Urine Ketones Negative Urine Blood Negative Urine Nitrite Negative Urine Bilirubin Negative Urine Urobilinogen Negative Ur Leukocyte Esterase Negative Urine WBC (Auto) 0 Urine RBC (Auto) 0-4 U Hyaline Cast (Auto) 0 U Epithel Cells (Auto) 0-5 Urine Bacteria (Auto) Negative Nasal Screen MRSA (PCR) Digoxin COVID-19 Eval Order Covid19 at [facility] SARS-CoV-2 (PCR) 02/13/21 02/13/21 02/13/21 16:44 16:44 17:26 WBC RBC Hgb Hct MCV MCH MCHC RDW Std Deviation RDW Coeff of Bjorn Plt Count MPV Immature Gran % (Auto) Neut % (Auto) Lymph % (Auto) [place] % (Auto) Eos % (Auto) Baso % (Auto) Neut # (Auto) Lymph # (Auto) [place] # (Auto) Eos # (Auto) Baso # (Auto) Immature Gran # (Auto) PT INR APTT PTT Ratio Sodium Potassium Chloride Carbon Dioxide Anion Gap BUN Creatinine Est Cr Clr Drug Dosing Est GFR ( Amer) Est GFR (Non-Af Amer) BUN/Creatinine Ratio Glucose POC Glucose Lactate 1.4 Calcium Magnesium Total Bilirubin AST ALT Alkaline Phosphatase Troponin I 0.644 H* NT-Pro-B Natriuret Pep > 23373 H Total Protein Albumin Globulin Albumin/Globulin Ratio Procalcitonin Urine Color Urine Appearance Urine pH Ur Specific [place] Urine Protein Urine Glucose (UA) Urine Ketones Urine Blood Urine Nitrite Urine Bilirubin Urine Urobilinogen Ur Leukocyte Esterase Urine WBC (Auto) Urine RBC (Auto) U Hyaline Cast (Auto) U Epithel Cells (Auto) Urine Bacteria (Auto) Nasal Screen MRSA (PCR) Digoxin COVID-19 Eval Order SARS-CoV-2 (PCR) POSITIVE A* 02/13/21 02/13/21 02/13/21 21:17 21:45 22:58 WBC RBC Hgb Hct MCV MCH MCHC RDW Std Deviation RDW Coeff of Bjorn Plt Count MPV Immature Gran % (Auto) Neut % (Auto) Lymph % (Auto) [place] % (Auto) Eos % (Auto) Baso % (Auto) Neut # (Auto) Lymph # (Auto) [place] # (Auto) Eos # (Auto) Baso # (Auto) Immature Gran # (Auto) PT INR APTT PTT Ratio Sodium Potassium Chloride Carbon Dioxide Anion Gap BUN Creatinine Est Cr Clr Drug Dosing Est GFR ( Amer) Est GFR (Non-Af Amer) BUN/Creatinine Ratio Glucose POC Glucose 166 H Lactate Calcium Magnesium Total Bilirubin AST ALT Alkaline Phosphatase Troponin I 0.859 H* NT-Pro-B Natriuret Pep Total Protein Albumin Globulin Albumin/Globulin Ratio Procalcitonin Urine Color Urine Appearance Urine pH Ur Specific [place] Urine Protein Urine Glucose (UA) Urine Ketones Urine Blood Urine Nitrite Urine Bilirubin Urine Urobilinogen Ur Leukocyte Esterase Urine WBC (Auto) Urine RBC (Auto) U Hyaline Cast (Auto) U Epithel Cells (Auto) Urine Bacteria (Auto) Nasal Screen MRSA (PCR) Digoxin 1.8 COVID-19 Eval Order SARS-CoV-2 (PCR) 02/14/21 02/14/21 02/14/21 02:45 03:15 04:44 WBC 8.22 RBC 3.24 L Hgb 10.5 L Hct 32.6 L MCV 100.6 H MCH 32.4 MCHC 32.2 RDW Std Deviation 57.3 H RDW Coeff of Bjorn 15.7 H Plt Count 125 L MPV 9.4 Immature Gran % (Auto) 0.4 Neut % (Auto) 56.2 Lymph % (Auto) 29.7 [place] % (Auto) 12.5 Eos % (Auto) 0.7 Baso % (Auto) 0.5 Neut # (Auto) 4.62 Lymph # (Auto) 2.44 [place] # (Auto) 1.03 H Eos # (Auto) 0.06 Baso # (Auto) 0.04 Immature Gran # (Auto) 0.03 H PT INR APTT > 139.0 H* PTT Ratio > 5.3 Sodium Potassium Chloride Carbon Dioxide Anion Gap BUN Creatinine Est Cr Clr Drug Dosing Est GFR ( Amer) Est GFR (Non-Af Amer) BUN/Creatinine Ratio Glucose POC Glucose Lactate Calcium Magnesium Total Bilirubin AST ALT Alkaline Phosphatase Troponin I NT-Pro-B Natriuret Pep Total Protein Albumin Globulin Albumin/Globulin Ratio Procalcitonin Urine Color Urine Appearance Urine pH Ur Specific [place] Urine Protein Urine Glucose (UA) Urine Ketones Urine Blood Urine Nitrite Urine Bilirubin Urine Urobilinogen Ur Leukocyte Esterase Urine WBC (Auto) Urine RBC (Auto) U Hyaline Cast (Auto) U Epithel Cells (Auto) Urine Bacteria (Auto) Nasal Screen MRSA (PCR) Negative Digoxin COVID-19 Eval Order SARS-CoV-2 (PCR) 02/14/21 02/14/21 02/14/21 04:44 04:52 08:13 WBC RBC Hgb Hct MCV MCH MCHC RDW Std Deviation RDW Coeff of Bjorn Plt Count MPV Immature Gran % (Auto) Neut % (Auto) Lymph % (Auto) [place] % (Auto) Eos % (Auto) Baso % (Auto) Neut # (Auto) Lymph # (Auto) [place] # (Auto) Eos # (Auto) Baso # (Auto) Immature Gran # (Auto) PT INR APTT > 139.0 H* PTT Ratio > 5.3 Sodium 133 L Potassium 5.0 Chloride 96 L Carbon Dioxide 28 Anion Gap 9.0 BUN 65 H Creatinine 5.85 H* Est Cr Clr Drug Dosing 5.1 Est GFR ( Amer) 6.9 Est GFR (Non-Af Amer) 6.0 BUN/Creatinine Ratio 11.0 Glucose 139 H POC Glucose 172 H Lactate Calcium 8.8 Magnesium Total Bilirubin 0.8 AST 35 ALT 35 Alkaline Phosphatase 48 Troponin I 1.220 H* NT-Pro-B Natriuret Pep Total Protein 6.8 Albumin 3.2 L Globulin 3.6 Albumin/Globulin Ratio 0.9 Procalcitonin Urine Color Urine Appearance Urine pH Ur Specific [place] Urine Protein Urine Glucose (UA) Urine Ketones Urine Blood Urine Nitrite Urine Bilirubin Urine Urobilinogen Ur Leukocyte Esterase Urine WBC (Auto) Urine RBC (Auto) U Hyaline Cast (Auto) U Epithel Cells (Auto) Urine Bacteria (Auto) Nasal Screen MRSA (PCR) Digoxin COVID-19 Eval Order SARS-CoV-2 (PCR) 02/14/21 02/14/21 08:30 11:13 WBC RBC Hgb Hct MCV MCH MCHC RDW Std Deviation RDW Coeff of Bjorn Plt Count MPV Immature Gran % (Auto) Neut % (Auto) Lymph % (Auto) [place] % (Auto) Eos % (Auto) Baso % (Auto) Neut # (Auto) Lymph # (Auto) [place] # (Auto) Eos # (Auto) Baso # (Auto) Immature Gran # (Auto) PT INR APTT 57.5 H* PTT Ratio 2.2 Sodium Potassium Chloride Carbon Dioxide Anion Gap BUN Creatinine Est Cr Clr Drug Dosing Est GFR ( Amer) Est GFR (Non-Af Amer) BUN/Creatinine Ratio Glucose POC Glucose 152 H Lactate Calcium Magnesium Total Bilirubin AST ALT Alkaline Phosphatase Troponin I NT-Pro-B Natriuret Pep Total Protein Albumin Globulin Albumin/Globulin Ratio Procalcitonin Urine Color Urine Appearance Urine pH Ur Specific [place] Urine Protein Urine Glucose (UA) Urine Ketones Urine Blood Urine Nitrite Urine Bilirubin Urine Urobilinogen Ur Leukocyte Esterase Urine WBC (Auto) Urine RBC (Auto) U Hyaline Cast (Auto) U Epithel Cells (Auto) Urine Bacteria (Auto) Nasal Screen MRSA (PCR) Digoxin COVID-19 Eval Order SARS-CoV-2 (PCR) Medications Administered Current Inpatient Medications Acetaminophen (Acetaminophen 325 Mg Tab) 650 mg PO Q4H PRN PRN Reason: Pain or Fever Stop: 03/15/21 22:43 Alprazolam (Alprazolam 0.5 Mg Tablet) 1 mg PO HS PRN PRN Reason: Anxiety Stop: 03/15/21 22:43 Aspirin (Aspirin 81 Mg Ectab) 81 mg PO DAILY [facility] Stop: 03/16/21 08:59 Last Admin: 02/14/21 08:47 Dose: 81 mg Documented by: Bisacodyl (Bisacodyl 10 Mg Supp) [address] DAILY PRN PRN Reason: Constipation Stop: 03/16/21 02:50 Calcium Acetate (Calcium Acetate 667 Mg Cap/Tab) 667 mg PO TIDM [facility] Stop: 03/16/21 07:59 Last Admin: 02/14/21 11:51 Dose: 667 mg Documented by: Clobetasol Propionate (Clobetasol Propionate 0.05% Oint 15 Gm Tube) 1 appln EXT BID PRN PRN Reason: Skin Irritation Stop: 03/15/21 23:02 Dextrose (Dextrose 50% 50 Ml Syringe) 25 - 50 ml IV UD PRN; Protocol PRN Reason: Hypoglycemia Protocol Stop: 03/15/21 23:29 Digoxin (Digoxin 0.125 Mg Tab) 0.125 mg PO MoWeFr@1600 [facility] Stop: 03/16/21 15:59 Ezetimibe (Ezetimibe 10 Mg Tablet) 10 mg PO DAILY [facility] Stop: 03/16/21 08:59 Last Admin: 02/14/21 08:47 Dose: 10 mg Documented by: Furosemide (Furosemide 40 Mg/4 Ml Vial) 40 mg IV DAILY [facility] Stop: 03/17/21 08:59 Glucagon (Glucagon For Inj 1 Mg Vial) 1 mg IM UD PRN; Protocol PRN Reason: Hypoglycemia Protocol Stop: 03/15/21 23:29 Glucose (Glucose 40% Gel 15 Gm Tube) 15 - 30 gm PO UD PRN; Protocol PRN Reason: Hypoglycemia Protocol Stop: 03/15/21 23:29 Glucose (Glucose 10 Tabs/Tube) 4 - 8 tabs PO UD PRN; Protocol PRN Reason: Hypoglycemia Protocol Stop: 03/15/21 23:29 Heparin Sodium/Dextrose (Heparin Sodium/Dextrose) 25,000 units in 500 mls @ 13 mls/hr IV .Q24H [facility]; Protocol Stop: 03/15/21 20:44 Last Titration: 02/14/21 10:41 Dose: 650 units/hr, 13 mls/hr Documented by: Insulin Aspart (Insulin Aspart 100 Units/Ml 3 Ml Pen) 0 units SC [facility]; Protocol Stop: 03/15/21 23:29 Last Admin: 02/14/21 09:22 Dose: 1 units Documented by: Insulin Glargine (Insulin Glargine Solostar 100 Units/Ml 3 Ml Pen) 25 units SC HS [facility]; Protocol Stop: 03/15/21 23:29 Last Admin: 02/14/21 00:09 Dose: 25 units Documented by: Isosorbide Mononitrate (Isosorbide [place] Extended Rel 30 Mg Tabcr) 30 mg PO MoWeFr@0900 [facility] Stop: 03/16/21 08:59 Last Admin: 02/14/21 08:47 Dose: 30 mg Documented by: Isosorbide Mononitrate (Isosorbide [place] Extended Rel 60 Mg Tabcr) 60 mg PO SuTuThSa@0900 [facility] Stop: 03/17/21 08:59 Lisinopril (Lisinopril 5 Mg Tab) 5 mg PO DAILY [facility] Stop: 03/16/21 08:59 Last Admin: 02/14/21 08:46 Dose: 5 mg Documented by: Loperamide HCl (Loperamide Hcl 2 Mg Cap) 2 mg PO Q6 PRN PRN Reason: Diarrhea Stop: 03/16/21 12:24 Miscellaneous (Carbohydrates For Hypoglycemia ) 15 - 30 gm PO UD PRN PRN Reason: Hypoglycemia Treatment Stop: 03/15/21 23:29 Miscellaneous Information (Pharmacy Glycemic Mgmt Consult) 1 ea N/A UD PRN PRN Reason: Consult Stop: 03/15/21 22:43 Nitroglycerin (Nitroglycerin Sl 0.4 Mg/Tab Tab) 0.4 mg SL Q5M PRN PRN Reason: chest pain Stop: 03/15/21 22:43 Ondansetron HCl (Ondansetron Inj 2 Mg/Ml 2 Ml Vial) 4 mg IV Q6H PRN PRN Reason: Nausea Stop: 03/15/21 22:43 Last Admin: 02/14/21 11:49 Dose: 4 mg Documented by: Polyethylene Glycol (Polyethylene (Miralax) 17 Gm Pack) 17 gm PO DAILY [facility] Stop: 03/16/21 08:59 Last Admin: 02/14/21 08:51 Dose: Not Given Documented by: Propranolol HCl (Propranolol Hcl 60 Mg [place]) 120 mg PO QAM [facility] Stop: 03/16/21 08:59 Last Admin: 02/14/21 08:46 Dose: 120 mg Documented by: PG Care Time/CCT Total # of Minutes Spent Total Time Spent with Patient: Total time spent is greater than 50% in coordination of care (as documented) at patient's floor/unit and/or counseling patient: Coding Level of Care Code 89537 Subseq Hosp Care Lvl 2 Diagnoses Controlled diabetes mellitus with neurologic complication, with long-term current use of insulin E11.49; Z79.4 S/P CABG (coronary artery bypass graft) Z95.1 Paroxysmal atrial fibrillation I48.0 Presence of cardiac pacemaker Z95.0 ESRD (end stage renal disease) on dialysis N18.6; Z99.2 Hyperlipidemia E78.5 Fatigue R53.83 Shortness of breath R06.02 Hypertension I15.0 Hypertension type: renovascular hypertension Hypoxia R09.02 Elevated troponin R77.8 (1) Hypertension Hypertension type: renovascular hypertension Qualified Code(s): I15.0 - Renovascular hypertension
--- NOTE | 2021-02-14 14:25 | XCELERA ---
[id number] \\[id number]\[id number]
--- NOTE | 2021-02-14 14:27 | Pharmacy Report ---
Pharmacy Glycemic Short Note 2 - Date of Service February 14, 2021 - Glycemic Short BSG Results (Last 24 hours): 02/13/21 02/13/21 02/14/21 16:44 22:58 04:44 Glucose 212 H 139 H POC Glucose 166 H 02/14/21 02/14/21 08:13 11:13 Glucose POC Glucose 172 H 152 H OUTPATIENT ANTIDIABETIC REGIMEN: * Lantus 35 units HS * Novolog 15/18/25 units ASSESSMENT: * Ms Dominguez is an 86 y/o F with T2DM on insulin and HD who presents with COVID. Patient is not receiving steroids. * During last hospitalization, patient was maintained on Lantus 10-15 units nightly with Novolog CF 40 CR 13. * Patient given Lantus 25 units last night. * BSGs yesterday were 166 mg/dL and today are 172 -152 mg/dL. Patient has no appetite. * Will reduce Lantus to scale used during last hospitalization stu in light of decreased PO intake. PLAN FOR INPATIENT GLYCEMIC CONTROL: * Hold outpatient oral diabetes medications * Basal insulin * Lantus 10-15 units SQ HS based upon BSG * Bolus insulin * NovoLog per scale ACHS or Q6hrs while NPO * Goal Range: Low 120 mg/dL - High 150 mg/dL * Correction Factor: 30 mg/dL/unit * Nutritional / Prandial insulin per carb ratio of 1 unit per 10 grams CHO consumed PLAN FOR DISCHARGE: * Patient's A1c = 5.7% today. * However, this result is likely somewhat unreliable in ESRD patients d/t interactions between the A1c analyzing technique and high levels of urea in ESRD, reduced RBC life span, iron deficiency anemia, and EPO administration. HbA1c > 7.5% in ESRD patient may overestimate the extent of hyperglycemia in ESRD patients. * Recommend continuing home glycemic regimen as long as patient is not having any hypoglycemic episodes. * Test blood sugars at least three times daily (since receiving Novolog three times daily) and work with provider to optimize glycemic regimen.
[2021-02-14 19:46] LABS: Partial Thromboplastin Ratio > 5.3
[2021-02-14 20:03] LABS: Partial Thromboplastin Time > 139.0 Seconds (21.0-31.0)
[2021-02-14] MEDS: DIGOXIN 0.125 MG TAB PO SCH (21:14)
[2021-02-14] MEDS: INSULIN GLARGINE SOLOSTAR 100 UNITS/ML 3 ML PEN SC SCH (21:49)
[2021-02-14] MEDS: METOPROLOL TARTRATE 1 MG/ML VIAL IV PRN ×3 (21:59→23:19)
[2021-02-14 22:09] LABS: Partial Thromboplastin Ratio 4.3
[2021-02-15 00:02] LABS: Partial Thromboplastin Ratio 2.7
[2021-02-15 00:06] LABS: Partial Thromboplastin Time 70.9 Seconds (21.0-31.0)
[2021-02-15] MEDS: HEPARIN SODIUM/DEXTROSE 25,000 UNITS/500 ML BAG IV SCH (00:10)
[2021-02-15 07:42] LABS: Partial Thromboplastin Time 51.7 Seconds (21.0-31.0)
[2021-02-15] MEDS: ASPIRIN 81 MG ECTAB PO SCH (08:03)
[2021-02-15] MEDS: lisinopril 5 MG TAB PO SCH (08:04)
[2021-02-15] MEDS: ISOSORBIDE MONO EXTENDED REL 60 MG TABCR PO SCH (08:05)
[2021-02-15] MEDS: PROPRANOLOL HCL 60 MG LA CAP PO SCH (08:07)
[2021-02-15] MEDS: POLYETHYLENE (MIRALAX) 17 GM PACK PO SCH (08:09)
[2021-02-15] MEDS: EZETIMIBE 10 MG TABLET PO SCH (08:10)
[2021-02-15] MEDS: METOPROLOL TARTRATE 1 MG/ML VIAL IV PRN (08:11)
[2021-02-15] MEDS: INSULIN ASPART 100 UNITS/ML 3 ML PEN SC SCH ×4 (08:49→21:52)
[2021-02-15] MEDS: CALCIUM ACETATE 667 MG CAP/TAB PO SCH ×3 (08:49→17:43)
[2021-02-15] MEDS: amLODIPine BESYLATE 5 MG TAB PO SCH (09:50)
[2021-02-15] MEDS: FUROSEMIDE 40 MG/4 ML VIAL IV SCH (09:56)
--- NOTE | 2021-02-15 10:34 | Nephrology Progress Note ---
Date of Service February 15, 2021 Assessment & Plan (1) ESRD (end stage renal disease) on dialysis: (2) Hypertension: (3) Diabetes mellitus: (4) Hyperlipidemia: (5) Hypoxia: (6) Elevated troponin: Plan: End-stage renal disease, on hemodialysis, admitted with COVID pneumonia. She was also noted to have mildly elevated troponin although no chest pain or shortness of breath. She was vaccinated for COVID before. Currently volume status, electrolyte acceptable. had dialysis yesterday. On heparin drip -- encourage p.o. intake -- Dose medications for GFR less than 10 -- continue on phosphate binder and renal vitamin -- start on boost nutritional supplement 1 can 3 times a day will follow Admission and Anticipated Discharge Date Admission Date: February 13, 2021 Tashi Vick was seen in her room this morning, overall clinically stable. p.o. intake has been poor as she does not have her denture. Had dialysis yesterday, had 2 L fluid removal. Reports some epigastric pain and discomfort but no shortness of breath or chest pain. Blood pressure has been running high. Review of Systems Review of Systems: Detailed review of system was otherwise negative except mentioned above Physical Exam Constitutional: WD/WN, vitals as above + ill appearing; no acute distress Eyes: + anicteric sclerae ENMT: Ears: no hearing impairment Neck: normal visual inspection Respiratory: normal respiratory effort; no respiratory distress Auscultation: lungs clear to auscultation bilaterally Cardiovascular: Rate/Rhythm: regular rate and regular rhythm Heart Sounds: normal S1 and normal S2 Extremities: no edema Skin: no rashes Neurologic: no focal motor deficits and not confused Psychiatric: Orientation: alert and oriented x 3 Results & Data ([facility]) Vital Signs (Past 12 Hours) Vital Signs Temp Pulse Pulse Pulse Resp BP BP 02/15/21 09:56 172/63 H 02/15/21 08:17 189/65 H 02/15/21 08:15 60 192/64 H 02/15/21 08:11 60 196/53 H 02/15/21 08:08 37.1 C 60 16 190/62 H 02/15/21 04:08 176/88 H 02/15/21 03:31 37.1 C 60 16 187/71 H 02/15/21 00:08 60 16 178/88 H 11/08/21 23:59 60 02/14/21 23:38 37.4 C 60 18 182/60 H 02/14/21 23:19 60 181/85 H 02/14/21 22:44 02/14/21 22:37 60 188/61 H Pulse Ox Pulse Ox 02/15/21 09:56 02/15/21 08:17 02/15/21 08:15 02/15/21 08:11 02/15/21 08:08 100 02/15/21 04:08 02/15/21 03:31 99 02/15/21 00:08 100 02/14/21 23:59 02/14/21 23:38 100 02/14/21 23:19 02/14/21 22:44 100 02/14/21 22:37 PG Care Time/CCT Total # of Minutes Spent Total Time Spent with Patient: Total time spent is greater than 50% in coordination of care (as documented) at patient's floor/unit and/or counseling patient: Coding Level of Care Code 70556 Subseq Hosp Care Lvl 2 Diagnoses ESRD (end stage renal disease) on dialysis N18.6; Z99.2 Hypertension I15.0 Hypertension type: renovascular hypertension Diabetes mellitus E11.9 Hyperlipidemia E78.5 Hypoxia R09.02 Elevated troponin R77.8 (1) Hypertension Hypertension type: renovascular hypertension Qualified Code(s): I15.0 - Renovascular hypertension
--- NOTE | 2021-02-15 11:41 | Hospitalist Progress Note ---
Date of Service February 15, 2021 Assessment & Plan (1) Controlled diabetes mellitus with neurologic complication, with long-term current use of insulin: Plan: 86-year-old female with a medical history pertinent for coronary artery disease status post CABG, IDDM, cardiac myxoma, paroxysmal A. fib and sick sinus syndrome status post pacemaker installation presented to the emergency department for complaints of generalized fatigue and shortness of breath. 1. Hypoxia due to likely new congestive heart failure down to 2L, 100%, keep oxygen on until tomorrow given possible recent ID check echo - EF preserved at 55%, severe MR which was known, no new wall motion changes continue propranolol/lisinopril/isosorbide mononitrate given in ER Daily weight/monitor I's and O's 2. Elevated troponin Troponin of 0.644 in ER with abnormal EKG, up to 1.2 02/14, no chest pain continue on heparin drip for 48-72 hours, likely stop tomorrow Sublingual nitro as needed for chest pain, no chest pain Daily EKG Cardiology consult, no plans for cath - echo: EF 55% 3. COVID-19 Positive PCR on 02/13 Patient has been vaccinated x2 We will defer steroid treatment at this time - treat with cough suppressants, flutter valve Coronary artery disease status post CABG High risk for ID in setting of history and IDDM Continue daily aspirin, sublingual nitro for chest pain Continue ezetimibe daily Hypertension Continue parenteral 120 mg ER every morning, lisinopril 5 mg daily, Takes isosorbide mononitrate alternating 60 and 30 mg every other day. Insulin-dependent diabetes mellitus Patient takes 35 units of Toujeo U3 100 insulin daily as well as sliding scale insulin aspart with meals (15, 18, 25 with each meal respectively limit 60 units/day) Pharmacy glycemic consult placed Last A1c 01/26/2021 5.7 ESRD Continue dialysis Sunday Nephrology consult - had HD yesterday with almost 2L of UF Anxiety Continue home alprazolam 1 mg p.o. at bedtime as needed DVT ppx: heparin drip FEN/GI: heart healthy, low salt, DM2 diet Bowel regimen: miralax PRN Code Status: Full Code Dispo: PCU (2) S/P CABG (coronary artery bypass graft): (3) Paroxysmal atrial fibrillation: (4) Presence of cardiac pacemaker: (5) ESRD (end stage renal disease) on dialysis: (6) Hyperlipidemia: (7) Fatigue: (8) Shortness of breath: (9) Hypertension: (10) Hypoxia: (11) Elevated troponin: Admission and Anticipated Discharge Date Admission Date: February 13, 2021 Subjective patient with no chest pain, eating a little bit, had HD yesterday with 1800mL UF her echo shows preserved EF, mitral regurgitation, no wall motion changes she c/o cough, very weak, it is a wet cough with not much sputum coming up not eating great, waiting on her teeth to be delivered to front desk team member Review of Systems Review of Systems: All systems reviewed & are unremarkable except as noted in Subjective Constitutional: + fatigue and + weakness Respiratory: + cough, + dyspnea and + sputum production Cardiovascular: no chest pain Physical Exam Physical Exam: General: well developed, well nourished, elderly frail female, no acute distress, comfortable Neck: supple, trachea midline, normal thyroid Lungs: + rhonchi bilaterally, + cough, normal respiratory effort, no accessory muscle use, no distress Heart: regular S1 and S2, no murmur, peripheral pulses normal, capillary refill normal, no edema Abdomen: soft, NT, ND, + BS, no hepatomegaly, normal to percussion Extremities: normal in appearance, no cyanosis, no petechiae, strength is 5/5 bilaterally Neuro: awake, cooperative, moves all extremities, no focal motor deficits, CN II-XII intact, sensation in extremities intact, normal speech Skin: warm, dry, no rash, normal turgor Psych: Awake, alert oriented x 3, euthymic affect Results & Data Results & Data ([facility]) Vital Signs (Past 12 Hours) Vital Signs Temp Pulse Pulse Pulse Resp BP BP 02/15/21 09:56 172/63 H 02/15/21 08:17 189/65 H 02/15/21 08:15 60 192/64 H 02/15/21 08:11 60 196/53 H 02/15/21 08:08 37.1 C 60 16 190/62 H 02/15/21 08:00 60 02/15/21 04:08 176/88 H 02/15/21 03:31 37.1 C 60 16 187/71 H 02/15/21 00:08 60 16 178/88 H 02/14/21 23:59 60 Pulse Ox 02/15/21 09:56 02/15/21 08:17 02/15/21 08:15 02/15/21 08:11 02/15/21 08:08 100 02/15/21 08:00 02/15/21 04:08 02/15/21 03:31 99 02/15/21 00:08 100 02/14/21 23:59 Laboratory Results Laboratory Results - last 24 hr 02/14/21 02/14/21 02/14/21 17:40 19:03 20:45 APTT > 139.0 H* PTT Ratio > 5.3 POC Glucose 102 H 139 H Troponin I 02/14/21 02/14/21 02/15/21 21:19 23:33 06:36 APTT 112.0 H* 70.9 H* 51.7 H* PTT Ratio 4.3 2.7 2.0 POC Glucose Troponin I 02/15/21 02/15/21 06:42 07:52 APTT PTT Ratio POC Glucose 150 H Troponin I 0.964 H* Medications Administered Current Inpatient Medications Acetaminophen (Acetaminophen 325 Mg Tab) 650 mg PO Q4H PRN PRN Reason: Pain or Fever Stop: 03/15/21 22:43 Alprazolam (Alprazolam 0.5 Mg Tablet) 1 mg PO HS PRN PRN Reason: Anxiety Stop: 03/15/21 22:43 Amlodipine Besylate (Amlodipine Besylate 5 Mg Tab) 10 mg PO QAM [facility] Stop: 03/17/21 08:59 Last Admin: 02/15/21 09:50 Dose: 10 mg Documented by: Aspirin (Aspirin 81 Mg Ectab) 81 mg PO DAILY [facility] Stop: 03/16/21 08:59 Last Admin: 02/15/21 08:03 Dose: 81 mg Documented by: Bisacodyl (Bisacodyl 10 Mg Supp) 10 mg [place] DAILY PRN PRN Reason: Constipation Stop: 03/16/21 02:50 Calcium Acetate (Calcium Acetate 667 Mg Cap/Tab) 667 mg PO TIDM [place] Stop: 03/16/21 07:59 Last Admin: 02/15/21 08:49 Dose: Not Given Documented by: Clobetasol Propionate (Clobetasol Propionate 0.05% Oint 15 Gm Tube) 1 appln EXT BID PRN PRN Reason: Skin Irritation Stop: 03/15/21 23:02 Dextrose (Dextrose 50% 50 Ml Syringe) 25 - 50 ml IV UD PRN; Protocol PRN Reason: Hypoglycemia Protocol Stop: 03/15/21 23:29 Digoxin (Digoxin 0.125 Mg Tab) 0.125 mg PO MoWeFr@1600 [facility] Stop: 03/16/21 15:59 Last Admin: 02/14/21 21:14 Dose: Not Given Documented by: Ezetimibe (Ezetimibe 10 Mg Tablet) 10 mg PO DAILY [place] Stop: 03/16/21 08:59 Last Admin: 02/15/21 08:10 Dose: 10 mg Documented by: Furosemide (Furosemide 40 Mg/4 Ml Vial) 40 mg IV DAILY [facility] Stop: 03/17/21 08:59 Last Admin: 02/15/21 09:56 Dose: 40 mg Documented by: Glucagon (Glucagon For Inj 1 Mg Vial) 1 mg IM UD PRN; Protocol PRN Reason: Hypoglycemia Protocol Stop: 03/15/21 23:29 Glucose (Glucose 40% Gel 15 Gm Tube) 15 - 30 gm PO UD PRN; Protocol PRN Reason: Hypoglycemia Protocol Stop: 03/15/21 23:29 Glucose (Glucose 10 Tabs/Tube) 4 - 8 tabs PO UD PRN; Protocol PRN Reason: Hypoglycemia Protocol Stop: 03/15/21 23:29 Heparin Sodium/Dextrose (Heparin Sodium/Dextrose) 25,000 units in 500 mls @ 8 mls/hr IV .Q24H [facility]; Protocol Stop: 03/15/21 20:44 Last Titration: 02/15/21 07:04 Dose: 400 units/hr, 8 mls/hr Documented by: Insulin Aspart (Insulin Aspart 100 Units/Ml 3 Ml Pen) [address] [facility]; Protocol Stop: 03/15/21 23:29 Last Admin: 02/15/21 08:49 Dose: Not Given Documented by: Insulin Glargine (Insulin Glargine Solostar 100 Units/Ml 3 Ml Pen) 0 units SC [facility]; Protocol Stop: 03/16/21 20:59 Last Admin: 02/14/21 21:49 Dose: 10 units Documented by: Isosorbide Mononitrate (Isosorbide [place] Extended Rel 30 Mg Tabcr) 30 mg PO MoWeFr@0900 [facility] Stop: 03/16/21 08:59 Last Admin: 02/14/21 08:47 Dose: 30 mg Documented by: Isosorbide Mononitrate (Isosorbide [place] Extended Rel 60 Mg Tabcr) 60 mg PO SuTuThSa@0900 [facility] Stop: 03/17/21 08:59 Last Admin: 02/15/21 08:05 Dose: 60 mg Documented by: Lisinopril (Lisinopril 5 Mg Tab) 5 mg PO DAILY [facility] Stop: 03/16/21 08:59 Last Admin: 02/15/21 08:04 Dose: 5 mg Documented by: Loperamide HCl (Loperamide Hcl 2 Mg Cap) 2 mg PO Q6 PRN PRN Reason: Diarrhea Stop: 03/16/21 12:24 Metoprolol Tartrate (Metoprolol Tartrate 1 Mg/Ml Vial) 5 mg IV Q5M PRN PRN Reason: HTN Stop: 03/16/21 21:00 Last Admin: 02/15/21 08:11 Dose: 5 mg Documented by: Miscellaneous (Carbohydrates For Hypoglycemia ) 15 - 30 gm PO UD PRN PRN Reason: Hypoglycemia Treatment Stop: 03/15/21 23:29 Miscellaneous Information (Pharmacy Glycemic Mgmt Consult) 1 ea N/A UD PRN PRN Reason: Consult Stop: 03/15/21 22:43 Nitroglycerin (Nitroglycerin Sl 0.4 Mg/Tab Tab) 0.4 mg SL Q5M PRN PRN Reason: chest pain Stop: 03/15/21 22:43 Ondansetron HCl (Ondansetron Inj 2 Mg/Ml 2 Ml Vial) 4 mg IV Q6H PRN PRN Reason: Nausea Stop: 03/15/21 22:43 Last Admin: 02/14/21 11:49 Dose: 4 mg Documented by: Polyethylene Glycol (Polyethylene (Miralax) 17 Gm Pack) 17 gm PO DAILY [facility] Stop: 03/16/21 08:59 Last Admin: 02/15/21 08:09 Dose: Not Given Documented by: Propranolol HCl (Propranolol Hcl 60 Mg [place]) 120 mg PO QAM [facility] Stop: 03/16/21 08:59 Last Admin: 02/15/21 08:07 Dose: 120 mg Documented by: PG Care Time/CCT Total # of Minutes Spent Total Time Spent with Patient: Total time spent is greater than 50% in coordination of care (as documented) at patient's floor/unit and/or counseling patient: Coding Level of Care Code 23878 Subseq Hosp Care Lvl 3 Diagnoses Controlled diabetes mellitus with neurologic complication, with long-term current use of insulin E11.49; Z79.4 S/P CABG (coronary artery bypass graft) Z95.1 Paroxysmal atrial fibrillation I48.0 Presence of cardiac pacemaker Z95.0 ESRD (end stage renal disease) on dialysis N18.6; Z99.2 Hyperlipidemia E78.5 Fatigue R53.83 Shortness of breath R06.02 Hypertension I15.0 Hypertension type: renovascular hypertension Hypoxia R09.02 Elevated troponin R77.8 (1) Hypertension Hypertension type: renovascular hypertension Qualified Code(s): I15.0 - Renovascular hypertension
--- NOTE | 2021-02-15 13:52 | Cardiology Progress Note ---
Date of Service February 15, 2021 Assessment & Plan (1) Elevated troponin: (2) Hypoxia: (3) Presence of cardiac pacemaker: (4) Paroxysmal atrial fibrillation: Plan: 1. Elevated troponin: Her troponin remains slightly elevated but has now been dropping consistent with demand ischemia and not an acute ischemic event. I would continue to observe, we can consider invasive evaluation if she develops further indication for ischemia or injury. 2. Hypoxia: It seems likely that her hypoxia is due to the COVID-19, there does not seem to be any evidence for congestive heart failure in her left ventricular function has not declined the point where that is likely to be a cause. 3. Pacemaker: I did not evaluate her pacemaker but on telemetry it appears to be working well and she was recently evaluated in the office. 4. Paroxysmal atrial fibrillation: She has had atrial fibrillation in the past but it has been sometime and there is no evidence of recurrence at this time. I would continue to hold anticoagulation. 5. Hypertension: Her blood pressure has been quite elevated this admission but is improved currently Admission and Anticipated Discharge Date Admission Date: February 13, 2021 Subjective I did not interview her as she is in the Covid unit, I understand that she has not had chest discomfort. Physical Exam Physical Exam: Physical exam as per the primary service, I did not examine the patient as she is in the Covid unit. Results & Data ([facility]) Vital Signs (Past 12 Hours) Vital Signs Temp Pulse Pulse Resp BP BP Pulse Ox 02/15/21 12:23 36.8 C 60 18 137/60 99 02/15/21 09:56 172/63 H 02/15/21 08:17 189/65 H 02/15/21 08:15 60 192/64 H 02/15/21 08:11 60 196/53 H 02/15/21 08:08 37.1 C 60 16 190/62 H 100 02/15/21 08:00 60 02/15/21 04:08 176/88 H 02/15/21 03:31 37.1 C 60 16 187/71 H 99 Laboratory Results Cardiac Enzymes 02/15/21 Range/Units 06:42 Troponin I 0.964 H* (0-0.045) ng/ml Coagulation 02/14/21 02/14/21 02/14/21 Range/Units 19:03 21:19 23:33 APTT > 139.0 H* 112.0 H* 70.9 H* (21.0-31.0) Seconds 02/15/21 Range/Units 06:36 APTT 51.7 H* (21.0-31.0) Seconds Intake and Output 02/14/21 02/15/21 02/15/21 22:59 06:59 14:59 Intake Total 128.483 / 228.483 100 / 228.483 595.2 / 595.2 Output Total 1 / 158 151 / 158 Balance 127.483 / 70.483 -51 / 70.483 595.2 / 595.2 Intake: IV 128.483 / 128.483 0 / 128.483 55.2 / 55.2 Heparin Sodium/Dextrose 25,000 128.483 / 128.483 0 / 128.483 55.2 / 55.2 units In 500 ml @ 400 UNITS/HR 8 mls/hr IV .Q24H [facility] Rx#: [id number] Oral 100 / 100 540 / 540 Output: Urine 150 / 150 # Bowel Movements Other: Hemodialysis Ultrafiltration 1,845 Amount Other Intake Source Sips Weight 57 kg 55.1 kg Weight Measurement Method Built in [facility] Diagnostic Findings Telemetry: Predominantly pacing, occasional supraventricular beats PG Care Time/CCT Total # of Minutes Spent Total Time Spent with Patient: Total time spent is greater than 50% in coordination of care (as documented) at patient's floor/unit and/or counseling patient: Coding Level of Care Code 84556 Subseq Hosp Care Lvl 2 Diagnoses Elevated troponin R77.8 Hypoxia R09.02 Presence of cardiac pacemaker Z95.0 Paroxysmal atrial fibrillation I48.0
[2021-02-15] MEDS: ACETAMINOPHEN 325 MG TAB PO PRN (21:33)
[2021-02-15] MEDS: INSULIN GLARGINE SOLOSTAR 100 UNITS/ML 3 ML PEN SC SCH (22:59)
[2021-02-16] MEDS: HEPARIN SODIUM/DEXTROSE 25,000 UNITS/500 ML BAG IV SCH (06:10)
[2021-02-16] MEDS: INSULIN ASPART 100 UNITS/ML 3 ML PEN SC SCH ×4 (09:27→21:46)
[2021-02-16] MEDS: ACETAMINOPHEN 325 MG TAB PO PRN (09:35)
[2021-02-16] MEDS: CALCIUM ACETATE 667 MG CAP/TAB PO SCH ×3 (09:38→18:48)
[2021-02-16] MEDS: ASPIRIN 81 MG ECTAB PO SCH (09:39)
[2021-02-16] MEDS: EZETIMIBE 10 MG TABLET PO SCH (09:39)
[2021-02-16] MEDS: amLODIPine BESYLATE 5 MG TAB PO SCH (09:39)
[2021-02-16] MEDS: FUROSEMIDE 40 MG/4 ML VIAL IV SCH (09:40)
[2021-02-16] MEDS: ISOSORBIDE MONO EXTENDED REL 30 MG TABCR PO SCH (09:41)
[2021-02-16] MEDS: POLYETHYLENE (MIRALAX) 17 GM PACK PO SCH (09:41)
[2021-02-16] MEDS: PROPRANOLOL HCL 60 MG LA CAP PO SCH (09:41)
[2021-02-16] MEDS: lisinopril 5 MG TAB PO SCH (09:41)
[2021-02-16] MEDS ORDERED: guaiFENesin/DEXTROM SYRUP 100MG/10MG 5ML UDC PO PRN (10:27)
[2021-02-16] MEDS ORDERED: traMADol HCL 50 MG TABLET PO PRN (10:27)
--- NOTE | 2021-02-16 10:42 | Hospitalist Progress Note ---
Date of Service February 16, 2021 Assessment & Plan (1) Controlled diabetes mellitus with neurologic complication, with long-term current use of insulin: Plan: 86-year-old female with a medical history pertinent for coronary artery disease status post CABG, IDDM, cardiac myxoma, paroxysmal A. fib and sick sinus syndrome status post pacemaker installation presented to the emergency department for complaints of generalized fatigue and shortness of breath. 1. Hypoxia due to acute diastolic heart failure, EF is preserved try to titrate off oxygen check echo - EF preserved at 55%, severe MR which was known, no new wall motion changes continue propranolol/lisinopril/isosorbide mononitrate given in ER Daily weight/monitor I's and O's examines euvolemic today, plan for HD with UF 2. Elevated troponin Troponin of 0.644 in ER with abnormal EKG, up to 1.2 02/14, no chest pain heparin drip for 48-72 hours, stop this morning Sublingual nitro as needed for chest pain, no chest pain Cardiology consult, no plans for cath - echo: EF 55% 3. COVID-19 Positive PCR on 02/13 Patient has been vaccinated x2 We will defer steroid treatment at this time as I do not suspect her oxygen needs are from infection - treat with cough suppressants, flutter valve Coronary artery disease status post CABG High risk for AK in setting of history and IDDM Continue daily aspirin, sublingual nitro for chest pain Continue ezetimibe daily Hypertension Continue parenteral 120 mg ER every morning, lisinopril 5 mg daily, Takes isosorbide mononitrate alternating 60 and 30 mg every other day. Insulin-dependent diabetes mellitus Patient takes 35 units of Toujeo U3 100 insulin daily as well as sliding scale insulin aspart with meals (15, 18, 25 with each meal respectively limit 60 units/day) Pharmacy glycemic consult placed Last A1c 01/26/2021 5.7 ESRD Continue dialysis Sunday Nephrology consult - HD on 02/14, plan for HD today Anxiety Continue home alprazolam 1 mg p.o. at bedtime as needed DVT ppx: heparin drip FEN/GI: heart healthy, low salt, DM2 diet Bowel regimen: miralax PRN Code Status: Full Code Dispo: PCU (2) S/P CABG (coronary artery bypass graft): (3) Paroxysmal atrial fibrillation: (4) Presence of cardiac pacemaker: (5) ESRD (end stage renal disease) on dialysis: (6) Hyperlipidemia: (7) Fatigue: (8) Shortness of breath: (9) Hypertension: (10) Hypoxia: (11) Elevated troponin: Admission and Anticipated Discharge Date Admission Date: February 13, 2021 Subjective patient still not moving much, very weak, says her low back hurts she says she has some chronic pain, take Tylenol says she was falling at home at times eating a little better, drinking, has her teeth now plan for HD today breathing is stable on 2L, 100%, still with a cough, asking for something to help very weak and frail Review of Systems Review of Systems: All systems reviewed & are unremarkable except as noted in Subjective Constitutional: + fatigue and + weakness; no fever Respiratory: + cough and + dyspnea on exertion Musculoskeletal: + back pain Physical Exam Physical Exam: General: well developed, well nourished, elderly frail female, no acute distress, comfortable Neck: supple, trachea midline, normal thyroid Lungs: + rhonchi bilaterally, + cough, normal respiratory effort, no accessory muscle use, no distress Heart: regular S1 and S2, no murmur, peripheral pulses normal, capillary refill normal, no edema Abdomen: soft, NT, ND, + BS, no hepatomegaly, normal to percussion Extremities: normal in appearance, no cyanosis, no petechiae, strength is 5/5 bilaterally Neuro: awake, cooperative, moves all extremities, no focal motor deficits, CN II-XII intact, sensation in extremities intact, normal speech Skin: warm, dry, no rash, normal turgor Psych: Awake, alert oriented x 3, euthymic affect Results & Data Results & Data ([facility]) Vital Signs (Past 12 Hours) Vital Signs Temp Pulse Pulse Pulse Resp BP Pulse Ox 02/16/21 07:44 37.1 C 64 23 176/63 H 100 02/16/21 03:43 36.9 C 62 18 161/57 H 99 02/15/21 23:46 36.8 C 60 19 144/55 H 100 02/15/21 23:40 63 Laboratory Results Laboratory Results - last 24 hr 02/15/21 02/15/21 02/16/21 16:50 20:29 07:42 POC Glucose 202 H 169 H 198 H 02/16/21 11:35 POC Glucose 208 H Medications Administered Current Inpatient Medications Acetaminophen (Acetaminophen 325 Mg Tab) 650 mg PO Q4H PRN PRN Reason: Pain or Fever Stop: 03/15/21 22:43 Last Admin: 02/16/21 09:35 Dose: 650 mg Documented by: Alprazolam (Alprazolam 0.5 Mg Tablet) 1 mg PO HS PRN PRN Reason: Anxiety Stop: 03/15/21 22:43 Amlodipine Besylate (Amlodipine Besylate 5 Mg Tab) 10 mg PO QAM [facility] Stop: 03/17/21 08:59 Last Admin: 02/16/21 09:39 Dose: 10 mg Documented by: Aspirin (Aspirin 81 Mg Ectab) 81 mg PO DAILY [facility] Stop: 03/16/21 08:59 Last Admin: 02/16/21 09:39 Dose: 81 mg Documented by: Benzonatate (Benzonatate 100 Mg Capsule) 100 mg PO TID [facility] Stop: 03/18/21 13:59 Bisacodyl (Bisacodyl 10 Mg Supp) 10 mg [place] DAILY PRN PRN Reason: Constipation Stop: 03/16/21 02:50 Calcium Acetate (Calcium Acetate 667 Mg Cap/Tab) 667 mg PO TIDM [facility] Stop: 03/16/21 07:59 Last Admin: 02/16/21 12:40 Dose: 667 mg Documented by: Clobetasol Propionate (Clobetasol Propionate 0.05% Oint 15 Gm Tube) 1 appln EXT BID PRN PRN Reason: Skin Irritation Stop: 03/15/21 23:02 Dextrose (Dextrose 50% 50 Ml Syringe) 25 - 50 ml IV UD PRN; Protocol PRN Reason: Hypoglycemia Protocol Stop: 03/15/21 23:29 Digoxin (Digoxin 0.125 Mg Tab) 0.125 mg PO MoWeFr@1600 [facility] Stop: 03/16/21 15:59 Last Admin: 02/14/21 21:14 Dose: Not Given Documented by: Ezetimibe (Ezetimibe 10 Mg Tablet) 10 mg PO DAILY [facility] Stop: 03/16/21 08:59 Last Admin: 02/16/21 09:39 Dose: 10 mg Documented by: Glucagon (Glucagon For Inj 1 Mg Vial) 1 mg IM UD PRN; Protocol PRN Reason: Hypoglycemia Protocol Stop: 03/15/21 23:29 Glucose (Glucose 40% Gel 15 Gm Tube) 15 - 30 gm PO UD PRN; Protocol PRN Reason: Hypoglycemia Protocol Stop: 03/15/21 23:29 Glucose (Glucose 10 Tabs/Tube) 4 - 8 tabs PO UD PRN; Protocol PRN Reason: Hypoglycemia Protocol Stop: 03/15/21 23:29 Guaifenesin/Dextromethorphan (Guaifenesin/Dextrom Syrup 100mg/10mg 5ml Udc) 5 ml PO Q6H PRN PRN Reason: Cough Stop: 03/18/21 10:26 Insulin Aspart (Insulin Aspart 100 Units/Ml 3 Ml Pen) 0 units SC [facility]; Protocol Stop: 03/15/21 23:29 Last Admin: 02/16/21 12:30 Dose: 3 units Documented by: Insulin Glargine (Insulin Glargine Solostar 100 Units/Ml 3 Ml Pen) 0 units SC [facility]; Protocol Stop: 03/16/21 20:59 Last Admin: 02/15/21 22:59 Dose: 10 units Documented by: Isosorbide Mononitrate (Isosorbide [place] Extended Rel 30 Mg Tabcr) 30 mg PO MoWeFr@0900 [facility] Stop: 03/16/21 08:59 Last Admin: 02/16/21 09:41 Dose: 30 mg Documented by: Isosorbide Mononitrate (Isosorbide [place] Extended Rel 60 Mg Tabcr) 60 mg PO SuTuThSa@0900 [facility] Stop: 03/17/21 08:59 Last Admin: 02/15/21 08:05 Dose: 60 mg Documented by: Lisinopril (Lisinopril 20 Mg Tab) 20 mg PO DAILY [facility] Stop: 03/19/21 08:59 Loperamide HCl (Loperamide Hcl 2 Mg Cap) 2 mg PO Q6 PRN PRN Reason: Diarrhea Stop: 03/16/21 12:24 Metoprolol Tartrate (Metoprolol Tartrate 1 Mg/Ml Vial) 5 mg IV Q5M PRN PRN Reason: HTN Stop: 03/16/21 21:00 Last Admin: 02/15/21 08:11 Dose: 5 mg Documented by: Miscellaneous (Carbohydrates For Hypoglycemia ) 15 - 30 gm PO UD PRN PRN Reason: Hypoglycemia Treatment Stop: 03/15/21 23:29 Miscellaneous Information (Pharmacy Glycemic Mgmt Consult) 1 ea N/A UD PRN PRN Reason: Consult Stop: 03/15/21 22:43 Nitroglycerin (Nitroglycerin Sl 0.4 Mg/Tab Tab) 0.4 mg SL Q5M PRN PRN Reason: chest pain Stop: 03/15/21 22:43 Ondansetron HCl (Ondansetron Inj 2 Mg/Ml 2 Ml Vial) 4 mg IV Q6H PRN PRN Reason: Nausea Stop: 03/15/21 22:43 Last Admin: 02/14/21 11:49 Dose: 4 mg Documented by: Polyethylene Glycol (Polyethylene (Miralax) 17 Gm Pack) 17 gm PO DAILY [facility] Stop: 03/16/21 08:59 Last Admin: 02/16/21 09:41 Dose: 17 gm Documented by: Propranolol HCl (Propranolol Hcl 60 Mg [place]) 120 mg PO QAM [facility] Stop: 03/16/21 08:59 Last Admin: 02/16/21 09:41 Dose: 120 mg Documented by: Tramadol HCl (Tramadol Hcl 50 Mg Tablet) 50 mg PO Q8H PRN PRN Reason: Pain Stop: 03/18/21 10:26 Last Admin: 02/16/21 12:38 Dose: 50 mg Documented by: PG Care Time/CCT Total # of Minutes Spent Total Time Spent with Patient: Total time spent is greater than 50% in coordination of care (as documented) at patient's floor/unit and/or counseling patient: Coding Level of Care Code 11478 Subseq Hosp Care Lvl 2 Diagnoses Controlled diabetes mellitus with neurologic complication, with long-term current use of insulin E11.49; Z79.4 S/P CABG (coronary artery bypass graft) Z95.1 Paroxysmal atrial fibrillation I48.0 Presence of cardiac pacemaker Z95.0 ESRD (end stage renal disease) on dialysis N18.6; Z99.2 Hyperlipidemia E78.5 Fatigue R53.83 Shortness of breath R06.02 Hypertension I15.0 Hypertension type: renovascular hypertension Hypoxia R09.02 Elevated troponin R77.8 (1) Hypertension Hypertension type: renovascular hypertension Qualified Code(s): I15.0 - Renovascular hypertension
--- NOTE | 2021-02-16 10:49 | Nephrology Progress Note ---
Date of Service February 16, 2021 Assessment & Plan (1) ESRD (end stage renal disease) on dialysis: (2) Hypertension: (3) Diabetes mellitus: (4) Hyperlipidemia: (5) Hypoxia: (6) Elevated troponin: Plan: End-stage renal disease, on hemodialysis, admitted with COVID pneumonia. She was also noted to have mildly elevated troponin although no chest pain or shortness of breath. She was vaccinated for COVID before. Currently volume status, electrolyte acceptable. BP has been high. --Dialysis today as her regular schedule. --increase lisinopril to 20 mg p.o. daily, discontinue IV Lasix. -- encourage p.o. intake -- Dose medications for GFR less than 10 -- continue on phosphate binder and renal vitamin -- on boost nutritional supplement 1 can 3 times a day will follow Admission and Anticipated Discharge Date Admission Date: February 13, 2021 Tashi Vick was seen in her room this morning. She still feel tired but started to eat little better, no shortness of breath or chest pain. Blood pressure has been running high. Review of Systems Review of Systems: Detailed review of system was otherwise negative except mentioned above Physical Exam Constitutional: WD/WN, vitals as above + ill appearing; no acute distress Eyes: + anicteric sclerae ENMT: Ears: no hearing impairment Neck: normal visual inspection Respiratory: normal respiratory effort; no respiratory distress Auscult ation: lungs clear to auscultation bilaterally Cardiovascular: Rate/Rhythm: regular rate and regular rhythm Extremities: no edema Neurologic: no focal motor deficits and not confused Psychiatric: Orientation: alert and oriented x 3 Results & Data ([facility]) Vital Signs (Past 12 Hours) Vital Signs Temp Pulse Pulse Pulse Resp BP Pulse Ox 02/16/21 07:44 37.1 C 64 23 176/63 H 100 02/16/21 03:43 36.9 C 62 18 161/57 H 99 02/15/21 23:46 36.8 C 60 19 144/55 H 100 02/15/21 23:40 63 PG Care Time/CCT Total # of Minutes Spent Total Time Spent with Patient: Total time spent is greater than 50% in coordination of care (as documented) at patient's floor/unit and/or counseling patient: Coding Level of Care Code 88560 Subseq Hosp Care Lvl 2 Diagnoses ESRD (end stage renal disease) on dialysis N18.6; Z99.2 Hypertension I15.0 Hypertension type: renovascular hypertension Diabetes mellitus E11.9 Hyperlipidemia E78.5 Hypoxia R09.02 Elevated troponin R77.8 (1) Hypertension Hypertension type: renovascular hypertension Qualified Code(s): I15.0 - Renovascular hypertension
--- NOTE | 2021-02-16 14:42 | Pharmacy Report ---
Pharmacy Glycemic Short Note 2 - Date of Service February 16, 2021 - Glycemic Short BSG Results (Last 24 hours): 02/15/21 02/15/21 02/16/21 16:50 20:29 07:42 POC Glucose 202 H 169 H 198 H 02/16/21 11:35 POC Glucose 208 H OUTPATIENT ANTIDIABETIC REGIMEN: * Lantus 35 units HS * Novolog 15/18/25 units * HbA1c: 5.7%, though unreliable in the setting of ESRD on HD ASSESSMENT: 02/16/21: * Ms Dominguez rec'd 15 units of insulin yesterday, with relatively well-controlled BSGs (150, 163, 202, 169). * Fasting BSG was elevated this morning, so Lantus will be increased this evening (~20%). * Carb ratio tightened today to provide better control throughout the day, however, patient appears to have minimal PO intake. 02/14 * Ms Dominguez is an 86 y/o F with T2DM on insulin and HD who presents with COVID. Patient is not receiving steroids. * During last hospitalization, patient was maintained on Lantus 10-15 units nightly with Novolog CF 40 CR 13. * Patient given Lantus 25 units last night. * BSGs yesterday were 166 mg/dL and today are 172 -152 mg/dL. Patient has no appetite. * Will reduce Lantus to scale used during last hospitalization stu in light of decreased PO intake. PLAN FOR INPATIENT GLYCEMIC CONTROL: * Hold outpatient oral diabetes medications * Basal insulin * Lantus 12-15 units SQ HS based upon BSG * Bolus insulin * NovoLog per scale ACHS or Q6hrs while NPO * Goal Range: Low 120 mg/dL - High 150 mg/dL * Correction Factor: 30 mg/dL/unit * Nutritional / Prandial insulin per carb ratio of 1 unit per 8 grams CHO consumed PLAN FOR DISCHARGE: * Patient's A1c = 5.7% today. * However, this result is likely somewhat unreliable in ESRD patients d/t interactions between the A1c analyzing technique and high levels of urea in ESRD, reduced RBC life span, iron deficiency anemia, and EPO administration. HbA1c > 7.5% in ESRD patient may overestimate the extent of hyperglycemia in ESRD patients. * Recommend continuing home glycemic regimen as long as patient is not having any hypoglycemic episodes. * Test blood sugars at least three times daily (since receiving Novolog three times daily) and work with provider to optimize glycemic regimen.
[2021-02-16] MEDS: BENZONATATE 100 MG CAPSULE PO SCH ×2 (16:18→21:14)
[2021-02-16] MEDS: DIGOXIN 0.125 MG TAB PO SCH (16:18)
[2021-02-16] MEDS: INSULIN GLARGINE SOLOSTAR 100 UNITS/ML 3 ML PEN SC SCH (21:46)
[2021-02-17] MEDS: ACETAMINOPHEN 325 MG TAB PO PRN ×2 (04:05→18:35)
[2021-02-17 07:27] LABS: Hematocrit (blood only) 30.6 % (37-47); Hemoglobin 9.9 g/dL (12.0-16.0); Mean Corpuscular Hemoglobin 32.4 pg (25-34); Mean Corpuscular Hgb Conc 32.4 g/dL (32-36); Mean Platelet Volume 9.4 fL (7.4-10.4); Platelet Count 126 K/uL (130-400); RDW Coefficient of Variation 15.4 % (11.5-14.5); RDW Standard Deviation 56.1 fL (36.4-46.3); Red Blood Count 3.06 M/uL (4.2-5.4)
[2021-02-17] MEDS ORDERED: DOXYCYCLINE HYCLATE 100 MG in DEXTROSE 5% 100 ML IV SCH (08:00)
[2021-02-17 08:02] LABS: Albumin Level 2.4 gm/dl (3.4-5.0); BUN Creatinine Ratio 13.3 (10-20); Calcium 8.3 mg/dl (8.5-10.1); Creatinine Clr Calc Pharmacy 7.3 ml/min; Est GFR (African American) 11.1 ml/min; Est GFR (Non-African American) 9.6 ml/min; Potassium 4.4 mmol/L (3.5-5.1)
--- NOTE | 2021-02-17 08:53 | XRay Report ---
XR chest 1V portable HISTORY: 86 years-old Female fever acute fever COMPARISON: Chest radiograph 02/13/2021 TECHNIQUE: Portable AP view of the chest FINDINGS: Cardiac silhouette is enlarged. Prior median sternotomy. Left subclavian pacer. Atherosclerotic plaqu e of the thoracic aorta. No pneumothorax. Trace right and small left pleural effusions. Pulmonary vas cular congestion with interstitial coarsening. No significant change from comparison. Mild left lung base opacities persist. Degenerative changes of the shoulders and spine with right shoulder rotator c uff calcific tendinosis. IMPRESSION: 1. Cardiomegaly with pulmonary vascular congestion and interstitial coarsening redemonstrated suggest sofía of pulmonary edema. 2. Trace right and small left pleural effusions with persistent left lung base opacities. ACT 112: Negative or not required by law. The above report was generated using voice recognition software. It may contain grammatical, syntax o r spelling errors. Electronically signed by: Ryan Braun M.D. 02/17/2021 8:51 AM
--- NOTE | 2021-02-17 09:33 | Nephrology Progress Note ---
Date of Service February 17, 2021 Assessment & Plan (1) ESRD (end stage renal disease) on dialysis: (2) Hypertension: (3) Diabetes mellitus: (4) Hyperlipidemia: (5) Hypoxia: (6) Elevated troponin: Plan: End-stage renal disease, on hemodialysis, admitted with COVID pneumonia. She was also noted to have mildly elevated troponin although no chest pain or shortness of breath. She was vaccinated for COVID before. Currently volume status, electrolyte acceptable. BP improved after UF with HD yesterday --continue lisinopril to 20 mg p.o. daily, Amlodipine -- encourage p.o. intake -- Dose medications for GFR less than 10 -- continue on phosphate binder and renal vitamin -- on boost nutritional supplement 1 can 3 times a day --HD tomorrow will follow Admission and Anticipated Discharge Date Admission Date: February 13, 2021 Subjective Nava has been doing well, no acute overnight events. had HD yesterday, tolerated well, BP stable. Physical Exam Physical Exam: Record reviewed, direct physical exam was not done today due to COVID isolation. Results & Data ([facility]) Vital Signs (Past 12 Hours) Vital Signs Temp Pulse Pulse Resp BP Pulse Ox Pulse Ox 02/17/21 07:32 36.7 C 62 17 135/58 L 96 02/17/21 03:21 38.2 C H 02/17/21 03:14 60 16 169/73 H 95 02/16/21 23:59 60 02/16/21 22:00 98 PG Care Time/CCT Total # of Minutes Spent Total Time Spent with Patient: Total time spent is greater than 50% in coordination of care (as documented) at patient's floor/unit and/or counseling patient: Coding Level of Care Code 79416 Subseq Hosp Care Lvl 2 Diagnoses ESRD (end stage renal disease) on dialysis N18.6; Z99.2 Hypertension I15.0 Hypertension type: renovascular hypertension Diabetes mellitus E11.9 Hyperlipidemia E78.5 Hypoxia R09.02 Elevated troponin R77.8 (1) Hypertension Hypertension type: renovascular hypertension Qualified Code(s): I15.0 - Renovascular hypertension
[2021-02-17] MEDS: CEFEPIME 1,000 MG in SYRINGE 0 ML IV SCH (09:57)
[2021-02-17] MEDS: ASPIRIN 81 MG ECTAB PO SCH (09:58)
[2021-02-17] MEDS: CALCIUM ACETATE 667 MG CAP/TAB PO SCH ×3 (09:58→18:18)
[2021-02-17] MEDS: EZETIMIBE 10 MG TABLET PO SCH (09:58)
[2021-02-17] MEDS: amLODIPine BESYLATE 5 MG TAB PO SCH (09:59)
[2021-02-17] MEDS: BENZONATATE 100 MG CAPSULE PO SCH ×3 (09:59→20:44)
[2021-02-17] MEDS: POLYETHYLENE (MIRALAX) 17 GM PACK PO SCH (09:59)
[2021-02-17] MEDS: ISOSORBIDE MONO EXTENDED REL 60 MG TABCR PO SCH (10:00)
[2021-02-17] MEDS: PROPRANOLOL HCL 60 MG LA CAP PO SCH (10:00)
[2021-02-17] MEDS: lisinopril 20 MG TAB PO SCH (10:00)
[2021-02-17] MEDS: INSULIN ASPART 100 UNITS/ML 3 ML PEN SC SCH ×4 (10:08→20:44)
--- NOTE | 2021-02-17 10:45 | Hospitalist Progress Note ---
Date of Service February 17, 2021 Assessment & Plan (1) Aspiration pneumonia: Plan: CT chest shows consolidation in lung bases, more on left (she tends to lean to left side) will make her NPO, can have medications she is incredibly weak, difficult time coughing up anything she may aspiration, rattle in back of her throat will start on Cefepime and Flagyl ask speech therapy to evaluate patient shook her head when I asked her about intubation and ventilation spoke with grand daughter Dinorah, she agreed with changing her to DNR she said that in the past the patient had selected DNR (2) Hypoxia: Plan: acute hypoxic respiratory failure stable on 2L, 99% she is very weak, minimal strength to cough and get up phlegm (3) Controlled diabetes mellitus with neurologic complication, with long-term current use of insulin: Plan: 1. Hypoxia due to acute diastolic heart failure, EF is preserved try to titrate off oxygen check echo - EF preserved at 55%, severe MR which was known, no new wall motion changes continue propranolol/lisinopril/isosorbide mononitrate given in ER Daily weight/monitor I's and O's examines euvolemic today, plan for HD with UF 2. Elevated troponin Troponin of 0.644 in ER with abnormal EKG, up to 1.2 02/14, no chest pain heparin drip for 48-72 hours, stop this morning Sublingual nitro as needed for chest pain, no chest pain Cardiology consult, no plans for cath - echo: EF 55% 3. COVID-19 Positive PCR on 02/13 Patient has been vaccinated x2 We will defer steroid treatment at this time as I do not suspect her oxygen needs are from infection - treat with cough suppressants, flutter valve CT chest today showed no signs of viral pneumonitis Coronary artery disease status post CABG High risk for [place] in setting of history and IDDM Continue daily aspirin, sublingual nitro for chest pain Continue ezetimibe daily Hypertension Continue parenteral 120 mg ER every morning, lisinopril 5 mg daily, Takes isosorbide mononitrate alternating 60 and 30 mg every other day. Insulin-dependent diabetes mellitus Patient takes 35 units of Toujeo U3 100 insulin daily as well as sliding scale insulin aspart with meals (15, 18, 25 with each meal respectively limit 60 units/day) Pharmacy glycemic consult placed Last A1c 01/26/2021 5.7 ESRD Continue dialysis Sunday Nephrology consult - HD on 02/14, plan for HD today Anxiety Continue home alprazolam 1 mg p.o. at bedtime as needed DVT ppx: heparin drip FEN/GI: heart healthy, low salt, DM2 diet Bowel regimen: miralax PRN Code Status: Full Code Dispo: PCU (4) Fatigue: (5) Shortness of breath: (6) ESRD (end stage renal disease) on dialysis: Plan: continue dialysis on a MWF schedule, plan for tomorrow (7) Elevated troponin: (8) S/P CABG (coronary artery bypass graft): (9) Paroxysmal atrial fibrillation: (10) Presence of cardiac pacemaker: (11) Hyperlipidemia: (12) Hypertension: Admission and Anticipated Discharge Date Admission Date: February 13, 2021 Subjective patient continues to be very weak and lethargic she has a wet, weak cough intermittently but not short of breath she denies any chest pain or pressure she had a fever this morning which is new, CXR without obvious infiltrate, does not make urine to check a UA not eating much at all, she claims she has no issues swallowing she is 99-100% on 2L, would be stable on room air she says her back does not hurt this morning I tried to address code status with patient, very tired and would not answer CT chest shows bibasilar consolidation, more on left side (she tends to lean to left side) start on Cefepime and Flagyl, check MRSA swab prior to giving Vanco given that it would be difficult to dose with ESRD CT lumbar spine: no osteomyelitis or fractures CT abdomen/pelvis: shows fecal retention, colitis/proctitis I spoke with the patient's grand daughter Dinorah, discussed findings of aspira tion pneumonia, she was familiar with this, says she gets it once a year she said that the past 6 months have been difficult for the patient, she has been getting weaker she still lives at home but family and friends bring her meals, she has transportation to HD, her grand daughter will bathe her once a week we discussed the fecal impaction, she says this happens quite often, she has hard stools we discussed whether or not the patient has a living will, she says she does not believe she has a living will she said that the patient's daughter and two sons have medical power of a personal injury attorney, they are all sick with COVID I tried calling the daughter Maren two times on each of her two phone numbers, no answer I went back to see the patient this afternoon, extremely weak and frail, oxygen turned up to 4L but she is 98% she woke up, I discussed the aspiration pneumonia, I asked her if she would want intubated and mechanical ventilation if her breathing deteriorated she closed her eyes and then shook her head I tried calling the daughter again, still no answer spoke again with grand daughter Dinorah, she mentioned that in the past when she came for procedures the patient had selected DNR I told Dinorah that I would change her to DNR but I asked her to tell her mother, she said she agreed Review of Systems Review of Systems: All systems reviewed & are unremarkable except as noted in Subjective Constitutional: + fever, + fatigue and + weakness Respiratory: + cough and + dyspnea Cardiovascular: no chest pain Musculoskeletal: + muscle weakness; no back pain and no neck pain Physical Exam Physical Exam: General: well developed, thin, elderly frail female, no distress Neck: supple, trachea midline, normal thyroid Lungs: + rhonchi bilaterally, + cough (very weak), normal respiratory effort, no accessory muscle use, no distress Heart: regular S1 and S2, no murmur, peripheral pulses normal, capillary refill normal, no edema Abdomen: soft, NT, ND, + BS, no hepatomegaly, normal to percussion Extremities: normal in appearance, no cyanosis, no petechiae, strength is greatly diminished, cannot even sit up on her own Neuro: lethargic but wakes up, cooperative, moves all extremities, no focal motor deficits, CN II-XII intact Skin: warm, dry, no rash, normal turgor Psych: lethargic, oriented to person and place, cooperative Results & Data Results & Data ([facility]) Vital Signs (Past 12 Hours) Vital Signs Temp Pulse Pulse Resp BP Pulse Ox 02/17/21 07:32 36.7 C 62 17 135/58 L 96 02/17/21 03:21 38.2 C H 02/17/21 03:14 60 16 169/73 H 95 02/16/21 23:59 60 Laboratory Results Laboratory Results - last 24 hr 02/16/21 02/16/21 02/16/21 11:35 18:46 20:14 WBC RBC Hgb Hct MCV MCH MCHC RDW Std Deviation RDW Coeff of Bjorn Plt Count MPV Sodium Potassium Chloride Carbon Dioxide Anion Gap BUN Creatinine Est Cr Clr Drug Dosing Est GFR ( Amer) Est GFR (Non-Af Amer) BUN/Creatinine Ratio Glucose POC Glucose 208 H 147 H 195 H Calcium Phosphorus Albumin 02/17/21 02/17/21 02/17/21 06:51 06:51 07:37 WBC 11.30 H RBC 3.06 L Hgb 9.9 L Hct 30.6 L MCV 100.0 MCH 32.4 MCHC 32.4 RDW Std Deviation 56.1 H RDW Coeff of Bjorn 15.4 H Plt Count 126 L MPV 9.4 Sodium 136 Potassium 4.4 Chloride 99 Carbon Dioxide 28 Anion Gap 9.0 BUN 53 H Creatinine 3.95 H Est Cr Clr Drug Dosing 7.3 Est GFR ( Amer) 11.1 Est GFR (Non-Af Amer) 9.6 BUN/Creatinine Ratio 13.3 Glucose 150 H POC Glucose 159 H Calcium 8.3 L Phosphorus 5.0 H Albumin 2.4 L Medications Administered Current Inpatient Medications Acetaminophen (Acetaminophen 325 Mg Tab) 650 mg PO Q4H PRN PRN Reason: Pain or Fever Stop: 03/15/21 22:43 Last Admin: 02/17/21 04:05 Dose: 650 mg Documented by: Alprazolam (Alprazolam 0.5 Mg Tablet) 1 mg PO HS PRN PRN Reason: Anxiety Stop: 03/15/21 22:43 Amlodipine Besylate (Amlodipine Besylate 5 Mg Tab) 10 mg PO QAM [facility] Stop: 03/17/21 08:59 Last Admin: 02/17/21 09:59 Dose: 10 mg Documented by: Aspirin (Aspirin 81 Mg Ectab) 81 mg PO DAILY [facility] Stop: 03/16/21 08:59 Last Admin: 02/17/21 09:58 Dose: 81 mg Documented by: Benzonatate (Benzonatate 100 Mg Capsule) 100 mg PO TID [facility] Stop: 03/18/21 13:59 Last Admin: 02/17/21 09:59 Dose: 100 mg Documented by: Bisacodyl (Bisacodyl 10 Mg Supp) 10 mg SC DAILY PRN PRN Reason: Constipation Stop: 03/16/21 02:50 Calcium Acetate (Calcium Acetate 667 Mg Cap/Tab) 667 mg PO TIDM [place] Stop: 03/16/21 07:59 Last Admin: 02/17/21 09:58 Dose: Not Given Documented by: Clobetasol Propionate (Clobetasol Propionate 0.05% Oint 15 Gm Tube) 1 appln EXT BID PRN PRN Reason: Skin Irritation Stop: 03/15/21 23:02 Dextrose (Dextrose 50% 50 Ml Syringe) 25 - 50 ml IV UD PRN; Protocol PRN Reason: Hypoglycemia Protocol Stop: 03/15/21 23:29 Digoxin (Digoxin 0.125 Mg Tab) 0.125 mg PO MoWeFr@1600 [facility] Stop: 03/16/21 15:59 Last Admin: 02/16/21 16:18 Dose: 0.125 mg Documented by: Ezetimibe (Ezetimibe 10 Mg Tablet) 10 mg PO DAILY [place] Stop: 03/16/21 08:59 Last Admin: 02/17/21 09:58 Dose: 10 mg Documented by: Epoetin Arik (Epoetin Arik 10,000 Units/Ml Vial) 10,000 units IV 1000 [facility] Stop: 02/18/21 16:00 Glucagon (Glucagon For Inj 1 Mg Vial) 1 mg IM UD PRN; Protocol PRN Reason: Hypoglycemia Protocol Stop: 03/15/21 23:29 Glucose (Glucose 40% Gel 15 Gm Tube) 15 - 30 gm PO UD PRN; Protocol PRN Reason: Hypoglycemia Protocol Stop: 03/15/21 23:29 Glucose (Glucose 10 Tabs/Tube) 4 - 8 tabs PO UD PRN; Protocol PRN Reason: Hypoglycemia Protocol Stop: 03/15/21 23:29 Guaifenesin/Dextromethorphan (Guaifenesin/Dextrom Syrup 100mg/10mg 5ml Udc) 5 ml PO Q6H PRN PRN Reason: Cough Stop: 03/18/21 10:26 Cefepime HCl 1,000 mg/ Syringe 11.3 mls @ 5.5 mls/min IV Q24H [facility]; Protocol Stop: 02/24/21 09:59 Last Admin: 02/17/21 09:57 Dose: 5.5 mls/min Documented by: Doxycycline Hyclate 100 mg/ (Dextrose) 110 mls @ 50 mls/hr IV Q12H [facility] Stop: 02/24/21 07:29 Last Admin: 02/17/21 09:57 Dose: 50 mls/hr Documented by: Insulin Aspart (Insulin Aspart 100 Units/Ml 3 Ml Pen) 0 units SC ACHS [facility]; Protocol Stop: 03/15/21 23:29 Last Admin: 02/17/21 10:08 Dose: 1 units Documented by: Insulin Glargine (Insulin Glargine Solostar 100 Units/Ml 3 Ml Pen) 0 units SC HS [facility]; Protocol Stop: 03/16/21 20:59 Last Admin: 02/16/21 21:46 Dose: 15 units Documented by: Isosorbide Mononitrate (Isosorbide Cloud Extended Rel 30 Mg Tabcr) 30 mg PO MoWeFr@0900 [facility] Stop: 03/16/21 08:59 Last Admin: 02/16/21 09:41 Dose: 30 mg Documented by: Isosorbide Mononitrate (Isosorbide Cloud Extended Rel 60 Mg Tabcr) 60 mg PO SuTuThSa@0900 [facility] Stop: 03/17/21 08:59 Last Admin: 02/17/21 10:00 Dose: 60 mg Documented by: Lisinopril (Lisinopril 20 Mg Tab) 20 mg PO DAILY [facility] Stop: 03/19/21 08:59 Last Admin: 02/17/21 10:00 Dose: 20 mg Documented by: Loperamide HCl (Loperamide Hcl 2 Mg Cap) 2 mg PO Q6 PRN PRN Reason: Diarrhea Stop: 03/16/21 12:24 Metoprolol Tartrate (Metoprolol Tartrate 1 Mg/Ml Vial) 5 mg IV Q5M PRN PRN Reason: HTN Stop: 03/16/21 21:00 Last Admin: 02/15/21 08:11 Dose: 5 mg Documented by: Miscellaneous (Carbohydrates For Hypoglycemia ) 15 - 30 gm PO UD PRN PRN Reason: Hypoglycemia Treatment Stop: 03/15/21 23:29 Miscellaneous Information (Pharmacy Glycemic Mgmt Consult) 1 ea N/A UD PRN PRN Reason: Consult Stop: 03/15/21 22:43 Nitroglycerin (Nitroglycerin Sl 0.4 Mg/Tab Tab) 0.4 mg SL Q5M PRN PRN Reason: chest pain Stop: 03/15/21 22:43 Ondansetron HCl (Ondansetron Inj 2 Mg/Ml 2 Ml Vial) 4 mg IV Q6H PRN PRN Reason: Nausea Stop: 03/15/21 22:43 Last Admin: 02/14/21 11:49 Dose: 4 mg Documented by: Polyethylene Glycol (Polyethylene (Miralax) 17 Gm Pack) 17 gm PO DAILY [place] Stop: 03/16/21 08:59 Last Admin: 02/17/21 09:59 Dose: Not Given Documented by: Propranolol HCl (Propranolol Hcl 60 Mg La Cap) 120 mg PO QAM [place] Stop: 03/16/21 08:59 Last Admin: 02/17/21 10:00 Dose: 120 mg Documented by: Tramadol HCl (Tramadol Hcl 50 Mg Tablet) 50 mg PO Q8H PRN PRN Reason: Pain Stop: 03/18/21 10:26 Last Admin: 02/16/21 12:38 Dose: 50 mg Documented by: PG Care Time/CCT Total # of Minutes Spent Total Time Spent: 45 Total Time Spent with Patient: Total time spent is greater than 50% in coordination of care (as documented) at patient's floor/unit and/or counseling patient: Coding Level of Care Code 37032 Subseq Hosp Care Lvl 3 (25 - SIGNIFICANT, SEPARATELY IDENTIFIABLE ) Diagnoses Controlled diabetes mellitus with neurologic complication, with long-term current use of insulin E11.49; Z79.4 S/P CABG (coronary artery bypass graft) Z95.1 Paroxysmal atrial fibrillation I48.0 Presence of cardiac pacemaker Z95.0 ESRD (end stage renal disease) on dialysis N18.6; Z99.2 Hyperlipidemia E78.5 Fatigue R53.83 Shortness of breath R06.02 Hypertension I15.0 Hypertension type: renovascular hypertension Hypoxia R09.02 Elevated troponin R77.8 Aspiration pneumonia J69.0 (1) Hypertension Hypertension type: renovascular hypertension Qualified Code(s): I15.0 - Renovascular hypertension
[2021-02-17] MEDS ORDERED: OPTIRAY 320 100ml IV ONE (12:18)
--- NOTE | 2021-02-17 12:42 | CT Scan Report ---
CT lumbar spine w con CLINICAL HISTORY: back pain, fever TECHNIQUE: Multidetector row helical CT of the lumbar spine was performed without administration of i ntravenous contrast. Coronal and sagittal reformations were obtained. Automated dose lowering techniq ues and/or adjustment according to patient size were utilized for this exam. Comparison: Comparison is made to CT lumbar spine 08/12/2018 FINDINGS: Moderate dextroscoliosis is seen. Again noted is multilevel degenerative change, comparable in extent to the prior exam. No acute fractures are identified. Incidental note is made of extensive atherosclerotic calcification in the abdomen. IMPRESSION: Redemonstration of multilevel degenerative changes in the back. No evidence of acute fracture or luce ncies to suggest osteomyelitis. ACT 112: Negative or not required by law. Electronically signed by: Parminder Michelle M.D. 02/17/2021 12:40 PM
--- NOTE | 2021-02-17 13:13 | CT Scan Report ---
CHEST CT WITH CONTRAST CT DOSE: 466.37 mGy.cm HISTORY: Acute cough with fever and chest pain fever, cough, COVID TECHNIQUE: Multiaxial CT images of the chest were performed following the IV administration of 94 cc of Optiray. A dose lowering technique was utilized adhering to the principles of ALARA. COMPARISON: CT abdomen pelvis and CT lumbar spine studies of same day, chest CT 06/11/2017, CT abdomen and pelvis 11/05/2012 FINDINGS: Moderate to marked cardiomegaly. Prior median sternotomy with left subclavian pacer and nash or CABG. Extensive wrangell coronary artery calcifications. Atherosclerotic plaque of the thoracic aort a with patency of the imaged great vessels. There is a peripherally calcified 1.8 cm left atrial stru cture abutting the septum on image 158 which is stable dating back to at least 2012. Trace pleural effusions with left greater than right dependent bibasilar consolidation. No pneumothor ax. Mild bronchial wall thickening. No acute process of the imaged upper abdomen. No acute fracture. IMPRESSION: 1. Trace pleural effusions with left basilar predominant consolidation suspicious for pneumonia. 2. Cardiomegaly with chronic peripherally calcified left atrial structure present dating back to [place] 2012, possibly a chronic thrombus. This could be correlated with echocardiogram. 3. Please see the separately dictated CT abdomen and pelvis study of same day. ACT 112: Negative or not required by law. Electronically signed by: Ryan Braun M.D. 02/17/2021 1:12 PM
--- NOTE | 2021-02-17 13:17 | CT Scan Report ---
CT SCAN OF THE ABDOMEN AND PELVIS WITH IV CONTRAST CLINICAL HISTORY: Fever. Back pain. COMPARISON STUDY: Abdominal CT dated 04/14/2017 and 11/05/2012. TECHNIQUE: Following the IV administration of 94 cc of Optiray 320, CT scan of the abdomen and pelvi s is performed from the lung bases to the proximal femora. Images are reviewed in the axial, sagittal , and coronal planes. IV contrast was administered without complication. A dose lowering technique wa s utilized adhering to the principles of ALARA. FINDINGS: Lung bases: The patient is status post midline sternotomy. The heart is enlarged and without pericard ial effusion. Pacemaker leads are in place. 2.1 cm peripherally calcified filling defect is seen in t he left atrium on image #14. There is bibasilar airspace consolidation, left greater than right. Liver: The contrast-enhanced liver is normal in size, contour, and attenuation. There is minimal cent ral intrahepatic biliary ductal dilatation. The hepatic veins and portal veins are patent. There are scattered calcified hepatic granulomas. Gallbladder: Surgically absent noting clips in the gallbladder fossa. Spleen: Normal in size and attenuation. Pancreas: Mildly atrophic and grossly unremarkable. Adrenal glands: Unremarkable. Kidneys: The contrast enhanced kidneys are atrophic and without hydronephrosis. The kidneys enhance h eterogeneously. A 1.8 cm exophytic cyst arises from the right lower pole. Renovascular calcifications are seen bilaterally. Abdominal vasculature: The abdominal aorta is normal in course and caliber noting advanced atheroscle rotic calcification. Bowel: Fecal retention is noted in the rectum with associated wall thickening, hyperemia, and surroun ding inflammation. No bowel obstruction is seen. There is mild diverticulosis of the right colon with out CT evidence of acute diverticulitis. The appendix is well-visualized and normal. Peritoneum: There is no intraperitoneal free air or abdominal ascites. Lymphadenopathy: None. Pelvic viscera: The bladder wall appears thickened and irregular with mucosal hyperemia. There is mil d pericystic infiltration. There is presacral soft tissue inflammation. The uterus is surgically abse nt. No adnexal lesion is seen. Skeletal structures: The skeletal structures are heterogeneously osteopenic. There is moderate to adv anced lumbosacral spondylosis and scoliosis. No lytic or blastic lesions are seen. Arthritic change i s noted in the hips. Soft tissues: Dermal thickening within the lower abdominal wall is similar to previous. There is body wall edema. IMPRESSION: 1. Fecal retention is noted in the rectum, with associated rectal wall thickening and hyperemia as we ll as surrounding inflammation. Findings suggest a nonspecific proctitis. 2. Question cystitis. Correlate with clinical findings and urinalysis. 3. Cardiomegaly. 4. There is left greater than right bibasilar airspace consolidation. This could represent atelectasi s versus pneumonia/aspiration pneumonitis. Clinical correlation will be required 5. A 2.1 cm calcified filling defect in the left atrium is unchanged dating back to 2012. This could represent an atrial septal closure device, a calcified soft tissue lesion, or chronic thrombus. This can be further assessed with echocardiography if clinically warranted. 6. Additional findings as above. ACT 112: Negative or not required by law. Electronically signed by: William Villanueva M.D. 02/17/2021 1:16 PM
[2021-02-17] MEDS: metroNIDAZOLE 500 MG/100 ML BAG IV SCH (18:22)
[2021-02-17] MEDS: INSULIN GLARGINE SOLOSTAR 100 UNITS/ML 3 ML PEN SC SCH (21:23)
[2021-02-18] MEDS: metroNIDAZOLE 500 MG/100 ML BAG IV SCH ×3 (00:35→17:03)
[2021-02-18] MEDS: INSULIN ASPART 100 UNITS/ML 3 ML PEN SC SCH ×4 (08:34→21:36)
[2021-02-18 09:40] LABS: Hematocrit (blood only) 30.9 % (37-47); Hemoglobin 10.1 g/dL (12.0-16.0); Mean Corpuscular Hemoglobin 32.4 pg (25-34); Mean Corpuscular Hgb Conc 32.7 g/dL (32-36); Mean Platelet Volume 9.6 fL (7.4-10.4); Platelet Count 127 K/uL (130-400); RDW Coefficient of Variation 15.4 % (11.5-14.5); RDW Standard Deviation 55.3 fL (36.4-46.3); Red Blood Count 3.12 M/uL (4.2-5.4); White Blood Count 11.01 K/uL (4.8-10.8)
[2021-02-18] MEDS: ISOSORBIDE MONO EXTENDED REL 30 MG TABCR PO SCH (09:46)
[2021-02-18] MEDS: ASPIRIN 81 MG ECTAB PO SCH (09:46)
[2021-02-18] MEDS: lisinopril 20 MG TAB PO SCH (09:46)
[2021-02-18] MEDS: BENZONATATE 100 MG CAPSULE PO SCH ×3 (09:46→21:38)
[2021-02-18] MEDS: amLODIPine BESYLATE 5 MG TAB PO SCH (09:46)
[2021-02-18] MEDS: EZETIMIBE 10 MG TABLET PO SCH (09:46)
[2021-02-18] MEDS: POLYETHYLENE (MIRALAX) 17 GM PACK PO SCH (09:46)
[2021-02-18] MEDS: CALCIUM ACETATE 667 MG CAP/TAB PO SCH ×3 (09:46→17:03)
[2021-02-18] MEDS: PROPRANOLOL HCL 60 MG LA CAP PO SCH (09:46)
[2021-02-18] MEDS ORDERED: EPOETIN ALFA 10,000 UNITS/ML VIAL IV SCH (10:00)
[2021-02-18] MEDS ORDERED: SODIUM CHLORIDE 0.9% 1000ML 1,000 ML IV SCH (10:00)
--- NOTE | 2021-02-18 10:01 | Nephrology Progress Note ---
Date of Service February 18, 2021 Assessment & Plan (1) ESRD (end stage renal disease) on dialysis: (2) Hypertension: (3) Diabetes mellitus: (4) Hyperlipidemia: (5) Hypoxia: (6) Elevated troponin: Plan: End-stage renal disease, on hemodialysis, admitted with COVID pneumonia. She was also noted to have mildly elevated troponin although no chest pain or shortness of breath. She was vaccinated for COVID before. Clinically she has been declining over last 24 hours with lethargy and less responsiveness. p.o. intake remains poor. Concern for aspiration pneumonia. When she was more responsive yesterday, she decided to be DNR. Had discussion with her granddaughter sure who has been in close contact with her, agreeable to the decision. BP and volume status acceptable, lab pending. --continue lisinopril to 20 mg p.o. daily, Amlodipine -- Hold dialysis today unless any critical hyperkalemia, reassess tomorrow. -- If she continues to deteriorate clinically, may have to transition to comfort measures only will follow Admission and Anticipated Discharge Date Admission Date: February 13, 2021 Tashi Vick was seen and examined in her room this morning. She is very lethargic, minimally responsive, hardly opening her eyes or following any commands. Blood pressure well controlled at 131/90 which is in fact on the lower side for her as she always has blood pressure elevated. oxygen saturation 95% with not nasal cannula oxygen. Lab. from this morning pending Review of Systems Review of Systems: Unobtainable due to reduced consciousness Physical Exam Constitutional: WD/WN, vitals as above + ill appearing, + frail appearing and + lethargic; no acute distress Eyes: + anicteric sclerae ENMT: Ears: no hearing impairment Neck: normal visual inspection Respiratory: normal respiratory effort; no respiratory distress Auscultation: + diminished lung sounds and + rales Cardiovascular: Rate/Rhythm: regular rate and regular rhythm Heart Sounds: normal S1 and normal S2 Extremities: no edema Skin: no rashes Neurologic: + obtunded Results & Data ([facility]) Vital Signs (Past 12 Hours) Vital Signs Temp Pulse Resp BP Pulse Ox Pulse Ox 02/18/21 07:45 36.5 C 60 15 131/90 95 02/18/21 04:05 36.4 C L 60 24 137/52 L 94 02/18/21 00:00 36.7 C 60 20 124/44 L 96 02/17/21 22:00 97 PG Care Time/CCT Total # of Minutes Spent Total Time Spent with Patient: Total time spent is greater than 50% in coordination of care (as documented) at patient's floor/unit and/or counseling patient: Coding Level of Care Code 43531 Subseq Hosp Care Lvl 2 Diagnoses ESRD (end stage renal disease) on dialysis N18.6; Z99.2 Hypertension I15.0 Hypertension type: renovascular hypertension Diabetes mellitus E11.9 Hyperlipidemia E78.5 Hypoxia R09.02 Elevated troponin R77.8 (1) Hypertension Hypertension type: renovascular hypertension Qualified Code(s): I15.0 - Renovascular hypertension
--- NOTE | 2021-02-18 10:12 | Hospitalist Progress Note ---
Date of Service February 18, 2021 Assessment & Plan (1) Aspiration pneumonia: Plan: CT chest shows consolidation in lung bases, more on left (she tends to lean to left side) continue NPO, could not participate with swallow evaluation today she is incredibly weak, difficult time coughing up anything she may aspiration, rattle in back of her throat continue Cefepime and Flagyl DNR, DNI, discussed with daughter Maren who is medical POA family understands that the patient may not survive this hospitalization (2) Hypoxia: Plan: acute hypoxic respiratory failure stable on 2L she is very weak, minimal strength to cough and get up phlegm (3) Controlled diabetes mellitus with neurologic complication, with long-term current use of insulin: Plan: 1. Hypoxia due to acute diastolic heart failure, EF is preserved check echo - EF preserved at 55%, severe MR which was known, no new wall motion changes continue propranolol/lisinopril/isosorbide mononitrate given in ER Daily weight/monitor I's and O's examines euvolemic today, actually a little dry 2. Elevated troponin Troponin of 0.644 in ER with abnormal EKG, up to 1.2 02/14, no chest pain heparin drip for 48-72 hours, stop this morning Sublingual nitro as needed for chest pain, no chest pain Cardiology consult, no plans for cath - echo: EF 55% 3. COVID-19 Positive PCR on 02/13 Patient has been vaccinated x2 We will defer steroid treatment at this time as I do not suspect her oxygen needs are from infection - treat with cough suppressants, flutter valve CT chest showed no signs of viral pneumonitis Coronary artery disease status post CABG High risk for CT in setting of history and IDDM Continue daily aspirin, sublingual nitro for chest pain Continue ezetimibe daily Hypertension Continue parenteral 120 mg ER every morning, lisinopril 5 mg daily, Takes isosorbide mononitrate alternating 60 and 30 mg every other day. Insulin-dependent diabetes mellitus Pharmacy glycemic consult placed Last A1c 01/26/[address] on D5W 1/2 NSS for some dextrose in her system ESRD typical schedule is Sunday Nephrology consult - hold HD actually give fluids, electrolytes are stable Anxiety Continue home alprazolam 1 mg p.o. at bedtime as needed DVT ppx: heparin drip FEN/GI: heart healthy, low salt, DM2 diet Bowel regimen: miralax PRN Code Status: Full Code Dispo: PCU (4) Fatigue: (5) Shortness of breath: (6) ESRD (end stage renal disease) on dialysis: Plan: continue dialysis on a MWF schedule, plan for tomorrow (7) Elevated troponin: (8) S/P CABG (coronary artery bypass graft): (9) Paroxysmal atrial fibrillation: (10) Presence of cardiac pacemaker: (11) Hyperlipidemia: (12) Hypertension: Admission and Anticipated Discharge Date Admission Date: February 13, 2021 Subjective patient very lethargic, very weak, could not cooperative for swallow study d/w Dr. Mijares, she recommended fluids, will give D5W 1/2 NSS at 80cc/hr patient has sheyla weak cough, sleeping all day, says her mouth is dry no fever, stable on 2L long talk with her daughter Maren she confirmed that she has been much weaker the past few months dialysis is getting harder and harder, dealing with skin cancer, not eating well, falls at home I discussed that the patient may not get well enough to leave the hospital, next few days will tell a lot could make the decision to hold dialysis if she is not coming around if the patient is alert enough I will discuss these things were her as well daughter Maren, who is a medical POA, confirmed that the patient should be DNR, DNI Review of Systems Review of Systems: All systems reviewed & are unremarkable except as noted in Subjective Constitutional: + fatigue and + weakness Respiratory: + cough Physical Exam Physical Exam: General: well developed, thin, elderly frail female, no distress Neck: supple, trachea midline, normal thyroid Lungs: + rhonchi bilaterally, + cough (very weak), normal respiratory effort, no accessory muscle use, no distress Heart: regular S1 and S2, no murmur, peripheral pulses normal, capillary refill normal, no edema Abdomen: soft, NT, ND, + BS, no hepatomegaly, normal to percussion Extremities: normal in appearance, no cyanosis, no petechiae, strength is greatly diminished, cannot even sit up on her own Neuro: lethargic but wakes up, cooperative, moves all extremities, no focal motor deficits, CN II-XII intact Skin: warm, dry, no rash, normal turgor Psych: lethargic, oriented to person and place, cooperative Results & Data Results & Data ([facility]) Vital Signs (Past 12 Hours) Vital Signs Temp Pulse Resp BP Pulse Ox 02/18/21 07:45 36.5 C 60 15 131/90 95 02/18/21 04:05 36.4 C L 60 24 137/52 L 94 02/18/21 00:00 36.7 C 60 20 124/44 L 96 Laboratory Results Laboratory Results - last 24 hr 02/18/21 02/18/21 02/18/21 08:23 08:58 08:58 WBC 11.01 H RBC 3.12 L Hgb 10.1 L Hct 30.9 L MCV 99.0 MCH 32.4 MCHC 32.7 RDW Std Deviation 55.3 H RDW Coeff of Bjorn 15.4 H Plt Count 127 L MPV 9.6 Immature Gran % (Auto) 0.5 Neut % (Auto) 75.5 Lymph % (Auto) 17.3 [place] % (Auto) 6.4 Eos % (Auto) 0.1 Baso % (Auto) 0.2 Neut # (Auto) 8.33 H Lymph # (Auto) 1.90 [place] # (Auto) 0.70 H Eos # (Auto) 0.01 Baso # (Auto) 0.02 Immature Gran # (Auto) 0.05 H Sodium 133 L Potassium 4.7 Chloride 96 L Carbon Dioxide 29 Anion Gap 8.0 BUN 79 H Creatinine 5.35 H* D Est Cr Clr Drug Dosing 5.4 Est GFR ( Amer) 7.7 Est GFR (Non-Af Amer) 6.7 BUN/Creatinine Ratio 14.8 Glucose 71 POC Glucose 72 Calcium 8.4 L Phosphorus 5.0 H Magnesium 2.6 H Procalcitonin 02/18/21 02/18/21 02/18/21 08:58 12:03 12:04 WBC RBC Hgb Hct MCV MCH MCHC RDW Std Deviation RDW Coeff of Bjorn Plt Count MPV Immature Gran % (Auto) Neut % (Auto) Lymph % (Auto) [place] % (Auto) Eos % (Auto) Baso % (Auto) Neut # (Auto) Lymph # (Auto) [place] # (Auto) Eos # (Auto) Baso # (Auto) Immature Gran # (Auto) Sodium Potassium Chloride Carbon Dioxide Anion Gap BUN Creatinine Est Cr Clr Drug Dosing Est GFR ( Amer) Est GFR (Non-Af Amer) BUN/Creatinine Ratio Glucose POC Glucose 65 L* 70 Calcium Phosphorus Magnesium Procalcitonin 0.45 02/18/21 02/18/21 17:13 20:10 WBC RBC Hgb Hct MCV MCH MCHC RDW Std Deviation RDW Coeff of Bjorn Plt Count MPV Immature Gran % (Auto) Neut % (Auto) Lymph % (Auto) [place] % (Auto) Eos % (Auto) Baso % (Auto) Neut # (Auto) Lymph # (Auto) [place] # (Auto) Eos # (Auto) Baso # (Auto) Immature Gran # (Auto) Sodium Potassium Chloride Carbon Dioxide Anion Gap BUN Creatinine Est Cr Clr Drug Dosing Est GFR ( Amer) Est GFR (Non-Af Amer) BUN/Creatinine Ratio Glucose POC Glucose 117 H 95 Calcium Phosphorus Magnesium Procalcitonin Medications Administered Current Inpatient Medications Acetaminophen (Acetaminophen 325 Mg Tab) 650 mg PO Q4H PRN PRN Reason: Pain or Fever Stop: 03/15/21 22:43 Last Admin: 02/17/21 18:35 Dose: 650 mg Documented by: Alprazolam (Alprazolam 0.5 Mg Tablet) 1 mg PO HS PRN PRN Reason: Anxiety Stop: 03/15/21 22:43 Amlodipine Besylate (Amlodipine Besylate 5 Mg Tab) 10 mg PO QAM [facility] Stop: 03/17/21 08:59 Last Admin: 02/18/21 09:46 Dose: Not Given Documented by: Aspirin (Aspirin 81 Mg Ectab) 81 mg PO DAILY [facility] Stop: 03/16/21 08:59 Last Admin: 02/18/21 09:46 Dose: Not Given Documented by: Benzonatate (Benzonatate 100 Mg Capsule) 100 mg PO TID [facility] Stop: 03/18/21 13:59 Last Admin: 02/18/21 09:46 Dose: Not Given Documented by: Bisacodyl (Bisacodyl 10 Mg Supp) 10 mg MO DAILY PRN PRN Reason: Constipation Stop: 03/16/21 02:50 Calcium Acetate (Calcium Acetate 667 Mg Cap/Tab) 667 mg PO TIDM [facility] Stop: 03/16/21 07:59 Last Admin: 02/18/21 09:46 Dose: Not Given Documented by: Clobetasol Propionate (Clobetasol Propionate 0.05% Oint 15 Gm Tube) 1 appln EXT BID PRN PRN Reason: Skin Irritation Stop: 03/15/21 23:02 Dextrose (Dextrose 50% 50 Ml Syringe) 25 - 50 ml IV UD PRN; Protocol PRN Reason: Hypoglycemia Protocol Stop: 03/15/21 23:29 Digoxin (Digoxin 0.125 Mg Tab) 0.125 mg PO MoWeFr@1600 [facility] Stop: 03/16/21 15:59 Last Admin: 02/16/21 16:18 Dose: 0.125 mg Documented by: Ezetimibe (Ezetimibe 10 Mg Tablet) 10 mg PO DAILY [facility] Stop: 03/16/21 08:59 Last Admin: 02/18/21 09:46 Dose: Not Given Documented by: Epoetin Arik (Epoetin Arik 10,000 Units/Ml Vial) 10,000 units IV 1000 [facility] Stop: 02/18/21 16:00 Glucagon (Glucagon For Inj 1 Mg Vial) 1 mg IM UD PRN; Protocol PRN Reason: Hypoglycemia Protocol Stop: 03/15/21 23:29 Glucose (Glucose 40% Gel 15 Gm Tube) 15 - 30 gm PO UD PRN; Protocol PRN Reason: Hypoglycemia Protocol Stop: 03/15/21 23:29 Glucose (Glucose 10 Tabs/Tube) 4 - 8 tabs PO UD PRN; Protocol PRN Reason: Hypoglycemia Protocol Stop: 03/15/21 23:29 Guaifenesin/Dextromethorphan (Guaifenesin/Dextrom Syrup 100mg/10mg 5ml Udc) 5 ml PO Q6H PRN PRN Reason: Cough Stop: 03/18/21 10:26 Cefepime HCl 1,000 mg/ Syringe 11.3 mls @ 5.5 mls/min IV Q24H [facility]; Protocol Stop: 02/24/21 09:59 Last Admin: 02/17/21 09:57 Dose: 5.5 mls/min Documented by: Metronidazole (Flagyl) 500 mg in 100 mls @ 100 mls/hr IV Q8H [facility] Stop: 02/24/21 15:59 Last Infusion: 02/18/21 10:01 Dose: Infused Documented by: Sodium Chloride (Nss 1000ml) 1,000 mls @ 80 mls/hr IV .[id number] [facility] Stop: 03/20/21 09:59 Insulin Aspart (Insulin Aspart 100 Units/Ml 3 Ml Pen) 0 units SC ACHS [facility]; Protocol Stop: 03/15/21 23:29 Last Admin: 02/18/21 08:34 Dose: Not Given Documented by: Insulin Glargine (Insulin Glargine Solostar 100 Units/Ml 3 Ml Pen) 0 units SC HS [facility]; Protocol Stop: 03/16/21 20:59 Last Admin: 02/17/21 21:23 Dose: 15 units Documented by: Isosorbide Mononitrate (Isosorbide [place] Extended Rel 30 Mg Tabcr) 30 mg PO MoWeFr@0900 [facility] Stop: 03/16/21 08:59 Last Admin: 02/18/21 09:46 Dose: Not Given Documented by: Isosorbide Mononitrate (Isosorbide [place] Extended Rel 60 Mg Tabcr) 60 mg PO SuTuThSa@0900 [facility] Stop: 03/17/21 08:59 Last Admin: 02/17/21 10:00 Dose: 60 mg Documented by: Lisinopril (Lisinopril 20 Mg Tab) 20 mg PO DAILY [facility] Stop: 03/19/21 08:59 Last Admin: 02/18/21 09:46 Dose: Not Given Documented by: Loperamide HCl (Loperamide Hcl 2 Mg Cap) 2 mg PO Q6 PRN PRN Reason: Diarrhea Stop: 03/16/21 12:24 Metoprolol Tartrate (Metoprolol Tartrate 1 Mg/Ml Vial) 5 mg IV Q5M PRN PRN Reason: HTN Stop: 03/16/21 21:00 Last Admin: 02/15/21 08:11 Dose: 5 mg Documented by: Miscellaneous (Carbohydrates For Hypoglycemia ) 15 - 30 gm PO UD PRN PRN Reason: Hypoglycemia Treatment Stop: 03/15/21 23:29 Miscellaneous Information (Pharmacy Glycemic Mgmt Consult) 1 ea N/A UD PRN PRN Reason: Consult Stop: 03/15/21 22:43 Nitroglycerin (Nitroglycerin Sl 0.4 Mg/Tab Tab) 0.4 mg SL Q5M PRN PRN Reason: chest pain Stop: 03/15/21 22:43 Ondansetron HCl (Ondansetron Inj 2 Mg/Ml 2 Ml Vial) 4 mg IV Q6H PRN PRN Reason: Nausea Stop: 03/15/21 22:43 Last Admin: 02/14/21 11:49 Dose: 4 mg Documented by: Polyethylene Glycol (Polyethylene (Miralax) 17 Gm Pack) 17 gm PO DAILY [facility] Stop: 03/16/21 08:59 Last Admin: 02/18/21 09:46 Dose: Not Given Documented by: Propranolol HCl (Propranolol Hcl 60 Mg [place]) 120 mg PO QAM [facility] Stop: 03/16/21 08:59 Last Admin: 02/18/21 09:46 Dose: Not Given Documented by: Tramadol HCl (Tramadol Hcl 50 Mg Tablet) 50 mg PO Q8H PRN PRN Reason: Pain Stop: 03/18/21 10:26 Last Admin: 02/16/21 12:38 Dose: 50 mg Documented by: PG Care Time/CCT Total # of Minutes Spent Total Time Spent with Patient: Total time spent is greater than 50% in coordination of care (as documented) at patient's floor/unit and/or counseling patient: Coding Level of Care Code 41017 Subseq Hosp Care Lvl 3 Diagnoses Aspiration pneumonia J69.0 Hypoxia R09.02 Controlled diabetes mellitus with neurologic complication, with long-term current use of insulin E11.49; Z79.4 Fatigue R53.83 Shortness of breath R06.02 ESRD (end stage renal disease) on dialysis N18.6; Z99.2 Elevated troponin R77.8 S/P CABG (coronary artery bypass graft) Z95.1 Paroxysmal atrial fibrillation I48.0 Presence of cardiac pacemaker Z95.0 Hyperlipidemia E78.5 Hypertension I15.0 Hypertension type: renovascular hypertension (1) Hypertension Hypertension type: renovascular hypertension Qualified Code(s): I15.0 - Renovascular hypertension
[2021-02-18 10:13] LABS: Basophils # (auto) 0.02 K/uL (0-0.2); Basophils % (auto) 0.2 %; Eosinophils # (auto) 0.01 K/uL (0-0.5); Eosinophils % (auto) 0.1 %; Immature Granulocytes # (auto) 0.05 K/uL (0.00-0.02); Immature Granulocytes % (auto) 0.5 %; Lymphocytes % (auto) 17.3 %; Monocytes % (auto) 6.4 %; Neutrophils # (auto) 8.33 K/uL (1.4-6.5); Neutrophils % (auto) 75.5 %
[2021-02-18 10:31] LABS: BUN Creatinine Ratio 14.8 (10-20); Calcium 8.4 mg/dl (8.5-10.1); Creatinine Clr Calc Pharmacy 5.4 ml/min; Est GFR (African American) 7.7 ml/min; Est GFR (Non-African American) 6.7 ml/min; Magnesium 2.6 mg/dl (1.8-2.4); Potassium 4.7 mmol/L (3.5-5.1)
[2021-02-18] MEDS: D5W AND 1/2NSS 1,000 ML IV SCH (12:45)
--- NOTE | 2021-02-18 14:30 | Pharmacy Report ---
Pharmacy Glycemic Short Note 2 - Date of Service February 18, 2021 - Glycemic Short BSG Results (Last 24 hours): 02/17/21 02/17/21 02/18/21 16:59 20:34 08:23 Glucose POC Glucose 287 H 209 H 72 02/18/21 02/18/21 02/18/21 08:58 12:03 12:04 Glucose 71 POC Glucose 65 L* 70 OUTPATIENT ANTIDIABETIC REGIMEN: * Lantus 35 units HS * Novolog 15/18/25 units * HbA1c: 5.7%, though unreliable in the setting of ESRD on HD ASSESSMENT: 02/18/21: * BSGs trended down significantly. Patient is NPO now, however PO intake has been very minimal in the past few days, so unclear cause of downtrend. * Provider did start d5W/1/2NSS @80 mL/hr at lunchtime. * Will reduce lantus scale this evening. 02/16/21: * Ms Dominguez rec'd 15 units of insulin yesterday, with relatively well-controlled BSGs (150, 163, 202, 169). * Fasting BSG was elevated this morning, so Lantus will be increased this evening (~20%). * Carb ratio tightened today to provide better control throughout the day, however, patient appears to have minimal PO intake. 02/14 * Ms Dominguez is an 86 y/o F with T2DM on insulin and HD who presents with COVID. Patient is not receiving steroids. * During last hospitalization, patient was maintained on Lantus 10-15 units nightly with Novolog CF 40 CR 13. * Patient given Lantus 25 units last night. * BSGs yesterday were 166 mg/dL and today are 172 -152 mg/dL. Patient has no soila etite. * Will reduce Lantus to scale used during last hospitalization stu in light of decreased PO intake. PLAN FOR INPATIENT GLYCEMIC CONTROL: * Hold outpatient oral diabetes medications * Basal insulin * Lantus 6-9 units SQ HS based upon BSG * Bolus insulin * NovoLog per scale ACHS or Q6hrs while NPO * Goal Range: Low 120 mg/dL - High 150 mg/dL * Correction Factor: 30 mg/dL/unit * Nutritional / Prandial insulin per carb ratio of 1 unit per 8 grams CHO consumed PLAN FOR DISCHARGE: * Patient's A1c = 5.7% today. * However, this result is likely somewhat unreliable in ESRD patients d/t interactions between the A1c analyzing technique and high levels of urea in ESRD, reduced RBC life span, iron deficiency anemia, and EPO administration. HbA1c > 7.5% in ESRD patient may overestimate the extent of hyperglycemia in ESRD patients. * Recommend continuing home glycemic regimen as long as patient is not having a ny hypoglycemic episodes. * Test blood sugars at least three times daily (since receiving Novolog three times daily) and work with provider to optimize glycemic regimen.
[2021-02-18] MEDS: CEFEPIME 1,000 MG in SYRINGE 0 ML IV SCH (17:03)
[2021-02-18] MEDS: DIGOXIN 0.125 MG TAB PO SCH (17:03)
[2021-02-18] MEDS: INSULIN GLARGINE SOLOSTAR 100 UNITS/ML 3 ML PEN SC SCH ×2 (21:37→23:10)
[2021-02-19] MEDS: metroNIDAZOLE 500 MG/100 ML BAG IV SCH ×4 (02:13→23:22)
[2021-02-19] MEDS: D5W AND 1/2NSS 1,000 ML IV SCH (02:14)
[2021-02-19] MEDS: INSULIN GLARGINE SOLOSTAR 100 UNITS/ML 3 ML PEN SC SCH ×2 (02:30→22:00)
[2021-02-19] MEDS: INSULIN ASPART 100 UNITS/ML 3 ML PEN SC SCH ×4 (08:00→21:59)
[2021-02-19] MEDS: amLODIPine BESYLATE 5 MG TAB PO SCH (09:31)
[2021-02-19] MEDS: BENZONATATE 100 MG CAPSULE PO SCH ×2 (09:31→13:03)
[2021-02-19] MEDS: ASPIRIN 81 MG ECTAB PO SCH (09:31)
[2021-02-19] MEDS: SODIUM CHLORIDE 0.9% 1000ML 1,000 ML IV SCH ×2 (09:31→21:54)
[2021-02-19] MEDS: CALCIUM ACETATE 667 MG CAP/TAB PO SCH ×2 (09:31→13:02)
[2021-02-19] MEDS: PROPRANOLOL HCL 60 MG LA CAP PO SCH (09:32)
[2021-02-19] MEDS: ISOSORBIDE MONO EXTENDED REL 60 MG TABCR PO SCH (09:32)
[2021-02-19] MEDS: lisinopril 20 MG TAB PO SCH (09:32)
[2021-02-19] MEDS: POLYETHYLENE (MIRALAX) 17 GM PACK PO SCH (09:32)
[2021-02-19] MEDS: EZETIMIBE 10 MG TABLET PO SCH (09:32)
--- NOTE | 2021-02-19 12:20 | Nephrology Progress Note ---
Date of Service February 19, 2021 Assessment & Plan (1) ESRD (end stage renal disease) on dialysis: Plan: Currently refusing HD. Unfortunately, due to multiple medical comorbidities and frailty, Nava is not likely to tolerate HD well. Based on my conversation with her granddaughter and Nava, they seem to understand that she is dying and would like to focus on comfort. I discussed the plan of care with Dr. Nur. We are working on helping arrange for family to visit. Admission and Anticipated Discharge Date Admission Date: February 13, 2021 Subjective Nava remains very weak and slow to respond. She did not answer all my questions but did recognize me. She was able to tell me that she was in the hospital and that she was refusing dialysis today. She asked me to call her family. She did not answer when I asked her if stopping dialysis was a permanent thing or whether she would revisit thoughts about it in the future. She is aspirating. She denied dyspnea. No fevers. I attempted to call Maren (Nava' daughter) but was not able to reach her. I was able to speak with Nava' granddaughter, Dinorah. Dinorah expressed understanding and told me that they would really like Maren to be able to visit with Nava if able. I discussed the plan of care with Dr. Nur this AM. Dinorah gave me a new contact number for Maren other than listed in the chart ([phone]). Review of Systems Constitutional: no weight loss, no weight gain and no problem reported Eyes: no problem reported Ear, Nose, Mouth, Throat: no problem reported Respiratory: no problem reported Cardiovascular: no problem reported Gastrointestinal: no problem reported Musculoskeletal: no problem reported Integumentary: no problem reported Neurologic: no problem reported Psychiatric: no problem reported Endocrine: no problem reported Hematologic / Lymphatic: no problem reported Physical Exam Constitutional: + ill appearing and + frail appearing Eyes: + anicteric sclerae ENMT: Mouth: + muffled voice and + dry oral mucous membranes Neck: normal visual inspection and trachea midline Respiratory: + tachypneic; no respiratory distress Auscultation: + rhonchi Cardiovascular: Rate/Rhythm: + bradycardic Heart Sounds: normal S1 and normal S2 Extremities: + AV fistula; no edema Musculoskeletal: Extremities: + cyanosis; no clubbing Skin: normal turgor; no lesions Neurologic: Motor/Sensory: no tremor and no asterixis Results & Data ([facility]) Vital Signs (Past 12 Hours) Vital Signs Temp Pulse Pulse Resp BP Pulse Ox 02/19/21 12:00 36.7 C 60 16 141/71 H 97 02/19/21 08:00 60 02/19/21 07:00 36.9 C 60 16 136/62 94 02/19/21 03:39 36.9 C 60 20 158/35 H 95 Laboratory Results Laboratory Results - last 24 hr 02/18/21 02/18/21 02/19/21 17:13 20:10 02:07 POC Glucose 117 H 95 166 H 02/19/21 02/19/21 07:22 12:21 POC Glucose 205 H 288 H PG Care Time/CCT Total # of Minutes Spent Total Time Spent: 30 Total Time Spent with Patient: Total time spent is greater than 50% in coordination of care (as documented) at patient's floor/unit and/or counseling patient: Coding Level of Care Code 49619 Subseq Hosp Care Lvl 3 Diagnoses ESRD (end stage renal disease) on dialysis N18.6; Z99.2
[2021-02-19] MEDS ORDERED: INSULIN GLARGINE SOLOSTAR 100 UNITS/ML 3 ML PEN SC ONE (12:45)
--- NOTE | 2021-02-19 13:49 | Pharmacy Report ---
Pharmacy Glycemic Short Note 2 - Date of Service February 19, 2021 - Glycemic Short BSG Results (Last 24 hours): 02/18/21 02/18/21 02/19/21 17:13 20:10 02:07 POC Glucose 117 H 95 166 H 02/19/21 02/19/21 07:22 12:21 POC Glucose 205 H 288 H OUTPATIENT ANTIDIABETIC REGIMEN: * Lantus 35 units HS * Novolog 15/18/25 units * HbA1c: 5.7%, though unreliable in the setting of ESRD on HD ASSESSMENT: 02/19: * BSGs below goal range yesterday and pt not eating - all insulin held yesterday. HS dose of Lantus 6 units given at 0230 when BSG = 166 * rebound hyperglycemia today - will continue with very conservative coverage since prognosis is guarded. 02/18/21: * BSGs trended down significantly. Patient is NPO now, however PO intake has been very minimal in the past few days, so unclear cause of downtrend. * Provider did start d5W/1/2NSS @80 mL/hr at lunchtime. * Will reduce lantus scale this evening. 02/16/21: * Ms Dominguez rec'd 15 units of insulin yesterday, with relatively well-controlled BSGs (150, 163, 202, 169). * Fasting BSG was elevated this morning, so Lantus will be increased this evening (~20%). * Carb ratio tightened today to provide better control throughout the day, however, patient appears to have minimal PO intake. 02/14 * Ms Dominguez is an 86 y/o F with T2DM on insulin and HD who presents with COVID. Patient is not receiving steroids. * During last hospitalization, patient was maintained on Lantus 10-15 units nightly with Novolog CF 40 CR 13. * Patient given Lantus 25 units last night. * BSGs yesterday were 166 mg/dL and today are 172 -152 mg/dL. Patient has no appetite. * Will reduce Lantus to scale used during last hospitalization stu in light of decreased PO intake. PLAN FOR INPATIENT GLYCEMIC CONTROL: * Hold outpatient oral diabetes medications * Basal insulin * Typical basal insulin dose ~ 12-15 units. Pt received 6 units at 0230. Will give Lantus 5 units SQ x 1 dose this AM to a total of 11 units. * Continue with 8-10 units SQ HS - dose based on BSG. * Conservative insulin coverage to maintain BSGs above 150 but also below 250 * Bolus insulin * NovoLog per scale ACHS or Q6hrs while NPO * Goal Range: Low 120 mg/dL - High 150 mg/dL * Correction Factor: 30 mg/dL/unit * Nutritional / Prandial insulin per carb ratio of 1 unit per 8 grams CHO consumed
--- NOTE | 2021-02-19 14:10 | Hospitalist Progress Note ---
Date of Service February 19, 2021 Assessment & Plan (1) Aspiration pneumonia: Plan: CT chest shows consolidation in lung bases, more on left (she tends to lean to left side) continue NPO, could not participate with swallow evaluation on 02/18 but she is aspirating at the bedside with any attempt at swallowing she is incredibly weak, difficult time coughing up anything she may aspirate, rattle in back of her throat continue Cefepime and Flagyl DNR, DNI, discussed with daughter Maren who is medical POA family understands that the patient may not survive this hospitalization move to negative pressure room outside of the COVID unit family will come in for end of life, comfort care visit (2) Hypoxia: Plan: acute hypoxic respiratory failure still on 2L, desaturates when she aspirates she is very weak, minimal strength to cough and get up phlegm (3) Controlled diabetes mellitus with neurologic complication, with long-term current use of insulin: Plan: 1. Hypoxia due to acute diastolic heart failure, EF is preserved check echo - EF preserved at 55%, severe MR which was known, no new wall mot ion changes continue propranolol/lisinopril/isosorbide mononitrate given in ER Daily weight/monitor I's and O's examines euvolemic today, actually a little dry 2. Elevated troponin Troponin of 0.644 in ER with abnormal EKG, up to 1.2 02/14, no chest pain heparin drip for 48-72 hours, stop this morning Sublingual nitro as needed for chest pain, no chest pain Cardiology consult, no plans for cath - echo: EF 55% 3. COVID-19 Positive PCR on 02/13 Patient has been vaccinated x2 We will defer steroid treatment at this time as I do not suspect her oxygen needs are from infection - treat with cough suppressants, flutter valve CT chest showed no signs of viral pneumonitis Coronary artery disease status post CABG High risk for OK in setting of history and IDDM Continue daily aspirin, sublingual nitro for chest pain Continue ezetimibe daily Hypertension Continue parenteral 120 mg ER every morning, lisinopril 5 mg daily, Takes isosorbide mononitrate alternating 60 and 30 mg every other day. Insulin-dependent diabetes mellitus Pharmacy glycemic consult placed Last A1c 01/26/[address] on D5W 1/2 NSS for some dextrose in her system ESRD typical schedule is Sunday Nephrology consult - holding HD, too weak, will not change aspiration pneumonia no official decision yet but family may stop HD treatment, comfort care Anxiety DVT ppx: heparin drip FEN/GI: heart healthy, low salt, DM2 diet Bowel regimen: miralax PRN Code Status: Full Code Dispo: PCU (4) Fatigue: (5) Shortness of breath: (6) ESRD (end stage renal disease) on dialysis: Plan: HD on hold at this time (7) Elevated troponin: (8) S/P CABG (coronary artery bypass graft): (9) Paroxysmal atrial fibrillation: (10) Presence of cardiac pacemaker: (11) Hyperlipidemia: (12) Hypertension: Admission and Anticipated Discharge Date Admission Date: February 13, 2021 Subjective patient continues to do poorly, very fatigued and very weak, thick secretions in the back of her throat, difficult time mobilizing them not safe to swallow, aspirating, cannot take pills no HD today, d/w Dr. Bee discussed with family, will move her to negative pressure room outside of the CO VID unit so they can visit likely transition to comfort care, end of life Review of Systems Review of Systems: All systems reviewed & are unremarkable except as noted in Subjective Physical Exam Physical Exam: General: well developed, thin, elderly frail female, no distress, lethargic Neck: supple, trachea midline, normal thyroid EENT: thick secretions in back of throat, rattle sound with breathing, very dry mucous membranes Lungs: + rhonchi bilaterally, + cough (very weak), normal respiratory effort, no accessory muscle use, no distress Heart: regular S1 and S2, no murmur, peripheral pulses normal, capillary refill normal, no edema Abdomen: soft, NT, ND, + BS, no hepatomegaly, normal to percussion Extremities: normal in appearance, no cyanosis, no petechiae, strength is greatly diminished, cannot even sit up on her own Neuro: lethargic but wakes up, cooperative, moves all extremities, no focal motor deficits, CN II-XII intact Skin: warm, dry, no rash, normal turgor Psych: lethargic, oriented to person and place, cooperative Results & Data Results & Data ([facility]) Vital Signs (Past 12 Hours) Vital Signs Temp Pulse Pulse Resp BP Pulse Ox 02/19/21 12:00 36.7 C 60 16 141/71 H 97 02/19/21 08:00 60 02/19/21 07:00 36.9 C 60 16 136/62 94 02/19/21 03:39 36.9 C 60 20 158/35 H 95 Laboratory Results Laboratory Results - last 24 hr 02/18/21 02/18/21 02/19/21 17:13 20:10 02:07 POC Glucose 117 H 95 166 H 02/19/21 02/19/21 07:22 12:21 POC Glucose 205 H 288 H Medications Administered Current Inpatient Medications Bisacodyl (Bisacodyl 10 Mg Supp) 10 mg MN DAILY PRN PRN Reason: Constipation Stop: 03/16/21 02:50 Clobetasol Propionate (Clobetasol Propionate 0.05% Oint 15 Gm Tube) 1 appln EXT BID PRN PRN Reason: Skin Irritation Stop: 03/15/21 23:02 Dextrose (Dextrose 50% 50 Ml Syringe) 25 - 50 ml IV UD PRN; Protocol PRN Reason: Hypoglycemia Protocol Stop: 03/15/21 23:29 Digoxin (Digoxin 0.125 Mg Tab) 0.125 mg PO [id number] [place] Stop: 03/16/21 15:59 Last Admin: 02/18/21 17:03 Dose: Not Given Documented by: Glucagon (Glucagon For Inj 1 Mg Vial) 1 mg IM UD PRN; Protocol PRN Reason: Hypoglycemia Protocol Stop: 03/15/21 23:29 Glucose (Glucose 40% Gel 15 Gm Tube) 15 - 30 gm PO UD PRN; Protocol PRN Reason: Hypoglycemia Protocol Stop: 03/15/21 23:29 Glucose (Glucose 10 Tabs/Tube) 4 - 8 tabs PO UD PRN; Protocol PRN Reason: Hypoglycemia Protocol Stop: 03/15/21 23:29 Cefepime HCl 1,000 mg/ Syringe 11.3 mls @ 5.5 mls/min IV Q24H [place]; Protocol Stop: 02/24/21 09:59 Last Admin: 02/18/21 17:03 Dose: 5.5 mls/min Documented by: Metronidazole (Flagyl) 500 mg in 100 mls @ 100 mls/hr IV Q8H [place] Stop: 02/24/21 15:59 Last Infusion: 02/19/21 11:03 Dose: Infused Documented by: Sodium Chloride (Nss 1000ml) 1,000 mls @ 80 mls/hr IV .[id number] [place] Stop: 03/21/21 07:59 Last Admin: 02/19/21 09:31 Dose: 80 mls/hr Documented by: Insulin Aspart (Insulin Aspart 100 Units/Ml 3 Ml Pen) 0 units SC ACHS [place]; Protocol Stop: 03/15/21 23:29 Last Admin: 02/19/21 13:15 Dose: 5 units Documented by: Insulin Glargine (Insulin Glargine Solostar 100 Units/Ml 3 Ml Pen) 0 units SC HS [place]; Protocol Stop: 03/16/21 20:59 Last Admin: 02/19/21 02:30 Dose: 6 units Documented by: Miscellaneous (Carbohydrates For Hypoglycemia ) 15 - 30 gm PO UD PRN PRN Reason: Hypoglycemia Treatment Stop: 03/15/21 23:29 Miscellaneous Information (Pharmacy Glycemic Mgmt Consult) 1 ea N/A UD PRN PRN Reason: Consult Stop: 03/15/21 22:43 Nitroglycerin (Nitroglycerin Sl 0.4 Mg/Tab Tab) 0.4 mg SL Q5M PRN PRN Reason: chest pain Stop: 03/15/21 22:43 Ondansetron HCl (Ondansetron Inj 2 Mg/Ml 2 Ml Vial) 4 mg IV Q6H PRN PRN Reason: Nausea Stop: 03/15/21 22:43 Last Admin: 02/14/21 11:49 Dose: 4 mg Documented by: Tramadol HCl (Tramadol Hcl 50 Mg Tablet) 50 mg PO Q8H PRN PRN Reason: Pain Stop: 03/18/21 10:26 Last Admin: 02/16/21 12:38 Dose: 50 mg Documented by: PG Care Time/CCT Total # of Minutes Spent Total Time Spent: 33 Total Time Spent with Patient: Total time spent is greater than 50% in coordination of care (as documented) at patient's floor/unit and/or counseling patient: Coding Level of Care Code 74290 Subseq Hosp Care Lvl 3 (25 - SIGNIFICANT, SEPARATELY IDENTIFIABLE ) Diagnoses Aspiration pneumonia J69.0 Hypoxia R09.02 Controlled diabetes mellitus with neurologic complication, with long-term current use of insulin E11.49; Z79.4 Fatigue R53.83 Shortness of breath R06.02 ESRD (end stage renal disease) on dialysis N18.6; Z99.2 Elevated troponin R77.8 S/P CABG (coronary artery bypass graft) Z95.1 Paroxysmal atrial fibrillation I48.0 Presence of cardiac pacemaker Z95.0 Hyperlipidemia E78.5 Hypertension I15.0 Hypertension type: renovascular hypertension (1) Hypertension Hypertension type: renovascular hypertension Qualified Code(s): I15.0 - Renovascular hypertension
[2021-02-19] MEDS: CEFEPIME 1,000 MG in SYRINGE 0 ML IV SCH (16:38)
[2021-02-20] MEDS: SODIUM CHLORIDE 0.9% 1000ML 1,000 ML IV SCH (09:07)
[2021-02-20] MEDS: metroNIDAZOLE 500 MG/100 ML BAG IV SCH (09:07)
[2021-02-20] MEDS: INSULIN ASPART 100 UNITS/ML 3 ML PEN SC SCH ×2 (09:34→12:24)
--- NOTE | 2021-02-20 10:26 | Nephrology Progress Note ---
Date of Service February 20, 2021 Assessment & Plan (1) ESRD (end stage renal disease) on dialysis: Plan: Currently refusing HD. Unfortunately, due to multiple medical comorbidities and frailty, she would not tolerate HD well and it is not likely to provide any therapeutic benefit. Based on my conversation with her granddaughter and Nava, they seem to understand that she is dying and would like to focus on comfort. Dr. Nur and I reviewed the plan of care yesterday. Admission and Anticipated Discharge Date Admission Date: February 13, 2021 Subjective No acute events overnight. Nava remains very weak. She is not tolerating PO. She has been unable to get herself out of bed. She is oriented though remains very slow to respond. She told me that she does not want dialysis today and understands that she may be too weak to resume in the future. She told me that she understands that her life expectancy is limited and that she just wants to be comfortable. Her family is planning to visit today. Nava told me that she will be happy to see them but does not want them to feel that they have to see her like this. Review of Systems Review of Systems: All systems reviewed & are unremarkable except as noted in HPI & below Physical Exam Constitutional: + ill appearing and + frail appearing Eyes: + anicteric sclerae ENMT: Mouth: + muffled voice and + dry oral mucous membranes Neck: normal visual inspection and trachea midline Respiratory: + tachypneic; no respiratory distress Auscultation: + rhonchi Cardiovascular: Rate/Rhythm: + bradycardic Heart Sounds: normal S1 and normal S2 Extremities: + AV fistula; no edema Musculoskeletal: Extremities: + cyanosis; no clubbing Skin: normal turgor; no lesions Neurologic: Motor/Sensory: no tremor and no asterixis Results & Data ([facility]) Vital Signs (Past 12 Hours) Vital Signs Temp Pulse Resp BP Pulse Ox 02/20/21 09:05 37.2 C 63 22 177/69 H 94 02/19/21 23:53 36.9 C 60 16 171/53 H 94 Laboratory Results Laboratory Results - last 24 hr 02/19/21 02/19/21 02/19/21 12:21 16:34 21:56 POC Glucose 288 H 191 H 156 H 02/20/21 08:59 POC Glucose 190 H PG Care Time/CCT Total # of Minutes Spent Total Time Spent: 25 Total Time Spent with Patient: Total time spent is greater than 50% in coordination of care (as documented) at patient's floor/unit and/or counseling patient: Coding Level of Care Code 88830 Subseq Hosp Care Lvl 3 Diagnoses ESRD (end stage renal disease) on dialysis N18.6; Z99.2
[2021-02-20] MEDS ORDERED: GLYCOPYRROLATE 0.2 MG/ML VIAL IV PRN (13:55)
[2021-02-20] MEDS ORDERED: LORazepam 0.5 MG/1 ML VIAL IV PRN (13:55)
[2021-02-20] MEDS ORDERED: ATROPINE SULFATE 1% OP SOLN 5 ML BTL SL PRN (13:55)
--- NOTE | 2021-02-20 14:06 | Hospitalist Progress Note ---
Date of Service February 20, 2021 Assessment & Plan (1) Goals of care, counseling/discussion: Plan: met with family members, they were able to visit patient they agree with transition to LASERIST place on Morphine and Ativan PRN fluids and antibiotics stopped (2) Aspiration pneumonia: Plan: CT chest showed consolidation in lung bases, more on left (she tends to lean to left side) NPO, could not participate with swallow evaluation on 02/18 but she is aspirating at the bedside with any attempt at swallowing she is incredibly weak, difficult time coughing up anything, rattle in back of her throat treated with Cefepime and Flagyl, now stop, LASERIST DNR, DNI, discussed with daughter Maren who is medical POA (3) Hypoxia: Plan: acute hypoxic respiratory failure still on 2L, desaturates when she aspirates she is very weak, minimal strength to cough and get up phlegm LASERIST (4) ESRD (end stage renal disease) on dialysis: Plan: initially got HD 02/14 and 02/16, then too weak and sick on 02/18 transitioned to LASERIST no labs likely pass away in days as no HD since 02/16 (5) Acute on chronic heart failure with normal ejection fraction: Plan: removed fluid with HD, but symptoms did not improve echo with EF of 55% and MR, no new wall motion changes now on LASERIST (6) Controlled diabetes mellitus with neurologic complication, with long-term current use of insulin: Plan: stop checking sugars (7) Fatigue: Plan: profound weakness, cannot cough (8) Shortness of breath: Plan: due to pneumonia (9) Elevated troponin: Plan: initially treated like she had STEMI, troponin 1.0 gave heparin for 72 hours, never had chest pain while here, had CP prior to admission no changes on Echo (10) S/P CABG (coronary artery bypass graft): (11) Paroxysmal atrial fibrillation: (12) Presence of cardiac pacemaker: (13) Hyperlipidemia: (14) Hypertension: Admission and Anticipated Discharge Date Admission Date: February 13, 2021 Subjective patient resting comfortable, breathing is shallow, still with rattle in throat she wanted to see her family, says that she is "ready to go to psychiatric hospital" several family members visited with patient spoke with Maren outside the room after visitation, they agreed with transition to full comfort care stop IV fluids and antibiotics Morphine and Ativan ordered spoke with RN about the plan Review of Systems Review of Systems: Unobtainable due to reduced consciousness Physical Exam Physical Exam: General: well developed, thin, elderly frail female, lethargic Neck: supple, trachea midline, normal thyroid EENT: thick secretions in back of throat, rattle sound with breathing, very dry mucous membranes Lungs: + rhonchi bilaterally, + cough (very weak), shallow respirations, no accessory muscle use, no distress Heart: regular S1 and S2, no murmur, peripheral pulses normal, capillary refill normal, no edema Abdomen: soft, NT, ND, + BS, no hepatomegaly, normal to percussion Extremities: third spacing, mild cyanosis Neuro: lethargic but wakes up, no focal motor deficits, CN II-XII intact Psych: lethargic, oriented to person and place, cooperative Results & Data Results & Data ([facility]) Vital Signs (Past 12 Hours) Vital Signs Temp Pulse Resp BP Pulse Ox 02/20/21 09:05 37.2 C 63 22 177/69 H 94 Medications Administered Current Inpatient Medications Atropine Sulfate (Atropine Sulfate 1% Op Soln 5 Ml Btl) 4 drops SL Q1H PRN PRN Reason: Secretions or pulm congestion Stop: 03/22/21 13:54 Glycopyrrolate (Glycopyrrolate 0.2 Mg/Ml Vial) 0.2 mg IV Q4H PRN PRN Reason: Secretions or Pulm Congestion Stop: 03/22/21 13:54 Lorazepam (Ativan) 0.5 mg in 1 mls @ 1 mls/min IV Q4H PRN PRN Reason: Anxiety/Agitation Stop: 03/22/21 13:54 Miscellaneous Information (Pharmacy Glycemic Mgmt Consult) 1 ea N/A UD PRN PRN Reason: Consult Stop: 03/15/21 22:43 Morphine Sulfate (Morphine Sulfate 2 Mg/Ml Carp) 2 mg IV Q2H PRN PRN Reason: Pain or Respiratory Distress Stop: 03/06/21 13:54 Ondansetron HCl (Ondansetron Inj 2 Mg/Ml 2 Ml Vial) 4 mg IV Q6H PRN PRN Reason: Nausea Stop: 03/15/21 22:43 Last Admin: 02/14/21 11:49 Dose: 4 mg Documented by: PG Care Time/CCT Total # of Minutes Spent Total Time Spent: 40 Total Time Spent with Patient: Total time spent is greater than 50% in coordination of care (as documented) at patient's floor/unit and/or counseling patient: spent 25 minutes with family, bringing them in and out of the room for visitation, end of life 15 minutes on chart review, documentation Coding Level of Care Code 34397 Subseq Hosp Care Lvl 3 (25 - SIGNIFICANT, SEPARATELY IDENTIFIABLE ) Diagnoses Aspiration pneumonia J69.0 Hypoxia R09.02 Controlled diabetes mellitus with neurologic complication, with long-term current use of insulin E11.49; Z79.4 Fatigue R53.83 Shortness of breath R06.02 ESRD (end stage renal disease) on dialysis N18.6; Z99.2 Elevated troponin R77.8 S/P CABG (coronary artery bypass graft) Z95.1 Paroxysmal atrial fibrillation I48.0 Presence of cardiac pacemaker Z95.0 Hyperlipidemia E78.5 Hypertension I15.0 Hypertension type: renovascular hypertension Goals of care, counseling/discussion Z71.89 Acute on chronic heart failure with normal ejection fraction I50.33 (1) Hypertension Hypertension type: renovascular hypertension Qualified Code(s): I15.0 - Renovascular hypertension
[2021-02-20] MEDS: MoRPHine SULFATE 2 MG/ML CARP IV PRN ×3 (15:02→22:37)
[2021-02-21] MEDS: MoRPHine SULFATE 2 MG/ML CARP IV PRN ×2 (05:02→10:36)
[2021-02-21] MEDS: HYDROmorphone INJ 0.5 MG/0.5 ML SYR IV PRN ×2 (13:54→18:18)
--- NOTE | 2021-02-21 20:56 | Hospitalist Progress Note ---
Date of Service February 21, 2021 Assessment & Plan (1) Goals of care, counseling/discussion: Plan: Patient has been transitioned to comfort measures only and has discontinued hemodialysis Given renal dysfunction, will discontinue morphine to prevent morphine toxicity and convert IV Dilaudid as needed pain and breathlessness -Continue Ativan PRN agitation or anxiety fluids and antibiotics stopped, no more lab draws or glucose checks Glycopyrrolate and atropine drops as needed for secretions Given the patient has not had dialysis since 02/16, she will most likely pass away within the next week (2) Aspiration pneumonia: Plan: CT chest showed consolidation in lung bases, more on left (she tends to lean to left side) NPO, could not participate with swallow evaluation on 02/18 but she is aspir ating at the bedside with any attempt at swallowing she is incredibly weak, difficult time coughing up anything, rattle in back of her throat treated with Cefepime and Flagyl, now stopped, on PRESCHOOL EDUCATION DIRECTOR DNR, DNI, as previously discussed with daughter Maren who is medical POA (3) Hypoxia: Plan: acute hypoxic respiratory failure secondary to aspiration pneumonia, but also tested positive [id number] seems more consistent with aspiration than viral pneumonia Continue supplemental O2 and IV Dilaudid as needed for comfort PRESCHOOL EDUCATION DIRECTOR (4) ESRD (end stage renal disease) on dialysis: Plan: initially got HD 02/14 and 02/16, then too weak and sick on 02/18 transitioned to PRESCHOOL EDUCATION DIRECTOR no labs likely pass away in days as no HD since 02/16 (5) Acute on chronic heart failure with normal ejection fraction: Plan: removed fluid with HD, but symptoms did not improve echo with EF of 55% and MR, no new wall motion changes now on PRESCHOOL EDUCATION DIRECTOR (6) Controlled diabetes mellitus with neurologic complication, with long-term current use of insulin: Plan: stop checking sugars (7) Fatigue: Plan: profound weakness, cannot cough (8) Shortness of breath: Plan: due to pneumonia (9) Elevated troponin: Plan: initially treated like she had STEMI, troponin 1.0 gave heparin for 72 hours, never had chest pain while here, had CP prior to admission no changes on Echo (10) S/P CABG (coronary artery bypass graft): (11) Paroxysmal atrial fibrillation: (12) Presence of cardiac pacemaker: (13) Hyperlipidemia: (14) Hypertension: (15) COVID-19: Plan: Remains on precautions, but could come off precautions after 02/23 Admission and Anticipated Discharge Date Admission Date: February 13, 2021 Subjective Patient had received morphine prior to me seeing her. She was very lethargic but did moan once when I said her name. Otherwise she did not answer any questions. She appeared comfortable. Review of Systems Review of Systems: Unobtainable due to cognitive status Physical Exam Constitutional: well developed; no acute distress Respiratory: normal respiratory effort Cardiovascular: Rate/Rhythm: regular rate and regular rhythm Results & Data Results & Data ([facility]) Vital Signs (Past 12 Hours) Vital Signs Temp Pulse Resp BP Pulse Ox Pulse Ox 02/21/21 18:00 97 02/21/21 16:35 16 02/21/21 10:37 36.8 C 60 14 166/98 H 100 PG Care Time/CCT Total # of Minutes Spent Total Time Spent with Patient: Total time spent is greater than 50% in coordination of care (as documented) at patient's floor/unit and/or counseling patient: Coding Level of Care Code 85976 Subseq Hosp Care Lvl 1 Diagnoses Goals of care, counseling/discussion Z71.89 Aspiration pneumonia J69.0 Hypoxia R09.02 ESRD (end stage renal disease) on dialysis N18.6; Z99.2 Acute on chronic heart failure with normal ejection fraction I50.33 Controlled diabetes mellitus with neurologic complication, with long-term current use of insulin E11.49; Z79.4 Fatigue R53.83 Shortness of breath R06.02 Elevated troponin R77.8 S/P CABG (coronary artery bypass graft) Z95.1 Paroxysmal atrial fibrillation I48.0 Presence of cardiac pacemaker Z95.0 Hyperlipidemia E78.5 Hypertension I15.0 Hypertension type: renovascular hypertension COVID-19 U07.1 (1) Hypertension Hypertension type: renovascular hypertension Qualified Code(s): I15.0 - Renovascular hypertension
[2021-02-22] MEDS: HYDROmorphone INJ 0.5 MG/0.5 ML SYR IV PRN (08:46)
--- NOTE | 2021-02-22 12:47 | Hospitalist Progress Note ---
Date of Service February 22, 2021 Assessment & Plan (1) Goals of care, counseling/discussion: Plan: Patient has been transitioned to comfort measures only and has discontinued hemodialysis Given renal dysfunction, use IV Dilaudid as needed for pain and breathlessness -Continue Ativan PRN agitation or anxiety fluids and antibiotics stopped, no more lab draws or glucose checks Glycopyrrolate and atropine drops as needed for secretions Given the patient has not had dialysis since 02/16, she will most likely pass away within the next week Discussed care with daughter, Maren, on phone on 02/22--> she said that family said their goodbyes when pt was able to speak and do not wish to come back in for daily visitation at this time (2) Aspiration pneumonia: Plan: CT chest showed consolidation in lung bases, more on left (she tends to lean to left side) NPO, could not participate with swallow evaluation on 02/18 but she is aspirating at the bedside with any attempt at swallowing she is incredibly weak, difficult time coughing up anything, rattle in back of her throat treated with Cefepime and Flagyl, now stopped, on FIXED INCOME MANAGER DNR, DNI, as previously discussed with daughter Maren who is medical POA (3) Hypoxia: Plan: acute hypoxic respiratory failure secondary to aspiration pneumonia, but also tested positive [id number] seems more consistent with aspiration than viral pneumonia Continue supplemental O2 and IV Dilaudid as needed for comfort FIXED INCOME MANAGER (4) ESRD (end stage renal disease) on dialysis: Plan: initially got HD 02/14 and 02/16, then too weak and sick on 02/18 transitioned to FIXED INCOME MANAGER no labs likely pass away in days as no HD since 02/16 (5) Acute on chronic heart failure with normal ejection fraction: Plan: removed fluid with HD, but symptoms did not improve echo with EF of 55% and MR, no new wall motion changes now on FIXED INCOME MANAGER (6) Controlled diabetes mellitus with neurologic complication, with long-term current use of insulin: Plan: stop checking sugars (7) Fatigue: Plan: profound weakness, cannot cough (8) Shortness of breath: Plan: due to pneumonia (9) Elevated troponin: Plan: initially treated like she had STEMI, troponin 1.0 gave heparin for 72 hours, never had chest pain while here, had CP prior to admission no changes on Echo (10) S/P CABG (coronary artery bypass graft): (11) Paroxysmal atrial fibrillation: (12) Presence of cardiac pacemaker: (13) Hyperlipidemia: (14) Hypertension: (15) COVID-19: Plan: Remains on precautions, but could come off precautions after 02/23 Admission and Anticipated Discharge Date Admission Date: February 13, 2021 Subjective Pt obtunded, does not open eyes or respond. Has received a few doses of IV dilaudid overnight. I discussed her care with RN and with daughter on phone. Review of Systems Review of Systems: Unobtainable due to reduced consciousness Physical Exam Constitutional: well developed; no acute distress Respiratory: normal respiratory effort Auscultation: + diminished lung sounds (at bases) Cardiovascular: Rate/Rhythm: regular rate and regular rhythm PG Care Time/CCT Total # of Minutes Spent Total Time Spent with Patient: Total time spent is greater than 50% in coordination of care (as documented) at patient's floor/unit and/or counseling patient: Coding Level of Care Code 28552 Subseq Hosp Care Lvl 1 Diagnoses Goals of care, counseling/discussion Z71.89 Aspiration pneumonia J69.0 Hypoxia R09.02 ESRD (end stage renal disease) on dialysis N18.6; Z99.2 Acute on chronic heart failure with normal ejection fraction I50.33 Controlled diabetes mellitus with neurologic complication, with long-term current use of insulin E11.49; Z79.4 Fatigue R53.83 Shortness of breath R06.02 Elevated troponin R77.8 S/P CABG (coronary artery bypass graft) Z95.1 Paroxysmal atrial fibrillation I48.0 Presence of cardiac pacemaker Z95.0 Hyperlipidemia E78.5 Hypertension I15.0 Hypertension type: renovascular hypertension COVID-19 U07.1 (1) Hypertension Hypertension type: renovascular hypertension Qualified Code(s): I15.0 - Renovascular hypertension
--- NOTE | 2021-02-23 17:42 | Hospitalist Progress Note ---
Date of Service February 23, 2021 Assessment & Plan (1) Goals of care, counseling/discussion: Plan: Patient has been transitioned to comfort measures only and has discontinued hemodialysis Given renal dysfunction, use IV Dilaudid as needed for pain and breathlessness -Continue Ativan PRN agitation or anxiety fluids and antibiotics stopped, no more lab draws or glucose checks Glycopyrrolate and atropine drops as needed for secretions Given the patient has not had dialysis since 02/16, she will most likely pass away within the next week Discussed care with daughter, Maren, on phone on 02/22--> she said that family said their goodbyes when pt was able to speak and do not wish to come back in for daily visitation at this time (2) Aspiration pneumonia: Plan: CT chest showed consolidation in lung bases, more on left (she tends to lean to left side) NPO, could not participate with swallow evaluation on 02/18 but she is aspirating at the bedside with any attempt at swallowing she is incredibly weak, difficult time coughing up anything, rattle in back of her throat treated with Cefepime and Flagyl, now stopped, on MEMBERSHIP ADVISOR DNR, DNI, as previously discussed with daughter Maren who is medical POA (3) Hypoxia: Plan: acute hypoxic respiratory failure secondary to aspiration pneumonia, but also tested positive [id number] seems more consistent with aspiration than viral pneumonia Continue supplemental O2 and IV Dilaudid as needed for comfort MEMBERSHIP ADVISOR (4) ESRD (end stage renal disease) on dialysis: Plan: initially got HD 02/14 and 02/16, then too weak and sick on 02/18 transitioned to MEMBERSHIP ADVISOR no labs likely pass away in days as no HD since 02/16 (5) Acute on chronic heart failure with normal ejection fraction: Plan: removed fluid with HD, but symptoms did not improve echo with EF of 55% and MR, no new wall motion changes now on MEMBERSHIP ADVISOR (6) Controlled diabetes mellitus with neurologic complication, with long-term current use of insulin: Plan: stop checking sugars (7) Fatigue: Plan: profound weakness, cannot cough (8) Shortness of breath: Plan: due to pneumonia (9) Elevated troponin: Plan: initially treated like she had STEMI, troponin 1.0 gave heparin for 72 hours, never had chest pain while here, had CP prior to admission no changes on Echo (10) S/P CABG (coronary artery bypass graft): (11) Paroxysmal atrial fibrillation: (12) Presence of cardiac pacemaker: (13) Hyperlipidemia: (14) Hypertension: (15) COVID-19: Plan: Remains on precautions, but could come off precautions on 02/24 Admission and Anticipated Discharge Date Admission Date: February 13, 2021 Subjective remains obtunded Review of Systems Review of Systems: Unobtainable due to reduced consciousness Physical Exam Constitutional: well developed; no acute distress Respiratory: normal respiratory effort PG Care Time/CCT Total # of Minutes Spent Total Time Spent with Patient: Total time spent is greater than 50% in coordination of care (as documented) at patient's floor/unit and/or counseling patient: Coding Level of Care Code 32934 Subseq Hosp Care Lvl 1 Diagnoses Goals of care, counseling/discussion Z71.89 Aspiration pneumonia J69.0 Hypoxia R09.02 ESRD (end stage renal disease) on dialysis N18.6; Z99.2 Acute on chronic heart failure with normal ejection fraction I50.33 Controlled diabetes mellitus with neurologic complication, with long-term current use of insulin E11.49; Z79.4 Fatigue R53.83 Shortness of breath R06.02 Elevated troponin R77.8 S/P CABG (coronary artery bypass graft) Z95.1 Paroxysmal atrial fibrillation I48.0 Presence of cardiac pacemaker Z95.0 Hyperlipidemia E78.5 Hypertension I15.0 Hypertension type: renovascular hypertension COVID-19 U07.1 (1) Hypertension Hypertension type: renovascular hypertension Qualified Code(s): I15.0 - Renovascular hypertension
[2021-02-23] MEDS: HYDROmorphone INJ 0.5 MG/0.5 ML SYR IV PRN ×2 (19:30→22:56)
[2021-02-24] MEDS: HYDROmorphone INJ 0.5 MG/0.5 ML SYR IV PRN (03:23)
--- NOTE | 2021-02-24 14:08 | Hospitalist Progress Note ---
Date of Service February 24, 2021 Assessment & Plan (1) Goals of care, counseling/discussion: Plan: Patient has been transitioned to comfort measures only and has discontinued hemodialysis Given renal dysfunction, use IV Dilaudid as needed for pain and breathlessness -Continue Ativan PRN agitation or anxiety fluids and antibiotics stopped, no more lab draws or glucose checks Glycopyrrolate and atropine drops as needed for secretions Given the patient has not had dialysis since 02/16, she will most likely pass away within the next week Discussed care with daughter, Maren, on phone on 02/22--> she said that family said their goodbyes when pt was able to speak and do not wish to come back in for daily visitation at this time (2) Aspiration pneumonia: Plan: CT chest showed consolidation in lung bases, more on left (she tends to lean to left side) NPO, could not participate with swallow evaluation on 02/18 but she is aspirating at the bedside with any attempt at swallowing she is incredibly weak, difficult time coughing up anything, rattle in back of her throat treated with Cefepime and Flagyl, now stopped, on CRUDE TESTER DNR, DNI, as previously discussed with daughter Maren who is medical POA (3) Hypoxia: Plan: acute hypoxic respiratory failure secondary to aspiration pneumonia, but also tested positive [id number] seems more consistent with aspiration than viral pneumonia Continue supplemental O2 and IV Dilaudid as needed for comfort CRUDE TESTER (4) ESRD (end stage renal disease) on dialysis: Plan: initially got HD 02/14 and 02/16, then too weak and sick on 02/18 transitioned to CRUDE TESTER no labs likely pass away in days as no HD since 02/16 (5) Acute on chronic heart failure with normal ejection fraction: Plan: removed fluid with HD, but symptoms did not improve echo with EF of 55% and MR, no new wall motion changes now on CRUDE TESTER (6) Controlled diabetes mellitus with neurologic complication, with long-term current use of insulin: Plan: stop checking sugars (7) Fatigue: Plan: profound weakness, cannot cough (8) Shortness of breath: Plan: due to pneumonia (9) Elevated troponin: Plan: initially treated like she had STEMI, troponin 1.0 gave heparin for 72 hours, never had chest pain while here, had CP prior to admission no changes on Echo (10) S/P CABG (coronary artery bypass graft): (11) Paroxysmal atrial fibrillation: (12) Presence of cardiac pacemaker: (13) Hyperlipidemia: (14) Hypertension: (15) COVID-19: Plan: now off COIVD precautions today Admission and Anticipated Discharge Date Admission Date: February 13, 2021 Subjective remains obtunded Review of Systems Review of Systems: Unobtainable due to reduced consciousness Physical Exam Constitutional: well developed; no acute distress Respiratory: normal respiratory effort Cardiovascular: Extremities: + edema (anasarca) PG Care Time/CCT Total # of Minutes Spent Total Time Spent with Patient: Total time spent is greater than 50% in coordination of care (as documented) at patient's floor/unit and/or counseling patient: Coding Level of Care Code 60841 Subseq Hosp Care Lvl 1 Diagnoses Goals of care, counseling/discussion Z71.89 Aspiration pneumonia J69.0 Hypoxia R09.02 ESRD (end stage renal disease) on dialysis N18.6; Z99.2 Acute on chronic heart failure with normal ejection fraction I50.33 Controlled diabetes mellitus with neurologic complication, with long-term current use of insulin E11.49; Z79.4 Fatigue R53.83 Shortness of breath R06.02 Elevated troponin R77.8 S/P CABG (coronary artery bypass graft) Z95.1 Paroxysmal atrial fibrillation I48.0 Presence of cardiac pacemaker Z95.0 Hyperlipidemia E78.5 Hypertension I15.0 Hypertension type: renovascular hypertension COVID-19 U07.1 (1) Hypertension Hypertension type: renovascular hypertension Qualified Code(s): I15.0 - Renovascular hypertension
--- NOTE | 2021-02-24 14:44 | Death Pronouncement Note ---
Date of Service February 24, 2021 Pronouncement Note Admission Date Admission Date: February 13, 2021 Date and Time of Date of : 02/24/21 Time of : 14:35 PCOD Preliminary cause of : Aspiration pneumonia Contributing Factors (1) Aspiration pneumonia: (2) COVID-19: (3) ESRD (end stage renal disease) on dialysis: (4) Hypoxia: (5) Acute on chronic heart failure with normal ejection fraction: (6) Controlled diabetes mellitus with neurologic complication, with long-term cu rrent use of insulin: (7) Fatigue: (8) Shortness of breath: (9) Elevated troponin: (10) S/P CABG (coronary artery bypass graft): (11) Paroxysmal atrial fibrillation: (12) Presence of cardiac pacemaker: (13) Hyperlipidemia: (14) Hypertension: (15) Goals of care, counseling/discussion: Hospital Course Hospital Course: see discharge summary Summary Additional details: see discharge summary Additional Data Confirmation of : no pulse, no respirations, no heart sounds and pupils fixed and dilated Family: contacted Attending/PCP notified?: Yes Attending physician: Lilliana To MD Was code activated?: No Autopsy requested?: No grazing examiner notified?: No Coding Level of Care Code None Diagnoses Goals of care, counseling/discussion Z71.89 Aspiration pneumonia J69.0 Hypoxia R09.02 ESRD (end stage renal disease) on dialysis N18.6; Z99.2 Acute on chronic heart failure with normal ejection fraction I50.33 Controlled diabetes mellitus with neurologic complication, with long-term current use of insulin E11.49; Z79.4 Fatigue R53.83 Shortness of breath R06.02 Elevated troponin R77.8 S/P CABG (coronary artery bypass graft) Z95.1 Paroxysmal atrial fibrillation I48.0 Presence of cardiac pacemaker Z95.0 Hyperlipidemia E78.5 Hypertension I15.0 Hypertension type: renovascular hypertension COVID-19 U07.1
--- NOTE | 2021-02-24 14:49 | Discharge Summary ---
Date of Service February 24, 2021 Admission HPI Per Admitting Provider 86-year-old female with a past medical history of CAD s/p CABG, IDDM, ESRD, paroxysmal A. fib status post pacemaker placement, who presents to emergency department for global weakness and fatigue. She states that this been going on for about a day. She denies any recent falls or memorable events to it caused her fatigue. She does note that 6 days ago when she was at dialysis she had a "angina attack" that she was given a sublingual nitro for that treated the episode. She stated that the pain only lasted for a few minutes. She did not go to the hospital or get any follow-up cardiac care after that event.She currently denies any chest pressure or chest pain or trouble breathing. She does attest to chills but denies any recent fevers. She has no myalgias or joint pain. She notes that she does have swelling in her legs that is normal she has not noticed it getting any worse. She denies any abdominal pain, pain with taking a deep breath. She is coughing. She has not been able to take her medications today and attends dialysis on Sunday. Principal Diagnosis Aspiration pneumonia, Covid-19, ESRD on hemodialysis Discharge Exam Constitutional Pronounced as per pronouncement Discharge Data Allergies Allergy/AdvReac Type Severity Reaction Status Date / Time carbamazepine Allergy Intermediate RASH Verified 02/13/21 17:45 erythromycin base Allergy Intermediate RASH Verified 02/13/21 17:45 carvedilol AdvReac Intermediate DIZZINESS, Verified 02/13/21 17:45 VISUAL DISTURBANCES Asatgvz-CJR-HrS Reductase AdvReac Intermediate MUSCLE Verified 02/13/21 17:45 Inhibitor ACHES [Cgsspnm-Xso-Vjg Reductase Inhibitor] Consultations 02/13/21 20:19 ED Decision to Admit Stat 02/13/21 20:31 Consult Nephrology Routine 02/13/21 21:41 Consult Cardiology Routine Ordered Studies 02/13/21 17:25 CT head/brain wo con Stat 02/17/21 11:12 CT abd pelvis IV con only Urgent CT chest diagnostic w con Urgent CT lumbar spine w con Urgent Hospital Course (1) Aspiration pneumonia: CT chest showed consolidation in lung bases, more on left (she tends to lean to left side) NPO, could not participate with swallow evaluation on 02/18 but she is aspirating at the bedside with any attempt at swallowing she is incredibly weak, difficult time coughing up anything, rattle in back of her throat treated with Cefepime and Flagyl, now stopped, on SENIOR SUSTAINABILITY CONSULTANT DNR, DNI, as previously discussed with daughter Maren who is medical POA Patient peacefully on 02/24/21 at 1435 (2) COVID-19: (3) ESRD (end stage renal disease) on dialysis: initially got HD 02/14 and 02/16, then too weak and sick on 02/18 transitioned to SENIOR SUSTAINABILITY CONSULTANT after deciding she no longer wanted to pursue hemodialysis (4) Hypoxia: acute hypoxic respiratory failure secondary to aspiration pneumonia, but also tested positive [id number] seems more consistent with aspiration than viral pneumonia Received supplemental O2 and IV Dilaudid as needed for comfort SENIOR SUSTAINABILITY CONSULTANT (5) Acute on chronic heart failure with normal ejection fraction: removed fluid with HD, but symptoms did not improve echo with EF of 55% and MR, no new wall motion changes now on SENIOR SUSTAINABILITY CONSULTANT (6) Controlled diabetes mellitus with neurologic complication, with long-term current use of insulin: stop checking sugars (7) Fatigue: profound weakness, cannot cough (8) Shortness of breath: due to pneumonia (9) Elevated troponin: initially treated like she had STEMI, troponin 1.0 gave heparin for 72 hours, never had chest pain while here, had CP prior to admission no changes on Echo (10) S/P CABG (coronary artery bypass graft): (11) Paroxysmal atrial fibrillation: (12) Presence of cardiac pacemaker: (13) Hyperlipidemia: (14) Hypertension: (15) Goals of care, counseling/discussion: Patient has been transitioned to comfort measures only and has discontinued hemodialysis on 02/24/21 at 1435 Total Time Total Time Spent Total Time Spent (In Minutes): 20 minutes Discharge Plan Discharge Items Patient Disposition: Other Date/Time: 02/24/21 14:35 Coding Level of Care Code D/C DAY MANAGEMENT <30 MINS Diagnoses Aspiration pneumonia J69.0 COVID-19 U07.1 ESRD (end stage renal disease) on dialysis N18.6; Z99.2 Hypoxia R09.02 Acute on chronic heart failure with normal ejection fraction I50.33 Controlled diabetes mellitus with neurologic complication, with long-term current use of insulin E11.49; Z79.4 Fatigue R53.83 Shortness of breath R06.02 Elevated troponin R77.8 S/P CABG (coronary artery bypass graft) Z95.1 Paroxysmal atrial fibrillation I48.0 Presence of cardiac pacemaker Z95.0 Hyperlipidemia E78.5 Hypertension I15.0 Hypertension type: renovascular hypertension Goals of care, counseling/discussion Z71.89
== END 2021-02-24 16:45 | disposition expired | DRG 291 ==
LOC: ED 16:31 → 2S 20:22 → SUATTDRO 20:22 → 2S 21:54 → 2E 02-18 05:42 → 2W 02-19 17:40